=== PATIENT | female | born 1945 | race Caucasian/White ===

== ENCOUNTER 2016-08-11 05:49 | Outpatient (CLI) | payer MEDICARE ==
[~2016-08-11] VITALS: Ht 162.6 cm; Wt 63.5 kg
[~2016-08-11 05:49] MED LIST: AC325T PO; ALBU8.5H4 IH; ALBUTEROL INH; AMLO10TA4 PO; AMLO10TA82 PO; ASP325T PO; ASP325TEC; ASP81TEC PO; ASPI325T4 PO; ATR20T PO; BISO1TAB6; BPR75T PO; BUPR-168 PO; BUPR450T PO; CALC0.253 PO; CARB1TAB40; CARV12.53 PO; CARV6.25 PO; CHOL200035 PO; CHOL500019 PO; CHOL50003 PO; CLON-378 PO; CLOP75TA PO; CLPD75T PO; D50KC PO; DCS100C PO; DIPY75TA PO; DOXY100C2; ENDUR-ACIN PO; ERGO500028 PO; ESOM20SU; ESZO3TAB30 PO; FLC1T PO; FLT05NA16 NSEACH; FLUO40CA; FLUO40CA PO; FLUT16SP22 NSEACH; FOLATE PO; FURO20TA4 PO; HYDR-3583 PO; HYOS0.1217 PO; KCL20TCR; LRT10T PO; MIRT45TA5 PO; MNTL10T PO; MONT10TA21 PO; MRTZ30T1 PO; NEBI5TAB8; NF-ESOM40C PO; NFCHLORT25 PO; NIAC1CAP PO; NISO17TA; OMG1KC; PANT40TA PO; PNT400TCR PO; PNT40TEC PO; POLY17PO23 PO; PRAV10TA23; PRAV10TA23 PO; PRAV80TA2 PO; PROP1TAB2 PO; PROP1TAB77 PO; QUET150T PO; SERT50TA2 PO; SUCR1TAB; SULF1TAB7; SYMBICORT INH; TELM1TAB; TRAM-21 PO; TRAZ150T42; TRENTAL; VENL150C; VNL75T PO; ZLP10T PO; [UNRECOGNIZED DRUG - OTHER]; enduracin
[2016-08-11] MEDS ORDERED: AMLO5TAB2 PO (14:40)
[2016-08-11] MEDS ORDERED: CALC0.253 PO (14:40)
[2016-08-11] MEDS ORDERED: FLUO40CA PO (14:40)
[2016-08-11] MEDS ORDERED: NIAC500T24 PO (14:40)
[2016-08-11] MEDS ORDERED: LATA2.5D5 OU (14:40)
[2016-08-11] MEDS ORDERED: CLOP75TA28 PO (14:40)
[2016-08-11] MEDS ORDERED: PENT400T2 PO (14:40)
[2016-08-11] MEDS ORDERED: CARV25TA PO (14:40)
[2016-08-13] MEDS ORDERED: DEXL60CA PO (12:31)
[2016-08-13] MEDS ORDERED: SUCR1TAB36 PO (12:31)
== END 2016-08-11 14:46 ==
LOC: PREOP 05:49
PROVIDERS: ATTEND Surgery Pediatric Surgery
DX: Z01.818 Encounter for other preprocedural examination (principal); R63.4 Abnormal weight loss; Z86.010 Personal history of colon polyps; Z87.11 Personal history of peptic ulcer disease

== ENCOUNTER 2016-08-13 10:34 | Day surgery (SDC) | payer MEDICARE ==
[~2016-08-13] VITALS: Ht 162.6 cm; Wt 63.5 kg
[~2016-08-13 10:34] MED LIST changes: +AMLO5TAB2 PO; +CARV25TA PO; +CLOP75TA28 PO; +LATA2.5D5 OU; +NIAC500T24 PO; +PENT400T2 PO
[2016-08-13] MEDS ORDERED: HURRICAINE EXT TUBE (BENZOCAINE) XX PRN (10:45)
[2016-08-13] MEDS ORDERED: FLUMAZENIL (ROMAZICON) 0.1 MG/ML 5 ML VIAL INJ PRN (10:45)
[2016-08-13] MEDS ORDERED: LIDOCAINE JELLY 2% (XYLOCAINE) 5 ML TUBE MM PRN (10:45)
[2016-08-13] MEDS ORDERED: NALOXONE 0.4 MG/ML 1 ML (NARCAN) VIAL IVP PRN (10:45)
[2016-08-13] MEDS: NS IV 500 ML 500 ML IV PRN ×2 (10:57→11:30)
[2016-08-13 11:05] VITALS: BP 133/84
--- NOTE | 2016-08-13 11:17 | Conscious Sedation/ASA ---
Conscious Sedation Pre-Proced Time Reviewed: 11:00 ASA Class: 2 Airway Mallampati Classification: ([place] appropriate class) I. II. III, IV Lungs Heart ASA score ASA 1: a normal healthy patient ASA 2: a patient with a mild systemic disease (mid diabetes, controlled hypertension, obesity ASA 3: a patient with a severe systemic disease that limits activity (angina , COPD, prior Myocardial infarction) ASA 4: a patient with an incapacitating disease that is a constant threat to life (CHF, renal failure) ASA 5: a moribund patient not expected to survive 24 hrs. (ruptured aneurysm) ASA 6: a declared brain patient whose organs are being harvested. For emergent operations, add the letter E after the classification Grade 2 Sedation Plan: Analgesia, Amnesia, Plan communicated to team members, Discussed options with patient/fam, Discussed risks with patient/fam Note The patient is an appropriate candidate to undergo the planned procedure, sedation, and anesthesia. The patient immediately re-assessed prior to indication. NADIA BARTHOLOMEW MD August 13, 2016 11:17 am
--- NOTE | 2016-08-13 11:18 | Progress Note-Pre Operative ---
Pre-Operative Progress Note H&P Reviewed The H&P was reviewed, patient examined and no changes noted. Date H&P Reviewed: August 13, 2016 Time H&P Reviewed: 11:00 Pre-Operative Diagnosis: PUD, weight loss NADIA BARTHOLOMEW MD August 13, 2016 11:18 am
[2016-08-13] MEDS ORDERED: fentaNYL INJECTION 100 MCG/2 ML AMP ONE ×2 (11:21)
[2016-08-13] MEDS ORDERED: MIDAZOLAM 2 MG/2 ML (VERSED) VIAL ONE ×4 (11:21→12:00)
[2016-08-13] MEDS ORDERED: LIDOCAINE JELLY 2% (XYLOCAINE) 5 ML TUBE ONE (11:21)
[2016-08-13] MEDS ORDERED: HURRICAINE EXT TUBE (BENZOCAINE) ONE (11:22)
[2016-08-13] MEDS ORDERED: NS IV 500 ML 500 ML ONE (11:22)
[2016-08-13] MEDS: fentaNYL INJECTION 100 MCG/2 ML AMP IVP PRN ×4 (11:25→11:55)
[2016-08-13] MEDS ORDERED: ONDANSETRON 4 MG/2 ML (SDV) Z0FRAN IV PRN (11:30)
[2016-08-13] MEDS ORDERED: HYDROcodone/APAP 5 MG/325 MG (LORTAB) TAB PO PRN (11:30)
[2016-08-13] MEDS ORDERED: ACETAMINOPHEN 325 MG TABLET/CAPLET (TYLENOL) PO PRN (11:30)
[2016-08-13] MEDS ORDERED: morphine INJ 10 MG/ML 1ML (SYR OR VIAL) IV PRN (11:30)
[2016-08-13] MEDS: MIDAZOLAM 2 MG/2 ML (VERSED) VIAL IVP PRN ×4 (11:32→11:57)
--- NOTE | 2016-08-13 12:29 | Progress Note-Post Operative ---
Post-Operative Progess Note Surgeon (s)/Unit Manager (s) Surgeon NADIA BARTHOLOMEW MD Unit Manager: none Pre-Operative Diagnosis PUD, weight loss Post-Operative Diagnosis reflux esophagitis(class B), fundal wrap edema/mass, severe gastritis. chronic stage 2 ext and int hemorrhoids, mild-moderate sigmoid diverticulosis. Procedure & Operative Findings Date of Procedure 08/13/16 Procedure Performed/Findings EGD with bx. Colonoscopy Anesthesia Type GET Estimated Blood Loss Estimated blood loss (mL): minimal Specimens/Packing Specimens Removed GE jxn, fundal wrap mass, antrum NADIA BARTHOLOMEW MD August 13, 2016 12:29 pm
[2016-08-13] MEDS ORDERED: SUCR1TAB36 PO (12:31)
[2016-08-13] MEDS ORDERED: DEXL60CA PO (12:31)
--- NOTE | 2016-08-13 12:31 | Discharge Inst-Surgical ---
D/C Lap Instructions-KIDO New, Converted, or Re-Newed RX: RX on Chart Follow Up Appt in 4 weeks Activity as tolerated High Fiber Diet 25g or more per day Avoid Alcohol, Caffeine, Spicy [place] and Acid foods. Drink 64 fluid oz or more of fluids per day. Symptoms to Report: Fever over 101 degree F, Nausea/Vomiting If any problems/questions: Contact your physician or go to Emergency Room NADIA BARTHOLOMEW MD August 13, 2016 12:31 pm
[2016-08-13 12:40] VITALS: BP 125/73
[2016-08-13 13:10] VITALS: BP 127/73
[2016-08-13 13:19] VITALS: BP 133/84
--- NOTE | 2016-08-14 01:36 | OPERATIVE REPORT ---
DATE OF SERVICE: 08/13/2016 ATTENDING PRIMARY CARE PHYSICIAN: Dr. Oriana Watts PREOPERATIVE DIAGNOSES: Peptic ulcer disease, weight loss. POSTOPERATIVE DIAGNOSES: Reflux esophagitis class B, intact wrap, however, there was edema versus a mass identified at the fundal wrap location. Severe diffuse gastritis. Chronic stage II external and internal hemorrhoids, mild to moderate sigmoid diverticulosis. PROCEDURE: EGD with biopsy, colonoscopy. SURGEON: Dr. Nadia Bartholomew ANESTHESIA: Conscious sedation. ESTIMATED BLOOD LOSS: Minimal. FINDINGS EGD: Reflux esophagitis class B. Intact wrap; however, along the fundal wrap portion there appeared to be edema of the mucosa versus a mass, which was biopsied. There was also a severe diffuse gastritis; however, no formal ulcers. Pylorus and duodenum appeared normal. Colonoscopy: Chronic stage II external internal hemorrhoids. No actively edematous, not inflamed, and no bleeding. Mild to moderate sigmoid diverticulosis with no inflammatory changes. No polyps identified. DISPOSITION: The patient tolerated the procedure well. INDICATIONS: The patient is a 71-year-old female with fatigue and a 40-pound weight loss in the past 6 months. She had lab work done, which was normal. She reports that she did have a colonoscopy approximately 5 years ago and this was normal; however, previous colonoscopies did show a benign polyp in the past. She reports that she has had multiple issues with reflux as well as peptic ulcer disease. She also reports a history of duodenal ulcers. She did undergo a hiatal hernia repair with revision as well. The patient was brought to the endoscopy suite, laid in the left lateral decubitus position. After adequate IV pain and sedating medications and conscious sedation, anesthesia, the mouthpiece was applied. The endoscope was then placed in the mouth visualizing the pharynx and hypopharyngeal region. Vocal cords, epiglottis, and vallecula identified and appeared to be normal. The endoscope was then gently intubated in the esophageal opening, and the esophagus was insufflated. The endoscope was then advanced to the first, second, and third portions of the esophagus. At the level of the GE junction, reflux esophagitis class B identified. There were no strictures identified in this region. A biopsy was taken with forceps with visualization of good hemostasis. The endoscope was then advanced into the stomach and the endoscope retroflexed. There were anatomical changes consistent with a previous antireflux procedure. Of the fundal wrap portion, the mucosa appeared to be edematous or a mass was identified. This was biopsied using forceps with visualization of good hemostasis. A severe diffuse gastritis was also noted. There were no formal ulcers, polyps, or any neoplasms were identified. A biopsy was taken of the stomach, antrum with forceps with visualization of good hemostasis. The endoscope was then advanced to the pylorus and the first and second portions of the duodenum, which appeared normal with no distal obstructions. The endoscope was then slowly withdrawn taking a second look and suctioning of residual air with no additional findings. The patient tolerated this portion of the procedure well. We will recommend the necessary lifestyle and diet accommodation including small and more frequent meals, avoidance of eating at night as well as head elevation while lying supine. She also needs to avoid caffeinated beverages, spicy, greasy, and acidic foods. We will also start her on Dexilant 60 mg daily as well as Carafate 1 g q.i.d. for the next 2 weeks then on a p.r.n. basis. We will also await the biopsy results. Under the same conscious sedation anesthesia, we then proceeded with a colonoscopy portion of the procedure. Chronic stage II external and internal hemorrhoids were identified, which were not actively edematous, nor inflamed, and no bleeding. Normal sphincter tone was felt and there were no palpable masses. Then endoscope was then intubated into the anus and rectum, gently insufflated. The endoscope was then advanced to the valves of [place] of the rectum with no polyps or any neoplasms identified. Through the sigmoid colon, a mild to moderate sigmoid diverticulosis identified. There were no mucosal inflammatory changes to indicate any active diverticulitis. The endoscope was then advanced through the descending, transverse, and ascending colon to the cecum. These segments were normal. There were no polyps or any neoplasms identified throughout the colon or rectum. The endoscope was then slowly withdrawn while taking a second look and suctioning of residual air with no additional findings. The patient tolerated the procedure well. We will have her continue with medical management with a high fiber diet with at least 25 grams of fiber per day, as well as at least 64 fluid ounces of water daily to promote soft stools on a daily basis. No polyps were identified and she does not report any family history of colon cancer. She may wait for another 7 to 10 years for next colonoscopy unless she becomes symptomatic. Job ID: [id number] DocumentID: [id number] Dictated Date: 08/13/2016 12:22:32 Publications Production Supervisor Date: 08/14/2016 01:08:32 Dictated By: NADIA BARTHOLOMEW MD
== END 2016-08-13 13:18 | disposition home or self-care (01) ==
LOC: ENDO 10:34
PROVIDERS: ATTEND Surgery Pediatric Surgery
DX: K21.0 Gastro-esophageal reflux disease with esophagitis (principal); K29.70 Gastritis, unspecified, without bleeding; K57.30 Diverticulosis of large intestine without perforation or abscess without bleeding; K64.1 Second degree hemorrhoids; R63.4 Abnormal weight loss; Z86.010 Personal history of colon polyps; Z87.11 Personal history of peptic ulcer disease; E78.5 Hyperlipidemia, unspecified; I10 Essential (primary) hypertension

== ENCOUNTER 2016-09-05 19:57 | Observation (INO) | payer MEDICARE ==
[~2016-09-05] VITALS: Ht 162.6 cm; Wt 69.9 kg
[~2016-09-05 19:57] MED LIST changes: +DEXL60CA PO; +SUCR1TAB36 PO
--- NOTE | 2016-09-05 20:26 | ED General ---
General Stated Complaint: DISORIENTED,LATHARGIC Source of Information: Family (DAUGHTER GIVES ALL INFORMATION) Exam Limitations: Other (PT UNABLE TO GIVE ANY RELEVANT INFORMATION AT THIS TIME) History of Present Illness Time Seen by Provider: 20:25 Initial Comments PT ARRIVES VIA POV FROM HOME PT IS UNABLE TO GIVE ANY RELEVANT INFORMATION AT THIS TIME DAUGHTER STATES THAT SHE TALKED WITH PT ON PHONE LASE EVENING AND PATIENT APPEARED NORMAL THIS EVENING SHE WENT TO SEE HER, AND FOUND HER SITTING IN A CHAIR, PROFUSELY DIAPHORETIC, VERY CONFUSED/DISORIENTED AND VERY LETHARGIC PT HAS NO RECOLLECTION OF ANY OF TODAY'S EVENTS PT DID VOID JUST PRIOR TO ARRIVAL, PER DAUGHTER PT DENIES PAIN ANYWHERE DENIES SHORTNESS OF BREATH DENIES NAUSEA/VOMITING/DIARRHEA DENIES HEADACHE DENIES ABDOMINAL PAIN DENIES VISION CHANGES DENIES DIZZINESS DENIES PARESTHESIAS OR MOTOR DEFICITS. DAUGHTER STATES THAT PT HAS HAD 4 STROKES AND MULTIPLE TIA'S BUT THIS IS NOT SAME SYMPTOMS LAST CVA, PT HAD RESOLUTION OF RIGHT ARM WEAKNESS AFTER BEING GIVEN TPA PCP: DR. WILKINSON PHYSICAL MEDICINE SPECIALIST: DR. MARTINEZ Allergies and Home Medications Allergies Coded Allergies: No Known Drug Allergies (Verified , 09/08/12) Home Medications Amlodipine Besylate 5 Mg Tablet, 5 MG PO HS, (Reported) Aspirin 81 Mg Tabec, 81 MG PO HS, (Reported) Atorvastatin 20 Mg Tablet, 20 MG PO HS, (Reported) Calcitriol 0.25 Mcg Capsule, 0.25 MCG PO MO,WE,FR @ HS, (Reported) Carvedilol 25 Mg Tablet, 25 MG PO BID, (Reported) Clopidogrel Bisulfate 75 Mg Tablet, 75 MG PO DAILY, (Reported) Dexlansoprazole 60 Mg Cap.bp, 60 MG PO DAILY, #30 Prescribed by: NADIA BARTHOLOMEW on 08/13/16 1231 Fluoxetine HCl 40 Mg Capsule, 40 MG PO BID, (Reported) Latanoprost 2.5 Ml Drops, 1 DROP OU HS, (Reported) Montelukast Sodium 10 Mg Tablet, 10 MG PO HS, (Reported) Niacinamide 500 Mg Tablet, 500 MG PO BID, (Reported) Pantoprazole Sodium 40 Mg Tablet.dr, 40 MG PO HS, (Reported) Pentoxifylline 400 Mg Tablet.er, 400 MG PO DAILY, (Reported) Sucralfate 1 Gm Tablet, 1 GM PO QID, #120 Prescribed by: NADIA BARTHOLOMEW on 08/13/16 1231 Constitutional: see HPI, diaphoresis, malaise, weakness EENTM: no symptoms reported Respiratory: no symptoms reported, No cough, No short of breath Cardiovascular: no symptoms reported Gastrointestinal: no symptoms reported, No abdominal pain, No diarrhea, No nausea, No vomiting Genitourinary: no symptoms reported Musculoskeletal: no symptoms reported, No back pain, No joint pain, No muscle pain, No neck pain Skin: no symptoms reported Psychiatric/Neurological: See HPI, Denies Headache, Denies Numbness, Denies Paresthesia, Denies Seizure, Denies Tingling, Denies Tremors, Denies Weakness, Other (CONFUSION/DISORIENTED) Hematologic/Lymphatic: No Symptoms Reported Immunological/Allergic: no symptoms reported Past Tgmjuzp-Ntjbim-Mefxde Hx Patient Social History Alcohol Use: Denies Use Recreational Drug Use: No Smoking Status: Former Smoker (QUIT 10 YEARS AGO) Type Used: Cigarettes Recent Foreign Travel: No Contact w/Someone Who Travel: No Recent Hopitalizations: No Immunizations Up To Date Tetanus Booster (TDap): More than 5yrs PED Vaccines UTD: Yes Date of Pneumonia Vaccine: Nov 19, 2013 Date of Influenza Vaccine: Nov 19, 2013 Seasonal Allergies Seasonal Allergies: Yes Surgeries HX Surgeries: Yes (APPENDECTOMY, HIATAL HERNIA, GI bleed cauterized; COLONOSCOPY/EGD) Surgeries: Abdominal, Appendectomy, Tonsillectomy Respiratory Hx Respiratory Disorders: No Cardiovascular Hx Cardiac Disorders: Yes Cardiac Disorders: Heart Murmur, Hypertension Neurological Hx Neurological Disorders: Yes (CVA X 4, 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) Neurological Disorders: Stroke, TIA 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 System Hx 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 Disorders: No Sexually Transmitted Disease: No HIV/AIDS: No Female 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 Disorders: Denies [employer] History: Menopausal Genitourinary Hx Genitourinary Disorders: Yes (one "small kidney") Genitourinary Disorders: Renal Failure Gastrointestinal Hx Gastrointestinal Disorders: Yes Gastrointestinal Disorders: Gastroesophageal Reflux, Polyps, Hiatal Hernia, Ulcer Musculoskeletal Hx Musculoskeletal Disorders: Yes Musculoskeletal Disorders: Arthritis Endocrine Hx Endocrine Disorders: No HEENT HX ENT Disorders: Yes HEENT Disorders: Cataract, Glaucoma Hearing Impairment: Denies Cancer Hx Cancer: No Psychosocial Hx Psychiatric Problems: Yes Behavioral Health Disorders: Anxiety Integumentary HX Skin/Integumentary Disorder: No Blood Transfusions Hx Blood Disorders: Yes (Anemia) Adverse Reaction to a Blood Tr: No Family Medical History Family Medial History: FH: CVA (cerebrovascular accident) G8 BROTHER G8 SISTER FH: breast cancer 19 MOTHER FH: cancer 19 FATHER Hypertension 19 MOTHER Physical Exam Vital Signs Vital Sign - Last 12Hours 09/05/16 20:16 Temp 95.2 Pulse 61 Resp 18 B/P (MAP) 127/73 Pulse Ox 94 O2 Delivery Nasal Cannula O2 Flow Rate 2.00 Capillary Refill : General Appearance: No Apparent Distress, WD/WN, Other (PT SLEEPING SOUNDLY, SNORING AT TIMES. PT IS EASILY AWAKENED WITH VERBAL STIMULI, BUT IS VERY DROWSY/ LETHARGIC, GENERALIZED WEAKNESS--EVEN VOICE IS WEAK. ) HEENT: PERRL/EOMI Neck: Full Range of Motion, Normal Inspection, Non Tender, Supple, No JVD Respiratory: Normal Breath Sounds, No Accessory Muscle Use, No Respiratory Distress Cardiovascular: Regular Rate, Rhythm, No Edema, No JVD, No Murmur, Normal Peripheral Pulses Gastrointestinal: Normal Bowel Sounds, No Organomegaly, No Pulsatile Mass, Non Tender, Soft Back: No CVA Tenderness Extremity: Normal Capillary Refill, Normal Inspection, Normal Range of Motion, Non Tender, No Calf Tenderness, No Pedal Edema Neurologic/Psychiatric: No Motor/Sensory Deficits, pathology teacher II-XII Norm as Tested, Other ( ABOVE. PT ORIENTED TO PERSON, KNOWS SHE IS IN HOSPITAL, BUT CONFUSED TO DATE/TIME/EVENTS OF TODAY. ) Skin: Normal Color, Warm/Dry Focused Exam Lactic Acid Level Progress/Results/Core Measures Results/Orders Lab Results Laboratory Tests Test 09/05/16 20:54 09/05/16 20:58 09/05/16 21:34 09/05/16 22:40 Range/Units White Blood Count 10.7 4.3-11.0 10^3/uL Red Blood Count 4.27 L 4.35-5.85 10^6/uL Hemoglobin 13.6 11.5-16.0 G/DL Hematocrit 42 35-52 % Mean Corpuscular Volume 99 80-99 FL Mean Corpuscular Hemoglobin 32 25-34 PG Mean Corpuscular Hemoglobin Concent 32 32-36 G/DL Red Cell Distribution Width 12.4 10.0-14.5 % Platelet Count 149 130-400 10^3/uL Mean Platelet Volume 9.8 7.4-10.4 FL Neutrophils (%) (Auto) 76 H 42-75 % Lymphocytes (%) (Auto) 13 12-44 % Monocytes (%) (Auto) 9 0-12 % Eosinophils (%) (Auto) 1 0-10 % Basophils (%) (Auto) 0 0-10 % Neutrophils # (Auto) 8.2 H 1.8-7.8 X 10^3 Lymphocytes # (Auto) 1.4 1.0-4.0 X 10^3 Monocytes # (Auto) 1.0 0.0-1.0 X 10^3 Eosinophils # (Auto) 0.1 0.0-0.3 10^3/uL Basophils # (Auto) 0.0 0.0-0.1 10^3/uL Prothrombin Time 11.7 L 12.2-14.7 SEC INR Comment 0.9 0.8-1.4 Activated Partial Thromboplast Time 23 L 24-35 SEC Sodium Level 144 135-145 MMOL/L Potassium Level 3.5 L 3.6-5.0 MMOL/L Chloride Level 113 H 98-107 MMOL/L Carbon Dioxide Level 19 L 21-32 MMOL/L Anion Gap 12 5-14 MMOL/L Blood Urea Nitrogen 13 7-18 MG/DL Creatinine 1.33 H 0.60-1.30 MG/DL Estimat Glomerular Filtration Rate 39 BUN/Creatinine Ratio 10 0-20 Glucose Level 84 70-105 MG/DL Calcium Level 9.8 8.5-10.1 MG/DL Magnesium Level 2.1 1.8-2.4 MG/DL Total Bilirubin 0.7 0.1-1.0 MG/DL Aspartate Amino Transf (AST/SGOT) 25 5-34 U/L Alanine Aminotransferase (ALT/SGPT) 20 0-55 U/L Alkaline Phosphatase 110 40-136 U/L Total Creatine Kinase 103 29-168 U/L Creatine Kinase MB 2.4 <6.6 NG/ML Troponin I < 0.30 <0.30 NG/ML Total Protein 6.7 6.4-8.2 GM/DL Albumin 4.1 3.2-4.5 GM/DL TSH [place] Testing 0.59 0.35-4.94 UIU/ML Glucometer 99 70-110 MG/DL Lactic Acid Level 1.13 0.50-2.00 MMOL/L Urine Color YELLOW Urine Clarity CLEAR Urine pH 5 5-9 Urine Specific Gill 1.020 1.016-1.022 Urine Protein 3+ H NEGATIVE Urine Glucose (UA) NEGATIVE NEGATIVE Urine Ketones 1+ H NEGATIVE Urine Nitrite NEGATIVE NEGATIVE Urine Bilirubin 1+ H NEGATIVE Urine Urobilinogen 1 NORMAL MG/DL Urine Leukocyte Esterase 1+ H NEGATIVE Urine RBC (Auto) NEGATIVE NEGATIVE Urine RBC NONE /HPF Urine WBC NONE /HPF Urine Squamous Epithelial Cells 0-2 /HPF Urine Crystals NONE /LPF Urine Bacteria NEGATIVE /HPF Urine Casts NONE /LPF Urine Mucus NEGATIVE /LPF Urine Culture Indicated NO My Orders Orders - BOBO LINN DO Saline Lock/Iv-Start (09/05/16 20:25) Ekg Tracing (09/05/16 20:25) Monitor-Rhythm Ecg Trace Only (09/05/16 20:25) Cbc With Automated Diff (09/05/16 20:25) Comprehensive Metabolic Panel (09/05/16 20:25) Creatine Kinase (09/05/16 20:25) Creatine Kinase Mb (09/05/16 20:25) Lactic Acid Analyzer (09/05/16 20:25) Magnesium (09/05/16 20:25) Protime With Inr (09/05/16 20:25) Partial Thromboplastin Time (09/05/16 20:25) Thyroid Analyzer (09/05/16 20:25) Troponin I (09/05/16 20:25) Ua Culture If Indicated (09/05/16 20:25) Blood Culture (09/05/16 20:25) Chest 1 View, Ap/Pa Only (09/05/16 20:25) Accucheck Stat ONCE (09/05/16 20:40) O2 (09/05/16 20:40) Ct Head Wo (09/05/16 21:13) Saline Lock/Iv-Start (09/05/16 22:03) Ns Iv 1000 Ml (Sodium Chloride 0.9%) (09/05/16 22:03) Ceftriaxone Injection (Rocephin Injectio (09/05/16 23:30) Medications Given in ED Current Medications Medications Dose Ordered Sig/[place]nd[place] Route Start Time Stop Time Status Last Admin Dose Admin Sodium Chloride 1,000 ml @ 0 mls/hr Q0M ONCE IV 09/05/16 22:03 09/05/16 22:04 DC 09/05/16 22:12 0 MLS/HR Vital Signs/I&O Vital Sign - Last 12Hours 09/05/16 09/05/16 09/06/16 09/06/16 20:16 20:16 00:05 00:25 Temp 95.2 95.2 Pulse 61 61 Resp 18 18 B/P (MAP) 127/73 Pulse Ox 94 94 O2 Delivery Nasal Cannula Nasal Cannula Room Air O2 Flow Rate 2.00 2.00 09/06/16 09/06/16 09/06/16 09/06/16 00:47 01:00 02:00 03:53 Temp 96.8 97.3 Pulse 65 51 60 91 Resp 18 18 B/P (MAP) 137/66 109/58 Pulse Ox 96 98 O2 Delivery Room Air Room Air Progress Note : Progress Note PT DOES APPEAR MORE ALERT AFTER IV FLUIDS WERE GIVEN NO DETERIORATION IN PT'S CONDITION DURING ER STAY ECG Initial ECG Impression Time: 20:12 Initial ECG Rate: 56 Initial ECG Rhythm: Normal Sinus Initial ECG Comparisson: No Previous ECG Available Diagnostic Imaging Comments CT HEAD--NO ACUTE PROCESS, CHRONIC CHANGES, OLD INFARCTS CXR--POSSIBLE ATELECTASIS VS INFILTRATE LEFT BASE, CARDIOMEGALY WITH MILD VASCULAR CONGESTION PER RADIOLOGIST REPORTS Reviewed: Reviewed by Me Departure Communication Progress Notes [id number]--SPOKE WITH DR. WILLIS, ACCEPTS PT FOR ADMIT. Impression Impression: Primary Impression: Urinary tract infection Additional Impressions: Sepsis Altered mental status POSSIBLE PNEUMONIA Dehydration Generalized weakness Disposition: 09 ADMITTED INPATIENT Condition: Improved Decision to Admit Reason: Admit from ER (General) Decision to Admit/Date: Sep 05, 2016 Time/Decision to Admit Time: 23:25 Departure-Patient Inst. Referrals: TELLO WILKINSON MD (PCP) Primary Care Physician BOBO LINN DO Sep 05, 2016 20:26
[2016-09-05 20:59] LABS: BASOPHILS % (AUTO) 0 % (0-10); EOSINOPHILS # (AUTO) 0.1 10^3/uL (0.0-0.3); EOSINOPHILS % (AUTO) 1 % (0-10); LYMPHOCYTES # (AUTO) 1.4 X 10^3 (1.0-4.0); LYMPHOCYTES % (AUTO) 13 % (12-44); MEAN CORPUSCULAR HEMOGLOBIN 32 PG (25-34); MEAN CORPUSCULAR HGB CONC 32 G/DL (32-36); MEAN CORPUSCULAR VOLUME 99 FL (80-99); MEAN PLATELET VOLUME 9.8 FL (7.4-10.4); MONOCYTES % (AUTO) 9 % (0-12); NEUTROPHILS # (AUTO) 8.2 X 10^3 (1.8-7.8); NEUTROPHILS % (AUTO) 76 % (42-75); PLATELET COUNT 149 10^3/uL (130-400); RED BLOOD COUNT 4.27 10^6/uL (4.35-5.85); RED CELL DISTRIBUTION WIDTH 12.4 % (10.0-14.5); WHITE BLOOD COUNT 10.7 10^3/uL (4.3-11.0)
[2016-09-05 21:09] LABS: INR 0.9 (0.8-1.4); PROTHROMBIN TIME PATIENT 11.7 SEC (12.2-14.7)
[2016-09-05 21:20] LABS: ALANINE AMINOTRANSFERASE 20 U/L (0-55); ALBUMIN 4.1 GM/DL (3.2-4.5); ANION GAP 12 MMOL/L (5-14); ASPARTATE AMINO TRANSFERASE 25 U/L (5-34); BILIRUBIN,TOTAL 0.7 MG/DL (0.1-1.0); BLOOD UREA NITROGEN 13 MG/DL (7-18); BUN/CREATININE RATIO 10 (0-20); CALCIUM 9.8 MG/DL (8.5-10.1); CARBON DIOXIDE 19 MMOL/L (21-32); CHLORIDE 113 MMOL/L (98-107); CREATINE KINASE 103 U/L (29-168); CREATININE SERUM 1.33 MG/DL (0.60-1.30); GFR ESTIMATED 39; GLUCOSE 84 MG/DL (70-105); HEMOLYSIS 14 (-100-29); ICTERUS 0.6 (-100-1.9); LIPEMIA 11 (-100-49); MAGNESIUM 2.1 MG/DL (1.8-2.4); POTASSIUM 3.5 MMOL/L (3.6-5.0); SODIUM 144 MMOL/L (135-145); TOTAL PROTEIN 6.7 GM/DL (6.4-8.2)
[2016-09-05 21:40] LABS: TROPONIN I < 0.30 NG/ML (<0.30)
--- NOTE | 2016-09-05 21:52 | Diagnostic Imaging Report ---
INDICATION: Lethargy and disorientation. EXAMINATION: Chest, 09/05/2016. COMPARISON: 03/20/2014. FINDINGS: Heart is enlarged. Pulmonary vasculature is mildly prominent. There is bibasilar atelectasis versus mild infiltrate, especially at the left lung base. Small left effusion suspected. The remaining lungs appear to be clear. There is no pneumothorax. IMPRESSION: Likely infiltrate or atelectasis at the left lung base with small adjacent effusion. Cardiomegaly and pulmonary vascular congestion are also noted. Dictated by: Dictated on workstation # [id number]
[2016-09-05] MEDS ORDERED: NS IV 1000 ML 1,000 ML IV ONE (22:03)
--- NOTE | 2016-09-05 22:31 | Diagnostic Imaging Report ---
INDICATION: Lethargy, disoriented. EXAMINATION: CT brain without contrast, 09/05/2016. COMPARISON: CT brain dated 03/20/2014. FINDINGS: Diffuse encephalomalacia in the posterior aspect of the left parietal lobe is seen, consistent with previous infarct, stable from previous. Other changes of chronic ischemic disease are scattered throughout the periventricular distribution. Focal encephalomalacia within the posterior right parietal occipital lobe is stable as well. Mild hyperdensity is noted within the right caudate head which is vaguely present on previous imaging as well. No definite superimposed acute abnormalities are seen with no mass, mass effect or midline shift. No acute hemorrhage is noted. The sinuses appear clear. IMPRESSION: Diffuse chronic ischemic changes with no definite superimposed acute abnormality. If there is continued clinical question, followup imaging recommended. Dictated by: Dictated on workstation # [id number]
[2016-09-05 22:50] LABS: KETONES,URINE 1+ (NEGATIVE); LEUKOCYTE ESTERASE ,URINE 1+ (NEGATIVE); NITRITE,URINE NEGATIVE (NEGATIVE); PH,URINE 5 (5-9); PROTEIN,URINE 3+ (NEGATIVE); UROBILINOGEN,URINE 1 MG/DL (NORMAL)
[2016-09-05 23:04] LABS: BILIRUBIN,URINE 1+ (NEGATIVE)
[2016-09-05 23:05] LABS: SQUAMOUS EPITHELIAL CELL,UR 0-2 /HPF
[2016-09-05] MEDS ORDERED: cefTRIAXone INJECTION 1,000 MG in NS (IVPB) 50 ML IV ONE (23:30)
[2016-09-06] VITALS (7 sets, daily range): BP systolic 109–141; BP diastolic 58–66
[2016-09-06] MEDS ORDERED: cefTRIAXone 1 GM (ROCEPHIN) VIAL ONE
[2016-09-06] MEDS ORDERED: NS (IVPB) 50 ML ONE
[2016-09-06] MEDS ORDERED: ACETAMINOPHEN 500 MG TAB (TYLENOL) PO PRN (00:30)
[2016-09-06] MEDS: D5 1/2 NS W/KCL 10 MEQ/L 1,000 ML IV SCH ×3 (01:02→17:28)
[2016-09-06 05:40] LABS: BASOPHILS % (AUTO) 0 % (0-10); EOSINOPHILS # (AUTO) 0.1 10^3/uL (0.0-0.3); EOSINOPHILS % (AUTO) 1 % (0-10); LYMPHOCYTES # (AUTO) 1.3 X 10^3 (1.0-4.0); LYMPHOCYTES % (AUTO) 18 % (12-44); MEAN CORPUSCULAR HEMOGLOBIN 32 PG (25-34); MEAN CORPUSCULAR HGB CONC 33 G/DL (32-36); MEAN CORPUSCULAR VOLUME 99 FL (80-99); MEAN PLATELET VOLUME 9.9 FL (7.4-10.4); MONOCYTES # (AUTO) 0.7 X 10^3 (0.0-1.0); MONOCYTES % (AUTO) 10 % (0-12); NEUTROPHILS # (AUTO) 5.3 X 10^3 (1.8-7.8); NEUTROPHILS % (AUTO) 71 % (42-75); PLATELET COUNT 132 10^3/uL (130-400); RED BLOOD COUNT 3.95 10^6/uL (4.35-5.85); RED CELL DISTRIBUTION WIDTH 12.1 % (10.0-14.5); WHITE BLOOD COUNT 7.4 10^3/uL (4.3-11.0)
[2016-09-06 06:00] LABS: ALBUMIN 3.5 GM/DL (3.2-4.5); BILIRUBIN,TOTAL 0.4 MG/DL (0.1-1.0); CREATININE SERUM 1.18 MG/DL (0.60-1.30); ICTERUS 0.4 (-100-1.9); POTASSIUM 3.2 MMOL/L (3.6-5.0); TOTAL PROTEIN 5.5 GM/DL (6.4-8.2)
[2016-09-06] MEDS ORDERED: SUCR1TAB PO (08:37)
--- NOTE | 2016-09-06 08:46 | History & Physical-Hospitalist ---
HPI History of Present Illness: HPI/Chief Complaint Mrs. Welsh presented to the emergency room last night having been transported by her daughter with little recollection of the events of last evening. Her daughter apparently found her in her chair very diaphoretic and disoriented. She was slightly pale. She was still confused upon presentation to the emergency room where she reported an apparent negative review of systems. For me this morning she states that she occasionally has night sweats several times per week but can be drenching and has had a 40 pound weight loss over the past year without trying. She been happy about this knowing that she needed to lose the weight. She denied any associated fatigue chills or fever. Because of weight loss should undergone panendoscopy per Dr. BARTHOLOMEW on 18 August of this year. No cigarette pathology was noted on biopsy. There was a question for an extrinsic mass in the cardia of the stomach versus edema. The patient did have an intact fundoplication wrap without evidence for erosive esophagitis at that time. She denies heartburn or dysphasia. She also has had no abdominal pain or change in bowel habit. As she had moderate sigmoid diverticulosis with no evidence for significant neoplasia on colonoscopy. Daughter reports there was no loss of bowel or bladder control and the patient denies any oral pain or sores Date Seen 09/06/16 Time Seen by Provider: 07:30 Attending Physician Bright Parham M.D. PCP Oriana Watts MD Referring Physician Date of Admission Sep 05, 2016 at 23:25 Home Medications & Allergies Home Medications Reviewed patient Home Medication Reconciliation Form Allergies Allergies Coded Allergies No Known Drug Allergies (Verified09/08/12) Past Zaecufr-Dmndys-Wwsljc Hx Patient Social History Alcohol Use: Denies Use Recreational Drug Use: No Smoking Status: Former Smoker (QUIT 10 YEARS AGO) Type Used: Cigarettes Physical Abuse Screen: No Sexual Abuse: No Recent Foreign Travel: No Contact w/other who traveled: No Recent Hopitalizations: No Recent Infectious Disease Expo: No Immunizations Up To Date Tetanus Booster (TDap): More than 5yrs Date of Pneumonia Vaccine: Nov 19, 2013 Date of Influenza Vaccine: Nov 19, 2013 Seasonal Allergies Seasonal Allergies: Yes Surgeries HX Surgeries: Yes (APPENDECTOMY, HIATAL HERNIA, GI bleed cauterized; COLONOSCOPY/EGD) Surgeries: Abdominal, Appendectomy, Tonsillectomy Respiratory Hx Respiratory Disorders: No Cardiovascular Hx Cardiovascular Disorders: Yes Cardiac Disorders: Heart Murmur, Hypertension Neurological Hx Neurological Disorders: Yes (CVA X 4, 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) Neurological Disorders: Stroke, TIA 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 System Hx 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 Disorders: No Sexually Transmitted Disease: No HIV/AIDS: No Female 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 Disorders: Denies Genitourinary Hx Genitourinary Disorders: Yes (one "small kidney") Genitourinary Disorders: Renal Failure Gastrointestinal Hx Gastrointestinal Disorders: Yes Gastrointestinal Disorders: Gastroesophageal Reflux, Polyps, Hiatal Hernia, Ulcer Musculoskeletal Hx Musculoskeletal Disorders: Yes Musculoskeletal Disorders: Arthritis Endocrine Hx Endocrine Disorders: No HEENT HX ENT Disorders: Yes HEENT Disorders: Cataract, Glaucoma Hearing Impairment: Denies Cancer Hx Cancer: No Psychosocial Hx Psychiatric Problems: Yes Behavioral Health Disorders: Anxiety Integumentary HX Skin/Integumentary Disorder: No Blood Transfusions Hx Blood Disorders: Yes (Anemia) Adverse Reaction to a Blood Tr: No Family Medical History Family Hx: FH: CVA (cerebrovascular accident) G8 BROTHER G8 SISTER FH: breast cancer 19 MOTHER FH: cancer 19 FATHER Hypertension 19 MOTHER Review of Systems Date Seen by Provider: Sep 06, 2016 Time Seen by Provider: 07:30 Constitutional: weight loss, other (Sharon night sweats.) Physical Exam Physical Exam Vital Signs Vital Sign - Last 12Hours 09/05/16 20:16 Temp 95.2 Pulse 61 Resp 18 B/P (MAP) 127/73 Pulse Ox 94 O2 Delivery Nasal Cannula O2 Flow Rate 2.00 Capillary Refill : Less Than 3 Seconds General Appearance: No Apparent Distress, WD/WN Neck: Full Range of Motion, Normal Inspection, Non Tender, Supple, Carotid Bruit Respiratory: Chest Non Tender, Normal Breath Sounds, No Accessory Muscle Use, No Respiratory Distress, Other (rales clear with deep inspiration the left base. ) Cardiovascular: Regular Rate, Rhythm, No Edema, No Gallop, No JVD, No Murmur, Normal Peripheral Pulses Gastrointestinal: Normal Bowel Sounds, No Organomegaly, No Pulsatile Mass, Non Tender, Soft Extremity: Normal Capillary Refill, Normal Inspection, Normal Range of Motion, Non Tender, No Calf Tenderness, No Pedal Edema Neurologic/Psychiatric: Alert, Oriented x3 Results Results/Procedures Lab Laboratory Tests 09/05/16 20:54 09/06/16 05:25 Assessment/Plan Admission Diagnosis 1. Questionable pneumonia with secondary disorientation. Considering previous history of CVA cannot rule out the possibility of a postictal state although there is no evidence for oral trauma or reported incontinence. 2. Considering weight loss intermittent night sweats and the possibility of an extrinsic cardiac mass noted by Dr. BARTHOLOMEW we'll set the patient up for CT of the abdomen with and without contrast. 3. History of hypertension 4. History of hyperlipidemia. Clinical Quality Measures DVT/VTE Risk/Contraindication: Risk Factor Score Per Nursin RFS Level Per Nursing on Admit: 4+=Very High BRIGHT PARHAM MD Sep 06, 2016 08:45
[2016-09-06] MEDS ORDERED: PANTOPRAZOLE 40 MG (PROTONIX) TAB PO NR (08:47)
[2016-09-06] MEDS ORDERED: CLOPIDOGREL 75 MG (PLAVIX) TABLET PO SCH (09:00)
[2016-09-06] MEDS ORDERED: amLODIPine 5 MG (NORVASC) TAB PO SCH (09:00)
[2016-09-06] MEDS: ENOXAPARIN 40 MG/0.4 ML (LOVENOX) SYR SC SCH (10:04)
[2016-09-06] MEDS ORDERED: PATIENT MAY USE OWN MEDS, ALL MC SCH (13:15)
[2016-09-06] MEDS ORDERED: ATORVASTATIN 20 MG (LIPITOR) TABLET PO SCH ×2 (21:00)
[2016-09-06] MEDS ORDERED: cefTRIAXone INJECTION 1,000 MG in NS (IVPB) 50 ML IV SCH (23:00)
[2016-09-07] VITALS: BP 164/78
[2016-09-07] MEDS: D5 1/2 NS W/KCL 10 MEQ/L 1,000 ML IV SCH ×3 (03:24→12:29)
[2016-09-07 04:00] VITALS: BP 136/64
[2016-09-07] MEDS ORDERED: PANTOPRAZOLE 40 MG (PROTONIX) TAB PO SCH ×2 (07:00)
[2016-09-07 08:00] VITALS: BP 141/84
[2016-09-07] MEDS: ENOXAPARIN 40 MG/0.4 ML (LOVENOX) SYR SC SCH (08:35)
[2016-09-07] MEDS ORDERED: amLODIPine 5 MG (NORVASC) TAB PO SCH (09:00)
[2016-09-07] MEDS ORDERED: CLOPIDOGREL 75 MG (PLAVIX) TABLET PO SCH (09:00)
[2016-09-07] MEDS ORDERED: CATHETER FLUSH 10 ML SYR IV PRN (10:30)
[2016-09-07] MEDS ORDERED: IOHEXOL 350 MG/ML 100 ML (OMNIPAQUE 350) VIAL IV ONE (10:30)
[2016-09-07] MEDS ORDERED: NS 100 ML (IVPB) BAG IV ONE (10:30)
[2016-09-07] MEDS ORDERED: CEFD300C3 PO (11:46)
[2016-09-07 12:00] VITALS: BP 155/72
--- NOTE | 2016-09-07 14:20 | Diagnostic Imaging Report ---
PROCEDURE: CT abdomen with and without contrast. TECHNIQUE: Multiple contiguous axial CT images of the abdomen were obtained prior to and after intravenous administration of iodinated contrast. INDICATION: Weight loss. Extrinsic impression on the stomach seen on endoscopy. 75 mL of Omnipaque 350 is administered intravenously. FINDINGS: The lung bases demonstrate mild scarring. There is fullness near the gastroesophageal junction region with sutures seen perhaps related to prior fundoplication or other gastroesophageal junction surgery. Correlate with surgical history. There is a small to moderate hiatal hernia. There is thickening with soft tissue fullness around the gastroesophageal junction, presumably related to the surgery performed with no definitive discrete mass identified. The liver, the gallbladder, the spleen, the pancreas appear unremarkable. The adrenal glands demonstrate mild thickening bilaterally. No discrete nodule. This is probably related to adrenal hyperplasia. The kidneys have symmetric enhancement and excretion. The unenhanced phase demonstrates no stones. No hydronephrosis. A 1 cm nonenhancing lesion in the lower pole of the right kidney is compatible with a cyst. Other hypodensities in the kidneys too small to characterize seen. There is right convexity scoliosis with prominent degenerative changes seen. IMPRESSION: There is evidence of previous surgery at the gastroesophageal junction. A small to moderate hiatal hernia is also present. There is soft tissue fullness in this region without a discrete mass identified by CT. This is presumably related to postsurgical change. Correlate for possible history of fundoplication or other surgery. Dictated by: Dictated on workstation # [id number]
--- NOTE | 2016-09-08 13:54 | Discharge Summary-Hospitalist ---
Diagnosis/Chief Complaint Date of Admission Sep 05, 2016 at 23:25 Date of Discharge Sep 07, 2016 at 15:45 Discharge Date: Sep 07, 2016 Admission Diagnosis 1. Left lower lobe pneumonia with secondary disorientation. 2. History of hypertension 3. History of hyperlipidemia. Discharge Diagnosis As per above Reason Hospital Visit/Course Mrs. Welsh presented to the emergency room last night having been transported by her daughter with little recollection of the events of last evening. Her daughter apparently found her in her chair very diaphoretic and disoriented. She was slightly pale. She was still confused upon presentation to the emergency room where she reported an apparent negative review of systems. For me this morning she states that she occasionally has night sweats several times per week but can be drenching and has had a 40 pound weight loss over the past year without trying. She been happy about this knowing that she needed to lose the weight. She denied any associated fatigue chills or fever. Because of weight loss should undergone panendoscopy per Dr. BARTHOLOMEW on 18 August of this year. No cigarette pathology was noted on biopsy. There was a question for an extrinsic mass in the cardia of the stomach versus edema. The patient did have an intact fundoplication wrap without evidence for erosive esophagitis at that time. She denies heartburn or dysphasia. She also has had no abdominal pain or change in bowel habit. As she had moderate sigmoid diverticulosis with no evidence for significant neoplasia on colonoscopy. Daughter reports there was no loss of bowel or bladder control and the patient denies any oral pain or sores Hospital course patient was admitted started on IV fluids and Rocephin. By the following morning she was awake alert and back to baseline. She denied cough or chest congestion initially had a few rales in the left base with questionable infiltrate versus atelectasis. As her white count was the upper limits of normal with a mild left shift and she did have some low-grade Pitcher elevation 99.8 pneumonia was felt to be a likely cause. She had not taken any sedating medication and there have been no new medications or her report other than Carafate which she was having a great deal of difficulty swallowing. Panendoscopy records from Dr. BARTHOLOMEW were reviewed from 18 August of this year. Her biopsy with normal visual findings suggested erosive esophagitis. She did have findings of gastritis suggestive of chemical injury possibly nonsteroidal. No ulcerations were noted. She is to continue her proton pump inhibitor therapy and Carafate was discontinued. There was a question about an extrinsic mass affecting the cardia of the stomach. Considering this and the fact the patient had a 40 pound weight loss and intermittent night sweats a CT of the abdomen was obtained. Postsurgical changes of her fundoplication were noted but no evidence for adenopathy or other significant abnormalities were noted. She was discharged on home medications minus Carafate with the addition of Omnicef 300 mg twice a day for another 5 days. She was advised to follow-up with her primary care provider Dr. Tello Watts in the next 1-2 weeks. Considering the patient has a past history of several CVAs cannot rule out the possibility of a generalized seizure with postictal state. If the patient were to have another episode of altered mental status may need to look into workup for generalized seizure disorder. Patient did undergo CT head evaluation in the emergency room which revealed no acute changes but old findings palpable with several small lacunar infarcts. Discharge Summary Discharge Physical Examination Allergies: Coded Allergies: No Known Drug Allergies (Verified , 09/08/12) Vitals & I&Os Vital Signs Date Time Temp Pulse Resp B/P (MAP) Pulse Ox O2 Delivery O2 Flow Rate FiO2 09/07/16 15:33 09/07/16 13:00 60 09/07/16 12:00 99.0 20 99 Room Air 09/06/16 00:05 2.00 Hospital Course Labs (last 24 hrs) Microbiology 09/05/16 Blood Culture - Preliminary, Resulted No growth 09/05/16 Urine Culture - Final, Complete NO GROWTH Discharge Home Medications: Active Scripts Active Cefdinir 300 Mg Capsule 300 Mg PO BID 5 Days Reported Latanoprost 2.5 Ml Drops 1 Drop OU HS Fluoxetine HCl 40 Mg Capsule 40 Mg PO BID Clopidogrel (Clopidogrel Bisulfate) 75 Mg Tablet 75 Mg PO DAILY Pentoxifylline 400 Mg Tablet.er 400 Mg PO DAILY Carvedilol 25 Mg Tablet 25 Mg PO BID Amlodipine Besylate 5 Mg Tablet 5 Mg PO HS Calcitriol 0.25 Mcg Capsule 0.25 Mcg PO MOWEFR Singulair (Montelukast Sodium) 10 Mg Tablet 10 Mg PO HS Pantoprazole Sodium 40 Mg Tablet.dr 40 Mg PO HS Lipitor 20MG (Atorvastatin Calcium) 20 Mg Tablet 20 Mg PO HS Instructions to patient/family Please see electonic discharge instructions given to patient. Clinical Quality Measures DVT/VTE Risk/Contraindication: Risk Factor Score Per Nursin RFS Level Per Nursing on Admit: 4+=Very High Copy Copies To 1: TELLO WATTS MD, MARK D MD Sep 08, 2016 13:54
--- OUTSIDE RECORDS SUMMARY | 2016-09-08 17:41 | XMS REPORT | Continuity of Care Document ---
Author Author [facility] Organization [facility] Address Unknown Phone Unavailable Care Team Providers Care Strike Warfare/Missile Systems Officer Name Role Phone Watts, Oriana PCP [phone] Source Comments Some departments are not documenting in the electronic medical record. If you do not see the information that you expected, contact Release of Information in the Health Information Management department at [phone] for further assistance in locating additional records.[facility] Active Allergies and Adverse Reactions Not on File Current Medications Not on file Active Problems Not on file Social History Tobacco Use Types Packs/Day Years Used Date Never Assessed Last Filed Vital Signs Vital Sign Reading Time Taken Blood Pressure 156/74 10/13/2010 3:22 PM CDT Pulse 56 10/13/2010 3:22 PM CDT Temperature 36.4 C (97.5 F) 10/13/2010 11:14 AM CDT Respiratory Rate - - Height - - Weight 179.171 kg (395 lb) 10/13/2010 2:00 PM CDT Body Mass Index - - Oxygen Saturation 98% 10/13/2010 3:22 PM CDT Plan of Care Health Maintenance Due Date Last Done Comments Hepatitis C Screening 1945 Physical (Comprehensive) 01/31/1952 Exam Pertussis Vaccine 01/31/1956 Tetanus Vaccine 1962 Breast Cancer Screening 1985 Colorectal Cancer 1995 Screening Shingles Vaccine 2005 Osteoporosis Screening 2010 Prevnar/Pneumovax (#1) 2010 Influenza Vaccine 11/19/2016 Results from Last 3 Months Not on file
--- OUTSIDE RECORDS SUMMARY | 2016-09-08 17:45 | XMS REPORT | Continuity of Care Document ---
Author Author [facility] Organization [facility] Address Unknown Phone Unavailable Allergies Active Description Code Type Severity Reaction Onset Reported/Identified Relationship to Patient Clinical Status Yes NKDA NKDA Mild N/A 09/01/2008 Yes No Known Drug Allergies [id number] Drug Allergy Unknown N/ A 08/13/2016 Medications Problems Date Dx Coded Attending Type Code Diagnosis Diagnosed By 12/18/2009 Ot 272.4 12/18/2009 Ot 310.8 12/18/2009 Ot 311 12/18/2009 Ot 369.9 12/18/2009 Ot 434.91 12/18/2009 Ot 714.0 12/18/2009 Ot 729.1 12/18/2009 Ot 781.2 12/18/2009 Ot V12.54 12/18/2009 Ot V12.71 12/25/2009 Ot 272.0 12/25/2009 Ot 272.4 12/25/2009 Ot 311 12/25/2009 Ot 369.9 12/25/2009 Ot 401.9 12/25/2009 Ot 438.0 12/25/2009 Ot 438.89 12/25/2009 Ot 716.90 12/25/2009 Ot 729.1 12/25/2009 Ot 781.2 12/25/2009 Ot 781.8 12/25/2009 Ot V12.71 12/25/2009 Ot V57.1 12/25/2009 Ot V57.21 01/14/2010 Ot 401.9 01/14/2010 Ot 438.10 01/14/2010 Ot 438.7 01/14/2010 Ot V58.69 03/18/2010 Ot 272.4 03/18/2010 Ot 311 03/18/2010 Ot 401.9 03/18/2010 Ot 437.0 03/18/2010 Ot 714.0 03/18/2010 Ot 729.1 03/18/2010 Ot 780.79 03/18/2010 Ot V12.54 03/18/2010 Ot V58.63 03/18/2010 Ot V58.69 04/01/2010 Ot 438.0 04/01/2010 Ot 780.93 04/01/2010 Ot 780.97 04/01/2010 Ot 908.9 04/01/2010 Ot E929.0 04/01/2010 Ot V12.59 04/01/2010 Ot V57.3 04/20/2010 Ot 368.9 04/20/2010 Ot 438.89 04/20/2010 Ot V57.21 07/01/2010 Ot 438.0 07/01/2010 Ot 780.93 07/01/2010 Ot 780.97 07/01/2010 Ot 908.9 07/01/2010 Ot E929.0 07/01/2010 Ot V12.59 07/01/2010 Ot V57.3 10/05/2010 Ot 438.0 10/05/2010 Ot 780.93 10/05/2010 Ot 780.97 10/05/2010 Ot 908.9 10/05/2010 Ot E929.0 10/05/2010 Ot V12.59 10/05/2010 Ot V57.3 10/21/2010 Ot 438.0 10/21/2010 Ot 780.93 10/21/2010 Ot 780.97 10/21/2010 Ot 908.9 10/21/2010 Ot E929.0 10/21/2010 Ot V12.59 10/21/2010 Ot V57.3 06/22/2012 Ot 530.11 REFLUX ESOPHAGITIS 06/22/2012 Ot 553.3 DIAPHRAGMATIC HERNIA 06/22/2012 Ot 562.10 DIVERTICULOSIS COLON (W/O MENT OF HEMORR 06/22/2012 Ot V12.72 PERSONAL HISTORY OF COLONIC POLYPS 09/15/2012 CATRINA WOODS, ERNESTO Hernandez Ot 300.00 ANXIETY STATE NOS 09/15/2012 CATRINA WOODS, ERNESTO Hernandez Ot 530.11 REFLUX ESOPHAGITIS 10/26/2012 ERNESTO FRITZ MD Ot 530.11 REFLUX ESOPHAGITIS 10/26/2012 CATRINA WOODS, ERNESTO Hernandez Ot V45.89 POSTSURGICAL STATES NEC 03/22/2014 IWONA SINGH MD Ot 272.4 HYPERLIPIDEMIA NEC/NOS 03/22/2014 IWONA SINGH MD Ot 342.90 UNSPEC HEMIPLEGIA HEMIPARESIS UNSPEC S 03/22/2014 IWONA SINGH MD Ot 401.9 HYPERTENSION NOS 03/22/2014 FRANCISCO WOODS, IWONA Mckinney Ot 434.91 CEREBRAL ART OCCLUSION NOS W CEREBRAL IN 03/22/2014 FRANCISCO WOODS, IWONA Mckinney Ot 438.7 DISTURBANCES OF VISION 03/22/2014 FRANCISCO WOODS, IWONA Mckinney Ot 530.81 ESOPHAGEAL REFLUX 03/22/2014 FRANCISCO WOODS, IWONA Mckinney Ot V15.82 HISTORY OF TOBACCO USE 03/22/2014 FRANCISCO WOODS, IWONA Mckinney Ot V17.1 FAMILY HX-STROKE 03/22/2014 Ot 272.4 03/22/2014 Ot 401.9 03/22/2014 Ot 780.79 03/22/2014 Ot 285.9 03/22/2014 Ot 532.90 03/22/2014 Ot 285.9 03/22/2014 Ot 532.90 03/22/2014 Ot 401.9 03/22/2014 Ot 780.2 03/22/2014 Ot V12.54 03/22/2014 Ot 787.3 03/22/2014 Ot 789.00 03/22/2014 Ot 714.0 03/22/2014 Ot 786.05 03/22/2014 Ot V58.65 03/22/2014 Ot 276.50 03/22/2014 Ot 584.9 03/22/2014 Ot 443.9 03/22/2014 Ot 368.9 03/22/2014 Ot 438.89 03/22/2014 Ot V57.21 03/22/2014 Ot 397.0 03/22/2014 Ot 424.0 03/22/2014 Ot 782.3 03/22/2014 Ot V12.54 03/22/2014 Ot 397.0 03/22/2014 Ot 401.9 03/22/2014 Ot 424.0 03/22/2014 Ot 429.3 03/22/2014 Ot 782.3 03/22/2014 Ot 715.34 03/22/2014 Ot 272.4 03/22/2014 Ot 401.9 03/22/2014 Ot 429.2 03/22/2014 Ot 786.2 03/22/2014 Ot V15.82 03/22/2014 Ot V72.84 03/22/2014 CATRINA WOODS, ERNESTO Hernandez Ot V72.84 03/22/2014 CATRINA WOODS, ERNESTO Hernandez Ot 530.11 03/22/2014 CATRINA WOODS, ERNESTO S Ot 553.3 03/22/2014 CATRINA WOODS, ERNESTO S Ot 429.3 03/22/2014 CATRINA WOODS, ERNESTO S Ot 530.81 03/22/2014 CATRINA OWODS, ERNESTO S Ot V72.63 03/22/2014 CATRINA WOODS, ERNESTO S Ot V72.81 03/22/2014 CATRINA WOODS, ERNESTO S Ot V72.83 03/22/2014 CATRINA WOODS, ERNESTO S Ot V74.8 03/22/2014 CATRINA WOODS, ERNESTO S Ot V72.84 03/22/2014 CATRINA WOODS, ERNESTO S Ot 530.81 03/22/2014 CATRINA WOODS, ERNESTO S Ot V45.89 03/22/2014 CATRINA WOODS, ERNESTO S Ot V72.84 03/22/2014 CATRINA WOODS, ERNESTO S Ot 530.11 03/22/2014 CATRINA WOODS, ERNESTO S Ot V45.89 03/22/2014 CATRINA WOODS, ERNESTO S Ot V72.84 03/22/2014 LON PA, DAPHNIE Barnett Ot 272.4 03/22/2014 LON PA, DAPHNIE K Ot 397.0 03/22/2014 LON PA, DAPHNIE K Ot 401.9 03/22/2014 LON PA, DAPHNIE K Ot 424.0 03/22/2014 LON PA, DAPHNEI K Ot 786.09 03/22/2014 MINH WOODS, TELLO Razo Ot 585.3 03/26/2014 TAWANA WOODS, JERICA Vogel Ot 272.4 HYPERLIPIDEMIA NEC/NOS 03/26/2014 TAWANA WOODS, JERICA Vogel Ot 401.9 HYPERTENSION NOS 03/26/2014 TAWANA WOODS, JERICA Vogel Ot 438.20 LATE EFF-CEREBR DIS,HEMIPLEGIA AFFECTING 03/26/2014 TAWANA WOODS, JERICA Vogel Ot 438.83 FACIAL WEAKNESS 03/26/2014 TAWANA WOODS, JERICA Vogel Ot V15.82 HISTORY OF TOBACCO USE 03/26/2014 JERICA GILLIAM MD Ot V17.1 FAMILY HX-STROKE 03/26/2014 JERICA GILLIAM MD Ot V57.89 REHABILITATION PROC NEC 04/10/2014 MICHELLE WOODS, DOMI Munoz Ot 272.4 HYPERLIPIDEMIA NEC/NOS 04/10/2014 DOMI MARTINEZ MD Ot 403.90 HYPTNSV CHR KID DIS, UNSPEC, W CHR KD ST 04/10/2014 DOMI MARTINEZ MD Ot 424.0 MITRAL VALVE DISORDER 04/10/2014 DOMI MARTINEZ MD Ot 434.91 CEREBRAL ART OCCLUSION NOS W CEREBRAL IN 04/10/2014 DOMI MARTINEZ MD Ot 585.9 CHRONIC KIDNEY DISEASE, UNSPECIFIED 04/10/2014 DOMI MARTINEZ MD Ot 714.0 RHEUMATOID ARTHRITIS 04/10/2014 DOMI MARTINEZ MD Ot 729.1 MYALGIA AND MYOSITIS NOS 04/10/2014 DOMI MARTINEZ MD Ot 745.5 SECUNDUM ATRIAL SEPT DEF 04/10/2014 DOMI MARTINEZ MD Ot V15.82 HISTORY OF TOBACCO USE 04/10/2014 DOMI MARTINEZ MD Ot V58.69 OTH MED,LT,CURRENT USE 04/16/2014 TELLO WILKINSON MD Ot V12.54 PERSONAL HX OF TIA, CEREBRAL INFARCTION 04/16/2014 MINH WOODS, TELLO Razo Ot V57.1 PHYSICAL THERAPY NEC 04/23/2014 TELLO WILKINSON MD Ot 438.89 04/23/2014 TELLO WILKINSON MD Ot V57.21 04/25/2014 TELLO WILKINSON MD Ot 438.89 OTH LATE EFFECT-CEREBROVASCULAR DISEASE 04/25/2014 TELLO WILKINSON MD Ot V57.21 ENCOUNTER FOR OCCUPATIONAL THERAPY 06/25/2015 Ot 443.9 06/25/2015 Ot 368.9 06/25/2015 Ot 438.89 06/25/2015 Ot V57.21 06/25/2015 Ot 397.0 06/25/2015 Ot 424.0 06/25/2015 Ot 782.3 06/25/2015 Ot V12.54 06/25/2015 Ot 397.0 06/25/2015 Ot 401.9 06/25/2015 Ot 424.0 06/25/2015 Ot 429.3 06/25/2015 Ot 782.3 06/25/2015 Ot 715.34 06/25/2015 Ot 272.4 06/25/2015 Ot 401.9 06/25/2015 Ot 429.2 06/25/2015 Ot 786.2 06/25/2015 Ot V15.82 06/25/2015 Ot V72.84 06/25/2015 CATRINA WOODS, ERNESTO S Ot V72.84 06/25/2015 CATRINA WOODS, ERNESTO S Ot 530.11 06/25/2015 CATRINA WOODS, ERNESTO S Ot 553.3 06/25/2015 CATRINA WOODS, ERNESTO S Ot 429.3 06/25/2015 CATRINA WOODS, ERNESTO S Ot 530.81 06/25/2015 CATRINA WOODS, ERNESTO S Ot V72.63 06/25/2015 CATRINA WOODS, ERNESTO S Ot V72.81 06/25/2015 CATRINA WOODS, ERNESTO S Ot V72.83 06/25/2015 CATRINA WOODS, ERNESTO S Ot V74.8 06/25/2015 CATRINA WOODS, ERNESTO S Ot V72.84 06/25/2015 CATRINA WOODS, ERNESTO S Ot 530.81 06/25/2015 CATRINA WOODS, ERNESTO S Ot V45.89 06/25/2015 CATRINA WOODS, ERNESTO S Ot V72.84 06/25/2015 CATRINA WOODS, ERNESTO S Ot 530.11 06/25/2015 CATRINA WOODS, ERNESTO S Ot V45.89 06/25/2015 CATRINA WOODS, ERNESTO S Ot V72.84 06/25/2015 LON PA, DAPHNIE Barnett Ot 272.4 06/25/2015 LON PA, DAPHNIE Barnett Ot 397.0 06/25/2015 LON PADAPHNIE Ot 401.9 06/25/2015 LON PA, DAPHNIE Barnett Ot 424.0 06/25/2015 LON PA, DAPHNIE Barnett Ot 786.09 06/25/2015 MINH WOODS, TELLO Razo Ot 585.3 06/26/2015 MICHELLE WOODS, DOMI Munoz Ot E78.5 06/26/2015 MICHELLE WOODS, DOMI Munoz Ot I10 06/26/2015 MICHELLE WOODS, DOMI Munoz Ot I63.9 06/26/2015 MICHELLE WOODS, DOMI Munoz Ot I73.9 07/08/2015 MICHELLE WOODS, DOMI Munoz Ot E78.5 HYPERLIPIDEMIA, UNSPECIFIED 07/08/2015 MICHELLE WOODS, DOMI Munoz Ot I10 ESSENTIAL (PRIMARY) HYPERTENSION 07/08/2015 MICHELLE WOODS, DOMI Munoz Ot I63.9 CEREBRAL INFARCTION, UNSPECIFIED 07/08/2015 DOMI MARTINEZ MD Ot I73.9 PERIPHERAL VASCULAR DISEASE, UNSPECIFIED 08/11/2016 NADIA BARTHOLOMEW MD, Ot R63.4 ABNORMAL WEIGHT LOSS 08/11/2016 NADIA BARTHOLOMEW MD, Ot Z01.818 ENCOUNTER FOR OTHER PREPROCEDURAL EXAMIN 08/11/2016 NADIA BARTHOLOMEW MD, Ot Z86.010 PERSONAL HISTORY OF COLONIC POLYPS 08/11/2016 NADIA BARTHOLOMEW MD, Ot Z87.11 PERSONAL HISTORY OF PEPTIC ULCER DISEASE 08/13/2016 NADIA BARTHOLOMEW MD Ot E78.5 HYPERLIPIDEMIA, UNSPECIFIED 08/13/2016 NADIA BARTHOLOMEW MD Ot I10 ESSENTIAL (PRIMARY) HYPERTENSION 08/13/2016 NADIA BARTHOLOMEW MD Ot K21.0 GASTRO-ESOPHAGEAL REFLUX DISEASE WITH ES 08/13/2016 NADIA BARTHOLOMEW MD Ot K29.70 GASTRITIS, UNSPECIFIED, WITHOUT BLEEDING 08/13/2016 NADIA BARTHOLOMEW MD Ot 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 LG INT W/O PERFORATION OR AB 08/13/2016 NADIA BARTHOLOMEW MD Ot K64.1 SECOND DEGREE HEMORRHOIDS 08/13/2016 NADIA BARTHOLOMEW MD Ot R63.4 ABNORMAL WEIGHT LOSS 08/13/2016 NADIA BARTHOLOMEW MD Ot Z86.010 PERSONAL HISTORY OF COLONIC POLYPS 08/13/2016 NADIA BARTHOLOMEW MD, Ot Z87.11 PERSONAL HISTORY OF PEPTIC ULCER DISEASE 08/18/2016 NADIA BARTHOLOMEW MD Ot E78.5 HYPERLIPIDEMIA, UNSPECIFIED 08/18/2016 NADIA BARTHOLOMEW MD Ot I10 ESSENTIAL (PRIMARY) HYPERTENSION 08/18/2016 NADIA BARTHOLOMEW MD Ot K21.0 GASTRO-ESOPHAGEAL REFLUX DISEASE WITH ES 08/18/2016 NADIA BARTHOLOMEW MD Ot K29.70 GASTRITIS, UNSPECIFIED, WITHOUT BLEEDING 08/18/2016 NADIA BARTHOLOMEW MD Ot 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 LG INT W/O PERFORATION OR AB 08/18/2016 NADIA BARTHOLOMEW MD Ot K64.1 SECOND DEGREE HEMORRHOIDS 08/18/2016 NADIA BARTHOLOMEW MD Ot R63.4 ABNORMAL WEIGHT LOSS 08/18/2016 NADIA BARTHOLOMEW MD Ot Z86.010 PERSONAL HISTORY OF COLONIC POLYPS 08/18/2016 NADIA BARTHOLOMEW MD, Ot Z87.11 PERSONAL HISTORY OF PEPTIC ULCER DISEASE 09/05/2016 NADIA BARTHOLOMEW MD Ot E78.5 HYPERLIPIDEMIA, UNSPECIFIED 09/05/2016 NADIA BARTHOLOMEW MD Ot I10 ESSENTIAL (PRIMARY) HYPERTENSION 09/05/2016 NADIA BARTHOLOMEW MD, Ot K21.0 GASTRO-ESOPHAGEAL REFLUX DISEASE WITH ES 09/05/2016 NADIA BARTHOLOMEW MD, Ot K29.70 GASTRITIS, UNSPECIFIED, WITHOUT BLEEDING 09/05/2016 NADIA BARTHOLOMEW MD, Ot 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 LG INT W/O PERFORATION OR AB 09/05/2016 NADIA BARTHOLOMEW MD, Ot K64.1 SECOND DEGREE HEMORRHOIDS 09/05/2016 NADIA BARTHOLOMEW MD Ot R63.4 ABNORMAL WEIGHT LOSS 09/05/2016 NADIA BARTHOLOMEW MD, Ot Z86.010 PERSONAL HISTORY OF COLONIC POLYPS 09/05/2016 NADIA BARTHOLOMEW MD, Ot Z87.11 PERSONAL HISTORY OF PEPTIC ULCER DISEASE 09/06/2016 Ot 715.34 LOC OSTEOARTH NOS-HAND 09/06/2016 Ot 272.4 HYPERLIPIDEMIA NEC/NOS 09/06/2016 Ot 401.9 HYPERTENSION NOS 09/06/2016 Ot 429.2 ASCVD 09/06/2016 Ot 786.2 COUGH 09/06/2016 Ot V15.82 HISTORY OF TOBACCO USE 09/06/2016 Ot V72.84 EXAM PRE-OPERATIVE NOS 09/06/2016 ERNESTO FRITZ MD Ot V72.84 EXAM PRE-OPERATIVE NOS 09/06/2016 ERNESTO FRITZ MD Ot 530.11 REFLUX ESOPHAGITIS 09/06/2016 ERNESTO FRITZ MD Ot 553.3 DIAPHRAGMATIC HERNIA 09/06/2016 ERNESTO FRITZ MD Ot 429.3 CARDIOMEGALY 09/06/2016 ERNESTO FRITZ MD Ot 530.81 ESOPHAGEAL REFLUX 09/06/2016 ERNESTO FRITZ MD Ot V72.63 PRE-PROCEDURAL LABORATORY EXAMINATION 09/06/2016 ERNESTO FRITZ MD Ot V72.81 WNEA-NYI-SDNJJFLXA CARDIOVASCULAR 09/06/2016 ERNESTO FRITZ MD Ot V72.83 EXAM PRE-OPERATIVE NEC 09/06/2016 CATRINA WOODS, ERNESTO S Ot V74.8 SCREEN-BACTERIAL DIS NEC 09/06/2016 CATRINA WOODS, ERNESTO S Ot V72.84 EXAM PRE-OPERATIVE NOS 09/06/2016 CATRINA WOODS, ERNESTO S Ot 530.81 ESOPHAGEAL REFLUX 09/06/2016 CATRINA WOODS, ERNESTO S Ot V45.89 POSTSURGICAL STATES NEC 09/06/2016 ERNESTO FRITZ MD Ot V72.84 EXAM PRE-OPERATIVE NOS 09/06/2016 CATRINA WOODS, ERNESTO S Ot 530.11 REFLUX ESOPHAGITIS 09/06/2016 CATRINA WOODS, ERNESTO Hernandez Ot V45.89 POSTSURGICAL STATES NEC 09/06/2016 CATRINA WOODS, ERNESTO Hernandez Ot V72.84 EXAM PRE-OPERATIVE NOS 09/06/2016 DAPHNIE ODELL Ot 272.4 HYPERLIPIDEMIA NEC/NOS 09/06/2016 DAPHNIE ODELL Ot 397.0 TRICUSPID VALVE DISEASE 09/06/2016 DAPHNIE ODELL Ot 401.9 HYPERTENSION NOS 09/06/2016 DAPHNIE ODELL Ot 424.0 MITRAL VALVE DISORDER 09/06/2016 DAPHNIE ODELL Ot 786.09 RESPIRATORY ABNORM NEC 09/06/2016 MINH WOODS, TELLO Razo Ot 585.3 CHRONIC KIDNEY DISEASE, STAGE III (MODER 09/06/2016 DOMI MARTINEZ MD Ot E78.5 HYPERLIPIDEMIA, UNSPECIFIED 09/06/2016 DOMI MARTINEZ MD Ot I10 ESSENTIAL (PRIMARY) HYPERTENSION 09/06/2016 DOMI MARTINEZ MD Ot I63.9 CEREBRAL INFARCTION, UNSPECIFIED 09/06/2016 DOMI MARTINEZ MD Ot I73.9 PERIPHERAL VASCULAR DISEASE, UNSPECIFIED Procedures Code Description Performed By Performed On 45.13 OTHER ENDOSCOPY OF SM INTEST 01/15/2009 99.10 INJECT/INFUSE THROMBOLYTIC AGENT 03/20/2014 Results Test Result Range Complete blood count (CBC) with automated white blood cell (WBC) differential - 09/05/16 20:54 Blood leukocytes automated count (number/volume) 10.7 10*3/ uL 4.3-11.0 Blood erythrocytes automated count (number/volume) 4.27 10*6 /uL 4.35-5.85 Venous blood hemoglobin measurement (mass/volume) 13.6 g/dL 11.5-16.0 Blood hematocrit (volume fraction) 42 % 35-52 Automated erythrocyte mean corpuscular volume 99 [foz_us] 80-99 Automated erythrocyte mean corpuscular hemoglobin (mass per erythrocyte) 32 pg 25-34 Automated erythrocyte mean corpuscular hemoglobin concentration measurement ( mass/volume) 32 g/dL 32-36 Automated erythrocyte distribution width ratio 12.4 % 10.0-14.5 Automated blood platelet count (count/volume) 149 10*3/uL 130-400 Automated blood platelet mean volume measurement 9.8 [foz_us ] 7.4-10.4 Automated blood neutrophils/100 leukocytes 76 % 42-75 Automated blood lymphocytes/100 leukocytes 13 % 12-44 Blood monocytes/100 leukocytes 9 % 0-12 Automated blood eosinophils/100 leukocytes 1 % 0-10 Automated blood basophils/100 leukocytes 0 % 0-10 Blood neutrophils automated count (number/volume) 8.2 10*3 1.8-7.8 Blood lymphocytes automated count (number/volume) 1.4 10*3 1.0-4.0 Blood monocytes automated count (number/volume) 1.0 10*3 0.0-1.0 Automated eosinophil count 0.1 10*3/uL 0.0-0.3 Automated blood basophil count (count/volume) 0.0 10*3/uL 0.0-0.1 PT panel in platelet poor plasma by coagulation assay - 09/05/16 20:54 Prothrombin time (PT) in platelet poor plasma by coagulation assay 11.7 s 12.2-14.7 INR in platelet poor plasma or blood by coagulation assay 0.9 0.8-1.4 Activated partial thromboplastin time (aPTT) in platelet poor plasma bycoagulation assay - 09/05/16 20:54 Activated partial thromboplastin time (aPTT) in platelet poor plasma bycoagulation assay 23 s 24-35 Comprehensive metabolic panel - 09/05/16 20:54 Serum or plasma sodium measurement (moles/volume) 144 mmol/ L 135-145 Serum or plasma potassium measurement (moles/volume) 3.5 mmol/L 3.6-5.0 Serum or plasma chloride measurement (moles/volume) 113 mmol /L 98-107 Carbon dioxide 19 mmol/L 21-32 Serum or plasma anion gap determination (moles/volume) 12 mmol/L 5-14 Serum or plasma urea nitrogen measurement (mass/volume) 13 mg/dL 7-18 Serum or plasma creatinine measurement (mass/volume) 1.33 mg /dL 0.60-1.30 Serum or plasma urea nitrogen/creatinine mass ratio 10 0-20 Serum or plasma creatinine measurement with calculation of estimated glomerular filtration rate 39 NRG Serum or plasma glucose measurement (mass/volume) 84 mg/dL 70-105 Serum or plasma calcium measurement (mass/volume) 9.8 mg/dL 8.5-10.1 Serum or plasma total bilirubin measurement (mass/volume) 0.7 mg/dL 0.1-1.0 Serum or plasma alkaline phosphatase measurement (enzymatic activity/volume) 110 U/L 40-136 Serum or plasma aspartate aminotransferase measurement (enzymatic activity/ volume) 25 U/L 5-34 Serum or plasma alanine aminotransferase measurement (enzymatic activity/volume ) 20 U/L 0-55 Serum or plasma protein measurement (mass/volume) 6.7 g/dL 6.4-8.2 Serum or plasma albumin measurement (mass/volume) 4.1 g/dL 3.2-4.5 Magnesium - 09/05/16 20:54 Magnesium 2.1 mg/dL 1.8-2.4 Serum or plasma creatine kinase measurement (enzymatic activity/volume) - 09/05 20:54 Serum or plasma creatine kinase measurement (enzymatic activity/volume) 103 U/L 29-168 Serum or plasma creatine kinase MB measurement (enzymatic activity/volume) - 20:54 Serum or plasma creatine kinase MB measurement (enzymatic activity/volume) 2.4 ng/mL <6.6 Serum or plasma troponin i.cardiac measurement (mass/volume) - 09/05/16 20:54 Serum or plasma troponin i.cardiac measurement (mass/volume) < ng/mL <0.30 Serum or plasma thyrotropin measurement by detection limit <=0.05 miu/l (units/ volume) - 09/05/16 20:54 Serum or plasma thyrotropin measurement by detection limit <=0.05 miu/l (units/ volume) 0.59 u[iU]/mL 0.35-4.94 Capillary blood glucose measurement by glucometer (mass/volume) - 09/05/16 20: 58 Capillary blood glucose measurement by glucometer (mass/volume) 99 mg/dL 70-110 Blood lactic acid measurement (moles/volume) - 09/05/16 21:34 Blood lactic acid measurement (moles/volume) 1.13 mmol/L 0.50-2.00 Bacterial blood culture - 09/05/16 21:34 Bacterial blood culture NG NRG Bacterial blood culture - 09/05/16 21:35 Bacterial blood culture NG NRG Complete urinalysis with reflex to culture - 09/05/16 22:40 Urine color determination YELLOW NRG Urine clarity determination CLEAR NRG Urine pH measurement by test strip 5 5- 9 Specific gravity of urine by test strip 1.020 1.016-1.022 Urine protein assay by test strip, semi-quantitative 3+ NEGATIVE Urine glucose detection by automated test strip NEGATIVE NEGATIVE Erythrocytes detection in urine sediment by light microscopy NEGATIVE NEGATIVE Urine ketones detection by automated test strip 1+ NEGATIVE Urine nitrite detection by test strip NEGATIVE NEGATIVE Urine total bilirubin detection by test strip 1+ NEGATIVE Urine urobilinogen measurement by automated test strip (mass/volume) 1 mg/dL NORMAL Urine leukocyte esterase detection by dipstick 1+ NEGATIVE Automated urine sediment erythrocyte count by microscopy (number/high power field) NONE NRG Automated urine sediment leukocyte count by microscopy (number/high power field ) NONE NRG Bacteria detection in urine sediment by light microscopy NEGATIVE NRG Squamous epithelial cells detection in urine sediment by light microscopy 0-2 NRG Crystals detection in urine sediment by light microscopy NONE NRG Casts detection in urine sediment by light microscopy NONE NRG Mucus detection in urine sediment by light microscopy NEGATIVE NRG Complete urinalysis with reflex to culture NO NRG Bacterial urine culture - 09/05/16 22:40 Bacterial urine culture NG NRG Complete blood count (CBC) with automated white blood cell (WBC) differential - 09/06/16 05:25 Blood leukocytes automated count (number/volume) 7.4 10*3/ uL 4.3-11.0 Blood erythrocytes automated count (number/volume) 3.95 10*6 /uL 4.35-5.85 Venous blood hemoglobin measurement (mass/volume) 12.8 g/dL 11.5-16.0 Blood hematocrit (volume fraction) 39 % 35-52 Automated erythrocyte mean corpuscular volume 99 [foz_us] 80-99 Automated erythrocyte mean corpuscular hemoglobin (mass per erythrocyte) 32 pg 25-34 Automated erythrocyte mean corpuscular hemoglobin concentration measurement ( mass/volume) 33 g/dL 32-36 Automated erythrocyte distribution width ratio 12.1 % 10.0-14.5 Automated blood platelet count (count/volume) 132 10*3/uL 130-400 Automated blood platelet mean volume measurement 9.9 [foz_us ] 7.4-10.4 Automated blood neutrophils/100 leukocytes 71 % 42-75 Automated blood lymphocytes/100 leukocytes 18 % 12-44 Blood monocytes/100 leukocytes 10 % 0-12 Automated blood eosinophils/100 leukocytes 1 % 0-10 Automated blood basophils/100 leukocytes 0 % 0-10 Blood neutrophils automated count (number/volume) 5.3 10*3 1.8-7.8 Blood lymphocytes automated count (number/volume) 1.3 10*3 1.0-4.0 Blood monocytes automated count (number/volume) 0.7 10*3 0.0-1.0 Automated eosinophil count 0.1 10*3/uL 0.0-0.3 Automated blood basophil count (count/volume) 0.0 10*3/uL 0.0-0.1 Comprehensive metabolic panel - 09/06/16 05:25 Serum or plasma sodium measurement (moles/volume) 143 mmol/ L 135-145 Serum or plasma potassium measurement (moles/volume) 3.2 mmol/L 3.6-5.0 Serum or plasma chloride measurement (moles/volume) 114 mmol /L 98-107 Carbon dioxide 20 mmol/L 21-32 Serum or plasma anion gap determination (moles/volume) 9 mmol/L 5-14 Serum or plasma urea nitrogen measurement (mass/volume) 13 mg/dL 7-18 Serum or plasma creatinine measurement (mass/volume) 1.18 mg /dL 0.60-1.30 Serum or plasma urea nitrogen/creatinine mass ratio 11 0-20 Serum or plasma creatinine measurement with calculation of estimated glomerular filtration rate 45 NRG Serum or plasma glucose measurement (mass/volume) 168 mg/dL 70-105 Serum or plasma calcium measurement (mass/volume) 9.0 mg/dL 8.5-10.1 Serum or plasma total bilirubin measurement (mass/volume) 0.4 mg/dL 0.1-1.0 Serum or plasma alkaline phosphatase measurement (enzymatic activity/volume) 91 U/L 40-136 Serum or plasma aspartate aminotransferase measurement (enzymatic activity/ volume) 20 U/L 5-34 Serum or plasma alanine aminotransferase measurement (enzymatic activity/volume ) 16 U/L 0-55 Serum or plasma protein measurement (mass/volume) 5.5 g/dL 6.4-8.2 Serum or plasma albumin measurement (mass/volume) 3.5 g/dL 3.2-4.5 Encounters ACCT No. Visit Date/Time Discharge Status Pt. Type Provider Facility Loc./Unit Complaint [id number] 08/13/2016 10:34:00 2016 13:18:00 DIS Outpatient NADIA BARTHOLOMEW MD [facility] ENDO WEIGHT LOSS/HX POLYPS [id number] 08/11/2016 05:49:00 2016 14:46:00 DIS Outpatient NADIA BARTHOLOMEW MD [facility] PREOP WEIGHT LOSS/HX POLYPS [id number] 04/11/2014 14:55:00 2014 10:55:00 DIS Outpatient TELLO WILKINSON MD [facility] REHAB CVA [id number] 04/16/2014 14:19:00 2014 15:13:00 DIS Outpatient TELLO WILKINSON MD [facility] REHAB CVA [id number] 04/10/2014 07:45:00 2014 12:42:00 DIS Outpatient DOMI MARTINEZ MD [facility] CATH CVA,CAROTID STENOSIS,HTN,HLP [id number] 03/22/2014 11:32:00 2014 11:45:00 DIS Inpatient JERICA GILLIAM MD [facility] IRF IRF-CVA [id number] 03/20/2014 14:40:00 2014 11:00:00 DIS Inpatient IWONA SINGH MD [facility] ICU CVA RIGHT SIDED WEAKNESS [id number] 12/12/2013 08:09:00 2013 23:59:59 CLS Outpatient TELLO WILKINSON MD [facility] RAD CKD 3 [id number] 11/07/2013 10:45:00 2013 23:59:59 CLS Outpatient DAPHNIE ODELL Ericka [facility] CARD CAROTID ARTERY STENOSIS,HTN ,HLP,DYSPNEA [id number] 07/19/2013 07:02:00 2013 23:59:59 CLS Outpatient ERNESTO FRITZ MD [facility] GERD [id number] 07/11/2013 07:29:00 2013 23:59:59 CLS Outpatient ERNESTO FRITZ MD [facility] PREOP GERD [id number] 12/28/2012 08:03:00 2012 23:59:59 CLS Outpatient ERNESTO FRITZ MD [facility] REFLUX [id number] 12/27/2012 07:12:00 2012 23:59:59 CLS Outpatient ERNESTO FRITZ MD [facility] PREOP REFLUX [id number] 10/26/2012 07:07:00 2012 11:35:00 DIS Outpatient ERNESTO FRITZ MD [facility] GERD [id number] 10/25/2012 07:22:00 2012 23:59:59 CLS Outpatient ERNESTO FRITZ MD [facility] PREOP GERD [id number] 09/13/2012 07:30:00 2012 17:27:00 DIS Outpatient ERNESTO FRITZ MD [facility] GASTROESOPHAGEAL REFLUX DISEASE [id number] 09/08/2012 12:15:00 2012 23:59:59 CLS Outpatient ERNESTO FRITZ MD [facility] PREOP GERD [id number] 08/31/2012 07:17:00 2012 23:59:59 CLS Outpatient ERNESTO FRITZ MD [facility] GERD [id number] 08/30/2012 07:17:00 2012 23:59:59 CLS Outpatient ERNESTO FRITZ MD [facility] PREOP GERD [id number] 09/05/2016 23:25:00 ACT Inpatient SANDY WILLIS DO [facility] 4TH GENERALIZED WEAKNESS; ALTERED MENTAL STATUS; UTI [id number] 06/25/2015 09:00:00 ACT Outpatient DOMI MARTINEZ MD [facility] CARD CAD,CLAUDICATIONS, HTN HLP CVA [id number] 03/22/2014 15:43:00 Document Registration [id number] 03/22/2014 15:43:00 Document Registration [id number] 03/22/2014 15:43:00 Document Registration [id number] 03/22/2014 15:43:00 Document Registration [id number] 06/22/2012 08:16:00 Document Registration [id number] 06/21/2012 08:10:00 Document Registration [id number] 02/16/2012 13:08:00 Document Registration [id number] 12/29/2011 10:50:00 Document Registration [id number] 11/25/2011 11:45:00 Document Registration [id number] 12/18/2010 10:24:00 Document Registration [id number] 10/20/2010 13:35:00 Document Registration [id number] 09/28/2010 10:33:00 Document Registration [id number] 09/24/2010 13:48:00 Document Registration [id number] 06/18/2010 12:28:00 Document Registration [id number] 04/21/2010 00:00:00 Document Registration [id number] 04/14/2010 13:40:00 Document Registration [id number] 03/30/2010 13:42:00 Document Registration [id number] 03/27/2010 10:20:00 Document Registration [id number] 03/17/2010 19:50:00 Document Registration [id number] 01/14/2010 19:10:00 Document Registration [id number] 12/18/2009 10:20:00 Document Registration [id number] 12/16/2009 09:23:00 Document Registration [id number] 09/22/2009 10:14:00 Document Registration [id number] 09/11/2009 09:36:00 Document Registration [id number] 08/25/2009 09:20:00 Document Registration [id number] 07/30/2009 11:44:00 Document Registration [id number] 02/26/2009 11:04:00 Document Registration [id number] 01/22/2009 16:12:00 Document Registration [id number] 12/28/2008 16:48:00 Document Registration [id number] 10/16/2008 09:11:00 Document Registration
--- OUTSIDE RECORDS SUMMARY | 2016-09-09 09:05 | XMS REPORT | Continuity of Care Document ---
Author Author [facility] Organization [facility] Address Unknown Phone Unavailable Care Team Providers Care Arabic Professor Name Role Phone Watts, Oriana PCP [phone] Source Comments Some departments are not documenting in the electronic medical record. If you do not see the information that you expected, contact Release of Information in the Health Information Management department at [phone] for further assistance in locating additional records.[facility] Active Allergies and Adverse Reactions Not on [...]
--- OUTSIDE RECORDS SUMMARY | 2016-09-09 09:09 | XMS REPORT | Continuity of Care Document ---
Author Author [facility] Organization [facility] Address Unknown Phone Unavailable Allergies Active Description Code Type Severity Reaction Onset Reported/Identified Relationship to Patient Clinical Status Yes NKDA NKDA Mild N/A 09/01/2008 Yes No Known Drug Allergies [id number] Drug Allergy Unknown N/ A 08/13/2016 Medications [...] 530.81 03/22/2014 CATRINA WOODS, ERNESTO S Ot V72.63 03/22/2014 CATRINA WOODS, [...] DAPHNIE K Ot 424.0 03/22/2014 LON PA, DAPHNIE K Ot 786.09 03/22/2014 MINH WOODS, TELLO [...] EXAMINATION 09/06/2016 ERNESTO FRITZ MD Ot V72.81 [id number] CARDIOVASCULAR 09/06/2016 ERNESTO FRITZ MD Ot V72.83 [...] Status Pt. Type Provider Facility Loc./Unit Complaint [id number] 09/05/2016 23:25:00 2016 15:45:00 DIS Inpatient LAZARO ALEXANDER SANDY [facility] 4TH GENERALIZED WEAKNESS; ALTERED MENTAL STATUS; UTI [id number] 08/13/2016 10:34:00 2016 13:18:00 DIS Outpatient NADIA BARTHOLOMEW MD [facility] ENDO WEIGHT LOSS/HX POLYPS [id number] 08/11/2016 05:49:00 2016 14:46:00 DIS Outpatient NADIA BARTHOLOMEW MD [facility] PREOP WEIGHT LOSS/HX POLYPS [id number] 04/11/2014 14:55:00 2014 10:55:00 DIS Outpatient TELLO WILKINSON MD [facility] REHAB CVA [id number] 04/16/2014 14:19:00 2014 15:13:00 DIS Outpatient TELLO WILKINSON MD [facility] REHAB CVA [id number] 04/10/2014 07:45:00 2014 12:42:00 DIS Outpatient DOMI MARTINEZ MD [facility] CATH CVA,CAROTID STENOSIS,HTN,HLP [id number] 03/22/2014 11:32:00 2014 11:45:00 DIS Inpatient JERICA GILLIAM MD [facility] IRF IRF-CVA [id number] 03/20/2014 14:40:00 2014 11:00:00 DIS Inpatient IWONA SINGH MD [facility] ICU CVA RIGHT SIDED WEAKNESS [id number] 12/12/2013 08:09:00 2013 23:59:59 CLS Outpatient MINH WOODS, TELLO Razo [facility] RAD CKD 3 [id number] 11/07/2013 10:45:00 2013 23:59:59 CLS Outpatient DAPHNIE ODELL [facility] CARD CAROTID ARTERY STENOSIS,HTN ,HLP,DYSPNEA [id number] 07/19/2013 07:02:00 2013 23:59:59 CLS Outpatient ERNESTO FRITZ MD [facility] GERD [id number] 07/11/2013 07:29:00 2013 23:59:59 CLS Outpatient ERNESTO FRITZ MD [facility] PREOP GERD [id number] 12/28/2012 08:03:00 2012 23:59:59 [facility] [id number] 12/27/2012 07:12:00 2012 23:59:59 CLS Outpatient ERNESTO FRITZ MD [facility] PREOP REFLUX [id number] 10/26/2012 07:07:00 2012 11:35:00 DIS Outpatient ERNESTO FRITZ MD [facility] GERD [id number] 10/25/2012 07:22:00 2012 23:59:59 CLS Outpatient ERNSETO FRITZ MD [facility] PREOP GERD [id number] 09/13/2012 07:30:00 2012 17:27:00 DIS Outpatient ERNESTO FRITZ MD [facility] GASTROESOPHAGEAL REFLUX DISEASE [id number] 09/08/2012 12:15:00 2012 23:59:59 CLS Outpatient ERNESTO FRITZ MD [facility] PREOP GERD [id number] 08/31/2012 07:17:00 2012 23:59:59 CLS Outpatient ERNESTO FRITZ MD [facility] GERD [id number] 08/30/2012 07:17:00 2012 23:59:59 CLS Outpatient CATRINA WOODS, ERNESTO Hernandez [facility] PREOP GERD [id number] 06/25/2015 09:00:00 ACT Outpatient MICHELLE WOODS, DOMI Munoz [facility] CARD CAD,CLAUDICATIONS, HTN HLP CVA [id number] 03/22/2014 15:43:00 Document Registration [id number] 03/22/2014 15:43:00 Document Registration [id number] 03/22/2014 15:43:00 Document Registration [id number] 03/22/2014 15:43:00 Document Registration [id number] 06/22/2012 08:16:00 Document Registration [id number] 06/21/2012 08:10:00 Document Registration [id number] 02/16/2012 13:08:00 Document Registration [id number] 12/29/2011 10:50:00 Document Registration [id number] 11/25/2011 11:45:00 Document Registration [id number] 12/18/2010 10:24:00 Document Registration [id number] 10/20/2010 13:35:00 Document Registration [id number] 09/28/2010 10:33:00 Document Registration [id number] 09/24/2010 13:48:00 Document Registration [id number] 06/18/2010 12:28:00 Document Registration [id number] 04/21/2010 00:00:00 Document Registration [id number] 04/14/2010 13:40:00 Document Registration [id number] 03/30/2010 13:42:00 Document Registration [id number] 03/27/2010 10:20:00 Document Registration [id number] 03/17/2010 19:50:00 Document Registration [id number] 01/14/2010 19:10:00 Document Registration [id number] 12/18/2009 10:20:00 Document Registration [id number] 12/16/2009 09:23:00 Document Registration [id number] 09/22/2009 10:14:00 Document Registration [id number] 09/11/2009 09:36:00 Document Registration [id number] 08/25/2009 09:20:00 Document Registration [id number] 07/30/2009 11:44:00 Document Registration [id number] 02/26/2009 11:04:00 Document Registration [id number] 01/22/2009 16:12:00 Document Registration [id number] 12/28/2008 16:48:00 Document Registration [id number] 10/16/2008 09:11:00 Document Registration
== END 2016-09-07 15:45 | disposition home or self-care (01) ==
LOC: ER 19:57 → 4TH 23:25
PROVIDERS: ADMIT Internal Medicine; ATTEND Internal Medicine
DX: J18.9 Pneumonia, unspecified organism (principal); E86.0 Dehydration; R41.0 Disorientation, unspecified; I10 Essential (primary) hypertension; E78.5 Hyperlipidemia, unspecified; R63.4 Abnormal weight loss; K21.9 Gastro-esophageal reflux disease without esophagitis; N19 Unspecified kidney failure; F41.9 Anxiety disorder, unspecified; D64.9 Anemia, unspecified; R61 Generalized hyperhidrosis; Z86.73 Personal history of transient ischemic attack (TIA), and cerebral infarction without residual deficits; Z79.82 Long term (current) use of aspirin; Z79.899 Other long term (current) drug therapy; Z87.891 Personal history of nicotine dependence
CPT/HCPCS: 36415; 51701; 70450; 71010; 74170; 80053; 81000; 82550; 82553; 82962; 83605; 83735; 84443; 84484; 85025; 85610; 85730; 87040; 87088; 93041; G0378

== ENCOUNTER 2017-01-02 14:31 | Inpatient (IN) | payer MEDICARE ==
[2017-01-02] VITALS (7 sets, daily range): BP systolic 113–155; BP diastolic 55–103
[~2017-01-02] VITALS: Ht 162.6 cm; Wt 67.4 kg
[~2017-01-02 14:31] MED LIST changes: +CEFD300C3 PO; +SUCR1TAB PO
--- OUTSIDE RECORDS SUMMARY | 2017-01-02 14:35 | XMS REPORT | Clinical Summary ---
Author Author [facility] Organization [facility] Address Unknown Phone Unavailable Care Team Providers Care Mri Technologist Name Role Phone PCP Unavailable Source Comments Some departments are not documenting in the electronic medical record. If you do not see the information that you expected, contact Release of Information in the Health Information Management department at [phone] for further assistance in locating additional records.[facility] Allergies Not on File Current Medications Not on file Active Problems Not on file Social History Tobacco Use Types Packs/Day Years Used Date Never Assessed Sex Assigned at Date Recorded Not on file Last Filed Vital Signs Vital Sign Reading Time Taken Blood Pressure 156/74 10/13/2010 3:22 PM CDT Pulse 56 10/13/2010 3:22 PM CDT Temperature 36.4 C (97.5 F) 10/13/2010 11:14 AM CDT Respiratory Rate - - Oxygen Saturation 98% 10/13/2010 3:22 PM CDT Inhaled Oxygen - - Concentration Weight 179.2 kg (395 lb) 10/13/2010 2:00 PM CDT Height - - Body Mass Index - - Plan of Treatment Health Maintenance Due Date Last Done Comments HEPATITIS C SCREENING 1945 PHYSICAL (COMPREHENSIVE) 01/31/1952 EXAM PERTUSSIS VACCINE 01/31/1956 TETANUS VACCINE 1962 BREAST CANCER SCREENING 1985 COLORECTAL CANCER 1995 SCREENING SHINGLES VACCINE 2005 OSTEOPOROSIS SCREENING 2010 PREVNAR/PNEUMOVAX (#1) 2010 INFLUENZA VACCINE 10/19/2016 Results Not on filefrom Last 3 Months
[2017-01-02 14:56] LABS: BASOPHILS % (AUTO) 1 % (0-10); EOSINOPHILS # (AUTO) 0.2 10^3/uL (0.0-0.3); EOSINOPHILS % (AUTO) 3 % (0-10); LYMPHOCYTES # (AUTO) 1.2 X 10^3 (1.0-4.0); LYMPHOCYTES % (AUTO) 21 % (12-44); MEAN CORPUSCULAR HEMOGLOBIN 32 PG (25-34); MEAN CORPUSCULAR HGB CONC 33 G/DL (32-36); MEAN CORPUSCULAR VOLUME 98 FL (80-99); MEAN PLATELET VOLUME 10.4 FL (7.4-10.4); MONOCYTES # (AUTO) 0.5 X 10^3 (0.0-1.0); MONOCYTES % (AUTO) 9 % (0-12); NEUTROPHILS % (AUTO) 67 % (42-75); PLATELET COUNT 142 10^3/uL (130-400); RED BLOOD COUNT 3.98 10^6/uL (4.35-5.85); RED CELL DISTRIBUTION WIDTH 13.2 % (10.0-14.5); WHITE BLOOD COUNT 5.9 10^3/uL (4.3-11.0)
[2017-01-02 15:04] LABS: INR 0.9 (0.8-1.4); PROTHROMBIN TIME PATIENT 12.2 SEC (12.2-14.7)
[2017-01-02 15:14] LABS: POTASSIUM 3.4 MMOL/L (3.6-5.0); SODIUM 143 MMOL/L (135-145)
[2017-01-02 15:15] LABS: ALANINE AMINOTRANSFERASE 20 U/L (0-55); ALBUMIN 3.8 GM/DL (3.2-4.5); ANION GAP 10 MMOL/L (5-14); ASPARTATE AMINO TRANSFERASE 23 U/L (5-34); BILIRUBIN,TOTAL 0.7 MG/DL (0.1-1.0); BLOOD UREA NITROGEN 15 MG/DL (7-18); BUN/CREATININE RATIO 11; CALCIUM 9.3 MG/DL (8.5-10.1); CARBON DIOXIDE 22 MMOL/L (21-32); CHLORIDE 111 MMOL/L (98-107); CREATININE SERUM 1.33 MG/DL (0.60-1.30); GFR ESTIMATED 39; GLUCOSE 121 MG/DL (70-105); TOTAL PROTEIN 6.4 GM/DL (6.4-8.2)
--- NOTE | 2017-01-02 15:16 | Diagnostic Imaging Report ---
Procedure: CT head without contrast, r/o stroke. Technique: Unenhanced CT imaging of the head was performed. Indication: Headache, blurred vision. Comparison: 09/05/16. Findings: No hyperdense hemorrhage. Large region of encephalomalacia in the right parietal lobe is unchanged, compatible with infarct. No evidence of acute territorial infarct. Periventricular and subcortical white matter hypoattenuation is unchanged and compatible with chronic microvascular ischemic disease. No hydrocephalus or midline shift. No acute calvarial abnormality. Paranasal sinuses and mastoid air cells are clear. Impression: 1. No acute intracranial hemorrhage or evidence of acute territorial infarct. 2. 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 Dictated by: Dictated on workstation # [id number]
[2017-01-02] MEDS ORDERED: ALTEPLASE 100 MG/VIAL (ACTIVASE) IV ONE (15:18)
--- NOTE | 2017-01-02 15:18 | Diagnostic Imaging Report ---
INDICATION: Headache with vision problems. COMPARISON: 09/05/16. TECHNIQUE: Single view of the chest was obtained. FINDINGS: Stable cardiomegaly. Visible lungs are clear. Normal pulmonary vasculature. No pleural effusion or pneumothorax. IMPRESSION: Stable cardiomegaly without acute cardiopulmonary process by portable radiography. Dictated by: Dictated on workstation # [id number]
[2017-01-02 15:20] LABS: TROPONIN I < 0.30 NG/ML (<0.30)
[2017-01-02 15:46] LABS: BILIRUBIN,URINE NEGATIVE (NEGATIVE); KETONES,URINE NEGATIVE (NEGATIVE); LEUKOCYTE ESTERASE ,URINE 1+ (NEGATIVE); NITRITE,URINE NEGATIVE (NEGATIVE); PH,URINE 6 (5-9); PROTEIN,URINE 2+ (NEGATIVE); UROBILINOGEN,URINE 1 MG/DL (NORMAL)
[2017-01-02 15:58] LABS: WBC,URINE 0-2 /HPF
--- NOTE | 2017-01-02 16:06 | ED Neurological Problem ---
General Chief Complaint: Neuro-Stroke Like Symptoms Stated Complaint: HEADACHE/VISION ISSUES Nursing Triage Note: ARRIVED VIA AMB TO ROOM 08 WITH COMPLAINTS OF HEADACHE AND BLURRED VISION STARTING AT APPX 1345 Nursing Sepsis Screen: No Definite Risk Source: patient, old records Exam Limitations: no limitations History of Present Illness Time seen by provider: 14:35 Initial Comments This 71-year-old woman presents to the emergency room with complaints of sudden onset of vision changes that started at approximately 13:45. She has difficulty characterizing these vision changes but states that portions of her vision same absent but the remaining portions appear fairly clear. She is having difficulty focusing. Both eyes seem to be affected. Stroke activation was paged during initial assessment. She does have a history of multiple CVAs including a CVA affecting her right side for which she received TPA with good results. She denies any other acute neurologic deficits at this time. Allergies and Home Medications Allergies Coded Allergies: No Known Drug Allergies (Verified , 09/08/12) Home Medications Amlodipine Besylate 5 Mg Tablet, 5 MG PO HS, (Reported) Atorvastatin 20 Mg Tablet, 20 MG PO HS, (Reported) Calcitriol 0.25 Mcg Capsule, 0.25 MCG PO MoWeFr, (Reported) Carvedilol 25 Mg Tablet, 25 MG PO BID, (Reported) Cefdinir 300 Mg Capsule, 300 MG PO BID for 5 Days, #10 Prescribed by: ROBERT FAIRBANKS on 09/07/16 1146 Clopidogrel Bisulfate 75 Mg Tablet, 75 MG PO DAILY, (Reported) Fluoxetine HCl 40 Mg Capsule, 40 MG PO BID, (Reported) Latanoprost 2.5 Ml Drops, 1 DROP OU HS, (Reported) Montelukast Sodium 10 Mg Tablet, 10 MG PO HS, (Reported) Pantoprazole Sodium 40 Mg Tablet.dr, 40 MG PO HS, (Reported) Pentoxifylline 400 Mg Tablet.er, 400 MG PO DAILY, (Reported) Constitutional: no symptoms reported Eyes: See HPI Ears, Nose, Mouth, Throat: no symptoms reported Respiratory: no symptoms reported Cardiovascular: no symptoms reported Gastrointestinal: no symptoms reported Genitourinary: no symptoms reported : No Musculoskeletal: no symptoms reported Skin: no symptoms reported Psychiatric/Neurological: See HPI Endocrine: No Symptoms Reported Hematologic/Lymphatic: No Symptoms Reported Past Ytakwcc-Ohbhjl-[facility] Hx Patient Social History Alcohol Use: Occasionally Uses Recreational Drug Use: No Smoking Status: Former Smoker Type Used: Cigarettes Former Smoker, Quit: August 12, 1999 Recent Foreign Travel: No Contact w/Someone Who Travel: No Recent Infectious Disease Expo: No Recent Hopitalizations: No Immunizations Up To Date Tetanus Booster (TDap): More than 5yrs PED Vaccines UTD: Yes Date of Pneumonia Vaccine: Nov 19, 2013 Date of Influenza Vaccine: Nov 19, 2013 Seasonal Allergies Seasonal Allergies: Yes Surgeries History of Surgeries: Yes (APPENDECTOMY, HIATAL HERNIA, GI bleed cauterized) Surgeries: Abdominal, Appendectomy, Eye Surgery (cataracts), Tonsillectomy Respiratory History of Respiratory Disorde: No Currently Using CPAP: No Currently Using BIPAP: No Cardiovascular History of Cardiac Disorders: Yes (small PFO) Cardiac Disorders: Heart Murmur, Hypertension, Valvular Heart Disease (aortic sclerosis) Neurological History of Neurological Disord: Yes Neurological Disorders: Stroke, TIA 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 System : No Hx 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 Disorders: No Sexually Transmitted Disease: No HIV/AIDS: No Female 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 Disorders: Denies 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: 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 Genitourinary History of Genitourinary Disor: Yes Genitourinary Disorders: Renal Failure Gastrointestinal History of Gastrointestinal Di: Yes Gastrointestinal Disorders: Gastroesophageal Reflux, Polyps, Hiatal Hernia, Ulcer Musculoskeletal History of Musculoskeletal Dis: Yes Musculoskeletal Disorders: Arthritis Endocrine History of Endocrine Disorders: No HEENT History of HEENT Disorders: Yes HEENT Disorders: Cataract, Glaucoma Hearing Impairment: Denies Cancer History of Cancer: No Psychosocial History of Psychiatric Problem: Yes Behavioral Health Disorders: Anxiety Integumentary History of Skin or Integumenta: No Blood Transfusions History of Blood Disorders: Yes (Anemia) Adverse Reaction to a Blood Tr: No Family Medical History Family Medial History: FH: CVA (cerebrovascular accident) G8 BROTHER G8 SISTER FH: breast cancer 19 MOTHER FH: cancer 19 FATHER Hypertension 19 MOTHER Physical Exam Vital Signs Vital Sign - Last 12Hours 01/02/17 14:35 Temp 96.8 Pulse 74 Resp 18 B/P (MAP) 136/81 Pulse Ox 98 Capillary Refill : Less Than 3 Seconds General Appearance: WD/WN, mild distress HEENT: PERRL/EOMI, normal ENT inspection, pharynx normal, other Neck: normal inspection Respiratory: lungs clear, normal breath sounds, no respiratory distress, no accessory muscle use Cardiovascular: regular rate, rhythm, no edema, no murmur Gastrointestinal: non tender, soft Extremities: normal inspection, no pedal edema 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, no motor/sensory deficits, alert, normal mood/affect, oriented x 3 Crainal Nerves: normal hearing, normal speech, PERRL, other (left-sided visual field deficit in both eyes) Coordination/Gait: normal finger to nose, normal gait Motor/Sensory: no motor deficit, no sensory deficit, no pronator drift Skin: normal color, warm/dry Stroke NIH Stroke Scale Assessment Level of Consciousness: 0=Alert (0), Level of Consciousness-Questions: 0= Answers both month/age (0), LOC Commands: 0=Performs both tasks (0), Visual Wright: 2=Complete hemianopia (2), Facial Movement (Facial Paresis): 0=Normal symmetrical mnt (0), Motor Function-Arms Right: 0=No drift (0), Motor Function- Arms Left: 0=No drift (0), Motor Function-Legs Right: 0=No drift (0), Motor Function-Legs Left: 0=No drift (0), Limb Ataxia: 0=Absent (0), Best Language: 0= No aphasia (0), Dysarthria: 0=Normal (0), Extinction & Inattention: 0=No abnormality (0), Total: 2 Progress/Results/Core Measures Results/Orders Lab Results Laboratory Tests Test 01/02/17 14:46 01/02/17 14:47 01/02/17 15:38 Range/Units White Blood Count 5.9 4.3-11.0 10^3/uL Red Blood Count 3.98 L 4.35-5.85 10^6/uL Hemoglobin 12.6 11.5-16.0 G/DL Hematocrit 39 35-52 % Mean Corpuscular Volume 98 80-99 FL Mean Corpuscular Hemoglobin 32 25-34 PG Mean Corpuscular Hemoglobin Concent 33 32-36 G/DL Red Cell Distribution Width 13.2 10.0-14.5 % Platelet Count 142 130-400 10^3/uL Mean Platelet Volume 10.4 7.4-10.4 FL Neutrophils (%) (Auto) 67 42-75 % Lymphocytes (%) (Auto) 21 12-44 % Monocytes (%) (Auto) 9 0-12 % Eosinophils (%) (Auto) 3 0-10 % Basophils (%) (Auto) 1 0-10 % Neutrophils # (Auto) 4.0 1.8-7.8 X 10^3 Lymphocytes # (Auto) 1.2 1.0-4.0 X 10^3 Monocytes # (Auto) 0.5 0.0-1.0 X 10^3 Eosinophils # (Auto) 0.2 0.0-0.3 10^3/uL Basophils # (Auto) 0.0 0.0-0.1 10^3/uL Prothrombin Time 12.2 12.2-14.7 SEC INR Comment 0.9 0.8-1.4 Activated Partial Thromboplast Time 25 24-35 SEC D-Dimer 0.40 0.00-0.49 UG/ML Sodium Level 143 135-145 MMOL/L Potassium Level 3.4 L 3.6-5.0 MMOL/L Chloride Level 111 H 98-107 MMOL/L Carbon Dioxide Level 22 21-32 MMOL/L Anion Gap 10 5-14 MMOL/L Blood Urea Nitrogen 15 7-18 MG/DL Creatinine 1.33 H 0.60-1.30 MG/DL Estimat Glomerular Filtration Rate 39 BUN/Creatinine Ratio 11 Glucose Level 121 H 70-105 MG/DL Calcium Level 9.3 8.5-10.1 MG/DL Total Bilirubin 0.7 0.1-1.0 MG/DL Aspartate Amino Transf (AST/SGOT) 23 5-34 U/L Alanine Aminotransferase (ALT/SGPT) 20 0-55 U/L Alkaline Phosphatase 106 40-136 U/L Troponin I < 0.30 <0.30 NG/ML Total Protein 6.4 6.4-8.2 GM/DL Albumin 3.8 3.2-4.5 GM/DL Glucometer 107 70-110 MG/DL Urine Color YELLOW Urine Clarity CLEAR Urine pH 6 5-9 Urine Specific [place] 1.020 1.016-1.022 Urine Protein 2+ H NEGATIVE Urine Glucose (UA) NEGATIVE NEGATIVE Urine Ketones NEGATIVE NEGATIVE Urine Nitrite NEGATIVE NEGATIVE Urine Bilirubin NEGATIVE NEGATIVE Urine Urobilinogen 1 NORMAL MG/DL Urine Leukocyte Esterase 1+ H NEGATIVE Urine RBC (Auto) NEGATIVE NEGATIVE Urine RBC NONE /HPF Urine WBC 0-2 /HPF Urine Crystals NONE /LPF Urine Bacteria TRACE /HPF Urine Casts NONE /LPF Urine Mucus NONE /LPF Urine Culture Indicated NO My Orders Orders - ROZ AZAR MD Cbc With Automated Diff (01/02/17 14:42) Protime With Inr (01/02/17 14:42) Partial Thromboplastin Time (01/02/17 14:42) Comprehensive Metabolic Panel (01/02/17 14:42) Fibrin Degradation Products (01/02/17 14:42) Troponin I (01/02/17 14:42) Ua Culture If Indicated (01/02/17 14:42) Chest 1 View, Ap/Pa Only (01/02/17 14:42) Ekg Tracing (01/02/17 14:42) Nothing By Mouth (01/02/17 Dinner) Accucheck Stat ONCE (01/02/17 14:42) Saline Lock/Iv-Start (01/02/17 14:42) Saline Lock/Iv-Start (01/02/17 14:42) Vital Signs - Stroke Q15M (01/02/17 14:42) Ct Head Wo-R/O Stroke (01/02/17 14:42) O2 (01/02/17 14:42) Intake & Output 06,14,22 (01/02/17 14:42) Monitor-Rhythm Ecg Trace Only (01/02/17 14:42) Dysphagia Screening Tool (01/02/17 14:42) Post Thrombolytic Adminstratio (01/02/17 14:42) Vital Signs - Stroke Q15M (01/02/17 15:18) Dysphagia Screening Tool (01/02/17 15:18) Alteplase (Activase) (Activase Injection (01/02/17 15:18) Post Thrombolytic Adminstratio (01/02/17 15:18) Ct Angio Head/Neck (01/02/17 16:06) Iohexol Injection (Omnipaque 350 Mg/Ml 1 (01/02/17 16:15) Ns (Ivpb) (Sodium Chloride 0.9% Ivpb Bag (01/02/17 16:15) Medications Given in ED Current Medications Medications Dose Ordered Sig/Ondina Route Start Time Stop Time Status Last Admin Dose Admin Alteplase, Recombinant (0.9mg/ kg-max 90mg) with ... 1518 ONCE IV 01/02/17 15:18 01/02/17 15:20 DC 01/02/17 15:39 100 MG Iohexol 100 ml ONCE ONCE IV 01/02/17 16:15 01/02/17 16:16 DC 01/02/17 16:22 85 ML Sodium Chloride 100 ml ONCE ONCE IV 01/02/17 16:15 01/02/17 16:16 DC 01/02/17 16:22 100 ML Vital Signs/I&O Vital Sign - Last 12Hours 01/02/17 14:35 Temp 96.8 Pulse 74 Resp 18 B/P (MAP) 136/81 Pulse Ox 98 Blood Pressure Mean: 99 Point of Care Testing Finger Stick Blood Glucose: 109 Blood Glucose Action Taken: RN AND DR NOTIFIED Progress Note #1: Time: 15:11 Progress Note Case was reviewed with Dr. Hager states indication for TPA is acceptable given patient's extent of visual field involvement. Patient states that her current level of deficit is unacceptable and she is willing to accept the risk of TPA. Patient has satisfied the exclusion requirement screening. TPA will be ordered. Progress Note #2: Time: 15:55 Progress Note Case was reviewed with Dr. Hager again to inquire about CT angiogram of the head and neck. Because patient has had numerous strokes, she feels CT angiogram is appropriate in this case. If patient has significant cerebrovascular disease, then more aggressive antiplatelet or anticoagulant therapy may be indicated. CT angiogram has been ordered. Progress Note #3: Time: 16:05 Progress Note TPA bolus was infused and drip is presently running. CODE STATUS reviewed with patient. She elects to be full code at this time. Patient also reports her vision is improving. Daughter also comments that her visual focus seems to be improving. Headache is also improving and she declines treatment for the pain. Progress Note #4: Time: 17:[address] angiogram report reviewed. No additional findings were reported to warrant transfer for intravascular interventions. Patient's vision is improved from prior that she still has some left-sided deficit. ECG Initial ECG Impression Date: Jan 02, 2017 Initial ECG Impression Time: 14:59 Initial ECG Rate: 89 Initial ECG Rhythm: Normal Sinus Comment Normal sinus rhythm with no ST elevation or depression. Left axis deviation. No abnormal intervals. No acute changes from prior. Diagnostic Imaging Diagonstic Imaging: Xray Plain Films/CT/US/NM/MRI: chest Comments NAME: DANIELA WORLEY [facility] REC#: [id number] PT STATUS: REG ER : 1945 PHYSICIAN: ROZ AZAR MD ADMIT DATE: 01/02/17/ER Signed Date of Exam: 01/02/17 CHEST 1 VIEW, AP/PA ONLY INDICATION: Headache with vision problems. COMPARISON: 09/05/16. TECHNIQUE: Single view of the chest was obtained. FINDINGS: Stable cardiomegaly. Visible lungs are clear. Normal pulmonary vasculature. No pleural effusion or pneumothorax. IMPRESSION: Stable cardiomegaly without acute cardiopulmonary process by portable radiography. Dictated by: Dictated on workstation # [id number] Dict: 01/02/17 1504 Trans: 01/02/17 1620 Interpreted by: ALVIN MARTINEZ MD Electronically signed by: ALVIN MARTINEZ MD 01/02/17 1620 Diagonstic Imaging: CT Plain Films/CT/US/NM/MRI: head Comments CT head viewed by me and report reviewed. See report below: NAME: DANIELA WORLEY [facility] REC#: [id number] PT STATUS: REG ER : 1945 PHYSICIAN: ROZ AZAR MD ADMIT DATE: 01/02/17/ER Signed Date of Exam: 01/02/17 CT HEAD WO-R/O STROKE Procedure: CT head without contrast, r/o stroke. Technique: Unenhanced CT imaging of the head was performed. Indication: Headache, blurred vision. Comparison: 09/05/16. Findings: No hyperdense hemorrhage. Large region of encephalomalacia in the right parietal lobe is unchanged, compatible with infarct. No evidence of acute territorial infarct. Periventricular and subcortical white matter hypoattenuation is unchanged and compatible with chronic microvascular ischemic disease. No hydrocephalus or midline shift. No acute calvarial abnormality. Paranasal sinuses and mastoid air cells are clear. Impression: 1. No acute intracranial hemorrhage or evidence of acute territorial infarct. 2. 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 Dictated by: Dictated on workstation # [id number] Dict: 01/02/17 1456 Trans: 01/02/17 1620 Interpreted by: ALVIN MARTINEZ MD Electronically signed by: ALVIN MARTINEZ MD 01/02/17 1620 Diagonstic Imaging: CT Plain Films/CT/US/NM/MRI: other (CT angiogram head and neck) Comments CT angiogram head and neck viewed by me and report reviewed. See report below: NAME: DANIELA WORLEY [facility] REC#: [id number] PT STATUS: REG ER : 1945 PHYSICIAN: ROZ AZAR MD ADMIT DATE: 01/02/17/ER Draft Date of Exam:01/02/17 CT ANGIO HEAD/NECK PROCEDURE: CT angiography of the head and CT angiography of the neck with and without contrast. TECHNIQUE: Contiguous noncontrast images were obtained from the skull base through the vertex. After intravenous contrast administration, helical CT angiography of the neck was performed. Source data was reformatted into multiple MIP projections. Delayed post contrast acquisition was also obtained. INDICATION: Headache and visual abnormality. History of stroke. COMPARISON: CT from earlier the same day. FINDINGS: Patient's large remote left parietal infarct is again noted as well as background chronic microvascular changes in the white matter. CT angiogram demonstrates atherosclerotic calcifications within the aortic arch with no significant stenosis at the origins of the great vessels. There is also no significant stenosis at the origins of the vertebral arteries. The common carotid arteries demonstrate no significant atherosclerotic plaquing. There does not appear to be significant stenosis at the carotid bifurcations. There is suboptimal contrast opacification demonstrated of the cervical segments of the internal carotid arteries due to timing of the examination as there is more contrast demonstrated within the venous system than arterial. There is no gross evidence of significant cervical ICA stenosis or dissection. Intracranially, the carotid terminus appears unremarkable. There is flow within both of the M1 segments of the middle cerebral arteries with no occluded proximal M2 branch evident. The anterior cerebral arteries also appear patent. Within the posterior circulation, there is no evidence of high-grade stenosis or dissection within the vertebral arteries within the neck. There is again suboptimal opacification of the intracranial vessels. There is no evidence of significant stenosis within the vertebral arteries or within the basilar. There is no evidence that would suggest thrombus of the basilar tip. The right P1 segment of the posterior cerebral artery is unremarkable. There is a moderate right-sided posterior communicating artery. The proximal P2 segments of the right INTERNAL AUDIT CONSULTANT are unremarkable. On the left, the dominant supply to the posterior cerebral artery appears to be via a origin posterior communicating artery. There is no stenosis or thrombus within the proximal P2 segments. The distal P3 branches are limited in assessment due to suboptimal contrast opacification There is no evidence of aneurysm formation. The dural venous sinuses appear patent. Postcontrast imaging demonstrates no evidence of pathologic enhancement. The soft tissues of the neck demonstrate no acute process. The lung apices appear clear. Multilevel cervical degenerative disc disease is demonstrated within the cervical spine without evidence of an acute or suspicious osseous abnormality. IMPRESSION: 1. Prior left parietal infarct and background chronic microvascular changes within the white matter. 2. The CT angiogram of the head and neck is suboptimal and limited secondary to contrast timing. Allowing for these limitations, there is no evidence that would suggest high-grade stenosis or dissection within the neck and there is no evidence to suggest high-grade stenosis or large vessel occlusion within the intracranial circulation. 3. No aneurysm is evident. 4. The dural venous sinuses appear patent. Dictated on workstation # [id number] Dict: 01/02/17 1645 Trans: 01/02/17 1700 [facility] [id number] Interpreted by: SEAN DEL VALLE MD Departure Communication (Admissions) Time/Spoke to Admitting Phy: 15:46 Communication Case reviewed with Dr. You who agrees with admission to the ICU for post thrombolytic care. Impression Impression: Primary Impression: Complete hemianopia Additional Impression: Acute headache Qualified Codes: R51 - Headache Disposition: 01 HOME, SELF-CARE Condition: Improved Admissions Decision to Admit Reason: Admit from ER (General) Decision to Admit/Date: Jan 02, 2017 Time/Decision to Admit Time: 14:15 Departure-Patient Inst. Referrals: TELLO WILKINSON MD (PCP) Primary Care Physician Copy Copies To 1: TELLO WILKINSON MD, JOSHUA T MD Jan 02, 2017 16:06
[2017-01-02] MEDS ORDERED: IOHEXOL 350 MG/ML 100 ML (OMNIPAQUE 350) VIAL IV ONE (16:15)
[2017-01-02] MEDS ORDERED: NS 100 ML (IVPB) BAG IV ONE (16:15)
--- NOTE | 2017-01-02 17:00 | Diagnostic Imaging Report ---
PROCEDURE: CT angiography of the head and CT angiography of the neck with and without contrast. TECHNIQUE: Contiguous noncontrast images were obtained from the skull base through the vertex. After intravenous contrast administration, helical CT angiography of the neck was performed. Source data was reformatted into multiple MIP projections. Delayed post contrast acquisition was also obtained. INDICATION: Headache and visual abnormality. History of stroke. COMPARISON: CT from earlier the same day. FINDINGS: Patient's large remote left parietal infarct is again noted as well as background chronic microvascular changes in the white matter. CT angiogram demonstrates atherosclerotic calcifications within the aortic arch with no significant stenosis at the origins of the great vessels. There is also no significant stenosis at the origins of the vertebral arteries. The common carotid arteries demonstrate no significant atherosclerotic plaquing. There does not appear to be significant stenosis at the carotid bifurcations. There is suboptimal contrast opacification demonstrated of the cervical segments of the internal carotid arteries due to timing of the examination as there is more contrast demonstrated within the venous system than arterial. There is no gross evidence of significant cervical ICA stenosis or dissection. Intracranially, the carotid terminus appears unremarkable. There is flow within both of the M1 segments of the middle cerebral arteries with no occluded proximal M2 branch evident. The anterior cerebral arteries also appear patent. Within the posterior circulation, there is no evidence of high-grade stenosis or dissection within the vertebral arteries within the neck. There is again suboptimal opacification of the intracranial vessels. There is no evidence of significant stenosis within the vertebral arteries or within the basilar. There is no evidence that would suggest thrombus of the basilar tip. The right P1 segment of the posterior cerebral artery is unremarkable. There is a moderate right-sided posterior communicating artery. The proximal P2 segments of the right MOTOR AND CONTROLS TESTER are unremarkable. On the left, the dominant supply to the posterior cerebral artery appears to be via a origin posterior communicating artery. There is no stenosis or thrombus within the proximal P2 segments. The distal P3 branches are limited in assessment due to suboptimal contrast opacification There is no evidence of aneurysm formation. The dural venous sinuses appear patent. Postcontrast imaging demonstrates no evidence of pathologic enhancement. The soft tissues of the neck demonstrate no acute process. The lung apices appear clear. Multilevel cervical degenerative disc disease is demonstrated within the cervical spine without evidence of an acute or suspicious osseous abnormality. IMPRESSION: 1. Prior left parietal infarct and background chronic microvascular changes within the white matter. 2. The CT angiogram of the head and neck is suboptimal and limited secondary to contrast timing. Allowing for these limitations, there is no evidence that would suggest high-grade stenosis or dissection within the neck and there is no evidence to suggest high-grade stenosis or large vessel occlusion within the intracranial circulation. 3. No aneurysm is evident. 4. The dural venous sinuses appear patent. Dictated by: Dictated on workstation # [id number]
--- OUTSIDE RECORDS SUMMARY | 2017-01-02 17:28 | XMS REPORT | Clinical Summary ---
Author Author [facility] Organization [facility] Address Unknown Phone Unavailable Care Team Providers Care Acoustics Teacher Name Role Phone PCP Unavailable Source Comments Some departments are not documenting in the electronic medical record. If you do not see the information that you expected, contact Release of Information in the Health Information Management department at [phone] for further assistance in locating additional records.[facility] Allergies Not on File Current Medications Not [...]
[2017-01-02] MEDS ORDERED: ONDANSETRON 4 MG/2 ML (SDV) Z0FRAN IVP PRN (18:00)
[2017-01-02] MEDS ORDERED: fentaNYL INJECTION 100 MCG/2 ML AMP IVP PRN (18:00)
[2017-01-02] MEDS ORDERED: MILK OF MAGNESIA 400 MG/5 ML 30 ML UDC PO PRN (18:30)
[2017-01-02] MEDS: NS IV 1000 ML 1,000 ML IV SCH (19:21)
[2017-01-02] MEDS: FAMOTIDINE 20MG/2ML IV (PEPCID) IVP SCH (20:26)
[2017-01-02] MEDS: DOCUSATE SODIUM 100 MG (COLACE) CAP PO SCH (20:26)
[2017-01-03] VITALS (17 sets, daily range): BP systolic 13–145; BP diastolic 65–99
[2017-01-03 04:54] LABS: BASOPHILS % (AUTO) 1 % (0-10); EOSINOPHILS # (AUTO) 0.2 10^3/uL (0.0-0.3); EOSINOPHILS % (AUTO) 3 % (0-10); LYMPHOCYTES # (AUTO) 1.3 X 10^3 (1.0-4.0); LYMPHOCYTES % (AUTO) 22 % (12-44); MEAN CORPUSCULAR HEMOGLOBIN 31 PG (25-34); MEAN CORPUSCULAR HGB CONC 32 G/DL (32-36); MEAN CORPUSCULAR VOLUME 98 FL (80-99); MEAN PLATELET VOLUME 10.2 FL (7.4-10.4); MONOCYTES # (AUTO) 0.5 X 10^3 (0.0-1.0); MONOCYTES % (AUTO) 8 % (0-12); NEUTROPHILS # (AUTO) 4.1 X 10^3 (1.8-7.8); NEUTROPHILS % (AUTO) 68 % (42-75); PLATELET COUNT 137 10^3/uL (130-400); RED BLOOD COUNT 3.82 10^6/uL (4.35-5.85); RED CELL DISTRIBUTION WIDTH 13.1 % (10.0-14.5); WHITE BLOOD COUNT 6.1 10^3/uL (4.3-11.0)
[2017-01-03 05:28] LABS: ALBUMIN 3.2 GM/DL (3.2-4.5); BILIRUBIN,TOTAL 0.6 MG/DL (0.1-1.0); CALCIUM 8.7 MG/DL (8.5-10.1); CREATININE SERUM 1.15 MG/DL (0.60-1.30); MAGNESIUM 1.6 MG/DL (1.8-2.4); PHOSPHORUS 3.5 MG/DL (2.3-4.7); POTASSIUM 3.4 MMOL/L (3.6-5.0); TOTAL PROTEIN 5.4 GM/DL (6.4-8.2)
[2017-01-03] MEDS: POTASSIUM CL 10MEQ/50ML IVPB 50 ML IV SCH (05:31)
[2017-01-03] MEDS: MAGNESIUM 1 GM/100 ML IVPB 100 ML IV SCH ×3 (05:32→06:54)
[2017-01-03] MEDS: KCL 20 MEQ TAB (K-DUR) PO SCH (05:33)
[2017-01-03] MEDS ORDERED: KCL 20 MEQ TAB (K-DUR) PO ONE (05:45)
[2017-01-03] MEDS: NS IV 1000 ML 1,000 ML IV SCH (07:09)
[2017-01-03] MEDS ORDERED: INFLUENZA TRIvalent 2017-2018 0.5 ML/45 MCG SYR IM ONE (07:15)
--- NOTE | 2017-01-03 08:01 | Pulmonary Consultation ---
History of Present Illness History of Present Illness Date of Consultation 01/03/17 07:54 Time Seen by Provider: 07:54 Date of Admission History of Present Illness 71yo with hx of multiple CVAs presented to ED secondary to sudden vision loss and difficulty focusing affecting both eyes. No other deficit noted. TPA was given in ED and vision has improved. Pt states she can focus better however its not back to her normal yet. I am consulted for ICU management. Allergies and Home Medications Allergies Coded Allergies: No Known Drug Allergies (Verified , 09/08/12) Home Medications Amlodipine Besylate 5 Mg Tablet, 5 MG PO HS, (Reported) Atorvastatin 20 Mg Tablet, 20 MG PO HS, (Reported) Calcitriol 0.25 Mcg Capsule, 0.25 MCG PO MoWeFr, (Reported) Carvedilol 25 Mg Tablet, 25 MG PO BID, (Reported) Cefdinir 300 Mg Capsule, 300 MG PO BID for 5 Days, #10 Prescribed by: ROBERT FAIRBANKS on 09/07/16 1146 Clopidogrel Bisulfate 75 Mg Tablet, 75 MG PO DAILY, (Reported) Fluoxetine HCl 40 Mg Capsule, 40 MG PO BID, (Reported) Latanoprost 2.5 Ml Drops, 1 DROP OU HS, (Reported) Montelukast Sodium 10 Mg Tablet, 10 MG PO HS, (Reported) Pantoprazole Sodium 40 Mg Tablet.dr, 40 MG PO HS, (Reported) Pentoxifylline 400 Mg Tablet.er, 400 MG PO DAILY, (Reported) Past Quqkyaw-Sxttmr-Rltyaf Hx Patient Social History Alcohol Use: Occasionally Uses Recreational Drug Use: No Smoking Status: Former Smoker Type Used: Cigarettes Former Smoker, Quit: Dec 19, 1986 Recent Foreign Travel: No Contact w/Someone Who Travel: No Recent Infectious Disease Expo: No Recent Hopitalizations: No Immunizations Up To Date Tetanus Booster (TDap): More than 5yrs PED Vaccines UTD: Yes Date of Pneumonia Vaccine: Nov 19, 2013 Date of Influenza Vaccine: Nov 19, 2013 Seasonal Allergies Seasonal Allergies: Yes Surgeries History of Surgeries: Yes (APPENDECTOMY, HIATAL HERNIA, GI bleed cauterized) Surgeries: Abdominal, Appendectomy, Eye Surgery (cataracts), Tonsillectomy Respiratory History of Respiratory Disorde: No Currently Using CPAP: No Currently Using BIPAP: No Cardiovascular History of Cardiac Disorders: Yes (small PFO) Cardiac Disorders: Heart Murmur, Hypertension, Valvular Heart Disease (aortic sclerosis) Neurological History of Neurological Disord: Yes Neurological Disorders: Stroke, TIA 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 System : No Hx 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 Disorders: No Sexually Transmitted Disease: No HIV/AIDS: No Female 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 Disorders: Denies 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 Genitourinary History of Genitourinary Disor: Yes Gastrointestinal History of Gastrointestinal Di: Yes Gastrointestinal Disorders: Gastroesophageal Reflux, Polyps, Hiatal Hernia, Ulcer Musculoskeletal History of Musculoskeletal Dis: Yes Musculoskeletal Disorders: Arthritis Endocrine History of Endocrine Disorders: No HEENT History of HEENT Disorders: Yes HEENT Disorders: Cataract, Glaucoma Hearing Impairment: Denies Cancer History of Cancer: No Did You Recieve Any Treatments: No Psychosocial History of Psychiatric Problem: Yes Behavioral Health Disorders: Anxiety Integumentary History of Skin or Integumenta: No Blood Transfusions History of Blood Disorders: Yes (Anemia) Adverse Reaction to a Blood Tr: No Family Medical History Family Medial History: FH: CVA (cerebrovascular accident) G8 BROTHER G8 SISTER FH: breast cancer 19 MOTHER FH: cancer 19 FATHER Hypertension 19 MOTHER Exam Exam Vital Signs Date Time Temp Pulse Resp B/P (MAP) Pulse Ox O2 Delivery O2 Flow Rate FiO2 01/03/17 06:00 58 24 99 Room Air 01/03/17 05:00 68 13 134/65 97 Room Air 01/03/17 04:00 99 Room Air 01/03/17 04:00 71 17 105/76 96 Room Air 01/03/17 03:00 56 17 134/73 97 Room Air 01/03/17 02:00 67 17 132/72 98 Room Air 01/03/17 01:00 63 01/03/17 01:00 63 20 143/70 97 Room Air 01/03/17 00:00 97 Room Air 01/03/17 00:00 62 21 128/75 98 Room Air 01/02/17 23:00 61 14 116/58 98 Room Air 01/02/17 22:00 73 19 113/55 98 Room Air 01/02/17 21:00 65 18 113/57 95 Room Air 01/02/17 20:10 98 Room Air 01/02/17 20:00 85 33 125/83 100 Room Air 01/02/17 19:00 74 01/02/17 19:00 74 10 145/87 99 Room Air 01/02/17 18:54 Room Air 01/02/17 18:00 78 30 138/83 100 Room Air 01/02/17 17:52 71 01/02/17 17:45 96.6 78 18 155/103 97 Room Air 01/02/17 17:40 62 18 98 01/02/17 14:35 96.8 74 18 136/81 98 General Appearance: No Apparent Distress, WD/WN, Anxious HEENT: Normal ENT Inspection, Pharynx Normal Neck: Normal Inspection, Non Tender, Supple Respiratory: Chest Non Tender, No Accessory Muscle Use, No Respiratory Distress , Decreased Breath Sounds Cardiovascular: No Edema, No JVD, No Murmur, Normal Peripheral Pulses Capillary Refill: Less Than 3 Seconds Gastrointestinal: non tender, soft Extremity: Normal Capillary Refill, Normal Inspection, Normal Range of Motion Neurologic/Psychiatric: Alert, Oriented x3, No Motor/Sensory Deficits, Normal Mood/Affect Skin: Normal Color, Warm/Dry Lymphatic: No Adenopathy Results Lab Laboratory Tests 01/02/17 14:46 01/03/17 04:30 Assessment/Plan Assessment/Plan Acute CVA s/p TPA -Check echo and bilateral carotid dopplers -start Plavix 24hrs after TPA was given -bedside swallow eval 254 Clinical Quality Measures DVT/VTE Risk/Contraindication: Risk Factor Score Per Nursin RFS Level Per Nursing on Admit: 4+=Very High AMELIA YI DO Jan 03, 2017 08:01
--- NOTE | 2017-01-03 08:16 | Diagnostic Imaging Report ---
INDICATION: Complete left hemianopsia and headache. Comparison made to prior examination 01/02/2017. FINDINGS: There is cardiomegaly. The lungs are clear. There is no pleural effusion or pneumothorax. Mediastinum is unremarkable. IMPRESSION: No acute cardiopulmonary abnormality. Cardiomegaly. Dictated by: Dictated on workstation # [id number]
[2017-01-03] MEDS: DOCUSATE SODIUM 100 MG (COLACE) CAP PO SCH ×2 (08:36→21:36)
[2017-01-03] MEDS: FAMOTIDINE 20MG/2ML IV (PEPCID) IVP SCH (08:41)
--- NOTE | 2017-01-03 09:59 | Speech Therapy Progress Note ---
Therapy Progress Note Speech pathology dysphagia evaluation received and chart reviewed. The dysphagia evaluation was attempted, however, the patient is currently receiving an ultrasound. Speech pathology will reattempt evaluation, as able. Thank you! DESHAUN UGALDE Jan 03, 2017 09:59
--- NOTE | 2017-01-03 10:26 | Diagnostic Imaging Report ---
PROCEDURE: US Carotid Duplex Bilateral. TECHNIQUE: Multiple real-time grayscale images were obtained over the carotid arteries in various projections bilaterally. Additional duplex Doppler and color Doppler images were also obtained. INDICATION: Headache. FINDINGS: There are minimal atherosclerotic changes seen in the carotid arteries on grayscale images. Color Doppler demonstrates patency of the common, internal and external carotid arteries on both sides. There is antegrade flow seen in the vertebral artery on both sides. Peak systolic velocities in the ICA from proximal/ distal are 51, 48, and 77 cm/s from proximal/ distal and on the left side 61, 50, and 61 cm/s. ICA:CCA ratios are up to 1.1 on the right and 0.7 on the left. IMPRESSION: Minimal atherosclerotic plaque with estimated underlying stenosis in the range of 0 to 25% bilaterally. Dictated by: Dictated on workstation # [id number]
[2017-01-03] MEDS ORDERED: CALC0.253 PO (10:48)
[2017-01-03] MEDS ORDERED: PANT40TA3 PO (10:48)
[2017-01-03] MEDS ORDERED: MONT10TA24 PO (10:52)
[2017-01-03] MEDS ORDERED: ATOR20TA66 PO (10:52)
--- NOTE | 2017-01-03 12:50 | ST Dysphagia Evaluation ---
Speech Evaluation-General Medical Diagnosis CVA Onset Date: Jan 02, 2017 Therapy Diagnosis Therapy Diagnosis: Oropharyngeal Swallow WNL Precautions Precautions/Isolations: Standard Precautions Referral Referring Physician: Dr. Tj Rasmussen Reason for Referral: Evaluation/Treatment Clinical Bedside Swallowing Evaluation Medical History Pertinent Medical History: CVA, GERD, HTN Reviewed History: Yes Speech PLF/Current-Dysphagia Prior Level of Function The patient denied prior challenges with swallowing, including signs/symptoms of aspiration with PO intake. Subjective The patient was recently admitted to [facility] with a diagnosis of CVA. The patient was laying in bed, asleep upon entrance. The patient was easily roused with gentle verbal prompts. The patient greeted the clinician appropriately and was agreeable to participation in the dysphagia assessment. CXR: 01/03/17: No acute cardiopulmonary abnormality. Cognitive Status Patient Orientation: Person, Place, Time, Situation Oral Motor Skills Dentition: Natural Current Food Consistancy: Regular, Thin Liquids Ability to Follow Directions: Excellent Oral Expression Ability: No Impairment Voice Voice Phonatory-Based Quality: Normal Voice Pitch: Normal Voice Loudness: Normal Face Facial Symmetry: Symmetrical Oral-Facial Assessment Oral-Facial Dentition: Normal Labial Seal Description: Normal Smile: Normal Puff Cheeks: Normal Lingual Protrusion: Normal Lingual ROM: Normal Lingual Strength: Normal Pharynx Velopharyngeal Move.: Normal Volitional Dry Swallow: Yes Dysphagia Evaluation Consistencies Presented: Regular, Thin Liquid, Pureed Oral Phase: Right Pocketing The patient reported minimal right pocketing of solid consistency (cracker) following the initial swallow. The patient cleared the pocketed spontaneously ( independently) with a drink of water. - No pharyngeal impairments were noted throughout the evaluation. - No signs/symptoms of aspiration were displayed with multiple boluses of thin liquid (via straw), puree, or solid consistencies. The patient's vocal quality remained clear throughout the session. Dietary Recommendations: Regular Liquid Recommendations: Thin Swallowing Precautions: Alternate Liquids/Solids, Pocketing (Right), Small Bites and Sips, Sitting Upright 90 Degrees Dysphagia Evaluation Summary The patient displayed an oropharyngeal swallow function grossly within normal limits. Speech-Plan Treatment Plan Speech Therapy Treatment Plan: Discontinue ST Evaluation, only. Frequency: 1 time per week (Evaluation, only.) Estimated Hrs Per Day: Other (Evaluation, only.) Rehab Potential: Good Safety Risks/Education Teaching Recipient: Patient Teaching Methods: Discussion Response to Teaching: Verbalize Understanding Education Topics Provided: Results, Recommendations, Plan of Care Time Speech Therapy Time In: 10:30 Speech Therapy Time Out: 10:45 Total Billed Time: 15 Billed Treatment Time 1, DESHAUN BORDEN Jan 03, 2017 12:50
--- NOTE | 2017-01-03 14:36 | History & Physical-Hospitalist ---
HPI History of Present Illness: HPI/Chief Complaint The patient is a 71-year-old white female admitted yesterday when she presented to the emergency room with a complaint of visual aberration. She had a stroke which affected her left side and vision 3-4 years ago. She has been on Plavix since that time. She stated that the vision problem caused her to do to the left and sometimes hallway carolina when ambulating. She found the problems difficult to describe as to how the complaint which brought her to the emergency room was different or increased. She stated she had the sense that both eyes were involved and there was blurring and also loss of leftward vision. Her NIH score from the emergency room was rated as 2 and all based on the visual findings. The findings were discussed with the neurology department by Dr. Fernandez. It was elected given her previous good recovery from the previous stroke, albeit with considerable CT evidence of encephalomalacia, to offer her from the lysis in hopes of improving her visual status. She accepted this recognize the potential risk for bleeding and decline in symptoms. Today she states that her vision is not as good as prior to Tuesday but is much better than on presentation. She has seen Dr. Singh a local client project coordinator for visual services and measurement of field defects. She is pending a repeat study this time with an MRI to evaluate whether any new abnormality can be determined. Source: patient Exam Limitations: no limitations Date Seen 01/03/17 Time Seen by Provider: 14:35 Attending Physician Lindsay You Rachel L MD Referring Physician Date of Admission Jan 02, 2017 at 16:08 Home Medications & Allergies Home Medications Reviewed patient Home Medication Reconciliation Form Allergies Allergies Coded Allergies No Known Drug Allergies (Verified09/08/12) Past Eyfdhop-Ykezfm-Unktru Hx Patient Social History Alcohol Use: Occasionally Uses Recreational Drug Use: No Smoking Status: Former Smoker Former Smoker, Quit: Dec 19, 1986 Type Used: Cigarettes Recent Foreign Travel: No Contact w/other who traveled: No Recent Hopitalizations: No Recent Infectious Disease Expo: No Immunizations Up To Date Tetanus Booster (TDap): More than 5yrs Pediatric: Yes Date of Pneumonia Vaccine: Nov 19, 2013 Date of Influenza Vaccine: Nov 19, 2013 Seasonal Allergies Seasonal Allergies: Yes Surgeries Yes (APPENDECTOMY, HIATAL HERNIA, GI bleed cauterized) Abdominal, Appendectomy, Eye Surgery (cataracts), Tonsillectomy Respiratory No Currently Using CPAP: No Currently Using BIPAP: No Cardiovascular Yes (small PFO) Heart Murmur, Hypertension, Valvular Heart Disease (aortic sclerosis) Neurological Yes Stroke, TIA 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 System : No Hx 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 Disorders: No Sexually Transmitted Disease: No HIV/AIDS: No Female 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 Disorders: 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 Genitourinary Yes Gastrointestinal Yes Gastroesophageal Reflux, Polyps, Hiatal Hernia, Ulcer Musculoskeletal Yes Arthritis Endocrine History of Endocrine Disorders: No HEENT History of HEENT Disorders: Yes HEENT Disorders: Cataract, Glaucoma Hearing Impairment: Denies Cancer No Did You Recieve Any Treatments: No Psychosocial History of Psychiatric Problem: Yes Behavioral Health Disorders: Anxiety Integumentary History of Skin or Integumenta: No Blood Transfusions History of Blood Disorders: Yes (Anemia) Adverse Reaction to a Blood Tr: No Family Medical History Family Hx: FH: CVA (cerebrovascular accident) G8 BROTHER G8 SISTER FH: breast cancer 19 MOTHER FH: cancer 19 FATHER Hypertension 19 MOTHER Review of Systems Constitutional: see HPI EENTM: blurred vision, double vision (plus new or increased left hemianopsia.) Respiratory: no symptoms reported Cardiovascular: no symptoms reported Gastrointestinal: no symptoms reported Genitourinary: no symptoms reported Musculoskeletal: no symptoms reported Skin: no symptoms reported Psychiatric/Neurological: No Symptoms Reported Physical Exam Physical Exam Vital Signs Vital Sign - Last 12Hours 01/02/17 01/02/17 14:35 17:45 Temp 96.8 Pulse 74 Resp 18 B/P (MAP) 136/81 Pulse Ox 98 O2 Delivery Room Air Capillary Refill : Less Than 3 Seconds General Appearance: No Apparent Distress, WD/WN, Other (alert and vivacious) Eyes: Bilateral Eye Normal Inspection HEENT: Normal ENT Inspection Neck: Full Range of Motion, Normal Inspection, Non Tender, Supple, Carotid Bruit Respiratory: Chest Non Tender, Lungs Clear, Normal Breath Sounds, No Accessory Muscle Use, No Respiratory Distress Cardiovascular: Regular Rate, Rhythm, No Edema, No Gallop, No JVD, No Murmur, Normal Peripheral Pulses Gastrointestinal: Normal Bowel Sounds, No Organomegaly, No Pulsatile Mass, Non Tender, Soft Back: Normal Inspection Extremity: Normal Capillary Refill, Normal Inspection, Normal Range of Motion, Non Tender, No Calf Tenderness, No Pedal Edema Neurologic/Psychiatric: Alert, Oriented x3, No Motor/Sensory Deficits, Normal Mood/Affect Skin: Normal Color, Warm/Dry Lymphatic: No Adenopathy Results Results/Procedures Lab Laboratory Tests 01/02/17 14:46 01/03/17 04:30 01/04/17 05:20 Assessment/Plan Admission Diagnosis 1.previous right parietal lobe infarct with a large region of encephalomalacia unchanged from previous study. 2.headache and left hemianopia as symptoms of new disability. 3.hypertension Assessment and Plan Repeat study with MRI at 24 hours post TPA. Adjust treatment plan if necessary post findings. Clinical Quality Measures DVT/VTE Risk/Contraindication: Risk Factor Score Per Nursin RFS Level Per Nursing on Admit: 4+=Very High ERIK MENDEZ MD Jan 03, 2017 14:36
--- NOTE | 2017-01-03 16:39 | Diagnostic Imaging Report ---
PROCEDURE: MR imaging of the brain without contrast. TECHNIQUE: Multiplanar, multisequence MR imaging of the brain was performed without contrast. INDICATION: Left complete hemianopsia. The patient was given TPA. FINDINGS: There is diffusion restriction seen along the lateral aspect of the right occipital lobe in the occipitotemporal and occipital parietal junction region involving an area measuring around 2 cm. This is associated with T2 hyperintense signal and surrounding mild edema. There is evidence of T2 signal abnormality in the occipital lobe on the right side more medially associated with encephalomalacia compatible with an old infarct. There is also an old infarct in the occipitotemporal and occipitoparietal junction on the left side. These are watershed areas between the posterior and middle cerebral artery vascular distributions. There is no other acute infarct identified. There is extensive periventricular and deep white matter T2 hyperintense signal abnormalities suggestive of chronic microvascular ischemic changes. Similarly, chronic white matter changes are also seen in zulema. There is preserved central vascular flow-voids. The pituitary gland is normal in size. No hypothalamic or pineal region mass. No hydrocephalus. No extra-axial fluid collection is seen. The paranasal sinuses and orbits appear grossly unremarkable. IMPRESSION: There is an area of acute infarct seen along the lateral aspect of the right occipital lobe along the occipitoparietal and occipitotemporal junction region. The findings were called to Dr. You and a message about the findings were left with her public health training assistant, Ms. Grewal. Dictated by: Dictated on workstation # [id number]
[2017-01-03] MEDS ORDERED: CLOPIDOGREL 75 MG (PLAVIX) TABLET PO SCH (18:00)
[2017-01-03] MEDS ORDERED: ACETAMINOPHEN 325 MG TABLET/CAPLET (TYLENOL) PO PRN (18:15)
[2017-01-04] VITALS: BP 149/88
[2017-01-04 04:15] VITALS: BP 170/88
[2017-01-04] MEDS ORDERED: amLODIPine 5 MG (NORVASC) TAB PO ONE (04:30)
[2017-01-04 05:56] LABS: BASOPHILS % (AUTO) 1 % (0-10); EOSINOPHILS # (AUTO) 0.2 10^3/uL (0.0-0.3); EOSINOPHILS % (AUTO) 3 % (0-10); LYMPHOCYTES # (AUTO) 1.5 X 10^3 (1.0-4.0); LYMPHOCYTES % (AUTO) 26 % (12-44); MEAN CORPUSCULAR HEMOGLOBIN 32 PG (25-34); MEAN CORPUSCULAR HGB CONC 32 G/DL (32-36); MEAN CORPUSCULAR VOLUME 97 FL (80-99); MEAN PLATELET VOLUME 10.4 FL (7.4-10.4); MONOCYTES # (AUTO) 0.7 X 10^3 (0.0-1.0); MONOCYTES % (AUTO) 12 % (0-12); NEUTROPHILS # (AUTO) 3.4 X 10^3 (1.8-7.8); NEUTROPHILS % (AUTO) 59 % (42-75); PLATELET COUNT 139 10^3/uL (130-400); RED BLOOD COUNT 3.94 10^6/uL (4.35-5.85); RED CELL DISTRIBUTION WIDTH 13.1 % (10.0-14.5); WHITE BLOOD COUNT 5.7 10^3/uL (4.3-11.0)
[2017-01-04] MEDS: MAGNESIUM 1 GM/100 ML IVPB 100 ML IV SCH (06:00)
[2017-01-04] MEDS: POTASSIUM CL 10MEQ/50ML IVPB 50 ML IV SCH (06:00)
[2017-01-04 06:17] LABS: CREATININE SERUM 0.94 MG/DL (0.60-1.30); MAGNESIUM 1.8 MG/DL (1.8-2.4); POTASSIUM 3.6 MMOL/L (3.6-5.0)
[2017-01-04 06:21] VITALS: BP 159/79
[2017-01-04] MEDS: KCL 20 MEQ TAB (K-DUR) PO SCH (07:01)
--- NOTE | 2017-01-04 08:21 | Diagnostic Imaging Report ---
INDICATION: Left-sided hemianopsia. Headache. COMPARISON: 01/03/2017 FINDINGS: Single frontal view of the chest demonstrates normal heart size and pulmonary vascularity. The lungs are well aerated and clear. No large pleural effusion or pneumothorax is seen. The visualized osseous structures show no acute abnormalities. There is calcified aortic atherosclerosis. IMPRESSION: 1. No acute cardiopulmonary process. Dictated by: Dictated on workstation # [id number]
[2017-01-04] MEDS ORDERED: FAMOTIDINE 20MG/2ML IV (PEPCID) IVP SCH (09:00)
[2017-01-04] MEDS: DOCUSATE SODIUM 100 MG (COLACE) CAP PO SCH (09:20)
[2017-01-04 09:25] VITALS: BP 144/85
[2017-01-04] MEDS ORDERED: ASPI-824 PO (11:25)
--- NOTE | 2017-01-04 11:28 | Discharge Inst-Stroke w/wo TPA ---
Discharge Inst-Stroke w/wo TPA Patient Instructions Medications as on the discharge list Add [address] Singh soon to evaluate visual moreno. You are not to drive until he has cleared YOU Report any unusual bruising or bleeding to your provider. Additional Follow Up: Yes Return to The Hospital For: Decline in condition Activity & Diet Discharge Diet: Low Fat/Low Cholesterol Activity as Tolerated: Yes ERIK MENDEZ MD Jan 04, 2017 11:28
[2017-01-04 12:21] VITALS: BP 167/87
--- NOTE | 2017-01-04 12:49 | Progress Note-Hospitalist ---
Standard Progress Note Progress Notes/Assess & Plan Date Seen 01/04/17 Time Seen by Provider: 11:30 Diagnosis 1.previous right parietal lobe infarct with a large region of encephalomalacia unchanged from previous study. 2.headache and left hemianopia as symptoms of new disability. 3.hypertension Assess & Plan/Chief Complaint 1.previous right parietal lobe infarct with a large region of encephalomalacia unchanged from previous study. 2.headache and left hemianopia new and increased over previous disability. 3.hypertension. 4.new area of infarct as described by repeat study/MRI and anatomically related to visual aberration. 5.improvement of visual complaints post TPA The patient reports that her vision is improved but not back to the level of she reports prior to presentation on Tuesday. The findings of her MRI were discussed. She was informed that we would be adding aspirin back to her previous Plavix. She was advised that she should not drive until she has had a post event exam by Dr. Singh who has been her recycling technician. She is otherwise set for discharge. Physical exam: Lungs are clear to auscultation. CV is regular without murmur. No loss of function is noted relative to extremities. Plan: Discharge today. See discharge sequence for medications and instructions for follow-up. Again she was instructed she should not drive until she has had an exam by Dr. Singh. Note her exit NIH score was 1. Labs Laboratory Tests 01/02/17 14:46 01/03/17 04:30 01/04/17 05:20 Final Diagnosis See diagnoses in assessment and plan from today Copy Copies To 1: TELLO WILKINSON MD, RODNEY K MD Jan 04, 2017 12:49
[2017-01-04 14:15] VITALS: BP 167/87
== END 2017-01-04 14:15 | disposition home or self-care (01) | DRG 63 ==
LOC: EDUNIT# 14:31 → ER 14:32 → ICU 16:08
PROVIDERS: ADMIT Internal Medicine; ATTEND Internal Medicine
DX: I63.9 Cerebral infarction, unspecified (principal); H53.47 Heteronymous bilateral field defects; H53.2 Diplopia; I69.398 Other sequelae of cerebral infarction; H53.8 Other visual disturbances; I69.898 Other sequelae of other cerebrovascular disease; G93.89 Other specified disorders of brain; R29.702 NIHSS score 2; I10 Essential (primary) hypertension; F41.9 Anxiety disorder, unspecified; F17.210 Nicotine dependence, cigarettes, uncomplicated; R01.1 Cardiac murmur, unspecified; J30.2 Other seasonal allergic rhinitis; I35.8 Other nonrheumatic aortic valve disorders; H40.9 Unspecified glaucoma; M19.91 Primary osteoarthritis, unspecified site; K21.9 Gastro-esophageal reflux disease without esophagitis; Z79.02 Long term (current) use of antithrombotics/antiplatelets; Z87.11 Personal history of peptic ulcer disease
CPT/HCPCS: 36415; 51702; 70450; 70496; 70498; 70551; 71010; 80048; 80053; 80061; 81000; 82962; 83735; 84100; 84484; 85025; 85379; 85610; 85730; 93005; 93041; 93306; 93880; 94664; 96365

== ENCOUNTER → 2017-03-16 | Outpatient (CLI) | payer MEDICARE ==
[~2017-03-16] MED LIST changes: +ASPI-824 PO; +ATOR20TA66 PO; +MONT10TA24 PO; +PANT40TA3 PO
--- NOTE | 2017-03-16 09:41 | Diagnostic Imaging Report ---
Renal Doppler vascular ultrasound. INDICATION: Hypertension and chronic kidney disease. FINDINGS: The right kidney is 7.6 cm, and the left kidney is 8.2 cm in length. There is no hydronephrosis or focal lesion in either kidney. The renal artery velocity on the right side proximally is 42 cm/s and on the left is 53 cm/s. The mid and distal segments of the renal arteries are obscured on both sides. The resistive index over the right kidney is 0.67 to 0.69 and on the left is 0.6 to 0.69. IMPRESSION: The mid and distal segments of the renal arteries are obscured. Normal velocities are seen in the proximal segments, however, with no definite evidence of renal artery stenosis. Dictated by: Dictated on workstation # [id number]
== END ==
LOC: RAD 08:00
PROVIDERS: ATTEND Family Medicine
DX: I12.9 Hypertensive chronic kidney disease with stage 1 through stage 4 chronic kidney disease, or unspecified chronic kidney disease (principal); N18.9 Chronic kidney disease, unspecified
CPT/HCPCS: 93975

== ENCOUNTER → 2017-05-18 | Day surgery (SDC) | payer MEDICARE ==
[~2017-05-18] VITALS: Ht 162.6 cm; Wt 63.5 kg
[~2017-05-18] MED LIST changes: +LIDOCAINE 1% INJ 50 ML (XYLOCAINE) VIAL ONE
--- OUTSIDE RECORDS SUMMARY | 2017-05-18 10:13 | XMS REPORT | Clinical Summary ---
Author Author [facility] Organization [facility] Address Unknown Phone Unavailable Care Team Providers Care Adviser Sales Name Role Phone Hellen Tomas RN Unavailable Unavailable Oriana Watts MD PCP Source Comments Some departments are not documenting in the electronic medical record. If you do not see the information that you expected, contact Release of Information in the Health Information Management department at [phone] for further assistance in locating additional records.[facility] Allergies Not on File Current Medications Not [...]
--- OUTSIDE RECORDS SUMMARY | 2017-05-18 10:15 | XMS REPORT | Continuity of Care Document ---
Author Author [facility] Organization [facility] Address Unknown Phone Unavailable Allergies Active Description Code Type Severity Reaction Onset Reported/Identified Relationship to Patient Clinical Status Yes NKDA NKDA Mild N/ A 09/01/2008 Yes No Known Drug Allergies [id number] Drug Allergy Unknown N/A 08/13/2016 Medications There is no data. Problems Date Dx Coded Attending Type Code [...] SINGH MD Ot 401.9 HYPERTENSION NOS 03/22/2014 IWONA SINGH MD Ot 434.91 CEREBRAL ART OCCLUSION NOS W CEREBRAL IN 03/22/2014 IWONA SINGH MD Ot 438.7 DISTURBANCES OF VISION 03/22/2014 IWONA SINGH MD Ot 530.81 ESOPHAGEAL REFLUX 03/22/2014 IWONA SINGH MD Ot V15.82 HISTORY OF TOBACCO USE 03/22/2014 IWONA SINGH MD Ot V17.1 FAMILY HX-STROKE 03/22/2014 Ot 272.4 [...] WOODS, ERNESTO S Ot V72.84 03/22/2014 LON CULVER, DAPHNIE Barnett Ot 272.4 03/22/2014 LON PA, DAPHNIE K Ot 397.0 03/22/2014 LON CULVER, DAPHNIE K Ot 401.9 03/22/2014 LON PA, [...] MD Ot V58.69 OTH MED,LT,CURRENT USE 04/16/2014 MINH WOODS, TELLO Razo Ot V12.54 PERSONAL HX OF TIA, CEREBRAL [...] PA, DAPHNIE Barnett Ot 397.0 06/25/2015 LON PA, DAPHNIE Barnett Ot 401.9 06/25/2015 LON PA, DAPHNIE Barnett [...] Munoz Ot I63.9 CEREBRAL INFARCTION, UNSPECIFIED 07/08/2015 MICHELLE WOODS, DOMI Munoz Ot I73.9 PERIPHERAL VASCULAR DISEASE, UNSPECIFIED 08/11/2016 NADIA BARTHOLOMEW MD Ot R63.4 ABNORMAL WEIGHT LOSS 08/11/2016 NADIA BARTHOLOMEW MD Ot Z01.818 ENCOUNTER FOR OTHER PREPROCEDURAL EXAMIN [...] HISTORY OF COLONIC POLYPS 08/13/2016 NADIA BARTHOLOMEW MD Ot Z87.11 PERSONAL HISTORY OF PEPTIC ULCER [...] HISTORY OF COLONIC POLYPS 08/18/2016 NADIA BARTHOLOMEW MD Ot Z87.11 PERSONAL HISTORY OF PEPTIC ULCER DISEASE 09/05/2016 NADIA BARTHOLOMEW MD Ot E78.5 HYPERLIPIDEMIA, UNSPECIFIED 09/05/2016 NADIA BARTHOLOMEW MD Ot I10 ESSENTIAL (PRIMARY) HYPERTENSION 09/05/2016 NADIA BARTHOLOMEW MD Ot K21.0 GASTRO-ESOPHAGEAL REFLUX DISEASE WITH ES 09/05/2016 NADIA BARTHOLOMEW MD Ot K29.70 GASTRITIS, UNSPECIFIED, WITHOUT BLEEDING 09/05/2016 NADIA BARTHOLOMEW MD Ot 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 [...] OF TOBACCO USE 09/06/2016 Ot V72.84 EXAM PRE- OPERATIVE NOS 09/06/2016 ERNESTO FRITZ MD Ot V72.84 EXAM PRE-OPERATIVE NOS 09/06/2016 ERNESTO FRITZ MD Ot 530.11 REFLUX ESOPHAGITIS 09/06/2016 ERNESTO FRITZ MD Ot 553.3 DIAPHRAGMATIC HERNIA 09/06/2016 ERNESTO FRITZ MD Ot 429.3 CARDIOMEGALY 09/06/2016 ERNESTO FRITZ MD Ot 530.81 ESOPHAGEAL REFLUX 09/06/2016 ERNESTO FRITZ MD Ot V72.63 PRE-PROCEDURAL LABORATORY EXAMINATION 09/06/2016 ERNESTO FRITZ MD Ot V72.81 EOYC-AKJ-CUDGIEXII CARDIOVASCULAR 09/06/2016 ERNESTO FRITZ MD Ot V72.83 EXAM PRE-OPERATIVE NEC 09/06/2016 CATRINA WOODS, ERNESTO S Ot V74.8 SCREEN-BACTERIAL DIS NEC 09/06/2016 CATRINA WOODS, ERNESTO S Ot V72.84 EXAM PRE-OPERATIVE NOS 09/06/2016 CATRINA WOODS, ERNESTO S Ot 530.81 ESOPHAGEAL REFLUX 09/06/2016 CATRINA WOODS, ERNESTO S Ot V45.89 POSTSURGICAL STATES NEC 09/06/2016 ERNESTO FRITZ MD S Ot V72.84 EXAM PRE-OPERATIVE NOS 09/06/2016 CATRINA WOODS, ERNSETO S Ot 530.11 REFLUX ESOPHAGITIS 09/06/2016 CATRINA WOODS, ERNESTO S Ot V45.89 POSTSURGICAL STATES NEC 09/06/2016 CATRINA WOODS, ERNESTO S Ot V72.84 EXAM PRE-OPERATIVE NOS 09/06/2016 DAPHNIE ODELL Ot 272.4 HYPERLIPIDEMIA NEC/NOS 09/06/2016 DAPHNIE ODELL Ot 397.0 TRICUSPID VALVE DISEASE 09/06/2016 DAPHNIE ODELL Ot 401.9 HYPERTENSION NOS 09/06/2016 DAPHNIE ODELL Ot 424.0 MITRAL VALVE DISORDER 09/06/2016 DAPHNIE ODELL Ot 786.09 RESPIRATORY ABNORM NEC 09/06/2016 MINH WOODS, TELLO Razo Ot 585.3 CHRONIC KIDNEY DISEASE, STAGE III (MODER 09/06/2016 MICHELLE WOODS, DOMI Munoz Ot E78.5 HYPERLIPIDEMIA, UNSPECIFIED 09/06/2016 MICHELLE WOODS, DOMI Munoz Ot I10 ESSENTIAL (PRIMARY) HYPERTENSION 09/06/2016 MICHELLE WOODS, DOMI Munoz Ot I63.9 CEREBRAL INFARCTION, UNSPECIFIED 09/06/2016 DOMI MARTINEZ MD Ot I73.9 PERIPHERAL VASCULAR DISEASE, UNSPECIFIED 09/07/2016 WILLIS DO SANDY Ot D64.9 ANEMIA, UNSPECIFIED 09/07/2016 WILLIS DO SANDY Ot E78.5 HYPERLIPIDEMIA, UNSPECIFIED 09/07/2016 WILLIS DO, SANDY Ot E86.0 DEHYDRATION 09/07/2016 LAZARO DO SANDY Ot F41.9 ANXIETY DISORDER, UNSPECIFIED 09/07/2016 WILLIS DO SANDY Ot I10 ESSENTIAL (PRIMARY) HYPERTENSION 09/07/2016 SANDY WILLIS DO Ot J18.9 PNEUMONIA, UNSPECIFIED ORGANISM 09/07/2016 SANDY WILLIS DO Ot K21.9 GASTRO-ESOPHAGEAL REFLUX DISEASE WITHOUT 09/07/2016 SANDY WILLIS DO Ot N19 UNSPECIFIED KIDNEY FAILURE 09/07/2016 SANDY WILLIS DO Ot R41.0 DISORIENTATION, UNSPECIFIED 09/07/2016 EDWIN WILLIS DOI Ot R61 GENERALIZED HYPERHIDROSIS 09/07/2016 SANDY WILLIS DO Ot R63.4 ABNORMAL WEIGHT LOSS 09/07/2016 SANDY WILLIS DO Ot Z79.82 RETIREMENT (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 OF ASPIRIN 09/07/2016 SANDY WILLIS DO Ot Z79.899 OTHER RETIREMENT (CURRENT) DRUG THERAPY 09/07/2016 SANDY WILLIS DO Ot Z86.73 PRSNL HX OF TIA (TIA), AND CEREB INFRC W 09/07/2016 EDWIN WILLIS DOI Ot Z87.891 PERSONAL HISTORY OF NICOTINE DEPENDENCE 01/04/2017 SANDY WILLIS DO Ot F17.210 NICOTINE DEPENDENCE, CIGARETTES, UNCOMPL 01/04/2017 SANDY WILLIS DO Ot F41.9 ANXIETY DISORDER, UNSPECIFIED 01/04/2017 EDWIN WILLIS DOI Ot G93.89 OTHER SPECIFIED DISORDERS OF BRAIN 01/04/2017 EDWIN WILLIS DOI Ot H40.9 UNSPECIFIED GLAUCOMA 01/04/2017 EDWIN WILLIS DOI Ot H53.2 DIPLOPIA 01/04/2017 EDWIN WILLIS DOI Ot H53.47 HETERONYMOUS BILATERAL FIELD DEFECTS 01/04/2017 EDWIN WILLIS DOI Ot H53.8 OTHER VISUAL DISTURBANCES 01/04/2017 EDWIN WILLIS DOI Ot I10 ESSENTIAL (PRIMARY) HYPERTENSION 01/04/2017 EDWIN WILLIS DOI Ot I35.8 OTHER NONRHEUMATIC AORTIC VALVE DISORDER 01/04/2017 SANDY WILLIS DO Ot I63.9 CEREBRAL INFARCTION, UNSPECIFIED 01/04/2017 EDWIN WILLSI DOI Ot I69.398 OTHER SEQUELAE OF CEREBRAL INFARCTION 01/04/2017 EDWIN WILILS DOI Ot 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 01/04/2017 SANDY WILLIS DO Ot J30.2 OTHER SEASONAL ALLERGIC RHINITIS 01/04/2017 SANDY WILLIS DO Ot K21.9 GASTRO-ESOPHAGEAL REFLUX DISEASE WITHOUT 01/04/2017 SANDY WILLIS DO Ot M19.91 PRIMARY OSTEOARTHRITIS, UNSPECIFIED SITE 01/04/2017 SANDY WILLIS DO, Ot R01.1 CARDIAC MURMUR, UNSPECIFIED 01/04/2017 SANDY WILLIS DO, Ot R29.702 NIHSS SCORE 2 01/04/2017 SANDY WILLIS DO Ot Z79.02 RETIREMENT (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 OF ANTITHROMBOTI 01/04/2017 SANDY WILLIS DO Ot Z86.73 PRSNL HX OF TIA (TIA), AND CEREB INFRC W 01/04/2017 SANDY WILLIS DO Ot Z87.11 PERSONAL HISTORY OF PEPTIC ULCER DISEASE 03/09/2017 TELLO WILKINSON MD, Ot I10 ESSENTIAL (PRIMARY) HYPERTENSION 03/09/2017 TELLO WILKINSON MD, Ot I10 ESSENTIAL (PRIMARY) HYPERTENSION 03/16/2017 TELLO WILKINSON MD, Ot I10 ESSENTIAL (PRIMARY) HYPERTENSION 03/29/2017 TELLO WILKINSON MD, Ot I12.9 HYPERTENSIVE CHRONIC KIDNEY DISEASE W ST 03/29/2017 TELLO WILKINSON MD, Ot N18.9 CHRONIC KIDNEY DISEASE, UNSPECIFIED Procedures Code Description Performed By Performed On 45.13 OTHER ENDOSCOPY OF INTEST 01/15/2009 99.10 INJECT/INFUSE THROMBOLYTIC AGENT 03/20/2014 [id number] INTRODUCE OTH THROMBOLYTIC IN PERIPH VEI 01/02/2017 Results Test Result Range Complete blood count (CBC) with automated white blood cell (WBC) differential - 09/05/16 20:54 Blood leukocytes automated count (number/volume) 10.7 10*3/uL 4.3-11.0 Blood erythrocytes automated count (number/volume) 4.27 10*6/uL 4.35-5.85 Venous blood hemoglobin measurement (mass/volume) 13.6 [...] Automated blood platelet mean volume measurement 9.8 [foz_us] 7.4-10.4 Automated blood neutrophils/100 leukocytes 76 % [...] Serum or plasma sodium measurement (moles/volume) 144 mmol/L 135-145 Serum or plasma potassium measurement (moles/volume) 3.5 mmol/L 3.6-5.0 Serum or plasma chloride measurement (moles/volume) 113 mmol/L 98-107 Carbon dioxide 19 mmol/L 21-32 Serum or plasma anion gap determination (moles/volume) 12 mmol/L 5-14 Serum or plasma urea nitrogen measurement (mass/volume) 13 mg/dL 7-18 Serum or plasma creatinine measurement (mass/volume) 1.33 mg/dL 0.60-1.30 Serum or plasma urea nitrogen/creatinine mass ratio 10 0 -20 Serum or plasma creatinine measurement with calculation [...] or plasma troponin i.cardiac measurement (mass/volume) < ng/ mL <0.30 Serum or plasma thyrotropin measurement by [...] Urine pH measurement by test strip 5 5-9 Specific gravity of urine by test strip 1.020 1.016- 1.022 Urine protein assay by test strip, semi-quantitative [...] 05:25 Blood leukocytes automated count (number/volume) 7.4 10*3/uL 4.3-11.0 Blood erythrocytes automated count (number/volume) 3.95 10*6/uL 4.35-5.85 Venous blood hemoglobin measurement (mass/volume) 12.8 [...] Automated blood platelet mean volume measurement 9.9 [foz_us] 7.4-10.4 Automated blood neutrophils/100 leukocytes 71 % [...] Serum or plasma sodium measurement (moles/volume) 143 mmol/L 135-145 Serum or plasma potassium measurement (moles/volume) 3.2 mmol/L 3.6-5.0 Serum or plasma chloride measurement (moles/volume) 114 mmol/L 98-107 Carbon dioxide 20 mmol/L 21-32 Serum or plasma anion gap determination (moles/volume) 9 mmol/L 5-14 Serum or plasma urea nitrogen measurement (mass/volume) 13 mg/dL 7-18 Serum or plasma creatinine measurement (mass/volume) 1.18 mg/dL 0.60-1.30 Serum or plasma urea nitrogen/creatinine mass ratio 11 0 -20 Serum or plasma creatinine measurement with calculation [...] plasma albumin measurement (mass/volume) 3.5 g/dL 3.2-4.5 Complete blood count (CBC) with automated white blood cell (WBC) differential - 01/02/17 14:46 Blood leukocytes automated count (number/volume) 5.9 10*3/uL 4.3-11.0 Blood erythrocytes automated count (number/volume) 3.98 10*6/uL 4.35-5.85 Venous blood hemoglobin measurement (mass/volume) 12.6 g/dL 11.5-16.0 Blood hematocrit (volume fraction) 39 % 35-52 Automated erythrocyte mean corpuscular volume 98 [foz_us] 80-99 Automated erythrocyte mean corpuscular hemoglobin (mass per erythrocyte) 32 pg 25-34 Automated erythrocyte mean corpuscular hemoglobin concentration measurement ( mass/volume) 33 g/dL 32-36 Automated erythrocyte distribution width ratio 13.2 % 10.0-14.5 Automated blood platelet count (count/volume) 142 10*3/uL 130-400 Automated blood platelet mean volume measurement 10.4 [foz_us] 7.4-10.4 Automated blood neutrophils/100 leukocytes 67 % 42-75 Automated blood lymphocytes/100 leukocytes 21 % 12-44 Blood monocytes/100 leukocytes 9 % 0-12 Automated blood eosinophils/100 leukocytes 3 % 0-10 Automated blood basophils/100 leukocytes 1 % 0-10 Blood neutrophils automated count (number/volume) 4.0 10*3 1.8-7.8 Blood lymphocytes automated count (number/volume) 1.2 10*3 1.0-4.0 Blood monocytes automated count (number/volume) 0.5 10*3 0.0-1.0 Automated eosinophil count 0.2 10*3/uL 0.0-0.3 Automated blood basophil count (count/volume) 0.0 10*3/uL 0.0-0.1 PT panel in platelet poor plasma by coagulation assay - 01/02/17 14:46 Prothrombin time (PT) in platelet poor plasma by coagulation assay 12.2 s 12.2-14.7 INR in platelet poor plasma or blood by coagulation assay 0.9 0.8-1.4 Activated partial thromboplastin time (aPTT) in platelet poor plasma bycoagulation assay - 01/02/17 14:46 Activated partial thromboplastin time (aPTT) in platelet poor plasma bycoagulation assay 25 s 24-35 Comprehensive metabolic panel - 01/02/17 14:46 Serum or plasma sodium measurement (moles/volume) 143 mmol/L 135-145 Serum or plasma potassium measurement (moles/volume) 3.4 mmol/L 3.6-5.0 Serum or plasma chloride measurement (moles/volume) 111 mmol/L 98-107 Carbon dioxide 22 mmol/L 21-32 Serum or plasma anion gap determination (moles/volume) 10 mmol/L 5-14 Serum or plasma urea nitrogen measurement (mass/volume) 15 mg/dL 7-18 Serum or plasma creatinine measurement (mass/volume) 1.33 mg/dL 0.60-1.30 Serum or plasma urea nitrogen/creatinine mass ratio 11 NRG Serum or plasma creatinine measurement with calculation of estimated glomerular filtration rate 39 NRG Serum or plasma glucose measurement (mass/volume) 121 mg/dL 70-105 Serum or plasma calcium measurement (mass/volume) 9.3 mg/dL 8.5-10.1 Serum or plasma total bilirubin measurement (mass/volume) 0.7 mg/dL 0.1-1.0 Serum or plasma alkaline phosphatase measurement (enzymatic activity/volume) 106 U/L 40-136 Serum or plasma aspartate aminotransferase measurement (enzymatic activity/ volume) 23 U/L 5-34 Serum or plasma alanine aminotransferase measurement (enzymatic activity/volume ) 20 U/L 0-55 Serum or plasma protein measurement (mass/volume) 6.4 g/dL 6.4-8.2 Serum or plasma albumin measurement (mass/volume) 3.8 g/dL 3.2-4.5 Serum or plasma troponin i.cardiac measurement (mass/volume) - 01/02/17 14:46 Serum or plasma troponin i.cardiac measurement (mass/volume) < ng/ mL <0.30 Fibrin D-dimer FEU measurement in platelet poor plasma (mass/volume) - 14:46 Fibrin D-dimer FEU measurement in platelet poor plasma (mass/volume) 0.40 ug/mL 0.00-0.49 Capillary blood glucose measurement by glucometer (mass/volume) - 01/02/17 14: 47 Capillary blood glucose measurement by glucometer (mass/volume) 107 mg/dL 70-110 Complete urinalysis with reflex to culture - 01/02/17 15:38 Urine color determination YELLOW NRG Urine clarity determination CLEAR NRG Urine pH measurement by test strip 6 5-9 Specific gravity of urine by test strip 1.020 1.016- 1.022 Urine protein assay by test strip, semi-quantitative 2+ NEGATIVE Urine glucose detection by automated test strip NEGATIVE NEGATIVE Erythrocytes detection in urine sediment by light microscopy NEGATIVE NEGATIVE Urine ketones detection by automated test strip NEGATIVE NEGATIVE Urine nitrite detection by test strip NEGATIVE NEGATIVE Urine total bilirubin detection by test strip NEGATIVE NEGATIVE Urine urobilinogen measurement by automated test strip (mass/volume) 1 mg/dL NORMAL Urine leukocyte esterase detection by dipstick 1+ NEGATIVE Automated urine sediment erythrocyte count by microscopy (number/high power field) NONE NRG Automated urine sediment leukocyte count by microscopy (number/high power field ) [HPF] NRG Bacteria detection in urine sediment by light microscopy TRACE NRG Crystals detection in urine sediment by light microscopy NONE NRG Casts detection in urine sediment by light microscopy NONE NRG Mucus detection in urine sediment by light microscopy NONE NRG Complete urinalysis with reflex to culture NO NRG Complete blood count (CBC) with automated white blood cell (WBC) differential - 01/03/17 04:30 Blood leukocytes automated count (number/volume) 6.1 10*3/uL 4.3-11.0 Blood erythrocytes automated count (number/volume) 3.82 10*6/uL 4.35-5.85 Venous blood hemoglobin measurement (mass/volume) 11.9 g/dL 11.5-16.0 Blood hematocrit (volume fraction) 37 % 35-52 Automated erythrocyte mean corpuscular volume 98 [foz_us] 80-99 Automated erythrocyte mean corpuscular hemoglobin (mass per erythrocyte) 31 pg 25-34 Automated erythrocyte mean corpuscular hemoglobin concentration measurement ( mass/volume) 32 g/dL 32-36 Automated erythrocyte distribution width ratio 13.1 % 10.0-14.5 Automated blood platelet count (count/volume) 137 10*3/uL 130-400 Automated blood platelet mean volume measurement 10.2 [foz_us] 7.4-10.4 Automated blood neutrophils/100 leukocytes 68 % 42-75 Automated blood lymphocytes/100 leukocytes 22 % 12-44 Blood monocytes/100 leukocytes 8 % 0-12 Automated blood eosinophils/100 leukocytes 3 % 0-10 Automated blood basophils/100 leukocytes 1 % 0-10 Blood neutrophils automated count (number/volume) 4.1 10*3 1.8-7.8 Blood lymphocytes automated count (number/volume) 1.3 10*3 1.0-4.0 Blood monocytes automated count (number/volume) 0.5 10*3 0.0-1.0 Automated eosinophil count 0.2 10*3/uL 0.0-0.3 Automated blood basophil count (count/volume) 0.0 10*3/uL 0.0-0.1 Comprehensive metabolic panel - 01/03/17 04:30 Serum or plasma sodium measurement (moles/volume) 142 mmol/L 135-145 Serum or plasma potassium measurement (moles/volume) 3.4 mmol/L 3.6-5.0 Serum or plasma chloride measurement (moles/volume) 111 mmol/L 98-107 Carbon dioxide 21 mmol/L 21-32 Serum or plasma anion gap determination (moles/volume) 10 mmol/L 5-14 Serum or plasma urea nitrogen measurement (mass/volume) 12 mg/dL 7-18 Serum or plasma creatinine measurement (mass/volume) 1.15 mg/dL 0.60-1.30 Serum or plasma urea nitrogen/creatinine mass ratio 10 NRG Serum or plasma creatinine measurement with calculation of estimated glomerular filtration rate 47 NRG Serum or plasma glucose measurement (mass/volume) 91 mg/dL 70-105 Serum or plasma calcium measurement (mass/volume) 8.7 mg/dL 8.5-10.1 Serum or plasma total bilirubin measurement (mass/volume) 0.6 mg/dL 0.1-1.0 Serum or plasma alkaline phosphatase measurement (enzymatic activity/volume) 98 U/L 40-136 Serum or plasma aspartate aminotransferase measurement (enzymatic activity/ volume) 19 U/L 5-34 Serum or plasma alanine aminotransferase measurement (enzymatic activity/volume ) 17 U/L 0-55 Serum or plasma protein measurement (mass/volume) 5.4 g/dL 6.4-8.2 Serum or plasma albumin measurement (mass/volume) 3.2 g/dL 3.2-4.5 Serum or plasma phosphate measurement (mass/volume) - 01/03/17 04:30 Serum or plasma phosphate measurement (mass/volume) 3.5 mg/dL 2.3-4.7 Magnesium - 01/03/17 04:30 Magnesium 1.6 mg/dL 1.8-2.4 Lipid 1996 panel - 01/03/17 04:30 Serum or plasma triglyceride measurement (mass/volume) 79 mg/dL <150 Serum or plasma cholesterol measurement (mass/volume) 134 mg/dL < 200 Serum or plasma cholesterol in HDL measurement (mass/volume) 57 mg/ dL 40-60 Cholesterol in LDL [mass/volume] in serum or plasma by direct assay 59 mg/dL 1-129 Serum or plasma cholesterol in VLDL measurement (mass/volume) 16 mg/ dL 5-40 Complete blood count (CBC) with automated white blood cell (WBC) differential - 01/04/17 05:20 Blood leukocytes automated count (number/volume) 5.7 10*3/uL 4.3-11.0 Blood erythrocytes automated count (number/volume) 3.94 10*6/uL 4.35-5.85 Venous blood hemoglobin measurement (mass/volume) 12.4 g/dL 11.5-16.0 Blood hematocrit (volume fraction) 38 % 35-52 Automated erythrocyte mean corpuscular volume 97 [foz_us] 80-99 Automated erythrocyte mean corpuscular hemoglobin (mass per erythrocyte) 32 pg 25-34 Automated erythrocyte mean corpuscular hemoglobin concentration measurement ( mass/volume) 32 g/dL 32-36 Automated erythrocyte distribution width ratio 13.1 % 10.0-14.5 Automated blood platelet count (count/volume) 139 10*3/uL 130-400 Automated blood platelet mean volume measurement 10.4 [foz_us] 7.4-10.4 Automated blood neutrophils/100 leukocytes 59 % 42-75 Automated blood lymphocytes/100 leukocytes 26 % 12-44 Blood monocytes/100 leukocytes 12 % 0-12 Automated blood eosinophils/100 leukocytes 3 % 0-10 Automated blood basophils/100 leukocytes 1 % 0-10 Blood neutrophils automated count (number/volume) 3.4 10*3 1.8-7.8 Blood lymphocytes automated count (number/volume) 1.5 10*3 1.0-4.0 Blood monocytes automated count (number/volume) 0.7 10*3 0.0-1.0 Automated eosinophil count 0.2 10*3/uL 0.0-0.3 Automated blood basophil count (count/volume) 0.0 10*3/uL 0.0-0.1 Whole blood basic metabolic panel - 01/04/17 05:20 Serum or plasma sodium measurement (moles/volume) 141 mmol/L 135-145 Serum or plasma potassium measurement (moles/volume) 3.6 mmol/L 3.6-5.0 Serum or plasma chloride measurement (moles/volume) 110 mmol/L 98-107 Carbon dioxide 22 mmol/L 21-32 Serum or plasma anion gap determination (moles/volume) 9 mmol/L 5-14 Serum or plasma urea nitrogen measurement (mass/volume) 10 mg/dL 7-18 Serum or plasma creatinine measurement (mass/volume) 0.94 mg/dL 0.60-1.30 Serum or plasma urea nitrogen/creatinine mass ratio 11 NRG Serum or plasma creatinine measurement with calculation of estimated glomerular filtration rate 59 NRG Serum or plasma glucose measurement (mass/volume) 91 mg/dL 70-105 Serum or plasma calcium measurement (mass/volume) 9.0 mg/dL 8.5-10.1 Serum or plasma phosphate measurement (mass/volume) - 01/04/17 05:20 Serum or plasma phosphate measurement (mass/volume) 3.0 mg/dL 2.3-4.7 Magnesium - 01/04/17 05:20 Magnesium 1.8 mg/dL 1.8-2.4 Capillary blood glucose measurement by glucometer (mass/volume) - 01/04/17 12: 32 Capillary blood glucose measurement by glucometer (mass/volume) 106 mg/dL 70-110 Encounters ACCT No. Visit Date/Time Discharge Status Pt. Type Provider Facility Loc./Unit Complaint [id number] 03/16/2017 08:00:00 03/16/2017 23:59:59 CLS Outpatient TELLO WILKINSON MD [facility] RAD HTN [id number] 01/02/2017 16:08:00 01/04/2017 14:15:00 DIS Inpatient SANDY WILLIS DO [facility] ICU COMPLETE LEFT HEMIANOPSIA ,HEADACHE [id number] 09/05/2016 23:25:00 09/07/2016 15:45:00 DIS Outpatient SANDY WILLIS DO [facility] 4TH GENERALIZED WEAKNESS; ALTERED MENTAL STATUS; UTI [id number] 08/13/2016 10:34:00 08/13/2016 13:18:00 DIS Outpatient NADIA BARTHOLOMEW MD [facility] ENDO WEIGHT LOSS/HX POLYPS [id number] 08/11/2016 05:49:00 08/11/2016 14:46:00 DIS Outpatient NADIA BARTHOLOMEW MD [facility] PREOP WEIGHT LOSS/HX POLYPS [id number] 06/25/2015 09:00:00 06/25/2015 23:59:59 CLS Outpatient DOMI MARTINEZ MD [facility] CARD CAD,CLAUDICATIONS, HTN HLP CVA [id number] 04/11/2014 14:55:00 04/25/2014 10:55:00 DIS Outpatient TELLO WILKINSON MD [facility] REHAB CVA [id number] 04/16/2014 14:19:00 04/16/2014 15:13:00 DIS Outpatient TELLO WILKINSON MD [facility] REHAB CVA [id number] 04/10/2014 07:45:00 04/10/2014 12:42:00 DIS Outpatient DOMI MARTINEZ MD [facility] CATH CVA,CAROTID STENOSIS,HTN ,HLP [id number] 03/22/2014 11:32:00 03/26/2014 11:45:00 DIS Inpatient JERICA GILLIAM MD [facility] IRF IRF-CVA [id number] 03/20/2014 14:40:00 03/22/2014 11:00:00 DIS Inpatient IWONA SINGH MD [facility] ICU CVA RIGHT SIDED WEAKNESS [id number] 12/12/2013 08:09:00 12/12/2013 23:59:59 CLS Outpatient TELLO WILKINSON MD [facility] RAD CKD 3 [id number] 11/07/2013 10:45:00 11/07/2013 23:59:59 CLS Outpatient DAPHNIE ODELL [facility] CARD CAROTID ARTERY STENOSIS,HTN,HLP,DYSPNEA [id number] 07/19/2013 07:02:00 07/19/2013 23:59:59 CLS Outpatient ERNESTO FRITZ MD [facility] SDC GERD [id number] 07/11/2013 07:29:00 07/11/2013 23:59:59 CLS Outpatient ERNESTO FRITZ MD [facility] PREOP GERD [id number] 12/28/2012 08:03:00 12/28/2012 23:59:59 CLS Outpatient ERNESTO FRITZ MD [facility] REFLUX [id number] 12/27/2012 07:12:00 12/27/2012 23:59:59 CLS Outpatient ERNESTO FRITZ MD [facility] PREOP REFLUX [id number] 10/26/2012 07:07:00 10/26/2012 11:35:00 DIS Outpatient ERNESTO FRITZ MD [facility] GERD [id number] 10/25/2012 07:22:00 10/25/2012 23:59:59 CLS Outpatient ERNESTO FRITZ MD [facility] PREOP GERD [id number] 09/13/2012 07:30:00 09/15/2012 17:27:00 DIS Outpatient ERNESTO FRIZT MD [facility] GASTROESOPHAGEAL REFLUX DISEASE [id number] 09/08/2012 12:15:00 09/08/2012 23:59:59 CLS Outpatient ERNESTO FRITZ MD [facility] PREOP GERD [id number] 08/31/2012 07:17:00 08/31/2012 23:59:59 CLS Outpatient ERNESTO FRITZ MD [facility] GERD [id number] 08/30/2012 07:17:00 08/30/2012 23:59:59 CLS Outpatient ERNESTO FIRTZ MD [facility] PREOP GERD [id number] 03/22/2014 15:43:00 Document Registration [id number] 03/22/2014 15:43:00 Document Registration [id number] 03/22/2014 15:43:00 Document Registration [id number] 03/22/2014 15:43:00 Document Registration [id number] 06/22/2012 08:16:00 Document Registration [id number] 06/21/2012 08:10:00 Document Registration [id number] 02/16/2012 13:08:00 Document Registration [id number] 12/29/2011 10:50:00 Document Registration [id number] 11/25/2011 11:45:00 Document Registration [id number] 12/18/2010 10:24:00 Document Registration [id number] 10/20/2010 13:35:00 Document Registration [id number] 09/28/2010 10:33:00 Document Registration [id number] 09/24/2010 13:48:00 Document Registration [id number] 06/18/2010 12:28:00 Document Registration [id number] 04/21/2010 00:00:00 Document Registration [id number] 04/14/2010 13:40:00 Document Registration [id number] 03/30/2010 13:42:00 Document Registration [id number] 03/27/2010 10:20:00 Document Registration [id number] 03/17/2010 19:50:00 Document Registration [id number] 01/14/2010 19:10:00 Document Registration [id number] 12/18/2009 10:20:00 Document Registration [id number] 12/16/2009 09:23:00 Document Registration [id number] 09/22/2009 10:14:00 Document Registration [id number] 09/11/2009 09:36:00 Document Registration [id number] 08/25/2009 09:20:00 Document Registration [id number] 07/30/2009 11:44:00 Document Registration [id number] 02/26/2009 11:04:00 Document Registration [id number] 01/22/2009 16:12:00 Document Registration [id number] 12/28/2008 16:48:00 Document Registration [id number] 10/16/2008 09:11:00 Document Registration
[2017-05-18 11:23] VITALS: BP 146/77
--- NOTE | 2017-05-18 11:57 | Implantation of Loop Monitor ---
Implant of Loop Monitior IMPLANTATION OF LOOP MONITOR REPORT DATE OF PROCEDURE: 05/18/17 PREOP DIAGNOSIS: cryptogenic stroke POSTOP DIAGNOSIS: cryptogenic stroke PROCEDURE DETAILS: The patient is a 72 female with history of paroxysmal atrial fibrillation requiring long-term surveillance. Therefore implantable loop recorder was discussed and agreed with the patient. Informed consent was taken. All risks and complications were discussed at length. The patient was draped and prepped in the usual sterile fashion. Local anesthesia was lidocaine, which was given in the substernal area close to the 4th intercostal space. Loop monitor Retina Implant with serial number [id number] was implanted according to the protocol. Steri-Strips were placed at the end of the procedure. There were no complications and the patient tolerated the procedure well. The device was interrogated with a voltage of. ANESTHESIA: Local anesthesia with lidocaine. COMPLICATIONS: None CONTRAST/FLUOROSCOPY: None CONCLUSION: 1. Successful implantation of loop monitor for recurrent syncope. 2. No complication and the patient tolerated the procedure well. DOMI MARTINEZ MD May 18, 2017 11:57
== END | disposition home or self-care (01) ==
LOC: CATH 10:03
PROVIDERS: ATTEND Internal Medicine Cardiovascular Disease
DX: I63.9 Cerebral infarction, unspecified (principal); I65.23 Occlusion and stenosis of bilateral carotid arteries; E78.5 Hyperlipidemia, unspecified; I10 Essential (primary) hypertension; F32.9 Major depressive disorder, single episode, unspecified; Z87.891 Personal history of nicotine dependence; Z79.899 Other long term (current) drug therapy
CPT/HCPCS: 33282

== ENCOUNTER 2017-11-26 08:38 | Emergency (ER) | payer MEDICARE ==
[~2017-11-26] VITALS: Ht 162.6 cm; Wt 72.6 kg
[~2017-11-26 08:38] MED LIST changes: -AMLO5TAB2 PO; +AMLO5TAB7 PO; -LIDOCAINE 1% INJ 50 ML (XYLOCAINE) VIAL ONE; -PENT400T2 PO; +PENT400T9 PO
--- OUTSIDE RECORDS SUMMARY | 2017-11-26 08:42 | XMS REPORT | Clinical Summary ---
Author Author [facility] Organization [facility] Address Unknown Phone Unavailable Care Team Providers Care Yarn Hauler Name Role Phone Hellen Tomas RN Unavailable Unavailable Oriana Watts MD PCP Source Comments Some departments are not documenting in the electronic medical record. If you do not see the information that you expected, contact Release of Information in the Health Information Management department at [phone] for further assistance in locating additional records.[facility] Allergies Not on File Current Medications [...] SCREENING 1985 COLORECTAL CANCER 1995 SCREENING SHINGLES RECOMBINANT 1995 VACCINE (1 of 2) OSTEOPOROSIS SCREENING 2010 PNEUMONIA (PCV13/PPSV23) 2010 VACCINES (1 of 2 - PCV13) INFLUENZA VACCINE 12/19/2017 Results Not on filefrom Last 3 Months
--- OUTSIDE RECORDS SUMMARY | 2017-11-26 08:47 | XMS REPORT | Continuity of Care Document ---
Author Author [facility] Organization [facility] Address Unknown Phone Unavailable Allergies Active Description Code Type Severity Reaction Onset Reported/Identified Relationship to Patient Clinical Status Yes NO KNOWN DRUG ALLERGIES UNKNOWN NO KNOWN DRUG ALLERG Yes NKDA NKDA Mild N/ A 09/01/2008 Yes No Known Drug Allergies [id number] Drug Allergy Unknown N/A 08/13/2016 Medications There [...] FRITZ MD Ot 530.11 REFLUX ESOPHAGITIS 10/26/2012 ERNESTO FRITZ MD Ot V45.89 POSTSURGICAL STATES NEC 03/22/2014 IWONA SINGH MD Ot 272.4 HYPERLIPIDEMIA NEC/NOS 03/22/2014 SANDNESS MD, IWONA M Ot 342.90 UNSPEC HEMIPLEGIA HEMIPARESIS UNSPEC S [...] Hernandez Ot V72.84 03/22/2014 CATRINA WOODS, ERNESTO S [...] S Ot V72.84 03/22/2014 LON PA, DAPHNIE K Ot 272.4 03/22/2014 LON PA, DAPHNIE K [...] Ot V15.82 HISTORY OF TOBACCO USE 03/26/2014 TAWANA WOODS, JERICA Vogel Ot V17.1 FAMILY HX-STROKE 03/26/2014 TAWANA WOODS, JERICA Vogel Ot V57.89 REHABILITATION PROC NEC 04/10/2014 DOMI MARTINEZ MD Ot 272.4 HYPERLIPIDEMIA NEC/NOS 04/10/2014 DOIM MARTINEZ MD Ot 403.90 HYPTNSV CHR KID [...] PERSONAL HX OF TIA, CEREBRAL INFARCTION 04/16/2014 TELLO WILKINSON MD Ot V57.1 PHYSICAL THERAPY NEC 04/23/2014 TELLO [...] Barnett Ot 397.0 06/25/2015 LON PA, DAPHNIE K Ot 401.9 06/25/2015 LON PA, DAPHNIE K Ot 424.0 06/25/2015 LON PA, DAPHNIE K Ot 786.09 06/25/2015 MINH WOODS, TELLO Razo Ot 585.3 06/26/2015 MICHELLE WOODS, DOMI Munoz Ot E78.5 06/26/2015 MICHELLE WOODS, DOMI Munoz Ot I10 06/26/2015 MICHELLE WOODS, DOMI Munoz Ot I63.9 06/26/2015 MICHELLE WOODS, DOMI Munoz Ot I73.9 07/08/2015 MICHELLE WOODS, DOMI Munoz Ot E78.5 HYPERLIPIDEMIA, UNSPECIFIED 07/08/2015 DOMI MARTINEZ MD Ot I10 ESSENTIAL (PRIMARY) HYPERTENSION 07/08/2015 MICHELLE WOODS, DOMI Munoz Ot I63.9 CEREBRAL INFARCTION, UNSPECIFIED 07/08/2015 DOMI MARTINEZ MD Ot I73.9 PERIPHERAL VASCULAR DISEASE, UNSPECIFIED 08/11/2016 NADIA BARTHOLOMEW MD Ot R63.4 ABNORMAL WEIGHT LOSS 08/11/2016 NADIA BARTHOLOMEW MD Ot Z01.818 ENCOUNTER FOR OTHER PREPROCEDURAL EXAMIN 08/11/2016 NADIA BARTHOLOMEW MD Ot Z86.010 PERSONAL HISTORY OF COLONIC POLYPS 08/11/2016 NADIA BARTHOLOMEW MD, Ot Z87.11 PERSONAL HISTORY OF PEPTIC ULCER DISEASE 08/13/2016 NADIA BARTHOLOMEW MD, Ot E78.5 HYPERLIPIDEMIA, UNSPECIFIED 08/13/2016 NADIA BARTHOLOMEW [...] MD Ot I10 ESSENTIAL (PRIMARY) HYPERTENSION 08/18/2016 NDAIA BARTHOLOMEW MD Ot K21.0 GASTRO-ESOPHAGEAL REFLUX DISEASE [...] W/O PERFORATION OR AB 09/05/2016 NADIA BARTHOLOMEW MD Ot K64.1 SECOND DEGREE HEMORRHOIDS 09/05/2016 NADIA [...] EXAMINATION 09/06/2016 ERNESTO FRITZ MD Ot V72.81 QZMG-MKH-SAXPIRIUK CARDIOVASCULAR 09/06/2016 CATRINA WOODS, ERNESTO S Ot V72.83 EXAM PRE-OPERATIVE NEC 09/06/2016 CATRINA [...] MD Ot E78.5 HYPERLIPIDEMIA, UNSPECIFIED 09/06/2016 DOMI MARTINZE MD Ot I10 ESSENTIAL (PRIMARY) HYPERTENSION 09/06/2016 DOMI MARTINEZ MD Ot I63.9 CEREBRAL INFARCTION, UNSPECIFIED 09/06/2016 DOMI MARTINEZ MD Ot I73.9 PERIPHERAL VASCULAR DISEASE, UNSPECIFIED 09/07/2016 LAZARO DO SANDY Ot D64.9 ANEMIA, UNSPECIFIED 09/07/2016 LAZARO DO SANDY Ot E78.5 HYPERLIPIDEMIA, UNSPECIFIED 09/07/2016 WILLIS DO SANDY Ot E86.0 DEHYDRATION 09/07/2016 LAZARO DO SANDY Ot F41.9 ANXIETY DISORDER, UNSPECIFIED 09/07/2016 SANDY WILLIS DO Ot I10 ESSENTIAL (PRIMARY) HYPERTENSION 09/07/2016 SANDY WILLIS DO Ot J18.9 PNEUMONIA, UNSPECIFIED ORGANISM 09/07/2016 SANDY WILLIS DO Ot K21.9 GASTRO-ESOPHAGEAL REFLUX DISEASE WITHOUT 09/07/2016 SANDY WILLIS DO Ot N19 UNSPECIFIED KIDNEY FAILURE 09/07/2016 SANDY WILLIS DO Ot R41.0 DISORIENTATION, UNSPECIFIED 09/07/2016 SANDY WILLIS DO Ot R61 GENERALIZED HYPERHIDROSIS 09/07/2016 SANDY WILLIS DO Ot R63.4 ABNORMAL WEIGHT LOSS 09/07/2016 SANDY WILLIS DO Ot Z79.82 MCC (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 OF ASPIRIN 09/07/2016 SANDY WILLIS DO Ot Z79.899 OTHER PEDIATRIC AUDIOLOGIST (CURRENT) DRUG THERAPY 09/07/2016 SANDY WILLIS DO Ot Z86.73 PRSNL HX OF TIA (TIA), AND CEREB INFRC W 09/07/2016 SANDY WILLIS DO Ot Z87.891 PERSONAL HISTORY OF NICOTINE DEPENDENCE 11/30/2016 TELLO WILKINSON 252.01 PRIMARY HYPERPARATHYROIDISM 11/30/2016 TELLO WILKINSON E21.0 PRIMARY HYPERPARATHYROIDISM 11/30/2016 TELLO WILKINSON 252.01 PRIMARY HYPERPARATHYROIDISM 11/30/2016 TELLO WILKINSON 729.1 MYALGIA AND MYOSITIS, UNSPECIFIED 11/30/2016 TELLO WILKINSON 780.79 OTHER MALAISE AND FATIGUE 11/30/2016 TELLO WILKINSON 780.8 GENERALIZED HYPERHIDROSIS 11/30/2016 TELLO WILKINSON E21.0 PRIMARY HYPERPARATHYROIDISM 11/30/2016 TELLO WILKINSON M79.7 FIBROMYALGIA 11/30/2016 TELLO WILKINSON R54 AGE-RELATED PHYSICAL DEBILITY 11/30/2016 TELLO WILKINSON R61 GENERALIZED HYPERHIDROSIS 11/30/2016 TELLO WILKINSON 252.01 PRIMARY HYPERPARATHYROIDISM 11/30/2016 TELLO WILKINSON 729.1 MYALGIA AND MYOSITIS, UNSPECIFIED 11/30/2016 TELLO WILKINSON 780.79 OTHER MALAISE AND FATIGUE 11/30/2016 TELLO WILKINSON 780.8 GENERALIZED HYPERHIDROSIS 11/30/2016 TELLO WILKINSON W E21.0 PRIMARY HYPERPARATHYROIDISM 11/30/2016 TELLO WILKINSON W M79.7 FIBROMYALGIA 11/30/2016 TELLO WILKINSON W R54 AGE-RELATED PHYSICAL DEBILITY 11/30/2016 TELLO WILKINSON W R61 GENERALIZED HYPERHIDROSIS 11/30/2016 TELLO WILKINSON W 252.01 PRIMARY HYPERPARATHYROIDISM 11/30/2016 TELLO WILKINSON W 729.1 MYALGIA AND MYOSITIS, UNSPECIFIED 11/30/2016 TELLO WILKINSON W 780.79 OTHER MALAISE AND FATIGUE 11/30/2016 TELLO WILKINSON W 780.8 GENERALIZED HYPERHIDROSIS 11/30/2016 TELLO WILKINSON W E21.0 PRIMARY HYPERPARATHYROIDISM 11/30/2016 TELLO WILKINSON Theodora M79.7 FIBROMYALGIA 11/30/2016 TELLO WILKINSON Theodora R54 AGE-RELATED PHYSICAL DEBILITY 11/30/2016 TELLO WILKINSON Theodora R61 GENERALIZED HYPERHIDROSIS 01/04/2017 EDWIN WILLIS DOI Ot F17.210 NICOTINE DEPENDENCE, CIGARETTES, UNCOMPL 01/04/2017 LAZARO ALEXANDER SANDY Ot F41.9 ANXIETY DISORDER, UNSPECIFIED 01/04/2017 LAZARO ALEXANDER SANDY Ot G93.89 OTHER SPECIFIED DISORDERS OF BRAIN 01/04/2017 LAZARO ALEXANDER SANDY Ot H40.9 UNSPECIFIED GLAUCOMA 01/04/2017 LAZARO ALEXANDER SANDY Ot H53.2 DIPLOPIA 01/04/2017 LAZARO ALEXANDER SANDY Ot H53.47 HETERONYMOUS BILATERAL FIELD DEFECTS 01/04/2017 LAZARO ALEXANDER SANDY Ot H53.8 OTHER VISUAL DISTURBANCES 01/04/2017 LAZARO ALEXANDER SANDY Ot I10 ESSENTIAL (PRIMARY) HYPERTENSION 01/04/2017 LAZARO ALEXANDER SANDY Ot I35.8 OTHER NONRHEUMATIC AORTIC VALVE DISORDER 01/04/2017 EDWIN WILLIS DOI Ot I63.9 CEREBRAL INFARCTION, UNSPECIFIED 01/04/2017 EDWIN WILLIS DOI Ot I69.398 OTHER SEQUELAE OF CEREBRAL INFARCTION 01/04/2017 LAZARO ALEXANDER SANDY Ot 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 01/04/2017 EDWIN WILLIS DOI Ot J30.2 OTHER SEASONAL ALLERGIC RHINITIS 01/04/2017 LAZARO ALEXANDER SANDY Ot K21.9 GASTRO-ESOPHAGEAL REFLUX DISEASE WITHOUT 01/04/2017 SANDY WILLIS DO Ot M19.91 PRIMARY OSTEOARTHRITIS, UNSPECIFIED SITE 01/04/2017 SANDY WILLIS DO Ot R01.1 CARDIAC MURMUR, UNSPECIFIED 01/04/2017 SANDY WILLIS DO Ot R29.702 NIHSS SCORE 2 01/04/2017 SANDY WILLIS DO Ot Z79.02 MCC (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 OF ANTITHROMBOTI 01/04/2017 SANDY WILLIS DO Ot Z86.73 PRSNL HX OF TIA (TIA), AND CEREB INFRC W 01/04/2017 EDWIN WILLIS DOI Ot Z87.11 PERSONAL HISTORY OF PEPTIC ULCER DISEASE 03/07/2017 TELLO WILKINSON W 272.4 OTHER AND UNSPECIFIED HYPERLIPIDEMIA 03/07/2017 TELLO WILKINSON W 401.0 MALIGNANT ESSENTIAL HYPERTENSION 03/07/2017 TELLO WILKINSON E78.5 HYPERLIPIDEMIA, UNSPECIFIED 03/07/2017 TELLO WILKINSON I10 ESSENTIAL (PRIMARY) HYPERTENSION 03/07/2017 TELLO WILKINSON W 272.4 OTHER AND UNSPECIFIED HYPERLIPIDEMIA 03/07/2017 TELLO WILKINSON W 401.0 MALIGNANT ESSENTIAL HYPERTENSION 03/07/2017 TELLO WILKINSON E78.5 HYPERLIPIDEMIA, UNSPECIFIED 03/07/2017 TELLO WILKINSON W I10 ESSENTIAL (PRIMARY) HYPERTENSION 03/09/2017 TELLO WILKINSON MD Ot I10 ESSENTIAL (PRIMARY) HYPERTENSION 03/09/2017 TELLO WILKINSON MD Ot I10 ESSENTIAL (PRIMARY) HYPERTENSION 03/16/2017 TELLO WILKINSON MD Ot I10 ESSENTIAL (PRIMARY) HYPERTENSION 03/29/2017 TELLO WILKINSON MD Ot I12.9 HYPERTENSIVE CHRONIC KIDNEY DISEASE W ST 03/29/2017 TELLO WILKINSON MD Ot N18.9 CHRONIC KIDNEY DISEASE, UNSPECIFIED 05/17/2017 Ot 272.4 HYPERLIPIDEMIA NEC/NOS 05/17/2017 Ot 401.9 HYPERTENSION NOS 05/17/2017 Ot 429.2 ASCVD 05/17/2017 Ot 786.2 COUGH 05/17/2017 Ot V15.82 HISTORY OF TOBACCO USE 05/17/2017 Ot V72.84 EXAM PRE- OPERATIVE NOS 05/17/2017 CATRINA WOODS, ERNESTO Hernandez Ot V72.84 EXAM PRE-OPERATIVE NOS 05/17/2017 CATRINA WOODS, ERNESTO S Ot 530.11 REFLUX ESOPHAGITIS 05/17/2017 CATRINA WOODS, ERNESTO Hernandez Ot 553.3 DIAPHRAGMATIC HERNIA 05/17/2017 CATRINA WOODS, ERNESTO Hernandez Ot 429.3 CARDIOMEGALY 05/17/2017 CATRINA WOODS, ERNESTO S Ot 530.81 ESOPHAGEAL REFLUX 05/17/2017 CATRINA WOODS, ERNESTO Hernandez Ot V72.63 PRE-PROCEDURAL LABORATORY EXAMINATION 05/17/2017 ERNESTO FRITZ MD Ot V72.81 RAKZ-HPI-AMNITHBEP CARDIOVASCULAR 05/17/2017 ERNESTO FRITZ MD Ot V72.83 EXAM PRE-OPERATIVE NEC 05/17/2017 ERNESTO FRITZ MD Ot V74.8 SCREEN-BACTERIAL DIS NEC 05/17/2017 ERNESTO FRITZ MD Ot V72.84 EXAM PRE-OPERATIVE NOS 05/17/2017 CATRINA WOODS, ERNESTO S Ot 530.81 ESOPHAGEAL REFLUX 05/17/2017 ERNESTO FRITZ MD Ot V45.89 POSTSURGICAL STATES NEC 05/17/2017 ERNESTO FRITZ MD S Ot V72.84 EXAM PRE-OPERATIVE NOS 05/17/2017 CATRINA WOODS, ERNESTO S Ot 530.11 REFLUX ESOPHAGITIS 05/17/2017 ERNESTO FRITZ MD Ot V45.89 POSTSURGICAL STATES NEC 05/17/2017 ERNESTO FRITZ MD S Ot V72.84 EXAM PRE-OPERATIVE NOS 05/17/2017 DAPHNIE ODELL Ot 272.4 HYPERLIPIDEMIA NEC/NOS 05/17/2017 DAPHNIE ODELL Ot 397.0 TRICUSPID VALVE DISEASE 05/17/2017 DAPHNIE ODELL Ot 401.9 HYPERTENSION NOS 05/17/2017 DAPHNIE ODELL Ot 424.0 MITRAL VALVE DISORDER 05/17/2017 DAPHNIE ODELL Ot 786.09 RESPIRATORY ABNORM NEC 05/17/2017 MINH WOODS, TELLO Razo Ot 585.3 CHRONIC KIDNEY DISEASE, STAGE III (MODER 05/17/2017 MICHELLE WOODS, DOMI Munoz Ot E78.5 HYPERLIPIDEMIA, UNSPECIFIED 05/17/2017 DOMI MARTINEZ MD Ot I10 ESSENTIAL (PRIMARY) HYPERTENSION 05/17/2017 DOMI MARTINEZ MD Ot I63.9 CEREBRAL INFARCTION, UNSPECIFIED 05/17/2017 MICHELLE WOODS, DOMI Munoz Ot I73.9 PERIPHERAL VASCULAR DISEASE, UNSPECIFIED 05/17/2017 MINH WOODS, TELLO Razo Ot I12.9 HYPERTENSIVE CHRONIC KIDNEY DISEASE W ST 05/17/2017 MINH WOODS, TELLO Razo Ot N18.9 CHRONIC KIDNEY DISEASE, UNSPECIFIED 05/19/2017 DOMI MARTINEZ MD Ot E78.5 HYPERLIPIDEMIA, UNSPECIFIED 05/19/2017 DOMI MARTINEZ MD Ot F32.9 MAJOR DEPRESSIVE DISORDER, SINGLE EPISOD 05/19/2017 DOMI MARTINEZ MD Ot I10 ESSENTIAL (PRIMARY) HYPERTENSION 05/19/2017 DOMI MARTINEZ MD Ot I63.9 CEREBRAL INFARCTION, UNSPECIFIED 05/19/2017 DOMI MARTINEZ MD Ot I65.23 OCCLUSION AND STENOSIS OF BILATERAL SENA 05/19/2017 DOMI MARTINEZ MD Ot Z79.899 OTHER PEDIATRIC AUDIOLOGIST (CURRENT) DRUG THERAPY 05/19/2017 DOMI MARTINEZ MD Ot Z87.891 PERSONAL HISTORY OF NICOTINE DEPENDENCE 05/24/2017 DOMI MARTINEZ MD Ot E78.5 HYPERLIPIDEMIA, UNSPECIFIED 05/24/2017 DOMI MARTINEZ MD Ot F32.9 MAJOR DEPRESSIVE DISORDER, SINGLE EPISOD 05/24/2017 DOMI MARTINEZ MD Ot I10 ESSENTIAL (PRIMARY) HYPERTENSION 05/24/2017 DOMI MARTINEZ MD Ot I63.9 CEREBRAL INFARCTION, UNSPECIFIED 05/24/2017 DOMI MARTINEZ MD Ot I65.23 OCCLUSION AND STENOSIS OF BILATERAL SENA 05/24/2017 ODMI MARTINEZ MD Ot Z79.899 OTHER PEDIATRIC AUDIOLOGIST (CURRENT) DRUG THERAPY 05/24/2017 DOMI MARTINEZ MD Ot Z87.891 PERSONAL HISTORY OF NICOTINE DEPENDENCE 06/08/2017 DOMI MARTINEZ MD Ot E78.5 HYPERLIPIDEMIA, UNSPECIFIED 06/08/2017 DOMI MARTINEZ MD Ot F32.9 MAJOR DEPRESSIVE DISORDER, SINGLE EPISOD 06/08/2017 DOMI MARTINEZ MD Ot I10 ESSENTIAL (PRIMARY) HYPERTENSION 06/08/2017 DOMI MARTINEZ MD Ot I63.9 CEREBRAL INFARCTION, UNSPECIFIED 06/08/2017 DOMI MARTINEZ MD Ot I65.23 OCCLUSION AND STENOSIS OF BILATERAL SENA 06/08/2017 MICHELLE WOODS, DOMI Munoz Ot Z79.899 OTHER MCC (CURRENT) DRUG THERAPY 06/08/2017 MICHELLE WOODS, DOMI Munoz Ot Z87.891 PERSONAL HISTORY OF NICOTINE DEPENDENCE Procedures Code Description Performed By Performed On 45.13 OTHER ENDOSCOPY OF SM INTEST 01/15/2009 99.10 INJECT/INFUSE THROMBOLYTIC AGENT 03/20/2014 [id number] INTRODUCE OTH THROMBOLYTIC IN PERIPH VEI 01/02/2017 Results Test Result Range Comprehensive Metabolic Panel - 02/05/16 15:30 Albumin 4.2 g/dL 3.6-5.1 ALP 102 U/L 35-130 ALT 26 U/L 6-45 Anion Gap 11 6-14 AST 32 U/L 2-40 BUN 16 mg/dL 5-25 Calcium 9.6 mg/dL 8.3-10.4 Chloride 112 mmol/L 95-114 CO2 24 mEq/L 22-33 Creat 1.37 mg/dL 0.50-1.50 eGFR 38 mL/min/1.73m2 >59 Globulin 1.9 g/dL 2.3-3.5 Glucose 106 mg/dL 70-110 Osmo 299 280-295 Potassium 3.4 mmol/L 3.5-5.3 Sodium 144 mmol/L 134-148 TBil 1.3 mg/dL 0.2-1.2 TP 6.1 g/dL 6.0-8.3 Thyroid Stimulating Hormone - 07/01/16 16:30 TSH 1.37 mIU/mL 0.32-5.00 Complete blood count (CBC) with automated white [...] plasma albumin measurement (mass/volume) 3.5 g/dL 3.2-4.5 Sed Rate - 11/30/16 17:50 Sed Rate 2 mm/hr 9-15 NAYE w/Reflex - 11/30/16 17:50 NAYE DIRECT NEGATIVE NEGATIVE NAYE w/Reflex - 11/30/16 17:50 NAYE Direct Negative Negative Ca+PTH Intact - 11/30/16 17:50 Calcium, Serum 9.1 mg/dL 8.7-10.3 PTH, Intact TNP Intact PTH Comment Request Problem - 11/30/16 17:50 Request Problem TNP Calcium - 12/01/16 09:50 Calcium 9.5 mg/dL 8.3-10.4 PTH, Intact - 12/01/16 09:50 PTH, INTACT 109 PG/ML PTH, Intact - 12/01/16 09:50 PTH, Intact 109 pg/mL 1565 Complete blood count (CBC) with automated white [...] measurement by glucometer (mass/volume) 106 mg/dL 70-110 Lipid Panel - 03/07/17 14:12 C/HDL 2.6 3.7-6.7 Cholesterol 172 mg/dL 100-240 HDL 65 mg/dL 30-85 LDL-Calculated 89 mg/dL 0-100 Trig 89 mg/dL 35-160 VLDL 18 mg/dL 0-42 Encounters ACCT No. Visit Date/Time Discharge Status Pt. Type Provider Facility Loc./Unit Complaint [id number] 05/18/2017 10:03:00 05/18/2017 23:59:59 CLS Outpatient DOMI MARTINEZ MD [facility] CATH CRYPTOGENIC STROBE [id number] 03/16/2017 08:00:00 03/16/2017 23:59:59 CLS Outpatient TELLO WILKINSON MD [facility] RAD HTN [id number] 01/02/2017 16:08:00 01/04/2017 14:15:00 DIS Inpatient SANDY WILLIS DO [facility] ICU COMPLETE LEFT HEMIANOPSIA ,HEADACHE [id number] 09/05/2016 23:25:00 09/07/2016 15:45:00 DIS Inpatient SANDY WILLIS DO [facility] 4TH GENERALIZED WEAKNESS; ALTERED MENTAL STATUS; UTI [id number] 08/13/2016 10:34:00 08/13/2016 13:18:00 DIS Outpatient NADIA BARTHOLOMEW MD [facility] ENDO WEIGHT LOSS/HX POLYPS [id number] 08/11/2016 05:49:00 08/11/2016 14:46:00 DIS Outpatient NADIA BARTHOLOMEW MD [facility] PREOP WEIGHT LOSS/HX POLYPS [id number] 06/25/2015 09:00:00 06/25/2015 23:59:59 CLS Outpatient DOMI MARTINEZ MD [facility] CARD CAD,CLAUDICATIONS, HTN HLP CVA [id number] 04/11/2014 14:55:00 04/25/2014 10:55:00 DIS Outpatient TELLO WILKINSON MD [facility] REHAB CVA [id number] 04/16/2014 14:19:00 04/16/2014 15:13:00 DIS Outpatient TELLO WILKINSON MD [facility] REHAB CVA [id number] 04/10/2014 07:45:00 04/10/2014 12:42:00 DIS Outpatient RAO MARTINEZ MDHAR J [facility] CATH CVA,CAROTID STENOSIS,HTN ,HLP [id number] 03/22/2014 11:32:00 03/26/2014 11:45:00 DIS Inpatient JERICA GILLIAM MD [facility] IRF IRF-CVA [id number] 03/20/2014 14:40:00 03/22/2014 11:00:00 DIS Inpatient FRANCISCO WOODS, IWONA Mckinney [facility] ICU CVA RIGHT SIDED WEAKNESS [id number] 12/12/2013 08:09:00 12/12/2013 23:59:59 CLS Outpatient TELLO WILKINSON MD [facility] RAD CKD 3 [id number] 11/07/2013 10:45:00 11/07/2013 23:59:59 CLS Outpatient DAPHNIE ODELL [facility] CARD CAROTID ARTERY STENOSIS,HTN,HLP,DYSPNEA [id number] 07/19/2013 07:02:00 07/19/2013 23:59:59 CLS Outpatient ERNESTO FRITZ MD [facility] GERD [id number] 07/11/2013 07:29:00 07/11/2013 23:59:59 CLS Outpatient ERNESTO FRITZ MD [facility] PREOP GERD [id number] 12/28/2012 08:03:00 12/28/2012 23:59:59 [facility] [id number] 12/27/2012 07:12:00 12/27/2012 23:59:59 CLS Outpatient ERNESTO FRITZ MD [facility] PREOP REFLUX [id number] 10/26/2012 07:07:00 10/26/2012 11:35:00 DIS Outpatient ERNESTO FRITZ MD [facility] GERD [id number] 10/25/2012 07:22:00 10/25/2012 23:59:59 CLS Outpatient ERNESTO FRITZ MD [facility] PREOP GERD [id number] 09/13/2012 07:30:00 09/15/2012 17:27:00 DIS Outpatient ERNESTO FRITZ MD [facility] GASTROESOPHAGEAL REFLUX DISEASE [id number] 09/08/2012 12:15:00 09/08/2012 23:59:59 CLS Outpatient ERNESTO FRITZ MD [facility] PREOP GERD [id number] 08/31/2012 07:17:00 08/31/2012 23:59:59 CLS Outpatient ERNESTO FRITZ MD [facility] GERD [id number] 08/30/2012 07:17:00 08/30/2012 23:59:59 CLS Outpatient ERNESTO FRITZ MD [facility] PREOP GERD [id number] 03/22/2014 15:43:00 Document Registration [id number] 03/22/2014 15:43:00 Document Registration [id number] 03/22/2014 15:43:00 Document Registration [id number] 03/22/2014 15:43:00 Document Registration [id number] 06/22/2012 08:16:00 Document Registration [id number] 06/21/2012 08:10:00 Document Registration [id number] 02/16/2012 13:08:00 Document Registration [id number] 12/29/2011 10:50:00 Document Registration [id number] 11/25/2011 11:45:00 Document Registration [id number] 12/18/2010 10:24:00 Document Registration [id number] 10/20/2010 13:35:00 Document Registration [id number] 09/28/2010 10:33:00 Document Registration [id number] 09/24/2010 13:48:00 Document Registration [id number] 06/18/2010 12:28:00 Document Registration [id number] 04/21/2010 00:00:00 Document Registration [id number] 04/14/2010 13:40:00 Document Registration [id number] 03/30/2010 13:42:00 Document Registration [id number] 03/27/2010 10:20:00 Document Registration [id number] 03/17/2010 19:50:00 Document Registration [id number] 01/14/2010 19:10:00 Document Registration [id number] 12/18/2009 10:20:00 Document Registration [id number] 12/16/2009 09:23:00 Document Registration [id number] 09/22/2009 10:14:00 Document Registration [id number] 09/11/2009 09:36:00 Document Registration [id number] 08/25/2009 09:20:00 Document Registration [id number] 07/30/2009 11:44:00 Document Registration [id number] 02/26/2009 11:04:00 Document Registration [id number] 01/22/2009 16:12:00 Document Registration [id number] 12/28/2008 16:48:00 Document Registration [id number] 10/16/2008 09:11:00 Document Registration [id number] 11/09/2017 14:35:31 11/09/2017 23:59:59 CLS Outpatient [id number] 12/02/2016 09:50:00 Document Registration [id number] 03/07/2017 14:11:00 03/07/2017 23:59:00 DIS Outpatient TELLO WILKINSON [id number] 12/02/2016 09:50:00 12/02/2016 23:59:00 DIS Outpatient TELLO WILKINSON [id number] 11/30/2016 17:50:00 11/30/2016 23:59:00 DIS Outpatient TELLO WILKINSON [id number] 07/21/2016 13:51:00 07/21/2016 23:59:00 DIS Outpatient TELLO WILKINSON [id number] 07/01/2016 16:30:00 07/01/2016 23:59:00 DIS Outpatient TELLO WILKINSON [id number] 02/05/2016 16:48:00 02/05/2016 23:59:00 DIS Outpatient TELLO WILKINSON [id number] 12/03/2016 10:16:00 Document Registration [id number] 04/27/2014 04:34:10 ACT Document Registration [id number] 12/02/2016 12:18:00 Document Registration [id number] 12/02/2016 11:16:00 Document Registration
--- NOTE | 2017-11-26 09:25 | ED Back Pain ---
General Chief Complaint: Back Problems Stated Complaint: SEVERE BACK PAIN X1 WEEK Nursing Triage Note: PT AMBULATED TO ROOM 6, PT CO OF MIDDLE AND UPPER BACK PAIN, PT IS SL KYPHOTIC. PT STATES HAS BEEN HURTING FOR A WEEK. PT WAS SEEN AT [facility] LAST WEEK AND HAS FINISHED PREDNISONE. Nursing Sepsis Screen: No Definite Risk Source of Information: Patient Exam Limitations: No Limitations History of Present Illness Date Seen by Provider: Nov 26, 2017 Time Seen by Provider: 09:23 Initial Comments The patient is a 72-year-old white male female who reports that she has had back pain for about one week. She was seen in a walk-in clinic and given prednisone which she is completed she does not feel appreciably better. There was no apparent injury. She reports that she has had a recent bone density study but has not had the office visit for report. There is no radiation of pain down the legs. She describes spasm and pain from the thoracic to the lumbar spine. Timing/Duration: 1 Week Pain/Injury Location: None Allergies and Home Medications Allergies Coded Allergies: No Known Drug Allergies (Verified , 09/08/12) Home Medications Amlodipine Besylate 5 Mg Tablet, 5 MG PO HS, (Reported) Aspirin 81 Mg Tablet.dr, 81 MG PO DAILY Prescribed by: ERIK MENDEZ on 01/04/17 1125 Atorvastatin Calcium 20 Mg Tablet, 20 MG PO HS, (Reported) Carvedilol 25 Mg Tablet, 25 MG PO BID, (Reported) Clopidogrel Bisulfate 75 Mg Tablet, 75 MG PO DAILY, (Reported) Montelukast Sodium 10 Mg Tablet, 10 MG PO HS, (Reported) Pantoprazole Sodium 40 Mg Tablet.dr, 40 MG PO DAILY, (Reported) Pentoxifylline 400 Mg Tablet.er, 400 MG PO DAILY, (Reported) Patient Home Medication List Home Medication List Reviewed: Yes Review of Systems Constitutional: see HPI EENTM: no symptoms reported Respiratory: no symptoms reported Cardiovascular: no symptoms reported Gastrointestinal: no symptoms reported Genitourinary: no symptoms reported Musculoskeletal: see HPI, back pain Skin: no symptoms reported Psychiatric/Neurological: No Symptoms Reported Past Bymmzlq-Leyooq-Pffams Hx Patient Social History Alcohol Use: Denies Use Recreational Drug Use: No Smoking Status: Former Smoker Type Used: Cigarettes Former Smoker, Quit: Dec 19, 1986 Recent Foreign Travel: No Contact w/Someone Who Travel: No Recent Infectious Disease Expo: No Recent Hopitalizations: No Immunizations Up To Date Tetanus Booster (TDap): Unknown PED Vaccines UTD: Yes Date of Pneumonia Vaccine: Nov 19, 2013 Date of Influenza Vaccine: Nov 19, 2013 Seasonal Allergies Seasonal Allergies: Yes Past Medical History Surgeries: Yes (jaw bone) Abdominal, Appendectomy, Eye Surgery, Tonsillectomy Respiratory: No Currently Using CPAP: No Currently Using BIPAP: No Cardiac: Yes (small PFO) Heart Murmur, Hypertension, Valvular Heart Disease Neurological: Yes Stroke, TIA 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 Disorders: No Female 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 Disorders: 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 Sexually Transmitted Disease: No HIV/AIDS: No Genitourinary: Yes Gastrointestinal: Yes Hiatal Hernia Musculoskeletal: Yes Arthritis Endocrine: No HEENT: Yes Cataract, Glaucoma Hearing Impairment: Denies Cancer: No Did You Recieve Any Treatments: No Psychosocial: Yes Anxiety Integumentary: No Blood Disorders: Yes (Anemia) Adverse Reaction/Blood Tranf: No Family Medical History FH: CVA (cerebrovascular accident) G8 BROTHER G8 SISTER FH: breast cancer 19 MOTHER FH: cancer 19 FATHER Hypertension 19 MOTHER Physical Exam Vital Signs Vital Signs - First Documented 11/26/17 08:55 Temp 97.6 Pulse 105 Resp 18 B/P (MAP) 146/105 (119) Pulse Ox 94 Capillary Refill : Less Than 3 Seconds Height, Weight, BMI Height: 5'4.00" Weight: 160lbs. 0.0oz. [id number]; 24.0 BMI Method:Stated General Appearance: Mild Distress, Moderate Distress HEENT: Normal ENT Inspection Neck: Normal Inspection Cardiovascular: Regular Rate, Rhythm, No Edema, No Gallop, No JVD, No Murmur, Normal Peripheral Pulses Respiratory: Chest Non Tender, Lungs Clear, Normal Breath Sounds, No Accessory Muscle Use, No Respiratory Distress, Accessory Muscle Use Gastrointestinal: Normal Bowel Sounds, No Organomegaly, No Pulsatile Mass, Non Tender, Soft Back: Other (dorsal kyphosis) Extremity: Normal Capillary Refill, Normal Inspection, Normal Range of Motion, Non Tender, No Calf Tenderness, No Pedal Edema, Calf Tenderness Neurologic/Psychiatric: Alert, Oriented x3, No Motor/Sensory Deficits, Normal Mood/Affect, drapery examiner II-XII Norm as Tested Skin: Normal Color, Warm/Dry Lymphatic: No Adenopathy Progress/Results/Core Measures Results/Orders My Orders Orders - ERIK MENDEZ MD Thoracic Spine, 2 Views Only (11/26/17 09:25) Lumbar Spine - 2-3 Views (11/26/17 09:25) Vital Signs/I&O 11/26/17 08:55 Temp 97.6 Pulse 105 Resp 18 B/P (MAP) 146/105 (119) Pulse Ox 94 Blood Pressure Mean: 119 Departure Communication (Admissions) X-rays show evidence of osteoporosis. No definitive compression fractures are noted. I reviewed the films with the patient and her daughter. There are 6 lumbar vertebrae. There is a considerable rightward lumbar scoliosis. In addition there is increase in the usual lumbar lordosis. Finally there is anterolateral listhesis of L5 on L6. These deformities were pointed out to the patient and her daughter. Impression Primary Impression: low back pain Additional Impression: lumbar scoliosis Disposition: 01 HOME, SELF-CARE Condition: Stable/Unchanged Departure-Patient Inst. Decision time for Depature: 10:25 Referrals: TELLO WILKINSON MD (PCP/Family) Primary Care Physician Patient Instructions: Low Back Pain (DC) Add. Discharge Instructions: All discharge instructions reviewed with patient and/or family. Voiced understanding. Try heat to the affected area. You have been given tramadol for pain Make arrangements with your provider to see her soon to arrange for suitable pain relief. Scripts Tramadol HCl (Tramadol HCl) 50 Mg Tablet 50 MG PO 4 times a day, #20 TAB Prov: ERIK MENDEZ MD 11/26/17 ERIK MENDEZ MD Nov 26, 2017 09:25
--- NOTE | 2017-11-26 09:56 | Diagnostic Imaging Report ---
EXAM: LUMBAR SPINE - 2-3 VIEWS INDICATION: Back pain. COMPARISON: CT abdomen without and with IV contrast 09/07/2016. FINDINGS: 6 lumbar type vertebral bodies for the purposes of this report. Moderate right apex thoracolumbar curvature centered at L1-L2. Grade 1 anterolisthesis of L4 on L5. Moderate to advanced degenerative endplate changes. Advanced facet arthropathy at L2 through S1. Vertebral body heights are preserved. No acute fractures. Advanced atherosclerotic calcifications. IMPRESSION: Moderate to advanced spondylotic and scoliotic changes in the lumbar spine. No acute osseous findings. Dictated by: Dictated on workstation # [id number]
--- NOTE | 2017-11-26 09:56 | Diagnostic Imaging Report ---
Indication: Severe back pain AP and lateral views of the thoracic spine are obtained. There is mild left convexity curvature of the lower thoracic spine. Vertebral body heights are maintained. There is mild disc space narrowing and end plate spurring in the lower thoracic region. No paraspinous abnormalities identified. Impression: Left convexity lower thoracic curvature and associated spondylosis without acute thoracic spinal abnormality identified. Dictated by: Dictated on workstation # [id number]
[2017-11-26] MEDS ORDERED: TRAM50TA2 PO (10:27)
[2017-11-26 10:43] VITALS: BP 109/99
== END 2017-11-26 10:48 | disposition home or self-care (01) ==
LOC: EDUNIT# 08:38 → ER 08:39
DX: M41.86 Other forms of scoliosis, lumbar region (principal); M54.6 Pain in thoracic spine; I10 Essential (primary) hypertension; F41.9 Anxiety disorder, unspecified; D64.9 Anemia, unspecified; Z80.3 Family history of malignant neoplasm of breast; Z87.19 Personal history of other diseases of the digestive system; Z86.73 Personal history of transient ischemic attack (TIA), and cerebral infarction without residual deficits; Z79.82 Long term (current) use of aspirin; Z79.02 Long term (current) use of antithrombotics/antiplatelets; Z87.891 Personal history of nicotine dependence; Z90.89 Acquired absence of other organs
CPT/HCPCS: 72070; 72100

== ENCOUNTER 2017-12-14 09:32 | Outpatient (RCR) | payer MEDICARE ==
[~2017-12-14 09:32] MED LIST changes: +TRAM50TA2 PO
== END 2017-12-18 | disposition home or self-care (01) ==
PROVIDERS: ATTEND Nurse Practitioner Family
DX: M54.5 Low back pain (principal); R26.89 Other abnormalities of gait and mobility

== ENCOUNTER 2017-12-19 14:14 | Outpatient (RCR) | payer MEDICARE | END 2018-01-19 15:56 | disposition home or self-care (01) | PROVIDERS: ATTEND Nurse Practitioner Family | DX: M54.5 Low back pain (principal); R26.89 Other abnormalities of gait and mobility ==

== ENCOUNTER 2018-01-24 06:05 | Emergency (ER) | payer MEDICARE ==
[~2018-01-24] VITALS: Ht 162.6 cm; Wt 72.6 kg
[2018-01-24] MEDS ORDERED: LACTATED RINGERS 1,000 ML IV ONE (06:41)
[2018-01-24 06:47] LABS: BASOPHILS % (AUTO) 0 % (0-10); EOSINOPHILS # (AUTO) 0.1 10^3/uL (0.0-0.3); EOSINOPHILS % (AUTO) 1 % (0-10); HEMATOCRIT 39 % (35-52); HEMOGLOBIN 11.7 G/DL (11.5-16.0); LYMPHOCYTES # (AUTO) 0.6 X 10^3 (1.0-4.0); LYMPHOCYTES % (AUTO) 8 % (12-44); MEAN CORPUSCULAR HEMOGLOBIN 27 PG (25-34); MEAN CORPUSCULAR HGB CONC 30 G/DL (32-36); MEAN CORPUSCULAR VOLUME 90 FL (80-99); MEAN PLATELET VOLUME 10.5 FL (7.4-10.4); MONOCYTES # (AUTO) 0.8 X 10^3 (0.0-1.0); MONOCYTES % (AUTO) 10 % (0-12); NEUTROPHILS # (AUTO) 6.9 X 10^3 (1.8-7.8); NEUTROPHILS % (AUTO) 81 % (42-75); PLATELET COUNT 150 10^3/uL (130-400); RED BLOOD COUNT 4.36 10^6/uL (4.35-5.85); RED CELL DISTRIBUTION WIDTH 14.4 % (10.0-14.5); WHITE BLOOD COUNT 8.4 10^3/uL (4.3-11.0)
--- NOTE | 2018-01-24 06:50 | ED GI ---
General Chief Complaint: Abdominal/GI Problems Stated Complaint: DIARRHEA Nursing Triage Note: PT AB TO ROOM #7 W/O DIFFICULTY. A&OX4. C/O ABD CRAMPING, DIARRHEA, N/V FOR X2 DAYS. PT REPORTS SHE STARTED TAKING ELIQUIS TWO WKS AGO AND STOPPED YESTERDAY DT POSSIBLE SIDE EFFECT OF DIARRHEA. INITIAL TYPMAIC TEMP 99.0. REPORTS X1 EPISODE OF EMESIS AND X4 EPISODES OF DIARRHEA. Sepsis Screen: No Definite Risk Source of Information: Patient, Family (daughter) Exam Limitations: No Limitations History of Present Illness Date Seen by Provider: Jan 24, 2018 Time Seen by Provider: 06:36 Initial Comments The patient presents to ER by private conveyance with her daughter and chief complaint for the past 2 weeks since starting Eliquis she has had loose dark stools. She's not having any fevers chills but she did have some nausea earlier today with retching. She says she has no nausea now. She was convinced that the Eliquis because of the timing was the cause of her diarrhea so she called Dr. Aponte who started her on it yesterday and his nurse advised that she stop taking the Eliquis. She was on Plavix because of a history of strokes and continued to have strokes so they tried the Eliquis instead. She does not have a known history of atrial fibrillation but she does have an implanted heart monitor. She's not having any chest pain shortness of breath or abdominal pain. She continued to have a couple loose stools today. Her last dose of Eliquis was yesterday morning, 24 hours ago. She has had colonoscopies by Dr. Coe in the past several years ago and noted to have polyps as well as diverticulosis. Allergies and Home Medications Allergies Coded Allergies: No Known Drug Allergies (Verified , 09/08/12) Home Medications Amlodipine Besylate 5 Mg Tablet, 5 MG PO HS, (Reported) Aspirin 81 Mg Tablet., 81 MG PO DAILY Prescribed by: ERIK MENDEZ on 01/04/17 1125 Atorvastatin Calcium 20 Mg Tablet, 20 MG PO HS, (Reported) Carvedilol 25 Mg Tablet, 25 MG PO BID, (Reported) Clopidogrel Bisulfate 75 Mg Tablet, 75 MG PO DAILY, (Reported) Montelukast Sodium 10 Mg Tablet, 10 MG PO HS, (Reported) Pantoprazole Sodium 40 Mg Tablet., 40 MG PO DAILY, (Reported) Pentoxifylline 400 Mg Tablet.er, 400 MG PO DAILY, (Reported) Tramadol HCl 50 Mg Tablet, 50 MG PO 4 times a day Prescribed by: ERIK MENDEZ on 11/26/17 1027 Patient Home Medication List Home Medication List Reviewed: Yes Review of Systems Review of Systems Constitutional: No chills, No diaphoresis, No fever, No malaise, No weakness EENTM: No Blurred Vision, No Double Vision Respiratory: Denies Cough, Denies Shortness of Air Cardiovascular: Denies Chest Pain, Denies Lightheadedness Gastrointestinal: Denies Abdomen Distended, Denies Abdominal Pain, Denies Blood Streaked Stools, Denies Constipated; Diarrhea, Nausea, Poor Fluid Intake; Denies Vomiting Genitourinary: Denies Burning, Denies Discharge Musculoskeletal: No back pain, No joint pain Skin: No pruritus, No rash Past Ukyzlqq-Qacubv-Omqaas Hx Patient Social History Alcohol Use: Rarely Uses Recreational Drug Use: No Smoking Status: Former Smoker Type Used: Cigarettes Former Smoker, Quit: Dec 19, 1986 2nd Hand Smoke Exposure: No Recent Foreign Travel: No Contact w/Someone Who Travel: No Recent Infectious Disease Expo: No Recent Hopitalizations: No Physical Abuse: No Sexual Abuse: No Immunizations Up To Date Tetanus Booster (TDap): Unknown PED Vaccines UTD: Yes Date of Pneumonia Vaccine: Nov 19, 2013 Date of Influenza Vaccine: Nov 19, 2013 Seasonal Allergies Seasonal Allergies: Yes Past Medical History Surgeries: Yes (jaw bone) Abdominal, Appendectomy, Eye Surgery, Tonsillectomy Respiratory: No Currently Using CPAP: No Currently Using BIPAP: No Cardiac: Yes (small PFO) Heart Murmur, Hypertension, Valvular Heart Disease Neurological: Yes Stroke, TIA 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 Disorders: No Female 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 Disorders: 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 Sexually Transmitted Disease: No HIV/AIDS: No Genitourinary: Yes Gastrointestinal: Yes Hiatal Hernia Musculoskeletal: Yes Arthritis Endocrine: No HEENT: Yes Cataract, Glaucoma Hearing Impairment: Denies Cancer: No Did You Recieve Any Treatments: No Psychosocial: Yes Anxiety Integumentary: No Blood Disorders: Yes (Anemia) Adverse Reaction/Blood Tranf: No Family Medical History FH: CVA (cerebrovascular accident) G8 BROTHER G8 SISTER FH: breast cancer 19 MOTHER FH: cancer 19 FATHER Hypertension 19 MOTHER Physical Exam Vital Signs Vital Signs - First Documented 01/24/18 06:20 Temp 99.0 Pulse 74 Resp 16 B/P (MAP) 133/67 (89) Pulse Ox 100 O2 Delivery Room Air Capillary Refill : Less Than 3 Seconds Height/Weight/BMI Height: 5'4.00" Weight: 160lbs. 0.0oz. 72.760438ic; 24.0 BMI Method:Stated General Appearance: WD/WN, no apparent distress HEENT: PERRL/EOMI, normal ENT inspection, TMs normal, pharynx normal Neck: non-tender, full range of motion Respiratory: chest non-tender, lungs clear, no respiratory distress, no accessory muscle use Cardiovascular: normal peripheral pulses, regular rate, rhythm Gastrointestinal: normal bowel sounds, soft, tenderness (mild diffuse) Rectal: No black stool, No blood streaked stool; hemorrhoids (noninflamed); No tenderness; other (no masses/stool in the rectal vault) Progress/Results/Core Measures Results/Orders Lab Results Laboratory Tests Test 01/24/18 06:30 01/24/18 07:13 Range/Units White Blood Count 8.4 4.3-11.0 10^3/uL Red Blood Count 4.36 4.35-5.85 10^6/uL Hemoglobin 11.7 11.5-16.0 G/DL Hematocrit 39 35-52 % Mean Corpuscular Volume 90 80-99 FL Mean Corpuscular Hemoglobin 27 25-34 PG Mean Corpuscular Hemoglobin Concent 30 L 32-36 G/DL Red Cell Distribution Width 14.4 10.0-14.5 % Platelet Count 150 130-400 10^3/uL Mean Platelet Volume 10.5 H 7.4-10.4 FL Neutrophils (%) (Auto) 81 H 42-75 % Lymphocytes (%) (Auto) 8 L 12-44 % Monocytes (%) (Auto) 10 0-12 % Eosinophils (%) (Auto) 1 0-10 % Basophils (%) (Auto) 0 0-10 % Neutrophils # (Auto) 6.9 1.8-7.8 X 10^3 Lymphocytes # (Auto) 0.6 L 1.0-4.0 X 10^3 Monocytes # (Auto) 0.8 0.0-1.0 X 10^3 Eosinophils # (Auto) 0.1 0.0-0.3 10^3/uL Basophils # (Auto) 0.0 0.0-0.1 10^3/uL Prothrombin Time 13.0 12.2-14.7 SEC INR Comment 1.0 0.8-1.4 Activated Partial Thromboplast Time 25 24-35 SEC Sodium Level 141 135-145 MMOL/L Potassium Level 5.3 H 3.6-5.0 MMOL/L Chloride Level 110 H 98-107 MMOL/L Carbon Dioxide Level 19 L 21-32 MMOL/L Anion Gap 12 5-14 MMOL/L Blood Urea Nitrogen 26 H 7-18 MG/DL Creatinine 1.60 H 0.60-1.30 MG/DL Estimat Glomerular Filtration Rate 32 BUN/Creatinine Ratio 16 Glucose Level 130 H 70-105 MG/DL Calcium Level 10.0 8.5-10.1 MG/DL Corrected Calcium 9.8 8.5-10.1 MG/DL Magnesium Level 2.1 1.8-2.4 MG/DL Total Bilirubin 0.6 0.1-1.0 MG/DL Aspartate Amino Transf (AST/SGOT) 20 5-34 U/L Alanine Aminotransferase (ALT/SGPT) 14 0-55 U/L Alkaline Phosphatase 140 H 40-136 U/L C-Reactive Protein High Sensitivity 0.08 0.00-0.50 MG/DL Total Protein 6.8 6.4-8.2 GM/DL Albumin 4.2 3.2-4.5 GM/DL Urine Color YELLOW Urine Clarity CLEAR Urine pH 6 5-9 Urine Specific [place] 1.010 L 1.016-1.022 Urine Protein 2+ H NEGATIVE Urine Glucose (UA) NEGATIVE NEGATIVE Urine Ketones NEGATIVE NEGATIVE Urine Nitrite NEGATIVE NEGATIVE Urine Bilirubin NEGATIVE NEGATIVE Urine Urobilinogen NORMAL NORMAL MG/DL Urine Leukocyte Esterase 1+ H NEGATIVE Urine RBC (Auto) NEGATIVE NEGATIVE Urine RBC NONE /HPF Urine WBC 0-2 /HPF Urine Squamous Epithelial Cells NONE /HPF Urine Crystals NONE /LPF Urine Bacteria NEGATIVE /HPF Urine Casts NONE /LPF Urine Mucus NEGATIVE /LPF Urine Culture Indicated NO My Orders Orders - KANDY OLIVEIRA Cbc With Automated Diff (01/24/18 06:41) Comprehensive Metabolic Panel (01/24/18 06:41) Hs C Reactive Protein (01/24/18 06:41) Magnesium (01/24/18 06:41) Protime With Inr (01/24/18 06:41) Partial Thromboplastin Time (01/24/18 06:41) Ua Culture If Indicated (01/24/18 06:41) Saline Lock/Iv-Start (01/24/18 06:41) Lactated Ringers (Lr 1000 Ml Iv Solution (01/24/18 06:41) Occult Blood Stool (01/24/18 06:41) Saline Lock/Iv-Start (01/24/18 07:03) Ns Iv 1000 Ml (Sodium Chloride 0.9%) (01/24/18 07:03) Medications Given in ED Current Medications Medications Dose Ordered Sig/Ondina Route Start Time Stop Time Status Last Admin Dose Admin Lactated Ringer's 1,000 ml @ 0 mls/hr Q0M ONCE IV 01/24/18 06:41 01/24/18 07:04 DC 01/24/18 06:48 0 MLS/HR Vital Signs/I&O 01/24/18 06:20 Temp 99.0 Pulse 74 Resp 16 B/P (MAP) 133/67 (89) Pulse Ox 100 O2 Delivery Room Air Blood Pressure Mean: 89 Progress Progress Note #1: Time: 06:51 Progress Note Fecal occult blood test, blood and urine to include magnesium looking for electrolyte disturbances. We'll give her a liter of lactated Ringer's as she does appear clinically to be mildly dry. We will look for an elevated white count or other markers of inflammation that might indicate she's having a diverticulitis attack however she is very nontender does not have grossly bloody stools so this is less likely. More likely she has uncovered a slow bleed from a polyp or diverticulosis by initiating Eliquis. Other possibilities include a general viral colitis etc. Progress Note #2: Time: 08:22 Progress Note Nominal to provide a stool sample since she's been here because his been going on for more than 2 weeks and would recommend getting some stool studies done. We 'll also have her follow-up with Dr. Coe, general surgery. 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 Fecal occult blood test was negative. Departure Impression Primary Impression: Diarrhea Qualified Codes: R19.7 - Diarrhea, unspecified Disposition: 01 HOME, SELF-CARE Condition: Stable Departure-Patient Inst. Decision time for Depature: 08:23 Referrals: SALAS KAPLAN MD (PCP/Family) Primary Care Physician Patient Instructions: Diarrhea in Adolescents and Adults Add. 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 Today call Dr. Coe and request follow-up appointment for reexamination and consideration whether he should have another colonoscopy done. Follow-up with Dr. Aponte and see if he has recommendations for an alternative to Eliquis. Collect a stool sample and bring it back up to the lab for testing and results will be sent to your primary care doctor.follow-up with Dr. Kaplan. All discharge instructions reviewed with patient and/or family. Voiced understanding. Copy Copies To 1: SALAS KAPLAN MD; NADIA COE MD; DOMI APONTE MD, TITUS J Jan 24, 2018 06:50
[2018-01-24 06:59] LABS: ALBUMIN 4.2 GM/DL (3.2-4.5); BILIRUBIN,TOTAL 0.6 MG/DL (0.1-1.0); CREATININE SERUM 1.6 MG/DL (0.60-1.30); MAGNESIUM 2.1 MG/DL (1.8-2.4); POTASSIUM 5.3 MMOL/L (3.6-5.0); TOTAL PROTEIN 6.8 GM/DL (6.4-8.2)
[2018-01-24] MEDS ORDERED: NS IV 1000 ML 1,000 ML IV SCH (07:03)
[2018-01-24 07:22] LABS: BILIRUBIN,URINE NEGATIVE (NEGATIVE); CLARITY,URINE CLEAR; COLOR,URINE YELLOW; GLUCOSE, URINE (UA) NEGATIVE (NEGATIVE); KETONES,URINE NEGATIVE (NEGATIVE); LEUKOCYTE ESTERASE ,URINE 1+ (NEGATIVE); NITRITE,URINE NEGATIVE (NEGATIVE); PH,URINE 6 (5-9); PROTEIN,URINE 2+ (NEGATIVE); UROBILINOGEN,URINE NORMAL (NORMAL)
[2018-01-24 07:37] LABS: BACTERIA,URINE NEGATIVE /HPF; WBC,URINE 0-2 /HPF
[2018-01-24 08:37] VITALS: BP 134/70
== END 2018-01-24 08:37 | disposition home or self-care (01) ==
LOC: EDUNIT# 06:05 → ER 06:05
DX: R19.7 Diarrhea, unspecified (principal); I10 Essential (primary) hypertension; F41.9 Anxiety disorder, unspecified; Z80.3 Family history of malignant neoplasm of breast; Z87.19 Personal history of other diseases of the digestive system; Z87.891 Personal history of nicotine dependence; Z86.73 Personal history of transient ischemic attack (TIA), and cerebral infarction without residual deficits; Z79.01 Long term (current) use of anticoagulants; Z79.02 Long term (current) use of antithrombotics/antiplatelets; Z79.82 Long term (current) use of aspirin; Z90.49 Acquired absence of other specified parts of digestive tract; Z90.89 Acquired absence of other organs
CPT/HCPCS: 36415; 80053; 81000; 83735; 85025; 85610; 85730; 86141; 96360

== ENCOUNTER → 2018-01-27 | Outpatient (CLI) | payer MEDICARE | LOC: LAB 16:58 | PROVIDERS: ATTEND Family Medicine | DX: R19.7 Diarrhea, unspecified (principal) | CPT/HCPCS: 82274; 87015; 87045; 87046; 87177; 87324; 87449; 87899 ==

== ENCOUNTER → 2018-02-27 | Outpatient (CLI) | payer MEDICARE ==
--- NOTE | 2018-02-27 10:52 | Diagnostic Imaging Report ---
INDICATION: Diarrhea and weight gain. KUB 10:42 AM FINDINGS: There is scoliosis of the lumbar spine convex to the right. Bowel gas pattern is normal. There are no pathologic masses or calcifications. There is fecal retention in ascending colon. IMPRESSION: No acute abnormalities in the abdomen. Dictated by: Dictated on workstation # [id number]
== END ==
LOC: RAD 10:00
PROVIDERS: ATTEND Nurse Practitioner Family
DX: R19.7 Diarrhea, unspecified (principal); R63.5 Abnormal weight gain
CPT/HCPCS: 74019

== ENCOUNTER → 2018-03-01 | Outpatient (CLI) | payer MEDICARE ==
--- NOTE | 2018-03-01 11:30 | Diagnostic Imaging Report ---
CLINICAL INDICATION: Patient with restless leg syndrome. Patient has bowel incontinence x1 month. EXAM: MRI of the lumbar spine performed without IV contrast. Sequences include sagittal T2, sagittal T1, sagittal T2 fat-sat, coronal T2, and axial T2. COMPARISON: X-ray of the lumbar spine dated 11/26/2017. FINDINGS: Motion artifact limits evaluation of anatomical detail on this exam. There is dextroscoliosis of the lumbar spine with apex at the L2-L3 intervertebral level. There is multilevel lumbar spine degenerative disease with hypertrophic vertebral body spurs and facet arthropathy. Limited visualization of distal thoracic spinal cord, conus medullaris, cauda equina nerve roots are unremarkable. Conus medullaris tip is seen at the T12-L1 intervertebral level. There is no significant paraspinal soft tissue abnormality. T12-L1: There is a diffuse disc bulge with disc spurs extending into the foraminal regions bilaterally. There is moderate bilateral facet arthropathy. There is moderate central canal narrowing, msgy-ll-skdsuupl left neural foramen narrowing and no significant right neural foramen narrowing. L1-L2: There is grade 1 retrolisthesis of L1 on L2. There is a diffuse disc bulge with flsuckmd-zp-nfuhjh loss of intervertebral disc height with endplate irregularity predominantly involving the left side. There is disc spurs extending posteriorly and into the left foraminal region. There is tvkdhoon-lm-xpvope bilateral facet arthropathy and ligament flavum buckling. There is mild central canal narrowing, moderate right neural foramen narrowing and severe left neural foramen narrowing. L2-L3: There is mild diffuse disc bulge with moderate bilateral facet arthropathy. There is mild ligament flavum buckling and moderate central canal narrowing. There is moderate bilateral neural foramen narrowing. L3-L4: There is a diffuse disc bulge with annular tear involving the extraforaminal aspect of the left side of the disc posteriorly. There is moderate bilateral facet arthropathy and ligament flavum buckling. There is moderate central canal narrowing and moderate bilateral neural foramen narrowing. L4-L5: There is grade 2 anterolisthesis of L4 on L5 of roughly 9 mm. There is a diffuse disc bulge with uymdxnko-er-pcbhqa loss of intervertebral disc height, endplate irregularity, and uncovering of the posterior aspect of disc. There appears to be a chronic right L4 pars defect. The left L4 pars interarticularis region appears intact. There is severe bilateral facet arthropathy/hypertrophy and ligament flavum buckling. There is severe central canal narrowing and severe bilateral neural foramen narrowing. L5-S1: There is mild diffuse disc bulge with severe bilateral facet arthropathy. There is severe central canal narrowing and moderate bilateral neural foramen narrowing. There is chronic bilateral L5 spondylolysis with no significant listhesis seen. IMPRESSION: 1: There is severe multilevel lumbar spine degenerative disc disease with dextroscoliosis of the lumbar spine. This is described in detail above. 2: There is grade 2 anterolisthesis of L4 and L5 with possible chronic right L4 spondylolysis, as described above. There is associated diffuse disc bulge, severe loss of intervertebral disc height, severe bilateral facet arthropathy/hypertrophy. There is severe central canal narrowing and severe bilateral neural foramen narrowing. 3: There is chronic bilateral L5 spondylolysis with no significant listhesis. 4: There is grade 1 retrolisthesis of L1 on L2. Dictated by: Dictated on workstation # [id number]
== END ==
LOC: RAD 09:37
PROVIDERS: ATTEND Nurse Practitioner Family
DX: M51.27 Other intervertebral disc displacement, lumbosacral region (principal); M46.87 Other specified inflammatory spondylopathies, lumbosacral region; M48.07 Spinal stenosis, lumbosacral region; M43.16 Spondylolisthesis, lumbar region; M51.36 Other intervertebral disc degeneration, lumbar region; M41.86 Other forms of scoliosis, lumbar region; R15.9 Full incontinence of feces
CPT/HCPCS: 72148

== ENCOUNTER 2018-04-29 10:27 | Inpatient (IN) | payer MEDICARE ==
[~2018-04-29] VITALS: Ht 162.6 cm; Wt 77.1 kg
[~2018-04-29 10:27] MED LIST changes: -AMLO5TAB7 PO; +AMLO5TAB9 PO
--- OUTSIDE RECORDS SUMMARY | 2018-04-29 10:32 | XMS REPORT | Clinical Summary ---
Author Author [facility] Organization [facility] Address Unknown Phone Unavailable Care Team Providers Care Redeye Gunner Name Role Phone Hellen Tomas RN Unavailable Unavailable Oriana Watts MD PCP Source Comments Some departments are not documenting in the electronic medical record. If you do not see the information that you expected, contact Release of Information in the Health Information Management department at [phone] for further assistance in locating additional records.[facility] Allergies Not on File Medications Not on file Active Problems Not on file Social History Date Tobacco Use Types Packs/Day Years Used Never Assessed Sex Assigned at Date Recorded Not on file Industry Job Start Date Occupation Not on file Not on file Not on file Travel End Travel History Travel Start No recent travel history available. Last Filed Vital Signs Time Taken Vital Sign Reading 10/13/2010 3:22 PM CDT Blood Pressure 156/74 10/13/2010 3:22 PM CDT Pulse 56 10/13/2010 11:14 AM CDT Temperature 36.4 C (97.5 F) - Respiratory Rate - 10/13/2010 3:22 PM CDT Oxygen Saturation 98% - Inhaled Oxygen - Concentration 10/13/2010 2:00 PM CDT Weight 179.2 kg (395 lb) - Height - - Body Mass Index - Plan of Treatment Health Maintenance Due Date Last Done Comments HEPATITIS C SCREENING 1945 PHYSICAL (COMPREHENSIVE) 01/31/1952 EXAM DTAP/TDAP VACCINES (1 - 1963 Tdap) BREAST CANCER SCREENING 1985 COLORECTAL CANCER 1995 SCREENING SHINGLES RECOMBINANT 1995 VACCINE (1 of 2) OSTEOPOROSIS 2010 SCREENING/MONITORING PNEUMONIA (PCV13/PPSV23) 2010 VACCINES (1 of 2 - PCV13) INFLUENZA VACCINE 10/19/2017 Results Not on filefrom Last 3 Months
--- OUTSIDE RECORDS SUMMARY | 2018-04-29 10:33 | XMS REPORT | CCD ---
Author Author [facility] Organization [facility] Address [address] [place] [address] Phone Care Team Providers Care Engagement Executive Name Role Phone PP Unavailable CCM Unavailable Summary Purpose Interface Exchange Insurance Providers Payer name Policy type / Coverage type Covered libertarian ID Effective Begin Date Effective End Date [employer] Commercial Insurance [id number] Unknown Family history Daughter Diagnosis Age At Onset Depression Unknown Mother Diagnosis Age At Onset Arthritis Unknown Breast cancer Unknown Osteoporosis Unknown Brother Diagnosis Age At Onset Stroke Unknown Myocardial infarction Unknown Hypertension Unknown Arthritis Unknown Sister Diagnosis Age At Onset Hypercholesterolemia Unknown Hypertension Unknown Diabetes mellitus Type 2 Unknown Stroke Unknown Arthritis Unknown Father Diagnosis Age At Onset Cancer Unknown Social History Social History Element Codes Description Effective Dates Marital status Unknown 11/28/2017 Number of children Unknown 2 11/28/2017 Employment Unknown Retired 11/28/[address]: 640255436 Unknown if ever smoked 11/28/2017 Alcohol history Unknown occasionally drinks alcohol 11/28/2017 Frequency of drinks SNOMED CT: 313293794 Drinks rarely 1 or 2 per year 11/28/2017 Allergies, Adverse Reactions, Alerts Substance Reaction Codes Entered Date Inactivated Date Status MORPHINE SULFATE pruritis RxNorm: 7052 11/28/2017 No Inactive Date Active Past Medical History Illness Codes Condition Status Onset Date Resolved Date Depression Unknown Active 03/06/2018 Unknown Cough ICD-9: 786.2 ICD-10: R05 Active 02/24/2018 Unknown Low back pain ICD-9: 724.2 ICD-10: M54.5 Active 11/28/2017 Unknown Major depressive disorder, single episode, unspecified ICD-9: 311 ICD-10: F32.9 Active 03/06/2018 Unknown Spinal stenosis, lumbar region without neurogenic claudication ICD-9: 724.02 ICD-10: M48.061 Active 03/06/2018 Unknown Essential (primary) hypertension ICD-9: 401.1 ICD-10: I10 Active 11/28/2017 Unknown Other skin changes ICD -9: 782.9 ICD-10: R23.8 Active 2018 Unknown Dizziness and giddiness ICD-9: 780.4 ICD-10: R42 Active 11/28/2017 Unknown Other hypoglycemia ICD -9: 251.1 ICD-10: E16.1 Active 11/28/2017 Unknown Unsteadiness on feet ICD-9: 781.2 ICD-10: R26.81 Active 11/28/2017 Unknown Problems Condition Codes Effective Dates Condition Status Depression Unknown 03/06/2018 Active Cough ICD-9: 786.2 ICD-10: R05 02/24/2018 Active Low back pain ICD-9: 724.2 ICD-10: M54.5 11/28/2017 Active Major depressive disorder, single episode, unspecified ICD-9: 311 ICD-10: F32.9 03/06/2018 Active Spinal stenosis, lumbar region without neurogenic claudication ICD-9: 724.02 ICD-10: M48.061 03/06/2018 Active Essential (primary) hypertension ICD-9: 401.1 ICD-10: I10 11/28/2017 Active Other skin changes ICD -9: 782.9 ICD-10: R23.8 2018 Active Dizziness and giddiness ICD-9: 780.4 ICD-10: R42 11/28/2017 Active Other hypoglycemia ICD -9: 251.1 ICD-10: E16.1 11/28/2017 Active Unsteadiness on feet ICD-9: 781.2 ICD-10: R26.81 11/28/2017 Active Medications Medication Codes Instructions Start Date Stop Date Status Fill Instructions bupropion HCl 75 mg tablet RxNorm: 711933 1 Tablet(s) PO BID 09/01/2018 Active carvedilol 25 mg tablet RxNorm: 807799 1 Tablet(s) PO BID 02/2411/20/2018 Active citalopram 10 mg tablet RxNorm: 652036 1 Tablet(s) PO QPM 12/1601/19/2018 Inactive pentoxifylline ER 400 mg tablet,extended release RxNorm: 436551 1 Tablet(s) PO daily 11/30/2017 02/22/2019 Active montelukast 10 mg tablet RxNorm: 306647 1 Tablet(s) PO daily 02/22/2019 Active diclofenac 1 % topical gel RxNorm: 968094 4 Gram(s) TOP QID to back 11/30/2017 11/24/2018 Active citalopram 10 mg tablet RxNorm: 044445 1 Tablet(s) PO QPM 11/2812/15/2017 Inactive diclofenac 1 % topical gel RxNorm: 176499 4 Gram(s) TOP QID toback 11/28/2017 11/29/2017 Inactive atorvastatin 20 mg tablet RxNorm: 859368 1 Tablet(s) PO daily No Start Date Active pantoprazole 40 mg tablet,delayed release RxNorm: 768485 1 Tablet(s) PO daily No Start Date Active amlodipine 5 mg tablet RxNorm: 688682 1 Tablet(s) PO daily No Start Date Active Eliquis 5 mg tablet RxNorm: 5128107 1 Tablet(s) PO BID No Start Date Active magnesium oxide 400 mg tablet RxNorm: 456942 1 Tablet(s) PO daily No Start Date Active calcitriol 0.25 mcg capsule RxNorm: 206023 1 Capsule(s) PO daily No Start Date Active Aspirin Low Dose 81 mg tablet,delayed release RxNorm: 767289 1 Tablet(s) PO daily No Start Date 01/29/2018 Inactive carvedilol 25 mg tablet RxNorm: 250895 1 Tablet(s) PO BID No Start Date 02/23/2018 Inactive duloxetine 30 mg capsule,delayed release RxNorm: 907057 1 Capsule(s) PO daily No Start Date 01/23/2018 Inactive montelukast 10 mg tablet RxNorm: 984031 1 Tablet(s) PO daily No Start Date 11/29/2017 Inactive pentoxifylline ER 400 mg tablet,extended release RxNorm: 407579 1 Tablet(s) PO daily No Start Date 11/29/2017 Inactive clopidogrel 75 mg tablet RxNorm: 474148 1 Tablet(s) PO daily No Start Date 01/29/2018 Inactive Medication Administered No Medication Administered data Immunizations Vaccine Codes Date Status Pneumococcal (Adult) CVX: 33 09/18/2013 completed Assessments Condition Codes Effective Dates Major depressive disorder, single episode, unspecified ICD- 10: F32.9 ICD-9: 311 03/06/2018 Low back pain ICD-10: M54.5 ICD-9: 724.2 03/06/2018 Spinal stenosis, lumbar region without neurogenic claudication ICD-10: M48.061 ICD-9: 724.02 03/06/2018 Cough ICD-10: R05 ICD-9: 786.2 02/24/2018 Essential (primary) hypertension ICD-10: I10 ICD-9: 401.1 2018 Other skin changes ICD-10: R23.8 ICD-9: 782.9 2018 Unsteadiness on feet ICD-10: R26.81 ICD-9: 781.2 11/28/2017 Dizziness and giddiness ICD-10: R42 ICD-9: 780.4 11/28/2017 Other hypoglycemia ICD-10: E16.1 ICD-9: 251.1 11/28/2017 Reason For Visit Reason For Visit Effective Dates Notes back pain 03/06/2018 cough 02/24/2018 hypertension 2018 hypertension 11/28/2017 Results No Results data Review of Systems System Result Effective Dates Constitutional No recent illness 2017 Constitutional No anorexia 03/06/2018 Constitutional No night sweats 2017 Constitutional No chills 03/06/2018 Constitutional No diaphoresis 03/06/2018 Constitutional fatigue 03/06/2018 Constitutional No fever 03/06/2018 Constitutional No insomnia 03/06/2018 Constitutional No malaise 03/06/2018 Constitutional No weight loss 03/06/2018 Constitutional weight gain 03/06/2018 Musculoskeletal back pain 03/06/2018 Genitourinary/Nephrology No dysuria 03/06 Gastrointestinal No abdominal pain 2017 Gastrointestinal No constipation 2017 Gastrointestinal No diarrhea 03/06/2018 Respiratory No cough 03/06/2018 Cardiovascular No chest pain/pressure Ears/Nose/Throat/Neck No dizziness 2017 Dermatologic No rash 03/06/2018 Dermatologic No sores 03/06/2018 Neurologic No alteration of consciousness 03/06/2018 Eyes No vision change 03/06/2018 Ears/Nose/Throat/Neck No dysphagia 2017 Ears/Nose/Throat/Neck No headache 2017 Ears/Nose/Throat/Neck No hearing loss Ears/Nose/Throat/Neck nasal allergies Ears/Nose/Throat/Neck nasal discharge Ears/Nose/Throat/Neck No sinus congestion 03/06/2018 Ears/Nose/Throat/Neck No sore throat Cardiovascular No dyspnea 03/06/2018 Cardiovascular No edema 03/06/2018 Cardiovascular No exercise intolerance Respiratory No chest tightness 2017 Respiratory No dyspnea 03/06/2018 Respiratory No pedal edema 03/06/2018 Gastrointestinal No gastroesophageal reflux 03/06/2018 Gastrointestinal No nausea 03/06/2018 Gastrointestinal No vomiting 03/06/2018 Genitourinary/Nephrology No nocturia Genitourinary/Nephrology No urinary incontinence 03/06/2018 Musculoskeletal stiffness 03/06/2018 Musculoskeletal No swelling 03/06/2018 Musculoskeletal muscle weakness 2017 Musculoskeletal No myalgias 03/06/2018 Neurologic No headache 03/06/2018 Neurologic No neck pain 03/06/2018 Neurologic No syncope 03/06/2018 Psychiatric No anxiety 03/06/2018 Psychiatric No depression 03/06/2018 Constitutional recent illness 02/24/2018 Constitutional No chills 02/24/2018 Constitutional No fatigue 02/24/2018 Constitutional No fever 02/24/2018 Constitutional No insomnia 02/24/2018 Constitutional No malaise 02/24/2018 Eyes No vision change 02/24/2018 Ears/Nose/Throat/Neck No dizziness 2017 Ears/Nose/Throat/Neck No dysphagia 2017 Ears/Nose/Throat/Neck No headache 2017 Ears/Nose/Throat/Neck No hearing loss 09/2017 Ears/Nose/Throat/Neck nasal allergies 09/2017 Ears/Nose/Throat/Neck No sore throat 09/2017 Ears/Nose/Throat/Neck No sinus congestion 02/24/2018 Cardiovascular No chest pain/pressure 09/2017 Cardiovascular No dyspnea 02/24/2018 Cardiovascular No edema 02/24/2018 Cardiovascular No exercise intolerance Cardiovascular No fatigue 02/24/2018 Cardiovascular near-syncope/dizziness 09/2017 Respiratory No chest tightness 2017 Respiratory cough 02/24/2018 Respiratory No dyspnea 02/24/2018 Respiratory No pedal edema 02/24/2018 Gastrointestinal No abdominal pain 2017 Gastrointestinal No constipation 2017 Gastrointestinal No diarrhea 02/24/2018 Gastrointestinal No gastroesophageal reflux 02/24/2018 Gastrointestinal No nausea 02/24/2018 Gastrointestinal No vomiting 02/24/2018 Genitourinary/Nephrology No dysuria 02/24 Genitourinary/Nephrology No nocturia 09/2017 Genitourinary/Nephrology No urinary incontinence 02/24/2018 Musculoskeletal stiffness 02/24/2018 Musculoskeletal No swelling 02/24/2018 Musculoskeletal back pain 02/24/2018 Musculoskeletal muscle weakness 2017 Musculoskeletal No myalgias 02/24/2018 Neurologic No dizziness 02/24/2018 Neurologic No headache 02/24/2018 Neurologic No neck pain 02/24/2018 Neurologic No syncope 02/24/2018 Psychiatric No anxiety 02/24/2018 Psychiatric No depression 02/24/2018 Constitutional No anorexia 02/24/2018 Constitutional No night sweats 2017 Constitutional No diaphoresis 02/24/2018 Ears/Nose/Throat/Neck nasal discharge 09/2017 Dermatologic No rash 02/24/2018 Constitutional No recent illness 2017 Constitutional No chills 2018 Constitutional No fatigue 2018 Constitutional No fever 2018 Constitutional No insomnia 2018 Constitutional No malaise 2018 Eyes No vision change 2018 Ears/Nose/Throat/Neck dizziness 2017 Ears/Nose/Throat/Neck No dysphagia 2017 Ears/Nose/Throat/Neck No headache 2017 Ears/Nose/Throat/Neck No hearing loss 02/2018 Ears/Nose/Throat/Neck No nasal allergies 2018 Ears/Nose/Throat/Neck No sore throat 02/2018 Ears/Nose/Throat/Neck No sinus congestion 2018 Cardiovascular No chest pain/pressure 02/2018 Cardiovascular No dyspnea 2018 Cardiovascular No edema 2018 Cardiovascular No exercise intolerance Cardiovascular No fatigue 2018 Cardiovascular near-syncope/dizziness 02/2018 Respiratory No chest tightness 2017 Respiratory No cough 2018 Respiratory No dyspnea 2018 Respiratory No pedal edema 2018 Gastrointestinal No abdominal pain 2017 Gastrointestinal No constipation 2017 Gastrointestinal No diarrhea 2018 Gastrointestinal No gastroesophageal reflux 2018 Gastrointestinal No nausea 2018 Gastrointestinal No vomiting 2018 Genitourinary/Nephrology No dysuria 01/30 Genitourinary/Nephrology No nocturia 02/2018 Genitourinary/Nephrology No urinary incontinence 2018 Musculoskeletal stiffness 2018 Musculoskeletal No swelling 2018 Musculoskeletal back pain 2018 Musculoskeletal muscle weakness 2017 Musculoskeletal No myalgias 2018 Neurologic No dizziness 2018 Neurologic No headache 2018 Neurologic No neck pain 2018 Neurologic No syncope 2018 Psychiatric No anxiety 2018 Psychiatric No depression 2018 Dermatologic mole change 2018 Constitutional No recent illness 2017 Constitutional No chills 11/28/2017 Constitutional No fatigue 11/28/2017 Constitutional No fever 11/28/2017 Constitutional No insomnia 11/28/2017 Constitutional No malaise 11/28/2017 Eyes No vision change 11/28/2017 Ears/Nose/Throat/Neck dizziness 2017 Ears/Nose/Throat/Neck No dysphagia 2017 Ears/Nose/Throat/Neck No headache 2017 Ears/Nose/Throat/Neck No hearing loss 12/2017 Ears/Nose/Throat/Neck No nasal allergies 11/28/2017 Ears/Nose/Throat/Neck No sore throat 12/2017 Ears/Nose/Throat/Neck No sinus congestion 11/28/2017 Cardiovascular No chest pain/pressure 12/2017 Cardiovascular No dyspnea 11/28/2017 Cardiovascular No edema 11/28/2017 Cardiovascular No exercise intolerance Cardiovascular No fatigue 11/28/2017 Cardiovascular near-syncope/dizziness 12/2017 Respiratory No chest tightness 2017 Respiratory No cough 11/28/2017 Respiratory No dyspnea 11/28/2017 Respiratory No pedal edema 11/28/2017 Gastrointestinal No abdominal pain 2017 Gastrointestinal No constipation 2017 Gastrointestinal No diarrhea 11/28/2017 Gastrointestinal No gastroesophageal reflux 11/28/2017 Gastrointestinal No nausea 11/28/2017 Gastrointestinal No vomiting 11/28/2017 Genitourinary/Nephrology No dysuria 11/28 Genitourinary/Nephrology No nocturia 12/2017 Genitourinary/Nephrology No urinary incontinence 11/28/2017 Musculoskeletal stiffness 11/28/2017 Musculoskeletal No swelling 11/28/2017 Musculoskeletal muscle weakness 2017 Musculoskeletal No myalgias 11/28/2017 Dermatologic No rash 11/28/2017 Dermatologic No sores 11/28/2017 Neurologic No dizziness 11/28/2017 Neurologic No headache 11/28/2017 Neurologic No neck pain 11/28/2017 Neurologic No syncope 11/28/2017 Psychiatric No anxiety 11/28/2017 Psychiatric No depression 11/28/2017 Musculoskeletal back pain 11/28/2017 Physical Exam Exam Name System Name Item Name Status Result Effective Dates Notes Full Exam - General 1994 Constitutional general appearance Development: well developed 03/06/2018 None Full Exam - General 1994 Constitutional general appearance Development: appears stated age 1203/06/2018 None Full Exam - General 1994 Constitutional general appearance Hygiene/Attention to Grooming: good hygiene 03/06/2018 None Full Exam - General 1994 Eyes conjunctiva /eyelids Overall: conjunctiva clear 03/06/2018 None Full Exam - General 1994 Eyes conjunctiva /eyelids Overall: cornea clear 03/06/2018 None Full Exam - General 1994 Eyes conjunctiva /eyelids Overall: eyelids normal 03/06/2018 None Full Exam - General 1994 Eyes pupils and irises Overall: pupils equal, round, reactive to light and accomodation 03/06/2018 None Full Exam - General 1994 Ears/Nose/Throat otoscopic exam Overall: external auditory canals clear 03/06/2018 None Full Exam - General 1994 Ears/Nose/Throat otoscopic exam Overall: tympanic membranes clear 03/06/2018 None Full Exam - General 1994 Ears/Nose/Throat lips/teeth/gingiva Overall: benign lips 03/06/2018 None Full Exam - General 1994 Ears/Nose/Throat lips/teeth/gingiva Overall: normal dentition 03/06/2018 None Full Exam - General 1994 Ears/Nose/Throat oral cavity/pharynx/larynx Overall: oral mucosa clear 03/06/2018 None Full Exam - General 1994 Ears/Nose/Throat oral cavity/pharynx/larynx Overall: oropharyngeal mucosa clear 03/06/2018 None Full Exam - General 1994 Ears/Nose/Throat oral cavity/pharynx/larynx Overall: hypopharynx benign 03/06/2018 None Full Exam - General 1994 Ears/Nose/Throat oral cavity/pharynx/larynx Overall: no masses 03/06/2018 None Full Exam - General 1994 Respiratory auscultation Overall: breath sounds clear bilaterally 03/06/2018 None Full Exam - General 1994 Respiratory respiratory effort/rhythm Overall: no retractions 03/06/2018 None Full Exam - General 1994 Respiratory respiratory effort/rhythm Overall: normal rate 03/06/2018 None Full Exam - General 1994 Cardiovascular extremities Overall: no clubbing 03/06/2018 None Full Exam - General 1994 Cardiovascular auscultation of heart Overall: regular rate 03/06/2018 None Full Exam - General 1994 Cardiovascular auscultation of heart Overall: normal heart sounds 03/06/2018 None Full Exam - General 1994 Abdomen abdominal exam Overall: no tenderness 03/06/2018 None Full Exam - General 1994 Abdomen abdominal exam Overall: normal bowel sounds 03/06/2018 None Full Exam - General 1994 Lymphatic neck nodes Overall: anterior cervical chain benign 03/06/2018 None Full Exam - General 1994 Lymphatic neck nodes Overall: posterior cervical chain benign 03/06/2018 None Full Exam - General 1994 Musculoskeletal spine, ribs and pelvis Overall: spine benign 03/06/2018 None Full Exam - General 1994 Musculoskeletal spine, ribs and pelvis Overall: sacroiliac joint benign 03/06/2018 None Full Exam - General 1994 Musculoskeletal spine, ribs and pelvis Overall: good posture 03/06/2018 None Full Exam - General 1994 Musculoskeletal head and neck Overall: head atraumatic 03/06/2018 None Full Exam - General 1994 Musculoskeletal head and neck Overall: cervical spine benign 03/06/2018 None Full Exam - General 1994 Neurologic deep tendon reflexes Overall: deep tendon reflexes intact 03/06/2018 None Full Exam - General 1994 Neurologic cranial nerves Overall: crainial nerves 2 - 12 grossly intact 03/06/2018 None Full Exam - General 1994 Psychiatric orientation/consciousness Overall: oriented to person, place and time 03/06/2018 None Full Exam - General 1994 Psychiatric mood and affect Overall: normal mood and affect 03/06/2018 None Full Exam - General 1994 Constitutional general appearance Development: well developed 02/24/2018 None Full Exam - General 1994 Constitutional general appearance Development: appears stated age 1202/24/2018 None Full Exam - General 1994 Constitutional general appearance Hygiene/Attention to Grooming: good hygiene 02/24/2018 None Full Exam - General 1994 Eyes conjunctiva /eyelids Overall: conjunctiva clear 02/24/2018 None Full Exam - General 1994 Eyes conjunctiva /eyelids Overall: cornea clear 02/24/2018 None Full Exam - General 1994 Eyes conjunctiva /eyelids Overall: eyelids normal 02/24/2018 None Full Exam - General 1994 Eyes pupils and irises Overall: pupils equal, round, reactive to light and accomodation 02/24/2018 None Full Exam - General 1994 Ears/Nose/Throat otoscopic exam Overall: external auditory canals clear 02/24/2018 None Full Exam - General 1994 Ears/Nose/Throat otoscopic exam Overall: tympanic membranes clear 02/24/2018 None Full Exam - General 1994 Ears/Nose/Throat lips/teeth/gingiva Overall: benign lips 02/24/2018 None Full Exam - General 1994 Ears/Nose/Throat lips/teeth/gingiva Overall: normal dentition 02/24/2018 None Full Exam - General 1994 Ears/Nose/Throat oral cavity/pharynx/larynx Overall: oral mucosa clear 02/24/2018 None Full Exam - General 1994 Ears/Nose/Throat oral cavity/pharynx/larynx Overall: oropharyngeal mucosa clear 02/24/2018 None Full Exam - General 1994 Ears/Nose/Throat oral cavity/pharynx/larynx Overall: hypopharynx benign 02/24/2018 None Full Exam - General 1994 Ears/Nose/Throat oral cavity/pharynx/larynx Overall: no masses 02/24/2018 None Full Exam - General 1994 Respiratory auscultation Overall: breath sounds clear bilaterally 02/24/2018 None Full Exam - General 1994 Respiratory respiratory effort/rhythm Overall: no retractions 02/24/2018 None Full Exam - General 1994 Respiratory respiratory effort/rhythm Overall: normal rate 02/24/2018 None Full Exam - General 1994 Cardiovascular extremities Overall: no clubbing 02/24/2018 None Full Exam - General 1994 Cardiovascular auscultation of heart Overall: regular rate 02/24/2018 None Full Exam - General 1994 Cardiovascular auscultation of heart Overall: normal heart sounds 02/24/2018 None Full Exam - General 1994 Abdomen abdominal exam Overall: no tenderness 02/24/2018 None Full Exam - General 1994 Abdomen abdominal exam Overall: normal bowel sounds 02/24/2018 None Full Exam - General 1994 Lymphatic neck nodes Overall: anterior cervical chain benign 02/24/2018 None Full Exam - General 1994 Lymphatic neck nodes Overall: posterior cervical chain benign 02/24/2018 None Full Exam - General 1994 Musculoskeletal spine, ribs and pelvis Overall: spine benign 02/24/2018 None Full Exam - General 1994 Musculoskeletal spine, ribs and pelvis Overall: sacroiliac joint benign 02/24/2018 None Full Exam - General 1994 Musculoskeletal spine, ribs and pelvis Overall: good posture 02/24/2018 None Full Exam - General 1994 Musculoskeletal head and neck Overall: head atraumatic 02/24/2018 None Full Exam - General 1994 Musculoskeletal head and neck Overall: cervical spine benign 02/24/2018 None Full Exam - General 1994 Neurologic deep tendon reflexes Overall: deep tendon reflexes intact 02/24/2018 None Full Exam - General 1994 Neurologic cranial nerves Overall: crainial nerves 2 - 12 grossly intact 02/24/2018 None Full Exam - General 1994 Psychiatric orientation/consciousness Overall: oriented to person, place and time 02/24/2018 None Full Exam - General 1994 Psychiatric mood and affect Overall: normal mood and affect 02/24/2018 None Full Exam - General 1994 Constitutional general appearance Development: well developed 2018 None Full Exam - General 1994 Constitutional general appearance Development: appears stated age 1101/30/2018 None Full Exam - General 1994 Constitutional general appearance Hygiene/Attention to Grooming: good hygiene 2018 None Full Exam - General 1994 Eyes conjunctiva /eyelids Overall: conjunctiva clear 2018 None Full Exam - General 1994 Eyes conjunctiva /eyelids Overall: cornea clear 2018 None Full Exam - General 1994 Eyes conjunctiva /eyelids Overall: eyelids normal 2018 None Full Exam - General 1994 Eyes pupils and irises Overall: pupils equal, round, reactive to light and accomodation 2018 None Full Exam - General 1994 Ears/Nose/Throat otoscopic exam Overall: external auditory canals clear 2018 None Full Exam - General 1994 Ears/Nose/Throat otoscopic exam Overall: tympanic membranes clear 2018 None Full Exam - General 1994 Ears/Nose/Throat lips/teeth/gingiva Overall: benign lips 2018 None Full Exam - General 1994 Ears/Nose/Throat lips/teeth/gingiva Overall: normal dentition 2018 None Full Exam - General 1994 Ears/Nose/Throat oral cavity/pharynx/larynx Overall: oral mucosa clear 2018 None Full Exam - General 1994 Ears/Nose/Throat oral cavity/pharynx/larynx Overall: oropharyngeal mucosa clear 2018 None Full Exam - General 1994 Ears/Nose/Throat oral cavity/pharynx/larynx Overall: hypopharynx benign 2018 None Full Exam - General 1994 Ears/Nose/Throat oral cavity/pharynx/larynx Overall: no masses 2018 None Full Exam - General 1994 Respiratory auscultation Overall: breath sounds clear bilaterally 2018 None Full Exam - General 1994 Respiratory respiratory effort/rhythm Overall: no retractions 2018 None Full Exam - General 1994 Respiratory respiratory effort/rhythm Overall: normal rate 2018 None Full Exam - General 1994 Cardiovascular extremities Overall: no clubbing 2018 None Full Exam - General 1994 Cardiovascular auscultation of heart Overall: regular rate 2018 None Full Exam - General 1994 Cardiovascular auscultation of heart Overall: normal heart sounds 2018 None Full Exam - General 1994 Abdomen abdominal exam Overall: no tenderness 2018 None Full Exam - General 1994 Abdomen abdominal exam Overall: normal bowel sounds 2018 None Full Exam - General 1994 Lymphatic neck nodes Overall: anterior cervical chain benign 2018 None Full Exam - General 1994 Lymphatic neck nodes Overall: posterior cervical chain benign 2018 None Full Exam - General 1994 Musculoskeletal spine, ribs and pelvis Overall: spine benign 2018 None Full Exam - General 1994 Musculoskeletal spine, ribs and pelvis Overall: sacroiliac joint benign 2018 None Full Exam - General 1994 Musculoskeletal spine, ribs and pelvis Overall: good posture 2018 None Full Exam - General 1994 Musculoskeletal head and neck Overall: head atraumatic 2018 None Full Exam - General 1994 Musculoskeletal head and neck Overall: cervical spine benign 2018 None Full Exam - General 1994 Neurologic deep tendon reflexes Overall: deep tendon reflexes intact 2018 None Full Exam - General 1994 Neurologic cranial nerves Overall: crainial nerves 2 - 12 grossly intact 2018 None Full Exam - General 1994 Psychiatric orientation/consciousness Overall: oriented to person, place and time 2018 None Full Exam - General 1994 Psychiatric mood and affect Overall: normal mood and affect 2018 None Full Exam - General 1994 Integument inspection of skin Pigmentation: hyperpigmentation 2018 right cheek 1 x 0.5cm melanotic nevi Full Exam - General 1994 Constitutional general appearance Development: well developed 11/28/2017 None Full Exam - General 1994 Constitutional general appearance Development: appears stated age 0911/28/2017 None Full Exam - General 1994 Constitutional general appearance Hygiene/Attention to Grooming: good hygiene 11/28/2017 None Full Exam - General 1994 Eyes conjunctiva /eyelids Overall: conjunctiva clear 11/28/2017 None Full Exam - General 1994 Eyes conjunctiva /eyelids Overall: cornea clear 11/28/2017 None Full Exam - General 1994 Eyes conjunctiva /eyelids Overall: eyelids normal 11/28/2017 None Full Exam - General 1994 Eyes pupils and irises Overall: pupils equal, round, reactive to light and accomodation 11/28/2017 None Full Exam - General 1994 Ears/Nose/Throat otoscopic exam Overall: external auditory canals clear 11/28/2017 None Full Exam - General 1994 Ears/Nose/Throat otoscopic exam Overall: tympanic membranes clear 11/28/2017 None Full Exam - General 1994 Ears/Nose/Throat lips/teeth/gingiva Overall: benign lips 11/28/2017 None Full Exam - General 1994 Ears/Nose/Throat lips/teeth/gingiva Overall: normal dentition 11/28/2017 None Full Exam - General 1994 Ears/Nose/Throat oral cavity/pharynx/larynx Overall: oral mucosa clear 11/28/2017 None Full Exam - General 1994 Ears/Nose/Throat oral cavity/pharynx/larynx Overall: oropharyngeal mucosa clear 11/28/2017 None Full Exam - General 1994 Ears/Nose/Throat oral cavity/pharynx/larynx Overall: hypopharynx benign 11/28/2017 None Full Exam - General 1994 Ears/Nose/Throat oral cavity/pharynx/larynx Overall: no masses 11/28/2017 None Full Exam - General 1994 Respiratory auscultation Overall: breath sounds clear bilaterally 11/28/2017 None Full Exam - General 1994 Respiratory respiratory effort/rhythm Overall: no retractions 11/28/2017 None Full Exam - General 1994 Respiratory respiratory effort/rhythm Overall: normal rate 11/28/2017 None Full Exam - General 1994 Cardiovascular extremities Overall: no clubbing 11/28/2017 None Full Exam - General 1994 Cardiovascular auscultation of heart Overall: regular rate 11/28/2017 None Full Exam - General 1994 Cardiovascular auscultation of heart Overall: normal heart sounds 11/28/2017 None Full Exam - General 1994 Abdomen abdominal exam Overall: no tenderness 11/28/2017 None Full Exam - General 1994 Abdomen abdominal exam Overall: normal bowel sounds 11/28/2017 None Full Exam - General 1994 Lymphatic neck nodes Overall: anterior cervical chain benign 11/28/2017 None Full Exam - General 1994 Lymphatic neck nodes Overall: posterior cervical chain benign 11/28/2017 None Full Exam - General 1994 Musculoskeletal spine, ribs and pelvis Overall: spine benign 11/28/2017 None Full Exam - General 1994 Musculoskeletal spine, ribs and pelvis Overall: good posture 11/28/2017 None Full Exam - General 1994 Musculoskeletal head and neck Overall: head atraumatic 11/28/2017 None Full Exam - General 1994 Musculoskeletal head and neck Overall: cervical spine benign 11/28/2017 None Full Exam - General 1994 Integument inspection of skin Overall: few scattered moles, no gross abnormalities 11/28/2017 None Full Exam - General 1994 Neurologic deep tendon reflexes Overall: deep tendon reflexes intact 11/28/2017 None Full Exam - General 1994 Neurologic cranial nerves Overall: crainial nerves 2 - 12 grossly intact 11/28/2017 None Full Exam - General 1994 Psychiatric orientation/consciousness Overall: oriented to person, place and time 11/28/2017 None Full Exam - General 1994 Psychiatric mood and affect Overall: normal mood and affect 11/28/2017 None Full Exam - General 1994 Musculoskeletal spine, ribs and pelvis Overall: sacroiliac joint benign 11/28/2017 None Procedures No Procedures data Vital Signs Date Vital 03/06/2018 Blood Pressure 1: 140/80 Code : 8480-6 BMI: 28.5 Code : 14722-4 Heart Rate 1 : 86 bpm Height: 5'4" SpO2: 96% Weight: 166 lbs 02/24/2018 Blood Pressure 1: 120/74 Code : 8480-6 BMI: 28.5 Code : 42547-0 Heart Rate 1 : 92 bpm Height: 5'4" SpO2: 97% Weight: 166 lbs 2018 Blood Pressure 1: 136/78 Code : 8480-6 BMI: 28.5 Code : 98314-7 Heart Rate 1 : 106 bpm Height: 5'4" SpO2: 99% Weight: 166 lbs 11/28/2017 Blood Pressure 1: 140/84 Code : 8480-6 BMI: 27.3 Code : 25306-8 Heart Rate 1 : 81 bpm Height: 5'4" SpO2: 98% Weight: 159 lbs Functional Status No Functional Status data History of Present Illness Symptom Name Status Result Effective Date Notes Location diffusely None Quality acute 2017 None Onset and Resolution sudden in onset 03/06/2018 None Onset of Symptom 9 days ago 03/06/2018 None Alleviating Factors medication 03/06/2018 None Pertinent Findings weakness 03/06/2018 None Triggers no known associated factors 03/06/2018 None Limitation on Activities does not limit activities 03/06/2018 None Frequency of Episodes on and off 03/06/2018 None Severity mild 2017 None Sports Participation not significant 03/06/2018 None Location in the throat 02/24/2018 None Quality dry 2017 None Onset and Resolution ongoing 02/24/2018 None Onset of Symptom during adulthood 02/24/2018 None Limitation on Activities does not limit activities 02/24/2018 None Frequency of Episodes unchanged 02/24/2018 None Triggers known allergens 02/24/2018 None hypertension Onset and Resolution ongoing 2018 None hypertension Onset of Symptom during adulthood 2018 None hypertension Alleviating Factors medication 2018 None hypertension Pertinent Findings decreased energy 2018 None hypertension Pertinent Findings Denies dizziness 2018 None hypertension Pertinent Findings Denies dyspnea 2018 None hypertension Pertinent Findings edema 2018 None hypertension Quality primary hypertension 2018 None hypertension Blood Pressure Values pt checking blood pressure - see scanned document 2018 None weight gain/obesity Quality acute 2018 None weight gain/obesity Quality worsening 2018 None weight gain/obesity Onset and Resolution ongoing 2018 None weight gain/obesity Onset of Symptom a few months ago 2018 None weight gain/obesity Triggers unintentional weight gain 2018 None back pain Quality acute 11/28/2017 None back pain Onset and Resolution sudden in onset 11/28/2017 None back pain Onset of Symptom 9 days ago 11/28/2017 None back pain Frequency of Episodes daily 11/28/2017 None back pain Alleviating Factors medication 11/28/2017 None back pain Location diffusely 11/28/2017 None back pain Mechanism of injury unknown 11/28/2017 None hypertension Onset and Resolution ongoing 11/28/2017 None hypertension Onset of Symptom during adulthood 11/28/2017 None hypertension Blood Pressure Values patient checking blood pressure at home - did not bring in readings 11/28/2017 None hypertension Alleviating Factors medication 11/28/2017 None hypertension Pertinent Findings dizziness 11/28/2017 None hypertension Pertinent Findings decreased energy 11/28/2017 None hypertension Pertinent Findings Denies dyspnea 11/28/2017 None hypertension Pertinent Findings Denies edema 11/28/2017 None Advance Directives No Advance Directive data Encounters Encounter Performer Location Codes Date ([id number]) 55873 EST. PATIENT, LEVEL III Diagnosis: Spinal stenosis, lumbar region without neurogenic claudication[ICD10 : M48.061] Diagnosis: Low back pain[ICD10: M54.5] Diagnosis: Major depressive disorder, single episode, unspecified[ICD10: F32.9] Giana Kaplan MD, [facility] CPT-4: 71674 03/06/2018 ([id number]) 50710 EST. PATIENT, LEVEL III Diagnosis: Cough[ICD10: R05] Diagnosis: Low back pain[ICD10: M54.5] [facility] CPT-4: 12762 02/24/2018 ([id number]) 93179 EST. PATIENT, LEVEL III Diagnosis: Essential (primary) hypertension[ICD10: I10] Diagnosis: Other skin changes[ICD10: R23.8] Nallely Kaplan MD, [facility] CPT-4: 90510 2018 ([id number]) Miscellaneous no charge Diagnosis: Essential (primary) hypertension[ICD10: I10] [facility] CPT-4: 35230 11/30/2017 ([id number]) OFFICE VISIT, NEW - LEVEL 4 Diagnosis: Essential (primary) hypertension[ICD10: I10] Diagnosis: Other hypoglycemia[ICD10: E16.1] Diagnosis: Dizziness and giddiness[ICD10: R42] Diagnosis: Unsteadiness on feet[ICD10: R26.81] Diagnosis: Low back pain[ICD10: M54.5] [facility] CPT- 4: 23457 11/28/2017 Plan of Care Planned Activity Notes Codes Status Date Visit Plan: Spinal stenosis- refer to Dr Geiger/Arias at [address] for evaluation Depression-stopped celexa due to weight gain -rx for wellbutrin provided and instructed on use-follow up in 1 month, sooner if needed. Patient verbalized understanding of plan. 03/06/2018 Patient Education: Patient Medication Summary Completed 03/06/2018 Patient Education: Back Pain Completed 03/06/2018 Care Plan: Referral Order SNOMED-CT : 052050929 Pending 03/06/2018 Visit Plan: Low back pain --schedule MRI lumbar spine for further evaluation Cough-chronic -recommend daily anti histamine -follow up in 10 days for re-eval 02/24/2018 Appointment: Giana Nuñez WPtel: [address] [phone] (15 min) Moderate 02/24/2018 Patient Education: Patient Medication Summary Completed 02/24/2018 Patient Education: Back Pain Completed 02/24/2018 Visit Plan: Hypertension - well controlled - continue with current medications, continue with no added salt diet. Pt has been encouraged to exercise daily. The pt has been advised to call the office if there are any acute concerns about change in blood pressure readings at home. dark mole right cheek 1 x 0.5cm - referral to Dr. Ibarra in [place] 2018 Appointment: [phone] [facility] (15 min) Moderate 2018 Patient Education: Patient Medication Summary Completed 2018 Appointment: Nurse Visit 11/30/2017 Patient Education: Patient Medication Summary Completed 11/30/2017 Visit Plan: Hypertension - well controlled - continue with current medications, continue with no added salt diet. Pt has been encouraged to exercise daily. The pt has been advised to call the office if there are any acute concerns about change in blood pressure readings at home. Low back pain - Balance abnormalities - I have recommended a referral to [facility] for therapy on lower back, balance. Hyperlipidemia - pt has been counseled about appropriate diet, exercise, and need for low fat food choices. I have discussed the need for the patient to take medications as prescribed. If the patient has negative side effects from the medication, they are to CALL the office and not abruptly discontinue the medication without discussion with a practitioner in the office. We will check labs in 3-6 months for follow up on the patient's chronic medical problem and to assure normal liver response to medications. Hypoglycemic episodes - increase protein in diet - monitor symptoms. 11/28/2017 Appointment: [facility] [phone] [facility] New Patient 11/28/2017 Patient Education: Patient Medication Summary Completed 11/28/2017 Referral: Agustín Geiger Referral Appointment Requested Instructions Comment . Hypertension - well controlled - continue with current medications, continue with no added salt diet. Pt has been encouraged to exercise daily. The pt has been advised to call the office if there are any acute concerns about change in blood pressure readings at home. Low back pain - Balance abnormalities - I have recommended a referral to [facility] for therapy on lower back, balance. Hyperlipidemia - pt has been counseled about appropriate diet, exercise, and need for low fat food choices. I have discussed the need for the patient to take medications as prescribed. If the patient has negative side effects from the medication, they are to CALL the office and not abruptly discontinue the medication without discussion with a practitioner in the office. We will check labs in 3-6 months for follow up on the patient's chronic medical problem and to assure normal liver response to medications. Hypoglycemic episodes - increase protein in diet - monitor symptoms. wellbutrin 75mg twice daily refer to [facility] . Spinal stenosis- refer to Dr Geiger/Arias at [facility] for evaluation Depression-stopped celexa due to weight gain -rx for wellbutrin provided and instructed on use-follow up in 1 month, sooner if needed. Patient verbalized understanding of plan. PROBIOTIC TWICE DAILY -IT IS OVER THE COUNTER KUB MRI LUMBAR SPINE . Low back pain --schedule MRI lumbar spine for further evaluation Cough-chronic -recommend daily anti histamine -follow up in 10 days for re-eval . Hypertension - well controlled - continue with current medications, continue with no added salt diet. Pt has been encouraged to exercise daily. The pt has been advised to call the office if there are any acute concerns about change in blood pressure readings at home. dark mole right cheek 1 x 0.5cm - referral to Dr. Ibarra in [place]
--- OUTSIDE RECORDS SUMMARY | 2018-04-29 10:33 | XMS REPORT | CCD ---
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 Name Role Phone PP Unavailable CCM Unavailable Summary Purpose Interface Exchange Insurance Providers Payer name Policy type / Coverage type Covered libertarian ID Effective Begin Date Effective End Date [employer] Commercial Insurance [id number] Unknown Family history Daughter Diagnosis Age At [...] Unknown Retired 11/28/[address]: 252623723 Unknown if ever smoked 11/28/2017 Alcohol history Unknown occasionally drinks alcohol 11/28/2017 Frequency of drinks SNOMED CT: 457949766 Drinks rarely 1 or 2 per year [...] Start Date Stop Date Status Fill Instructions pantoprazole 40 mg tablet,delayed release RxNorm: 007418 1 Tablet(s) PO daily 04/24/2018 07/17/2019 Active pentoxifylline ER 400 mg tablet,extended release RxNorm: 565147 1 Tablet(s) PO daily 04/24/2018 07/17/2019 Active bupropion HCl 75 mg tablet RxNorm: 421250 1 Tablet(s) PO BID 09/01/2018 Active carvedilol 25 mg tablet RxNorm: 991402 1 Tablet(s) PO BID 02/2411/20/2018 Active citalopram 10 mg tablet RxNorm: 400196 1 Tablet(s) PO QPM 12/1601/19/2018 Inactive montelukast 10 mg tablet RxNorm: 400583 1 Tablet(s) PO daily 02/22/2019 Active diclofenac 1 % topical gel RxNorm: 542639 4 Gram(s) TOP QID to back 11/30/2017 11/24/2018 Active pentoxifylline ER 400 mg tablet,extended release RxNorm: 280161 1 Tablet(s) PO daily 11/30/2017 04/23/2018 Inactive citalopram 10 mg tablet RxNorm: 697656 1 Tablet(s) PO QPM 11/2812/15/2017 Inactive diclofenac 1 % topical gel RxNorm: 786300 4 Gram(s) TOP QID toback 11/28/2017 11/29/2017 Inactive atorvastatin 20 mg tablet RxNorm: 138567 1 Tablet(s) PO daily No Start Date Active amlodipine 5 mg tablet RxNorm: 227592 1 Tablet(s) PO daily No Start Date Active Eliquis 5 mg tablet RxNorm: 9306055 1 Tablet(s) PO BID No Start Date Active magnesium oxide 400 mg tablet RxNorm: 389819 1 Tablet(s) PO daily No Start Date Active calcitriol 0.25 mcg capsule RxNorm: 921322 1 Capsule(s) PO daily No Start Date Active Aspirin Low Dose 81 mg tablet,delayed release RxNorm: 992649 1 Tablet(s) PO daily No Start Date 01/29/2018 Inactive carvedilol 25 mg tablet RxNorm: 051209 1 Tablet(s) PO BID No Start Date 02/23/2018 Inactive pantoprazole 40 mg tablet,delayed release RxNorm: 390927 1 Tablet(s) PO daily No Start Date 04/23/2018 Inactive duloxetine 30 mg capsule,delayed release RxNorm: 979762 1 Capsule(s) PO daily No Start Date 01/23/2018 Inactive montelukast 10 mg tablet RxNorm: 515638 1 Tablet(s) PO daily No Start Date 11/29/2017 Inactive pentoxifylline ER 400 mg tablet,extended release RxNorm: 654900 1 Tablet(s) PO daily No Start Date 11/29/2017 Inactive clopidogrel 75 mg tablet RxNorm: 022583 1 Tablet(s) PO daily No Start Date 01/29/2018 Inactive Medication Administered No Medication Administered data Immunizations Vaccine Codes Date Status Influenza CVX: 141 03/27/2018 completed Pneumococcal (Adult) CVX: 33 09/18/2013 completed Assessments [...] clear 11/28/2017 None Full Exam - General 1995 Ears/Nose/Throat oral cavity/pharynx/larynx Overall: oropharyngeal mucosa clear [...] Code : 8480-6 BMI: 28.5 Code : 08752-9 Heart Rate 1 : 86 bpm Height: 5'4" SpO2: 96% Weight: 166 lbs 02/24/2018 Blood Pressure 1: 120/74 Code : 8480-6 BMI: 28.5 Code : 52175-3 Heart Rate 1 : 92 bpm Height: 5'4" SpO2: 97% Weight: 166 lbs 2018 Blood Pressure 1: 136/78 Code : 8480-6 BMI: 28.5 Code : 49442-1 Heart Rate 1 : 106 bpm Height: 5'4" SpO2: 99% Weight: 166 lbs 11/28/2017 Blood Pressure 1: 140/84 Code : 8480-6 BMI: 27.3 Code : 69580-9 Heart Rate 1 : 81 bpm Height: [...] data Encounters Encounter Performer Location Codes Date ([id number]) 74211 EST. PATIENT, LEVEL III Diagnosis: Spinal stenosis, lumbar region without neurogenic claudication[ICD10 : M48.061] Diagnosis: Low back pain[ICD10: M54.5] Diagnosis: Major depressive disorder, single episode, unspecified[ICD10: F32.9] Giana Kaplan MD, [facility] CPT-4: 11884 03/06/2018 ([id number]) 28213 EST. PATIENT, LEVEL III Diagnosis: Cough[ICD10: R05] Diagnosis: Low back pain[ICD10: M54.5] [facility] CPT-4: 85953 02/24/2018 ([id number]) 14117 EST. PATIENT, LEVEL III Diagnosis: Essential (primary) hypertension[ICD10: I10] Diagnosis: Other skin changes[ICD10: R23.8] [facility] CPT-4: 88813 2018 ([id number]) Miscellaneous no charge Diagnosis: Essential (primary) hypertension[ICD10: I10] [facility] CPT-4: 44728 11/30/2017 ([id number]) OFFICE VISIT, NEW - LEVEL 4 Diagnosis: Essential (primary) hypertension[ICD10: I10] Diagnosis: Other hypoglycemia[ICD10: E16.1] Diagnosis: Dizziness and giddiness[ICD10: R42] Diagnosis: Unsteadiness on feet[ICD10: R26.81] Diagnosis: Low back pain[ICD10: M54.5] Nallely Kaplan MD, [facility] CPT- 4: 30586 11/28/2017 Plan of Care Planned Activity Notes Codes Status Date Appointment: Giana Nuñez WPtel: [phone] (15 min) Moderate 04/11/2018 Referral: Agustín Geiger Referral Completed 04/03/2018 Visit Plan: Spinal stenosis- refer to Dr Geiger/Arias at [address] for evaluation Depression-stopped celexa due to weight gain -rx for wellbutrin provided and instructed on use-follow up in 1 month, sooner if needed. Patient verbalized understanding of plan. 03/06/2018 Appointment: Giana Nuñez WPtel: [address] [place], [place] [phone] (15 min) Moderate 03/06/2018 Patient Education: Patient Medication Summary Completed 03/06/2018 Patient Education: Back Pain Completed 03/06/2018 Care Plan: Referral Order SNOMED-CT : [id number] Pending 03/06/2018 Visit Plan: Low back pain --schedule MRI lumbar spine for further evaluation Cough-chronic -recommend daily anti histamine -follow up in 10 days for re-eval 02/24/2018 Appointment: Giana Nuñez WPtel: [phone] (15 min) Moderate 02/24/2018 Patient Education: Patient [...] 0.5cm - referral to Dr. Ibarra in [place] 2018 Appointment: Nallely Kaplan WPtel: [facility] (15 min) Moderate 2018 Patient Education: Patient [...] monitor symptoms. 11/28/2017 Appointment: Nallely Kaplan WPtel: [facility] New Patient 11/28/2017 Patient Education: Patient Medication [...] 0.5cm - referral to Dr. Ibarra in [place]
--- OUTSIDE RECORDS SUMMARY | 2018-04-29 10:34 | XMS REPORT | CCD ---
Author Author Nallely Kaplan Organization [facility] Address [address] [place] [address] Phone Care Team Providers [employer] Name Role Phone PP Unavailable CCM Unavailable Summary Purpose Interface Exchange Insurance Providers Payer name Policy type / Coverage type Covered green party ID Effective Begin Date Effective End Date [employer] Commercial Insurance [id number] Unknown Family history Daughter Diagnosis Age At [...] Unknown Retired 11/28/[address]: 937315560 Unknown if ever smoked 11/28/2017 Alcohol history Unknown occasionally drinks alcohol 11/28/2017 Frequency of drinks SNOMED CT: 484357453 Drinks rarely 1 or 2 per year [...] Instructions bupropion HCl 75 mg tablet RxNorm: 029900 1 Tablet(s) PO BID 09/01/2018 Active carvedilol 25 mg tablet RxNorm: 784534 1 Tablet(s) PO BID 02/2411/20/2018 Active citalopram 10 mg tablet RxNorm: 638070 1 Tablet(s) PO QPM 12/1601/19/2018 Inactive pentoxifylline ER 400 mg tablet,extended release RxNorm: 563162 1 Tablet(s) PO daily 11/30/2017 02/22/2019 Active montelukast 10 mg tablet RxNorm: 623653 1 Tablet(s) PO daily 02/22/2019 Active diclofenac 1 % topical gel RxNorm: 516961 4 Gram(s) TOP QID to back 11/30/2017 11/24/2018 Active citalopram 10 mg tablet RxNorm: 738295 1 Tablet(s) PO QPM 11/2812/15/2017 Inactive diclofenac 1 % topical gel RxNorm: 670934 4 Gram(s) TOP QID toback 11/28/2017 11/29/2017 Inactive atorvastatin 20 mg tablet RxNorm: 542093 1 Tablet(s) PO daily No Start Date Active pantoprazole 40 mg tablet,delayed release RxNorm: 219125 1 Tablet(s) PO daily No Start Date Active amlodipine 5 mg tablet RxNorm: 768394 1 Tablet(s) PO daily No Start Date Active Eliquis 5 mg tablet RxNorm: 0483274 1 Tablet(s) PO BID No Start Date Active magnesium oxide 400 mg tablet RxNorm: 107031 1 Tablet(s) PO daily No Start Date Active calcitriol 0.25 mcg capsule RxNorm: 606133 1 Capsule(s) PO daily No Start Date Active Aspirin Low Dose 81 mg tablet,delayed release RxNorm: 291777 1 Tablet(s) PO daily No Start Date 01/29/2018 Inactive carvedilol 25 mg tablet RxNorm: 422128 1 Tablet(s) PO BID No Start Date 02/23/2018 Inactive duloxetine 30 mg capsule,delayed release RxNorm: 661432 1 Capsule(s) PO daily No Start Date 01/23/2018 Inactive montelukast 10 mg tablet RxNorm: 223589 1 Tablet(s) PO daily No Start Date 11/29/2017 Inactive pentoxifylline ER 400 mg tablet,extended release RxNorm: 829223 1 Tablet(s) PO daily No Start Date 11/29/2017 Inactive clopidogrel 75 mg tablet RxNorm: 673706 1 Tablet(s) PO daily No Start Date [...] Code : 8480-6 BMI: 28.5 Code : 48200-0 Heart Rate 1 : 86 bpm Height: 5'4" SpO2: 96% Weight: 166 lbs 02/24/2018 Blood Pressure 1: 120/74 Code : 8480-6 BMI: 28.5 Code : 25853-8 Heart Rate 1 : 92 bpm Height: 5'4" SpO2: 97% Weight: 166 lbs 2018 Blood Pressure 1: 136/78 Code : 8480-6 BMI: 28.5 Code : 87142-1 Heart Rate 1 : 106 bpm Height: 5'4" SpO2: 99% Weight: 166 lbs 11/28/2017 Blood Pressure 1: 140/84 Code : 8480-6 BMI: 27.3 Code : 01310-3 Heart Rate 1 : 81 bpm Height: [...] data Encounters Encounter Performer Location Codes Date ([id number]) 27701 EST. PATIENT, LEVEL III Diagnosis: Spinal stenosis, lumbar region without neurogenic claudication[ICD10 : M48.061] Diagnosis: Low back pain[ICD10: M54.5] Diagnosis: Major depressive disorder, single episode, unspecified[ICD10: F32.9] Giana Kaplan MD, [facility] CPT-4: 66912 03/06/2018 ([id number]) 34175 EST. PATIENT, LEVEL III Diagnosis: Cough[ICD10: R05] Diagnosis: Low back pain[ICD10: M54.5] [facility] CPT-4: 03412 02/24/2018 ([id number]) 27805 EST. PATIENT, LEVEL III Diagnosis: Essential (primary) hypertension[ICD10: I10] Diagnosis: Other skin changes[ICD10: R23.8] Nallely Kaplan MD, [facility] CPT-4: 21601 2018 ([id number]) Miscellaneous no charge Diagnosis: Essential (primary) hypertension[ICD10: I10] [facility] CPT-4: 98888 11/30/2017 ([id number]) OFFICE VISIT, NEW - LEVEL 4 Diagnosis: Essential (primary) hypertension[ICD10: I10] Diagnosis: Other hypoglycemia[ICD10: E16.1] Diagnosis: Dizziness and giddiness[ICD10: R42] Diagnosis: Unsteadiness on feet[ICD10: R26.81] Diagnosis: Low back pain[ICD10: M54.5] [facility] CPT- 4: 67805 11/28/2017 Plan of Care Planned Activity Notes Codes Status Date Visit Plan: Spinal stenosis- refer to Dr Geiger/Arias at [address] for evaluation Depression-stopped celexa due to weight gain -rx for wellbutrin provided and instructed on use-follow up in 1 month, sooner if needed. Patient verbalized understanding of plan. 03/06/2018 Patient Education: Patient Medication Summary Completed 03/06/2018 Patient Education: Back Pain Completed 03/06/2018 Care Plan: Referral Order SNOMED-CT : [id number] Pending 03/06/2018 Visit Plan: Low back pain --schedule MRI lumbar spine for further evaluation Cough-chronic -recommend daily anti histamine -follow up in 10 days for re-eval 02/24/2018 Appointment: Giana Nuñez WPtel: [phone] [phone] (15 min) Moderate 02/24/2018 Patient Education: Patient [...] 0.5cm - referral to Dr. Ibarra in [place] 2018 Appointment: [facility] [phone] [facility] (15 min) Moderate 2018 Patient Education: Patient [...] monitor symptoms. 11/28/2017 [facility]ment[phone] [facility] New Patient 11/28/2017 Patient Education: Patient Medication [...] 0.5cm - referral to Dr. Ibarra in [place]
--- OUTSIDE RECORDS SUMMARY | 2018-04-29 10:34 | XMS REPORT | CCD ---
Author Author Nallely Kaplan Organization [facility] Address [address] [place] [address] Phone Care Team Providers Care [employer] Name Role Phone PP Unavailable CCM Unavailable Summary Purpose Interface Exchange Insurance Providers Payer name Policy type / Coverage type Covered constitution party ID Effective Begin Date Effective End Date [employer] Commercial Insurance [id number] Unknown Family history Daughter Diagnosis Age At [...] Unknown Retired 11/28/[address]: 459062878 Unknown if ever smoked 11/28/2017 Alcohol history Unknown occasionally drinks alcohol 11/28/2017 Frequency of drinks SNOMED CT: 808432792 Drinks rarely 1 or 2 per year 11/28/2017 Allergies, Adverse Reactions, Alerts Substance Reaction Codes Entered Date Inactivated Date Status MORPHINE SULFATE pruritis RxNorm: 7052 11/28/2017 No Inactive Date Active Past Medical History Illness Codes Condition Status Onset Date Resolved Date Cough ICD-9: 786.2 ICD-10: R05 Active 02/24/2018 Unknown Low back pain ICD-9: 724.2 ICD-10: M54.5 Active 11/28/2017 Unknown Essential (primary) hypertension ICD-9: 401.1 ICD-10: I10 Active 11/28/2017 Unknown Other skin changes ICD -9: 782.9 ICD-10: R23.8 Active 2018 Unknown Dizziness and giddiness ICD-9: 780.4 ICD-10: R42 Active 11/28/2017 Unknown Other hypoglycemia ICD -9: 251.1 ICD-10: E16.1 Active 11/28/2017 Unknown Unsteadiness on feet ICD-9: 781.2 ICD-10: R26.81 Active 11/28/2017 Unknown Problems Condition Codes Effective Dates Condition Status Cough ICD-9: 786.2 ICD-10: R05 02/24/2018 Active Low back pain ICD-9: 724.2 ICD-10: M54.5 11/28/2017 Active Essential (primary) hypertension ICD-9: 401.1 ICD-10: I10 11/28/2017 Active Other skin changes ICD -9: 782.9 ICD-10: R23.8 2018 Active Dizziness and giddiness ICD-9: 780.4 ICD-10: R42 11/28/2017 Active Other hypoglycemia ICD -9: 251.1 ICD-10: E16.1 11/28/2017 Active Unsteadiness on feet ICD-9: 781.2 ICD-10: R26.81 11/28/2017 Active Medications Medication Codes Instructions Start Date Stop Date Status Fill Instructions carvedilol 25 mg tablet RxNorm: 276198 1 Tablet(s) PO BID 02/2411/20/2018 Active citalopram 10 mg tablet RxNorm: 171913 1 Tablet(s) PO QPM 12/1601/19/2018 Inactive pentoxifylline ER 400 mg tablet,extended release RxNorm: 168156 1 Tablet(s) PO daily 11/30/2017 02/22/2019 Active montelukast 10 mg tablet RxNorm: 942850 1 Tablet(s) PO daily 02/22/2019 Active diclofenac 1 % topical gel RxNorm: 544823 4 Gram(s) TOP QID to back 11/30/2017 11/24/2018 Active citalopram 10 mg tablet RxNorm: 276296 1 Tablet(s) PO QPM 11/2812/15/2017 Inactive diclofenac 1 % topical gel RxNorm: 192594 4 Gram(s) TOP QID toback 11/28/2017 11/29/2017 Inactive atorvastatin 20 mg tablet RxNorm: 381366 1 Tablet(s) PO daily No Start Date Active pantoprazole 40 mg tablet,delayed release RxNorm: 325123 1 Tablet(s) PO daily No Start Date Active amlodipine 5 mg tablet RxNorm: 067729 1 Tablet(s) PO daily No Start Date Active Eliquis 5 mg tablet RxNorm: 5402349 1 Tablet(s) PO BID No Start Date Active magnesium oxide 400 mg tablet RxNorm: 848683 1 Tablet(s) PO daily No Start Date Active calcitriol 0.25 mcg capsule RxNorm: 109914 1 Capsule(s) PO daily No Start Date Active Aspirin Low Dose 81 mg tablet,delayed release RxNorm: 853637 1 Tablet(s) PO daily No Start Date 01/29/2018 Inactive carvedilol 25 mg tablet RxNorm: 925992 1 Tablet(s) PO BID No Start Date 02/23/2018 Inactive duloxetine 30 mg capsule,delayed release RxNorm: 368181 1 Capsule(s) PO daily No Start Date 01/23/2018 Inactive montelukast 10 mg tablet RxNorm: 075133 1 Tablet(s) PO daily No Start Date 11/29/2017 Inactive pentoxifylline ER 400 mg tablet,extended release RxNorm: 968879 1 Tablet(s) PO daily No Start Date 11/29/2017 Inactive clopidogrel 75 mg tablet RxNorm: 383611 1 Tablet(s) PO daily No Start Date 01/29/2018 Inactive Medication Administered No Medication Administered data Immunizations Vaccine Codes Date Status Pneumococcal (Adult) CVX: 33 09/18/2013 completed Assessments Condition Codes Effective Dates Low back pain ICD-10: M54.5 ICD-9: 724.2 02/24/2018 Cough ICD-10: R05 ICD-9: 786.2 02/24/2018 Essential (primary) hypertension ICD-10: I10 ICD-9: 401.1 2018 Other skin changes ICD-10: R23.8 ICD-9: 782.9 2018 Unsteadiness on feet ICD-10: R26.81 ICD-9: 781.2 11/28/2017 Dizziness and giddiness ICD-10: R42 ICD-9: 780.4 11/28/2017 Other hypoglycemia ICD-10: E16.1 ICD-9: 251.1 11/28/2017 Reason For Visit Reason For Visit Effective Dates Notes cough 02/24/2018 hypertension 2018 hypertension 11/28/2017 Results No Results data Review of Systems System Result Effective Dates Constitutional recent illness 02/24/2018 Constitutional No chills [...] No Procedures data Vital Signs Date Vital 02/24/2018 Blood Pressure 1: 120/74 Code : 8480-6 BMI: 28.5 Code : 12218-4 Heart Rate 1 : 92 bpm Height: 5'4" SpO2: 97% Weight: 166 lbs 2018 Blood Pressure 1: 136/78 Code : 8480-6 BMI: 28.5 Code : 90734-8 Heart Rate 1 : 106 bpm Height: 5'4" SpO2: 99% Weight: 166 lbs 11/28/2017 Blood Pressure 1: 140/84 Code : 8480-6 BMI: 27.3 Code : 42966-1 Heart Rate 1 : 81 bpm Height: 5'4" SpO2: 98% Weight: 159 lbs Functional Status No Functional Status data History of Present Illness Symptom Name Status Result Effective Date Notes Location in the throat 02/24/2018 None Quality [...] data Encounters Encounter Performer Location Codes Date ([id number]) 76084 EST. PATIENT, LEVEL III Diagnosis: Cough[ICD10: R05] Diagnosis: Low back pain[ICD10: M54.5] [facility] CPT-4: 00886 02/24/2018 ([id number] 79129 EST. PATIENT, LEVEL III Diagnosis: Essential (primary) hypertension[ICD10: I10] Diagnosis: Other skin changes[ICD10: R23.8] [facility] CPT-4: 41031 2018 ([id number]) Miscellaneous no charge Diagnosis: Essential (primary) hypertension[ICD10: I10] [facility] CPT-4: 38916 11/30/2017 ([id number]) OFFICE VISIT, NEW - LEVEL 4 Diagnosis: Essential (primary) hypertension[ICD10: I10] Diagnosis: Other hypoglycemia[ICD10: E16.1] Diagnosis: Dizziness and giddiness[ICD10: R42] Diagnosis: Unsteadiness on feet[ICD10: R26.81] Diagnosis: Low back pain[ICD10: M54.5] Nallely Kaplan MD, [facility] CPT- 4: 97569 11/28/2017 Plan of Care Planned Activity Notes Codes Status Date Visit Plan: Low back pain --schedule MRI lumbar spine for further evaluation Cough-chronic -recommend daily anti histamine -follow up in 10 days for re-eval 02/24/2018 Appointment: Giana Nuñez WPtel: [phone] [place] (15 min) Moderate 02/24/2018 Patient Education: Patient [...] 0.5cm - referral to Dr. Ibarra in [place] 2018 Appointment: [facility]alle[facility] Kaplan [facility]el[facility] [phone] [facility] [place] (15 min) Moderate 2018 Patient Education: Patient [...] monitor symptoms. 11/28/2017 Appointment: Nallely Kaplan WPtel: [address] [place], [place] [address] New Patient 11/28/2017 Patient Education: Patient Medication Summary Completed 11/28/2017 Instructions Comment . Hypertension - well controlled [...] increase protein in diet - monitor symptoms. PROBIOTIC TWICE DAILY -IT IS OVER THE [...] 0.5cm - referral to Dr. Ibarra in [place]
--- OUTSIDE RECORDS SUMMARY | 2018-04-29 10:34 | XMS REPORT | CCD ---
Author Author Nallely Kaplan Organization [facility] Address [address] [place] [address] Phone Care Team Providers Care [employer] Trimmer Name Role Phone PP Unavailable CCM Unavailable Summary Purpose Interface Exchange Insurance Providers Payer name Policy type / Coverage type Covered democrat ID Effective Begin Date Effective End Date [employer] Commercial Insurance [id number] Unknown Family history Daughter Diagnosis Age At [...] Unknown Retired 11/28/[address]: 282723774 Unknown if ever smoked 11/28/2017 Alcohol history Unknown occasionally drinks alcohol 11/28/2017 Frequency of drinks SNOMED CT: 355720960 Drinks rarely 1 or 2 per year [...] Fill Instructions carvedilol 25 mg tablet RxNorm: 449317 1 Tablet(s) PO BID 02/2411/20/2018 Active citalopram 10 mg tablet RxNorm: 835587 1 Tablet(s) PO QPM 12/1601/19/2018 Inactive pentoxifylline ER 400 mg tablet,extended release RxNorm: 138856 1 Tablet(s) PO daily 11/30/2017 02/22/2019 Active montelukast 10 mg tablet RxNorm: 352594 1 Tablet(s) PO daily 02/22/2019 Active diclofenac 1 % topical gel RxNorm: 062694 4 Gram(s) TOP QID to back 11/30/2017 11/24/2018 Active citalopram 10 mg tablet RxNorm: 559302 1 Tablet(s) PO QPM 11/2812/15/2017 Inactive diclofenac 1 % topical gel RxNorm: 065647 4 Gram(s) TOP QID toback 11/28/2017 11/29/2017 Inactive atorvastatin 20 mg tablet RxNorm: 304339 1 Tablet(s) PO daily No Start Date Active pantoprazole 40 mg tablet,delayed release RxNorm: 653181 1 Tablet(s) PO daily No Start Date Active amlodipine 5 mg tablet RxNorm: 202882 1 Tablet(s) PO daily No Start Date Active Eliquis 5 mg tablet RxNorm: 4951224 1 Tablet(s) PO BID No Start Date Active magnesium oxide 400 mg tablet RxNorm: 454872 1 Tablet(s) PO daily No Start Date Active calcitriol 0.25 mcg capsule RxNorm: 479268 1 Capsule(s) PO daily No Start Date Active Aspirin Low Dose 81 mg tablet,delayed release RxNorm: 914660 1 Tablet(s) PO daily No Start Date 01/29/2018 Inactive carvedilol 25 mg tablet RxNorm: 193456 1 Tablet(s) PO BID No Start Date 02/23/2018 Inactive duloxetine 30 mg capsule,delayed release RxNorm: 773544 1 Capsule(s) PO daily No Start Date 01/23/2018 Inactive montelukast 10 mg tablet RxNorm: 147974 1 Tablet(s) PO daily No Start Date 11/29/2017 Inactive pentoxifylline ER 400 mg tablet,extended release RxNorm: 820227 1 Tablet(s) PO daily No Start Date 11/29/2017 Inactive clopidogrel 75 mg tablet RxNorm: 717032 1 Tablet(s) PO daily No Start Date [...] Code : 8480-6 BMI: 28.5 Code : 59817-5 Heart Rate 1 : 92 bpm Height: 5'4" SpO2: 97% Weight: 166 lbs 2018 Blood Pressure 1: 136/78 Code : 8480-6 BMI: 28.5 Code : 15267-9 Heart Rate 1 : 106 bpm Height: 5'4" SpO2: 99% Weight: 166 lbs 11/28/2017 Blood Pressure 1: 140/84 Code : 8480-6 BMI: 27.3 Code : 43209-9 Heart Rate 1 : 81 bpm Height: [...] data Encounters Encounter Performer Location Codes Date ([id number]) 88432 EST. PATIENT, LEVEL III Diagnosis: Cough[ICD10: R05] Diagnosis: Low back pain[ICD10: M54.5] [facility] CPT-4: 14441 02/24/2018 ([id number]) 41753 EST. PATIENT, LEVEL III Diagnosis: Essential (primary) hypertension[ICD10: I10] Diagnosis: Other skin changes[ICD10: R23.8] [facility] CPT-4: 53671 2018 ([id number]) Miscellaneous no charge Diagnosis: Essential (primary) hypertension[ICD10: I10] Nallely Kaplan MD, [facility] CPT-4: 64741 11/30/2017 ([id number]) OFFICE VISIT, NEW - LEVEL 4 Diagnosis: Essential (primary) hypertension[ICD10: I10] Diagnosis: Other hypoglycemia[ICD10: E16.1] Diagnosis: Dizziness and giddiness[ICD10: R42] Diagnosis: Unsteadiness on feet[ICD10: R26.81] Diagnosis: Low back pain[ICD10: M54.5] Nallely Kaplan MD, [facility] CPT- 4: 50260 11/28/2017 Plan of Care Planned Activity Notes Codes Status Date Visit Plan: Low back pain --schedule MRI lumbar spine for further evaluation Cough-chronic -recommend daily anti histamine -follow up in 10 days for re-eval 02/24/2018 Patient Education: Patient Medication Summary Completed [...] 0.5cm - referral to Dr. Ibarra in [place] 2018 Appointment: Nallely Kaplan WPtel: [address] [place], [place] [address] (15 min) Moderate 2018 Patient Education: Patient [...] monitor symptoms. 11/28/2017 App[facility]ment: [facility] [phone] [facility] [facility] 11/28/2017 Patient Education: Patient [...] - I have recommended a referral to via [facility] for therapy on lower back, balance. Hyperlipidemia [...] 0.5cm - referral to Dr. Ibarra in [place]
--- OUTSIDE RECORDS SUMMARY | 2018-04-29 10:35 | XMS REPORT | CCD ---
Author Author Nallely Kaplan Organization [facility] Address [address] [place] [address] Phone Care Team Providers Care [employer] Name Role Phone PP Unavailable CCM Unavailable Summary Purpose Interface Exchange Insurance Providers Payer name Policy type / Coverage type Covered democrat ID Effective Begin Date Effective End Date [employer] Commercial Insurance [id number] Unknown Family history Daughter Diagnosis Age At [...] Unknown Retired 11/28/[address]: 200177484 Unknown if ever smoked 11/28/2017 Alcohol history Unknown occasionally drinks alcohol 11/28/2017 Frequency of drinks SNOMED CT: 382885121 Drinks rarely 1 or 2 per year 11/28/2017 Allergies, Adverse Reactions, Alerts Substance Reaction Codes Entered Date Inactivated Date Status MORPHINE SULFATE pruritis RxNorm: 7052 11/28/2017 No Inactive Date Active Past Medical History Illness Codes Condition Status Onset Date Resolved Date Essential (primary) hypertension ICD-9: 401.1 ICD-10: I10 Active 11/28/2017 Unknown Other skin changes ICD -9: 782.9 ICD-10: R23.8 Active 2018 Unknown Dizziness and giddiness ICD-9: 780.4 ICD-10: R42 Active 11/28/2017 Unknown Low back pain ICD-9: 724.2 ICD-10: M54.5 Active 11/28/2017 Unknown Other hypoglycemia ICD -9: 251.1 ICD-10: E16.1 Active 11/28/2017 Unknown Unsteadiness on feet ICD-9: 781.2 ICD-10: R26.81 Active 11/28/2017 Unknown Problems Condition Codes Effective Dates Condition Status Essential (primary) hypertension ICD-9: 401.1 ICD-10: I10 11/28/2017 Active Other skin changes ICD -9: 782.9 ICD-10: R23.8 2018 Active Dizziness and giddiness ICD-9: 780.4 ICD-10: R42 11/28/2017 Active Low back pain ICD-9: 724.2 ICD-10: M54.5 11/28/2017 Active Other hypoglycemia ICD -9: 251.1 ICD-10: E16.1 11/28/2017 Active Unsteadiness on feet ICD-9: 781.2 ICD-10: R26.81 11/28/2017 Active Medications Medication Codes Instructions Start Date Stop Date Status Fill Instructions citalopram 10 mg tablet RxNorm: 912436 1 Tablet(s) PO QPM 12/1601/19/2018 Inactive pentoxifylline ER 400 mg tablet,extended release RxNorm: 629770 1 Tablet(s) PO daily 11/30/2017 02/22/2019 Active montelukast 10 mg tablet RxNorm: 656119 1 Tablet(s) PO daily 02/22/2019 Active diclofenac 1 % topical gel RxNorm: 807198 4 Gram(s) TOP QID to back 11/30/2017 11/24/2018 Active citalopram 10 mg tablet RxNorm: 526817 1 Tablet(s) PO QPM 11/2812/15/2017 Inactive diclofenac 1 % topical gel RxNorm: 465574 4 Gram(s) TOP QID toback 11/28/2017 11/29/2017 Inactive carvedilol 25 mg tablet RxNorm: 178260 1 Tablet(s) PO BID No Start Date Active atorvastatin 20 mg tablet RxNorm: 764125 1 Tablet(s) PO daily No Start Date Active pantoprazole 40 mg tablet,delayed release RxNorm: 463443 1 Tablet(s) PO daily No Start Date Active amlodipine 5 mg tablet RxNorm: 456978 1 Tablet(s) PO daily No Start Date Active Eliquis 5 mg tablet RxNorm: 1248606 1 Tablet(s) PO BID No Start Date Active magnesium oxide 400 mg tablet RxNorm: 848331 1 Tablet(s) PO daily No Start Date Active calcitriol 0.25 mcg capsule RxNorm: 274947 1 Capsule(s) PO daily No Start Date Active Aspirin Low Dose 81 mg tablet,delayed release RxNorm: 129666 1 Tablet(s) PO daily No Start Date 01/29/2018 Inactive duloxetine 30 mg capsule,delayed release RxNorm: 430370 1 Capsule(s) PO daily No Start Date 01/23/2018 Inactive montelukast 10 mg tablet RxNorm: 833469 1 Tablet(s) PO daily No Start Date 11/29/2017 Inactive pentoxifylline ER 400 mg tablet,extended release RxNorm: 845787 1 Tablet(s) PO daily No Start Date 11/29/2017 Inactive clopidogrel 75 mg tablet RxNorm: 499130 1 Tablet(s) PO daily No Start Date 01/29/2018 Inactive Medication Administered No Medication Administered data Immunizations Vaccine Codes Date Status Pneumococcal (Adult) CVX: 33 09/18/2013 completed Assessments Condition Codes Effective Dates Essential (primary) hypertension ICD-10: I10 ICD-9: 401.1 2018 Other skin changes ICD-10: R23.8 ICD-9: 782.9 2018 Unsteadiness on feet ICD-10: R26.81 ICD-9: 781.2 11/28/2017 Dizziness and giddiness ICD-10: R42 ICD-9: 780.4 11/28/2017 Low back pain ICD-10: M54.5 ICD-9: 724.2 11/28/2017 Other hypoglycemia ICD-10: E16.1 ICD-9: 251.1 11/28/2017 Reason For Visit Reason For Visit Effective Dates Notes hypertension 2018 hypertension 11/28/2017 Results No Results [...] No Procedures data Vital Signs Date Vital 2018 Blood Pressure 1: 136/78 Code : 8480-6 BMI: 28.5 Code : 93003-5 Heart Rate 1 : 106 bpm Height: 5'4" SpO2: 99% Weight: 166 lbs 11/28/2017 Blood Pressure 1: 140/84 Code : 8480-6 BMI: 27.3 Code : 91523-5 Heart Rate 1 : 81 bpm Height: 5'4" SpO2: 98% Weight: 159 lbs Functional Status No Functional Status data History of Present Illness Symptom Name Status Result Effective Date Notes hypertension Onset and Resolution ongoing 2018 None [...] data Encounters Encounter Performer Location Codes Date ([id number]) 40136 EST. PATIENT, LEVEL III Diagnosis: Essential (primary) hypertension[ICD10: I10] Diagnosis: Other skin changes[ICD10: R23.8] [facility] CPT-4: 54561 2018 ([id number]) Miscellaneous no charge Diagnosis: Essential (primary) hypertension[ICD10: I10] [facility] CPT-4: 15583 11/30/2017 ([id number]) OFFICE VISIT, NEW - LEVEL 4 Diagnosis: Essential (primary) hypertension[ICD10: I10] Diagnosis: Other hypoglycemia[ICD10: E16.1] Diagnosis: Dizziness and giddiness[ICD10: R42] Diagnosis: Unsteadiness on feet[ICD10: R26.81] Diagnosis: Low back pain[ICD10: M54.5] [facility] CPT- 4: 65279 11/28/2017 Plan of Care Planned Activity Notes Codes Status Date Visit Plan: Hypertension - well controlled - continue with current medications, continue with no added salt diet. Pt has been encouraged to exercise daily. The pt has been advised to call the office if there are any acute concerns about change in blood pressure readings at home. dark mole right cheek 1 x 0.5cm - referral to Dr. Ibarra in [place] 2018 Patient Education: Patient Medication Summary Completed [...] symptoms. 11/28/2017 Appointment: Nalle[facility] Kaplan [facility]el[phone] [facility] [place] New Patient 11/28/2017 Patient Education: Patient Medication [...] increase protein in diet - monitor symptoms. . Hypertension - well controlled - continue with current medications, continue with no added salt diet. Pt has been encouraged to exercise daily. The pt has been advised to call the office if there are any acute concerns about change in blood pressure readings at home. dark mole right cheek 1 x 0.5cm - referral to Dr. Ibarra in [place]
--- OUTSIDE RECORDS SUMMARY | 2018-04-29 10:40 | XMS REPORT | Continuity of Care Document ---
Author Author [facility] Organization [facility] Address Unknown Phone Unavailable Allergies Active Description Code Type Severity Reaction Onset Reported/Identified Relationship to Patient Clinical Status Yes NO KNOWN DRUG ALLERGIES UNKNOWN NO KNOWN DRUG ALLERG Yes NKDA NKDA Mild N/ A 09/01/2008 Yes No Known Drug Allergies [id number] Drug Allergy Unknown N/A 08/13/2016 Medications There is no data. Problems Date Dx Coded Attending Type Code Diagnosis Diagnosed By 02/17/1555 EDILMA BROWNING APRN Ot M54.5 LOW BACK PAIN 02/17/1555 EDILMA BROWNING APRN Ot R26.89 OTHER ABNORMALITIES OF GAIT AND MOBILITY 12/18/2009 Ot 272.4 12/18/2009 Ot 310.8 12/18/2009 [...] Hernandez Ot 300.00 ANXIETY STATE NOS 09/15/2012 ERNESTO FRITZ MD Ot 530.11 REFLUX ESOPHAGITIS 10/26/2012 ERNESTO FRITZ MD Ot 530.11 REFLUX ESOPHAGITIS 10/26/2012 CATRINA WOODS, ERNESTO S Ot V45.89 POSTSURGICAL STATES NEC 03/22/2014 IWONA [...] 03/22/2014 Ot V72.84 03/22/2014 CATRINA WOODS, ERNESTO S Ot V72.84 [...] CATRINA WOODS, ERNESTO S Ot V72.84 03/22/2014 DAPHNIE ODELL Ot 272.4 03/22/2014 DAPHNIE ODELL Ot 397.0 03/22/2014 DAPHNIE ODELL Ot 401.9 03/22/2014 DAPHNIE ODELL Ot 424.0 03/22/2014 DAPHNIE ODELL K Ot 786.09 03/22/2014 MINH WOODS, TELLO [...] JERICA Vogel Ot V17.1 FAMILY HX-STROKE 03/26/2014 JERICA GILLIAM MD Ot V57.89 REHABILITATION PROC NEC 04/10/2014 DOMI MARTINEZ MD Ot 272.4 HYPERLIPIDEMIA NEC/NOS 04/10/2014 DOMI MARTINEZ [...] MICHELLE WOODS, DOMI Munoz Ot I10 06/26/2015 DOMI MARTINEZ MD Ot I63.9 06/26/2015 DOMI MARTINEZ MD Ot I73.9 07/08/2015 DOMI MARTINEZ MD Ot E78.5 HYPERLIPIDEMIA, UNSPECIFIED 07/08/2015 DOMI MARTINEZ MD Ot I10 ESSENTIAL (PRIMARY) HYPERTENSION 07/08/2015 DOMI MARTINEZ MD Ot I63.9 CEREBRAL INFARCTION, UNSPECIFIED 07/08/2015 DOMI [...] OF PEPTIC ULCER DISEASE 08/18/2016 NADIA BARTHOLOMEW MD, Ot E78.5 HYPERLIPIDEMIA, UNSPECIFIED 08/18/2016 NADIA BARTHOLOMEW MD Ot I10 ESSENTIAL (PRIMARY) HYPERTENSION 08/18/2016 NADIA BARTHOLOMEW MD Ot K21.0 GASTRO-ESOPHAGEAL REFLUX DISEASE WITH ES 08/18/2016 NADIA BARTHOLOMEW MD Ot K29.70 GASTRITIS, UNSPECIFIED, WITHOUT BLEEDING 08/18/2016 NADIA BARTHOLOMEW MD, Ot 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 [...] INT W/O PERFORATION OR AB 09/05/2016 NADIA BARTHOLOEMW MD Ot K64.1 SECOND DEGREE HEMORRHOIDS 09/05/2016 [...] FRITZ MD Ot 530.81 ESOPHAGEAL REFLUX 09/06/2016 CATRINA WOODS, ERNESTO S Ot V72.63 PRE-PROCEDURAL LABORATORY EXAMINATION 09/06/2016 CATRINA WOODS, ERNESTO S Ot V72.81 [id number] CARDIOVASCULAR 09/06/2016 CATRINA WOODS, ERNESTO S Ot V72.83 EXAM PRE-OPERATIVE NEC 09/06/2016 ERNESTO FRITZ MD S Ot V74.8 SCREEN-BACTERIAL DIS NEC 09/06/2016 ERNESTO FRITZ MD S Ot V72.84 EXAM PRE-OPERATIVE NOS 09/06/2016 CATRINA WOODS, ERNESTO S Ot 530.81 ESOPHAGEAL REFLUX 09/06/2016 CATRINA WOODS, ERNESTO S Ot V45.89 POSTSURGICAL STATES NEC 09/06/2016 ERNESTO FRITZ MD S Ot V72.84 EXAM PRE-OPERATIVE NOS 09/06/2016 CATRINA WOODS, ERNESTO S Ot 530.11 REFLUX ESOPHAGITIS 09/06/2016 ERNESTO FRITZ MD S Ot V45.89 POSTSURGICAL STATES NEC 09/06/2016 [...] Ot I10 ESSENTIAL (PRIMARY) HYPERTENSION 09/06/2016 DOMI MRATINEZ MD Ot I63.9 CEREBRAL INFARCTION, UNSPECIFIED 09/06/2016 DOMI MARTINEZ MD Ot I73.9 PERIPHERAL VASCULAR DISEASE, UNSPECIFIED 09/07/2016 SANDY WILLIS DO Ot D64.9 ANEMIA, UNSPECIFIED 09/07/2016 SANDY WILLIS DO Ot E78.5 HYPERLIPIDEMIA, UNSPECIFIED 09/07/2016 WILLISEDWIN CULP DOI Ot E86.0 DEHYDRATION 09/07/2016 EDWIN WILLIS DOI Ot F41.9 ANXIETY DISORDER, UNSPECIFIED 09/07/2016 LAZARO ALEXANDER SANDY Ot I10 ESSENTIAL (PRIMARY) HYPERTENSION 09/07/2016 EDWIN WILLIS DOI Ot J18.9 PNEUMONIA, UNSPECIFIED ORGANISM 09/07/2016 WILLISSUNI ALEXANDER SANDY Ot K21.9 GASTRO-ESOPHAGEAL REFLUX DISEASE WITHOUT 09/07/2016 EDWIN WILLIS DOI Ot N19 UNSPECIFIED KIDNEY FAILURE 09/07/2016 LAZARO ALEXANDER SANDY Ot R41.0 DISORIENTATION, UNSPECIFIED 09/07/2016 LAZARO ALEXANDER SANDY Ot R61 GENERALIZED HYPERHIDROSIS 09/07/2016 EDWIN WILLIS DOI Ot R63.4 ABNORMAL WEIGHT LOSS 09/07/2016 EDWIN WILLIS DOI Ot Z79.82 BRUSH WORKER (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 OF ASPIRIN 09/07/2016 EDWIN WILLIS DOI Ot Z79.899 OTHER ALF (CURRENT) DRUG THERAPY 09/07/2016 EDWIN WILLIS DOI Ot Z86.73 PRSNL HX OF TIA (TIA), [...] OTHER MALAISE AND FATIGUE 11/30/2016 TELLO WILKINSON Theodora 780.8 GENERALIZED HYPERHIDROSIS 11/30/2016 TELLO WILKINSON Theodora E21.0 PRIMARY HYPERPARATHYROIDISM 11/30/2016 TELLO WILKINSON Theodora M79.7 FIBROMYALGIA 11/30/2016 TELLO WILKINSON W R54 AGE-RELATED PHYSICAL DEBILITY 11/30/2016 TELLO WILKINSON W R61 GENERALIZED HYPERHIDROSIS 11/30/2016 TELLO WILKINSON W 252.01 PRIMARY HYPERPARATHYROIDISM 11/30/2016 TELLO WILKINSON W 729.1 MYALGIA AND MYOSITIS, UNSPECIFIED 11/30/2016 TELLO WILKINSON Theodora 780.79 OTHER MALAISE AND FATIGUE 11/30/2016 TELLO WILKINSON W 780.8 GENERALIZED HYPERHIDROSIS 11/30/2016 TELLO WILKINSON Theodora E21.0 PRIMARY HYPERPARATHYROIDISM 11/30/2016 GEORGETTE WILKINSONJACK Yip M79.7 FIBROMYALGIA 11/30/2016 GEORGETTE WILKINSONJACK Yip R54 AGE-RELATED PHYSICAL DEBILITY 11/30/2016 TELLO WILKINSON R61 GENERALIZED HYPERHIDROSIS 01/04/2017 EDWIN WILLIS DOI Ot F17.210 NICOTINE DEPENDENCE, CIGARETTES, UNCOMPL 01/04/2017 EDWIN WILLIS DOI Ot F41.9 ANXIETY DISORDER, UNSPECIFIED 01/04/2017 EDWIN WILLIS DOI Ot G93.89 OTHER SPECIFIED DISORDERS OF BRAIN 01/04/2017 LAZARO ALEXANDER SANDY Ot H40.9 UNSPECIFIED GLAUCOMA 01/04/2017 EDWIN WILLIS DOI Ot H53.2 DIPLOPIA 01/04/2017 LAZARO ALEXANDER SANDY Ot H53.47 HETERONYMOUS BILATERAL FIELD DEFECTS 01/04/2017 LAZARO ALEXANDER SANDY Ot H53.8 OTHER VISUAL DISTURBANCES 01/04/2017 LAZARO ALEXANDER SANDY Ot I10 ESSENTIAL (PRIMARY) HYPERTENSION 01/04/2017 EDWIN WILLIS DOI Ot I35.8 OTHER NONRHEUMATIC AORTIC VALVE DISORDER 01/04/2017 EDWIN WILLIS DOI Ot I63.9 CEREBRAL INFARCTION, UNSPECIFIED 01/04/2017 EDWIN WILLIS DOI Ot I69.398 OTHER SEQUELAE OF CEREBRAL INFARCTION 01/04/2017 SANDY WILLIS DO Ot 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 01/04/2017 EDWIN WILLIS DOI Ot J30.2 OTHER SEASONAL ALLERGIC RHINITIS 01/04/2017 EDWIN WILLIS DOI Ot K21.9 GASTRO-ESOPHAGEAL REFLUX DISEASE WITHOUT 01/04/2017 EDWIN WILLIS DOI Ot M19.91 PRIMARY OSTEOARTHRITIS, UNSPECIFIED SITE 01/04/2017 EDWIN WILLIS DOI Ot R01.1 CARDIAC MURMUR, UNSPECIFIED 01/04/2017 EDWIN WILLIS DOI Ot R29.702 NIHSS SCORE 2 01/04/2017 EDWIN WILLIS DOI Ot Z79.02 ALF (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 OF ANTITHROMBOTI 01/04/2017 EDWIN WILLIS DOI Ot Z86.73 PRSNL HX OF TIA (TIA), AND CEREB INFRC W 01/04/2017 EDWIN WILLIS DOI Ot Z87.11 PERSONAL HISTORY OF PEPTIC ULCER DISEASE 03/07/2017 TELLO WILKINSON W 272.4 OTHER AND UNSPECIFIED HYPERLIPIDEMIA 03/07/2017 TELLO WILKINSON 401.0 MALIGNANT ESSENTIAL HYPERTENSION 03/07/2017 TELLO WILKINSON E78.5 HYPERLIPIDEMIA, UNSPECIFIED 03/07/2017 TELLO WILKINSON I10 ESSENTIAL (PRIMARY) HYPERTENSION 03/07/2017 TELLO WILKINSON 272.4 OTHER AND UNSPECIFIED HYPERLIPIDEMIA 03/07/2017 TELLO WILKINSON 401.0 MALIGNANT ESSENTIAL HYPERTENSION 03/07/2017 TELLO WILKINSON E78.5 HYPERLIPIDEMIA, UNSPECIFIED 03/07/2017 TELLO WILKINSON I10 ESSENTIAL (PRIMARY) HYPERTENSION 03/09/2017 TELLO WILKINSON [...] PRE- OPERATIVE NOS 05/17/2017 CATRINA WOODS, ERNESTO S Ot V72.84 EXAM PRE-OPERATIVE NOS 05/17/2017 CATRINA WOODS, ERNESTO S Ot 530.11 REFLUX ESOPHAGITIS 05/17/2017 CATRINA WOODS, ERNESTO Hernandez Ot 553.3 DIAPHRAGMATIC HERNIA 05/17/2017 CATRINA WOODS, ERNESTO Hernandez Ot 429.3 CARDIOMEGALY 05/17/2017 CATRINA WOODS, ERNESTO S Ot 530.81 ESOPHAGEAL REFLUX 05/17/2017 CATRINA WOODS, ERNESTO S Ot V72.63 PRE-PROCEDURAL LABORATORY EXAMINATION 05/17/2017 ERNESTO FRITZ MD S Ot V72.81 [id number] CARDIOVASCULAR 05/17/2017 ERNESTO FRITZ MD S Ot V72.83 EXAM PRE-OPERATIVE NEC 05/17/2017 ERNESTO FRITZ MD S Ot V74.8 SCREEN-BACTERIAL DIS NEC 05/17/2017 ERNESTO FRITZ MD S Ot V72.84 EXAM PRE-OPERATIVE NOS 05/17/2017 CATRINA WOODS, ERNESTO S Ot 530.81 ESOPHAGEAL REFLUX 05/17/2017 CATRINA WOODS, ERNESTO S Ot V45.89 POSTSURGICAL STATES NEC 05/17/2017 CATRINA WOODS, ERNESTO S Ot V72.84 EXAM PRE-OPERATIVE NOS 05/17/2017 CATRINA WOODS, ERNESTO S Ot 530.11 REFLUX ESOPHAGITIS 05/17/2017 ERNESTO FRITZ MD S Ot V45.89 POSTSURGICAL STATES NEC 05/17/2017 CATRINA WOODS, ERNESTO S Ot V72.84 EXAM PRE-OPERATIVE NOS 05/17/2017 DAPHNIE ODELL Ot 272.4 HYPERLIPIDEMIA NEC/NOS 05/17/2017 DAPHNIE ODELL Ot 397.0 TRICUSPID VALVE DISEASE 05/17/2017 DAPHNIE ODELL Ot 401.9 HYPERTENSION NOS 05/17/2017 DAPHNIE ODELL Ot 424.0 MITRAL VALVE DISORDER 05/17/2017 DAPHNIE ODELL Ot 786.09 RESPIRATORY ABNORM NEC 05/17/2017 MINH WOODS, TELLO Razo Ot 585.3 CHRONIC KIDNEY DISEASE, STAGE III (MODER 05/17/2017 DOMI MARTINEZ MD Ot E78.5 HYPERLIPIDEMIA, UNSPECIFIED 05/17/2017 DOMI MARTINEZ MD Ot I10 ESSENTIAL (PRIMARY) HYPERTENSION 05/17/2017 DOMI MARTINEZ MD Ot I63.9 CEREBRAL INFARCTION, UNSPECIFIED 05/17/2017 DOMI MARTINEZ MD Ot I73.9 PERIPHERAL VASCULAR DISEASE, UNSPECIFIED 05/17/2017 MINH WOODS, TELLO Razo Ot I12.9 HYPERTENSIVE CHRONIC KIDNEY DISEASE W ST 05/17/2017 MINH WOODS, TELLO L Ot N18.9 CHRONIC KIDNEY DISEASE, UNSPECIFIED 05/19/2017 DOMI MARTINEZ MD Ot E78.5 HYPERLIPIDEMIA, UNSPECIFIED 05/19/2017 DOMI MARTINEZ MD Ot F32.9 MAJOR DEPRESSIVE DISORDER, SINGLE EPISOD 05/19/2017 DOMI MARTINEZ MD Ot I10 ESSENTIAL (PRIMARY) HYPERTENSION 05/19/2017 DOMI MARTINEZ MD Ot I63.9 CEREBRAL INFARCTION, UNSPECIFIED 05/19/2017 DOMI MARTINEZ MD Ot I65.23 OCCLUSION AND STENOSIS OF BILATERAL SENA 05/19/2017 DOMI MARTINEZ MD Ot Z79.899 OTHER BRUSH WORKER (CURRENT) DRUG THERAPY 05/19/2017 DOMI MARTINEZ MD [...] OCCLUSION AND STENOSIS OF BILATERAL SENA 05/24/2017 DOMI MARTINEZ MD Ot Z79.899 OTHER BRUSH WORKER (CURRENT) DRUG THERAPY 05/24/2017 DOMI MARTINEZ MD [...] OCCLUSION AND STENOSIS OF BILATERAL SENA 06/08/2017 DOMI MARTINEZ MD Ot Z79.899 OTHER ALF (CURRENT) DRUG THERAPY 06/08/2017 DOMI MARTINEZ MD Ot Z87.891 PERSONAL HISTORY OF NICOTINE DEPENDENCE 11/26/2017 ERIK MENDEZ MD, Ot D64.9 ANEMIA, UNSPECIFIED 11/26/2017 ERIK MENDEZ MD Ot F41.9 ANXIETY DISORDER, UNSPECIFIED 11/26/2017 ERIK MENDEZ MD, Ot I10 ESSENTIAL (PRIMARY) HYPERTENSION 11/26/2017 ERIK MENDEZ MD Ot M41.86 OTHER FORMS OF SCOLIOSIS, LUMBAR REGION 11/26/2017 ERIK MENDEZ MD Ot M54.5 LOW BACK PAIN 11/26/2017 ERIK MENDEZ MD Ot M54.6 PAIN IN THORACIC SPINE 11/26/2017 ERIK MENDEZ MD Ot Z79.02 BRUSH WORKER (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 OF ANTITHROMBOTI 11/26/2017 ERIK MENDEZ MD Ot Z79.82 ALF (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 OF ASPIRIN 11/26/2017 ERIK MENDEZ MD Ot Z80.3 FAMILY HISTORY OF MALIGNANT NEOPLASM OF 11/26/2017 ERIK MENDEZ MD Ot Z86.73 PRSNL HX OF TIA (TIA), AND CEREB INFRC W 11/26/2017 ERIK MENDEZ MD Ot Z87.19 PERSONAL HISTORY OF OTHER DISEASES OF TH 11/26/2017 ERIK MENDEZ MD, Ot Z87.891 PERSONAL HISTORY OF NICOTINE DEPENDENCE 11/26/2017 ERIK MENDEZ MD Ot Z90.89 ACQUIRED ABSENCE OF OTHER ORGANS 11/29/2017 ERIK MENDEZ MD, Ot D64.9 ANEMIA, UNSPECIFIED 11/29/2017 ERIK MENDEZ MD Ot F41.9 ANXIETY DISORDER, UNSPECIFIED 11/29/2017 ERIK MENDEZ MD Ot I10 ESSENTIAL (PRIMARY) HYPERTENSION 11/29/2017 ERIK MENDEZ MD Ot M41.86 OTHER FORMS OF SCOLIOSIS, LUMBAR REGION 11/29/2017 ERIK MENDEZ MD Ot M54.5 LOW BACK PAIN 11/29/2017 ERIK MENDEZ MD Ot M54.6 PAIN IN THORACIC SPINE 11/29/2017 ERIK MENDEZ MD Ot Z79.02 BRUSH WORKER (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 OF ANTITHROMBOTI 11/29/2017 ERIK MENDEZ MD Ot Z79.82 BRUSH WORKER (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 OF ASPIRIN 11/29/2017 ERIK MENDEZ MD Ot Z80.3 FAMILY HISTORY OF MALIGNANT NEOPLASM OF 11/29/2017 ERIK MENDEZ MD Ot Z86.73 PRSNL HX OF TIA (TIA), AND CEREB INFRC W 11/29/2017 ERIK MENDEZ MD Ot Z87.19 PERSONAL HISTORY OF OTHER DISEASES OF TH 11/29/2017 ERIK MENDEZ MD Ot Z87.891 PERSONAL HISTORY OF NICOTINE DEPENDENCE 11/29/2017 ERIK MENDEZ MD Ot Z90.89 ACQUIRED ABSENCE OF OTHER ORGANS 12/02/2017 ERIK MENDEZ MD Ot D64.9 ANEMIA, UNSPECIFIED 12/02/2017 ERIK MENDEZ MD Ot F41.9 ANXIETY DISORDER, UNSPECIFIED 12/02/2017 ERIK MENDEZ MD Ot I10 ESSENTIAL (PRIMARY) HYPERTENSION 12/02/2017 ERIK MENDEZ MD Ot M41.86 OTHER FORMS OF SCOLIOSIS, LUMBAR REGION 12/02/2017 ERIK MENDEZ MD Ot M54.5 LOW BACK PAIN 12/02/2017 ERIK MENDEZ MD Ot M54.6 PAIN IN THORACIC SPINE 12/02/2017 ERIK MENDEZ MD Ot Z79.02 BRUSH WORKER (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 OF ANTITHROMBOTI 12/02/2017 ERIK MENDEZ MD Ot Z79.82 ALF (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 OF ASPIRIN 12/02/2017 ERIK MENDEZ MD Ot Z80.3 FAMILY HISTORY OF MALIGNANT NEOPLASM OF 12/02/2017 ERIK MENDEZ MD Ot Z86.73 PRSNL HX OF TIA (TIA), AND CEREB INFRC W 12/02/2017 ERIK MENDEZ MD Ot Z87.19 PERSONAL HISTORY OF OTHER DISEASES OF TH 12/02/2017 ERIK MENDEZ MD Ot Z87.891 PERSONAL HISTORY OF NICOTINE DEPENDENCE 12/02/2017 ERIK MENDEZ MD Ot Z90.89 ACQUIRED ABSENCE OF OTHER ORGANS 12/16/2017 EDILMA BROWNING TOMATO PASTE MAKER Ot M54.5 LOW BACK PAIN 12/16/2017 EDILMA BROWNING TOMATO PASTE MAKER Ot R26.89 OTHER ABNORMALITIES OF GAIT AND MOBILITY 12/18/2017 EDILMA BROWNING TOMATO PASTE MAKER Ot M54.5 LOW BACK PAIN 12/18/2017 EDILMA BROWNING TOMATO PASTE MAKER Ot R26.89 OTHER ABNORMALITIES OF GAIT AND MOBILITY 12/19/2017 EDILMA BROWNING TOMATO PASTE MAKER Ot M54.5 LOW BACK PAIN 12/19/2017 EDILMA BROWNING TOMATO PASTE MAKER Ot R26.89 OTHER ABNORMALITIES OF GAIT AND MOBILITY 12/21/2017 EDILMA BROWNING TOMATO PASTE MAKER Ot M54.5 LOW BACK PAIN 12/21/2017 EDILMA BROWNING TOMATO PASTE MAKER Ot R26.89 OTHER ABNORMALITIES OF GAIT AND MOBILITY 12/23/2017 EDILMA BROWNING TOMATO PASTE MAKER Ot M54.5 LOW BACK PAIN 12/23/2017 EDILMA BROWNING TOMATO PASTE MAKER Ot R26.89 OTHER ABNORMALITIES OF GAIT AND MOBILITY 01/19/2018 EDILMA BROWNING TOMATO PASTE MAKER Ot M54.5 LOW BACK PAIN 01/19/2018 EDILMA BROWNING TOMATO PASTE MAKER Ot R26.89 OTHER ABNORMALITIES OF GAIT AND MOBILITY 01/24/2018 KANDY OLIVEIRA MD Ot F41.9 ANXIETY DISORDER, UNSPECIFIED 01/24/2018 KANDY OLIVEIRA MD Ot I10 ESSENTIAL (PRIMARY) HYPERTENSION 01/24/2018 KANDY OLIVEIRA MD Ot R19.7 DIARRHEA, UNSPECIFIED 01/24/2018 KANDY OLIVEIRA MD Ot Z79.01 ALF (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 OF ANTICOAGULANT 01/24/2018 KANDY OLIVEIRA MD Ot Z79.02 ALF (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 OF ANTITHROMBOTI 01/24/2018 KANDY OLIVEIRA MD Ot Z79.82 ALF (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 OF ASPIRIN 01/24/2018 KANDY OLIVEIRA MD Ot Z80.3 FAMILY HISTORY OF MALIGNANT NEOPLASM OF 01/24/2018 KANDY OLIVEIRA MD Ot Z86.73 PRSNL HX OF TIA (TIA), AND CEREB INFRC W 01/24/2018 KANDY OLIVEIRA MD Ot Z87.19 PERSONAL HISTORY OF OTHER DISEASES OF TH 01/24/2018 KANDY OLIVEIRA MD, Ot Z87.891 PERSONAL HISTORY OF NICOTINE DEPENDENCE 01/24/2018 KANDY OLIVEIRA MD Ot Z90.49 ACQUIRED ABSENCE OF OTHER SPECIFIED PART 01/24/2018 KANDY OLIVEIRA MD Ot Z90.89 ACQUIRED ABSENCE OF OTHER ORGANS 01/27/2018 KANDY OLIVEIRA MD Ot F41.9 ANXIETY DISORDER, UNSPECIFIED 01/27/2018 KANDY OLIVEIRA MD Ot I10 ESSENTIAL (PRIMARY) HYPERTENSION 01/27/2018 KANDY OLIVEIRA MD Ot R19.7 DIARRHEA, UNSPECIFIED 01/27/2018 KANDY OLIVEIRA MD Ot Z79.01 BRUSH WORKER (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 OF ANTICOAGULANT 01/27/2018 KANDY OLIVEIRA MD Ot Z79.02 ALF (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 OF ANTITHROMBOTI 01/27/2018 KANDY OLIVEIRA MD Ot Z79.82 ALF (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 OF ASPIRIN 01/27/2018 KANDY OLIVEIRA MD Ot Z80.3 FAMILY HISTORY OF MALIGNANT NEOPLASM OF 01/27/2018 KANDY OLIVEIRA MD, Ot Z86.73 PRSNL HX OF TIA (TIA), AND CEREB INFRC W 01/27/2018 KANDY OLIVEIRA MD Ot Z87.19 PERSONAL HISTORY OF OTHER DISEASES OF TH 01/27/2018 KANDY OLIVEIRA MD, Ot Z87.891 PERSONAL HISTORY OF NICOTINE DEPENDENCE 01/27/2018 KANDY OLIVEIRA MD Ot Z90.49 ACQUIRED ABSENCE OF OTHER SPECIFIED PART 01/27/2018 KADNY OLIVEIRA MD Ot Z90.89 ACQUIRED ABSENCE OF OTHER ORGANS 02/08/2018 REJI WOODS, SALAS Katz Ot R19.7 DIARRHEA, UNSPECIFIED 02/28/2018 ERNESTO FIRTZ MD Ot 429.3 CARDIOMEGALY 02/28/2018 ERNESTO FRITZ MD Ot 530.81 ESOPHAGEAL REFLUX 02/28/2018 ERNESTO FRITZ MD Ot V72.63 PRE-PROCEDURAL LABORATORY EXAMINATION 02/28/2018 ERNESTO FRITZ MD Ot V72.81 [id number] CARDIOVASCULAR 02/28/2018 ERNSETO FRITZ MD Ot V72.83 EXAM PRE-OPERATIVE NEC 02/28/2018 ERNESTO FRITZ MD Ot V74.8 SCREEN-BACTERIAL DIS NEC 02/28/2018 ERNESTO FRITZ MD, Ot V72.84 EXAM PRE-OPERATIVE NOS 02/28/2018 CATRINA WOODS, ERNESTO S Ot 530.81 ESOPHAGEAL REFLUX 02/28/2018 ERNESTO FRITZ MD S Ot V45.89 POSTSURGICAL STATES NEC 02/28/2018 ERNESTO FRITZ MD S Ot V72.84 EXAM PRE-OPERATIVE NOS 02/28/2018 CATRINA WOODS, ERNESTO S Ot 530.11 REFLUX ESOPHAGITIS 02/28/2018 ERNESTO FRITZ MD S Ot V45.89 POSTSURGICAL STATES NEC 02/28/2018 CATRINA WOODS, ERNESTO S Ot V72.84 EXAM PRE-OPERATIVE NOS 02/28/2018 LON CULVER, DAPHNIE K Ot 272.4 HYPERLIPIDEMIA NEC/NOS 02/28/2018 LON CULVER DAPHNIE K Ot 397.0 TRICUSPID VALVE DISEASE 02/28/2018 DAPHNIE ODELL K Ot 401.9 HYPERTENSION NOS 02/28/2018 DAPHNIE ODELL K Ot 424.0 MITRAL VALVE DISORDER 02/28/2018 LON CULVER DAPHNIE K Ot 786.09 RESPIRATORY ABNORM NEC 02/28/2018 MINH WOODS, TELLO Razo Ot 585.3 CHRONIC KIDNEY DISEASE, STAGE III (MODER 02/28/2018 DOMI MARTINEZ MD Ot E78.5 HYPERLIPIDEMIA, UNSPECIFIED 02/28/2018 DOMI MARTINEZ MD Ot I10 ESSENTIAL (PRIMARY) HYPERTENSION 02/28/2018 DOMI MARTINEZ MD Ot I63.9 CEREBRAL INFARCTION, UNSPECIFIED 02/28/2018 DOMI MARTINEZ MD Ot I73.9 PERIPHERAL VASCULAR DISEASE, UNSPECIFIED 02/28/2018 MINH WOODS, TELLO Razo Ot I12.9 HYPERTENSIVE CHRONIC KIDNEY DISEASE W ST 02/28/2018 MINH WOODS, TELLO Razo Ot N18.9 CHRONIC KIDNEY DISEASE, UNSPECIFIED 02/28/2018 DOMI MARTINEZ MD Ot E78.5 HYPERLIPIDEMIA, UNSPECIFIED 02/28/2018 DOMI MARTINEZ MD Ot F32.9 MAJOR DEPRESSIVE DISORDER, SINGLE EPISOD 02/28/2018 DOMI MARTINEZ MD Ot I10 ESSENTIAL (PRIMARY) HYPERTENSION 02/28/2018 DOMI MARTINEZ MD Ot I63.9 CEREBRAL INFARCTION, UNSPECIFIED 02/28/2018 DOMI MARTINEZ MD Ot I65.23 OCCLUSION AND STENOSIS OF BILATERAL SENA 02/28/2018 MICHELLE WOODS, DOMI Munoz Ot Z79.899 OTHER ALF (CURRENT) DRUG THERAPY 02/28/2018 DOMI MARTINEZ MD Ot Z87.891 PERSONAL HISTORY OF NICOTINE DEPENDENCE 02/28/2018 REJI WOODS, SALAS Katz Ot R19.7 DIARRHEA, UNSPECIFIED 03/01/2018 NIKOS MAZARIEGOS HARVEST MANAGER Ot R19.7 DIARRHEA, UNSPECIFIED 03/01/2018 NIKOS MAZARIEGOS HARVEST MANAGER Ot R63.5 ABNORMAL WEIGHT GAIN 03/02/2018 NIKOS MAZARIEGOS HARVEST MANAGER Ot M41.86 OTHER FORMS OF SCOLIOSIS, LUMBAR REGION 03/02/2018 NIKOS MAZARIEGOS HARVEST MANAGER Ot M43.16 SPONDYLOLISTHESIS, LUMBAR REGION 03/02/2018 NIKOS MAZARIEGOS HARVEST MANAGER Ot M46.87 OTH INFLAMMATORY SPONDYLOPATHIES, LUMBOS 03/02/2018 NIKOS MAZARIEGOS HARVEST MANAGER Ot M48.07 SPINAL STENOSIS, LUMBOSACRAL REGION 03/02/2018 NIKOS MAZARIEGOS HARVEST MANAGER Ot M51.27 OTHER INTERVERTEBRAL DISC DISPLACEMENT, 03/02/2018 NIKOS MAZARIEGOS HARVEST MANAGER Ot M51.36 OTHER INTERVERTEBRAL DISC DEGENERATION, 03/02/2018 NIKOS MAZARIEGOS HARVEST MANAGER Ot R15.9 FULL INCONTINENCE OF FECES 03/10/2018 NIKOS MAZARIEGOS HARVEST MANAGER Ot M41.86 OTHER FORMS OF SCOLIOSIS, LUMBAR REGION 03/10/2018 NIKOS MAZARIEGOS HARVEST MANAGER Ot M43.16 SPONDYLOLISTHESIS, LUMBAR REGION 03/10/2018 NIKOS MAZARIEGOS HARVEST MANAGER Ot M46.87 OTH INFLAMMATORY SPONDYLOPATHIES, LUMBOS 03/10/2018 NIKOS MAZARIEGOS HARVEST MANAGER Ot M48.07 SPINAL STENOSIS, LUMBOSACRAL REGION 03/10/2018 NIKOS MAZARIEGOS HARVEST MANAGER Ot M51.27 OTHER INTERVERTEBRAL DISC DISPLACEMENT, 03/10/2018 NIKOS MAZARIEGOS HARVEST MANAGER Ot M51.36 OTHER INTERVERTEBRAL DISC DEGENERATION, 03/10/2018 NIKOS MAZARIEGOS HARVEST MANAGER Ot R15.9 FULL INCONTINENCE OF FECES 03/10/2018 NIKOS MAZARIEGOS HARVEST MANAGER Ot R19.7 DIARRHEA, UNSPECIFIED 03/10/2018 NIKOS MAZARIEGOS HARVEST MANAGER Ot R63.5 ABNORMAL WEIGHT GAIN Procedures Code Description Performed By Performed On 45.13 OTHER ENDOSCOPY OF SM INTEST 01/15/2009 99.10 INJECT/INFUSE THROMBOLYTIC AGENT 03/20/2014 [id number] INTRODUCE OTH THROMBOLYTIC IN PERIPH VEI 01/02/2017 [...] 89 mg/dL 35-160 VLDL 18 mg/dL 0-42 Complete blood count (CBC) with automated white blood cell (WBC) differential - 01/24/18 06:30 Blood leukocytes automated count (number/volume) 8.4 10*3/uL 4.3-11.0 Blood erythrocytes automated count (number/volume) 4.36 10*6/uL 4.35-5.85 Venous blood hemoglobin measurement (mass/volume) 11.7 g/dL 11.5-16.0 Blood hematocrit (volume fraction) 39 % 35-52 Automated erythrocyte mean corpuscular volume 90 [foz_us] 80-99 Automated erythrocyte mean corpuscular hemoglobin (mass per erythrocyte) 27 pg 25-34 Automated erythrocyte mean corpuscular hemoglobin concentration measurement ( mass/volume) 30 g/dL 32-36 Automated erythrocyte distribution width ratio 14.4 % 10.0-14.5 Automated blood platelet count (count/volume) 150 10*3/uL 130-400 Automated blood platelet mean volume measurement 10.5 [foz_us] 7.4-10.4 Automated blood neutrophils/100 leukocytes 81 % 42-75 Automated blood lymphocytes/100 leukocytes 8 % 12-44 Blood monocytes/100 leukocytes 10 % 0-12 Automated blood eosinophils/100 leukocytes 1 % 0-10 Automated blood basophils/100 leukocytes 0 % 0-10 Blood neutrophils automated count (number/volume) 6.9 10*3 1.8-7.8 Blood lymphocytes automated count (number/volume) 0.6 10*3 1.0-4.0 Blood monocytes automated count (number/volume) 0.8 10*3 0.0-1.0 Automated eosinophil count 0.1 10*3/uL 0.0-0.3 Automated blood basophil count (count/volume) 0.0 10*3/uL 0.0-0.1 PT panel in platelet poor plasma by coagulation assay - 01/24/18 06:30 Prothrombin time (PT) in platelet poor plasma by coagulation assay 13.0 s 12.2-14.7 INR in platelet poor plasma or blood by coagulation assay 1.0 0.8-1.4 Activated partial thromboplastin time (aPTT) in platelet poor plasma bycoagulation assay - 01/24/18 06:30 Activated partial thromboplastin time (aPTT) in platelet poor plasma bycoagulation assay 25 s 24-35 Comprehensive metabolic panel - 01/24/18 06:30 Serum or plasma sodium measurement (moles/volume) 141 mmol/L 135-145 Serum or plasma potassium measurement (moles/volume) 5.3 mmol/L 3.6-5.0 Serum or plasma chloride measurement (moles/volume) 110 mmol/L 98-107 Carbon dioxide 19 mmol/L 21-32 Serum or plasma anion gap determination (moles/volume) 12 mmol/L 5-14 Serum or plasma urea nitrogen measurement (mass/volume) 26 mg/dL 7-18 Serum or plasma creatinine measurement (mass/volume) 1.60 mg/dL 0.60-1.30 Serum or plasma urea nitrogen/creatinine mass ratio 16 NRG Serum or plasma creatinine measurement with calculation of estimated glomerular filtration rate 32 NRG Serum or plasma glucose measurement (mass/volume) 130 mg/dL 70-105 Serum or plasma calcium measurement (mass/volume) 10.0 mg/dL 8.5-10.1 Serum or plasma total bilirubin measurement (mass/volume) 0.6 mg/dL 0.1-1.0 Serum or plasma alkaline phosphatase measurement (enzymatic activity/volume) 140 U/L 40-136 Serum or plasma aspartate aminotransferase measurement (enzymatic activity/ volume) 20 U/L 5-34 Serum or plasma alanine aminotransferase measurement (enzymatic activity/volume ) 14 U/L 0-55 Serum or plasma protein measurement (mass/volume) 6.8 g/dL 6.4-8.2 Serum or plasma albumin measurement (mass/volume) 4.2 g/dL 3.2-4.5 CALCIUM CORRECTED 9.8 mg/dL 8.5-10.1 Magnesium - 01/24/18 06:30 Magnesium 2.1 mg/dL 1.8-2.4 Serum or plasma C reactive protein measurement (mass/volume) - 01/24/18 06:30 Serum or plasma C reactive protein measurement (mass/volume) 0.08 mg /dL 0.00-0.50 Complete urinalysis with reflex to culture - 01/24/18 07:13 Urine color determination YELLOW NRG Urine clarity determination CLEAR NRG Urine pH measurement by test strip 6 5-9 Specific gravity of urine by test strip 1.010 1.016- 1.022 Urine protein assay by test [...] urobilinogen measurement by automated test strip (mass/volume) NORMAL NORMAL Urine leukocyte esterase detection by dipstick 1+ NEGATIVE Automated urine sediment erythrocyte count by microscopy (number/high power field) NONE NRG Automated urine sediment leukocyte count by microscopy (number/high power field ) [HPF] NRG Bacteria detection in urine sediment by light microscopy NEGATIVE NRG Squamous epithelial cells detection in urine sediment by light microscopy NONE NRG Crystals detection in urine sediment by light microscopy NONE NRG Casts detection in urine sediment by light microscopy NONE NRG Mucus detection in urine sediment by light microscopy NEGATIVE NRG Complete urinalysis with reflex to culture NO NRG C DIFFICILE AG + TOXIN A/B. - 01/27/18 16:00 C DIFFICILE AG + TOXIN A/B. TNP NRG Stool occult blood screen - 01/27/18 16:00 Stool gastrointestinal hemoglobin detection POSITIVE NEGATIVE Stool bacteria identification by culture - 01/27/18 16:00 Stool bacteria identification by culture N2 NRG PARASITE COMPLETE EXAM STOOL - 01/27/18 16:00 OTP NEGATIVE RESULT PARASITES NOT FOUND NRG Encounters ACCT No. Visit Date/Time Discharge Status Pt. Type Provider Facility Loc./Unit Complaint [id number] 04/05/2018 08:26:00 04/05/2018 23:59:59 CLS Preadmit LON CULVER, DAPHNIE Barnett [facility] CARD CVA,CAROTID ARTERY STENOSIS [id number] 03/01/2018 09:37:00 03/01/2018 23:59:59 CLS Outpatient NIKOS MAZARIEGOS [facility] RAD LOW BACK PAIN, BOWEL INCONT [id number] 02/27/2018 10:00:00 02/27/2018 23:59:59 CLS Outpatient NIKOS MAZARIEGOS [facility] RAD DIARRHEA [id number] 01/27/2018 16:58:00 01/27/2018 23:59:59 CLS Outpatient SALAS MENDOZA MD [facility] LAB DIARRHEA [id number] 01/24/2018 06:05:00 01/24/2018 08:37:00 DIS Emergency ROXANNE WOODS, KANDY Munoz [facility] ER DIARRHEA [id number] 12/19/2017 14:14:00 01/19/2018 15:56:00 DIS Outpatient EDILMA BROWNING APRN [facility] REHAB LBP;BALANCE/GAIT ABNORMALITIES [id number] 12/14/2017 09:32:00 12/18/2017 00:01:00 DIS Outpatient EDILMA BROWNING APRN [facility] REHAB LBP;BALANCE/GAIT ABNORMALITIES [id number] 11/26/2017 08:39:00 11/26/2017 10:48:00 DIS Emergency VANESSA WOODS, ERIK Barnett [facility] ER SEVERE BACK PAIN X1 WEEK [id number] 05/18/2017 10:03:00 05/18/2017 23:59:59 CLS Outpatient DOMI MARTINEZ MD [facility] CATH CRYPTOGENIC STROBE [id number] 03/16/2017 08:00:00 03/16/2017 23:59:59 CLS Outpatient TELLO WILKINSON MD [facility] RAD HTN [id number] 01/02/2017 16:08:00 01/04/2017 14:15:00 DIS Inpatient WILLIS DO, SANDY [facility] ICU COMPLETE LEFT HEMIANOPSIA ,HEADACHE [id number] 09/05/2016 23:25:00 09/07/2016 15:45:00 DIS Inpatient WILLIS DO SANDY [facility] 4TH GENERALIZED WEAKNESS; ALTERED MENTAL STATUS; UTI [id number] 08/13/2016 10:34:00 08/13/2016 13:18:00 DIS Outpatient ANDIA BARTHOLOMEW MD [facility] ENDO WEIGHT LOSS/HX POLYPS [id number] 08/11/2016 05:49:00 08/11/2016 14:46:00 DIS Outpatient NADIA BARTHOLOMEW MD [facility] PREOP WEIGHT LOSS/HX POLYPS [id number] 06/25/2015 09:00:00 06/25/2015 23:59:59 CLS Outpatient DOMI MARTINEZ MD [facility] CARD CAD,CLAUDICATIONS, HTN HLP CVA [id number] 04/11/2014 14:55:00 04/25/2014 10:55:00 DIS Outpatient TELLO WILKINSON MD [facility] REHAB CVA [id number] 04/16/2014 14:19:00 04/16/2014 15:13:00 DIS Outpatient TELLO WILKINSON MD [facility] REHAB CVA [id number] 04/10/2014 07:45:00 04/10/2014 12:42:00 DIS Outpatient MICHELLE WOODS, DOMI Munoz [facility] CATH CVA,CAROTID STENOSIS,HTN ,HLP [id number] 03/22/2014 11:32:00 03/26/2014 11:45:00 DIS Inpatient TAWANA WOODS, JERICA Vogel [facility] IRF IRF-CVA [id number] 03/20/2014 14:40:00 03/22/2014 11:00:00 DIS Inpatient FRANCISCO WOODS, IWONA Mckinney [facility] ICU CVA RIGHT SIDED WEAKNESS [id number] 12/12/2013 08:09:00 12/12/2013 23:59:59 CLS Outpatient TELLO WILKINSON MD [facility] RAD CKD 3 [id number] 11/07/2013 10:45:00 11/07/2013 23:59:59 CLS Outpatient DAPHNIE ODELL [facility] CARD CAROTID ARTERY STENOSIS,HTN,HLP,DYSPNEA [id number] 07/19/2013 07:02:00 07/19/2013 23:59:59 CLS Outpatient ERNESTO FRITZ MD [facility] SDC GERD [id number] 07/11/2013 07:29:00 07/11/2013 23:59:59 CLS Outpatient ERNESTO FRITZ MD [facility] PREOP GERD [id number] 12/28/2012 08:03:00 12/28/2012 23:59:59 CLS Outpatient ERNESTO FRITZ MD [facility] SDC REFLUX [id number] 12/27/2012 07:12:00 12/27/2012 23:59:59 CLS Outpatient ERNESTO FRITZ MD [facility] PREOP REFLUX [id number] 10/26/2012 07:07:00 10/26/2012 11:35:00 DIS Outpatient ERNESTO FRITZ MD [facility] GERD [id number] 10/25/2012 07:22:00 10/25/2012 23:59:59 CLS Outpatient ERNESTO FRITZ MD [facility] PREOP GERD [id number] 09/13/2012 07:30:00 09/15/2012 17:27:00 DIS Outpatient ERNESTO FRITZ MD [facility] GASTROESOPHAGEAL REFLUX DISEASE [id number] 09/08/2012 12:15:00 09/08/2012 23:59:59 CLS Outpatient ERNESTO FRITZ MD [facility] PREOP GERD [id number] 08/31/2012 07:17:00 08/31/2012 23:59:59 CLS Outpatient ERNESTO FRITZ MD [facility] GERD [id number] 08/30/2012 07:17:00 08/30/2012 23:59:59 CLS Outpatient ERNESTO FRITZ MD [facility] PREOP GERD [id number] 04/29/2018 10:28:00 ACT Emergency ROBERT CHAVEZ MD [facility] ER STROKE LIKE SYMPTOMS [id number] 03/22/2014 15:43:00 Document Registration [id number] 03/22/2014 15:43:00 Document Registration [id number] 03/22/2014 15:43:00 Document Registration [id number] 03/22/2014 15:43:00 Document Registration [id number] 06/22/2012 08:16:00 Document Registration [id number] 06/21/2012 08:10:00 Document Registration [id number] 02/16/2012 13:08:00 Document Registration [id number] 12/29/2011 10:50:00 Document Registration [id number] 11/25/2011 11:45:00 Document Registration [id number] 12/18/2010 10:24:00 Document Registration [id number] 10/20/2010 13:35:00 Document Registration [id number] 09/28/2010 10:33:00 Document Registration [id number] 09/24/2010 13:48:00 Document Registration [id number] 06/18/2010 12:28:00 Document Registration [id number] 04/21/2010 00:00:00 Document Registration [id number] 04/14/2010 13:40:00 Document Registration [id number] 03/30/2010 13:42:00 Document Registration [id number] 03/27/2010 10:20:00 Document Registration [id number] 03/17/2010 19:50:00 Document Registration [id number] 01/14/2010 19:10:00 Document Registration [id number] 12/18/2009 10:20:00 Document Registration [id number] 12/16/2009 09:23:00 Document Registration [id number] 09/22/2009 10:14:00 Document Registration [id number] 09/11/2009 09:36:00 Document Registration [id number] 08/25/2009 09:20:00 Document Registration [id number] 07/30/2009 11:44:00 Document Registration [id number] 02/26/2009 11:04:00 Document Registration [id number] 01/22/2009 16:12:00 Document Registration [id number] 12/28/2008 16:48:00 Document Registration [id number] 10/16/2008 09:11:00 Document Registration [id number] 11/09/2017 14:35:31 11/09/2017 23:59:59 CLS Outpatient [id number] 12/02/2016 09:50:00 Document Registration [id number] 03/07/2017 14:11:00 03/07/2017 23:59:00 DIS Outpatient TELLO WILKINSON [id number] 12/02/2016 09:50:00 12/02/2016 23:59:00 DIS Outpatient TELLO WILKINSON [id number] 11/30/2016 17:50:00 11/30/2016 23:59:00 DIS Outpatient TELLO WILKINSON [id number] 07/21/2016 13:51:00 07/21/2016 23:59:00 DIS Outpatient TELLO WILKINSON [id number] 07/01/2016 16:30:00 07/01/2016 23:59:00 DIS Outpatient GEORGETTE WILKINSONHEL [id number] 02/05/2016 16:48:00 02/05/2016 23:59:00 DIS Outpatient TELLO WILKINSON [id number] 04/27/2014 04:34:10 ACT Document Registration [id number] 12/03/2016 10:16:00 Document Registration [id number] 12/02/2016 12:18:00 Document Registration [id number] 04/14/2018 16:00:00 04/14/2018 23:59:59 [facility] Outpatient [facility] [id number] 12/02/2016 11:16:00 Document Registration
[2018-04-29 10:58] LABS: BASOPHILS % (AUTO) 0 % (0-10); EOSINOPHILS % (AUTO) 0 % (0-10); HEMATOCRIT 41 % (35-52); HEMOGLOBIN 12.4 G/DL (11.5-16.0); LYMPHOCYTES # (AUTO) 1.7 X 10^3 (1.0-4.0); LYMPHOCYTES % (AUTO) 19 % (12-44); MEAN CORPUSCULAR HEMOGLOBIN 26 PG (25-34); MEAN CORPUSCULAR HGB CONC 30 G/DL (32-36); MEAN CORPUSCULAR VOLUME 85 FL (80-99); MEAN PLATELET VOLUME 10.6 FL (7.4-10.4); MONOCYTES # (AUTO) 0.5 X 10^3 (0.0-1.0); MONOCYTES % (AUTO) 6 % (0-12); NEUTROPHILS # (AUTO) 6.6 X 10^3 (1.8-7.8); NEUTROPHILS % (AUTO) 75 % (42-75); PLATELET COUNT 198 10^3/uL (130-400); RED CELL DISTRIBUTION WIDTH 15.2 % (10.0-14.5); WHITE BLOOD COUNT 8.9 10^3/uL (4.3-11.0)
--- NOTE | 2018-04-29 10:59 | ED Neurological Problem ---
General Stated Complaint: STROKE LIKE SYMPTOMS Source: patient Exam Limitations: no limitations History of Present Illness Date Seen by Provider: Apr 29, 2018 Time Seen by Provider: 10:54 Initial Comments This 73-year-old white female presents with stroke. Patient's symptoms began at 4 o'clock yesterday afternoon (greater than 24 hours ago). Patient has had at least 6 previous strokes which have until now left her only with a residual right-sided facial weakness. Patient has been unable to move her left arm and leg following her stroke yesterday. She was found by her daughter this morning and brought to the emergency department. The patient is taking Eliquis. She is under the care of Dr. Aponte. Allergies and Home Medications Allergies Coded Allergies: No Known Drug Allergies (Verified , 09/08/12) Home Medications Amlodipine Besylate 5 Mg Tablet, 5 MG PO HS, (Reported) Aspirin 81 Mg Tablet.dr, 81 MG PO DAILY Prescribed by: ERIK MENDEZ on 01/04/17 1125 Atorvastatin Calcium 20 Mg Tablet, 20 MG PO HS, (Reported) Carvedilol 25 Mg Tablet, 25 MG PO BID, (Reported) Clopidogrel Bisulfate 75 Mg Tablet, 75 MG PO DAILY, (Reported) Montelukast Sodium 10 Mg Tablet, 10 MG PO HS, (Reported) Pantoprazole Sodium 40 Mg Tablet.dr, 40 MG PO DAILY, (Reported) Pentoxifylline 400 Mg Tablet.er, 400 MG PO DAILY, (Reported) Tramadol HCl 50 Mg Tablet, 50 MG PO 4 times a day Prescribed by: ERIK MENDEZ on 11/26/17 1027 Patient Home Medication List Home Medication List Reviewed: Yes Review of Systems Review of Systems Constitutional: No malaise, No weakness Eyes: Denies Blindness, Denies Blurred Vision Ears, Nose, Mouth, Throat: denies ear pain Respiratory: No cough Cardiovascular: No chest pain Gastrointestinal: No abdominal pain, No diarrhea, No nausea, No vomiting Genitourinary: no symptoms reported : No Musculoskeletal: No back pain Skin: No change in color, No rash Psychiatric/Neurological: Headache, Unable to Move Lower Ext (left.), Unable to Move Upper Ext (left ) Endocrine: No Symptoms Reported Hematologic/Lymphatic: No Symptoms Reported Past Zfjqpkj-Jxsyvp-Dpuawn Hx Past Med/Social Hx: Reviewed Nursing Past Med/Soc Hx Patient Social History Type Used: Cigarettes Former Smoker, Quit: Dec 19, 1986 2nd Hand Smoke Exposure: No Recent Hopitalizations: No Immunizations Up To Date Tetanus Booster (TDap): Unknown PED Vaccines UTD: Yes Date of Pneumonia Vaccine: Nov 19, 2013 Date of Influenza Vaccine: Nov 19, 2013 Seasonal Allergies Seasonal Allergies: Yes Past Medical History Surgeries: Yes (jaw bone) Abdominal, Appendectomy, Eye Surgery, Tonsillectomy Respiratory: No Currently Using CPAP: No Currently Using BIPAP: No Cardiac: Yes (small PFO) Heart Murmur, Hypertension, Valvular Heart Disease Neurological: Yes Stroke, TIA 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 Disorders: No Female 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 Disorders: Denies FORESTRY PATROLMAN History: Menopausal Sexually Transmitted Disease: No HIV/AIDS: No Genitourinary: Yes Gastrointestinal: Yes Hiatal Hernia Musculoskeletal: Yes Arthritis Endocrine: No HEENT: Yes Cataract, Glaucoma Hearing Impairment: Denies Cancer: No Did You Recieve Any Treatments: No Psychosocial: Yes Anxiety Integumentary: No Blood Disorders: Yes (Anemia) Adverse Reaction/Blood Tranf: No Family Medical History FH: CVA (cerebrovascular accident) G8 BROTHER G8 SISTER FH: breast cancer 19 MOTHER FH: cancer 19 FATHER Hypertension 19 MOTHER Physical Exam Vital Signs Vital Signs - First Documented 04/29/18 10:27 Temp 97.9 Pulse 82 Resp 19 B/P (MAP) 143/84 (103) Pulse Ox 98 O2 Delivery Room Air Capillary Refill : Height, Weight, BMI Height: 5'4.00" Weight: 160lbs. 0.0oz. 72.138294qg; 24.0 BMI Method:Stated General Appearance: WD/WN, mild distress HEENT: normal ENT inspection Neck: non-tender, supple Respiratory: lungs clear Cardiovascular: regular rate, rhythm Gastrointestinal: normal bowel sounds, non tender, soft Crainal Nerves: normal hearing, normal speech, PERRL Motor/Sensory: weak motor strength LUE, weak motor strength LLE Skin: normal color, warm/dry Stroke Onset of Symptoms Date of Onset of Symptoms: Apr 28, 2018 Time of Symptom Onset: 16:00 Onset of Symptoms: Yes NIH Stroke Scale Assessment Select: Initial Level of Consciousness: 0=Alert (0), Level of Consciousness- Questions: 0=Answers both month/age (0), LOC Commands: 0=Performs both tasks (0) , Gaze: Normal (0), Visual Wright: 0=No visual loss (0), Facial Movement ( Facial Paresis): 0=Normal symmetrical mnt (0), Motor Function-Arms Right: 0=No drift (0), Motor Function-Arms Left: 2=Some effort/gravity (2), Motor Function- Legs Right: 0=No drift (0), Motor Function-Legs Left: 2=Some effort/gravity (2) , Limb Ataxia: 0=Absent (0), Sensory: 1=Mild to Moderate loss (1), Best Language : 0=No aphasia (0), Dysarthria: 0=Normal (0), Extinction & Inattention: 0=No abnormality (0), Total: 5 Progress/Results/Core Measures Results/Orders Lab Results Laboratory Tests Test 04/29/18 10:40 Range/Units White Blood Count 8.9 4.3-11.0 10^3/uL Red Blood Count 4.80 4.35-5.85 10^6/uL Hemoglobin 12.4 11.5-16.0 G/DL Hematocrit 41 35-52 % Mean Corpuscular Volume 85 80-99 FL Mean Corpuscular Hemoglobin 26 25-34 PG Mean Corpuscular Hemoglobin Concent 30 L 32-36 G/DL Red Cell Distribution Width 15.2 H 10.0-14.5 % Platelet Count 198 130-400 10^3/uL Mean Platelet Volume 10.6 H 7.4-10.4 FL Neutrophils (%) (Auto) 75 42-75 % Lymphocytes (%) (Auto) 19 12-44 % Monocytes (%) (Auto) 6 0-12 % Eosinophils (%) (Auto) 0 0-10 % Basophils (%) (Auto) 0 0-10 % Neutrophils # (Auto) 6.6 1.8-7.8 X 10^3 Lymphocytes # (Auto) 1.7 1.0-4.0 X 10^3 Monocytes # (Auto) 0.5 0.0-1.0 X 10^3 Eosinophils # (Auto) 0.0 0.0-0.3 10^3/uL Basophils # (Auto) 0.0 0.0-0.1 10^3/uL Sodium Level 141 135-145 MMOL/L Potassium Level 5.1 H 3.6-5.0 MMOL/L Chloride Level 109 H 98-107 MMOL/L Carbon Dioxide Level 19 L 21-32 MMOL/L Anion Gap 13 5-14 MMOL/L Blood Urea Nitrogen 18 7-18 MG/DL Creatinine 1.62 H 0.60-1.30 MG/DL Estimat Glomerular Filtration Rate 31 BUN/Creatinine Ratio 11 Glucose Level 140 H 70-105 MG/DL Calcium Level 10.3 H 8.5-10.1 MG/DL Corrected Calcium 10.0 8.5-10.1 MG/DL Total Bilirubin 0.8 0.1-1.0 MG/DL Aspartate Amino Transf (AST/SGOT) 29 5-34 U/L Alanine Aminotransferase (ALT/SGPT) 18 0-55 U/L Alkaline Phosphatase 172 H 40-136 U/L Troponin I 0.031 <0.028 NG/ML Total Protein 7.4 6.4-8.2 GM/DL Albumin 4.4 3.2-4.5 GM/DL My Orders Orders - SCOTT, ROBERT Hernandez MD Cbc With Automated Diff (04/29/18 10:52) Protime With Inr (04/29/18 10:52) Partial Thromboplastin Time (04/29/18 10:52) Comprehensive Metabolic Panel (04/29/18 10:52) Fibrin Degradation Products (04/29/18 10:52) Troponin I (04/29/18 10:52) Ua Culture If Indicated (04/29/18 10:52) Chest 1 View, Ap/Pa Only (04/29/18 10:52) Ekg Tracing (04/29/18 10:52) Nothing By Mouth (04/29/18 Dinner) Accucheck Stat ONCE (04/29/18 10:52) Saline Lock/Iv-Start (04/29/18 10:52) Saline Lock/Iv-Start (04/29/18 10:52) Vital Signs Stroke Patient Q15M (04/29/18 10:52) Ct Head Wo-R/O Stroke (04/29/18 10:52) O2 (04/29/18 10:52) Intake & Output 06,14,22 (04/29/18 10:52) Monitor-Rhythm Ecg Trace Only (04/29/18 10:52) Dysphagia Screening Tool (04/29/18 10:52) Post Thrombolytic Adminstratio (04/29/18 10:52) Lipid Panel (04/30/18 06:00) Vital Signs/I&O 04/29/18 10:27 Temp 97.9 Pulse 82 Resp 19 B/P (MAP) 143/84 (103) Pulse Ox 98 O2 Delivery Room Air Progress Progress Note : Time: 11:[address] of the brain demonstrated evidence of an old left sided stroke and a new right sided cerebral stroke. Chest x-ray demonstrated cardiomegaly. Patient was able to swallow without difficulty. Don't consultation was undertaken with Drs. You and Fay. Patient was admitted to a telemetry bed. Orders were written and patient was transferred to the floor. Departure Communication (Admissions) Time/Spoke to Admitting Phy: 11:50 Dr. You Time/Spoke to Consulting Phy: 11:50 Dr. Aponte Impression Primary Impression: Cerebrovascular accident due to cerebral artery occlusion Disposition: ADMITTED INPATIENT Condition: Unchanged Admissions Decision to Admit Reason: Admit from ER (General) Decision to Admit/Date: Apr 29, 2018 Time/Decision to Admit Time: 12:01 Departure-Patient Inst. Referrals: SALAS MENDOZA MD (PCP/Family) Primary Care Physician ROBERT CHAVEZ MD Apr 29, 2018 10:59
[2018-04-29 11:10] LABS: ALBUMIN 4.4 GM/DL (3.2-4.5); BILIRUBIN,TOTAL 0.8 MG/DL (0.1-1.0); CALCIUM 10.3 MG/DL (8.5-10.1); CREATININE SERUM 1.62 MG/DL (0.60-1.30); POTASSIUM 5.1 MMOL/L (3.6-5.0); TOTAL PROTEIN 7.4 GM/DL (6.4-8.2)
--- NOTE | 2018-04-29 11:30 | Diagnostic Imaging Report ---
INDICATION: Left-sided weakness. TIME OF EXAM: 11:15 a.m. Comparison is made with prior study from 01/04/2017. The heart is enlarged but stable. Lungs are clear. Right hemidiaphragm is mildly elevated. No infiltrate or failure is seen. No effusion or pneumothorax is identified. IMPRESSION: Cardiomegaly. No acute cardiopulmonary process is detected. Dictated by: Dictated on workstation # [id number]
--- NOTE | 2018-04-29 11:46 | NUR ---
Per Dr. Carmona, pt was given the following home meds at this time: Gabapentin Pantoprazole Carvedilol Pentoxifylli Bupropion Amlodipine Mag Oxide
--- NOTE | 2018-04-29 11:49 | Diagnostic Imaging Report ---
PROCEDURE: CT head wo r/o stroke. TECHNIQUE: Multiple contiguous axial images were obtained through the brain without the use of intravenous contrast. INDICATION: Left-sided weakness. Study correlated with head CT 01/02/2017 as well as compared with MRI brain 01/03/2017. FINDINGS: Old left posterior parietal infarct is chronic. There have been expected interval evolutionary changes of previous posterior parieto-occipital infarct. There is some abnormal hypodensity on a post ischemic basis in the right basal ganglia anteriorly and in the right frontal lobe above that level parasagittal. This is presumed on an ischemic basis; however, its acuity is unclear. It is new from the prior but could be nonacute. Findings described are best seen on axial images 20 through 26. Consider MRI as further evaluation. No other potential recent ischemic insult or other changes are found. There is no hemorrhage, shift, or herniation. IMPRESSION: 1. Chronic old cortical infarct on the left, expected interval evolutionary changes of a right posterior cortical infarct noted. 2. New regional areas of hypodensity of uncertain acuity anteromedial upper right frontal lobe and anterosuperior right basal ganglia. This is more acuity-indeterminate and may be a recent ischemic insult. Short-term follow-up versus correlative MRI may provide additional utility. 3. No hemorrhage, shift, or herniation. [facility]47 a.m[facility] by [email or web address] Dictated by: Dictated on workstation # [id number]
[2018-04-29 12:20] LABS: BILIRUBIN,URINE NEGATIVE (NEGATIVE); CLARITY,URINE CLEAR; COLOR,URINE YELLOW; GLUCOSE, URINE (UA) NEGATIVE (NEGATIVE); KETONES,URINE NEGATIVE (NEGATIVE); LEUKOCYTE ESTERASE ,URINE NEGATIVE (NEGATIVE); NITRITE,URINE NEGATIVE (NEGATIVE); PH,URINE 8 (5-9); PROTEIN,URINE 2+ (NEGATIVE); UROBILINOGEN,URINE NORMAL (NORMAL)
[2018-04-29 12:22] LABS: FIBRIN DEGRADATION PRODUCTS 0.78 UG/ML (0.00-0.49); INR 1.2 (0.8-1.4); PROTHROMBIN TIME PATIENT 15.4 SEC (12.2-14.7)
[2018-04-29 12:28] LABS: BACTERIA,URINE NEGATIVE /HPF; RBC,URINE RARE /HPF; SQUAMOUS EPITHELIAL CELL,UR RARE /HPF
[2018-04-29] MEDS ORDERED: LATA2.5D5 OU (12:50)
[2018-04-29] MEDS ORDERED: GABA-488 PO (12:50)
[2018-04-29 13:15] VITALS: BP 147/79
--- NOTE | 2018-04-29 13:30 | NUR ---
DANIELA WORLEY admitted to room 413-1, with an admitting diagnosis of CVA, on 04/29/18 from ED via BED/CART, accompanied by FAMILY AND STAFF. DANIELA WORLEY introduced to surroundings, call light, bed controls, phone, TV, temperature control, lights, meal times, smoking policy, visitor policy, side rail policy, bathrooms and showers. Patient Rights given to patient in the handbook. DANIELA WORLEY verbalizes understanding that [facility] is not responsible for the loss or damage to any personal effects or valuables that are kept in the patients possession during their hospitalization.
[2018-04-29] MEDS ORDERED: CALCIUM CARBONATE 500 MG (TUMS) TAB.CHEW PO PRN (14:15)
[2018-04-29] MEDS ORDERED: DOCUSATE SODIUM 100 MG (COLACE) CAP PO PRN (14:15)
[2018-04-29] MEDS ORDERED: MELATONIN 3 MG TABLET PO PRN (14:15)
[2018-04-29] MEDS ORDERED: ALPRAZolam 0.25 MG (XANAX) TAB PO PRN (14:15)
[2018-04-29] MEDS ORDERED: LOPERAMIDE 2 MG (IMODIUM) CAP PO PRN (14:15)
[2018-04-29] MEDS ORDERED: BACLOFEN 10 MG (LIORESAL) TAB PO PRN (14:15)
[2018-04-29] MEDS ORDERED: POLYETHYLENE GLYCOL 17 GM (MIRALAX) PACK PO PRN (14:15)
[2018-04-29] MEDS ORDERED: diphenhydrAMINE 25 MG TAB (BENADRYL) PO PRN (14:15)
[2018-04-29] MEDS ORDERED: ONDANSETRON 4 MG/2 ML (SDV) Z0FRAN IVP PRN (14:15)
[2018-04-29] MEDS ORDERED: ONDANSETRON 4 MG (ZOFRAN) ORAL DISSOLVE TAB PO PRN (14:15)
[2018-04-29] MEDS: ACETAMINOPHEN 500 MG TAB (TYLENOL) PO PRN (14:31)
--- NOTE | 2018-04-29 15:34 | History & Physical-Hospitalist ---
History of Present Illness HPI/Chief Complaint CC: Stroke with left sided weakness HPI: This is a 73yoWF former clinic patient of Dr Kaplan and just recently changed to Dr Weaver at [facility] (but since she was admitted to my service and already saw that patient she will remain on my service instead of moving to [facility] ) who presented to the ER nearly 20 hours after sustaining a significant CVA w/ left sided weakness. She was found by her family in her bed and was brought to the ER via EMS. She has had multiple strokes in the past and REVEAL device placed by Dr Aponte had revealed a rare occurrence of AF so she was placed on Eliquis but when she presented to the ER she was too far out to receive tPA and has sustained a life changing residual deficit on her left side. She previously had right side facial weakness from her prior CVA's. Patient has had multiple tests to evaluate for CVA source in the past and now will be admitted and maintained on anticoagulation and add ASA to prevent further strokes. Pt having muscle spasms and pain so pain meds and Zanaflex and Baclofen have all been added to her MAR to use prn. Pt has had IRF stay before so we will put consult in for IRF to move on Tuesday. Source: patient, family Exam Limitations: no limitations Date Seen 04/29/18 Time Seen by a Provider: 15:30 Attending Physician Lindsay Willis DO PCP [facility] Referring Physician Date of Admission Apr 29, 2018 at 11:55 Home Medications & Allergies Home Medications Reviewed patient Home Medication Reconciliation performed by pharmacy medication reconciliations laboratory mechanical technician and/or nursing. Patients Allergies have been reviewed. Allergies Allergies Coded Allergies No Known Drug Allergies (Verified09/08/12) Past Jtnnixp-Ssrzkv-Ruakff Hx Past Med/Social Hx: Reviewed Nursing Past Med/Soc Hx, Reviewed and Corrections made Patient Social History Marrital Status: single Employed/Student: retired Smoking Status: Former Smoker Former Smoker, Quit: Dec 19, 1986 Type Used: Cigarettes 2nd Hand Smoke Exposure: No Recent Foreign Travel: No Contact w/other who traveled: No Recent Hopitalizations: No Recent Infectious Disease Expo: No Immunizations Up To Date Tetanus Booster (TDap): Unknown Pediatric: Yes Date of Pneumonia Vaccine: Nov 19, 2013 Date of Influenza Vaccine: Nov 19, 2013 Seasonal Allergies Seasonal Allergies: Yes Past Medical History Surgeries: Abdominal, Appendectomy, Eye Surgery, Tonsillectomy Currently Using CPAP: No Currently Using BIPAP: No Cardiac: Heart Murmur, Hypertension, Valvular Heart Disease Neurological: Stroke, TIA 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: No Sexually Transmitted Disease: No HIV/AIDS: No Female 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 Disorders: Denies Menopausal Gastrointestinal: Hiatal Hernia Musculoskeletal: Arthritis HEENT: Cataract, Glaucoma Hearing Impairment: Denies Did You Recieve Any Treatments: No Psychosocial: Anxiety History of Blood Disorders: Yes (Anemia) Adverse Reaction to Blood Quevedo: No Family History FH: CVA (cerebrovascular accident) G8 BROTHER G8 SISTER FH: breast cancer 19 MOTHER FH: cancer 19 FATHER Hypertension 19 MOTHER Review of Systems Constitutional: see HPI, weakness EENTM: no symptoms reported Respiratory: no symptoms reported Cardiovascular: no symptoms reported Gastrointestinal: no symptoms reported Genitourinary: no symptoms reported Musculoskeletal: muscle cramps Skin: no symptoms reported Psychiatric/Neurological: Numbness, Pre-Existing Deficit, Weakness (left side) Physical Exam Physical Exam Vital Signs Vital Signs - First Documented 04/29/18 10:27 Temp 97.9 Pulse 82 Resp 19 B/P (MAP) 143/84 (103) Pulse Ox 98 O2 Delivery Room Air Capillary Refill : Less Than 3 Seconds Height, Weight, BMI Height: 5'4.00" Weight: 170lbs. 0.0oz. [id number]; 24.0 BMI Method:Stated General Appearance: No Apparent Distress, WD/WN, Chronically ill Eyes: Bilateral Eye Normal Inspection, Bilateral Eye PERRL HEENT: PERRL/EOMI, Normal ENT Inspection, Pharynx Normal Neck: Full Range of Motion, Normal Inspection, Non Tender, Supple, Carotid Bruit Respiratory: Chest Non Tender, Lungs Clear, Normal Breath Sounds, No Accessory Muscle Use, No Respiratory Distress Cardiovascular: Regular Rate, Rhythm, No Edema, No Gallop, No JVD, No Murmur, Normal Peripheral Pulses Gastrointestinal: Normal Bowel Sounds, No Organomegaly, No Pulsatile Mass, Non Tender, Soft Back: Normal Inspection, No CVA Tenderness, No Vertebral Tenderness Extremity: Normal Capillary Refill, Normal Inspection, Normal Range of Motion, Non Tender, No Calf Tenderness, No Pedal Edema Neurologic/Psychiatric: Alert, Oriented x3, Normal Mood/Affect, Motor Weakness (left side weakness 0/5 upper and lower extremities) Skin: Normal Color, Warm/Dry Lymphatic: No Adenopathy Results Results/Procedures Labs Laboratory Tests 2/9/19 10:40 Patient resulted labs reviewed. Assessment/Plan Admission Diagnosis Assessment: CVA presenting too late for tPA w/h/o multiple CVA's in past s/p REVEAL device by Dr Aponte and placed on Eliquis along with ASA and Plavix for rare occurrence of AF now w/severe residual of left sided flaccidity Acute muscle spasms due to CVA PAF on Eliquis HTN HLP Plan: ASA Plavix Eliquis PT/OT Dr Aponte consultation IRF Home meds Muscle spasm management Admission Status: Inpatient Order (span 2 midnights) Reason for Inpatient Admission: CVA w/left sided flaccidity Diagnosis/Problems Diagnosis/Problems (1) Cerebrovascular accident (CVA) with left hemiparesis Status: Acute (2) Anticoagulant long-term use Status: Chronic (3) Paroxysmal atrial fibrillation Status: Chronic (4) Hypertension Status: Chronic Qualifiers: Hypertension type: essential hypertension Qualified Codes: I10 - Essential (primary) hypertension (5) Hyperlipidemia Status: Chronic Qualifiers: Hyperlipidemia type: mixed hyperlipidemia Qualified Codes: E78.2 - Mixed hyperlipidemia (6) Back pain Status: Chronic Qualifiers: Back pain location: back pain in unspecified location Chronicity: unspecified Back pain laterality: unspecified Qualified Codes: M54.9 - Dorsalgia, unspecified (7) CVA, old, facial weakness Status: Chronic Clinical Quality Measures Stroke: Date of last known well: Apr 28, 2018 Time of last known well: 16:00 LINDSAY WILLIS DO Apr 29, 2018 15:34
[2018-04-29 16:00] VITALS: BP 122/69
[2018-04-29] MEDS: HYDROcodone/APAP 5 MG/325 MG (LORTAB) TAB PO PRN (16:01)
--- NOTE | 2018-04-29 16:13 | Consultation-Cardiology ---
HPI-Cardiology Cardiology Consultation Date of Consultation 04/29/18 Date of Admission Time Seen by Provider: 11:45 Indication: acute CVA HPI 73 years old lady with history of multiple CVA, had a loop recorder and maintained on Xarelto, took a nap yesterday and woke up with weakness of the left side, she was unable to move or get out of bed, this afternoon her daughter found her in bed and called EMS. She still having weakness. She denied any chest pain or palpitation. Denied any syncope or near syncopal episodes. CT showed a CVA Home Medications & Allergies Allergies: Coded Allergies: No Known Drug Allergies (Verified , 09/08/12) Home Medication List Reviewed: Yes [id number]-[id number]-Pkjtym Hx Patient Social History Marital Status: Employed/Student: retired Type Used: Cigarettes 2nd Hand Smoke Exposure: No Recent Foreign Travel: No Recent Infectious Disease Expo: No Recent Hopitalizations: No Immunizations Up To Date Tetanus Booster (TDap): Unknown Date of Pneumonia Vaccine: Nov 19, 2013 Date of Influenza Vaccine: Nov 19, 2013 Past Medical History Past medical history described below Family Medical History Family History: FH: CVA (cerebrovascular accident) G8 BROTHER G8 SISTER FH: breast cancer 19 MOTHER FH: cancer 19 FATHER Hypertension 19 MOTHER Review of Systems Constitutional: see HPI, malaise EENTM: see HPI Respiratory: see HPI; No cough, No dyspnea on exertion, No hemoptysis, No orthopnea, No phlegm, No short of breath, No stridor, No wheezing, No other Cardiovascular: see HPI; No chest pain, No edema, No Hx of Intervention, No palpitations, No syncope, No vascular heart diseas, No other Gastrointestinal: no symptoms reported, see HPI Genitourinary: see HPI Musculoskeletal: no symptoms reported, see HPI Skin: no symptoms reported, see HPI Psychiatric/Neurological: No Symptoms Reported, See HPI, Numbness, Weakness Reviewed Test Results Reviewed Test Results Lab Laboratory Tests Test 04/29/18 10:40 04/29/18 11:53 04/29/18 12:13 Range/Units White Blood Count 8.9 4.3-11.0 10^3/uL Red Blood Count 4.80 4.35-5.85 10^6/uL Hemoglobin 12.4 11.5-16.0 G/DL Hematocrit 41 35-52 % Mean Corpuscular Volume 85 80-99 FL Mean Corpuscular Hemoglobin 26 25-34 PG Mean Corpuscular Hemoglobin Concent 30 L 32-36 G/DL Red Cell Distribution Width 15.2 H 10.0-14.5 % Platelet Count 198 130-400 10^3/uL Mean Platelet Volume 10.6 H 7.4-10.4 FL Neutrophils (%) (Auto) 75 42-75 % Lymphocytes (%) (Auto) 19 12-44 % Monocytes (%) (Auto) 6 0-12 % Eosinophils (%) (Auto) 0 0-10 % Basophils (%) (Auto) 0 0-10 % Neutrophils # (Auto) 6.6 1.8-7.8 X 10^3 Lymphocytes # (Auto) 1.7 1.0-4.0 X 10^3 Monocytes # (Auto) 0.5 0.0-1.0 X 10^3 Eosinophils # (Auto) 0.0 0.0-0.3 10^3/uL Basophils # (Auto) 0.0 0.0-0.1 10^3/uL Prothrombin Time 15.4 H 12.2-14.7 SEC INR Comment 1.2 0.8-1.4 Activated Partial Thromboplast Time 26 24-35 SEC D-Dimer 0.78 H 0.00-0.49 UG/ML Sodium Level 141 135-145 MMOL/L Potassium Level 5.1 H 3.6-5.0 MMOL/L Chloride Level 109 H 98-107 MMOL/L Carbon Dioxide Level 19 L 21-32 MMOL/L Anion Gap 13 5-14 MMOL/L Blood Urea Nitrogen 18 7-18 MG/DL Creatinine 1.62 H 0.60-1.30 MG/DL Estimat Glomerular Filtration Rate 31 BUN/Creatinine Ratio 11 Glucose Level 140 H 70-105 MG/DL Calcium Level 10.3 H 8.5-10.1 MG/DL Corrected Calcium 10.0 8.5-10.1 MG/DL Total Bilirubin 0.8 0.1-1.0 MG/DL Aspartate Amino Transf (AST/SGOT) 29 5-34 U/L Alanine Aminotransferase (ALT/SGPT) 18 0-55 U/L Alkaline Phosphatase 172 H 40-136 U/L Troponin I 0.031 <0.028 NG/ML Total Protein 7.4 6.4-8.2 GM/DL Albumin 4.4 3.2-4.5 GM/DL Glucometer 111 H 70-110 MG/DL Urine Color YELLOW Urine Clarity CLEAR Urine pH 8 5-9 Urine Specific [place] 1.010 L 1.016-1.022 Urine Protein 2+ H NEGATIVE Urine Glucose (UA) NEGATIVE NEGATIVE Urine Ketones NEGATIVE NEGATIVE Urine Nitrite NEGATIVE NEGATIVE Urine Bilirubin NEGATIVE NEGATIVE Urine Urobilinogen NORMAL NORMAL MG/DL Urine Leukocyte Esterase NEGATIVE NEGATIVE Urine RBC (Auto) NEGATIVE NEGATIVE Urine RBC RARE /HPF Urine WBC NONE /HPF Urine Squamous Epithelial Cells RARE /HPF Urine Crystals NONE /LPF Urine Bacteria NEGATIVE /HPF Urine Casts NONE /LPF Urine Mucus NEGATIVE /LPF Urine Culture Indicated NO Physical Exam Vital Signs Vital Signs - First Documented 04/29/18 10:27 Temp 97.9 Pulse 82 Resp 19 B/P (MAP) 143/84 (103) Pulse Ox 98 O2 Delivery Room Air Capillary Refill : Less Than 3 Seconds Height, Weight, BMI Height: 5'4.00" Weight: 170lbs. 0.0oz. [id number]; 24.0 BMI Method:Stated General Appearance: WD/WN, Moderate Distress Eyes: Bilateral Eye Normal Inspection, Bilateral Eye PERRL, Bilateral Eye EOMI HEENT: PERRL/EOMI, TMs Normal, Normal ENT Inspection, Pharynx Normal Neck: Full Range of Motion, Normal Inspection, Non Tender, Supple, Carotid Bruit Respiratory: Chest Non Tender, Lungs Clear, Normal Breath Sounds, No Accessory Muscle Use, No Respiratory Distress Cardiovascular: Regular Rate, Rhythm, No Edema, No Gallop, No JVD, No Murmur, Normal Peripheral Pulses Gastrointestinal: Normal Bowel Sounds, No Organomegaly, No Pulsatile Mass, Non Tender, Soft Back: Normal Inspection, No CVA Tenderness, No Vertebral Tenderness Extremity: Normal Capillary Refill, Normal Inspection, Normal Range of Motion, Non Tender, No Calf Tenderness, No Pedal Edema Neurologic/Psychiatric: Alert, Oriented x3, Other (left hemiplegia) Skin: Normal Color, Warm/Dry Lymphatic: No Adenopathy A/P-Cardiology Admission Diagnosis Acute CVA Paroxysmal atrial fibrillation Hypertension Hyperlipidemia Assessment/Plan 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, has been on Xarelto , adding aspirin and monitor, initiate physical therapy History of multiple CVA in the past, last episode occurred in December 2016, hypercoagulable state workup was negative, 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 Jaime Osteoarthritis, rheumatoid arthritis, history of fibromyalgia, history of depression and elevated LPa Clinical Quality Measures Stroke: Date of last known well: Apr 28, 2018 Time of last known well: 16:00 DOMI MARTINEZ MD Apr 29, 2018 16:13
[2018-04-29 16:25] VITALS: BP 122/69
[2018-04-29] MEDS ORDERED: RIVAROXABAN 20 MG TABLET (XARELTO) PO SCH (17:00)
[2018-04-29] MEDS ORDERED: PATIENT MAY USE OWN MEDS, ALL MC SCH (18:15)
[2018-04-29] MEDS ORDERED: CARVEDILOL 12.5 MG (COREG) TABLET PO SCH (19:15)
[2018-04-29 19:38] VITALS: BP 103/51
--- NOTE | 2018-04-29 19:51 | NUR ---
CONTACTED DR WILLIS FOR ORDER CLARIFICATION. DR WILLIS ORDERED COREG 25MG. DR MARTINEZ ORDERED COREG 12.5MG. DR WILLIS WANTS TO DC HER ORDER FOR COREG 25MG AND CONTINUE DR MARTINEZ'S ORDER FOR 12.5MG. TORBV
[2018-04-29] MEDS: GABAPENTIN 300 MG (NEURONTIN) CAP PO SCH (20:58)
[2018-04-29] MEDS: MONTELUKAST 10 MG (SINGULAIR) TAB PO SCH (20:58)
[2018-04-29] MEDS: CARVEDILOL 12.5 MG (COREG) TABLET PO SCH (20:58)
[2018-04-29] MEDS ORDERED: amLODIPine 5 MG (NORVASC) TAB PO SCH (21:00)
[2018-04-29] MEDS ORDERED: ATORVASTATIN 20 MG (LIPITOR) TABLET PO SCH ×2 (21:00)
--- OUTSIDE RECORDS SUMMARY | 2018-04-29 21:18 | XMS REPORT | Clinical Summary ---
Author Author [facility] Organization [facility] Address Unknown Phone Unavailable Care Team Providers Care Polisher Eyeglass Frames Name Role Phone Hellen Tomas RN Unavailable Unavailable Oriana Watts MD PCP Source Comments Some departments are not documenting in the electronic medical record. If you do not see the information that you expected, contact Release of Information in the Health Information Management department at [phone] for further assistance in locating additional records.[facility] Allergies Not on File Medications Not on [...]
--- OUTSIDE RECORDS SUMMARY | 2018-04-29 21:24 | XMS REPORT | Continuity of Care Document ---
Author Author [facility] Organization [facility] Address Unknown Phone Unavailable Allergies Active Description Code Type Severity Reaction Onset Reported/Identified Relationship to Patient Clinical Status Yes NO KNOWN DRUG ALLERGIES UNKNOWN NO KNOWN DRUG ALLERG Yes NKDA NKDA Mild N/ A 09/01/2008 Yes No Known Drug Allergies [id number] Drug Allergy Unknown N/A 08/13/2016 Medications There [...] ERNESTO S Ot 553.3 06/25/2015 CATRINA WOODS, ENRESTO S Ot 429.3 06/25/2015 CATRINA WOODS, ERNESTO [...] 09/06/2016 CATRINA WOODS, ERNESTO S Ot V72.81 [id number] CARDIOVASCULAR 09/06/2016 CATRINA WOODS, ERNESTO S Ot [...] LOSS 09/07/2016 EDWIN WILLIS DOI Ot Z79.82 SCOUT EXECUTIVE (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 OF ASPIRIN 09/07/2016 EDWIN WILLIS DOI Ot Z79.899 OTHER FDC (CURRENT) DRUG THERAPY 09/07/2016 EDWIN WILLIS DOI [...] W 729.1 MYALGIA AND MYOSITIS, UNSPECIFIED 11/30/2016 TLELO WILKINSON Theodora 780.79 OTHER MALAISE AND FATIGUE [...] 2 01/04/2017 EDWIN WILLIS DOI Ot Z79.02 FDC (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 OF ANTITHROMBOTI 01/04/2017 EDWIN WILLIS [...] 05/17/2017 ERNESTO FRITZ MD S Ot V72.81 [id number] CARDIOVASCULAR 05/17/2017 ERNESTO FRITZ MD S Ot [...] 05/19/2017 DOMI MARTINEZ MD Ot Z79.899 OTHER SCOUT EXECUTIVE (CURRENT) DRUG THERAPY 05/19/2017 DOMI MARTINEZ MD [...] 05/24/2017 DOMI MARTINEZ MD Ot Z79.899 OTHER SCOUT EXECUTIVE (CURRENT) DRUG THERAPY 05/24/2017 DOMI MARTINEZ MD [...] 06/08/2017 DOMI MARTINEZ MD Ot Z79.899 OTHER FDC (CURRENT) DRUG THERAPY 06/08/2017 DOMI MARTINEZ MD [...] SPINE 11/26/2017 ERIK MENDEZ MD Ot Z79.02 SCOUT EXECUTIVE (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 OF ANTITHROMBOTI 11/26/2017 ERIK MENDEZ MD Ot Z79.82 FDC (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 OF ASPIRIN 11/26/2017 ERIK MENDEZ [...] SPINE 11/29/2017 ERIK MENDEZ MD Ot Z79.02 SCOUT EXECUTIVE (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 OF ANTITHROMBOTI 11/29/2017 ERIK MENDEZ MD Ot Z79.82 SCOUT EXECUTIVE (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 OF ASPIRIN 11/29/2017 ERIK MENDEZ [...] SPINE 12/02/2017 ERIK MENDEZ MD Ot Z79.02 SCOUT EXECUTIVE (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 OF ANTITHROMBOTI 12/02/2017 ERIK MENDEZ MD Ot Z79.82 FDC (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 OF ASPIRIN 12/02/2017 ERIK MENDEZ [...] ABSENCE OF OTHER ORGANS 12/16/2017 EDILMA BROWNING LABORATORY MANAGER Ot M54.5 LOW BACK PAIN 12/16/2017 EDILMA BROWNING LABORATORY MANAGER Ot R26.89 OTHER ABNORMALITIES OF GAIT AND MOBILITY 12/18/2017 EDILMA BROWNING LABORATORY MANAGER Ot M54.5 LOW BACK PAIN 12/18/2017 EDILMA BROWNING LABORATORY MANAGER Ot R26.89 OTHER ABNORMALITIES OF GAIT AND MOBILITY 12/19/2017 EDILMA BROWNING LABORATORY MANAGER Ot M54.5 LOW BACK PAIN 12/19/2017 EDILMA BROWNING LABORATORY MANAGER Ot R26.89 OTHER ABNORMALITIES OF GAIT AND MOBILITY 12/21/2017 EDILMA BROWNING LABORATORY MANAGER Ot M54.5 LOW BACK PAIN 12/21/2017 EDILMA BROWNING LABORATORY MANAGER Ot R26.89 OTHER ABNORMALITIES OF GAIT AND MOBILITY 12/23/2017 EDILMA BROWNING LABORATORY MANAGER Ot M54.5 LOW BACK PAIN 12/23/2017 EDILMA BROWNING LABORATORY MANAGER Ot R26.89 OTHER ABNORMALITIES OF GAIT AND MOBILITY 01/19/2018 EDILMA BROWNING LABORATORY MANAGER Ot M54.5 LOW BACK PAIN 01/19/2018 EDILMA BROWNING LABORATORY MANAGER Ot R26.89 OTHER ABNORMALITIES OF GAIT AND MOBILITY 01/24/2018 KANDY OLIVEIRA MD Ot F41.9 ANXIETY DISORDER, UNSPECIFIED 01/24/2018 KANDY OLIVEIRA MD Ot I10 ESSENTIAL (PRIMARY) HYPERTENSION 01/24/2018 KANDY OLIVEIRA MD Ot R19.7 DIARRHEA, UNSPECIFIED 01/24/2018 KANDY OLIVEIRA MD Ot Z79.01 FDC (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 OF ANTICOAGULANT 01/24/2018 KANDY OLIVEIRA MD Ot Z79.02 FDC (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 OF ANTITHROMBOTI 01/24/2018 KANDY OLIVEIRA MD Ot Z79.82 FDC (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 OF ASPIRIN 01/24/2018 KANDY OLIVEIRA [...] UNSPECIFIED 01/27/2018 KANDY OLIVEIRA MD Ot Z79.01 SCOUT EXECUTIVE (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 OF ANTICOAGULANT 01/27/2018 KANDY OLIVEIRA MD Ot Z79.02 FDC (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 OF ANTITHROMBOTI 01/27/2018 KANDY OLIVEIRA MD Ot Z79.82 FDC (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 OF ASPIRIN 01/27/2018 KANDY OLIVEIRA [...] ACQUIRED ABSENCE OF OTHER SPECIFIED PART 01/27/2018 KANDY OLIVEIRA MD Ot Z90.89 ACQUIRED ABSENCE OF OTHER ORGANS 02/08/2018 REJI WOODS, SALAS Katz Ot R19.7 DIARRHEA, UNSPECIFIED 02/28/2018 ERNESTO FRITZ MD Ot 429.3 CARDIOMEGALY 02/28/2018 ERNESTO FRITZ MD Ot 530.81 ESOPHAGEAL REFLUX 02/28/2018 ERNESTO FRITZ MD Ot V72.63 PRE-PROCEDURAL LABORATORY EXAMINATION 02/28/2018 ERNESTO FRITZ MD Ot V72.81 [id number] CARDIOVASCULAR 02/28/2018 ERNESTO FRITZ MD Ot V72.83 EXAM PRE-OPERATIVE NEC 02/28/2018 ERNESTO FRITZ MD Ot V74.8 SCREEN-BACTERIAL DIS NEC 02/28/2018 ERNESTO FRITZ MD, Ot V72.84 EXAM PRE-OPERATIVE NOS 02/28/2018 CATRINA WOODS, ERNESTO S Ot 530.81 ESOPHAGEAL REFLUX 02/28/2018 ERNESTO FRITZ MD S Ot V45.89 POSTSURGICAL STATES NEC 02/28/2018 ERNESTO FRITZ MD S Ot V72.84 EXAM PRE-OPERATIVE NOS 02/28/2018 CARTINA WOODS, ERNESTO S Ot 530.11 REFLUX ESOPHAGITIS 02/28/2018 ERNESTO FRITZ MD S Ot V45.89 POSTSURGICAL STATES NEC 02/28/2018 CATRINA WOODS, ERNESTO S Ot V72.84 EXAM PRE-OPERATIVE NOS 02/28/2018 OLN CULVER, DAPHNIE K Ot 272.4 HYPERLIPIDEMIA NEC/NOS [...] MICHELLE WOODS, DOMI Munoz Ot Z79.899 OTHER FDC (CURRENT) DRUG THERAPY 02/28/2018 DOMI MARTINEZ MD Ot Z87.891 PERSONAL HISTORY OF NICOTINE DEPENDENCE 02/28/2018 REJI WOODS, SALAS Katz Ot R19.7 DIARRHEA, UNSPECIFIED 03/01/2018 NIKOS MAZARIEGOS RV PARTS AND SERVICE DIRECTOR Ot R19.7 DIARRHEA, UNSPECIFIED 03/01/2018 NIKOS MAZARIEGOS RV PARTS AND SERVICE DIRECTOR Ot R63.5 ABNORMAL WEIGHT GAIN 03/02/2018 NIKOS MAZARIEGOS RV PARTS AND SERVICE DIRECTOR Ot M41.86 OTHER FORMS OF SCOLIOSIS, LUMBAR REGION 03/02/2018 NIKOS MAZARIEGOS RV PARTS AND SERVICE DIRECTOR Ot M43.16 SPONDYLOLISTHESIS, LUMBAR REGION 03/02/2018 NIKOS MAZARIEGOS RV PARTS AND SERVICE DIRECTOR Ot M46.87 OTH INFLAMMATORY SPONDYLOPATHIES, LUMBOS 03/02/2018 NIKOS MAZARIEGOS RV PARTS AND SERVICE DIRECTOR Ot M48.07 SPINAL STENOSIS, LUMBOSACRAL REGION 03/02/2018 NIKOS MAZARIEGOS RV PARTS AND SERVICE DIRECTOR Ot M51.27 OTHER INTERVERTEBRAL DISC DISPLACEMENT, 03/02/2018 NIKOS MAZARIEGOS RV PARTS AND SERVICE DIRECTOR Ot M51.36 OTHER INTERVERTEBRAL DISC DEGENERATION, 03/02/2018 NIKOS MAZARIEGOS RV PARTS AND SERVICE DIRECTOR Ot R15.9 FULL INCONTINENCE OF FECES 03/10/2018 NIKOS MAZARIEGOS RV PARTS AND SERVICE DIRECTOR Ot M41.86 OTHER FORMS OF SCOLIOSIS, LUMBAR REGION 03/10/2018 NIKOS MAZARIEGOS RV PARTS AND SERVICE DIRECTOR Ot M43.16 SPONDYLOLISTHESIS, LUMBAR REGION 03/10/2018 NIKOS MAZARIEGOS RV PARTS AND SERVICE DIRECTOR Ot M46.87 OTH INFLAMMATORY SPONDYLOPATHIES, LUMBOS 03/10/2018 NIKOS MAZARIEGOS RV PARTS AND SERVICE DIRECTOR Ot M48.07 SPINAL STENOSIS, LUMBOSACRAL REGION 03/10/2018 NIKOS MAZARIEGOS RV PARTS AND SERVICE DIRECTOR Ot M51.27 OTHER INTERVERTEBRAL DISC DISPLACEMENT, 03/10/2018 NIKOS MAZARIEGOS RV PARTS AND SERVICE DIRECTOR Ot M51.36 OTHER INTERVERTEBRAL DISC DEGENERATION, 03/10/2018 NIKOS MAZARIEGOS RV PARTS AND SERVICE DIRECTOR Ot R15.9 FULL INCONTINENCE OF FECES 03/10/2018 NIKOS MAZARIEGOS RV PARTS AND SERVICE DIRECTOR Ot R19.7 DIARRHEA, UNSPECIFIED 03/10/2018 NIKOS MAZARIEGOS RV PARTS AND SERVICE DIRECTOR Ot R63.5 ABNORMAL WEIGHT GAIN Procedures Code Description Performed By Performed On 45.13 OTHER ENDOSCOPY OF SM INTEST 01/15/2009 99.10 INJECT/INFUSE THROMBOLYTIC AGENT 03/20/2014 [id number] INTRODUCE OTH THROMBOLYTIC IN PERIPH VEI 01/02/2017 [...] Status Pt. Type Provider Facility Loc./Unit Complaint [id number] 04/05/2018 08:26:00 04/05/2018 23:59:59 CLS Preadmit LON CULVER, DAPHNIE Barnett [facility] CARD CVA,CAROTID ARTERY STENOSIS [id number] 03/01/2018 09:37:00 03/01/2018 23:59:59 CLS Outpatient NIKOS MAZARIEGOS [facility] RAD LOW BACK PAIN, BOWEL INCONT [id number] 02/27/2018 10:00:00 02/27/2018 23:59:59 CLS Outpatient NIKOS MAZARIEGOS [facility] RAD DIARRHEA [id number] 01/27/2018 16:58:00 01/27/2018 23:59:59 CLS Outpatient SALAS MENDOZA MD [facility] LAB DIARRHEA H0OWZDN [id number] 01/24/2018 06:05:00 01/24/2018 08:37:00 DIS Emergency ROXANNE WOODS, KANDY Munoz [facility] ER DIARRHEA [id number] 12/19/2017 14:14:00 01/19/2018 15:56:00 DIS Outpatient EDILMA BROWNING APRN [facility] REHAB LBP;BALANCE/GAIT ABNORMALITIES [id number] 12/14/2017 09:32:00 12/18/2017 00:01:00 DIS Outpatient EDILMA BROWNING APRN [facility] REHAB LBP;BALANCE/GAIT ABNORMALITIES [id number] 11/26/2017 08:39:00 11/26/2017 10:48:00 DIS Emergency VANESSA WOODS, ERIK Barnett [facility] ER SEVERE BACK PAIN X1 WEEK [id number] 05/18/2017 10:03:00 05/18/2017 23:59:59 CLS Outpatient DOMI MARTINEZ MD [facility] CATH CRYPTOGENIC STROBE [id number] 03/16/2017 08:00:00 03/16/2017 23:59:59 CLS Outpatient TELLO WILKINSON MD [facility] RAD HTN [id number] 01/02/2017 16:08:00 01/04/2017 14:15:00 DIS Inpatient WILLIS DO, SANDY [facility] ICU COMPLETE LEFT HEMIANOPSIA ,HEADACHE [id number] 09/05/2016 23:25:00 09/07/2016 15:45:00 DIS Inpatient WILLIS DO SANDY [facility] 4TH GENERALIZED WEAKNESS; ALTERED MENTAL STATUS; UTI [id number] 08/13/2016 10:34:00 08/13/2016 13:18:00 DIS Outpatient NADIA BARTHOLOMEW MD [facility] ENDO WEIGHT LOSS/HX POLYPS [id number] 08/11/2016 05:49:00 08/11/2016 14:46:00 DIS Outpatient NADIA BARTHOLOMEW MD [facility] PREOP WEIGHT LOSS/HX POLYPS [id number] 06/25/2015 09:00:00 06/25/2015 23:59:59 CLS Outpatient DOMI MARTINEZ MD [facility] CARD CAD,CLAUDICATIONS, HTN HLP CVA [id number] 04/11/2014 14:55:00 04/25/2014 10:55:00 DIS Outpatient TELLO WILKINSON MD [facility] REHAB CVA [id number] 04/16/2014 14:19:00 04/16/2014 15:13:00 DIS Outpatient TELLO WILKINSON MD [facility] REHAB CVA [id number] 04/10/2014 07:45:00 04/10/2014 12:42:00 DIS Outpatient MICHELLE WOODS, DOMI Munoz [facility] CATH CVA,CAROTID STENOSIS,HTN ,HLP [id number] 03/22/2014 11:32:00 03/26/2014 11:45:00 DIS Inpatient TAWANA WOODS, JERICA Vogel [facility] IRF IRF-CVA [id number] 03/20/2014 14:40:00 03/22/2014 11:00:00 DIS Inpatient FRANCISCO WODOS, IWONA Mckinney [facility] ICU CVA RIGHT SIDED WEAKNESS [id number] 12/12/2013 08:09:00 12/12/2013 23:59:59 CLS Outpatient TELLO WILKINSON MD [facility] RAD CKD 3 [id number] 11/07/2013 10:45:00 11/07/2013 23:59:59 CLS Outpatient DAPHNIE ODELL [facility] CARD CAROTID ARTERY STENOSIS,HTN,HLP,DYSPNEA [id number] 07/19/2013 07:02:00 07/19/2013 23:59:59 CLS Outpatient ERNESTO FRITZ MD [facility] SDC GERD [id number] 07/11/2013 07:29:00 07/11/2013 23:59:59 CLS Outpatient ERNESTO FRITZ MD [facility] PREOP GERD [id number] 12/28/2012 08:03:00 12/28/2012 23:59:59 CLS Outpatient ERNESTO FRITZ MD [facility] SDC REFLUX [id number] 12/27/2012 07:12:00 12/27/2012 23:59:59 CLS Outpatient ERNESTO FRITZ MD [facility] PREOP REFLUX [id number] 10/26/2012 07:07:00 10/26/2012 11:35:00 DIS Outpatient ERNESTO FRITZ MD [facility] GERD [id number] 10/25/2012 07:22:00 10/25/2012 23:59:59 CLS Outpatient ERNESTO FRITZ MD [facility] PREOP GERD [id number] 09/13/2012 07:30:00 09/15/2012 17:27:00 DIS Outpatient ERNESTO FRITZ MD [facility] GASTROESOPHAGEAL REFLUX DISEASE [id number] 09/08/2012 12:15:00 09/08/2012 23:59:59 CLS Outpatient ERNESTO FRITZ MD [facility] PREOP GERD [id number] 08/31/2012 07:17:00 08/31/2012 23:59:59 CLS Outpatient ERNESTO FRITZ MD [facility] GERD [id number] 08/30/2012 07:17:00 08/30/2012 23:59:59 CLS Outpatient ERNESTO FRITZ MD [facility] PREOP GERD [id number] 04/29/2018 11:55:00 ACT Inpatient SANDY WILLIS DO [facility] 4TH STROKE [id number] 03/22/2014 15:43:00 Document Registration [id number] 03/22/2014 15:43:00 Document Registration [id number] 03/22/2014 15:43:00 Document Registration [id number] 03/22/2014 15:43:00 Document Registration [id number] 06/22/2012 08:16:00 Document Registration [id number] 06/21/2012 08:10:00 Document Registration [id number] 02/16/2012 13:08:00 Document Registration [id number] 12/29/2011 10:50:00 Document Registration [id number] 11/25/2011 11:45:00 Document Registration [id number] 12/18/2010 10:24:00 Document Registration [id number] 10/20/2010 13:35:00 Document Registration [id number] 09/28/2010 10:33:00 Document Registration [id number] 09/24/2010 13:48:00 Document Registration [id number] 06/18/2010 12:28:00 Document Registration [id number] 04/21/2010 00:00:00 Document Registration [id number] 04/14/2010 13:40:00 Document Registration [id number] 03/30/2010 13:42:00 Document Registration [id number] 03/27/2010 10:20:00 Document Registration [id number] 03/17/2010 19:50:00 Document Registration [id number] 01/14/2010 19:10:00 Document Registration [id number] 12/18/2009 10:20:00 Document Registration [id number] 12/16/2009 09:23:00 Document Registration [id number] 09/22/2009 10:14:00 Document Registration [id number] 09/11/2009 09:36:00 Document Registration [id number] 08/25/2009 09:20:00 Document Registration [id number] 07/30/2009 11:44:00 Document Registration [id number] 02/26/2009 11:04:00 Document Registration [id number] 01/22/2009 16:12:00 Document Registration [id number] 12/28/2008 16:48:00 Document Registration [id number] 10/16/2008 09:11:00 Document Registration [id number] 11/09/2017 14:35:31 11/09/2017 23:59:59 CLS Outpatient [id number] 12/02/2016 09:50:00 Document Registration [id number] 03/07/2017 14:11:00 03/07/2017 23:59:00 DIS Outpatient TELLO WILKINSON [id number] 12/02/2016 09:50:00 12/02/2016 23:59:00 DIS Outpatient TELLO WILKINSON [id number] 11/30/2016 17:50:00 11/30/2016 23:59:00 DIS Outpatient TELLO WILKINSON [id number] 07/21/2016 13:51:00 07/21/2016 23:59:00 DIS Outpatient TELLO WILKINSON [id number] 07/01/2016 16:30:00 07/01/2016 23:59:00 DIS Outpatient TELLO WILKINSON [id number] 02/05/2016 16:48:00 02/05/2016 23:59:00 DIS Outpatient WILKINSON, TELLO [id number] 04/27/2014 04:34:10 ACT Document Registration [id number] 12/03/2016 10:16:00 Document Registration [id number] 12/02/2016 12:18:00 Document Registration [id number] 04/14/2018 16:00:00 04/14/2018 23:59:59 [facility] Outpatient [facility] [id number] 12/02/2016 11:16:00 Document Registration
[2018-04-29 23:00] VITALS: BP 131/61
[2018-04-30 04:00] VITALS: BP 119/71
[2018-04-30 06:04] LABS: MEAN PLATELET VOLUME 10.8 FL (7.4-10.4); WHITE BLOOD COUNT 6.2 10^3/uL (4.3-11.0)
[2018-04-30 06:22] LABS: ALBUMIN 3.8 GM/DL (3.2-4.5); BILIRUBIN,TOTAL 0.7 MG/DL (0.1-1.0); CALCIUM 9.8 MG/DL (8.5-10.1); CREATININE SERUM 1.77 MG/DL (0.60-1.30); POTASSIUM 4.3 MMOL/L (3.6-5.0); TOTAL PROTEIN 6.4 GM/DL (6.4-8.2)
[2018-04-30] MEDS ORDERED: PANTOPRAZOLE 40 MG (PROTONIX) TAB PO SCH (07:00)
[2018-04-30] MEDS ORDERED: FLU QUADRIvalent (5+ YOA) 2018-2019 (AFLURIA) 0.5 ML IM ONE (07:30)
[2018-04-30 08:00] VITALS: BP 133/60
[2018-04-30] MEDS ORDERED: PENTOXIFYLLINE ER 400 MG (TRENtal) TAB PO SCH (09:00)
[2018-04-30] MEDS ORDERED: ASPIRIN E.C. 81 MG (ECOTRIN) TAB PO SCH (09:00)
[2018-04-30] MEDS ORDERED: amLODIPine 10 MG (NORVASC) TAB PO SCH (09:00)
[2018-04-30] MEDS: LATANOPROST 0.005% (XALATAN) OPHTH SOLN 2.5 ML OU SCH (09:08)
[2018-04-30] MEDS: ASPIRIN E.C. 81 MG (ECOTRIN) TAB PO SCH (09:09)
[2018-04-30] MEDS: CLOPIDOGREL 75 MG (PLAVIX) TABLET PO SCH (09:09)
[2018-04-30] MEDS: GABAPENTIN 300 MG (NEURONTIN) CAP PO SCH ×2 (09:09→20:31)
[2018-04-30] MEDS: CARVEDILOL 12.5 MG (COREG) TABLET PO SCH (09:10)
[2018-04-30] MEDS: HYDROcodone/APAP 5 MG/325 MG (LORTAB) TAB PO PRN (09:10)
[2018-04-30] MEDS ORDERED: BRIMON0.2 OU (09:20)
[2018-04-30] MEDS ORDERED: BRIMONIDINE 0.2% (ALPHAGAN) OPHTH SOLN 5 ML BTL OU SCH (09:25)
[2018-04-30] MEDS ORDERED: MAGNESIUM OXIDE (MAG-OX)400 MG TAB PO SCH (09:46)
[2018-04-30] MEDS ORDERED: buPROPion 75 MG (WELLBUTRIN) TAB PO SCH (09:46)
[2018-04-30] MEDS: MAGNESIUM OXIDE (MAG-OX)400 MG TAB PO SCH ×2 (11:40→17:21)
[2018-04-30] MEDS: BRIMONIDINE 0.2% (ALPHAGAN) OPHTH SOLN 5 ML BTL OU SCH ×2 (11:41→20:33)
[2018-04-30 12:00] VITALS: BP_SYST 100; BP_SYST 126; BP_DIAS 68; BP_DIAS 79
--- NOTE | 2018-04-30 12:09 | Cardiology Progress Note ---
Subjective Date Seen by Provider: Apr 30, 2018 Time Seen by Provider: 12:07 Subjective/Events-last exam patient is laying down in bed. Sleeping, received pain medication due to vesiculation and pain in her leg Review of Systems General: No Chills, No Night Sweats, No Fatigue, No Malaise, No Appetite, No Other HEENT: No Head Aches, No Visual Changes, No Eye Pain, No Ear Pain, No Dysphasia , No Sinus Congestion, No Post Nasal Drip, No Sore Throat, No Other Pulmonary: No Dyspnea, No Cough, No Pleuritic Chest Pain, No Other Cardiovascular: No: Chest Pain, Palpitations, Orthopnea, Paroxysmal Noc. Dyspnea, Edema, Lt Headedness, Other Objective-Cardiology Exam Last Set of Vital Signs Vital Signs 04/30/18 08:00 Temp 98.5 Pulse 90 Resp 18 B/P (MAP) 133/60 (84) Pulse Ox 92 O2 Delivery Room Air Capillary Refill : Less Than 3 Seconds I&O Intake and Output 04/29/18 23:59 Intake Total 670 ml Output Total 400 ml Balance 270 ml Intake Oral 670 ml Output Urine Total 400 ml Daily Weight Change No No General: Other (sleeping) HEENT: Atraumatic, PERRLA Neck: Supple, No JVD, No Thyromegaly Lungs: Clear to Auscultation, Normal Air Movement Heart: Regular Rate, Normal S1, Normal S2, No Murmurs Abdomen: Normal Bowel Sounds, Soft, No Tenderness, No Hepatosplenomegaly, No Masses Extremities: No Clubbing, No Cyanosis, No Edema, Normal Pulses, No Tenderness/ Swelling Skin: No Rashes, No Breakdown, No Significant Lesion Neuro: Other (left hemiplegia) Results Lab Laboratory Tests 04/30/18 05:21 A/P-Cardiology Admission Diagnosis Acute CVA Paroxysmal atrial fibrillation Hypertension Hyperlipidemia Assessment/Plan 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 Jaime. Continue to monitor renal function Hypertension, restart home medication monitor blood pressure Hyperlipidemia, monitor lipids Intermediate metabolizer for Plavix History of syncope, no further syncopal episodes were reported Osteoarthritis, rheumatoid arthritis, history of fibromyalgia, history of depression and elevated LPa Clinical Quality Measures DVT/VTE Risk/Contraindication: Risk Factor Score Per Nursin RFS Level Per Nursing on Admit: 4+=Very High Stroke: Date of last known well: Apr 28, 2018 Time of last known well: 16:00 DOMI MARTINEZ MD Apr 30, 2018 12:08
--- NOTE | 2018-04-30 12:52 | Progress Note-Hospitalist ---
Progress Note Progress Notes/Assess & Plan Date Seen 04/30/18 Time Seen by Provider: 12:48 Assessment & Plan The patient is a 73-year-old white female who was admitted after she presented to the emergency room with a chief complaint of left-sided weakness. Her daughter states that the she found her in bed call the ambulance which brought her to the emergency room. She was at least 20 hours post last known well time. She was therefore not a candidate for TPA. She apparently had been taking Eliquis for paroxysmal atrial fibrillation. She had had several previous episodes which resolved completely. On this occasion her difficulties are left sided. Speech and swallowing are normal. She is drowsy this morning after having taken a muscle relaxant Physical exam: She is drowsy but arouses to voice and stimulus. Her speech is clear. Lungs are clear to auscultation. CV is regular. There is no front end software engineer noted on the left. She is unable to elevate her left foot off the bed. Impression: Completed CVA with left-sided weakness. Plan: Rehabilitation consultation tomorrow. ERIK MENDEZ MD Apr 30, 2018 12:52
[2018-04-30] MEDS: buPROPion 75 MG (WELLBUTRIN) TAB PO SCH (13:52)
[2018-04-30] MEDS: ACETAMINOPHEN 500 MG TAB (TYLENOL) PO PRN (15:48)
[2018-04-30 16:00] VITALS: BP 126/63
[2018-04-30] MEDS: RIVAROXABAN 20 MG TABLET (XARELTO) PO SCH (17:18)
[2018-04-30 20:00] VITALS: BP 110/55
[2018-04-30] MEDS: MONTELUKAST 10 MG (SINGULAIR) TAB PO SCH (20:29)
[2018-04-30] MEDS: ATORVASTATIN 20 MG (LIPITOR) TABLET PO SCH (20:32)
[2018-04-30] MEDS ORDERED: CARVEDILOL 12.5 MG (COREG) TABLET PO SCH (21:00)
[2018-05-01] VITALS (7 sets, daily range): BP systolic 95–135; BP diastolic 51–71
[2018-05-01] MEDS: PANTOPRAZOLE 40 MG (PROTONIX) TAB PO SCH (06:22)
--- NOTE | 2018-05-01 08:38 | Cardiology Progress Note ---
Subjective Date Seen by Provider: May 01, 2018 Time Seen by Provider: 08:37 Subjective/Events-last exam patient is laying down in bed, no new complaint, no improvement Review of Systems General: No Chills, No Night Sweats, No Fatigue, No Malaise, No Appetite, No Other HEENT: No Head Aches, No Visual Changes, No Eye Pain, No Ear Pain, No Dysphasia , No Sinus Congestion, No Post Nasal Drip, No Sore Throat, No Other Pulmonary: No Dyspnea, No Cough, No Pleuritic Chest Pain, No Other Cardiovascular: No: Chest Pain, Palpitations, Orthopnea, Paroxysmal Noc. Dyspnea, Edema, Lt Headedness, Other Objective-Cardiology Exam Last Set of Vital Signs Vital Signs 05/01/18 07:58 Temp 98.3 Pulse 74 Resp 18 B/P (MAP) 108/55 (72) Pulse Ox 94 O2 Delivery Room Air Capillary Refill : Less Than 3 Seconds I&O Intake and Output 05/01/18 00:00 Intake Total 1860 ml Output Total 850 ml Balance 1010 ml Intake Oral 1860 ml Output Urine Total 850 ml General: Alert, Oriented X3, Cooperative, Other HEENT: Atraumatic, PERRLA Neck: Supple, No JVD, No Thyromegaly Lungs: Clear to Auscultation, Normal Air Movement Heart: Regular Rate, Normal S1, Normal S2, No Murmurs Abdomen: Normal Bowel Sounds, Soft, No Tenderness, No Hepatosplenomegaly, No Masses Extremities: No Clubbing, No Cyanosis, No Edema, Normal Pulses, No Tenderness/ Swelling Skin: No Rashes, No Breakdown, No Significant Lesion Neuro: Other (left hemiplegia) A/P-Cardiology Admission Diagnosis Acute CVA Paroxysmal atrial fibrillation Hypertension Hyperlipidemia Assessment/Plan 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, has been on Xarelto , I added aspirin, continue with physical therapy History of multiple CVA in the past, last episode occurred in December 2016, hypercoagulable state workup was negative, STAR in March 2014 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 Jaime. Continue to monitor renal function Hypertension, restart home medication monitor blood pressure Hyperlipidemia, monitor lipids Intermediate metabolizer for Plavix History of syncope, no further syncopal episodes were reported Osteoarthritis, rheumatoid arthritis, history of fibromyalgia, history of depression and elevated LPa Clinical Quality Measures DVT/VTE Risk/Contraindication: Risk Factor Score Per Nursin RFS Level Per Nursing on Admit: 4+=Very High Stroke: Date of last known well: Apr 28, 2018 Time of last known well: 16:00 DOMI MARTINEZ MD May 01, 2018 08:38
[2018-05-01] MEDS ORDERED: amLODIPine 5 MG (NORVASC) TAB PO SCH (09:00)
[2018-05-01] MEDS ORDERED: BUPR-168 PO (09:21)
[2018-05-01] MEDS ORDERED: RIVA20TA PO (09:21)
[2018-05-01] MEDS ORDERED: TRAM50TA2 PO (09:21)
[2018-05-01] MEDS ORDERED: MAGN400T39 PO (09:21)
--- NOTE | 2018-05-01 09:25 | NUR ---
WENT OVER THE EXT MED HX WELL THE MEDICATION BOTTLES THE PATIENT BROUGHT IN WITH HER. THEY VERIFIED HOW SHE TAKES HER MEDICATIONS. THEY REPORT THE PLAVIX AND SINGULAIR HAVE BEEN DISCONTINUED. IN ADDITION TO WHAT IS SHOWN ON THE EXT MED HX SHE HAS BOTTLES FILLED FOLLOWS: 04-04-18 XARELTO 20MG DAILY #30 ([facility]) 03-08-18 BUPROPION 75MG BID #180 (ONLY TAKES ONCE DAILY AM NOW, FILLED [employer] MAIL ORDER) 03-06-18 AMLODIPINE 5MG DAILY #90 SHE ALSO TAKES MAG BID OTC
--- NOTE | 2018-05-01 09:31 | NUR ---
Inpatient rehab evaluation Received order to evaluate patient for admission to acute inpatient rehab. PT and OT have been ordered, evaluations are pending. Will continue to follow. Thank you for this referral.
[2018-05-01] MEDS: LATANOPROST 0.005% (XALATAN) OPHTH SOLN 2.5 ML OU SCH (09:34)
[2018-05-01] MEDS: MAGNESIUM OXIDE (MAG-OX)400 MG TAB PO SCH ×2 (09:34→16:07)
[2018-05-01] MEDS: BRIMONIDINE 0.2% (ALPHAGAN) OPHTH SOLN 5 ML BTL OU SCH ×2 (09:34→20:06)
[2018-05-01] MEDS: buPROPion 75 MG (WELLBUTRIN) TAB PO SCH (09:36)
[2018-05-01] MEDS: GABAPENTIN 300 MG (NEURONTIN) CAP PO SCH ×2 (09:36→20:06)
[2018-05-01] MEDS: PENTOXIFYLLINE ER 400 MG (TRENtal) TAB PO SCH (09:37)
[2018-05-01] MEDS: amLODIPine 5 MG (NORVASC) TAB PO SCH (09:38)
--- NOTE | 2018-05-01 09:41 | Physical Therapy Evaluation ---
PT Evaluation-General Medical Diagnosis Admission Date Apr 29, 2018 at 11:55 Medical Diagnosis: CVA Onset Date: Apr 29, 2018 Therapy Diagnosis Therapy Diagnosis: L sided weakness, decreased mobility, gait deviation Height/Weight Height (Feet): 5 Height (Inches): 4.00 Weight (Pounds): 170 Weight (Ounces): 0.0 Precautions Precautions/Isolations: Fall Prevention, Standard Precautions Weight Bear Status Right Lower Extremity: Right Full Weight Bearing Left Lower Extremity: Left Full Weight Bearing Referral Physician: Dr. You Reason for Referral: Evaluation/Treatment Medical History Pertinent Medical History: Arthritis, CVA (6 previous strokes), GERD, HTN Additional Medical History Valvular Heart Disease, Heart Murmur, Hiatal hernia, Anemic Reviewed History: Yes Social History Home: Single Level Current Living Status: Alone Prior/[facility] FIM Prior Level of Function Therapy Code Descriptions/Definitions Functional [place] Measure: 0=Not Assessed/NA 4=Minimal Assistance 1=Total Assistance 5=Supervision or Setup 2=Maximal Assistance 6=Modified [place] 3=Moderate Assistance 7=Complete [place] Therapy Quality Codes: 6 Independent with activity with or without an assistive device 5 Patient requires set up or clean up by helper. Patient completes activity by themselves 4 Supervision or touching assist (CGA). [place] provide cues , steadying assist 3 The helper provides less than half the effort to complete the activity 2 The helper provides more than half the effort to complete the activity 1 Dependent. The helper does all the effort to complete an activity 7 Patient refused to complete or attempt activity 9 The patient did not perform the activity before the current illness or injury 88 Not attempted due to Medical conditions or safety concerns Functional Abilities and Goals: Independent: Patient completed the activities by him/herself, with or without an assistive device, with no assistance from a helper. Needed Some Help: Patient needed partial assistance from another person to complete activities. Dependent: A helper completed the activities for the patient. Unknown: Not Applicable: Bed Mobility: 7 Transfers (B,C,W/C) (FIM): 7 Gait: 7 Indoor Mobility (Ambulation): Independent Prior Devices Use: None PT Evaluation-Current Subjective Pt is in bed leaning to R side with daughter in room and agrees to PT. Pain Numeric Pain Scale: 0-No Pain Location: No Pain Reported Objective Patient Orientation: Person, Place, Situation, Normal For Age Attachments: SCD's, Roland Catheter ROM/Strength ROM Lower Extremities RLE WNL; LLE PROM WNL Strength Lower Extremities RLE WNL; LLE 1/5 Integumentary/Posture Bowel Incontinence: No Bladder Incontinence: Roland Cath Neuromuscular (Tone, Coordination, Reflexes) L Flaccid, hyperreflexive with babinski Sensory Vision: Functional Hearing: Functional Sensation Right Lower Extremit: Intact Sensation Left Lower Extremity: Impaired Transfers Therapy Code Descriptions/Definitions Functional [place] Measure: 0=Not Assessed/NA 4=Minimal Assistance 1=Total Assistance 5=Supervision or Setup 2=Maximal Assistance 6=Modified [place] 3=Moderate Assistance 7=Complete [place] Transfers (B, C, W/C) (FIM): 1 Scootin Supine to/from Sit: 1 Sit to/from Stand: 2 Gait Mode of Locomotion: Walk Anticipated Mode of Locomotion: Both Balance Sitting Static: Poor Sitting Dynamic: Poor Standing Static: Poor Standing Dynamic: Poor Special Test Comments Pt required max A with sitting balance Assessment/Needs Pt presents with L neglect. Pt has L flaccidity. Pt required dependent A x2 with bed mobility. Pt also required dependent A x1 for sitting balance. PT performed standing pivot transfer from EOB to recliner using max A x1. Pt was able to perform R LAQ x10 hoping to get some reciprocal effect to L side. PT instructed pt to work on moving LLE and pts family as well to work with pt. Pt is in recliner with family in room and all needs met. Rehab Potential: Poor Post Rehab Potential-Barriers: Previous stroke hx PT Short Term Goals Short Term Goals Time Frame: May 08, 2018 Transfers (B,C,W/C) (FIM): 2 Gait (FIM): 1 Distance (FIM): 1=up to 49 ft Gait Distance Comment: 20' Gait Level of Assist: 3 Gait Assistive Device: FWW, Walker Jose Luis PT Plan Problem List Problem List: Activity Tolerance, Functional Strength, Safety, Balance, Gait, Transfer, Bed Mobility, ROM Treatment/Plan Treatment Plan: Continue Plan of Care Treatment Plan: Bed Mobility, Education, Functional Activity Sarah, Functional Strength, Gait, Safety, Therapeutic Exercise, Transfers Treatment Duration: May 08, 2018 Frequency: 11 times per week Estimated Hrs Per Day: .25 hour per day Patient and/or Family Agrees t: Yes Safety Risks/Education Patient Education: Transfer Techniques, Correct Positioning, Safety Issues Teaching Recipient: Patient, Family Teaching Methods: Demonstration, Discussion Discharge Recommendations Therapy D/C Recommendations: Acute Rehab, Prison Placement, Penitentiary (TCU/NH) Equpiment Recommendations-D/C: Front Wheeled Walker Time/GCodes Time In: 847 Time Out: 903 Total Billed Treatment Time: 16 Total Billed Treatment 1 visit EVmodC 16 min FELICITA SINGH PT May 01, 2018 09:41
[2018-05-01] MEDS: ASPIRIN E.C. 81 MG (ECOTRIN) TAB PO SCH (09:43)
--- NOTE | 2018-05-01 09:47 | Progress Note-Hospitalist ---
Subjective HPI/CC On Admission Date Seen by Provider: May 01, 2018 Time Seen by Provider: 09:30 CC: Stroke with left sided weakness HPI: This is a 73yoWF former clinic patient of Dr Kaplan and just recently changed to Dr Weaver at [facility] (but since she was admitted to my service and already saw that patient she will remain on my service instead of moving to [facility] ) who presented to the ER nearly 20 hours after sustaining a significant CVA w/ left sided weakness. She was found by her family in her bed and was brought to the ER via EMS. She has had multiple strokes in the past and REVEAL device placed by Dr Aponte had revealed a rare occurrence of AF so she was placed on Eliquis but when she presented to the ER she was too far out to receive tPA and has sustained a life changing residual deficit on her left side. She previously had right side facial weakness from her prior CVA's. Patient has had multiple tests to evaluate for CVA source in the past and now will be admitted and maintained on anticoagulation and add ASA to prevent further strokes. Pt having muscle spasms and pain so pain meds and Zanaflex and Baclofen have all been added to her MAR to use prn. Pt has had IRF stay before so we will put consult in for IRF to move on Tuesday. Subjective/Events-last exam Pt is doing well. Will discontinue catheter and work on constipation today. In patient rehab transmission will be tomorrow. Overall feels very depressed. Catastrophic stroke with left sided weakness will be a challenge to recover from. Checked labs and meds. Will discontinue Telemetry due to her having the reveal device. Review of Systems Gastrointestinal: Constipation Neurological: Weakness Objective Exam Vital Signs Vital Signs Date Time Temp Pulse Resp B/P (MAP) Pulse Ox O2 Delivery O2 Flow Rate FiO2 05/01/18 19:26 60 20 117/71 (86) 97 Room Air 05/01/18 15:40 95.7 Capillary Refill : Less Than 3 Seconds General Appearance: No Apparent Distress, WD/WN, Chronically ill HEENT: PERRL/EOMI, Normal ENT Inspection, Pharynx Normal Neck: Full Range of Motion, Normal Inspection, Non Tender, Supple, Carotid Bruit Respiratory: Chest Non Tender, Lungs Clear, Normal Breath Sounds, No Accessory Muscle Use, No Respiratory Distress Cardiovascular: Regular Rate, Rhythm, No Edema, No Gallop, No JVD, No Murmur, Normal Peripheral Pulses Gastrointestinal: Normal Bowel Sounds, No Organomegaly, No Pulsatile Mass, Non Tender, Soft Back: Normal Inspection, No CVA Tenderness, No Vertebral Tenderness Extremity: Normal Capillary Refill, Normal Inspection, Normal Range of Motion, Non Tender, No Calf Tenderness, No Pedal Edema Neurologic/Psychiatric: Alert, Oriented x3, Depressed Affect, Motor Weakness ( left side weakness 0/5 upper and lower extremities) Skin: Normal Color, Warm/Dry Lymphatic: No Adenopathy Results/Procedures Lab Patient resulted labs reviewed. Assessment/Plan Assessment and Plan Assess & Plan/Chief Complaint Assessment: Devastating CVA with left sided weakness PAF HTN Chronic pain Plan: IRF Home meds BM tx DC cath Diagnosis/Problems Diagnosis/Problems (1) Cerebrovascular accident (CVA) with left hemiparesis Status: Acute (2) Anticoagulant long-term use Status: Chronic (3) Paroxysmal atrial fibrillation Status: Chronic (4) Hypertension Status: Chronic Qualifiers: Hypertension type: essential hypertension Qualified Codes: I10 - Essential (primary) hypertension (5) Hyperlipidemia Status: Chronic Qualifiers: Hyperlipidemia type: mixed hyperlipidemia Qualified Codes: E78.2 - Mixed hyperlipidemia (6) Back pain Status: Chronic Qualifiers: Back pain location: back pain in unspecified location Chronicity: unspecified Back pain laterality: unspecified Qualified Codes: M54.9 - Dorsalgia, unspecified (7) CVA, old, facial weakness Status: Chronic Clinical Quality Measures DVT/VTE Risk/Contraindication: Risk Factor Score Per Nursin RFS Level Per Nursing on Admit: 4+=Very High Stroke: Date of last known well: Apr 28, 2018 Time of last known well: 16:00 SANDY WILLIS DO May 01, 2018 09:47
[2018-05-01] MEDS: CLOPIDOGREL 75 MG (PLAVIX) TABLET PO SCH (09:49)
[2018-05-01] MEDS: ACETAMINOPHEN 500 MG TAB (TYLENOL) PO PRN ×2 (09:51→16:51)
[2018-05-01] MEDS: POLYETHYLENE GLYCOL 17 GM (MIRALAX) PACK PO SCH ×2 (10:10→20:04)
[2018-05-01] MEDS: LACTULOSE SYRUP 10GM/15ML (ENULOSE) 30ML UDC PO SCH ×2 (10:10→20:04)
[2018-05-01] MEDS: SENNA W/DOCUSATE (SENOKOT S) TABLET PO SCH ×2 (10:10→20:05)
--- NOTE | 2018-05-01 13:28 | Occupational Therapy Eval ---
OT Evaluation-General/PLF Medical Diagnosis Admission Date Apr 29, 2018 at 11:55 Medical Diagnosis: CVA Onset Date: Apr 29, 2018 Therapy Diagnosis Therapy Diagnosis: Left sided weakness Height/Weight Height (Feet): 5 Height (Inches): 4.00 Weight (Pounds): 170 Weight (Ounces): 0.0 Precautions Precautions/Isolations: Fall Prevention, Standard Precautions Safety Interventions: Bed Exit Alarm Weight Bear Status Weight Bearing Restriction: Weight Bearing/Tolerated Referral Physician: Dr. You Referral Reason: Activity Tolerance, Self Care, Evaluation/Treatment, Strengthening/ROM Medical History Pertinent Medical History: Arthritis, CVA (6 previous strokes), GERD, HTN Additional Medical History Valvular heart disease, hiatal hernia Current History Pt. had CVA with left sided weakness. Reviewed History: Yes Social History Home: Single Level Current Living Status: Alone Entry Into Home: Level Entry ADL-Prior Level of Function Therapy Code Descriptions/Definitions Functional [place] Measure: 0=Not Assessed/NA 4=Minimal Assistance 1=Total Assistance 5=Supervision or Setup 2=Maximal Assistance 6=Modified [place] 3=Moderate Assistance 7=Complete [place] Therapy Quality Codes: 6 Independent with activity with or without an assistive device 5 Patient requires set up or clean up by helper. Patient completes activity by themselves 4 Supervision or touching assist (CGA). [place] provide cues , steadying assist 3 The helper provides less than half the effort to complete the activity 2 The helper provides more than half the effort to complete the activity 1 Dependent. The helper does all the effort to complete an activity 7 Patient refused to complete or attempt activity 9 The patient did not perform the activity before the current illness or injury 88 Not attempted due to Medical conditions or safety concerns Functional Abilities and Goals: Independent: Patient completed the activities by him/herself, with or without an assistive device, with no assistance from a helper. Needed Some Help: Patient needed partial assistance from another person to complete activities. Dependent: A helper completed the activities for the patient. Unknown: Not Applicable: ADL PLOF Comments Pt. states that she was independent with daily tasks prior to this CVA. Self Care: Independent Functional Cognition: Independent DME/Equipment: Shower DME/Equipment Comments Pt. has a walker but does not use it. Drive Self: Yes OT Current Status Subjective Pt. states that she is "not very good." Does not report pain level. Appearance Pt. is up in chair. Is encouraged to keep eyes open during treatment. Noted that pt. is groggy. States, "I am so tired." Mental Status/Objective Patient Orientation: Unable to Assess Current Hand Dominance: Right Upper Extremity ROM Right- WFL Left- Flaccid. No active movement. Upper Extremity Sensation Pt. reports that she feels light touch sensation on left UE. However, more in depth testing to be completed. ADL-Treatment Therapy Code Descriptions/Definitions Functional [place] Measure: 0=Not Assessed/NA 4=Minimal Assistance 1=Total Assistance 5=Supervision or Setup 2=Maximal Assistance 6=Modified [place] 3=Moderate Assistance 7=Complete [place] Therapy Quality Codes: 6 Independent with activity with or without an assistive device 5 Patient requires set up or clean up by helper. Patient completes activity by themselves 4 Supervision or touching assist (CGA). [place] provide cues , steadying assist 3 The helper provides less than half the effort to complete the activity 2 The helper provides more than half the effort to complete the activity 1 Dependent. The helper does all the effort to complete an activity 7 Patient refused to complete or attempt activity 9 The patient did not perform the activity before the current illness or injury 88 Not attempted due to Medical conditions or safety concerns Eating (FIM): 5 (Pt. and family reports that pt. was able to eat her lunch on her own using right hand.) Grooming (FIM): 2 (OT brushed pt's hair for her.) Toileting (FIM): 1 Transfers (B, C, W/C) (FIM): 1 Toilet/Commode Transfer (FIM): 1 Pt. up in chair. Noted that pt. does not attend to left side. Does not turn head to left side unless prompted. Does not see OT in peripheral vision on left side. Pt. agrees to attempt to toilet. Stood with max/dependent assistance and pivoted to right side with OT in front of pt. Sat on BSC and nursing present to remove catheter. Gown changed and pt. lightly washed with wipes. Pt. does not initiate assisting. Unable to lift left UE. Nursing donned clean brief and after sitting for some time, OT stood with pt. while nursing cleansed bottom and pulled up pants. Stood one more time to position self well in chair. Pillows added to prop pt. up and assist her. Spoke with daughter and son in law about left sided neglect, and to attend to her on left side to encourage her to turn head that way/left sided awareness. All needs are met in room. Education OT Patient Education: Correct positioning, Disease process, Instructions to caregiver, Modified ADL techniques, Progress toward Goal/Update tx plan, Purpose of tx/functional activities, Reviewed precautions, Rehab process, Safety issues, Transfer techniques Teaching Recipient: Patient, Family Teaching Methods: Demonstration, Discussion Response to Teaching: Verbalize Understanding, Return Demonstration OT Short Term Goals Short Term Goals Time Frame: May 15, 2018 Eating(FIM): 5 Grooming(FIM): 5 Bathing(FIM): 3 Upper Body Dressing(FIM): 3 Lower Body Dressing(FIM): 3 Toileting(FIM): 3 Transfers (B,C,W/C) (FIM): 3 Toilet/Commode Transfer(FIM): 3 Shower Transfer(FIM): 3 Additional Short Term Goals: 1-Demonstrate ADL Tasks, 2-Verbalize Understanding , 3-ImproveStrength/Sarah 1=Demonstrate adherence to instructed precautions during ADL tasks. 2=Patient will verbalize/demonstrate understanding of assistive devices/ modifications for ADL. 3=Patient will improve strength/tolerance for activity to enable patient to perform ADL's. OT Detention Goals [employer] Goals Time Frame: May 29, 2018 Eating (FIM): 6 Grooming(FIM): 6 Bathing(FIM): 5 Upper Body Dressing(FIM): 5 Lower Body Dressing(FIM): 5 Toileting(FIM): 6 Transfers (B,C,W/C) (FIM): 5 Toilet/Commode Transfer(FIM): 5 Shower Transfer(FIM): 5 Additional Goals: 1-Demonstrate ADL Tasks, 2-Verbalize Understanding, 3- ImproveStrength/Sarah 1=Demonstrate adherence to instructed precautions during ADL tasks. 2=Patient will verbalize/demonstrate understanding of assistive devices/ modifications for ADL. 3=Patient will improve strength/tolerance for activity to enable patient to perform ADL's. OT Education/Plan Problem List/Assessment Assessment: Decreased Activ Tolerance, Decreased Safety Aware, Decreased UE Strength, Dependent Transfers, Impaired Bed Mobility, Impaired Cognition, Impaired Coordination, Impaired Funct Balance, Impaired I ADL's, Impaired Self- Care Skills, Restricted Funct UE ROM, Visual-Perceptual Deficit Discharge Recommendations Plan/Recommendations: Continue POC Therapy D/C Recommendations: Acute Rehab Treatment Plan/Plan of Care Treatment,Training & Education: Yes Patient would benefit from OT for education, treatment and training to promote independence in ADL's, mobility, safety and/or upper extremity function for ADL' s. Plan of Care: ADL Retraining, Caregiver Training, Cognitive Retraining, Functional Mobility, UE Funct Exercise/Act, UE Neuromus Re-Ed/Coord, Visual/ Perceptual Retrain Treatment Duration: May 29, 2018 Frequency: 5 times per week Estimated Hrs Per Day: .5 hour per day Agreement: Yes Rehab Potential: Fair Time/GCodes Start Time: 11:35 Stop Time: 12:15 Total Time Billed (hr/min): 40 Billed Treatment Time 1, EVH x 15minutes, ADL x 25minutes SON ALLAN OT May 01, 2018 13:28
--- NOTE | 2018-05-01 14:17 | Physical Therapy Daily Note ---
PT Daily Note-Current Subjective Pt in recliner with daughter in room and agreed to PT. Mental Status Patient Orientation: Person, Place, Situation, Normal For Age Transfers Therapy Code Descriptions/Definitions Functional [place] Measure: 0=Not Assessed/NA 4=Minimal Assistance 1=Total Assistance 5=Supervision or Setup 2=Maximal Assistance 6=Modified [place] 3=Moderate Assistance 7=Complete [place] Therapy Quality Codes: 6 Independent with activity with or without an assistive device 5 Patient requires set up or clean up by helper. Patient completes activity by themselves 4 Supervision or touching assist (CGA). [place] provide cues , steadying assist 3 The helper provides less than half the effort to complete the activity 2 The helper provides more than half the effort to complete the activity 1 Dependent. The helper does all the effort to complete an activity 7 Patient refused to complete or attempt activity 9 The patient did not perform the activity before the current illness or injury 88 Not attempted due to Medical conditions or safety concerns Transfers (B, C, W/C) (FIM): 1 Supine to/from Sit: 1 Sit to/from Stand: 1 Weight Bearing Right Lower Extremity: Right Full Weight Bearing Left Lower Extremity: Left Full Weight Bearing Exercises Supine Ex: Ankle pumps, Heel Slides Supine Reps: 10 Assessment Current Status: Poor Progress Pt still presents with L neglect. Pt has hard time looking to the left. Pt agreed to getting back in bed and resting. Pt was dependent A x2 from recliner to EOB. Pt requires max A to maintain sitting balance. Pt dependent A x2 from EOB to supine. Pt able to AROM for ankle pumps and heel slides. Pt PROM for ankle pumps and heels slides. Pt is in bed with all needs met and daughter in room. PT Short Term Goals Short Term Goals Time Frame: May 08, 2018 Transfers (B,C,W/C) (FIM): 3 Gait (FIM): 1 Distance (FIM): 1=up to 49 ft Gait Distance Comment: 20' Gait Level of Assist: 3 Gait Assistive Device: FWW, Walker Jose Luis PT Plan Problem List Problem List: Activity Tolerance, Functional Strength, Safety, Balance, Gait, Transfer, Bed Mobility, ROM Treatment/Plan Treatment Plan: Continue Plan of Care Treatment Plan: Bed Mobility, Education, Functional Activity Sarah, Functional Strength, Gait, Safety, Therapeutic Exercise, Transfers Treatment Duration: May 08, 2018 Frequency: 11 times per week Estimated Hrs Per Day: .25 hour per day Patient and/or Family Agrees t: Yes Time/GCodes Time In: 1335 Time Out: 1350 Total Billed Treatment Time: 15 Total Billed Treatment 1 visit FA 15 min FELICITA SINGH PT May 01, 2018 14:17
--- NOTE | 2018-05-01 15:40 | NUR ---
Pastoral care visit, offered prayer and support.
[2018-05-01] MEDS: RIVAROXABAN 20 MG TABLET (XARELTO) PO SCH (16:07)
--- NOTE | 2018-05-01 16:20 | NUR ---
Inpatient rehab evaluation Patient appears appropriate for admission to the ARU. She does have a managed care insurance and will require prior authorization. Prior authorization has been started.
[2018-05-01] MEDS: ATORVASTATIN 20 MG (LIPITOR) TABLET PO SCH (20:07)
[2018-05-02 00:45] VITALS: BP 134/62
[2018-05-02 04:00] VITALS: BP 124/62
[2018-05-02] MEDS: PANTOPRAZOLE 40 MG (PROTONIX) TAB PO SCH (05:57)
[2018-05-02 06:38] LABS: BASOPHILS % (AUTO) 1 % (0-10); EOSINOPHILS # (AUTO) 0.2 10^3/uL (0.0-0.3); EOSINOPHILS % (AUTO) 3 % (0-10); HEMATOCRIT 37 % (35-52); HEMOGLOBIN 10.9 G/DL (11.5-16.0); LYMPHOCYTES # (AUTO) 1.9 X 10^3 (1.0-4.0); LYMPHOCYTES % (AUTO) 30 % (12-44); MEAN CORPUSCULAR HEMOGLOBIN 25 PG (25-34); MEAN CORPUSCULAR HGB CONC 29 G/DL (32-36); MEAN CORPUSCULAR VOLUME 86 FL (80-99); MEAN PLATELET VOLUME 10.8 FL (7.4-10.4); MONOCYTES # (AUTO) 0.7 X 10^3 (0.0-1.0); MONOCYTES % (AUTO) 11 % (0-12); NEUTROPHILS # (AUTO) 3.5 X 10^3 (1.8-7.8); NEUTROPHILS % (AUTO) 56 % (42-75); PLATELET COUNT 154 10^3/uL (130-400); RED CELL DISTRIBUTION WIDTH 14.9 % (10.0-14.5); WHITE BLOOD COUNT 6.3 10^3/uL (4.3-11.0)
[2018-05-02 07:08] LABS: ALBUMIN 3.7 GM/DL (3.2-4.5); BILIRUBIN,TOTAL 0.4 MG/DL (0.1-1.0); CALCIUM 9.8 MG/DL (8.5-10.1); CREATININE SERUM 1.88 MG/DL (0.60-1.30); POTASSIUM 4.9 MMOL/L (3.6-5.0); TOTAL PROTEIN 6.2 GM/DL (6.4-8.2)
[2018-05-02 08:00] VITALS: BP 123/58
[2018-05-02] MEDS: MAGNESIUM OXIDE (MAG-OX)400 MG TAB PO SCH ×2 (08:08→17:12)
[2018-05-02] MEDS: BRIMONIDINE 0.2% (ALPHAGAN) OPHTH SOLN 5 ML BTL OU SCH ×2 (08:08→21:08)
[2018-05-02] MEDS: LATANOPROST 0.005% (XALATAN) OPHTH SOLN 2.5 ML OU SCH (08:09)
[2018-05-02] MEDS: ASPIRIN E.C. 81 MG (ECOTRIN) TAB PO SCH (08:10)
[2018-05-02] MEDS: SENNA W/DOCUSATE (SENOKOT S) TABLET PO SCH ×2 (08:10→21:09)
[2018-05-02] MEDS: POLYETHYLENE GLYCOL 17 GM (MIRALAX) PACK PO SCH ×2 (08:10→21:09)
[2018-05-02] MEDS: LACTULOSE SYRUP 10GM/15ML (ENULOSE) 30ML UDC PO SCH ×2 (08:10→21:09)
[2018-05-02] MEDS: amLODIPine 5 MG (NORVASC) TAB PO SCH (08:10)
[2018-05-02] MEDS: buPROPion 75 MG (WELLBUTRIN) TAB PO SCH (08:11)
[2018-05-02] MEDS: PENTOXIFYLLINE ER 400 MG (TRENtal) TAB PO SCH (08:11)
[2018-05-02] MEDS: GABAPENTIN 300 MG (NEURONTIN) CAP PO SCH ×2 (08:13→21:07)
--- NOTE | 2018-05-02 09:47 | Progress Note-Hospitalist ---
SANDY WILLIS DO 05/02/18 0946: Subjective HPI/CC On Admission Date Seen by Provider: May 02, 2018 Time Seen by Provider: 09:00 CC: Stroke with left sided weakness HPI: This is a 73yoWF former clinic patient of Dr Kaplan and just recently changed to Dr Weaver at [facility] (but since she was admitted to my service and already saw that patient she will remain on my service instead of moving to [facility] ) who presented to the ER nearly 20 hours after sustaining a significant CVA w/ left sided weakness. She was found by her family in her bed and was brought to the ER via EMS. She has had multiple strokes in the past and REVEAL device placed by Dr Aponte had revealed a rare occurrence of AF so she was placed on Eliquis but when she presented to the ER she was too far out to receive tPA and has sustained a life changing residual deficit on her left side. She previously had right side facial weakness from her prior CVA's. Patient has had multiple tests to evaluate for CVA source in the past and now will be admitted and maintained on anticoagulation and add ASA to prevent further strokes. Pt having muscle spasms and pain so pain meds and Zanaflex and Baclofen have all been added to her MAR to use prn. Pt has had IRF stay before so we will put consult in for IRF to move on Tuesday. Subjective/Events-last exam Patient is in need of intensive rehab Depression setting in Incontinence will be addressed in IRF and bladder training will ensue Denies pain Review of Systems Genitourinary: Incontinence Neurological: Weakness, Incoordination Objective Exam Vital Signs Vital Signs Date Time Temp Pulse Resp B/P (MAP) Pulse Ox O2 Delivery O2 Flow Rate FiO2 05/02/18 16:51 98.1 78 18 109/55 (73) 95 Room Air Capillary Refill : Less Than 3 Seconds General Appearance: No Apparent Distress, WD/WN, Chronically ill HEENT: PERRL/EOMI, Normal ENT Inspection, Pharynx Normal Neck: Full Range of Motion, Normal Inspection, Non Tender, Supple, Carotid Bruit Respiratory: Chest Non Tender, Lungs Clear, Normal Breath Sounds, No Accessory Muscle Use, No Respiratory Distress Cardiovascular: Regular Rate, Rhythm, No Edema, No Gallop, No JVD, No Murmur, Normal Peripheral Pulses Gastrointestinal: Normal Bowel Sounds, No Organomegaly, No Pulsatile Mass, Non Tender, Soft Back: Normal Inspection, No CVA Tenderness, No Vertebral Tenderness Extremity: Normal Capillary Refill, Normal Inspection, Normal Range of Motion, Non Tender, No Calf Tenderness, No Pedal Edema Neurologic/Psychiatric: Alert, Oriented x3, Depressed Affect, Motor Weakness ( left side weakness 0/5 upper and lower extremities) Skin: Normal Color, Warm/Dry Lymphatic: No Adenopathy Results/Procedures Lab Laboratory Tests 05/02/18 05:32 Patient resulted labs reviewed. Assessment/Plan Assessment and Plan Assess & Plan/Chief Complaint Assessment: Devastating CVA with left sided weakness PAF HTN Chronic pain New incontinence Plan: IRF tomorrow once approved by insurance Home meds Diagnosis/Problems Diagnosis/Problems (1) Cerebrovascular accident (CVA) with left hemiparesis Status: Acute (2) Anticoagulant long-term use Status: Chronic (3) Paroxysmal atrial fibrillation Status: Chronic (4) Hypertension Status: Chronic Qualifiers: Hypertension type: essential hypertension Qualified Codes: I10 - Essential (primary) hypertension (5) Hyperlipidemia Status: Chronic Qualifiers: Hyperlipidemia type: mixed hyperlipidemia Qualified Codes: E78.2 - Mixed hyperlipidemia (6) Back pain Status: Chronic Qualifiers: Back pain location: back pain in unspecified location Chronicity: unspecified Back pain laterality: unspecified Qualified Codes: M54.9 - Dorsalgia, unspecified (7) CVA, old, facial weakness Status: Chronic (8) Incontinence of urine Status: Acute Qualifiers: Urinary Incontinence type: unspecified incontinence Qualified Codes: R32 - Unspecified urinary incontinence (9) Depression Status: Acute Qualifiers: Depression Type: unspecified Qualified Codes: F32.9 - Major depressive disorder, single episode, unspecified Clinical Quality Measures DVT/VTE Risk/Contraindication: Risk Factor Score Per Nursin RFS Level Per Nursing on Admit: 4+=Very High Stroke: Date of last known well: Apr 28, 2018 Time of last known well: 16:00 KRYSTYNA MAE MEDICAL STUDENT 05/02/18 1331: Subjective HPI/CC On Admission CC: CVA w/ L sided weakness HPI: This is a 73 yo white female who was brought to the ER approximately 20 hours after experiencing severe L sided weakness consistent with stroke. She has had previous CVAs and was placed on Eliquis for suspected Afib, managed by Dr. Aponte. tPA was held as pt was outside the 3 hour treatment window. She is being maintained on ASA, Eliquis. She is experiencing painful spasms in her legs. These are being treated with Zanaflex and Baclofen. Plan is for inpatient rehab and further workup for source of emboli. Dr. Aponte performed Carotid Doppler US but no clinically significant stenosis was identified. Dr. Aponte would like to perform CTA of neck to r/o thrombus more proximal to the aorta below the clavicle, but w/ patient's chronic kidney disease this is not currently being pursued. Subjective/Events-last exam Pt states she feels worse than yesterday, more cramping in legs and L hip is contracted She does think she has regained any strength She expressed disappointment in the length of time it took for nursing staff to change her Depends. I passed this along to Dr. Willis. Review of Systems General: No Chills HEENT: No Head Aches Pulmonary: No Dyspnea Cardiovascular: No: Chest Pain Gastrointestinal: No: Nausea, Vomiting, Constipation Genitourinary: No Dysuria Musculoskeletal: leg pain Neurological: Weakness; No: Change in speech, Confusion Objective Exam General Appearance: No Apparent Distress, WD/WN HEENT: PERRL/EOMI, Normal ENT Inspection Neck: Full Range of Motion, Normal Inspection, Non Tender Respiratory: Chest Non Tender, Lungs Clear, Normal Breath Sounds, No Respiratory Distress Cardiovascular: Regular Rate, Rhythm, No Edema, No Murmur, Normal Peripheral Pulses Gastrointestinal: Normal Bowel Sounds, Non Tender, Soft Extremity: Normal Capillary Refill, Non Tender, No Calf Tenderness, No Pedal Edema Neurologic/Psychiatric: Alert, Oriented x3, Depressed Affect, Motor Weakness (0 /5 LUE and LLE) Skin: Normal Color, Warm/Dry Lymphatic: No Adenopathy Results/Procedures Imaging: Reviewed Imaging Films, Reviewed Imaging Report Assessment/Plan Assessment and Plan Assess & Plan/Chief Complaint Assessment: CVA w/ L sided deficit Paroxysmal atrial fibrillation Neurogenic pain HTN Debility Plan: Inpatient rehab to work on transfers, bladder retraining, etc Resume home meds Diagnosis/Problems Diagnosis/Problems (1) CVA (cerebral infarction) Status: Acute (2) Right sided weakness Status: Acute (3) Paroxysmal atrial fibrillation Status: Chronic (4) Hyperlipidemia Status: Chronic Qualifiers: Hyperlipidemia type: mixed hyperlipidemia Qualified Codes: E78.2 - Mixed hyperlipidemia (5) Hypertension Status: Chronic Qualifiers: Hypertension type: essential hypertension Qualified Codes: I10 - Essential (primary) hypertension (6) Anticoagulant long-term use Status: Chronic (7) CVA, old, facial weakness Status: Chronic SANDY WILLIS DO May 02, 2018 09:46 KRYSTYNA MAE MEDICAL STUDENT May 02, 2018 13:31
--- NOTE | 2018-05-02 11:05 | Physical Therapy Daily Note ---
PT Daily Note-Current Subjective Patient in recliner pre tx, agrees to PT, has no complaints of pain. Appearance Patient in recliner post tx with nurse call, phone, tray, all needs met. Family member in room. Mental Status Patient Orientation: Person, Place, Situation Transfers Therapy Code Descriptions/Definitions Functional [place] Measure: 0=Not Assessed/NA 4=Minimal Assistance 1=Total Assistance 5=Supervision or Setup 2=Maximal Assistance 6=Modified [place] 3=Moderate Assistance 7=Complete [place] Therapy Quality Codes: 6 Independent with activity with or without an assistive device 5 Patient requires set up or clean up by helper. Patient completes activity by themselves 4 Supervision or touching assist (CGA). [place] provide cues , steadying assist 3 The helper provides less than half the effort to complete the activity 2 The helper provides more than half the effort to complete the activity 1 Dependent. The helper does all the effort to complete an activity 7 Patient refused to complete or attempt activity 9 The patient did not perform the activity before the current illness or injury 88 Not attempted due to Medical conditions or safety concerns Transfers (B, C, W/C) (FIM): 1 Sit to/from Stand: 1 Patient stood twice with max assist of 1, stood for about 30 seconds each time, right side flaccid, unable to determine if she was bearing any weight at all on the left side and she says she is having trouble bearing any weight on the right side, which is the stronger side. Weight Bearing Right Lower Extremity: Right Full Weight Bearing Left Lower Extremity: Left Full Weight Bearing Exercises calf stretching left side, left knee extension PROM with encouragement to help participate but she seemed unable to. Neuromuscular Constant cues to lean to the right side when sitting and standing. Treatments standing, stretching/ROM Assessment Current Status: Poor Progress Patient needs max to dependent assist to stand and remain standing. PT Short Term Goals Short Term Goals Time Frame: May 08, 2018 Transfers (B,C,W/C) (FIM): 3 Gait (FIM): 1 Distance (FIM): 1=up to 49 ft Gait Distance Comment: 20' Gait Level of Assist: 3 Gait Assistive Device: FWW, Walker Jose Luis PT Plan Problem List Problem List: Activity Tolerance, Functional Strength, Safety, Balance, Gait, Transfer, Bed Mobility, ROM Treatment/Plan Treatment Plan: Continue Plan of Care Treatment Plan: Bed Mobility, Education, Functional Activity Sarah, Functional Strength, Gait, Safety, Therapeutic Exercise, Transfers Treatment Duration: May 08, 2018 Frequency: 11 times per week Estimated Hrs Per Day: .25 hour per day Patient and/or Family Agrees t: Yes Safety Risks/Education Patient Education: Correct Positioning, Safety Issues Teaching Recipient: Patient Teaching Methods: Demonstration, Discussion Response to Teaching: Reinforcement Needed Time/GCodes Time In: 1040 Time Out: 1155 Total Billed Treatment Time: 15 Total Billed Treatment 1 visit FA KATHRINE MAYFIELD PT May 02, 2018 11:05
--- NOTE | 2018-05-02 11:31 | Cardiology Progress Note ---
Subjective Date Seen by Provider: May 02, 2018 Time Seen by Provider: 11:29 Subjective/Events-last exam Patient is laying down in bed, no new complaint. No chest pain. Review of Systems General: No Chills, No Night Sweats, No Fatigue, No Malaise, No Appetite, No Other HEENT: No Head Aches, No Visual Changes, No Eye Pain, No Ear Pain, No Dysphasia , No Sinus Congestion, No Post Nasal Drip, No Sore Throat, No Other Pulmonary: No Dyspnea, No Cough, No Pleuritic Chest Pain, No Other Cardiovascular: No: Chest Pain, Palpitations, Orthopnea, Paroxysmal Noc. Dyspnea, Edema, Lt Headedness, Other Objective-Cardiology Exam Last Set of Vital Signs Vital Signs Capillary Refill : Less Than 3 Seconds I&O Intake and Output 05/02/18 00:00 Intake Total 2500 ml Output Total 650 ml Balance 1850 ml Intake Oral 2500 ml Output Urine Total 650 ml # Voids 5 General: Alert, Oriented X3, Cooperative, Other HEENT: Atraumatic, PERRLA Neck: Supple, No JVD, No Thyromegaly Lungs: Clear to Auscultation, Normal Air Movement Heart: Regular Rate, Normal S1, Normal S2, No Murmurs Abdomen: Normal Bowel Sounds, Soft, No Tenderness, No Hepatosplenomegaly, No Masses Extremities: No Clubbing, No Cyanosis, No Edema, Normal Pulses, No Tenderness/ Swelling Skin: No Rashes, No Breakdown, No Significant Lesion Neuro: Other (left hemiplegia) Results Lab Laboratory Tests 05/02/18 05:32 A/P-Cardiology Admission Diagnosis Acute CVA Paroxysmal atrial fibrillation Hypertension Hyperlipidemia Assessment/Plan 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 Jaime. Continue to monitor renal function Hypertension, restart home medication monitor blood pressure Hyperlipidemia, monitor lipids Intermediate metabolizer for Plavix History of syncope, no further syncopal episodes were reported Osteoarthritis, rheumatoid arthritis, history of fibromyalgia, history of depression and elevated LPa Clinical Quality Measures DVT/VTE Risk/Contraindication: Risk Factor Score Per Nursin RFS Level Per Nursing on Admit: 4+=Very High Stroke: Date of last known well: Apr 28, 2018 Time of last known well: 16:00 DOMI MARTINEZ MD May 02, 2018 11:31
--- NOTE | 2018-05-02 14:35 | Physical Therapy Daily Note ---
PT Daily Note-Current Subjective Pt in bed with daughter in room and agrees to PT. Reports that she is very tired. Pain Numeric Pain Scale: 0-No Pain Location: No Pain Reported Mental Status Patient Orientation: Person, Place, Situation, Normal For Age Attachments: SCD's Transfers Therapy Code Descriptions/Definitions Functional [place] Measure: 0=Not Assessed/NA 4=Minimal Assistance 1=Total Assistance 5=Supervision or Setup 2=Maximal Assistance 6=Modified [place] 3=Moderate Assistance 7=Complete [place] Therapy Quality Codes: 6 Independent with activity with or without an assistive device 5 Patient requires set up or clean up by helper. Patient completes activity by themselves 4 Supervision or touching assist (CGA). [place] provide cues , steadying assist 3 The helper provides less than half the effort to complete the activity 2 The helper provides more than half the effort to complete the activity 1 Dependent. The helper does all the effort to complete an activity 7 Patient refused to complete or attempt activity 9 The patient did not perform the activity before the current illness or injury 88 Not attempted due to Medical conditions or safety concerns Transfers (B, C, W/C) (FIM): 1 Scootin Rollin Supine to/from Sit: 1 Sit to/from Stand: 1 Weight Bearing Right Lower Extremity: Right Full Weight Bearing Left Lower Extremity: Left Full Weight Bearing Exercises Supine Ex: Ankle pumps, Heel Slides, Hip abd/add Supine Reps: 10 Seated Therapy Exercises: Long arc quads Seated Reps: 10 Assessment Current Status: Poor Progress Pt did become emotional at beginning of tx. Pt was able to perform supine LE ex AROM on RLE and was PROM on LLE. Pt required dependent A x2 to get from supine to EOB. Pt required max A to maintain sitting balance. Pt was dependent A x2 to stand with FWW and maintain standing for 1 min each time x3. Pt was dependent A x2 to return to supine from EOB. Pt seemed to be in better spirits by end of tx session. Pt is now R side-lying with pillow behind back, blanket under LUE and pillow between legs. Pt has all needs met with daughter in room. PT Short Term Goals Short Term Goals Time Frame: May 08, 2018 Transfers (B,C,W/C) (FIM): 3 Gait (FIM): 1 Distance (FIM): 1=up to 49 ft Gait Distance Comment: 20' Gait Level of Assist: 3 Gait Assistive Device: FWW, Walker Jose Luis PT Plan Problem List Problem List: Activity Tolerance, Functional Strength, Safety, Balance, Gait, Transfer, Bed Mobility, ROM Treatment/Plan Treatment Plan: Continue Plan of Care Treatment Plan: Bed Mobility, Education, Functional Activity Sarah, Functional Strength, Gait, Safety, Therapeutic Exercise, Transfers Treatment Duration: May 08, 2018 Frequency: 11 times per week Estimated Hrs Per Day: .25 hour per day Patient and/or Family Agrees t: Yes Time/GCodes Time In: 1355 Time Out: 1420 Total Billed Treatment Time: 25 Total Billed Treatment 1 visit FA 15 min EX 10 min FELICITA SINHG PT May 02, 2018 14:35
--- NOTE | 2018-05-02 14:36 | Occupational Ther Daily Note ---
OT Current Status-Daily Note Subjective Pt resting in bed, states she is tired, but agrees to treatment. Mental Status/Objective Therapy Code Descriptions/Definitions Functional [place] Measure: 0=Not Assessed/NA 4=Minimal Assistance 1=Total Assistance 5=Supervision or Setup 2=Maximal Assistance 6=Modified [place] 3=Moderate Assistance 7=Complete [place] Other Treatment Pt supine to sit. Pt able to assist minimally with bringing right side to EOB, but requires total assist with left UE/LE. Pt sat EOB for ~10minutes to work on balance, trunk control, and posture. Pt requires max assist to maintain balance. Multiple cues for posture. Pt has left side neglect and keeps head turned to right. Able to turn head to left with cues. Dependent for sit to supine and for repositioning in bed. PROM completed left UE. Pt unable to assist , no active movement noted. Pt resting in bed with needs met after session, daughter present. OT Short Term Goals Short Term Goals Time Frame: May 15, 2018 Eating(FIM): 5 Grooming(FIM): 5 Bathing(FIM): 3 Upper Body Dressing(FIM): 3 Lower Body Dressing(FIM): 3 Toileting(FIM): 3 Transfers (B,C,W/C) (FIM): 3 Toilet/Commode Transfer(FIM): 3 Shower Transfer(FIM): 3 Additional Short Term Goals: 1-Demonstrate ADL Tasks, 2-Verbalize Understanding , 3-ImproveStrength/Sarah 1=Demonstrate adherence to instructed precautions during ADL tasks. 2=Patient will verbalize/demonstrate understanding of assistive devices/ modifications for ADL. 3=Patient will improve strength/tolerance for activity to enable patient to perform ADL's. OT Senior Living Goals Senior Living Goals Time Frame: May 29, 2018 Eating (FIM): 6 Grooming(FIM): 6 Bathing(FIM): 5 Upper Body Dressing(FIM): 5 Lower Body Dressing(FIM): 5 Toileting(FIM): 6 Transfers (B,C,W/C) (FIM): 5 Toilet/Commode Transfer(FIM): 5 Shower Transfer(FIM): 5 Additional Goals: 1-Demonstrate ADL Tasks, 2-Verbalize Understanding, 3- ImproveStrength/Sarah 1=Demonstrate adherence to instructed precautions during ADL tasks. 2=Patient will verbalize/demonstrate understanding of assistive devices/ modifications for ADL. 3=Patient will improve strength/tolerance for activity to enable patient to perform ADL's. OT Education/Plan Discharge Recommendations Plan/Recommendations: Continue POC Treatment Plan/Plan of Care Patient would benefit from OT for education, treatment and training to promote independence in ADL's, mobility, safety and/or upper extremity function for ADL' s. Plan of Care: ADL Retraining, Caregiver Training, Cognitive Retraining, Functional Mobility, UE Funct Exercise/Act, UE Neuromus Re-Ed/Coord, Visual/ Perceptual Retrain Treatment Duration: May 29, 2018 Frequency: 5 times per week Estimated Hrs Per Day: .5 hour per day Agreement: Yes Rehab Potential: Fair Time/GCodes Start Time: 13:30 Stop Time: 13:53 Total Time Billed (hr/min): 23 Billed Treatment Time 1 visit, FA(13minutes), EX(10minutes) TELLO CHAIREZ OT May 02, 2018 14:36
[2018-05-02 16:51] VITALS: BP 109/55
[2018-05-02] MEDS ORDERED: RIVAROXABAN 15 MG TABLET (XARELTO) PO SCH (17:00)
[2018-05-02 19:32] VITALS: BP 123/60
[2018-05-02] MEDS: ACETAMINOPHEN 500 MG TAB (TYLENOL) PO PRN (21:06)
[2018-05-02] MEDS: ATORVASTATIN 20 MG (LIPITOR) TABLET PO SCH (21:08)
[2018-05-02 23:29] VITALS: BP 119/56
[2018-05-03 04:00] VITALS: BP 132/60
[2018-05-03] MEDS: PANTOPRAZOLE 40 MG (PROTONIX) TAB PO SCH (05:37)
[2018-05-03 08:00] VITALS: BP 137/65
[2018-05-03] MEDS ORDERED: ASPI-983 PO (08:42)
[2018-05-03] MEDS ORDERED: TIZA4TAB3 PO (08:42)
[2018-05-03] MEDS ORDERED: BACL10TA PO (08:42)
--- NOTE | 2018-05-03 08:43 | Discharge Summary-Hospitalist ---
Diagnosis/Chief Complaint Date of Admission Apr 29, 2018 at 11:55 Date of Discharge Discharge Date: May 03, 2018 Admission Diagnosis Assessment: CVA presenting too late for tPA w/h/o multiple CVA's in past s/p REVEAL device by Dr Aponte and placed on Eliquis along with ASA and Plavix for rare occurrence of AF now w/severe residual of left sided flaccidity Acute muscle spasms due to CVA PAF on Eliquis HTN HLP Plan: ASA Plavix Eliquis PT/OT Dr Aponte consultation IRF Home meds Muscle spasm management Discharge Diagnosis (1) Cerebrovascular accident (CVA) with left hemiparesis Status: Acute (2) Anticoagulant long-term use Status: Chronic (3) Paroxysmal atrial fibrillation Status: Chronic (4) Hypertension Status: Chronic (5) Hyperlipidemia Status: Chronic (6) Back pain Status: Chronic (7) CVA, old, facial weakness Status: Chronic (8) Incontinence of urine Status: Acute (9) Depression Status: Acute Discharge Summary Discharge Physical Exam Allergies: Coded Allergies: No Known Drug Allergies (Verified , 09/08/12) Vitals & I&Os Vital Signs Date Time Temp Pulse Resp B/P (MAP) Pulse Ox O2 Delivery O2 Flow Rate FiO2 05/03/18 10:16 76 18 137/65 98 Room Air 05/03/18 08:00 97.9 General Appearance: No Apparent Distress, WD/WN, Chronically ill HEENT: PERRL/EOMI, Normal ENT Inspection, Pharynx Normal Respiratory: Chest Non Tender, Lungs Clear, Normal Breath Sounds, No Accessory Muscle Use, No Respiratory Distress Cardiovascular: Regular Rate, Rhythm, No Edema, No Gallop, No JVD, No Murmur, Normal Peripheral Pulses Gastrointestinal: Normal Bowel Sounds, No Organomegaly, No Pulsatile Mass, Non Tender, Soft Extremity: Normal Capillary Refill, Normal Inspection, Normal Range of Motion, Non Tender, No Calf Tenderness, No Pedal Edema Skin: Normal Color, Warm/Dry Neurologic/Psychiatric: Alert, Oriented x3, Depressed Affect, Motor Weakness ( left side weakness 0/5 upper and lower extremities) Hospital Course Was the Problem List Reviewed?: Yes Hospital course: This is a Pt that was admitted after suffering a devastating stroke with left sided hemiparesis. Pt was maintained on her home medication of anticoagulation and Dr. Aponte was consulted. Pt was placed on antiplatelet therapy. Pt met criteria for inpatient rehab for intensive monitoring and therapies and will be monitored closely for acute renal insufficiency and hypertension. Pt's catheter was discontinued and bowels were moving at time of transfer. Labs (last 24 hrs) Patient resulted labs reviewed. Imaging: Reviewed Imaging Films, Reviewed Imaging Report Discussion & Recommendations Discharge Planning: <30 minutes discharge planning Discharge Home Medications: Active Scripts Active Aspirin EC (Aspirin) 81 Mg Tablet.dr 81 Mg PO DAILY 30 Days Baclofen 10 Mg Tablet 10 Mg PO TID PRN 30 Days Tizanidine HCl 4 Mg Tablet 4 Mg PO QID PRN 30 Days Reported Magnesium (Magnesium Oxide) 400 Mg Tablet 400 Mg PO BID Bupropion HCl 75 Mg Tablet 75 Mg PO DAILY Xarelto (Rivaroxaban) 20 Mg Tablet 20 Mg PO 1800 Tramadol HCl 50 Mg Tablet 50 Mg PO QID PRN Brimonidine Tartrate 5 Ml Btl 1 Drop OU BID Latanoprost 2.5 Ml Drops 1 Drop OU HS Gabapentin 300 Mg Capsule 300 Mg PO BID Atorvastatin Calcium 20 Mg Tablet 20 Mg PO HS Pantoprazole Sodium 40 Mg Tablet.dr 40 Mg PO DAILY Pentoxifylline 400 Mg Tablet.er 400 Mg PO DAILY Carvedilol 25 Mg Tablet 25 Mg PO BID Amlodipine Besylate 5 Mg Tablet 5 Mg PO HS Instructions to patient/family Please see electronic discharge instructions given to patient. Clinical Quality Measures DVT/VTE Risk/Contraindication: Risk Factor Score Per Nursin RFS Level Per Nursing on Admit: 4+=Very High Stroke: Date of last known well: Apr 28, 2018 Time of last known well: 16:00 Problem Qualifiers (1) Hypertension: Hypertension type: essential hypertension Qualified Codes: I10 - Essential ( primary) hypertension (2) Hyperlipidemia: Hyperlipidemia type: mixed hyperlipidemia Qualified Codes: E78.2 - Mixed hyperlipidemia (3) Back pain: Back pain location: back pain in unspecified location Chronicity: unspecified Back pain laterality: unspecified Qualified Codes: M54.9 - Dorsalgia, unspecified (4) Incontinence of urine: Urinary Incontinence type: unspecified incontinence Qualified Codes: R32 - Unspecified urinary incontinence (5) Depression: Depression Type: unspecified Qualified Codes: F32.9 - Major depressive disorder, single episode, unspecified SANDY WILLIS DO May 03, 2018 08:43
[2018-05-03] MEDS: BRIMONIDINE 0.2% (ALPHAGAN) OPHTH SOLN 5 ML BTL OU SCH (08:53)
[2018-05-03] MEDS: MAGNESIUM OXIDE (MAG-OX)400 MG TAB PO SCH (08:53)
[2018-05-03] MEDS: LATANOPROST 0.005% (XALATAN) OPHTH SOLN 2.5 ML OU SCH (08:56)
[2018-05-03] MEDS: amLODIPine 5 MG (NORVASC) TAB PO SCH (08:57)
[2018-05-03] MEDS: buPROPion 75 MG (WELLBUTRIN) TAB PO SCH (08:57)
[2018-05-03] MEDS: PENTOXIFYLLINE ER 400 MG (TRENtal) TAB PO SCH (08:58)
[2018-05-03] MEDS: GABAPENTIN 300 MG (NEURONTIN) CAP PO SCH (09:02)
[2018-05-03] MEDS: SENNA W/DOCUSATE (SENOKOT S) TABLET PO SCH (09:02)
[2018-05-03] MEDS: ASPIRIN E.C. 81 MG (ECOTRIN) TAB PO SCH (09:02)
[2018-05-03] MEDS: POLYETHYLENE GLYCOL 17 GM (MIRALAX) PACK PO SCH (09:03)
[2018-05-03] MEDS: LACTULOSE SYRUP 10GM/15ML (ENULOSE) 30ML UDC PO SCH (09:03)
--- NOTE | 2018-05-03 09:55 | Cardiology Progress Note ---
Subjective Date Seen by Provider: May 03, 2018 Time Seen by Provider: 09:53 Subjective/Events-last exam Patient sitting on commode at bedside, no new complaints. Being discharged to ARU today. Review of Systems General: No Night Sweats, No Fatigue, No Malaise HEENT: No Visual Changes, No Dysphasia Pulmonary: No Dyspnea, No Cough Cardiovascular: No: Chest Pain, Palpitations, Paroxysmal Noc. Dyspnea, Edema Gastrointestinal: No: Nausea, Vomiting, Abdominal Pain Genitourinary: No Dysuria, No Frequency Musculoskeletal: No: neck pain, back pain Neurological: Weakness; No: Numbness, Change in speech, Confusion Objective-Cardiology Exam Last Set of Vital Signs Vital Signs 05/03/18 05/03/18 08:00 10:16 Temp 97.9 Pulse 76 Resp 18 B/P (MAP) 137/65 Pulse Ox 98 O2 Delivery Room Air Capillary Refill : Less Than 3 Seconds I&O Intake and Output 05/03/18 00:00 Intake Total 1030 ml Output Total 200 ml Balance 830 ml Intake Oral 1030 ml Output Urine Total 200 ml # Voids 4 # Bowel Movements 1 General: Alert, Oriented X3, Cooperative, Other HEENT: Atraumatic, PERRLA Neck: Supple, No JVD, No Thyromegaly Lungs: Clear to Auscultation, Normal Air Movement Heart: Regular Rate, Normal S1, Normal S2, No Murmurs Abdomen: Normal Bowel Sounds, Soft, No Tenderness, No Hepatosplenomegaly, No Masses Extremities: No Clubbing, No Cyanosis, No Edema, Normal Pulses, No Tenderness/ Swelling Skin: No Rashes, No Breakdown, No Significant Lesion Neuro: Other (left hemiplegia) A/P-Cardiology Admission Diagnosis Acute CVA Paroxysmal atrial fibrillation Hypertension Hyperlipidemia Assessment/Plan 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 Jaime. Continue to monitor renal function Hypertension, controlled, continue to monitor blood pressure. Hyperlipidemia, monitor lipids Intermediate metabolizer for Plavix History of syncope, no further syncopal episodes were reported Osteoarthritis, rheumatoid arthritis, history of fibromyalgia, history of depression and elevated LPa Clinical Quality Measures DVT/VTE Risk/Contraindication: Risk Factor Score Per Nursin RFS Level Per Nursing on Admit: 4+=Very High Stroke: Date of last known well: Apr 28, 2018 Time of last known well: 16:00 Supervisory-Addendum Brief Supervisory Addendum Participated in pt care: history, MDM, physical Personally performed: exam, history, MDM Care discussed with: PALOMO Results interpretation: agree with documentation Notes: patient was seen and evaluated, still having weakness on the left side, transferred to IRU, continue on current medication monitor DAPHNIE FORREST May 03, 2018 09:55 DOMI MARTINEZ MD May 03, 2018 14:32
[2018-05-03 10:16] VITALS: BP 137/65
== END 2018-05-03 10:19 | DRG 65 ==
LOC: EDUNIT# 10:27 → ER 10:28 → 4TH 11:55
PROVIDERS: ADMIT Internal Medicine; ATTEND Internal Medicine
DX: I63.531 Cerebral infarction due to unspecified occlusion or stenosis of right posterior cerebral artery (principal); G81.94 Hemiplegia, unspecified affecting left nondominant side; Q21.1 Atrial septal defect; M62.838 Other muscle spasm; I69.392 Facial weakness following cerebral infarction; R29.705 NIHSS score 5; I48.0 Paroxysmal atrial fibrillation; I10 Essential (primary) hypertension; N18.9 Chronic kidney disease, unspecified; E78.2 Mixed hyperlipidemia; R32 Unspecified urinary incontinence; F32.9 Major depressive disorder, single episode, unspecified; M54.9 Dorsalgia, unspecified; I65.23 Occlusion and stenosis of bilateral carotid arteries; K44.9 Diaphragmatic hernia without obstruction or gangrene; M19.91 Primary osteoarthritis, unspecified site; H40.9 Unspecified glaucoma; F41.9 Anxiety disorder, unspecified; D64.9 Anemia, unspecified; M06.9 Rheumatoid arthritis, unspecified; M79.7 Fibromyalgia; M79.2 Neuralgia and neuritis, unspecified; Z79.01 Long term (current) use of anticoagulants; Z87.891 Personal history of nicotine dependence
CPT/HCPCS: 36415; 51702; 70450; 71045; 80053; 80061; 81000; 82962; 83880; 84484; 85025; 85027; 85379; 85610; 85730; 93005; 93041; 93306

== ENCOUNTER 2018-05-02 16:03 | Inpatient (IN) | payer MEDICARE ==
[~2018-05-02] VITALS: Ht 165.1 cm; Wt 74.2 kg
[~2018-05-02 16:03] MED LIST changes: +BRIMON0.2 OU; +GABA-488 PO; +MAGN400T39 PO; +RIVA20TA PO
[2018-05-03] MEDS ORDERED: TIZA4TAB3 PO (08:42)
[2018-05-03] MEDS ORDERED: ASPI-983 PO (08:42)
[2018-05-03] MEDS ORDERED: BACL10TA PO (08:42)
--- NOTE | 2018-05-03 10:11 | NUR ---
Admitted to room , with an admitting diagnosis of CVA , on 05-03-18 from 4th floor via , accompanied by .DANIELA WORLEY introduced to surroundings, call light, bed controls, phone, TV, temperature control, lights, meal times, smoking policy, visitor policy, side rail policy, bathrooms and showers. Patient Rights given to patient in the handbook.DANIELA WORLEY verbalizes understanding that [facility] is not responsible for the loss or damage to any personal effects or valuables that are kept in the patients posession during their hospitalization. The following Patient Care Plans were discussed with the : Discharge Planning, ,, and . DANIELA WORLEY verbalizes understanding of Interdisciplinary Patient Education. Patient and/or family were informed about the Rapid Response Team and its purpose. Patient received Patient Rights Booklet, which includes Privacy Act Statement and Data Collection Information Summary.
--- NOTE | 2018-05-03 11:57 | Physical Therapy Evaluation ---
PT Evaluation-General Medical Diagnosis Admission Date May 03, 2018 at 11:30 Medical Diagnosis: CVA, L hemiparesis Onset Date: Apr 29, 2018 Therapy Diagnosis Therapy Diagnosis: weakness, gait deviation, decreased mobility Height/Weight Height (Feet): 5 Height (Inches): 4.00 Weight (Pounds): 170 Weight (Ounces): 0.0 Precautions Precautions/Isolations: Fall Prevention, Standard Precautions Weight Bear Status Right Lower Extremity: Right Full Weight Bearing Left Lower Extremity: Left Full Weight Bearing Referral Physician: Dr. You Reason for Referral: Evaluation/Treatment Medical History Pertinent Medical History: Arthritis, CVA, GERD, HTN Additional Medical History Valvular Heart Disease, Heart Murmur, Hiatal hernia, Anemic Reviewed History: Yes Social History Home: Single Level Current Living Status: Alone Prior/[facility] Prior Level of Function Therapy Code Descriptions/Definitions Functional [place] Measure: 0=Not Assessed/NA 4=Minimal Assistance 1=Total Assistance 5=Supervision or Setup 2=Maximal Assistance 6=Modified [place] 3=Moderate Assistance 7=Complete [place] Therapy Quality Codes: 6 Independent with activity with or without an assistive device 5 Patient requires set up or clean up by helper. Patient completes activity by themselves 4 Supervision or touching assist (CGA). [place] provide cues , steadying assist 3 The helper provides less than half the effort to complete the activity 2 The helper provides more than half the effort to complete the activity 1 Dependent. The helper does all the effort to complete an activity 7 Patient refused to complete or attempt activity 9 The patient did not perform the activity before the current illness or injury 88 Not attempted due to Medical conditions or safety concerns Functional Abilities and Goals: Independent: Patient completed the activities by him/herself, with or without an assistive device, with no assistance from a helper. Needed Some Help: Patient needed partial assistance from another person to complete activities. Dependent: A helper completed the activities for the patient. Unknown: Not Applicable: Bed Mobility: 7 Transfers (B,C,W/C) (FIM): 7 Gait: 7 Indoor Mobility (Ambulation): Independent PT Evaluation-Current Subjective Pt in w/c in room and agrees to PT taking her to ARU. Pain Numeric Pain Scale: 3 Location: Left Location Body Site: Shoulder Objective Patient Orientation: Person, Place, Situation ROM/Strength ROM Lower Extremities WNL Strenght Lower Extremities Patient is not able to move left leg and right leg is 1-2/5 gross Integumentary/Posture Posture Leans to R, L neglect Neuromuscular (Tone, Coordination, Reflexes) LLE flaccid Sensory Hearing: Functional Sensation Right Lower Extremit: Intact Sensation Left Lower Extremity: Impaired Transfers Therapy Code Descriptions/Definitions Functional [place] Measure: 0=Not Assessed/NA 4=Minimal Assistance 1=Total Assistance 5=Supervision or Setup 2=Maximal Assistance 6=Modified [place] 3=Moderate Assistance 7=Complete [place] Therapy Quality Codes: 6 Independent with activity with or without an assistive device 5 Patient requires set up or clean up by helper. Patient completes activity by themselves 4 Supervision or touching assist (CGA). [place] provide cues , steadying assist 3 The helper provides less than half the effort to complete the activity 2 The helper provides more than half the effort to complete the activity 1 Dependent. The helper does all the effort to complete an activity 7 Patient refused to complete or attempt activity 9 The patient did not perform the activity before the current illness or injury 88 Not attempted due to Medical conditions or safety concerns Transfers (B, C, W/C) (FIM): 1 Scootin Supine to/from Sit: 1 Sit to/from Stand: 1 Sit to Lying (QC): 1 Lying to Sitting/Side of Bed(Q: 1 Sit to Stand (QC): 1 Gait Does the Patient Walk?: No and Walking Goal IS indicated (Any functional ambulation is not likely but a goal will be set.) Mode of Locomotion: Wheelchair Anticipated Mode of Locomotion: Wheelchair Gait (FIM): 0 Wheelchair Training Does the Pt Use a Wheelchair?: Yes Wheelchair (FIM): 0 Wheelchair Distance (FIM): 0=does not occure Distance: 150' Wheelchair Level of Assist: 1 Type of Wheelchair: Manual Stairs If not tested on admit;explain Patient is not ambulatory at this time. Balance Sitting Static: Poor Sitting Dynamic: Poor Standing Static: Poor Standing Dynamic: Poor Treatment Co-treated with OT from 10:20- 11:10 due to patient complexity, PT eval was from [id number]. PT focused on transfer techniques, LE ROM and strength, standing balance, and sitting balance. OT focused on dressing, grooming, UE ROM and strength, and UE WB. Assessment/Needs Pt requires dependent A x2 for all transfers and bed mobility. Pt requires dependent A for sitting balance. Pt is able to perform supine LE ex with RLE ( heel slides, hip abduction) x10 indep. Pt requires PROM for LLE during supine ex. Pt required dependent A x2 for sit<>stand from w/c to parallel bars x4. Pt continues to neglect L side. Pt is only able to correct posture minimally and cannot hold corrected posture for more than a few seconds. Pt had a hard time staying awake during tx when sitting or supine. Pt is very exhausted and fatigued by end of tx. Pt is now in bed with all needs met. Patient was also dressed with dependence Rehab Potential: Poor Post Rehab Potential-Barriers: L neglect, co-morbidities PT Short Term Goals Short Term Goals Time Frame: May 10, 2018 Transfers (B,C,W/C) (FIM): 2 Gait (FIM): 0 Distance (FIM): 0=does not occure Wheelchair (FIM): 1 Wheelchair distance (FIM): 1=up to 49 ft Wheelchair Distance: 25' Wheelchair Level of Assist: 3 PT Medicare Insurance Specialist Goals Snf Goals PT Medicare Insurance Specialist Goals Time Frame: May 27, 2018 Transfers (B,C,W/C) (FIM): 3 Sit to Lying (QC): 2 Lying-Sitting on Side/Bed(QC): 2 Sit to Stand (QC): 2 Rollin Roll Left to Right (QC): 2 Chair/[place] Xfer(QC): 2 Car Transfer (QC): 2 Does the Patient Walk: No and Walking Goal IS indicated Gait (FIM): 1 Gait distance (FIM): 1=up to 49 ft Distance: 10' Walk 10 feet (QC): 3 Gait Level of Assist: 3 Gait Assistive Device: Walker Jose Luis Wheelchair (FIM): 2 Wheelchair distance (FIM): 0=469-53 ft Distance: 50' Wheelchair Level of Assist: 4 Wheel 50 feet with 2 turns (QC: 3 PT Plan Problem List Problem List: Activity Tolerance, Functional Strength, Safety, Balance, Gait, Transfer, Bed Mobility, ROM Treatment/Plan Treatment Plan: Continue Plan of Care Treatment Plan: Bed Mobility, Concurrent Therapy, Education, Functional Activity Sarah, Functional Strength, Group Therapy, Gait, Safety, Therapeutic Exercise, Transfers Treatment Duration: May 27, 2018 Frequency: At least 5 of 7 days/Wk (IRF) Estimated Hrs Per Day: 1.5 hours per day Patient and/or Family Agrees t: Yes Safety Risks/Education Patient Education: Transfer Techniques, Correct Positioning, W/C Management, Safety Issues Teaching Recipient: Patient, Family Teaching Methods: Demonstration, Discussion Response to Teaching: Reinforcement Needed Discharge Recommendations Plan Patient will perform bed mobility and transfer training, balance and endurance training, functional strengthening, stair training, gait training, and education to improve functional mobility and independence at home. Therapy D/C Recommendations: Home w/ Family Support, Fpc Placement, Senior Care (TCU/NH) Time/GCodes Time In: 1000 Time Out: 1110 Total Billed Treatment Time: 60 Total Billed Treatment 1 visit EVM 10' FA 50' KATHRINE ODONNELL PT May 03, 2018 11:57
[2018-05-03] MEDS ORDERED: LOPERAMIDE 2 MG (IMODIUM) CAP PO PRN (12:15)
[2018-05-03] MEDS ORDERED: ONDANSETRON 4 MG (ZOFRAN) ORAL DISSOLVE TAB PO PRN (12:15)
[2018-05-03] MEDS ORDERED: BACLOFEN 10 MG (LIORESAL) TAB PO PRN (12:15)
[2018-05-03] MEDS ORDERED: diphenhydrAMINE 25 MG TAB (BENADRYL) PO PRN (12:15)
[2018-05-03] MEDS ORDERED: ALPRAZolam 0.25 MG (XANAX) TAB PO PRN (12:15)
[2018-05-03] MEDS ORDERED: ONDANSETRON 4 MG/2 ML (SDV) Z0FRAN IVP PRN (12:15)
[2018-05-03] MEDS ORDERED: PATIENT MAY USE OWN MEDS, ALL MC SCH (12:15)
[2018-05-03] MEDS ORDERED: MELATONIN 3 MG TABLET PO PRN (12:15)
[2018-05-03] MEDS ORDERED: DOCUSATE SODIUM 100 MG (COLACE) CAP PO PRN (12:15)
[2018-05-03] MEDS ORDERED: CALCIUM CARBONATE 500 MG (TUMS) TAB.CHEW PO PRN (12:15)
--- NOTE | 2018-05-03 13:14 | Occupational Therapy Eval ---
OT Evaluation-General/PLF Medical Diagnosis Admission Date May 03, 2018 at 11:30 Medical Diagnosis: CVA, L hemiparesis Onset Date: Apr 29, 2018 Therapy Diagnosis Therapy Diagnosis: weakness, impaired self care skills Height/Weight Height (Feet): 5 Height (Inches): 4.00 Weight (Pounds): 170 Weight (Ounces): 0.0 Precautions Precautions/Isolations: Fall Prevention, Standard Precautions Referral Physician: Dr. You Medical History Pertinent Medical History: Arthritis, CVA, GERD, HTN Additional Medical History valvular heart disease, hiatal hernia Social History Home: Single Level Current Living Status: Alone ADL-Prior Level of Function Therapy Code Descriptions/Definitions Functional [place] Measure: 0=Not Assessed/NA 4=Minimal Assistance 1=Total Assistance 5=Supervision or Setup 2=Maximal Assistance 6=Modified [place] 3=Moderate Assistance 7=Complete [place] Therapy Quality Codes: 6 Independent with activity with or without an assistive device 5 Patient requires set up or clean up by helper. Patient completes activity by themselves 4 Supervision or touching assist (CGA). [place] provide cues , steadying assist 3 The helper provides less than half the effort to complete the activity 2 The helper provides more than half the effort to complete the activity 1 Dependent. The helper does all the effort to complete an activity 7 Patient refused to complete or attempt activity 9 The patient did not perform the activity before the current illness or injury 88 Not attempted due to Medical conditions or safety concerns Functional Abilities and Goals: Independent: Patient completed the activities by him/herself, with or without an assistive device, with no assistance from a helper. Needed Some Help: Patient needed partial assistance from another person to complete activities. Dependent: A helper completed the activities for the patient. Unknown: Not Applicable: ADL PLOF Comments Independent prior to admission Self Care: Independent DME/Equipment: Shower OT Current Status Subjective Pt agreeable to therapy this morning. Reports being tired. Mental Status/Objective Patient Orientation: Person Current Hand Dominance: Right Upper Extremity ROM Right UE WFL Left UE- no active movement noted. PROM is grossly functional Upper Extremity Coordination Impaired left UE Upper Extremity Strength Right UE-4/5 Left UE 0/5 ADL-Treatment ADL-Current Pt participated in dressing tasks while seated in w/c. Pt has poor sitting balance and leans to left. Total assist required to thread bilateral UE into sleeves and pull shirt over head. Dependent to thread bilateral LE into shorts. Stood with assist x2 for pant hike. Pt has poor balance and is dependent to maintain standing balance during pant hike. Total assist for socks. Pt combed hair with mod assist. Washed face with SBA. To therapy gym via w/c. Transfer w/c <-> edge of mat with assist x2. Pt dependent for supine <-> sit. Pt sat EOB to promote increased core strength and trunk control. Pt has poor sitting balance and posture. Multiple cues for posture and safety. Pt sit to stand x4 trials in parallel bars. Pt requires assist x2 for sit to stand and for standing balance. Pt has poor standing posture. Pt fatigues with activity and requires rest breaks. Pt demonstrates left neglect. Pt keeps head turned to right, but is able to scan to left with multiple cues. Pt returned to room, transferred to EOB with assist x2. Dependent for sit to supine. Pt resting in bed with needs met after session. Co-treat with PT secondary to level of skilled assist required and decreased activity tolerance. OT focusing on ADL completion, UE management, and safety. PT focusing on transfers, balance, LE management and safety. Grooming (FIM): 3 Upper Body Dressing (FIM): 1 Upper Body Dressing (QC): 1 Lower Body Dressing (FIM): 1 Lower Body Dressing (QC): 1 On/Off Footwear (QC): 1 Toilet/Commode Transfer (FIM): 1 Education OT Patient Education: Rehab process Teaching Recipient: Patient Teaching Methods: Discussion Response to Teaching: Reinforcement Needed OT Short Term Goals Short Term Goals Time Frame: May 10, 2018 Grooming(FIM): 4 Bathing(FIM): 2 Upper Body Dressing(FIM): 2 Lower Body Dressing(FIM): 2 Toileting(FIM): 2 Toilet/Commode Transfer(FIM): 2 Additional Short Term Goals: 1-Demonstrate ADL Tasks, 2-Verbalize Understanding , 3-ImproveStrength/Sarah 1=Demonstrate adherence to instructed precautions during ADL tasks. 2=Patient will verbalize/demonstrate understanding of assistive devices/ modifications for ADL. 3=Patient will improve strength/tolerance for activity to enable patient to perform ADL's. OT Jail Goals Travel Accommodations Rater Goals Time Frame: May 31, 2018 Eating (FIM): 5 Eating (QC): 5 Groomin Oral Hygiene (QC): 5 Bathing(FIM): 3 Shower/Bathe Self (QC): 3 Upper Body Dressing(FIM): 4 Upper Body Dressing (QC): 4 Lower Body Dressing(FIM): 3 Lower Body Dressing (QC): 3 On/Off Footwear (QC): 3 Toileting(FIM): 3 Toileting Hygiene (QC): 3 Toilet/Commode Transfer(FIM): 4 Shower Transfer(FIM): 3 Additional Goals: 1-Demonstrate ADL Tasks, 2-Verbalize Understanding, 3- ImproveStrength/Sarah 1=Demonstrate adherence to instructed precautions during ADL tasks. 2=Patient will verbalize/demonstrate understanding of assistive devices/ modifications for ADL. 3=Patient will improve strength/tolerance for activity to enable patient to perform ADL's. OT Education/Plan Problem List/Assessment Assessment: Decreased Activ Tolerance, Decreased Safety Aware, Decreased UE Strength, Dependent Transfers, Impaired Bed Mobility, Impaired Coordination, Impaired Funct Balance, Impaired I ADL's, Impaired Self-Care Skills, Visual- Perceptual Deficit Pt admitted to ARU following CVA with left side deficits. Pt currently dependent for transfers and dressing. Pt demonstrates left neglect. Pt to benefit from skilled OT intervention for ADL training, transfers, strengthening , adaptive equipment training as needed, and safety education to increase level of function and allow safe discharge plan. Discharge Recommendations Plan/Recommendations: Continue POC Treatment Plan/Plan of Care Treatment,Training & Education: Yes Patient would benefit from OT for education, treatment and training to promote independence in ADL's, mobility, safety and/or upper extremity function for ADL' s. Plan of Care: ADL Retraining, Functional Mobility, Group Exercise/Act as Ind, UE Funct Exercise/Act, UE Neuromus Re-Ed/Coord, Visual/Perceptual Retrain Treatment Duration: May 31, 2018 Frequency: At least 5 of 7 days/Wk (IRF) Estimated Hrs Per Day: 1.5 hours per day Agreement: Yes Rehab Potential: Poor Time/GCodes Start Time: 10:10 Stop Time: 11:10 Total Time Billed (hr/min): 60 Billed Treatment Time 1 visit, EVH(10minutes), ADL(20minutes), FAx2(30minutes), Co-treat with PT 50minutes TELLO CHAIREZ OT May 03, 2018 13:14
--- NOTE | 2018-05-03 15:14 | Therapy Group Daily Note ---
Therapy Daily Group Note Patient Education Topic Other List Below (Handwashing ) Exercises Fine Motor, UE Exercise Other/Notes Pt participated in group therapy with 4 to 1 ratio. Goals of Session: Acknowledge understanding of ARU expectations,ongoing. Acknowledge and demonstrate knowledge of benefits of handwashing, ongoing. Complete multi-step fine motor exercise using dynamic sitting to increase conveyor maintenance mechanic/ pinch and core strength, refused. OT/PT group consisted of introductions (name, place living, Stallings's memory) , handwashing benefits/education, fine motor/UE exercises and benefits of handwashing. Pt refused to introduce self and sat quietly during Group. Pt will benefit from group by using handwashing techniques daily to prevent illness and increase UE strength for daily functional tasks. After group, pt ambulated back to room and sat in recliner. Call light/phone in reach. All needs met in room. Start Time: 13:00 Stop Time: 14:15 Total Billed Treatment 1, GRP FLORJAYDEN CASTANEDA PIPE COVERER AND INSULATOR May 03, 2018 15:14
[2018-05-03 16:00] VITALS: BP 119/74
--- NOTE | 2018-05-03 16:14 | ST Cognitive Linguistic Eval ---
Speech Evaluation-General Medical Diagnosis CVA, L hemiparesis Onset Date: Apr 29, 2018 Therapy Diagnosis Therapy Diagnosis: Aphasia Precautions Precautions/Isolations: Fall Prevention, Standard Precautions, Pressure Ulcer Medical History Pertinent Medical History: Arthritis, CVA, GERD, HTN Reviewed History: Yes Social History Current Living Status: Alone Speech PLF-Current Status Prior Level of Function Prior to admission to the hospital, patient lived alone and was independent for all of her daily needs. Patient does have family near by for support. Subjective Patient presents with a flat affect and appeared hesitant to participate with therapy. Language Eval: Auditory Comprehends Simple Yes/No Ques: Functional Indent/Objects [place]: Functional Ident/Pics in Multiple [place]: Functional Follows 1-Step Commands: Functional Follows Complex Directions: Mild Follows General Conversations: Mild Language Eval: Verbal Language Completes Spontaneous Greeting: Functional Produces Auto, Serial Info: Functional Imitates Simple Words/Phrases: Functional Word Finding: Mild Requests Basic Needs: Mild States Basic Personal Info: Mild Expresses Complex Ideas: Moderate Objective Cognitive Domain Attention: Mild Memory: Mild Problem Solving: Mild Objective Formal/Standardized Tests [facility] Cognitive/Communication Results Memory: Immediate 3/3, Delayed with cues: /3, Orientation: 3/5, Problem Solving : Simple 3/5, Complex 1/5, Auditory Processin/5 Oral Motor/Speech Production Within functional limits for intelligibility, however her rate of speech is decreased. Impression Patient is a 73 year old female who was evaluated this afternoon for skilled ST related to cognitive-communication. Areas of the test are considered to be decreased from the patient's actual ability. The patient is resistant to receiving therapy from any of the disciplines. Communication/Social Cognition Comprehension: 4 Expression: 3 Social Interaction: 3 Problem Solvin Memory: 3 Speech Patient Assess Expression of Ideas/Wants: Frequently (2) Understanding Verbal Content: Sometimes Understands(2) Brief Interview-Mental Status: Yes Repetition of Three Words: Three (3) Temporal Orientation: Year: Correct (3) Temporal Orientation: Month: Accurate within 5 days(2) Temporal Orientation: Day: Incorrect or No Answer(0) Recall : Wear to say "Sock": No, could not recall (0) Recall : Color: Yes, no cue required (2) Recall : Bed: No, could not recall (0) Memory/Recall Ability: That he or she is in a hsp/hsp unit Speech Short Term Goals Short Term Goals Short Term Goals 1) Patient will complete memory tasks for improving safety and independence with 90% or greater. 2) Patient will complete problem solving tasks for improving safety and independence with 90% or greater. Speech Men'S Custom Hair Piece Consultant Goals Men'S Custom Hair Piece Consultant Goals Patient will improve safety and independence for achieving highest potential level of function. Speech-Plan Patient/Family Goals Patient/Family Goals: Patient plans to return home with family support post rehab. Treatment Plan Speech Therapy Treatment Plan: Continue Plan of Care Patient presents with a flat affect. Treatment Duration: May 12, 2018 Frequency: 5 times per week Estimated Hrs Per Day: .5 hour per day Rehab Potential: Poor Barriers to Learning: Patient is resistant to participation with skilled therapies. Pt/Family Agrees to Plan: Yes Safety Risks/Education Teaching Recipient: Patient Teaching Methods: Discussion Response to Teaching: Verbalize Understanding Education Topics Provided: Safety within her room. Time Speech Therapy Time In: 15:45 Speech Therapy Time Out: 16:00 Total Billed Time: 15 Billed Treatment Time 1, JAYCEE Wilkerson May 03, 2018 16:14
[2018-05-03] MEDS: RIVAROXABAN 15 MG TABLET (XARELTO) PO SCH (16:21)
[2018-05-03] MEDS: ACETAMINOPHEN 500 MG TAB (TYLENOL) PO PRN ×2 (16:22→21:25)
[2018-05-03] MEDS: BRIMONIDINE 0.2% (ALPHAGAN) OPHTH SOLN 5 ML BTL OU SCH (21:00)
[2018-05-03] MEDS: SENNA W/DOCUSATE (SENOKOT S) TABLET PO SCH (21:25)
[2018-05-03] MEDS: LACTULOSE SYRUP 10GM/15ML (ENULOSE) 30ML UDC PO SCH (21:26)
[2018-05-03] MEDS: POLYETHYLENE GLYCOL 17 GM (MIRALAX) PACK PO SCH (21:26)
[2018-05-04 06:00] VITALS: BP 115/67
[2018-05-04 07:50] VITALS: BP 148/86
--- NOTE | 2018-05-04 08:18 | Cardiology Progress Note ---
Subjective Date Seen by Provider: May 04, 2018 Time Seen by Provider: 08:17 Subjective/Events-last exam Patient is tearful this morning. States she wants to go home. Ross any chest pain, or dyspnea. Continues to have left sided weakness. Objective-Cardiology Exam Last Set of Vital Signs Vital Signs 05/03/18 05/03/18 16:00 21:00 Temp 97.6 Pulse 73 Resp 18 B/P (MAP) 119/74 (89) Pulse Ox 96 O2 Delivery Room Air Capillary Refill : I&O Intake and Output 05/04/18 00:00 Intake Total 500 ml Output Total 350 ml Balance 150 ml Intake Oral 500 ml Output Urine Total 350 ml Daily Weight Change No General: Alert, Oriented X3, Cooperative HEENT: Atraumatic, PERRLA Neck: Supple, No JVD, No Thyromegaly Lungs: Clear to Auscultation, Normal Air Movement Heart: Regular Rate, Normal S1, Normal S2, No Murmurs Abdomen: Normal Bowel Sounds, Soft, No Tenderness, No Hepatosplenomegaly, No Masses Extremities: No Clubbing, No Cyanosis, No Edema, Normal Pulses, No Tenderness/ Swelling Skin: No Rashes, No Breakdown, No Significant Lesion Neuro: Cranial Nerves 3-12 NL, Other (left sided weakness) Psych/Mental Status: Other (flat affect) A/P-Cardiology Admission Diagnosis CVA HTN HLP CRI Assessment/Plan 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 Jaime. Continue to monitor renal function Hypertension, controlled, continue to monitor blood pressure. Hyperlipidemia, monitor lipids Intermediate metabolizer for Plavix History of syncope, no further syncopal episodes were reported Osteoarthritis, rheumatoid arthritis, history of fibromyalgia, history of depression and elevated LPa Depression- on Wellbutrin, management per primary services. Clinical Quality Measures DVT/VTE Risk/Contraindication: Risk Factor Score Per Nursin RFS Level Per Nursing on Admit: 4+=Very High DAPHNIE FORREST May 04, 2018 08:18
--- NOTE | 2018-05-04 08:44 | PM&R H&P / Post Admit Assess ---
History of Present Illness HPI/Chief Complaint CC: Devastating CVA with left sided weakness HPI: This is a 73yoWF clinic patient of [facility] who was transferred from 4th floor after sustaining a devastating CVA w/left sided flaccidity. Patient had a h/o CVA with subtle right sided facial numbness in the past and placed on anticoagulation for PAF noted on REVEAL device placed by Dr Aponte but presented past the tPA window with left sided weakness after found in bed by family. She was seen by Dr Aponte and risk stratification was initiated. Carotid CTA was recommended but due to renal insufficiency that test could not be done. Currently patient is very depressed and will increase Wellbutrin dose and consult Behavioral Health to facilitate management of this new disability. Bowels are moving and catheter was DC and incontinence was noted on 4th floor. Source: patient, old records Exam Limitations: other (depression) Date Seen 05/04/18 Time Seen by a Provider: 09:00 Attending Physician Lindsay You DO [facility] [place] Referring Physician Date of Admission May 03, 2018 at 11:30 Home Medications & Allergies Home Medications Reviewed patient Home Medication Reconciliation performed by pharmacy medication reconciliations community planning technician and/or nursing. Patients Allergies have been reviewed. Allergies Allergies Coded Allergies No Known Drug Allergies (Verified09/08/12) Past Trbousa-Fnvpyk-Tgnysl Hx Past Med/Social Hx: Reviewed Nursing Past Med/Soc Hx, Reviewed and Corrections made Patient Social History Marrital Status: single Employed/Student: retired Alcohol Use: Denies Use Recreational Drug Use: No Smoking Status: Former Smoker Former Smoker, Quit: Dec 19, 1986 Type Used: Cigarettes 2nd Hand Smoke Exposure: No Physical Abuse Screen: No Sexual Abuse: No Recent Foreign Travel: No Contact w/other who traveled: No Recent Hopitalizations: No Recent Infectious Disease Expo: No Immunizations Up To Date Tetanus Booster (TDap): Unknown Pediatric: Yes Date of Pneumonia Vaccine: Nov 19, 2013 Date of Influenza Vaccine: Nov 19, 2017 Seasonal Allergies Seasonal Allergies: Yes Past Medical History Surgeries: Abdominal, Appendectomy, Eye Surgery, Tonsillectomy Currently Using CPAP: No Currently Using BIPAP: No Cardiac: Heart Murmur, Hypertension, Valvular Heart Disease Neurological: Stroke, TIA : No 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: No Sexually Transmitted Disease: No HIV/AIDS: No Female 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 Disorders: Denies Menopausal Gastrointestinal: Hiatal Hernia Musculoskeletal: Arthritis HEENT: Cataract, Glaucoma Hearing Impairment: Denies Did You Recieve Any Treatments: No Psychosocial: Anxiety, Depression History of Blood Disorders: Yes (Anemia) Adverse Reaction to Blood Quevedo: No Family History FH: CVA (cerebrovascular accident) G8 BROTHER G8 SISTER FH: breast cancer 19 MOTHER FH: cancer 19 FATHER Hypertension 19 MOTHER Review of Systems Constitutional: see HPI, malaise, weakness EENTM: no symptoms reported Respiratory: no symptoms reported Cardiovascular: no symptoms reported Genitourinary: no symptoms reported Musculoskeletal: back pain Skin: no symptoms reported Psychiatric/Neurological: Anxiety, Depressed, Weakness All Other Systems Reviewed Negative Unless Noted: Yes Physical Exam Exam Vital Signs Vital Signs Date Time Temp Pulse Resp B/P (MAP) Pulse Ox O2 Delivery O2 Flow Rate FiO2 05/03/18 21:00 96 Room Air 05/03/18 16:00 97.6 73 18 119/74 (89) Capillary Refill : General Appearance: No Apparent Distress, WD/WN, Chronically ill, Obese HEENT: PERRL/EOMI, Normal ENT Inspection, Pharynx Normal, Moist Mucous Membranes, Other (left sided facial weakness) Neck: Full Range of Motion, Normal Inspection, Non Tender, Supple Respiratory: Chest Non Tender, Lungs Clear, Normal Breath Sounds, No Accessory Muscle Use, No Respiratory Distress, Decreased Breath Sounds Cardiovascular: Regular Rate, Rhythm, No Edema, No Gallop, No JVD, No Murmur Gastrointestinal: Normal Bowel Sounds, No Organomegaly, No Pulsatile Mass, Non Tender, Soft Back: Normal Inspection, No CVA Tenderness, No Vertebral Tenderness, Decreased Range of Motion Extremity: Normal Capillary Refill, Normal Inspection, Non Tender, No Calf Tenderness, No Pedal Edema, Other (weakness left side) Neurologic/Psychiatric: Alert, Oriented x3, Depressed Affect, Motor Weakness ( left sided weakness 0/5 upper and lower) Skin: Normal Color, Warm/Dry Lymphatic: No Adenopathy Results Results/Procedures Labs Laboratory Tests 05/04/18 08:55 Patient resulted labs reviewed. Assessment/Plan Assessment and Plan Assess & Plan/Chief Complaint Assessment: Devastating CVA w/left sided flaccidity PAF Anticoagulation chronic use Severe depression Anxiety hx Former smoker HTN New bladder incontinence CRI creat 1.8 last check Plan: Intensive therapies Increase Wellbutrin Psych consultation for severe depression Check labs adrian creatinine Appreciate Dr Aponte following the patient (1) Cerebrovascular accident (CVA) with left hemiparesis (2) Incontinence of urine (3) Depression (4) CVA, old, facial weakness (5) Anticoagulant long-term use (6) Hypertension (7) Paroxysmal atrial fibrillation (8) Hyperlipidemia (9) Back pain Post Admission Physician Asses Date seen by provider: May 04, 2018 Time seen by provider: 09:00 Admisison Dx: (1) Cerebrovascular accident (CVA) with left hemiparesis Status: Acute The preadmission screen agrees with the post admission assessment that the patient is a good candidate for inpatient rehabilitation. The patient will have a comprehensive program of inpatient rehabilitation with a goal of maximizing level of functional independence prior to discharge home with family. The patient will have PT/OT ninety minutes per day, each discipline, five days a week for gait, strengthening, conditioning, balance, ADLs, any patient/family/caregiver training as necessary. Speech therapy to do cognitive assessment and treat as indicated. Rehabilitation nursing to assist with bowel, bladder, skin, wound care, medication administration, pain management. Industrial Boilermaker to assist with discharge planning, community reentry. SCD's for DVT prophylaxis. She appears to be well motivated to participate in three hours of therapy a day. She should be able to tolerate three hours of therapy a day from a medical standpoint. She should benefit from the three hours of therapy a day. She has a reasonable discharge plan, reasonable discharge rehabilitation goals and a supportive family. She has various comorbidities that need to be closely monitored with medications and treatments adjusted on a daily basis as needed. These include: Barriers to discharge for this patient who had been independent prior to this are for her to be modified independent to supervision for ADLs and mobility skills prior to discharge home with [family], so as to lessen the burden of the caregivers. Risks for this patient include: 1. Fall 2. Fracture 3. DVT 4. Pulmonary embolism 5. Wound infection 6. Skin breakdown 7. Contractures 8. Poorly controlled pain 9. Urinary retention 10. UTI 11. Respiratory infection 12. Aspiration Estimated Length of Stay: 14 days Prognosis: Rehab prognosis appears good for goal of discharge home with [family ] modified independent to supervision for ADLs and mobility skills. General: Alert, Oriented X3, Cooperative HEENT: Atraumatic, PERRLA Neck: Supple, No JVD, No Thyromegaly Lungs: Clear to Auscultation, Normal Air Movement Heart: Regular Rate, Normal S1, Normal S2, No Murmurs Abdomen: Normal Bowel Sounds, Soft, No Tenderness, No Hepatosplenomegaly, No Masses Extremities: No Clubbing, No Cyanosis, No Edema, Normal Pulses, No Tenderness/ Swelling Skin: No Rashes, No Breakdown, No Significant Lesion Neuro: Normal Speech, Sensation Intact, Cranial Nerves 3-12 NL, Other (left sided weakness) Psych/Mental Status: Mental Status NL, Other (flat affect) LINDSAY YOU DO May 04, 2018 08:44
[2018-05-04] MEDS: ASPIRIN E.C. 81 MG (ECOTRIN) TAB PO SCH (08:49)
[2018-05-04] MEDS: MAGNESIUM OXIDE (MAG-OX)400 MG TAB PO SCH ×2 (08:49→18:02)
[2018-05-04] MEDS: PANTOPRAZOLE 40 MG (PROTONIX) TAB PO SCH (08:49)
[2018-05-04] MEDS: amLODIPine 5 MG (NORVASC) TAB PO SCH (08:52)
[2018-05-04] MEDS: CARVEDILOL 12.5 MG (COREG) TABLET PO SCH ×2 (08:52→21:36)
[2018-05-04] MEDS: GABAPENTIN 300 MG (NEURONTIN) CAP PO SCH ×2 (08:52→21:36)
[2018-05-04] MEDS: PENTOXIFYLLINE ER 400 MG (TRENtal) TAB PO SCH (08:52)
[2018-05-04] MEDS ORDERED: buPROPion 75 MG (WELLBUTRIN) TAB PO SCH (09:00)
--- NOTE | 2018-05-04 09:00 | Cardiology Progress Note ---
Subjective Date Seen by Provider: May 04, 2018 Time Seen by Provider: 08:59 Subjective/Events-last exam Patient is a depressed, crying in her room. Complaining of fatigue and loss of energy Review of Systems General: No Chills, No Night Sweats, No Fatigue, No Malaise, No Appetite, No Other HEENT: No Head Aches, No Visual Changes, No Eye Pain, No Ear Pain, No Dysphasia , No Sinus Congestion, No Post Nasal Drip, No Sore Throat, No Other Pulmonary: No Dyspnea, No Cough, No Pleuritic Chest Pain, No Other Cardiovascular: No: Chest Pain, Palpitations, Orthopnea, Paroxysmal Noc. Dyspnea, Edema, Lt Headedness, Other Objective-Cardiology Exam Last Set of Vital Signs Vital Signs 05/03/18 05/03/18 16:00 21:00 Temp 97.6 Pulse 73 Resp 18 B/P (MAP) 119/74 (89) Pulse Ox 96 O2 Delivery Room Air Capillary Refill : I&O Intake and Output 05/03/18 23:59 Intake Total 500 ml Output Total 350 ml Balance 150 ml Intake Oral 500 ml Output Urine Total 350 ml Daily Weight Change No General: Alert, Oriented X3, Cooperative HEENT: Atraumatic, PERRLA Neck: Supple, No JVD, No Thyromegaly Lungs: Clear to Auscultation, Normal Air Movement Heart: Regular Rate, Normal S1, Normal S2, No Murmurs Abdomen: Normal Bowel Sounds, Soft, No Tenderness, No Hepatosplenomegaly, No Masses Extremities: No Clubbing, No Cyanosis, No Edema, Normal Pulses, No Tenderness/ Swelling Skin: No Rashes, No Breakdown, No Significant Lesion Neuro: Cranial Nerves 3-12 NL, Other (left sided weakness) Psych/Mental Status: Other (flat affect) A/P-Cardiology Admission Diagnosis CVA HTN HLP CRI Assessment/Plan 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 Jaime. Continue to monitor renal function Hypertension, controlled, continue to monitor blood pressure. Hyperlipidemia, monitor lipids Intermediate metabolizer for Plavix History of syncope, no further syncopal episodes were reported Osteoarthritis, rheumatoid arthritis, history of fibromyalgia, history of depression and elevated LPa Depression- on Wellbutrin, management per primary services. Clinical Quality Measures DVT/VTE Risk/Contraindication: Risk Factor Score Per Nursin RFS Level Per Nursing on Admit: 4+=Very High DOMI MARTINEZ MD May 04, 2018 09:00
--- NOTE | 2018-05-04 09:00 | NUR ---
CRYING AND DEPRESSED. FEELS SHE WAS "BEING LAUGHED AT YESTERDAY". DR. WILLIS HERE TO SEE PATIENT. WELLBUTRIN DOSE INCREASED AND WILL CONSULT BEHAVIORAL HEALTH.
[2018-05-04] MEDS: SENNA W/DOCUSATE (SENOKOT S) TABLET PO SCH ×2 (09:01→21:37)
[2018-05-04] MEDS: ACETAMINOPHEN 500 MG TAB (TYLENOL) PO PRN (09:01)
[2018-05-04] MEDS: POLYETHYLENE GLYCOL 17 GM (MIRALAX) PACK PO SCH ×2 (09:02→21:37)
[2018-05-04] MEDS: LACTULOSE SYRUP 10GM/15ML (ENULOSE) 30ML UDC PO SCH ×2 (09:02→21:37)
[2018-05-04 09:06] LABS: BASOPHILS % (AUTO) 0 % (0-10); EOSINOPHILS # (AUTO) 0.2 10^3/uL (0.0-0.3); EOSINOPHILS % (AUTO) 1 % (0-10); HEMATOCRIT 36 % (35-52); HEMOGLOBIN 10.9 G/DL (11.5-16.0); LYMPHOCYTES # (AUTO) 1.2 X 10^3 (1.0-4.0); LYMPHOCYTES % (AUTO) 11 % (12-44); MEAN CORPUSCULAR HEMOGLOBIN 26 PG (25-34); MEAN CORPUSCULAR HGB CONC 30 G/DL (32-36); MEAN CORPUSCULAR VOLUME 86 FL (80-99); MEAN PLATELET VOLUME 10.6 FL (7.4-10.4); MONOCYTES # (AUTO) 0.9 X 10^3 (0.0-1.0); MONOCYTES % (AUTO) 8 % (0-12); NEUTROPHILS # (AUTO) 9.2 X 10^3 (1.8-7.8); NEUTROPHILS % (AUTO) 80 % (42-75); PLATELET COUNT 168 10^3/uL (130-400); RED CELL DISTRIBUTION WIDTH 14.8 % (10.0-14.5); WHITE BLOOD COUNT 11.6 10^3/uL (4.3-11.0)
[2018-05-04] MEDS: BRIMONIDINE 0.2% (ALPHAGAN) OPHTH SOLN 5 ML BTL OU SCH ×2 (09:07→21:37)
[2018-05-04 09:30] LABS: ALBUMIN 3.9 GM/DL (3.2-4.5); BILIRUBIN,TOTAL 0.4 MG/DL (0.1-1.0); CALCIUM 10.3 MG/DL (8.5-10.1); CREATININE SERUM 1.44 MG/DL (0.60-1.30); POTASSIUM 4.5 MMOL/L (3.6-5.0); TOTAL PROTEIN 6.7 GM/DL (6.4-8.2)
--- NOTE | 2018-05-04 09:30 | NUR ---
BEHAVIORAL HEALTH NOTIFIED OF CONSULT. NATALYA ROSE WILL BE HERE BETWEEN [phone] TOMORROW.
[2018-05-04] MEDS: buPROPion SR 150 MG (WELLBUTRIN SR) TAB PO SCH (11:01)
--- NOTE | 2018-05-04 11:01 | Physical Therapy Daily Note ---
PT Daily Note-Current Subjective Patient in bed pre tx, agrees to PT, has no complaints of pain at rest. Will be co-treating with OT due poor patient strength and mobility, sitting balance, endurance. Appearance Patient in wheelchair at bedside post tx with nurse call, phone, tray, all needs met. Mental Status Patient Orientation: Person, Place, Situation Transfers Therapy Code Descriptions/Definitions Functional [place] Measure: 0=Not Assessed/NA 4=Minimal Assistance 1=Total Assistance 5=Supervision or Setup 2=Maximal Assistance 6=Modified [place] 3=Moderate Assistance 7=Complete [place] Therapy Quality Codes: 6 Independent with activity with or without an assistive device 5 Patient requires set up or clean up by helper. Patient completes activity by themselves 4 Supervision or touching assist (CGA). Linden provide cues , steadying assist 3 The helper provides less than half the effort to complete the activity 2 The helper provides more than half the effort to complete the activity 1 Dependent. The helper does all the effort to complete an activity 7 Patient refused to complete or attempt activity 9 The patient did not perform the activity before the current illness or injury 88 Not attempted due to Medical conditions or safety concerns Transfers (B, C, W/C) (FIM): 1 Scootin Rollin Supine to/from Sit: 1 Sit to/from Stand: 1 Bed to/from Chair: 1 Patient makes little attempt to assist with her right arm or leg even with cues and encouragement. Weight Bearing Right Lower Extremity: Right Full Weight Bearing Left Lower Extremity: Left Full Weight Bearing Wheelchair Training Wheelchair (FIM): 1 Treatments Patient is transferred to the side of the bed undressed (practiced sit to stand) , and transferred to bedside commode to try to have BM. Patient cannot have one and is transferred to shower chair and taken into shower and bathed. Patient has a BM in the shower. Patient is dried off and transferred to wheelchair and dressed (practiced standing again). Brief put on patient for future accidents. Assessment Current Status: Poor Progress Patient has poor motivation, she has little to no participation. PT Short Term Goals Short Term Goals Time Frame: May 10, 2018 Gait (FIM): 0 Distance (FIM): 0=does not occure Wheelchair (FIM): 1 Wheelchair distance (FIM): 1=up to 49 ft Wheelchair Distance: 150' Wheelchair Level of Assist: 3 PT Peanut Blancher Goals Long-Term Goals PT Long-Term Goals Time Frame: May 27, 2018 Transfers (B,C,W/C) (FIM): 3 Sit to Lying (QC): 2 Lying-Sitting on Side/Bed(QC): 2 Sit to Stand (QC): 2 Rollin Roll Left to Right (QC): 2 Chair/Puu-hd-Alebg Xfer(QC): 2 Car Transfer (QC): 2 Does the Patient Walk: No and Walking Goal IS indicated Gait (FIM): 1 Gait distance (FIM): 1=up to 49 ft Distance: 10' Walk 10 feet (QC): 3 Gait Level of Assist: 3 Gait Assistive Device: Walker Jose Luis Wheelchair (FIM): 2 Wheelchair distance (FIM): 0=725-80 ft Distance: 50' Wheelchair Level of Assist: 4 Wheel 50 feet with 2 turns (QC: 3 PT Plan Problem List Problem List: Activity Tolerance, Functional Strength, Safety, Balance, Gait, Transfer, Bed Mobility, ROM Treatment/Plan Treatment Plan: Continue Plan of Care Treatment Plan: Bed Mobility, Concurrent Therapy, Education, Functional Activity Sarah, Functional Strength, Group Therapy, Gait, Safety, Therapeutic Exercise, Transfers Treatment Duration: May 27, 2018 Frequency: At least 5 of 7 days/Wk (IRF) Estimated Hrs Per Day: 1.5 hours per day Patient and/or Family Agrees t: Yes Safety Risks/Education Patient Education: Transfer Techniques, Correct Positioning, Safety Issues Teaching Recipient: Patient Teaching Methods: Demonstration, Discussion Response to Teaching: Reinforcement Needed Time/GCodes Time In: 1000 Time Out: 1100 Total Billed Treatment Time: 60 Total Billed Treatment 1 visit FA 60' PT worked on bed mobility and transfers, standing, balance. OT worked on toileting, bathing, transfers. Co-treated for the whole 60 min. KATHRINE ODONNELL PT May 04, 2018 11:01
--- NOTE | 2018-05-04 11:02 | Occupational Ther Daily Note ---
OT Current Status-Daily Note Subjective Pt sleeping in bed, woke easily to name. Pt agrees to therapy. No c/o pain. Mental Status/Objective Patient Orientation: Person, Place Therapy Code Descriptions/Definitions Functional [place] Measure: 0=Not Assessed/NA 4=Minimal Assistance 1=Total Assistance 5=Supervision or Setup 2=Maximal Assistance 6=Modified [place] 3=Moderate Assistance 7=Complete [place] ADL-Treatment Co-treat with PT for skilled services due poor patient strength and mobility, sitting balance, endurance. PT worked on transfers, standing and LE strengthening. OT worked on ADLs and functional transfers. Pt required max A for supine to sitting and assist to sit EOB. Pt was transferred to [facility] with assist x2, PT transferring and OT manipulating clothing. Assist x2 to cleanse and manipulate after toilet. Pt then transferred x2 to transport shower chair. Pt then completed shower after setup 40% then assist for rest using shower chair with cutout to complete jj care/buttocks. Pt able brush hair after set up. Max A to don/doff shirt. Max A x2 for lower body dressing. Pt has poor sitting balance and significant L neglect. After therapy, pt sitting in w/c with call light/phone in reach. All needs met in room. Therapy Code Descriptions/Definitions Functional [place] Measure: 0=Not Assessed/NA 4=Minimal Assistance 1=Total Assistance 5=Supervision or Setup 2=Maximal Assistance 6=Modified [place] 3=Moderate Assistance 7=Complete [place] Therapy Quality Codes: 6 Independent with activity with or without an assistive device 5 Patient requires set up or clean up by helper. Patient completes activity by themselves 4 Supervision or touching assist (CGA). Kamuela provide cues , steadying assist 3 The helper provides less than half the effort to complete the activity 2 The helper provides more than half the effort to complete the activity 1 Dependent. The helper does all the effort to complete an activity 7 Patient refused to complete or attempt activity 9 The patient did not perform the activity before the current illness or injury 88 Not attempted due to Medical conditions or safety concerns Grooming (FIM): 5 Bathing (FIM): 2 Bathing Location: L Arm (assist to lift then cleansed arm), L Upper Leg, R Upper Leg, Chest, Abdomen Shower/Bathe Self (QC): 2 Upper Body (FIM): 2 Upper Body Dressing (QC): 2 Lower Body Dressing (FIM): 1 Lower Body Dressing (QC): 1 On/Off Footwear (QC): 2 Toileting (FIM): 1 Toileting Hygiene (QC): 1 Transfers (B, C, W/C) (FIM): 1 Toilet/Commode Transfer (FIM): 1 Toilet Transfer (QC): 1 Shower Transfer(FIM): 1 OT Short Term Goals Short Term Goals Time Frame: May 10, 2018 Grooming(FIM): 4 Bathing(FIM): 2 Upper Body Dressing(FIM): 2 Lower Body Dressing(FIM): 2 Toileting(FIM): 2 Toilet/Commode Transfer(FIM): 2 Additional Short Term Goals: 1-Demonstrate ADL Tasks, 2-Verbalize Understanding , 3-ImproveStrength/Sarah 1=Demonstrate adherence to instructed precautions during ADL tasks. 2=Patient will verbalize/demonstrate understanding of assistive devices/ modifications for ADL. 3=Patient will improve strength/tolerance for activity to enable patient to perform ADL's. OT Respiratory Therapy Technician Goals Respiratory Therapy Technician Goals Time Frame: May 31, 2018 Eating (FIM): 5 Eating (QC): 5 Groomin Oral Hygiene (QC): 5 Bathing(FIM): 3 Shower/Bathe Self (QC): 3 Upper Body Dressing(FIM): 4 Upper Body Dressing (QC): 4 Lower Body Dressing(FIM): 3 Lower Body Dressing (QC): 3 On/Off Footwear (QC): 3 Toileting(FIM): 3 Toileting Hygiene (QC): 3 Toilet/Commode Transfer(FIM): 4 Shower Transfer(FIM): 3 Additional Goals: 1-Demonstrate ADL Tasks, 2-Verbalize Understanding, 3- ImproveStrength/Sarah 1=Demonstrate adherence to instructed precautions during ADL tasks. 2=Patient will verbalize/demonstrate understanding of assistive devices/ modifications for ADL. 3=Patient will improve strength/tolerance for activity to enable patient to perform ADL's. OT Education/Plan Problem List/Assessment Pt admitted to ARU following CVA with left side deficits. Pt currently dependent for transfers and dressing. Pt demonstrates left neglect. Pt to benefit from skilled OT intervention for ADL training, transfers, strengthening , adaptive equipment training as needed, and safety education to increase level of function and allow safe discharge plan. Discharge Recommendations Plan/Recommendations: Continue POC Treatment Plan/Plan of Care Patient would benefit from OT for education, treatment and training to promote independence in ADL's, mobility, safety and/or upper extremity function for ADL' s. Plan of Care: ADL Retraining, Functional Mobility, Group Exercise/Act as Ind, UE Funct Exercise/Act, UE Neuromus Re-Ed/Coord, Visual/Perceptual Retrain Treatment Duration: May 31, 2018 Frequency: At least 5 of 7 days/Wk (IRF) Estimated Hrs Per Day: 1.5 hours per day Agreement: Yes Rehab Potential: Poor Time/GCodes Start Time: 09:45 Stop Time: 11:00 Total Time Billed (hr/min): 75 Billed Treatment Time 1 visit- ADL 5 (75 min) Individual treatment 945-1000, Co-treat with PT 1000- 1100 SAMMI BELL May 04, 2018 11:02
[2018-05-04] MEDS: LATANOPROST 0.005% (XALATAN) OPHTH SOLN 2.5 ML OU SCH (12:00)
--- NOTE | 2018-05-04 14:32 | NUR ---
Extended visit with pt 1:1. At first she was tearful and said she did not want to talk, however proceeded to share she stroked and was alone in her bed four days, unable to get up. She wept while sharing that she had to urinate in bed and stay there until help arrived. Evidence Technician facilitated free expression of thoughts and feelings, engaged in empathic listening and provided safe place. States her daughter found her, and she is thankful for this. Pt expressed appreciation for erp pm 'listening' to her.
--- NOTE | 2018-05-04 15:18 | Physical Therapy Daily Note ---
PT Daily Note-Current Subjective Denies pain. States she is able to feel L extremities but has poor awareness of L side. Mental Status Patient Orientation: Person Transfers Therapy Code Descriptions/Definitions Functional [place] Measure: 0=Not Assessed/NA 4=Minimal Assistance 1=Total Assistance 5=Supervision or Setup 2=Maximal Assistance 6=Modified [place] 3=Moderate Assistance 7=Complete [place] Therapy Quality Codes: 6 Independent with activity with or without an assistive device 5 Patient requires set up or clean up by helper. Patient completes activity by themselves 4 Supervision or touching assist (CGA). [place] provide cues , steadying assist 3 The helper provides less than half the effort to complete the activity 2 The helper provides more than half the effort to complete the activity 1 Dependent. The helper does all the effort to complete an activity 7 Patient refused to complete or attempt activity 9 The patient did not perform the activity before the current illness or injury 88 Not attempted due to Medical conditions or safety concerns Bed to/from Chair: 2 Max assist stand pivot transfers with 1-2. Pt not assisting with L side. Weight Bearing Right Lower Extremity: Right Full Weight Bearing Left Lower Extremity: Left Full Weight Bearing Neuromuscular Practiced sitting in midline in wheelchair, added shifting left and right, forwards-backwards with mod assist from therapist. Poor midline awareness. Able to visually track in all directions. Assessment Current Status: Fair Progress PT Short Term Goals Short Term Goals Time Frame: May 10, 2018 Gait (FIM): 0 Distance (FIM): 0=does not occure Wheelchair (FIM): 1 Wheelchair distance (FIM): 1=up to 49 ft Wheelchair Distance: 150' Wheelchair Level of Assist: 3 PT Care Home Goals Imaging Manager Goals PT Imaging Manager Goals Time Frame: May 27, 2018 Transfers (B,C,W/C) (FIM): 3 Sit to Lying (QC): 2 Lying-Sitting on Side/Bed(QC): 2 Sit to Stand (QC): 2 Rollin Roll Left to Right (QC): 2 Chair/Stx-tc-Vhmax Xfer(QC): 2 Car Transfer (QC): 2 Does the Patient Walk: No and Walking Goal IS indicated Gait (FIM): 1 Gait distance (FIM): 1=up to 49 ft Distance: 10' Walk 10 feet (QC): 3 Gait Level of Assist: 3 Gait Assistive Device: Walker Jose Luis Wheelchair (FIM): 2 Wheelchair distance (FIM): 1=627-36 ft Distance: 50' Wheelchair Level of Assist: 4 Wheel 50 feet with 2 turns (QC: 3 PT Plan Problem List Problem List: Activity Tolerance, Functional Strength, Safety, Balance, Gait, Transfer, Bed Mobility Treatment/Plan Treatment Plan: Continue Plan of Care Treatment Plan: Bed Mobility, Concurrent Therapy, Education, Functional Activity Sarah, Functional Strength, Group Therapy, Gait, Safety, Therapeutic Exercise, Transfers Treatment Duration: May 27, 2018 Frequency: At least 5 of 7 days/Wk (IRF) Estimated Hrs Per Day: 1.5 hours per day Patient and/or Family Agrees t: Yes Time/GCodes Time In: 100 Time Out: 120 Total Billed Treatment Time: 20 Total Billed Treatment 1, NM ex x 20 min G Codes Necessary: YRIS Bonilla PT May 04, 2018 15:18
--- NOTE | 2018-05-04 16:00 | NUR ---
SALINE LOCK SITE RED AND TENDER AND DC'D.
--- NOTE | 2018-05-04 16:00 | Speech Therapy Daily Note ---
Speech Daily Progress Note Subjective Date Seen by Provider: May 04, 2018 Time Seen by Provider: 00:30 Patient had been napping when I entered her room. Objective Patient completed word finding tasks with 60% accuracy with moderate verbal cues and/or repetitions. Assessment Assessment Current Status: Fair Progress Treatment Plan Continue Plan of Care Communication Comprehension: 4 Expression: 3 Social Cognition Social Interaction: 3 Problem Solvin Memory: 3 Speech Short Term Goals Short Term Goals Short Term Goals 1) Patient will complete memory tasks for improving safety and independence with 90% or greater. 2) Patient will complete problem solving tasks for improving safety and independence with 90% or greater. Speech Woodworking Shop Laborer Goals Woodworking Shop Laborer Goals Patient will improve safety and independence for achieving highest potential level of function. Speech-Plan Patient/Family Goals Patient/Family Goals: Patient plans to return home with family support post rehab. Treatment Plan Speech Therapy Treatment Plan: Continue Plan of Care Patient requires frequent encouragement to participate in therapy. Treatment Duration: May 12, 2018 Frequency: 5 times per week Estimated Hrs Per Day: .5 hour per day Rehab Potential: Poor Barriers to Learning: Patient is resistant to therapy. Pt/Family Agrees to Plan: Yes Safety Risks/Education Teaching Recipient: Patient Teaching Methods: Discussion Response to Teaching: Verbalize Understanding Education Topics Provided: Patient's safety within her room. Time Speech Therapy Time In: 14:00 Speech Therapy Time Out: 14:30 Total Billed Time: 30 Billed Treatment Time [address] May 04, 2018 16:00
[2018-05-04] MEDS: RIVAROXABAN 15 MG TABLET (XARELTO) PO SCH (16:19)
[2018-05-04 18:00] VITALS: BP 116/73
[2018-05-04 21:34] VITALS: BP 149/85
[2018-05-04] MEDS: ATORVASTATIN 20 MG (LIPITOR) TABLET PO SCH (21:36)
--- NOTE | 2018-05-04 21:52 | NUR ---
MONOTYPIST met with patient to complete initial assessment. Patient was alert and oriented and agreeable to assessment. Team reports patient struggling with anxiety and depression. MONOTYPIST discussed the struggles and came to agreement for behavioral health to provide consult. Patient reports history of anxiety and depression, but has not attempted medication management. Patient is resistant to this option; however, she is concerned regarding the new administration medications. per information provided by patient, patient resides alone in a one level home in [place], [place]. The home has one step at the entrance with no handrail. Patient admitted to a RU from internally following a CVA. Patient presents with severe left-sided neglect. Prior to CVA patient was independent, required no DME, and continued to drop. Patient identifies daughterDaniella and son-in-law, Claudy Brooks as primary contacts. Both work daytime hours, but available to assist in the evening. PCP identified as [facility]. Insurance verified as [employer] Medicare replacement plan. Patient utilizes mail order services for prescriptions.MONOTYPIST reviewed typical rehabilitation length of stay and weekly team conferences with patient. Patient expresses no concerns at this time. MONOTYPIST will continue to follow for appropriate discharge planning needs.
[2018-05-05 05:13] VITALS: BP 118/62
[2018-05-05] MEDS ORDERED: buPROPion SR 150 MG (WELLBUTRIN SR) TAB PO SCH (09:00)
--- NOTE | 2018-05-05 09:32 | Physical Therapy Daily Note ---
PT Daily Note-Current Subjective Agreeable to PT. Reports, "I just want to walk again." Conversational during treatment session. Transfers Therapy Code Descriptions/Definitions Functional [place] Measure: 0=Not Assessed/NA 4=Minimal Assistance 1=Total Assistance 5=Supervision or Setup 2=Maximal Assistance 6=Modified [place] 3=Moderate Assistance 7=Complete [place] Therapy Quality Codes: 6 Independent with activity with or without an assistive device 5 Patient requires set up or clean up by helper. Patient completes activity by themselves 4 Supervision or touching assist (CGA). [place] provide cues , steadying assist 3 The helper provides less than half the effort to complete the activity 2 The helper provides more than half the effort to complete the activity 1 Dependent. The helper does all the effort to complete an activity 7 Patient refused to complete or attempt activity 9 The patient did not perform the activity before the current illness or injury 88 Not attempted due to Medical conditions or safety concerns Transfers (B, C, W/C) (FIM): 1 (dep assist for all transfers. Pt does attempt to help but still requires full assist. ) Sit to/from Stand: 1 Chair/Epn-wd-Zwwxa Xfer(QC): 1 Sit to stand x multiple attempts throughout treatment with dependent assist; assist to block right foot intermittently and assist to block left foot and knee ; requires assist to lean forward in the chair and then in standing extrenal assist provided for pt to attain hip extension. Dependent for SPT as well with pt unable to pharmacy picking tech or turn feet; assist to guide her buttock to the chair. Weight Bearing Right Lower Extremity: Right Full Weight Bearing Left Lower Extremity: Left Full Weight Bearing Treatments Co treat with OT due to the complexity of this patient and need for the skill of 2 separate clinicians. PT addressed the gross functional transfer with management of LE's as OT addressed left UE hand placment and WB as well as shoulder and head positioning. PT focused on trunk control and position/ posture as OT focused on shoulders and head. Each discipline provided skilled cues throughout the treatment to facilitate optimal upright posture and standing with WB through multiple joints. OT also worked on self care tasks as PT addressed standing for pericare and clothing management. Pt stood x 4 reps in // bars with dep assist and at times 4 separate people assisting with her posture and limb managment as the 2 treating clinicians had skilled placement on theleft to activate the left LE and left UE. Overall, treatment addressed toileting with pericare and transfers, clothing managment and then standing with WB through left side and postural awareness in the // bars. Assessment Current Status: Good Progress Heavy skilled cues required fo rthe completion of all tasks. Pt able to follow cues with verbal and tactile reinforcement but does have some difficulty initiating or maintaining postures/positions. She does still required dep assist for all transfer and attempt to help. PT Short Term Goals Short Term Goals Time Frame: May 10, 2018 Gait (FIM): 0 Distance (FIM): 0=does not occure Wheelchair (FIM): 1 Wheelchair distance (FIM): 1=up to 49 ft Wheelchair Distance: 150' Wheelchair Level of Assist: 3 PT Fittings Tightener Goals Fittings Tightener Goals PT Half-Way Goals Time Frame: May 27, 2018 Transfers (B,C,W/C) (FIM): 3 Sit to Lying (QC): 2 Lying-Sitting on Side/Bed(QC): 2 Sit to Stand (QC): 2 Rollin Roll Left to Right (QC): 2 Chair/Maz-cb-Nuali Xfer(QC): 2 Car Transfer (QC): 2 Does the Patient Walk: No and Walking Goal IS indicated Gait (FIM): 1 Gait distance (FIM): 1=up to 49 ft Distance: 10' Walk 10 feet (QC): 3 Gait Level of Assist: 3 Gait Assistive Device: Walker Jose Luis Wheelchair (FIM): 2 Wheelchair distance (FIM): 2=409-07 ft Distance: 50' Wheelchair Level of Assist: 4 Wheel 50 feet with 2 turns (QC: 3 PT Plan Problem List Problem List: Activity Tolerance, Functional Strength, Safety, Balance, Gait, Transfer, Bed Mobility Treatment/Plan Treatment Plan: Continue Plan of Care Treatment Plan: Bed Mobility, Concurrent Therapy, Education, Functional Activity Sarah, Functional Strength, Group Therapy, Gait, Safety, Therapeutic Exercise, Transfers Treatment Duration: May 27, 2018 Frequency: At least 5 of 7 days/Wk (IRF) Estimated Hrs Per Day: 1.5 hours per day Patient and/or Family Agrees t: Yes Safety Risks/Education Patient Education: Transfer Techniques, Safety Issues Teaching Recipient: Patient Teaching Methods: Discussion Response to Teaching: Reinforcement Needed Time/GCodes Time In: 800 Time Out: 900 Total Billed Treatment Time: 60 Total Billed Treatment visit FA 60 (co treat with OT) SAMMI SUAERZ PT May 05, 2018 09:32
[2018-05-05] MEDS: GABAPENTIN 300 MG (NEURONTIN) CAP PO SCH ×2 (09:43→20:56)
[2018-05-05] MEDS: MAGNESIUM OXIDE (MAG-OX)400 MG TAB PO SCH ×2 (09:43→16:58)
[2018-05-05] MEDS: amLODIPine 5 MG (NORVASC) TAB PO SCH (09:43)
[2018-05-05] MEDS: buPROPion SR 150 MG (WELLBUTRIN SR) TAB PO SCH (09:43)
[2018-05-05] MEDS: SENNA W/DOCUSATE (SENOKOT S) TABLET PO SCH ×2 (09:43→20:56)
[2018-05-05] MEDS: ASPIRIN E.C. 81 MG (ECOTRIN) TAB PO SCH (09:44)
[2018-05-05] MEDS: CARVEDILOL 12.5 MG (COREG) TABLET PO SCH ×2 (09:44→20:56)
[2018-05-05] MEDS: PENTOXIFYLLINE ER 400 MG (TRENtal) TAB PO SCH (09:44)
[2018-05-05] MEDS: ACETAMINOPHEN 500 MG TAB (TYLENOL) PO PRN ×2 (09:44→21:00)
[2018-05-05] MEDS: PANTOPRAZOLE 40 MG (PROTONIX) TAB PO SCH (09:44)
[2018-05-05] MEDS: BRIMONIDINE 0.2% (ALPHAGAN) OPHTH SOLN 5 ML BTL OU SCH ×2 (09:51→21:05)
[2018-05-05] MEDS: POLYETHYLENE GLYCOL 17 GM (MIRALAX) PACK PO SCH ×2 (09:52→21:06)
[2018-05-05] MEDS: LATANOPROST 0.005% (XALATAN) OPHTH SOLN 2.5 ML OU SCH (09:52)
[2018-05-05] MEDS: LACTULOSE SYRUP 10GM/15ML (ENULOSE) 30ML UDC PO SCH ×2 (09:52→21:06)
--- NOTE | 2018-05-05 09:55 | Individualized Plan of Care ---
Individualized Plan of Care Rehab Nursing IPOC Order Admission Date May 03, 2018 at 11:30 Current Orders Orders Admission Order(Inpt,Obs,Sdc) (05/03/18 09:09) Vital Signs: Routine (Order) 08,16,00 (05/03/18 09:09) Elias Hose 09,21 (05/03/18 09:09) Sequential Compression Device 08,20 (05/03/18 09:09) Television Production Clerk-Inpt Rehab Con (05/03/18 09:09) Rehab Nursing Orders-Ipoc (05/03/18 09:09) Physical Therapy Rehab Orders (05/03/18 09:09) Occupational Therapy Rehab Ord (05/03/18 09:09) Speech Therapy Rehab Orders (05/03/18 09:09) General/Regular (05/03/18 Lunch) Intake & Output 06,14,22 (05/03/18 09:09) Precautions (Aru) (05/03/18 09:09) Weekly Weight (Lbs) WEEK (05/03/18 09:09) Rehab-Intensity Of Therapy (05/03/18 09:09) Code/Resuscitation (05/03/18 09:09) Initiate Admission Nursing Pro .admission (05/03/18 09:09) Code/Resuscitation (05/03/18 12:01) Ambulate 08,12,20 (05/03/18 12:01) Nursing Communication (Order) (05/03/18 12:01) Sequential Compression Device 08,20 (05/03/18 12:01) General/Regular (05/03/18 Dinner) Alprazolam Tablet (Xanax Tablet) (05/03/18 12:15) Acetaminophen Tablet (Tylenol Tablet) (05/03/18 12:15) Aspirin Enteric Coated Tablet (Ecotrin T (05/04/18 09:00) Baclofen Tablet (Lioresal Tablet) (05/03/18 12:15) Brimonidine 0.2% Ophth Soln (Alphagan (05/03/18 21:00) Calcium Carbonate Chew Tablet (Antacid C (05/03/18 12:15) Docusate Sodium Capsule (Colace Capsule) (05/03/18 12:15) Hydrocodone/Apap 5/325 Tablet (Lortab 5 (05/03/18 12:15) Lactulose Oral Solution (Enulose Oral So (05/03/18 21:00) Latanoprost 0.005% Ophth Soln (Xalatan 0 (05/04/18 09:00) Loperamide Capsule (Imodium Capsule) (05/03/18 12:15) Melatonin Tablet (Melatonin Tablet) (05/03/18 12:15) Ondansetron Injection (Zofran Injectio (05/03/18 12:15) Ondansetron Oral Dissolve Tab (Zofran (05/03/18 12:15) Pentoxifylline Tablet (Trental Tablet) (05/04/18 09:00) Pantoprazole Tablet (Protonix Tablet) (05/04/18 09:00) Patient May Use Own Meds, All (Patient M (05/03/18 12:15) Polyethylene Glycol Powder Pkt (Miralax (05/03/18 21:00) Rivaroxaban Tablet (Xarelto Tablet) (05/03/18 17:00) Senna S Tablet (Senokot S Tablet) (05/03/18 21:00) Amlodipine Tablet (Norvasc Tablet) (05/04/18 09:00) Bupropion Tablet (Wellbutrin Tablet) (05/04/18 09:00) Diphenhydramine Tablet (Benadryl Tablet) (05/03/18 12:15) Tizanidine Tablet (Zanaflex Tablet) (05/03/18 12:15) Tramadol Tablet (Ultram Tablet) (05/03/18 12:15) Consult Physician (05/03/18 12:01) Patient Visit (05/03/18 ) Pt Eval Moderate Complexity (05/03/18 ) Functional Activities, Ea 15 (05/03/18 ) Patient Visit (05/03/18 ) Therapeutic, Group (05/03/18 ) Patient Visit (05/03/18 ) Speech Sound Lang Comp (05/03/18 ) Atorvastatin Tablet (Lipitor Tablet) (05/04/18 21:00) Gabapentin Capsule/Tablet (Neurontin Cap (05/04/18 09:00) Magnesium Oxide Tablet (Mag Ox Tablet) (05/04/18 08:00) Carvedilol Tablet (Coreg Tablet) (05/04/18 09:00) Cbc With Automated Diff (05/04/18 08:42) Comprehensive Metabolic Panel (05/04/18 08:42) Behavorial Health Consult (05/04/18 08:44) Bupropion Sr 12 Hr Tablet (Wellbutrin Sr (05/05/18 09:00) Bupropion Sr 12 Hr Tablet (Wellbutrin Sr (05/04/18 09:45) Brimonidine 0.2% Ophth Soln (Alphagan (05/04/18 21:00) Patient Visit (05/04/18 ) Functional Activities, Ea 15 (05/04/18 ) Patient Visit (05/04/18 ) Gait Training, Ea 15 Min (05/04/18 ) Patient Visit (05/04/18 ) Treat. Speech/Lang/Voice (05/04/18 ) Ex Neuromuscular, Ea 15 Min (05/04/18 ) Patient Visit (05/05/18 ) Functional Activities, Ea 15 (05/05/18 ) Patient Visit (05/05/18 ) Therapeutic, Group (05/05/18 ) Rehab Nursing Orders: Ongoing Assess. of Function Status, Bladder Management, Bladder Scan, Bladder Training, Bowel Management, Disease Management & Educaiton , DVT Prophylaxis, Fall Prevention, Fluid/Electrolyte/Nutrition Mgmt, Infection Prevention, Management of Risks & Complications, Management of Skin Intergrity, Nutrition Management, Pain Management, Patient/Family Support Intensity of Therapy to be met Patient to be seen: Min.3h per day/5 of 7d PT IPOC Problem List: Activity Tolerance, Functional Strength, Safety, Balance, Gait, Transfer, Bed Mobility Treatment Plan: Continue Plan of Care Bed Mobility, Concurrent Therapy, Education, Functional Activity Sarah, Functional Strength, Group Therapy, Gait, Safety, Therapeutic Exercise, Transfers Treatment Duration: May 27, 2018 Frequency: At least 5 of 7 days/Wk (IRF) Estimated Hrs Per Day: 1.5 hours per day OT IPOC Problems: Decreased Activ Tolerance, Decreased Safety Aware, Decreased UE Strength, Dependent Transfers, Impaired Bed Mobility, Impaired Coordination, Impaired Funct Balance, Impaired I ADL's, Impaired Self-Care Skills, Visual- Perceptual Deficit OT Treatment, Training and Edu: Yes OT Problems Pt admitted to ARU following CVA with left side deficits. Pt currently dependent for transfers and dressing. Pt demonstrates left neglect. Pt to benefit from skilled OT intervention for ADL training, transfers, strengthening , adaptive equipment training as needed, and safety education to increase level of function and allow safe discharge plan. Plan of Care: ADL Retraining, Functional Mobility, Group Exercise/Act as Ind, UE Funct Exercise/Act, UE Neuromus Re-Ed/Coord, Visual/Perceptual Retrain Treatment Duration: May 31, 2018 Frequency: At least 5 of 7 days/Wk (IRF) Estimated Hrs Per Day: 1.5 hours per day [facility] Speech Therapy Treatment Plan: Continue Plan of Care Treatment Duration: May 12, 2018 Frequency: 5 times per week Estimated Hrs Per Day: .5 hour per day Television Production Clerk/Case Mgmt Television Production Clerk/Case Managemen: Discharge Planning Dietitian/Career And Guidance Counselor Dietitian/Career And Guidance Counselor to monitor nutritional status and make changes and/or recommendations as needed and work with speech pathology on dietary upgrades as the occur. Neuropsychology/Psychology depression Physician [facility] Medical Issues being managed closely and that require the 24 hour availability of a physician: Bowel function Pain control Fall risk Bladder continence Depression management Medical Issues: Bowel/Bladder Function, DVT Prophylaxis, Falls Precautions, Fluid/Electrolyte/Nutrition Balance, Pain Management Brief Synthesis of Preadmission Screen, Post-Admission Evaluation, and Therapy Evaluations: PT and OT will both provide intensive therapies to regain some function of the left sided extremities Speech will work on cognition and swallowing processes Counseling for traumatic event of stroke and found down after extended period of time by family Medical Prognosis: Fair Anticipated Length of Stay: 21 days SANDY WILLIS DO May 05, 2018 09:55
--- NOTE | 2018-05-05 09:55 | PM&R Progress Note ---
Subjective HPI/CC On Admission Date Seen by Provider: May 05, 2018 Time Seen by Provider: 10:00 CC: Devastating CVA with left sided weakness HPI: This is a 73yoWF clinic patient of [facility] who was transferred from 4th floor after sustaining a devastating CVA w/left sided flaccidity. Patient had a h/o CVA with subtle right sided facial numbness in the past and placed on anticoagulation for PAF noted on REVEAL device placed by Dr Aponte but presented past the tPA window with left sided weakness after found in bed by family. She was seen by Dr Aponte and risk stratification was initiated. Carotid CTA was recommended but due to renal insufficiency that test could not be done. Currently patient is very depressed and will increase Wellbutrin dose and consult Behavioral Health to facilitate management of this new disability. Bowels are moving and catheter was DC and incontinence was noted on 4th floor. Subjective/Events-last exam Patient doing well overall Trauma from found down unable to move after stroke has left her with PTSD symptoms per Alecia Fitzgerald after she saw her today and I conferred with her Patient seems to feel better since talked about the traumatic event with Alecia this morning Bladder continence is improved Will monitor lung function CRI Review of Systems General: Fatigue Neurological: Weakness Objective Exam Vital Signs Vital Signs Date Time Temp Pulse Resp B/P (MAP) Pulse Ox O2 Delivery O2 Flow Rate FiO2 05/05/18 09:00 Room Air 05/05/18 05:13 99.6 82 16 118/62 (80) 96 Capillary Refill : General Appearance: No Apparent Distress, WD/WN, Chronically ill, Obese HEENT: PERRL/EOMI, Normal ENT Inspection, Pharynx Normal, Moist Mucous Membranes, Other (left sided facial weakness) Neck: Full Range of Motion, Normal Inspection, Non Tender, Supple Respiratory: Chest Non Tender, Lungs Clear, Normal Breath Sounds, No Accessory Muscle Use, No Respiratory Distress, Decreased Breath Sounds Cardiovascular: Regular Rate, Rhythm, No Edema, No Gallop, No JVD, No Murmur Gastrointestinal: Normal Bowel Sounds, No Organomegaly, No Pulsatile Mass, Non Tender, Soft Back: Normal Inspection, No CVA Tenderness, No Vertebral Tenderness, Decreased Range of Motion Extremity: Normal Capillary Refill, Normal Inspection, Non Tender, No Calf Tenderness, No Pedal Edema, Other (weakness left side) Neurologic/Psychiatric: Alert, Oriented x3, Depressed Affect, Motor Weakness ( left sided weakness 0/5 upper and lower) Skin: Normal Color, Warm/Dry Lymphatic: No Adenopathy Results/Procedures Lab Patient resulted labs reviewed. Assessment/Plan Assessment and Plan Assess & Plan/Chief Complaint Assessment: Devastating CVA w/left sided flaccidity PAF Anticoagulation chronic use even before CVA Severe depression receiving treatment with counselor Anxiety hx Former smoker HTN New bladder incontinence CRI creat 1.8 last check now baseline 1.4 Plan: Intensive therapies Increase Wellbutrin Psych consultation for severe depression is appreciated Check labs adrian creatinine periodically Appreciate Dr Aponte following the patient (1) Cerebrovascular accident (CVA) with left hemiparesis (2) CVA, old, facial weakness (3) Anticoagulant long-term use (4) Hypertension (5) Paroxysmal atrial fibrillation (6) Incontinence of urine (7) Hyperlipidemia (8) Depression (9) Back pain Clinical Quality Measures DVT/VTE Risk/Contraindication: Risk Factor Score Per Nursin RFS Level Per Nursing on Admit: 4+=Very High SANDY WILLIS DO May 05, 2018 09:55
--- NOTE | 2018-05-05 10:13 | Occupational Ther Daily Note ---
OT Current Status-Daily Note Subjective Pt alert, sitting on BSC. Nrsg had gotten pt [place] with caren [place] [facility] [place] Pt agrees to therapy. No c/o pain. Mental Status/Objective Patient Orientation: Person, Place, Time, Situation Therapy Code Descriptions/Definitions Functional [place] Measure: 0=Not Assessed/NA 4=Minimal Assistance 1=Total Assistance 5=Supervision or Setup 2=Maximal Assistance 6=Modified Leroy 3=Moderate Assistance 7=Complete Leroy ADL-Treatment PT/OT co-treat for skilled care due to pt's decrease in activity tolerance and mobility. PT worked on transfers, standing and LE strengthening. OT worked on dressing, toileting, grooming and UE wt bearing. Pt required max A and cues to complete dressing and toileting. Assist to set up for grooming. Pt required physical/verbal cues with transfers and standing. Pt has demonstrated spontaneous movement with L hand. Standing at parallel bars with max A pt was able to grasp with L hand at time. Assist with UE wt bearing for proper position of UE to decrease stress on joints. After therapy, pt sitting in recliner with call light/phone in reach. All needs met in room. Therapy Code Descriptions/Definitions Functional [place] Measure: 0=Not Assessed/NA 4=Minimal Assistance 1=Total Assistance 5=Supervision or Setup 2=Maximal Assistance 6=Modified [place] 3=Moderate Assistance 7=Complete [place] Therapy Quality Codes: 6 Independent with activity with or without an assistive device 5 Patient requires set up or clean up by helper. Patient completes activity by themselves 4 Supervision or touching assist (CGA). [place] provide cues , steadying assist 3 The helper provides less than half the effort to complete the activity 2 The helper provides more than half the effort to complete the activity 1 Dependent. The helper does all the effort to complete an activity 7 Patient refused to complete or attempt activity 9 The patient did not perform the activity before the current illness or injury 88 Not attempted due to Medical conditions or safety concerns Grooming (FIM): 5 Upper Body (FIM): 2 Upper Body Dressing (QC): 2 Lower Body Dressing (FIM): 1 Lower Body Dressing (QC): 1 On/Off Footwear (QC): 2 Toileting (FIM): 1 (Pt dependent with toileting. Requires multiple attempt to stand to cleanse and manipulate clothing.) Toileting Hygiene (QC): 1 Toilet/Commode Transfer (FIM): 1 Toilet Transfer (QC): 1 OT Short Term Goals Short Term Goals Time Frame: May 10, 2018 Grooming(FIM): 4 Bathing(FIM): 2 Upper Body Dressing(FIM): 2 Lower Body Dressing(FIM): 2 Toileting(FIM): 2 Toilet/Commode Transfer(FIM): 2 Additional Short Term Goals: 1-Demonstrate ADL Tasks, 2-Verbalize Understanding , 3-ImproveStrength/Sarah 1=Demonstrate adherence to instructed precautions during ADL tasks. 2=Patient will verbalize/demonstrate understanding of assistive devices/ modifications for ADL. 3=Patient will improve strength/tolerance for activity to enable patient to perform ADL's. OT Half-Way Goals [employer] Goals Time Frame: May 31, 2018 Eating (FIM): 5 Eating (QC): 5 Groomin Oral Hygiene (QC): 5 Bathing(FIM): 3 Shower/Bathe Self (QC): 3 Upper Body Dressing(FIM): 4 Upper Body Dressing (QC): 4 Lower Body Dressing(FIM): 3 Lower Body Dressing (QC): 3 On/Off Footwear (QC): 3 Toileting(FIM): 3 Toileting Hygiene (QC): 3 Toilet/Commode Transfer(FIM): 4 Shower Transfer(FIM): 3 Additional Goals: 1-Demonstrate ADL Tasks, 2-Verbalize Understanding, 3- ImproveStrength/Sarah 1=Demonstrate adherence to instructed precautions during ADL tasks. 2=Patient will verbalize/demonstrate understanding of assistive devices/ modifications for ADL. 3=Patient will improve strength/tolerance for activity to enable patient to perform ADL's. OT Education/Plan Problem List/Assessment Pt admitted to ARU following CVA with left side deficits. Pt currently dependent for transfers and dressing. Pt demonstrates left neglect. Pt to benefit from skilled OT intervention for ADL training, transfers, strengthening , adaptive equipment training as needed, and safety education to increase level of function and allow safe discharge plan. Discharge Recommendations Plan/Recommendations: Continue POC Treatment Plan/Plan of Care Patient would benefit from OT for education, treatment and training to promote independence in ADL's, mobility, safety and/or upper extremity function for ADL' s. Plan of Care: ADL Retraining, Functional Mobility, Group Exercise/Act as Ind, UE Funct Exercise/Act, UE Neuromus Re-Ed/Coord, Visual/Perceptual Retrain Treatment Duration: May 31, 2018 Frequency: At least 5 of 7 days/Wk (IRF) Estimated Hrs Per Day: 1.5 hours per day Agreement: Yes Rehab Potential: Poor Time/GCodes Start Time: 08:00 Stop Time: 09:00 Total Time Billed (hr/min): 60 Billed Treatment Time 1 visit-ADL 1 (15 min) FA 3 (45 min) co-treat for 60 min SAMMI BELL May 05, 2018 10:12
--- NOTE | 2018-05-05 12:51 | Behavioral Health Consult ---
Consult- Consult Date Seen by Provider: May 05, 2018 Time Seen by Provider: 09:00 CPT Code: 15504 Psychodiagnostic Examination, 1 unit(s) Start Time: 899 Stop Time: 949 Chief Complaint: Depression Referral: Cheryl Welsh is a 73 year old female referred by Dr. You for a clinical diagnostic assessment. Information sources for this evaluation include self-report/observation and medical records. Presenting Problem: The presenting clinical problem is Depression. Duration of the current problem was indeterminate given the available information. The primary clinical theme and problem discussed during the appointment was that Cheryl was admitted in the inpatient rehab unit following a stroke. She has shown more depression and episodes of tearfulness since her admission. Cheryl shared the details of her stroke and was very upset recalling these events. She recalled that she was not feeling well and decided to lay down. She woke up and was unable to move. She believes that she laid there for four days before her daughter found her. She is ashamed that she had to urinate on herself during that time. Cheryl has had strokes in the past, but was able to catch them early and had good results. She feels this one went too long and is going to take much longer to heal. Cheryl does show good cognitive functioning and was given a great deal of positive reassurance regarding this. Cheryl shared that she does still have some issues related to her marriage and divorce. She was for 35 years and for the past 15 years. Her ex- in December of last year. She was encouraged to follow- up with outpatient counseling once she completes her hospital stay and returns home. Symptoms observed or reported requiring current level of care include depressed mood, frequent tearfulness, medical problems, and worry. Observations/Mental Status: Cheryl was assessed in her hospital room. Cheryl s general approach to the evaluation indicated interest. Orientation was intact for person, place, time, and situation. Cheryl evidenced good understanding of the reason for the appointment. Cheryls approach to the session was depressed and tearful. The predominant mood was that of depressed with affect appropriate to expressed concerns and presenting problem. Immediate attention and concentration was unremarkable clinically during the interview. Level of intellectual functioning compared to same age peers was average range. Thought processes were found to be generally logical, coherent and goal directed. Thought content appeared normal. Psychomotor functioning was within normal limits. Tone of voice was normal and controlled and manner of speech was normal. Expressive speech was marked by fluent speech and language. Current destructive behavior patterns: none reported or indicated. Disturbance in sleep patterns: none reported or indicated. Eye contact was good. Insight was average. Christa style of interacting during the appointment was appropriate and motivated. Medication History: Cheryl is currently on Wellbutrin and this was increased. Family and Social Histories: Cheryl currently lives alone Cheryl has been living alone in [place]. Her daughter lives in [place]. She would like to return to her home following discharge. Summary of Assessment Information/Prognosis: Christa presenting problem and symptoms appear consistent with a preliminary diagnosis of F33.2 Major Depressive Disorder, Recurrent, Severe without Psychotic Features at this point. Current emotional symptoms are of moderate intensity. Strengths/Weaknesses: Strengths/Resources: articulate and supportive family Liabilities/Barriers: health problems Diagnostic Impressions: ICD-10: F33.2 Major Depressive Disorder, Recurrent, Severe without Psychotic Features Initial Treatment Plan/Recommendations: The recommendations at this time include the following: Continue with supportive reassurance and encouragement. Continue medication management with Wellbutrin. Cheryl is recommended to follow-up with outpatient counseling from discharge from the hospital. Further disposition will be made at that time. Cheryl verbalized understanding of these recommendations and an intention to comply. NATALYA ROSE May 05, 2018 12:51
--- NOTE | 2018-05-05 13:51 | Therapy Group Daily Note ---
Therapy Daily Group Note Patient Education Topic Fall Prevention, Home Safety, Energy Cons Other/Notes Pt participated in group therapy with 4 to 1 ratio. Goals of Session: Demonstrates ability to use fine motor skills to open packages/containers, ongoing. Acknowledge or verbalize understanding of winter safety, met. OT/PT group consisted of introductions (name and place), socialization, educational topics (winter safety) and UE gross/fine motor functional tasks. Pt introduced self appropriately and actively listened to peers. Pt contributed to discussions and contributed to conversations with peers. Pt was able to demonstrate good R UE gross/fine motor skills during functional tasks while eating lunch, due to L UE being flaccid from CVA, pt required assist to open packages/containers.. Pt giving own strategies and experiences during educational topics. Pt will benefit from group by using resources and topics discussed to improve awareness and safety. Pt benefits by being independent and increasing strength in B UE's. After therapy, pt transported via w/c back to room. toileted and laid in bed. Call light/phone in reach. All needs met in room. Start Time: 12:00 Stop Time: 13:10 Total Billed Treatment Time: 70 Total Billed Treatment 1 visit GRP 70 min FELICITA SINGH PT May 05, 2018 13:51
[2018-05-05] MEDS: RIVAROXABAN 15 MG TABLET (XARELTO) PO SCH (16:58)
[2018-05-05 18:00] VITALS: BP 137/71
[2018-05-05] MEDS: ATORVASTATIN 20 MG (LIPITOR) TABLET PO SCH (20:56)
[2018-05-06 06:03] VITALS: BP 114/72
[2018-05-06] MEDS: MAGNESIUM OXIDE (MAG-OX)400 MG TAB PO SCH ×2 (08:31→17:20)
[2018-05-06] MEDS: PENTOXIFYLLINE ER 400 MG (TRENtal) TAB PO SCH (08:31)
[2018-05-06] MEDS: PANTOPRAZOLE 40 MG (PROTONIX) TAB PO SCH (08:31)
[2018-05-06] MEDS: buPROPion SR 150 MG (WELLBUTRIN SR) TAB PO SCH (08:31)
[2018-05-06] MEDS: GABAPENTIN 300 MG (NEURONTIN) CAP PO SCH ×2 (08:33→20:39)
[2018-05-06] MEDS: ASPIRIN E.C. 81 MG (ECOTRIN) TAB PO SCH (08:33)
[2018-05-06] MEDS: CARVEDILOL 12.5 MG (COREG) TABLET PO SCH ×2 (08:33→20:39)
[2018-05-06] MEDS: LATANOPROST 0.005% (XALATAN) OPHTH SOLN 2.5 ML OU SCH (08:34)
[2018-05-06] MEDS: amLODIPine 5 MG (NORVASC) TAB PO SCH (08:34)
[2018-05-06] MEDS: BRIMONIDINE 0.2% (ALPHAGAN) OPHTH SOLN 5 ML BTL OU SCH ×2 (08:35→21:09)
[2018-05-06] MEDS: SENNA W/DOCUSATE (SENOKOT S) TABLET PO SCH ×2 (08:41→20:38)
[2018-05-06] MEDS: HYDROcodone/APAP 5 MG/325 MG (LORTAB) TAB PO PRN (08:42)
[2018-05-06] MEDS: LACTULOSE SYRUP 10GM/15ML (ENULOSE) 30ML UDC PO SCH ×2 (08:43→20:40)
[2018-05-06] MEDS: POLYETHYLENE GLYCOL 17 GM (MIRALAX) PACK PO SCH ×2 (08:43→20:40)
--- NOTE | 2018-05-06 10:49 | Physical Therapy Daily Note ---
PT Daily Note-Current Subjective Agrees to PT. Reports she is tired today. Mental Status Patient Orientation: Person, Place, Time, Situation Transfers Therapy Code Descriptions/Definitions Functional [place] Measure: 0=Not Assessed/NA 4=Minimal Assistance 1=Total Assistance 5=Supervision or Setup 2=Maximal Assistance 6=Modified [place] 3=Moderate Assistance 7=Complete [place] Therapy Quality Codes: 6 Independent with activity with or without an assistive device 5 Patient requires set up or clean up by helper. Patient completes activity by themselves 4 Supervision or touching assist (CGA). [place] provide cues , steadying assist 3 The helper provides less than half the effort to complete the activity 2 The helper provides more than half the effort to complete the activity 1 Dependent. The helper does all the effort to complete an activity 7 Patient refused to complete or attempt activity 9 The patient did not perform the activity before the current illness or injury 88 Not attempted due to Medical conditions or safety concerns Weight Bearing Right Lower Extremity: Right Full Weight Bearing Left Lower Extremity: Left Full Weight Bearing Treatments SPT x 2 with dep assist to the right. Pt able to bear weight through the right LE but full assist to turn and transfer. Worked on postural alignment in the wc using the mirror; also provided tactile cues for shoulder/upper back upright and anterior pelvic tilt with pt working to activiate her core to hold this position. Sit to stand x 2 in // bars with dep assist to stand, blocked her left knee and assist to keep left hand on the // bars. Pt stood approx 30 sec each time. Pt back to room post treatment, dep to transfer sit to supine and for bed mobility. Pt in bed post treatment with needs me.t Assessment Current Status: Fair Progress pt seems tired today and needed heavy cues to stay on task. leans heavily left and has much difficulty correcting even with verbal and tactile cues. PT Short Term Goals Short Term Goals Time Frame: May 10, 2018 Gait (FIM): 0 Distance (FIM): 0=does not occure Wheelchair (FIM): 1 Wheelchair distance (FIM): 1=up to 49 ft Wheelchair Distance: 150' Wheelchair Level of Assist: 3 PT Fci Goals Fci Goals PT Fci Goals Time Frame: May 27, 2018 Transfers (B,C,W/C) (FIM): 3 Sit to Lying (QC): 2 Lying-Sitting on Side/Bed(QC): 2 Sit to Stand (QC): 2 Rollin Roll Left to Right (QC): 2 Chair/[id number]-[id number] Xfer(QC): 2 Car Transfer (QC): 2 Does the Patient Walk: No and Walking Goal IS indicated Gait (FIM): 1 Gait distance (FIM): 1=up to 49 ft Distance: 10' Walk 10 feet (QC): 3 Gait Level of Assist: 3 Gait Assistive Device: Walker Jose Luis Wheelchair (FIM): 2 Wheelchair distance (FIM): 0=045-14 ft Distance: 50' Wheelchair Level of Assist: 4 Wheel 50 feet with 2 turns (QC: 3 PT Plan Problem List Problem List: Activity Tolerance, Functional Strength, Safety, Balance, Gait, Transfer, Bed Mobility Treatment/Plan Treatment Plan: Continue Plan of Care Treatment Plan: Bed Mobility, Concurrent Therapy, Education, Functional Activity Sarah, Functional Strength, Group Therapy, Gait, Safety, Therapeutic Exercise, Transfers Treatment Duration: May 27, 2018 Frequency: At least 5 of 7 days/Wk (IRF) Estimated Hrs Per Day: 1.5 hours per day Patient and/or Family Agrees t: Yes Safety Risks/Education Patient Education: Safety Issues Teaching Methods: Demonstration, Discussion Response to Teaching: Reinforcement Needed Time/GCodes Time In: 1000 Time Out: 1028 Total Billed Treatment Time: 28 Total Billed Treatment visit FA 28 SAMMI SUAREZ PT May 06, 2018 10:49
--- NOTE | 2018-05-06 11:13 | PM&R Progress Note ---
Subjective HPI/CC On Admission Date Seen by Provider: May 06, 2018 Time Seen by Provider: 11:30 CC: Devastating CVA with left sided weakness HPI: This is a 73yoWF clinic patient of [facility] who was transferred from 4th floor after sustaining a devastating CVA w/left sided flaccidity. Patient had a h/o CVA with subtle right sided facial numbness in the past and placed on anticoagulation for PAF noted on REVEAL device placed by Dr Aponte but presented past the tPA window with left sided weakness after found in bed by family. She was seen by Dr Aponte and risk stratification was initiated. Carotid CTA was recommended but due to renal insufficiency that test could not be done. Currently patient is very depressed and will increase Wellbutrin dose and consult Behavioral Health to facilitate management of this new disability. Bowels are moving and catheter was DC and incontinence was noted on 4th floor. Subjective/Events-last exam Patient doing well overall but about the same and appears to still be withdrawn which could very well lead to decline in overall prognosis On commode right now requiring 2 nurses to get her back in [place] Bladder continence is improved Will monitor lung function on Nicotine patch CRI is monitored and will check labs in am Review of Systems General: Fatigue Neurological: Weakness, Incoordination Objective Exam Vital Signs Vital Signs Date Time Temp Pulse Resp B/P (MAP) Pulse Ox O2 Delivery O2 Flow Rate FiO2 05/06/18 09:00 Room Air 05/06/18 06:03 97.0 65 18 114/72 (86) 97 Capillary Refill : General Appearance: No Apparent Distress, WD/WN, Chronically ill, Obese HEENT: PERRL/EOMI, Normal ENT Inspection, Pharynx Normal, Moist Mucous Membranes, Other (left sided facial weakness) Neck: Full Range of Motion, Normal Inspection, Non Tender, Supple Respiratory: Chest Non Tender, Lungs Clear, Normal Breath Sounds, No Accessory Muscle Use, No Respiratory Distress, Decreased Breath Sounds Cardiovascular: Regular Rate, Rhythm, No Edema, No Gallop, No JVD, No Murmur Gastrointestinal: Normal Bowel Sounds, No Organomegaly, No Pulsatile Mass, Non Tender, Soft Back: Normal Inspection, No CVA Tenderness, No Vertebral Tenderness, Decreased Range of Motion Extremity: Normal Capillary Refill, Normal Inspection, Non Tender, No Calf Tenderness, No Pedal Edema, Other (weakness left side) Neurologic/Psychiatric: Alert, Oriented x3, Depressed Affect, Motor Weakness ( left sided weakness 0/5 upper and lower) Skin: Normal Color, Warm/Dry Lymphatic: No Adenopathy Results/Procedures Lab Patient resulted labs reviewed. Assessment/Plan Assessment and Plan Assess & Plan/Chief Complaint Assessment: Devastating CVA w/left sided flaccidity PAF Anticoagulation chronic use even before CVA Severe depression receiving treatment with counselor Anxiety hx Former smoker HTN New bladder incontinence CRI creat 1.8 last check now baseline 1.4 Plan: Intensive therapies Increase Wellbutrin Psych consultation for severe depression is appreciated Check labs adrian creatinine periodically Appreciate Dr Aponte following the patient Overall prognosis dependent on her ability to maintain motivation (1) Cerebrovascular accident (CVA) with left hemiparesis (2) CVA, old, facial weakness (3) Anticoagulant long-term use (4) Hypertension (5) Paroxysmal atrial fibrillation (6) Incontinence of urine (7) Hyperlipidemia (8) Depression (9) Back pain Clinical Quality Measures DVT/VTE Risk/Contraindication: Risk Factor Score Per Nursin RFS Level Per Nursing on Admit: 4+=Very High SANDY WILLIS DO May 06, 2018 11:13
[2018-05-06 15:19] VITALS: BP 108/70
--- NOTE | 2018-05-06 16:00 | NUR ---
HAS BEEN UP TO COMMODE X 4 SO FAR AND ONLY VOIDED 50 CC TODAY. BLADDER SCAN SHOWS [address] WILLIS NOTIFIED AND ORDERS NOTED.
[2018-05-06] MEDS: RIVAROXABAN 15 MG TABLET (XARELTO) PO SCH (16:48)
--- NOTE | 2018-05-06 18:00 | NUR ---
HAD BEEN UP IN CHAIR FOR DINNER, THEN UP TO COMMODE AGAIN TO TRY TO VOID. NO SUCCESS. STRAIGHT CATH'D WITH 375 CC URINE RETURN.
[2018-05-06] MEDS: ACETAMINOPHEN 500 MG TAB (TYLENOL) PO PRN (20:38)
[2018-05-06] MEDS: ATORVASTATIN 20 MG (LIPITOR) TABLET PO SCH (20:39)
--- NOTE | 2018-05-06 21:15 | NUR ---
Pt assisted to sit on side of bed with max assist x1 staff. Pt's sitting balance improved from yesterday as she is able to sit on side of bed with SBA. Assisted to bsc with max assist x2 staff. Pt voided mod amt light chidi urine and had small bm. Pt dependent for all jj-care and clothing adjustment. Pt back to bed with max assist x2 staff for transfers and bed mobility. Pt michael well. Cont to monitor.
[2018-05-07 05:05] VITALS: BP 105/66
[2018-05-07 06:30] LABS: BASOPHILS % (AUTO) 0 % (0-10); EOSINOPHILS # (AUTO) 0.2 10^3/uL (0.0-0.3); EOSINOPHILS % (AUTO) 2 % (0-10); HEMATOCRIT 34 % (35-52); HEMOGLOBIN 10.2 G/DL (11.5-16.0); LYMPHOCYTES # (AUTO) 1.6 X 10^3 (1.0-4.0); LYMPHOCYTES % (AUTO) 18 % (12-44); MEAN CORPUSCULAR HEMOGLOBIN 26 PG (25-34); MEAN CORPUSCULAR HGB CONC 30 G/DL (32-36); MEAN CORPUSCULAR VOLUME 87 FL (80-99); MEAN PLATELET VOLUME 10.7 FL (7.4-10.4); MONOCYTES % (AUTO) 11 % (0-12); NEUTROPHILS # (AUTO) 6.3 X 10^3 (1.8-7.8); NEUTROPHILS % (AUTO) 69 % (42-75); PLATELET COUNT 158 10^3/uL (130-400); RED CELL DISTRIBUTION WIDTH 15.1 % (10.0-14.5); WHITE BLOOD COUNT 9.1 10^3/uL (4.3-11.0)
[2018-05-07 07:17] LABS: ALBUMIN 3.5 GM/DL (3.2-4.5); BILIRUBIN,TOTAL 0.3 MG/DL (0.1-1.0); CREATININE SERUM 1.47 MG/DL (0.60-1.30); POTASSIUM 4.9 MMOL/L (3.6-5.0); TOTAL PROTEIN 6.1 GM/DL (6.4-8.2)
[2018-05-07 08:00] VITALS: BP 121/78
[2018-05-07] MEDS: POLYETHYLENE GLYCOL 17 GM (MIRALAX) PACK PO SCH ×2 (08:48→20:01)
[2018-05-07] MEDS: LACTULOSE SYRUP 10GM/15ML (ENULOSE) 30ML UDC PO SCH ×2 (08:48→20:01)
[2018-05-07] MEDS: CARVEDILOL 12.5 MG (COREG) TABLET PO SCH ×2 (09:02→20:18)
[2018-05-07] MEDS: SENNA W/DOCUSATE (SENOKOT S) TABLET PO SCH ×2 (09:03→20:18)
[2018-05-07] MEDS: amLODIPine 5 MG (NORVASC) TAB PO SCH (09:03)
[2018-05-07] MEDS: GABAPENTIN 300 MG (NEURONTIN) CAP PO SCH ×2 (09:03→20:18)
[2018-05-07] MEDS: PANTOPRAZOLE 40 MG (PROTONIX) TAB PO SCH (09:04)
[2018-05-07] MEDS: ASPIRIN E.C. 81 MG (ECOTRIN) TAB PO SCH (09:04)
[2018-05-07] MEDS: MAGNESIUM OXIDE (MAG-OX)400 MG TAB PO SCH ×2 (09:04→17:46)
[2018-05-07] MEDS: buPROPion SR 150 MG (WELLBUTRIN SR) TAB PO SCH (09:04)
[2018-05-07] MEDS: HYDROcodone/APAP 5 MG/325 MG (LORTAB) TAB PO PRN ×2 (09:05→16:08)
[2018-05-07] MEDS: PENTOXIFYLLINE ER 400 MG (TRENtal) TAB PO SCH (09:05)
[2018-05-07] MEDS: BRIMONIDINE 0.2% (ALPHAGAN) OPHTH SOLN 5 ML BTL OU SCH ×2 (09:06→20:20)
[2018-05-07] MEDS: LATANOPROST 0.005% (XALATAN) OPHTH SOLN 2.5 ML OU SCH (09:06)
--- NOTE | 2018-05-07 10:26 | PM&R Progress Note ---
Subjective HPI/CC On Admission Date Seen by Provider: May 07, 2018 Time Seen by Provider: 10:30 CC: Devastating CVA with left sided weakness HPI: This is a 73yoWF clinic patient of [facility] who was transferred from 4th floor after sustaining a devastating CVA w/left sided flaccidity. Patient had a h/o CVA with subtle right sided facial numbness in the past and placed on anticoagulation for PAF noted on REVEAL device placed by Dr Aponte but presented past the tPA window with left sided weakness after found in bed by family. She was seen by Dr Aponte and risk stratification was initiated. Carotid CTA was recommended but due to renal insufficiency that test could not be done. Currently patient is very depressed and will increase Wellbutrin dose and consult Behavioral Health to facilitate management of this new disability. Bowels are moving and catheter was DC and incontinence was noted on 4th floor. Subjective/Events-last exam Patient doing well overall but about the same and appears to still be withdrawn which could very well lead to decline in overall prognosis Having urinary retention issues mostly during the day and not at night which is unusual and if continues will place pena and consult Urology tomorrow Pain is not reported CRI is monitored Reviewed labs Review of Systems General: Fatigue Neurological: Weakness, Incoordination Objective Exam Vital Signs Vital Signs Date Time Temp Pulse Resp B/P (MAP) Pulse Ox O2 Delivery O2 Flow Rate FiO2 05/07/18 09:00 Room Air 05/07/18 05:05 98.4 79 18 105/66 (79) 95 Capillary Refill : General Appearance: No Apparent Distress, WD/WN, Chronically ill, Obese HEENT: PERRL/EOMI, Normal ENT Inspection, Pharynx Normal, Moist Mucous Membranes, Other (left sided facial weakness) Neck: Full Range of Motion, Normal Inspection, Non Tender, Supple Respiratory: Chest Non Tender, Lungs Clear, Normal Breath Sounds, No Accessory Muscle Use, No Respiratory Distress, Decreased Breath Sounds Cardiovascular: Regular Rate, Rhythm, No Edema, No Gallop, No JVD, No Murmur Gastrointestinal: Normal Bowel Sounds, No Organomegaly, No Pulsatile Mass, Non Tender, Soft Back: Normal Inspection, No CVA Tenderness, No Vertebral Tenderness, Decreased Range of Motion Extremity: Normal Capillary Refill, Normal Inspection, Non Tender, No Calf Tenderness, No Pedal Edema, Other (weakness left side) Neurologic/Psychiatric: Alert, Oriented x3, Depressed Affect, Motor Weakness ( left sided weakness 0/5 upper and lower), Other (withdrawn) Skin: Normal Color, Warm/Dry Lymphatic: No Adenopathy Results/Procedures Lab Laboratory Tests 05/07/18 06:00 Patient resulted labs reviewed. Assessment/Plan Assessment and Plan Assess & Plan/Chief Complaint Assessment: Devastating CVA w/left sided flaccidity PAF Anticoagulation chronic use even before CVA Severe depression receiving treatment with counselor Anxiety hx Former smoker HTN New bladder incontinence CRI creat 1.8 last check now baseline 1.4 Urinary retention Plan: Intensive therapies Increase Wellbutrin Psych consultation for severe depression is appreciated Check labs adrian creatinine periodically Appreciate Dr Aponte following the patient Overall prognosis dependent on her ability to maintain motivation Urinary retention will be monitored and if continues will place pena and consult Urology in am (1) Cerebrovascular accident (CVA) with left hemiparesis (2) CVA, old, facial weakness (3) Anticoagulant long-term use (4) Hypertension (5) Paroxysmal atrial fibrillation (6) Incontinence of urine (7) Hyperlipidemia (8) Depression (9) Back pain (10) Urinary retention Clinical Quality Measures DVT/VTE Risk/Contraindication: Risk Factor Score Per Nursin RFS Level Per Nursing on Admit: 4+=Very High SANDY WILLIS DO May 07, 2018 10:26
--- NOTE | 2018-05-07 15:30 | NUR ---
HAD BEEN NAPPING. DENIES NEED TO VOID. BLADDER SCAN SHOWS 427 CC. ASSISTED UP BY 2 NURSES TO COMMODE AND SAT FOR 10 MINUTES. UNABLE TO VOID. #16 FR. RHODES CATHETER INSERTED WITHOUT DIFFICULTY TO DEPENDENT DRAINAGE.
--- NOTE | 2018-05-07 16:00 | NUR ---
COMPLAINING OF RIGHT-SIDED NECK PAIN AND MEDIATED WITH LORTAB.
[2018-05-07] MEDS: RIVAROXABAN 15 MG TABLET (XARELTO) PO SCH (16:09)
--- NOTE | 2018-05-07 16:30 | NUR ---
CRYING. UPSET ABOUT CONDITION AND NEED FOR RHODES CATHETER. ENCOURAGEMENT GIVEN THAT IT IS FOR SHORT TERM USE.
[2018-05-07 17:34] VITALS: BP 127/71
--- NOTE | 2018-05-07 19:00 | NUR ---
URINE CLOUDY AND MILKY. DR. WILLIS NOTIFIED AND WILL OBTAIN URINE CULTURE.
[2018-05-07] MEDS: ATORVASTATIN 20 MG (LIPITOR) TABLET PO SCH (20:18)
[2018-05-08 05:25] VITALS: BP 127/77
--- NOTE | 2018-05-08 08:06 | Speech Therapy Progress Note ---
Therapy Progress Note Speech Therapy unavailable on 05/05/18 due to inclement weather. JAYCEE KING May 08, 2018 08:06
--- NOTE | 2018-05-08 08:21 | Cardiology Progress Note ---
Subjective Date Seen by Provider: May 08, 2018 Time Seen by Provider: 08:20 Subjective/Events-last exam Patient is with physical therapy. Denies any chest pain or dyspnea. Continues to have left sided weakness. Objective-Cardiology Exam Last Set of Vital Signs Vital Signs 05/08/18 05/08/18 05:25 07:58 Temp 98.2 Pulse 80 Resp 18 B/P (MAP) 127/77 (94) Pulse Ox 95 O2 Delivery Room Air Capillary Refill : I&O Intake and Output 05/08/18 00:00 Intake Total 1340 ml Output Total 500 ml Balance 840 ml Intake Oral 1340 ml Output Urine Total 500 ml # Voids 3 # Bowel Movements 2 General: Alert, Oriented X3, Cooperative HEENT: Atraumatic, PERRLA Neck: Supple, No JVD, No Thyromegaly Lungs: Clear to Auscultation, Normal Air Movement Heart: Regular Rate, Normal S1, Normal S2, No Murmurs Abdomen: Normal Bowel Sounds, Soft, No Tenderness, No Hepatosplenomegaly, No Masses Extremities: No Clubbing, No Cyanosis, No Edema, Normal Pulses, No Tenderness/ Swelling Skin: No Rashes, No Breakdown, No Significant Lesion Neuro: Normal Speech, Sensation Intact, Cranial Nerves 3-12 NL, Other (left sided weakness) Psych/Mental Status: Mental Status NL, Other (flat affect) A/P-Cardiology Admission Diagnosis CVA HTN HLP CRI Assessment/Plan 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 Jaime. Continue to monitor renal function Hypertension, controlled, continue to monitor blood pressure. Hyperlipidemia, monitor lipids Intermediate metabolizer for Plavix History of syncope, no further syncopal episodes were reported Osteoarthritis, rheumatoid arthritis, history of fibromyalgia, history of depression and elevated LPa Depression- on Wellbutrin Clinical Quality Measures DVT/VTE Risk/Contraindication: Risk Factor Score Per Nursin RFS Level Per Nursing on Admit: 4+=Very High Supervisory-Addendum Brief Supervisory Addendum Participated in pt care: history, MDM, physical Personally performed: exam, history, MDM Care discussed with: PALOMO Results interpretation: agree with documentation Notes: patient was seen and evaluated, reporting improvement, still having weakness and hemiplegia. More cheerful today. On examination lungs were clear to auscultation bilaterally, heart is regular rate and rhythm. Continue on current medication monitor DAPHNIE FORREST May 08, 2018 08:21 DOMI MARTINEZ MD May 08, 2018 10:01
--- NOTE | 2018-05-08 09:02 | Physical Therapy Daily Note ---
PT Daily Note-Current Subjective Patient on bedside commode pre tx, nursing in room, states patient is done. Patient agrees to PT, no complaints of pain. Will be co-treating with OT due to poor endurance, sitting balance, strength. Appearance Patient in recliner post tx with nurse call, phone, tray, all needs met. Mental Status Patient Orientation: Person, Place, Situation Transfers Therapy Code Descriptions/Definitions Functional [place] Measure: 0=Not Assessed/NA 4=Minimal Assistance 1=Total Assistance 5=Supervision or Setup 2=Maximal Assistance 6=Modified [place] 3=Moderate Assistance 7=Complete [place] Therapy Quality Codes: 6 Independent with activity with or without an assistive device 5 Patient requires set up or clean up by helper. Patient completes activity by themselves 4 Supervision or touching assist (CGA). [place] provide cues , steadying assist 3 The helper provides less than half the effort to complete the activity 2 The helper provides more than half the effort to complete the activity 1 Dependent. The helper does all the effort to complete an activity 7 Patient refused to complete or attempt activity 9 The patient did not perform the activity before the current illness or injury 88 Not attempted due to Medical conditions or safety concerns Transfers (B, C, W/C) (FIM): 2 Sit to/from Stand: 2 Bed to/from Chair: 2 Patient assists some with transfer to the left side but resists during transfers to the right side. Patient can sit with min assist, needs cues for positioning and balance. Weight Bearing Right Lower Extremity: Right Full Weight Bearing Left Lower Extremity: Left Full Weight Bearing Treatments Patient was dressed with max assist upper and lower. Patient then transferred to wheelchair and taken to the therapy gym and transferred to table to work on sitting balance, practice with limits of stability, reaching for cones. Patient needs constant cues for positioning and balance. Patient also stood in the parallel bars x2 for about 2-3 min each time with max assist. Assessment Current Status: Poor Progress Patient has poor motivation that is going to make her recovery difficult. PT Short Term Goals Short Term Goals Time Frame: May 10, 2018 Gait (FIM): 0 Distance (FIM): 0=does not occure Wheelchair (FIM): 1 Wheelchair distance (FIM): 1=up to 49 ft Wheelchair Distance: 150' Wheelchair Level of Assist: 3 PT Care Home Goals Care Home Goals PT Care Home Goals Time Frame: May 27, 2018 Transfers (B,C,W/C) (FIM): 3 Sit to Lying (QC): 2 Lying-Sitting on Side/Bed(QC): 2 Sit to Stand (QC): 2 Rollin Roll Left to Right (QC): 2 Chair/Oar-th-Qxufb Xfer(QC): 2 Car Transfer (QC): 2 Does the Patient Walk: No and Walking Goal IS indicated Gait (FIM): 1 Gait distance (FIM): 1=up to 49 ft Distance: 10' Walk 10 feet (QC): 3 Gait Level of Assist: 3 Gait Assistive Device: Walker Jose Luis Wheelchair (FIM): 2 Wheelchair distance (FIM): 1=550-97 ft Distance: 50' Wheelchair Level of Assist: 4 Wheel 50 feet with 2 turns (QC: 3 PT Plan Problem List Problem List: Activity Tolerance, Functional Strength, Safety, Balance, Gait, Transfer, Bed Mobility, ROM Treatment/Plan Treatment Plan: Continue Plan of Care Treatment Plan: Bed Mobility, Concurrent Therapy, Education, Functional Activity Sarah, Functional Strength, Group Therapy, Gait, Safety, Therapeutic Exercise, Transfers Treatment Duration: May 27, 2018 Frequency: At least 5 of 7 days/Wk (IRF) Estimated Hrs Per Day: 1.5 hours per day Patient and/or Family Agrees t: Yes Safety Risks/Education Patient Education: Transfer Techniques, Correct Positioning, Safety Issues Teaching Recipient: Patient Teaching Methods: Demonstration, Discussion Response to Teaching: Reinforcement Needed Time/GCodes Time In: 0800 Time Out: 0900 Total Billed Treatment Time: 60 Total Billed Treatment 1 visit FA 60' Co-treated with OT for the whole 60 min. OT worked on UE positioning, assist with sitting balance and performed dressing. PT worked on transfers, standing, assist with dressing, worked on sitting balance. KATHRINE ODONNELL PT May 08, 2018 09:02
[2018-05-08] MEDS: ASPIRIN E.C. 81 MG (ECOTRIN) TAB PO SCH (09:13)
[2018-05-08] MEDS: MAGNESIUM OXIDE (MAG-OX)400 MG TAB PO SCH ×2 (09:13→17:53)
[2018-05-08] MEDS: PENTOXIFYLLINE ER 400 MG (TRENtal) TAB PO SCH (09:14)
[2018-05-08] MEDS: CARVEDILOL 12.5 MG (COREG) TABLET PO SCH ×2 (09:14→19:44)
[2018-05-08] MEDS: amLODIPine 5 MG (NORVASC) TAB PO SCH (09:14)
[2018-05-08] MEDS: GABAPENTIN 300 MG (NEURONTIN) CAP PO SCH ×2 (09:14→19:44)
[2018-05-08] MEDS: PANTOPRAZOLE 40 MG (PROTONIX) TAB PO SCH (09:14)
[2018-05-08] MEDS: SENNA W/DOCUSATE (SENOKOT S) TABLET PO SCH ×2 (09:14→19:44)
[2018-05-08] MEDS: buPROPion SR 150 MG (WELLBUTRIN SR) TAB PO SCH (09:14)
--- NOTE | 2018-05-08 09:16 | Occupational Ther Daily Note ---
OT Current Status-Daily Note Subjective Pt alert, sitting on BSC. Nrsg present in room. Pt agrees to therapy. Mental Status/Objective Patient Orientation: Person, Place, Time, Situation Therapy Code Descriptions/Definitions Functional [place] Measure: 0=Not Assessed/NA 4=Minimal Assistance 1=Total Assistance 5=Supervision or Setup 2=Maximal Assistance 6=Modified [place] 3=Moderate Assistance 7=Complete [place] ADL-Treatment PT/OT co-treat for skilled care due to pt's decrease in activity tolerance and mobility. PT worked on transfers, dynamic sitting, standing and LE strengthening. OT worked on dressing, toileting, grooming and UE wt bearing. Pt required max A and cues to complete dressing and toileting. Assist to set up for grooming. Pt required physical/verbal cues with transfers and standing. Pt has demonstrated spontaneous movement with L hand. Pt required verbal/ physical/visual cues when sitting on edge of mat table. Standing at parallel bars with max A pt was able to grasp with L hand at time. Assist with UE wt bearing for proper position of UE to decrease stress on joints. Pt stated that her L elbow felt like it was out of place and that her chiropractor was treating her for tennis elbow. Pt does not attempt to position self or stop self from falling toward R side, but will stated that she is falling. Pt will place R hand on surface and push self toward L side. After therapy, pt sitting in recliner with call light/phone in reach. All needs met in room. Therapy Code Descriptions/Definitions Functional [place] Measure: 0=Not Assessed/NA 4=Minimal Assistance 1=Total Assistance 5=Supervision or Setup 2=Maximal Assistance 6=Modified [place] 3=Moderate Assistance 7=Complete [place] Therapy Quality Codes: 6 Independent with activity with or without an assistive device 5 Patient requires set up or clean up by helper. Patient completes activity by themselves 4 Supervision or touching assist (CGA). [place] provide cues , steadying assist 3 The helper provides less than half the effort to complete the activity 2 The helper provides more than half the effort to complete the activity 1 Dependent. The helper does all the effort to complete an activity 7 Patient refused to complete or attempt activity 9 The patient did not perform the activity before the current illness or injury 88 Not attempted due to Medical conditions or safety concerns Upper Body (FIM): 2 Upper Body Dressing (QC): 2 Lower Body Dressing (FIM): 1 Lower Body Dressing (QC): 1 Toileting (FIM): 1 Toileting Hygiene (QC): 1 Transfers (B, C, W/C) (FIM): 1 Toilet/Commode Transfer (FIM): 1 Toilet Transfer (QC): 1 OT Short Term Goals Short Term Goals Time Frame: May 10, 2018 Grooming(FIM): 4 Bathing(FIM): 2 Upper Body Dressing(FIM): 2 Lower Body Dressing(FIM): 2 Toileting(FIM): 2 Toilet/Commode Transfer(FIM): 2 Additional Short Term Goals: 1-Demonstrate ADL Tasks, 2-Verbalize Understanding , 3-ImproveStrength/Sarah 1=Demonstrate adherence to instructed precautions during ADL tasks. 2=Patient will verbalize/demonstrate understanding of assistive devices/ modifications for ADL. 3=Patient will improve strength/tolerance for activity to enable patient to perform ADL's. OT Department Assistant Goals [facility] Goals Time Frame: May 31, 2018 Eating (FIM): 5 Eating (QC): 5 Groomin Oral Hygiene (QC): 5 Bathing(FIM): 3 Shower/Bathe Self (QC): 3 Upper Body Dressing(FIM): 4 Upper Body Dressing (QC): 4 Lower Body Dressing(FIM): 3 Lower Body Dressing (QC): 3 On/Off Footwear (QC): 3 Toileting(FIM): 3 Toileting Hygiene (QC): 3 Toilet/Commode Transfer(FIM): 4 Shower Transfer(FIM): 3 Additional Goals: 1-Demonstrate ADL Tasks, 2-Verbalize Understanding, 3- ImproveStrength/Sarah 1=Demonstrate adherence to instructed precautions during ADL tasks. 2=Patient will verbalize/demonstrate understanding of assistive devices/ modifications for ADL. 3=Patient will improve strength/tolerance for activity to enable patient to perform ADL's. OT Education/Plan Problem List/Assessment Pt admitted to ARU following CVA with left side deficits. Pt currently dependent for transfers and dressing. Pt demonstrates left neglect. Pt to benefit from skilled OT intervention for ADL training, transfers, strengthening , adaptive equipment training as needed, and safety education to increase level of function and allow safe discharge plan. Discharge Recommendations Plan/Recommendations: Continue POC Treatment Plan/Plan of Care Patient would benefit from OT for education, treatment and training to promote independence in ADL's, mobility, safety and/or upper extremity function for ADL' s. Plan of Care: ADL Retraining, Functional Mobility, Group Exercise/Act as Ind, UE Funct Exercise/Act, UE Neuromus Re-Ed/Coord, Visual/Perceptual Retrain Treatment Duration: May 31, 2018 Frequency: At least 5 of 7 days/Wk (IRF) Estimated Hrs Per Day: 1.5 hours per day Agreement: Yes Rehab Potential: Poor Time/GCodes Start Time: 08:00 Stop Time: 09:00 Total Time Billed (hr/min): 60 Billed Treatment Time 1 visit-ADL 1 (15 min) NM 3 (45 min) Co-treat 60 min SAMMI EBLL May 08, 2018 09:16
--- NOTE | 2018-05-08 09:18 | PM&R Progress Note ---
Subjective HPI/CC On Admission Date Seen by Provider: May 08, 2018 Time Seen by Provider: 08:45 CC: Devastating CVA with left sided weakness HPI: This is a 73yoWF clinic patient of [facility] who was transferred from 4th floor after sustaining a devastating CVA w/left sided flaccidity. Patient had a h/o CVA with subtle right sided facial numbness in the past and placed on anticoagulation for PAF noted on REVEAL device placed by Dr Aponte but presented past the tPA window with left sided weakness after found in bed by family. She was seen by Dr Aponte and risk stratification was initiated. Carotid CTA was recommended but due to renal insufficiency that test could not be done. Currently patient is very depressed and will increase Wellbutrin dose and consult Behavioral Health to facilitate management of this new disability. Bowels are moving and catheter was DC and incontinence was noted on 4th floor. Subjective/Events-last exam Pt doing well except for pena catheter is maintained Dr. Mendoza was consulted and started her on Urecholine and Flomax Will discontinue pena catheter in three days Urine culture pending Bowels are not moving as much as she would like and she is on Miralax and Syn as scheduled Overall flat affect continues but it appears it may be personality baseline Review of Systems General: Fatigue Genitourinary: Retention Neurological: Weakness, Incoordination Objective Exam Vital Signs Vital Signs Date Time Temp Pulse Resp B/P (MAP) Pulse Ox O2 Delivery O2 Flow Rate FiO2 05/09/18 09:30 78 18 122/79 (93) 99 Room Air 05/09/18 05:00 97.2 Capillary Refill : General Appearance: No Apparent Distress, WD/WN, Chronically ill, Obese HEENT: PERRL/EOMI, Normal ENT Inspection, Pharynx Normal, Moist Mucous Membranes, Other (left sided facial weakness) Neck: Full Range of Motion, Normal Inspection, Non Tender, Supple Respiratory: Chest Non Tender, Lungs Clear, Normal Breath Sounds, No Accessory Muscle Use, No Respiratory Distress, Decreased Breath Sounds Cardiovascular: Regular Rate, Rhythm, No Edema, No Gallop, No JVD, No Murmur Gastrointestinal: Normal Bowel Sounds, No Organomegaly, No Pulsatile Mass, Non Tender, Soft Back: Normal Inspection, No CVA Tenderness, No Vertebral Tenderness, Decreased Range of Motion Extremity: Normal Capillary Refill, Normal Inspection, Non Tender, No Calf Tenderness, No Pedal Edema, Other (weakness left side) Neurologic/Psychiatric: Alert, Oriented x3, Depressed Affect, Motor Weakness ( left sided weakness 0/5 upper and lower), Other (withdrawn) Skin: Normal Color, Warm/Dry Lymphatic: No Adenopathy Results/Procedures Lab Patient resulted labs reviewed. Assessment/Plan Assessment and Plan Assess & Plan/Chief Complaint Assessment: Devastating CVA w/left sided flaccidity PAF Anticoagulation chronic use even before CVA Severe depression receiving treatment with counselor Anxiety hx Former smoker HTN New bladder incontinence CRI creat 1.8 last check now baseline 1.4 Urinary retention Plan: Intensive therapies Increased Wellbutrin Psych consultation for severe depression is appreciated Check labs adrian creatinine periodically Appreciate Dr Aponte following the patient Overall prognosis dependent on her ability to maintain motivation Pena cath maintained for a few days per Urology and maintain bladder meds (1) Cerebrovascular accident (CVA) with left hemiparesis (2) CVA, old, facial weakness (3) Anticoagulant long-term use (4) Hypertension (5) Paroxysmal atrial fibrillation (6) Incontinence of urine (7) Hyperlipidemia (8) Depression (9) Back pain (10) Urinary retention Clinical Quality Measures DVT/VTE Risk/Contraindication: Risk Factor Score Per Nursin RFS Level Per Nursing on Admit: 4+=Very High SANDY WILLIS DO May 08, 2018 09:18
[2018-05-08] MEDS: LATANOPROST 0.005% (XALATAN) OPHTH SOLN 2.5 ML OU SCH (09:21)
[2018-05-08] MEDS: POLYETHYLENE GLYCOL 17 GM (MIRALAX) PACK PO SCH ×2 (09:21→19:45)
[2018-05-08] MEDS: BRIMONIDINE 0.2% (ALPHAGAN) OPHTH SOLN 5 ML BTL OU SCH ×2 (09:21→19:45)
[2018-05-08] MEDS: LACTULOSE SYRUP 10GM/15ML (ENULOSE) 30ML UDC PO SCH ×2 (09:21→19:45)
--- NOTE | 2018-05-08 10:20 | CONSULTATION REPORT ---
DATE OF SERVICE: 05/08/2018 ATTENDING PHYSICIAN: Dr. You. SUMMARY: After reviewing the patient's records, interviewing her, this is a 73-year-old white lady, who had a CVA that caused the left side paralysis and urinary retention. She denied any previous problems with urinary retention at home. The catheter was inserted. ASSESSMENT: Urinary retention, neurogenic in nature. PLAN: Started on Flomax and Urecholine if okay with Dr. You. We will follow with you. 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
[2018-05-08] MEDS: BETHANECHOL 10 MG (URECHOLINE) TAB PO SCH ×3 (11:48→19:44)
--- NOTE | 2018-05-08 13:49 | Speech Therapy Daily Note ---
Speech Daily Progress Note Subjective Date Seen by Provider: May 08, 2018 Time Seen by Provider: 00:30 Patient was sitting up in her recliner resting after physical therapy when I arrived. Patient appears to be in better spirits. Objective Patient completed memory tasks with 80% accuracy given minimal cues. Assessment Assessment Current Status: Good Progress Treatment Plan Continue Plan of Care Communication Comprehension: 4 Expression: 3 Social Cognition Social Interaction: 3 Problem Solvin Memory: 3 Speech Short Term Goals Short Term Goals Short Term Goals 1) Patient will complete memory tasks for improving safety and independence with 90% or greater. 2) Patient will complete problem solving tasks for improving safety and independence with 90% or greater. Speech Sales Data Analyst Goals Sales Data Analyst Goals Patient will improve safety and independence for achieving highest potential level of function. Speech-Plan Patient/Family Goals Patient/Family Goals: Patient plans to return home with family support post rehab. Treatment Plan Speech Therapy Treatment Plan: Continue Plan of Care Patient is progressing as a result of skilled ST services. Treatment Duration: May 12, 2018 Frequency: 5 times per week Estimated Hrs Per Day: .5 hour per day Rehab Potential: Poor Barriers to Learning: Patient has left side weakness. Pt/Family Agrees to Plan: Yes Safety Risks/Education Teaching Recipient: Patient Teaching Methods: Discussion Response to Teaching: Verbalize Understanding Education Topics Provided: Safety within her room. Time Speech Therapy Time In: 09:30 Speech Therapy Time Out: 10:00 Total Billed Time: 30 Billed Treatment Time [address] May 08, 2018 13:49
--- NOTE | 2018-05-08 14:40 | Therapy Group Daily Note ---
Therapy Daily Group Note Patient Education Topic Other List Below (memory) Exercises LE Seated Exercise, UE Exercise Other/Notes Pt participated in group therapy with 2 to 1 ratio. Goals of Session: Acknowledges understanding of memory strategies for daily use , met. Participated in UE/LE seated exercises to increase strength for functional tasks, met. OT/PT group consisted of introductions (name, place, UE strengthening to choose question), socialization, educational topics (memory strategies) and seated UE/ LE exercises. Pt introduced self appropriately and actively listened to peers. Pt contributed to discussions and contributed to conversations with peers after encouragement. Pt was able to demonstrate good RUE and RLE movement during exercises with AAROM for LUE. Pt able to demonstrate good memory skills with memory activity. Pt will benefit from group by using resources and topics discussed to improve awareness and memory. Pt benefits by being independent and increasing strength in B UE's and B LE. After therapy, pt transported via w /c back to room and laid in bed. Call light/phone in reach. All needs met in room. Start Time: 13:00 Stop Time: 14:05 Total Billed Treatment Time: 65 Total Billed Treatment 1 visit GRP 65 min FELICITA SINGH PT May 08, 2018 14:40
--- NOTE | 2018-05-08 15:43 | NUR ---
results of UA sent to Dr Mendoza via ipsy
[2018-05-08] MEDS: HYDROcodone/APAP 5 MG/325 MG (LORTAB) TAB PO PRN ×2 (16:08→22:06)
[2018-05-08] MEDS: TAMSULOSIN 0.4 MG (FLOMAX) CAP PO SCH (17:53)
[2018-05-08] MEDS: RIVAROXABAN 15 MG TABLET (XARELTO) PO SCH (17:53)
[2018-05-08 18:46] VITALS: BP 113/74
[2018-05-08] MEDS: ATORVASTATIN 20 MG (LIPITOR) TABLET PO SCH (19:44)
[2018-05-09 05:00] VITALS: BP 108/68
[2018-05-09] MEDS: BETHANECHOL 10 MG (URECHOLINE) TAB PO SCH ×4 (05:11→21:15)
[2018-05-09] MEDS: PANTOPRAZOLE 40 MG (PROTONIX) TAB PO SCH (08:04)
[2018-05-09] MEDS: PENTOXIFYLLINE ER 400 MG (TRENtal) TAB PO SCH (08:04)
[2018-05-09] MEDS: ASPIRIN E.C. 81 MG (ECOTRIN) TAB PO SCH (08:04)
[2018-05-09] MEDS: GABAPENTIN 300 MG (NEURONTIN) CAP PO SCH ×2 (08:04→21:15)
[2018-05-09] MEDS: MAGNESIUM OXIDE (MAG-OX)400 MG TAB PO SCH ×2 (08:04→17:17)
[2018-05-09] MEDS: buPROPion SR 150 MG (WELLBUTRIN SR) TAB PO SCH (08:04)
[2018-05-09] MEDS: LACTULOSE SYRUP 10GM/15ML (ENULOSE) 30ML UDC PO SCH ×2 (08:05→19:57)
[2018-05-09] MEDS: POLYETHYLENE GLYCOL 17 GM (MIRALAX) PACK PO SCH ×2 (08:05→19:57)
[2018-05-09] MEDS: CARVEDILOL 12.5 MG (COREG) TABLET PO SCH ×2 (08:05→21:15)
[2018-05-09] MEDS: SENNA W/DOCUSATE (SENOKOT S) TABLET PO SCH ×2 (08:06→19:58)
--- NOTE | 2018-05-09 08:12 | Cardiology Progress Note ---
Subjective Date Seen by Provider: May 09, 2018 Time Seen by Provider: 08:10 Subjective/Events-last exam Patient sitting up in wheelchair, continues to have left sided paralysis. Denies any chest pain or dyspnea. Objective-Cardiology Exam Last Set of Vital Signs Vital Signs 05/09/18 05:00 Temp 97.2 Pulse 75 Resp 18 B/P (MAP) 108/68 (81) Pulse Ox 94 O2 Delivery Room Air Capillary Refill : I&O Intake and Output 05/09/18 00:00 Intake Total 880 ml Output Total 2400 ml Balance -1520 ml Intake Oral 880 ml Output Urine Total 2400 ml # Voids 1 # Bowel Movements 3 General: Alert, Oriented X3, Cooperative HEENT: Atraumatic, PERRLA Neck: Supple, No JVD, No Thyromegaly Lungs: Clear to Auscultation, Normal Air Movement Heart: Regular Rate, Normal S1, Normal S2, No Murmurs Abdomen: Normal Bowel Sounds, Soft, No Tenderness, No Hepatosplenomegaly, No Masses Extremities: No Clubbing, No Cyanosis, No Edema, Normal Pulses, No Tenderness/ Swelling Skin: No Rashes, No Breakdown, No Significant Lesion Neuro: Normal Speech, Sensation Intact, Cranial Nerves 3-12 NL, Other (left sided weakness) Psych/Mental Status: Mental Status NL, Other (flat affect) A/P-Cardiology Admission Diagnosis CVA HTN HLP CRI Assessment/Plan 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 Jaime. Continue to monitor renal function Hypertension, controlled, continue to monitor blood pressure. Hyperlipidemia, monitor lipids Intermediate metabolizer for Plavix History of syncope, no further syncopal episodes were reported Osteoarthritis, rheumatoid arthritis, history of fibromyalgia, history of depression and elevated LPa Depression- on Wellbutrin Clinical Quality Measures DVT/VTE Risk/Contraindication: Risk Factor Score Per Nursin RFS Level Per Nursing on Admit: 4+=Very High DAPHNIE FORREST May 09, 2018 08:12
--- NOTE | 2018-05-09 08:47 | Progress Note-Urology ---
Progress Note-Urology Progress Notes/Assess & Plan Progress/Assessment & Plan TOLERATES FLOMAX AND URECHOLINE WELL. TOV IN 2 DAYS Final Diagnosis URINE RETENTION DANIELE NAIK MD May 09, 2018 08:47
--- NOTE | 2018-05-09 08:56 | PM&R Progress Note ---
Subjective HPI/CC On Admission Date Seen by Provider: May 09, 2018 Time Seen by Provider: 09:00 CC: Devastating CVA with left sided weakness HPI: This is a 73yoWF clinic patient of [facility] who was transferred from 4th floor after sustaining a devastating CVA w/left sided flaccidity. Patient had a h/o CVA with subtle right sided facial numbness in the past and placed on anticoagulation for PAF noted on REVEAL device placed by Dr Aponte but presented past the tPA window with left sided weakness after found in bed by family. She was seen by Dr Aponte and risk stratification was initiated. Carotid CTA was recommended but due to renal insufficiency that test could not be done. Currently patient is very depressed and will increase Wellbutrin dose and consult Behavioral Health to facilitate management of this new disability. Bowels are moving and catheter was DC and incontinence was noted on 4th floor. Subjective/Events-last exam Pt had nausea in the shower and a small amount of emesis. Pt had a lot of loose stools after multiple laxatives given the last several days. Pena catheter still in, urology consulted and will remain in until probably after Urecholine has been started and has been able to work. She called in her own breakfast and ordered her own breakfast today which is the first time she has ever done that. Appears to be slightly more motivated today. Review of Systems General: Fatigue Gastrointestinal: Diarrhea Genitourinary: Retention Neurological: Weakness Objective Exam Vital Signs Vital Signs Date Time Temp Pulse Resp B/P (MAP) Pulse Ox O2 Delivery O2 Flow Rate FiO2 05/09/18 17:12 97.5 76 20 118/80 (93) 98 Room Air Capillary Refill : General Appearance: No Apparent Distress, WD/WN, Chronically ill, Obese HEENT: PERRL/EOMI, Normal ENT Inspection, Pharynx Normal, Moist Mucous Membranes, Other (left sided facial weakness) Neck: Full Range of Motion, Normal Inspection, Non Tender, Supple Respiratory: Chest Non Tender, Lungs Clear, Normal Breath Sounds, No Accessory Muscle Use, No Respiratory Distress, Decreased Breath Sounds Cardiovascular: Regular Rate, Rhythm, No Edema, No Gallop, No JVD, No Murmur Gastrointestinal: Normal Bowel Sounds, No Organomegaly, No Pulsatile Mass, Non Tender, Soft Back: Normal Inspection, No CVA Tenderness, No Vertebral Tenderness, Decreased Range of Motion Extremity: Normal Capillary Refill, Normal Inspection, Non Tender, No Calf Tenderness, No Pedal Edema, Other (weakness left side) Neurologic/Psychiatric: Alert, Oriented x3, Depressed Affect, Motor Weakness ( left sided weakness 0/5 upper and lower), Other (withdrawn) Skin: Normal Color, Warm/Dry Lymphatic: No Adenopathy Results/Procedures Lab Patient resulted labs reviewed. Assessment/Plan Assessment and Plan Assess & Plan/Chief Complaint Assessment: Devastating CVA w/left sided flaccidity PAF Anticoagulation chronic use even before CVA Severe depression receiving treatment with counselor Anxiety hx Former smoker HTN New bladder incontinence CRI creat 1.8 last check now baseline 1.4 Urinary retention Plan: Intensive therapies Increase Wellbutrin Psych consultation for severe depression is appreciated Check labs adrian creatinine periodically Appreciate Dr Aponte following the patient Overall prognosis dependent on her ability to maintain motivation Urinary retention is mangaed by pena catheter and Urecholine and Urology will DC catheter likely in 2 more days (1) Cerebrovascular accident (CVA) with left hemiparesis (2) CVA, old, facial weakness (3) Anticoagulant long-term use (4) Hypertension (5) Paroxysmal atrial fibrillation (6) Incontinence of urine (7) Hyperlipidemia (8) Depression (9) Back pain (10) Urinary retention (11) Pena catheter in place Clinical Quality Measures DVT/VTE Risk/Contraindication: Risk Factor Score Per Nursin RFS Level Per Nursing on Admit: 4+=Very High SANDY WILLIS DO May 09, 2018 08:56
--- NOTE | 2018-05-09 08:57 | Physical Therapy Daily Note ---
PT Daily Note-Current Subjective Patient in wheelchair pre tx, agrees to PT, has no complaints of pain at rest. Will be co-treating with OT due to poor patient sitting and standing balance, poor activity tolerance and endurance, poor strength. Appearance Patient BTB post tx with nurse call, phone, tray, all needs met. OT finishing up with patient. Mental Status Patient Orientation: Person, Place, Situation Transfers Therapy Code Descriptions/Definitions Functional [place] Measure: 0=Not Assessed/NA 4=Minimal Assistance 1=Total Assistance 5=Supervision or Setup 2=Maximal Assistance 6=Modified [place] 3=Moderate Assistance 7=Complete [place] Therapy Quality Codes: 6 Independent with activity with or without an assistive device 5 Patient requires set up or clean up by helper. Patient completes activity by themselves 4 Supervision or touching assist (CGA). [place] provide cues , steadying assist 3 The helper provides less than half the effort to complete the activity 2 The helper provides more than half the effort to complete the activity 1 Dependent. The helper does all the effort to complete an activity 7 Patient refused to complete or attempt activity 9 The patient did not perform the activity before the current illness or injury 88 Not attempted due to Medical conditions or safety concerns Transfers (B, C, W/C) (FIM): 1 Scootin Rollin Supine to/from Sit: 1 Sit to/from Stand: 2 Bed to/from Chair: 2 Weight Bearing Right Lower Extremity: Right Full Weight Bearing Left Lower Extremity: Left Full Weight Bearing Treatments Patient was transferred from wheelchair to shower chair for bathing. She was undressed and taken into shower and bathed. Patient had a dribbling BM during virtually the whole shower. After shower patient became nauseated and dry heaved into an emesis basin. Nursing notified of nausea and BM. Patient continued to have BM almost constantly after shower and drying off and getting a new gown on was difficult. Patient transferred back to bed. PT worked on bed mobility and transfers, sitting balance during bathing and positioning and cleaning. OT worked on dressing, bathing, cleaning and assisted with transfers. Assessment Current Status: Poor Progress Patient nauseated and had a constant dripping BM. Nurse notified. PT Short Term Goals Short Term Goals Time Frame: May 10, 2018 Gait (FIM): 0 Distance (FIM): 0=does not occure Wheelchair (FIM): 1 Wheelchair distance (FIM): 1=up to 49 ft Wheelchair Distance: 150' Wheelchair Level of Assist: 3 PT Shelter Goals Shelter Goals PT General Utility Worker Goals Time Frame: May 27, 2018 Transfers (B,C,W/C) (FIM): 3 Sit to Lying (QC): 2 Lying-Sitting on Side/Bed(QC): 2 Sit to Stand (QC): 2 Rollin Roll Left to Right (QC): 2 Chair/Tfj-do-Hmkej Xfer(QC): 2 Car Transfer (QC): 2 Does the Patient Walk: No and Walking Goal IS indicated Gait (FIM): 1 Gait distance (FIM): 1=up to 49 ft Distance: 10' Walk 10 feet (QC): 3 Gait Level of Assist: 3 Gait Assistive Device: Walker Jose Luis Wheelchair (FIM): 2 Wheelchair distance (FIM): 7=149-84 ft Distance: 50' Wheelchair Level of Assist: 4 Wheel 50 feet with 2 turns (QC: 3 PT Plan Problem List Problem List: Activity Tolerance, Functional Strength, Safety, Balance, Gait, Transfer, Bed Mobility, ROM Treatment/Plan Treatment Plan: Continue Plan of Care Treatment Plan: Bed Mobility, Concurrent Therapy, Education, Functional Activity Sarah, Functional Strength, Group Therapy, Gait, Safety, Therapeutic Exercise, Transfers Treatment Duration: May 27, 2018 Frequency: At least 5 of 7 days/Wk (IRF) Estimated Hrs Per Day: 1.5 hours per day Patient and/or Family Agrees t: Yes Safety Risks/Education Patient Education: Transfer Techniques, Correct Positioning, Safety Issues Teaching Recipient: Patient Teaching Methods: Demonstration, Discussion Response to Teaching: Reinforcement Needed Time/GCodes Time In: 0800 Time Out: 0900 Total Billed Treatment Time: 60 Total Billed Treatment 1 visit FA 60' KATHRINE ODONNELL PT May 09, 2018 08:57
--- NOTE | 2018-05-09 09:12 | Occupational Ther Daily Note ---
OT Current Status-Daily Note Subjective Pt alert, lying in bed. Pt had loose bowels this morning. Pt agrees to therapy. Decreased motivation and awareness with position in space. No intentional movement noted in L UE. Mental Status/Objective Patient Orientation: Person, Place, Time, Situation Therapy Code Descriptions/Definitions Functional [place] Measure: 0=Not Assessed/NA 4=Minimal Assistance 1=Total Assistance 5=Supervision or Setup 2=Maximal Assistance 6=Modified [place] 3=Moderate Assistance 7=Complete [place] ADL-Treatment Co-treat with PT for skilled services due poor patient strength and mobility, sitting balance, endurance. PT worked on transfers, standing and LE strengthening. OT worked on ADLs and functional transfers. Pt required max A for supine to sitting and assist to sit EOB. Pt was transferred to rolling shower chair with max assist, PT transferring and OT manipulating clothing. Assist x2 to cleanse and manipulate after toilet. Pt had loose BM throughout treatment and nausea. Pt completed shower after setup 50% then assist for rest using shower chair with cutout to complete jj care/buttocks. Pt able brush hair after set up. Due to continuous loose bowels, pt donned hospital gown back on for ease during toileting and cleanup. Pt has poor sitting balance and significant L neglect. Pt does attend to L hand and has demonstrated spontaneous movement in flexion. After therapy, pt lying with call light/phone in reach. All needs met in room. Therapy Code Descriptions/Definitions Functional [place] Measure: 0=Not Assessed/NA 4=Minimal Assistance 1=Total Assistance 5=Supervision or Setup 2=Maximal Assistance 6=Modified [place] 3=Moderate Assistance 7=Complete [place] Therapy Quality Codes: 6 Independent with activity with or without an assistive device 5 Patient requires set up or clean up by helper. Patient completes activity by themselves 4 Supervision or touching assist (CGA). [place] provide cues , steadying assist 3 The helper provides less than half the effort to complete the activity 2 The helper provides more than half the effort to complete the activity 1 Dependent. The helper does all the effort to complete an activity 7 Patient refused to complete or attempt activity 9 The patient did not perform the activity before the current illness or injury 88 Not attempted due to Medical conditions or safety concerns Grooming (FIM): 5 Bathing (FIM): 3 Bathing Location: L Upper Leg, R Upper Leg, Chest, Abdomen, Buttocks, Perineal Area Shower/Bathe Self (QC): 3 Toileting (FIM): 1 Toileting Hygiene (QC): 1 Shower Transfer(FIM): 1 OT Short Term Goals Short Term Goals Time Frame: May 10, 2018 Grooming(FIM): 4 Bathing(FIM): 2 Upper Body Dressing(FIM): 2 Lower Body Dressing(FIM): 2 Toileting(FIM): 2 Toilet/Commode Transfer(FIM): 2 Additional Short Term Goals: 1-Demonstrate ADL Tasks, 2-Verbalize Understanding , 3-ImproveStrength/Sarah 1=Demonstrate adherence to instructed precautions during ADL tasks. 2=Patient will verbalize/demonstrate understanding of assistive devices/ modifications for ADL. 3=Patient will improve strength/tolerance for activity to enable patient to perform ADL's. OT Manager Compliance Goals Manager Compliance Goals Time Frame: May 31, 2018 Eating (FIM): 5 Eating (QC): 5 Groomin Oral Hygiene (QC): 5 Bathing(FIM): 3 Shower/Bathe Self (QC): 3 Upper Body Dressing(FIM): 4 Upper Body Dressing (QC): 4 Lower Body Dressing(FIM): 3 Lower Body Dressing (QC): 3 On/Off Footwear (QC): 3 Toileting(FIM): 3 Toileting Hygiene (QC): 3 Toilet/Commode Transfer(FIM): 4 Shower Transfer(FIM): 3 Additional Goals: 1-Demonstrate ADL Tasks, 2-Verbalize Understanding, 3- ImproveStrength/Sarah 1=Demonstrate adherence to instructed precautions during ADL tasks. 2=Patient will verbalize/demonstrate understanding of assistive devices/ modifications for ADL. 3=Patient will improve strength/tolerance for activity to enable patient to perform ADL's. OT Education/Plan Problem List/Assessment Pt admitted to ARU following CVA with left side deficits. Pt currently dependent for transfers and dressing. Pt demonstrates left neglect. Pt to benefit from skilled OT intervention for ADL training, transfers, strengthening , adaptive equipment training as needed, and safety education to increase level of function and allow safe discharge plan. Discharge Recommendations Plan/Recommendations: Continue POC Treatment Plan/Plan of Care Patient would benefit from OT for education, treatment and training to promote independence in ADL's, mobility, safety and/or upper extremity function for ADL' s. Plan of Care: ADL Retraining, Functional Mobility, Group Exercise/Act as Ind, UE Funct Exercise/Act, UE Neuromus Re-Ed/Coord, Visual/Perceptual Retrain Treatment Duration: May 31, 2018 Frequency: At least 5 of 7 days/Wk (IRF) Estimated Hrs Per Day: 1.5 hours per day Agreement: Yes Rehab Potential: Poor Time/GCodes Start Time: 08:00 Stop Time: 09:15 Total Time Billed (hr/min): 75 Billed Treatment Time 1 visit-ADL 5 (75 min) Co-treat with PT [id number] (60 min) Individual 00- 0915 (15 min) SAMMI BELL May 09, 2018 09:12
[2018-05-09 09:30] VITALS: BP 122/79
[2018-05-09] MEDS: amLODIPine 5 MG (NORVASC) TAB PO SCH (09:35)
[2018-05-09] MEDS: LATANOPROST 0.005% (XALATAN) OPHTH SOLN 2.5 ML OU SCH (09:35)
[2018-05-09] MEDS: BRIMONIDINE 0.2% (ALPHAGAN) OPHTH SOLN 5 ML BTL OU SCH ×2 (09:38→21:18)
--- NOTE | 2018-05-09 09:41 | Physical Therapy Daily Note ---
PT Daily Note-Current Subjective Pt on commode with nurse in room and agrees to PT. Mental Status Patient Orientation: Person, Place, Situation, Normal For Age Attachments: Roland Catheter Transfers Therapy Code Descriptions/Definitions Functional [place] Measure: 0=Not Assessed/NA 4=Minimal Assistance 1=Total Assistance 5=Supervision or Setup 2=Maximal Assistance 6=Modified [place] 3=Moderate Assistance 7=Complete [place] Therapy Quality Codes: 6 Independent with activity with or without an assistive device 5 Patient requires set up or clean up by helper. Patient completes activity by themselves 4 Supervision or touching assist (CGA). [place] provide cues , steadying assist 3 The helper provides less than half the effort to complete the activity 2 The helper provides more than half the effort to complete the activity 1 Dependent. The helper does all the effort to complete an activity 7 Patient refused to complete or attempt activity 9 The patient did not perform the activity before the current illness or injury 88 Not attempted due to Medical conditions or safety concerns Transfers (B, C, W/C) (FIM): 2 Sit to/from Stand: 2 Sit to Stand (QC): 2 Weight Bearing Right Lower Extremity: Right Full Weight Bearing Left Lower Extremity: Left Full Weight Bearing Assessment Current Status: Fair Progress Pt was max A x1 with sit<>stand transfer from commode to w/c. Pt able to use RLE to assist with transfer. Nurse performed bathroom skills while PT transferred pt. Pt is now in w/c with pillow for positioning L UE. Pt has call light in R UE. PT Short Term Goals Short Term Goals Time Frame: May 10, 2018 Gait (FIM): 0 Distance (FIM): 0=does not occure Wheelchair (FIM): 1 Wheelchair distance (FIM): 1=up to 49 ft Wheelchair Distance: 150' Wheelchair Level of Assist: 3 PT Prison Goals Prison Goals PT Pad Machine Offbearer Goals Time Frame: May 27, 2018 Transfers (B,C,W/C) (FIM): 3 Sit to Lying (QC): 2 Lying-Sitting on Side/Bed(QC): 2 Sit to Stand (QC): 2 Rollin Roll Left to Right (QC): 2 Chair/Gih-qu-Ojkbt Xfer(QC): 2 Car Transfer (QC): 2 Does the Patient Walk: No and Walking Goal IS indicated Gait (FIM): 1 Gait distance (FIM): 1=up to 49 ft Distance: 10' Walk 10 feet (QC): 3 Gait Level of Assist: 3 Gait Assistive Device: Walker Jose Luis Wheelchair (FIM): 2 Wheelchair distance (FIM): 4=193-49 ft Distance: 50' Wheelchair Level of Assist: 4 Wheel 50 feet with 2 turns (QC: 3 PT Plan Problem List Problem List: Activity Tolerance, Functional Strength, Safety, Balance, Gait, Transfer, Bed Mobility, ROM Treatment/Plan Treatment Plan: Continue Plan of Care Treatment Plan: Bed Mobility, Concurrent Therapy, Education, Functional Activity Sarah, Functional Strength, Group Therapy, Gait, Safety, Therapeutic Exercise, Transfers Treatment Duration: May 27, 2018 Frequency: At least 5 of 7 days/Wk (IRF) Estimated Hrs Per Day: 1.5 hours per day Patient and/or Family Agrees t: Yes Time/GCodes Time In: 740 Time Out: 755 Total Billed Treatment Time: 15 Total Billed Treatment 1 visit FA 15 min FELICITA SINGH PT May 09, 2018 09:41
--- NOTE | 2018-05-09 13:58 | Speech Therapy Daily Note ---
Speech Daily Progress Note Subjective Date Seen by Provider: May 09, 2018 Time Seen by Provider: 00:30 Patient was in a pleasant mood today and participated well with skilled therapy. Objective Patient completed memory tasks related to general information with m80% accuracy given minimal verbal cues and/or repetitions. Assessment Assessment Current Status: Good Progress Treatment Plan Continue Plan of Care Communication Comprehension: 4 Expression: 3 Social Cognition Social Interaction: 3 Problem Solvin Memory: 3 Speech Short Term Goals Short Term Goals Short Term Goals 1) Patient will complete memory tasks for improving safety and independence with 90% or greater. 2) Patient will complete problem solving tasks for improving safety and independence with 90% or greater. Speech Penitentiary Goals Data Warehousing Manager Goals Patient will improve safety and independence for achieving highest potential level of function. Speech-Plan Patient/Family Goals Patient/Family Goals: Patient plans to return home with family support post rehab. Treatment Plan Speech Therapy Treatment Plan: Continue Plan of Care Patient is making good progress as a result of skilled ST services. Treatment Duration: May 12, 2018 Frequency: 5 times per week Estimated Hrs Per Day: .5 hour per day Rehab Potential: Poor Barriers to Learning: Patient has aphasia due to CVA. Safety Risks/Education Teaching Recipient: Patient Teaching Methods: Discussion Response to Teaching: Verbalize Understanding Education Topics Provided: Safety and procedures within her room. Time Speech Therapy Time In: 10:30 Speech Therapy Time Out: 11:00 Total Billed Time: 30 Billed Treatment Time [address] May 09, 2018 13:58
--- NOTE | 2018-05-09 15:38 | NUR ---
Rec'd new orders for Macrobid 100 mg po BID x [address] Mendoza.
--- NOTE | 2018-05-09 16:18 | NUR ---
HAND LASTER faxed clinical updates to [facility] for continued stay review. Due to current functionality and recent admission, HAND LASTER requested an additional 7 days. HAND LASTER will also send TCS following meeting tomorrow.
[2018-05-09] MEDS: RIVAROXABAN 15 MG TABLET (XARELTO) PO SCH (16:43)
[2018-05-09 17:12] VITALS: BP 118/80
[2018-05-09] MEDS: TAMSULOSIN 0.4 MG (FLOMAX) CAP PO SCH (17:17)
[2018-05-09] MEDS: NITROFURANTOIN 100 MG (MACROBID) CAPSULE PO SCH (21:15)
[2018-05-09] MEDS: ATORVASTATIN 20 MG (LIPITOR) TABLET PO SCH (21:15)
[2018-05-10 05:29] VITALS: BP 110/62
[2018-05-10] MEDS: BETHANECHOL 10 MG (URECHOLINE) TAB PO SCH ×4 (06:31→21:10)
[2018-05-10 08:00] VITALS: BP 114/63
--- NOTE | 2018-05-10 08:18 | Cardiology Progress Note ---
Subjective Date Seen by Provider: May 10, 2018 Time Seen by Provider: 08:15 Subjective/Events-last exam Patient is sitting up in chair. No new complaint. Denies any chest pain or dizziness. Objective-Cardiology Exam Last Set of Vital Signs Vital Signs 05/10/18 05:29 Temp 97.3 Pulse 84 Resp 18 B/P (MAP) 110/62 (78) Pulse Ox 93 O2 Delivery Room Air Capillary Refill : I&O Intake and Output 05/10/18 00:00 Intake Total 1460 ml Output Total 2000 ml Balance -540 ml Intake Oral 1460 ml Output Urine Total 2000 ml # Bowel Movements 2 General: Alert, Oriented X3, Cooperative HEENT: Atraumatic, PERRLA Neck: Supple, No JVD, No Thyromegaly Lungs: Clear to Auscultation, Normal Air Movement Heart: Regular Rate, Normal S1, Normal S2, No Murmurs Abdomen: Normal Bowel Sounds, Soft, No Tenderness, No Hepatosplenomegaly, No Masses Extremities: No Clubbing, No Cyanosis, No Edema, Normal Pulses, No Tenderness/ Swelling Skin: No Rashes, No Breakdown, No Significant Lesion Neuro: Normal Speech, Sensation Intact, Cranial Nerves 3-12 NL, Other (left sided weakness) Psych/Mental Status: Mental Status NL, Other (flat affect) A/P-Cardiology Admission Diagnosis CVA HTN HLP CRI Assessment/Plan 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 Jaime. Continue to monitor renal function Hypertension, controlled, continue to monitor blood pressure. Hyperlipidemia, monitor lipids Intermediate metabolizer for Plavix History of syncope, no further syncopal episodes were reported Osteoarthritis, rheumatoid arthritis, history of fibromyalgia, history of depression and elevated LPa Depression- on Wellbutrin Clinical Quality Measures DVT/VTE Risk/Contraindication: Risk Factor Score Per Nursin RFS Level Per Nursing on Admit: 4+=Very High DAPHNIE FORREST May 10, 2018 08:17
[2018-05-10] MEDS: NITROFURANTOIN 100 MG (MACROBID) CAPSULE PO SCH ×2 (08:27→21:10)
[2018-05-10] MEDS: GABAPENTIN 300 MG (NEURONTIN) CAP PO SCH ×2 (08:27→21:10)
[2018-05-10] MEDS: PENTOXIFYLLINE ER 400 MG (TRENtal) TAB PO SCH (08:27)
[2018-05-10] MEDS: MAGNESIUM OXIDE (MAG-OX)400 MG TAB PO SCH ×2 (08:29→17:59)
[2018-05-10] MEDS: amLODIPine 5 MG (NORVASC) TAB PO SCH (08:29)
[2018-05-10] MEDS: PANTOPRAZOLE 40 MG (PROTONIX) TAB PO SCH (08:29)
[2018-05-10] MEDS: buPROPion SR 150 MG (WELLBUTRIN SR) TAB PO SCH (08:29)
[2018-05-10] MEDS: CARVEDILOL 12.5 MG (COREG) TABLET PO SCH ×2 (08:29→21:11)
[2018-05-10] MEDS: ASPIRIN E.C. 81 MG (ECOTRIN) TAB PO SCH (08:30)
[2018-05-10] MEDS: POLYETHYLENE GLYCOL 17 GM (MIRALAX) PACK PO SCH ×2 (08:31→21:11)
--- NOTE | 2018-05-10 08:31 | PM&R Progress Note ---
Subjective HPI/CC On Admission Date Seen by Provider: May 10, 2018 Time Seen by Provider: 08:30 CC: Devastating CVA with left sided weakness HPI: This is a 73yoWF clinic patient of [facility] who was transferred from 4th floor after sustaining a devastating CVA w/left sided flaccidity. Patient had a h/o CVA with subtle right sided facial numbness in the past and placed on anticoagulation for PAF noted on REVEAL device placed by Dr Aponte but presented past the tPA window with left sided weakness after found in bed by family. She was seen by Dr Aponte and risk stratification was initiated. Carotid CTA was recommended but due to renal insufficiency that test could not be done. Currently patient is very depressed and will increase Wellbutrin dose and consult Behavioral Health to facilitate management of this new disability. Bowels are moving and catheter was DC and incontinence was noted on 4th floor. Subjective/Events-last exam Urine culture showed E.coli, Macrobid placed by Dr. Mendoza. Pena still in, likely discontinued tomorrow Maintain on Urecholine Crying episodes are much improved but does have a long standing history of depression PT reports dependent on transfers and moderate assist., occupational therapy and bathing. Speech reports mood is improved Review of Systems General: Fatigue Genitourinary: Retention Neurological: Weakness, Numbness, Incoordination Objective Exam Vital Signs Vital Signs Date Time Temp Pulse Resp B/P (MAP) Pulse Ox O2 Delivery O2 Flow Rate FiO2 05/10/18 20:09 Room Air 05/10/18 18:00 96.8 84 18 127/73 (91) 95 Capillary Refill : General Appearance: No Apparent Distress, WD/WN, Chronically ill, Obese HEENT: PERRL/EOMI, Normal ENT Inspection, Pharynx Normal, Moist Mucous Membranes, Other (left sided facial weakness) Neck: Full Range of Motion, Normal Inspection, Non Tender, Supple Respiratory: Chest Non Tender, Lungs Clear, Normal Breath Sounds, No Accessory Muscle Use, No Respiratory Distress, Decreased Breath Sounds Cardiovascular: Regular Rate, Rhythm, No Edema, No Gallop, No JVD, No Murmur Gastrointestinal: Normal Bowel Sounds, No Organomegaly, No Pulsatile Mass, Non Tender, Soft Back: Normal Inspection, No CVA Tenderness, No Vertebral Tenderness, Decreased Range of Motion Extremity: Normal Capillary Refill, Normal Inspection, Non Tender, No Calf Tenderness, No Pedal Edema, Other (weakness left side) Neurologic/Psychiatric: Alert, Oriented x3, Depressed Affect, Motor Weakness ( left sided weakness 0/5 upper and lower), Other (withdrawn) Skin: Normal Color, Warm/Dry Lymphatic: No Adenopathy Results/Procedures Lab Patient resulted labs reviewed. Assessment/Plan Assessment and Plan Assess & Plan/Chief Complaint Assessment: Devastating CVA w/left sided flaccidity PAF Anticoagulation chronic use even before CVA Severe depression receiving treatment with counselor Anxiety hx Former smoker HTN New bladder incontinence CRI creat 1.8 last check now baseline 1.4 Urinary retention Plan: Intensive therapies Increase Wellbutrin Psych consultation for severe depression is appreciated Check labs adrian creatinine periodically Appreciate Dr Aponte following the patient Overall prognosis dependent on her ability to maintain motivation Urinary retention is mangaed by pena catheter and Urecholine and Urology will DC catheter likely in 1 more day (1) Cerebrovascular accident (CVA) with left hemiparesis (2) CVA, old, facial weakness (3) Anticoagulant long-term use (4) Hypertension (5) Paroxysmal atrial fibrillation (6) Incontinence of urine (7) Hyperlipidemia (8) Depression (9) Back pain (10) Urinary retention (11) Pena catheter in place Clinical Quality Measures DVT/VTE Risk/Contraindication: Risk Factor Score Per Nursin RFS Level Per Nursing on Admit: 4+=Very High SANDY WILLIS DO May 10, 2018 08:31
[2018-05-10] MEDS: BRIMONIDINE 0.2% (ALPHAGAN) OPHTH SOLN 5 ML BTL OU SCH ×2 (08:40→21:11)
[2018-05-10] MEDS: LACTULOSE SYRUP 10GM/15ML (ENULOSE) 30ML UDC PO SCH ×2 (08:44→21:11)
[2018-05-10] MEDS: SENNA W/DOCUSATE (SENOKOT S) TABLET PO SCH ×2 (08:44→21:11)
--- NOTE | 2018-05-10 09:00 | NUR ---
DENIES FURTHER NAUSEA OR PAIN. URINE MUCH CLEARER COMPARED TO TUESDAY. ON .
[2018-05-10] MEDS: LATANOPROST 0.005% (XALATAN) OPHTH SOLN 2.5 ML OU SCH (09:34)
--- NOTE | 2018-05-10 09:42 | Speech Therapy Daily Note ---
Speech Daily Progress Note Subjective Date Seen by Provider: May 10, 2018 Time Seen by Provider: 00:30 Patient was sitting in her recliner when I entered the room for therapy. Patient was cooperative and participated well with therapy. Objective Patient completed memory tasks related to her daily needs with 80% accuracy given minimal cuing. Assessment Assessment Current Status: Good Progress Treatment Plan Continue Plan of Care Communication Comprehension: 4 Expression: 3 Social Cognition Social Interaction: 3 Problem Solvin Memory: 3 Speech Short Term Goals Short Term Goals Short Term Goals 1) Patient will complete memory tasks for improving safety and independence with 90% or greater. 2) Patient will complete problem solving tasks for improving safety and independence with 90% or greater. Speech Mcc Goals Mcc Goals Patient will improve safety and independence for achieving highest potential level of function. Speech-Plan Patient/Family Goals Patient/Family Goals: Patient plans to return home with family support post rehab. Treatment Plan Speech Therapy Treatment Plan: Continue Plan of Care Patient is making good progress as a result of skilled ST services. Treatment Duration: May 18, 2018 Frequency: 5 times per week Estimated Hrs Per Day: .5 hour per day Rehab Potential: Fair Barriers to Learning: Patient has left sided weakness. Pt/Family Agrees to Plan: Yes Safety Risks/Education Teaching Recipient: Patient Teaching Methods: Discussion Response to Teaching: Verbalize Understanding Education Topics Provided: Patient reviewed in personal safety within her room. Time Speech Therapy Time In: 08:30 Speech Therapy Time Out: 09:00 Total Billed Time: 30 Billed Treatment Time 1[address] May 10, 2018 09:42
--- NOTE | 2018-05-10 10:25 | Occupational Ther Daily Note ---
OT Current Status-Daily Note Subjective Pt alert, sitting in recliner. Pt agrees to therapy. No c/o pain at this time. Mental Status/Objective Patient Orientation: Person, Place, Time, Situation Therapy Code Descriptions/Definitions Functional [place] Measure: 0=Not Assessed/NA 4=Minimal Assistance 1=Total Assistance 5=Supervision or Setup 2=Maximal Assistance 6=Modified [place] 3=Moderate Assistance 7=Complete [place] Attachments: Roland Catheter ADL-Treatment Therapy Code Descriptions/Definitions Functional [place] Measure: 0=Not Assessed/NA 4=Minimal Assistance 1=Total Assistance 5=Supervision or Setup 2=Maximal Assistance 6=Modified [place] 3=Moderate Assistance 7=Complete [place] Therapy Quality Codes: 6 Independent with activity with or without an assistive device 5 Patient requires set up or clean up by helper. Patient completes activity by themselves 4 Supervision or touching assist (CGA). [place] provide cues , steadying assist 3 The helper provides less than half the effort to complete the activity 2 The helper provides more than half the effort to complete the activity 1 Dependent. The helper does all the effort to complete an activity 7 Patient refused to complete or attempt activity 9 The patient did not perform the activity before the current illness or injury 88 Not attempted due to Medical conditions or safety concerns Other Treatment PT/OT co-treat for skilled care due to pt's decrease in activity tolerance and mobility. PT worked on transfers, dynamic sitting, standing and LE strengthening. OT worked on dressing, dynamic sitting and UE wt bearing. Pt required max A and cues to complete upper body dressing and dependent for lower body dressing. Pt required physical/verbal cues with transfers and standing. Pt has demonstrated spontaneous movement with L hand. Pt required verbal/ physical/visual cues when sitting on edge of mat table. Standing at parallel bars with max A x2 pt was able to grasp with L hand at time. Assist with L UE wt bearing for proper position to decrease stress on joints. Pt able to hold onto bar with light grasp. Pt does not attempt to position self or stop self from falling toward R side, but will stated that she is falling. Pt will place R hand on surface and push self toward L side. R UE PROM completed. Pt c/o pain at end ranges. After therapy, pt lying in bed with call light/phone in reach. All needs met in room. OT Short Term Goals Short Term Goals Time Frame: May 10, 2018 Grooming(FIM): 4 Bathing(FIM): 2 Upper Body Dressing(FIM): 2 Lower Body Dressing(FIM): 2 Toileting(FIM): 2 Toilet/Commode Transfer(FIM): 2 Additional Short Term Goals: 1-Demonstrate ADL Tasks, 2-Verbalize Understanding , 3-ImproveStrength/Sarah 1=Demonstrate adherence to instructed precautions during ADL tasks. 2=Patient will verbalize/demonstrate understanding of assistive devices/ modifications for ADL. 3=Patient will improve strength/tolerance for activity to enable patient to perform ADL's. OT Publication Distributor Goals Skilled Nursing Goals Time Frame: May 31, 2018 Eating (FIM): 5 Eating (QC): 5 Groomin Oral Hygiene (QC): 5 Bathing(FIM): 3 Shower/Bathe Self (QC): 3 Upper Body Dressing(FIM): 4 Upper Body Dressing (QC): 4 Lower Body Dressing(FIM): 3 Lower Body Dressing (QC): 3 On/Off Footwear (QC): 3 Toileting(FIM): 3 Toileting Hygiene (QC): 3 Toilet/Commode Transfer(FIM): 4 Shower Transfer(FIM): 3 Additional Goals: 1-Demonstrate ADL Tasks, 2-Verbalize Understanding, 3- ImproveStrength/Sarah 1=Demonstrate adherence to instructed precautions during ADL tasks. 2=Patient will verbalize/demonstrate understanding of assistive devices/ modifications for ADL. 3=Patient will improve strength/tolerance for activity to enable patient to perform ADL's. OT Education/Plan Problem List/Assessment Pt admitted to ARU following CVA with left side deficits. Pt currently dependent for transfers and dressing. Pt demonstrates left neglect. Pt to benefit from skilled OT intervention for ADL training, transfers, strengthening , adaptive equipment training as needed, and safety education to increase level of function and allow safe discharge plan. Discharge Recommendations Plan/Recommendations: Continue POC Treatment Plan/Plan of Care Patient would benefit from OT for education, treatment and training to promote independence in ADL's, mobility, safety and/or upper extremity function for ADL' s. Plan of Care: ADL Retraining, Functional Mobility, Group Exercise/Act as Ind, UE Funct Exercise/Act, UE Neuromus Re-Ed/Coord, Visual/Perceptual Retrain Treatment Duration: May 31, 2018 Frequency: At least 5 of 7 days/Wk (IRF) Estimated Hrs Per Day: 1.5 hours per day Agreement: Yes Rehab Potential: Fair Time/GCodes Start Time: 09:00 Stop Time: 10:15 Total Time Billed (hr/min): 75 Billed Treatment Time 1 visit-ADL 1 (15 min) NM 4 (60 min) co-treat for 75 min SAMMI BELL May 10, 2018 10:25
[2018-05-10] MEDS: HYDROcodone/APAP 5 MG/325 MG (LORTAB) TAB PO PRN ×2 (10:37→16:07)
--- NOTE | 2018-05-10 10:40 | NUR ---
MEDICATED WITH LORTAB FOR LEFT ARM PAIN. "THERAPY WORKED IT REAL GOOD".
--- NOTE | 2018-05-10 11:21 | Physical Therapy Daily Note ---
PT Daily Note-Current Subjective Pt sitting in bed upon arrival. Pt agrees to PT/OT co-treat for skilled care due to pt's decrease in activity tolerance and mobility. Pain Location: No Pain Reported Mental Status Patient Orientation: Person, Place, Situation Transfers Therapy Code Descriptions/Definitions Functional [place] Measure: 0=Not Assessed/NA 4=Minimal Assistance 1=Total Assistance 5=Supervision or Setup 2=Maximal Assistance 6=Modified [place] 3=Moderate Assistance 7=Complete [place] Therapy Quality Codes: 6 Independent with activity with or without an assistive device 5 Patient requires set up or clean up by helper. Patient completes activity by themselves 4 Supervision or touching assist (CGA). [place] provide cues , steadying assist 3 The helper provides less than half the effort to complete the activity 2 The helper provides more than half the effort to complete the activity 1 Dependent. The helper does all the effort to complete an activity 7 Patient refused to complete or attempt activity 9 The patient did not perform the activity before the current illness or injury 88 Not attempted due to Medical conditions or safety concerns Scootin Supine to/from Sit: 1 Sit to/from Stand: 1 Sit to Lying (QC): 1 Sit to Stand (QC): 1 Chair/[id number]-Gvwdi Xfer(QC): 1 Bed to/from Chair: 1 Weight Bearing Right Lower Extremity: Right Full Weight Bearing Left Lower Extremity: Left Full Weight Bearing Wheelchair Training Does the Pt Use a Wheelchair?: Yes Wheelchair Distance: 0=227-89 ft Distance: 100' Wheelchair Level of Assist: 1 Wheel 50 ft with 2 turns (QC): 1 Type of Wheelchair: Manual Exercises Seated Therapy Exercises: Sit to stand Seated Reps: 5 Treatments PT worked on transfers, dynamic sitting, standing and LE strengthening. OT worked on dressing, dynamic sitting and UE wt bearing. Pt required max A and cues to complete upper body dressing and dependent for lower body dressing. Pt required physical/verbal cues with transfers and standing. Pt has demonstrated spontaneous movement with L hand. Pt required verbal/physical/visual cues when sitting on edge of mat table. Standing at parallel bars with max A x2 pt was able to grasp with L hand at time. Assist with L UE wt bearing for proper position to decrease stress on joints. Pt able to hold onto bar with light grasp. Pt does not attempt to position self or stop self from falling toward R side, but will stated that she is falling. Pt will place R hand on surface and push self toward L side. R UE PROM completed. Pt c/o pain at end ranges. Pt returns to Supine in bed and completes LE & UE Ex. After therapy, pt lying in bed with call light/phone in reach. All needs met in room. Assessment Current Status: Good Progress Pt is gaining better strength and posture control but still needs VC & Phy. Cues for righting self during sitting and standing. PT Short Term Goals Short Term Goals Time Frame: May 10, 2018 Gait (FIM): 0 Distance (FIM): 0=does not occure Wheelchair (FIM): 1 Wheelchair distance (FIM): 1=up to 49 ft Wheelchair Distance: 150' Wheelchair Level of Assist: 3 PT Skilled Nursing Goals Skilled Nursing Goals PT Skilled Nursing Goals Time Frame: May 27, 2018 Transfers (B,C,W/C) (FIM): 3 Sit to Lying (QC): 2 Lying-Sitting on Side/Bed(QC): 2 Sit to Stand (QC): 2 Rollin Roll Left to Right (QC): 2 Chair/Ljl-zz-Rwrns Xfer(QC): 2 Car Transfer (QC): 2 Does the Patient Walk: No and Walking Goal IS indicated Gait (FIM): 1 Gait distance (FIM): 1=up to 49 ft Distance: 10' Walk 10 feet (QC): 3 Gait Level of Assist: 3 Gait Assistive Device: Walker Jose Luis Wheelchair (FIM): 2 Wheelchair distance (FIM): 2=781-87 ft Distance: 50' Wheelchair Level of Assist: 4 Wheel 50 feet with 2 turns (QC: 3 PT Plan Problem List Problem List: Activity Tolerance, Functional Strength, Safety, Balance, Gait, Transfer, Bed Mobility, ROM Treatment/Plan Treatment Plan: Continue Plan of Care Treatment Plan: Bed Mobility, Concurrent Therapy, Education, Functional Activity Sarah, Functional Strength, Group Therapy, Gait, Safety, Therapeutic Exercise, Transfers Treatment Duration: May 27, 2018 Frequency: At least 5 of 7 days/Wk (IRF) Estimated Hrs Per Day: 1.5 hours per day Patient and/or Family Agrees t: Yes Safety Risks/Education Patient Education: Transfer Techniques, Correct Positioning, Safety Issues Teaching Recipient: Patient Teaching Methods: Discussion Response to Teaching: Reinforcement Needed Time/GCodes Time In: 900 Time Out: 1015 Total Billed Treatment Time: 75 Total Billed Treatment 1, EX x2 (30m) & FA x3 (45m) Co-treat for 75m G Codes Necessary: JAYDEN Monsivais PTA May 10, 2018 11:21
--- NOTE | 2018-05-10 15:44 | NUR ---
BOARD DESIGN ENGINEER attempted to review TCS with patient; however, due to fatigue from therapy, patient was asleep. BOARD DESIGN ENGINEER will visit patient tomorrow to review.
--- NOTE | 2018-05-10 15:46 | Cardiology Progress Note ---
Subjective Date Seen by Provider: May 10, 2018 Time Seen by Provider: 15:00 Subjective/Events-last exam Patient is laying down in bed, feeling better, having some numbness on her left side Review of Systems General: No Chills, No Night Sweats, No Fatigue, No Malaise, No Appetite, No Other HEENT: No Head Aches, No Visual Changes, No Eye Pain, No Ear Pain, No Dysphasia , No Sinus Congestion, No Post Nasal Drip, No Sore Throat, No Other Pulmonary: No Dyspnea, No Cough, No Pleuritic Chest Pain, No Other Cardiovascular: No: Chest Pain, Palpitations, Orthopnea, Paroxysmal Noc. Dyspnea, Edema, Lt Headedness, Other Objective-Cardiology Exam Last Set of Vital Signs Vital Signs 05/10/18 05/10/18 05/10/18 05:29 08:00 09:00 Temp 97.3 Pulse 81 Resp 18 B/P (MAP) 114/63 (80) Pulse Ox 93 O2 Delivery Room Air Capillary Refill : I&O Intake and Output 05/10/18 00:00 Intake Total 1460 ml Output Total 2000 ml Balance -540 ml Intake Oral 1460 ml Output Urine Total 2000 ml # Bowel Movements 2 General: Alert, Oriented X3, Cooperative HEENT: Atraumatic, PERRLA Neck: Supple, No JVD, No Thyromegaly Lungs: Clear to Auscultation, Normal Air Movement Heart: Regular Rate, Normal S1, Normal S2, No Murmurs Abdomen: Normal Bowel Sounds, Soft, No Tenderness, No Hepatosplenomegaly, No Masses Extremities: No Clubbing, No Cyanosis, No Edema, Normal Pulses, No Tenderness/ Swelling Skin: No Rashes, No Breakdown, No Significant Lesion Neuro: Normal Speech, Sensation Intact, Cranial Nerves 3-12 NL, Other (left sided weakness) Psych/Mental Status: Mental Status NL, Other (flat affect) A/P-Cardiology Admission Diagnosis CVA HTN HLP CRI Assessment/Plan 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 Jaime. Continue to monitor renal function Hypertension, controlled, continue to monitor blood pressure. Hyperlipidemia, monitor lipids Intermediate metabolizer for Plavix History of syncope, no further syncopal episodes were reported Osteoarthritis, rheumatoid arthritis, history of fibromyalgia, history of depression and elevated LPa Depression- on Wellbutrin Clinical Quality Measures DVT/VTE Risk/Contraindication: Risk Factor Score Per Nursin RFS Level Per Nursing on Admit: 4+=Very High DOMI MARTINEZ MD May 10, 2018 3:46 pm
[2018-05-10] MEDS: RIVAROXABAN 15 MG TABLET (XARELTO) PO SCH (16:07)
[2018-05-10] MEDS: TAMSULOSIN 0.4 MG (FLOMAX) CAP PO SCH (17:59)
[2018-05-10 18:00] VITALS: BP 127/73
[2018-05-10] MEDS: ATORVASTATIN 20 MG (LIPITOR) TABLET PO SCH (21:10)
[2018-05-11 05:22] VITALS: BP 120/78
--- NOTE | 2018-05-11 05:24 | PM&R Progress Note ---
Subjective HPI/CC On Admission Date Seen by Provider: May 11, 2018 Time Seen by Provider: 08:30 CC: Devastating CVA with left sided weakness HPI: This is a 73yoWF clinic patient of [facility] who was transferred from 4th floor after sustaining a devastating CVA w/left sided flaccidity. Patient had a h/o CVA with subtle right sided facial numbness in the past and placed on anticoagulation for PAF noted on REVEAL device placed by Dr Aponte but presented past the tPA window with left sided weakness after found in bed by family. She was seen by Dr Aponte and risk stratification was initiated. Carotid CTA was recommended but due to renal insufficiency that test could not be done. Currently patient is very depressed and will increase Wellbutrin dose and consult Behavioral Health to facilitate management of this new disability. Bowels are moving and catheter was DC and incontinence was noted on 4th floor. Subjective/Events-last exam Pt had a better day Pt had better eye contact today. Less depression and hopelessness noted. Will discontinue catheter after approved by Dr. Mendoza. Maintain on Urecholine. Maintain on Macrobid for UTI E. Coli. Bowels are moving. Participating in therapies. Will likely need to go to a care home and Dr. Aponte and I did confer. Review of Systems General: Fatigue Neurological: Weakness Objective Exam Vital Signs Vital Signs Date Time Temp Pulse Resp B/P (MAP) Pulse Ox O2 Delivery O2 Flow Rate FiO2 05/12/18 09:14 Room Air 05/12/18 08:00 89 117/88 (98) 05/12/18 05:22 96.9 20 95 Capillary Refill : General Appearance: No Apparent Distress, WD/WN, Chronically ill, Obese HEENT: PERRL/EOMI, Normal ENT Inspection, Pharynx Normal, Moist Mucous Membranes, Other (left sided facial weakness) Neck: Full Range of Motion, Normal Inspection, Non Tender, Supple Respiratory: Chest Non Tender, Lungs Clear, Normal Breath Sounds, No Accessory Muscle Use, No Respiratory Distress, Decreased Breath Sounds Cardiovascular: Regular Rate, Rhythm, No Edema, No Gallop, No JVD, No Murmur Gastrointestinal: Normal Bowel Sounds, No Organomegaly, No Pulsatile Mass, Non Tender, Soft Back: Normal Inspection, No CVA Tenderness, No Vertebral Tenderness, Decreased Range of Motion Extremity: Normal Capillary Refill, Normal Inspection, Non Tender, No Calf Tenderness, No Pedal Edema, Other (weakness left side) Neurologic/Psychiatric: Alert, Oriented x3, Depressed Affect, Motor Weakness ( left sided weakness 0/5 upper and lower), Other (withdrawn) Skin: Normal Color, Warm/Dry Lymphatic: No Adenopathy Results/Procedures Lab Patient resulted labs reviewed. Assessment/Plan Assessment and Plan Assess & Plan/Chief Complaint Assessment: Devastating CVA w/left sided flaccidity PAF Anticoagulation chronic use even before CVA Severe depression receiving treatment with counselor Anxiety hx Former smoker HTN New bladder incontinence CRI creat 1.8 last check now baseline 1.4 Urinary retention Plan: Intensive therapies Increased Wellbutrin Psych consultation for severe depression soon after admit was appreciated Check labs adrian creatinine periodically Appreciate Dr Aponte following the patient Overall prognosis dependent on her ability to maintain motivation Urinary retention is managed with Urecholine and Urology (1) Cerebrovascular accident (CVA) with left hemiparesis (2) CVA, old, facial weakness (3) Anticoagulant long-term use (4) Hypertension (5) Paroxysmal atrial fibrillation (6) Incontinence of urine (7) Hyperlipidemia (8) Depression (9) Back pain (10) Urinary retention Clinical Quality Measures DVT/VTE Risk/Contraindication: Risk Factor Score Per Nursin RFS Level Per Nursing on Admit: 4+=Very High SANDY WILLIS DO May 11, 2018 05:23
[2018-05-11] MEDS: BETHANECHOL 10 MG (URECHOLINE) TAB PO SCH ×4 (06:05→19:53)
[2018-05-11 08:00] VITALS: BP 119/78
--- NOTE | 2018-05-11 08:29 | Cardiology Progress Note ---
Subjective Date Seen by Provider: May 11, 2018 Time Seen by Provider: 08:28 Subjective/Events-last exam Patient is in a chair, no new complaint Review of Systems General: No Chills, No Night Sweats, No Fatigue, No Malaise, No Appetite, No Other HEENT: No Head Aches, No Visual Changes, No Eye Pain, No Ear Pain, No Dysphasia , No Sinus Congestion, No Post Nasal Drip, No Sore Throat, No Other Pulmonary: No Dyspnea, No Cough, No Pleuritic Chest Pain, No Other Cardiovascular: No: Chest Pain, Palpitations, Orthopnea, Paroxysmal Noc. Dyspnea, Edema, Lt Headedness, Other Objective-Cardiology Exam Last Set of Vital Signs Vital Signs 05/11/18 05:22 Temp 98.2 Pulse 100 Resp 18 B/P (MAP) 120/78 (92) Pulse Ox 95 O2 Delivery Room Air Capillary Refill : I&O Intake and Output 05/10/18 23:59 Intake Total 1480 ml Output Total 2075 ml Balance -595 ml Intake Oral 1480 ml Output Urine Total 2075 ml # Bowel Movements 3 General: Alert, Oriented X3, Cooperative HEENT: Atraumatic, PERRLA Neck: Supple, No JVD, No Thyromegaly Lungs: Clear to Auscultation, Normal Air Movement Heart: Regular Rate, Normal S1, Normal S2, No Murmurs Abdomen: Normal Bowel Sounds, Soft, No Tenderness, No Hepatosplenomegaly, No Masses Extremities: No Clubbing, No Cyanosis, No Edema, Normal Pulses, No Tenderness/ Swelling Skin: No Rashes, No Breakdown, No Significant Lesion Neuro: Normal Speech, Sensation Intact, Cranial Nerves 3-12 NL, Other (left sided weakness) Psych/Mental Status: Mental Status NL, Other (flat affect) A/P-Cardiology Admission Diagnosis CVA HTN HLP CRI Assessment/Plan 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 Jaime. Continue to monitor renal function Hypertension, controlled, continue to monitor blood pressure. Hyperlipidemia, monitor lipids Intermediate metabolizer for Plavix History of syncope, no further syncopal episodes were reported Osteoarthritis, rheumatoid arthritis, history of fibromyalgia, history of depression and elevated LPa Depression- on Wellbutrin Clinical Quality Measures DVT/VTE Risk/Contraindication: Risk Factor Score Per Nursin RFS Level Per Nursing on Admit: 4+=Very High DOMI MARTINEZ MD May 11, 2018 08:29
[2018-05-11] MEDS: HYDROcodone/APAP 5 MG/325 MG (LORTAB) TAB PO PRN ×2 (08:54→15:25)
[2018-05-11] MEDS: ASPIRIN E.C. 81 MG (ECOTRIN) TAB PO SCH (08:54)
[2018-05-11] MEDS: NITROFURANTOIN 100 MG (MACROBID) CAPSULE PO SCH ×2 (08:55→19:53)
[2018-05-11] MEDS: PENTOXIFYLLINE ER 400 MG (TRENtal) TAB PO SCH (08:55)
[2018-05-11] MEDS: amLODIPine 5 MG (NORVASC) TAB PO SCH (08:55)
[2018-05-11] MEDS: buPROPion SR 150 MG (WELLBUTRIN SR) TAB PO SCH (08:55)
[2018-05-11] MEDS: CARVEDILOL 12.5 MG (COREG) TABLET PO SCH ×2 (08:55→19:53)
[2018-05-11] MEDS: BRIMONIDINE 0.2% (ALPHAGAN) OPHTH SOLN 5 ML BTL OU SCH ×2 (08:56→19:53)
[2018-05-11] MEDS: MAGNESIUM OXIDE (MAG-OX)400 MG TAB PO SCH ×2 (08:56→18:32)
[2018-05-11] MEDS: GABAPENTIN 300 MG (NEURONTIN) CAP PO SCH ×2 (08:56→19:53)
[2018-05-11] MEDS: PANTOPRAZOLE 40 MG (PROTONIX) TAB PO SCH (08:56)
[2018-05-11] MEDS: LACTULOSE SYRUP 10GM/15ML (ENULOSE) 30ML UDC PO SCH ×2 (08:57→19:38)
[2018-05-11] MEDS: LATANOPROST 0.005% (XALATAN) OPHTH SOLN 2.5 ML OU SCH (08:57)
[2018-05-11] MEDS: POLYETHYLENE GLYCOL 17 GM (MIRALAX) PACK PO SCH ×2 (08:57→19:38)
[2018-05-11] MEDS: SENNA W/DOCUSATE (SENOKOT S) TABLET PO SCH ×2 (08:58→19:53)
--- NOTE | 2018-05-11 10:09 | NUR ---
PT EATING FAIRLY WELL, 73% MEALS. FAMILY BRINGING IN FOOD. INTAKE CLOSE TO MEETING NEEDS. CONT TO FOLLOW.
--- NOTE | 2018-05-11 11:05 | Progress Note-Urology ---
Progress Note-Urology Progress Notes/Assess & Plan Progress/Assessment & Plan TOV TODAY Final Diagnosis URINE RETENTION DANIELE NAIK MD May 11, 2018 11:05
--- NOTE | 2018-05-11 11:45 | Physical Therapy Daily Note ---
PT Daily Note-Current Subjective Patient in recliner pre tx, agrees to PT, has no complaints of pain at rest. Will be co-treating with OT for treatment this morning due to poor patient strength, endurance, standing and sitting balance and showering. Appearance Patient in wheelchair post tx finishing up with OT for some dressing and grooming. Mental Status Patient Orientation: Person, Place, Situation Transfers Therapy Code Descriptions/Definitions Functional [place] Measure: 0=Not Assessed/NA 4=Minimal Assistance 1=Total Assistance 5=Supervision or Setup 2=Maximal Assistance 6=Modified [place] 3=Moderate Assistance 7=Complete [place] Therapy Quality Codes: 6 Independent with activity with or without an assistive device 5 Patient requires set up or clean up by helper. Patient completes activity by themselves 4 Supervision or touching assist (CGA). [place] provide cues , steadying assist 3 The helper provides less than half the effort to complete the activity 2 The helper provides more than half the effort to complete the activity 1 Dependent. The helper does all the effort to complete an activity 7 Patient refused to complete or attempt activity 9 The patient did not perform the activity before the current illness or injury 88 Not attempted due to Medical conditions or safety concerns Transfers (B, C, W/C) (FIM): 2 Sit to/from Stand: 3 Bed to/from Chair: 2 Patient resists transfers to the right side more today, very difficult transfer due to this. Patient needs cues for positioning and safety. Weight Bearing Right Lower Extremity: Right Full Weight Bearing Left Lower Extremity: Left Full Weight Bearing Gait Training Gait (FIM): 1 Distance: 8'x3 Gait Level of Assist: 2 Gait Persons Needed: 1 Gait Assistive Device: Parallel Bars Patient is able to step through with right leg but needs assist to advance her left, leans heavily to the left side, OT helped with ambulation and positioning of left arm. Wheelchair Training Does the Pt Use a Wheelchair?: Yes Wheelchair (FIM): 2 Distance: 100' Wheelchair Level of Assist: 3 Type of Wheelchair: Manual Patient needs assist with pushing and turning wheelchair, uses her right arm and leg. Neuromuscular sitting balance activities with cones, reaching, limits of stability training Treatments transfers, ambulation, balance training, wheelchair mobility, training, showering, dressing Assessment Current Status: Poor Progress patient did start to ambulate today but will probably not be doing any functional gait in the future PT Short Term Goals Short Term Goals Time Frame: May 10, 2018 Gait (FIM): 0 Distance (FIM): 0=does not occure Wheelchair (FIM): 1 Wheelchair distance (FIM): 1=up to 49 ft Wheelchair Distance: 100' Wheelchair Level of Assist: 3 PT Field Crop Farming Supervisor Goals Field Crop Farming Supervisor Goals PT Field Crop Farming Supervisor Goals Time Frame: May 27, 2018 Transfers (B,C,W/C) (FIM): 3 Sit to Lying (QC): 2 Lying-Sitting on Side/Bed(QC): 2 Sit to Stand (QC): 2 Rollin Roll Left to Right (QC): 2 Chair/Otf-we-Ktpbg Xfer(QC): 2 Car Transfer (QC): 2 Does the Patient Walk: No and Walking Goal IS indicated Gait (FIM): 1 Gait distance (FIM): 1=up to 49 ft Distance: 10' Walk 10 feet (QC): 3 Gait Level of Assist: 3 Gait Assistive Device: Walker Jose Luis Wheelchair (FIM): 2 Wheelchair distance (FIM): 8=016-79 ft Distance: 50' Wheelchair Level of Assist: 4 Wheel 50 feet with 2 turns (QC: 3 PT Plan Problem List Problem List: Activity Tolerance, Functional Strength, Safety, Balance, Gait, Transfer, Bed Mobility, ROM Treatment/Plan Treatment Plan: Continue Plan of Care Treatment Plan: Bed Mobility, Concurrent Therapy, Education, Functional Activity Sarah, Functional Strength, Group Therapy, Gait, Safety, Therapeutic Exercise, Transfers Treatment Duration: May 27, 2018 Frequency: At least 5 of 7 days/Wk (IRF) Estimated Hrs Per Day: 1.5 hours per day Patient and/or Family Agrees t: Yes Safety Risks/Education Patient Education: Gait Training, Transfer Techniques, Correct Positioning, W/ C Management, Safety Issues Teaching Recipient: Patient Teaching Methods: Demonstration, Discussion Response to Teaching: Reinforcement Needed Time/GCodes Time In: 1015 Time Out: 1130 Total Billed Treatment Time: 75 Total Billed Treatment 1 visit GT 15' WCH 15' NM 30' FA 15' PT and OT co-treated for the whole 75'. PT worked on transfers, ambulation, wheelchair mobility, dressing, bathing (positioning), sitting balance. OT worked on balance, dressing, bathing, UE positioning during ambulation, transfers. KATHRINE ODONNELL PT May 11, 2018 11:45
--- NOTE | 2018-05-11 12:39 | Occupational Ther Daily Note ---
OT Current Status-Daily Note Mental Status/Objective Therapy Code Descriptions/Definitions Functional [place] Measure: 0=Not Assessed/NA 4=Minimal Assistance 1=Total Assistance 5=Supervision or Setup 2=Maximal Assistance 6=Modified [place] 3=Moderate Assistance 7=Complete [place] ADL-Treatment Co-treat with PT for skilled services due poor patient strength and mobility, sitting balance, endurance. PT worked on transfers, standing and LE strengthening. OT worked on ADLs and functional transfers. Pt required max A for supine to sitting and assist to sit EOB. Pt was transferred to rolling shower chair with max assist, PT transferring and OT manipulating clothing. Pt completed shower after setup 50% then assist for rest using shower chair with cutout to complete jj care/buttocks. Poor sitting balance throughout ADLs. Pt able brush hair after set up. After set up pt able to brush mouth, assist to cleanse dentures, pt applied dentures. Assist to thread L UE into sleeve, pt threaded R UE and head, assist to pull down back. Max A x2 to hike pants over hips. Max A to don/doff lower body clothing over LE's. Pt has poor sitting balance and significant L neglect. Pt does attend to L hand and has demonstrated spontaneous movement in flexion. After therapy, pt sitting in recliner with call light/phone in reach. All needs met in room. Therapy Code Descriptions/Definitions Functional [place] Measure: 0=Not Assessed/NA 4=Minimal Assistance 1=Total Assistance 5=Supervision or Setup 2=Maximal Assistance 6=Modified [place] 3=Moderate Assistance 7=Complete [place] Therapy Quality Codes: 6 Independent with activity with or without an assistive device 5 Patient requires set up or clean up by helper. Patient completes activity by themselves 4 Supervision or touching assist (CGA). [place] provide cues , steadying assist 3 The helper provides less than half the effort to complete the activity 2 The helper provides more than half the effort to complete the activity 1 Dependent. The helper does all the effort to complete an activity 7 Patient refused to complete or attempt activity 9 The patient did not perform the activity before the current illness or injury 88 Not attempted due to Medical conditions or safety concerns Grooming (FIM): 3 Oral Hygiene (QC): 2 Bathing (FIM): 3 Bathing Location: R Arm, L Upper Leg, R Upper Leg, Chest, Abdomen, Perineal Area Shower/Bathe Self (QC): 3 Upper Body (FIM): 3 Upper Body Dressing (QC): 3 Lower Body Dressing (FIM): 1 Lower Body Dressing (QC): 1 On/Off Footwear (QC): 2 Shower Transfer(FIM): 1 Other Treatment Pt required verbal/physical/visual cues when sitting on edge of mat table. Standing at parallel bars with max A x2 pt was able to grasp with L hand at times. Assist with L UE wt bearing for proper position to decrease stress on joints. Pt able to hold onto bar with light grasp. Pt does not attempt to position self or stop self from falling toward R side, but will stated that she is falling. Pt will place R hand on surface and push self toward L side. R UE PROM completed. OT Short Term Goals Short Term Goals Time Frame: May 10, 2018 Grooming(FIM): 4 Bathing(FIM): 2 Upper Body Dressing(FIM): 2 Lower Body Dressing(FIM): 2 Toileting(FIM): 2 Toilet/Commode Transfer(FIM): 2 Additional Short Term Goals: 1-Demonstrate ADL Tasks, 2-Verbalize Understanding , 3-ImproveStrength/Sarah 1=Demonstrate adherence to instructed precautions during ADL tasks. 2=Patient will verbalize/demonstrate understanding of assistive devices/ modifications for ADL. 3=Patient will improve strength/tolerance for activity to enable patient to perform ADL's. OT Senior Living Goals Quarter Backer Goals Time Frame: May 31, 2018 Eating (FIM): 5 Eating (QC): 5 Groomin Oral Hygiene (QC): 5 Bathing(FIM): 3 Shower/Bathe Self (QC): 3 Upper Body Dressing(FIM): 4 Upper Body Dressing (QC): 4 Lower Body Dressing(FIM): 3 Lower Body Dressing (QC): 3 On/Off Footwear (QC): 3 Toileting(FIM): 3 Toileting Hygiene (QC): 3 Toilet/Commode Transfer(FIM): 4 Shower Transfer(FIM): 3 Additional Goals: 1-Demonstrate ADL Tasks, 2-Verbalize Understanding, 3- ImproveStrength/Sarah 1=Demonstrate adherence to instructed precautions during ADL tasks. 2=Patient will verbalize/demonstrate understanding of assistive devices/ modifications for ADL. 3=Patient will improve strength/tolerance for activity to enable patient to perform ADL's. OT Education/Plan Problem List/Assessment Pt admitted to ARU following CVA with left side deficits. Pt currently dependent for transfers and dressing. Pt demonstrates left neglect. Pt to benefit from skilled OT intervention for ADL training, transfers, strengthening , adaptive equipment training as needed, and safety education to increase level of function and allow safe discharge plan. Discharge Recommendations Plan/Recommendations: Continue POC Treatment Plan/Plan of Care Patient would benefit from OT for education, treatment and training to promote independence in ADL's, mobility, safety and/or upper extremity function for ADL' s. Plan of Care: ADL Retraining, Functional Mobility, Group Exercise/Act as Ind, UE Funct Exercise/Act, UE Neuromus Re-Ed/Coord, Visual/Perceptual Retrain Treatment Duration: May 31, 2018 Frequency: At least 5 of 7 days/Wk (IRF) Estimated Hrs Per Day: 1.5 hours per day Agreement: Yes Rehab Potential: Fair Time/GCodes Start Time: 10:15 Stop Time: 11:55 Total Time Billed (hr/min): 100 Billed Treatment Time 1 visit-NM 3 (45 min) ADL 4 (60 min) Co-treat with PT 75 min ([id number]), individual 25 min ([id number]) SAMMI BELL May 11, 2018 12:39
--- NOTE | 2018-05-11 13:33 | Speech Therapy Daily Note ---
Speech Daily Progress Note Subjective Date Seen by Provider: May 11, 2018 Time Seen by Provider: 00:30 Patient c/o a headache which she thought she had gotten from lack of neck control secondary the CVA. Objective Patient completed memory tasks related to her daily needs with 80% accuracy given a few repetitions. Assessment Assessment Current Status: Good Progress Treatment Plan Continue Plan of Care Communication Comprehension: 4 Expression: 3 Social Cognition Social Interaction: 3 Problem Solvin Memory: 3 Speech Short Term Goals Short Term Goals Short Term Goals 1) Patient will complete memory tasks for improving safety and independence with 90% or greater. 2) Patient will complete problem solving tasks for improving safety and independence with 90% or greater. Speech Mcfp Goals Keyboard Action Assembler Goals Patient will improve safety and independence for achieving highest potential level of function. Speech-Plan Patient/Family Goals Patient/Family Goals: Patient plans to return home post rehab. Treatment Plan Speech Therapy Treatment Plan: Continue Plan of Care Patient is making good progress as a result of skilled ST services. Treatment Duration: May 18, 2018 Frequency: 5 times per week Estimated Hrs Per Day: .5 hour per day Rehab Potential: Fair Barriers to Learning: Patient has left sided weakness. Pt/Family Agrees to Plan: Yes Safety Risks/Education Teaching Recipient: Patient Teaching Methods: Discussion Response to Teaching: Verbalize Understanding Education Topics Provided: Patient's safety within her room and when she returns home. Time Speech Therapy Time In: 08:30 Speech Therapy Time Out: 09:00 Total Billed Time: 30 Billed Treatment Time [address] May 11, 2018 13:33
--- NOTE | 2018-05-11 15:21 | NUR ---
INSURANCE AUDITOR met with patient and daughter to review Team Conference Summary. As patient continues to require dependent assistance with transfers, wheelchair mobility, bed mobility and mod assistance with bathing. Patient has not regained functional or intention movement in LUE and continues to exhibit L sided neglect. With currently functionality, team has recommended progress re-evaluation at next team conference on 05/17. Team also expresses concern with patients motivation and participation. INSURANCE AUDITOR discussed these concerns with patient; she acknowledges this, but becomes tearful. Therapy, RN and patient report enhanced mood with antidepressants with hopefulness of enhanced motivation. Patient is agreeable for re-evaluation. INSURANCE AUDITOR contacted patients insurance provider to verify SNF benefits. Due to lack of secondary insurance, patient has only 20 full covered SNF days, following 80 days will require $170/day copay. Patients daughter reports patient is financially capable of paying privately for SNF, if needed. INSURANCE AUDITOR also presented option of 24hour care in the home. INSURANCE AUDITOR sent updated clinical information to insurance provider for continued stay review, an additional 7 days were granted. INSURANCE AUDITOR will continue to follow for discharge planning needs.
--- NOTE | 2018-05-11 16:00 | NUR ---
Double End Chucking Machine Operator follow up with pt, her daughter, and family friend whom pt has known since she was 18. Pt and her visitors welcomed me to join them. Daughter demonstrated attentiveness to pt: pt said she was cold and that her neck was hurting. Daughter covered her with an additional blanket and adjusted pt's pillow until she said she was comfortable. Pt said she appreciated our past visit and requested follow up as able. Double End Chucking Machine Operator welcomed pt to let staff know to call if immediate or time-sensitive support was desired.
[2018-05-11 17:22] VITALS: BP 97/63
[2018-05-11] MEDS: RIVAROXABAN 15 MG TABLET (XARELTO) PO SCH (18:32)
[2018-05-11] MEDS: TAMSULOSIN 0.4 MG (FLOMAX) CAP PO SCH (18:32)
--- NOTE | 2018-05-11 19:34 | NUR ---
Bladder scan 231cc. Prior to this patient was unable to void. server will continue to monitor.
[2018-05-11] MEDS: ATORVASTATIN 20 MG (LIPITOR) TABLET PO SCH (19:52)
--- NOTE | 2018-05-11 20:15 | NUR ---
Up to bsc with mod-max assist x2. Pt voided 350cc light chidi urine in bsc. Pt requires total assist for jj-care and to pull up brief. Back to bed with mod-max assist x2 and positioned on left side. Pt michael well.
[2018-05-12 05:22] VITALS: BP 104/72
[2018-05-12] MEDS: BETHANECHOL 10 MG (URECHOLINE) TAB PO SCH ×4 (05:44→20:37)
[2018-05-12 08:00] VITALS: BP 117/88
[2018-05-12] MEDS: POLYETHYLENE GLYCOL 17 GM (MIRALAX) PACK PO SCH ×2 (08:20→20:43)
[2018-05-12] MEDS: NITROFURANTOIN 100 MG (MACROBID) CAPSULE PO SCH ×2 (08:23→20:37)
[2018-05-12] MEDS: LACTULOSE SYRUP 10GM/15ML (ENULOSE) 30ML UDC PO SCH ×2 (08:23→20:44)
[2018-05-12] MEDS: PENTOXIFYLLINE ER 400 MG (TRENtal) TAB PO SCH (08:23)
[2018-05-12] MEDS: ASPIRIN E.C. 81 MG (ECOTRIN) TAB PO SCH (08:23)
[2018-05-12] MEDS: PANTOPRAZOLE 40 MG (PROTONIX) TAB PO SCH (08:23)
[2018-05-12] MEDS: buPROPion SR 150 MG (WELLBUTRIN SR) TAB PO SCH (08:23)
[2018-05-12] MEDS: SENNA W/DOCUSATE (SENOKOT S) TABLET PO SCH ×2 (08:24→20:44)
[2018-05-12] MEDS: amLODIPine 5 MG (NORVASC) TAB PO SCH (08:24)
[2018-05-12] MEDS: GABAPENTIN 300 MG (NEURONTIN) CAP PO SCH ×2 (08:24→20:37)
[2018-05-12] MEDS: MAGNESIUM OXIDE (MAG-OX)400 MG TAB PO SCH ×2 (08:24→16:37)
[2018-05-12] MEDS: CARVEDILOL 12.5 MG (COREG) TABLET PO SCH ×2 (08:24→20:37)
[2018-05-12] MEDS: BRIMONIDINE 0.2% (ALPHAGAN) OPHTH SOLN 5 ML BTL OU SCH ×2 (08:25→20:38)
[2018-05-12] MEDS: LATANOPROST 0.005% (XALATAN) OPHTH SOLN 2.5 ML OU SCH (08:26)
--- NOTE | 2018-05-12 08:40 | PM&R Progress Note ---
Subjective HPI/CC On Admission Date Seen by Provider: May 12, 2018 Time Seen by Provider: 08:40 CC: Devastating CVA with left sided weakness HPI: This is a 73yoWF clinic patient of [facility] who was transferred from 4th floor after sustaining a devastating CVA w/left sided flaccidity. Patient had a h/o CVA with subtle right sided facial numbness in the past and placed on anticoagulation for PAF noted on REVEAL device placed by Dr Aponte but presented past the tPA window with left sided weakness after found in bed by family. She was seen by Dr Aponte and risk stratification was initiated. Carotid CTA was recommended but due to renal insufficiency that test could not be done. Currently patient is very depressed and will increase Wellbutrin dose and consult Behavioral Health to facilitate management of this new disability. Bowels are moving and catheter was DC and incontinence was noted on 4th floor. Subjective/Events-last exam Urinating well without catheter Conferred with Dr Mendoza during his rounds Bowels as varied so we talked about taking meds periodically and maintain regularity Denies pain Appears improved overall Review of Systems General: Fatigue Neurological: Weakness Objective Exam Vital Signs Vital Signs Date Time Temp Pulse Resp B/P (MAP) Pulse Ox O2 Delivery O2 Flow Rate FiO2 05/12/18 09:14 Room Air 05/12/18 08:00 89 117/88 (98) 05/12/18 05:22 96.9 20 95 Capillary Refill : General Appearance: No Apparent Distress, WD/WN, Chronically ill, Obese HEENT: PERRL/EOMI, Normal ENT Inspection, Pharynx Normal, Moist Mucous Membranes, Other Neck: Full Range of Motion, Normal Inspection, Non Tender, Supple Respiratory: Chest Non Tender, Lungs Clear, Normal Breath Sounds, No Accessory Muscle Use, No Respiratory Distress, Decreased Breath Sounds Cardiovascular: Regular Rate, Rhythm, No Edema, No Gallop, No JVD, No Murmur Gastrointestinal: Normal Bowel Sounds, No Organomegaly, No Pulsatile Mass, Non Tender, Soft Back: Normal Inspection, No CVA Tenderness, No Vertebral Tenderness, Decreased Range of Motion Extremity: Normal Capillary Refill, Normal Inspection, Non Tender, No Calf Tenderness, No Pedal Edema, Other Neurologic/Psychiatric: Alert, Oriented x3, Depressed Affect, Motor Weakness, Other Skin: Normal Color, Warm/Dry Lymphatic: No Adenopathy Results/Procedures Lab Patient resulted labs reviewed. Assessment/Plan Assessment and Plan Assess & Plan/Chief Complaint Assessment: Devastating CVA w/left sided flaccidity PAF Anticoagulation chronic use even before CVA Severe depression receiving treatment with counselor Anxiety hx Former smoker HTN New bladder incontinence since CVA CRI creat 1.8 last check now baseline 1.4 Urinary retention now resolved and catheter DC maintained on Urecholine Plan: Intensive therapies Increase Wellbutrin Psych consultation for severe depression is appreciated Check labs adrian creatinine periodically Appreciate Dr Aponte following the patient Overall prognosis dependent on her ability to maintain motivation Urinary retention is managed by Dr Mendoza (1) Cerebrovascular accident (CVA) with left hemiparesis (2) CVA, old, facial weakness (3) Anticoagulant long-term use (4) Hypertension (5) Paroxysmal atrial fibrillation (6) Incontinence of urine (7) Hyperlipidemia (8) Depression (9) Back pain (10) Urinary retention (11) Roland catheter in place Clinical Quality Measures DVT/VTE Risk/Contraindication: Risk Factor Score Per Nursin RFS Level Per Nursing on Admit: 4+=Very High SANDY WILLIS DO May 12, 2018 08:39
--- NOTE | 2018-05-12 09:00 | Progress Note-Urology ---
Progress Note-Urology Progress Notes/Assess & Plan Progress/Assessment & Plan VOIDING ON OWN. NO PVR DONE YESTERDAY. DO ONE TODAY Final Diagnosis URINE RETENTION DANIELE NAIK MD May 12, 2018 09:00
[2018-05-12] MEDS: HYDROcodone/APAP 5 MG/325 MG (LORTAB) TAB PO PRN ×2 (09:05→16:36)
--- NOTE | 2018-05-12 10:53 | Cardiology Progress Note ---
Subjective Date Seen by Provider: May 12, 2018 Time Seen by Provider: 10:52 Subjective/Events-last exam Patient is receiving therapy, no new complaint, no chest pain or palpitations Review of Systems General: No Chills, No Night Sweats, No Fatigue, No Malaise, No Appetite, No Other HEENT: No Head Aches, No Visual Changes, No Eye Pain, No Ear Pain, No Dysphasia , No Sinus Congestion, No Post Nasal Drip, No Sore Throat, No Other Pulmonary: No Dyspnea, No Cough, No Pleuritic Chest Pain, No Other Cardiovascular: No: Chest Pain, Palpitations, Orthopnea, Paroxysmal Noc. Dyspnea, Edema, Lt Headedness, Other Objective-Cardiology Exam Last Set of Vital Signs Vital Signs 05/12/18 05/12/18 05/12/18 05:22 08:00 09:14 Temp 96.9 Pulse 89 Resp 20 B/P (MAP) 117/88 (98) Pulse Ox 95 O2 Delivery Room Air Capillary Refill : I&O Intake and Output 05/12/18 00:00 Intake Total 1530 ml Output Total 1975 ml Balance -445 ml Intake Oral 1530 ml Output Urine Total 1975 ml Bladder Scan Volume Amount 231 ml General: Alert, Oriented X3, Cooperative HEENT: Atraumatic, PERRLA Neck: Supple, No JVD, No Thyromegaly Lungs: Clear to Auscultation, Normal Air Movement Heart: Regular Rate, Normal S1, Normal S2, No Murmurs Abdomen: Normal Bowel Sounds, Soft, No Tenderness, No Hepatosplenomegaly, No Masses Extremities: No Clubbing, No Cyanosis, No Edema, Normal Pulses, No Tenderness/ Swelling Skin: No Rashes, No Breakdown, No Significant Lesion Neuro: Normal Speech, Sensation Intact, Cranial Nerves 3-12 NL, Other (left sided weakness) Psych/Mental Status: Mental Status NL, Other (flat affect) A/P-Cardiology Admission Diagnosis CVA HTN HLP CRI Assessment/Plan 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 Jaime. Continue to monitor renal function Hypertension, controlled, continue to monitor blood pressure. Hyperlipidemia, monitor lipids Intermediate metabolizer for Plavix History of syncope, no further syncopal episodes were reported Osteoarthritis, rheumatoid arthritis, history of fibromyalgia, history of depression and elevated LPa Depression- on Wellbutrin Clinical Quality Measures DVT/VTE Risk/Contraindication: Risk Factor Score Per Nursin RFS Level Per Nursing on Admit: 4+=Very High DMOI MARTINEZ MD May 12, 2018 10:53
--- NOTE | 2018-05-12 11:07 | Physical Therapy Daily Note ---
PT Daily Note-Current Subjective Patient on commode pre tx, agrees to PT, has no complaints of pain at rest. Will be co-treating with OT due to poor patient balance, transfers, weakness, endurance. Appearance Patient on commode post tx with nurse in the room. Mental Status Patient Orientation: Person, Place, Situation Transfers Therapy Code Descriptions/Definitions Functional [place] Measure: 0=Not Assessed/NA 4=Minimal Assistance 1=Total Assistance 5=Supervision or Setup 2=Maximal Assistance 6=Modified [place] 3=Moderate Assistance 7=Complete [place] Therapy Quality Codes: 6 Independent with activity with or without an assistive device 5 Patient requires set up or clean up by helper. Patient completes activity by themselves 4 Supervision or touching assist (CGA). [place] provide cues , steadying assist 3 The helper provides less than half the effort to complete the activity 2 The helper provides more than half the effort to complete the activity 1 Dependent. The helper does all the effort to complete an activity 7 Patient refused to complete or attempt activity 9 The patient did not perform the activity before the current illness or injury 88 Not attempted due to Medical conditions or safety concerns Transfers (B, C, W/C) (FIM): 2 Scootin Rollin Supine to/from Sit: 2 Sit to/from Stand: 2 Bed to/from Chair: 2 Patient resists transfers to the right side, leans heavily to the left side, cues for hand placement with every transfer. Patient practiced rolling x5 to the right side and a couple of time to the left. Patient needs a lot of extra time and cues and assist to roll to the right side. Attempted transfer training with SPT to the right side but patient just could not turn to sit even with cues and proper positioning. Weight Bearing Right Lower Extremity: Right Full Weight Bearing Left Lower Extremity: Left Full Weight Bearing Gait Training Gait (FIM): 1 Distance: 8'x3 Gait Level of Assist: 2 Gait Persons Needed: 1 Gait Assistive Device: Parallel Bars Wheelchair follow, patient can advance her right leg but needs assist to advance her left, needs assist with balance, leans heavily to the left side. Wheelchair Training Does the Pt Use a Wheelchair?: Yes Wheelchair (FIM): 2 Distance: 100'x2 Wheelchair Level of Assist: 4 Type of Wheelchair: Manual Min assist to help patient around obstacles and through doorways. Exercises Supine Ex: Bridging, Quad Set, Glut sets, Heel Slides, Short Arc Quads, Straight leg raise, Hip abd/add Supine Reps: 20 Patient attempted AAROM on the left side with SLR, hip abd, heel slides, and SAQ but she could not and it was just PROM. PT also performed left ankle stretching. Treatments PT performed bed mobility and transfer training, ambulation, LE strengthening and ROM, wheelchair mobility training, OT performed UE ROM and positioning during all mobility and assist with transfers and wheelchair mobility. Assessment Current Status: Poor Progress Patient has trouble with motivation and will often just stop and stare into space and not participate. Even when she does participate she performs a minimal amount. PT Short Term Goals Short Term Goals Time Frame: May 10, 2018 Gait (FIM): 0 Distance (FIM): 0=does not occure Wheelchair (FIM): 1 Wheelchair distance (FIM): 1=up to 49 ft Wheelchair Distance: 100' Wheelchair Level of Assist: 3 PT Global Compensation Manager Goals M[facility] Goals PT Global Compensation Manager Goals Time Frame: May 27, 2018 Transfers (B,C,W/C) (FIM): 3 Sit to Lying (QC): 2 Lying-Sitting on Side/Bed(QC): 2 Sit to Stand (QC): 2 Rollin Roll Left to Right (QC): 2 Chair/[id number] Xfer(QC): 2 Car Transfer (QC): 2 Does the Patient Walk: No and Walking Goal IS indicated Gait (FIM): 1 Gait distance (FIM): 1=up to 49 ft Distance: 10' Walk 10 feet (QC): 3 Gait Level of Assist: 3 Gait Assistive Device: Walker Jose Luis Wheelchair (FIM): 2 Wheelchair distance (FIM): 0=813-66 ft Distance: 50' Wheelchair Level of Assist: 4 Wheel 50 feet with 2 turns (QC: 3 PT Plan Problem List Problem List: Activity Tolerance, Functional Strength, Safety, Balance, Gait, Transfer, Bed Mobility, ROM Treatment/Plan Treatment Plan: Continue Plan of Care Treatment Plan: Bed Mobility, Concurrent Therapy, Education, Functional Activity Sarah, Functional Strength, Group Therapy, Gait, Safety, Therapeutic Exercise, Transfers Treatment Duration: May 27, 2018 Frequency: At least 5 of 7 days/Wk (IRF) Estimated Hrs Per Day: 1.5 hours per day Patient and/or Family Agrees t: Yes Safety Risks/Education Patient Education: Gait Training, Transfer Techniques, Correct Positioning, W/ C Management, Safety Issues Teaching Recipient: Patient Teaching Methods: Demonstration, Discussion Response to Teaching: Reinforcement Needed Time/GCodes Time In: 0950 Time Out: 1105 Total Billed Treatment Time: 75 Total Billed Treatment 1 visit GT 15' WCH 15' EX 15' FA 30' PT and OT co-treated for the whole 75 min. KATHRINE ODONNELL PT May 12, 2018 11:07
--- NOTE | 2018-05-12 11:15 | Occupational Ther Daily Note ---
OT Current Status-Daily Note Subjective Pt alert, sitting on toilet with nrsg. Pt agrees to therapy. No c/o pain at this time. Mental Status/Objective Patient Orientation: Person, Place, Time, Situation Therapy Code Descriptions/Definitions Functional [place] Measure: 0=Not Assessed/NA 4=Minimal Assistance 1=Total Assistance 5=Supervision or Setup 2=Maximal Assistance 6=Modified [place] 3=Moderate Assistance 7=Complete [place] ADL-Treatment PT/OT co-treat for skilled care due to pt's decrease in activity tolerance and mobility. PT worked on transfers, dynamic sitting, standing and LE strengthening. OT worked on toileting, dynamic sitting and UE wt bearing. Pt required max A and cues to complete upper body dressing and dependent for lower body dressing. Pt required physical/verbal cues with transfers and standing. Pt has demonstrated spontaneous movement with L hand. Pt required verbal/ physical/visual cues when sitting on edge of mat table. Standing at parallel bars with max A x2 pt was able to grasp with L hand at time. Assist with L UE wt bearing for proper position to decrease stress on joints. Pt able to hold onto bar with light grasp. Pt does not attempt to position self or stop self from falling toward R side, but will stated that she is falling. Pt will place R hand on surface and push self toward L side. R UE PROM completed. Increased tone L LE. Pt dependent with toileting. After therapy, pt lying in bed with call light/phone in reach. All needs met in room. Therapy Code Descriptions/Definitions Functional [place] Measure: 0=Not Assessed/NA 4=Minimal Assistance 1=Total Assistance 5=Supervision or Setup 2=Maximal Assistance 6=Modified [place] 3=Moderate Assistance 7=Complete [place] Therapy Quality Codes: 6 Independent with activity with or without an assistive device 5 Patient requires set up or clean up by helper. Patient completes activity by themselves 4 Supervision or touching assist (CGA). [place] provide cues , steadying assist 3 The helper provides less than half the effort to complete the activity 2 The helper provides more than half the effort to complete the activity 1 Dependent. The helper does all the effort to complete an activity 7 Patient refused to complete or attempt activity 9 The patient did not perform the activity before the current illness or injury 88 Not attempted due to Medical conditions or safety concerns Toileting (FIM): 1 Toileting Hygiene (QC): 1 Toilet/Commode Transfer (FIM): 2 Toilet Transfer (QC): 2 OT Short Term Goals Short Term Goals Time Frame: May 10, 2018 Grooming(FIM): 4 Bathing(FIM): 2 Upper Body Dressing(FIM): 2 Lower Body Dressing(FIM): 2 Toileting(FIM): 2 Toilet/Commode Transfer(FIM): 2 Additional Short Term Goals: 1-Demonstrate ADL Tasks, 2-Verbalize Understanding , 3-ImproveStrength/Sarah 1=Demonstrate adherence to instructed precautions during ADL tasks. 2=Patient will verbalize/demonstrate understanding of assistive devices/ modifications for ADL. 3=Patient will improve strength/tolerance for activity to enable patient to perform ADL's. OT Snf Goals Greenhouse Instructor Goals Time Frame: May 31, 2018 Eating (FIM): 5 Eating (QC): 5 Groomin Oral Hygiene (QC): 5 Bathing(FIM): 3 Shower/Bathe Self (QC): 3 Upper Body Dressing(FIM): 4 Upper Body Dressing (QC): 4 Lower Body Dressing(FIM): 3 Lower Body Dressing (QC): 3 On/Off Footwear (QC): 3 Toileting(FIM): 3 Toileting Hygiene (QC): 3 Toilet/Commode Transfer(FIM): 4 Shower Transfer(FIM): 3 Additional Goals: 1-Demonstrate ADL Tasks, 2-Verbalize Understanding, 3- ImproveStrength/Sarah 1=Demonstrate adherence to instructed precautions during ADL tasks. 2=Patient will verbalize/demonstrate understanding of assistive devices/ modifications for ADL. 3=Patient will improve strength/tolerance for activity to enable patient to perform ADL's. OT Education/Plan Problem List/Assessment Assessment: Impaired Self-Care Skills, Restricted Funct UE ROM, Visual- Perceptual Deficit Pt admitted to ARU following CVA with left side deficits. Pt currently dependent for transfers and dressing. Pt demonstrates left neglect. Pt to benefit from skilled OT intervention for ADL training, transfers, strengthening , adaptive equipment training as needed, and safety education to increase level of function and allow safe discharge plan. Discharge Recommendations Plan/Recommendations: Continue POC Treatment Plan/Plan of Care Patient would benefit from OT for education, treatment and training to promote independence in ADL's, mobility, safety and/or upper extremity function for ADL' s. Plan of Care: ADL Retraining, Functional Mobility, Group Exercise/Act as Ind, UE Funct Exercise/Act, UE Neuromus Re-Ed/Coord, Visual/Perceptual Retrain Treatment Duration: May 31, 2018 Frequency: At least 5 of 7 days/Wk (IRF) Estimated Hrs Per Day: 1.5 hours per day Agreement: Yes Rehab Potential: Fair Time/GCodes Start Time: 09:50 Stop Time: 11:05 Total Time Billed (hr/min): 75 Billed Treatment Time 1 visit-ADL 1 (10 min) NM 4 (65 min) co-treat 75 min SAMMI BELL May 12, 2018 11:14
--- NOTE | 2018-05-12 11:27 | Speech Therapy Daily Note ---
Speech Daily Progress Note Subjective Date Seen by Provider: May 12, 2018 Time Seen by Provider: 00:30 Patient was sitting up in her recliner resting when I arrived in the patient's room. Objective Patient completed problem solving tasks with 90% accuracy given minimal cues. Patient was provided word search activities to complete over the weekend. Assessment Assessment Current Status: Good Progress Treatment Plan Continue Plan of Care Communication Comprehension: 4 Expression: 3 Social Cognition Social Interaction: 3 Problem Solvin Memory: 3 Speech Short Term Goals Short Term Goals Short Term Goals 1) Patient will complete memory tasks for improving safety and independence with 90% or greater. 2) Patient will complete problem solving tasks for improving safety and independence with 90% or greater. Speech [facility] Nurse Goals [facility] Goals Patient will improve safety and independence for achieving highest potential level of function. Speech-Plan Patient/Family Goals Patient/Family Goals: Patient plans to return home with family support post rehab. Treatment Plan Speech Therapy Treatment Plan: Continue Plan of Care Patient is making progress with cognitive function as a result of skilled ST. Treatment Duration: May 18, 2018 Frequency: 5 times per week Estimated Hrs Per Day: .5 hour per day Rehab Potential: Fair Barriers to Learning: Patient has total left sided weakness. Pt/Family Agrees to Plan: Yes Safety Risks/Education Teaching Recipient: Patient Teaching Methods: Discussion Response to Teaching: Verbalize Understanding Education Topics Provided: Patient's safety within her room. Time Speech Therapy Time In: 08:30 Speech Therapy Time Out: 09:00 Total Billed Time: 30 Billed Treatment Time [address] May 12, 2018 11:27
--- NOTE | 2018-05-12 14:23 | NUR ---
Cheryl is a 73 yo female admitted to ARU d/t a CVA. Patient is A&O X4 and has reported slight lower back pain this morning. Pain has been controlled with PRN medication and repositioning. Cheryl recently had her pena cath removed yesterday and has experienced some issues voiding today, Dr. Mendoza is aware and wants to give Cheryl time to void. Random bladder scan at 1115 revealed 168cc present. No other issues noted at this time. Patient is resting comfortable in bed. This nurse will continue to monitor patient.
[2018-05-12] MEDS: TAMSULOSIN 0.4 MG (FLOMAX) CAP PO SCH (16:37)
[2018-05-12] MEDS: RIVAROXABAN 15 MG TABLET (XARELTO) PO SCH (16:37)
[2018-05-12 17:10] VITALS: BP 117/66
--- NOTE | 2018-05-12 19:10 | NUR ---
bedside report received from TOSHA PATEL, assume care of pt
--- NOTE | 2018-05-12 19:40 | NUR ---
up to commode with 2 people assist & gait belt
--- NOTE | 2018-05-12 20:00 | NUR ---
back to bed had small soft brown BM, repositioned on side with hob elevated
[2018-05-12 20:25] VITALS: BP 109/72
[2018-05-12] MEDS: ATORVASTATIN 20 MG (LIPITOR) TABLET PO SCH (20:37)
--- NOTE | 2018-05-12 20:37 | NUR ---
refused Enulose, MiraLAX & [place] HAD BIG BLOW OUT TODAY, TOOK MEDS WITHOUT CHOKING
--- NOTE | 2018-05-12 20:55 | NUR ---
ASSESSMENTS & INTERVENTIONS COMPLETED, SEE ASSESSMENTS & INTERVENTIONS, SCORED 10 ON NIH STROKE SCALE
--- NOTE | 2018-05-12 22:30 | NUR ---
UP TO COMMODE VOIDED 250ML CLEAR LIGHT AMARJIT COLORED URINE
--- NOTE | 2018-05-12 22:40 | NUR ---
POST VOID BLADDER SCAN SHOWED 15ML
[2018-05-13 05:52] VITALS: BP 111/82
[2018-05-13] MEDS: BETHANECHOL 10 MG (URECHOLINE) TAB PO SCH ×4 (06:09→20:15)
--- NOTE | 2018-05-13 06:30 | NUR ---
to commode with 2 person assist the to chair
--- NOTE | 2018-05-13 07:06 | NUR ---
bedside report given to TOSHA PATEL
[2018-05-13 09:00] VITALS: BP 120/84
[2018-05-13] MEDS: amLODIPine 5 MG (NORVASC) TAB PO SCH (09:03)
[2018-05-13] MEDS: ASPIRIN E.C. 81 MG (ECOTRIN) TAB PO SCH (09:03)
[2018-05-13] MEDS: CARVEDILOL 12.5 MG (COREG) TABLET PO SCH ×2 (09:03→20:15)
[2018-05-13] MEDS: GABAPENTIN 300 MG (NEURONTIN) CAP PO SCH ×2 (09:03→20:15)
[2018-05-13] MEDS: PENTOXIFYLLINE ER 400 MG (TRENtal) TAB PO SCH (09:03)
[2018-05-13] MEDS: PANTOPRAZOLE 40 MG (PROTONIX) TAB PO SCH (09:03)
[2018-05-13] MEDS: NITROFURANTOIN 100 MG (MACROBID) CAPSULE PO SCH ×2 (09:03→20:15)
[2018-05-13] MEDS: buPROPion SR 150 MG (WELLBUTRIN SR) TAB PO SCH (09:03)
[2018-05-13] MEDS: MAGNESIUM OXIDE (MAG-OX)400 MG TAB PO SCH ×2 (09:04→18:42)
[2018-05-13] MEDS: HYDROcodone/APAP 5 MG/325 MG (LORTAB) TAB PO PRN ×2 (09:14→20:15)
[2018-05-13] MEDS: BRIMONIDINE 0.2% (ALPHAGAN) OPHTH SOLN 5 ML BTL OU SCH ×2 (09:17→20:24)
[2018-05-13] MEDS: LATANOPROST 0.005% (XALATAN) OPHTH SOLN 2.5 ML OU SCH (09:17)
[2018-05-13] MEDS: LACTULOSE SYRUP 10GM/15ML (ENULOSE) 30ML UDC PO SCH ×2 (09:21→20:18)
[2018-05-13] MEDS: SENNA W/DOCUSATE (SENOKOT S) TABLET PO SCH ×2 (09:21→20:27)
[2018-05-13] MEDS: POLYETHYLENE GLYCOL 17 GM (MIRALAX) PACK PO SCH ×2 (09:21→20:26)
--- NOTE | 2018-05-13 10:12 | Progress Note-Urology ---
Progress Note-Urology Progress Notes/Assess & Plan Progress/Assessment & Plan VOIDING WELL. PVR 63 Final Diagnosis URINE RETENTION DANIELE NAIK MD May 13, 2018 10:12
--- NOTE | 2018-05-13 11:02 | PM&R Progress Note ---
Subjective HPI/CC On Admission Date Seen by Provider: May 13, 2018 Time Seen by Provider: 10:45 CC: Devastating CVA with left sided weakness HPI: This is a 73yoWF clinic patient of [facility] who was transferred from 4th floor after sustaining a devastating CVA w/left sided flaccidity. Patient had a h/o CVA with subtle right sided facial numbness in the past and placed on anticoagulation for PAF noted on REVEAL device placed by Dr Aponte but presented past the tPA window with left sided weakness after found in bed by family. She was seen by Dr Aponte and risk stratification was initiated. Carotid CTA was recommended but due to renal insufficiency that test could not be done. Currently patient is very depressed and will increase Wellbutrin dose and consult Behavioral Health to facilitate management of this new disability. Bowels are moving and catheter was DC and incontinence was noted on 4th floor. Subjective/Events-last exam Urinating better without catheter and increased Urecholine to 25mg AC/HS Dr Mendoza managing bladder dysfunction and his expertise is appreciated Bowels as varied and still working on regularity Denies pain at this time except left neck Appears improved overall Review of Systems General: Fatigue Genitourinary: Retention Musculoskeletal: neck pain Neurological: Weakness Objective Exam Vital Signs Vital Signs Date Time Temp Pulse Resp B/P (MAP) Pulse Ox O2 Delivery O2 Flow Rate FiO2 05/14/18 09:45 97.5 82 20 102/61 (75) 98 Room Air Capillary Refill : General Appearance: No Apparent Distress, WD/WN, Chronically ill, Obese HEENT: PERRL/EOMI, Normal ENT Inspection, Pharynx Normal, Moist Mucous Membranes, Other Neck: Full Range of Motion, Normal Inspection, Non Tender, Supple Respiratory: Chest Non Tender, Lungs Clear, Normal Breath Sounds, No Accessory Muscle Use, No Respiratory Distress, Decreased Breath Sounds Cardiovascular: Regular Rate, Rhythm, No Edema, No Gallop, No JVD, No Murmur Gastrointestinal: Normal Bowel Sounds, No Organomegaly, No Pulsatile Mass, Non Tender, Soft Back: Normal Inspection, No CVA Tenderness, No Vertebral Tenderness, Decreased Range of Motion Extremity: Normal Capillary Refill, Normal Inspection, Non Tender, No Calf Tenderness, No Pedal Edema, Other Neurologic/Psychiatric: Alert, Oriented x3, Depressed Affect, Motor Weakness, Other Skin: Normal Color, Warm/Dry Lymphatic: No Adenopathy Results/Procedures Lab Patient resulted labs reviewed. Assessment/Plan Assessment and Plan Assess & Plan/Chief Complaint Assessment: Devastating CVA w/left sided flaccidity PAF Anticoagulation chronic use even before CVA Severe depression receiving treatment with counselor Anxiety hx Former smoker HTN New bladder incontinence since CVA CRI creat 1.8 last check now baseline 1.4 Urinary retention now resolved and catheter DC maintained on Urecholine Plan: Intensive therapies Increase Wellbutrin Psych consultation for severe depression is appreciated Check labs adrian creatinine periodically Appreciate Dr Aponte following the patient Overall prognosis dependent on her ability to maintain motivation Urinary retention is managed by Dr Mendoza (1) Cerebrovascular accident (CVA) with left hemiparesis (2) CVA, old, facial weakness (3) Anticoagulant long-term use (4) Hypertension (5) Paroxysmal atrial fibrillation (6) Incontinence of urine (7) Hyperlipidemia (8) Depression (9) Back pain (10) Urinary retention Clinical Quality Measures DVT/VTE Risk/Contraindication: Risk Factor Score Per Nursin RFS Level Per Nursing on Admit: 4+=Very High SANDY WILLIS DO May 13, 2018 11:02
--- NOTE | 2018-05-13 12:06 | Physical Therapy Daily Note ---
PT Daily Note-Current Subjective Pt agreeable to PT session this morning, denies pain Appearance at beginning of session, pt sitting up in w/c in commons area awaiting PT treatment. at end of session, per pt request, supine in bed with HOB elevated, call light, phone and bedside table within reach Transfers Therapy Code Descriptions/Definitions Functional [place] Measure: 0=Not Assessed/NA 4=Minimal Assistance 1=Total Assistance 5=Supervision or Setup 2=Maximal Assistance 6=Modified [place] 3=Moderate Assistance 7=Complete [place] Therapy Quality Codes: 6 Independent with activity with or without an assistive device 5 Patient requires set up or clean up by helper. Patient completes activity by themselves 4 Supervision or touching assist (CGA). Holden provide cues , steadying assist 3 The helper provides less than half the effort to complete the activity 2 The helper provides more than half the effort to complete the activity 1 Dependent. The helper does all the effort to complete an activity 7 Patient refused to complete or attempt activity 9 The patient did not perform the activity before the current illness or injury 88 Not attempted due to Medical conditions or safety concerns Transfers (B, C, W/C) (FIM): 2 Scootin Rollin Supine to/from Sit: 3 Sit to/from Stand: 2 Bed to/from Chair: 2 Weight Bearing Right Lower Extremity: Right Full Weight Bearing Left Lower Extremity: Left Full Weight Bearing Gait Training Does the Patient Walk?: Yes Gait (FIM): 1 Distance: 8' Gait Level of Assist: 1 Gait Persons Needed: 2 Gait Assistive Device: Parallel Bars Wheelchair Training Does the Pt Use a Wheelchair?: Yes Wheelchair (FIM): 1 Wheelchair Distance: 1=up to 49 ft Distance: 25' Wheelchair Level of Assist: 1 Type of Wheelchair: Manual very slow pace, uses RUE and RLE to maneuver w/c, requires min to mod assist to guide w/c Treatments transfer and safety training, Gait training in // bars, w/c mobility training, bed mobility Assessment Current Status: Fair Progress PT Short Term Goals Short Term Goals Time Frame: May 10, 2018 Gait (FIM): 0 Distance (FIM): 0=does not occure Wheelchair (FIM): 1 Wheelchair distance (FIM): 1=up to 49 ft Wheelchair Distance: 100'x2 Wheelchair Level of Assist: 3 PT Skilled Nursing Goals Skilled Nursing Goals PT Twisting Frame Operator Goals Time Frame: May 27, 2018 Transfers (B,C,W/C) (FIM): 3 Sit to Lying (QC): 2 Lying-Sitting on Side/Bed(QC): 2 Sit to Stand (QC): 2 Rollin Roll Left to Right (QC): 2 Chair/[id number] Xfer(QC): 2 Car Transfer (QC): 2 Does the Patient Walk: No and Walking Goal IS indicated Gait (FIM): 1 Gait distance (FIM): 1=up to 49 ft Distance: 10' Walk 10 feet (QC): 3 Gait Level of Assist: 3 Gait Assistive Device: Walker Jose Luis Wheelchair (FIM): 2 Wheelchair distance (FIM): 4=913-97 ft Distance: 50' Wheelchair Level of Assist: 4 Wheel 50 feet with 2 turns (QC: 3 PT Plan Treatment/Plan Treatment Plan: Continue Plan of Care Treatment Plan: Bed Mobility, Concurrent Therapy, Education, Functional Activity Sarah, Functional Strength, Group Therapy, Gait, Safety, Therapeutic Exercise, Transfers Treatment Duration: May 27, 2018 Frequency: At least 5 of 7 days/Wk (IRF) Estimated Hrs Per Day: 1.5 hours per day Patient and/or Family Agrees t: Yes Safety Risks/Education Patient Education: Gait Training, Transfer Techniques, W/C Management, Safety Issues Teaching Recipient: Patient Teaching Methods: Discussion Response to Teaching: Verbalize Understanding, Return Demonstration, Reinforcement Needed Time/GCodes Time In: 930 Time Out: 954 Total Billed Treatment Time: 24 Total Billed Treatment 1 visit, FA x24' JENNIFER SUTHERLAND RESIDENTIAL WORKER May 13, 2018 12:06
[2018-05-13] MEDS: RIVAROXABAN 15 MG TABLET (XARELTO) PO SCH (16:58)
[2018-05-13 18:10] VITALS: BP 119/77
[2018-05-13] MEDS: TAMSULOSIN 0.4 MG (FLOMAX) CAP PO SCH (18:42)
--- NOTE | 2018-05-13 19:05 | NUR ---
bedside report received from TOSHA PATEL, assume care of pt
[2018-05-13 20:10] VITALS: BP 112/78
[2018-05-13] MEDS: ATORVASTATIN 20 MG (LIPITOR) TABLET PO SCH (20:15)
--- NOTE | 2018-05-13 20:15 | NUR ---
refused Senokot 2 tabs & miralax but took Enulose
--- NOTE | 2018-05-13 20:15 | NUR ---
c/o headache pain level 3/10 on numeric scale, v/s 113-18-99%-112/78, Lortab 5 1 tab po given, visiting with family at bedside, no change in neuro level
--- NOTE | 2018-05-13 20:58 | NUR ---
rates pain level 1/10 on numeric scale
--- NOTE | 2018-05-13 21:00 | NUR ---
assessments & interventions completed, see assessments & interventions, scored 10 on NIH STROKE SCALE
--- NOTE | 2018-05-13 21:23 | Cardiology Progress Note ---
Cardiology SOAP Progress Note Subjective: No cardiac complaints. Objective: I&O/Vital Signs 05/13/18 18:10 Temp 97.8 Pulse 69 Resp 20 B/P (MAP) 119/77 (91) Pulse Ox 99 O2 Delivery Room Air 05/13/18 00:00 Intake Total 960 ml Output Total 700 ml Balance 260 ml Weight (Pounds): 165 Weight (Ounces): 3.2 Weight (Calculated Kilograms): 74.351506 Constitutional: No appears stated age; AAO x 3; No apparent distress, No PERRL , No well-developed, No well-nourished, No other Respiratory: No accessory muscle use, No respiratory distress, No chest tender , No chest expansion is symmetric; chest is bilaterally symmetric; No lungs clear to percussion; lungs clear to auscultation; No crackles, No rhonchi, No rales, No stridor, No wheezing, No pleural rub, No other Cardiovascular: regular rate-rhythm; No irregularly irregular, No extra beats, No parasternal heave is noted, No JVD, No edema, No bradycardia, No tachycardia , No point of maximal impulse, No cardiac thrills are palpable; S1 and S2; No gallop/S3, No gallop/S4, No diastolic murmur, No systolic murmur, No friction rub, No click, No other Gastrointestional: No tender, No soft, No round, No distended, No pulsatile mass, No organomegaly, No guarding, No rebound, No tenderness, No hernia, No mass, No audible bowel sounds, No abnormal bowel sounds, No abdominal bruits, No spleenomegaly, No other Extremities: No normal range of motion, No non-tender, No normal inspection, No pedal edema, No calf tenderness, No normal capillary refill, No pelvis stable , No calf tenderness, No inflammation, No pedal edema, No slow capillary refill , No swelling, No other, No abrasion, No clubbing, No cyanosis, No ecchymosis, No laceration, No no lower extremity edema bilateral, No significant edema, No tenderness, No wound Neurologic/Psychiatric: no motor/sensory deficits, alert, normal mood/affect, oriented x 3 Skin: No normal color, No warm/dry, No cyanosis, No cool, No diaphoresis, No damp, No ecchymosis, No jaundice, No mottled, No pallor, No rash, No tattoos/ piercings, No ulcerations, No rash on exposed areas, No ulcerations on exposed areas, No other Results/Procedures: Labs Microbiology 05/07/18 Urine Culture - Final, Complete Escherichia coli A/P: Assessment/Dx: CVA HTN HLP CRI Plan: 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 Jaime. Continue to monitor renal function Hypertension, controlled, continue to monitor blood pressure. Hyperlipidemia, monitor lipids Intermediate metabolizer for Plavix History of syncope, no further syncopal episodes were reported Osteoarthritis, rheumatoid arthritis, history of fibromyalgia, history of depression and elevated LPa Depression- on Wellbutrin Thank you for your consultation. Please call me if you have any questions. Arthur Fields MD, FACP, FACC, FSCAI, FHRS, CCDS Interventional Cardiology Cardiac Electrophysiology Vascular Medicine and Endovascular Interventions Faye FIELDS MD May 13, 2018 21:23
--- NOTE | 2018-05-13 21:25 | NUR ---
back to bed after sitting on commode had 150ml clear straw colored urine
--- NOTE | 2018-05-13 21:38 | NUR ---
bladder scan showed 110ml
[2018-05-14] MEDS: HYDROcodone/APAP 5 MG/325 MG (LORTAB) TAB PO PRN ×3 (03:41→21:22)
--- NOTE | 2018-05-14 03:41 | NUR ---
c/o headache level 3/10 on numeric scale, lortab 5 1 tab po given, bladder scan post void 325 bladder scan showed 37ml
--- NOTE | 2018-05-14 04:20 | NUR ---
resting quietly in bed, pain level 0/10 on flacc scale
--- NOTE | 2018-05-14 05:50 | NUR ---
to commode then up in the chair
[2018-05-14 06:01] VITALS: BP 118/70
[2018-05-14] MEDS: BETHANECHOL 10 MG (URECHOLINE) TAB PO SCH ×2 (06:33→10:13)
--- NOTE | 2018-05-14 07:05 | NUR ---
bedside report given to TOSHA PATEL
[2018-05-14 09:45] VITALS: BP 102/61
[2018-05-14] MEDS: CARVEDILOL 12.5 MG (COREG) TABLET PO SCH ×2 (09:54→20:17)
[2018-05-14] MEDS: buPROPion SR 150 MG (WELLBUTRIN SR) TAB PO SCH (09:55)
[2018-05-14] MEDS: NITROFURANTOIN 100 MG (MACROBID) CAPSULE PO SCH ×2 (09:55→20:17)
[2018-05-14] MEDS: amLODIPine 5 MG (NORVASC) TAB PO SCH (09:55)
[2018-05-14] MEDS: ASPIRIN E.C. 81 MG (ECOTRIN) TAB PO SCH (09:55)
[2018-05-14] MEDS: MAGNESIUM OXIDE (MAG-OX)400 MG TAB PO SCH ×2 (09:55→17:22)
[2018-05-14] MEDS: PENTOXIFYLLINE ER 400 MG (TRENtal) TAB PO SCH (09:56)
[2018-05-14] MEDS: GABAPENTIN 300 MG (NEURONTIN) CAP PO SCH ×2 (09:56→20:17)
[2018-05-14] MEDS: PANTOPRAZOLE 40 MG (PROTONIX) TAB PO SCH (09:56)
[2018-05-14] MEDS: BRIMONIDINE 0.2% (ALPHAGAN) OPHTH SOLN 5 ML BTL OU SCH ×2 (10:03→20:18)
[2018-05-14] MEDS: LATANOPROST 0.005% (XALATAN) OPHTH SOLN 2.5 ML OU SCH (10:04)
[2018-05-14] MEDS: SENNA W/DOCUSATE (SENOKOT S) TABLET PO SCH ×2 (10:08→20:09)
[2018-05-14] MEDS: LACTULOSE SYRUP 10GM/15ML (ENULOSE) 30ML UDC PO SCH ×2 (10:14→19:27)
[2018-05-14] MEDS: POLYETHYLENE GLYCOL 17 GM (MIRALAX) PACK PO SCH ×2 (10:15→19:27)
--- NOTE | 2018-05-14 11:41 | NUR ---
Dr. Mendoza in to see pt. Notified of bladder scanner results. States he will increase the Urecholine, & if PVR per bladder scan is >250cc, straight cath.
--- NOTE | 2018-05-14 11:44 | Progress Note-Urology ---
Progress Note-Urology Progress Notes/Assess & Plan Progress/Assessment & Plan PVR 173. PLAN INCREASE URECHOLINE TO 25 Final Diagnosis RETENTION DANIELE NAIK MD May 14, 2018 11:43
--- NOTE | 2018-05-14 12:04 | Cardiology Progress Note ---
Cardiology SOAP Progress Note Subjective: No cardiac complaints. Objective: I&O/Vital Signs 05/14/18 05/14/18 06:01 09:45 Temp 97.0 97.5 Pulse 62 82 Resp 20 20 B/P (MAP) 118/70 (86) 102/61 (75) Pulse Ox 96 98 O2 Delivery Room Air Room Air 05/14/18 00:00 Intake Total 1100 ml Output Total 1600 ml Balance -500 ml Weight (Pounds): 165 Weight (Ounces): 3.2 Weight (Calculated Kilograms): 74.740098 Constitutional: No appears stated age; AAO x 3; No apparent distress, No PERRL , No well-developed, No well-nourished, No other Respiratory: No accessory muscle use, No respiratory distress, No chest tender , No chest expansion is symmetric; chest is bilaterally symmetric; No lungs clear to percussion; lungs clear to auscultation; No crackles, No rhonchi, No rales, No stridor, No wheezing, No pleural rub, No other Cardiovascular: regular rate-rhythm; No irregularly irregular, No extra beats, No parasternal heave is noted, No JVD, No edema, No bradycardia, No tachycardia , No point of maximal impulse, No cardiac thrills are palpable; S1 and S2; No gallop/S3, No gallop/S4, No diastolic murmur, No systolic murmur, No friction rub, No click, No other Gastrointestional: No tender, No soft, No round, No distended, No pulsatile mass, No organomegaly, No guarding, No rebound, No tenderness, No hernia, No mass, No audible bowel sounds, No abnormal bowel sounds, No abdominal bruits, No spleenomegaly, No other Extremities: No normal range of motion, No non-tender, No normal inspection, No pedal edema, No calf tenderness, No normal capillary refill, No pelvis stable , No calf tenderness, No inflammation, No pedal edema, No slow capillary refill , No swelling, No other, No abrasion, No clubbing, No cyanosis, No ecchymosis, No laceration, No no lower extremity edema bilateral, No significant edema, No tenderness, No wound Neurologic/Psychiatric: no motor/sensory deficits, alert, normal mood/affect, oriented x 3 Skin: No normal color, No warm/dry, No cyanosis, No cool, No diaphoresis, No damp, No ecchymosis, No jaundice, No mottled, No pallor, No rash, No tattoos/ piercings, No ulcerations, No rash on exposed areas, No ulcerations on exposed areas, No other Results/Procedures: Labs Microbiology 05/07/18 Urine Culture - Final, Complete Escherichia coli A/P: Assessment/Dx: CVA, HTN, HLP, CRI, Plan: 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 Jaime. Continue to monitor renal function Hypertension, controlled, continue to monitor blood pressure. Hyperlipidemia, monitor lipids Intermediate metabolizer for Plavix History of syncope, no further syncopal episodes were reported Osteoarthritis, rheumatoid arthritis, history of fibromyalgia, history of depression and elevated LPa Depression- on Wellbutrin Thank you for your consultation. Please call me if you have any questions. Arthur Fields MD, FACP, FACC, FSCAI, FHRS, CCDS Interventional Cardiology Cardiac Electrophysiology Vascular Medicine and Endovascular Interventions Faye FIELDS MD May 14, 2018 12:04 pm
--- NOTE | 2018-05-14 14:05 | PM&R Progress Note ---
Subjective HPI/CC On Admission Date Seen by Provider: May 14, 2018 Time Seen by Provider: 14:15 CC: Devastating CVA with left sided weakness HPI: This is a 73yoWF clinic patient of [facility] who was transferred from 4th floor after sustaining a devastating CVA w/left sided flaccidity. Patient had a h/o CVA with subtle right sided facial numbness in the past and placed on anticoagulation for PAF noted on REVEAL device placed by Dr Aponte but presented past the tPA window with left sided weakness after found in bed by family. She was seen by Dr Aponte and risk stratification was initiated. Carotid CTA was recommended but due to renal insufficiency that test could not be done. Currently patient is very depressed and will increase Wellbutrin dose and consult Behavioral Health to facilitate management of this new disability. Bowels are moving and catheter was DC and incontinence was noted on 4th floor. Subjective/Events-last exam Urinating better without catheter and increased Urecholine to 25mg AC/HS and tolerating well Dr Mendoza managing bladder dysfunction and his expertise is appreciated and will manage until DC and have f/u as outpt Bowels as varied and still working on regularity and taking meds Denies pain at this time except left neck Appears improved overall Review of Systems General: Fatigue Musculoskeletal: neck pain Objective Exam Vital Signs Vital Signs Date Time Temp Pulse Resp B/P (MAP) Pulse Ox O2 Delivery O2 Flow Rate FiO2 05/14/18 09:45 97.5 82 20 102/61 (75) 98 Room Air Capillary Refill : General Appearance: No Apparent Distress, WD/WN, Chronically ill, Obese HEENT: PERRL/EOMI, Normal ENT Inspection, Pharynx Normal, Moist Mucous Membranes, Other Neck: Full Range of Motion, Normal Inspection, Non Tender, Supple Respiratory: Chest Non Tender, Lungs Clear, Normal Breath Sounds, No Accessory Muscle Use, No Respiratory Distress, Decreased Breath Sounds Cardiovascular: Regular Rate, Rhythm, No Edema, No Gallop, No JVD, No Murmur Gastrointestinal: Normal Bowel Sounds, No Organomegaly, No Pulsatile Mass, Non Tender, Soft Back: Normal Inspection, No CVA Tenderness, No Vertebral Tenderness, Decreased Range of Motion Extremity: Normal Capillary Refill, Normal Inspection, Non Tender, No Calf Tenderness, No Pedal Edema, Other Neurologic/Psychiatric: Alert, Oriented x3, Depressed Affect, Motor Weakness, Other Skin: Normal Color, Warm/Dry Lymphatic: No Adenopathy Results/Procedures Lab Patient resulted labs reviewed. Assessment/Plan Assessment and Plan Assess & Plan/Chief Complaint Assessment: Devastating CVA w/left sided flaccidity PAF Anticoagulation chronic use even before CVA Severe depression receiving treatment with counselor Anxiety hx Former smoker HTN New bladder incontinence since CVA CRI creat 1.8 last check now baseline 1.4 Urinary retention now resolved and catheter DC maintained on Urecholine Plan: Intensive therapies Increase Wellbutrin Psych consultation for severe depression is appreciated Check labs adrian creatinine periodically Appreciate Dr Aponte following the patient Overall prognosis dependent on her ability to maintain motivation Urinary retention is managed by Dr Mendoza (1) Cerebrovascular accident (CVA) with left hemiparesis (2) CVA, old, facial weakness (3) Anticoagulant long-term use (4) Hypertension (5) Paroxysmal atrial fibrillation (6) Incontinence of urine (7) Hyperlipidemia (8) Depression (9) Back pain (10) Urinary retention Clinical Quality Measures DVT/VTE Risk/Contraindication: Risk Factor Score Per Nursin RFS Level Per Nursing on Admit: 4+=Very High SANDY WILLIS DO May 14, 2018 14:05
[2018-05-14] MEDS: RIVAROXABAN 15 MG TABLET (XARELTO) PO SCH (16:54)
[2018-05-14] MEDS: BETHANECHOL 25 MG (URECHOLINE) TAB PO SCH ×2 (16:54→20:17)
[2018-05-14 17:17] VITALS: BP 112/78
[2018-05-14] MEDS: TAMSULOSIN 0.4 MG (FLOMAX) CAP PO SCH (17:21)
[2018-05-14] MEDS: DICLOFENAC 1% GEL 100 GM (VOLTAREN) TUBE TOP PRN ×2 (17:21→20:18)
[2018-05-14] MEDS: ATORVASTATIN 20 MG (LIPITOR) TABLET PO SCH (20:17)
[2018-05-15] MEDS: ACETAMINOPHEN 500 MG TAB (TYLENOL) PO PRN (02:01)
[2018-05-15 05:00] LABS: BASOPHILS % (AUTO) 0 % (0-10); EOSINOPHILS # (AUTO) 0.1 10^3/uL (0.0-0.3); EOSINOPHILS % (AUTO) 2 % (0-10); HEMATOCRIT 36 % (35-52); HEMOGLOBIN 10.6 G/DL (11.5-16.0); LYMPHOCYTES # (AUTO) 1.5 X 10^3 (1.0-4.0); LYMPHOCYTES % (AUTO) 25 % (12-44); MEAN CORPUSCULAR HEMOGLOBIN 26 PG (25-34); MEAN CORPUSCULAR HGB CONC 30 G/DL (32-36); MEAN CORPUSCULAR VOLUME 86 FL (80-99); MONOCYTES # (AUTO) 0.5 X 10^3 (0.0-1.0); MONOCYTES % (AUTO) 8 % (0-12); NEUTROPHILS # (AUTO) 3.8 X 10^3 (1.8-7.8); NEUTROPHILS % (AUTO) 64 % (42-75); PLATELET COUNT 183 10^3/uL (130-400); RED CELL DISTRIBUTION WIDTH 15.1 % (10.0-14.5)
[2018-05-15 05:09] VITALS: BP 106/70
[2018-05-15 05:16] LABS: ALBUMIN 3.5 GM/DL (3.2-4.5); BILIRUBIN,TOTAL 0.4 MG/DL (0.1-1.0); CALCIUM 10.1 MG/DL (8.5-10.1); CREATININE SERUM 1.61 MG/DL (0.60-1.30); POTASSIUM 4.6 MMOL/L (3.6-5.0); TOTAL PROTEIN 6.1 GM/DL (6.4-8.2)
[2018-05-15] MEDS: BETHANECHOL 25 MG (URECHOLINE) TAB PO SCH ×4 (06:01→19:23)
[2018-05-15 07:59] VITALS: BP 120/78
[2018-05-15] MEDS: GABAPENTIN 300 MG (NEURONTIN) CAP PO SCH ×2 (08:05→19:24)
[2018-05-15] MEDS: PANTOPRAZOLE 40 MG (PROTONIX) TAB PO SCH (08:06)
[2018-05-15] MEDS: NITROFURANTOIN 100 MG (MACROBID) CAPSULE PO SCH ×2 (08:06→19:24)
[2018-05-15] MEDS: buPROPion SR 150 MG (WELLBUTRIN SR) TAB PO SCH (08:06)
[2018-05-15] MEDS: PENTOXIFYLLINE ER 400 MG (TRENtal) TAB PO SCH (08:06)
[2018-05-15] MEDS: CARVEDILOL 12.5 MG (COREG) TABLET PO SCH ×2 (08:06→19:23)
[2018-05-15] MEDS: amLODIPine 5 MG (NORVASC) TAB PO SCH (08:06)
[2018-05-15] MEDS: ASPIRIN E.C. 81 MG (ECOTRIN) TAB PO SCH (08:06)
[2018-05-15] MEDS: MAGNESIUM OXIDE (MAG-OX)400 MG TAB PO SCH ×2 (08:06→17:44)
[2018-05-15] MEDS: LACTULOSE SYRUP 10GM/15ML (ENULOSE) 30ML UDC PO SCH ×2 (08:07→19:26)
[2018-05-15] MEDS: SENNA W/DOCUSATE (SENOKOT S) TABLET PO SCH ×2 (08:07→19:24)
[2018-05-15] MEDS: POLYETHYLENE GLYCOL 17 GM (MIRALAX) PACK PO SCH ×2 (08:07→19:26)
[2018-05-15] MEDS: LATANOPROST 0.005% (XALATAN) OPHTH SOLN 2.5 ML OU SCH (08:14)
[2018-05-15] MEDS: BRIMONIDINE 0.2% (ALPHAGAN) OPHTH SOLN 5 ML BTL OU SCH ×2 (08:15→19:26)
--- NOTE | 2018-05-15 08:17 | Cardiology Progress Note ---
Subjective Date Seen by Provider: May 15, 2018 Time Seen by Provider: 08:16 Subjective/Events-last exam Patient is sitting up in chair, no new complaints. Denies any chest pain or dyspnea. Review of Systems General: No Chills, No Night Sweats, No Fatigue, No Malaise, No Appetite, No Other HEENT: No Head Aches, No Visual Changes, No Eye Pain, No Ear Pain, No Dysphasia , No Sinus Congestion, No Post Nasal Drip, No Sore Throat, No Other Pulmonary: No Dyspnea, No Cough, No Pleuritic Chest Pain, No Other Cardiovascular: No: Chest Pain, Palpitations, Orthopnea, Paroxysmal Noc. Dyspnea, Edema, Lt Headedness, Other Gastrointestinal: No: Nausea, Vomiting, Abdominal Pain, Diarrhea, Constipation , Melena, Hematochezia, Other Genitourinary: No Frequency, No Incontinence Musculoskeletal: No: neck pain, back pain Neurological: Weakness (left sided paralysis) Objective-Cardiology Exam Last Set of Vital Signs Vital Signs 05/15/18 05/15/18 05:09 07:59 Temp 97.0 Pulse 86 Resp 18 B/P (MAP) 120/78 (92) Pulse Ox 100 O2 Delivery Room Air Capillary Refill : I&O Intake and Output 05/15/18 00:00 Intake Total 1550 ml Output Total 2025 ml Balance -475 ml Intake Oral 1550 ml Output Urine Total 2025 ml Bladder Scan Volume Amount 37 ml 174 ml # Bowel Movements 1 General: Alert, Oriented X3, Cooperative HEENT: Atraumatic, PERRLA Neck: Supple, No JVD, No Thyromegaly Lungs: Clear to Auscultation, Normal Air Movement Heart: Regular Rate, Normal S1, Normal S2, No Murmurs Abdomen: Normal Bowel Sounds, Soft, No Tenderness, No Hepatosplenomegaly, No Masses Extremities: No Clubbing, No Cyanosis, No Edema, Normal Pulses, No Tenderness/ Swelling Skin: No Rashes, No Breakdown, No Significant Lesion Neuro: Normal Speech, Sensation Intact, Cranial Nerves 3-12 NL, Other (left sided weakness) Psych/Mental Status: Mental Status NL, Other (flat affect) Results Lab Laboratory Tests 05/15/18 04:20 A/P-Cardiology Admission Diagnosis CVA HTN HLP CRI Assessment/Plan 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 Jaime. Continue to monitor renal function Hypertension, controlled, continue to monitor blood pressure. Hyperlipidemia, monitor lipids Intermediate metabolizer for Plavix History of syncope, no further syncopal episodes were reported Osteoarthritis, rheumatoid arthritis, history of fibromyalgia, history of depression and elevated LPa Depression- on Wellbutrin Clinical Quality Measures DVT/VTE Risk/Contraindication: Risk Factor Score Per Nursin RFS Level Per Nursing on Admit: 4+=Very High DAPHNIE FORREST May 15, 2018 08:17
--- NOTE | 2018-05-15 08:29 | PM&R Progress Note ---
Subjective HPI/CC On Admission Date Seen by Provider: May 15, 2018 Time Seen by Provider: 08:30 CC: Devastating CVA with left sided weakness HPI: This is a 73yoWF clinic patient of [facility] who was transferred from 4th floor after sustaining a devastating CVA w/left sided flaccidity. Patient had a h/o CVA with subtle right sided facial numbness in the past and placed on anticoagulation for PAF noted on REVEAL device placed by Dr Aponte but presented past the tPA window with left sided weakness after found in bed by family. She was seen by Dr Aponte and risk stratification was initiated. Carotid CTA was recommended but due to renal insufficiency that test could not be done. Currently patient is very depressed and will increase Wellbutrin dose and consult Behavioral Health to facilitate management of this new disability. Bowels are moving and catheter was DC and incontinence was noted on 4th floor. Subjective/Events-last exam Diclofenac gel helping left neck pain Had a sweating episode last night that required change of bed clothes but no fever Labs are okay Creatnine 1.6 Fibromyalgia precludes a fast recovery Weakness on the left side and left sided neglect still an issue Bowels are functioning normally Urination is good Denies any pain otherwise Review of Systems General: Fatigue Gastrointestinal: Constipation Genitourinary: Retention Musculoskeletal: neck pain Neurological: Weakness, Incoordination Objective Exam Vital Signs Vital Signs Date Time Temp Pulse Resp B/P (MAP) Pulse Ox O2 Delivery O2 Flow Rate FiO2 05/15/18 19:46 Room Air 05/15/18 16:35 116/73 (87) 05/15/18 16:13 97.1 80 18 99 Capillary Refill : General Appearance: No Apparent Distress, WD/WN, Chronically ill, Obese HEENT: PERRL/EOMI, Normal ENT Inspection, Pharynx Normal, Moist Mucous Membranes, Other Neck: Full Range of Motion, Normal Inspection, Non Tender, Supple Respiratory: Chest Non Tender, Lungs Clear, Normal Breath Sounds, No Accessory Muscle Use, No Respiratory Distress Cardiovascular: Regular Rate, Rhythm, No Edema, No Gallop, No JVD, No Murmur Gastrointestinal: Normal Bowel Sounds, No Organomegaly, No Pulsatile Mass, Non Tender, Soft Back: Normal Inspection, No CVA Tenderness, No Vertebral Tenderness Extremity: Normal Capillary Refill, Normal Inspection, Non Tender, No Calf Tenderness, No Pedal Edema, Other Neurologic/Psychiatric: Alert, Oriented x3, Depressed Affect, Motor Weakness ( left side), Other Skin: Normal Color, Warm/Dry Lymphatic: No Adenopathy Results/Procedures Lab Laboratory Tests 05/15/18 04:20 Patient resulted labs reviewed. Assessment/Plan Assessment and Plan Assess & Plan/Chief Complaint Assessment: Devastating CVA w/left sided flaccidity PAF Anticoagulation chronic use even before CVA Severe depression receiving treatment with counselor Anxiety hx Former smoker HTN New bladder incontinence since CVA CRI creat 1.8 last check now baseline 1.6 Urinary retention now resolved and catheter DC maintained on Urecholine Neck pain Plan: Intensive therapies Increase Wellbutrin Psych consultation for severe depression is appreciated Check labs adrian creatinine periodically Appreciate Dr Aponte following the patient Overall prognosis dependent on her ability to maintain motivation Urinary retention is managed by Dr Mendoza Diclofenac gel (1) Cerebrovascular accident (CVA) with left hemiparesis (2) CVA, old, facial weakness (3) Anticoagulant long-term use (4) Hypertension (5) Paroxysmal atrial fibrillation (6) Incontinence of urine (7) Hyperlipidemia (8) Depression (9) Back pain (10) Urinary retention Clinical Quality Measures DVT/VTE Risk/Contraindication: Risk Factor Score Per Nursin RFS Level Per Nursing on Admit: 4+=Very High SANDY WILLIS DO May 15, 2018 08:29
--- NOTE | 2018-05-15 08:30 | Cardiology Progress Note ---
Subjective Date Seen by Provider: May 15, 2018 Time Seen by Provider: 08:26 Subjective/Events-last exam Patient is in a chair, feeling better, no new complaint Review of Systems General: No Chills, No Night Sweats, No Fatigue, No Malaise, No Appetite, No Other HEENT: No Head Aches, No Visual Changes, No Eye Pain, No Ear Pain, No Dysphasia , No Sinus Congestion, No Post Nasal Drip, No Sore Throat, No Other Pulmonary: No Dyspnea, No Cough, No Pleuritic Chest Pain, No Other Cardiovascular: No: Chest Pain, Palpitations, Orthopnea, Paroxysmal Noc. Dyspnea, Edema, Lt Headedness, Other Objective-Cardiology Exam Last Set of Vital Signs Vital Signs 05/15/18 05/15/18 05:09 07:59 Temp 97.0 Pulse 86 Resp 18 B/P (MAP) 120/78 (92) Pulse Ox 100 O2 Delivery Room Air Capillary Refill : I&O Intake and Output 05/15/18 00:00 Intake Total 1550 ml Output Total 2025 ml Balance -475 ml Intake Oral 1550 ml Output Urine Total 2025 ml Bladder Scan Volume Amount 37 ml 174 ml # Bowel Movements 1 General: Alert, Oriented X3, Cooperative HEENT: Atraumatic, PERRLA Neck: Supple, No JVD, No Thyromegaly Lungs: Clear to Auscultation, Normal Air Movement Heart: Regular Rate, Normal S1, Normal S2, No Murmurs Abdomen: Normal Bowel Sounds, Soft, No Tenderness, No Hepatosplenomegaly, No Masses Extremities: No Clubbing, No Cyanosis, No Edema, Normal Pulses, No Tenderness/ Swelling Skin: No Rashes, No Breakdown, No Significant Lesion Neuro: Normal Speech, Sensation Intact, Cranial Nerves 3-12 NL, Other (left sided weakness) Psych/Mental Status: Mental Status NL, Other (flat affect) Results Lab Laboratory Tests 05/15/18 04:20 A/P-Cardiology Admission Diagnosis CVA HTN HLP CRI Assessment/Plan 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 Jaime. Continue to monitor renal function Hypertension, controlled, continue to monitor blood pressure. Hyperlipidemia, monitor lipids Intermediate metabolizer for Plavix History of syncope, no further syncopal episodes were reported Osteoarthritis, rheumatoid arthritis, history of fibromyalgia, history of depression and elevated LPa Depression- on Wellbutrin Clinical Quality Measures DVT/VTE Risk/Contraindication: Risk Factor Score Per Nursin RFS Level Per Nursing on Admit: 4+=Very High DOMI MARTINEZ MD May 15, 2018 08:30
--- NOTE | 2018-05-15 08:58 | Progress Note-Urology ---
Progress Note-Urology Progress Notes/Assess & Plan Progress/Assessment & Plan PVR UNDER 100 Final Diagnosis RETENTION DANIELE NAIK MD May 15, 2018 08:58
--- NOTE | 2018-05-15 09:15 | Speech Therapy Daily Note ---
Speech Daily Progress Note Subjective Date Seen by Provider: May 15, 2018 Time Seen by Provider: 00:30 Patient was resting in her recliner waiting to get dressed when I arrived. Objective Patient completed problem solving tasks with 80% given min to mod verbal cues. Assessment Assessment Current Status: Good Progress Treatment Plan Continue Plan of Care Communication Comprehension: 4 Expression: 3 Social Cognition Social Interaction: 3 Problem Solvin Memory: 3 Speech Short Term Goals Short Term Goals Short Term Goals 1) Patient will complete memory tasks for improving safety and independence with 90% or greater. 2) Patient will complete problem solving tasks for improving safety and independence with 90% or greater. Speech Acid Mixer Goals Acid Mixer Goals Patient will improve safety and independence for achieving highest potential level of function. Speech-Plan Patient/Family Goals Patient/Family Goals: Patient plans to return home with family assistance post rehab. Treatment Plan Speech Therapy Treatment Plan: Continue Plan of Care Patient states she is worried she hasn't had any movement in her arm or leg over the weekend. Treatment Duration: May 18, 2018 Frequency: 5 times per week Estimated Hrs Per Day: .5 hour per day Rehab Potential: Fair Barriers to Learning: Patient has total left side neglect. Pt/Family Agrees to Plan: Yes Safety Risks/Education Teaching Recipient: Patient Teaching Methods: Discussion Response to Teaching: Verbalize Understanding Education Topics Provided: Safety within her room. Time Speech Therapy Time In: 08:30 Speech Therapy Time Out: 09:00 Total Billed Time: 30 Billed Treatment Time [address] May 15, 2018 09:15
--- NOTE | 2018-05-15 10:27 | Physical Therapy Daily Note ---
PT Daily Note-Current Subjective Pt. agrees to Rx. Pt. states several times that she feels like she is being pulled over and will fall over. This HAND BRUSH FILLER and HOBSON assure her adrian through use of mirror that she is leaning heavily to left and pushing with RUE. pt. states that stretching and alignment correction feels good Pain Comment: pt. does not rate pain but states she has a head ache and RLBP. Mental Status Patient Orientation: Normal For Age Transfers Therapy Code Descriptions/Definitions Functional [place] Measure: 0=Not Assessed/NA 4=Minimal Assistance 1=Total Assistance 5=Supervision or Setup 2=Maximal Assistance 6=Modified [place] 3=Moderate Assistance 7=Complete [place] Therapy Quality Codes: 6 Independent with activity with or without an assistive device 5 Patient requires set up or clean up by helper. Patient completes activity by themselves 4 Supervision or touching assist (CGA). [place] provide cues , steadying assist 3 The helper provides less than half the effort to complete the activity 2 The helper provides more than half the effort to complete the activity 1 Dependent. The helper does all the effort to complete an activity 7 Patient refused to complete or attempt activity 9 The patient did not perform the activity before the current illness or injury 88 Not attempted due to Medical conditions or safety concerns Transfers (B, C, W/C) (FIM): 2 Scootin Rollin Supine to/from Sit: 3 Sit to/from Stand: 2 Bed to/from Chair: 2 Weight Bearing Right Lower Extremity: Right Full Weight Bearing Left Lower Extremity: Left Full Weight Bearing Gait Training Does the Patient Walk?: No and Walking Goal IS indicated Wheelchair Training Does the Pt Use a Wheelchair?: Yes Wheelchair (FIM): 2 Wheelchair Distance: 6=557-33 ft (40-50ft x 3) Wheelchair Level of Assist: 2 Type of Wheelchair: Manual needs assist to brake, needs assist and instruction for steering wc/ most success using UE and LE to steer and propel Exercises Supine Ex: Bridging, Ankle pumps (HC sretches left 3 x 30s), Quad Set, Rolling , Glut sets, Heel Slides, Scooting, D1 F/E UE (LLE), Straight leg raise ( passisve on left) Supine Reps: 12 NuStep Minutes: 10 NuStep Workload: 1 Neuromuscular sitting balance coordinated with OT for alignment, pec stretching as well, weight shift left and right as well as for and back with emphasis on mirror image for alignment. MHP to neck and mid upper back for 10-15m followed by stretching and alignment. perching from sitting on high low table to attempt to initiate weight bearing on LLE. Pt. still needs max assist for stance, flexes hard at trunk and pushes with RUE away from targeted destination Assessment Current Status: Fair Progress no LLE active movement ellicited this date, no mass extension, no adduction in hooklying etc PT Short Term Goals Short Term Goals Time Frame: May 10, 2018 Gait (FIM): 0 Distance (FIM): 0=does not occure Wheelchair (FIM): 1 Wheelchair distance (FIM): 1=up to 49 ft Wheelchair Distance: 25' Wheelchair Level of Assist: 3 PT [place] Miner Goals Care Home Goals PT Care Home Goals Time Frame: May 27, 2018 Transfers (B,C,W/C) (FIM): 3 Sit to Lying (QC): 2 Lying-Sitting on Side/Bed(QC): 2 Sit to Stand (QC): 2 Rollin Roll Left to Right (QC): 2 Chair/Qwy-fu-Hronq Xfer(QC): 2 Car Transfer (QC): 2 Does the Patient Walk: No and Walking Goal IS indicated Gait (FIM): 1 Gait distance (FIM): 1=up to 49 ft Distance: 10' Walk 10 feet (QC): 3 Gait Level of Assist: 3 Gait Assistive Device: Walker Jose Luis Wheelchair (FIM): 2 Wheelchair distance (FIM): 8=903-81 ft Distance: 50' Wheelchair Level of Assist: 4 Wheel 50 feet with 2 turns (QC: 3 PT Plan Treatment/Plan Treatment Plan: Continue Plan of Care Treatment Plan: Bed Mobility, Concurrent Therapy, Education, Functional Activity Sarah, Functional Strength, Group Therapy, Gait, Safety, Therapeutic Exercise, Transfers Treatment Duration: May 27, 2018 Frequency: At least 5 of 7 days/Wk (IRF) Estimated Hrs Per Day: 1.5 hours per day Patient and/or Family Agrees t: Yes Safety Risks/Education Patient Education: Transfer Techniques, Correct Positioning, Disease Process, Safety Issues Teaching Recipient: Patient Teaching Methods: Demonstration, Discussion Response to Teaching: Unable to Return Demonstration, Reinforcement Needed Time/GCodes Time In: 900 Time Out: 1015 Total Billed Treatment Time: 75 Total Billed Treatment 1,w/c10m,EX30m,FA35m, G Codes Necessary: JALEN Argueta HAND BRUSH FILLER May 15, 2018 10:27
--- NOTE | 2018-05-15 10:51 | Occupational Ther Daily Note ---
OT Current Status-Daily Note Subjective Pt alert, sitting in recliner. Pt agrees to therapy. C/o pain on R lower back area and headache, reported to nrsg and placed MHP to decrease pain. Mental Status/Objective Patient Orientation: Person, Place, Time, Situation Therapy Code Descriptions/Definitions Functional [place] Measure: 0=Not Assessed/NA 4=Minimal Assistance 1=Total Assistance 5=Supervision or Setup 2=Maximal Assistance 6=Modified [place] 3=Moderate Assistance 7=Complete [place] ADL-Treatment PT/OT co-treat for skilled care due to pt's decrease in activity tolerance and mobility. PT worked on transfers, dynamic sitting, standing and LE strengthening. OT worked on toileting, dynamic sitting, UE and shldr girdle PROM and UE wt bearing. Pt required max A and cues to complete upper body dressing and dependent for lower body dressing. Pt required physical/verbal cues with transfers and standing. Pt pushes with R UE with transfers and sitting. Pt required verbal/physical/visual cues when sitting on edge of mat table to maintain midline. Pt worked on therapy bike to for AAROM of L UE. Assist with L UE wt bearing for proper position to decrease stress on joints. Pt able to hold onto handle with light grasp, assist with bracing. Pt is able to lean forward and is beginning pull self back to sitting after placing R elbow on mat. Pt will place R hand on surface and push self toward L side. R UE PROM completed. Increased tone L LE. Pt dependent with toileting. After therapy, pt lying in bed with call light/phone in reach. All needs met in room. Therapy Code Descriptions/Definitions Functional [place] Measure: 0=Not Assessed/NA 4=Minimal Assistance 1=Total Assistance 5=Supervision or Setup 2=Maximal Assistance 6=Modified [place] 3=Moderate Assistance 7=Complete [place] Therapy Quality Codes: 6 Independent with activity with or without an assistive device 5 Patient requires set up or clean up by helper. Patient completes activity by themselves 4 Supervision or touching assist (CGA). [place] provide cues , steadying assist 3 The helper provides less than half the effort to complete the activity 2 The helper provides more than half the effort to complete the activity 1 Dependent. The helper does all the effort to complete an activity 7 Patient refused to complete or attempt activity 9 The patient did not perform the activity before the current illness or injury 88 Not attempted due to Medical conditions or safety concerns Upper Body (FIM): 2 Upper Body Dressing (QC): 2 Lower Body Dressing (FIM): 1 Lower Body Dressing (QC): 1 On/Off Footwear (QC): 2 Toileting (FIM): 1 Toileting Hygiene (QC): 1 Toilet/Commode Transfer (FIM): 2 Toilet Transfer (QC): 2 OT Short Term Goals Short Term Goals Time Frame: May 10, 2018 Grooming(FIM): 4 Bathing(FIM): 2 Upper Body Dressing(FIM): 2 Lower Body Dressing(FIM): 2 Toileting(FIM): 2 Toilet/Commode Transfer(FIM): 2 Additional Short Term Goals: 1-Demonstrate ADL Tasks, 2-Verbalize Understanding , 3-ImproveStrength/Sarah 1=Demonstrate adherence to instructed precautions during ADL tasks. 2=Patient will verbalize/demonstrate understanding of assistive devices/ modifications for ADL. 3=Patient will improve strength/tolerance for activity to enable patient to perform ADL's. OT Half-Way Goals Golf Course Assistant Goals Time Frame: May 31, 2018 Eating (FIM): 5 Eating (QC): 5 Groomin Oral Hygiene (QC): 5 Bathing(FIM): 3 Shower/Bathe Self (QC): 3 Upper Body Dressing(FIM): 4 Upper Body Dressing (QC): 4 Lower Body Dressing(FIM): 3 Lower Body Dressing (QC): 3 On/Off Footwear (QC): 3 Toileting(FIM): 3 Toileting Hygiene (QC): 3 Toilet/Commode Transfer(FIM): 4 Shower Transfer(FIM): 3 Additional Goals: 1-Demonstrate ADL Tasks, 2-Verbalize Understanding, 3- ImproveStrength/Sarah 1=Demonstrate adherence to instructed precautions during ADL tasks. 2=Patient will verbalize/demonstrate understanding of assistive devices/ modifications for ADL. 3=Patient will improve strength/tolerance for activity to enable patient to perform ADL's. OT Education/Plan Problem List/Assessment Assessment: Decreased Activ Tolerance, Decreased Safety Aware, Decreased UE Strength, Dependent Transfers, Edema, Impaired Bed Mobility, Impaired Coordination, Impaired Funct Balance, Impaired I ADL's, Impaired Self-Care Skills, Restricted Funct UE ROM, Visual-Perceptual Deficit Pt admitted to ARU following CVA with left side deficits. Pt currently dependent for transfers and dressing. Pt demonstrates left neglect. Pt to benefit from skilled OT intervention for ADL training, transfers, strengthening , adaptive equipment training as needed, and safety education to increase level of function and allow safe discharge plan. Discharge Recommendations Plan/Recommendations: Continue POC Treatment Plan/Plan of Care Patient would benefit from OT for education, treatment and training to promote independence in ADL's, mobility, safety and/or upper extremity function for ADL' s. Plan of Care: ADL Retraining, Functional Mobility, Group Exercise/Act as Ind, UE Funct Exercise/Act, UE Neuromus Re-Ed/Coord, Visual/Perceptual Retrain Treatment Duration: May 31, 2018 Frequency: At least 5 of 7 days/Wk (IRF) Estimated Hrs Per Day: 1.5 hours per day Agreement: Yes Rehab Potential: Fair Time/GCodes Start Time: 09:00 Stop Time: 10:15 Total Time Billed (hr/min): 75 Billed Treatment Time 1 visit-ADL 5 (75 min) Co-treat with PT for 75 min SAMMI BELL May 15, 2018 10:51
--- NOTE | 2018-05-15 11:44 | NUR ---
Per conversation from last week with patient and daughter, FIELD CHECKER sent initial referral information to [facility] for review for SNF placement. Due to lack as improvement, FIELD CHECKER anticipates insurance will deny continued stay following review date of .
--- NOTE | 2018-05-15 14:34 | NUR ---
Post void bladder scan- 139mls.
[2018-05-15 16:35] VITALS: BP 116/73
[2018-05-15] MEDS: RIVAROXABAN 15 MG TABLET (XARELTO) PO SCH (17:44)
[2018-05-15] MEDS: TAMSULOSIN 0.4 MG (FLOMAX) CAP PO SCH (17:44)
[2018-05-15] MEDS: ATORVASTATIN 20 MG (LIPITOR) TABLET PO SCH (19:24)
[2018-05-15] MEDS: DICLOFENAC 1% GEL 100 GM (VOLTAREN) TUBE TOP PRN (19:24)
[2018-05-15] MEDS: HYDROcodone/APAP 5 MG/325 MG (LORTAB) TAB PO PRN (19:24)
[2018-05-16 05:03] VITALS: BP 115/68
[2018-05-16] MEDS: BETHANECHOL 25 MG (URECHOLINE) TAB PO SCH ×4 (05:19→20:08)
--- NOTE | 2018-05-16 07:29 | Progress Note-Urology ---
Progress Note-Urology Progress Notes/Assess & Plan Progress/Assessment & Plan VOIDING WELL WITH PVR UNDER 100CC Final Diagnosis RETENTION DANIELE NAIK MD May 16, 2018 07:29
--- NOTE | 2018-05-16 08:00 | Cardiology Progress Note ---
Subjective Date Seen by Provider: May 16, 2018 Time Seen by Provider: 07:58 Subjective/Events-last exam Patient was seen this morning, no new complaint, no chest pain Review of Systems General: No Chills, No Night Sweats, No Fatigue, No Malaise, No Appetite, No Other HEENT: No Head Aches, No Visual Changes, No Eye Pain, No Ear Pain, No Dysphasia , No Sinus Congestion, No Post Nasal Drip, No Sore Throat, No Other Pulmonary: No Dyspnea, No Cough, No Pleuritic Chest Pain, No Other Cardiovascular: No: Chest Pain, Palpitations, Orthopnea, Paroxysmal Noc. Dyspnea, Edema, Lt Headedness, Other Objective-Cardiology Exam Last Set of Vital Signs Vital Signs 05/16/18 05:03 Temp 98.0 Pulse 60 Resp 18 B/P (MAP) 115/68 (84) Pulse Ox 99 O2 Delivery Room Air Capillary Refill : I&O Intake and Output 05/16/18 00:00 Intake Total 1134 ml Output Total 1700 ml Balance -566 ml Intake Oral 1134 ml Output Urine Total 1700 ml Bladder Scan Volume Amount 139 ml 28 ml # Voids 2 # Bowel Movements 2 General: Alert, Oriented X3, Cooperative HEENT: Atraumatic, PERRLA Neck: Supple, No JVD, No Thyromegaly Lungs: Clear to Auscultation, Normal Air Movement Heart: Regular Rate, Normal S1, Normal S2, No Murmurs Abdomen: Normal Bowel Sounds, Soft, No Tenderness, No Hepatosplenomegaly, No Masses Extremities: No Clubbing, No Cyanosis, No Edema, Normal Pulses, No Tenderness/ Swelling Skin: No Rashes, No Breakdown, No Significant Lesion Neuro: Normal Speech, Sensation Intact, Cranial Nerves 3-12 NL, Other (left sided weakness) Psych/Mental Status: Mental Status NL, Other (flat affect) A/P-Cardiology Admission Diagnosis CVA HTN HLP CRI Assessment/Plan 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 Jaime. Continue to monitor renal function Hypertension, controlled, continue to monitor blood pressure. Hyperlipidemia, monitor lipids Intermediate metabolizer for Plavix History of syncope, no further syncopal episodes were reported Osteoarthritis, rheumatoid arthritis, history of fibromyalgia, history of depression and elevated LPa Depression- on Wellbutrin Clinical Quality Measures DVT/VTE Risk/Contraindication: Risk Factor Score Per Nursin RFS Level Per Nursing on Admit: 4+=Very High DOMI MARTINEZ MD May 16, 2018 08:00
--- NOTE | 2018-05-16 08:23 | PM&R Progress Note ---
Subjective HPI/CC On Admission Date Seen by Provider: May 16, 2018 Time Seen by Provider: 08:30 CC: Devastating CVA with left sided weakness HPI: This is a 73yoWF clinic patient of [facility] who was transferred from 4th floor after sustaining a devastating CVA w/left sided flaccidity. Patient had a h/o CVA with subtle right sided facial numbness in the past and placed on anticoagulation for PAF noted on REVEAL device placed by Dr Aponte but presented past the tPA window with left sided weakness after found in bed by family. She was seen by Dr Aponte and risk stratification was initiated. Carotid CTA was recommended but due to renal insufficiency that test could not be done. Currently patient is very depressed and will increase Wellbutrin dose and consult Behavioral Health to facilitate management of this new disability. Bowels are moving and catheter was DC and incontinence was noted on 4th floor. Subjective/Events-last exam Dr. Mendoza saw her. Post-void residual is minimal. Bowel movements are varied either extreme one way or another. Affect is much better and she is interacting much more. Left neck is helped by Diclofenac gel and PT stretching. NHP discussed Review of Systems General: Fatigue Gastrointestinal: Constipation Musculoskeletal: neck pain Neurological: Weakness, Incoordination Objective Exam Vital Signs Vital Signs Date Time Temp Pulse Resp B/P (MAP) Pulse Ox O2 Delivery O2 Flow Rate FiO2 05/16/18 20:06 100 105/78 (87) 05/16/18 17:13 Room Air 05/16/18 15:57 97.5 16 99 Capillary Refill : General Appearance: No Apparent Distress, WD/WN, Chronically ill, Obese HEENT: PERRL/EOMI, Normal ENT Inspection, Pharynx Normal, Moist Mucous Membranes, Other Neck: Full Range of Motion, Normal Inspection, Non Tender, Supple Respiratory: Chest Non Tender, Lungs Clear, Normal Breath Sounds, No Accessory Muscle Use, No Respiratory Distress Cardiovascular: Regular Rate, Rhythm, No Edema, No Gallop, No JVD, No Murmur Gastrointestinal: Normal Bowel Sounds, No Organomegaly, No Pulsatile Mass, Non Tender, Soft Back: Normal Inspection, No CVA Tenderness, No Vertebral Tenderness Extremity: Normal Capillary Refill, Normal Inspection, Non Tender, No Calf Tenderness, No Pedal Edema, Other Neurologic/Psychiatric: Alert, Oriented x3, Depressed Affect (improved although still flat), Motor Weakness (left side), Other Skin: Normal Color, Warm/Dry Lymphatic: No Adenopathy Results/Procedures Lab Patient resulted labs reviewed. Assessment/Plan Assessment and Plan Assess & Plan/Chief Complaint Assessment: Devastating CVA w/left sided flaccidity PAF Anticoagulation chronic use even before CVA Severe depression receiving treatment with counselor Anxiety hx Former smoker HTN New bladder incontinence since CVA CRI creat 1.8 last check now baseline 1.6 Urinary retention now resolved and catheter DC maintained on Urecholine Neck pain Plan: Intensive therapies Increase Wellbutrin Psych consultation for severe depression was appreciated Check labs adrian creatinine periodically Appreciate Dr Aponte following the patient Overall prognosis dependent on her ability to maintain motivation Urinary retention is managed by Dr Mendoza Diclofenac gel (1) Cerebrovascular accident (CVA) with left hemiparesis (2) CVA, old, facial weakness (3) Anticoagulant long-term use (4) Hypertension (5) Paroxysmal atrial fibrillation (6) Incontinence of urine (7) Hyperlipidemia (8) Depression (9) Back pain (10) Urinary retention Clinical Quality Measures DVT/VTE Risk/Contraindication: Risk Factor Score Per Nursin RFS Level Per Nursing on Admit: 4+=Very High SANDY WILLIS DO May 16, 2018 08:23
[2018-05-16 09:15] VITALS: BP 107/74
--- NOTE | 2018-05-16 09:16 | Physical Therapy Daily Note ---
PT Daily Note-Current Subjective Patient agrees to PT, no complaints of pain, will be co-treating with OT due to poor patient endurance and activity tolerance, poor sitting and standing balance , poor strength and mobility. Appearance Patient in recliner post tx with OT to finish up grooming. Mental Status Patient Orientation: Person, Place, Situation Transfers Therapy Code Descriptions/Definitions Functional [place] Measure: 0=Not Assessed/NA 4=Minimal Assistance 1=Total Assistance 5=Supervision or Setup 2=Maximal Assistance 6=Modified [place] 3=Moderate Assistance 7=Complete [place] Therapy Quality Codes: 6 Independent with activity with or without an assistive device 5 Patient requires set up or clean up by helper. Patient completes activity by themselves 4 Supervision or touching assist (CGA). [place] provide cues , steadying assist 3 The helper provides less than half the effort to complete the activity 2 The helper provides more than half the effort to complete the activity 1 Dependent. The helper does all the effort to complete an activity 7 Patient refused to complete or attempt activity 9 The patient did not perform the activity before the current illness or injury 88 Not attempted due to Medical conditions or safety concerns Transfers (B, C, W/C) (FIM): 2 Sit to/from Stand: 2 Bed to/from Chair: 2 Patient needs cues for safety and positioning with every transfer. Weight Bearing Right Lower Extremity: Right Full Weight Bearing Left Lower Extremity: Left Full Weight Bearing Treatments Patient transferred to shower chair for shower with max assist, patient showered , started having a BM during shower, when done transferred to a beside commode. When done patient attempted to transfer to the wheelchair but she started going again mid-transfer, tranferred back to the commode. When patient done she was dressed and transferred to recliner to finish up grooming with OT. PT worked on transfers, balance on commode and shower chair. OT worked on dressing , bathing, cleaning. Assessment Current Status: Poor Progress Patient spent the majority of the time being transferred back and forth to the commode. PT Short Term Goals Short Term Goals Time Frame: May 10, 2018 Gait (FIM): 0 Distance (FIM): 0=does not occure Wheelchair (FIM): 1 Wheelchair distance (FIM): 1=up to 49 ft Wheelchair Distance: 25' Wheelchair Level of Assist: 3 PT Manager Management Goals Alf Goals PT Alf Goals Time Frame: May 27, 2018 Transfers (B,C,W/C) (FIM): 3 Sit to Lying (QC): 2 Lying-Sitting on Side/Bed(QC): 2 Sit to Stand (QC): 2 Rollin Roll Left to Right (QC): 2 Chair/Yjm-op-Wtuct Xfer(QC): 2 Car Transfer (QC): 2 Does the Patient Walk: No and Walking Goal IS indicated Gait (FIM): 1 Gait distance (FIM): 1=up to 49 ft Distance: 10' Walk 10 feet (QC): 3 Gait Level of Assist: 3 Gait Assistive Device: Walker Jose Luis Wheelchair (FIM): 2 Wheelchair distance (FIM): 0=663-87 ft Distance: 50' Wheelchair Level of Assist: 4 Wheel 50 feet with 2 turns (QC: 3 PT Plan Problem List Problem List: Activity Tolerance, Functional Strength, Safety, Balance, Gait, Transfer, Bed Mobility, ROM Treatment/Plan Treatment Plan: Continue Plan of Care Treatment Plan: Bed Mobility, Concurrent Therapy, Education, Functional Activity Sarah, Functional Strength, Group Therapy, Gait, Safety, Therapeutic Exercise, Transfers Treatment Duration: May 27, 2018 Frequency: At least 5 of 7 days/Wk (IRF) Estimated Hrs Per Day: 1.5 hours per day Patient and/or Family Agrees t: Yes Safety Risks/Education Patient Education: Transfer Techniques, Correct Positioning, Safety Issues Teaching Recipient: Patient Teaching Methods: Demonstration, Discussion Response to Teaching: Reinforcement Needed Time/GCodes Time In: 0800 Time Out: 09 Total Billed Treatment Time: 65 Total Billed Treatment 1 visit FA 65' KATHRINE ODONNELL PT May 16, 2018 09:16
[2018-05-16] MEDS: buPROPion SR 150 MG (WELLBUTRIN SR) TAB PO SCH (09:20)
[2018-05-16] MEDS: GABAPENTIN 300 MG (NEURONTIN) CAP PO SCH ×2 (09:20→20:08)
[2018-05-16] MEDS: NITROFURANTOIN 100 MG (MACROBID) CAPSULE PO SCH ×2 (09:20→20:08)
[2018-05-16] MEDS: ASPIRIN E.C. 81 MG (ECOTRIN) TAB PO SCH (09:20)
[2018-05-16] MEDS: PENTOXIFYLLINE ER 400 MG (TRENtal) TAB PO SCH (09:20)
[2018-05-16] MEDS: CARVEDILOL 12.5 MG (COREG) TABLET PO SCH ×2 (09:21→20:08)
[2018-05-16] MEDS: MAGNESIUM OXIDE (MAG-OX)400 MG TAB PO SCH ×2 (09:21→17:33)
[2018-05-16] MEDS: PANTOPRAZOLE 40 MG (PROTONIX) TAB PO SCH (09:21)
[2018-05-16] MEDS: amLODIPine 5 MG (NORVASC) TAB PO SCH (09:21)
[2018-05-16] MEDS: LACTULOSE SYRUP 10GM/15ML (ENULOSE) 30ML UDC PO SCH ×2 (09:24→20:09)
[2018-05-16] MEDS: POLYETHYLENE GLYCOL 17 GM (MIRALAX) PACK PO SCH ×2 (09:24→20:08)
[2018-05-16] MEDS: LATANOPROST 0.005% (XALATAN) OPHTH SOLN 2.5 ML OU SCH (09:26)
[2018-05-16] MEDS: BRIMONIDINE 0.2% (ALPHAGAN) OPHTH SOLN 5 ML BTL OU SCH ×2 (09:26→20:10)
[2018-05-16] MEDS: SENNA W/DOCUSATE (SENOKOT S) TABLET PO SCH ×2 (09:30→20:09)
--- NOTE | 2018-05-16 09:32 | Occupational Ther Daily Note ---
OT Current Status-Daily Note Subjective Pt alert, sitting in recliner. Pt agrees to therapy. No c/o pain. Mental Status/Objective Patient Orientation: Person, Place, Time, Situation Therapy Code Descriptions/Definitions Functional [place] Measure: 0=Not Assessed/NA 4=Minimal Assistance 1=Total Assistance 5=Supervision or Setup 2=Maximal Assistance 6=Modified [place] 3=Moderate Assistance 7=Complete [place] ADL-Treatment Co-treating with PT for skilled instruction and care due to poor patient endurance and activity tolerance, poor sitting and standing balance, poor strength and mobility. PT worked on transfers, balance on commode and shower chair. OT worked on dressing, bathing and toileting. Patient transferred to shower chair for shower with max assist, patient showered, started having a BM during shower, when done transferred to a beside commode. When done patient attempted to transfer to the wheelchair but she started going again mid-transfer , transferred back to the commode. Pt's transfers tends to get progressively hard throughout treatment. Initially pt had mod A for transfer then by the end of treatment max A transfer. Pt is not demonstrating any active movement in L UE. Increased tone is noted on L UE. Edema glove in place. After therapy, pt sitting in recliner with call light/phone in reach. Placed mirror in front of pt to work on keeping head in midline. All needs met in room. Therapy Code Descriptions/Definitions Functional [place] Measure: 0=Not Assessed/NA 4=Minimal Assistance 1=Total Assistance 5=Supervision or Setup 2=Maximal Assistance 6=Modified [place] 3=Moderate Assistance 7=Complete [place] Therapy Quality Codes: 6 Independent with activity with or without an assistive device 5 Patient requires set up or clean up by helper. Patient completes activity by themselves 4 Supervision or touching assist (CGA). [place] provide cues , steadying assist 3 The helper provides less than half the effort to complete the activity 2 The helper provides more than half the effort to complete the activity 1 Dependent. The helper does all the effort to complete an activity 7 Patient refused to complete or attempt activity 9 The patient did not perform the activity before the current illness or injury 88 Not attempted due to Medical conditions or safety concerns Eating (FIM): 5 (After set up, pt able to complete. Pt does attempt to open items.) Eating (QC): 5 Grooming (FIM): 5 (Set up required. Pt completes in sitting.) Bathing (FIM): 3 (Using rolling shower chair with cutout pt able to complete all areas except lower leg and buttocks. Assist to dry those areas also.) Bathing Location: L Arm, L Upper Leg, R Upper Leg, Chest, Abdomen, Perineal Area Shower/Bathe Self (QC): 3 Upper Body (FIM): 3 (After set up, pt is able to complete threading R UE, head and pulling down back.) Upper Body Dressing (QC): 3 Lower Body Dressing (FIM): 1 (Assist x2 to hike pants over hips and max A for donning/doffing over legs.) Lower Body Dressing (QC): 1 Toileting (FIM): 1 (Assist to cleanse sitting on toilet and assist x2 for manipulating clothing.) Toileting Hygiene (QC): 1 Transfers (B, C, W/C) (FIM): 2 Toilet/Commode Transfer (FIM): 2 (Max A for transfer.) Toilet Transfer (QC): 2 Shower Transfer(FIM): 1 (Using rolling shower chair.) OT Short Term Goals Short Term Goals Time Frame: May 10, 2018 Grooming(FIM): 4 Bathing(FIM): 2 Upper Body Dressing(FIM): 2 Lower Body Dressing(FIM): 2 Toileting(FIM): 2 Toilet/Commode Transfer(FIM): 2 Additional Short Term Goals: 1-Demonstrate ADL Tasks, 2-Verbalize Understanding , 3-ImproveStrength/Sarah 1=Demonstrate adherence to instructed precautions during ADL tasks. 2=Patient will verbalize/demonstrate understanding of assistive devices/ modifications for ADL. 3=Patient will improve strength/tolerance for activity to enable patient to perform ADL's. OT Osteologist Goals Shelter Goals Time Frame: May 31, 2018 Eating (FIM): 5 Eating (QC): 5 Groomin Oral Hygiene (QC): 5 Bathing(FIM): 3 Shower/Bathe Self (QC): 3 Upper Body Dressing(FIM): 4 Upper Body Dressing (QC): 4 Lower Body Dressing(FIM): 3 Lower Body Dressing (QC): 3 On/Off Footwear (QC): 3 Toileting(FIM): 3 Toileting Hygiene (QC): 3 Toilet/Commode Transfer(FIM): 4 Shower Transfer(FIM): 3 Additional Goals: 1-Demonstrate ADL Tasks, 2-Verbalize Understanding, 3- ImproveStrength/Sarah 1=Demonstrate adherence to instructed precautions during ADL tasks. 2=Patient will verbalize/demonstrate understanding of assistive devices/ modifications for ADL. 3=Patient will improve strength/tolerance for activity to enable patient to perform ADL's. OT Education/Plan Problem List/Assessment Assessment: Decreased Activ Tolerance, Decreased Safety Aware, Decreased UE Strength, Impaired Bed Mobility, Impaired Cognition, Impaired Funct Balance, Impaired I ADL's, Impaired Self-Care Skills, Restricted Funct UE ROM, Visual- Perceptual Deficit Pt admitted to ARU following CVA with left side deficits. Pt currently dependent for transfers and dressing. Pt demonstrates left neglect. Pt to benefit from skilled OT intervention for ADL training, transfers, strengthening , adaptive equipment training as needed, and safety education to increase level of function and allow safe discharge plan. Discharge Recommendations Plan/Recommendations: Continue POC Treatment Plan/Plan of Care Patient would benefit from OT for education, treatment and training to promote independence in ADL's, mobility, safety and/or upper extremity function for ADL' s. Plan of Care: ADL Retraining, Functional Mobility, Group Exercise/Act as Ind, UE Funct Exercise/Act, UE Neuromus Re-Ed/Coord, Visual/Perceptual Retrain Treatment Duration: May 31, 2018 Frequency: At least 5 of 7 days/Wk (IRF) Estimated Hrs Per Day: 1.5 hours per day Agreement: Yes Rehab Potential: Fair Time/GCodes Start Time: 07:15 Stop Time: 09:15 Total Time Billed (hr/min): 120 Billed Treatment Time 1 visit-ADL 8 (120 min) co-treat from [id number] (65 min) individual: 0715- 0800 (45min),[id number] (10 min) SAMMI BELL May 16, 2018 09:32
--- NOTE | 2018-05-16 15:32 | Speech Therapy Daily Note ---
Speech Daily Progress Note Subjective Date Seen by Provider: May 16, 2018 Time Seen by Provider: 00:30 Patient was pleasant and talkative this afternoon. Objective Patient completed safety scenarios with 90% accuracy with minimal cues. Assessment Assessment Current Status: Good Progress Treatment Plan Continue Plan of Care Communication Comprehension: 4 Expression: 3 Social Cognition Social Interaction: 3 Problem Solvin Memory: 3 Speech Short Term Goals Short Term Goals Short Term Goals 1) Patient will complete memory tasks for improving safety and independence with 90% or greater. 2) Patient will complete problem solving tasks for improving safety and independence with 90% or greater. Speech Half-Way Goals Service Observer Goals Patient will improve safety and independence for achieving highest potential level of function. Speech-Plan Patient/Family Goals Patient/Family Goals: Patient plans to go to a local SNF due to inability to care for herself. Treatment Plan Speech Therapy Treatment Plan: Continue Plan of Care Patient is progressing on ST goals as a result of skilled services. Treatment Duration: May 18, 2018 Frequency: 5 times per week Estimated Hrs Per Day: .5 hour per day Rehab Potential: Fair Barriers to Learning: Patient has difficulty with recall of new information. Pt/Family Agrees to Plan: Yes Safety Risks/Education Teaching Recipient: Patient Teaching Methods: Discussion Response to Teaching: Verbalize Understanding Time Speech Therapy Time In: 15:00 Speech Therapy Time Out: 15:30 Total Billed Time: 30 Billed Treatment Time 1D[address] May 16, 2018 15:32
--- NOTE | 2018-05-16 15:40 | NUR ---
VOIDED 100 CC THEN BLADDER SCANNED AND SHOWED 75 CC.
[2018-05-16 15:57] VITALS: BP 105/68
[2018-05-16] MEDS: DICLOFENAC 1% GEL 100 GM (VOLTAREN) TUBE TOP PRN (16:05)
[2018-05-16] MEDS: RIVAROXABAN 15 MG TABLET (XARELTO) PO SCH (16:08)
[2018-05-16] MEDS: TAMSULOSIN 0.4 MG (FLOMAX) CAP PO SCH (17:33)
[2018-05-16] MEDS: HYDROcodone/APAP 5 MG/325 MG (LORTAB) TAB PO PRN ×2 (17:34→22:08)
--- NOTE | 2018-05-16 19:00 | NUR ---
KPAD TO NECK AND VOLTAREN CREAM. USING LORTAB FOR NECK PAIN ALSO.
[2018-05-16 20:06] VITALS: BP 105/78
[2018-05-16] MEDS: ATORVASTATIN 20 MG (LIPITOR) TABLET PO SCH (20:08)
[2018-05-17 05:16] VITALS: BP 98/72
[2018-05-17] MEDS: BETHANECHOL 25 MG (URECHOLINE) TAB PO SCH ×4 (06:24→20:22)
--- NOTE | 2018-05-17 08:00 | Occupational Ther Daily Note ---
OT Current Status-Daily Note Subjective Pt alert, sitting up in recliner. Pt agrees to therapy. No c/o pain. Mental Status/Objective Patient Orientation: Person, Place, Time, Situation Therapy Code Descriptions/Definitions Functional [place] Measure: 0=Not Assessed/NA 4=Minimal Assistance 1=Total Assistance 5=Supervision or Setup 2=Maximal Assistance 6=Modified [place] 3=Moderate Assistance 7=Complete [place] ADL-Treatment Pt agrees to don clothing. Verbal cues to use modified dressing techniques. Pt transferred from recliner to toilet with mod A, reached to [facility] with R UE when grasped armrest would push away from instead of pull towards. Pt dressed on BSC after voiding. Assist to hook bra, rotate around body, placed R UE into strap, assist with L UE. Assist to thread L UE into sleeve then pt able to thread R UE into sleeve, place over head and pull down back. Dependent with donning lower body clothing and toileting. After therapy, pt sitting recliner with call light/phone in reach. Therapy Code Descriptions/Definitions Functional [place] Measure: 0=Not Assessed/NA 4=Minimal Assistance 1=Total Assistance 5=Supervision or Setup 2=Maximal Assistance 6=Modified Ch[place] 3=Moderate Assistance 7=Complete Ch[place] Therapy Quality Codes: 6 Independent with activity with or without an assistive device 5 Patient requires set up or clean up by helper. Patient completes activity by themselves 4 Supervision or touching assist (CGA). [place] provide cues , steadying assist 3 The helper provides less than half the effort to complete the activity 2 The helper provides more than half the effort to complete the activity 1 Dependent. The helper does all the effort to complete an activity 7 Patient refused to complete or attempt activity 9 The patient did not perform the activity before the current illness or injury 88 Not attempted due to Medical conditions or safety concerns Upper Body (FIM): 4 Upper Body Dressing (QC): 3 Lower Body Dressing (FIM): 1 Lower Body Dressing (QC): 1 On/Off Footwear (QC): 2 Toileting (FIM): 1 Toileting Hygiene (QC): 1 Transfers (B, C, W/C) (FIM): 3 Toilet/Commode Transfer (FIM): 3 Toilet Transfer (QC): 3 OT Short Term Goals Short Term Goals Time Frame: May 10, 2018 Grooming(FIM): 4 Bathing(FIM): 2 Upper Body Dressing(FIM): 2 Lower Body Dressing(FIM): 2 Toileting(FIM): 2 Toilet/Commode Transfer(FIM): 2 Additional Short Term Goals: 1-Demonstrate ADL Tasks, 2-Verbalize Understanding , 3-ImproveStrength/Sarah 1=Demonstrate adherence to instructed precautions during ADL tasks. 2=Patient will verbalize/demonstrate understanding of assistive devices/ modifications for ADL. 3=Patient will improve strength/tolerance for activity to enable patient to perform ADL's. OT Fdc Goals Automatic Coil Machine Operator Goals Time Frame: May 31, 2018 Eating (FIM): 5 Eating (QC): 5 Groomin Oral Hygiene (QC): 5 Bathing(FIM): 3 Shower/Bathe Self (QC): 3 Upper Body Dressing(FIM): 4 Upper Body Dressing (QC): 4 Lower Body Dressing(FIM): 3 Lower Body Dressing (QC): 3 On/Off Footwear (QC): 3 Toileting(FIM): 3 Toileting Hygiene (QC): 3 Toilet/Commode Transfer(FIM): 4 Shower Transfer(FIM): 3 Additional Goals: 1-Demonstrate ADL Tasks, 2-Verbalize Understanding, 3- ImproveStrength/Sarah 1=Demonstrate adherence to instructed precautions during ADL tasks. 2=Patient will verbalize/demonstrate understanding of assistive devices/ modifications for ADL. 3=Patient will improve strength/tolerance for activity to enable patient to perform ADL's. OT Education/Plan Problem List/Assessment Assessment: Decreased Safety Aware, Decreased UE Strength, Impaired Coordination, Impaired Funct Balance, Impaired Self-Care Skills, Restricted Funct UE ROM, Visual-Perceptual Deficit Pt admitted to ARU following CVA with left side deficits. Pt currently dependent for transfers and dressing. Pt demonstrates left neglect. Pt to benefit from skilled OT intervention for ADL training, transfers, strengthening , adaptive equipment training as needed, and safety education to increase level of function and allow safe discharge plan. Discharge Recommendations Plan/Recommendations: Continue POC Treatment Plan/Plan of Care Patient would benefit from OT for education, treatment and training to promote independence in ADL's, mobility, safety and/or upper extremity function for ADL' s. Plan of Care: ADL Retraining, Functional Mobility, Group Exercise/Act as Ind, UE Funct Exercise/Act, UE Neuromus Re-Ed/Coord, Visual/Perceptual Retrain Treatment Duration: May 31, 2018 Frequency: At least 5 of 7 days/Wk (IRF) Estimated Hrs Per Day: 1.5 hours per day Agreement: Yes Rehab Potential: Fair Time/GCodes Start Time: 07:15 Stop Time: 08:00 Total Time Billed (hr/min): 45 Billed Treatment Time 1 visit-ADL 3 (45 min) SAMMI BELL May 17, 2018 08:00
--- NOTE | 2018-05-17 08:15 | Cardiology Progress Note ---
Subjective Date Seen by Provider: May 17, 2018 Time Seen by Provider: 08:14 Subjective/Events-last exam Patient is sitting up in bed, no new complaints. Continues to have left sided weakness. Objective-Cardiology Exam Last Set of Vital Signs Vital Signs 05/17/18 05:16 Temp 97.5 Pulse 58 Resp 16 B/P (MAP) 98/72 (81) Pulse Ox 96 O2 Delivery Room Air Capillary Refill : I&O Intake and Output 05/17/18 00:00 Intake Total 1170 ml Output Total 1600 ml Balance -430 ml Intake Oral 1170 ml Output Urine Total 1600 ml Bladder Scan Volume Amount 75 ml # Voids 1 # Bowel Movements 2 General: Alert, Oriented X3, Cooperative HEENT: Atraumatic, PERRLA Neck: Supple, No JVD, No Thyromegaly Lungs: Clear to Auscultation, Normal Air Movement Heart: Regular Rate, Normal S1, Normal S2, No Murmurs Abdomen: Normal Bowel Sounds, Soft, No Tenderness, No Hepatosplenomegaly, No Masses Extremities: No Clubbing, No Cyanosis, No Edema, Normal Pulses, No Tenderness/ Swelling Skin: No Rashes, No Breakdown, No Significant Lesion Neuro: Normal Speech, Sensation Intact, Cranial Nerves 3-12 NL, Other (left sided weakness) Psych/Mental Status: Mental Status NL, Other (flat affect) A/P-Cardiology Admission Diagnosis CVA HTN HLP CRI Assessment/Plan 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 Jaime. Continue to monitor renal function Hypertension, controlled, continue to monitor blood pressure. Hyperlipidemia, monitor lipids Intermediate metabolizer for Plavix History of syncope, no further syncopal episodes were reported Osteoarthritis, rheumatoid arthritis, history of fibromyalgia, history of depression and elevated LPa Depression- on Wellbutrin Clinical Quality Measures DVT/VTE Risk/Contraindication: Risk Factor Score Per Nursin RFS Level Per Nursing on Admit: 4+=Very High DAPHNIE FORREST May 17, 2018 08:15
--- NOTE | 2018-05-17 08:29 | PM&R Progress Note ---
Subjective HPI/CC On Admission Date Seen by Provider: May 17, 2018 Time Seen by Provider: 08:30 CC: Devastating CVA with left sided weakness HPI: This is a 73yoWF clinic patient of [facility] who was transferred from 4th floor after sustaining a devastating CVA w/left sided flaccidity. Patient had a h/o CVA with subtle right sided facial numbness in the past and placed on anticoagulation for PAF noted on REVEAL device placed by Dr Aponte but presented past the tPA window with left sided weakness after found in bed by family. She was seen by Dr Aponte and risk stratification was initiated. Carotid CTA was recommended but due to renal insufficiency that test could not be done. Currently patient is very depressed and will increase Wellbutrin dose and consult Behavioral Health to facilitate management of this new disability. Bowels are moving and catheter was DC and incontinence was noted on 4th floor. Subjective/Events-last exam Patient doing well today, visiting with ST Post-void residual is minimal so doing really well with that Bowel movement last night. Affect is much better and she is interacting much more and that has encouraged Cardiology service too Left neck is helped by Diclofenac gel and PT stretching and heating K-pad. NHP at [facility] at DC is planned. Heart rate a bit elevated this morning before Coreg and I notified Dr Aponte service and they will download the loop recorder in case we can capture PAF as the likely cause of the CVA but was on anticoagulation before CVA Review of Systems General: Fatigue Musculoskeletal: neck pain Neurological: Weakness, Numbness, Incoordination Objective Exam Vital Signs Vital Signs Date Time Temp Pulse Resp B/P (MAP) Pulse Ox O2 Delivery O2 Flow Rate FiO2 05/17/18 08:53 114 108/74 (85) 05/17/18 05:16 97.5 16 96 Room Air Capillary Refill : General Appearance: No Apparent Distress, WD/WN, Chronically ill, Obese HEENT: PERRL/EOMI, Normal ENT Inspection, Pharynx Normal, Moist Mucous Membranes, Other Neck: Full Range of Motion, Normal Inspection, Non Tender, Supple Respiratory: Chest Non Tender, Lungs Clear, Normal Breath Sounds, No Accessory Muscle Use, No Respiratory Distress Cardiovascular: Regular Rate, Rhythm, No Edema, No Gallop, No JVD, No Murmur, Tachycardia Gastrointestinal: Normal Bowel Sounds, No Organomegaly, No Pulsatile Mass, Non Tender, Soft Back: Normal Inspection, No CVA Tenderness, No Vertebral Tenderness Extremity: Normal Capillary Refill, Normal Inspection, Non Tender, No Calf Tenderness, No Pedal Edema, Other Neurologic/Psychiatric: Alert, Oriented x3, Depressed Affect (improved), Motor Weakness, Other Skin: Normal Color, Warm/Dry Lymphatic: No Adenopathy Results/Procedures Lab Patient resulted labs reviewed. Assessment/Plan Assessment and Plan Assess & Plan/Chief Complaint Assessment: Devastating CVA w/left sided flaccidity PAF Anticoagulation chronic use even before CVA Severe depression received treatment with counselor and increased meds and now doing relatively well Anxiety hx Former smoker HTN New bladder incontinence since CVA but now improved with Urology management CRI creat 1.8 last check now baseline 1.6 Urinary retention now resolved and catheter DC maintained on Urecholine Neck pain Tachycardia today Cardiology notified and will download the loop recorder Plan: Intensive therapies to continue Maintain the increase of Wellbutrin Psych consultation for severe depression was appreciated Check labs adrian creatinine periodically Appreciate Dr Aponte following the patient Overall prognosis dependent on her ability to maintain motivation Urinary retention is managed by Dr Mendoza and doing well on Urecholine Diclofenac gel prn along with K-pad (1) Cerebrovascular accident (CVA) with left hemiparesis (2) CVA, old, facial weakness (3) Anticoagulant long-term use (4) Hypertension (5) Paroxysmal atrial fibrillation (6) Incontinence of urine (7) Hyperlipidemia (8) Depression (9) Back pain (10) Urinary retention Clinical Quality Measures DVT/VTE Risk/Contraindication: Risk Factor Score Per Nursin RFS Level Per Nursing on Admit: 4+=Very High SANDY WILLIS DO May 17, 2018 08:29
[2018-05-17 08:53] VITALS: BP 108/74
[2018-05-17] MEDS: GABAPENTIN 300 MG (NEURONTIN) CAP PO SCH ×2 (08:54→20:22)
[2018-05-17] MEDS: NITROFURANTOIN 100 MG (MACROBID) CAPSULE PO SCH (08:54)
[2018-05-17] MEDS: CARVEDILOL 12.5 MG (COREG) TABLET PO SCH (08:55)
[2018-05-17] MEDS: ASPIRIN E.C. 81 MG (ECOTRIN) TAB PO SCH (08:55)
[2018-05-17] MEDS: PANTOPRAZOLE 40 MG (PROTONIX) TAB PO SCH (08:55)
[2018-05-17] MEDS: buPROPion SR 150 MG (WELLBUTRIN SR) TAB PO SCH (08:55)
[2018-05-17] MEDS: PENTOXIFYLLINE ER 400 MG (TRENtal) TAB PO SCH (08:55)
[2018-05-17] MEDS: MAGNESIUM OXIDE (MAG-OX)400 MG TAB PO SCH ×2 (08:55→18:24)
[2018-05-17] MEDS: amLODIPine 5 MG (NORVASC) TAB PO SCH (08:55)
[2018-05-17] MEDS: LATANOPROST 0.005% (XALATAN) OPHTH SOLN 2.5 ML OU SCH (08:59)
[2018-05-17] MEDS: LACTULOSE SYRUP 10GM/15ML (ENULOSE) 30ML UDC PO SCH ×2 (08:59→20:23)
[2018-05-17] MEDS: BRIMONIDINE 0.2% (ALPHAGAN) OPHTH SOLN 5 ML BTL OU SCH ×2 (08:59→20:23)
[2018-05-17] MEDS: POLYETHYLENE GLYCOL 17 GM (MIRALAX) PACK PO SCH ×2 (09:00→20:23)
[2018-05-17] MEDS: SENNA W/DOCUSATE (SENOKOT S) TABLET PO SCH ×2 (09:00→20:23)
--- NOTE | 2018-05-17 09:05 | Speech Therapy Daily Note ---
Speech Daily Progress Note Subjective Date Seen by Provider: May 17, 2018 Time Seen by Provider: 00:30 Patient was sitting up in her recliner with her noticeably sitting more upright. Objective Patient completed conversational tasks related to the patient's daily needs at 90% with minimal verbal cues needed. Assessment Assessment Current Status: Good Progress Treatment Plan Continue Plan of Care Communication Comprehension: 4 Expression: 3 Social Cognition Social Interaction: 3 Problem Solvin Memory: 3 Speech Short Term Goals Short Term Goals Short Term Goals 1) Patient will complete memory tasks for improving safety and independence with 90% or greater. 2) Patient will complete problem solving tasks for improving safety and independence with 90% or greater. Speech Socket Welder Helper Goals Socket Welder Helper Goals Patient will improve safety and independence for achieving highest potential level of function. Speech-Plan Patient/Family Goals Patient/Family Goals: Patient plans to go to a SNF following discharge from rehab. Treatment Plan Speech Therapy Treatment Plan: Continue Plan of Care Patient has made good progress with cognitive deficits as a result of skilled ST services. Treatment Duration: May 18, 2018 Frequency: 5 times per week Estimated Hrs Per Day: .5 hour per day Rehab Potential: Fair Barriers to Learning: Left sided neglect. Pt/Family Agrees to Plan: Yes Safety Risks/Education Teaching Recipient: Patient Teaching Methods: Discussion Response to Teaching: Verbalize Understanding Education Topics Provided: Patient's safety during her daily tasks. Time Speech Therapy Time In: 08:30 Speech Therapy Time Out: 09:00 Total Billed Time: 30 Billed Treatment Time [address] May 17, 2018 09:05
--- NOTE | 2018-05-17 09:33 | Progress Note-Urology ---
Progress Note-Urology Progress Notes/Assess & Plan Progress/Assessment & Plan CONTINUES VOIDING WELL. TOLERATES FLOMAX AND URECHOLINE WELL. PVR UNDER 100 Final Diagnosis URINE RETENTION (RESOLVING) DANIELE NAIK MD May 17, 2018 09:33
--- NOTE | 2018-05-17 09:34 | Progress Note-Urology ---
Progress Note-Urology Progress Notes/Assess & Plan Progress/Assessment & Plan VOIDING AND EMPTYING BETTER ON URECHOLINE. PVR UNDER 200. TOLERATES IT WELL Final Diagnosis URINE RETENTION (IMPROVING) DANIELE NAIK MD May 17, 2018 09:34
--- NOTE | 2018-05-17 10:19 | Physical Therapy Daily Note ---
PT Daily Note-Current Subjective Pt. agrees to Rx. Pt states she feels she understands what happened with her stroke a little bit more. Pt. c/o some dizziness with position change. Pt. states she had suffered some unsteadiness after the stroke she had before Pain Location: No Pain Reported Mental Status Patient Orientation: Person, Place, Time, Situation Transfers Therapy Code Descriptions/Definitions Functional [place] Measure: 0=Not Assessed/NA 4=Minimal Assistance 1=Total Assistance 5=Supervision or Setup 2=Maximal Assistance 6=Modified [place] 3=Moderate Assistance 7=Complete [place] Therapy Quality Codes: 6 Independent with activity with or without an assistive device 5 Patient requires set up or clean up by helper. Patient completes activity by themselves 4 Supervision or touching assist (CGA). [place] provide cues , steadying assist 3 The helper provides less than half the effort to complete the activity 2 The helper provides more than half the effort to complete the activity 1 Dependent. The helper does all the effort to complete an activity 7 Patient refused to complete or attempt activity 9 The patient did not perform the activity before the current illness or injury 88 Not attempted due to Medical conditions or safety concerns Transfers (B, C, W/C) (FIM): 2 Scootin Rollin Roll Left to Right (QC): 2 Supine to/from Sit: 3 Sit to/from Stand: 2 Sit to Lying (QC): 2 Sit to Stand (QC): 2 Chair/Rvi-gm-Dmnkg Xfer(QC): 2 Bed to/from Chair: 2 Car Transfer (QC): 2 Weight Bearing Right Lower Extremity: Right Full Weight Bearing Left Lower Extremity: Left Full Weight Bearing Gait Training Does the Patient Walk?: No and Walking Goal NOT indicated Wheelchair Training Does the Pt Use a Wheelchair?: Yes Wheelchair (FIM): 1 Wheelchair Distance: 1=up to 49 ft (30ft , 15ft) Wheelchair Level of Assist: 3 Wheel 50 ft with 2 turns (QC): 2 Type of Wheelchair: Manual needs assist for all braking, needs instruction and assist for turning w/c, propelling w/c is not functional mode of mobility for pt. Stair Training Stairs (FIM): 88 Exercises Supine Ex: Bridging, Ankle pumps (HC stretch on left), Quad Set, Rolling ( assisted), Glut sets, Lower trunk rotation (assisted), Heel Slides (ssisted left ), Short Arc Quads (right only), Scooting (assisted), D1 F/E UE, D2 F/E UE, Hip abd/add (asisted left) Supine Reps: 15 Seated Therapy Exercises: Sit to stand (assisted x 12) Neuromuscular supine LLE ther ex for tone reduction , no noted active movement, several attempts to elicit movement with quick stretch , tapping etc. Treatments sitting balance and seated alignment was focused on this date with small roll under left buttock for short time to right position. mirror image utilized, assist for head and neck righting and symmetryCo-treating with PT for skilled instruction and care due to poor patient endurance and activity tolerance, poor sitting and standing balance, poor strength and mobility Assessment Current Status: Fair Progress dependent for all mobility PT Short Term Goals Short Term Goals Time Frame: May 10, 2018 Gait (FIM): 0 Distance (FIM): 0=does not occure Wheelchair (FIM): 1 Wheelchair distance (FIM): 1=up to 49 ft Wheelchair Distance: 25' Wheelchair Level of Assist: 3 PT Information Security Systems Instructor Goals Assisted Goals PT Assisted Goals Time Frame: May 27, 2018 Transfers (B,C,W/C) (FIM): 3 Sit to Lying (QC): 2 Lying-Sitting on Side/Bed(QC): 2 Sit to Stand (QC): 2 Rollin Roll Left to Right (QC): 2 Chair/Rlg-jb-Fnwkz Xfer(QC): 2 Car Transfer (QC): 2 Does the Patient Walk: No and Walking Goal IS indicated Gait (FIM): 1 Gait distance (FIM): 1=up to 49 ft Distance: 10' Walk 10 feet (QC): 3 Gait Level of Assist: 3 Gait Assistive Device: Walker Jose Luis Wheelchair (FIM): 2 Wheelchair distance (FIM): 1=117-83 ft Distance: 50' Wheelchair Level of Assist: 4 Wheel 50 feet with 2 turns (QC: 3 PT Plan Treatment/Plan Treatment Plan: Continue Plan of Care Treatment Plan: Bed Mobility, Concurrent Therapy, Education, Functional Activity Sarah, Functional Strength, Group Therapy, Gait, Safety, Therapeutic Exercise, Transfers Treatment Duration: May 27, 2018 Frequency: At least 5 of 7 days/Wk (IRF) Estimated Hrs Per Day: 1.5 hours per day Patient and/or Family Agrees t: Yes Safety Risks/Education Patient Education: Transfer Techniques, Correct Positioning, W/C Management, Disease Process, Safety Issues Teaching Recipient: Patient Teaching Methods: Demonstration, Discussion Response to Teaching: Verbalize Understanding, Return Demonstration, Reinforcement Needed much discussion and education this date regarding CVA and physiology etc Time/GCodes Time In: 910 Time Out: 1010 Total Billed Treatment Time: 60 Total Billed Treatment 1,w/c 10m,EX20m,FA30m G Codes Necessary: JALEN Argueta BRAID PATTERN SETTER May 17, 2018 10:19
--- NOTE | 2018-05-17 10:30 | NUR ---
DR. MARTINEZ HERE. EKG DONE DUE TO TACHYCARDIA. EKG SHOWS SR WITH PAC'S. PLACED ON CHART. COREG DC'D AND CHANGED TO TOPROL.
--- NOTE | 2018-05-17 11:18 | Cardiology Progress Note ---
Subjective Date Seen by Provider: May 17, 2018 Time Seen by Provider: 11:17 Subjective/Events-last exam patient is laying down in bed, no new complaint Review of Systems General: No Chills, No Night Sweats, No Fatigue, No Malaise, No Appetite, No Other HEENT: No Head Aches, No Visual Changes, No Eye Pain, No Ear Pain, No Dysphasia , No Sinus Congestion, No Post Nasal Drip, No Sore Throat, No Other Pulmonary: No Dyspnea, No Cough, No Pleuritic Chest Pain, No Other Cardiovascular: No: Chest Pain, Palpitations, Orthopnea, Paroxysmal Noc. Dyspnea, Edema, Lt Headedness, Other Objective-Cardiology Exam Last Set of Vital Signs Vital Signs 05/17/18 05/17/18 05:16 08:53 Temp 97.5 Pulse 114 Resp 16 B/P (MAP) 108/74 (85) Pulse Ox 96 O2 Delivery Room Air Capillary Refill : I&O Intake and Output 05/17/18 00:00 Intake Total 1170 ml Output Total 1600 ml Balance -430 ml Intake Oral 1170 ml Output Urine Total 1600 ml Bladder Scan Volume Amount 75 ml # Voids 1 # Bowel Movements 2 General: Alert, Oriented X3, Cooperative HEENT: Atraumatic, PERRLA Neck: Supple, No JVD, No Thyromegaly Lungs: Clear to Auscultation, Normal Air Movement Heart: Regular Rate, Normal S1, Normal S2, No Murmurs Abdomen: Normal Bowel Sounds, Soft, No Tenderness, No Hepatosplenomegaly, No Masses Extremities: No Clubbing, No Cyanosis, No Edema, Normal Pulses, No Tenderness/ Swelling Skin: No Rashes, No Breakdown, No Significant Lesion Neuro: Normal Speech, Sensation Intact, Cranial Nerves 3-12 NL, Other (left sided weakness) Psych/Mental Status: Mental Status NL, Other (flat affect) A/P-Cardiology Admission Diagnosis CVA HTN HLP CRI Assessment/Plan 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 History of one episode of short atrial fibrillation on her loop recorder,no recent episode, maintained on Xarelto Chronic renal insufficiency, chronic kidney disease with history of single kidney, has been followed by Dr. Jaime. Continue to monitor renal function Hypertension, controlled, continue to monitor blood pressure. Hyperlipidemia, monitor lipids Intermediate metabolizer for Plavix History of syncope, no further syncopal episodes were reported Osteoarthritis, rheumatoid arthritis, history of fibromyalgia, history of depression and elevated LPa Depression- on Wellbutrin Clinical Quality Measures DVT/VTE Risk/Contraindication: Risk Factor Score Per Nursin RFS Level Per Nursing on Admit: 4+=Very High DOMI MARTINEZ MD May 17, 2018 11:18
--- NOTE | 2018-05-17 12:22 | Occupational Ther Daily Note ---
OT Current Status-Daily Note Subjective Pt alert, sitting in recliner. Pt agrees to therapy. No c/o pain at this time. Pt did c/o of dizziness with quick position changes. Mental Status/Objective Patient Orientation: Person, Place, Time, Situation Therapy Code Descriptions/Definitions Functional [place] Measure: 0=Not Assessed/NA 4=Minimal Assistance 1=Total Assistance 5=Supervision or Setup 2=Maximal Assistance 6=Modified [place] 3=Moderate Assistance 7=Complete [place] ADL-Treatment Therapy Code Descriptions/Definitions Functional [place] Measure: 0=Not Assessed/NA 4=Minimal Assistance 1=Total Assistance 5=Supervision or Setup 2=Maximal Assistance 6=Modified [place] 3=Moderate Assistance 7=Complete [place] Therapy Quality Codes: 6 Independent with activity with or without an assistive device 5 Patient requires set up or clean up by helper. Patient completes activity by themselves 4 Supervision or touching assist (CGA). [place] provide cues , steadying assist 3 The helper provides less than half the effort to complete the activity 2 The helper provides more than half the effort to complete the activity 1 Dependent. The helper does all the effort to complete an activity 7 Patient refused to complete or attempt activity 9 The patient did not perform the activity before the current illness or injury 88 Not attempted due to Medical conditions or safety concerns Other Treatment Co-treat with PT for skilled instructions and care due to decreased mobility, activity tolerance and functional instruction. PT worked on transfers, dynamic sitting balance and LE PROM/stretching. OT worked on functional transfers, L UE wt bearing, dynamic sitting and L UE PROM/stretching. Pt demonstrated mod A for transfers with physical and verbal cues. Pt tends to push away with R UE when transferring to R side. No active movement noted in L UE, increased tone noted. No pain with stretch or PROM to L UE. Good static sitting balance, fair dynamic sitting balance. After therapy, pt lying in bed with call light/ phone in reach. All needs met in room. OT Short Term Goals Short Term Goals Time Frame: May 10, 2018 Grooming(FIM): 4 Bathing(FIM): 2 Upper Body Dressing(FIM): 2 Lower Body Dressing(FIM): 2 Toileting(FIM): 2 Toilet/Commode Transfer(FIM): 2 Additional Short Term Goals: 1-Demonstrate ADL Tasks, 2-Verbalize Understanding , 3-ImproveStrength/Sarah 1=Demonstrate adherence to instructed precautions during ADL tasks. 2=Patient will verbalize/demonstrate understanding of assistive devices/ modifications for ADL. 3=Patient will improve strength/tolerance for activity to enable patient to perform ADL's. OT Clerical Adviser Goals Usp Goals Time Frame: May 31, 2018 Eating (FIM): 5 Eating (QC): 5 Groomin Oral Hygiene (QC): 5 Bathing(FIM): 3 Shower/Bathe Self (QC): 3 Upper Body Dressing(FIM): 4 Upper Body Dressing (QC): 4 Lower Body Dressing(FIM): 3 Lower Body Dressing (QC): 3 On/Off Footwear (QC): 3 Toileting(FIM): 3 Toileting Hygiene (QC): 3 Toilet/Commode Transfer(FIM): 4 Shower Transfer(FIM): 3 Additional Goals: 1-Demonstrate ADL Tasks, 2-Verbalize Understanding, 3- ImproveStrength/Sarah 1=Demonstrate adherence to instructed precautions during ADL tasks. 2=Patient will verbalize/demonstrate understanding of assistive devices/ modifications for ADL. 3=Patient will improve strength/tolerance for activity to enable patient to perform ADL's. OT Education/Plan Problem List/Assessment Assessment: Decreased Activ Tolerance, Decreased Safety Aware, Decreased UE Strength, Impaired Coordination, Impaired Funct Balance, Impaired I ADL's, Impaired Self-Care Skills, Restricted Funct UE ROM, Visual-Perceptual Deficit Pt admitted to ARU following CVA with left side deficits. Pt currently dependent for transfers and dressing. Pt demonstrates left neglect. Pt to benefit from skilled OT intervention for ADL training, transfers, strengthening , adaptive equipment training as needed, and safety education to increase level of function and allow safe discharge plan. Discharge Recommendations Plan/Recommendations: Continue POC Treatment Plan/Plan of Care Patient would benefit from OT for education, treatment and training to promote independence in ADL's, mobility, safety and/or upper extremity function for ADL' s. Plan of Care: ADL Retraining, Functional Mobility, Group Exercise/Act as Ind, UE Funct Exercise/Act, UE Neuromus Re-Ed/Coord, Visual/Perceptual Retrain Treatment Duration: May 31, 2018 Frequency: At least 5 of 7 days/Wk (IRF) Estimated Hrs Per Day: 1.5 hours per day Agreement: Yes Rehab Potential: Fair Time/GCodes Start Time: 09:00 Stop Time: 10:10 Total Time Billed (hr/min): 70 Billed Treatment Time 1 visit-FA 1 (10 min) NM 4 (60 min) Co-treat with PT for 60 min [id number], Individual 10 min [id number] SAMMI BELL May 17, 2018 12:21
--- NOTE | 2018-05-17 12:34 | Occupational Ther Daily Note ---
OT Current Status-Daily Note Subjective Pt alert, lying in bed. Pt agrees to therapy. Pt stated that she had just an EKG and went to the bathroom. Mental Status/Objective Patient Orientation: Person, Place, Time, Situation Therapy Code Descriptions/Definitions Functional [place] Measure: 0=Not Assessed/NA 4=Minimal Assistance 1=Total Assistance 5=Supervision or Setup 2=Maximal Assistance 6=Modified [place] 3=Moderate Assistance 7=Complete [place] ADL-Treatment Therapy Code Descriptions/Definitions Functional [place] Measure: 0=Not Assessed/NA 4=Minimal Assistance 1=Total Assistance 5=Supervision or Setup 2=Maximal Assistance 6=Modified [place] 3=Moderate Assistance 7=Complete [place] Therapy Quality Codes: 6 Independent with activity with or without an assistive device 5 Patient requires set up or clean up by helper. Patient completes activity by themselves 4 Supervision or touching assist (CGA). [place] provide cues , steadying assist 3 The helper provides less than half the effort to complete the activity 2 The helper provides more than half the effort to complete the activity 1 Dependent. The helper does all the effort to complete an activity 7 Patient refused to complete or attempt activity 9 The patient did not perform the activity before the current illness or injury 88 Not attempted due to Medical conditions or safety concerns Eating (FIM): 5 (Per previous treatment session. Pt completes after set up. Will attempt to open packages.) Eating (QC): 5 Grooming (FIM): 4 (Assist to brush dentures. After set up, pt able to complete rest of grooming sitting at sink.) Oral Hygiene (QC): 3 Bathing (FIM): 4 (Using rolling shower chair with cutout and hand held shower pt able to reach all areas except R arm. Close SBA for safety.) Bathing Location: L Arm, L Upper Leg, R Upper Leg, L Lower Leg (including foot) , R Lower Leg (including foot), Chest, Abdomen, Buttocks, Perineal Area Shower/Bathe Self (QC): 3 Upper Body (FIM): 4 (Assist to thread L UE into sleeve, pt able to complete rest.) Upper Body Dressing (QC): 3 Lower Body Dressing (FIM): 1 (Assist to thread B LE's into pant leg and pull up legs. Assist x2 to hike pants over hips.) Lower Body Dressing (QC): 1 On/Off Footwear (QC): 2 Toileting (FIM): 1 (Assist to cleanse self after BM. Assist x2 to manipulate clothing.) Toileting Hygiene (QC): 1 Transfers (B, C, W/C) (FIM): 3 Toilet/Commode Transfer (FIM): 3 (Mod A for transfer. Verbal cues for hand placement and assist to shuffle L foot and stabilize L knee.) Toilet Transfer (QC): 3 Shower Transfer(FIM): 1 (Using rolling shower chair with cutout) Pt fatigues quickly with shower. After therapy, pt lying in bed with call light /phone in reach. All needs met in room. OT Short Term Goals Short Term Goals Time Frame: May 10, 2018 Grooming(FIM): 4 Bathing(FIM): 2 Upper Body Dressing(FIM): 2 Lower Body Dressing(FIM): 2 Toileting(FIM): 2 Toilet/Commode Transfer(FIM): 2 Additional Short Term Goals: 1-Demonstrate ADL Tasks, 2-Verbalize Understanding , 3-ImproveStrength/Sarah 1=Demonstrate adherence to instructed precautions during ADL tasks. 2=Patient will verbalize/demonstrate understanding of assistive devices/ modifications for ADL. 3=Patient will improve strength/tolerance for activity to enable patient to perform ADL's. OT Senior Living Goals Nurse Anesthetist Goals Time Frame: May 31, 2018 Eating (FIM): 5 (met) Eating (QC): 5 (met) Groomin (not met) Oral Hygiene (QC): 5 (not met) Bathing(FIM): 3 (met) Shower/Bathe Self (QC): 3 (met) Upper Body Dressing(FIM): 4 (me) Upper Body Dressing (QC): 4 (met) Lower Body Dressing(FIM): 3 (not met) Lower Body Dressing (QC): 3 (not met) On/Off Footwear (QC): 3 (not met) Toileting(FIM): 3 (not met) Toileting Hygiene (QC): 3 (not met) Toilet/Commode Transfer(FIM): 4 (not met) Shower Transfer(FIM): 3 Additional Goals: 1-Demonstrate ADL Tasks, 2-Verbalize Understanding, 3- ImproveStrength/Sarah 1=Demonstrate adherence to instructed precautions during ADL tasks. 2=Patient will verbalize/demonstrate understanding of assistive devices/ modifications for ADL. 3=Patient will improve strength/tolerance for activity to enable patient to perform ADL's. OT Education/Plan Problem List/Assessment Assessment: Decreased Activ Tolerance, Decreased Safety Aware, Decreased UE Strength, Impaired Coordination, Impaired Funct Balance, Impaired I ADL's, Impaired Self-Care Skills, Restricted Funct UE ROM, Visual-Perceptual Deficit Pt admitted to ARU following CVA with left side deficits. Pt currently dependent for transfers and dressing. Pt demonstrates left neglect. Pt to benefit from skilled OT intervention for ADL training, transfers, strengthening , adaptive equipment training as needed, and safety education to increase level of function and allow safe discharge plan. Discharge Recommendations Plan/Recommendations: Continue POC Treatment Plan/Plan of Care Patient would benefit from OT for education, treatment and training to promote independence in ADL's, mobility, safety and/or upper extremity function for ADL' s. Plan of Care: ADL Retraining, Functional Mobility, Group Exercise/Act as Ind, UE Funct Exercise/Act, UE Neuromus Re-Ed/Coord, Visual/Perceptual Retrain Treatment Duration: May 31, 2018 Frequency: At least 5 of 7 days/Wk (IRF) Estimated Hrs Per Day: 1.5 hours per day Agreement: Yes Rehab Potential: Fair Time/GCodes Start Time: 11:10 Stop Time: 12:00 Total Time Billed (hr/min): 50 Billed Treatment Time 1 visit-ADL 3 (50 min) SAMMI BELL May 17, 2018 12:34
--- NOTE | 2018-05-17 12:40 | NUR ---
VOIDED 125 CC, THEN PVR BLADDER SCAN SHOWED 9 CC.
--- NOTE | 2018-05-17 16:07 | NUR ---
CUPROUS CHLORIDE HELPER faxed updated clinical information and team conference summary reviewed to home insurance agent, Jessica. Per therapy report and documentation, patient has made very little progress within the last week. management manager to evaluate for continued stay; however, CUPROUS CHLORIDE HELPER has anticipated denial for further days. CUPROUS CHLORIDE HELPER has reached out to [facility] to inquire about determination for placement. CUPROUS CHLORIDE HELPER unable to reach marketing outreach coordinator; however, will reach out again tomorrow following insurance determination. CUPROUS CHLORIDE HELPER provided update to patient's daughter regarding insurance status.
[2018-05-17] MEDS: RIVAROXABAN 15 MG TABLET (XARELTO) PO SCH (16:33)
[2018-05-17 17:35] VITALS: BP 102/67
[2018-05-17 18:01] LABS: MEAN PLATELET VOLUME 10.5 FL (7.4-10.4); RED CELL DISTRIBUTION WIDTH 15.5 % (10.0-14.5)
[2018-05-17 18:15] VITALS: BP 105/58
--- NOTE | 2018-05-17 18:15 | NUR ---
DR. MARTINEZ WAS INFORMED OF BP 102/67 AND HR 116. CBC ORDERED. CBC RESULTS CALLED TO HIM AND INFORMED BP NOW 105/58 AND HR 65. HEART RATE AUSCULTATED BOTH TIMES AND IRREGULAR. APPEARS TO BE HAVING TACHY EPISODES AT TIMES. NO NEW ORDERS.
[2018-05-17] MEDS: TAMSULOSIN 0.4 MG (FLOMAX) CAP PO SCH (18:24)
[2018-05-17] MEDS: DICLOFENAC 1% GEL 100 GM (VOLTAREN) TUBE TOP PRN (18:24)
[2018-05-17] MEDS: HYDROcodone/APAP 5 MG/325 MG (LORTAB) TAB PO PRN (19:51)
[2018-05-17] MEDS: ATORVASTATIN 20 MG (LIPITOR) TABLET PO SCH (20:22)
[2018-05-18] MEDS: HYDROcodone/APAP 5 MG/325 MG (LORTAB) TAB PO PRN ×3 (00:12→13:22)
[2018-05-18] MEDS: BETHANECHOL 25 MG (URECHOLINE) TAB PO SCH ×2 (05:56→11:42)
[2018-05-18 06:00] VITALS: BP 130/73
--- NOTE | 2018-05-18 06:00 | NUR ---
Call light on, upon arrival, pt is teary and states "why can I move my leg, why can I get off the bed". Attempt to reorient. Neuro check at this time reveals: Pt unable to recall name, date of , situation, or place. She responds questions with "I don't know". However, the pt is able to recall how to use the BSC and how to use the call light. No changes on previous CVA deficits, PERRL, denies any pain. Vitals: BP 130/73, HR 78, O2sat 94% ra, 18 rpm, temp 97.2. Dr. You notified, new order to obtain in/out straight cath UA.
[2018-05-18 07:13] LABS: BILIRUBIN,URINE NEGATIVE (NEGATIVE); CLARITY,URINE CLEAR; COLOR,URINE YELLOW; GLUCOSE, URINE (UA) NEGATIVE (NEGATIVE); KETONES,URINE NEGATIVE (NEGATIVE); LEUKOCYTE ESTERASE ,URINE NEGATIVE (NEGATIVE); NITRITE,URINE NEGATIVE (NEGATIVE); PH,URINE 6.5 (5-9); PROTEIN,URINE NEGATIVE (NEGATIVE); UROBILINOGEN,URINE NORMAL (NORMAL)
[2018-05-18 07:21] LABS: BACTERIA,URINE NEGATIVE /HPF; WBC,URINE RARE /HPF
--- NOTE | 2018-05-18 07:45 | NUR ---
Upon visiting w pt, pt voices that she remembers this RN from taking care of her previously. States name, & birthday correctly. Pt declines offer to assist w ordering breakfast, states she's not hungry.
--- NOTE | 2018-05-18 08:11 | Cardiology Progress Note ---
Subjective Date Seen by Provider: May 18, 2018 Time Seen by Provider: 08:11 Subjective/Events-last exam Patient is sitting up in bed, no new complaints. Objective-Cardiology Exam Last Set of Vital Signs Vital Signs 05/18/18 06:00 Temp 97.2 Pulse 78 Resp 18 B/P (MAP) 130/73 (92) Pulse Ox 94 O2 Delivery Room Air Capillary Refill : I&O Intake and Output 05/18/18 00:00 Intake Total 1440 ml Output Total 1550 ml Balance -110 ml Intake Oral 1440 ml Output Urine Total 1550 ml Bladder Scan Volume Amount 244 ml 9 ml # Voids 1 # Bowel Movements 1 General: Alert, Oriented X3, Cooperative HEENT: Atraumatic, PERRLA Neck: Supple, No JVD, No Thyromegaly Lungs: Clear to Auscultation, Normal Air Movement Heart: Regular Rate, Normal S1, Normal S2, No Murmurs Abdomen: Normal Bowel Sounds, Soft, No Tenderness, No Hepatosplenomegaly, No Masses Extremities: No Clubbing, No Cyanosis, No Edema, Normal Pulses, No Tenderness/ Swelling Skin: No Rashes, No Breakdown, No Significant Lesion Neuro: Normal Speech, Sensation Intact, Cranial Nerves 3-12 NL, Other (left sided weakness) Psych/Mental Status: Mental Status NL, Other (flat affect) Results Lab Laboratory Tests 05/17/18 17:46 A/P-Cardiology Admission Diagnosis CVA HTN HLP CRI Assessment/Plan 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 History of one episode of short atrial fibrillation on her loop recorder,no recent episode, maintained on Xarelto Chronic renal insufficiency, chronic kidney disease with history of single kidney, has been followed by Dr. Jaime. Continue to monitor renal function Hypertension, controlled, continue to monitor blood pressure. Hyperlipidemia, monitor lipids Intermediate metabolizer for Plavix History of syncope, no further syncopal episodes were reported Osteoarthritis, rheumatoid arthritis, history of fibromyalgia, history of depression and elevated LPa Depression- on Wellbutrin Clinical Quality Measures DVT/VTE Risk/Contraindication: Risk Factor Score Per Nursin RFS Level Per Nursing on Admit: 4+=Very High DAPHNIE FORREST May 18, 2018 08:11
[2018-05-18] MEDS ORDERED: ALPR0.254 PO (08:27)
[2018-05-18] MEDS ORDERED: TRAM50TA2 PO (08:27)
[2018-05-18] MEDS ORDERED: ACHD5005 PO (08:27)
[2018-05-18] MEDS ORDERED: LACT20SO2 PO (08:27)
[2018-05-18] MEDS ORDERED: METO-395 PO (08:27)
[2018-05-18] MEDS ORDERED: BETH25TA PO (08:27)
[2018-05-18] MEDS ORDERED: BUPR150T14 PO (08:27)
[2018-05-18] MEDS ORDERED: TAMS0.4C98 PO (08:27)
[2018-05-18] MEDS ORDERED: DICL100G18 TOP (08:27)
--- NOTE | 2018-05-18 08:29 | Discharge Inst-Skilled Nursing ---
Discharge Inst-Skilled NF Patient Instructions Patient Problems: CVA w/left sided weakness and neglect PAF HTN Urinary retention Goal: Regain independent living skills Consult/Follow Up/Orders Follow Up Appt.: [facility] for NH rounds Skilled NF Admit to: [facility] Certification ([facility]) I certify that SNF services are required to be given on an inpatient basis because of the above named patient's need for group home care on a continuing basis for the conditions(s) for which he/she was receiving inpatient hospital services prior to his/her transfer to the SNF. Snf Facility Order: Nursing Services, Devops Engineer-Evaluate & Treat, Physical Therapy-Evaluate & Treat, Speech Language-Evaluate & Treat Oxygen Delivery Method: Room Air Discharge Diet: No Restrictions Daily Activity as Tolerated: Yes New & Resume Previous Orders Lindsay You May 18, 2018 08:28 LINDSAY YOU DO May 18, 2018 08:29
--- NOTE | 2018-05-18 08:30 | Discharge Summary ---
Diagnosis/Chief Complaint Date of Admission May 03, 2018 at 11:30 Date of Discharge Discharge Date: May 18, 2018 Discharge Diagnosis Assessment: Devastating CVA w/left sided flaccidity PAF Anticoagulation chronic use even before CVA Severe depression received treatment with counselor and increased meds and now doing relatively well Anxiety hx Former smoker HTN New bladder incontinence since CVA but now improved with Urology management CRI creat 1.8 last check now baseline 1.6 Urinary retention now resolved and catheter DC maintained on Urecholine Neck pain Tachycardia yesterday Cardiology notified and will download the loop recorder Plan: Intensive therapies to continue at [facility] Maintain the increase of Wellbutrin Psych consultation for severe depression was appreciated Check labs adrian creatinine periodically Appreciate Dr Aponte following the patient Overall prognosis dependent on her ability to maintain motivation Urinary retention is managed by Dr Mendoza and doing well on Urecholine Diclofenac gel prn along with K-pad Discharge Summary Discharge Physical Examination Allergies: Coded Allergies: No Known Drug Allergies (Verified , 09/08/12) Vitals & I&Os Vital Signs Date Time Temp Pulse Resp B/P (MAP) Pulse Ox O2 Delivery O2 Flow Rate FiO2 05/18/18 08:55 97.6 95 20 116/81 (93) 100 Room Air Hospital Course Labs (last 24 hrs) Laboratory Tests 05/03/18 11:30: Lab Scanned Report Referred Lab Report 05/04/18 08:55: White Blood Count 11.6H, Red Blood Count 4.22L, Hemoglobin 10.9L, Hematocrit 36 , Mean Corpuscular Volume 86, Mean Corpuscular Hemoglobin 26, Mean Corpuscular Hemoglobin Concent 30L, Red Cell Distribution Width 14.8H, Platelet Count 168, Mean Platelet Volume 10.6H, Neutrophils (%) (Auto) 80H, Lymphocytes (%) (Auto) 11L, Monocytes (%) (Auto) 8, Eosinophils (%) (Auto) 1, Basophils (%) (Auto) 0, Neutrophils # (Auto) 9.2H, Lymphocytes # (Auto) 1.2, Monocytes # (Auto) 0.9, Eosinophils # (Auto) 0.2, Basophils # (Auto) 0.0, Sodium Level 138, Potassium Level 4.5, Chloride Level 108H, Carbon Dioxide Level 23, Anion Gap 7, Blood Urea Nitrogen 29H, Creatinine 1.44H, Estimat Glomerular Filtration Rate 36, BUN/ Creatinine Ratio 20, Glucose Level 152H, Calcium Level 10.3H, Corrected Calcium 10.4H, Total Bilirubin 0.4, Aspartate Amino Transf (AST/SGOT) 23, Alanine Aminotransferase (ALT/SGPT) 16, Alkaline Phosphatase 141H, Total Protein 6.7, Albumin 3.9 05/07/18 06:00: White Blood Count 9.1, Red Blood Count 3.93L, Hemoglobin 10.2L, Hematocrit 34L, Mean Corpuscular Volume 87, Mean Corpuscular Hemoglobin 26, Mean Corpuscular Hemoglobin Concent 30L, Red Cell Distribution Width 15.1H, Platelet Count 158, Mean Platelet Volume 10.7H, Neutrophils (%) (Auto) 69, Lymphocytes (%) (Auto) 18 , Monocytes (%) (Auto) 11, Eosinophils (%) (Auto) 2, Basophils (%) (Auto) 0, Neutrophils # (Auto) 6.3, Lymphocytes # (Auto) 1.6, Monocytes # (Auto) 1.0, Eosinophils # (Auto) 0.2, Basophils # (Auto) 0.0, Sodium Level 139, Potassium Level 4.9, Chloride Level 108H, Carbon Dioxide Level 22, Anion Gap 9, Blood Urea Nitrogen 32H, Creatinine 1.47H, Estimat Glomerular Filtration Rate 35, BUN/ Creatinine Ratio 22, Glucose Level 93, Calcium Level 10.0, Corrected Calcium 10.4H, Total Bilirubin 0.3, Aspartate Amino Transf (AST/SGOT) 27, Alanine Aminotransferase (ALT/SGPT) 16, Alkaline Phosphatase 126, Total Protein 6.1L, Albumin 3.5 05/07/18 20:56: Glucometer 108 05/09/18 11:40: Glucometer 126H 05/15/18 04:20: White Blood Count 6.0, Red Blood Count 4.14L, Hemoglobin 10.6L, Hematocrit 36, Mean Corpuscular Volume 86, Mean Corpuscular Hemoglobin 26, Mean Corpuscular Hemoglobin Concent 30L, Red Cell Distribution Width 15.1H, Platelet Count 183, Mean Platelet Volume 10.0, Neutrophils (%) (Auto) 64, Lymphocytes (%) (Auto) 25 , Monocytes (%) (Auto) 8, Eosinophils (%) (Auto) 2, Basophils (%) (Auto) 0, Neutrophils # (Auto) 3.8, Lymphocytes # (Auto) 1.5, Monocytes # (Auto) 0.5, Eosinophils # (Auto) 0.1, Basophils # (Auto) 0.0, Sodium Level 142, Potassium Level 4.6, Chloride Level 110H, Carbon Dioxide Level 23, Anion Gap 9, Blood Urea Nitrogen 32H, Creatinine 1.61H, Estimat Glomerular Filtration Rate 31, BUN/ Creatinine Ratio 20, Glucose Level 97, Calcium Level 10.1, Corrected Calcium 10.5H, Total Bilirubin 0.4, Aspartate Amino Transf (AST/SGOT) 19, Alanine Aminotransferase (ALT/SGPT) 15, Alkaline Phosphatase 127, Total Protein 6.1L, Albumin 3.5 05/17/18 17:46: White Blood Count 7.0, Red Blood Count 3.88L, Hemoglobin 10.0L, Hematocrit 34L, Mean Corpuscular Volume 87, Mean Corpuscular Hemoglobin 26, Mean Corpuscular Hemoglobin Concent 30L, Red Cell Distribution Width 15.5H, Platelet Count 173, Mean Platelet Volume 10.5H 05/18/18 07:05: Urine Color YELLOW, Urine Clarity CLEAR, Urine pH 6.5, Urine Specific [place] 1.010L, Urine Protein NEGATIVE, Urine Glucose (UA) NEGATIVE, Urine Ketones NEGATIVE, Urine Nitrite NEGATIVE, Urine Bilirubin NEGATIVE, Urine Urobilinogen NORMAL, Urine Leukocyte Esterase NEGATIVE, Urine RBC (Auto) NEGATIVE, Urine RBC NONE, Urine WBC RARE, Urine Crystals NONE, Urine Bacteria NEGATIVE, Urine Casts NONE, Urine Mucus NEGATIVE, Urine Culture Indicated NO 05/18/18 08:30: White Blood Count 6.6, Red Blood Count 4.21L, Hemoglobin 10.7L, Hematocrit 36, Mean Corpuscular Volume 85, Mean Corpuscular Hemoglobin 25, Mean Corpuscular Hemoglobin Concent 30L, Red Cell Distribution Width 15.4H, Platelet Count 176, Mean Platelet Volume 10.4, Neutrophils (%) (Auto) 73, Lymphocytes (%) (Auto) 17 , Monocytes (%) (Auto) 8, Eosinophils (%) (Auto) 2, Basophils (%) (Auto) 1, Neutrophils # (Auto) 4.8, Lymphocytes # (Auto) 1.1, Monocytes # (Auto) 0.6, Eosinophils # (Auto) 0.1, Basophils # (Auto) 0.0, Sodium Level 141, Potassium Level 4.5, Chloride Level 109H, Carbon Dioxide Level 22, Anion Gap 10, Blood Urea Nitrogen 22H, Creatinine 1.31H, Estimat Glomerular Filtration Rate 40, BUN/ Creatinine Ratio 17, Glucose Level 115H, Calcium Level 10.4H, Corrected Calcium 10.5H, Total Bilirubin 0.5, Aspartate Amino Transf (AST/SGOT) 24, Alanine Aminotransferase (ALT/SGPT) 15, Alkaline Phosphatase 135, Total Protein 6.6, Albumin 3.9 Microbiology 05/07/18 Urine Culture - Final, Complete Escherichia coli Pending Labs Microbiology Date/Time Source Procedure Growth Status 05/07/18 20:15 Urine Indwelling Cath ([facility]) Urine Culture - Final Escherichia coli Complete Laboratory Tests 05/03/18 11:30: Lab Scanned Report Referred Lab Report 05/04/18 08:55: White Blood Count 11.6, Red Blood Count 4.22, Hemoglobin 10.9, Hematocrit 36, Mean Corpuscular Volume 86, Mean Corpuscular Hemoglobin 26, Mean Corpuscular Hemoglobin Concent 30, Red Cell Distribution Width 14.8, Platelet Count 168, Mean Platelet Volume 10.6, Neutrophils (%) (Auto) 80, Lymphocytes (%) (Auto) 11 , Monocytes (%) (Auto) 8, Eosinophils (%) (Auto) 1, Basophils (%) (Auto) 0, Neutrophils # (Auto) 9.2, Lymphocytes # (Auto) 1.2, Monocytes # (Auto) 0.9, Eosinophils # (Auto) 0.2, Basophils # (Auto) 0.0, Sodium Level 138, Potassium Level 4.5, Chloride Level 108, Carbon Dioxide Level 23, Anion Gap 7, Blood Urea Nitrogen 29, Creatinine 1.44, Estimat Glomerular Filtration Rate 36, BUN/ Creatinine Ratio 20, Glucose Level 152, Calcium Level 10.3, Corrected Calcium 10.4, Total Bilirubin 0.4, Aspartate Amino Transf (AST/SGOT) 23, Alanine Aminotransferase (ALT/SGPT) 16, Alkaline Phosphatase 141, Total Protein 6.7, Albumin 3.9 05/07/18 06:00: White Blood Count 9.1, Red Blood Count 3.93, Hemoglobin 10.2, Hematocrit 34, Mean Corpuscular Volume 87, Mean Corpuscular Hemoglobin 26, Mean Corpuscular Hemoglobin Concent 30, Red Cell Distribution Width 15.1, Platelet Count 158, Mean Platelet Volume 10.7, Neutrophils (%) (Auto) 69, Lymphocytes (%) (Auto) 18 , Monocytes (%) (Auto) 11, Eosinophils (%) (Auto) 2, Basophils (%) (Auto) 0, Neutrophils # (Auto) 6.3, Lymphocytes # (Auto) 1.6, Monocytes # (Auto) 1.0, Eosinophils # (Auto) 0.2, Basophils # (Auto) 0.0, Sodium Level 139, Potassium Level 4.9, Chloride Level 108, Carbon Dioxide Level 22, Anion Gap 9, Blood Urea Nitrogen 32, Creatinine 1.47, Estimat Glomerular Filtration Rate 35, BUN/ Creatinine Ratio 22, Glucose Level 93, Calcium Level 10.0, Corrected Calcium 10.4, Total Bilirubin 0.3, Aspartate Amino Transf (AST/SGOT) 27, Alanine Aminotransferase (ALT/SGPT) 16, Alkaline Phosphatase 126, Total Protein 6.1, Albumin 3.5 05/07/18 20:56: Glucometer 108 05/09/18 11:40: Glucometer 126 05/15/18 04:20: White Blood Count 6.0, Red Blood Count 4.14, Hemoglobin 10.6, Hematocrit 36, Mean Corpuscular Volume 86, Mean Corpuscular Hemoglobin 26, Mean Corpuscular Hemoglobin Concent 30, Red Cell Distribution Width 15.1, Platelet Count 183, Mean Platelet Volume 10.0, Neutrophils (%) (Auto) 64, Lymphocytes (%) (Auto) 25 , Monocytes (%) (Auto) 8, Eosinophils (%) (Auto) 2, Basophils (%) (Auto) 0, Neutrophils # (Auto) 3.8, Lymphocytes # (Auto) 1.5, Monocytes # (Auto) 0.5, Eosinophils # (Auto) 0.1, Basophils # (Auto) 0.0, Sodium Level 142, Potassium Level 4.6, Chloride Level 110, Carbon Dioxide Level 23, Anion Gap 9, Blood Urea Nitrogen 32, Creatinine 1.61, Estimat Glomerular Filtration Rate 31, BUN/ Creatinine Ratio 20, Glucose Level 97, Calcium Level 10.1, Corrected Calcium 10.5, Total Bilirubin 0.4, Aspartate Amino Transf (AST/SGOT) 19, Alanine Aminotransferase (ALT/SGPT) 15, Alkaline Phosphatase 127, Total Protein 6.1, Albumin 3.5 05/17/18 17:46: White Blood Count 7.0, Red Blood Count 3.88, Hemoglobin 10.0, Hematocrit 34, Mean Corpuscular Volume 87, Mean Corpuscular Hemoglobin 26, Mean Corpuscular Hemoglobin Concent 30, Red Cell Distribution Width 15.5, Platelet Count 173, Mean Platelet Volume 10.5 05/18/18 07:05: Urine Color YELLOW, Urine Clarity CLEAR, Urine pH 6.5, Urine Specific [place] 1.010, Urine Protein NEGATIVE, Urine Glucose (UA) NEGATIVE, Urine Ketones NEGATIVE, Urine Nitrite NEGATIVE, Urine Bilirubin NEGATIVE, Urine Urobilinogen NORMAL, Urine Leukocyte Esterase NEGATIVE, Urine RBC (Auto) NEGATIVE, Urine RBC NONE, Urine WBC RARE, Urine Crystals NONE, Urine Bacteria NEGATIVE, Urine Casts NONE, Urine Mucus NEGATIVE, Urine Culture Indicated NO 05/18/18 08:30: White Blood Count 6.6, Red Blood Count 4.21, Hemoglobin 10.7, Hematocrit 36, Mean Corpuscular Volume 85, Mean Corpuscular Hemoglobin 25, Mean Corpuscular Hemoglobin Concent 30, Red Cell Distribution Width 15.4, Platelet Count 176, Mean Platelet Volume 10.4, Neutrophils (%) (Auto) 73, Lymphocytes (%) (Auto) 17 , Monocytes (%) (Auto) 8, Eosinophils (%) (Auto) 2, Basophils (%) (Auto) 1, Neutrophils # (Auto) 4.8, Lymphocytes # (Auto) 1.1, Monocytes # (Auto) 0.6, Eosinophils # (Auto) 0.1, Basophils # (Auto) 0.0, Sodium Level 141, Potassium Level 4.5, Chloride Level 109, Carbon Dioxide Level 22, Anion Gap 10, Blood Urea Nitrogen 22, Creatinine 1.31, Estimat Glomerular Filtration Rate 40, BUN/ Creatinine Ratio 17, Glucose Level 115, Calcium Level 10.4, Corrected Calcium 10.5, Total Bilirubin 0.5, Aspartate Amino Transf (AST/SGOT) 24, Alanine Aminotransferase (ALT/SGPT) 15, Alkaline Phosphatase 135, Total Protein 6.6, Albumin 3.9 Discharge Home Medications: Active Scripts Active Lactulose 20 Gm/30 Ml Solution 10 Gm PO BID 60 Days Alprazolam 0.25 Mg Tablet 0.25 Mg PO Q8H PRN Bupropion HCl Sr (Bupropion HCl) 150 Mg Tablet.er 150 Mg PO DAILY 60 Days Hydrocodone/Acetaminophen 5/325mg Tablet (Acetaminophen/Hydrocodone Bitart) 1 Tab Tab 1 Tab PO Q4H PRN Voltaren (Diclofenac Sodium) 100 Gm Gel..gram. 0 Gm TOP QID PRN Metoprolol Succinate 100 Mg Tab.er.24h 100 Mg PO DAILY 60 Days Flomax (Tamsulosin HCl) 0.4 Mg Cap 0.4 Mg PO DAILY@1800 60 Days Bethanechol Chloride 25 Mg Tablet 25 Mg PO ACHS 60 Days Tramadol HCl 50 Mg Tablet 50 Mg PO QID PRN Aspirin EC (Aspirin) 81 Mg Tablet.dr 81 Mg PO DAILY 30 Days Baclofen 10 Mg Tablet 10 Mg PO TID PRN 30 Days Tizanidine HCl 4 Mg Tablet 4 Mg PO QID PRN 30 Days Reported Magnesium (Magnesium Oxide) 400 Mg Tablet 400 Mg PO BID Xarelto (Rivaroxaban) 20 Mg Tablet 20 Mg PO 1800 Brimonidine Tartrate 5 Ml Btl 1 Drop OU BID Latanoprost 2.5 Ml Drops 1 Drop OU HS Gabapentin 300 Mg Capsule 300 Mg PO BID Atorvastatin Calcium 20 Mg Tablet 20 Mg PO HS Pantoprazole Sodium 40 Mg Tablet.dr 40 Mg PO DAILY Pentoxifylline 400 Mg Tablet.er 400 Mg PO DAILY Amlodipine Besylate 5 Mg Tablet 5 Mg PO HS Instructions to patient/family Please see electronic discharge instructions given to patient. Diagnosis/Problems Diagnosis/Problems (1) Cerebrovascular accident (CVA) with left hemiparesis Status: Acute (2) CVA, old, facial weakness Status: Chronic (3) Anticoagulant long-term use Status: Chronic (4) Hypertension Status: Chronic (5) Paroxysmal atrial fibrillation Status: Chronic (6) Incontinence of urine Status: Acute (7) Hyperlipidemia Status: Chronic (8) Depression Status: Acute (9) Back pain Status: Chronic (10) Urinary retention Clinical Quality Measures DVT/VTE Risk/Contraindication: Risk Factor Score Per Nursin RFS Level Per Nursing on Admit: 4+=Very High SANDY WILLIS DO May 18, 2018 08:30
--- NOTE | 2018-05-18 08:39 | Cardiology Progress Note ---
Subjective Date Seen by Provider: May 18, 2018 Time Seen by Provider: 08:38 Subjective/Events-last exam Patient is in bed, heart rate is better, no new complaint Review of Systems General: No Chills, No Night Sweats, No Fatigue, No Malaise, No Appetite, No Other HEENT: No Head Aches, No Visual Changes, No Eye Pain, No Ear Pain, No Dysphasia , No Sinus Congestion, No Post Nasal Drip, No Sore Throat, No Other Pulmonary: No Dyspnea, No Cough, No Pleuritic Chest Pain, No Other Cardiovascular: No: Chest Pain, Palpitations, Orthopnea, Paroxysmal Noc. Dyspnea, Edema, Lt Headedness, Other Objective-Cardiology Exam Last Set of Vital Signs Vital Signs 05/18/18 06:00 Temp 97.2 Pulse 78 Resp 18 B/P (MAP) 130/73 (92) Pulse Ox 94 O2 Delivery Room Air Capillary Refill : I&O Intake and Output 05/18/18 00:00 Intake Total 1440 ml Output Total 1550 ml Balance -110 ml Intake Oral 1440 ml Output Urine Total 1550 ml Bladder Scan Volume Amount 244 ml 9 ml # Voids 1 # Bowel Movements 1 General: Alert, Oriented X3, Cooperative HEENT: Atraumatic, PERRLA Neck: Supple, No JVD, No Thyromegaly Lungs: Clear to Auscultation, Normal Air Movement Heart: Regular Rate, Normal S1, Normal S2, No Murmurs Abdomen: Normal Bowel Sounds, Soft, No Tenderness, No Hepatosplenomegaly, No Masses Extremities: No Clubbing, No Cyanosis, No Edema, Normal Pulses, No Tenderness/ Swelling Skin: No Rashes, No Breakdown, No Significant Lesion Neuro: Normal Speech, Sensation Intact, Cranial Nerves 3-12 NL, Other (left sided weakness) Psych/Mental Status: Mental Status NL, Other (flat affect) Results Lab Laboratory Tests 05/17/18 17:46 A/P-Cardiology Admission Diagnosis CVA HTN HLP CRI Assessment/Plan 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 Continue to monitor History of one episode of short atrial fibrillation on her loop recorder,no recent episode, maintained on Xarelto Chronic renal insufficiency, chronic kidney disease with history of single kidney, has been followed by Dr. Jaime. Continue to monitor renal function Hypertension, controlled, continue to monitor blood pressure. Hyperlipidemia, monitor lipids Intermediate metabolizer for Plavix History of syncope, no further syncopal episodes were reported Osteoarthritis, rheumatoid arthritis, history of fibromyalgia, history of depression and elevated LPa Depression- on Wellbutrin Clinical Quality Measures DVT/VTE Risk/Contraindication: Risk Factor Score Per Nursin RFS Level Per Nursing on Admit: 4+=Very High DOMI MARTINEZ MD May 18, 2018 08:39
[2018-05-18 08:47] LABS: BASOPHILS % (AUTO) 1 % (0-10); EOSINOPHILS # (AUTO) 0.1 10^3/uL (0.0-0.3); EOSINOPHILS % (AUTO) 2 % (0-10); HEMATOCRIT 36 % (35-52); HEMOGLOBIN 10.7 G/DL (11.5-16.0); LYMPHOCYTES # (AUTO) 1.1 X 10^3 (1.0-4.0); LYMPHOCYTES % (AUTO) 17 % (12-44); MEAN CORPUSCULAR HEMOGLOBIN 25 PG (25-34); MEAN CORPUSCULAR HGB CONC 30 G/DL (32-36); MEAN CORPUSCULAR VOLUME 85 FL (80-99); MEAN PLATELET VOLUME 10.4 FL (7.4-10.4); MONOCYTES # (AUTO) 0.6 X 10^3 (0.0-1.0); MONOCYTES % (AUTO) 8 % (0-12); NEUTROPHILS # (AUTO) 4.8 X 10^3 (1.8-7.8); NEUTROPHILS % (AUTO) 73 % (42-75); PLATELET COUNT 176 10^3/uL (130-400); RED CELL DISTRIBUTION WIDTH 15.4 % (10.0-14.5); WHITE BLOOD COUNT 6.6 10^3/uL (4.3-11.0)
[2018-05-18 08:55] VITALS: BP 116/81
[2018-05-18] MEDS: GABAPENTIN 300 MG (NEURONTIN) CAP PO SCH (08:57)
[2018-05-18] MEDS: PANTOPRAZOLE 40 MG (PROTONIX) TAB PO SCH (08:57)
[2018-05-18] MEDS: amLODIPine 5 MG (NORVASC) TAB PO SCH (08:57)
[2018-05-18] MEDS: LACTULOSE SYRUP 10GM/15ML (ENULOSE) 30ML UDC PO SCH (08:58)
[2018-05-18] MEDS: MAGNESIUM OXIDE (MAG-OX)400 MG TAB PO SCH (08:58)
[2018-05-18] MEDS: PENTOXIFYLLINE ER 400 MG (TRENtal) TAB PO SCH (08:58)
[2018-05-18] MEDS: buPROPion SR 150 MG (WELLBUTRIN SR) TAB PO SCH (08:58)
[2018-05-18] MEDS: ASPIRIN E.C. 81 MG (ECOTRIN) TAB PO SCH (08:58)
[2018-05-18 08:59] LABS: ALBUMIN 3.9 GM/DL (3.2-4.5); BILIRUBIN,TOTAL 0.5 MG/DL (0.1-1.0); CALCIUM 10.4 MG/DL (8.5-10.1); CREATININE SERUM 1.31 MG/DL (0.60-1.30); POTASSIUM 4.5 MMOL/L (3.6-5.0); TOTAL PROTEIN 6.6 GM/DL (6.4-8.2)
[2018-05-18] MEDS: POLYETHYLENE GLYCOL 17 GM (MIRALAX) PACK PO SCH (08:59)
[2018-05-18] MEDS: DICLOFENAC 1% GEL 100 GM (VOLTAREN) TUBE TOP PRN (08:59)
[2018-05-18] MEDS: SENNA W/DOCUSATE (SENOKOT S) TABLET PO SCH (08:59)
[2018-05-18] MEDS: LATANOPROST 0.005% (XALATAN) OPHTH SOLN 2.5 ML OU SCH (09:00)
[2018-05-18] MEDS: BRIMONIDINE 0.2% (ALPHAGAN) OPHTH SOLN 5 ML BTL OU SCH (09:00)
--- NOTE | 2018-05-18 09:22 | Speech Therapy Daily Note ---
Speech Daily Progress Note Subjective Date Seen by Provider: May 18, 2018 Time Seen by Provider: 00:15 Patient was laying in her bed resting when I arrived. She appeared with a flat affect and stated her doctor said she would be going to [facility] today. Objective Patient completed a few simple conversational tasks related to her discharge with minimal verbal cues. Assessment Assessment Current Status: Good Progress Treatment Plan Discontinue ST Communication Comprehension: 4 Expression: 3 Social Cognition Social Interaction: 3 Problem Solvin Memory: 3 Speech Short Term Goals Short Term Goals Short Term Goals 1) Patient will complete memory tasks for improving safety and independence with 90% or greater. 2) Patient will complete problem solving tasks for improving safety and independence with 90% or greater. Speech Spinning Machine Tender Goals Care Home Goals Patient will improve safety and independence for achieving highest potential level of function. Speech-Plan Patient/Family Goals Patient/Family Goals: Patient is planned for discharge this date to [facility]. Treatment Plan Speech Therapy Treatment Plan: Discontinue ST, Goals Met Patient appeared to be upset at going to a SNF for further rehab. Treatment Duration: May 18, 2018 Frequency: 5 times per week Estimated Hrs Per Day: .5 hour per day Rehab Potential: Fair Barriers to Learning: Patient has total left side neglect. Pt/Family Agrees to Plan: Yes Safety Risks/Education Teaching Recipient: Patient Teaching Methods: Discussion Response to Teaching: Verbalize Understanding Education Topics Provided: Safety when she arrives at the SNF. Time Speech Therapy Time In: 08:35 Speech Therapy Time Out: 08:50 Total Billed Time: 15 Billed Treatment Time 1, JAYCEE Gillespie May 18, 2018 09:22
--- NOTE | 2018-05-18 09:51 | PM&R Progress Note ---
Subjective HPI/CC On Admission Date Seen by Provider: May 18, 2018 Time Seen by Provider: 08:30 CC: Devastating CVA with left sided weakness HPI: This is a 73yoWF clinic patient of [facility] who was transferred from 4th floor after sustaining a devastating CVA w/left sided flaccidity. Patient had a h/o CVA with subtle right sided facial numbness in the past and placed on anticoagulation for PAF noted on REVEAL device placed by Dr Aponte but presented past the tPA window with left sided weakness after found in bed by family. She was seen by Dr Aponte and risk stratification was initiated. Carotid CTA was recommended but due to renal insufficiency that test could not be done. Currently patient is very depressed and will increase Wellbutrin dose and consult Behavioral Health to facilitate management of this new disability. Bowels are moving and catheter was DC and incontinence was noted on 4th floor. Subjective/Events-last exam Patient doing well today, visiting with ST Post-void residual is minimal so doing really well with that Bowel movement last night. Affect is much better and she is interacting much more and that has encouraged Cardiology service too Left neck is helped by Diclofenac gel and PT stretching and heating K-pad. NHP at [facility] at DC is planned. Heart rate a bit elevated this morning before Coreg and I notified Dr Aponte service and they will download the loop recorder in case we can capture PAF as the likely cause of the CVA but was on anticoagulation before CVA Objective Exam Vital Signs Vital Signs Date Time Temp Pulse Resp B/P (MAP) Pulse Ox O2 Delivery O2 Flow Rate FiO2 05/18/18 08:55 97.6 95 20 116/81 (93) 100 Room Air Capillary Refill : General Appearance: No Apparent Distress, WD/WN, Chronically ill, Obese HEENT: PERRL/EOMI, Normal ENT Inspection, Pharynx Normal, Moist Mucous Membranes, Other Neck: Full Range of Motion, Normal Inspection, Non Tender, Supple Respiratory: Chest Non Tender, Lungs Clear, Normal Breath Sounds, No Accessory Muscle Use, No Respiratory Distress Cardiovascular: Regular Rate, Rhythm, No Edema, No Gallop, No JVD, No Murmur, Tachycardia Gastrointestinal: Normal Bowel Sounds, No Organomegaly, No Pulsatile Mass, Non Tender, Soft Back: Normal Inspection, No CVA Tenderness, No Vertebral Tenderness Extremity: Normal Capillary Refill, Normal Inspection, Non Tender, No Calf Tenderness, No Pedal Edema, Other Neurologic/Psychiatric: Alert, Oriented x3, Depressed Affect (improved), Motor Weakness, Other Skin: Normal Color, Warm/Dry Lymphatic: No Adenopathy Results/Procedures Lab Laboratory Tests 05/17/18 17:46 05/18/18 08:30 Patient resulted labs reviewed. Assessment/Plan Assessment and Plan Assess & Plan/Chief Complaint Assessment: Devastating CVA w/left sided flaccidity PAF Anticoagulation chronic use even before CVA Severe depression received treatment with counselor and increased meds and now doing relatively well Anxiety hx Former smoker HTN New bladder incontinence since CVA but now improved with Urology management CRI creat 1.8 last check now baseline 1.6 Urinary retention now resolved and catheter DC maintained on Urecholine Neck pain Tachycardia today Cardiology notified and will download the loop recorder Plan: Intensive therapies to continue Maintain the increase of Wellbutrin Psych consultation for severe depression was appreciated Check labs adrian creatinine periodically Appreciate Dr Aponte following the patient Overall prognosis dependent on her ability to maintain motivation Urinary retention is managed by Dr Mendoza and doing well on Urecholine Diclofenac gel prn along with K-pad (1) Cerebrovascular accident (CVA) with left hemiparesis (2) CVA, old, facial weakness (3) Anticoagulant long-term use (4) Hypertension (5) Paroxysmal atrial fibrillation (6) Incontinence of urine (7) Hyperlipidemia (8) Depression (9) Back pain (10) Urinary retention Clinical Quality Measures DVT/VTE Risk/Contraindication: Risk Factor Score Per Nursin RFS Level Per Nursing on Admit: 4+=Very High SANDY WILLIS DO May 18, 2018 09:51
--- NOTE | 2018-05-18 10:16 | Physical Therapy Daily Note ---
PT Daily Note-Current Subjective Patient on commode pre tx, agrees to PT, has 8/10 pain in low back, nurse aware of pain. Will be co-treating with OT due to poor patient endurance and activity tolerance, poor strength and sitting and standing balance. Patient needs dressed upper and lower. Appearance Patient in bed post tx with nurse call, phone, tray, all needs met. Mental Status Patient Orientation: Person, Place, Situation Transfers Therapy Code Descriptions/Definitions Functional [place] Measure: 0=Not Assessed/NA 4=Minimal Assistance 1=Total Assistance 5=Supervision or Setup 2=Maximal Assistance 6=Modified [place] 3=Moderate Assistance 7=Complete [place] Therapy Quality Codes: 6 Independent with activity with or without an assistive device 5 Patient requires set up or clean up by helper. Patient completes activity by themselves 4 Supervision or touching assist (CGA). [place] provide cues , steadying assist 3 The helper provides less than half the effort to complete the activity 2 The helper provides more than half the effort to complete the activity 1 Dependent. The helper does all the effort to complete an activity 7 Patient refused to complete or attempt activity 9 The patient did not perform the activity before the current illness or injury 88 Not attempted due to Medical conditions or safety concerns Transfers (B, C, W/C) (FIM): 3 Scootin Rollin Supine to/from Sit: 3 Sit to/from Stand: 3 Bed to/from Chair: 3 Patient practiced stand pivot transfers to each side x3, less resistance when transferring to the right side, needs cues for positioning, hand placement and safety. Weight Bearing Right Lower Extremity: Right Full Weight Bearing Left Lower Extremity: Left Full Weight Bearing Gait Training Gait (FIM): 1 Distance: 8'x3 Gait Level of Assist: 3 Gait Persons Needed: 1 Gait Assistive Device: Parallel Bars Needs assist with advancement of left foot and weight shifting, cues to stand strait. Wheelchair Training Does the Pt Use a Wheelchair?: Yes Wheelchair (FIM): 2 Distance: 100'x2 Wheelchair Level of Assist: 4 Type of Wheelchair: Manual Exercises Supine Ex: Bridging Supine Reps: 20 LLE stretching in all planes, AAROM supine hip flexion and extension (patient could assist very little) Treatments bed mobility and transfers, ambulation, wheelchair mobility, functional strengthening, dressing, stretching. PT worked on transfers, LLE strengthening and stretching, wheelchair mobility, and ambulation, OT worked on dressing, UE positioning during transfers and ambulation. Assessment Current Status: Fair Progress improved transfers to the right side PT Short Term Goals Short Term Goals Time Frame: May 10, 2018 Gait (FIM): 0 Distance (FIM): 0=does not occure Wheelchair (FIM): 1 Wheelchair distance (FIM): 1=up to 49 ft Wheelchair Distance: 25' Wheelchair Level of Assist: 3 PT Fdc Goals Metaphysicist Goals PT Fdc Goals Time Frame: May 27, 2018 Transfers (B,C,W/C) (FIM): 3 Sit to Lying (QC): 2 Lying-Sitting on Side/Bed(QC): 2 Sit to Stand (QC): 2 Rollin Roll Left to Right (QC): 2 Chair/Qwn-my-Lhrqb Xfer(QC): 2 Car Transfer (QC): 2 Does the Patient Walk: No and Walking Goal IS indicated Gait (FIM): 1 Gait distance (FIM): 1=up to 49 ft Distance: 10' Walk 10 feet (QC): 3 Gait Level of Assist: 3 Gait Assistive Device: Walker Jose Luis Wheelchair (FIM): 2 Wheelchair distance (FIM): 6=713-10 ft Distance: 50' Wheelchair Level of Assist: 4 Wheel 50 feet with 2 turns (QC: 3 PT Plan Problem List Problem List: Activity Tolerance, Functional Strength, Safety, Balance, Gait, Transfer, Bed Mobility, ROM Treatment/Plan Treatment Plan: Continue Plan of Care Treatment Plan: Bed Mobility, Concurrent Therapy, Education, Functional Activity Sarah, Functional Strength, Group Therapy, Gait, Safety, Therapeutic Exercise, Transfers Treatment Duration: May 27, 2018 Frequency: At least 5 of 7 days/Wk (IRF) Estimated Hrs Per Day: 1.5 hours per day Patient and/or Family Agrees t: Yes Safety Risks/Education Patient Education: Gait Training, Transfer Techniques, Correct Positioning, W/ C Management, Safety Issues Teaching Recipient: Patient Teaching Methods: Demonstration, Discussion Response to Teaching: Reinforcement Needed Time/GCodes Time In: 0900 Time Out: 1015 Total Billed Treatment Time: 75 Total Billed Treatment 1 visit GT 20' EX 15' WCH 15' FA 25' KATHRINE ODONNELL PT May 18, 2018 10:16
--- NOTE | 2018-05-18 10:30 | Occupational Ther Daily Note ---
OT Current Status-Daily Note Subjective Pt alert, sitting in w/c. Pt agrees to therapy. C/o back pain, did not rate, reported to nrsg. Mental Status/Objective Patient Orientation: Person, Place, Time, Situation Therapy Code Descriptions/Definitions Functional [place] Measure: 0=Not Assessed/NA 4=Minimal Assistance 1=Total Assistance 5=Supervision or Setup 2=Maximal Assistance 6=Modified [place] 3=Moderate Assistance 7=Complete [place] ADL-Treatment Co-treat with PT for skilled instructions and care due to decreased mobility, activity tolerance and functional instruction. PT worked on ambulation, transfers, dynamic sitting balance and LE PROM/stretching. OT worked on functional transfers, L UE wt bearing, dynamic sitting, dressing and L UE PROM/ stretching. Pt demonstrated min A-mod A for transfers with physical and verbal cues. Pt demonstrated progression with transfers today. Increased tone in L UE noted. Fingers fluttered one time during treatment with shldr flexion stretch. Pt continues to be min A with upper body dressing and dependent for lower body dressing. After therapy, pt lying in bed with call light/phone in reach. All needs met in room. Therapy Code Descriptions/Definitions Functional [place] Measure: 0=Not Assessed/NA 4=Minimal Assistance 1=Total Assistance 5=Supervision or Setup 2=Maximal Assistance 6=Modified [place] 3=Moderate Assistance 7=Complete [place] Therapy Quality Codes: 6 Independent with activity with or without an assistive device 5 Patient requires set up or clean up by helper. Patient completes activity by themselves 4 Supervision or touching assist (CGA). [place] provide cues , steadying assist 3 The helper provides less than half the effort to complete the activity 2 The helper provides more than half the effort to complete the activity 1 Dependent. The helper does all the effort to complete an activity 7 Patient refused to complete or attempt activity 9 The patient did not perform the activity before the current illness or injury 88 Not attempted due to Medical conditions or safety concerns OT Short Term Goals Short Term Goals Time Frame: May 10, 2018 Grooming(FIM): 4 Bathing(FIM): 2 Upper Body Dressing(FIM): 2 Lower Body Dressing(FIM): 2 Toileting(FIM): 2 Toilet/Commode Transfer(FIM): 2 Additional Short Term Goals: 1-Demonstrate ADL Tasks, 2-Verbalize Understanding , 3-ImproveStrength/Sarah 1=Demonstrate adherence to instructed precautions during ADL tasks. 2=Patient will verbalize/demonstrate understanding of assistive devices/ modifications for ADL. 3=Patient will improve strength/tolerance for activity to enable patient to perform ADL's. OT Retirement Goals Splicing Machine Operator Goals Time Frame: May 31, 2018 Eating (FIM): 5 (met) Eating (QC): 5 (met) Groomin (not met) Oral Hygiene (QC): 5 (not met) Bathing(FIM): 3 (met) Shower/Bathe Self (QC): 3 (met) Upper Body Dressing(FIM): 4 (me) Upper Body Dressing (QC): 4 (met) Lower Body Dressing(FIM): 3 (not met) Lower Body Dressing (QC): 3 (not met) On/Off Footwear (QC): 3 (not met) Toileting(FIM): 3 (not met) Toileting Hygiene (QC): 3 (not met) Toilet/Commode Transfer(FIM): 4 (not met) Shower Transfer(FIM): 3 Additional Goals: 1-Demonstrate ADL Tasks, 2-Verbalize Understanding, 3- ImproveStrength/Sarah 1=Demonstrate adherence to instructed precautions during ADL tasks. 2=Patient will verbalize/demonstrate understanding of assistive devices/ modifications for ADL. 3=Patient will improve strength/tolerance for activity to enable patient to perform ADL's. OT Education/Plan Problem List/Assessment Assessment: Decreased Activ Tolerance, Decreased Safety Aware, Decreased UE Strength, Impaired Cognition, Impaired Coordination, Impaired Funct Balance, Impaired Self-Care Skills, Restricted Funct UE ROM, Visual-Perceptual Deficit Pt admitted to ARU following CVA with left side deficits. Pt currently dependent for transfers and dressing. Pt demonstrates left neglect. Pt to benefit from skilled OT intervention for ADL training, transfers, strengthening , adaptive equipment training as needed, and safety education to increase level of function and allow safe discharge plan. Discharge Recommendations Plan/Recommendations: Continue POC Treatment Plan/Plan of Care Patient would benefit from OT for education, treatment and training to promote independence in ADL's, mobility, safety and/or upper extremity function for ADL' s. Plan of Care: ADL Retraining, Functional Mobility, Group Exercise/Act as Ind, UE Funct Exercise/Act, UE Neuromus Re-Ed/Coord, Visual/Perceptual Retrain Treatment Duration: May 31, 2018 Frequency: At least 5 of 7 days/Wk (IRF) Estimated Hrs Per Day: 1.5 hours per day Agreement: Yes Rehab Potential: Fair Time/GCodes Start Time: 09:00 Stop Time: 10:15 Total Time Billed (hr/min): 75 Billed Treatment Time 1 visit-ADL 1 (10 min) NM 4 (65 min) SAMMI BELL May 18, 2018 10:30
--- NOTE | 2018-05-18 11:51 | NUR ---
Dr. Mendoza in to see pt, states for pt to have a 4 week f/u appt w him. Cont. Urecholine & Flomax.
--- NOTE | 2018-05-18 12:43 | Discharge Summary ---
Diagnosis/Chief Complaint Date of Admission May 03, 2018 at 11:30 Date of Discharge Discharge Date: May 18, 2018 Discharge Diagnosis Assessment: Devastating CVA w/left sided flaccidity PAF Anticoagulation chronic use even before CVA Severe depression received treatment with counselor and increased meds and now doing relatively well Anxiety hx Former smoker HTN New bladder incontinence since CVA but now improved with Urology management CRI creat 1.8 last check now baseline 1.6 Urinary retention now resolved and catheter DC maintained on Urecholine Neck pain Tachycardia today Cardiology notified and will download the loop recorder Discharge Summary Discharge Physical Examination Allergies: Coded Allergies: No Known Drug Allergies (Verified , 09/08/12) Vitals & I&Os Vital Signs Date Time Temp Pulse Resp B/P (MAP) Pulse Ox O2 Delivery O2 Flow Rate FiO2 05/18/18 13:40 95 20 116/81 100 Room Air 05/18/18 08:55 97.6 Hospital Course Was the Problem List Reviewed?: Yes Hospital course: patient was admitted to IRF following a devastating stroke with left side weakness and left sided neglect. Patient had been followed by Dr Aponte for REVEAL device prior to stroke because she has had several strokes in the past resulting in only right sided facial weakness and had been maintained on anticoagulation but he added antiplatelet agent for additional protection from a recurrent stroke. Patient had difficulty with severe depression and PTSD following the fall after the stroke and remaining in her house without family noticing for a period of time. Psych consult was performed with optimistic prediction and Wellbutrin was increased. Patient participated in all therapies but had no return of function of the stroke deficit and was completely dependent on nursing staff for all ADL's. Urology was consulted and urinary retention resolved after pena cath and Urecholine initiation. Overall she has minimal improvement during IRF stay and was deemed stable for DC to [place] where she will remain permanently. Labs (last 24 hrs) Laboratory Tests 05/03/18 11:30: Lab Scanned Report Referred Lab Report 05/04/18 08:55: White Blood Count 11.6H, Red Blood Count 4.22L, Hemoglobin 10.9L, Hematocrit 36 , Mean Corpuscular Volume 86, Mean Corpuscular Hemoglobin 26, Mean Corpuscular Hemoglobin Concent 30L, Red Cell Distribution Width 14.8H, Platelet Count 168, Mean Platelet Volume 10.6H, Neutrophils (%) (Auto) 80H, Lymphocytes (%) (Auto) 11L, Monocytes (%) (Auto) 8, Eosinophils (%) (Auto) 1, Basophils (%) (Auto) 0, Neutrophils # (Auto) 9.2H, Lymphocytes # (Auto) 1.2, Monocytes # (Auto) 0.9, Eosinophils # (Auto) 0.2, Basophils # (Auto) 0.0, Sodium Level 138, Potassium Level 4.5, Chloride Level 108H, Carbon Dioxide Level 23, Anion Gap 7, Blood Urea Nitrogen 29H, Creatinine 1.44H, Estimat Glomerular Filtration Rate 36, BUN/ Creatinine Ratio 20, Glucose Level 152H, Calcium Level 10.3H, Corrected Calcium 10.4H, Total Bilirubin 0.4, Aspartate Amino Transf (AST/SGOT) 23, Alanine Aminotransferase (ALT/SGPT) 16, Alkaline Phosphatase 141H, Total Protein 6.7, Albumin 3.9 05/07/18 06:00: White Blood Count 9.1, Red Blood Count 3.93L, Hemoglobin 10.2L, Hematocrit 34L, Mean Corpuscular Volume 87, Mean Corpuscular Hemoglobin 26, Mean Corpuscular Hemoglobin Concent 30L, Red Cell Distribution Width 15.1H, Platelet Count 158, Mean Platelet Volume 10.7H, Neutrophils (%) (Auto) 69, Lymphocytes (%) (Auto) 18 , Monocytes (%) (Auto) 11, Eosinophils (%) (Auto) 2, Basophils (%) (Auto) 0, Neutrophils # (Auto) 6.3, Lymphocytes # (Auto) 1.6, Monocytes # (Auto) 1.0, Eosinophils # (Auto) 0.2, Basophils # (Auto) 0.0, Sodium Level 139, Potassium Level 4.9, Chloride Level 108H, Carbon Dioxide Level 22, Anion Gap 9, Blood Urea Nitrogen 32H, Creatinine 1.47H, Estimat Glomerular Filtration Rate 35, BUN/ Creatinine Ratio 22, Glucose Level 93, Calcium Level 10.0, Corrected Calcium 10.4H, Total Bilirubin 0.3, Aspartate Amino Transf (AST/SGOT) 27, Alanine Aminotransferase (ALT/SGPT) 16, Alkaline Phosphatase 126, Total Protein 6.1L, Albumin 3.5 05/07/18 20:56: Glucometer 108 05/09/18 11:40: Glucometer 126H 05/15/18 04:20: White Blood Count 6.0, Red Blood Count 4.14L, Hemoglobin 10.6L, Hematocrit 36, Mean Corpuscular Volume 86, Mean Corpuscular Hemoglobin 26, Mean Corpuscular Hemoglobin Concent 30L, Red Cell Distribution Width 15.1H, Platelet Count 183, Mean Platelet Volume 10.0, Neutrophils (%) (Auto) 64, Lymphocytes (%) (Auto) 25 , Monocytes (%) (Auto) 8, Eosinophils (%) (Auto) 2, Basophils (%) (Auto) 0, Neutrophils # (Auto) 3.8, Lymphocytes # (Auto) 1.5, Monocytes # (Auto) 0.5, Eosinophils # (Auto) 0.1, Basophils # (Auto) 0.0, Sodium Level 142, Potassium Level 4.6, Chloride Level 110H, Carbon Dioxide Level 23, Anion Gap 9, Blood Urea Nitrogen 32H, Creatinine 1.61H, Estimat Glomerular Filtration Rate 31, BUN/ Creatinine Ratio 20, Glucose Level 97, Calcium Level 10.1, Corrected Calcium 10.5H, Total Bilirubin 0.4, Aspartate Amino Transf (AST/SGOT) 19, Alanine Aminotransferase (ALT/SGPT) 15, Alkaline Phosphatase 127, Total Protein 6.1L, Albumin 3.5 05/17/18 17:46: White Blood Count 7.0, Red Blood Count 3.88L, Hemoglobin 10.0L, Hematocrit 34L, Mean Corpuscular Volume 87, Mean Corpuscular Hemoglobin 26, Mean Corpuscular Hemoglobin Concent 30L, Red Cell Distribution Width 15.5H, Platelet Count 173, Mean Platelet Volume 10.5H 05/18/18 07:05: Urine Color YELLOW, Urine Clarity CLEAR, Urine pH 6.5, Urine Specific [place] 1.010L, Urine Protein NEGATIVE, Urine Glucose (UA) NEGATIVE, Urine Ketones NEGATIVE, Urine Nitrite NEGATIVE, Urine Bilirubin NEGATIVE, Urine Urobilinogen NORMAL, Urine Leukocyte Esterase NEGATIVE, Urine RBC (Auto) NEGATIVE, Urine RBC NONE, Urine WBC RARE, Urine Crystals NONE, Urine Bacteria NEGATIVE, Urine Casts NONE, Urine Mucus NEGATIVE, Urine Culture Indicated NO 05/18/18 08:30: White Blood Count 6.6, Red Blood Count 4.21L, Hemoglobin 10.7L, Hematocrit 36, Mean Corpuscular Volume 85, Mean Corpuscular Hemoglobin 25, Mean Corpuscular Hemoglobin Concent 30L, Red Cell Distribution Width 15.4H, Platelet Count 176, Mean Platelet Volume 10.4, Neutrophils (%) (Auto) 73, Lymphocytes (%) (Auto) 17 , Monocytes (%) (Auto) 8, Eosinophils (%) (Auto) 2, Basophils (%) (Auto) 1, Neutrophils # (Auto) 4.8, Lymphocytes # (Auto) 1.1, Monocytes # (Auto) 0.6, Eosinophils # (Auto) 0.1, Basophils # (Auto) 0.0, Sodium Level 141, Potassium Level 4.5, Chloride Level 109H, Carbon Dioxide Level 22, Anion Gap 10, Blood Urea Nitrogen 22H, Creatinine 1.31H, Estimat Glomerular Filtration Rate 40, BUN/ Creatinine Ratio 17, Glucose Level 115H, Calcium Level 10.4H, Corrected Calcium 10.5H, Total Bilirubin 0.5, Aspartate Amino Transf (AST/SGOT) 24, Alanine Aminotransferase (ALT/SGPT) 15, Alkaline Phosphatase 135, Total Protein 6.6, Albumin 3.9 Microbiology 05/07/18 Urine Culture - Final, Complete Escherichia coli Pending Labs Microbiology Date/Time Source Procedure Growth Status 05/07/18 20:15 Urine Indwelling Cath (Mulcher Operator) Urine Culture - Final Escherichia coli Complete Laboratory Tests 05/03/18 11:30: Lab Scanned Report Referred Lab Report 05/04/18 08:55: White Blood Count 11.6, Red Blood Count 4.22, Hemoglobin 10.9, Hematocrit 36, Mean Corpuscular Volume 86, Mean Corpuscular Hemoglobin 26, Mean Corpuscular Hemoglobin Concent 30, Red Cell Distribution Width 14.8, Platelet Count 168, Mean Platelet Volume 10.6, Neutrophils (%) (Auto) 80, Lymphocytes (%) (Auto) 11 , Monocytes (%) (Auto) 8, Eosinophils (%) (Auto) 1, Basophils (%) (Auto) 0, Neutrophils # (Auto) 9.2, Lymphocytes # (Auto) 1.2, Monocytes # (Auto) 0.9, Eosinophils # (Auto) 0.2, Basophils # (Auto) 0.0, Sodium Level 138, Potassium Level 4.5, Chloride Level 108, Carbon Dioxide Level 23, Anion Gap 7, Blood Urea Nitrogen 29, Creatinine 1.44, Estimat Glomerular Filtration Rate 36, BUN/ Creatinine Ratio 20, Glucose Level 152, Calcium Level 10.3, Corrected Calcium 10.4, Total Bilirubin 0.4, Aspartate Amino Transf (AST/SGOT) 23, Alanine Aminotransferase (ALT/SGPT) 16, Alkaline Phosphatase 141, Total Protein 6.7, Albumin 3.9 05/07/18 06:00: White Blood Count 9.1, Red Blood Count 3.93, Hemoglobin 10.2, Hematocrit 34, Mean Corpuscular Volume 87, Mean Corpuscular Hemoglobin 26, Mean Corpuscular Hemoglobin Concent 30, Red Cell Distribution Width 15.1, Platelet Count 158, Mean Platelet Volume 10.7, Neutrophils (%) (Auto) 69, Lymphocytes (%) (Auto) 18 , Monocytes (%) (Auto) 11, Eosinophils (%) (Auto) 2, Basophils (%) (Auto) 0, Neutrophils # (Auto) 6.3, Lymphocytes # (Auto) 1.6, Monocytes # (Auto) 1.0, Eosinophils # (Auto) 0.2, Basophils # (Auto) 0.0, Sodium Level 139, Potassium Level 4.9, Chloride Level 108, Carbon Dioxide Level 22, Anion Gap 9, Blood Urea Nitrogen 32, Creatinine 1.47, Estimat Glomerular Filtration Rate 35, BUN/ Creatinine Ratio 22, Glucose Level 93, Calcium Level 10.0, Corrected Calcium 10.4, Total Bilirubin 0.3, Aspartate Amino Transf (AST/SGOT) 27, Alanine Aminotransferase (ALT/SGPT) 16, Alkaline Phosphatase 126, Total Protein 6.1, Albumin 3.5 05/07/18 20:56: Glucometer 108 05/09/18 11:40: Glucometer 126 05/15/18 04:20: White Blood Count 6.0, Red Blood Count 4.14, Hemoglobin 10.6, Hematocrit 36, Mean Corpuscular Volume 86, Mean Corpuscular Hemoglobin 26, Mean Corpuscular Hemoglobin Concent 30, Red Cell Distribution Width 15.1, Platelet Count 183, Mean Platelet Volume 10.0, Neutrophils (%) (Auto) 64, Lymphocytes (%) (Auto) 25 , Monocytes (%) (Auto) 8, Eosinophils (%) (Auto) 2, Basophils (%) (Auto) 0, Neutrophils # (Auto) 3.8, Lymphocytes # (Auto) 1.5, Monocytes # (Auto) 0.5, Eosinophils # (Auto) 0.1, Basophils # (Auto) 0.0, Sodium Level 142, Potassium Level 4.6, Chloride Level 110, Carbon Dioxide Level 23, Anion Gap 9, Blood Urea Nitrogen 32, Creatinine 1.61, Estimat Glomerular Filtration Rate 31, BUN/ Creatinine Ratio 20, Glucose Level 97, Calcium Level 10.1, Corrected Calcium 10.5, Total Bilirubin 0.4, Aspartate Amino Transf (AST/SGOT) 19, Alanine Aminotransferase (ALT/SGPT) 15, Alkaline Phosphatase 127, Total Protein 6.1, Albumin 3.5 05/17/18 17:46: White Blood Count 7.0, Red Blood Count 3.88, Hemoglobin 10.0, Hematocrit 34, Mean Corpuscular Volume 87, Mean Corpuscular Hemoglobin 26, Mean Corpuscular Hemoglobin Concent 30, Red Cell Distribution Width 15.5, Platelet Count 173, Mean Platelet Volume 10.5 05/18/18 07:05: Urine Color YELLOW, Urine Clarity CLEAR, Urine pH 6.5, Urine Specific [place] 1.010, Urine Protein NEGATIVE, Urine Glucose (UA) NEGATIVE, Urine Ketones NEGATIVE, Urine Nitrite NEGATIVE, Urine Bilirubin NEGATIVE, Urine Urobilinogen NORMAL, Urine Leukocyte Esterase NEGATIVE, Urine RBC (Auto) NEGATIVE, Urine RBC NONE, Urine WBC RARE, Urine Crystals NONE, Urine Bacteria NEGATIVE, Urine Casts NONE, Urine Mucus NEGATIVE, Urine Culture Indicated NO 05/18/18 08:30: White Blood Count 6.6, Red Blood Count 4.21, Hemoglobin 10.7, Hematocrit 36, Mean Corpuscular Volume 85, Mean Corpuscular Hemoglobin 25, Mean Corpuscular Hemoglobin Concent 30, Red Cell Distribution Width 15.4, Platelet Count 176, Mean Platelet Volume 10.4, Neutrophils (%) (Auto) 73, Lymphocytes (%) (Auto) 17 , Monocytes (%) (Auto) 8, Eosinophils (%) (Auto) 2, Basophils (%) (Auto) 1, Neutrophils # (Auto) 4.8, Lymphocytes # (Auto) 1.1, Monocytes # (Auto) 0.6, Eosinophils # (Auto) 0.1, Basophils # (Auto) 0.0, Sodium Level 141, Potassium Level 4.5, Chloride Level 109, Carbon Dioxide Level 22, Anion Gap 10, Blood Urea Nitrogen 22, Creatinine 1.31, Estimat Glomerular Filtration Rate 40, BUN/ Creatinine Ratio 17, Glucose Level 115, Calcium Level 10.4, Corrected Calcium 10.5, Total Bilirubin 0.5, Aspartate Amino Transf (AST/SGOT) 24, Alanine Aminotransferase (ALT/SGPT) 15, Alkaline Phosphatase 135, Total Protein 6.6, Albumin 3.9 Discussion & Recommendations Day of DC: Pt having odd symptoms with confusion but no change in her stroke residual Vitals remain stable Pt appears to have some sort of somatic issue currently Labs checked stat everything was normal except for creatinine was 1.3 UA checked an that was normal Overall feels like she can't eat or participate in therapy Doesn't wish to go to [facility] because her friends say that they don't give good service Will place preparation for approval for [facility] since that is the only retirement in [facility] and in my experience it is a very fine facility Discharge Home Medications: Active Scripts Active Lactulose 20 Gm/30 Ml Solution 10 Gm PO BID 60 Days Alprazolam 0.25 Mg Tablet 0.25 Mg PO Q8H PRN Bupropion HCl Sr (Bupropion HCl) 150 Mg Tablet.er 150 Mg PO DAILY 60 Days Hydrocodone/Acetaminophen 5/325mg Tablet (Acetaminophen/Hydrocodone Bitart) 1 Tab Tab 1 Tab PO Q4H PRN Voltaren (Diclofenac Sodium) 100 Gm Gel..gram. 0 Gm TOP QID PRN Metoprolol Succinate 100 Mg Tab.er.24h 100 Mg PO DAILY 60 Days Flomax (Tamsulosin HCl) 0.4 Mg Cap 0.4 Mg PO DAILY@1800 60 Days Bethanechol Chloride 25 Mg Tablet 25 Mg PO ACHS 60 Days Tramadol HCl 50 Mg Tablet 50 Mg PO QID PRN Aspirin EC (Aspirin) 81 Mg Tablet.dr 81 Mg PO DAILY 30 Days Baclofen 10 Mg Tablet 10 Mg PO TID PRN 30 Days Tizanidine HCl 4 Mg Tablet 4 Mg PO QID PRN 30 Days Reported Magnesium (Magnesium Oxide) 400 Mg Tablet 400 Mg PO BID Xarelto (Rivaroxaban) 20 Mg Tablet 20 Mg PO 1800 Brimonidine Tartrate 5 Ml Btl 1 Drop OU BID Latanoprost 2.5 Ml Drops 1 Drop OU HS Gabapentin 300 Mg Capsule 300 Mg PO BID Atorvastatin Calcium 20 Mg Tablet 20 Mg PO HS Pantoprazole Sodium 40 Mg Tablet.dr 40 Mg PO DAILY Pentoxifylline 400 Mg Tablet.er 400 Mg PO DAILY Amlodipine Besylate 5 Mg Tablet 5 Mg PO HS Instructions to patient/family Please see electronic discharge instructions given to patient. Diagnosis/Problems Diagnosis/Problems (1) Cerebrovascular accident (CVA) with left hemiparesis Status: Acute (2) CVA, old, facial weakness Status: Chronic (3) Anticoagulant long-term use Status: Chronic (4) Hypertension Status: Chronic (5) Paroxysmal atrial fibrillation Status: Chronic (6) Incontinence of urine Status: Acute (7) Hyperlipidemia Status: Chronic (8) Depression Status: Acute (9) Back pain Status: Chronic (10) Urinary retention Clinical Quality Measures DVT/VTE Risk/Contraindication: Risk Factor Score Per Nursin RFS Level Per Nursing on Admit: 4+=Very High SANDY WILLIS DO May 18, 2018 12:42
--- NOTE | 2018-05-18 13:00 | NUR ---
Pt worked w therapies this morning, & ate lunch.
[2018-05-18 13:40] VITALS: BP 116/81
--- NOTE | 2018-05-18 13:57 | Therapy Team Discharge Summary ---
Therapy Discharge Summary Discharge Recommendations Date of Discharge Therapy D/C Recommendations: Home w/ Family Support, Longterm Placement, Residential (TCU/NH) Occupational Therapy Decreased Activ Tolerance, Decreased Safety Aware, Decreased UE Strength, Impaired Cognition, Impaired Coordination, Impaired Funct Balance, Impaired Self -Care Skills, Restricted Funct UE ROM, Visual-Perceptual Deficit Speech-Language Pathology Patient was admitted to the ARU for her needs following a new CVA. The patient was evaluated with deficits noted initially with memory, problem solving and safety. The patient made good progress in these areas as a result of skilled ST services. She continued to have some difficulty with retention of directions needed for OT and PT. The patient is being discharged this date from skilled therapy due to transfer to a local SNF. PT Penitentiary Goals Penitentiary Goals PT Room Service Attendant Goals Time Frame: May 27, 2018 Transfers (B,C,W/C) (FIM): 3 Roll Left to Right (QC): 2 Sit to Lying (QC): 2 Lying-Sitting on Side/Bed(QC): 2 Sit to Stand (QC): 2 Chair/Inu-eu-Lpjem Xfer(QC): 2 Car Transfer (QC): 2 Does the Patient Walk: No and Walking Goal IS indicated Gait (FIM): 1 Gait distance (FIM): 1=up to 49 ft Distance: 10' Walk 10 feet (QC): 3 Gait Level of Assist: 3 Gait Assistive Device: Walker Jose Luis Wheelchair (FIM): 2 Wheelchair distance (FIM): 4=975-11 ft Distance: 50' Wheelchair Level of Assist: 4 Wheel 50 feet with 2 turns (QC: 3 OT Penitentiary Goals Penitentiary Goals Time Frame: May 31, 2018 Eating (FIM): 5 (met) Eating (QC): 5 (met) Oral Hygiene (QC): 5 (not met) Grooming(FIM): 5 (not met) Bathing(FIM): 3 (met) Shower/Bathe Self (QC): 3 (met) Upper Body Dressing(FIM): 4 (me) Upper Body Dressing (QC): 4 (met) Lower Body Dressing(FIM): 3 (not met) Lower Body Dressing (QC): 3 (not met) On/Off Footwear (QC): 3 (not met) Toileting(FIM): 3 (not met) Toileting Hygiene (QC): 3 (not met) Toilet/Commode Transfer(FIM): 4 (not met) Shower Transfer(FIM): 3 Additional Goals: 1-Demonstrate ADL Tasks, 2-Verbalize Understanding, 3- ImproveStrength/Sarah 1=Demonstrate adherence to instructed precautions during ADL tasks. 2=Patient will verbalize/demonstrate understanding of assistive devices/ modifications for ADL. 3=Patient will improve strength/tolerance for activity to enable patient to perform ADL's. Speech Penitentiary Goals Penitentiary Goals Patient will improve safety and independence for achieving highest potential level of function. Met at 80% JAYCEE KING May 18, 2018 13:57
--- NOTE | 2018-05-18 14:11 | NUR ---
Report called to [facility] Charo Liu RN, Elizabeth Hopper RN
--- NOTE | 2018-05-18 15:17 | NUR ---
DATA CONTROL ASSISTANT received contact from insurance CM regarding approval for an additional week; however, Dr. You does not believe patient is appropriate for lengthened stay due to lack of progression and patient's inability to tolerate 3hours of therapy. Following discussion with patient and insurance CM, discharge plans will proceed with [facility] for therapy continuation. DATA CONTROL ASSISTANT updated patient's daughter on discharge plans and transportation at 1p. DATA CONTROL ASSISTANT reviewed IMM and Patient Choice Letter with patient, patient expresses no concerns. DATA CONTROL ASSISTANT completed [place] Care Assessment with patient, information sent KDADS. Please see discharge orders for further information.
[2018-05-18] MEDS ORDERED: meTOprolol SUCCINATE 100 MG (TOPROL XL) TAB PO SCH (20:00)
--- NOTE | 2018-05-19 11:18 | Therapy Team Discharge Summary ---
Therapy Discharge Summary Discharge Recommendations Date of Discharge May 18, 2018 at 13:40 Therapy D/C Recommendations: Home w/ Family Support, Longterm Placement, Group Home (TCU/NH) Physical Therapy Patient came to rehab following a CVA. Upon evaluation patient was dependent for all mobility and wheelchair. Patient has been performing bed mobility and transfer training, balance and endurance training, functional strengthening, gait training, and education. Patient has made poor progress and has not met any of her terminal supervisor goals. Now, patient performs bed mobility with mod assist , supine <-> sit with mod assist, sit <-> stand with max assist, transfers with max assist, car transfer max assist, ambulates 8' in the parallel bars with max assist, and can propel a manual wheelchair 50-100' with min to mod assist. Patient was discharged from this facility yesterday and will be discharged from PT at this time. Occupational Therapy Decreased Activ Tolerance, Decreased Safety Aware, Decreased UE Strength, Impaired Cognition, Impaired Coordination, Impaired Funct Balance, Impaired Self -Care Skills, Restricted Funct UE ROM, Visual-Perceptual Deficit PT Auditor In Charge Goals Fpc Goals PT Auditor In Charge Goals Time Frame: May 27, 2018 Transfers (B,C,W/C) (FIM): 3 Roll Left to Right (QC): 2 Sit to Lying (QC): 2 Lying-Sitting on Side/Bed(QC): 2 Sit to Stand (QC): 2 Chair/Vkq-qq-Hopff Xfer(QC): 2 Car Transfer (QC): 2 Does the Patient Walk: No and Walking Goal IS indicated Gait (FIM): 1 Gait distance (FIM): 1=up to 49 ft Distance: 10' Walk 10 feet (QC): 3 Gait Level of Assist: 3 Gait Assistive Device: Walker Jose Luis Wheelchair (FIM): 2 Wheelchair distance (FIM): 8=718-96 ft Distance: 50' Wheelchair Level of Assist: 4 Wheel 50 feet with 2 turns (QC: 3 OT Auditor In Charge Goals Fpc Goals Time Frame: May 31, 2018 Eating (FIM): 5 (met) Eating (QC): 5 (met) Oral Hygiene (QC): 5 (not met) Grooming(FIM): 5 (not met) Bathing(FIM): 3 (met) Shower/Bathe Self (QC): 3 (met) Upper Body Dressing(FIM): 4 (me) Upper Body Dressing (QC): 4 (met) Lower Body Dressing(FIM): 3 (not met) Lower Body Dressing (QC): 3 (not met) On/Off Footwear (QC): 3 (not met) Toileting(FIM): 3 (not met) Toileting Hygiene (QC): 3 (not met) Toilet/Commode Transfer(FIM): 4 (not met) Shower Transfer(FIM): 3 Additional Goals: 1-Demonstrate ADL Tasks, 2-Verbalize Understanding, 3- ImproveStrength/Sarah 1=Demonstrate adherence to instructed precautions during ADL tasks. 2=Patient will verbalize/demonstrate understanding of assistive devices/ modifications for ADL. 3=Patient will improve strength/tolerance for activity to enable patient to perform ADL's. Speech Auditor In Charge Goals Auditor In Charge Goals Patient will improve safety and independence for achieving highest potential level of function. Met at 80% KATHRINE ODONNELL PT May 19, 2018 11:17
--- NOTE | 2018-05-19 12:54 | Therapy Team Discharge Summary ---
Therapy Discharge Summary Discharge Recommendations Date of Discharge May 18, 2018 at 13:40 Therapy D/C Recommendations: Home w/ Family Support, Intermediate Placement, Snf (TCU/NH) Occupational Therapy Pt admitted to ARU following CVA. On admission pt required mod assist with grooming, max assist with bathing, and dependent for dressing and transfers. Skilled OT intervention focused on ADL training, transfers, and strengthening. Pt made some progress with therapy. By discharge pt was eating with SBA; grooming, bathing, and UE dressing with min assist; mod assist with toilet transfer; and dependent for LE dressing and toileting. Pt met goals for eating, UE dressing,and bathing, but did not meet other goals. Pt discharged to SNF for continued care. D/c ARU OT at this time. Decreased Activ Tolerance, Decreased Safety Aware, Decreased UE Strength, Impaired Cognition, Impaired Coordination, Impaired Funct Balance, Impaired Self -Care Skills, Restricted Funct UE ROM, Visual-Perceptual Deficit PT Baseball Inspector Goals Baseball Inspector Goals PT Baseball Inspector Goals Time Frame: May 27, 2018 Transfers (B,C,W/C) (FIM): 3 Roll Left to Right (QC): 2 Sit to Lying (QC): 2 Lying-Sitting on Side/Bed(QC): 2 Sit to Stand (QC): 2 Chair/Scu-hg-Bjpiz Xfer(QC): 2 Car Transfer (QC): 2 Does the Patient Walk: No and Walking Goal IS indicated Gait (FIM): 1 Gait distance (FIM): 1=up to 49 ft Distance: 10' Walk 10 feet (QC): 3 Gait Level of Assist: 3 Gait Assistive Device: Walker Jose Luis Wheelchair (FIM): 2 Wheelchair distance (FIM): 6=756-88 ft Distance: 50' Wheelchair Level of Assist: 4 Wheel 50 feet with 2 turns (QC: 3 OT Baseball Inspector Goals Baseball Inspector Goals Time Frame: May 31, 2018 Eating (FIM): 5 (met) Eating (QC): 5 (met) Oral Hygiene (QC): 5 (not met) Grooming(FIM): 5 (not met) Bathing(FIM): 3 (met) Shower/Bathe Self (QC): 3 (met) Upper Body Dressing(FIM): 4 (me) Upper Body Dressing (QC): 4 (met) Lower Body Dressing(FIM): 3 (not met) Lower Body Dressing (QC): 3 (not met) On/Off Footwear (QC): 3 (not met) Toileting(FIM): 3 (not met) Toileting Hygiene (QC): 3 (not met) Toilet/Commode Transfer(FIM): 4 (not met) Shower Transfer(FIM): 3 Additional Goals: 1-Demonstrate ADL Tasks, 2-Verbalize Understanding, 3- ImproveStrength/Sarah 1=Demonstrate adherence to instructed precautions during ADL tasks. 2=Patient will verbalize/demonstrate understanding of assistive devices/ modifications for ADL. 3=Patient will improve strength/tolerance for activity to enable patient to perform ADL's. Speech Baseball Inspector Goals Baseball Inspector Goals Patient will improve safety and independence for achieving highest potential level of function. Met at 80% TELLO CHAIREZ OT May 19, 2018 12:54
== END 2018-05-18 13:40 | DRG 57 ==
PROVIDERS: ADMIT Internal Medicine; ATTEND Internal Medicine
DX: I69.354 Hemiplegia and hemiparesis following cerebral infarction affecting left non-dominant side (principal); I69.398 Other sequelae of cerebral infarction; R41.4 Neurologic neglect syndrome; N39.0 Urinary tract infection, site not specified; I12.9 Hypertensive chronic kidney disease with stage 1 through stage 4 chronic kidney disease, or unspecified chronic kidney disease; N18.9 Chronic kidney disease, unspecified; I69.392 Facial weakness following cerebral infarction; F32.9 Major depressive disorder, single episode, unspecified; I48.0 Paroxysmal atrial fibrillation; R32 Unspecified urinary incontinence; R33.9 Retention of urine, unspecified; E78.5 Hyperlipidemia, unspecified; M19.90 Unspecified osteoarthritis, unspecified site; M06.9 Rheumatoid arthritis, unspecified; K44.9 Diaphragmatic hernia without obstruction or gangrene; Z87.891 Personal history of nicotine dependence; B96.20 Unspecified Escherichia coli [E. coli] as the cause of diseases classified elsewhere; Z79.01 Long term (current) use of anticoagulants; F41.9 Anxiety disorder, unspecified
CPT/HCPCS: 36415; 80053; 81000; 82962; 85025; 85027; 87077; 87088; 87186

== ENCOUNTER → 2018-06-14 | Outpatient (CLI) | payer MEDICARE ==
[~2018-06-14] MED LIST changes: +ACHD5005 PO; +ALPR0.254 PO; +ASPI-983 PO; +BACL10TA PO; +BETH25TA PO; +BUPR150T14 PO; +DICL100G18 TOP; +LACT20SO2 PO; +METO-395 PO; +TAMS0.4C98 PO; +TIZA4TAB3 PO
[2018-06-14 10:13] LABS: ALBUMIN 4.1 GM/DL (3.2-4.5); BILIRUBIN,TOTAL 0.5 MG/DL (0.1-1.0); CALCIUM 10.5 MG/DL (8.5-10.1); CREATININE SERUM 1.49 MG/DL (0.60-1.30); TOTAL PROTEIN 6.6 GM/DL (6.4-8.2)
== END ==
LOC: LAB 08:59
PROVIDERS: ATTEND Nurse Practitioner Community Health
DX: E16.2 Hypoglycemia, unspecified (principal)
CPT/HCPCS: 36415; 80053; 82951; 82952; 82962; 83036

== ENCOUNTER 2018-07-17 11:08 | Inpatient (IN) | payer MEDICARE ==
[~2018-07-17] VITALS: Ht 165.1 cm; Wt 82.1 kg
[2018-07-17] VITALS (9 sets, daily range): BP systolic 133–167; BP diastolic 67–90
[~2018-07-17 11:08] MED LIST changes: -RIVA20TA PO; +RIVA20TA2 PO
[2018-07-17 11:49] LABS: BASOPHILS % (AUTO) 1 % (0-10); EOSINOPHILS # (AUTO) 0.1 10^3/uL (0.0-0.3); EOSINOPHILS % (AUTO) 2 % (0-10); HEMATOCRIT 39 % (35-52); HEMOGLOBIN 11.3 G/DL (11.5-16.0); LYMPHOCYTES # (AUTO) 1.7 X 10^3 (1.0-4.0); LYMPHOCYTES % (AUTO) 27 % (12-44); MEAN CORPUSCULAR HEMOGLOBIN 25 PG (25-34); MEAN CORPUSCULAR HGB CONC 29 G/DL (32-36); MEAN CORPUSCULAR VOLUME 84 FL (80-99); MEAN PLATELET VOLUME 10.8 FL (7.4-10.4); MONOCYTES # (AUTO) 0.5 X 10^3 (0.0-1.0); MONOCYTES % (AUTO) 9 % (0-12); NEUTROPHILS # (AUTO) 3.9 X 10^3 (1.8-7.8); NEUTROPHILS % (AUTO) 62 % (42-75); PLATELET COUNT 185 10^3/uL (130-400); RED CELL DISTRIBUTION WIDTH 15.6 % (10.0-14.5); WHITE BLOOD COUNT 6.3 10^3/uL (4.3-11.0)
--- NOTE | 2018-07-17 11:49 | ED Neurological Problem ---
General Chief Complaint: Neurological Problems Stated Complaint: STROKE SYMPTOMS Nursing Triage Note: [place] staff states that pt had a stroke in Apr, pt had some confusion this AM and had taken her clothes off and was not sure why she had done so, pt also had what staff called and episode of "depth perception" being off, pt is tearful, pt is able to perform all stroke assessment testing Nursing Sepsis Screen: No Definite Risk Source: patient, family, [place] [facility] records, old records, caregiver ([place] [facility] provider) Exam Limitations: no limitations History of Present Illness Date Seen by Provider: Jul 17, 2018 Time Seen by Provider: 11:13 Initial Comments Patient comes to the ER by private conveyance from the [place] [facility] with chief complaint is morning she was doing some bizarre behavior pouring her milk on to her bread and toast. She was acting confused last night, taking her clothes off and walking around. She has a history of stroke in April with left side symptoms. She had some residual deficit was able stand and take a few steps with a walker. Today however her family notes that her left facial droop is more pronounced and her left arm is having inability to do meaningful tasks and she cannot stand or move her left leg. They received a text from the physical therapist 3 days ago last Tuesday that the patient was having some left-sided neglect and weakness recurring worse. When the patient had her stroke in April she was having left side symptoms left facial droop. Patient does not remember much of what happened this morning. She is tearful and states that she thinks she had another stroke. She has a history of chronic kidney disease stage III, atrial fibrillation paroxysmal with Xarelto. Family denies that she has diabetes. Staff noticed he has not got her morning medicines yet. Patient was having some increased back pain lately and usually uses tramadol for her pain once maybe twice a day. She is on aspirin. Allergies and Home Medications Allergies Coded Allergies: No Known Drug Allergies (Verified , 09/08/12) Home Medications Alprazolam 0.25 Mg Tablet, 0.25 MG PO Q8H PRN for ANXIETY Prescribed by: SANDY WILLIS on 05/18/18 0827 Amlodipine Besylate 5 Mg Tablet, 5 MG PO HS, (Reported) Aspirin 81 Mg Tablet.dr 81 MG PO DAILY Prescribed by: SANDY WILLIS on 05/03/18 0842 Atorvastatin Calcium 20 Mg Tablet, 20 MG PO HS, (Reported) Baclofen 10 Mg Tablet, 10 MG PO TID PRN for SPASMS Prescribed by: SANDY WILLIS on 05/03/18841 Bethanechol Chloride 25 Mg Tablet, 25 MG PO ACHS Prescribed by: SANDY WILLIS on 05/18/18826 Brimonidine Tartrate 5 Ml Btl, 1 DROP OU BID, (Reported) Bupropion HCl 150 Mg Tablet.er, 150 MG PO DAILY Prescribed by: SANDY WILLIS on 05/18/18826 Diclofenac Sodium 100 Gm Gel..gram., 0 GM TOP QID PRN for PAIN Prescribed by: SANDY WILLIS on 05/18/18826 Gabapentin 300 Mg Capsule, 300 MG PO BID, (Reported) Hydrocodone Bit/Acetaminophen 1 Tab Tab, 1 TAB PO Q4H PRN for PAIN-SEVERE Prescribed by: SANDY WILLIS on 05/18/18826 Lactulose 20 Gm/30 Ml Solution, 10 GM PO BID Prescribed by: SANDY WILLIS on 05/18/18826 Latanoprost 2.5 Ml Drops, 1 DROP OU HS, (Reported) Magnesium Oxide 400 Mg Tablet, 400 MG PO BID, (Reported) Metoprolol Succinate 100 Mg Tab.er.24h, 100 MG PO DAILY Prescribed by: SANDY WILLIS on 05/18/18826 Pantoprazole Sodium 40 Mg Tablet.dr, 40 MG PO DAILY, (Reported) Pentoxifylline 400 Mg Tablet.er, 400 MG PO DAILY, (Reported) Rivaroxaban 20 Mg Tablet, 20 MG PO 1800, (Reported) Tamsulosin HCl 0.4 Mg Cap, 0.4 MG PO DAILY@1800 Prescribed by: SANDY WILLIS on 05/18/18826 Tizanidine HCl 4 Mg Tablet, 4 MG PO QID PRN for SPASMS Prescribed by: SANDY WILLIS on 05/03/18841 Tramadol HCl 50 Mg Tablet, 50 MG PO QID PRN for PAIN-MODERATE Prescribed by: SANDY WILLIS on 05/18/18826 Patient Home Medication List Home Medication List Reviewed: Yes Review of Systems Review of Systems Constitutional: No chills, No fever, No malaise; weakness Eyes: Denies Blindness, Denies Blurred Vision, Denies Drainage Ears, Nose, Mouth, Throat: denies ear pain, denies ear discharge Respiratory: No cough, No short of breath Cardiovascular: No chest pain, No edema, No Hx of Intervention, No palpitations Gastrointestinal: No abdominal pain, No constipation, No diarrhea, No nausea Genitourinary: No discharge, No dysuria Musculoskeletal: No back pain, No joint pain Skin: No pruritus, No rash Psychiatric/Neurological: See HPI; Denies Headache; Numbness Past Rpvhajz-Rqickn-Ecfesy Hx Patient Social History Alcohol Use: Denies Use Recreational Drug Use: No Smoking Status: Former Smoker Type Used: Cigarettes Former Smoker, Quit: Dec 19, 1986 2nd Hand Smoke Exposure: No Recent Foreign Travel: No Contact w/Someone Who Travel: No Recent Infectious Disease Expo: No Recent Hopitalizations: No Immunizations Up To Date Tetanus Booster (TDap): Unknown PED Vaccines UTD: Yes Date of Pneumonia Vaccine: Nov 19, 2013 Date of Influenza Vaccine: Nov 19, 2017 Seasonal Allergies Seasonal Allergies: Yes Past Medical History Surgeries: Yes (jaw bone) Abdominal, Appendectomy, Eye Surgery, Tonsillectomy Respiratory: No Currently Using CPAP: No Currently Using BIPAP: No Cardiac: Yes (small PFO) Heart Murmur, Hypertension, Valvular Heart Disease Neurological: Yes Stroke, TIA 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 Disorders: No Female 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 Disorders: Denies RELIGIOUS ASSISTANT History: Menopausal Sexually Transmitted Disease: No HIV/AIDS: No Genitourinary: Yes Gastrointestinal: Yes Hiatal Hernia Musculoskeletal: Yes Arthritis Endocrine: No HEENT: Yes Cataract, Glaucoma Hearing Impairment: Denies Cancer: No Did You Recieve Any Treatments: No Psychosocial: Yes Anxiety, Depression Integumentary: No Blood Disorders: Yes (Anemia) Adverse Reaction/Blood Tranf: No Family Medical History FH: CVA (cerebrovascular accident) G8 BROTHER G8 SISTER FH: breast cancer 19 MOTHER FH: cancer 19 FATHER Hypertension 19 MOTHER Physical Exam Vital Signs Vital Signs - First Documented 07/17/18 11:32 Temp 98.4 Pulse 78 Resp 18 B/P (MAP) 178/90 (119) Capillary Refill : Less Than 3 Seconds Height, Weight, BMI Height: 5'5.00" Weight: 163lbs. 11.0oz. 74.483842eo; 28.3 BMI Method:Stated General Appearance: WD/WN, mild distress HEENT: PERRL/EOMI, normal ENT inspection, TMs normal, pharynx normal Neck: non-tender, full range of motion, supple, normal inspection Respiratory: chest non-tender, lungs clear, normal breath sounds, no respiratory distress, no accessory muscle use Cardiovascular: normal peripheral pulses, regular rate, rhythm, no edema, no gallop Peripheral Pulses: 2+ Radial Pulses (R), 2+ Radial Pulses (L) Gastrointestinal: normal bowel sounds, non tender, soft Neurologic/Psychiatric: alert, normal mood/affect, oriented x 3 Crainal Nerves: normal hearing, PERRL, abnormal speech (slightly slurred), facial asymmetry (left), facial droop (left); No facial paresthesias Coordination/Gait: abnormal gait (unable to stand independently), ABN nose to finger (L) Motor/Sensory: pronator drift (L) (upper and lower), sensory deficit (left side upper and lower extremity), weak motor strength LUE, weak motor strength LLE Skin: normal color, warm/dry Stroke Onset of Symptoms Date of Onset of Symptoms: Jul 14, 2018 Symptoms onset unknown: Yes NIH Stroke Scale Assessment Select: Initial Level of Consciousness: 0=Alert (0), Level of Consciousness- Questions: 0=Answers both month/age (0), LOC Commands: 0=Performs both tasks (0) , Gaze: Normal (0), Visual Wright: 0=No visual loss (0), Facial Movement ( Facial Paresis): 2=Partial paralysis (2), Motor Function-Arms Right: 0=No drift (0), Motor Function-Arms Left: 1=Drift (1), Motor Function-Legs Right: 0=No drift (0), Motor Function-Legs Left: 2=Some effort/gravity (2), Limb Ataxia: 1= Present in one limb (1), Sensory: 2=Severe to total loss (2), Best Language: 0= No aphasia (0), Dysarthria: 1=Mild to moderate loss (1), Extinction & Inattention: 0=No abnormality (0), Total: 9 Stroke Thrombolytic Exclusion Age 18 or Over: Yes Acute intenal hemorrhage: No History of CVA: Yes Uncontrolled Coagulation Defec: No Intracranial Hemorrhage: No Severe Hypertension: No GI or Bleed: No Subarachnoid Hemorrhage: No Intracranial Neoplasm/Aneurysm: No Oral Anticoagulants: Yes Surgery or Trauma: No Puncture of Non-Compressible V: No Recent CPR: No Diabetic Hemorrhagic Retinopat: No Organ Biopsy: No Recent Obstetric Delivery: No Glucose: No (107) Significant Hepatic Dysfunctio: No NIH Stoke Scale >22: No Bacterial Endocarditis: No Pericarditis: No Improving Symptoms: No Platelets: No (185K) TPA Contraindication: Yes (oral anticoagulants) IV - TPa Received IV - TPa Procedure Performed?: No Progress/Results/Core Measures Results/Orders Lab Results Laboratory Tests Test 07/17/18 11:30 07/17/18 12:00 07/17/18 12:04 Range/Units White Blood Count 6.3 4.3-11.0 10^3/uL Red Blood Count 4.57 4.35-5.85 10^6/uL Hemoglobin 11.3 L 11.5-16.0 G/DL Hematocrit 39 35-52 % Mean Corpuscular Volume 84 80-99 FL Mean Corpuscular Hemoglobin 25 25-34 PG Mean Corpuscular Hemoglobin Concent 29 L 32-36 G/DL Red Cell Distribution Width 15.6 H 10.0-14.5 % Platelet Count 185 130-400 10^3/uL Mean Platelet Volume 10.8 H 7.4-10.4 FL Neutrophils (%) (Auto) 62 42-75 % Lymphocytes (%) (Auto) 27 12-44 % Monocytes (%) (Auto) 9 0-12 % Eosinophils (%) (Auto) 2 0-10 % Basophils (%) (Auto) 1 0-10 % Neutrophils # (Auto) 3.9 1.8-7.8 X 10^3 Lymphocytes # (Auto) 1.7 1.0-4.0 X 10^3 Monocytes # (Auto) 0.5 0.0-1.0 X 10^3 Eosinophils # (Auto) 0.1 0.0-0.3 10^3/uL Basophils # (Auto) 0.0 0.0-0.1 10^3/uL Sodium Level 142 135-145 MMOL/L Potassium Level 4.7 3.6-5.0 MMOL/L Chloride Level 109 H 98-107 MMOL/L Carbon Dioxide Level 23 21-32 MMOL/L Anion Gap 10 5-14 MMOL/L Blood Urea Nitrogen 17 7-18 MG/DL Creatinine 1.47 H 0.60-1.30 MG/DL Estimat Glomerular Filtration Rate 35 BUN/Creatinine Ratio 12 Glucose Level 114 H 70-105 MG/DL Calcium Level 10.8 H 8.5-10.1 MG/DL Corrected Calcium 8.5-10.1 MG/DL Total Bilirubin 0.6 0.1-1.0 MG/DL Aspartate Amino Transf (AST/SGOT) 21 5-34 U/L Alanine Aminotransferase (ALT/SGPT) 16 0-55 U/L Alkaline Phosphatase 130 40-136 U/L Troponin I < 0.028 <0.028 NG/ML C-Reactive Protein High Sensitivity 0.07 0.00-0.50 MG/DL Total Protein 7.5 6.4-8.2 GM/DL Albumin 4.7 H 3.2-4.5 GM/DL Urine Color YELLOW Urine Clarity CLEAR Urine pH 7 5-9 Urine Specific [place] 1.005 L 1.016-1.022 Urine Protein 3+ H NEGATIVE Urine Glucose (UA) NEGATIVE NEGATIVE Urine Ketones NEGATIVE NEGATIVE Urine Nitrite NEGATIVE NEGATIVE Urine Bilirubin NEGATIVE NEGATIVE Urine Urobilinogen NORMAL NORMAL MG/DL Urine Leukocyte Esterase 1+ H NEGATIVE Urine RBC (Auto) 5+ H NEGATIVE Urine RBC 10-25 H /HPF Urine WBC RARE /HPF Urine Squamous Epithelial Cells 2-5 /HPF Urine Crystals NONE /LPF Urine Bacteria TRACE /HPF Urine Casts NONE /LPF Urine Mucus SMALL H /LPF Urine Culture Indicated YES Glucometer 107 70-110 MG/DL My Orders Orders - ROXANNE,KANDY J Chest 1 View, Ap/Pa Only (07/17/18 11:39) Cbc With Automated Diff (07/17/18 11:39) Comprehensive Metabolic Panel (07/17/18 11:39) Hs C Reactive Protein (07/17/18 11:39) Troponin I (07/17/18 11:39) Ua Culture If Indicated (07/17/18 11:39) Catheter(Urinary) Insert & Ass 03,15 (07/17/18 11:39) Ekg Tracing (07/17/18 11:39) Continuous Ekg Monitoring (07/17/18 11:39) Fentanyl Injection (Sublimaze Injection (07/17/18 12:00) Accucheck Stat ONCE (07/17/18 11:49) Iohexol Injection (Omnipaque 350 Mg/Ml 1 (07/17/18 12:15) Received Contrast (Hold Metformin- Contr (07/17/18 12:15) Ct Head Wo (07/17/18 12:19) Urine Culture (07/17/18 12:00) Fentanyl Injection (Sublimaze Injection (07/17/18 13:00) Fentanyl Injection (Sublimaze Injection (07/17/18 12:45) Lorazepam Injection (Ativan Injection) (07/17/18 13:00) Lorazepam Injection (Ativan Injection) (07/17/18 12:51) Labetalol Injection (Normodyne Injection (07/17/18 14:15) Medications Given in ED Current Medications Medications Dose Ordered Sig/Ondina Route Start Time Stop Time Status Last Admin Dose Admin Fentanyl Citrate 100 mcg STK-MED ONCE .ROUTE 07/17/18 12:45 07/17/18 12:48 DC 07/17/18 12:55 50 MCG Vital Signs/I&O 07/17/18 11:32 Temp 98.4 Pulse 78 Resp 18 B/P (MAP) 178/90 (119) Blood Pressure Mean: 119 Progress Progress Note #1: Time: 12:03 Progress Note Delirium versus reactivation stroke symptoms? Patient's on oral anticoagulants Xarelto. Seems like maybe her symptoms started as early as Tuesday but her last known well time is not definite and she is not a candidate for tPA. Would like to get a CT angiogram of her head and neck. Her any function may make that difficult so we'll get a CT noncontrast if her creatinine is not good. She's not had her morning blood pressure medicines but at rest her blood pressures are down to 155/93. Blood glucose is 107. Family says that they did a two-hour glucose challenge and she passed it in the clinic month ago. History of left-sided CVA discharged to rehabilitation on May 18, 2018. Paroxysmal atrial fibrillation on Xarelto. Severe depression and anxiety. Creatinine baseline 1.6. History of urinary retention resolved on Urecholine. Patient's having some muscle spasms pain in her left upper and lower extremity; 50 g of fentanyl. We will also give her half milligram Ativan to help with her muscle spasms and anxiety. Progress Note #2: Time: 14:02 Progress Note Discussed the case with neurologist Dr. Fisher at [facility]. She agrees that TPA is out of the question because of unknown last well-known time and use of Xarelto. She says if we suspect that there is a large vessel occlusion we should do a CTA despite the kidney function. However she would cast some doubt based on the symptoms and how they present that this may just be worsening of previous stroke symptoms and she thinks the more appropriate approach would be to get an MRI/MRA especially if it could be done in a relatively quick fashion. She does not think a large vessel occlusion is as likely at this time. Discussed the case with patient and the family. We talked about the risks, benefits and alternatives to doing CT angiogram now versus MRI/MRA over the next several hours. They would prefer patient to protect her kidneys are not risk going on to dialysis. The patient has been more confused since we gave her the fentanyl as well as her blood pressure has come back So were going to going give her 10 mg of labetalol and set her up to do the MRI. Initial ECG Impression Date: Jul 17, 2018 Initial ECG Impression Time: 12:01 Initial ECG Rate: 69 Initial ECG Rhythm: Normal Sinus Initial ECG Intervals: Normal Initial ECG Impression: Nonspecific Changes Comment Sinus rhythm without ST elevation or depression. Diagnostic Imaging Diagonstic Imaging: Xray Plain Films/CT/US/NM/MRI: chest Comments [facility], [place] NAME: DANIELA WORLEY [facility] REC#: [id number] PT STATUS: REG ER : 1945 PHYSICIAN: KANDY OLIVEIRA MD ADMIT DATE: 07/17/18/ER Draft Date of Exam:07/17/18 CHEST 1 VIEW, AP/PA ONLY INDICATION: Stroke, confusion, altered mental status. TECHNIQUE: Frontal view of the chest. COMPARISON: 04/29/2018. FINDINGS: Lung volumes are low. No focal consolidation is seen. The cardiac silhouette is stable in size. The potline monitor device is noted. There is aortic atherosclerosis. No pleural effusion or pneumothorax is seen. IMPRESSION: Low lung volumes with no acute pulmonary abnormality seen. Dictated on workstation # [id number] Dict: 07/17/18 1242 Trans: 07/17/18 1248 [id number] Interpreted by: RUBENS TEJADA MD Electronically signed by: Reviewed: Reviewed by Me Diagonstic Imaging: CT Plain Films/CT/US/NM/MRI: head (neck) Comments NAME: DANIELA WORLEY MED REC#: [id number] PHYSICIAN: KANDY OLIVEIRA MD CC: CAN CRAWFORD MD; KANDY OLIVEIRA Page 2 of 2 RADIOLOGY REPORT [facility], [place] CC: CAN CRAWFORD MD; KANDY OLIVEIRA Page 1 of 2 RADIOLOGY REPORT NAME: DANIELA WORLEY MED REC#: [id number] PT STATUS: REG ER : 1945 PHYSICIAN: KANDY OLIVEIRA MD ADMIT DATE: 07/17/18/ER Signed Date of Exam: 07/17/18 CT HEAD WO PROCEDURE: CT head without contrast. TECHNIQUE: Multiple contiguous axial images were obtained through the brain without the use of intravenous contrast. Auto Exposure Controls were utilized during the CT exam to meet ALARA standards for radiation dose reduction. INDICATION: History of recent stroke, now with confusion. COMPARISON: Comparison made with prior examination from 04/29/2018. FINDINGS: There is prominence of the ventricles and sulci. There is chronic microvascular ischemic disease. There is unchanged encephalomalacia involving the posterior left temporal lobe, left occipital lobe, and parietal lobe. There has been progressive encephalomalacia in the posteromedial aspect of the right frontal lobe. There is no hydrocephalus. There is no midline shift. There is no intracranial mass, hemorrhage, or extra-axial fluid collection. There is mild encephalomalacia in the right occipital lobe. The calvarium is intact. The sinuses and mastoid air cells are clear. IMPRESSION: Atrophy and chronic microvascular ischemic disease with several areas of encephalomalacia compatible with prior CVAs. While there has been no acute interval change in light of the degree of white matter disease and prior CVAs, it is difficult to exclude an acute CVA. If high clinical concern persists, further evaluation with MRI should be considered. No other acute intracranial abnormality. Dictated by: Dictated on workstation # [id number] Dict: 07/17/18 1305 Trans: 07/17/18 1316 Interpreted by: CAN CRAWFORD MD Electronically signed by: CAN CRAWFORD MD 07/17/18 1316 Reviewed: Reviewed by Me Departure Communication (Admissions) Time/Spoke to Admitting Phy: 14:00 Discussed the case with Dr. Livingston she agrees to the patient in ICU get the MRI/ MRA of the brain and neck and will see the patient herself. Impression Primary Impression: Acute left-sided weakness Additional Impression: Delirium Disposition: ADMITTED INPATIENT Condition: Stable Admissions Decision to Admit Reason: Admit from ER (General) Decision to Admit/Date: Jul 17, 2018 Time/Decision to Admit Time: 14:09 Departure-Patient Inst. Referrals: [facility] (PCP/Family) Primary Care Physician KANDY OLIVEIRA Jul 17, 2018 11:49
[2018-07-17] MEDS ORDERED: fentaNYL INJECTION 100 MCG/2 ML AMP IVP ONE ×2 (12:00→13:00)
[2018-07-17 12:01] LABS: ALANINE AMINOTRANSFERASE 16 U/L (0-55); ALBUMIN 4.7 GM/DL (3.2-4.5); ALKALINE PHOSPHATASE 130 U/L (40-136); BILIRUBIN,TOTAL 0.6 MG/DL (0.1-1.0); BUN/CREATININE RATIO 12; CALCIUM 10.8 MG/DL (8.5-10.1); CARBON DIOXIDE 23 MMOL/L (21-32); CHLORIDE 109 MMOL/L (98-107); CREATININE SERUM 1.47 MG/DL (0.60-1.30); GFR ESTIMATED 35; GLUCOSE 114 MG/DL (70-105); POTASSIUM 4.7 MMOL/L (3.6-5.0); SODIUM 142 MMOL/L (135-145); TOTAL PROTEIN 7.5 GM/DL (6.4-8.2)
[2018-07-17 12:09] LABS: BILIRUBIN,URINE NEGATIVE (NEGATIVE); CLARITY,URINE CLEAR; COLOR,URINE YELLOW; GLUCOSE, URINE (UA) NEGATIVE (NEGATIVE); KETONES,URINE NEGATIVE (NEGATIVE); LEUKOCYTE ESTERASE ,URINE 1+ (NEGATIVE); NITRITE,URINE NEGATIVE (NEGATIVE); PH,URINE 7 (5-9); PROTEIN,URINE 3+ (NEGATIVE); UROBILINOGEN,URINE NORMAL (NORMAL)
[2018-07-17] MEDS ORDERED: HOLD METFORMIN - RECEIVED CONTRAST 20 ML VIAL IV SCH (12:15)
[2018-07-17] MEDS ORDERED: IOHEXOL 350 MG/ML 100 ML (OMNIPAQUE 350) VIAL IV ONE (12:15)
[2018-07-17 12:21] LABS: BACTERIA,URINE TRACE /HPF; WBC,URINE RARE /HPF
[2018-07-17] MEDS ORDERED: fentaNYL INJECTION 100 MCG/2 ML AMP ONE (12:45)
--- NOTE | 2018-07-17 12:49 | Diagnostic Imaging Report ---
INDICATION: Stroke, confusion, altered mental status. TECHNIQUE: Frontal view of the chest. COMPARISON: 04/29/2018. FINDINGS: Lung volumes are low. No focal consolidation is seen. The cardiac silhouette is stable in size. The athletic monitor device is noted. There is aortic atherosclerosis. No pleural effusion or pneumothorax is seen. IMPRESSION: Low lung volumes with no acute pulmonary abnormality seen. Dictated by: Dictated on workstation # [id number]
[2018-07-17] MEDS ORDERED: LORazepam INJ 2 MG/ML (ATIVAN) VIAL ONE (12:51)
[2018-07-17] MEDS ORDERED: LORazepam INJ 2 MG/ML (ATIVAN) VIAL IVP ONE (13:00)
--- NOTE | 2018-07-17 13:15 | Diagnostic Imaging Report ---
PROCEDURE: CT head without contrast. TECHNIQUE: Multiple contiguous axial images were obtained through the brain without the use of intravenous contrast. Auto Exposure Controls were utilized during the CT exam to meet ALARA standards for radiation dose reduction. INDICATION: History of recent stroke, now with confusion. COMPARISON: Comparison made with prior examination from 04/29/2018. FINDINGS: There is prominence of the ventricles and sulci. There is chronic microvascular ischemic disease. There is unchanged encephalomalacia involving the posterior left temporal lobe, left occipital lobe, and parietal lobe. There has been progressive encephalomalacia in the posteromedial aspect of the right frontal lobe. There is no hydrocephalus. There is no midline shift. There is no intracranial mass, hemorrhage, or extra-axial fluid collection. There is mild encephalomalacia in the right occipital lobe. The calvarium is intact. The sinuses and mastoid air cells are clear. IMPRESSION: Atrophy and chronic microvascular ischemic disease with several areas of encephalomalacia compatible with prior CVAs. While there has been no acute interval change in light of the degree of white matter disease and prior CVAs, it is difficult to exclude an acute CVA. If high clinical concern persists, further evaluation with MRI should be considered. No other acute intracranial abnormality. Dictated by: Dictated on workstation # [id number]
--- NOTE | 2018-07-17 13:19 | NUR ---
in room to administer anxiety medication, pt resting quietly with eyes closed, pt shows no s/s of distress, pt deneis any needs or c/o at this time, vs assessed and stable, anxiety medication held at this time
[2018-07-17] MEDS ORDERED: LABETALOL HCL 20 MG/4 ML VIAL IV ONE (14:15)
--- NOTE | 2018-07-17 14:27 | NUR ---
attempt to give inpatient report, was asked to call back in five minutes
--- OUTSIDE RECORDS SUMMARY | 2018-07-17 14:42 | XMS REPORT | Clinical Summary ---
Author Author [facility] Organization [facility] Address Unknown Phone Unavailable Care Team Providers Care Tube Bender Hand Name Role Phone Hellen Tomas RN Unavailable Unavailable Oriana Watts MD PCP Source Comments Some departments are not documenting in the electronic medical record. If you do not see the information that you expected, contact Release of Information in the Health Information Management department at [phone] for further assistance in locating additional records.[facility] Allergies Not on File Medications Not on [...] (1 of 2 - PCV13) INFLUENZA VACCINE 10/19/2018 Results Not on filefrom Last 3 Months
--- OUTSIDE RECORDS SUMMARY | 2018-07-17 14:43 | XMS REPORT ---
Author Author Migration, Doctor Organization [facility] Address Unknown Phone Unavailable Care Team Providers Care Physics Teacher Name Role Phone Migration, Doctor Unavailable Unavailable PROBLEMS Type Condition ICD9-CM Code BUU40-YC Code Onset Dates Condition Status SNOMED Code Problem Coronary artery disease involving [place] heart with angina pectoris, unspecified vessel or lesion type I25.119 Active 74793959 Problem Mild major depression F32.0 Active 09666953 Problem Left hemiplegia G81.94 Active 288741558 Problem Hypoglycemia E16.2 Active 834203117 Problem GERD (gastroesophageal reflux disease) K21.9 Active 473735548 Problem Cerebrovascular disease I67.9 Active 87954723 Problem Atrial fibrillation I48.91 Active 08662345 Problem CVA (cerebral vascular accident) I63.9 Active 184812180 ALLERGIES No Information ENCOUNTERS Encounter Location Date Diagnosis [facility] [id number] [place] [address] May, Via [facility] [address] [place] [id number] May, Hypoglycemia E16.2 ; Left hemiplegia G81.94 and Dysuria R30.0 [facility] [id number] [place] [address] May, [facility] [address] [place] [id number] May, CVA (cerebral vascular accident) I63.9 ; Atrial fibrillation I48.91 and Headache R51 [facility] [id number] [place] [address]- [address] Apr, [facility] [id number] [place] [address]3978- 56[address] Mar, Coronary artery disease involving [place] heart with angina pectoris, unspecified vessel or lesion type I25.119 [facility] [id number] [place] [address] 58606- [address] Mar, Mild major depression F32.0 ; Cerebrovascular disease I67.9 and GERD (gastroesophageal reflux disease) K21.9 [facility] [id number] [place] [address] 67683- [address] Mar, Coronary artery disease involving [place] heart with angina pectoris, unspecified vessel or lesion type I25.119 [facility] [id number] [place] [address] 27273- 479[address] Jun, [facility] [id number] [place] [address] 61132- 23[address] Jun, [facility] [id number] [place] [address] 32371- 5278 May, [facility] [id number] [place] [address] 41211- 1616 Apr, [facility] [id number] [place] [address] 71878- 15[address] Apr, [facility] [id number] [place] [address] 91634- 0051 Mar, [facility] [id number] [place] [address] 66485- 7596 Feb, [facility] [id number] [place] [address] 27914- 2262 Feb, [facility] [id number] [place] [address] 11466- 0716 Jan, [facility] [id number] [place] [address] 38810- 6041 Jan, [facility] [id number] [place] [address] 95104- 7812 Jan, [facility] [address] [address] Dec, [facility] [id number] [place] [address] 96596- 6726 Dec, [facility] [address] [facility] [place] [id number] [place] [address] Dec, IMMUNIZATIONS No Known Immunizations SOCIAL HISTORY Never Assessed REASON FOR VISIT [facility] PLAN OF CARE VITAL SIGNS MEDICATIONS Medication Instructions Dosage Frequency Start Date End Date Duration Status Ambien 10 mg 1 Tablet by Oral route 1 time per dayAs needed for sleep.. Apr, Active RESULTS No Results PROCEDURES No Known procedures INSTRUCTIONS MEDICATIONS ADMINISTERED No Known Medications MEDICAL (GENERAL) HISTORY Type Description Date 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 Medical History glaucoma Medical History pt has had 4 strokes Medical History pt only has one kidney Surgical History appendectomy 18years old Surgical History tonsillectomy 19 years old Surgical History hernia surgery x3 times Hospitalization History surgeries only
--- NOTE | 2018-07-17 14:45 | NUR ---
second attempt to give inpatient report, nurse unable to take report at this time, states will call back
--- OUTSIDE RECORDS SUMMARY | 2018-07-17 14:50 | XMS REPORT | Continuity of Care Document ---
Author Organization Unknown Address Unknown Allergies Active Description Code Type Severity Reaction Onset Reported/Identified Relationship to Patient Clinical Status Yes NO KNOWN DRUG ALLERGIES UNKNOWN NO KNOWN DRUG ALLERG Yes NKDA NKDA Mild N/ A 09/01/2008 Yes No Known Drug Allergies [id number] Drug Allergy Unknown N/A 08/13/2016 Medications There [...] MD Ot V17.1 FAMILY HX-STROKE 03/26/2014 JERICA GILILAM MD Ot V57.89 REHABILITATION PROC NEC 04/10/2014 DOMI MARTINEZ MD Ot 272.4 HYPERLIPIDEMIA NEC/NOS 04/10/2014 DOMI MARTINEZ MD Ot 403.90 HYPTNSV CHR KID DIS, UNSPEC, W CHR KD ST 04/10/2014 DOMI MARTINEZ MD Ot 424.0 MITRAL VALVE DISORDER 04/10/2014 DOMI MARTINEZ MD Ot 434.91 CEREBRAL ART OCCLUSION NOS W CEREBRAL IN 04/10/2014 DOMI MARTINEZ MD Ot 585.9 CHRONIC KIDNEY DISEASE, UNSPECIFIED 04/10/2014 DOMI MARITNEZ MD Ot 714.0 RHEUMATOID ARTHRITIS 04/10/2014 DOMI [...] MICHELLE WOODS, DOMI Munoz Ot I63.9 06/26/2015 DOMI MARTINEZ MD Ot [...] R63.4 ABNORMAL WEIGHT LOSS 09/05/2016 NADIA BARTHOLOMEW MD Ot Z86.010 PERSONAL HISTORY [...] FRITZ MD Ot 553.3 DIAPHRAGMATIC HERNIA 09/06/2016 ERNSETO FRITZ MD Ot 429.3 CARDIOMEGALY 09/06/2016 ERNESTO FRITZ MD Ot 530.81 ESOPHAGEAL REFLUX 09/06/2016 ERNESTO FRITZ MD Ot V72.63 PRE-PROCEDURAL LABORATORY EXAMINATION 09/06/2016 ERNESTO FRITZ MD Ot V72.81 [id number] CARDIOVASCULAR 09/06/2016 ERNESTO FRITZ MD Ot V72.83 EXAM PRE-OPERATIVE NEC 09/06/2016 ERNESTO FRITZ MD Ot V74.8 SCREEN-BACTERIAL DIS NEC 09/06/2016 ERNESTO FRITZ MD Ot V72.84 EXAM PRE-OPERATIVE NOS 09/06/2016 CATRINA WOODS, ERNESTO S Ot 530.81 ESOPHAGEAL REFLUX 09/06/2016 ERNESTO FRITZ MD Ot V45.89 POSTSURGICAL STATES NEC 09/06/2016 ERNESTO FRITZ MD Ot V72.84 EXAM PRE-OPERATIVE NOS 09/06/2016 ERNESTO FRITZ MD Ot 530.11 REFLUX ESOPHAGITIS 09/06/2016 ERNESTO FRITZ MD Ot V45.89 POSTSURGICAL STATES NEC 09/06/2016 ERNESTO FRITZ MD Ot V72.84 EXAM PRE-OPERATIVE NOS 09/06/2016 DAPHNIE [...] Munoz Ot I63.9 CEREBRAL INFARCTION, UNSPECIFIED 09/06/2016 MICHELLE WOODS, DOMI Munoz Ot I73.9 PERIPHERAL VASCULAR DISEASE, UNSPECIFIED 09/07/2016 LAZARO DO SANDY Ot D64.9 ANEMIA, UNSPECIFIED 09/07/2016 LAZARO DO SANDY Ot E78.5 HYPERLIPIDEMIA, UNSPECIFIED 09/07/2016 SANDY WILLIS DO Ot E86.0 DEHYDRATION 09/07/2016 SANDY WILLIS DO Ot F41.9 ANXIETY DISORDER, UNSPECIFIED 09/07/2016 SANDY [...] LOSS 09/07/2016 SANDY WILLIS DO Ot Z79.82 SHELTER (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 OF ASPIRIN 09/07/2016 SANDY WILLIS DO Ot Z79.899 OTHER PROFESSOR COMPUTER SCIENCE (CURRENT) DRUG THERAPY 09/07/2016 SANDY WILLIS DO [...] W 780.8 GENERALIZED HYPERHIDROSIS 11/30/2016 TELLO WILKINSON E21.0 PRIMARY HYPERPARATHYROIDISM 11/30/2016 TELLO WILKINSON W M79.7 FIBROMYALGIA 11/30/2016 TELLO WILKINSON W R54 AGE-RELATED PHYSICAL DEBILITY 11/30/2016 TELLO WILKINSON W R61 GENERALIZED HYPERHIDROSIS 11/30/2016 TELLO WILKINSON W 252.01 PRIMARY HYPERPARATHYROIDISM 11/30/2016 TELLO WILKINSON W 729.1 MYALGIA AND MYOSITIS, UNSPECIFIED 11/30/2016 TELLO WILKINSON W 780.79 OTHER MALAISE AND FATIGUE 11/30/2016 TELLO WILKINSON W 780.8 GENERALIZED HYPERHIDROSIS 11/30/2016 TELLO WILKINSON E21.0 PRIMARY HYPERPARATHYROIDISM 11/30/2016 TELLO WILKINSON M79.7 FIBROMYALGIA 11/30/2016 TELLO WILKINSON Theodora R54 [...] OTHER SEQUELAE OF CEREBRAL INFARCTION 01/04/2017 EDWIN WILLIS DOI Ot 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 01/04/2017 WILLISSANDY CULP DO Ot J30.2 OTHER SEASONAL ALLERGIC RHINITIS 01/04/2017 SANDY WILLIS DO Ot K21.9 GASTRO-ESOPHAGEAL REFLUX DISEASE WITHOUT 01/04/2017 WILLISSANDY CULP DO Ot M19.91 PRIMARY OSTEOARTHRITIS, UNSPECIFIED SITE 01/04/2017 WILLISSANDY CULP DO Ot R01.1 CARDIAC MURMUR, UNSPECIFIED 01/04/2017 WILLISSANDY CULP DO Ot R29.702 NIHSS SCORE 2 01/04/2017 WILLISSANDY CULP DO Ot Z79.02 PROFESSOR COMPUTER SCIENCE (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 OF ANTITHROMBOTI 01/04/2017 WILLISSANDY CULP DO Ot Z86.73 PRSNL HX OF TIA (TIA), AND CEREB INFRC W 01/04/2017 WILLISSANDY CULP DO Ot Z87.11 PERSONAL HISTORY OF PEPTIC ULCER DISEASE 03/07/2017 TELLO WILKINSON 272.4 OTHER AND UNSPECIFIED [...] EXAMINATION 05/17/2017 ERNESTO FRITZ MD Ot V72.81 [id number] CARDIOVASCULAR 05/17/2017 ERNESTO FRITZ MD Ot V72.83 EXAM PRE-OPERATIVE NEC 05/17/2017 ERNESTO FRITZ MD Ot V74.8 SCREEN-BACTERIAL DIS NEC 05/17/2017 ERNESTO FRITZ MD Ot V72.84 EXAM PRE-OPERATIVE NOS 05/17/2017 CATRINA WOODS, ERNESTO S Ot 530.81 ESOPHAGEAL REFLUX 05/17/2017 ERNESTO FRITZ MD S Ot V45.89 POSTSURGICAL STATES NEC 05/17/2017 ERNESTO FRITZ MD S Ot V72.84 EXAM PRE-OPERATIVE NOS 05/17/2017 CATRINA WOODS, ERNESTO S Ot 530.11 REFLUX ESOPHAGITIS 05/17/2017 ERNESTO FRITZ MD S Ot V45.89 POSTSURGICAL STATES NEC 05/17/2017 ERNESTO [...] 05/19/2017 DOMI MARTINEZ MD Ot Z79.899 OTHER SHELTER (CURRENT) DRUG THERAPY 05/19/2017 DOMI MARTINEZ MD [...] 05/24/2017 DOMI MARTINEZ MD Ot Z79.899 OTHER SHELTER (CURRENT) DRUG THERAPY 05/24/2017 DOMI MARTINEZ MD [...] 06/08/2017 DOMI MARTINEZ MD Ot Z79.899 OTHER SHELTER (CURRENT) DRUG THERAPY 06/08/2017 DOMI MARTINEZ MD Ot Z87.891 PERSONAL HISTORY OF NICOTINE DEPENDENCE 11/26/2017 ERIK MENDEZ MD, Ot D64.9 ANEMIA, UNSPECIFIED 11/26/2017 ERIK MENDEZ MD Ot F41.9 ANXIETY DISORDER, UNSPECIFIED 11/26/2017 ERIK MENDEZ MD Ot I10 ESSENTIAL (PRIMARY) HYPERTENSION 11/26/2017 ERIK MENDEZ MD Ot M41.86 OTHER FORMS OF SCOLIOSIS, LUMBAR REGION 11/26/2017 ERIK MENDEZ MD Ot M54.5 LOW BACK PAIN 11/26/2017 ERIK MENDEZ MD Ot M54.6 PAIN IN THORACIC SPINE 11/26/2017 ERIK MENDEZ MD Ot Z79.02 SHELTER (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 OF ANTITHROMBOTI 11/26/2017 ERIK MENDEZ MD Ot Z79.82 PROFESSOR COMPUTER SCIENCE (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 OF ASPIRIN 11/26/2017 ERIK MENDEZ MD Ot Z80.3 FAMILY HISTORY OF MALIGNANT NEOPLASM OF 11/26/2017 ERIK MENDEZ MD Ot Z86.73 PRSNL HX OF TIA (TIA), AND CEREB INFRC W 11/26/2017 ERIK MENDEZ MD Ot Z87.19 PERSONAL HISTORY OF OTHER DISEASES OF TH 11/26/2017 ERIK MENDEZ MD Ot Z87.891 PERSONAL HISTORY [...] SPINE 11/29/2017 ERIK MENDEZ MD Ot Z79.02 PROFESSOR COMPUTER SCIENCE (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 OF ANTITHROMBOTI 11/29/2017 ERIK MENDEZ MD Ot Z79.82 SHELTER (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 OF ASPIRIN 11/29/2017 ERIK MENDEZ [...] SPINE 12/02/2017 ERIK MENDEZ MD Ot Z79.02 SHELTER (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 OF ANTITHROMBOTI 12/02/2017 ERIK MENDEZ MD Ot Z79.82 SHELTER (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 OF ASPIRIN 12/02/2017 ERIK MENDEZ [...] ABSENCE OF OTHER ORGANS 12/16/2017 EDILMA BROWNING FLORICULTURE TEACHER Ot M54.5 LOW BACK PAIN 12/16/2017 EDILMA BROWNING FLORICULTURE TEACHER Ot R26.89 OTHER ABNORMALITIES OF GAIT AND MOBILITY 12/18/2017 EDILMA BROWNING FLORICULTURE TEACHER Ot M54.5 LOW BACK PAIN 12/18/2017 EDILMA BROWNING FLORICULTURE TEACHER Ot R26.89 OTHER ABNORMALITIES OF GAIT AND MOBILITY 12/19/2017 EDILMA BROWNING FLORICULTURE TEACHER Ot M54.5 LOW BACK PAIN 12/19/2017 EDILMA BROWNING FLORICULTURE TEACHER Ot R26.89 OTHER ABNORMALITIES OF GAIT AND MOBILITY 12/21/2017 EDILMA BROWNING FLORICULTURE TEACHER Ot M54.5 LOW BACK PAIN 12/21/2017 EDILMA BROWNING FLORICULTURE TEACHER Ot R26.89 OTHER ABNORMALITIES OF GAIT AND MOBILITY 12/23/2017 EDILMA BROWNING FLORICULTURE TEACHER Ot M54.5 LOW BACK PAIN 12/23/2017 EDILMA BROWNING FLORICULTURE TEACHER Ot R26.89 OTHER ABNORMALITIES OF GAIT AND MOBILITY 01/19/2018 EDILMA BROWNING FLORICULTURE TEACHER Ot M54.5 LOW BACK PAIN 01/19/2018 EDILMA BROWNING FLORICULTURE TEACHER Ot R26.89 OTHER ABNORMALITIES OF GAIT AND MOBILITY 01/24/2018 KANDY OLIVEIRA MD Ot F41.9 ANXIETY DISORDER, UNSPECIFIED 01/24/2018 KANDY OLIVEIRA MD Ot I10 ESSENTIAL (PRIMARY) HYPERTENSION 01/24/2018 KANDY OLIVEIRA MD Ot R19.7 DIARRHEA, UNSPECIFIED 01/24/2018 KANDY OLIVEIRA MD Ot 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 01/24/2018 KANDY OLIVEIRA MD Ot Z79.02 PROFESSOR COMPUTER SCIENCE (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 OF ANTITHROMBOTI 01/24/2018 KANDY OLIVEIRA MD Ot Z79.82 SHELTER (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 OF ASPIRIN 01/24/2018 KANDY OLIVEIRA MD Ot Z80.3 FAMILY HISTORY OF MALIGNANT NEOPLASM OF 01/24/2018 KANDY OLIVEIRA MD Ot Z86.73 PRSNL HX OF TIA (TIA), AND CEREB INFRC W 01/24/2018 KANDY OLIVEIRA MD Ot Z87.19 PERSONAL HISTORY OF OTHER DISEASES OF TH 01/24/2018 KANDY OLIVEIRA MD Ot Z87.891 PERSONAL HISTORY OF NICOTINE DEPENDENCE 01/24/2018 KANDY OLIVEIRA MD Ot Z90.49 ACQUIRED ABSENCE OF OTHER SPECIFIED PART 01/24/2018 KANDY OLIVEIRA MD Ot Z90.89 ACQUIRED ABSENCE OF OTHER ORGANS 01/27/2018 KANDY OLIVEIRA MD Ot F41.9 ANXIETY DISORDER, UNSPECIFIED 01/27/2018 KANDY OLIVEIRA MD Ot I10 ESSENTIAL (PRIMARY) HYPERTENSION 01/27/2018 KANDY OLIVEIRA MD Ot R19.7 DIARRHEA, UNSPECIFIED 01/27/2018 KANDY OLIVEIRA MD Ot 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 01/27/2018 KANDY OLIVEIRA MD Ot Z79.02 SHELTER (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 OF ANTITHROMBOTI 01/27/2018 KANDY OLIVEIRA MD Ot Z79.82 SHELTER (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 OF ASPIRIN 01/27/2018 KANDY OLIVEIRA MD Ot Z80.3 FAMILY HISTORY OF MALIGNANT NEOPLASM OF 01/27/2018 KANDY OLIVEIRA MD, Ot Z86.73 PRSNL HX OF TIA (TIA), AND CEREB INFRC W 01/27/2018 KANDY OLIVEIRA MD, Ot Z87.19 PERSONAL HISTORY OF OTHER DISEASES OF TH 01/27/2018 KANDY OLIVEIRA MD, Ot Z87.891 PERSONAL HISTORY OF NICOTINE DEPENDENCE 01/27/2018 KANDY OLIVEIRA MD, Ot Z90.49 ACQUIRED ABSENCE OF OTHER SPECIFIED PART 01/27/2018 KANDY OLIVEIRA MD Ot Z90.89 ACQUIRED ABSENCE OF OTHER ORGANS 02/08/2018 REJI WOODS, SALAS Katz Ot R19.7 DIARRHEA, UNSPECIFIED 02/28/2018 ERNESTO FRITZ MD Ot 429.3 CARDIOMEGALY 02/28/2018 ERNESTO FRITZ MD Ot 530.81 ESOPHAGEAL REFLUX 02/28/2018 ERNESTO FRITZ MD Ot V72.63 PRE-PROCEDURAL LABORATORY EXAMINATION 02/28/2018 ERNESTO FRITZ MD Ot V72.81 [id number] CARDIOVASCULAR 02/28/2018 ERNESTO FRITZ MD Ot V72.83 EXAM PRE-OPERATIVE NEC 02/28/2018 ERNESTO FRITZ MD Ot V74.8 SCREEN-BACTERIAL DIS NEC 02/28/2018 ERNESTO FRITZ MD Ot V72.84 EXAM PRE-OPERATIVE NOS 02/28/2018 CATRINA WOODS, ERNESTO S Ot 530.81 ESOPHAGEAL REFLUX 02/28/2018 CATRINA WOODS, ERNESTO Hernandez Ot V45.89 POSTSURGICAL STATES NEC 02/28/2018 CATRINA WOODS, ERNESTO S Ot V72.84 EXAM PRE-OPERATIVE NOS 02/28/2018 CATRINA WOODS, ERNESTO S Ot 530.11 REFLUX ESOPHAGITIS 02/28/2018 ERNESTO FRITZ MD Ot V45.89 POSTSURGICAL STATES NEC 02/28/2018 CATRINA WOODS, ERNESTO Hernandez Ot V72.84 EXAM PRE-OPERATIVE NOS 02/28/2018 DAPHNIE ODELL Ot 272.4 HYPERLIPIDEMIA NEC/NOS 02/28/2018 DAPHNIE ODELL Ot 397.0 TRICUSPID VALVE DISEASE 02/28/2018 DAPHNIE ODELL Ot 401.9 HYPERTENSION NOS 02/28/2018 DAPHNIE ODELL K Ot 424.0 MITRAL VALVE DISORDER 02/28/2018 DAPHNIE ODELL Ot 786.09 RESPIRATORY ABNORM NEC 02/28/2018 MINH WOODS, TELLO Razo Ot 585.3 CHRONIC KIDNEY DISEASE, STAGE III (MODER 02/28/2018 DOMI MARTINEZ MD Ot E78.5 HYPERLIPIDEMIA, UNSPECIFIED 02/28/2018 DOMI MARTINEZ MD Ot I10 ESSENTIAL (PRIMARY) HYPERTENSION 02/28/2018 DOMI MARTINEZ MD Ot I63.9 CEREBRAL INFARCTION, UNSPECIFIED 02/28/2018 DOMI MARTINEZ MD Ot I73.9 PERIPHERAL VASCULAR DISEASE, UNSPECIFIED 02/28/2018 TELLO WILKINSON MD Ot I12.9 HYPERTENSIVE CHRONIC KIDNEY DISEASE W ST 02/28/2018 TELLO WILKINSON MD Ot N18.9 CHRONIC KIDNEY DISEASE, UNSPECIFIED 02/28/2018 DOMI MARTINEZ MD Ot E78.5 HYPERLIPIDEMIA, UNSPECIFIED 02/28/2018 DOMI MARTINEZ MD Ot F32.9 MAJOR DEPRESSIVE DISORDER, SINGLE EPISOD 02/28/2018 DOMI MARTINEZ MD Ot I10 ESSENTIAL (PRIMARY) HYPERTENSION 02/28/2018 DOMI MARTINEZ MD Ot I63.9 CEREBRAL INFARCTION, UNSPECIFIED 02/28/2018 DOMI MARTINEZ MD Ot I65.23 OCCLUSION AND STENOSIS OF BILATERAL SENA 02/28/2018 MICHELLE WOODS, DOMI Munoz Ot Z79.899 OTHER PROFESSOR COMPUTER SCIENCE (CURRENT) DRUG THERAPY 02/28/2018 MICHELLE WOODS, DOMI Munoz Ot Z87.891 PERSONAL HISTORY OF NICOTINE DEPENDENCE 02/28/2018 REJI WOODS, SALAS Katz Ot R19.7 DIARRHEA, UNSPECIFIED 03/01/2018 NIKOS MAZARIEGOS INSTRUCTOR PROGRAMMABLE CONTROLLERS Ot R19.7 DIARRHEA, UNSPECIFIED 03/01/2018 NIKOS MAZARIEGOS INSTRUCTOR PROGRAMMABLE CONTROLLERS Ot R63.5 ABNORMAL WEIGHT GAIN 03/02/2018 NIKOS MAZARIEGOS INSTRUCTOR PROGRAMMABLE CONTROLLERS Ot M41.86 OTHER FORMS OF SCOLIOSIS, LUMBAR REGION 03/02/2018 NIKOS MAZARIEGOS INSTRUCTOR PROGRAMMABLE CONTROLLERS Ot M43.16 SPONDYLOLISTHESIS, LUMBAR REGION 03/02/2018 NIKOS MAZARIEGOS INSTRUCTOR PROGRAMMABLE CONTROLLERS Ot M46.87 OTH INFLAMMATORY SPONDYLOPATHIES, LUMBOS 03/02/2018 NIKOS MAZARIEGOS INSTRUCTOR PROGRAMMABLE CONTROLLERS Ot M48.07 SPINAL STENOSIS, LUMBOSACRAL REGION 03/02/2018 NIKOS MAZARIEGOS INSTRUCTOR PROGRAMMABLE CONTROLLERS Ot M51.27 OTHER INTERVERTEBRAL DISC DISPLACEMENT, 03/02/2018 NIKOS MAZARIEGOS INSTRUCTOR PROGRAMMABLE CONTROLLERS Ot M51.36 OTHER INTERVERTEBRAL DISC DEGENERATION, 03/02/2018 NIKOS MAZARIEGOS INSTRUCTOR PROGRAMMABLE CONTROLLERS Ot R15.9 FULL INCONTINENCE OF FECES 03/10/2018 NIKOS MAZARIEGOS INSTRUCTOR PROGRAMMABLE CONTROLLERS Ot M41.86 OTHER FORMS OF SCOLIOSIS, LUMBAR REGION 03/10/2018 NIKOS MAZARIEGOS INSTRUCTOR PROGRAMMABLE CONTROLLERS Ot M43.16 SPONDYLOLISTHESIS, LUMBAR REGION 03/10/2018 NIKOS MAZARIEGOS INSTRUCTOR PROGRAMMABLE CONTROLLERS Ot M46.87 OTH INFLAMMATORY SPONDYLOPATHIES, LUMBOS 03/10/2018 NIKOS MAZARIEGOS INSTRUCTOR PROGRAMMABLE CONTROLLERS Ot M48.07 SPINAL STENOSIS, LUMBOSACRAL REGION 03/10/2018 NIKOS MAZARIEGOS INSTRUCTOR PROGRAMMABLE CONTROLLERS Ot M51.27 OTHER INTERVERTEBRAL DISC DISPLACEMENT, 03/10/2018 NIKOS MAZARIEGOS INSTRUCTOR PROGRAMMABLE CONTROLLERS Ot M51.36 OTHER INTERVERTEBRAL DISC DEGENERATION, 03/10/2018 NIKOS MAZARIEGOS INSTRUCTOR PROGRAMMABLE CONTROLLERS Ot R15.9 FULL INCONTINENCE OF FECES 03/10/2018 NIKOS MAZARIEGOS INSTRUCTOR PROGRAMMABLE CONTROLLERS Ot R19.7 DIARRHEA, UNSPECIFIED 03/10/2018 NIKOS MAZARIEGOS INSTRUCTOR PROGRAMMABLE CONTROLLERS Ot R63.5 ABNORMAL WEIGHT GAIN 05/01/2018 CATRINA WOODS, ERNESTO S Ot 530.81 ESOPHAGEAL REFLUX 05/01/2018 CATRINA WOODS, ERNESTO Hernandez Ot V45.89 POSTSURGICAL STATES NEC 05/01/2018 ERNESTO FRITZ MD Ot V72.84 EXAM PRE-OPERATIVE NOS 05/01/2018 CATRINA WOODS, ERNESTO Hernandez Ot 530.11 REFLUX ESOPHAGITIS 05/01/2018 ERNESTO FRITZ MD Ot V45.89 POSTSURGICAL STATES NEC 05/01/2018 ERNESTO FRITZ MD Ot V72.84 EXAM PRE-OPERATIVE NOS 05/01/2018 LON CULVER, DAPHNIE K Ot 272.4 HYPERLIPIDEMIA NEC/NOS 05/01/2018 DAPHNIE ODELL K Ot 397.0 TRICUSPID VALVE DISEASE 05/01/2018 DAPHNIE ODELL K Ot 401.9 HYPERTENSION NOS 05/01/2018 DAPHNIE ODELL K Ot 424.0 MITRAL VALVE DISORDER 05/01/2018 DAPHNIE ODELL K Ot 786.09 RESPIRATORY ABNORM NEC 05/01/2018 MINH WOODS, TELLO Razo Ot 585.3 CHRONIC KIDNEY DISEASE, STAGE III (MODER 05/01/2018 DOMI MARTINEZ MD Ot E78.5 HYPERLIPIDEMIA, UNSPECIFIED 05/01/2018 DOMI MARTINEZ MD Ot I10 ESSENTIAL (PRIMARY) HYPERTENSION 05/01/2018 DOMI MARTINEZ MD Ot I63.9 CEREBRAL INFARCTION, UNSPECIFIED 05/01/2018 DOMI MARTINEZ MD Ot I73.9 PERIPHERAL VASCULAR DISEASE, UNSPECIFIED 05/01/2018 MINH WOODS, TELLO Razo Ot I12.9 HYPERTENSIVE CHRONIC KIDNEY DISEASE W ST 05/01/2018 TELLO WILKINSON MD Ot N18.9 CHRONIC KIDNEY DISEASE, UNSPECIFIED 05/01/2018 DOMI MARTINEZ MD Ot E78.5 HYPERLIPIDEMIA, UNSPECIFIED 05/01/2018 DOMI MARTINEZ MD Ot F32.9 MAJOR DEPRESSIVE DISORDER, SINGLE EPISOD 05/01/2018 DOMI MARTINEZ MD Ot I10 ESSENTIAL (PRIMARY) HYPERTENSION 05/01/2018 DOMI MARTINEZ MD Ot I63.9 CEREBRAL INFARCTION, UNSPECIFIED 05/01/2018 DOMI MARTINEZ MD Ot I65.23 OCCLUSION AND STENOSIS OF BILATERAL SENA 05/01/2018 MICHELLE WOODS, DOMI Munoz Ot Z79.899 OTHER PROFESSOR COMPUTER SCIENCE (CURRENT) DRUG THERAPY 05/01/2018 MICHELLE WOODS, DOMI Munoz Ot Z87.891 PERSONAL HISTORY OF NICOTINE DEPENDENCE 05/01/2018 REJI WOODS, SALAS Gianna Ot R19.7 DIARRHEA, UNSPECIFIED 05/01/2018 NIKOS MAZARIEGOS INSTRUCTOR PROGRAMMABLE CONTROLLERS Ot M41.86 OTHER FORMS OF SCOLIOSIS, LUMBAR REGION 05/01/2018 NIKOS MAZARIEGOS INSTRUCTOR PROGRAMMABLE CONTROLLERS Ot M43.16 SPONDYLOLISTHESIS, LUMBAR REGION 05/01/2018 NIKOS MAZARIEGOS INSTRUCTOR PROGRAMMABLE CONTROLLERS Ot M46.87 OTH INFLAMMATORY SPONDYLOPATHIES, LUMBOS 05/01/2018 NIKOS MAZARIEGOS INSTRUCTOR PROGRAMMABLE CONTROLLERS Ot M48.07 SPINAL STENOSIS, LUMBOSACRAL REGION 05/01/2018 NIKOS MAZARIEGOS INSTRUCTOR PROGRAMMABLE CONTROLLERS Ot M51.27 OTHER INTERVERTEBRAL DISC DISPLACEMENT, 05/01/2018 NIKOS MAZARIEGOS INSTRUCTOR PROGRAMMABLE CONTROLLERS Ot M51.36 OTHER INTERVERTEBRAL DISC DEGENERATION, 05/01/2018 NIKOS MAZARIEGOS INSTRUCTOR PROGRAMMABLE CONTROLLERS Ot R15.9 FULL INCONTINENCE OF FECES 05/01/2018 NIKOS MAZARIEGOS INSTRUCTOR PROGRAMMABLE CONTROLLERS Ot R19.7 DIARRHEA, UNSPECIFIED 05/01/2018 NIKOS MAZARIEGOS INSTRUCTOR PROGRAMMABLE CONTROLLERS Ot R63.5 ABNORMAL WEIGHT GAIN 05/01/2018 LAZARO ALEXANDER SANDY Ot D64.9 ANEMIA, UNSPECIFIED 05/01/2018 LAZARO ALEXANDER SANDY Ot E78.2 MIXED HYPERLIPIDEMIA 05/01/2018 LAZARO ALEXANDER SANDY Ot F32.9 MAJOR DEPRESSIVE DISORDER, SINGLE EPISOD 05/01/2018 LAZARO ALEXANDER SANDY Ot F41.9 ANXIETY DISORDER, UNSPECIFIED 05/01/2018 LAZARO ALEXANDER SANDY Ot G81.94 HEMIPLEGIA, UNSPECIFIED AFFECTING LEFT N 05/01/2018 LAZARO ALEXANDER SANDY Ot H40.9 UNSPECIFIED GLAUCOMA 05/01/2018 LAZARO ALEXANDER SANDY Ot I10 ESSENTIAL (PRIMARY) HYPERTENSION 05/01/2018 LAZARO ALEXANDER SANDY Ot I48.0 PAROXYSMAL ATRIAL FIBRILLATION 05/01/2018 EDWIN WILLIS DOI Ot 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 05/01/2018 LAZARO ALEXANDER SANDY Ot I65.23 OCCLUSION AND STENOSIS OF BILATERAL SENA 05/01/2018 EDWIN WILLIS DOI Ot 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 05/01/2018 SANDY WILLIS DO Ot K44.9 DIAPHRAGMATIC HERNIA WITHOUT OBSTRUCTION 05/01/2018 SANDY WILLIS DO Ot M06.9 RHEUMATOID ARTHRITIS, UNSPECIFIED 05/01/2018 LAZARO ALEXANDER SANDY Ot M19.91 PRIMARY OSTEOARTHRITIS, UNSPECIFIED SITE 05/01/2018 SANDY WILLIS DO Ot M54.9 DORSALGIA, UNSPECIFIED 05/01/2018 EDWIN WILLIS DOI Ot M62.838 OTHER MUSCLE SPASM 05/01/2018 EDWIN WILLIS DOI Ot M79.7 FIBROMYALGIA 05/01/2018 EDWIN WILLIS DOI Ot N18.9 CHRONIC KIDNEY DISEASE, UNSPECIFIED 05/01/2018 SANDY WILLIS DO Ot Q21.1 ATRIAL SEPTAL DEFECT 05/01/2018 EDWIN WILLIS DOI Ot R29.705 NIHSS SCORE 5 05/01/2018 SANDY WILLIS DO Ot 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 05/01/2018 EDWIN WILLIS DOI Ot Z87.891 PERSONAL HISTORY OF NICOTINE DEPENDENCE 05/01/2018 EDWIN WILLIS DOI Ot D64.9 ANEMIA, UNSPECIFIED 05/01/2018 EDWIN WILLIS DOI Ot E78.2 MIXED HYPERLIPIDEMIA 05/01/2018 EDWIN WILLIS DOI Ot F32.9 MAJOR DEPRESSIVE DISORDER, SINGLE EPISOD 05/01/2018 LAZARO ALEXANDER SANDY Ot F41.9 ANXIETY DISORDER, UNSPECIFIED 05/01/2018 EDWIN WILLIS DOI Ot G81.94 HEMIPLEGIA, UNSPECIFIED AFFECTING LEFT N 05/01/2018 EDWIN WILLIS DOI Ot H40.9 UNSPECIFIED GLAUCOMA 05/01/2018 LAZARO ALEXANDER SANDY Ot I10 ESSENTIAL (PRIMARY) HYPERTENSION 05/01/2018 EDWIN WILLIS DOI Ot I48.0 PAROXYSMAL ATRIAL FIBRILLATION 05/01/2018 EDWIN WILLIS DOI Ot 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 05/01/2018 LAZARO ALEXANDER SANDY Ot I65.23 OCCLUSION AND STENOSIS OF BILATERAL SENA 05/01/2018 EDWIN WILLIS DOI Ot 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 05/01/2018 SANDY WILLIS DO Ot K44.9 DIAPHRAGMATIC HERNIA WITHOUT OBSTRUCTION 05/01/2018 SANDY WILLIS DO Ot M06.9 RHEUMATOID ARTHRITIS, UNSPECIFIED 05/01/2018 SANDY WILLIS DO Ot M19.91 PRIMARY OSTEOARTHRITIS, UNSPECIFIED SITE 05/01/2018 SANDY WILLIS DO Ot M54.9 DORSALGIA, UNSPECIFIED 05/01/2018 EDWIN WILLIS DOI Ot M62.838 OTHER MUSCLE SPASM 05/01/2018 SANDY WILLIS DO Ot M79.7 FIBROMYALGIA 05/01/2018 SANDY WILLIS DO Ot N18.9 CHRONIC KIDNEY DISEASE, UNSPECIFIED 05/01/2018 SANDY WILLIS DO Ot Q21.1 ATRIAL SEPTAL DEFECT 05/01/2018 SANDY WILLIS DO Ot R29.705 NIHSS SCORE 5 05/01/2018 SANDY WILLIS DO Ot 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 05/01/2018 SANDY WILLIS DO Ot Z87.891 PERSONAL HISTORY OF NICOTINE DEPENDENCE 05/01/2018 SANDY WILLIS DO Ot D64.9 ANEMIA, UNSPECIFIED 05/01/2018 EDWIN WILLIS DOI Ot E78.2 MIXED HYPERLIPIDEMIA 05/01/2018 SANDY WILLIS DO Ot F32.9 MAJOR DEPRESSIVE DISORDER, SINGLE EPISOD 05/01/2018 SANDY WILLIS DO Ot F41.9 ANXIETY DISORDER, UNSPECIFIED 05/01/2018 EDWIN WILLIS DOI Ot G81.94 HEMIPLEGIA, UNSPECIFIED AFFECTING LEFT N 05/01/2018 EDWIN WILLIS DOI Ot H40.9 UNSPECIFIED GLAUCOMA 05/01/2018 EDWIN WILLIS DOI Ot I10 ESSENTIAL (PRIMARY) HYPERTENSION 05/01/2018 EDWIN WILLIS DOI Ot I48.0 PAROXYSMAL ATRIAL FIBRILLATION 05/01/2018 EDWIN WILLIS DOI Ot 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 05/01/2018 SANDY WILLIS DO Ot I65.23 OCCLUSION AND STENOSIS OF BILATERAL SENA 05/01/2018 EDWIN WILLIS DOI Ot 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 05/01/2018 SANDY WILLIS DO Ot K44.9 DIAPHRAGMATIC HERNIA WITHOUT OBSTRUCTION 05/01/2018 SANDY WILLIS DO Ot M06.9 RHEUMATOID ARTHRITIS, UNSPECIFIED 05/01/2018 EDWIN WILLIS DOI Ot M19.91 PRIMARY OSTEOARTHRITIS, UNSPECIFIED SITE 05/01/2018 SANDY WILLIS DO Ot M54.9 DORSALGIA, UNSPECIFIED 05/01/2018 EDWIN WILLIS DOI Ot M62.838 OTHER MUSCLE SPASM 05/01/2018 EDWIN WILLIS DOI Ot M79.7 FIBROMYALGIA 05/01/2018 LAZARO ALEXANDER SANDY Ot N18.9 CHRONIC KIDNEY DISEASE, UNSPECIFIED 05/01/2018 EDWIN WILLIS DOI Ot Q21.1 ATRIAL SEPTAL DEFECT 05/01/2018 EDWIN WILLIS DOI Ot R29.705 NIHSS SCORE 5 05/01/2018 SANDY WILLIS DO Ot 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 05/01/2018 SANDY WILLIS DO Ot Z87.891 PERSONAL HISTORY OF NICOTINE DEPENDENCE 05/02/2018 EDWIN WILLIS DOI Ot D64.9 ANEMIA, UNSPECIFIED 05/02/2018 EDWIN WILLIS DOI Ot E78.2 MIXED HYPERLIPIDEMIA 05/02/2018 EDWIN WILLIS DOI Ot F32.9 MAJOR DEPRESSIVE DISORDER, SINGLE EPISOD 05/02/2018 EDWIN WILLIS DOI Ot F41.9 ANXIETY DISORDER, UNSPECIFIED 05/02/2018 EDWIN WILLIS DOI Ot G81.94 HEMIPLEGIA, UNSPECIFIED AFFECTING LEFT N 05/02/2018 EDWIN WILLIS DOI Ot H40.9 UNSPECIFIED GLAUCOMA 05/02/2018 LAZARO ALEXANDER SANDY Ot I10 ESSENTIAL (PRIMARY) HYPERTENSION 05/02/2018 LAZARO ALEXANDER SANDY Ot I48.0 PAROXYSMAL ATRIAL FIBRILLATION 05/02/2018 EDWIN WILLIS DOI Ot 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 05/02/2018 LAZARO ALEXANDER SANDY Ot I65.23 OCCLUSION AND STENOSIS OF BILATERAL SENA 05/02/2018 EDWIN WILLIS DOI Ot 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 05/02/2018 EDWIN WILLIS DOI Ot K44.9 DIAPHRAGMATIC HERNIA WITHOUT OBSTRUCTION 05/02/2018 LAZARO ALEXANDER SANDY Ot M06.9 RHEUMATOID ARTHRITIS, UNSPECIFIED 05/02/2018 LAZARO ALEXANDER SANDY Ot M19.91 PRIMARY OSTEOARTHRITIS, UNSPECIFIED SITE 05/02/2018 EDWIN WILLIS DOI Ot M54.9 DORSALGIA, UNSPECIFIED 05/02/2018 EDWIN WILLIS DOI Ot M62.838 OTHER MUSCLE SPASM 05/02/2018 SANDY WILLIS DO Ot M79.7 FIBROMYALGIA 05/02/2018 SANDY WILLIS DO Ot N18.9 CHRONIC KIDNEY DISEASE, UNSPECIFIED 05/02/2018 EDWIN WILLIS DOI Ot Q21.1 ATRIAL SEPTAL DEFECT 05/02/2018 SANDY WILLIS DO Ot R29.705 NIHSS SCORE 5 05/02/2018 SANDY WILLIS DO Ot 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 05/02/2018 EDWIN WILLIS DOI Ot Z87.891 PERSONAL HISTORY OF NICOTINE DEPENDENCE 05/03/2018 SANDY WILLIS DO Ot D64.9 ANEMIA, UNSPECIFIED 05/03/2018 EDWIN WILLIS DOI Ot E78.2 MIXED HYPERLIPIDEMIA 05/03/2018 EDWIN WILLIS DOI Ot F32.9 MAJOR DEPRESSIVE DISORDER, SINGLE EPISOD 05/03/2018 SANDY WILLIS DO Ot F41.9 ANXIETY DISORDER, UNSPECIFIED 05/03/2018 EDWIN WILLIS DOI Ot G81.94 HEMIPLEGIA, UNSPECIFIED AFFECTING LEFT N 05/03/2018 EDWIN WILLIS DOI Ot H40.9 UNSPECIFIED GLAUCOMA 05/03/2018 EDWIN WILLIS DOI Ot I10 ESSENTIAL (PRIMARY) HYPERTENSION 05/03/2018 EDWIN WILLIS DOI Ot I48.0 PAROXYSMAL ATRIAL FIBRILLATION 05/03/2018 EDWIN WILLIS DOI Ot 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 05/03/2018 EDWIN WILLIS DOI Ot I65.23 OCCLUSION AND STENOSIS OF BILATERAL SENA 05/03/2018 EDWIN WILLIS DOI Ot 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 05/03/2018 EDWIN WILLIS DOI Ot K44.9 DIAPHRAGMATIC HERNIA WITHOUT OBSTRUCTION 05/03/2018 EDWIN WILLIS DOI Ot M06.9 RHEUMATOID ARTHRITIS, UNSPECIFIED 05/03/2018 EDWIN WILLIS DOI Ot M19.91 PRIMARY OSTEOARTHRITIS, UNSPECIFIED SITE 05/03/2018 EDWIN WILLIS DOI Ot M54.9 DORSALGIA, UNSPECIFIED 05/03/2018 EDWIN WILLIS DOI Ot M62.838 OTHER MUSCLE SPASM 05/03/2018 WILLIS DO, SANDY Ot M79.2 NEURALGIA AND NEURITIS, UNSPECIFIED 05/03/2018 EDWIN WILLIS DOI Ot M79.7 FIBROMYALGIA 05/03/2018 EDWIN WILLIS DOI Ot N18.9 CHRONIC KIDNEY DISEASE, UNSPECIFIED 05/03/2018 EDWIN WILLIS DOI Ot Q21.1 ATRIAL SEPTAL DEFECT 05/03/2018 EDWIN WILLIS DOI Ot R29.705 NIHSS SCORE 5 05/03/2018 EDWIN WILLIS DOI Ot R32 UNSPECIFIED URINARY INCONTINENCE 05/03/2018 SANDY WILLIS DO Ot 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 05/03/2018 LAZARO ALEXANDER SANDY Ot Z87.891 PERSONAL HISTORY OF NICOTINE DEPENDENCE 05/05/2018 EDWIN WILLIS DOI Ot E78.5 HYPERLIPIDEMIA, UNSPECIFIED 05/05/2018 LAZARO ALEXANDER SANDY Ot F32.9 MAJOR DEPRESSIVE DISORDER, SINGLE EPISOD 05/05/2018 LAZARO ALEXANDER SANDY Ot I12.9 HYPERTENSIVE CHRONIC KIDNEY DISEASE W ST 05/05/2018 EDWIN WILLIS DOI Ot I48.0 PAROXYSMAL ATRIAL FIBRILLATION 05/05/2018 EDWIN WILLIS DOI Ot I69.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 05/05/2018 EDWIN WILLIS DOI Ot 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 05/05/2018 EDWIN WILLIS DOI Ot K44.9 DIAPHRAGMATIC HERNIA WITHOUT OBSTRUCTION 05/05/2018 EDWIN WILLIS DOI Ot M06.9 RHEUMATOID ARTHRITIS, UNSPECIFIED 05/05/2018 EDWIN WILLIS DOI Ot M19.90 UNSPECIFIED OSTEOARTHRITIS, UNSPECIFIED 05/05/2018 EDWIN WILLIS DOI Ot N18.9 CHRONIC KIDNEY DISEASE, UNSPECIFIED 05/05/2018 EDWIN WILLIS DOI Ot R32 UNSPECIFIED URINARY INCONTINENCE 05/05/2018 EDWIN WILLIS DOI Ot 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 05/05/2018 EDWIN WILLIS DOI Ot Z87.891 PERSONAL HISTORY OF NICOTINE DEPENDENCE 05/08/2018 EDWIN WILLIS DOI Ot E78.5 HYPERLIPIDEMIA, UNSPECIFIED 05/08/2018 LAZARO ALEXANDER SANDY Ot F32.9 MAJOR DEPRESSIVE DISORDER, SINGLE EPISOD 05/08/2018 LAZARO ALEXANDER SANDY Ot I12.9 HYPERTENSIVE CHRONIC KIDNEY DISEASE W ST 05/08/2018 WILLIS DO, SANDY Ot I48.0 PAROXYSMAL ATRIAL FIBRILLATION 05/08/2018 WILLIS DO SANDY Ot I69.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 05/08/2018 WILLIS DO SANDY Ot 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 05/08/2018 WILLIS DO SANDY Ot K44.9 DIAPHRAGMATIC HERNIA WITHOUT OBSTRUCTION 05/08/2018 LAZARO DO SANDY Ot M06.9 RHEUMATOID ARTHRITIS, UNSPECIFIED 05/08/2018 WILLIS DO SANDY Ot M19.90 UNSPECIFIED OSTEOARTHRITIS, UNSPECIFIED 05/08/2018 WILLIS DO SANDY Ot N18.9 CHRONIC KIDNEY DISEASE, UNSPECIFIED 05/08/2018 LAZARO DO SANDY Ot R32 UNSPECIFIED URINARY INCONTINENCE 05/08/2018 LAZARO ALEXANDER SANDY Ot 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 05/08/2018 LAZARO ALEXANDER SANDY Ot Z87.891 PERSONAL HISTORY OF NICOTINE DEPENDENCE 05/08/2018 LAZARO ALEXANDER SANDY Ot E78.5 HYPERLIPIDEMIA, UNSPECIFIED 05/08/2018 LAZARO DO SANDY Ot F32.9 MAJOR DEPRESSIVE DISORDER, SINGLE EPISOD 05/08/2018 LAZARO DO SANDY Ot I12.9 HYPERTENSIVE CHRONIC KIDNEY DISEASE W ST 05/08/2018 LAZARO DO SANDY Ot I48.0 PAROXYSMAL ATRIAL FIBRILLATION 05/08/2018 LAZARO DO SANDY Ot I69.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 05/08/2018 LAZARO DO SANDY Ot 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 05/08/2018 LAZARO DO SANDY Ot K44.9 DIAPHRAGMATIC HERNIA WITHOUT OBSTRUCTION 05/08/2018 LAZARO DO SANDY Ot M06.9 RHEUMATOID ARTHRITIS, UNSPECIFIED 05/08/2018 LAZARO DO SANDY Ot M19.90 UNSPECIFIED OSTEOARTHRITIS, UNSPECIFIED 05/08/2018 LAZARO DO SANDY Ot N18.9 CHRONIC KIDNEY DISEASE, UNSPECIFIED 05/08/2018 LAZARO DO SANDY Ot R32 UNSPECIFIED URINARY INCONTINENCE 05/08/2018 LAZARO ALEXANDER SANDY Ot 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 05/08/2018 LAZARO ALEXANDER SANDY Ot Z87.891 PERSONAL HISTORY OF NICOTINE DEPENDENCE 05/09/2018 WILLIS DO, SANDY Ot E78.5 HYPERLIPIDEMIA, UNSPECIFIED 05/09/2018 WILLIS DO, SANDY Ot F32.9 MAJOR DEPRESSIVE DISORDER, SINGLE EPISOD 05/09/2018 WILLIS DO, SANDY Ot I12.9 HYPERTENSIVE CHRONIC KIDNEY DISEASE W ST 05/09/2018 WILLIS DO, SANDY Ot I48.0 PAROXYSMAL ATRIAL FIBRILLATION 05/09/2018 WILLIS DO, SANDY Ot I69.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 05/09/2018 WILLIS DO, SANDY Ot 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 05/09/2018 WILLIS DO SANDY Ot K44.9 DIAPHRAGMATIC HERNIA WITHOUT OBSTRUCTION 05/09/2018 WILLIS DO SANDY Ot M06.9 RHEUMATOID ARTHRITIS, UNSPECIFIED 05/09/2018 WILLIS DO SANDY Ot M19.90 UNSPECIFIED OSTEOARTHRITIS, UNSPECIFIED 05/09/2018 WILLIS DO SANDY Ot N18.9 CHRONIC KIDNEY DISEASE, UNSPECIFIED 05/09/2018 WILLIS DO SANDY Ot R32 UNSPECIFIED URINARY INCONTINENCE 05/09/2018 LAZARO ALEXANDER SANDY Ot 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 05/09/2018 LAZARO ALEXANDER SANDY Ot Z87.891 PERSONAL HISTORY OF NICOTINE DEPENDENCE 05/15/2018 LAZARO DO SANDY Ot E78.5 HYPERLIPIDEMIA, UNSPECIFIED 05/15/2018 LAZARO DO SANDY Ot F32.9 MAJOR DEPRESSIVE DISORDER, SINGLE EPISOD 05/15/2018 LAZARO DO SANDY Ot I12.9 HYPERTENSIVE CHRONIC KIDNEY DISEASE W ST 05/15/2018 LAZARO DO SANDY Ot I48.0 PAROXYSMAL ATRIAL FIBRILLATION 05/15/2018 LAZARO DO SANDY Ot I69.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 05/15/2018 WILLIS DO, SANDY Ot 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 05/15/2018 WILLIS DO, SANDY Ot K44.9 DIAPHRAGMATIC HERNIA WITHOUT OBSTRUCTION 05/15/2018 WILLIS DO SANDY Ot M06.9 RHEUMATOID ARTHRITIS, UNSPECIFIED 05/15/2018 WILLIS DO SANDY Ot M19.90 UNSPECIFIED OSTEOARTHRITIS, UNSPECIFIED 05/15/2018 WILLIS DO SANDY Ot N18.9 CHRONIC KIDNEY DISEASE, UNSPECIFIED 05/15/2018 WILLIS DO SANDY Ot R32 UNSPECIFIED URINARY INCONTINENCE 05/15/2018 SANDY WILLIS DO Ot 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 05/15/2018 SANDY WILLIS DO Ot Z87.891 PERSONAL HISTORY OF NICOTINE DEPENDENCE 05/18/2018 SANDY WILLIS DO Ot B96.20 UNSP ESCHERICHIA COLI THE CAUSE OF DI 05/18/2018 EDWIN WILLIS DOI Ot E78.5 HYPERLIPIDEMIA, UNSPECIFIED 05/18/2018 EDWIN WILLIS DOI Ot F32.9 MAJOR DEPRESSIVE DISORDER, SINGLE EPISOD 05/18/2018 EDWIN WILLIS DOI Ot F41.9 ANXIETY DISORDER, UNSPECIFIED 05/18/2018 EDWIN WILLIS DOI Ot I12.9 HYPERTENSIVE CHRONIC KIDNEY DISEASE W ST 05/18/2018 EDWIN WILLIS DOI Ot I48.0 PAROXYSMAL ATRIAL FIBRILLATION 05/18/2018 EDWIN WILLIS DOI Ot I69.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 05/18/2018 EDWIN WILLIS DOI Ot 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 05/18/2018 EDWIN WILLIS DOI Ot I69.398 OTHER SEQUELAE OF CEREBRAL INFARCTION 05/18/2018 EDWIN WILLIS DOI Ot K44.9 DIAPHRAGMATIC HERNIA WITHOUT OBSTRUCTION 05/18/2018 EDWIN WILLIS DOI Ot M06.9 RHEUMATOID ARTHRITIS, UNSPECIFIED 05/18/2018 LAZARO ALEXANDER SANDY Ot M19.90 UNSPECIFIED OSTEOARTHRITIS, UNSPECIFIED 05/18/2018 LAZARO ALEXANDER SANDY Ot N18.9 CHRONIC KIDNEY DISEASE, UNSPECIFIED 05/18/2018 EDWIN WILLIS DOI Ot N39.0 URINARY TRACT INFECTION, SITE NOT SPECIF 05/18/2018 EDWIN WILLIS DOI Ot R32 UNSPECIFIED URINARY INCONTINENCE 05/18/2018 LAZARO ALEXANDER SANDY Ot R33.9 RETENTION OF URINE, UNSPECIFIED 05/18/2018 LAZARO ALEXANDER SANDY Ot R41.4 NEUROLOGIC NEGLECT SYNDROME 05/18/2018 SANDY WILLIS DO Ot 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 05/18/2018 SANDY WILLIS DO Ot Z87.891 PERSONAL HISTORY OF NICOTINE DEPENDENCE 06/14/2018 CATRINA WOODS, ERNESTO Hernandez Ot 530.81 ESOPHAGEAL REFLUX 06/14/2018 CATRINA WOODS, ERNESTO Hernandez Ot V45.89 POSTSURGICAL STATES NEC 06/14/2018 ERNESTO FRITZ MD Ot V72.84 EXAM PRE-OPERATIVE NOS 06/14/2018 ERNESTO FRITZ MD Ot 530.11 REFLUX ESOPHAGITIS 06/14/2018 ERNESTO FRITZ MD Ot V45.89 POSTSURGICAL STATES NEC 06/14/2018 ERNESTO FRITZ MD Ot V72.84 EXAM PRE-OPERATIVE NOS 06/14/2018 LON CULVER, DAPHNIE K Ot 272.4 HYPERLIPIDEMIA NEC/NOS 06/14/2018 DAPHNIE ODELL Ot 397.0 TRICUSPID VALVE DISEASE 06/14/2018 DAPHNIE ODELL K Ot 401.9 HYPERTENSION NOS 06/14/2018 DAPHNIE ODELL K Ot 424.0 MITRAL VALVE DISORDER 06/14/2018 DAPHNIE ODELL K Ot 786.09 RESPIRATORY ABNORM NEC 06/14/2018 MINH WOODS, TELLO Razo Ot 585.3 CHRONIC KIDNEY DISEASE, STAGE III (MODER 06/14/2018 DOMI MARTINEZ MD Ot E78.5 HYPERLIPIDEMIA, UNSPECIFIED 06/14/2018 DOMI MARTINEZ MD Ot I10 ESSENTIAL (PRIMARY) HYPERTENSION 06/14/2018 DOMI MARTINEZ MD Ot I63.9 CEREBRAL INFARCTION, UNSPECIFIED 06/14/2018 DOMI MARTINEZ MD Ot I73.9 PERIPHERAL VASCULAR DISEASE, UNSPECIFIED 06/14/2018 MINH WOODS, TELLO Razo Ot I12.9 HYPERTENSIVE CHRONIC KIDNEY DISEASE W ST 06/14/2018 MINH WOODS, TELLO L Ot N18.9 CHRONIC KIDNEY DISEASE, UNSPECIFIED 06/14/2018 DOMI MARTINEZ MD Ot E78.5 HYPERLIPIDEMIA, UNSPECIFIED 06/14/2018 DOMI MARTINEZ MD Ot F32.9 MAJOR DEPRESSIVE DISORDER, SINGLE EPISOD 06/14/2018 DOMI MARTINEZ MD Ot I10 ESSENTIAL (PRIMARY) HYPERTENSION 06/14/2018 DOMI MARTINEZ MD Ot I63.9 CEREBRAL INFARCTION, UNSPECIFIED 06/14/2018 DOMI MARTINEZ MD Ot I65.23 OCCLUSION AND STENOSIS OF BILATERAL SENA 06/14/2018 DOMI MARTINEZ MD Ot 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27 OTHER INTERVERTEBRAL DISC DISPLACEMENT, 06/14/2018 NIKOS MAZARIEGOSP Ot M51.36 OTHER INTERVERTEBRAL DISC DEGENERATION, 06/14/2018 NIKOS MAZARIEGOS [employer] Ot R15.9 FULL INCONTINENCE OF FECES 06/14/2018 NIKOS MAZARIEGOSP Ot R19.7 DIARRHEA, UNSPECIFIED 06/14/2018 NIKOS MAZARIEGOS [employer] Ot R63.5 ABNORMAL WEIGHT GAIN 06/15/2018 MAYURI GARAY [employer] Ot E16.2 HYPOGLYCEMIA, UNSPECIFIED 06/20/2018 MAYURI GARAY [employer] Ot E16.2 HYPOGLYCEMIA, UNSPECIFIED Procedures Code Description Performed By Performed On 45.13 OTHER ENDOSCOPY OF SM INTEST 01/15/2009 99.10 INJECT/INFUSE THROMBOLYTIC AGENT 03/20/2014 [id number] INTRODUCE OTH THROMBOLYTIC IN PERIPH VEI 01/02/2017 [...] - 09/05/16 22:40 Bacterial urine culture NG [facility] Complete blood count (CBC) with automated white [...] - 11/30/16 17:50 Sed Rate 2 mm/hr 12-03 NAYE w/Reflex - 11/30/16 17:50 NAYE DIRECT [...] - 12/01/16 09:50 PTH, Intact 109 pg/mL 65 Complete blood count (CBC) with automated white [...] OTP NEGATIVE RESULT PARASITES NOT FOUND NRG Complete blood count (CBC) with automated white blood cell (WBC) differential - 04/29/18 10:40 Blood leukocytes automated count (number/volume) 8.9 10*3/uL 4.3-11.0 Blood erythrocytes automated count (number/volume) 4.80 10*6/uL 4.35-5.85 Venous blood hemoglobin measurement (mass/volume) 12.4 g/dL 11.5-16.0 Blood hematocrit (volume fraction) 41 % 35-52 Automated erythrocyte mean corpuscular volume 85 [foz_us] 80-99 Automated erythrocyte mean corpuscular hemoglobin (mass per erythrocyte) 26 pg 25-34 Automated erythrocyte mean corpuscular hemoglobin concentration measurement ( mass/volume) 30 g/dL 32-36 Automated erythrocyte distribution width ratio 15.2 % 10.0-14.5 Automated blood platelet count (count/volume) 198 10*3/uL 130-400 Automated blood platelet mean volume measurement 10.6 [foz_us] 7.4-10.4 Automated blood neutrophils/100 leukocytes 75 % 42-75 Automated blood lymphocytes/100 leukocytes 19 % 12-44 Blood monocytes/100 leukocytes 6 % 0-12 Automated blood eosinophils/100 leukocytes 0 % 0-10 Automated blood basophils/100 leukocytes 0 % 0-10 Blood neutrophils automated count (number/volume) 6.6 10*3 1.8-7.8 Blood lymphocytes automated count (number/volume) 1.7 10*3 1.0-4.0 Blood monocytes automated count (number/volume) 0.5 10*3 0.0-1.0 Automated eosinophil count 0.0 10*3/uL 0.0-0.3 Automated blood basophil count (count/volume) 0.0 10*3/uL 0.0-0.1 Comprehensive metabolic panel - 04/29/18 10:40 Serum or plasma sodium measurement (moles/volume) 141 mmol/L 135-145 Serum or plasma potassium measurement (moles/volume) 5.1 mmol/L 3.6-5.0 Serum or plasma chloride measurement (moles/volume) 109 mmol/L 98-107 Carbon dioxide 19 mmol/L 21-32 Serum or plasma anion gap determination (moles/volume) 13 mmol/L 5-14 Serum or plasma urea nitrogen measurement (mass/volume) 18 mg/dL 7-18 Serum or plasma creatinine measurement (mass/volume) 1.62 mg/dL 0.60-1.30 Serum or plasma urea nitrogen/creatinine mass ratio 11 NRG Serum or plasma creatinine measurement with calculation of estimated glomerular filtration rate 31 NRG Serum or plasma glucose measurement (mass/volume) 140 mg/dL 70-105 Serum or plasma calcium measurement (mass/volume) 10.3 mg/dL 8.5-10.1 Serum or plasma total bilirubin measurement (mass/volume) 0.8 mg/dL 0.1-1.0 Serum or plasma alkaline phosphatase measurement (enzymatic activity/volume) 172 U/L 40-136 Serum or plasma aspartate aminotransferase measurement (enzymatic activity/ volume) 29 U/L 5-34 Serum or plasma alanine aminotransferase measurement (enzymatic activity/volume ) 18 U/L 0-55 Serum or plasma protein measurement (mass/volume) 7.4 g/dL 6.4-8.2 Serum or plasma albumin measurement (mass/volume) 4.4 g/dL 3.2-4.5 CALCIUM CORRECTED 10.0 mg/dL 8.5-10.1 Serum or plasma troponin i.cardiac measurement (mass/volume) - 04/29/18 10:40 Serum or plasma troponin i.cardiac measurement (mass/volume) 0.031 ng/mL <0.028 PT panel in platelet poor plasma by coagulation assay - 04/29/18 10:40 Prothrombin time (PT) in platelet poor plasma by coagulation assay 15.4 s 12.2-14.7 INR in platelet poor plasma or blood by coagulation assay 1.2 0.8-1.4 Activated partial thromboplastin time (aPTT) in platelet poor plasma bycoagulation assay - 04/29/18 10:40 Activated partial thromboplastin time (aPTT) in platelet poor plasma bycoagulation assay 26 s 24-35 Fibrin D-dimer FEU measurement in platelet poor plasma (mass/volume) - 10:40 Fibrin D-dimer FEU measurement in platelet poor plasma (mass/volume) 0.78 ug/mL 0.00-0.49 Capillary blood glucose measurement by glucometer (mass/volume) - 04/29/18 11: 53 Capillary blood glucose measurement by glucometer (mass/volume) 111 mg/dL 70-110 Complete urinalysis with reflex to culture - 04/29/18 12:13 Urine color determination YELLOW NRG Urine clarity determination CLEAR NRG Urine pH measurement by test strip 8 5-9 Specific gravity of urine by test [...] NORMAL Urine leukocyte esterase detection by dipstick NEGATIVE NEGATIVE Automated urine sediment erythrocyte count by microscopy (number/high power field) RARE NRG Automated urine sediment leukocyte count by microscopy (number/high power field ) NONE NRG Bacteria detection in urine sediment by light microscopy NEGATIVE NRG Squamous epithelial cells detection in urine sediment by light microscopy RARE NRG Crystals detection in urine sediment by light microscopy NONE NRG Casts detection in urine sediment by light microscopy NONE NRG Mucus detection in urine sediment by light microscopy NEGATIVE NRG Complete urinalysis with reflex to culture NO NRG Automated blood complete blood count (hemogram) panel - 04/30/18 05:21 Blood leukocytes automated count (number/volume) 6.2 10*3/uL 4.3-11.0 Blood erythrocytes automated count (number/volume) 4.31 10*6/uL 4.35-5.85 Venous blood hemoglobin measurement (mass/volume) 11.0 g/dL 11.5-16.0 Blood hematocrit (volume fraction) 37 % 35-52 Automated erythrocyte mean corpuscular volume 86 [foz_us] 80-99 Automated erythrocyte mean corpuscular hemoglobin (mass per erythrocyte) 26 pg 25-34 Automated erythrocyte mean corpuscular hemoglobin concentration measurement ( mass/volume) 30 g/dL 32-36 Automated erythrocyte distribution width ratio 15.0 % 10.0-14.5 Automated blood platelet count (count/volume) 157 10*3/uL 130-400 Automated blood platelet mean volume measurement 10.8 [foz_us] 7.4-10.4 Comprehensive metabolic panel - 04/30/18 05:21 Serum or plasma sodium measurement (moles/volume) 139 mmol/L 135-145 Serum or plasma potassium measurement (moles/volume) 4.3 mmol/L 3.6-5.0 Serum or plasma chloride measurement (moles/volume) 109 mmol/L 98-107 Carbon dioxide 20 mmol/L 21-32 Serum or plasma anion gap determination (moles/volume) 10 mmol/L 5-14 Serum or plasma urea nitrogen measurement (mass/volume) 24 mg/dL 7-18 Serum or plasma creatinine measurement (mass/volume) 1.77 mg/dL 0.60-1.30 Serum or plasma urea nitrogen/creatinine mass ratio 14 NRG Serum or plasma creatinine measurement with calculation of estimated glomerular filtration rate 28 NRG Serum or plasma glucose measurement (mass/volume) 98 mg/dL 70-105 Serum or plasma calcium measurement (mass/volume) 9.8 mg/dL 8.5-10.1 Serum or plasma total bilirubin measurement (mass/volume) 0.7 mg/dL 0.1-1.0 Serum or plasma alkaline phosphatase measurement (enzymatic activity/volume) 148 U/L 40-136 Serum or plasma aspartate aminotransferase measurement (enzymatic activity/ volume) 24 U/L 5-34 Serum or plasma alanine aminotransferase measurement (enzymatic activity/volume ) 16 U/L 0-55 Serum or plasma protein measurement (mass/volume) 6.4 g/dL 6.4-8.2 Serum or plasma albumin measurement (mass/volume) 3.8 g/dL 3.2-4.5 CALCIUM CORRECTED 10.0 mg/dL 8.5-10.1 Lipid 1996 panel - 04/30/18 05:21 Serum or plasma triglyceride measurement (mass/volume) 128 mg/dL <150 Serum or plasma cholesterol measurement (mass/volume) 159 mg/dL < 200 Serum or plasma cholesterol in HDL measurement (mass/volume) 49 mg/ dL 40-60 Cholesterol in LDL [mass/volume] in serum or plasma by direct assay 84 mg/dL 1-129 Serum or plasma cholesterol in VLDL measurement (mass/volume) 26 mg/ dL 5-40 Serum or plasma lithium measurement (moles/volume) - 04/30/18 05:21 BNP level 45.8 pg/mL <100.0 Complete blood count (CBC) with automated white blood cell (WBC) differential - 05/02/18 05:32 Blood leukocytes automated count (number/volume) 6.3 10*3/uL 4.3-11.0 Blood erythrocytes automated count (number/volume) 4.32 10*6/uL 4.35-5.85 Venous blood hemoglobin measurement (mass/volume) 10.9 g/dL 11.5-16.0 Blood hematocrit (volume fraction) 37 % 35-52 Automated erythrocyte mean corpuscular volume 86 [foz_us] 80-99 Automated erythrocyte mean corpuscular hemoglobin (mass per erythrocyte) 25 pg 25-34 Automated erythrocyte mean corpuscular hemoglobin concentration measurement ( mass/volume) 29 g/dL 32-36 Automated erythrocyte distribution width ratio 14.9 % 10.0-14.5 Automated blood platelet count (count/volume) 154 10*3/uL 130-400 Automated blood platelet mean volume measurement 10.8 [foz_us] 7.4-10.4 Automated blood neutrophils/100 leukocytes 56 % 42-75 Automated blood lymphocytes/100 leukocytes 30 % 12-44 Blood monocytes/100 leukocytes 11 % 0-12 Automated blood eosinophils/100 leukocytes 3 % 0-10 Automated blood basophils/100 leukocytes 1 % 0-10 Blood neutrophils automated count (number/volume) 3.5 10*3 1.8-7.8 Blood lymphocytes automated count (number/volume) 1.9 10*3 1.0-4.0 Blood monocytes automated count (number/volume) 0.7 10*3 0.0-1.0 Automated eosinophil count 0.2 10*3/uL 0.0-0.3 Automated blood basophil count (count/volume) 0.0 10*3/uL 0.0-0.1 Comprehensive metabolic panel - 05/02/18 05:32 Serum or plasma sodium measurement (moles/volume) 140 mmol/L 135-145 Serum or plasma potassium measurement (moles/volume) 4.9 mmol/L 3.6-5.0 Serum or plasma chloride measurement (moles/volume) 109 mmol/L 98-107 Carbon dioxide 21 mmol/L 21-32 Serum or plasma anion gap determination (moles/volume) 10 mmol/L 5-14 Serum or plasma urea nitrogen measurement (mass/volume) 28 mg/dL 7-18 Serum or plasma creatinine measurement (mass/volume) 1.88 mg/dL 0.60-1.30 Serum or plasma urea nitrogen/creatinine mass ratio 15 NRG Serum or plasma creatinine measurement with calculation of estimated glomerular filtration rate 26 NRG Serum or plasma glucose measurement (mass/volume) 85 mg/dL 70-105 Serum or plasma calcium measurement (mass/volume) 9.8 mg/dL 8.5-10.1 Serum or plasma total bilirubin measurement (mass/volume) 0.4 mg/dL 0.1-1.0 Serum or plasma alkaline phosphatase measurement (enzymatic activity/volume) 133 U/L 40-136 Serum or plasma aspartate aminotransferase measurement (enzymatic activity/ volume) 23 U/L 5-34 Serum or plasma alanine aminotransferase measurement (enzymatic activity/volume ) 14 U/L 0-55 Serum or plasma protein measurement (mass/volume) 6.2 g/dL 6.4-8.2 Serum or plasma albumin measurement (mass/volume) 3.7 g/dL 3.2-4.5 CALCIUM CORRECTED 10.0 mg/dL 8.5-10.1 Complete blood count (CBC) with automated white blood cell (WBC) differential - 05/04/18 08:55 Blood leukocytes automated count (number/volume) 11.6 10*3/uL 4.3-11.0 Blood erythrocytes automated count (number/volume) 4.22 10*6/uL 4.35-5.85 Venous blood hemoglobin measurement (mass/volume) 10.9 g/dL 11.5-16.0 Blood hematocrit (volume fraction) 36 % 35-52 Automated erythrocyte mean corpuscular volume 86 [foz_us] 80-99 Automated erythrocyte mean corpuscular hemoglobin (mass per erythrocyte) 26 pg 25-34 Automated erythrocyte mean corpuscular hemoglobin concentration measurement ( mass/volume) 30 g/dL 32-36 Automated erythrocyte distribution width ratio 14.8 % 10.0-14.5 Automated blood platelet count (count/volume) 168 10*3/uL 130-400 Automated blood platelet mean volume measurement 10.6 [foz_us] 7.4-10.4 Automated blood neutrophils/100 leukocytes 80 % 42-75 Automated blood lymphocytes/100 leukocytes 11 % 12-44 Blood monocytes/100 leukocytes 8 % 0-12 Automated blood eosinophils/100 leukocytes 1 % 0-10 Automated blood basophils/100 leukocytes 0 % 0-10 Blood neutrophils automated count (number/volume) 9.2 10*3 1.8-7.8 Blood lymphocytes automated count (number/volume) 1.2 10*3 1.0-4.0 Blood monocytes automated count (number/volume) 0.9 10*3 0.0-1.0 Automated eosinophil count 0.2 10*3/uL 0.0-0.3 Automated blood basophil count (count/volume) 0.0 10*3/uL 0.0-0.1 Comprehensive metabolic panel - 05/04/18 08:55 Serum or plasma sodium measurement (moles/volume) 138 mmol/L 135-145 Serum or plasma potassium measurement (moles/volume) 4.5 mmol/L 3.6-5.0 Serum or plasma chloride measurement (moles/volume) 108 mmol/L 98-107 Carbon dioxide 23 mmol/L 21-32 Serum or plasma anion gap determination (moles/volume) 7 mmol/L 5-14 Serum or plasma urea nitrogen measurement (mass/volume) 29 mg/dL 7-18 Serum or plasma creatinine measurement (mass/volume) 1.44 mg/dL 0.60-1.30 Serum or plasma urea nitrogen/creatinine mass ratio 20 NRG Serum or plasma creatinine measurement with calculation of estimated glomerular filtration rate 36 NRG Serum or plasma glucose measurement (mass/volume) 152 mg/dL 70-105 Serum or plasma calcium measurement (mass/volume) 10.3 mg/dL 8.5-10.1 Serum or plasma total bilirubin measurement (mass/volume) 0.4 mg/dL 0.1-1.0 Serum or plasma alkaline phosphatase measurement (enzymatic activity/volume) 141 U/L 40-136 Serum or plasma aspartate aminotransferase measurement (enzymatic activity/ volume) 23 U/L 5-34 Serum or plasma alanine aminotransferase measurement (enzymatic activity/volume ) 16 U/L 0-55 Serum or plasma protein measurement (mass/volume) 6.7 g/dL 6.4-8.2 Serum or plasma albumin measurement (mass/volume) 3.9 g/dL 3.2-4.5 CALCIUM CORRECTED 10.4 mg/dL 8.5-10.1 Complete blood count (CBC) with automated white blood cell (WBC) differential - 05/07/18 06:00 Blood leukocytes automated count (number/volume) 9.1 10*3/uL 4.3-11.0 Blood erythrocytes automated count (number/volume) 3.93 10*6/uL 4.35-5.85 Venous blood hemoglobin measurement (mass/volume) 10.2 g/dL 11.5-16.0 Blood hematocrit (volume fraction) 34 % 35-52 Automated erythrocyte mean corpuscular volume 87 [foz_us] 80-99 Automated erythrocyte mean corpuscular hemoglobin (mass per erythrocyte) 26 pg 25-34 Automated erythrocyte mean corpuscular hemoglobin concentration measurement ( mass/volume) 30 g/dL 32-36 Automated erythrocyte distribution width ratio 15.1 % 10.0-14.5 Automated blood platelet count (count/volume) 158 10*3/uL 130-400 Automated blood platelet mean volume measurement 10.7 [foz_us] 7.4-10.4 Automated blood neutrophils/100 leukocytes 69 % 42-75 Automated blood lymphocytes/100 leukocytes 18 % 12-44 Blood monocytes/100 leukocytes 11 % 0-12 Automated blood eosinophils/100 leukocytes 2 % 0-10 Automated blood basophils/100 leukocytes 0 % 0-10 Blood neutrophils automated count (number/volume) 6.3 10*3 1.8-7.8 Blood lymphocytes automated count (number/volume) 1.6 10*3 1.0-4.0 Blood monocytes automated count (number/volume) 1.0 10*3 0.0-1.0 Automated eosinophil count 0.2 10*3/uL 0.0-0.3 Automated blood basophil count (count/volume) 0.0 10*3/uL 0.0-0.1 Comprehensive metabolic panel - 05/07/18 06:00 Serum or plasma sodium measurement (moles/volume) 139 mmol/L 135-145 Serum or plasma potassium measurement (moles/volume) 4.9 mmol/L 3.6-5.0 Serum or plasma chloride measurement (moles/volume) 108 mmol/L 98-107 Carbon dioxide 22 mmol/L 21-32 Serum or plasma anion gap determination (moles/volume) 9 mmol/L 5-14 Serum or plasma urea nitrogen measurement (mass/volume) 32 mg/dL 7-18 Serum or plasma creatinine measurement (mass/volume) 1.47 mg/dL 0.60-1.30 Serum or plasma urea nitrogen/creatinine mass ratio 22 NRG Serum or plasma creatinine measurement with calculation of estimated glomerular filtration rate 35 NRG Serum or plasma glucose measurement (mass/volume) 93 mg/dL 70-105 Serum or plasma calcium measurement (mass/volume) 10.0 mg/dL 8.5-10.1 Serum or plasma total bilirubin measurement (mass/volume) 0.3 mg/dL 0.1-1.0 Serum or plasma alkaline phosphatase measurement (enzymatic activity/volume) 126 U/L 40-136 Serum or plasma aspartate aminotransferase measurement (enzymatic activity/ volume) 27 U/L 5-34 Serum or plasma alanine aminotransferase measurement (enzymatic activity/volume ) 16 U/L 0-55 Serum or plasma protein measurement (mass/volume) 6.1 g/dL 6.4-8.2 Serum or plasma albumin measurement (mass/volume) 3.5 g/dL 3.2-4.5 CALCIUM CORRECTED 10.4 mg/dL 8.5-10.1 Bacterial urine culture - 05/07/18 20:15 Bacterial urine culture [id number] NRG COLONY COUNT >100,000/ML NRG FTX;REPORTABLE SENSITIVITY REPORTED 05/09/18 12:05 NRG FREE TEXT ENTRY 2 ID REPORTED 05/08/18 15:05 NRG L Sensitivity Panel - 05/07/18 20:15 Gentamicin susceptibility test by minimum inhibitory concentration < = NRG Trimethoprim/sulfamethoxazole susceptibility test by minimum inhibitoryconcentration <= NRG Levofloxacin susceptibility test by minimum inhibitory concentration > NRG Ampicillin susceptibility test by minimum inhibitory concentration > NRG Cefazolin susceptibility test by minimum inhibitory concentration 8 NRG Ceftriaxone susceptibility test by minimum inhibitory concentration <= NRG Ciprofloxacin susceptibility test by minimum inhibitory concentration > NRG Meropenem susceptibility test by minimum inhibitory concentration < = NRG Nitrofurantoin susceptibility test by minimum inhibitory concentration <= NRG Amoxicillin and clavulanate potassium susc STEVE = NRG Capillary blood glucose measurement by glucometer (mass/volume) - 05/07/18 20: 56 Capillary blood glucose measurement by glucometer (mass/volume) 108 mg/dL 70-110 Capillary blood glucose measurement by glucometer (mass/volume) - 05/09/18 11: 40 Capillary blood glucose measurement by glucometer (mass/volume) 126 mg/dL 70-110 Complete blood count (CBC) with automated white blood cell (WBC) differential - 05/15/18 04:20 Blood leukocytes automated count (number/volume) 6.0 10*3/uL 4.3-11.0 Blood erythrocytes automated count (number/volume) 4.14 10*6/uL 4.35-5.85 Venous blood hemoglobin measurement (mass/volume) 10.6 g/dL 11.5-16.0 Blood hematocrit (volume fraction) 36 % 35-52 Automated erythrocyte mean corpuscular volume 86 [foz_us] 80-99 Automated erythrocyte mean corpuscular hemoglobin (mass per erythrocyte) 26 pg 25-34 Automated erythrocyte mean corpuscular hemoglobin concentration measurement ( mass/volume) 30 g/dL 32-36 Automated erythrocyte distribution width ratio 15.1 % 10.0-14.5 Automated blood platelet count (count/volume) 183 10*3/uL 130-400 Automated blood platelet mean volume measurement 10.0 [foz_us] 7.4-10.4 Automated blood neutrophils/100 leukocytes 64 % 42-75 Automated blood lymphocytes/100 leukocytes 25 % 12-44 Blood monocytes/100 leukocytes 8 % 0-12 Automated blood eosinophils/100 leukocytes 2 % 0-10 Automated blood basophils/100 leukocytes 0 % 0-10 Blood neutrophils automated count (number/volume) 3.8 10*3 1.8-7.8 Blood lymphocytes automated count (number/volume) 1.5 10*3 1.0-4.0 Blood monocytes automated count (number/volume) 0.5 10*3 0.0-1.0 Automated eosinophil count 0.1 10*3/uL 0.0-0.3 Automated blood basophil count (count/volume) 0.0 10*3/uL 0.0-0.1 Comprehensive metabolic panel - 05/15/18 04:20 Serum or plasma sodium measurement (moles/volume) 142 mmol/L 135-145 Serum or plasma potassium measurement (moles/volume) 4.6 mmol/L 3.6-5.0 Serum or plasma chloride measurement (moles/volume) 110 mmol/L 98-107 Carbon dioxide 23 mmol/L 21-32 Serum or plasma anion gap determination (moles/volume) 9 mmol/L 5-14 Serum or plasma urea nitrogen measurement (mass/volume) 32 mg/dL 7-18 Serum or plasma creatinine measurement (mass/volume) 1.61 mg/dL 0.60-1.30 Serum or plasma urea nitrogen/creatinine mass ratio 20 NRG Serum or plasma creatinine measurement with calculation of estimated glomerular filtration rate 31 NRG Serum or plasma glucose measurement (mass/volume) 97 mg/dL 70-105 Serum or plasma calcium measurement (mass/volume) 10.1 mg/dL 8.5-10.1 Serum or plasma total bilirubin measurement (mass/volume) 0.4 mg/dL 0.1-1.0 Serum or plasma alkaline phosphatase measurement (enzymatic activity/volume) 127 U/L 40-136 Serum or plasma aspartate aminotransferase measurement (enzymatic activity/ volume) 19 U/L 5-34 Serum or plasma alanine aminotransferase measurement (enzymatic activity/volume ) 15 U/L 0-55 Serum or plasma protein measurement (mass/volume) 6.1 g/dL 6.4-8.2 Serum or plasma albumin measurement (mass/volume) 3.5 g/dL 3.2-4.5 CALCIUM CORRECTED 10.5 mg/dL 8.5-10.1 Automated blood complete blood count (hemogram) panel - 05/17/18 17:46 Blood leukocytes automated count (number/volume) 7.0 10*3/uL 4.3-11.0 Blood erythrocytes automated count (number/volume) 3.88 10*6/uL 4.35-5.85 Venous blood hemoglobin measurement (mass/volume) 10.0 g/dL 11.5-16.0 Blood hematocrit (volume fraction) 34 % 35-52 Automated erythrocyte mean corpuscular volume 87 [foz_us] 80-99 Automated erythrocyte mean corpuscular hemoglobin (mass per erythrocyte) 26 pg 25-34 Automated erythrocyte mean corpuscular hemoglobin concentration measurement ( mass/volume) 30 g/dL 32-36 Automated erythrocyte distribution width ratio 15.5 % 10.0-14.5 Automated blood platelet count (count/volume) 173 10*3/uL 130-400 Automated blood platelet mean volume measurement 10.5 [foz_us] 7.4-10.4 Complete urinalysis with reflex to culture - 05/18/18 07:05 Urine color determination YELLOW NRG Urine clarity determination CLEAR NRG Urine pH measurement by test strip 6.5 5-9 Specific gravity of urine by test strip 1.010 1.016- 1.022 Urine protein assay by test strip, semi-quantitative NEGATIVE NEGATIVE Urine glucose detection by automated test strip NEGATIVE NEGATIVE Erythrocytes detection in urine sediment by light microscopy NEGATIVE NEGATIVE Urine ketones detection by automated test strip NEGATIVE NEGATIVE Urine nitrite detection by test strip NEGATIVE NEGATIVE Urine total bilirubin detection by test strip NEGATIVE NEGATIVE Urine urobilinogen measurement by automated test strip (mass/volume) NORMAL NORMAL Urine leukocyte esterase detection by dipstick NEGATIVE NEGATIVE Automated urine sediment erythrocyte count by microscopy (number/high power field) NONE NRG Automated urine sediment leukocyte count by microscopy (number/high power field ) RARE NRG Bacteria detection in urine sediment by light microscopy NEGATIVE NRG Crystals detection in urine sediment by light microscopy NONE NRG Casts detection in urine sediment by light microscopy NONE NRG Mucus detection in urine sediment by light microscopy NEGATIVE NRG Complete urinalysis with reflex to culture NO NRG Complete blood count (CBC) with automated white blood cell (WBC) differential - 05/18/18 08:30 Blood leukocytes automated count (number/volume) 6.6 10*3/uL 4.3-11.0 Blood erythrocytes automated count (number/volume) 4.21 10*6/uL 4.35-5.85 Venous blood hemoglobin measurement (mass/volume) 10.7 g/dL 11.5-16.0 Blood hematocrit (volume fraction) 36 % 35-52 Automated erythrocyte mean corpuscular volume 85 [foz_us] 80-99 Automated erythrocyte mean corpuscular hemoglobin (mass per erythrocyte) 25 pg 25-34 Automated erythrocyte mean corpuscular hemoglobin concentration measurement ( mass/volume) 30 g/dL 32-36 Automated erythrocyte distribution width ratio 15.4 % 10.0-14.5 Automated blood platelet count (count/volume) 176 10*3/uL 130-400 Automated blood platelet mean volume measurement 10.4 [foz_us] 7.4-10.4 Automated blood neutrophils/100 leukocytes 73 % 42-75 Automated blood lymphocytes/100 leukocytes 17 % 12-44 Blood monocytes/100 leukocytes 8 % 0-12 Automated blood eosinophils/100 leukocytes 2 % 0-10 Automated blood basophils/100 leukocytes 1 % 0-10 Blood neutrophils automated count (number/volume) 4.8 10*3 1.8-7.8 Blood lymphocytes automated count (number/volume) 1.1 10*3 1.0-4.0 Blood monocytes automated count (number/volume) 0.6 10*3 0.0-1.0 Automated eosinophil count 0.1 10*3/uL 0.0-0.3 Automated blood basophil count (count/volume) 0.0 10*3/uL 0.0-0.1 Comprehensive metabolic panel - 05/18/18 08:30 Serum or plasma sodium measurement (moles/volume) 141 mmol/L 135-145 Serum or plasma potassium measurement (moles/volume) 4.5 mmol/L 3.6-5.0 Serum or plasma chloride measurement (moles/volume) 109 mmol/L 98-107 Carbon dioxide 22 mmol/L 21-32 Serum or plasma anion gap determination (moles/volume) 10 mmol/L 5-14 Serum or plasma urea nitrogen measurement (mass/volume) 22 mg/dL 7-18 Serum or plasma creatinine measurement (mass/volume) 1.31 mg/dL 0.60-1.30 Serum or plasma urea nitrogen/creatinine mass ratio 17 NRG Serum or plasma creatinine measurement with calculation of estimated glomerular filtration rate 40 NRG Serum or plasma glucose measurement (mass/volume) 115 mg/dL 70-105 Serum or plasma calcium measurement (mass/volume) 10.4 mg/dL 8.5-10.1 Serum or plasma total bilirubin measurement (mass/volume) 0.5 mg/dL 0.1-1.0 Serum or plasma alkaline phosphatase measurement (enzymatic activity/volume) 135 U/L 40-136 Serum or plasma aspartate aminotransferase measurement (enzymatic activity/ volume) 24 U/L 5-34 Serum or plasma alanine aminotransferase measurement (enzymatic activity/volume ) 15 U/L 0-55 Serum or plasma protein measurement (mass/volume) 6.6 g/dL 6.4-8.2 Serum or plasma albumin measurement (mass/volume) 3.9 g/dL 3.2-4.5 CALCIUM CORRECTED 10.5 mg/dL 8.5-10.1 Capillary blood glucose measurement by glucometer (mass/volume) - 06/14/18 09: 23 Capillary blood glucose measurement by glucometer (mass/volume) 83 mg/dL 70-110 Comprehensive metabolic panel - 06/14/18 09:30 Serum or plasma sodium measurement (moles/volume) 143 mmol/L 135-145 Serum or plasma potassium measurement (moles/volume) 5.0 mmol/L 3.6-5.0 Serum or plasma chloride measurement (moles/volume) 109 mmol/L 98-107 Carbon dioxide 23 mmol/L 21-32 Serum or plasma anion gap determination (moles/volume) 11 mmol/L 5-14 Serum or plasma urea nitrogen measurement (mass/volume) 18 mg/dL 7-18 Serum or plasma creatinine measurement (mass/volume) 1.49 mg/dL 0.60-1.30 Serum or plasma urea nitrogen/creatinine mass ratio 12 NRG Serum or plasma creatinine measurement with calculation of estimated glomerular filtration rate 34 NRG Serum or plasma glucose measurement (mass/volume) 94 mg/dL 70-105 Serum or plasma calcium measurement (mass/volume) 10.5 mg/dL 8.5-10.1 Serum or plasma total bilirubin measurement (mass/volume) 0.5 mg/dL 0.1-1.0 Serum or plasma alkaline phosphatase measurement (enzymatic activity/volume) 127 U/L 40-136 Serum or plasma aspartate aminotransferase measurement (enzymatic activity/ volume) 23 U/L 5-34 Serum or plasma alanine aminotransferase measurement (enzymatic activity/volume ) 17 U/L 0-55 Serum or plasma protein measurement (mass/volume) 6.6 g/dL 6.4-8.2 Serum or plasma albumin measurement (mass/volume) 4.1 g/dL 3.2-4.5 CALCIUM CORRECTED 10.4 mg/dL 8.5-10.1 GLUCOSE TOLERANCE TEST 2HR - 06/14/18 09:30 GLUCOSE TOLERANCE TEST 2HR NRG Hemoglobin A1c - 06/14/18 09:30 Blood hemoglobin A1C measurement (mass/volume) 6.1 % 4.0- 5.6 MEAN BLOOD GLUCOSE 128 % <=126 Encounters ACCT No. Visit Date/Time Discharge Status Pt. Type Provider Facility Loc./Unit Complaint [id number] 06/14/2018 08:59:00 06/14/2018 23:59:59 CLS Outpatient MAYURI GARAY [facility] LAB HYPOGLYCEMIA [id number] 05/03/2018 11:30:00 05/18/2018 13:40:00 DIS Inpatient SANDY WILLIS DO [facility] IRF CVA [id number] 04/29/2018 11:55:00 05/03/2018 10:19:00 DIS Inpatient SANDY WILLIS DO [facility] 4TH STROKE [id number] 04/05/2018 08:26:00 04/05/2018 23:59:59 CLS Preadmit DAPHNIE ODELL [facility] CARD CVA,CAROTID ARTERY STENOSIS [id number] 03/01/2018 09:37:00 03/01/2018 23:59:59 CLS Outpatient NIKOS MAZARIEGOS [facility] RAD LOW BACK PAIN, BOWEL INCONT [id number] 02/27/2018 10:00:00 02/27/2018 23:59:59 CLS Outpatient NIKOS MAZARIEGOS [facility] RAD DIARRHEA [id number] 01/27/2018 16:58:00 01/27/2018 23:59:59 CLS Outpatient SALAS MENDOZA MD [facility] LAB DIARRHEA [id number] [id number] 01/24/2018 06:05:00 01/24/2018 08:37:00 DIS Emergency ROXANNE WOODS, KANDY Munoz [facility] ER DIARRHEA [id number] 12/19/2017 14:14:00 01/19/2018 15:56:00 DIS Outpatient EDILMA BROWNING APRN [facility] REHAB LBP;BALANCE/GAIT ABNORMALITIES [id number] 12/14/2017 09:32:00 12/18/2017 00:01:00 DIS Outpatient EDILMA BROWNING APRN [facility] REHAB LBP;BALANCE/GAIT ABNORMALITIES [id number] 11/26/2017 08:39:00 11/26/2017 10:48:00 DIS Emergency VANESSA WOODS, ERIK Barnett [facility] ER SEVERE BACK PAIN X1 WEEK [id number] 05/18/2017 10:03:00 05/18/2017 23:59:59 CLS Outpatient MICHELLE WOODS, DOMI Munoz [facility] CATH CRYPTOGENIC STROBE [id number] 03/16/2017 08:00:00 03/16/2017 23:59:59 CLS Outpatient TELLO WILKINSON MD [facility] RAD HTN [id number] 01/02/2017 16:08:00 01/04/2017 14:15:00 DIS Inpatient WILLIS DO, SANDY [facility] ICU COMPLETE LEFT HEMIANOPSIA ,HEADACHE [id number] 09/05/2016 23:25:00 09/07/2016 15:45:00 DIS Inpatient WILLIS DO, SANDY [facility] 4TH GENERALIZED WEAKNESS; ALTERED MENTAL STATUS; UTI [id number] 08/13/2016 10:34:00 08/13/2016 13:18:00 DIS Outpatient NADIA BARTHOLOMEW MD [facility] ENDO WEIGHT LOSS/HX POLYPS [id number] 08/11/2016 05:49:00 08/11/2016 14:46:00 DIS Outpatient NADIA BARTHOLOMEW MD [facility] PREOP WEIGHT LOSS/HX POLYPS [id number] 06/25/2015 09:00:00 06/25/2015 23:59:59 CLS Outpatient DOMI MARTINEZ MD [facility] CARD CAD,CLAUDICATIONS, HTN HLP CVA [id number] 04/11/2014 14:55:00 04/25/2014 10:55:00 DIS Outpatient TELLO WILKINSON MD [facility] REHAB CVA [id number] 04/16/2014 14:19:00 04/16/2014 15:13:00 DIS Outpatient TELLO WILKINSON MD [facility] REHAB CVA [id number] 04/10/2014 07:45:00 04/10/2014 12:42:00 DIS Outpatient DOMI MARTINEZ MD [facility] CATH CVA,CAROTID STENOSIS,HTN ,HLP [id number] 03/22/2014 11:32:00 03/26/2014 11:45:00 DIS Inpatient JERICA GILLIAM MD [facility] IRF IRF-CVA [id number] 03/20/2014 14:40:00 03/22/2014 11:00:00 DIS Inpatient IWONA SINGH MD [facility] ICU CVA RIGHT SIDED WEAKNESS [id number] 12/12/2013 08:09:00 12/12/2013 23:59:59 CLS Outpatient TELLO WILKINSON MD [facility] RAD CKD 3 [id number] 11/07/2013 10:45:00 11/07/2013 23:59:59 CLS Outpatient DAPHNIE ODELL [facility] CARD CAROTID ARTERY STENOSIS,HTN,HLP,DYSPNEA [id number] 07/19/2013 07:02:00 07/19/2013 23:59:59 CLS Outpatient CATRINA MD, ERNESTO S [facility] GERD [id number] 07/11/2013 07:29:00 07/11/2013 23:59:59 CLS Outpatient ERNESTO FRITZ MD [facility] PREOP GERD [id number] 12/28/2012 08:03:00 12/28/2012 23:59:59 CLS Outpatient ERNESTO FRITZ MD [facility] REFLUX [id number] 12/27/2012 07:12:00 12/27/2012 23:59:59 CLS Outpatient ERNESTO FRITZ MD [facility] PREOP REFLUX [id number] 10/26/2012 07:07:00 10/26/2012 11:35:00 DIS Outpatient ERNESTO FRITZ MD [facility] GERD [id number] 10/25/2012 07:22:00 10/25/2012 23:59:59 CLS Outpatient ERNESTO FRITZ MD [facility] PREOP GERD [id number] 09/13/2012 07:30:00 09/15/2012 17:27:00 DIS Outpatient ERNESTO FRITZ MD [facility] GASTROESOPHAGEAL REFLUX DISEASE [id number] 09/08/2012 12:15:00 09/08/2012 23:59:59 CLS Outpatient ERNESTO FRITZ MD [facility] PREOP GERD [id number] 08/31/2012 07:17:00 08/31/2012 23:59:59 CLS Outpatient ERNESTO FRITZ MD [facility] GERD [id number] 08/30/2012 07:17:00 08/30/2012 23:59:59 CLS Outpatient ERNESTO FRITZ MD [facility] PREOP GERD [id number] 03/22/2014 15:43:00 Document Registration [id number] 03/22/2014 15:43:00 Document Registration [id number] 03/22/2014 15:43:00 Document Registration [id number] 03/22/2014 15:43:00 Document Registration [id number] 06/22/2012 08:16:00 Document Registration [id number] 06/21/2012 08:10:00 Document Registration [id number] 02/16/2012 13:08:00 Document Registration [id number] 12/29/2011 10:50:00 Document Registration [id number] 11/25/2011 11:45:00 Document Registration [id number] 12/18/2010 10:24:00 Document Registration [id number] 10/20/2010 13:35:00 Document Registration [id number] 09/28/2010 10:33:00 Document Registration [id number] 09/24/2010 13:48:00 Document Registration [id number] 06/18/2010 12:28:00 Document Registration [id number] 04/21/2010 00:00:00 Document Registration [id number] 04/14/2010 13:40:00 Document Registration [id number] 03/30/2010 13:42:00 Document Registration [id number] 03/27/2010 10:20:00 Document Registration [id number] 03/17/2010 19:50:00 Document Registration [id number] 01/14/2010 19:10:00 Document Registration [id number] 12/18/2009 10:20:00 Document Registration [id number] 12/16/2009 09:23:00 Document Registration [id number] 09/22/2009 10:14:00 Document Registration [id number] 09/11/2009 09:36:00 Document Registration [id number] 08/25/2009 09:20:00 Document Registration [id number] 07/30/2009 11:44:00 Document Registration [id number] 02/26/2009 11:04:00 Document Registration [id number] 01/22/2009 16:12:00 Document Registration [id number] 12/28/2008 16:48:00 Document Registration [id number] 10/16/2008 09:11:00 Document Registration [id number] 11/09/2017 14:35:31 11/09/2017 23:59:59 [facility] [id number] 12/02/2016 09:50:00 Document Registration [id number] 03/07/2017 14:11:00 03/07/2017 23:59:00 DIS Outpatient TELLO WILKINSON [id number] 12/02/2016 09:50:00 12/02/2016 23:59:00 DIS Outpatient TELLO WILKINSON [id number] 11/30/2016 17:50:00 11/30/2016 23:59:00 DIS Outpatient TELLO WILKINSON [id number] 07/21/2016 13:51:00 07/21/2016 23:59:00 DIS Outpatient TELLO WILKINSON [id number] 07/01/2016 16:30:00 07/01/2016 23:59:00 DIS Outpatient TELLO WILKINSON [id number] 02/05/2016 16:48:00 02/05/2016 23:59:00 DIS Outpatient TELLO WILKINSON [id number] 04/27/2014 04:34:10 ACT Document Registration [id number] 12/03/2016 10:16:00 Document Registration [id number] 12/02/2016 12:18:00 Document Registration [id number] 04/14/2018 16:00:00 04/14/2018 23:59:59 CLS Outpatient [facility] [id number] 12/02/2016 11:16:00 Document Registration
--- NOTE | 2018-07-17 15:50 | Physical Therapy Progress Note ---
Therapy Progress Note Order received for PT eval. Patient just got to ICU, still assessing and testing. Will perform PT eval in the morning. KATHRINE ODONNELL PT Jul 17, 2018 15:50
--- NOTE | 2018-07-17 15:51 | NUR ---
RECEIVED CALL FROM MRI REGARDING PATIENT LOOP RECORDER. MRI UNAWARE IF ABLE TO PROCEED WITH TEST AT THIS TIME RELATED TO NOT KNOWING IF DEVICE WAS COMPATIBLE WITH MRI. THIS NURSE STATED FOR MRI TO CALL [employer] OPERATOR HELPER THEY WOULD HAVE THIS INFORMATION.
--- NOTE | 2018-07-17 15:52 | Occ Therapy Progress Note ---
Therapy Progress Note NSG stated pt just arrived to ICU and is still awaiting testing. OT will evaluate pt next day (07/18/18). RENETTA LIPSCOMB OT Jul 17, 2018 15:52
[2018-07-17 15:55] LABS: CHOLESTEROL 159 MG/DL (< 200); HDL CHOLESTEROL 66 MG/DL (40-60); TRIGLYCERIDES 75 MG/DL (<150); VLDL CHOLESTEROL 15 MG/DL (5-40)
--- NOTE | 2018-07-17 15:55 | NUR ---
RECEIVED CALL BACK FROM ELEVATOR DISPATCHER AT THIS TIME R/T LOOP RECORDER ET MRI. STATED HE WAS UNABLE TO GET A HOLD OF BROTHEL KEEPER ET WOULD BE CANCELING TEST UNTIL HE IS ABLE TO FIND OUT ANSWER TO WHETHER MRI IS COMPATIBLE WITH LOOP RECORDER.
[2018-07-17] MEDS ORDERED: LORazepam 0.5 MG (ATIVAN) TABLET PO PRN (16:00)
[2018-07-17] MEDS ORDERED: ONDANSETRON 4 MG/2 ML (SDV) Z0FRAN IV PRN (16:00)
[2018-07-17] MEDS ORDERED: oxyCODONE/APAP 5/325MG (PERCOCET 5) TABLET PO PRN (16:00)
[2018-07-17] MEDS ORDERED: ACETAMINOPHEN 650 MG SUPP (TYLENOL) PR PRN (16:00)
[2018-07-17] MEDS ORDERED: CATHETER FLUSH 10 ML SYR IV PRN (16:00)
[2018-07-17] MEDS ORDERED: PROM25SU43 RC (16:09)
[2018-07-17] MEDS ORDERED: ESCI10TA PO (16:09)
[2018-07-17] MEDS ORDERED: TAMS0.4C98 PO (16:09)
[2018-07-17] MEDS ORDERED: METO-395 PO (16:09)
[2018-07-17] MEDS ORDERED: BUPR150T14 PO (16:09)
[2018-07-17] MEDS ORDERED: ASPI-983 PO (16:09)
[2018-07-17] MEDS ORDERED: LACT20SO2 PO (16:09)
[2018-07-17] MEDS ORDERED: BETH25TA11 PO (16:09)
[2018-07-17] MEDS ORDERED: BACL10TA PO (16:09)
[2018-07-17] MEDS ORDERED: TRAM50TA2 PO (16:09)
[2018-07-17] MEDS ORDERED: ACET325T38 PO (16:09)
[2018-07-17] MEDS ORDERED: DICL100G18 TP (16:09)
--- NOTE | 2018-07-17 16:11 | NUR ---
UPDATED MED REC WITH PHYSICIAN VISIT FORM FROM [facility]
--- NOTE | 2018-07-17 17:00 | NUR ---
SPOKE WITH DR. COOPER REGARDING PATIENT MRI ISSUE. STATED SHE WOULD BE CONSULTING CARDIOLOGY ET FOR THIS NURSE TO CONTACT TRANSPORTATION AID ONCALL IN REGARDS TO PT LOOP RECORDER ET WHETHER IT IS COMPATIBLE WITH MRI TEST.
--- NOTE | 2018-07-17 17:22 | NUR ---
PAGED DR. BENSON, INDUSTRIAL SERVICE TECHNICIAN MEDICAL FIELD REPRESENTATIVE, QUESTIONED ABOUT PATIENT LOOP RECORDER. DR BENSON STATED THAT [employer] LOOP RECORDER HAS A MAX OF 1.5 ROB, BUT HE IS UNAWARE OF BIOTRONIC DEVICE ET THAT HE IS UNAWARE WHICH DEVICE PATIENT HAS, THAT WOULD NEED TO FIND OUT DEVICE ET BRIM POUNCER.
--- NOTE | 2018-07-17 17:43 | NUR ---
PATIENT HAS INPLANTED DEVICE [employer] with serial number [id number]. DEVICE WAS PLACED IN PATIENT IN 04/2017. THIS NURSE NOTIFIED RADIOLOGY OF DEVICE ET THAT PER DR. BENSON 1.5 ROB MAX. STATED WOULD LEAVE NOTE FOR MRI.
[2018-07-17] MEDS: RIVAROXABAN 20 MG TABLET (XARELTO) PO SCH (18:07)
[2018-07-17] MEDS: NS IV 1000 ML 1,000 ML IV SCH (18:07)
[2018-07-17] MEDS: DOCUSATE SODIUM 100 MG (COLACE) CAP PO SCH (19:49)
[2018-07-17] MEDS: ATORVASTATIN 80 MG (LIPITOR) TABLET PO SCH (19:49)
--- NOTE | 2018-07-17 21:00 | NUR ---
Dr. Livingston notified to restart HS medications (per daughter of patient's request). New orders rec to start Norvasc 5mg at HS, Lexapro 10mg at HS, and Neurontin 300 BID.
[2018-07-17] MEDS ORDERED: GABAPENTIN 300 MG (NEURONTIN) CAP ONE (21:24)
[2018-07-17] MEDS ORDERED: amLODIPine 5 MG (NORVASC) TAB ONE (21:24)
[2018-07-17] MEDS: GABAPENTIN 300 MG (NEURONTIN) CAP PO SCH (21:31)
[2018-07-18] VITALS (14 sets, daily range): BP systolic 131–163; BP diastolic 61–87
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
[2018-07-18] MEDS ORDERED: LORazepam INJ 2 MG/ML (ATIVAN) VIAL IVP PRN (01:00)
[2018-07-18] MEDS ORDERED: LORazepam INJ 2 MG/ML (ATIVAN) VIAL ONE (01:08)
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
[2018-07-18 04:08] LABS: BASOPHILS % (AUTO) 0 % (0-10); EOSINOPHILS # (AUTO) 0.1 10^3/uL (0.0-0.3); EOSINOPHILS % (AUTO) 1 % (0-10); HEMATOCRIT 33 % (35-52); HEMOGLOBIN 9.5 G/DL (11.5-16.0); LYMPHOCYTES # (AUTO) 1.7 X 10^3 (1.0-4.0); LYMPHOCYTES % (AUTO) 27 % (12-44); MEAN CORPUSCULAR HEMOGLOBIN 24 PG (25-34); MEAN CORPUSCULAR HGB CONC 29 G/DL (32-36); MEAN CORPUSCULAR VOLUME 84 FL (80-99); MEAN PLATELET VOLUME 9.8 FL (7.4-10.4); MONOCYTES # (AUTO) 0.6 X 10^3 (0.0-1.0); MONOCYTES % (AUTO) 9 % (0-12); NEUTROPHILS % (AUTO) 62 % (42-75); PLATELET COUNT 183 10^3/uL (130-400); RED CELL DISTRIBUTION WIDTH 15.5 % (10.0-14.5); WHITE BLOOD COUNT 6.3 10^3/uL (4.3-11.0)
[2018-07-18 04:23] LABS: CALCIUM 9.7 MG/DL (8.5-10.1); CREATININE SERUM 1.4 MG/DL (0.60-1.30); MAGNESIUM 1.8 MG/DL (1.8-2.4); PHOSPHORUS 3.9 MG/DL (2.3-4.7); POTASSIUM 4.4 MMOL/L (3.6-5.0)
[2018-07-18] MEDS: NS IV 1000 ML 1,000 ML IV SCH ×3 (04:27→22:00)
[2018-07-18] MEDS: GABAPENTIN 300 MG (NEURONTIN) CAP PO SCH ×2 (08:19→21:44)
[2018-07-18] MEDS: DOCUSATE SODIUM 100 MG (COLACE) CAP PO SCH ×2 (08:19→23:22)
--- NOTE | 2018-07-18 08:55 | History & Physicial (CHS) ---
HPI History of Present Illness: 73 yo female sent to ER due to left sided weakness starting several days ago with confusion on Tuesday worsening. She has history of CVA with left sided weakness Apr 29, but they were concerned this may be worsening. CT in ER showed chronic changes, could not rule out acute event. MRA was ordered but could not be obtained due to needing more info on loop recorder. She is on Xarelto for a fib. She is unable to provide much history, but does answer questions. Source: family Date seen by provider: Jul 18, 2018 Time Seen by Provider: 09:25 Attending Physician Kenzie Livingston MD PCP Center/[facility] Consult Date of Admission Jul 17, 2018 at 14:36 Home Medications Home Medications Reviewed patient Home Medication Reconciliation performed by pharmacy medication reconciliations prepress technician and/or nursing. Patients Allergies have been reviewed. Allergies Coded Allergies: No Known Drug Allergies (Verified , 09/08/12) HXW-Wzvlus-Sxdaay Hx Patient Social History Alcohol Use: Rarely Uses Recreational Drug Use: No Smoking Status: Former Smoker Type Used: Cigarettes 2nd Hand Smoke Exposure: No Recent Foreign Travel: No Contact w/other who traveled: No Recent Hopitalizations: No Recent Infectious Disease Expo: No Immunizations Up To Date Tetanus Booster (TDap): Unknown Date of Pneumonia Vaccine: Nov 19, 2013 Date of Influenza Vaccine: Nov 19, 2017 Past Medical History PMHx: CVA TIA HTN Arthritis hyperlipidemia DMII A fib Anxiety SurgHx: Hiatal hernia x 2 Appendectomy Family Medical History Family History: FH: CVA (cerebrovascular accident) G8 BROTHER G8 SISTER FH: breast cancer 19 MOTHER FH: cancer 19 FATHER Hypertension 19 MOTHER Review of Systems (CHC) Constitutional: other (unable to obtain accurate ROS due to patient condition) Reviewed Test Results Reviewed Test Results Lab Laboratory Tests Test 07/17/18 11:30 07/17/18 12:00 07/17/18 12:04 07/18/18 04:00 Range/Units White Blood Count 6.3 6.3 4.3-11.0 10^3/uL Red Blood Count 4.57 3.93 L 4.35-5.85 10^6/uL Hemoglobin 11.3 L 9.5 L 11.5-16.0 G/DL Hematocrit 39 33 L 35-52 % Mean Corpuscular Volume 84 84 80-99 FL Mean Corpuscular Hemoglobin 25 24 L 25-34 PG Mean Corpuscular Hemoglobin Concent 29 L 29 L 32-36 G/DL Red Cell Distribution Width 15.6 H 15.5 H 10.0-14.5 % Platelet Count 185 183 130-400 10^3/uL Mean Platelet Volume 10.8 H 9.8 7.4-10.4 FL Neutrophils (%) (Auto) 62 62 42-75 % Lymphocytes (%) (Auto) 27 27 12-44 % Monocytes (%) (Auto) 9 9 0-12 % Eosinophils (%) (Auto) 2 1 0-10 % Basophils (%) (Auto) 1 0 0-10 % Neutrophils # (Auto) 3.9 4.0 1.8-7.8 X 10^3 Lymphocytes # (Auto) 1.7 1.7 1.0-4.0 X 10^3 Monocytes # (Auto) 0.5 0.6 0.0-1.0 X 10^3 Eosinophils # (Auto) 0.1 0.1 0.0-0.3 10^3/uL Basophils # (Auto) 0.0 0.0 0.0-0.1 10^3/uL Sodium Level 142 141 135-145 MMOL/L Potassium Level 4.7 4.4 3.6-5.0 MMOL/L Chloride Level 109 H 111 H 98-107 MMOL/L Carbon Dioxide Level 23 20 L 21-32 MMOL/L Anion Gap 10 10 5-14 MMOL/L Blood Urea Nitrogen 17 17 7-18 MG/DL Creatinine 1.47 H 1.40 H 0.60-1.30 MG/DL Estimat Glomerular Filtration Rate 35 37 BUN/Creatinine Ratio 12 12 Glucose Level 114 H 100 70-105 MG/DL Calcium Level 10.8 H 9.7 8.5-10.1 MG/DL Corrected Calcium 8.5-10.1 MG/DL Total Bilirubin 0.6 0.1-1.0 MG/DL Aspartate Amino Transf (AST/SGOT) 21 5-34 U/L Alanine Aminotransferase (ALT/SGPT) 16 0-55 U/L Alkaline Phosphatase 130 40-136 U/L Troponin I < 0.028 <0.028 NG/ML C-Reactive Protein High Sensitivity 0.07 0.00-0.50 MG/DL Total Protein 7.5 6.4-8.2 GM/DL Albumin 4.7 H 3.2-4.5 GM/DL Triglycerides Level 75 <150 MG/DL Cholesterol Level 159 < 200 MG/DL LDL Cholesterol Direct 73 1-129 MG/DL VLDL Cholesterol 15 5-40 MG/DL HDL Cholesterol 66 H 40-60 MG/DL Urine Color YELLOW Urine Clarity CLEAR Urine pH 7 5-9 Urine Specific [place] 1.005 L 1.016-1.022 Urine Protein 3+ H NEGATIVE Urine Glucose (UA) NEGATIVE NEGATIVE Urine Ketones NEGATIVE NEGATIVE Urine Nitrite NEGATIVE NEGATIVE Urine Bilirubin NEGATIVE NEGATIVE Urine Urobilinogen NORMAL NORMAL MG/DL Urine Leukocyte Esterase 1+ H NEGATIVE Urine RBC (Auto) 5+ H NEGATIVE Urine RBC 10-25 H /HPF Urine WBC RARE /HPF Urine Squamous Epithelial Cells 2-5 /HPF Urine Crystals NONE /LPF Urine Bacteria TRACE /HPF Urine Casts NONE /LPF Urine Mucus SMALL H /LPF Urine Culture Indicated YES Glucometer 107 70-110 MG/DL Phosphorus Level 3.9 2.3-4.7 MG/DL Magnesium Level 1.8 1.8-2.4 MG/DL Radiology CT head 07/17: IMPRESSION: Atrophy and chronic microvascular ischemic disease with several areas of encephalomalacia compatible with prior CVAs. While there has been no acute interval change in light of the degree of white matter disease and prior CVAs, it is difficult to exclude an acute CVA. If high clinical concern persists , further evaluation with MRI should be considered. No other acute intracranial abnormality. CXR 07/17: No acute changes Physical Exam-(CHC) Physical Exam Vital Signs VS - Last 72 Hours, by Label 07/17/18 07/17/18 07/17/18 07/17/18 11:32 14:54 15:15 16:00 Temp 98.4 Pulse 78 65 62 69 Resp 18 24 8 12 B/P (MAP) 178/90 (119) 177/76 (109) 160/79 (106) 147/79 (101) Pulse Ox 97 100 O2 Delivery Room Air Room Air 07/17/18 07/17/18 07/17/18 07/17/18 16:00 16:25 17:00 18:00 Pulse 68 71 78 Resp 19 15 B/P (MAP) 134/72 (92) 137/67 (90) Pulse Ox 98 98 91 O2 Delivery Nasal Cannula Room Air Room Air 07/17/18 07/17/18 07/17/18 07/17/18 19:00 19:00 19:50 20:00 Temp 99.2 Pulse 68 68 67 Resp 20 12 B/P (MAP) 133/80 (97) 161/75 (103) Pulse Ox 93 100 O2 Delivery Room Air Room Air Room Air 07/17/18 07/17/18 07/17/18 07/18/18 21:00 22:00 23:00 00:00 Temp 98.4 Pulse 66 80 87 72 Resp 15 16 17 15 B/P (MAP) 145/69 (94) 165/90 (115) 167/87 (113) 136/68 (90) Pulse Ox 91 97 93 91 O2 Delivery Room Air Room Air Room Air Room Air 07/18/18 07/18/18 07/18/18 07/18/18 00:00 01:00 01:00 02:00 Pulse 65 65 85 Resp 25 13 B/P (MAP) 138/61 (86) 146/78 (100) Pulse Ox 92 97 O2 Delivery Room Air Room Air Nasal Cannula O2 Flow Rate 2.00 07/18/18 07/18/18 07/18/18 07/18/18 03:00 04:00 04:32 04:34 Temp 97.8 Pulse 70 68 71 Resp 15 19 17 B/P (MAP) 150/75 (100) 148/76 (100) Pulse Ox 97 95 96 O2 Delivery Nasal Cannula Nasal Cannula Room Air Nasal Cannula O2 Flow Rate 2.00 2.00 1.00 07/18/18 07/18/18 07/18/18 07/18/18 05:00 06:00 07:00 07:00 Pulse 68 76 71 68 Resp 15 11 26 B/P (MAP) 158/79 (105) 137/74 (95) 132/66 (88) Pulse Ox 96 93 92 O2 Delivery Nasal Cannula Nasal Cannula Nasal Cannula O2 Flow Rate 1.00 1.00 1.00 07/18/18 07/18/18 07/18/18 07/18/18 08:00 08:00 08:00 09:00 Temp 97.6 Pulse 70 82 Resp 19 14 B/P (MAP) 135/87 (103) 134/79 (97) Pulse Ox 99 100 99 O2 Delivery Nasal Cannula Nasal Cannula Nasal Cannula O2 Flow Rate 1.00 1.00 1.00 07/18/18 07/18/18 10:00 11:00 Pulse 81 75 Resp 13 18 B/P (MAP) 131/83 (99) Pulse Ox 99 98 O2 Delivery Nasal Cannula Nasal Cannula O2 Flow Rate 1.00 1.00 Capillary Refill : Less Than 3 Seconds General Appearance: no apparent distress HEENT: PERRL/EOMI Respiratory: lungs clear, normal breath sounds Cardiovascular: regular rate, rhythm, no murmur Gastrointestinal: normal bowel sounds, non tender, soft Extremities: no pedal edema Neurologic/Psychiatric: alert, normal mood/affect, oriented x 3; No abnormal cerebellar tests; other (slight left facial droop- greatest at mouth, able to raise left arm only to shoulder level, left hand contracted, able to lift left leg off bed a few cm, speech clear) Skin: normal color, warm/dry Assessment/Plan Assessment/Plan Admission Status: Inpatient Order (span 2 midnights) Reason for Inpatient Admission: Acute CVA vs TIA at high risk for complications. (1) Paroxysmal atrial fibrillation Status: Chronic Assessment & Plan: On rivaroxaban for anti-coagulation, heart rate controlled. Cardiology consulted. (2) Hypertension Status: Chronic Assessment & Plan: Resume home meds. Qualifiers: Qualified Codes: I10 - Essential (primary) hypertension (3) Cerebrovascular accident (CVA) with left hemiparesis Status: Chronic Assessment & Plan: Acute occurrence in Apr 2018, echo done at that time with normal EF, last carotid US 2016. Had acute worsening of symptoms last several days. Not a candidate for TPA due to unknown last well time and rivaroxaban use. CTA not done due to renal function and low suspicion for need for acute intervention. MRA pending, had to clear with her child monitor. Clinically improved already this am, suspect TIA. PT/OT ordered. Continue aspirin. (4) Delirium Status: Resolved Assessment & Plan: Suspect secondary to TIA and pain medication, resolved this am. (5) Hyperlipidemia Status: Chronic Assessment & Plan: Resume statin. (6) Depression Status: Chronic Assessment & Plan: Resume home meds. (7) DVT prophylaxis Status: Acute Assessment & Plan: On rivaroxaban. Clinical Quality Measures DVT/VTE Risk/Contraindication: Risk Factor Score Per Nursin RFS Level Per Nursing on Admit: 4+=Very High Stroke: Date of last known well: Jul 14, 2018 Symptoms onset unknown: Yes KENZIE LIVINGSTON MD Jul 18, 2018 08:55
[2018-07-18] MEDS ORDERED: ASPIRIN E.C. 325 MG (ECOTRIN) TABLET PO SCH (09:00)
--- NOTE | 2018-07-18 10:21 | Physical Therapy Evaluation ---
PT Evaluation-General Medical Diagnosis Admission Date Jul 17, 2018 at 14:36 Medical Diagnosis: stroke Onset Date: Jul 17, 2018 Therapy Diagnosis Therapy Diagnosis: impaired mobility, strength, endurance, balance Height/Weight Height (Feet): 5 Height (Inches): 5.00 Weight (Pounds): 176 Weight (Ounces): 6.4 Precautions Precautions/Isolations: Fall Prevention, Standard Precautions, Pressure Ulcer Referral Physician: Susanne Livingston MD Reason for Referral: Evaluation/Treatment Medical History Pertinent Medical History: Arthritis, CVA, GERD, HTN Reviewed History: Yes Social History Home: Skilled Nursing Prior/Core FIM Prior Level of Function Therapy Code Descriptions/Definitions Functional [place] Measure: 0=Not Assessed/NA 4=Minimal Assistance 1=Total Assistance 5=Supervision or Setup 2=Maximal Assistance 6=Modified [place] 3=Moderate Assistance 7=Complete [place] Therapy Quality Codes: 6 Independent with activity with or without an assistive device 5 Patient requires set up or clean up by helper. Patient completes activity by themselves 4 Supervision or touching assist (CGA). [place] provide cues , steadying assist 3 The helper provides less than half the effort to complete the activity 2 The helper provides more than half the effort to complete the activity 1 Dependent. The helper does all the effort to complete an activity 7 Patient refused to complete or attempt activity 9 The patient did not perform the activity before the current illness or injury 88 Not attempted due to Medical conditions or safety concerns Functional Abilities and Goals: Independent: Patient completed the activities by him/herself, with or without an assistive device, with no assistance from a helper. Needed Some Help: Patient needed partial assistance from another person to complete activities. Dependent: A helper completed the activities for the patient. Unknown: Not Applicable: Bed Mobility: 6 Transfers (B,C,W/C) (FIM): 6 Gait: 5 Daughter states she was ambulating [place] walker [place] with SBA from another healthcare worker. PT Evaluation-Current Subjective Patient in bed pre tx, agrees to PT, has no complaints of pain. Pt/Family Goals "to get around better" Objective Patient Orientation: Person, Confused Attachments: Oxygen, Roland Catheter, IV ROM/Strength ROM Lower Extremities WNL Strength Lower Extremities RLE 4/5 gross, LLE 2/5 gross except for dorsiflexion 1/5 Neuromuscular (Tone, Coordination, Reflexes) Patient seems to have increased tone in left leg, positive babinski Sensory Hearing: Functional Sensation Right Lower Extremit: Intact Sensation Left Lower Extremity: Intact Transfers Therapy Code Descriptions/Definitions Functional [place] Measure: 0=Not Assessed/NA 4=Minimal Assistance 1=Total Assistance 5=Supervision or Setup 2=Maximal Assistance 6=Modified [place] 3=Moderate Assistance 7=Complete [place] Transfers (B, C, W/C) (FIM): 3 Scootin Rollin Supine to/from Sit: 3 Sit to/from Stand: 4 bed t/f WC(FIM only if WC use): 4 Patient performs bed mobility and supine to sit with mod assist, sit to stand and transfers with min assist. Cues for hand placement and safety. Gait Mode of Locomotion: Walk Anticipated Mode of Locomotion: Walk Gait (FIM): 1 Distance: 3' Gait Level of Assist: 4 Gait Persons Needed: 1 Gait Assistive Device: Handheld Assist Comments/Gait Description min assist, patient has difficulty stepping with left leg Treatment LE exercises x15 (AP, LAQ), mostly AAROM on the LLE Assessment/Needs Patient has impaired mobility, strength, endurance, balance post CVA. She can bear weight on her left leg but leans on it and has trouble stepping. Rehab Potential: Fair PT Short Term Goals Short Term Goals Time Frame: July 25, 2018 Transfers (B,C,W/C) (FIM): 4 (CGA) Gait (FIM): 1 Gait Distance Comment: 20' Gait Level of Assist: 4 Gait Assistive Device: FWW PT Plan Problem List Problem List: Activity Tolerance, Functional Strength, Safety, Balance, Gait, Transfer, Bed Mobility, ROM Treatment/Plan Treatment Plan: Continue Plan of Care Treatment Plan: Bed Mobility, Education, Functional Activity Sarah, Functional Strength, Gait, Safety, Therapeutic Exercise, Transfers Treatment Duration: July 25, 2018 Frequency: 6 times per week Estimated Hrs Per Day: .25 hour per day (15-30') Patient and/or Family Agrees t: Yes Safety Risks/Education Patient Education: Gait Training, Transfer Techniques, Correct Positioning, Safety Issues Teaching Recipient: Patient Teaching Methods: Demonstration, Discussion Response to Teaching: Reinforcement Needed Discharge Recommendations Plan Patient will perform bed mobility and transfer training, balance and endurance training, functional strengthening, gait training, and education, to improve functional mobility and independence at home. Therapy D/C Recommendations: Home w/ Family Support, Snf (TCU/NH) Time/GCodes Time In: 0950 Time Out: 1010 Total Billed Treatment Time: 20 Total Billed Treatment 1 visit MODESTO Holden' KATHRINE ODONNELL PT Jul 18, 2018 10:21
--- NOTE | 2018-07-18 11:19 | NUR ---
PT TO MRI VIA W/C AND THEN TO BE TRANSFERRED TO ROOM 422 VERBAL ORDER RECEIVED TO TRANSFER FROM DR COOPER EARLIER THIS AM, REPORT GIVEN TO Renuka ULLOA RN. PT'S PERSONAL BELONGINGS TO ROOM 422.
--- NOTE | 2018-07-18 12:32 | Diagnostic Imaging Report ---
PROCEDURE: MR imaging of the brain without contrast. TECHNIQUE: Multiplanar, multisequence MR imaging of the brain was performed without contrast. INDICATION: Left weakness FINDINGS: Examination is markedly limited due to motion on several of the acquisitions. There is prominence of the ventricles and sulci. There is moderate chronic microvascular ischemic disease. There is a subtle area of mild diffusion restriction in the posterior right frontal lobe likely reflecting subacute CVA. There is no mass. There is no hemorrhage. There is no extra-axial fluid collection. Sinuses and mastoid air cells are clear. IMPRESSION: Technically limited exam due to motion. There is some subtle diffusion restriction in the posterior right frontal lobe likely reflecting subacute hemorrhage. There is however no evidence of hemorrhagic conversion. Atrophy and some chronic microvascular ischemic disease. Dictated by: Dictated on workstation # [id number]
--- NOTE | 2018-07-18 12:42 | Diagnostic Imaging Report ---
PROCEDURE: MR angiography of the brain without the use of contrast. TECHNIQUE: 3D [id number] non contrast enhanced MR angiography of the head was performed. A source data was reformatted into rotating MIP projections. INDICATION: Left weakness. FINDINGS: The examination is markedly limited due to motion. There is a dominant left vertebral artery. The basilar artery and distal internal carotid arteries appear to be patent. Only the very proximal portion of the middle cerebral artery and anterior cerebral arteries are appreciated. There is no visualized large vessel occlusion. There is no obvious aneurysm or vascular malformation. IMPRESSION: Markedly limited exam due to motion with no obvious central large vessel occlusion. If high clinical concern persists further evaluation with CTA should be considered. Dictated by: Dictated on workstation # [id number]
--- NOTE | 2018-07-18 12:45 | Diagnostic Imaging Report ---
PROCEDURE: MR angiography neck without contrast. TECHNIQUE: Non contrast enhanced MR angiography of the neck was performed. Source data was reformatted into rotating MIP projections. INDICATION: CVA. FINDINGS: The examination is limited due to motion. Common carotid artery is widely patent. There appears to be some plaque about the carotid bifurcations bilaterally. There appears to be a greater than 50% stenosis of the proximal left internal carotid artery. There is also an approximately 50% stenosis at the origin of the right internal carotid artery. The dominant left vertebral artery. There is no obvious dissection or occlusion in the cervical carotid arteries or vertebral arteries. IMPRESSION: Technically limited exam due to motion. There does appear to be significant stenosis at the origin of both internal carotid arteries at least greater than 50%. Recommend clinical correlation and if warranted followup with carotid duplex. Dictated by: Dictated on workstation # [id number]
--- NOTE | 2018-07-18 13:00 | NUR ---
TRANSFERRED FROM ICU AND MRI PER BED. ALERT AND COOPERATIVE. FAMILY AT BEDSIDE. LEFT SIDED WEAKNESS CONTINUES. GOOD VERBAL RESPONSE. DENIES HEADACHE.
--- NOTE | 2018-07-18 13:46 | NUR ---
LOBITO/CRISTINA. Patient has established placement with [facility]. She is insured under a Medicare replacement, [employer], and while she was skilled status prior to hospitalization, facility will need to get a new pre-authorization before she can return. This should be initiated within a 2-3 day window before patient is set to discharge to avoid continued hospital stay past her medical stability. Continue intermittent review for discharge planning. Addendum: 07/18/18 at 1524 by AMADOU EVANS Faxed clinical information to [facility] who will begin resume authorization with patient's insurance.
--- NOTE | 2018-07-18 13:47 | ST Cognitive Linguistic Eval ---
Speech Evaluation-General Medical Diagnosis stroke Onset Date: Jul 17, 2018 Therapy Diagnosis Therapy Diagnosis: Cognitive-communication Precautions Precautions/Isolations: Fall Prevention, Standard Precautions, Pressure Ulcer Medical History Pertinent Medical History: Arthritis, CVA, GERD, HTN Reviewed History: Yes Social History Home: Longterm Speech PLF-Current Status Prior Level of Function The patient lives in [facility] where she has been receiving skilled therapy. The patient receives assistance with all of her daily needs. Subjective The patient was pleasant and recognized me when I entered her room. Language Eval: Auditory Comprehends Simple Yes/No Ques: Functional Follows 1-Step Commands: Functional Follows Complex Directions: Mild Follows General Conversations: Functional Language Eval: Verbal Language Completes Spontaneous Greeting: Functional Produces Auto, Serial Info: Functional Imitates Simple Words/Phrases: Functional Word Finding: Functional Requests Basic Needs: Functional States Basic Personal Info: Functional Expresses Complex Ideas: Mild Objective Cognitive Domain Attention: WNL Memory: WNL Problem Solving: Mild Executive Functions: Mild Objective Formal/Standardized Tests Hemal Cognitive Assessment Results Visuospatial/Executive: 4/5, Namin/3, Memory: Immediate 4/5, Delayed with cues 3/5, Attention: 6/6, Language: 3/3, Orientation: 6/6 Oral Motor/Speech Production Within Functional Limits Impression The patient is a pleasant 73 year old female who was admitted to the hospital from the SNF due to CVA. She completed the MOCA with minimal difficulty with occasional redirections. The patient scored with slight deficits in memory and executive function. She was noted to depend on her daughter for assistance in answering questions throughout the session. Speech-Plan Patient/Family Goals Patient/Family Goals: The patient will be returning back to the SNF with continued therapy as needed. Treatment Plan Speech Therapy Treatment Plan: Discontinue ST The patient does not warrant skilled St services at this time. Treatment Duration: Jul 18, 2018 Frequency: 1 time per week Estimated Hrs Per Day: .25 hour per day Rehab Potential: Fair Barriers to Learning: PMH of multiple strokes Pt/Family Agrees to Plan: Yes Safety Risks/Education Teaching Recipient: Patient, Family Teaching Methods: Discussion Response to Teaching: Verbalize Understanding Education Topics Provided: Safety within her room and upon return to the SNF Time Speech Therapy Time In: 10:10 Speech Therapy Time Out: 10:25 Total Billed Time: 15 Billed Treatment Time 1, LIANDCOMP JAYCEE Urias Jul 18, 2018 13:47
--- NOTE | 2018-07-18 14:20 | Occupational Therapy Eval ---
OT Evaluation-General/PLF Medical Diagnosis Admission Date Jul 17, 2018 at 14:36 Medical Diagnosis: stroke Onset Date: Jul 17, 2018 Therapy Diagnosis Therapy Diagnosis: decreased self care skills Height/Weight Height (Feet): 5 Height (Inches): 5.00 Weight (Pounds): 176 Weight (Ounces): 6.4 Precautions Precautions/Isolations: Fall Prevention, Standard Precautions, Pressure Ulcer Safety Interventions: Bed Exit Alarm Referral Physician: Susanne Livingston MD Medical History Pertinent Medical History: Arthritis, CVA, GERD, HTN Additional Medical History Chronic kidney disease, valvular heart disease, cataract, glaucoma Reviewed History: Yes Social History Home: Long-Term ADL-Prior Level of Function Therapy Code Descriptions/Definitions Functional [place] Measure: 0=Not Assessed/NA 4=Minimal Assistance 1=Total Assistance 5=Supervision or Setup 2=Maximal Assistance 6=Modified [place] 3=Moderate Assistance 7=Complete [place] Therapy Quality Codes: 6 Independent with activity with or without an assistive device 5 Patient requires set up or clean up by helper. Patient completes activity by themselves 4 Supervision or touching assist (CGA). Odd provide cues , steadying assist 3 The helper provides less than half the effort to complete the activity 2 The helper provides more than half the effort to complete the activity 1 Dependent. The helper does all the effort to complete an activity 7 Patient refused to complete or attempt activity 9 The patient did not perform the activity before the current illness or injury 88 Not attempted due to Medical conditions or safety concerns Functional Abilities and Goals: Independent: Patient completed the activities by him/herself, with or without an assistive device, with no assistance from a helper. Needed Some Help: Patient needed partial assistance from another person to complete activities. Dependent: A helper completed the activities for the patient. Unknown: Not Applicable: ADL PLOF Comments Pt states she was walking with a walker, but someone was with her at all times. States she can feed herself and complete grooming, but has some assist with dressing and bathing. Self Care: Needed Some Help OT Current Status Subjective Pt in bed, agrees to therapy. Pt states she is having some back pain after having MRI. Mental Status/Objective Patient Orientation: Person, Place Current Glasses/Contacts: Yes Dentures/Partials: Yes Hand Dominance: Right Upper Extremity ROM Right UE grossly WFL Left UE decreased secondary to prior CVA. Pt has some increased tone. Upper Extremity Coordination Impaired left UE ADL-Treatment ADL-Current Pt supine to sit with moderate assistance. Pt transferred to chair with minimal assistance. Pt's meal tray arrived. Assist required to open containers. Pt then able to feed herself using right UE. Pt sitting in chair eating lunch with chair alarm in place after session. RN aware. Therapy Code Descriptions/Definitions Functional [place] Measure: 0=Not Assessed/NA 4=Minimal Assistance 1=Total Assistance 5=Supervision or Setup 2=Maximal Assistance 6=Modified [place] 3=Moderate Assistance 7=Complete [place] Therapy Quality Codes: 6 Independent with activity with or without an assistive device 5 Patient requires set up or clean up by helper. Patient completes activity by themselves 4 Supervision or touching assist (CGA). Odd provide cues , steadying assist 3 The helper provides less than half the effort to complete the activity 2 The helper provides more than half the effort to complete the activity 1 Dependent. The helper does all the effort to complete an activity 7 Patient refused to complete or attempt activity 9 The patient did not perform the activity before the current illness or injury 88 Not attempted due to Medical conditions or safety concerns Eating (FIM): 5 Education OT Patient Education: Rehab process Teaching Recipient: Patient Teaching Methods: Discussion Response to Teaching: Reinforcement Needed OT Short Term Goals Short Term Goals Transfers (B,C,W/C) (FIM): 4 (CGA) 1=Demonstrate adherence to instructed precautions during ADL tasks. 2=Patient will verbalize/demonstrate understanding of assistive devices/ modifications for ADL. 3=Patient will improve strength/tolerance for activity to enable patient to perform ADL's. OT Machinist Class B Goals Half-Way Goals Time Frame: July 25, 2018 Grooming(FIM): 5 Upper Body Dressing(FIM): 4 Lower Body Dressing(FIM): 3 Toileting(FIM): 3 Toilet/Commode Transfer(FIM): 4 Additional Goals: 2-Verbalize Understanding, 3-ImproveStrength/Sarah 1=Demonstrate adherence to instructed precautions during ADL tasks. 2=Patient will verbalize/demonstrate understanding of assistive devices/ modifications for ADL. 3=Patient will improve strength/tolerance for activity to enable patient to perform ADL's. OT Education/Plan Problem List/Assessment Assessment: Decreased Activ Tolerance, Decreased UE Strength, Dependent Transfers, Impaired Coordination, Impaired Funct Balance, Impaired I ADL's, Impaired Self-Care Skills, Restricted Funct UE ROM Pt to benefit from skilled OT intervention for ADL training, transfers, strengthening, and safety education to increase independence and allow safe discharge. Discharge Recommendations Plan/Recommendations: Continue POC Treatment Plan/Plan of Care Treatment,Training & Education: Yes Patient would benefit from OT for education, treatment and training to promote independence in ADL's, mobility, safety and/or upper extremity function for ADL' s. Plan of Care: ADL Retraining, Functional Mobility, UE Funct Exercise/Act Treatment Duration: July 25, 2018 Frequency: 5 times per week Estimated Hrs Per Day: .25 hour per day Rehab Potential: Fair Time/GCodes Start Time: 13:48 Stop Time: 14:05 Total Time Billed (hr/min): 17 Billed Treatment Time 1 visit, [place](17minutes) TELLO CHAIREZ OT Jul 18, 2018 14:20
--- NOTE | 2018-07-18 15:48 | Consultation-Cardiology ---
HPI-Cardiology Cardiology Consultation Date of Consultation 07/18/18 Date of Admission Time Seen by Provider: 15:51 Indication: change in mental status HPI 73-year-old lady with history of CVA with residual left-sided weakness, admitted through the emergency room for change in mental status with confusion, feeling foggy and disoriented, have worsening facial droop and weakness on the left side. Overnight has improved. She is reporting improvement, still having weakness on the left side back to her baseline, oriented at this time. Not confused. Denied any chest pain. No palpitation. Does not recall the event well. Home Medications & Allergies Allergies: Coded Allergies: No Known Drug Allergies (Verified , 09/08/12) Home Medication List Reviewed: Yes TYF-Svjivk-Erdfnj Hx Patient Social History Alcohol Use: Rarely Uses Recreational Drug Use: No Smoking Status: Former Smoker Type Used: Cigarettes 2nd Hand Smoke Exposure: No Recent Foreign Travel: No Recent Infectious Disease Expo: No Recent Hopitalizations: No Immunizations Up To Date Tetanus Booster (TDap): Unknown Date of Pneumonia Vaccine: Nov 19, 2013 Date of Influenza Vaccine: Nov 19, 2017 Past Medical History discussed below Family Medical History Family History: FH: CVA (cerebrovascular accident) G8 BROTHER G8 SISTER FH: breast cancer 19 MOTHER FH: cancer 19 FATHER Hypertension 19 MOTHER Review of Systems Constitutional: see HPI, malaise, weakness EENTM: see HPI, no symptoms reported Respiratory: see HPI, dyspnea on exertion Cardiovascular: see HPI; No chest pain, No edema, No Hx of Intervention, No palpitations, No syncope, No vascular heart diseas, No other Gastrointestinal: no symptoms reported, see HPI Genitourinary: no symptoms reported, see HPI Musculoskeletal: no symptoms reported, see HPI Skin: no symptoms reported, see HPI Psychiatric/Neurological: No Symptoms Reported, See HPI Reviewed Test Results Reviewed Test Results Lab Laboratory Tests Test 07/18/18 04:00 Range/Units White Blood Count 6.3 4.3-11.0 10^3/uL Red Blood Count 3.93 L 4.35-5.85 10^6/uL Hemoglobin 9.5 L 11.5-16.0 G/DL Hematocrit 33 L 35-52 % Mean Corpuscular Volume 84 80-99 FL Mean Corpuscular Hemoglobin 24 L 25-34 PG Mean Corpuscular Hemoglobin Concent 29 L 32-36 G/DL Red Cell Distribution Width 15.5 H 10.0-14.5 % Platelet Count 183 130-400 10^3/uL Mean Platelet Volume 9.8 7.4-10.4 FL Neutrophils (%) (Auto) 62 42-75 % Lymphocytes (%) (Auto) 27 12-44 % Monocytes (%) (Auto) 9 0-12 % Eosinophils (%) (Auto) 1 0-10 % Basophils (%) (Auto) 0 0-10 % Neutrophils # (Auto) 4.0 1.8-7.8 X 10^3 Lymphocytes # (Auto) 1.7 1.0-4.0 X 10^3 Monocytes # (Auto) 0.6 0.0-1.0 X 10^3 Eosinophils # (Auto) 0.1 0.0-0.3 10^3/uL Basophils # (Auto) 0.0 0.0-0.1 10^3/uL Sodium Level 141 135-145 MMOL/L Potassium Level 4.4 3.6-5.0 MMOL/L Chloride Level 111 H 98-107 MMOL/L Carbon Dioxide Level 20 L 21-32 MMOL/L Anion Gap 10 5-14 MMOL/L Blood Urea Nitrogen 17 7-18 MG/DL Creatinine 1.40 H 0.60-1.30 MG/DL Estimat Glomerular Filtration Rate 37 BUN/Creatinine Ratio 12 Glucose Level 100 70-105 MG/DL Calcium Level 9.7 8.5-10.1 MG/DL Phosphorus Level 3.9 2.3-4.7 MG/DL Magnesium Level 1.8 1.8-2.4 MG/DL Radiology CT head 07/17: IMPRESSION: Atrophy and chronic microvascular ischemic disease with several areas of encephalomalacia compatible with prior CVAs. While there has been no acute interval change in light of the degree of white matter disease and prior CVAs, it is difficult to exclude an acute CVA. If high clinical concern persists , further evaluation with MRI should be considered. No other acute intracranial abnormality. CXR 07/17: No acute changes Physical Exam Vital Signs Vital Signs - First Documented 07/17/18 07/17/18 07/17/18 07/18/18 11:32 14:54 15:15 02:00 Temp 98.4 Pulse 78 Resp 18 B/P (MAP) 178/90 (119) Pulse Ox 97 O2 Delivery Room Air O2 Flow Rate 2.00 Capillary Refill : Less Than 3 Seconds Height, Weight, BMI Height: 5'5.00" Weight: 176lbs. 6.4oz. [id number]; 28.3 BMI Method:Stated General Appearance: WD/WN, Mild Distress Eyes: Bilateral Eye Normal Inspection, Bilateral Eye PERRL, Bilateral Eye EOMI HEENT: PERRL/EOMI, TMs Normal, Normal ENT Inspection, Pharynx Normal Neck: Full Range of Motion, Normal Inspection, Non Tender, Supple, Carotid Bruit Respiratory: Chest Non Tender, Lungs Clear, Normal Breath Sounds, No Accessory Muscle Use, No Respiratory Distress Cardiovascular: Regular Rate, Rhythm, No Edema, No Gallop, No JVD, Normal Peripheral Pulses, Systolic Murmur Gastrointestinal: Normal Bowel Sounds, No Organomegaly, No Pulsatile Mass, Non Tender, Soft Back: Normal Inspection, No CVA Tenderness, No Vertebral Tenderness Extremity: Normal Capillary Refill, Normal Inspection, Normal Range of Motion, Non Tender, No Calf Tenderness, No Pedal Edema Neurologic/Psychiatric: Alert, Oriented x3, Normal Mood/Affect, Other (left- sided weakness) Skin: Normal Color, Warm/Dry Lymphatic: No Adenopathy A/P-Cardiology Admission Diagnosis Acute change in mental status Subacute CVA Hypertension Paroxysmal atrial fibrillation Assessment/Plan Acute change in mental status, resolved, back to her baseline. MRI of the head showed questionable new infarct. Will discuss with radiologist prior to adjusting her medication. I discussed the management with Dr. Livingston. History of multiple CVA, last episode occurred on December 2016. Was on aspirin and Plavix. Hypercoagulable state workup has been negative, patient had normal protein C, protein S and, antithrombin III. Her factor V Leiden was normal, in a was less than 1-80, anticardiolipin antibody were negative, factor II mutant was also negative. 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 Most recent 2-D echocardiogram revealed normal EF with dilated left atrium. Atrial fibrillation detected on loop recorder. Maintained on Xarelto. Plavix and aspirin were discontinued, I will restart aspirin at 81 mg daily and continue on Xarelto and monitor Peripheral arterial disease, history of claudication, reporting improvement at this time. Continue to monitor, last ALYSA was done in 2015 was normal. Paroxysmal atrial fibrillation- mainly short episodes of atrial fibrillation per Linq interrogation. Currently on Xarelto, continue to monitor. Hypertension, well controlled on the current medications no changes are recommended. continue to monitor blood pressure Hyperlipidemia, continue to monitor lipids CYP 2C19 showed intermediate metabolizer. Mild bilateral carotid stenosis, last ultrasound was done in December 2017 History of syncope, reporting improvement. No further syncopal episodes were reported History of single kidney with chronic renal insufficiency, followed and monitored by Dr. Travis. History of osteoarthritis, rheumatoid arthritis. History of fibromyalgia. History of depression. History of elevated LPa Multiple risk factors for underlying coronary artery disease. No recent workup done. I will evaluate Lexiscan stress test. Clinical Quality Measures DVT/VTE Risk/Contraindication: Risk Factor Score Per Nursin RFS Level Per Nursing on Admit: 4+=Very High Stroke: Date of last known well: Jul 14, 2018 Symptoms onset unknown: Yes DOMI MARTINEZ MD Jul 18, 2018 15:48
--- NOTE | 2018-07-18 16:20 | Diagnostic Imaging Report ---
PROCEDURE: US carotid duplex, bilateral. TECHNIQUE: Multiple Real-time grayscale images were obtained over the carotid arteries in various projections bilaterally. Additional spectral analysis and color Doppler duplex images were also obtained. INDICATION: Hypertension and syncope. FINDINGS: There are no focally elevated velocities in either internal carotid artery. The ICA/CCA ratios are within normal limits bilaterally. There is antegrade flow in the vertebral arteries bilaterally. Grayscale images demonstrate minimal carotid plaque bilaterally. IMPRESSION: Minimal bilateral carotid plaque; however, spectral analysis shows no evidence of a hemodynamically significant stenosis in either internal carotid artery. MEASUREMENTS: Parameters based on the consensus panel Paz-Scale and Doppler ultrasound criteria published January 2003, Radiology, Volume 229. DOPPLER (peak systolic velocity M/S Right Left CCA 46.7 69 ICA Proximal 41.1 34.5 ICA Mid 45.2 95.1 ICA Distal 59.5 71.4 RATIO 1.27 1.38 ECA 54.5 48.5 VERT 26.7 55.3 Dictated by: Dictated on workstation # [id number]
[2018-07-18] MEDS: ACETAMINOPHEN 325 MG TABLET PO PRN (17:35)
[2018-07-18] MEDS: RIVAROXABAN 20 MG TABLET (XARELTO) PO SCH (17:37)
[2018-07-18] MEDS ORDERED: NON-FORMULARY MEDICATION 1 EA EA (Amlodipine Besylate 5 MG) PO SCH (21:00)
[2018-07-18] MEDS ORDERED: NON-FORMULARY MEDICATION 1 EA EA (Escitalopram Oxalate (Lexapro) 10 MG) PO SCH (21:00)
[2018-07-18] MEDS ORDERED: amLODIPine 5 MG (NORVASC) TAB PO SCH (21:00)
[2018-07-18] MEDS: ATORVASTATIN 80 MG (LIPITOR) TABLET PO SCH (21:44)
[2018-07-19] VITALS: BP 173/75
[2018-07-19 04:00] VITALS: BP 172/74
[2018-07-19 04:38] LABS: BASOPHILS % (AUTO) 1 % (0-10); EOSINOPHILS # (AUTO) 0.2 10^3/uL (0.0-0.3); EOSINOPHILS % (AUTO) 4 % (0-10); HEMATOCRIT 34 % (35-52); HEMOGLOBIN 9.9 G/DL (11.5-16.0); LYMPHOCYTES # (AUTO) 1.8 X 10^3 (1.0-4.0); LYMPHOCYTES % (AUTO) 36 % (12-44); MEAN CORPUSCULAR HEMOGLOBIN 25 PG (25-34); MEAN CORPUSCULAR HGB CONC 29 G/DL (32-36); MEAN CORPUSCULAR VOLUME 85 FL (80-99); MEAN PLATELET VOLUME 10.7 FL (7.4-10.4); MONOCYTES # (AUTO) 0.5 X 10^3 (0.0-1.0); MONOCYTES % (AUTO) 10 % (0-12); NEUTROPHILS # (AUTO) 2.5 X 10^3 (1.8-7.8); NEUTROPHILS % (AUTO) 49 % (42-75); PLATELET COUNT 166 10^3/uL (130-400); RED CELL DISTRIBUTION WIDTH 15.4 % (10.0-14.5); WHITE BLOOD COUNT 5.1 10^3/uL (4.3-11.0)
[2018-07-19 04:52] LABS: CALCIUM 9.8 MG/DL (8.5-10.1); CREATININE SERUM 1.27 MG/DL (0.60-1.30); MAGNESIUM 1.7 MG/DL (1.8-2.4); PHOSPHORUS 3.8 MG/DL (2.3-4.7); POTASSIUM 3.9 MMOL/L (3.6-5.0)
[2018-07-19 08:00] VITALS: BP 162/82
[2018-07-19] MEDS ORDERED: ASPIRIN E.C. 81 MG (ECOTRIN) TAB PO SCH (09:00)
[2018-07-19] MEDS: DOCUSATE SODIUM 100 MG (COLACE) CAP PO SCH (09:50)
[2018-07-19] MEDS: GABAPENTIN 300 MG (NEURONTIN) CAP PO SCH (09:51)
--- NOTE | 2018-07-19 10:11 | Cardiology Progress Note ---
Subjective Date Seen by Provider: July 19, 2018 Time Seen by Provider: 10:09 Subjective/Events-last exam patient is laying down in bed, feeling better. No new complaint. No chest pain Review of Systems General: No Chills, No Night Sweats, No Fatigue, No Malaise, No Appetite, No Other HEENT: No Head Aches, No Visual Changes, No Eye Pain, No Ear Pain, No Dysphasia , No Sinus Congestion, No Post Nasal Drip, No Sore Throat, No Other Pulmonary: No Dyspnea, No Cough, No Pleuritic Chest Pain, No Other Cardiovascular: No: Chest Pain, Palpitations, Orthopnea, Paroxysmal Noc. Dyspnea, Edema, Lt Headedness, Other Objective-Cardiology Exam Last Set of Vital Signs Vital Signs 07/18/18 07/19/18 12:00 08:00 Temp 97.7 Pulse 73 Resp 16 B/P (MAP) 162/82 (108) Pulse Ox 97 O2 Delivery Room Air O2 Flow Rate 1.00 Capillary Refill : Less Than 3 Seconds I&O Intake and Output 07/19/18 00:00 Intake Total 2760 ml Output Total 1975 ml Balance 785 ml Intake Oral 1760 ml IV Total 1000 ml Output Urine Total 1975 ml General: Alert, Oriented X3, Cooperative HEENT: Atraumatic, PERRLA Neck: Supple, No JVD, No Thyromegaly Lungs: Clear to Auscultation, Normal Air Movement Heart: Regular Rate, Normal S1, Normal S2, No Murmurs Abdomen: Normal Bowel Sounds, Soft, No Tenderness, No Hepatosplenomegaly, No Masses Extremities: No Clubbing, No Cyanosis, No Edema, Normal Pulses, No Tenderness/ Swelling Skin: No Rashes, No Breakdown, No Significant Lesion Neuro: Other (left-sided weakness) Psych/Mental Status: Mental Status NL, Mood NL Results Lab Laboratory Tests 07/19/18 04:15 A/P-Cardiology Admission Diagnosis Acute change in mental status Subacute CVA Hypertension Paroxysmal atrial fibrillation Assessment/Plan Acute change in mental status, resolved, back to her baseline. MRI of the head showed questionable new infarct, discrepancy between the typed report and the verbal report, Dr. Livingston has visited with the radiologist and reported that there is no active bleed or recent bleed on the MRI. There is questionable severe ostial carotid stenosis, the quality of the MRA was suboptimal, recommended CT scan. The carotid ultrasound did not show significant disease. I will decrease aspirin to 81 mg daily in addition to continuing on Xarelto History of multiple CVA, last episode occurred on December 2016. Was on aspirin and Plavix. Hypercoagulable state workup has been negative, patient had normal protein C, protein S and, antithrombin III. Her factor V Leiden was normal, in a was less than 1-80, anticardiolipin antibody were negative, factor II mutant was also negative. 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 Most recent 2-D echocardiogram revealed normal EF with dilated left atrium. Atrial fibrillation detected on loop recorder. Maintained on Xarelto. Plavix was discontinued, I will restart aspirin at 81 mg daily and continue on Xarelto and monitor Peripheral arterial disease, history of claudication, reporting improvement at this time. Continue to monitor, last ALYSA was done in 2015 was normal. Paroxysmal atrial fibrillation- mainly short episodes of atrial fibrillation per Linq interrogation. Currently on Xarelto, continue to monitor. Hypertension, well controlled on the current medications no changes are recommended. continue to monitor blood pressure Hyperlipidemia, continue to monitor lipids CYP 2C19 showed intermediate metabolizer. Mild bilateral carotid stenosis, last ultrasound was done in December 2017 History of syncope, reporting improvement. No further syncopal episodes were reported History of single kidney with chronic renal insufficiency, followed and monitored by Dr. Travis. History of osteoarthritis, rheumatoid arthritis. History of fibromyalgia. History of depression. History of elevated LPa Multiple risk factors for underlying coronary artery disease. No recent workup done. I will evaluate Lexiscan stress test. Clinical Quality Measures DVT/VTE Risk/Contraindication: Risk Factor Score Per Nursin RFS Level Per Nursing on Admit: 4+=Very High Stroke: Date of last known well: Jul 14, 2018 Symptoms onset unknown: Yes DOMI MARTINEZ MD July 19, 2018 10:11
--- NOTE | 2018-07-19 11:09 | Occupational Ther Daily Note ---
OT Current Status-Daily Note Subjective pt laying in bed upon OT Arrival. pt agreed to OT TX session with focus on increasing coordination in LUE and functional transfers. pt perseverated throughout TX session on IV site stating "this is ugly" Mental Status/Objective Therapy Code Descriptions/Definitions Functional [place] Measure: 0=Not Assessed/NA 4=Minimal Assistance 1=Total Assistance 5=Supervision or Setup 2=Maximal Assistance 6=Modified [place] 3=Moderate Assistance 7=Complete [place] Other Treatment pt education on supine to sit/ proper hand placements. pt required MOD A to perform supine to sit. pt maintained static sitting balance with supervision for safety/ balance. while sitting EOB pt education on using VC to increase grasp and release with L hand. pt demo ability to gasp 10 items and VC "open"to open hand and release item. pt then perform ability to perform stand pivot transfer using no AE from bed to chair with CGA for safety/ balance in prep for completing toilet transfers. . Education OT Patient Education: Energy conservation, Progress toward Goal/Update tx plan , Purpose of tx/functional activities, Transfer techniques Teaching Recipient: Patient Teaching Methods: Demonstration, Discussion Response to Teaching: Verbalize Understanding, Return Demonstration OT Short Term Goals Short Term Goals Transfers (B,C,W/C) (FIM): 4 (CGA) 1=Demonstrate adherence to instructed precautions during ADL tasks. 2=Patient will verbalize/demonstrate understanding of assistive devices/ modifications for ADL. 3=Patient will improve strength/tolerance for activity to enable patient to perform ADL's. OT Long-Term Goals Control Officer Goals Time Frame: July 25, 2018 Grooming(FIM): 5 Upper Body Dressing(FIM): 4 Lower Body Dressing(FIM): 3 Toileting(FIM): 3 Toilet/Commode Transfer(FIM): 4 Additional Goals: 2-Verbalize Understanding, 3-ImproveStrength/Sarah 1=Demonstrate adherence to instructed precautions during ADL tasks. 2=Patient will verbalize/demonstrate understanding of assistive devices/ modifications for ADL. 3=Patient will improve strength/tolerance for activity to enable patient to perform ADL's. OT Education/Plan Problem List/Assessment Assessment: Decreased Activ Tolerance, Decreased Safety Aware, Decreased UE Strength, Impaired Coordination, Impaired Funct Balance, Impaired I ADL's, Impaired Self-Care Skills, Restricted Funct UE ROM Pt to benefit from skilled OT intervention for ADL training, transfers, strengthening, and safety education to increase independence and allow safe discharge. Discharge Recommendations Plan/Recommendations: Continue POC Treatment Plan/Plan of Care Patient would benefit from OT for education, treatment and training to promote independence in ADL's, mobility, safety and/or upper extremity function for ADL' s. Plan of Care: ADL Retraining, Functional Mobility, UE Funct Exercise/Act Treatment Duration: July 25, 2018 Frequency: 5 times per week Estimated Hrs Per Day: .25 hour per day Rehab Potential: Fair Time/GCodes Start Time: 10:35 Stop Time: 11:00 Billed Treatment Time FA 25 minutes, 2 units RENETTA LIPSCOMB OT July 19, 2018 11:09
[2018-07-19 12:00] VITALS: BP 165/96
[2018-07-19] MEDS: ACETAMINOPHEN 325 MG TABLET PO PRN (12:31)
--- NOTE | 2018-07-19 13:49 | Discharge Inst-Skilled Nursing ---
Discharge Inst-Skilled NF Patient Instructions Patient Problems: CVA with left sided weakness Goal: Improved ambulation and self-care Consult/Follow Up/Orders Skilled NF Admit to: [facility] [place] Certifications SNF I certify that SNF services are required to be given on an inpatient basis because of the above named patient's need for nursing home care on a continuing basis for the conditions(s) for which he/she was receiving inpatient hospital services prior to his/her transfer to the SNF. [facility] Facility Order: Nursing Services, Wrapping Machine Helper-Evaluate & Treat, Physical Therapy-Evaluate & Treat, Speech Language-Evaluate & Treat Oxygen Delivery Method: Room Air Discharge Diet: Cardiac Diet Daily Activity as Tolerated: Yes Discharge Medications Continued Medications: Acetaminophen (Tylenol) 325 Mg Tablet 650 MG PO Q4H PRN for PAIN-MILD, TAB (This prescription has been renewed) Amlodipine Besylate (Amlodipine Besylate) 5 Mg Tablet 5 MG PO HS, TAB Aspirin (Aspirin EC) 81 Mg Tablet.dr 81 MG PO DAILY, TAB (This prescription has been renewed) Atorvastatin Calcium (Atorvastatin Calcium) 20 Mg Tablet 20 MG PO HS, TAB (This prescription has been renewed) Baclofen (Baclofen) 10 Mg Tablet 10 MG PO TID PRN for MUSCLE SPASMS, TAB (This prescription has been renewed) Bethanechol Chloride (Urecholine) 25 Mg Tablet 25 MG PO TID, TAB (This prescription has been renewed) Brimonidine Tartrate (Brimonidine Tartrate) 5 Ml Btl 1 DROP OU BID, EA Bupropion HCl (Bupropion HCl Sr) 150 Mg Tablet.er 150 MG PO DAILY, TAB Diclofenac Sodium (Voltaren) 100 Gm Gel..gram. 2 GM TP QID PRN for JOINT PAIN, TUBE (This prescription has been renewed) Escitalopram Oxalate (Lexapro) 10 Mg Tablet 10 MG PO HS, TAB (This prescription has been renewed) Gabapentin (Gabapentin) 300 Mg Capsule 300 MG PO BID, CAP Lactulose (Lactulose) 20 Gm/30 Ml Solution 15 ML PO BID, EA (This prescription has been renewed) Latanoprost (Latanoprost) 2.5 Ml Drops 1 DROP OU HS, EA Magnesium Oxide (Magnesium) 400 Mg Tablet 400 MG PO BID, TAB (This prescription has been renewed) Metoprolol Succinate (Metoprolol Succinate) 100 Mg Tab.er.24h 100 MG PO DAILY, TAB (This prescription has been renewed) HOLD AND NOTIFY DR. IF SBP<100 AND/OR DBP<60 AND/OR PULSE </= 60 Pantoprazole Sodium (Pantoprazole Sodium) 40 Mg Tablet.dr 40 MG PO DAILY, TAB (This prescription has been renewed) Pentoxifylline (Pentoxifylline) 400 Mg Tablet.er 400 MG PO DAILY, TAB Promethazine HCl (Phenergan) 25 Mg Supp.rect 25 MG RC Q4H PRN for NAUSEA/VOMITING-2ND LINE, SUPP.RECT (This prescription has been renewed) Rivaroxaban (Xarelto Tablet) 20 Mg Tablet 20 MG PO 1800, TAB (This prescription has been renewed) Tamsulosin HCl (Flomax) 0.4 Mg Cap 0.4 MG PO 1800, CAP (This prescription has been renewed) Tramadol HCl (Tramadol HCl) 50 Mg Tablet 50 MG PO QID PRN for PAIN-MODERATE, TAB (This prescription has been renewed) Kenzie Livingston July 19, 2018 13:48 KENZIE LIVINGSTON MD July 19, 2018 13:49
--- NOTE | 2018-07-19 14:08 | Physical Therapy Daily Note ---
PT Daily Note-Current Subjective Patient in recliner pre tx, agrees to PT, has no complaints of pain. Appearance Patient in recliner post tx with nurse call, phone, tray, all needs met, legs elevated. Mental Status Patient Orientation: Person, Place, Situation Transfers Therapy Code Descriptions/Definitions Functional [place] Measure: 0=Not Assessed/NA 4=Minimal Assistance 1=Total Assistance 5=Supervision or Setup 2=Maximal Assistance 6=Modified [place] 3=Moderate Assistance 7=Complete [place] Therapy Quality Codes: 6 Independent with activity with or without an assistive device 5 Patient requires set up or clean up by helper. Patient completes activity by themselves 4 Supervision or touching assist (CGA). [place] provide cues , steadying assist 3 The helper provides less than half the effort to complete the activity 2 The helper provides more than half the effort to complete the activity 1 Dependent. The helper does all the effort to complete an activity 7 Patient refused to complete or attempt activity 9 The patient did not perform the activity before the current illness or injury 88 Not attempted due to Medical conditions or safety concerns Transfers (B, C, W/C) (FIM): 4 Sit to/from Stand: 4 CGA for sit to stand, leans slightly to left side, needs assist placing her left hand on the walker Gait Training Gait (FIM): 1 Distance: 15' Gait Level of Assist: 4 Gait Persons Needed: 1 Gait Assistive Device: FWW Min assist to help guide walker, poor foot clearance, step-to gait pattern Exercises Seated Therapy Exercises: Ankle pumps, Long arc quads, Hip flexion Seated Reps: 15 (Mostly AAROM on the left side with LAQ and ankle pumps) Treatments transfers, ambulation, LE exercises Assessment Current Status: Fair Progress improved ambulation PT Short Term Goals Short Term Goals Time Frame: July 25, 2018 Transfers (B,C,W/C) (FIM): 4 (CGA) Gait (FIM): 1 Gait Distance Comment: 20' Gait Level of Assist: 4 Gait Assistive Device: FWW PT Plan Problem List Problem List: Activity Tolerance, Functional Strength, Safety, Balance, Gait, Transfer, Bed Mobility, ROM Treatment/Plan Treatment Plan: Continue Plan of Care Treatment Plan: Bed Mobility, Education, Functional Activity Sarah, Functional Strength, Gait, Safety, Therapeutic Exercise, Transfers Treatment Duration: July 25, 2018 Frequency: 6 times per week Estimated Hrs Per Day: .25 hour per day (15-30') Patient and/or Family Agrees t: Yes Safety Risks/Education Patient Education: Gait Training, Transfer Techniques, Correct Positioning, Safety Issues Teaching Recipient: Patient Teaching Methods: Demonstration, Discussion Response to Teaching: Reinforcement Needed Time/GCodes Time In: 1348 Time Out: 1400 Total Billed Treatment Time: 12 Total Billed Treatment 1 visit FA 13' KATHRINE ODONNELL PT July 19, 2018 14:08
--- NOTE | 2018-07-19 14:34 | NUR ---
CM/SS. [facility] skilled placement with [facility] via their transport at 1445. Faxed orders, prepared packet. Updated daughter Daniella Manuel and Unit RN.
--- NOTE | 2018-07-19 17:57 | Discharge Summary ---
Diagnosis/Chief Complaint Date of Admission Jul 17, 2018 at 14:36 Date of Discharge July 19, 2018 Admission Diagnosis Admission Diagnosis Suspected CVA with left sided weakness Discharge Diagnosis See problem list Problems/Diagnosis: (1) Cerebrovascular accident (CVA) with left hemiparesis Assessment & Plan: Acute occurrence in Apr 2018, echo done at that time with normal EF, last carotid US 2016. Had acute worsening of symptoms last several days. Not a candidate for TPA due to unknown last well time and rivaroxaban use. CTA not done due to renal function and low suspicion for need for acute intervention. MRA pending, had to clear with her site monitor. Clinically improved already this am, suspect TIA. PT/OT ordered. Continue aspirin. 07/19- MRA showed some subacute stroke, symptoms improved throughout stay. Discharged on 81 mg aspirin. Status: Chronic (2) Paroxysmal atrial fibrillation Assessment & Plan: On rivaroxaban for anti-coagulation, heart rate controlled. Cardiology consulted. Status: Chronic (3) Hypertension Assessment & Plan: Resume home meds. Qualifiers: Qualified Codes: I10 - Essential (primary) hypertension Status: Chronic (4) Delirium Assessment & Plan: Suspect secondary to TIA and pain medication, resolved this am. Status: Resolved Resolution Date/Time: 07/18/18 @ 12:19 (5) Hyperlipidemia Assessment & Plan: Resume statin. Status: Chronic (6) Depression Assessment & Plan: Resume home meds. Status: Chronic Chief Complaint/HPI Chief Complaint/HPI 73 yo female sent to ER due to left sided weakness starting several days ago with confusion on Tuesday worsening. She has history of CVA with left sided weakness Apr 29, but they were concerned this may be worsening. CT in ER showed chronic changes, could not rule out acute event. MRA was ordered but could not be obtained due to needing more info on loop recorder. She is on Xarelto for a fib. She is unable to provide much history, but does answer questions. Discharge Summary-Simple/Stand Consultations Discharge Physical Examination Allergies: Coded Allergies: No Known Drug Allergies (Verified , 09/08/12) Vitals & I&Os Vital Sign - Last 12Hours Date Time Temp Pulse Resp B/P (MAP) Pulse Ox O2 Delivery O2 Flow Rate FiO2 07/19/18 12:00 98.2 72 18 165/96 (119) 100 Room Air 07/18/18 12:00 1.00 Intake and Output 07/19/18 00:00 Intake Total 660 ml Output Total 950 ml Balance -290 ml General Appearance: Alert, No Acute Distress Respiratory: Clear to Auscultation, Normal Air Movement Cardiovascular: Regular Rate, No Murmurs Neuro: Normal Speech, Other (mild left facial droop, left hand with fingers mildly contracted) Hospital Course See final discharge diagnosis. Radiology Reviewed CT head 07/17: IMPRESSION: Atrophy and chronic microvascular ischemic disease with several areas of encephalomalacia compatible with prior CVAs. While there has been no acute interval change in light of the degree of white matter disease and prior CVAs, it is difficult to exclude an acute CVA. If high clinical concern persists , further evaluation with MRI should be considered. No other acute intracranial abnormality. CXR 07/17: No acute changes Discharge Instructions to patient/family Please see electronic discharge instructions given to patient. Discharge Medications Reviewed and agree with Discharge Medication list on patient's Discharge Instruction sheet Clinical Quality Measures DVT/VTE Risk/Contraindication: Risk Factor Score Per Nursin RFS Level Per Nursing on Admit: 4+=Very High Stroke: Date of last known well: Jul 14, 2018 Symptoms onset unknown: Yes Copy Copies To 1: DANNY Bacon BETHANY N MD July 19, 2018 17:57
--- NOTE | 2018-07-21 17:17 | Physician Query Clarification ---
PQ-Conflicting Diagnosis Admission/Discharge Admission Date: Jul 17, 2018 at 14:36 Discharge Date: July 19, 2018 at 15:00 The medical record reflects the following clinical scenario: History/Risk Factors: left sided weakness, Clinical Findings: MRA showed subacute stroke Treatment: Aspirin, Xarelto, PT/OT Question: Conflicting information in chart, please clarify principal diagnosis below: 1. Acute CVA 2. TIA 3. Other, please specify PHYSICIAN RESPONSE Do you agree w/Consulting Dx?: Yes (TIA) In responding to this query, please exercise your independent professional judgment. The purpose of this communication is to more accurately reflect the complexity of your patients condition. The fact that a question is asked does not imply that any particular answer is desired or expected. Thank you for your timely response to this clarification. Requestors name: [ ] Phone # [ ] THIS PHYSICIAN QUERY FORM IS A PERMANENT PART OF THE MEDICAL RECORD SARAI NOBLES July 21, 2018 17:17 KENZIE COOPER MD July 24, 2018 10:22
== END 2018-07-19 15:00 | DRG 69 ==
LOC: EDUNIT# 11:08 → ER 11:09 → ICU 14:36 → 4TH 07-18 11:17
PROVIDERS: ADMIT Family Medicine; ATTEND Family Medicine
DX: G45.9 Transient cerebral ischemic attack, unspecified (principal); G81.94 Hemiplegia, unspecified affecting left nondominant side; I69.354 Hemiplegia and hemiparesis following cerebral infarction affecting left non-dominant side; Q21.1 Atrial septal defect; F05 Delirium due to known physiological condition; I48.0 Paroxysmal atrial fibrillation; T40.4X5A Adverse effect of other synthetic narcotics, initial encounter; I69.392 Facial weakness following cerebral infarction; I12.9 Hypertensive chronic kidney disease with stage 1 through stage 4 chronic kidney disease, or unspecified chronic kidney disease; N18.3 Chronic kidney disease, stage 3 (moderate); M19.91 Primary osteoarthritis, unspecified site; H40.9 Unspecified glaucoma; F41.9 Anxiety disorder, unspecified; F32.9 Major depressive disorder, single episode, unspecified; E78.5 Hyperlipidemia, unspecified; E11.51 Type 2 diabetes mellitus with diabetic peripheral angiopathy without gangrene; I65.23 Occlusion and stenosis of bilateral carotid arteries; M06.9 Rheumatoid arthritis, unspecified; M79.7 Fibromyalgia; Z87.891 Personal history of nicotine dependence; Z79.01 Long term (current) use of anticoagulants; Z79.82 Long term (current) use of aspirin
CPT/HCPCS: 36415; 70450; 70544; 70547; 70551; 71045; 80048; 80053; 80061; 81000; 82962; 83735; 84100; 84484; 85025; 86141; 87088; 93005; 93880; 96374

== ENCOUNTER 2018-09-21 06:48 | Emergency (ER) | payer MEDICARE ==
[~2018-09-21] VITALS: Ht 160 cm; Wt 72.6 kg
[~2018-09-21 06:48] MED LIST changes: +ACET325T38 PO; +BETH25TA11 PO; +DICL100G18 TP; +ESCI10TA PO; +PROM25SU43 RC
[2018-09-21] MEDS ORDERED: NS IV 1000 ML 1,000 ML IV ONE (07:59)
[2018-09-21 08:07] LABS: BASOPHILS % (AUTO) 1 % (0-10); EOSINOPHILS # (AUTO) 0.1 10^3/uL (0.0-0.3); EOSINOPHILS % (AUTO) 2 % (0-10); HEMATOCRIT 38 % (35-52); HEMOGLOBIN 10.8 G/DL (11.5-16.0); LYMPHOCYTES # (AUTO) 1.2 X 10^3 (1.0-4.0); LYMPHOCYTES % (AUTO) 19 % (12-44); MEAN CORPUSCULAR HEMOGLOBIN 23 PG (25-34); MEAN CORPUSCULAR HGB CONC 29 G/DL (32-36); MEAN CORPUSCULAR VOLUME 79 FL (80-99); MEAN PLATELET VOLUME 10.3 FL (7.4-10.4); MONOCYTES # (AUTO) 0.4 X 10^3 (0.0-1.0); MONOCYTES % (AUTO) 7 % (0-12); NEUTROPHILS # (AUTO) 4.6 X 10^3 (1.8-7.8); NEUTROPHILS % (AUTO) 72 % (42-75); PLATELET COUNT 188 10^3/uL (130-400); RED CELL DISTRIBUTION WIDTH 16.5 % (10.0-14.5); WHITE BLOOD COUNT 6.3 10^3/uL (4.3-11.0)
[2018-09-21 08:14] LABS: BILIRUBIN,URINE NEGATIVE (NEGATIVE); CLARITY,URINE CLEAR; COLOR,URINE YELLOW; GLUCOSE, URINE (UA) NEGATIVE (NEGATIVE); KETONES,URINE NEGATIVE (NEGATIVE); LEUKOCYTE ESTERASE ,URINE NEGATIVE (NEGATIVE); NITRITE,URINE NEGATIVE (NEGATIVE); PH,URINE 7 (5-9); PROTEIN,URINE 2+ (NEGATIVE); UROBILINOGEN,URINE NORMAL (NORMAL)
[2018-09-21 08:26] LABS: ALBUMIN 4.4 GM/DL (3.2-4.5); BILIRUBIN,TOTAL 0.5 MG/DL (0.1-1.0); CALCIUM 10.6 MG/DL (8.5-10.1); CREATININE SERUM 1.58 MG/DL (0.60-1.30); MAGNESIUM 2.1 MG/DL (1.8-2.4); POTASSIUM 4.6 MMOL/L (3.6-5.0); TOTAL PROTEIN 7.1 GM/DL (6.4-8.2)
[2018-09-21 08:34] LABS: BACTERIA,URINE NEGATIVE /HPF; SQUAMOUS EPITHELIAL CELL,UR RARE /HPF
--- NOTE | 2018-09-21 09:03 | ED General ---
General Chief Complaint: General Problems/Pain Stated Complaint: PAIN BACK OF RT LEG, INCONTINENCE Nursing Triage Note: Pt to rm 7 in wheelchair. Pt has multiple complaints. Pt reports feeling disoriented this morning. Pt reports wetting bed and then stripping clothes off. Pt c/o R calf and behind the knee pain that has worsened over the last four days. Pt c/o incontinence however reports this is an ongoing problem. Nursing Sepsis Screen: No Definite Risk Source of Information: Patient, Family, [facility] Records, Old Records Exam Limitations: No Limitations History of Present Illness Date Seen by Provider: Sep 21, 2018 Time Seen by Provider: 07:01 Initial Comments This 73-year-old woman presents to the emergency room with complaints of feeling disoriented this morning. She was incontinent of urine in her bed. She also has been complaining of pain and cramping in the right leg in recent days. She is a resident at [facility]. She had a stroke in April. She has a history of multiple prior strokes. Her pains have made it hard to walk. She has been doing physical therapy. She is anticoagulated on Xarelto. She has paroxysmal atrial fibrillation Allergies and Home Medications Allergies Coded Allergies: No Known Drug Allergies (Verified , 09/08/12) Home Medications Acetaminophen 325 Mg Tablet, 650 MG PO Q4H PRN for PAIN-MILD, (Reported) Amlodipine Besylate 5 Mg Tablet, 5 MG PO HS, (Reported) Aspirin 81 Mg Tablet.dr, 81 MG PO DAILY, (Reported) Atorvastatin Calcium 20 Mg Tablet, 20 MG PO HS, (Reported) Baclofen 10 Mg Tablet, 10 MG PO TID PRN for MUSCLE SPASMS, (Reported) Bethanechol Chloride 25 Mg Tablet, 25 MG PO TID, (Reported) Brimonidine Tartrate 5 Ml Btl, 1 DROP OU BID, (Reported) Bupropion HCl 150 Mg Tablet.er, 150 MG PO DAILY, (Reported) Diclofenac Sodium 100 Gm Gel..gram., 2 GM TP QID PRN for JOINT PAIN, (Reported) Escitalopram Oxalate 10 Mg Tablet, 10 MG PO HS, (Reported) Gabapentin 300 Mg Capsule, 300 MG PO BID, (Reported) Lactulose 20 Gm/30 Ml Solution, 15 ML PO BID, (Reported) Latanoprost 2.5 Ml Drops, 1 DROP OU HS, (Reported) Magnesium Oxide 400 Mg Tablet, 400 MG PO BID, (Reported) Metoprolol Succinate 100 Mg Tab.er.24h, 100 MG PO DAILY, (Reported) HOLD AND NOTIFY DRLizbeth IF SBP<100 AND/OR DBP<60 AND/OR PULSE </= 60 Pantoprazole Sodium 40 Mg Tablet.dr, 40 MG PO DAILY, (Reported) Pentoxifylline 400 Mg Tablet.er, 400 MG PO DAILY, (Reported) Promethazine HCl 25 Mg Supp.rect, 25 MG RC Q4H PRN for NAUSEA/VOMITING-2ND LINE, (Reported) Rivaroxaban 20 Mg Tablet, 20 MG PO 1800, (Reported) Tamsulosin HCl 0.4 Mg Cap, 0.4 MG PO 1800, (Reported) Tramadol HCl 50 Mg Tablet, 50 MG PO QID PRN for PAIN-MODERATE, (Reported) Patient Home Medication List Home Medication List Reviewed: Yes Review of Systems Review of Systems Constitutional: no symptoms reported EENTM: no symptoms reported Respiratory: no symptoms reported Cardiovascular: no symptoms reported Gastrointestinal: no symptoms reported Genitourinary: no symptoms reported : No Musculoskeletal: see HPI Skin: no symptoms reported Psychiatric/Neurological: See HPI Hematologic/Lymphatic: No Symptoms Reported Immunological/Allergic: no symptoms reported Past [id number]-Peaxar-Bnjxhf Hx Past Med/Social Hx: Reviewed and Corrections made Patient Social History Alcohol Use: Rarely Uses Recreational Drug Use: No Smoking Status: Former Smoker Type Used: Cigarettes Former Smoker, Quit: Dec 19, 1986 2nd Hand Smoke Exposure: No Recent Foreign Travel: No Contact w/Someone Who Travel: No Recent Infectious Disease Expo: No Recent Hopitalizations: No Immunizations Up To Date Tetanus Booster (TDap): Unknown PED Vaccines UTD: Yes Date of Pneumonia Vaccine: Nov 19, 2013 Date of Influenza Vaccine: Nov 19, 2017 Seasonal Allergies Seasonal Allergies: Yes Past Medical History Surgeries: Yes (jaw bone) Abdominal, Appendectomy, Eye Surgery, Tonsillectomy Respiratory: No Currently Using CPAP: No Currently Using BIPAP: No Cardiac: Yes (small PFO) Atrial Fibrillation (paroxysmal), Heart Murmur, Hypertension, Valvular Heart Disease Neurological: Yes Stroke, TIA 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 Disorders: No Female 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 Disorders: Denies 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3 Pulse 90 Resp 22 B/P (MAP) 164/93 (116) Pulse Ox 98 O2 Delivery Room Air Capillary Refill : Less Than 3 Seconds Height, Weight, BMI Height: 5'3.00" Weight: 160lbs. 1.6oz. [id number]; 28.3 BMI Method:Stated General Appearance: No Apparent Distress, WD/WN HEENT: PERRL/EOMI, Normal ENT Inspection, Pharynx Normal Neck: Normal Inspection Respiratory: Lungs Clear, Normal Breath Sounds, No Accessory Muscle Use, No Respiratory Distress Cardiovascular: Regular Rate, Rhythm, No Edema, No Murmur Gastrointestinal: Normal Bowel Sounds, Soft Extremity: Normal Capillary Refill, Normal Inspection, No Pedal Edema, Other (very slight tenderness on the lateral lower leg and lateral thigh without inflammation, edema, or erythema. No pain with flexion and extension of the knee. No pain with rotation of the hip.) Neurologic/Psychiatric: Alert, Oriented x3, No Motor/Sensory Deficits, Normal Mood/Affect, gore seamer II-XII Norm as Tested Skin: Normal Color, Warm/Dry Progress/Results/Core Measures Suspected Sepsis Recent Fever Within 48 Hours: No Infection Criteria Present: None New/Unexplained Altered Menta: Yes Sepsis Screen: No Definite Risk SIRS Temperature:97.3 Pulse: 90 Respiratory Rate: 22 Laboratory Tests 09/21/18 07:50: White Blood Count 6.3 Blood Pressure 164 /93 Mean: 116 Laboratory Tests 09/21/18 07:50: Creatinine 1.58H, Platelet Count 188, Total Bilirubin 0.5 Results/Orders Lab Results My Orders Medications Given in ED Vital Signs/I&O Capillary Refill : Less Than 3 Seconds Blood Pressure Mean: 116 Progress Note : Progress Note Lab results suggested patient may be a little dry. 1 L of IV normal saline was administered. She was found to be mildly anemic. Perhaps iron deficiency is contributing to her cramping and discomfort. I suggested we check iron studies and have her follow-up with her primary care provider. I also advised that she discuss her cramping and leg pain with her physical therapy team. He did note on her MAR that she received baclofen last night. Perhaps this has contributed to her feelings of disorientation this morning. She was neurologically intact on my exam. Departure Impression Primary Impression: Muscle cramping Additional Impressions: Confusion Chronic kidney disease Qualified Codes: N18.9 - Chronic kidney disease, unspecified Anemia Qualified Codes: D64.9 - Anemia, unspecified Right leg pain Disposition: HOME, SELF-CARE Condition: Improved Departure-Patient Inst. Decision time for Depature: 09:06 Referrals: KENZIE COOPER MD (PCP) Primary Care Physician [facility] (Family) Primary Care Physician Patient Instructions: Nocturnal (Nighttime) Leg Cramps Add. Discharge Instructions: Drink plenty of clear liquids. Follow-up with your primary care provider within the next week. Review medications as some of the medication such as gabapentin and baclofen may cause confusion and sedation. The doses of these medications may need to be adjusted to reduce risk of confusion or sedation. Iron studies were added to the emergency room lab work. Please review these with your primary care provider as iron deficiency may cause cramping. Work with physical therapy and staff at [facility] to help with stretching and massage to reduce cramping. Return to care if you have worsening symptoms. All discharge instructions reviewed with patient and/or family. Voiced understanding. Copy Copies To 1: KENZIE COOPER MD, JOSHUA T MD Sep 21, 2018 09:03
[2018-09-21 09:32] VITALS: BP 166/96
== END 2018-09-21 09:30 | disposition home or self-care (01) ==
LOC: EDUNIT# 06:48 → ER 06:50
DX: R25.2 Cramp and spasm (principal); R41.0 Disorientation, unspecified; I12.9 Hypertensive chronic kidney disease with stage 1 through stage 4 chronic kidney disease, or unspecified chronic kidney disease; N18.9 Chronic kidney disease, unspecified; D64.9 Anemia, unspecified; M79.604 Pain in right leg; I48.0 Paroxysmal atrial fibrillation; F41.9 Anxiety disorder, unspecified; F32.9 Major depressive disorder, single episode, unspecified; Z80.3 Family history of malignant neoplasm of breast; Z87.19 Personal history of other diseases of the digestive system; Z86.73 Personal history of transient ischemic attack (TIA), and cerebral infarction without residual deficits; Z79.01 Long term (current) use of anticoagulants; Z79.82 Long term (current) use of aspirin; Z87.891 Personal history of nicotine dependence; Z90.49 Acquired absence of other specified parts of digestive tract; Z90.89 Acquired absence of other organs; Z82.49 Family history of ischemic heart disease and other diseases of the circulatory system
CPT/HCPCS: 36415; 80053; 81000; 82728; 83540; 83735; 85025; 96360

== ENCOUNTER 2018-10-20 06:46 | Emergency (ER) | payer MEDICAID, MEDICARE ==
[~2018-10-20] VITALS: Ht 162.6 cm; Wt 77.1 kg
[~2018-10-20 06:46] MED LIST changes: -PENT400T9 PO; -TIZA4TAB3 PO; +TIZA4TAB4 PO
--- OUTSIDE RECORDS SUMMARY | 2018-10-20 06:53 | XMS REPORT ---
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, unspecified vessel or lesion type I25.119 Active 11055798 Problem Mild major depression F32.0 Active 78326132 Problem GERD (gastroesophageal reflux disease) K21.9 Active 215892074 Problem Left hemiplegia G81.94 Active 846585062 Problem Current moderate episode of major depressive disorder without prior episode F32.1 Active 57153826 Problem Cerebrovascular disease I67.9 Active 79983097 Problem Atrial fibrillation I48.91 Active 60113103 Problem CVA (cerebral vascular accident) I63.9 Active 787692343 Problem Hypoglycemia E16.2 Active [id number] ALLERGIES No Information ENCOUNTERS Encounter Location Date Diagnosis [facility] [address] [place] [address] July, [facility] [address] [place] [address] July, [facility] [address] [place] [address] Jun, [facility] [address] [place] [address] Jun, Current moderate episode of major depressive disorder without prior episode F32.1 [facility] [address] [place] [address] Jun, Via [facility] [address] [place] [id number] Jun, [facility] [id number] [place] [address] May, Via [facility] [address] [place] [id number] May, Hypoglycemia E16.2 ; Left hemiplegia G81.94 and Dysuria R30.0 [place] [id number] [place] [address] May, Via [facility] [address] [place] [id number] May, CVA (cerebral vascular accident) I63.9 ; Atrial fibrillation I48.91 and Headache R51 [place] [address] [address] Apr, [place] [id number] [place] [address] Mar, 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, unspecified vessel or lesion type I25.119 [place] [id number] [place] [address] Mar, Mild major depression F32.0 ; Cerebrovascular disease I67.9 and GERD (gastroesophageal reflux disease) K21.9 [place] [id number] [place] [address] Mar, 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, unspecified vessel or lesion type I25.119 [place] [id number] [place] [address] Jun, [place] [id number] [place] [address] Jun, [place] [address] [address] May, [place] [id number] [place] [address] Apr, [place] [id number] [place] [address] Apr, [facility] [id number] [address] Mar, [facility] [address] [address] Feb, [facility] [address] [address] Feb, [facility] [address] [address] Jan, [facility] [address] [address] Jan, [facility] [address] [address] Jan, [facility] [address] [address] Dec, [facility] [address] [address] Dec, [facility] [id number] [address] Dec, IMMUNIZATIONS No Known Immunizations SOCIAL HISTORY Never Assessed REASON FOR VISIT Detention Admission PLAN OF CARE VITAL SIGNS MEDICATIONS Medication Instructions Dosage Frequency Start Date End Date Duration Status Aspirin 81 MG Orally Once a day 1 tablet 24h 30 day(s) Active Tizanidine HCl 4 MG Orally 4 times a day 1 tablet as needed 6h Active Latanoprost 0.005 % Ophthalmic Once a day 1 drop into affected eye in the evening 24h Active Tramadol HCl 50 MG Orally every 6 hrs 1 tablet as needed 6h Active Metoprolol Succinate 100 MG Orally Once a day 1 capsule 24h 30 day(s) Active Lactulose 20 GM/30ML Orally 2 times a day 15 ml 12h 30 day(s) Active Amlodipine Besylate 5 MG Orally Once a day 1 tablet 24h 30 day(s) Active Alprazolam 0.25 MG Orally every 8 hrs 1 tablet as needed 8h Active Gabapentin 300 MG Orally 2 times a day 1 capsule 12h 30 day(s) Active Flomax 0.4 MG Orally Once a day 1 capsule 24h 30 day(s) Active Pantoprazole Sodium 40 MG Orally Once a day 1 tablet 24h 30 day(s) Active Bethanechol Chloride 25 MG Orally before meals and at bedtime 1 tablet 30 day(s) Active Atorvastatin Calcium 20 MG Orally Once a day 1 tablet 24h 30 day(s) Active Voltaren 1 % as directed Active Pentoxifylline ER 400 mg Orally Once a day 1 tablet with meals 24h 30 day(s) Active BuPROPion HCl 75 MG Orally Twice a day 2 tablets 12h 30 day(s) Active Hydrocodone-Acetaminophen 5-325 MG Orally every 4 hrs 1 tablet as needed 4h Active Brimonidine Tartrate 0.2 % Ophthalmic every 8 hrs 1 drop into affected eye 8h Active Baclofen 10 MG Orally Three times a day 1 tablet with food or milk as needed 8h 30 day(s) Active Xarelto 20 MG Orally Once a day 1 tablet with food 24h 30 day(s) Active Magnesium Oxide -Mg Supplement 400 MG Orally 2 times a day 1 capsule 12h 30 day(s) Active RESULTS No Results PROCEDURES No Known [...]
--- OUTSIDE RECORDS SUMMARY | 2018-10-20 06:53 | XMS REPORT ---
Author Author Migration, Doctor Organization [facility] Address Unknown Phone Unavailable Care Team Providers Care Collateral Specialist Name Role Phone Migration, Doctor Unavailable Unavailable PROBLEMS Type Condition ICD9-CM Code [id number] Code Onset Dates Condition Status SNOMED Code Problem Coronary artery disease involving [place] heart with angina pectoris, unspecified vessel or lesion type I25.119 Active 86550123 Problem Mild major depression F32.0 Active 66200556 Problem GERD (gastroesophageal reflux disease) K21.9 Active 290212772 Problem Left hemiplegia G81.94 Active 771844294 Problem Current moderate episode of major depressive disorder without prior episode F32.1 Active 09427249 Problem Cerebrovascular disease I67.9 Active 66266802 Problem Atrial fibrillation I48.91 Active 31442288 Problem CVA (cerebral vascular accident) I63.9 Active 365801798 Problem Hypoglycemia E16.2 Active 625041947 ALLERGIES No Information ENCOUNTERS Encounter Location Date Diagnosis [facility] [id number] [place] [address] July, [facility] [id number] [place] [address] July, [facility] [address] [place] [address] Jun, [facility] [id number] [place] [address] Jun, Current moderate episode of major depressive disorder without prior episode F32.1 [facility] [id number] [place] [address] Jun, Via [facility] [address] [place] [id number] Jun, [facility] [address] [place] [address] May, Via [facility] [address] [place] [id number] May, Hypoglycemia E16.2 ; Left hemiplegia G81.94 and Dysuria R30.0 [place] [address] [address] May, Via [facility] [address] [place] [id number] May, CVA (cerebral vascular accident) I63.9 ; Atrial fibrillation I48.91 and Headache R51 [place] [address] [address] Apr, [place] [address] [address] Mar, Coronary artery disease involving [place] heart with angina pectoris, unspecified vessel or lesion type I25.119 [place] [address] [address] Mar, Mild major depression F32.0 ; Cerebrovascular disease I67.9 and GERD (gastroesophageal reflux disease) K21.9 [place] [address] [address] Mar, Coronary artery disease involving [place] heart with angina pectoris, unspecified vessel or lesion type I25.119 [place] [id number] [place] [address] Jun, [facility] [id number] [place] [address] Jun, [facility] [id number] [place] [address] May, [facility] [address] [address] Apr, [facility] [id number] [place] [address] Apr, [facility] [address] [address] Mar, [facility] [id number] [address] Feb, [facility] [address] [address] Feb, [facility] [id number] [address] Jan, [facility] [id number] [place] [address] Jan, [facility] [address] [address] Jan, [facility] [address] [address] Dec, [facility] [address] [address] Dec, [facility] [address] [address] Dec, IMMUNIZATIONS No Known Immunizations SOCIAL HISTORY Never Assessed REASON FOR VISIT EMR-[facility] PLAN OF CARE VITAL SIGNS MEDICATIONS Unknown Medications RESULTS No Results PROCEDURES No Known procedures [...]
--- OUTSIDE RECORDS SUMMARY | 2018-10-20 06:53 | XMS REPORT | Clinical Summary ---
Author Author [facility] Organization [facility] Address Unknown Phone Unavailable Care Team Providers Care Doors Prefitter Name Role Phone Hellen Tomas RN Unavailable Unavailable Oriana Watts MD PCP Source Comments Some departments are not documenting in the electronic medical record. If you d o not see the information that you expected, contact Release of Information in [facility] Information Management department at [phone] for further assistan ce in locating additional records.[facility] Allergies Not on File Medications Not on file Active Problems Not on file Social History Date Tobacco Use Types Packs/Day Years Used Never Assessed Sex Assigned at Date Recorded Not on file Industry Job Start Date Occupation Not on file Not on file Not on file Travel End Travel History Travel Start No recent travel history available. Last Filed Vital Signs Reading Time Taken Comments Vital Sign 156/74 10/13/2010 3:22 PM CDT Blood Pressure 56 10/13/2010 3:22 PM CDT Pulse 36.4 C (97.5 F) 10/13/2010 11:14 AM CDT Temperature - - Respiratory Rate 98% 10/13/2010 3:22 PM CDT Oxygen Saturation - - Inhaled Oxygen Concentration 179.2 kg (395 lb) 10/13/2010 2:00 PM CDT Weight - - Height - - Body Mass Index Plan of Treatment Health Maintenance Due Date Last Done Comments HEPATITIS C SCREENING 1945 PHYSICAL (COMPREHENSIVE) 01/31/1952 EXAM DTAP/TDAP VACCINES (1 - 1963 Tdap) BREAST CANCER SCREENING 1985 COLORECTAL CANCER 1995 SCREENING SHINGLES RECOMBINANT 1995 VACCINE (1 of 2) OSTEOPOROSIS 2010 SCREENING/MONITORING PNEUMONIA (PCV13/PPSV23) 2010 VACCINES (1 of 2 - PCV13) INFLUENZA VACCINE 12/19/2018 Results Not on filefrom Last 3 Months
[2018-10-20 06:57] LABS: BASOPHILS % (AUTO) 1 % (0-10); EOSINOPHILS # (AUTO) 0.3 10^3/uL (0.0-0.3); EOSINOPHILS % (AUTO) 5 % (0-10); HEMATOCRIT 36 % (35-52); HEMOGLOBIN 10.2 G/DL (11.5-16.0); LYMPHOCYTES # (AUTO) 1.8 X 10^3 (1.0-4.0); LYMPHOCYTES % (AUTO) 32 % (12-44); MEAN CORPUSCULAR HEMOGLOBIN 23 PG (25-34); MEAN CORPUSCULAR HGB CONC 29 G/DL (32-36); MEAN CORPUSCULAR VOLUME 79 FL (80-99); MEAN PLATELET VOLUME 10.8 FL (7.4-10.4); MONOCYTES # (AUTO) 0.5 X 10^3 (0.0-1.0); MONOCYTES % (AUTO) 9 % (0-12); NEUTROPHILS # (AUTO) 2.9 X 10^3 (1.8-7.8); NEUTROPHILS % (AUTO) 53 % (42-75); PLATELET COUNT 147 10^3/uL (130-400); RED CELL DISTRIBUTION WIDTH 17.2 % (10.0-14.5); WHITE BLOOD COUNT 5.4 10^3/uL (4.3-11.0)
[2018-10-20 07:09] LABS: INR 1.7 (0.8-1.4); PROTHROMBIN TIME PATIENT 20.4 SEC (12.2-14.7)
[2018-10-20 07:13] LABS: ALBUMIN 3.8 GM/DL (3.2-4.5); BILIRUBIN,TOTAL 0.4 MG/DL (0.1-1.0); CALCIUM 9.5 MG/DL (8.5-10.1); CREATININE SERUM 1.55 MG/DL (0.60-1.30); MAGNESIUM 2.2 MG/DL (1.8-2.4); POTASSIUM 4.3 MMOL/L (3.6-5.0)
[2018-10-20 07:14] LABS: BILIRUBIN,URINE NEGATIVE (NEGATIVE); CLARITY,URINE CLEAR; COLOR,URINE YELLOW; GLUCOSE, URINE (UA) NEGATIVE (NEGATIVE); KETONES,URINE NEGATIVE (NEGATIVE); LEUKOCYTE ESTERASE ,URINE NEGATIVE (NEGATIVE); NITRITE,URINE NEGATIVE (NEGATIVE); PH,URINE 8 (5-9); PROTEIN,URINE NEGATIVE (NEGATIVE); UROBILINOGEN,URINE NORMAL (NORMAL)
--- NOTE | 2018-10-20 07:14 | ED General ---
General Chief Complaint: Lower Extremity Stated Complaint: LEG CRAMPS Source of Information: Patient ( LIMITED HISTORIAN--DOES NOT KNOW ANY OF HER MEDICATIONS OR WHAT SHE TAKES THEM FOR, AND CANNOT GIVE MOST OF HER PMH. ), Old Records History of Present Illness Date Seen by Provider: Oct 20, 2018 Time Seen by Provider: 06:45 Initial Comments PT ARRIVES VIA EMS FROM HOME--LIVES BY HERSELF AT [facility] C/O BILATERAL LEG CRAMPS--RIGHT > LEFT--SINCE YESTERDAY STATES CRAMPING IS IN HER ENTIRE LEG. NOTHING WORSENS OR IMPROVES SYMPTOMS THIS IS A RECURRING PROBLEM AND WAS HERE 09/21/18 FOR SAME RATES PAIN 05/28. HAS NOT TAKEN ANYTHING FOR PAIN PT HAS HISTORY OF MULTIPLE CVA'S AND HAS RESIDUAL LEFT SIDE WEAKNESS--NO NEW PARESTHESIAS OR MOTOR DEFICITS PT ALSO HAS HISTORY OF CHRONIC ATRIAL FIBRILLATION AND HAS BEEN PRESCRIBED XARELTO, 81 MG ASPIRIN AND PENTOXIFYLLINE--PT DOES NOT KNOW WHAT SHE TAKES ADDITIONALLY, PT HAS BEEN PRESCRIBED TRAMADOL, VOLTAREN AND BACLOFEN FOR CHRONIC PAIN COMPLAINTS--PT HAS NO IDEA WHAT MEDICATIONS SHE TAKES DENIES ANY MISSED DOSES OF MEDICATIONS, BUT HAS NOT TAKEN ANY MEDICATIONS THIS AM. NO INJURY NO CHEST PAIN NO SHORTNESS OF BREATH NO PALPITATIONS NO DIZZINESS OR SYNCOPE NO SWELLING TO LEGS/FEET. PT HAS PHYSICAL THERAPY AND IS DUE FOR SESSION AT 0900 THIS AM PCP: NANDINI, DR. LACY Allergies and Home Medications Allergies Coded Allergies: fentanyl (Verified Adverse Reaction, Mild, 10/20/18) MAKES HER HALLUCINATE Home Medications Acetaminophen 325 Mg Tablet, 650 MG PO Q4H PRN for PAIN-MILD, (Reported) Amlodipine Besylate 5 Mg Tablet, 5 MG PO HS, (Reported) Aspirin 81 Mg Tablet.dr, 81 MG PO DAILY, (Reported) Atorvastatin Calcium 20 Mg Tablet, 20 MG PO HS, (Reported) Baclofen 10 Mg Tablet, 10 MG PO TID PRN for MUSCLE SPASMS, (Reported) Bethanechol Chloride 25 Mg Tablet, 25 MG PO TID, (Reported) Brimonidine Tartrate 5 Ml Btl, 1 DROP OU BID, (Reported) Bupropion HCl 150 Mg Tablet.er, 150 MG PO DAILY, (Reported) Diclofenac Sodium 100 Gm Gel..gram., 2 GM TP QID PRN for JOINT PAIN, (Reported) Escitalopram Oxalate 10 Mg Tablet, 10 MG PO HS, (Reported) Gabapentin 300 Mg Capsule, 300 MG PO BID, (Reported) Lactulose 20 Gm/30 Ml Solution, 15 ML PO BID, (Reported) Latanoprost 2.5 Ml Drops, 1 DROP OU HS, (Reported) Magnesium Oxide 400 Mg Tablet, 400 MG PO BID, (Reported) Metoprolol Succinate 100 Mg Tab.er.24h, 100 MG PO DAILY, (Reported) HOLD AND NOTIFY DRLizbeth IF SBP<100 AND/OR DBP<60 AND/OR PULSE </= 60 Pantoprazole Sodium 40 Mg Tablet.dr, 40 MG PO DAILY, (Reported) Pentoxifylline 400 Mg Tablet.er, 400 MG PO DAILY, (Reported) Promethazine HCl 25 Mg Supp.rect, 25 MG RC Q4H PRN for NAUSEA/VOMITING-2ND LINE, (Reported) Rivaroxaban 20 Mg Tablet, 20 MG PO 1800, (Reported) Tamsulosin HCl 0.4 Mg Cap, 0.4 MG PO 1800, (Reported) Tramadol HCl 50 Mg Tablet, 50 MG PO QID PRN for PAIN-MODERATE, (Reported) Patient Home Medication List Home Medication List Reviewed: Yes Review of Systems Review of Systems Constitutional: no symptoms reported; No diaphoresis, No dizziness Respiratory: no symptoms reported; No dyspnea on exertion, No orthopnea, No short of breath Cardiovascular: no symptoms reported; No chest pain, No edema, No palpitations, No syncope Gastrointestinal: no symptoms reported Genitourinary: no symptoms reported Musculoskeletal: see HPI, muscle cramps Skin: no symptoms reported Psychiatric/Neurological: See HPI, Pre-Existing Deficit Hematologic/Lymphatic: No Symptoms Reported Immunological/Allergic: no symptoms reported Past Ydffbqp-Rpkjoh-Lihbms Hx Past Med/Social Hx: Reviewed and Corrections made Patient Social History Alcohol Use: Rarely Uses Recreational Drug Use: No Smoking Status: Former Smoker Type Used: Cigarettes Former Smoker, Quit: Dec 19, 1986 2nd Hand Smoke Exposure: No Recent Foreign Travel: No Contact w/Someone Who Travel: No Recent Hopitalizations: No Immunizations Up To Date Tetanus Booster (TDap): Unknown PED Vaccines UTD: Yes Date of Pneumonia Vaccine: Nov 19, 2013 Date of Influenza Vaccine: Nov 19, 2017 Seasonal Allergies Seasonal Allergies: Yes Past Medical History Surgeries: Yes (LOOP RECORDER; JAW SURGERY; HIATAL HERNIA REPAIR X 2) Abdominal, Appendectomy, Eye Surgery, Tonsillectomy Respiratory: No Currently Using CPAP: No Currently Using BIPAP: No Cardiac: Yes (SMALL PFO; MILD CAROTID DISEASE; PERIPHERAL VASCULAR DISEASE-- LAST ALYSA 2015 WAS NORMAL) Atrial Fibrillation, Heart Murmur, High Cholesterol, Hypertension, Peripheral Vascular, Valvular Heart Disease Neurological: Yes (LEFT SIDE WEAKNESS) Stroke, TIA 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 Disorders: No Female 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 Disorders: Denies 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 Sexually Transmitted Disease: No HIV/AIDS: No Genitourinary: Yes (BLADDER CONTROL PROBLEMS) Gastrointestinal: Yes (HIATAL HERNIA SURGERY X 2) Gastroesophageal Reflux, Hiatal Hernia Musculoskeletal: Yes Arthritis Endocrine: No HEENT: Yes Cataract, Glaucoma Hearing Impairment: Denies Cancer: No Did You Recieve Any Treatments: No Psychosocial: Yes Anxiety, Depression Integumentary: No Blood Disorders: Yes (ANEMIA) Adverse Reaction/Blood Tranf: No Family Medical History FH: CVA (cerebrovascular accident) G8 BROTHER G8 SISTER FH: breast cancer 19 MOTHER FH: cancer 19 FATHER Hypertension 19 MOTHER Physical Exam Vital Signs Vital Signs - First Documented 10/20/18 06:46 Temp 98.3 Pulse 118 Resp 18 B/P (MAP) 132/90 (104) Pulse Ox 98 O2 Delivery Room Air Capillary Refill : Height, Weight, BMI Height: 5'3.00" Weight: 160lbs. 1.6oz. 72.662411zn; 28.3 BMI Method:Stated General Appearance: No Apparent Distress, WD/WN, Other (FALT AFFECT, BUT DOES NOT APPEAR TO BE IN ANY DISCOMFORT OR DISTRESS) HEENT: PERRL/EOMI Neck: Full Range of Motion, Normal Inspection, Non Tender, Supple; No Carotid Bruit, No JVD Respiratory: Normal Breath Sounds, No Accessory Muscle Use, No Respiratory Distress Cardiovascular: Regular Rate, Rhythm, No Edema, No JVD, No Murmur, Normal Peripheral Pulses (+2/4 BILATERALLY) Gastrointestinal: Non Tender, Soft Extremity: Normal Capillary Refill, Normal Inspection, Normal Range of Motion, Non Tender, No Calf Tenderness, No Pedal Edema, Other (FEET PINK, WARM, GOOD CAPILLARY REFILL. PEDAL PULSES +2/4 BILATERALLY/EQUAL; VERY SLIGHT DIFFUSE MUSCLE TENDERNESS TO UPPER AND LOWER LEG. 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 II-XII Norm as Tested, Other (M ILD LEFT SIDE WEAKNESS--RESIDUAL FROM PREVIOUS CVA) Skin: Normal Color, Warm/Dry Progress/Results/Core Measures Suspected Sepsis SIRS Temperature: Pulse: Respiratory Rate: Laboratory Tests 10/20/18 06:50: White Blood Count 5.4 Blood Pressure / Mean: Laboratory Tests 10/20/18 06:50: Creatinine 1.55H, INR Comment 1.7H, Platelet Count 147, Total Bilirubin 0.4 Results/Orders Lab Results Laboratory Tests Test 10/20/18 06:50 10/20/18 07:05 Range/Units White Blood Count 5.4 4.3-11.0 10^3/uL Red Blood Count 4.52 4.35-5.85 10^6/uL Hemoglobin 10.2 L 11.5-16.0 G/DL Hematocrit 36 35-52 % Mean Corpuscular Volume 79 L 80-99 FL Mean Corpuscular Hemoglobin 23 L 25-34 PG Mean Corpuscular Hemoglobin Concent 29 L 32-36 G/DL Red Cell Distribution Width 17.2 H 10.0-14.5 % Platelet Count 147 130-400 10^3/uL Mean Platelet Volume 10.8 H 7.4-10.4 FL Neutrophils (%) (Auto) 53 42-75 % Lymphocytes (%) (Auto) 32 12-44 % Monocytes (%) (Auto) 9 0-12 % Eosinophils (%) (Auto) 5 0-10 % Basophils (%) (Auto) 1 0-10 % Neutrophils # (Auto) 2.9 1.8-7.8 X 10^3 Lymphocytes # (Auto) 1.8 1.0-4.0 X 10^3 Monocytes # (Auto) 0.5 0.0-1.0 X 10^3 Eosinophils # (Auto) 0.3 0.0-0.3 10^3/uL Basophils # (Auto) 0.0 0.0-0.1 10^3/uL Prothrombin Time 20.4 H 12.2-14.7 SEC INR Comment 1.7 H 0.8-1.4 Activated Partial Thromboplast Time 33 24-35 SEC Sodium Level 142 135-145 MMOL/L Potassium Level 4.3 3.6-5.0 MMOL/L Chloride Level 113 H 98-107 MMOL/L Carbon Dioxide Level 20 L 21-32 MMOL/L Anion Gap 9 5-14 MMOL/L Blood Urea Nitrogen 18 7-18 MG/DL Creatinine 1.55 H 0.60-1.30 MG/DL Estimat Glomerular Filtration Rate 33 BUN/Creatinine Ratio 12 Glucose Level 98 70-105 MG/DL Calcium Level 9.5 8.5-10.1 MG/DL Corrected Calcium 9.7 8.5-10.1 MG/DL Magnesium Level 2.2 1.8-2.4 MG/DL Total Bilirubin 0.4 0.1-1.0 MG/DL Aspartate Amino Transf (AST/SGOT) 18 5-34 U/L Alanine Aminotransferase (ALT/SGPT) 13 0-55 U/L Alkaline Phosphatase 95 40-136 U/L Total Creatine Kinase 87 29-168 U/L Creatine Kinase MB 1.7 <6.6 NG/ML Myoglobin 61.7 10.0-92.0 NG/ML Total Protein 6.0 L 6.4-8.2 GM/DL Albumin 3.8 3.2-4.5 GM/DL TSH [place] Testing 1.60 0.35-4.94 UIU/ML Urine Color YELLOW Urine Clarity CLEAR Urine pH 8 5-9 Urine Specific Dyke 1.010 L 1.016-1.022 Urine Protein NEGATIVE NEGATIVE Urine Glucose (UA) NEGATIVE NEGATIVE Urine Ketones NEGATIVE NEGATIVE Urine Nitrite NEGATIVE NEGATIVE Urine Bilirubin NEGATIVE NEGATIVE Urine Urobilinogen NORMAL NORMAL MG/DL Urine Leukocyte Esterase NEGATIVE NEGATIVE Urine RBC (Auto) NEGATIVE NEGATIVE Urine RBC NONE /HPF Urine WBC 10-25 H /HPF Urine Squamous Epithelial Cells 2-5 /HPF Urine Crystals NONE /LPF Urine Bacteria NEGATIVE /HPF Urine Casts NONE /LPF Urine Mucus NEGATIVE /LPF Urine Culture Indicated NO My Orders Orders - BOBO LINN DO Ed Iv/Invasive Line Start (10/20/18 06:50) Monitor-Rhythm Ecg Trace Only (10/20/18 06:50) Cbc With Automated Diff (10/20/18 06:50) Comprehensive Metabolic Panel (10/20/18 06:50) Creatine Kinase (10/20/18 06:50) Creatine Kinase Mb (10/20/18 06:50) Magnesium (10/20/18 06:50) Protime With Inr (10/20/18 06:50) Partial Thromboplastin Time (10/20/18 06:50) Thyroid Analyzer (10/20/18 06:50) Ua Culture If Indicated (10/20/18 06:50) Myoglobin Serum (10/20/18 06:50) Ed Iv/Invasive Line Start (10/20/18 07:34) Lactated Ringers (Lr 1000 Ml Iv Solution (10/20/18 07:34) Cyclobenzaprine Tablet (Flexeril Tablet) (10/20/18 07:45) Acetaminophen Tablet (Tylenol Tablet) (10/20/18 07:45) Tramadol Tablet (Ultram Tablet) (10/20/18 07:45) Vital Signs/I&O 10/20/18 06:46 Temp 98.3 Pulse 118 Resp 18 B/P (MAP) 132/90 (104) Pulse Ox 98 O2 Delivery Room Air Capillary Refill : Progress Note : Progress Note UNEVENTFUL ER STAY Departure Impression Primary Impression: Leg cramps Additional Impressions: HX OF CVA WITH LEFT SIDE WEAKNESS Renal insufficiency Mild anemia Disposition: 01 HOME, SELF-CARE Condition: Stable Departure-Patient Inst. Referrals: KENZIE COPOER MD (PCP) Primary Care Physician [facility] (Family) Primary Care Physician Patient Instructions: Anemia Caused by Low Iron, Adult (DC), Anemia of Chronic Disease (DC), Nocturnal (Nighttime) Leg Cramps (DC), Renal Function Panel Add. Discharge Instructions: CONTINUE YOUR CURRENT MEDICATIONS PRESCRIBED CONTINUE PHYSICAL THERAPY USUAL FOLLOW UP WITH YOUR DR IN 2-3 DAYS FOR FURTHER CARE All discharge instructions reviewed with patient and/or family. Voiced understanding. BOBO LINN DO Oct 20, 2018 07:13
--- NOTE | 2018-10-20 07:15 | NUR ---
1 LITER NS STARTED BY EMS INFUSED AT THIS TIME.
[2018-10-20 07:22] LABS: BACTERIA,URINE NEGATIVE /HPF
[2018-10-20 07:33] LABS: CREATINE KINASE MB 1.7 NG/ML (<6.6); TSH (THYROID ANALYZER) 1.6 UIU/ML (0.35-4.94)
[2018-10-20] MEDS ORDERED: LACTATED RINGERS 1,000 ML IV ONE (07:34)
[2018-10-20] MEDS ORDERED: CYCLOBENZAPRINE 10 MG (FLEXERIL) TAB PO SCH (07:45)
[2018-10-20] MEDS ORDERED: ACETAMINOPHEN 500 MG TAB (TYLENOL) PO ONE (07:45)
[2018-10-20 08:40] VITALS: BP 110/77
== END 2018-10-20 08:40 | disposition home or self-care (01) ==
LOC: EDUNIT# 06:46 → ER 06:48
DX: R25.2 Cramp and spasm (principal); N28.9 Disorder of kidney and ureter, unspecified; D64.9 Anemia, unspecified; I69.998 Other sequelae following unspecified cerebrovascular disease; R53.1 Weakness; I10 Essential (primary) hypertension; I48.91 Unspecified atrial fibrillation; E78.00 Pure hypercholesterolemia, unspecified; K21.9 Gastro-esophageal reflux disease without esophagitis; F32.9 Major depressive disorder, single episode, unspecified; F41.9 Anxiety disorder, unspecified; Z88.5 Allergy status to narcotic agent; Z79.82 Long term (current) use of aspirin; Z79.01 Long term (current) use of anticoagulants; Z87.891 Personal history of nicotine dependence; Z90.49 Acquired absence of other specified parts of digestive tract; Z90.89 Acquired absence of other organs; Z86.79 Personal history of other diseases of the circulatory system; Z98.890 Other specified postprocedural states; Z82.49 Family history of ischemic heart disease and other diseases of the circulatory system; Z80.3 Family history of malignant neoplasm of breast
CPT/HCPCS: 36415; 80053; 81000; 82550; 82553; 83735; 83874; 84443; 85025; 85610; 85730; 93041; 96360

== ENCOUNTER 2018-11-24 10:01 | Outpatient (RCR) | payer MEDICAID, MEDICARE | END 2018-11-27 | disposition home or self-care (01) | PROVIDERS: ATTEND Family Medicine | DX: I69.354 Hemiplegia and hemiparesis following cerebral infarction affecting left non-dominant side (principal) ==

== ENCOUNTER 2018-12-31 15:08 | Observation (INO) | payer MEDICARE ==
[~2018-12-31] VITALS: Ht 160 cm; Wt 79.2 kg
[2018-12-31] VITALS (8 sets, daily range): BP systolic 119–162; BP diastolic 51–103
[2018-12-31 15:26] LABS: BASOPHILS % (AUTO) 0 % (0-10); BILIRUBIN,URINE NEGATIVE (NEGATIVE); CLARITY,URINE CLEAR; COLOR,URINE YELLOW; EOSINOPHILS # (AUTO) 0.1 10^3/uL (0.0-0.3); EOSINOPHILS % (AUTO) 2 % (0-10); GLUCOSE, URINE (UA) NEGATIVE (NEGATIVE); HEMATOCRIT 42 % (35-52); HEMOGLOBIN 13.1 G/DL (11.5-16.0); KETONES,URINE NEGATIVE (NEGATIVE); LEUKOCYTE ESTERASE ,URINE NEGATIVE (NEGATIVE); LYMPHOCYTES # (AUTO) 1.4 X 10^3 (1.0-4.0); LYMPHOCYTES % (AUTO) 16 % (12-44); MEAN CORPUSCULAR HEMOGLOBIN 29 PG (25-34); MEAN CORPUSCULAR HGB CONC 31 G/DL (32-36); MEAN CORPUSCULAR VOLUME 92 FL (80-99); MEAN PLATELET VOLUME 10.5 FL (7.4-10.4); MONOCYTES # (AUTO) 0.8 X 10^3 (0.0-1.0); MONOCYTES % (AUTO) 9 % (0-12); NEUTROPHILS # (AUTO) 6.6 X 10^3 (1.8-7.8); NEUTROPHILS % (AUTO) 74 % (42-75); NITRITE,URINE NEGATIVE (NEGATIVE); PH,URINE 7 (5-9); PLATELET COUNT 113 10^3/uL (130-400); PROTEIN,URINE 1+ (NEGATIVE); RED CELL DISTRIBUTION WIDTH 20.5 % (10.0-14.5); UROBILINOGEN,URINE NORMAL (NORMAL); WHITE BLOOD COUNT 8.9 10^3/uL (4.3-11.0)
[2018-12-31 15:33] LABS: BACTERIA,URINE NEGATIVE /HPF
--- NOTE | 2018-12-31 15:33 | ED Neurological Problem ---
General Chief Complaint: Neuro-Stroke Like Symptoms Stated Complaint: WEAKNESS Nursing Triage Note: pt to rm 7 by [facility] with complaint of weakness. family was concerned pt was having another stroke. Nursing Sepsis Screen: No Definite Risk Source: patient, family (granddaughter and daughter), EMS Exam Limitations: clinical condition History of Present Illness Date Seen by Provider: Dec 31, 2018 Time Seen by Provider: 15:16 Initial Comments Patient presents to ER by EMS from home with chief complaint of confusion and weakness and left-sided weakness and facial droop. She has a history of stroke mild residual left-sided deficits but able to ambulate using a walker. Last known well time was 10:30 this morning she was up moving around. When family came to her house to take her out shopping she was unable to get out of her chair and had left-sided droop. EMS reports blood sugar was running around 100. No history of diabetes. She is on Xarelto for evaluation. No history of coronary disease. She's not having any pain shortness of breath nausea fever chills cough dysuria diarrhea or constipation. Allergies and Home Medications Allergies Coded Allergies: fentanyl (Verified Adverse Reaction, Mild, 10/20/18) MAKES HER HALLUCINATE Home Medications Acetaminophen 325 Mg Tablet, 650 MG PO Q4H PRN for PAIN-MILD, (Reported) Amlodipine Besylate 5 Mg Tablet, 5 MG PO HS, (Reported) Aspirin 81 Mg Tablet.dr, 81 MG PO DAILY, (Reported) Atorvastatin Calcium 20 Mg Tablet, 20 MG PO HS, (Reported) Baclofen 10 Mg Tablet, 10 MG PO TID PRN for MUSCLE SPASMS, (Reported) Bethanechol Chloride 25 Mg Tablet, 25 MG PO TID, (Reported) Brimonidine Tartrate 5 Ml Btl, 1 DROP OU BID, (Reported) Bupropion HCl 150 Mg Tablet.er, 150 MG PO DAILY, (Reported) Diclofenac Sodium 100 Gm Gel..gram., 2 GM TP QID PRN for JOINT PAIN, (Reported) Escitalopram Oxalate 10 Mg Tablet, 10 MG PO HS, (Reported) Gabapentin 300 Mg Capsule, 300 MG PO BID, (Reported) Lactulose 20 Gm/30 Ml Solution, 15 ML PO BID, (Reported) Latanoprost 2.5 Ml Drops, 1 DROP OU HS, (Reported) Magnesium Oxide 400 Mg Tablet, 400 MG PO BID, (Reported) Metoprolol Succinate 100 Mg Tab.er.24h, 100 MG PO DAILY, (Reported) HOLD AND NOTIFY DR. IF SBP<100 AND/OR DBP<60 AND/OR PULSE </= 60 Pantoprazole Sodium 40 Mg Tablet.dr, 40 MG PO DAILY, (Reported) Pentoxifylline 400 Mg Tablet.er, 400 MG PO DAILY, (Reported) Promethazine HCl 25 Mg Supp.rect, 25 MG RC Q4H PRN for NAUSEA/VOMITING-2ND LINE, (Reported) Rivaroxaban 20 Mg Tablet, 20 MG PO 1800, (Reported) Tamsulosin HCl 0.4 Mg Cap, 0.4 MG PO 1800, (Reported) Tramadol HCl 50 Mg Tablet, 50 MG PO QID PRN for PAIN-MODERATE, (Reported) Patient Home Medication List Home Medication List Reviewed: Yes Review of Systems Review of Systems Constitutional: No chills, No diaphoresis Eyes: Denies Blindness, Denies Blurred Vision Ears, Nose, Mouth, Throat: denies ear pain, denies ear discharge Respiratory: No cough, No dyspnea on exertion Cardiovascular: No chest pain, No palpitations Gastrointestinal: No abdominal pain, No constipation, No diarrhea Genitourinary: No discharge, No dysuria Past Xwjxqvs-Blssgv-Qpgeah Hx Patient Social History Alcohol Use: Denies Use Recreational Drug Use: No Smoking Status: Former Smoker Type Used: Cigarettes Former Smoker, Quit: Dec 19, 1986 2nd Hand Smoke Exposure: No Recent Foreign Travel: No Contact w/Someone Who Travel: No Recent Infectious Disease Expo: No Recent Hopitalizations: No Physical Abuse: No Sexual Abuse: No Mistreated: No Fear: No Immunizations Up To Date Tetanus Booster (TDap): Unknown PED Vaccines UTD: Yes Date of Pneumonia Vaccine: Nov 19, 2013 Date of Influenza Vaccine: Nov 19, 2017 Seasonal Allergies Seasonal Allergies: Yes Past Medical History Surgeries: Yes (LOOP RECORDER; JAW SURGERY; HIATAL HERNIA REPAIR X 2) Abdominal, Appendectomy, Eye Surgery, Tonsillectomy Respiratory: No Currently Using CPAP: No Currently Using BIPAP: No Cardiac: Yes Atrial Fibrillation, Heart Murmur, High Cholesterol, Hypertension, Peripheral Vascular, Valvular Heart Disease Neurological: Yes (LEFT SIDE WEAKNESS) Stroke, TIA 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 Disorders: No Female 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 Disorders: Denies GM History: Menopausal Sexually Transmitted Disease: No HIV/AIDS: No Genitourinary: Yes (BLADDER CONTROL PROBLEMS) Gastrointestinal: Yes (HIATAL HERNIA SURGERY X 2) Gastroesophageal Reflux, Hiatal Hernia Musculoskeletal: Yes Arthritis Endocrine: No HEENT: Yes Cataract, Glaucoma Hearing Impairment: Denies Cancer: No Did You Recieve Any Treatments: No Psychosocial: Yes Anxiety, Depression Integumentary: No Blood Disorders: Yes (ANEMIA) Adverse Reaction/Blood Tranf: No Family Medical History FH: CVA (cerebrovascular accident) G8 BROTHER G8 SISTER FH: breast cancer 19 MOTHER FH: cancer 19 FATHER Hypertension 19 MOTHER Physical Exam Vital Signs Vital Signs - First Documented 12/31/18 15:09 Temp 35.8 Pulse 57 Resp 16 B/P (MAP) 133/81 (98) Pulse Ox 97 O2 Delivery Room Air Capillary Refill : Less Than 3 Seconds Height, Weight, BMI Height: 5'4.00" Weight: 170lbs. 1.6oz. [id number]; 31.00 BMI Method:Stated General Appearance: WD/WN, mild distress HEENT: PERRL/EOMI, normal ENT inspection, TMs normal, pharynx normal Neck: non-tender, full range of motion, supple, normal inspection Respiratory: lungs clear, normal breath sounds, no respiratory distress, no accessory muscle use Cardiovascular: normal peripheral pulses, regular rate, rhythm Peripheral Pulses: 2+ Radial Pulses (R), 2+ Radial Pulses (L) Gastrointestinal: non tender, soft Extremities: no calf tenderness, normal capillary refill Neurologic/Psychiatric: alert, oriented x 3, other (flat affect; oriented to person place and time but not situation) Crainal Nerves: normal hearing, abnormal speech, facial asymmetry Motor/Sensory: no sensory deficit, pronator drift (L), weak motor strength LUE, weak motor strength LLE (4/5) Skin: normal color, warm/dry Stroke Onset of Symptoms Date of Onset of Symptoms: Dec 31, 2018 Time of Symptom Onset: 10:30 Onset of Symptoms: Yes Symptoms onset unknown: Yes NIH Stroke Scale Assessment Select: Initial Level of Consciousness: 0=Alert (0), LOC Commands: 0=Performs both tasks (0), Gaze: Normal (0), Visual Wright: 0=No visual loss (0), Facial Movement (Facial Paresis): 2=Partial paralysis (2), Motor Function-Arms Right: 0=No drift (0), Motor Function-Arms Left: 1=Drift (1), Motor Function- Legs Right: 0=No drift (0), Motor Function-Legs Left: 1=Drift (1), Limb Ataxia: 0=Absent (0), Sensory: 0=Normal:no loss (0), Best Language: 0=No aphasia (0), Dysarthria: 1=Mild to moderate loss (1), Extinction & Inattention: 0=No abnormality (0), Total: 5 Stroke Thrombolytic Exclusion Age 18 or Over: Yes Acute intenal hemorrhage: No History of CVA: Yes Uncontrolled Coagulation Defec: No Intracranial Hemorrhage: No Severe Hypertension: No GI or Bleed: No Subarachnoid Hemorrhage: No Intracranial Neoplasm/Aneurysm: No Oral Anticoagulants: Yes (Xarelto) Surgery or Trauma: No Puncture of Non-Compressible V: No Recent CPR: No Diabetic Hemorrhagic Retinopat: No Organ Biopsy: No Recent Obstetric Delivery: No Glucose: No Significant Hepatic Dysfunctio: No NIH Stoke Scale >22: No Bacterial Endocarditis: No Pericarditis: No Improving Symptoms: No Platelets: No TPA Contraindication: Yes (outside the window; on Xarelto.) IV - TPa Received IV - TPa Procedure Performed?: No (outside the window) Progress/Results/Core Measures Results/Orders Lab Results Laboratory Tests Test 12/31/18 15:18 Range/Units White Blood Count 8.9 4.3-11.0 10^3/uL Red Blood Count 4.57 4.35-5.85 10^6/uL Hemoglobin 13.1 11.5-16.0 G/DL Hematocrit 42 35-52 % Mean Corpuscular Volume 92 80-99 FL Mean Corpuscular Hemoglobin 29 25-34 PG Mean Corpuscular Hemoglobin Concent 31 L 32-36 G/DL Red Cell Distribution Width 20.5 H 10.0-14.5 % Platelet Count 113 L 130-400 10^3/uL Mean Platelet Volume 10.5 H 7.4-10.4 FL Neutrophils (%) (Auto) 74 42-75 % Lymphocytes (%) (Auto) 16 12-44 % Monocytes (%) (Auto) 9 0-12 % Eosinophils (%) (Auto) 2 0-10 % Basophils (%) (Auto) 0 0-10 % Neutrophils # (Auto) 6.6 1.8-7.8 X 10^3 Lymphocytes # (Auto) 1.4 1.0-4.0 X 10^3 Monocytes # (Auto) 0.8 0.0-1.0 X 10^3 Eosinophils # (Auto) 0.1 0.0-0.3 10^3/uL Basophils # (Auto) 0.0 0.0-0.1 10^3/uL Prothrombin Time 17.6 H 12.2-14.7 SEC INR Comment 1.4 0.8-1.4 Activated Partial Thromboplast Time 31 24-35 SEC D-Dimer 0.27 0.00-0.49 UG/ML Urine Color YELLOW Urine Clarity CLEAR Urine pH 7 5-9 Urine Specific Pinnacle 1.010 L 1.016-1.022 Urine Protein 1+ H NEGATIVE Urine Glucose (UA) NEGATIVE NEGATIVE Urine Ketones NEGATIVE NEGATIVE Urine Nitrite NEGATIVE NEGATIVE Urine Bilirubin NEGATIVE NEGATIVE Urine Urobilinogen NORMAL NORMAL MG/DL Urine Leukocyte Esterase NEGATIVE NEGATIVE Urine RBC (Auto) NEGATIVE NEGATIVE Urine RBC NONE /HPF Urine WBC NONE /HPF Urine Squamous Epithelial Cells NONE /HPF Urine Crystals NONE /LPF Urine Bacteria NEGATIVE /HPF Urine Casts NONE /LPF Urine Mucus NEGATIVE /LPF Urine Culture Indicated NO Sodium Level 140 135-145 MMOL/L Potassium Level 4.2 3.6-5.0 MMOL/L Chloride Level 109 H 98-107 MMOL/L Carbon Dioxide Level 21 21-32 MMOL/L Anion Gap 10 5-14 MMOL/L Blood Urea Nitrogen 17 7-18 MG/DL Creatinine 1.55 H 0.60-1.30 MG/DL Estimat Glomerular Filtration Rate 33 BUN/Creatinine Ratio 11 Glucose Level 112 H 70-105 MG/DL Calcium Level 9.6 8.5-10.1 MG/DL Corrected Calcium 9.7 8.5-10.1 MG/DL Total Bilirubin 0.5 0.1-1.0 MG/DL Aspartate Amino Transf (AST/SGOT) 20 5-34 U/L Alanine Aminotransferase (ALT/SGPT) 21 0-55 U/L Alkaline Phosphatase 114 40-136 U/L Troponin I < 0.028 <0.028 NG/ML Total Protein 6.3 L 6.4-8.2 GM/DL Albumin 3.9 3.2-4.5 GM/DL My Orders Orders - KANDY OLIVEIRA Cbc With Automated Diff (12/31/18 15:19) Protime With Inr (12/31/18:) Partial Thromboplastin Time (12/31/18:) Comprehensive Metabolic Panel (12/31/18:) Fibrin Degradation Products (12/31/18:) Troponin I (12/31/18:) Ua Culture If Indicated (12/31/18 15:) Chest 1 View, Ap/Pa Only (12/31/18:) Ekg Tracing (12/31/18:) Nothing By Mouth (01/01/19 Breakfast) Ed Iv/Invasive Line Start (12/31/18:) Ed Iv/Invasive Line Start (12/31/18:) Vital Signs Stroke Patient Q15M (12/31/18:) Ct Head Wo-R/O Stroke (12/31/18:) O2 (12/31/18:) Intake & Output 06,14,22 (12/31/18:) Monitor-Rhythm Ecg Trace Only (12/31/18:) Dysphagia Screening Tool (12/31/18:) Post Thrombolytic Adminstratio (12/31/18:) Lipid Panel (01/01/19 06:00) Ct Angio Head/Neck (12/31/18:19) Catheter(Urinary) Insert & Ass 03,15 (12/31/18 15:19) Vital Signs/I&O 12/31/18 15:09 Temp 35.8 Pulse 57 Resp 16 B/P (MAP) 133/81 (98) Pulse Ox 97 O2 Delivery Room Air Blood Pressure Mean: 98 Progress Progress Note #1: Time: 15:34 Progress Note Accu-Chek performed by EMS. Outside the window for TPA we've ordered a CT without contrast and a CT angiogram of the head and neck. EKG labs workup for potential stroke. Patient is a loop recorder on chest x-ray. We will try to interrogated. Progress Note #2: Time: 16:33 Progress Note Granddaughter adds to the history by saying that she was visiting her grandmother and went and got her something to eat and was feeding the patient when she noticed that the patient started having sudden facial drooping confusion and increased weakness on the left side at 1430. She said none of these symptoms were occurring when she arrived. When the patient arrived the information was that she did not have a good last well-known time. Granddaughter statement has altered the last known well time to 1430. The patient is still excluded from TPA based on the use of Xarelto. We discussed this with the family as well as at length discussed risks, benefits and alternatives to doing a CT angiogram looking for a actionable clot in the brain is slight bleeding less than 10% chance based on her NIH. The patient says she does not want to get worse and does not want to go on dialysis. We discussed the reasonable risk of worsening kidney failure with contrast CT. In the past she has refused contrast CTs for this reason. After a prolonged discussion of the risks, benefits and alternatives of the procedures and what the patient's goals were the patient has come to the conclusion that she would prefer not to do CT with IV contrast angiogram. She thinks the risks would outweigh the benefits. She does still want to participate in physical therapy and try to get better. Initial ECG Impression Date: Dec 31, 2018 Initial ECG Impression Time: 15:12 Initial ECG Rate: 55 Initial ECG Rhythm: Normal Sinus Initial ECG Intervals: CT (232) Initial ECG Impression: Normal, Nonspecific Changes Comment Sinus rhythm with first-degree AV block. No ST elevation or depression. Diagnostic Imaging Diagonstic Imaging: Xray Plain Films/CT/US/NM/MRI: chest (1v) Comments No acute cardiopulmonary process noted on one view chest x-ray Reviewed: Reviewed by Me Diagonstic Imaging: CT (without IV contrast) Plain Films/CT/US/NM/MRI: head Comments No intracranial hemorrhage, mass effect, tumor, midline shift. No calvarial fracture or soft tissue changes acutely. Reviewed: Reviewed by Me Consults : Consults Notes [facility] stroke neurologist on-call: Dr. Pringle. after discussing the case Dr. Pringle agrees that the patient is outside the window for TPA. She agrees with doing a CT angiogram. She would like us to call her back after we have the results to discuss final disposition. We discussed the patient's GFR being 53 and that she has chronic renal disease. Dr. Pringle wants us to make sure that first of all the patient will be willing to do anything about a large vessel occlusion every found it and then advised the patient that it be about a 10% positive rate for large vessel occlusion given a NIH of 5 points. The risk of causing a contrast-related nephropathy is probably overstated but a real possibility to consider if we are to proceed with contrast angiogram. Departure Communication (Admissions) Time/Spoke to Admitting Phy: 17:30 Dr You: She agrees to observe the patient in the Intensive care stepdown with Dr. Watson consulted in for Dr. Aponte and do a physical therapy occupational therapy acute rehabilitation consult. Time/Spoke to Consulting Phy: 17:[address] Watson and he agrees to consult on the patient. He agrees with continuing Xarelto and aspirin as long as there is no sign of a bleed. Impression Primary Impression: Cerebrovascular accident (CVA) with left hemiparesis Disposition: ADMITTED INPATIENT Condition: Stable Admissions Decision to Admit Reason: Admit from ER (General) Decision to Admit/Date: Dec 31, 2018 Time/Decision to Admit Time: 17:15 Departure-Patient Inst. Referrals: KENZIE COOPER MD (PCP) Primary Care Physician [facility]/ (Family) Primary Care Physician KANDY OLIVEIRA Dec 31, 2018 15:33
[2018-12-31 15:37] LABS: ALANINE AMINOTRANSFERASE 21 U/L (0-55); ALBUMIN 3.9 GM/DL (3.2-4.5); ALKALINE PHOSPHATASE 114 U/L (40-136); BILIRUBIN,TOTAL 0.5 MG/DL (0.1-1.0); BUN/CREATININE RATIO 11; CALCIUM 9.6 MG/DL (8.5-10.1); CARBON DIOXIDE 21 MMOL/L (21-32); CHLORIDE 109 MMOL/L (98-107); CREATININE SERUM 1.55 MG/DL (0.60-1.30); GFR ESTIMATED 33; GLUCOSE 112 MG/DL (70-105); POTASSIUM 4.2 MMOL/L (3.6-5.0); SODIUM 140 MMOL/L (135-145); TOTAL PROTEIN 6.3 GM/DL (6.4-8.2)
[2018-12-31 15:40] LABS: FIBRIN DEGRADATION PRODUCTS 0.27 UG/ML (0.00-0.49)
[2018-12-31 15:41] LABS: INR 1.4 (0.8-1.4); PROTHROMBIN TIME PATIENT 17.6 SEC (12.2-14.7)
--- NOTE | 2018-12-31 15:43 | Diagnostic Imaging Report ---
PROCEDURE: CT head bates r/o stroke. TECHNIQUE: Multiple contiguous axial images were obtained through the brain without the use of intravenous contrast. Auto Exposure Controls were utilized during the CT exam to meet ALARA standards for radiation dose reduction. DATE: December 31, 2018. COMPARISON: MRI brain July 18, 2018. CT head July 08, 2018. INDICATION: 73-year-old female, weakness and left-sided facial droop. FINDINGS: There are changes of encephalomalacia in the high right parietal lobe anteriorly. There are changes of encephalomalacia in the left frontoparietal region and also in the right frontoparietal region. There is proportional prominence of the ventricles and CSF spaces consistent with moderate cerebral volume loss. There is no abnormal extra-axial fluid collection. There is no evidence of acute intracranial hemorrhage. There is no mass effect or midline shift. There are prominent areas of low attenuation in the periventricular and subcortical white matter most likely reflecting advanced changes of chronic small vessel ischemic disease. There are small foci of low-attenuation in the right and left thalamus which may relate to remote prior lacunar infarcts and/or prominent perivascular spaces. The visualized portions of the paranasal sinuses, mastoid air cells, and middle ears are well-aerated bilaterally. IMPRESSION: 1. No identified acute intracranial abnormality. 2. Multifocal areas of encephalomalacia with moderate cerebral volume loss and prominent changes of chronic small vessel ischemic disease. Dictated by: Dictated on workstation # [id number]
--- NOTE | 2018-12-31 15:43 | Diagnostic Imaging Report ---
EXAMINATION: Portable erect AP chest at 03:35 p.m. INDICATION: Weakness. FINDINGS: Mild cardiomegaly noted on the prior exam of 07/17/2018 is again evident and no different. The lungs remain generally clear. There is no sign of failure, pneumonia or pleural effusion. The mediastinum is not widened. The osseous structures are intact. The loop recorder device overlying the left thorax seen previously is again evident. IMPRESSION: Stable chest. There has been no adverse change since the prior exam. Dictated by: Dictated on workstation # [id number]
[2018-12-31] MEDS ORDERED: oxyCODONE/APAP 5/325MG (PERCOCET 5) TABLET PO PRN (20:45)
[2018-12-31] MEDS ORDERED: HYDROmorphone 2 MG/ML VIAL (DILAUDID) IV PRN (20:45)
[2018-12-31] MEDS ORDERED: ONDANSETRON 4 MG/2 ML (SDV) Z0FRAN IV PRN (20:45)
[2018-12-31] MEDS ORDERED: ACETAMINOPHEN 325 MG TABLET PO PRN (20:45)
[2018-12-31] MEDS: GABAPENTIN 300 MG (NEURONTIN) CAP PO SCH (21:23)
[2018-12-31] MEDS: BRIMONIDINE 0.2% (ALPHAGAN) OPHTH SOLN 5 ML BTL OU SCH (21:24)
[2018-12-31] MEDS: buPROPion SR 150 MG (WELLBUTRIN SR) TAB PO SCH (21:24)
[2019-01-01] VITALS (10 sets, daily range): BP systolic 100–160; BP diastolic 41–86
[2019-01-01 04:09] LABS: BASOPHILS % (AUTO) 0 % (0-10); EOSINOPHILS # (AUTO) 0.2 10^3/uL (0.0-0.3); EOSINOPHILS % (AUTO) 3 % (0-10); HEMATOCRIT 42 % (35-52); HEMOGLOBIN 12.6 G/DL (11.5-16.0); LYMPHOCYTES # (AUTO) 2.1 X 10^3 (1.0-4.0); LYMPHOCYTES % (AUTO) 31 % (12-44); MEAN CORPUSCULAR HEMOGLOBIN 28 PG (25-34); MEAN CORPUSCULAR HGB CONC 30 G/DL (32-36); MEAN CORPUSCULAR VOLUME 92 FL (80-99); MEAN PLATELET VOLUME 10.9 FL (7.4-10.4); MONOCYTES # (AUTO) 0.6 X 10^3 (0.0-1.0); MONOCYTES % (AUTO) 9 % (0-12); NEUTROPHILS # (AUTO) 3.9 X 10^3 (1.8-7.8); NEUTROPHILS % (AUTO) 57 % (42-75); PLATELET COUNT 131 10^3/uL (130-400); RED CELL DISTRIBUTION WIDTH 20.8 % (10.0-14.5); WHITE BLOOD COUNT 6.8 10^3/uL (4.3-11.0)
[2019-01-01 04:27] LABS: ALBUMIN 3.4 GM/DL (3.2-4.5); BILIRUBIN,TOTAL 0.3 MG/DL (0.1-1.0); CALCIUM 9.8 MG/DL (8.5-10.1); CREATININE SERUM 1.43 MG/DL (0.60-1.30); POTASSIUM 4.3 MMOL/L (3.6-5.0); TOTAL PROTEIN 5.7 GM/DL (6.4-8.2)
--- NOTE | 2019-01-01 08:57 | Consultation-Cardiology ---
HPI-Cardiology Cardiology Consultation: Date of Consultation 01/01/19 Time Seen by a Provider: 08:40 Date of Admission Attending Physician Lindsay You DO Admitting Physician Susanne Livingston MD Consulting Physician ZACH BENSON MD, MA, FACP, FACC, FSCAI, CCDS Physician requesting consult: Dr You HPI: Chief Complaint: CC: Confusion and L-sided weakness HPI 73 yo woman admitted by Dr You to her service yesterday after the patient had presented with a feeling of confusion and worsening of chronic L-sided weakness. She was diagnosed with TIA/CVA and Dr You is managing that. We have been asked to see in Card consult. She does not report chest pain or shortness of breath or palp or syncope or ankle swelling. She feels her confusion has cleared and L-sided weakness is back to usual baseline Review of Systems-Cardiology Review of Systems Constitutional: malaise, tiredness; No weight loss, No weight gain Eyes: No vision change Ears/Nose/Throat: No ear discharge, No nasal drainage, No recent hearing loss Respiratory: As described under HPI Cardiovascular: As described under HPI Gastrointestinal: No constipation, No diarrhea, No nausea, No vomiting Genitourinary: No dysuria, No hematuria, No urine frequency changes Musculoskeletal: back pain (chronic) Skin: No rash, No ulcerations Psychiatric/Neurological: As described under HPI Hematologic: No bleeding abnormalities FVV-Tvstzv-Wzyrbv Hx Patient Social History Alcohol Use: Denies Use Recreational Drug Use: No Smoking Status: Former Smoker Type Used: Cigarettes 2nd Hand Smoke Exposure: No Recent Foreign Travel: No Recent Infectious Disease Expo: No Hospitalization with Isolation: Denies Immunizations Up To Date Tetanus Booster (TDap): Unknown Date of Pneumonia Vaccine: Nov 19, 2013 Date of Influenza Vaccine: Nov 19, 2017 Past Medical History PMH As described under Assessment. Family Medical History Family History: FH: CVA (cerebrovascular accident) G8 BROTHER G8 SISTER FH: breast cancer 19 MOTHER FH: cancer 19 FATHER Hypertension 19 MOTHER Allergies and Home Medications Allergies Coded Allergies: fentanyl (Verified Adverse Reaction, Mild, 10/20/18) MAKES HER HALLUCINATE Home Medications Acetaminophen 325 Mg Tablet, 650 MG PO Q4H PRN for PAIN-MILD, (Reported) Amlodipine Besylate 5 Mg Tablet, 5 MG PO HS, (Reported) Aspirin 81 Mg Tablet.dr, 81 MG PO DAILY, (Reported) Atorvastatin Calcium 20 Mg Tablet, 20 MG PO HS, (Reported) Baclofen 10 Mg Tablet, 10 MG PO TID PRN for MUSCLE SPASMS, (Reported) Bethanechol Chloride 25 Mg Tablet, 25 MG PO TID, (Reported) Brimonidine Tartrate 5 Ml Btl, 1 DROP OU BID, (Reported) Bupropion HCl 150 Mg Tablet.er, 150 MG PO DAILY, (Reported) Diclofenac Sodium 100 Gm Gel..gram., 2 GM TP QID PRN for JOINT PAIN, (Reported) Escitalopram Oxalate 10 Mg Tablet, 10 MG PO HS, (Reported) Gabapentin 300 Mg Capsule, 300 MG PO BID, (Reported) Lactulose 20 Gm/30 Ml Solution, 15 ML PO BID, (Reported) Latanoprost 2.5 Ml Drops, 1 DROP OU HS, (Reported) Magnesium Oxide 400 Mg Tablet, 400 MG PO BID, (Reported) Metoprolol Succinate 100 Mg Tab.er.24h, 100 MG PO DAILY, (Reported) HOLD AND NOTIFY IF SBP<100 AND/OR DBP<60 AND/OR PULSE </= 60 Pantoprazole Sodium 40 Mg Tablet.dr, 40 MG PO DAILY, (Reported) Pentoxifylline 400 Mg Tablet.er, 400 MG PO DAILY, (Reported) Promethazine HCl 25 Mg Supp.rect, 25 MG RC Q4H PRN for NAUSEA/VOMITING-2ND LINE, (Reported) Rivaroxaban 20 Mg Tablet, 20 MG PO 1800, (Reported) Tamsulosin HCl 0.4 Mg Cap, 0.4 MG PO 1800, (Reported) Tramadol HCl 50 Mg Tablet, 50 MG PO QID PRN for PAIN-MODERATE, (Reported) Patient Home Medication List Home Medication List Reviewed: Yes Physical Exam-Cardiology Physical Exam Vital Signs/I&O 12/31/18 12/31/18 12/31/18 12/31/18 21:00 21:00 21:46 22:00 Pulse 56 57 Resp 15 21 B/P (MAP) 146/103 (117) 119/81 (94) Pulse Ox 93 97 99 95 O2 Delivery Room Air Room Air Room Air Room Air 12/31/18 12/31/18 01/01/19 01/01/19 23:00 23:51 00:00 01:00 Temp 37.0 Pulse 55 48 55 Resp 15 14 B/P (MAP) 141/51 (81) 103/53 (70) Pulse Ox 92 91 O2 Delivery Room Air Room Air 01/01/19 01/01/19 01/01/19 01/01/19 01:00 02:00 03:00 03:30 Temp 36.8 Pulse 55 59 56 Resp 14 14 25 B/P (MAP) 100/51 (67) 101/81 (88) 116/86 (96) Pulse Ox 94 94 97 O2 Delivery Room Air Room Air Room Air Room Air 01/01/19 01/01/19 01/01/19 01/01/19 04:00 05:00 06:00 07:00 Pulse 51 58 54 62 Resp 14 15 27 B/P (MAP) 112/41 (64) 152/62 (92) 160/70 (100) Pulse Ox 92 94 92 O2 Delivery Room Air Room Air Room Air 01/01/19 08:00 Pulse 67 Resp 18 B/P (MAP) 120/59 (79) Pulse Ox 94 O2 Delivery Room Air 01/01/19 00:00 Intake Total 240 ml Output Total 875 ml Balance -635 ml Capillary Refill : Less Than 3 Seconds Constitutional: AAO x 3, well-developed, well-nourished HEENT: EOMI, hearing is well preserved; No xanthelasmas are seen Neck: carotid pulses are 2 + bilaterally, with good upstrokes Respiratory: No accessory muscle use; other (good bilat air entry; a few coarse basal crackles) Cardiovascular: regular rate-rhythm, S1 and S2, systolic murmur (faint ASHOK at card base) Gastrointestinal: No tender; soft; No guarding, No rebound; audible bowel sounds Extremities: No clubbing, No cyanosis Neurologic/Psychiatric: alert, oriented x 3, other (Mild to mod L-sided weakness) Skin: No rash, No ulcerations Data Review Labs Laboratory Tests 12/31/18 15:18: White Blood Count 8.9, Red Blood Count 4.57, Hemoglobin 13.1, Hematocrit 42, Mean Corpuscular Volume 92, Mean Corpuscular Hemoglobin 29, Mean Corpuscular Hemoglobin Concent 31L, Red Cell Distribution Width 20.5H, Platelet Count 113L, Mean Platelet Volume 10.5H, Neutrophils (%) (Auto) 74, Lymphocytes (%) (Auto) 16, Monocytes (%) (Auto) 9, Eosinophils (%) (Auto) 2, Basophils (%) (Auto) 0, Neutrophils # (Auto) 6.6, Lymphocytes # (Auto) 1.4, Monocytes # (Auto) 0.8, Eosinophils # (Auto) 0.1, Basophils # (Auto) 0.0, Prothrombin Time 17.6H, INR Comment 1.4, Activated Partial Thromboplast Time 31, D-Dimer 0.27, Urine Color YELLOW, Urine Clarity CLEAR, Urine pH 7, Urine Specific Royal 1.010L, Urine Protein 1+H, Urine Glucose (UA) NEGATIVE, Urine Ketones NEGATIVE, Urine Nitrite NEGATIVE, Urine Bilirubin NEGATIVE, Urine Urobilinogen NORMAL, Urine Leukocyte Esterase NEGATIVE, Urine RBC (Auto) NEGATIVE, Urine RBC NONE, Urine WBC NONE, Urine Squamous Epithelial Cells NONE, Urine Crystals NONE, Urine Bacteria NEGATIVE, Urine Casts NONE, Urine Mucus NEGATIVE, Urine Culture Indicated NO, Sodium Level 140, Potassium Level 4.2, Chloride Level 109H, Carbon Dioxide Level 21, Anion Gap 10, Blood Urea Nitrogen 17, Creatinine 1.55H, Estimat Glomerular Filtration Rate 33, BUN/Creatinine Ratio 11, Glucose Level 112H, Calcium Level 9.6, Corrected Calcium 9.7, Total Bilirubin 0.5, Aspartate Amino Transf (AST/SGOT) 20, Alanine Aminotransferase (ALT/SGPT) 21, Alkaline Phosphatase 114, Troponin I < 0.028, Total Protein 6.3L, Albumin 3.9 01/01/19 03:00: White Blood Count 6.8, Red Blood Count 4.54, Hemoglobin 12.6, Hematocrit 42, Mean Corpuscular Volume 92, Mean Corpuscular Hemoglobin 28, Mean Corpuscular Hemoglobin Concent 30L, Red Cell Distribution Width 20.8H, Platelet Count 131, M usha Platelet Volume 10.9H, Neutrophils (%) (Auto) 57, Lymphocytes (%) (Auto) 31, Monocytes (%) (Auto) 9, Eosinophils (%) (Auto) 3, Basophils (%) (Auto) 0, Neutrophils # (Auto) 3.9, Lymphocytes # (Auto) 2.1, Monocytes # (Auto) 0.6, Eosinophils # (Auto) 0.2, Basophils # (Auto) 0.0, Sodium Level 142, Potassium Level 4.3, Chloride Level 109H, Carbon Dioxide Level 22, Anion Gap 11, Blood Urea Nitrogen 15, Creatinine 1.43H, Estimat Glomerular Filtration Rate 36, BUN/Creatinine Ratio 10, Glucose Level 113H, Calcium Level 9.8, Corrected Calcium 10.3H, Total Bilirubin 0.3, Aspartate Amino Transf (AST/SGOT) 17, Alanine Aminotransferase (ALT/SGPT) 15, Alkaline Phosphatase 97, Total Protein 5.7L, Albumin 3.4, Triglycerides Level 116, Cholesterol Level 117, LDL Cholesterol Direct 51, VLDL Cholesterol 23, HDL Cholesterol 44 Laboratory Tests 12/31/18 15:18 01/01/19 03:00 A/P-Cardiology Assessment/Admission Diagnosis Ac TIA/CVA, being managed by Dr You. History of multiple CVA in the past. Hypercoagulable state workup has been negative (normal protein C, protein S and, antithrombin III; no factor V Leiden mutation; anticardiolipin antibody negative; factor II mutant was also negative). PAF, document on previousl ILR tranmissions. Pt is since on Xarelto Small PFO seen on [facility] March 2014 H/o leg claudication and peripheral arterial disease, last ALYSA was done in May 2015 and was within normal limits Hypertension, by history Hyperlipidemia, by history CYP 2C19 showed intermediate metabolizer. Mild bilateral carotid stenosis on carotid u/s of December 2017 CKD-3, followed and monitored by Dr. Travis. History of osteoarthritis, rheumatoid arthritis, and fibromyalgia. History of depression. History of elevated LPa Discussion and Recomendations * Continue Xarelto and low-dose ASA, if no evidence of bleed (Dr You to make that determination) * Echo * Monitor labs Clinical Quality Measures DVT/VTE Risk/Contraindication: Risk Factor Score Per Nursin RFS Level Per Nursing on Admit: 3=High Stroke: Date of last known well: Dec 31, 2018 Time of last known well: 10:30 Symptoms onset unknown: Yes ZACH BENSON MD FAC FAC CCDS Jan 01, 2019 08:57
[2019-01-01] MEDS ORDERED: RIVAROXABAN 10 MG TABLET (XARELTO) PO SCH (09:00)
[2019-01-01] MEDS ORDERED: FERR-84 PO (09:40)
[2019-01-01] MEDS ORDERED: DICL100G31 TOP (09:40)
[2019-01-01] MEDS ORDERED: RIVA20TA PO (09:40)
[2019-01-01] MEDS ORDERED: L.AC1CAP6 PO (09:40)
[2019-01-01] MEDS ORDERED: BUPR-168 PO (09:47)
--- NOTE | 2019-01-01 09:48 | NUR ---
SPOKE WITH THE PATIENT ABOUT HER MEDICATIONS. SHE STATES SHE IS NOT SURE WHAT SHE TAKES BECAUSE HER DAUGHTER HAS BEEN HELPING HER SET UP HER PILL BOX. HOWEVER SHE DOES HAVE A BAG OF BOTTLES IN THE ROOM WITH A LIST. WE WENT OVER THAT LIST, THE BOTTLES, AND COMPARED WITH THE EXT MED HX. SHE FILLED DONEPEZIL 5MG 12-19-18 #30 HOWEVER SHE HAS STOPPED TAKING THIS OF 12-30-18. HER BOTTLE IS PAST DUE FOR REFILL ON THE PROTONIX. THE BOTTLE SHE HAS WAS FILLED 02-14-19 #90 BUT I CAN SEE ON THE EXT MED HX IT WAS ALSO FILLED 05-11-18 #90. CALLED AND SPOKE WITH HER DAUGHTER AND SHE STATES THE PATIENT IS TAKING IT EVERYDAY. SHE SPENT A FEW MONTHS OVER THE SUMMER AT [facility] [employer] AND THEY HAD SOME SUPPLY BUILT UP FROM THAT TIME. HER BUPROPION 75MG 2 BID #360 WAS FILLED 09-01-18 -[facility] ALSO FILLED ACCORDING TO THE EXT MED HX XL 300MG DAILY #30 11-23-18. HER DAUGHTER STATES THEY NEVER GOT THE 300MG FROM [facility], THAT WAS CALLED INTO THAT PHARMACY BY MISTAKE FROM WHEN THE PATIENT WAS IN THE HALF-WAY. THEY HAVE BEEN DOING THE OTHER DOSE AND HAVE NOT RAN OUT YET SINCE SHE WAS IN THE HOME FOR SEVERAL MONTHS BUT THEY ARE WORKING WITH TO GET THE REFILL CALLED IN TO THE RIGHT PHARMACY. SHE TAKES THE FOLLOWING OTC: MAG 400 BID IRON 1200 PROBIOTIC 2 1200 TYLENOL PRN
[2019-01-01] MEDS: BRIMONIDINE 0.2% (ALPHAGAN) OPHTH SOLN 5 ML BTL OU SCH ×2 (10:31→20:42)
[2019-01-01] MEDS: RIVAROXABAN 15 MG TABLET (XARELTO) PO SCH (10:32)
[2019-01-01] MEDS: meTOprolol SUCCINATE 100 MG (TOPROL XL) TAB PO SCH (10:32)
[2019-01-01] MEDS: amLODIPine 5 MG (NORVASC) TAB PO SCH (10:32)
[2019-01-01] MEDS: buPROPion SR 150 MG (WELLBUTRIN SR) TAB PO SCH ×2 (10:32→20:42)
[2019-01-01] MEDS: ASPIRIN E.C. 325 MG (ECOTRIN) TABLET PO SCH (10:42)
[2019-01-01] MEDS: GABAPENTIN 300 MG (NEURONTIN) CAP PO SCH ×2 (10:42→20:42)
[2019-01-01] MEDS: PANTOPRAZOLE 40 MG (PROTONIX) TAB PO SCH (10:42)
--- NOTE | 2019-01-01 11:50 | Physical Therapy Evaluation ---
PT Evaluation-General Medical Diagnosis Admission Date Dec 31, 2018 at 17:30 Medical Diagnosis: CVA/TIA Onset Date: Dec 31, 2018 Therapy Diagnosis Therapy Diagnosis: generalized weakness/debility Height/Weight Height (Feet): 5 Height (Inches): 4.00 Weight (Pounds): 170 Weight (Ounces): 1.6 Precautions Precautions/Isolations: Fall Prevention, Standard Precautions Referral Physician: Kenyatta Reason for Referral: Evaluation/Treatment Medical History Pertinent Medical History: Atrial Fib, Arthritis, CVA, GERD, HTN Current History EMS with left sided weakness Reviewed History: Yes Social History Home: Single Level Current Living Status: caregivers Entry Into Home: Stairs With Railing PT Steps Into Home: 2 Prior Prior Level of Function SCALE: Activities may be completed with or without assistive devices. 8-Rtyivozyjz-vjghoau completes the activity by him/herself with no assistance from a helper. 5-Set-up or Clean-up Assistance-helper sets up or cleans up; patient completes activity. [place] assists only prior to or following the activity. 4-Supervision or Touching Assistance-helper provides verbal cues and/or touc gianni/steadying and/or contact guard assistance as patient completes activity. Assistance may be provided throughout the activity or intermittently. 3-Partial/Moderate Assistance-helper does LESS THAN HALF the effort. Denver lifts, holds or supports trunk or limbs, but provides less than half the effort. 2-Substantial/Maximal Assistance-helper does MORE THAN HALF the effort. [place] lifts or holds trunk or limbs and provides more than half the effort. 1-Jlnqffmyw-nanykf does ALL the effort. Patient does none of the effort to complete the activity. Or, the assistance of 2 or more helpers is required for the patient to complete the activity. If activity was not attempted, code reason: 7-Patient Refused. 9-Not Applicable-not attempted and the patient did not perform the activity before the current illness, exacerbation or injury. 10-Not Attempted due to Environmental Limitations-(lack of equipment, weather restraints, etc.). 88-Not Attempted due to Medical Conditions or Safety Concerns. Bed Mobility: 5 Transfers (B,C,W/C): 5 Gait: 5 Stairs: 5 Indoor Mobility (Ambulation): Needed Some Help Stairs: Needed Some Help Prior Devices Use: Walker PT Evaluation-Current Subjective Patient is in bed and agrees to PT. Pain Numeric Pain Scale: 0-No Pain Location: No Pain Reported Objective Patient Orientation: Person, Time, Situation Problem Solving: Fair ROM/Strength ROM Lower Extremities left LE WFL/right LE WFL Strength Lower Extremities left LE 3-/5 knee flexion/3/5 knee extension/ 1/5 DF/PF and hip flexion right LE 3+/5 all planes Integumentary/Posture Integumentary refer to nursing notes Bowel Incontinence: No Bladder Incontinence: No Posture kyphotic and left side cervical lateral flexion Neuromuscular (Tone, Coordination, Reflexes) noted tone left UE and LE Sensory Vision: Functional Hearing: Functional Sensation Right Lower Extremit: Intact Sensation Left Lower Extremity: Intact Transfers Roll Left to Right (QC): 4 Sit to Lying (QC): 4 Lying to Sitting/Side of Bed(Q: 4 Sit to Stand (QC): 4 Chair/Eqf-pz-Jqaex Xfer(QC): 4 Gait Does the Patient Walk?: Yes Mode of Locomotion: Walk Anticipated Mode of Locomotion: Walk Distance (FIM): 1=up to 49 ft Walk 10 feet (QC): 4 Walk 50 ft with 2 Turns(QC): 88 Walk 150 ft (QC): 88 Walking 10ft/uneven surface-QC: 88 Distance: 45' Gait Assistive Device: FWW Comments/Gait Description left LE lag with gait training with VC's for gait sequence Balance Sitting Static: Fair Sitting Dynamic: Fair Standing Static: Fair Standing Dynamic: Fair Assessment/Needs 73 y.o. female, will benefit from skilled PT to address functional strength and mobility to improve current LOF to safely return to home or care facility at maximum LOF. Rehab Potential: Guarded PT Halfway Goals Halfway Goals PT Major Assembly Lineman Goals Time Frame: Jan 18, 2019 Sit to Lying (QC): 5 Lying-Sitting on Side/Bed(QC): 5 Sit to Stand (QC): 5 Roll Left to Right (QC): 5 Chair/Fpy-bz-Yglhs Xfer(QC): 5 Does the Patient Walk: Yes Distance: 100' Walk 10 feet (QC): 5 Walk 10ft-Uneven Surface(QC): 5 Walk 50ft with 2 Turns (QC): 5 Gait Assistive Device: FWW PT Plan Problem List Problem List: Activity Tolerance, Functional Strength, Safety, Balance, Gait, Transfer, Bed Mobility Treatment/Plan Treatment Plan: Continue Plan of Care Treatment Plan: Bed Mobility, Education, Functional Activity Sarah, Functional Strength, Gait, Safety, Therapeutic Exercise, Transfers Treatment Duration: Jan 18, 2019 Frequency: 6 times per week Estimated Hrs Per Day: .25 hour per day Patient and/or Family Agrees t: Yes Time/GCodes Time In: 1050 Time Out: 1110 Total Billed Treatment Time: 20 Total Billed Treatment 1 visit EVModC 20 min FELICITA SINGH PT Jan 01, 2019 11:50
--- NOTE | 2019-01-01 12:36 | Diagnostic Imaging Report ---
PROCEDURE: MR imaging of the brain without contrast. TECHNIQUE: Multiplanar, multisequence MR imaging of the brain was performed without contrast. INDICATION: Left-sided weakness. COMPARISON: Correlation is made with prior MRI of the brain from 07/18/[address] from 12/31/2018. FINDINGS: Areas of encephalomalacia identified in the bilateral cerebral hemispheres are again noted and consistent with prior infarcts. There is extensive periventricular and subcortical white matter signal abnormality noted. There is no midline shift. No acute intra-axial or extra-axial hemorrhage is detected. There is a tiny focus of diffusion restriction in the right posterior temporoparietal lobe. This is suggestive of a microinfarct. No other areas of diffusion restriction are seen. The normal expected flow-voids within the carotid siphons are identified. Corpus callosum and brainstem are unremarkable. Sella and parasellar structures are unremarkable. IMPRESSION: Findings suggestive of a microinfarct in the right posterior temporal parietal lobe. No other acute feature is identified. Significant chronic changes are similar to prior imaging. Dictated by: Dictated on workstation # [id number]
--- NOTE | 2019-01-01 14:17 | Occupational Therapy Eval ---
OT Evaluation-General/PLF Medical Diagnosis Admission Date Dec 31, 2018 at 17:30 Medical Diagnosis: CVA/TIA Onset Date: Dec 31, 2018 Therapy Diagnosis Therapy Diagnosis: decreased functional mobility and ADLs Height/Weight Height (Feet): 5 Height (Inches): 4.00 Weight (Pounds): 170 Weight (Ounces): 1.6 Precautions Precautions/Isolations: Fall Prevention, Standard Precautions Safety Interventions: Bed Exit Alarm Weight Bear Status Weight Bearing Restriction: Weight Bearing/Tolerated Referral Physician: Kenyatta Referral Reason: Activity Tolerance, Self Care, Evaluation/Treatment, Strengthening/ROM Medical History Pertinent Medical History: Atrial Fib, Arthritis, CVA, GERD, HTN Additional Medical History PMHx: TIA/ stroke with L side affected, a fib, high cholesterol, HTN, PVD, valvular heart disease, OA, cataracts, glaucoma, anxiety/ depression, anemia Current History Neuro-Stroke Like Symptoms/ weakness of L side Reviewed History: Yes Social History Home: Single Level Current Living Status: Alone (with caregiver support) Entry Into Home: Stairs With Railing Steps Into Home: 2 Pt receives caregiver assist ~1 hour per morning for bathing and dressing tasks. Pt has manager business development hospice for IADLs including cooking, laundry, and cleaning tasks. Pt receives paratransit services for outpatient PT services 1x per week in the community. ADL-Prior Level of Function SCALE: Activities may be completed with or without assistive devices. 5-Ddqoyfbfem-jcibnmf completes the activity by him/herself with no assistance from a helper. 5-Set-up or Clean-up Assistance-helper sets up or cleans up; patient completes activity. [place] assists only prior to or following the activity. 4-Supervision or Touching Assistance-helper provides verbal cues and/or touching/steadying and/or contact guard assistance as patient completes activ ity. Assistance may be provided throughout the activity or intermittently. 3-Partial/Moderate Assistance-helper does LESS THAN HALF the effort. Sanderson lifts, holds or supports trunk or limbs, but provides less than half the effort. 2-Substantial/Maximal Assistance-helper does MORE THAN HALF the effort. [place]erson lifts or holds trunk or limbs and provides more than half the effort. 2-Qbjsfjtyz-wditsu does ALL the effort. Patient does none of the effort to complete the activity. Or, the assistance of 2 or more helpers is required for the patient to complete the activity. If activity was not attempted, code reason: 7-Patient Refused. 9-Not Applicable-not attempted and the patient did not perform the activity before the current illness, exacerbation or injury. 10-Not Attempted due to Environmental Limitations-(lack of equipment, weather restraints, etc.). 88-Not Attempted due to Medical Conditions or Safety Concerns. Self Care: Needed Some Help Functional Cognition: Unknown DME/Equipment: Bath Bench, Grab Bars (near toilet and in walk-in shower.) DME/Equipment Comments FWW for functional mobility Occupation: retired Drive Self: No Leisure Interests: TV OT Current Status Subjective Pt denies pain, agreeable to OT tx session. Pt in recliner chair eating. Mental Status/Objective Patient Orientation: Person, Place States year is "1998" Current Glasses/Contacts: Yes Hearing Aids: No Dentures/Partials: Yes Hand Dominance: Right Upper Extremity ROM R WFL L impaired, reaches ~80* shoulder flexion Upper Extremity Coordination R WFL L impaired Upper Extremity Sensation R WFL L- does not c/o numbness/ tingling Upper Extremity Strength R WFL L decreased in all planes and ophthalmic tech strength ADL-Treatment Eating (QC): 6 Toilet Transfer (QC): 5 (SBA to bedside commode, use of arm rests/ grab bars to transfer.) Other Treatments Pt agreeable to OT eval/ treat. Pt sits with head to L, posture hunched forward, and slightly slurred and quiet speech. Pt sit to stand with increased time and SBA to FWW, ambulates slowly with FWW to commode across room. Pt requires cues to keep L foot inside walker, pt corrects upon cues; pt moves L foot to L side of walker, steps on L portion of walker leg ~3x. Pt completes eye tracking exercise, able to track in all places slowly. Pt states she thinks she will go home tomorrow; pt educated of role of OT within acute/ ICU unit. Pt denies need to use bathroom or put on clothes. Pt states she has had ~8 TIA's previously, she is unsure if L side is "any worse than before" (this hospitalization). Pt returns to recliner chair, call light in reach, all needs met, food placed in front of pt. Education OT Patient Education: Correct positioning, Modified ADL techniques, Purpose of tx/functional activities, Reviewed precautions Teaching Recipient: Patient Teaching Methods: Demonstration, Discussion Response to Teaching: Verbalize Understanding, Return Demonstration OT Short Term Goals Short Term Goals Eating(FIM): 6 Grooming(FIM): 6 Upper Body Dressing(FIM): 6 Lower Body Dressing(FIM): 3 Toileting(FIM): 4 1=Demonstrate adherence to instructed precautions during ADL tasks. 2=Patient will verbalize/demonstrate understanding of assistive devices/modifications for ADL. 3=Patient will improve strength/tolerance for activity to enable patient to perform ADL's. OT Delinquency Counselor Goals Penitentiary Goals Eating (QC): 6 Oral Hygiene (QC): 6 Shower/Bathe Self (QC): 4 Upper Body Dressing (QC): 6 Lower Body Dressing (QC): 4 On/Off Footwear (QC): 6 Toileting Hygiene (QC): 5 Toilet/Commode Transfer (QC): 5 Additional Goals: 1-Demonstrate ADL Tasks, 2-Verbalize Understanding, 3- ImproveStrength/Sarah 1=Demonstrate adherence to instructed precautions during ADL tasks. 2=Patient will verbalize/demonstrate understanding of assistive devices/modifications for ADL. 3=Patient will improve strength/tolerance for activity to enable patient to perform ADL's. OT Education/Plan Problem List/Assessment Assessment: Decreased Activ Tolerance, Decreased Safety Aware, Decreased UE Strength, Impaired Coordination, Impaired Funct Balance, Impaired I ADL's, Impaired Self-Care Skills Discharge Recommendations Plan/Recommendations: Continue POC Therapy Discharge Recommendati: Scheduled Assistance Patient/Family Goals Pt wishes to return home. Treatment Plan/Plan of Care Treatment,Training & Education: Yes Patient would benefit from OT for education, treatment and training to promote independence in ADL's, mobility, safety and/or upper extremity function for ADL's. Plan of Care: ADL Retraining, Caregiver Training, Functional Mobility, UE Funct Exercise/Act, UE Neuromus Re-Ed/Coord Treatment Duration: Jan 08, 2019 Frequency: 5 times per week Estimated Hrs Per Day: .25 hour per day Agreement: Yes Rehab Potential: Guarded Time/GCodes Start Time: 13:29 Stop Time: 13:55 Total Time Billed (hr/min): 26 Billed Treatment Time 1 EVM (10), ADL (16) Total= 26 HUE EAGLE OTR Jan 01, 2019 14:17
--- NOTE | 2019-01-01 15:21 | History & Physical ---
HPI History of Present Illness: 73 yo F that presented to ER with increasing confusion and L facial droop. Patient was with her grand daughter and they stated that last known well time was yesterday evening. Patient has significant h/o multiple CVAs and has had hypercoagulable workup that has been negative. Patient states that the weakness seems to be improved but she still feels some difference from her baseline. She has previous left sided weakness from a previous stroke in Apr of this year. At baseline she is able to ambulate with walker by self and able to complete most of her ADLs by self. Currently she needs assistance with ambulation. Source: patient Exam Limitations: no limitations Date seen by provider: Jan 01, 2019 Time Seen by Provider: 10:45 Attending Physician Lindsay You Bethany N MD Consult Date of Admission Dec 31, 2018 at 17:30 Home Medications Home Medications Reviewed patient Home Medication Reconciliation performed by pharmacy medication reconciliations plumbing service technician and/or nursing. Patients Allergies have been reviewed. Allergies Coded Allergies: fentanyl (Verified Adverse Reaction, Mild, 10/20/18) MAKES HER HALLUCINATE BEP-Wekdjj-Mwjybp Hx Patient Social History Alcohol Use: Denies Use Recreational Drug Use: No Smoking Status: Former Smoker Type Used: Cigarettes 2nd Hand Smoke Exposure: No Recent Foreign Travel: No Contact w/other who traveled: No Recent Hopitalizations: No Recent Infectious Disease Expo: No Immunizations Up To Date Tetanus Booster (TDap): Unknown Date of Pneumonia Vaccine: Nov 19, 2013 Date of Influenza Vaccine: Nov 19, 2017 Past Medical History PMHx: CVA TIA HTN Arthritis hyperlipidemia DMII A fib Anxiety SurgHx: Hiatal hernia x 2 Appendectomy Family Medical History Family History: FH: CVA (cerebrovascular accident) G8 BROTHER G8 SISTER FH: breast cancer 19 MOTHER FH: cancer 19 FATHER Hypertension 19 MOTHER Review of Systems (CHC) Constitutional: No chills, No fever, No malaise; weakness EENTM: No hoarseness, No mouth pain, No mouth swelling Respiratory: no symptoms reported; No cough, No dyspnea on exertion, No short of breath Cardiovascular: no symptoms reported; No chest pain, No edema, No palpitations Gastrointestinal: no symptoms reported; No abdominal pain, No loss of appetite, No nausea, No vomiting Genitourinary: no symptoms reported; No dysuria, No frequency, No hematuria Musculoskeletal: other (left sided weakness) Skin: no symptoms reported; No rash Psychiatric/Neurological: Pre-Existing Deficit (left), Weakness Reviewed Test Results Reviewed Test Results Lab Laboratory Tests Test 01/01/19 03:00 Range/Units White Blood Count 6.8 4.3-11.0 10^3/uL Red Blood Count 4.54 4.35-5.85 10^6/uL Hemoglobin 12.6 11.5-16.0 G/DL Hematocrit 42 35-52 % Mean Corpuscular Volume 92 80-99 FL Mean Corpuscular Hemoglobin 28 25-34 PG Mean Corpuscular Hemoglobin Concent 30 L 32-36 G/DL Red Cell Distribution Width 20.8 H 10.0-14.5 % Platelet Count 131 130-400 10^3/uL Mean Platelet Volume 10.9 H 7.4-10.4 FL Neutrophils (%) (Auto) 57 42-75 % Lymphocytes (%) (Auto) 31 12-44 % Monocytes (%) (Auto) 9 0-12 % Eosinophils (%) (Auto) 3 0-10 % Basophils (%) (Auto) 0 0-10 % Neutrophils # (Auto) 3.9 1.8-7.8 X 10^3 Lymphocytes # (Auto) 2.1 1.0-4.0 X 10^3 Monocytes # (Auto) 0.6 0.0-1.0 X 10^3 Eosinophils # (Auto) 0.2 0.0-0.3 10^3/uL Basophils # (Auto) 0.0 0.0-0.1 10^3/uL Sodium Level 142 135-145 MMOL/L Potassium Level 4.3 3.6-5.0 MMOL/L Chloride Level 109 H 98-107 MMOL/L Carbon Dioxide Level 22 21-32 MMOL/L Anion Gap 11 5-14 MMOL/L Blood Urea Nitrogen 15 7-18 MG/DL Creatinine 1.43 H 0.60-1.30 MG/DL Estimat Glomerular Filtration Rate 36 BUN/Creatinine Ratio 10 Glucose Level 113 H 70-105 MG/DL Calcium Level 9.8 8.5-10.1 MG/DL Corrected Calcium 10.3 H 8.5-10.1 MG/DL Total Bilirubin 0.3 0.1-1.0 MG/DL Aspartate Amino Transf (AST/SGOT) 17 5-34 U/L Alanine Aminotransferase (ALT/SGPT) 15 0-55 U/L Alkaline Phosphatase 97 40-136 U/L Total Protein 5.7 L 6.4-8.2 GM/DL Albumin 3.4 3.2-4.5 GM/DL Triglycerides Level 116 <150 MG/DL Cholesterol Level 117 < 200 MG/DL LDL Cholesterol Direct 51 1-129 MG/DL VLDL Cholesterol 23 5-40 MG/DL HDL Cholesterol 44 40-60 MG/DL Physical Exam-(CHC) Physical Exam Vital Signs VS - Last 72 Hours, by Label 12/31/18 12/31/18 12/31/18 12/31/18 15:09 18:20 19:00 19:00 Temp 35.8 Pulse 57 51 52 52 Resp 16 16 9 B/P (MAP) 133/81 (98) 131/75 162/81 (108) Pulse Ox 97 97 97 O2 Delivery Room Air Room Air Room Air 12/31/18 12/31/18 12/31/18 12/31/18 19:15 19:20 19:30 19:45 Pulse 52 53 51 Resp 8 15 12 B/P (MAP) 151/77 (101) 151/74 (99) 151/70 (97) Pulse Ox 95 97 96 O2 Delivery Room Air Room Air Room Air Room Air 12/31/18 12/31/18 12/31/18 12/31/18 20:00 20:00 21:00 21:00 Temp 36.4 Pulse 53 56 Resp 14 15 B/P (MAP) 151/70 (97) 146/103 (117) Pulse Ox 93 93 97 O2 Delivery Room Air Room Air Room Air 12/31/18 12/31/18 12/31/18 12/31/18 21:46 22:00 23:00 23:51 Temp 37.0 Pulse 57 55 Resp 21 15 B/P (MAP) 119/81 (94) 141/51 (81) Pulse Ox 99 95 92 O2 Delivery Room Air Room Air Room Air 01/01/19 01/01/19 01/01/19 01/01/19 00:00 01:00 01:00 02:00 Pulse 48 55 55 59 Resp 14 14 14 B/P (MAP) 103/53 (70) 100/51 (67) 101/81 (88) Pulse Ox 91 94 94 O2 Delivery Room Air Room Air Room Air 01/01/19 01/01/19 01/01/19 01/01/19 03:00 03:30 04:00 05:00 Temp 36.8 Pulse 56 51 58 Resp 25 14 15 B/P (MAP) 116/86 (96) 112/41 (64) 152/62 (92) Pulse Ox 97 92 94 O2 Delivery Room Air Room Air Room Air Room Air 01/01/19 01/01/19 01/01/19 01/01/19 06:00 07:00 08:00 08:15 Pulse 54 62 67 Resp 27 18 B/P (MAP) 160/70 (100) 120/59 (79) Pulse Ox 92 94 96 O2 Delivery Room Air Room Air Room Air 01/01/19 13:00 Temp 36.8 Capillary Refill : Less Than 3 Seconds General Appearance: WD/WN, no apparent distress HEENT: PERRL/EOMI Neck: non-tender, full range of motion, other (poor shoulder shrug on left) Respiratory: chest non-tender, lungs clear, normal breath sounds, no respiratory distress Cardiovascular: normal peripheral pulses, regular rate, rhythm, no murmur Gastrointestinal: normal bowel sounds, non tender, soft, no organomegaly Back: no CVA tenderness, no vertebral tenderness Extremities: no pedal edema, no calf tenderness, normal capillary refill Neurologic/Psychiatric: gas brazer II-XII nml as tested, alert, oriented x 3, motor weakness (Left 3/5), sensory deficit (Left LE numbness) Skin: normal color, warm/dry Lymphatic: no adenopathy Assessment/Plan Assessment/Plan Admission Status: Observation (1) Cerebrovascular accident (CVA) with left hemiparesis Status: Chronic Assessment & Plan: - MRI with microinfarct of R posterior Temporal, PT/OT/Speech/IRF, on Xarelto/ASA (2) Acute on chronic renal failure Status: Acute Assessment & Plan: - Improving, will get BMP in AM Qualifiers: Qualified Codes: N17.9 - Acute kidney failure, unspecified; N18.3 - Chronic kidney disease, stage 3 (moderate) (3) Hypertension Status: Chronic Assessment & Plan: - Controlled at this time, continue home meds Qualifiers: Qualified Codes: I10 - Essential (primary) hypertension (4) Paroxysmal atrial fibrillation Status: Chronic Assessment & Plan: - Chayorelmely, Clinical Quality Measures DVT/VTE Risk/Contraindication: Risk Factor Score Per Nursin RFS Level Per Nursing on Admit: 3=High Stroke: Date of last known well: Dec 31, 2018 Time of last known well: 10:30 Symptoms onset unknown: Yes SALAS GALEANO MD Jan 01, 2019 15:21
[2019-01-02] VITALS: BP 126/66
[2019-01-02 03:20] VITALS: BP 141/66
[2019-01-02 03:50] LABS: CALCIUM 9.5 MG/DL (8.5-10.1); CREATININE SERUM 1.59 MG/DL (0.60-1.30); POTASSIUM 4.3 MMOL/L (3.6-5.0)
[2019-01-02] MEDS: GABAPENTIN 300 MG (NEURONTIN) CAP PO SCH (08:41)
[2019-01-02] MEDS: PANTOPRAZOLE 40 MG (PROTONIX) TAB PO SCH (08:41)
[2019-01-02] MEDS: RIVAROXABAN 15 MG TABLET (XARELTO) PO SCH (08:41)
[2019-01-02] MEDS: meTOprolol SUCCINATE 100 MG (TOPROL XL) TAB PO SCH (08:41)
[2019-01-02] MEDS: amLODIPine 5 MG (NORVASC) TAB PO SCH (08:41)
[2019-01-02] MEDS: ASPIRIN E.C. 325 MG (ECOTRIN) TABLET PO SCH (08:42)
[2019-01-02] MEDS: BRIMONIDINE 0.2% (ALPHAGAN) OPHTH SOLN 5 ML BTL OU SCH (08:42)
[2019-01-02] MEDS: buPROPion SR 150 MG (WELLBUTRIN SR) TAB PO SCH (08:42)
--- NOTE | 2019-01-02 08:51 | Progress Note - Cardiology ---
Cardiology SOAP Progress Note Subjective: Sitting up in recliner at the bedside. States she feels better today, but not back to her usual baseline. No c/o CP, palpitations, syncope or near syncope. Objective: I&O/Vital Signs 01/02/19 01/02/19 01/02/19 08:00 09:00 11:26 Temp 36.7 35.7 Pulse Ox 95 O2 Delivery Room Air 01/02/19 00:00 Intake Total 460 ml Output Total 775 ml Balance -315 ml Weight (Pounds): 170 Weight (Ounces): 1.6 Weight (Calculated Kilograms): [phone] Constitutional: AAO x 3, well-developed, well-nourished Respiratory: No accessory muscle use; other (good bilat air entry; a few coarse basal crackles) Cardiovascular: regular rate-rhythm, S1 and S2, systolic murmur (faint ASHOK at card base) Gastrointestional: No tender; soft; No guarding, No rebound; audible bowel sounds Extremities: No clubbing, No cyanosis Neurologic/Psychiatric: alert, oriented x 3, other (Mild to mod L-sided weakness) Skin: No rash, No ulcerations Results/Procedures: Labs Laboratory Tests 01/02/19 03:00: Sodium Level 142, Potassium Level 4.3, Chloride Level 111H, Carbon Dioxide Level 22, Anion Gap 9, Blood Urea Nitrogen 18, Creatinine 1.59H, Estimat Glomerular Filtration Rate 32, BUN/Creatinine Ratio 11, Glucose Level 108H, Calcium Level 9.5 A/P: Assessment: Ac TIA/CVA, being managed by Dr You. History of multiple CVA in the past. Hypercoagulable state workup has been negative (normal protein C, protein S and, antithrombin III; no factor V Leiden mutation; anticardiolipin antibody negative; factor II mutant was also negative). PAF, document on previousl ILR tranmissions. Pt is since on Xarelto Small PFO seen on [facility] March 2014 H/o leg claudication and peripheral arterial disease, last ALYSA was done in May 2015 and was within normal limits Hypertension, by history Hyperlipidemia, by history CYP 2C19 showed intermediate metabolizer. Mild bilateral carotid stenosis on carotid u/s of December 2017 CKD-3, followed and monitored by Dr. Travis. History of osteoarthritis, rheumatoid arthritis, and fibromyalgia. History of depression. History of elevated LPa Plan: * Continue Xarelto and low-dose ASA, if no evidence of bleed (Dr You to make that determination) * Echo pending * Monitor labs Physician Assessment Physician Assessment Dr You d/c'd the patient before I could see her today Clinical Quality Measures Stroke: Date of last known well: Dec 31, 2018 Time of last known well: 10:30 Symptoms onset unknown: Yes [facility] Jan 02, 2019 08:50 ZACH BENSON MD FACP FAC CCDS Jan 02, 2019 19:52
--- NOTE | 2019-01-02 09:19 | Physical Therapy Daily Note ---
PT Daily Note-Current Subjective Patient agrees to PT. She reports she is feeling better on this date. Mental Status Patient Orientation: Normal For Age Transfers SCALE: Activities may be completed with or without assistive devices. 5-Npyubjrkkx-asumaza completes the activity by him/herself with no assistance from a helper. 5-Set-up or Clean-up Assistance-helper sets up or cleans up; patient completes activity. [place] assists only prior to or following the activity. 4-Supervision or Touching Assistance-helper provides verbal cues and/or touching/steadying and/or contact guard assistance as patient completes activity. Assistance may be provided throughout the activity or intermittently. 3-Partial/Moderate Assistance-helper does LESS THAN HALF the effort. [place] lifts, holds or supports trunk or limbs, but provides less than half the effort. 2-Substantial/Maximal Assistance-helper does MORE THAN HALF the effort. [place] lifts or holds trunk or limbs and provides more than half the effort. 2-Mdkghkfvg-pqsink does ALL the effort. Patient does none of the effort to complete the activity. Or, the assistance of 2 or more helpers is required for the patient to complete the activity. If activity was not attempted, code reason: 7-Patient Refused. 9-Not Applicable-not attempted and the patient did not perform the activity before the current illness, exacerbation or injury. 10-Not Attempted due to Environmental Limitations-(lack of equipment, weather restraints, etc.). 88-Not Attempted due to Medical Conditions or Safety Concerns. Roll Left to Right (QC): 5 Sit to Lying (QC): 5 Sit to Stand (QC): 5 Chair/Cjy-sf-Obhid Xfer(QC): 5 Bed to/from Chair: 5 Gait Training Does the Patient Walk?: Yes Distance: 300' Walk 10 feet (QC): 5 Walk 50 ft with 2 Turns(QC): 5 Walk 150 ft (QC): 5 Gait Assistive Device: FWW much improved stance and jh with FWW use Exercises Supine Ex: Ankle pumps, Quad Set, Heel Slides, Straight leg raise Supine Reps: 0 Seated Therapy Exercises: Ankle pumps, Long arc quads, Hip flexion Seated Reps: 15 (2 sets) Assessment Patient much improved on this date and states she is ready to go home per her report. PT to increase activity as tolerated by patient. PT Deicer Finisher Goals Deicer Finisher Goals PT Deicer Finisher Goals Time Frame: Jan 18, 2019 Sit to Lying (QC): 5 Lying-Sitting on Side/Bed(QC): 5 Sit to Stand (QC): 5 Roll Left to Right (QC): 5 Chair/Hei-nm-Wjmob Xfer(QC): 5 Does the Patient Walk: Yes Distance: 100' Walk 10 feet (QC): 5 Walk 10ft-Uneven Surface(QC): 5 Walk 50ft with 2 Turns (QC): 5 Gait Assistive Device: FWW PT Plan Treatment/Plan Treatment Plan: Continue Plan of Care Treatment Plan: Bed Mobility, Education, Functional Activity Sarah, Functional Strength, Gait, Safety, Therapeutic Exercise, Transfers Treatment Duration: Jan 18, 2019 Frequency: 6 times per week Estimated Hrs Per Day: .25 hour per day Patient and/or Family Agrees t: Yes Time/GCodes Time In: 800 Time Out: 823 Total Billed Treatment Time: 23 Total Billed Treatment 1 visit EX 10 min GT 13 min FELICITA SINGH PT Jan 02, 2019 09:19
--- NOTE | 2019-01-02 11:00 | NUR ---
Initial visit: The pt smiled and said she was glad when I told her I remembered her from previous visits. She said it was encouraging to be remembered and thought of. The pt is Advent and demonstrates that her cleve is of importance to her. Physical Therapy present this visit.
--- NOTE | 2019-01-02 11:01 | Discharge Summary ---
Diagnosis/Chief Complaint Date of Admission Dec 31, 2018 at 17:30 Date of Discharge Discharge Diagnosis Problems/Diagnosis: (1) Cerebrovascular accident (CVA) with left hemiparesis Assessment & Plan: - MRI with microinfarct of R posterior Temporal, PT/OT/Speech/IRF, on Xarelto/ASA Status: Chronic (2) Acute on chronic renal failure Assessment & Plan: - Improving, will get BMP in AM Qualifiers: Qualified Codes: N17.9 - Acute kidney failure, unspecified; N18.3 - Chronic kidney disease, stage 3 (moderate) Status: Acute (3) Hypertension Assessment & Plan: - Controlled at this time, continue home meds Qualifiers: Qualified Codes: I10 - Essential (primary) hypertension Status: Chronic (4) Paroxysmal atrial fibrillation Assessment & Plan: - Xarelto, SR Status: Chronic Chief Complaint/HPI Chief Complaint/HPI 73 yo F that presented to ER with increasing confusion and L facial droop. Patient was with her grand daughter and they stated that last known well time was yesterday evening. Patient has significant h/o multiple CVAs and has had hypercoagulable workup that has been negative. Patient states that the weakness seems to be improved but she still feels some difference from her baseline. She has previous left sided weakness from a previous stroke in Apr of this year. At baseline she is able to ambulate with walker by self and able to complete most of her ADLs by self. Currently she needs assistance with ambulation. Discharge Summary-Simple/Stand Consultations Discharge Physical Examination Allergies: Coded Allergies: fentanyl (Verified Adverse Reaction, Mild, 10/20/18) MAKES HER HALLUCINATE Vitals & I&Os Vital Sign - Last 12Hours Date Time Temp Pulse Resp B/P (MAP) Pulse Ox O2 Delivery O2 Flow Rate FiO2 01/02/19 09:00 95 Room Air 01/02/19 08:00 36.7 01/02/19 06:54 56 01/02/19 03:20 14 141/66 (91) Intake and Output 01/02/19 00:00 Intake Total 460 ml Output Total 775 ml Balance -315 ml Hospital Course See final discharge diagnosis. Discharge Instructions to patient/family Please see electronic discharge instructions given to patient. Discharge Medications Reviewed and agree with Discharge Medication list on patient's Discharge Instruction sheet Clinical Quality Measures DVT/VTE Risk/Contraindication: Risk Factor Score Per Nursin RFS Level Per Nursing on Admit: 3=High Stroke: Date of last known well: Dec 31, 2018 Time of last known well: 10:30 Symptoms onset unknown: Yes SALAS GALEANO MD Jan 02, 2019 11:01
[2019-01-02] MEDS ORDERED: RIVA15TA2 PO (11:04)
[2019-01-02] MEDS ORDERED: ATOR80TA76 PO (11:04)
--- NOTE | 2019-01-02 11:08 | Discharge Instructions ---
Discharge [facility] Reconcile Patient Problems Problems Reviewed?: Yes Discharge Medications New, Converted or Re-Newed RX: Other New Medications: Atorvastatin Calcium (Atorvastatin Calcium) 80 Mg Tablet 80 MG PO DAILY for 30 Days, TAB Rivaroxaban (Xarelto Tablet) 15 Mg Tablet 15 MG PO DAILY for 30 Days, TAB Continued Medications: Acetaminophen (Tylenol) 325 Mg Tablet 650 MG PO Q4H PRN for PAIN-MILD, TAB Amlodipine Besylate (Amlodipine Besylate) 5 Mg Tablet 5 MG PO DAILY, TAB Aspirin (Aspirin EC) 81 Mg Tablet.dr 81 MG PO DAILY, TAB Brimonidine Tartrate (Brimonidine Tartrate) 5 Ml Btl 1 DROP OU BID, EA Bupropion HCl (Bupropion HCl) 75 Mg Tablet 150 MG PO BID, TAB TAKES 2 (75MG) TABLETS Diclofenac Sodium (Diclofenac Sodium) 100 Gm Gel..gram. 2 GM TOP QID PRN for JOINT PAIN, EA Gabapentin (Gabapentin) 300 Mg Capsule 300 MG PO BID, CAP L.acidoph & Paracasei,B.lactis (Probiotic) 1 Each Capsule 2 CAP PO 1200, CAP Latanoprost (Latanoprost) 2.5 Ml Drops 1 DROP OU HS, EA Magnesium Oxide (Magnesium) 400 Mg Tablet 400 MG PO BID, TAB Metoprolol Succinate (Metoprolol Succinate) 100 Mg Tab.er.24h 100 MG PO DAILY, TAB Pantoprazole Sodium (Pantoprazole Sodium) 40 Mg Tablet.dr 40 MG PO DAILY, TAB Discontinued Medications: Atorvastatin Calcium (Atorvastatin Calcium) 20 Mg Tablet 20 MG PO HS, TAB Ferrous Sulfate (Iron) 325 Mg Tablet 325 MG PO 1200, TAB Pentoxifylline (Pentoxifylline) 400 Mg Tablet.er 400 MG PO DAILY, TAB Rivaroxaban (Xarelto) 20 Mg Tablet 20 MG PO 1800, TAB Activity & Diet Discharge Diet: Cardiac Diet Activity as Tolerated: Yes Copy Copies To 1: KENZIE COOPER MD, HOLLY R MD Jan 02, 2019 11:08
--- NOTE | 2019-01-02 13:15 | NUR ---
Pt given discharge instructions at this time. [facility] notified of prescribed medications. IV removed from pt at this time. Kaylan DUKE, assisted pt with getting dressed and pt transferred to personal vehicle via wheelchair by staff. Personal belongings with pt at time of dismissal.
--- NOTE | 2019-01-02 13:38 | Occupational Ther Daily Note ---
OT Current Status-Daily Note Subjective Pt seen in recliner chair, agreeable to OT tx session, no pain stated. Mental Status/Objective Patient Orientation: Normal For Age Attachments: Telemetry ADL-Treatment Therapy Code Descriptions/Definitions Functional Spink Measure: 0=Not Assessed/NA 4=Minimal Assistance 1=Total Assistance 5=Supervision or Setup 2=Maximal Assistance 6=Modified Spink 3=Moderate Assistance 7=Complete IndependenceSCALE: Activities may be completed with or without assistive devices. 9-Jmzgjlthpx-ssxqgku completes the activity by him/herself with no assistance from a helper. 5-Set-up or Clean-up Assistance-helper sets up or cleans up; patient completes activity. [place] assists only prior to or following the activity. 4-Supervision or Touching Assistance-helper provides verbal cues and/or touching/steadying and/or contact guard assistance as patient completes activity. Assistance may be provided throughout the activity or intermittently. 3-Partial/Moderate Assistance-helper does LESS THAN HALF the effort. [place] lifts, holds or supports trunk or limbs, but provides less than half the effort. 2-Substantial/Maximal Assistance-helper does MORE THAN HALF the effort. [place] lifts or holds trunk or limbs and provides more than half the effort. 1-Zjggwrlaw-nyults does ALL the effort. Patient does none of the effort to complete the activity. Or, the assistance of 2 or more helpers is required for the patient to complete the activity. If activity was not attempted, code reason: 7-Patient Refused. 9-Not Applicable-not attempted and the patient did not perform the activity before the current illness, exacerbation or injury. 10-Not Attempted due to Environmental Limitations-(lack of equipment, weather restraints, etc.). 88-Not Attempted due to Medical Conditions or Safety Concerns. Eating (QC): 6 Upper Body Dressing (QC): 4 (Pt requires intermittent assist for gown donning due to snaps and tie in back.) Other Treatment Pt seen in recliner chair, pt states she is frustrated with the telemetry placement. Pt doffs gown from LUE with intermittent assist for untying gown. Pt's telemetry repositioned into pocket, pt dons gown with increased time back onto LUE. pt requires assist tying in back. Pt educated on and demonstrates-back UE theraband exercises with yellow modified theraband. Pt completes 1 set of 5 horizontal abductor exercises with BUE with mod cues for placement. Pt states L arm is not strong enough to horizontally abduct at same time as RUE. Pt educated on abilities to keep RUE stationary and complete LUE exercises only, then stabilize with LUE and complete RUE active exercises. Pt demonstrates back. Pt left in recliner chair with call light in reach, all needs met. Education OT Patient Education: Correct positioning, Disease process, Exercise program, Home exercise program, Purpose of tx/functional activities, Safety issues Teaching Recipient: Patient Teaching Methods: Demonstration, Handout, Discussion Response to Teaching: Verbalize Understanding, Return Demonstration, Reinforcement Needed OT Short Term Goals Short Term Goals Eating(FIM): 6 (met) Grooming(FIM): 6 Upper Body Dressing(FIM): 6 Lower Body Dressing(FIM): 3 Toileting(FIM): 4 1=Demonstrate adherence to instructed precautions during ADL tasks. 2=Patient will verbalize/demonstrate understanding of assistive devices/modifications for ADL. 3=Patient will improve strength/tolerance for activity to enable patient to perform ADL's. OT Retirement Goals Tenterer Goals Eating (QC): 6 (met) Oral Hygiene (QC): 6 Shower/Bathe Self (QC): 4 Upper Body Dressing (QC): 6 Lower Body Dressing (QC): 4 On/Off Footwear (QC): 6 Toileting Hygiene (QC): 5 Toilet/Commode Transfer (QC): 5 Additional Goals: 1-Demonstrate ADL Tasks, 2-Verbalize Understanding, 3- ImproveStrength/Sarah 1=Demonstrate adherence to instructed precautions during ADL tasks. 2=Patient will verbalize/demonstrate understanding of assistive devices/modifications for ADL. 3=Patient will improve strength/tolerance for activity to enable patient to perform ADL's. OT Education/Plan Problem List/Assessment Assessment: Decreased Activ Tolerance, Decreased UE Strength, Impaired Coordination, Impaired Funct Balance, Impaired I ADL's, Impaired Self-Care Skills, Restricted Funct UE ROM Discharge Recommendations Plan/Recommendations: Continue POC Treatment Plan/Plan of Care Treatment,Training & Education: Yes Patient would benefit from OT for education, treatment and training to promote independence in ADL's, mobility, safety and/or upper extremity function for ADL's. Plan of Care: ADL Retraining, Caregiver Training, Functional Mobility, UE Funct Exercise/Act, UE Neuromus Re-Ed/Coord Treatment Duration: Jan 08, 2019 Frequency: 5 times per week Estimated Hrs Per Day: .25 hour per day Agreement: Yes Rehab Potential: Guarded Time/GCodes Start Time: 10:05 Stop Time: 10:15 Total Time Billed (hr/min): 10 Billed Treatment Time 1 EX (10) HUE EAGLE OTR Jan 02, 2019 13:38
== END 2019-01-02 13:15 | disposition home or self-care (01) ==
LOC: EDUNIT# 15:08 → ER 15:09 → ICU 17:30
PROVIDERS: ADMIT Internal Medicine; ATTEND Internal Medicine
DX: I69.351 Hemiplegia and hemiparesis following cerebral infarction affecting right dominant side (principal); I48.91 Unspecified atrial fibrillation; I11.9 Hypertensive heart disease without heart failure; I73.9 Peripheral vascular disease, unspecified; E78.00 Pure hypercholesterolemia, unspecified; K21.9 Gastro-esophageal reflux disease without esophagitis; M19.90 Unspecified osteoarthritis, unspecified site; F41.8 Other specified anxiety disorders; Z88.8 Allergy status to other drugs, medicaments and biological substances; Z79.899 Other long term (current) drug therapy; Z87.891 Personal history of nicotine dependence; Z90.89 Acquired absence of other organs; Z82.49 Family history of ischemic heart disease and other diseases of the circulatory system; Z80.3 Family history of malignant neoplasm of breast
CPT/HCPCS: 36415; 51702; 70450; 70551; 71045; 80048; 80053; 80061; 81000; 84484; 85025; 85379; 85610; 85730; 93005; 93041; 93306; 94664

== ENCOUNTER 2019-02-21 13:47 | Outpatient (RCR) | payer MEDICARE, OTHER ==
[~2019-02-21 13:47] MED LIST changes: +ATOR80TA76 PO; +DICL100G31 TOP; +FERR-84 PO; +L.AC1CAP6 PO; +RIVA15TA2 PO; +RIVA20TA PO
== END 2019-02-27 | disposition home or self-care (01) ==
PROVIDERS: ATTEND Internal Medicine
DX: I69.354 Hemiplegia and hemiparesis following cerebral infarction affecting left non-dominant side (principal)

== ENCOUNTER 2019-03-20 13:23 | Outpatient (RCR) | payer MEDICARE ==
[2019-03-23] MEDS ORDERED: BUPR300T51 PO (11:45)
[2019-03-23] MEDS ORDERED: RIVA15TA PO (11:45)
[2019-03-23] MEDS ORDERED: ATOR80TA76 PO (11:45)
== END 2019-03-22 15:02 | disposition home or self-care (01) ==
PROVIDERS: ATTEND Internal Medicine
DX: I63.9 Cerebral infarction, unspecified (principal); G81.90 Hemiplegia, unspecified affecting unspecified side; H26.9 Unspecified cataract; H40.9 Unspecified glaucoma; M81.0 Age-related osteoporosis without current pathological fracture; F32.9 Major depressive disorder, single episode, unspecified; M19.90 Unspecified osteoarthritis, unspecified site

== ENCOUNTER 2019-03-22 21:18 | Observation (INO) | payer MEDICARE ==
[~2019-03-22] VITALS: Ht 162.6 cm; Wt 71.4 kg
[~2019-03-22 21:18] MED LIST changes: -TRAM50TA2 PO; +TRM50T PO
[2019-03-22] MEDS ORDERED: NS IV 500 ML 500 ML IV ONE (21:29)
[2019-03-22] MEDS ORDERED: fentaNYL INJECTION 100 MCG/2 ML AMP IVP ONE (21:30)
--- NOTE | 2019-03-22 21:34 | ED Fall/Injury ---
General Stated Complaint: FALL, POS L CLAVICLE FX Source: patient, EMS Exam Limitations: no limitations History of Present Illness Date Seen by Provider: Mar 22, 2019 Time Seen by Provider: 21:23 Initial Comments Patient presents ER by private conveyance chief complaint of a fall. She says she woke up on the floor and does not know how long she was out. She then called her daughter who called the ambulance. She has a history of left-sided stroke with left-sided residual deficits. She has a large hematoma on the left side of her forehead. She has pain and deformity to her left clavicle. She has normal complement of strength in her bilateral lower extremities. She denies dysuria. She has had some runny nose lately but no fevers or chills nausea vomiting diarrhea or abdominal pain. No chest pain shortness of breath or cough. Allergies and Home Medications Allergies Coded Allergies: donepezil (Verified Allergy, Unknown, disoriented, stroke like symptoms, 03/23/19) fentanyl (Verified Adverse Reaction, Mild, 03/23/19) MAKES HER HALLUCINATE Home Medications Acetaminophen 325 Mg Tablet, 650 MG PO Q4H PRN for PAIN-MILD, (Reported) Amlodipine Besylate 5 Mg Tablet, 5 MG PO DAILY, (Reported) Aspirin 81 Mg Tablet., 81 MG PO DAILY, (Reported) Atorvastatin Calcium 80 Mg Tablet, 80 MG PO DAILY Prescribed by: SALAS GALEANO on 01/02/19 1104 Brimonidine Tartrate 5 Ml Btl, 1 DROP OU BID, (Reported) Bupropion HCl 75 Mg Tablet, 150 MG PO BID, (Reported) TAKES 2 (75MG) TABLETS Diclofenac Sodium 100 Gm Gel..gram., 2 GM TOP QID PRN for JOINT PAIN, (Reported) Gabapentin 300 Mg Capsule, 300 MG PO BID, (Reported) L.acidoph & Paracasei,B.lactis 1 Each Capsule, 2 CAP PO 1200, (Reported) Latanoprost 2.5 Ml Drops, 1 DROP OU HS, (Reported) Magnesium Oxide 400 Mg Tablet, 400 MG PO BID, (Reported) Metoprolol Succinate 100 Mg Tab.er.24h, 100 MG PO DAILY, (Reported) Pantoprazole Sodium 40 Mg Tablet., 40 MG PO DAILY, (Reported) Rivaroxaban 15 Mg Tablet, 15 MG PO DAILY Prescribed by: SALAS GALAENO on 01/02/19 1104 Patient Home Medication List Home Medication List Reviewed: Yes Review of Systems Review of Systems Constitutional: No chills, No diaphoresis Eyes: Denies Blindness, Denies Blurred Vision Ears, Nose, Mouth, Throat: denies ear pain, denies ear discharge Respiratory: No cough, No dyspnea on exertion Cardiovascular: No chest pain, No edema Gastrointestinal: No abdominal pain, No diarrhea All Other Systems Reviewed Negative Unless Noted: Yes Past Wdxotom-Itqzpc-Udkfdi Hx Patient Social History Alcohol Use: Denies Use Recreational Drug Use: No Smoking Status: Former Smoker Type Used: Cigarettes Former Smoker, Quit: Dec 19, 1986 2nd Hand Smoke Exposure: No Recent Foreign Travel: No Contact w/Someone Who Travel: No Recent Hopitalizations: No Immunizations Up To Date Tetanus Booster (TDap): Unknown PED Vaccines UTD: Yes Date of Pneumonia Vaccine: Nov 19, 2013 Date of Influenza Vaccine: Nov 19, 2017 Seasonal Allergies Seasonal Allergies: Yes Past Medical History Surgeries: Yes (LOOP RECORDER; JAW SURGERY; HIATAL HERNIA REPAIR X 2) Abdominal, Appendectomy, Eye Surgery, Tonsillectomy Respiratory: No Currently Using CPAP: No Currently Using BIPAP: No Cardiac: Yes Atrial Fibrillation, Heart Murmur, High Cholesterol, Hypertension, Peripheral Vascular, Valvular Heart Disease Neurological: Yes (LEFT SIDE WEAKNESS) Stroke, TIA 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 Disorders: No Female 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 Disorders: Denies 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 Sexually Transmitted Disease: No HIV/AIDS: No Genitourinary: Yes (BLADDER CONTROL PROBLEMS) Gastrointestinal: Yes (HIATAL HERNIA SURGERY X 2) Gastroesophageal Reflux, Hiatal Hernia Musculoskeletal: Yes Arthritis Endocrine: No HEENT: Yes Cataract, Glaucoma Hearing Impairment: Denies Cancer: No Did You Recieve Any Treatments: No Psychosocial: Yes Anxiety, Depression Integumentary: No Blood Disorders: Yes (ANEMIA) Adverse Reaction/Blood Tranf: No Family Medical History FH: CVA (cerebrovascular accident) G8 BROTHER G8 SISTER FH: breast cancer 19 MOTHER FH: cancer 19 FATHER Hypertension 19 MOTHER Physical Exam Vital Signs Capillary Refill : Height, Weight, BMI Height: 5'4.00" Weight: 170lbs. 1.6oz. [id number]; 31.05 BMI Method:Stated General Appearance: WD/WN, no apparent distress HEENT: PERRL/EOMI, normal ENT inspection, TMs normal, pharynx normal, other (3 cm hematoma on the frontal scalp) Neck: non-tender, full range of motion, supple, normal inspection Cardiovascular: normal peripheral pulses, regular rate, rhythm Respiratory: chest non-tender, lungs clear, normal breath sounds, no respiratory distress, no accessory muscle use Peripheral Pulses: 2+ Dorsalis Pedis (R), 2+ Left Dors-Pedis (L), 2+ Radial Pulses (R), 2+ Radial Pulses (L) Gastrointestinal: normal bowel sounds, non tender, soft Extremities: normal range of motion, normal capillary refill, other (Deformity of the left clavicle with tenderness to palpation and limited range of motion secondary to pain) Neurologic/Psychiatric: alert, normal mood/affect, oriented x 3 Skin: normal color, warm/dry Progress/Results/Core Measures Results/Orders Lab Results Laboratory Tests Test 03/22/19 21:30 Range/Units White Blood Count 8.3 4.3-11.0 10^3/uL Red Blood Count 4.59 4.35-5.85 10^6/uL Hemoglobin 14.0 11.5-16.0 G/DL Hematocrit 45 35-52 % Mean Corpuscular Volume 97 80-99 FL Mean Corpuscular Hemoglobin 31 25-34 PG Mean Corpuscular Hemoglobin Concent 31 L 32-36 G/DL Red Cell Distribution Width 14.4 10.0-14.5 % Platelet Count 129 L 130-400 10^3/uL Mean Platelet Volume 10.5 H 7.4-10.4 FL Neutrophils (%) (Auto) 71 42-75 % Lymphocytes (%) (Auto) 19 12-44 % Monocytes (%) (Auto) 8 0-12 % Eosinophils (%) (Auto) 1 0-10 % Basophils (%) (Auto) 1 0-10 % Neutrophils # (Auto) 5.9 1.8-7.8 X 10^3 Lymphocytes # (Auto) 1.6 1.0-4.0 X 10^3 Monocytes # (Auto) 0.7 0.0-1.0 X 10^3 Eosinophils # (Auto) 0.1 0.0-0.3 10^3/uL Basophils # (Auto) 0.0 0.0-0.1 10^3/uL Sodium Level 143 135-145 MMOL/L Potassium Level 4.4 3.6-5.0 MMOL/L Chloride Level 112 H 98-107 MMOL/L Carbon Dioxide Level 18 L 21-32 MMOL/L Anion Gap 13 5-14 MMOL/L Blood Urea Nitrogen 20 H 7-18 MG/DL Creatinine 1.74 H 0.60-1.30 MG/DL Estimat Glomerular Filtration Rate 29 BUN/Creatinine Ratio 11 Glucose Level 107 H 70-105 MG/DL Calcium Level 10.7 H 8.5-10.1 MG/DL Corrected Calcium 10.3 H 8.5-10.1 MG/DL Total Bilirubin 0.6 0.1-1.0 MG/DL Aspartate Amino Transf (AST/SGOT) 27 5-34 U/L Alanine Aminotransferase (ALT/SGPT) 25 0-55 U/L Alkaline Phosphatase 127 40-136 U/L Total Creatine Kinase 143 29-168 U/L Troponin I 0.036 H <0.028 NG/ML B-Type Natriuretic Peptide 93.2 <100.0 PG/ML Total Protein 7.3 6.4-8.2 GM/DL Albumin 4.5 3.2-4.5 GM/DL My Orders Orders - KANDY OLIVEIRA Fentanyl Injection (Sublimaze Injection (03/22/19 21:30) Ed Iv/Invasive Line Start (03/22/19 21:29) Ns Iv 500 Ml (Sodium Chloride 0.9%) (03/22/19 21:29) Continuous Ekg Monitoring (03/22/19 21:29) Ekg Tracing (03/22/19 21:29) Troponin I (03/22/19 21:29) Shoulder, Left, 3 Views (03/22/19 21:29) Clavicle, Left (03/22/19 21:29) Ct Head/Cervical Spine Wo (03/22/19 21:29) Cbc With Automated Diff (03/22/19 21:29) Comprehensive Metabolic Panel (03/22/19 21:29) Creatine Kinase (03/22/19 21:29) BNP (03/22/19 21:29) Hydrocodone/Apap 5/325 Tablet (Lortab 5 (03/22/19 22:45) Ua Culture If Indicated (03/22/19 22:45) Aspirin Chewable Tablet (Baby Aspirin Ch (03/22/19 23:00) Medications Given in ED Current Medications Medications Dose Ordered Sig/Ondina Route Start Time Stop Time Status Last Admin Dose Admin Acetaminophen/ Hydrocodone Bitart 1 tab ONCE ONCE PO 03/22/19 22:45 03/22/19 22:46 DC 03/22/19 22:46 1 TAB Aspirin 324 mg ONCE ONCE PO 03/22/19 23:00 03/22/19 23:01 DC 03/22/19 23:44 324 MG Fentanyl Citrate 50 mcg ONCE ONCE IVP 03/22/19 21:30 03/22/19 21:33 DC 03/22/19 21:45 50 MCG Sodium Chloride 500 ml @ 0 mls/hr Q0M ONCE IV 03/22/19 21:29 03/22/19 21:33 DC 03/22/19 21:45 999 MLS/HR Vital Signs/I&O 03/23/19 00:00 Intake Total 500 ml Balance 500 ml Diagnostic Imaging Diagonstic Imaging: Xray Plain Films/CT/US/NM/MRI: chest Comments Closed midshaft left clavicle fracture [facility] [place] NAME: MEIRDANIELA MED REC#: [id number] PT STATUS: REG ER : 1945 PHYSICIAN: KANDY OLIVEIRA MD ADMIT DATE: 03/22/19/ER Signed Date of Exam:03/22/19 SHOULDER, LEFT, 3 VIEWS INDICATION: Injury to left shoulder. EXAMINATION: AP, oblique and lateral views of the left shoulder were obtained at 10:10 p.m. FINDINGS: There is a comminuted fracture of the mid to distal shaft of the left clavicle. The humeral head and neck appear intact. There is no dislocation. IMPRESSION: Acute left clavicle fracture, as described above. Dictated by: Dictated on workstation # [id number] Dict: 03/22/19 2325 Trans: 03/23/19 0001 [facility] [id number] Interpreted by: ERNESTO LEDEZMA MD Electronically signed by: ERNESTO LEDEZMA MD 03/23/19 0001 Reviewed: Reviewed by Me Diagonstic Imaging: CT Plain Films/CT/US/NM/MRI: c-spine, head Comments NAME: DANIELA WORLEY MED REC#: [id number] PT STATUS: REG ER : 1945 PHYSICIAN: KANDY OLIVEIRA MD ADMIT DATE: 03/22/19/ER Draft Date of Exam:03/22/19 CT HEAD/CERVICAL SPINE WO PROCEDURE: CT head and CT cervical spine without contrast. TECHNIQUE: Multiple contiguous axial images were obtained through the brain and cervical spine without the use of intravenous contrast. Sagittal and coronal reformations through the cervical spine were then performed. Auto Exposure Controls were utilized during the CT exam to meet ALARA standards for radiation dose reduction. INDICATION: Head and neck injury. COMPARISON: 12/31/2018 .CT head: Stable areas of encephalomalacia are seen in the superior parietal lobe, bilaterally. Age-related cerebral volume loss and microvascular changes are present. There is no focus of acute ischemia or hemorrhage. There is no midline shift or mass effect. No skull fracture is seen. Mastoids and paranasal sinuses are clear. IMPRESSION: No acute intracranial abnormality. CT cervical spine: Alignment is normal. There is no subluxation or fracture. Degenerative changes are present throughout. There is no mass. Central canal is widely patent IMPRESSION: No traumatic malalignment or fracture. Dictated on workstation # [id number] Dict: 03/22/19 2210 Trans: 03/22/19 2224 [facility] [id number] Interpreted by: ARNALDO BELTRAN Electronically signed by: Reviewed: Reviewed by Me Departure Communication (Admissions) Time/Spoke to Admitting Phy: 23:30 Discussed the case with Dr. You and she agrees to observe the patient with plan for echo and stress test in the morning. Time/Spoke to Consulting Phy: 23:15 Discussed case lab imaging findings with Dr. Fields, cardiology and he agrees with holding onto the patient and doing a stress test in the morning. He would like an echocardiogram in the morning as well. Impression Primary Impression: Fall Qualified Codes: W19.XXXA - Unspecified fall, initial encounter Additional Impressions: Closed left clavicular fracture Qualified Codes: S42.022A - Displaced fracture of shaft of left clavicle, initial encounter for closed fracture Elevated troponin Anticoagulation adequate History of atrial fibrillation Disposition: ADMITTED INPATIENT Condition: Stable Admissions Decision to Admit Reason: Admit from ER (General) Decision to Admit/Date: Mar 22, 2019 Time/Decision to Admit Time: 23:15 Departure-Patient Inst. Referrals: JUHI LACY MD (PCP) Primary Care Physician [facility] (Family) Primary Care Physician KANDY OLIVEIRA Mar 22, 2019 21:34
[2019-03-22 21:40] LABS: BASOPHILS % (AUTO) 1 % (0-10); EOSINOPHILS # (AUTO) 0.1 10^3/uL (0.0-0.3); EOSINOPHILS % (AUTO) 1 % (0-10); HEMATOCRIT 45 % (35-52); LYMPHOCYTES # (AUTO) 1.6 X 10^3 (1.0-4.0); LYMPHOCYTES % (AUTO) 19 % (12-44); MEAN CORPUSCULAR HEMOGLOBIN 31 PG (25-34); MEAN CORPUSCULAR HGB CONC 31 G/DL (32-36); MEAN CORPUSCULAR VOLUME 97 FL (80-99); MEAN PLATELET VOLUME 10.5 FL (7.4-10.4); MONOCYTES # (AUTO) 0.7 X 10^3 (0.0-1.0); MONOCYTES % (AUTO) 8 % (0-12); NEUTROPHILS # (AUTO) 5.9 X 10^3 (1.8-7.8); NEUTROPHILS % (AUTO) 71 % (42-75); PLATELET COUNT 129 10^3/uL (130-400); RED CELL DISTRIBUTION WIDTH 14.4 % (10.0-14.5); WHITE BLOOD COUNT 8.3 10^3/uL (4.3-11.0)
[2019-03-22 22:00] LABS: ALBUMIN 4.5 GM/DL (3.2-4.5); BILIRUBIN,TOTAL 0.6 MG/DL (0.1-1.0); CALCIUM 10.7 MG/DL (8.5-10.1); CREATININE SERUM 1.74 MG/DL (0.60-1.30); POTASSIUM 4.4 MMOL/L (3.6-5.0); TOTAL PROTEIN 7.3 GM/DL (6.4-8.2)
--- NOTE | 2019-03-22 22:25 | Diagnostic Imaging Report ---
PROCEDURE: CT head and CT cervical spine without contrast. TECHNIQUE: Multiple contiguous axial images were obtained through the brain and cervical spine without the use of intravenous contrast. Sagittal and coronal reformations through the cervical spine were then performed. Auto Exposure Controls were utilized during the CT exam to meet ALARA standards for radiation dose reduction. INDICATION: Head and neck injury. COMPARISON: 12/31/2018 .CT head: Stable areas of encephalomalacia are seen in the superior parietal lobe, bilaterally. Age-related cerebral volume loss and microvascular changes are present. There is no focus of acute ischemia or hemorrhage. There is no midline shift or mass effect. No skull fracture is seen. Mastoids and paranasal sinuses are clear. IMPRESSION: No acute intracranial abnormality. CT cervical spine: Alignment is normal. There is no subluxation or fracture. Degenerative changes are present throughout. There is no mass. Central canal is widely patent IMPRESSION: No traumatic malalignment or fracture. Dictated by: Dictated on workstation # [id number]
--- NOTE | 2019-03-22 22:28 | NUR ---
C-collar removed by Rivka Cabrera at this time.
[2019-03-22] MEDS ORDERED: HYDROcodone/APAP 5 MG/325 MG (LORTAB) TAB PO ONE (22:45)
[2019-03-22] MEDS ORDERED: ASPIRIN 81 MG CHEW (CHILDREN'S ASA) PO ONE (23:00)
--- NOTE | 2019-03-22 23:41 | Diagnostic Imaging Report ---
INDICATION: Injury to left shoulder. EXAMINATION: AP, oblique and lateral views of the left shoulder were obtained at 10:10 p.m. FINDINGS: There is a comminuted fracture of the mid to distal shaft of the left clavicle. The humeral head and neck appear intact. There is no dislocation. IMPRESSION: Acute left clavicle fracture, as described above. Dictated by: Dictated on workstation # [id number]
--- NOTE | 2019-03-23 01:10 | NUR ---
DANIELA WORLEY admitted to room 409-1, with an admitting diagnosis of elevated troponin, fall, left clavicle fracture, on anticoagulants, on 03/22/19 from ED via stretcher, accompanied by staff and family.DANIELA WORLEY introduced to surroundings, call light, bed controls, phone, TV, temperature control, lights, meal times, smoking policy, visitor policy, side rail policy, bathrooms and showers. Patient Rights given to patient in the handbook. DANIELA WORLEY verbalizes understanding that [facility] is not responsible for the loss or damage to any personal effects or valuables that are kept in the patients posession during their hospitalization.
[2019-03-23 01:27] VITALS: BP 152/87
[2019-03-23] MEDS ORDERED: 1/2 NS IV SOLUTION 1,000 ML IV ONE (02:17)
[2019-03-23] MEDS ORDERED: HYDROcodone/APAP 5 MG/325 MG (LORTAB) TAB ONE (02:41)
[2019-03-23] MEDS: 1/2 NS IV SOLUTION 1,000 ML IV SCH (02:49)
[2019-03-23] MEDS ORDERED: ACETAMINOPHEN 325 MG TABLET PO PRN ×2 (03:00→21:45)
[2019-03-23] MEDS ORDERED: PROMETHAZINE INJ 25 MG/ML (PHENERGAN) AMP IV PRN (03:00)
[2019-03-23] MEDS ORDERED: HYDROmorphone 2 MG/ML VIAL (DILAUDID) IV PRN (03:00)
[2019-03-23 03:09] VITALS: BP 146/82
[2019-03-23 04:27] LABS: BASOPHILS % (AUTO) 0 % (0-10); EOSINOPHILS # (AUTO) 0.1 10^3/uL (0.0-0.3); EOSINOPHILS % (AUTO) 1 % (0-10); HEMATOCRIT 39 % (35-52); HEMOGLOBIN 12.1 G/DL (11.5-16.0); LYMPHOCYTES % (AUTO) 28 % (12-44); MEAN CORPUSCULAR HEMOGLOBIN 31 PG (25-34); MEAN CORPUSCULAR HGB CONC 31 G/DL (32-36); MEAN CORPUSCULAR VOLUME 98 FL (80-99); MEAN PLATELET VOLUME 10.4 FL (7.4-10.4); MONOCYTES # (AUTO) 0.7 X 10^3 (0.0-1.0); MONOCYTES % (AUTO) 9 % (0-12); NEUTROPHILS # (AUTO) 4.3 X 10^3 (1.8-7.8); NEUTROPHILS % (AUTO) 62 % (42-75); PLATELET COUNT 119 10^3/uL (130-400); RED CELL DISTRIBUTION WIDTH 14.3 % (10.0-14.5)
--- NOTE | 2019-03-23 07:06 | Diagnostic Imaging Report ---
INDICATION: Fell, left shoulder pain. FINDINGS: 2 views of the left clavicle demonstrate a comminuted fracture of the mid clavicular shaft. IMPRESSION: There is comminuted fracture of the left mid clavicular shaft. Dictated by: Dictated on workstation # [id number]
[2019-03-23] MEDS ORDERED: meTOprolol SUCCINATE 100 MG (TOPROL XL) TAB PO SCH (09:00)
[2019-03-23] MEDS ORDERED: REGADENOSON 0.4 MG/5 ML SYR (LEXISCAN) IV ONE ×2 (09:04→10:00)
--- NOTE | 2019-03-23 10:32 | NUR ---
2ML OF DEFINITY SOLUTION WERE GIVEN. PT TOLERATED IT WELL.
--- NOTE | 2019-03-23 10:35 | Consultation-Cardiology ---
HPI-Cardiology Cardiology Consultation: Date of Consultation 03/23/19 Date of Admission Attending Physician Lindsay You DO Admitting Physician Augie Weaver MD Consulting Physician Faye FIELDS MD HPI: Time Seen by a Provider: 13:00 Chief Complaint: Positive troponin This is a 74-year-old lady who presented to the ER after she had a fall. She has previous history of left-sided stroke with residual deficits, implantable loop recorder, paroxysmal atrial fibrillation, hypertension, hyperlipidemia. In the ER she was found to have a large hematoma on the left side of forehead. Lef t clavicle fracture. No significant cardiac complaints including chest pain, shortness of breath, syncope, near-syncope or palpitations. She denies active smoking. She does not have any significant pertinent family history. Review of Systems-Cardiology Review of Systems Constitutional: As described under HPI; No As described under HPI, No no symptoms reported, No chills, No fever, No lightheadedness Eyes: No As described under HPI, No no symptoms reported, No blindness, No blurred vision, No contact lenses, No drainage, No decreased acuity, No foreign body sensation, No pain, No vision change Ears/Nose/Throat: No As described under HPI, No no symptoms reported, No ch ronic hearing loss, No ear discharge, No ear pain, No nasal drainage, No ulcerations Respiratory: No no symptoms reported; As described under HPI; No As described under HPI, No cough, No orthopnea, No shortness of breath, No SOB with excertion Cardiovascular: No no symptoms reported; As described under HPI; No As described under HPI, No chest pain, No edema, No irregular heart rate, No lightheadedness, No palpitations Gastrointestinal: No no symptoms reported, No As described under HPI, No abdomen distended, No abdominal pain, No blood streaked bowels, No constipation, No diarrhea, No nausea, No vomiting, No stool coloration changes Genitourinary: No As described under HPI, No burning, No dysuria, No discharge, No frequency, No flank pain, No hematuria, No urgency : Yes : No Skin: No rash, No skin related problems, No ulcerations Psychiatric/Neurological: No anxiety, No depression, No seizure, No focal weakness, No syncope Hematologic: No bleeding abnormalities All Other Systems Reviewed Negative Unless Noted: Yes KSB-Pgqipd-Fxckxi Hx Patient Social History Alcohol Use: Denies Use Recreational Drug Use: No Smoking Status: Former Smoker Type Used: Cigarettes 2nd Hand Smoke Exposure: No Recent Foreign Travel: No Recent Infectious Disease Expo: No Immunizations Up To Date Tetanus Booster (TDap): Unknown Date of Pneumonia Vaccine: Mar 23, 2016 Date of Influenza Vaccine: Dec 21, 2018 Past Medical History PMH As described under Assessment. Family Medical History Family History: FH: CVA (cerebrovascular accident) G8 BROTHER G8 SISTER FH: breast cancer 19 MOTHER FH: cancer 19 FATHER Hypertension 19 MOTHER Allergies and Home Medications Allergies Coded Allergies: donepezil (Verified Allergy, Unknown, disoriented, stroke like symptoms, 03/23/19) fentanyl (Verified Adverse Reaction, Mild, 03/23/19) MAKES HER HALLUCINATE Home Medications Acetaminophen 325 Mg Tablet, 650 MG PO Q4H PRN for PAIN-MILD, (Reported) Amlodipine Besylate 5 Mg Tablet, 5 MG PO DAILY, (Reported) Aspirin 81 Mg Tablet.dr, 81 MG PO DAILY, (Reported) Atorvastatin Calcium 80 Mg Tablet, 80 MG PO DAILY, (Reported) Brimonidine Tartrate 5 Ml Btl, 1 DROP OU BID, (Reported) Bupropion HCl 300 Mg Tab.er.24h, 300 MG PO DAILY, (Reported) Diclofenac Sodium 100 Gm Gel..gram., 2 GM TOP QID PRN for JOINT PAIN, (Reported) Gabapentin 300 Mg Capsule, 300 MG PO BID, (Reported) Latanoprost 2.5 Ml Drops, 1 DROP OU HS, (Reported) Magnesium Oxide 400 Mg Tablet, 400 MG PO BID, (Reported) Metoprolol Succinate 100 Mg Tab.er.24h, 100 MG PO DAILY, (Reported) Rivaroxaban 15 Mg Tablet, 15 MG PO 1700, (Reported) Patient Home Medication List Home Medication List Reviewed: Yes Physical Exam-Cardiology Physical Exam Vital Signs/I&O 03/24/19 03/24/19 03/24/19 03/24/19 07:00 08:00 08:00 12:00 Temp 36.5 36.4 Pulse 50 70 60 Resp 20 20 B/P (MAP) 166/79 (108) 145/83 (103) Pulse Ox 95 94 98 O2 Delivery Room Air Room Air Room Air 03/24/19 03/24/19 13:00 15:39 Temp 37.2 Pulse 71 70 Resp 18 B/P (MAP) 148/86 (106) Pulse Ox 98 O2 Delivery Room Air 03/24/19 00:00 Intake Total 675 ml Output Total 1300 ml Balance -625 ml Capillary Refill : Less Than 3 SecondsLess Than 3 Seconds Constitutional: appears stated age; No apparent distress; well-developed, well- nourished HEENT: PERRL; No discharge; hearing is well preserved, oral hygience is good; No ulceration, No xanthelasmas are seen Neck: No carotid bruit; carotid pulses are 2 + bilaterally Respiratory: chest is bilaterally symmetric, lungs clear to auscultation Cardiovascular: regular rate-rhythm, S1 and S2 Gastrointestinal: soft, audible bowel sounds; No spleenomegaly Rectal: deferred Extremities: other (left clavicle fracture.); No clubbing, No cyanosis, No s ignificant edema Neurologic/Psychiatric: no motor/sensory deficits, alert, normal mood/affect, oriented x 3, power is 5/5 both on sides Skin: No rash, No ulcerations Data Review Labs ECG Impression ECG Initial ECG Rhythm: Normal Sinus Initial ECG Impression: Normal A/P-Cardiology Assessment/Admission Diagnosis History of fall with left clavicular fracture. History of CAD, positive cardiac enzymes, nuclear stress test done on 03/23/2019 did not show any significant ischemia or infarct. Echocardiogram showed normal LV function with no significant valvular heart dis ease. Previous TIA/CVA, being managed by Dr You. History of multiple CVA in the past. Hypercoagulable state workup has been negative (normal protein C, protein S and, antithrombin III; no factor V Leiden mutation; anticardiolipin antibody negative; factor II mutant was also negative). PAF, document on previous ILR tranmissions. Pt is since on Xarelto. We need to consider whether she is the right patient for oral anticoagulation considering the recent fall. I will defer to the outpatient kinesiologist. Small PFO seen on [facility] March 2014 H/o leg claudication and peripheral arterial disease, last ALYSA was done in May 2015 and was within normal limits Hypertension, by history Hyperlipidemia, by history CYP 2C19 showed intermediate metabolizer. Mild bilateral carotid stenosis on carotid u/s of December 2017 CKD-3, followed and monitored by Dr. Travis. History of osteoarthritis, rheumatoid arthritis, and fibromyalgia. History of depression. History of elevated LPa Follow-up with outpatient kinesiologist. If the patient does not have outpatient kinesiologist, she can follow with either myself or Dr. Whitehead. Both of us have seen her during hospitalization in the last 3 months. Plan Nuclear stress test, negative for ischemia or infarct. Echocardiogram done 03/23/2019 showed normal LV function with no wall motion abnormalities. No significant valvular heart disease. PAF with high CHADSVASC score with previous TIA/CVA - therefore high risk patient for stroke with PAF. We need to consider whether she is the right patient for oral anticoagulation considering the recent fall. I will defer to the outpatient kinesiologist. Thank you for your consultation. Please call me if you have any questions. Arthur Fields MD, FACP, FACC, FSCAI, FHRS, CCDS Interventional Cardiology Cardiac Electrophysiology Vascular Medicine and Endovascular Interventions Clinical Quality Measures DVT/VTE Risk/Contraindication: Risk Factor Score Per Nursin RFS Level Per Nursing on Admit: 2=Moderate Faye FIELDS MD Mar 23, 2019 10:35
--- NOTE | 2019-03-23 10:58 | Short Stay Summary-Hospitalist ---
History of Present Illness HPI/Chief Complaint Chief Complaint: Chest pain after fall with left clavicle fracture HPI: This is a 74 yoWF with known heart disease who presents after fall suffering a left clavicle fracture and noted on workup with elevated Troponin. Lexiscan stress test completed results are pending. Will initiate PT and OT. Pt denies any significant other issues. Source: patient Date Seen 03/23/19 Time Seen by a Provider: 11:30 Attending Physician Lindsay You DO PCP Augie Weaver MD Referring Physician Date of Admission Mar 22, 2019 at 23:40 Home Medications & Allergies Home Medications Reviewed patient Home Medication Reconciliation performed by pharmacy medication reconciliations certified technician and/or nursing. Patients Allergies have been reviewed. Allergies Allergies Coded Allergies donepezil (Verified Allergy, Unknown, disoriented, stroke like symptoms, 03/23/19) fentanyl (Verified Adverse Reaction, Mild, 03/23/19) MAKES HER HALLUCINATE Past Farbfwq-Ztysoy-Otbeme Hx Past Med/Social Hx: Reviewed Nursing Past Med/Soc Hx, Reviewed and Corrections made Patient Social History Marrital Status: single Alcohol Use: Denies Use Recreational Drug Use: No Smoking Status: Former Smoker Former Smoker, Quit: Dec 19, 1986 Type Used: Cigarettes 2nd Hand Smoke Exposure: No Recent Foreign Travel: No Contact w/other who traveled: No Recent Hopitalizations: No Recent Infectious Disease Expo: No Immunizations Up To Date Tetanus Booster (TDap): Unknown Pediatric: Yes Date of Pneumonia Vaccine: Mar 23, 2016 Date of Influenza Vaccine: Dec 21, 2018 Seasonal Allergies Seasonal Allergies: Yes Past Medical History Surgeries: Abdominal, Appendectomy, Eye Surgery, Tonsillectomy Currently Using CPAP: No Currently Using BIPAP: No Cardiac: Atrial Fibrillation, Coronary Artery Disease, Heart Murmur, High Cholesterol, Hypertension, Peripheral Vascular, Valvular Heart Disease Hyperlipidemia Neurological: Stroke, TIA 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: No Sexually Transmitted Disease: No HIV/AIDS: No Female 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 Disorders: Denies Menopausal Gastrointestinal: Gastroesophageal Reflux, Hiatal Hernia Musculoskeletal: Arthritis HEENT: Cataract, Glaucoma Hearing Impairment: Denies Did You Recieve Any Treatments: No Psychosocial: Anxiety, Depression History of Blood Disorders: Yes (ANEMIA) Adverse Reaction to Blood Quevedo: No Family History FH: CVA (cerebrovascular accident) G8 BROTHER G8 SISTER FH: breast cancer 19 MOTHER FH: cancer 19 FATHER Hypertension 19 MOTHER Review of Systems Constitutional: see HPI, dizziness Musculoskeletal: muscle pain Physical Exam Physical Exam Vital Signs Vital Signs - First Documented 03/22/19 03/23/19 21:21 01:02 Temp 37.0 Pulse 106 Resp 20 B/P (MAP) 178/86 (116) Pulse Ox 98 O2 Delivery Room Air Capillary Refill : Less Than 3 SecondsLess Than 3 Seconds Height, Weight, BMI Height: 5'4.00" Weight: 170lbs. 1.6oz. 77.828720at; 27.00 BMI Method:Stated General Appearance: No Apparent Distress, WD/WN, Chronically ill Eyes: Bilateral Eye Normal Inspection, Bilateral Eye PERRL HEENT: PERRL/EOMI, TMs Normal, Normal ENT Inspection, Pharynx Normal Neck: Full Range of Motion, Normal Inspection, Non Tender, Supple, Carotid Bruit Respiratory: Chest Non Tender, Lungs Clear, Normal Breath Sounds, No Accessory Muscle Use, No Respiratory Distress Cardiovascular: Regular Rate, Rhythm, No Edema, No Gallop, No JVD, No Murmur, Normal Peripheral Pulses Gastrointestinal: Normal Bowel Sounds, No Organomegaly, No Pulsatile Mass, Non Tender, Soft Back: Normal Inspection, No CVA Tenderness, No Vertebral Tenderness Extremity: Normal Capillary Refill, Normal Inspection, Normal Range of Motion, Non Tender, No Calf Tenderness, No Pedal Edema, Other (Limited ROM left arm clavicle fracture in sling ) Neurologic/Psychiatric: Alert, Oriented x3, No Motor/Sensory Deficits, Normal Mood/Affect Skin: Normal Color, Warm/Dry Lymphatic: No Adenopathy Results Results/Procedures Labs Laboratory Tests 03/22/19 21:30 03/23/19 04:19 Patient resulted labs reviewed. Short Stay Diagnosis Discharge Diagnosis-Short Stay Admission Diagnosis Assessment: Fall Left clavicle fracture closed AF CAD Chest pain Elevated troponin Frail status HTN HLP Plan: Pain control Lexiscan Appreciate Cardiology PT/OT Final Discharge Diagnosis Assessment: Fall Left clavicle fracture closed AF CAD Chest pain Elevated troponin Frail status HTN HLP Conclusion Plan Plan: Stress test results pending Appreciate Cardiology Sling for left arm PT/OT Social work consult Diagnosis/Problems Diagnosis/Problems (1) Fracture of left clavicle (2) Elevated troponin Status: Acute (3) Fall Status: Acute Qualifiers: Qualified Codes: W19.XXXA - Unspecified fall, initial encounter Clinical Quality Measures DVT/VTE Risk/Contraindication: Risk Factor Score Per Nursin RFS Level Per Nursing on Admit: 2=Moderate LINDSAY YOU DO Mar 23, 2019 10:58
--- NOTE | 2019-03-23 11:30 | NUR ---
RECEIVED PATIENT BACK IN ROOM. PATIENT RESTING INBED AFTER RECEIVING MORNING MEDICATIONS AND PAIN MEDICATION.
[2019-03-23] MEDS: PANTOPRAZOLE 40 MG (PROTONIX) TAB PO SCH (11:37)
[2019-03-23] MEDS: HYDROcodone/APAP 5 MG/325 MG (LORTAB) TAB PO PRN ×3 (11:38→21:35)
[2019-03-23] MEDS ORDERED: BUPR300T51 PO (11:45)
[2019-03-23] MEDS ORDERED: ATOR80TA76 PO (11:45)
[2019-03-23] MEDS ORDERED: RIVA15TA PO (11:45)
--- NOTE | 2019-03-23 11:50 | NUR ---
PATIENT STATES SHE IS NOT SURE OF HER MEDICATIONS HER DAUGHTER HANDLES THEM FOR HER. I CALLED AND SPOKE WITH HER DAUGHTER OVER THE PHONE, WE WENT OVER THE EXT MED HX AND SHE VERIFIED HOW SHE TAKES THEM. SHE FILLED PROTONIX 40MG #90 01-26-19 - DAUGHTER STATES THIS HAS BEEN STOPPED FOR NOW DUE TO DIARRHEA, THEY ARE GOING TO SEE HOW SHE DOES WITHOUT IT. DAUGHTER ALSO STATES THEY DISCONTINUED THE PROBIOTIC. SHE TAKES MAG 400MG BID AND TYLENOL PRN OTC. SHE FILLS ASPIRIN 81MG A SCRIPT ON THE EXT MED HX.
[2019-03-23 12:11] VITALS: BP 147/65
--- NOTE | 2019-03-23 12:53 | Cardiology Stress Test Report ---
Stress Test Report Type of NM Stress Test: Test Type: LEXISCAN 0.4MG/5ML Date of Procedure/Referring: Date of Procedure: Mar 23, 2019 PCP Lindsay You DO Admitting Physician Augie Weaver MD Indications: Positive cardiac enzymes. Baseline Heart Rate: 87 Baseline Blood Pressure: Blood Pressure Systolic: 147 Blood Pressure Diastolic: 65 Baseline EKG: Baseline EKG: sinus rhythm Summary & Conclusion: Summary: The patient was brought to the stress lab after informed consent was taken. Stress test was performed according to the Lexiscan protocol. 0.4 mg of IV Lexiscan was given. Low-grade exercise was performed. Baseline EKG showed sinus rhythm at 87 BPM. Blood pressure 186/109 mmHg. Maximum heart rate 103 BPM. That pressure 175/115. Patient did not have any chest pain, arrhythmias or ST segment changes during the stress test. 10.33 mCi of Myoview were given for rest imaging and 32.8 mCi of Myoview given for stress imaging. Transient ischemic dilatation score 0.98, EF 61 percent. Normal wall motion. Normal myocardial perfusion imaging during rest and stress. Conclusion: Pharmacological stress test was negative for ischemia. Normal LV function with no wall motion abnormalities. Normal myocardial perfusion imaging during rest and stress. Faye RANDALL MD Mar 23, 2019 12:53
--- NOTE | 2019-03-23 13:43 | Occupational Therapy Eval ---
OT Evaluation-General/PLF Medical Diagnosis Admission Date Mar 22, 2019 at 23:40 Medical Diagnosis: Fall, L clavicle fracture Onset Date: Mar 22, 2019 Therapy Diagnosis Therapy Diagnosis: Decreased ADL function Height/Weight Height (Feet): 5 Height (Inches): 4.00 Weight (Pounds): 170 Weight (Ounces): 1.6 Precautions Precautions/Isolations: Fall Prevention, Standard Precautions Weight Bear Status Weight Bearing Restriction: Weight Bearing/Tolerated L arm in sling BLE WBAT status Referral Physician: Lindsay You DO Referral Reason: Activity Tolerance, Self Care, Evaluation/Treatment, Strengthening/ROM Medical History Pertinent Medical History: Atrial Fib, Arthritis, CVA, GERD, HTN Additional Medical History L side CVA, a fib, heart murmur, high cholesterol, HTN, peripheral vascular disease, valvular heart disease, hiatal hernia, gastroesophageal reflux, anx/ depression Current History Pt was standing at stove-top, burnt R hand and jumped back, fell on L side. Pt has broken L clavicle, hx of L side affected TIA. Reviewed History: Yes Social History Home: Single Level Current Living Status: Alone Entry Into Home: Stairs With Railing (2 platform stairs) Steps Into Home: 2 ADL-Prior Level of Function SCALE: Activities may be completed with or without assistive devices. 1-Uxltiohbjq-oorsmje completes the activity by him/herself with no assistance from a helper. 5-Set-up or Clean-up Assistance-helper sets up or cleans up; patient completes activity. [place] assists only prior to or following the activity. 4-Supervision or Touching Assistance-helper provides verbal cues and/or touching/steadying and/or contact guard assistance as patient completes activity. Assistance may be provided throughout the activity or intermittently. 3-Partial/Moderate Assistance-helper does LESS THAN HALF the effort. [place] lifts, holds or supports trunk or limbs, but provides less than half the effort. 2-Substantial/Maximal Assistance-helper does MORE THAN HALF the effort. [place] lifts or holds trunk or limbs and provides more than half the effort. 8-Yvbwidljj-xvjdur does ALL the effort. Patient does none of the effort to complete the activity. Or, the assistance of 2 or more helpers is required for the patient to complete the activity. If activity was not attempted, code reason: 7-Patient Refused. 9-Not Applicable-not attempted and the patient did not perform the activity before the current illness, exacerbation or injury. 10-Not Attempted due to Environmental Limitations-(lack of equipment, weather restraints, etc.). 88-Not Attempted due to Medical Conditions or Safety Concerns. ADL PLOF Comments Pt was IND with FWW within the home. Self Care: Independent Functional Cognition: Independent DME/Equipment: Bath Chair, Grab Bars, Shower DME/Equipment Comments FWW, shower chair, grab bars. Occupation: retired Drive Self: No OT Current Status Subjective Pt seen in bed, agreeable to OT eval/ treat. Pt states 8/10 pain in L shoulder. Daughter and granddaughter in room. Mental Status/Objective Patient Orientation: Person, Place, Situation, Normal For Age Attachments: IV Current Glasses/Contacts: Yes Hearing Aids: No Dentures/Partials: No Hand Dominance: Right Upper Extremity ROM WFL RUE L DNT Upper Extremity Coordination WFL BUE Upper Extremity Sensation WFL BUE L hand sensation testing normal Upper Extremity Strength Impaired R UE ADL-Treatment Eating (QC): 6 Oral Hygiene (QC): 7 Shower/Bathe Self (QC): 7 Upper Body Dressing (QC): 2 (DNT. Based on clinical judgement and pain level.) Lower Body Dressing (QC): 7 On/Off Footwear (QC): 4 (SBA for socks EOB) Toileting Hygiene (QC): 7 Other Treatments Pt seen in bed. Pt has L sided bruise on face, L UE in sling, sling adjusted and WB status addressed with pt for clavicle fx. hx provided by pt and daughter. OT addresses role. Daughter states concern over functional mobility, OT addresses PT's role. Pt's UB strength tested in bed, agreeable to OOB activity, though denies further ADLs. Pt moves EOB with min A for LLE. Socks doffed/ donned. PT enters room, pt able to sit to stand and complete steps with diego walker. Pt lowers to chair with good control. Pt given ice pack for LUE clavicle pain. Pt left with PT within room. Education OT Patient Education: Correct positioning, Purpose of tx/functional activities Teaching Recipient: Patient Teaching Methods: Demonstration, Discussion Response to Teaching: Verbalize Understanding, Return Demonstration OT Nursing Home Goals Nursing Home Goals Time Frame: Mar 30, 2019 Eating (QC): 6 Oral Hygiene (QC): 6 Toileting Hygiene (QC): 6 Shower/Bathe Self (QC): 4 Upper Body Dressing (QC): 4 Lower Body Dressing (QC): 4 On/Off Footwear (QC): 6 Additional Goals: 1-Demonstrate ADL Tasks, 2-Verbalize Understanding, 3-ImproveStrength/Sarah 1=Demonstrate adherence to instructed precautions during ADL tasks. 2=Patient will verbalize/demonstrate understanding of assistive devices/modifications for ADL. 3=Patient will improve strength/tolerance for activity to enable patient to per form ADL's. OT Education/Plan Problem List/Assessment Assessment: Decreased Activ Tolerance, Decreased UE Strength, Impaired Bed Mobility, Impaired Funct Balance, Impaired I ADL's, Impaired Self-Care Skills Discharge Recommendations Plan/Recommendations: Continue POC Treatment Plan/Plan of Care Treatment,Training & Education: Yes Patient would benefit from OT for education, treatment and training to promote independence in ADL's, mobility, safety and/or upper extremity function for ADL's. Plan of Care: ADL Retraining, Caregiver Training, Functional Mobility, UE Funct Exercise/Act Treatment Duration: Mar 30, 2019 Frequency: 5 times per week Estimated Hrs Per Day: .25 hour per day Agreement: Yes Rehab Potential: Fair Time/GCodes Start Time: 13:10 Stop Time: 13:25 Total Time Billed (hr/min): 15 Billed Treatment Time 1MODESTO (15) HUE EAGLE OTR Mar 23, 2019 13:42
--- NOTE | 2019-03-23 14:36 | Physical Therapy Evaluation ---
PT Evaluation-General Medical Diagnosis Admission Date Mar 22, 2019 at 23:40 Medical Diagnosis: Fall, L clavicle fracture Onset Date: Mar 22, 2019 Therapy Diagnosis Therapy Diagnosis: generalized weakness/debility Height/Weight Height (Feet): 5 Height (Inches): 4.00 Weight (Pounds): 170 Weight (Ounces): 1.6 Precautions Precautions/Isolations: Fall Prevention, Standard Precautions Referral Physician: Lindsay You DO Reason for Referral: Evaluation/Treatment Medical History Pertinent Medical History: Atrial Fib, Arthritis, CVA, GERD, HTN Current History EMS secondary to fall and LOC Reviewed History: Yes Social History Home: Single Level Current Living Status: Alone Entry Into Home: Stairs With Railing (2 platform stairs) PT Steps Into Home: 2 Prior Prior Level of Function SCALE: Activities may be completed with or without assistive devices. 3-Srjjiyceru-grjtsru completes the activity by him/herself with no assistance from a helper. 5-Set-up or Clean-up Assistance-helper sets up or cleans up; patient completes activity. [place] assists only prior to or following the activity. 4-Supervision or Touching Assistance-helper provides verbal cues and/or touching/steadying and/or contact guard assistance as patient completes activity. Assistance may be provided throughout the activity or intermittently. 3-Partial/Moderate Assistance-helper does LESS THAN HALF the effort. [place] lifts, holds or supports trunk or limbs, but provides less than half the effort. 2-Substantial/Maximal Assistance-helper does MORE THAN HALF the effort. [place] lifts or holds trunk or limbs and provides more than half the effort. 2-Yuvaipwan-senrbc does ALL the effort. Patient does none of the effort to complete the activity. Or, the assistance of 2 or more helpers is required for the patient to complete the activity. If activity was not attempted, code reason: 7-Patient Refused. 9-Not Applicable-not attempted and the patient did not perform the activity before the current illness, exacerbation or injury. 10-Not Attempted due to Environmental Limitations-(lack of equipment, weather restraints, etc.). 88-Not Attempted due to Medical Conditions or Safety Concerns. Bed Mobility: 5 Transfers (B,C,W/C): 5 Gait: 5 Stairs: 5 Indoor Mobility (Ambulation): Independent Stairs: Needed Some Help Prior Devices Use: Walker PT Evaluation-Current Subjective Patient agrees to PT. Family present. Pain Numeric Pain Scale: 5-Moderate Pain Location: Left Location Body Site: Shoulder Pain Description: Acute Objective Patient Orientation: Person, Time, Situation ROM/Strength ROM Lower Extremities bilateral LE WFL Strength Lower Extremities left LE 3-/5 grossly/right LE 3/5 grossly Integumentary/Posture Integumentary refer to nursing notes Bowel Incontinence: No Bladder Incontinence: No Posture slightly kyphotic Neuromuscular (Tone, Coordination, Reflexes) increased tone left LE Sensory Vision: Functional Hearing: Functional Hand Dominance: Right Sensation Right Lower Extremit: Impaired Sensation Left Lower Extremity: Impaired Transfers Roll Left to Right (QC): 3 Sit to Lying (QC): 3 Lying to Sitting/Side of Bed(Q: 3 Sit to Stand (QC): 3 Chair/Csr-kt-Joici Xfer(QC): 3 Gait Does the Patient Walk?: Yes Mode of Locomotion: Walk Anticipated Mode of Locomotion: Walk Walk 10 feet (QC): 3 Walk 50 ft with 2 Turns(QC): 3 Walk 150 ft (QC): 88 Gait Assistive Device: Walker Jose Luis Comments/Gait Description step to/sideways gait sequence with jose luis walker Balance Sitting Static: Normal Sitting Dynamic: Normal Standing Static: Fair Standing Dynamic: Fair Assessment/Needs 74 y.o. female, will benefit from skilled PT to address functional strength and mobility to improve current LOF to safely return to home or care facility at maximum LOF. Rehab Potential: Fair PT Family Program Specialist Goals Family Program Specialist Goals PT Family Program Specialist Goals Time Frame: Apr 07, 2019 Roll Left & Right (QC): 5 Sit to Lying (QC): 5 Lying-Sitting on Side/Bed(QC): 5 Sit to Stand (QC): 5 Chair/Reg-vr-Ixaai Xfer(QC): 5 Toilet Transfer (QC): 5 Car Transfer (QC): 5 Does the Patient Walk: Yes Walk 10 feet (QC): 5 Walk 50ft with 2 Turns (QC): 5 Walk 150 ft (QC): 5 Walking 10ft on Uneven Surface: 5 1 Step (curb) (QC): 5 4 Steps (QC): 5 12 Steps (QC): 9 PT Plan Problem List Problem List: Activity Tolerance, Functional Strength, Safety, Balance, Gait, Transfer, Bed Mobility Treatment/Plan Treatment Plan: Continue Plan of Care Treatment Plan: Bed Mobility, Education, Functional Activity Sarah, Functional Strength, Gait, Safety, Therapeutic Exercise, Transfers Treatment Duration: Apr 07, 2019 Frequency: 6 times per week Estimated Hrs Per Day: .25 hour per day Patient and/or Family Agrees t: Yes Discharge Recommendations Therapy Discharge Recommendati: Other, See Comments (intermediate facility/11/10 care) Time/GCodes Time In: 1325 Time Out: 1343 Total Billed Treatment Time: 18 Total [facility] FELICITA SINGH PT Mar 23, 2019 14:36
--- NOTE | 2019-03-23 15:22 | NUR ---
CM/SS: Visited with pt and daughter as per consult Plan: Undetermined at this time. Possible skilled stay at facility or return home with caregivers Summary: Daughter expressed concern for pt as to her being able to go home after leaving the hospital. Daughter reports that pt has been a [facility] in past after her stroke in April 2018, for 100 days and spent time at [facility]. Pt repots she does not want to return to [facility]. Daughter requesting list of caregivers. They are unsure of what plan they want at this time. Daughter expresses concern as to pt going to bathroom and dressing herself. Pt seems pretty tired and says very little. This worker will follow up. List on caregiver agencies and caregivers given to pt and daughter.
[2019-03-23 15:33] VITALS: BP 160/88
[2019-03-23] MEDS ORDERED: RIVAROXABAN 15 MG TABLET (XARELTO) PO SCH (17:00)
[2019-03-23 19:38] VITALS: BP 185/86
[2019-03-24 00:06] VITALS: BP 174/77
[2019-03-24] MEDS: 1/2 NS IV SOLUTION 1,000 ML IV SCH ×2 (02:16→02:31)
[2019-03-24 03:40] VITALS: BP 184/90
[2019-03-24 08:00] VITALS: BP 166/79
[2019-03-24] MEDS: MAGNESIUM OXIDE (MAG-OX)400 MG TAB PO SCH ×2 (08:28→22:35)
[2019-03-24] MEDS: buPROPion SR 150 MG (WELLBUTRIN SR) TAB PO SCH (08:29)
[2019-03-24] MEDS: ASPIRIN E.C. 81 MG (ECOTRIN) TAB PO SCH (08:29)
[2019-03-24] MEDS: amLODIPine 5 MG (NORVASC) TAB PO SCH (08:29)
[2019-03-24] MEDS: GABAPENTIN 300 MG (NEURONTIN) CAP PO SCH ×2 (08:29→22:35)
[2019-03-24] MEDS: HYDROcodone/APAP 5 MG/325 MG (LORTAB) TAB PO PRN ×2 (08:30→17:17)
[2019-03-24] MEDS: PANTOPRAZOLE 40 MG (PROTONIX) TAB PO SCH (08:34)
[2019-03-24] MEDS: meTOprolol SUCCINATE 100 MG (TOPROL XL) TAB PO SCH (08:45)
[2019-03-24] MEDS ORDERED: NON-FORMULARY MEDICATION 1 EA EA (Magnesium Oxide (Magnesium) 400 MG) PO SCH (09:00)
[2019-03-24] MEDS ORDERED: NON-FORMULARY MEDICATION 1 EA EA (Bupropion HCl (Bupropion Xl) 300 MG) PO SCH (09:00)
[2019-03-24] MEDS: BRIMONIDINE 0.2% (ALPHAGAN) OPHTH SOLN 5 ML BTL OU SCH ×2 (09:47→22:35)
[2019-03-24 12:00] VITALS: BP 145/83
--- NOTE | 2019-03-24 12:17 | Progress Note - Hospitalist ---
Subjective HPI/CC On Admission Date Seen by Provider: Mar 24, 2019 Time Seen by Provider: 11:00 Chief Complaint: Chest pain after fall with left clavicle fracture HPI: This is a 74 yoWF with known heart disease who presents after fall suffering a left clavicle fracture and noted on workup with elevated Troponin. Lexiscan stress test completed results are pending. Will initiate PT and OT. Pt denies any significant other issues. Subjective/Events-last exam Stress test reviewed Appreciate Dr Fields Very debilitated Walked a bit with therapy today but became very fatigued with just a short walk Needs NH placement and patient and family member supportive of that SW consult placed yesterday Needs BM so will order Miralax Restarted all home meds yesterday Review of Systems General: Fatigue Musculoskeletal: arm pain Neurological: Weakness, Numbness, Incoordination Objective Exam Vital Signs Vital Signs Date Time Temp Pulse Resp B/P (MAP) Pulse Ox O2 Delivery O2 Flow Rate FiO2 03/24/19 13:00 71 03/24/19 12:00 36.4 20 145/83 (103) 98 Room Air Capillary Refill : Less Than 3 SecondsLess Than 3 Seconds General Appearance: No Apparent Distress, WD/WN, Chronically ill Respiratory: Chest Non Tender, Lungs Clear, Normal Breath Sounds, No Accessory Muscle Use, No Respiratory Distress Cardiovascular: Regular Rate, Rhythm, No Edema, No Gallop, No JVD, No Murmur, Normal Peripheral Pulses Extremity: Other (left arm in sling limited ROM) Neurologic/Psychiatric: Alert, Oriented x3, No Motor/Sensory Deficits, Normal Mood/Affect, Motor Weakness (left side) Results/Procedures Lab Patient resulted labs reviewed. Assessment/Plan Assessment and Plan Assess & Plan/Chief Complaint Assessment: Fall Left clavicle fracture closed Severe debility will require SNF h/o Left sided flaccidity from CVA 05/09 AF CAD Chest pain Elevated troponin Frail status HTN HLP Constipation Depression CRI Plan: Stress test results reviewed Appreciate Cardiology Sling for left arm PT/OT Social work consult for skilled care Miralax Diagnosis/Problems Diagnosis/Problems (1) Fracture of left clavicle (2) Elevated troponin Status: Acute (3) Fall Status: Acute Qualifiers: Encounter type: initial encounter Qualified Codes: W19.XXXA - Unspecified fall, initial encounter (4) Paroxysmal atrial fibrillation Status: Chronic (5) Hyperlipidemia Status: Chronic (6) Depression Status: Chronic (7) Hypertension Status: Chronic (8) Cerebrovascular accident (CVA) with left hemiparesis Status: Chronic (9) Anticoagulant long-term use Status: Chronic (10) Incontinence of urine Status: Acute Clinical Quality Measures DVT/VTE Risk/Contraindication: Risk Factor Score Per Nursin RFS Level Per Nursing on Admit: 2=Moderate SANDY WILLIS DO Mar 24, 2019 12:17
[2019-03-24] MEDS: DICLOFENAC 1% GEL 100 GM (VOLTAREN) TUBE TOP PRN ×2 (14:05→19:49)
[2019-03-24 15:39] VITALS: BP 148/86
--- NOTE | 2019-03-24 16:18 | Cardiology Progress Note ---
Cardiology SOAP Progress Note Subjective: No cardiac complaints. Objective: I&O/Vital Signs 03/24/19 03/24/19 03/24/19 03/24/19 07:00 08:00 08:00 12:00 Temp 36.5 36.4 Pulse 50 70 60 Resp 20 20 B/P (MAP) 166/79 (108) 145/83 (103) Pulse Ox 95 94 98 O2 Delivery Room Air Room Air Room Air 03/24/19 03/24/19 13:00 15:39 Temp 37.2 Pulse 71 70 Resp 18 B/P (MAP) 148/86 (106) Pulse Ox 98 O2 Delivery Room Air 03/24/19 00:00 Intake Total 675 ml Output Total 1300 ml Balance -625 ml Weight (Pounds): 170 Weight (Ounces): 1.6 Weight (Calculated Kilograms): 77.548835 Constitutional: appears stated age; No apparent distress; well-developed, well- nourished Respiratory: chest is bilaterally symmetric, lungs clear to auscultation Cardiovascular: regular rate-rhythm, S1 and S2 Gastrointestional: soft, audible bowel sounds; No spleenomegaly Extremities: other (left clavicle fracture.); No clubbing, No cyanosis, No significant edema Neurologic/Psychiatric: no motor/sensory deficits, alert, normal mood/affect, oriented x 3, power is 5/5 both on sides Skin: No rash, No ulcerations A/P: Assessment/Dx: History of fall with left clavicular fracture. History of CAD, positive cardiac enzymes, nuclear stress test done on 03/23/2019 did not show any significant ischemia or infarct. Echocardiogram showed normal LV function with no significant valvular heart disease. Previous TIA/CVA, being managed by Dr You. History of multiple CVA in the past. Hypercoagulable state workup has been negative (normal protein C, protein S and, antithrombin III; no factor V Leiden mutation; anticardiolipin antibody negative; factor II mutant was also negative). PAF, document on previous ILR tranmissions. Pt is since on Xarelto. We need to consider whether she is the right patient for oral anticoagulation considering the recent fall. I will defer to the outpatient high school band teacher. Small PFO seen on [facility] March 2014 H/o leg claudication and peripheral arterial disease, last ALYSA was done in May 2015 and was within normal limits Hypertension, by history Hyperlipidemia, by history CYP 2C19 showed intermediate metabolizer. Mild bilateral carotid stenosis on carotid u/s of December 2017 CKD-3, followed and monitored by Dr. Travis. History of osteoarthritis, rheumatoid arthritis, and fibromyalgia. History of depression. History of elevated LPa Follow-up with outpatient high school band teacher. If the patient does not have outpatient high school band teacher, she can follow with either myself or Dr. Whitehead. Both of us have seen her during hospitalization in the last 3 months. Plan: Nuclear stress test, negative for ischemia or infarct. Echocardiogram done 03/23/2019 showed normal LV function with no wall motion abnormalities. No significant valvular heart disease. PAF with high CHADSVASC score with previous TIA/CVA - therefore high risk patient for stroke with PAF. We need to consider whether she is the right patient for oral anticoagulation considering the recent fall. I will defer to the outpatient high school band teacher. Thank you for your consultation. Please call me if you have any questions. Arthur Fields MD, FACP, FACC, FSCAI, FHRS, CCDS Interventional Cardiology Cardiac Electrophysiology Vascular Medicine and Endovascular Interventions Faye FIELDS MD Mar 24, 2019 16:18
[2019-03-24] MEDS: RIVAROXABAN 15 MG TABLET (XARELTO) PO SCH (17:17)
[2019-03-24 19:29] VITALS: BP 159/90
[2019-03-24] MEDS: LATANOPROST 0.005% (XALATAN) OPHTH SOLN 2.5 ML OU SCH (22:35)
[2019-03-24] MEDS: POLYETHYLENE GLYCOL 17 GM (MIRALAX) PACK PO SCH (22:37)
--- NOTE | 2019-03-24 23:00 | NUR ---
Received report from Brooklyn Borja RN. Agreed with previous assessment. Will assume patient care.
[2019-03-25] VITALS (7 sets, daily range): BP systolic 102–150; BP diastolic 60–78
[2019-03-25 05:12] LABS: BASOPHILS % (AUTO) 0 % (0-10); EOSINOPHILS # (AUTO) 0.2 10^3/uL (0.0-0.3); EOSINOPHILS % (AUTO) 3 % (0-10); HEMATOCRIT 41 % (35-52); HEMOGLOBIN 12.6 G/DL (11.5-16.0); LYMPHOCYTES # (AUTO) 2.2 X 10^3 (1.0-4.0); LYMPHOCYTES % (AUTO) 39 % (12-44); MEAN CORPUSCULAR HEMOGLOBIN 30 PG (25-34); MEAN CORPUSCULAR HGB CONC 31 G/DL (32-36); MEAN CORPUSCULAR VOLUME 98 FL (80-99); MEAN PLATELET VOLUME 10.7 FL (7.4-10.4); MONOCYTES # (AUTO) 0.6 X 10^3 (0.0-1.0); MONOCYTES % (AUTO) 10 % (0-12); NEUTROPHILS # (AUTO) 2.8 X 10^3 (1.8-7.8); NEUTROPHILS % (AUTO) 48 % (42-75); PLATELET COUNT 135 10^3/uL (130-400); RED CELL DISTRIBUTION WIDTH 14.1 % (10.0-14.5); WHITE BLOOD COUNT 5.8 10^3/uL (4.3-11.0)
[2019-03-25] MEDS: ASPIRIN E.C. 81 MG (ECOTRIN) TAB PO SCH (08:10)
[2019-03-25] MEDS: MAGNESIUM OXIDE (MAG-OX)400 MG TAB PO SCH ×2 (08:10→21:09)
[2019-03-25] MEDS: amLODIPine 5 MG (NORVASC) TAB PO SCH (08:10)
[2019-03-25] MEDS: PANTOPRAZOLE 40 MG (PROTONIX) TAB PO SCH (08:10)
[2019-03-25] MEDS: meTOprolol SUCCINATE 100 MG (TOPROL XL) TAB PO SCH (08:10)
[2019-03-25] MEDS: HYDROcodone/APAP 5 MG/325 MG (LORTAB) TAB PO PRN ×2 (08:11→22:07)
[2019-03-25] MEDS: BRIMONIDINE 0.2% (ALPHAGAN) OPHTH SOLN 5 ML BTL OU SCH ×2 (08:11→21:10)
[2019-03-25] MEDS: GABAPENTIN 300 MG (NEURONTIN) CAP PO SCH ×2 (08:11→21:09)
[2019-03-25] MEDS: POLYETHYLENE GLYCOL 17 GM (MIRALAX) PACK PO SCH ×2 (08:11→21:11)
[2019-03-25] MEDS: buPROPion SR 150 MG (WELLBUTRIN SR) TAB PO SCH (08:12)
[2019-03-25 11:10] LABS: ALBUMIN 3.7 GM/DL (3.2-4.5); BILIRUBIN,TOTAL 0.5 MG/DL (0.1-1.0); CALCIUM 9.5 MG/DL (8.5-10.1); CREATININE SERUM 1.35 MG/DL (0.60-1.30); POTASSIUM 4.1 MMOL/L (3.6-5.0); TOTAL PROTEIN 6.1 GM/DL (6.4-8.2)
--- NOTE | 2019-03-25 12:53 | Progress Note - Hospitalist ---
Subjective HPI/CC On Admission Date Seen by Provider: Mar 25, 2019 Time Seen by Provider: 11:00 Chief Complaint: Chest pain after fall with left clavicle fracture HPI: This is a 74 yoWF with known heart disease who presents after fall suffering a left clavicle fracture and noted on workup with elevated Troponin. Lexiscan stress test completed results are pending. Will initiate PT and OT. Pt denies any significant other issues. Subjective/Events-last exam Patient asleep when rounding RN has no concerns Needs NH placement, placed SW consult to help Reviewed stress test and Cardiology contemplating safety of Xarelto and recent major fall No pain is reported except left clavicle BM regimen maintained Review of Systems General: Fatigue Musculoskeletal: arm pain Objective Exam Vital Signs Vital Signs Date Time Temp Pulse Resp B/P (MAP) Pulse Ox O2 Delivery O2 Flow Rate FiO2 03/25/19 16:38 36.9 58 18 102/67 (79) 96 Room Air Capillary Refill : Less Than 3 SecondsLess Than 3 Seconds General Appearance: No Apparent Distress, WD/WN, Chronically ill Respiratory: Lungs Clear Cardiovascular: Regular Rate, Rhythm Neurologic/Psychiatric: Motor Weakness (left sided HP) Results/Procedures Lab Laboratory Tests 03/25/19 04:35 Patient resulted labs reviewed. Assessment/Plan Assessment and Plan Assess & Plan/Chief Complaint Assessment: Fall Left clavicle fracture closed Severe debility will require SNF h/o Left sided flaccidity from CVA 05/09 AF CAD Chest pain Elevated troponin Frail status HTN HLP Constipation Depression CRI with improved creatinine 1.3 OAC and questioning the safety of that since the major fall Plan: Stress test results reviewed Appreciate Cardiology Sling for left arm PT/OT Social work consult for skilled care [place] Diagnosis/Problems Diagnosis/Problems (1) Fracture of left clavicle (2) Elevated troponin Status: Acute (3) Fall Status: Acute Qualifiers: Encounter type: initial encounter Qualified Codes: W19.XXXA - Unspecified fall, initial encounter (4) Paroxysmal atrial fibrillation Status: Chronic (5) Hyperlipidemia Status: Chronic (6) Depression Status: Chronic (7) Hypertension Status: Chronic (8) Cerebrovascular accident (CVA) with left hemiparesis Status: Chronic (9) Anticoagulant long-term use Status: Chronic (10) Incontinence of urine Status: Acute Clinical Quality Measures DVT/VTE Risk/Contraindication: Risk Factor Score Per Nursin RFS Level Per Nursing on Admit: 2=Moderate SANDY WILLIS DO Mar 25, 2019 12:53
--- NOTE | 2019-03-25 15:41 | Cardiology Progress Note ---
Cardiology SOAP Progress Note Subjective: No cardiac complaint. Objective: I&O/Vital Signs 03/25/19 03/25/19 03/25/19 03/25/19 03:50 07:00 08:00 08:00 Temp 36.4 36.1 Pulse 54 57 59 Resp 20 20 B/P (MAP) 150/78 (102) 120/60 (80) Pulse Ox 96 98 O2 Delivery Room Air Room Air Room Air 03/25/19 03/25/19 12:00 13:00 Temp 36.0 Pulse 55 66 Resp 20 B/P (MAP) 111/65 (80) Pulse Ox 97 O2 Delivery Room Air 03/25/19 00:00 Intake Total 2320 ml Output Total 200 ml Balance 2120 ml Weight (Pounds): 170 Weight (Ounces): 1.6 Weight (Calculated Kilograms): 77.530030 Constitutional: appears stated age; No apparent distress; well-developed, well- nourished Respiratory: chest is bilaterally symmetric, lungs clear to auscultation Cardiovascular: regular rate-rhythm, S1 and S2 Gastrointestional: soft, audible bowel sounds; No spleenomegaly Extremities: other (left clavicle fracture.); No clubbing, No cyanosis, No significant edema Neurologic/Psychiatric: no motor/sensory deficits, alert, normal mood/affect, oriented x 3, power is 5/5 both on sides Skin: No rash, No ulcerations Results/Procedures: Labs Laboratory Tests 03/25/19 04:35: White Blood Count 5.8, Red Blood Count 4.16L, Hemoglobin 12.6, Hematocrit 41, Mean Corpuscular Volume 98, Mean Corpuscular Hemoglobin 30, Mean Corpuscular Hemoglobin Concent 31L, Red Cell Distribution Width 14.1, Platelet Count 135, Mean Platelet Volume 10.7H, Neutrophils (%) (Auto) 48, Lymphocytes (%) (Auto) 39, Monocytes (%) (Auto) 10, Eosinophils (%) (Auto) 3, Basophils (%) (Auto) 0, Neutrophils # (Auto) 2.8, Lymphocytes # (Auto) 2.2, Monocytes # (Auto) 0.6, Eosi nophils # (Auto) 0.2, Basophils # (Auto) 0.0, Sodium Level 140, Potassium Level 4.1, Chloride Level 112H, Carbon Dioxide Level 18L, Anion Gap 10, Blood Urea Nitrogen 14, Creatinine 1.35H, Estimat Glomerular Filtration Rate 38, BUN/Creatinine Ratio 10, Glucose Level 93, Calcium Level 9.5, Corrected Calcium 9.7, Total Bilirubin 0.5, Aspartate Amino Transf (AST/SGOT) 21, Alanine Aminotransferase (ALT/SGPT) 18, Alkaline Phosphatase 100, Total Protein 6.1L, Albumin 3.7 A/P: Assessment/Dx: History of fall with left clavicular fracture. History of CAD, positive cardiac enzymes, nuclear stress test done on 03/23/2019 did not show any significant ischemia or infarct. Echocardiogram showed normal LV function with no significant valvular heart disease. Previous TIA/CVA, being managed by Dr You. History of multiple CVA in the past. Hypercoagulable state workup has been negative (normal protein C, protein S and, antithrombin III; no factor V Leiden mutation; anticardiolipin antibody negative; factor II mutant was also negative). PAF, document on previous ILR tranmissions. Pt is since on Xarelto. We need to consider whether she is the right patient for oral anticoagulation considering the recent fall. I will defer to the outpatient distillery worker. Small PFO seen on [facility] March 2014 H/o leg claudication and peripheral arterial disease, last ALYSA was done in May 2015 and was within normal limits Hypertension, by history Hyperlipidemia, by history CYP 2C19 showed intermediate metabolizer. Mild bilateral carotid stenosis on carotid u/s of December 2017 CKD-3, followed and monitored by Dr. Travis. History of osteoarthritis, rheumatoid arthritis, and fibromyalgia. History of depression. History of elevated LPa Follow-up with outpatient distillery worker. If the patient does not have outpatient distillery worker, she can follow with either myself or Dr. Whiteehad. Both of us have seen her during hospitalization in the last 3 months. Plan: Nuclear stress test, negative for ischemia or infarct. Echocardiogram done 03/23/2019 showed normal LV function with no wall motion abnormalities. No significant valvular heart disease. PAF with high CHADSVASC score with previous TIA/CVA - therefore high risk patient for stroke with PAF. We need to consider whether she is the right patient for oral anticoagulation considering the recent fall. I will defer to the outpatient distillery worker. Thank you for your consultation. Please call me if you have any questions. Arthur Fields MD, FACP, FACC, FSCAI, FHRS, CCDS Interventional Cardiology Cardiac Electrophysiology Vascular Medicine and Endovascular Interventions Faye FIELDS MD Mar 25, 2019 15:41
[2019-03-25] MEDS: RIVAROXABAN 15 MG TABLET (XARELTO) PO SCH (17:56)
[2019-03-25] MEDS: LATANOPROST 0.005% (XALATAN) OPHTH SOLN 2.5 ML OU SCH (21:10)
[2019-03-25] MEDS: DICLOFENAC 1% GEL 100 GM (VOLTAREN) TUBE TOP PRN (21:10)
[2019-03-26 03:53] VITALS: BP 117/72
[2019-03-26] MEDS: DICLOFENAC 1% GEL 100 GM (VOLTAREN) TUBE TOP PRN ×2 (05:46→20:20)
[2019-03-26] MEDS: HYDROcodone/APAP 5 MG/325 MG (LORTAB) TAB PO PRN ×3 (07:50→20:18)
[2019-03-26 08:57] VITALS: BP 105/66
--- NOTE | 2019-03-26 08:58 | Cardiology Progress Note ---
Subjective Date Seen by Provider: Mar 26, 2019 Time Seen by Provider: 08:52 Subjective/Events-last exam Patient is sitting up in bed, c/o left clavicular pain. Denies any chest pain or dyspnea. Patient is in a chair, denied any chest pain, having mild constipation Review of Systems General: No Chills, No Night Sweats; Fatigue; No Malaise, No Appetite, No Other HEENT: No Head Aches, No Visual Changes, No Eye Pain, No Ear Pain, No Dysphasia, No Sinus Congestion, No Post Nasal Drip, No Sore Throat, No Other Pulmonary: No Dyspnea, No Cough, No Pleuritic Chest Pain, No Other Cardiovascular: No: Chest Pain, Palpitations, Orthopnea, Paroxysmal Noc. Dyspnea, Edema, Lt Headedness, Other Objective-Cardiology Exam Last Set of Vital Signs Vital Signs 03/26/19 08:57 Temp 36.8 Pulse 63 Resp 18 B/P (MAP) 105/66 (79) Pulse Ox 94 O2 Delivery Room Air Capillary Refill : Less Than 3 SecondsLess Than 3 Seconds I&O Intake and Output 03/26/19 00:00 Intake Total 1505 ml Output Total 1300 ml Balance 205 ml Intake Oral 1505 ml Output Urine Total 1300 ml # Voids 1 General: Alert, Oriented X3, Cooperative HEENT: Atraumatic, PERRLA Lungs: Clear to Auscultation, Normal Air Movement Heart: Regular Rate, Normal S1, Normal S2 Abdomen: Normal Bowel Sounds, Soft, No Tenderness Extremities: No Clubbing, No Edema, Normal Pulses Skin: No Rashes, No Significant Lesion Neuro: Cranial Nerves 3-12 NL Psych/Mental Status: Mental Status NL, Mood NL Results Lab Laboratory Tests Test 03/26/19 06:02 Range/Units Glucometer 98 70-110 MG/DL A/P-Cardiology Admission Diagnosis Left clavicular fracture PAF CVA HTN Assessment/Plan History of fall with left clavicular fracture. Left arm in sling. Patient has multiple falls, we had a long discussion about the increased risk of bleeding while on Xarelto. I am planning to stop Xarelto and start aspirin, there is slight increase risk of stroke, having a loop recorder showing very few episodes of atrial fibrillation that is short-lived. We will continue monitoring I'm adding antiarrhythmic medication Mildly elevated troponin on admission, nuclear stress test done on 03/23/2019 did not show any significant ischemia or infarct. Echocardiogram showed normal LV function with no significant valvular heart disease. Previous TIA/CVA. History of multiple CVA in the past. Hypercoagulable state workup has been negative (normal protein C, protein S and, antithrombin III; no factor V Leiden mutation; anticardiolipin antibody negative; factor II mutant was also negative). s/p LINq implantation revealing PAF, was started on Xarelto. PAF, document on previous ILR tranmissions. Starting Multaq and stopping Xarelto, using aspirin, monitoring closely. Patient has high risk of fall and bleeding. Reporting multiple falls, has significant bruising on the face and side. Small PFO seen on [facility] March 2014 H/o leg claudication and peripheral arterial disease, last ALYSA was done in May 2015 and was within normal limits Hypertension, controlled, continue to monitor blood pressure Hyperlipidemia, continue to monitor as outpatient. CYP 2C19 showed intermediate metabolizer. Mild bilateral carotid stenosis on carotid u/s of June 2018 CKD-3, followed and monitored by Dr. Travis. History of osteoarthritis, rheumatoid arthritis, and fibromyalgia. History of depression. History of elevated LPa Patient was seen and evaluated with Liz, examination performed, management plan was discussed, agree with the current scribed note, I made few changes to the note using Italic font Clinical Quality Measures DVT/VTE Risk/Contraindication: Risk Factor Score Per Nursin RFS Level Per Nursing on Admit: 2=Moderate Supervisory-Addendum Brief Supervisory Addendum Participated in pt care: history, MDM, physical Personally performed: exam, history, MDM Care discussed with: LIZ RODRIGUEZ Mar 26, 2019 08:58 DOMI MARTINEZ MD Mar 26, 2019 11:30
[2019-03-26] MEDS: MAGNESIUM OXIDE (MAG-OX)400 MG TAB PO SCH ×2 (10:46→20:19)
[2019-03-26] MEDS: GABAPENTIN 300 MG (NEURONTIN) CAP PO SCH ×2 (10:46→20:18)
[2019-03-26] MEDS: PANTOPRAZOLE 40 MG (PROTONIX) TAB PO SCH (10:46)
[2019-03-26] MEDS: meTOprolol SUCCINATE 100 MG (TOPROL XL) TAB PO SCH (10:46)
[2019-03-26] MEDS: amLODIPine 5 MG (NORVASC) TAB PO SCH (10:46)
[2019-03-26] MEDS: POLYETHYLENE GLYCOL 17 GM (MIRALAX) PACK PO SCH ×2 (10:47→20:20)
[2019-03-26] MEDS: buPROPion SR 150 MG (WELLBUTRIN SR) TAB PO SCH (10:48)
[2019-03-26] MEDS: ASPIRIN E.C. 81 MG (ECOTRIN) TAB PO SCH (10:54)
[2019-03-26] MEDS: BRIMONIDINE 0.2% (ALPHAGAN) OPHTH SOLN 5 ML BTL OU SCH ×2 (10:59→20:18)
[2019-03-26 12:00] VITALS: BP 106/68
--- NOTE | 2019-03-26 12:06 | Physical Therapy Daily Note ---
PT Daily Note-Current Subjective Patient is in bed and agrees to PT. No c/o. Pain Numeric Pain Scale: 0-No Pain Location: No Pain Reported Mental Status Patient Orientation: Normal For Age Transfers SCALE: Activities may be completed with or without assistive devices. 6-Ooeowblauu-rhptebs completes the activity by him/herself with no assistance from a helper. 5-Set-up or Clean-up Assistance-helper sets up or cleans up; patient completes activity. Butler assists only prior to or following the activity. 4-Supervision or Touching Assistance-helper provides verbal cues and/or touching /steadying and/or contact guard assistance as patient completes activity. Assistance may be provided throughout the activity or intermittently. 3-Partial/Moderate Assistance-helper does LESS THAN HALF the effort. Butler lifts, holds or supports trunk or limbs, but provides less than half the effort. 2-Substantial/Maximal Assistance-helper does MORE THAN HALF the effort. Butler lifts or holds trunk or limbs and provides more than half the effort. 6-Sntyvzqcv-rzulmk does ALL the effort. Patient does none of the effort to complete the activity. Or, the assistance of 2 or more helpers is required for the patient to complete the activity. If activity was not attempted, code reason: 7-Patient Refused. 9-Not Applicable-not attempted and the patient did not perform the activity before the current illness, exacerbation or injury. 10-Not Attempted due to Environmental Limitations-(lack of equipment, weather restraints, etc.). 88-Not Attempted due to Medical Conditions or Safety Concerns. Roll Left & Right (QC): 3 Sit to Lying (QC): 3 Lying to Sitting/Side of Bed(Q: 3 Sit to Stand (QC): 3 Chair/Hvn-ly-Tcord Xfer(QC): 3 Gait Training Does the Patient Walk?: Yes Distance: 200' Walk 10 feet (QC): 3 Walk 50 ft with 2 Turns(QC): 3 Walk 150 ft (QC): 3 Gait Assistive Device: Walker Jose Luis slow, steady gait sequence with skilled VC's for jose luis walker placement and forward momentum Assessment Patient up in recliner with needs met. Patient tolerated treatment well. PT Residential Goals Hedge Trimmer Goals PT Residential Goals Time Frame: Apr 07, 2019 Roll Left & Right (QC): 5 Sit to Lying (QC): 5 Lying-Sitting on Side/Bed(QC): 5 Sit to Stand (QC): 5 Chair/Sjb-ld-Tbdyq Xfer(QC): 5 Toilet Transfer (QC): 5 Car Transfer (QC): 5 Does the Patient Walk: Yes Walk 10 feet (QC): 5 Walk 50ft with 2 Turns (QC): 5 Walk 150 ft (QC): 5 Walking 10ft on Uneven Surface: 5 1 Step (curb) (QC): 5 4 Steps (QC): 5 12 Steps (QC): 9 PT Plan Treatment/Plan Treatment Plan: Continue Plan of Care Treatment Plan: Bed Mobility, Education, Functional Activity Sarah, Functional Strength, Gait, Safety, Therapeutic Exercise, Transfers Treatment Duration: Apr 07, 2019 Frequency: 6 times per week Estimated Hrs Per Day: .25 hour per day Patient and/or Family Agrees t: Yes Time/GCodes Time In: 1100 Time Out: 1112 Total Billed Treatment Time: 12 Total Billed Treatment 1 visit GT 12 min FELICITA SINGH PT Mar 26, 2019 12:06
[2019-03-26 12:45] LABS: CALCIUM 9.3 MG/DL (8.5-10.1); CREATININE SERUM 1.69 MG/DL (0.60-1.30); POTASSIUM 4.5 MMOL/L (3.6-5.0)
--- NOTE | 2019-03-26 12:46 | Progress Note ---
Subjective Subjective/Events-last exam Afebrile, states she is feeling okay but still having a fair amount of pain in her shoulder/arm. Objective Exam Last Set of Vital Signs Vital Signs Date Time Temp Pulse Resp B/P (MAP) Pulse Ox O2 Delivery O2 Flow Rate FiO2 03/26/19 08:57 36.8 63 18 105/66 (79) 94 Room Air Capillary Refill : Less Than 3 SecondsLess Than 3 Seconds I&O Intake and Output 03/26/19 00:00 Intake Total 1505 ml Output Total 1300 ml Balance 205 ml Intake Oral 1505 ml Output Urine Total 1300 ml # Voids 1 General: Alert, No Acute Distress Heart: Regular Rate Neuro: Normal Speech Psych/Mental Status: Mood NL Results/Procedures Lab Laboratory Tests 03/26/19 06:02: Glucometer 98 03/26/19 12:01: Assessment/Plan Assessment/Plan (1) Fall Status: Acute Assessment & Plan: PT/OT, placement for d/c. Qualifiers: Qualified Codes: W19.XXXA - Unspecified fall, initial encounter (2) Acute on chronic renal failure Status: Acute Assessment & Plan: Improving, follow. (3) Elevated troponin Status: Acute Assessment & Plan: Appreciate Cardiology recommendations, stress test okay on 03/23. (4) History of atrial fibrillation Status: Acute Assessment & Plan: On Xarelto for clot prophylaxis, appreciate Cardiology recommendations. (5) Closed left clavicular fracture Status: Acute Assessment & Plan: Sling in place. Qualifiers: Qualified Codes: S42.022A - Displaced fracture of shaft of left clavicle, initial encounter for closed fracture (6) DVT prophylaxis Status: Acute Assessment & Plan: On Xarelto. Clinical Quality Measures DVT/VTE Risk/Contraindication: Risk Factor Score Per Nursin RFS Level Per Nursing on Admit: 2=Moderate KENZIE COOPER MD Mar 26, 2019 12:46
--- NOTE | 2019-03-26 13:22 | Occupational Ther Daily Note ---
OT Current Status-Daily Note Subjective Pt alert, sitting in recliner. Pt agrees to therapy. No c/o pain at this time. Mental Status/Objective Patient Orientation: Person, Place, Time, Situation Attachments: IV ADL-Treatment Pt stated that she had already had bath today. Pt required assistance to open packages and containers. Able to use regular utensils to eat. Pt stated that she has difficulties with toileting (clothing manipulation) due to balance and only having use of L UE which she uses to balance self. Pt stated that she does need physical/verbal cues to position hemiwalker and body during functional transfers. After therapy, pt sitting in recliner with call light/phone in reach. All needs met in room. Therapy Code Descriptions/Definitions Functional Harnett Measure: 0=Not Assessed/NA 4=Minimal Assistance 1=Total Assistance 5=Supervision or Setup 2=Maximal Assistance 6=Modified [place]ett 3=Moderate Assistance 7=Complete IndependenceSCALE: Activities may be completed with or without assistive devices. 3-Kkjgywybbb-unzairl completes the activity by him/herself with no assistance from a helper. 5-Set-up or Clean-up Assistance-helper sets up or cleans up; patient completes activity. [place]xton assists only prior to or following the activity. 4-Supervision or Touching Assistance-helper provides verbal cues and/or touching/steadying and/or contact guard assistance as patient completes activity. Assistance may be provided throughout the activity or intermittently. 3-Partial/Moderate Assistance-helper does LESS THAN HALF the effort. Thaxton lifts, holds or supports trunk or limbs, but provides less than half the effort. 2-Substantial/Maximal Assistance-helper does MORE THAN HALF the effort. Thaxton lifts or holds trunk or limbs and provides more than half the effort. 0-Ljsbuqbui-pfatxg does ALL the effort. Patient does none of the effort to complete the activity. Or, the assistance of 2 or more helpers is required for the patient to complete the activity. If activity was not attempted, code reason: 7-Patient Refused. 9-Not Applicable-not attempted and the patient did not perform the activity before the current illness, exacerbation or injury. 10-Not Attempted due to Environmental Limitations-(lack of equipment, weather restraints, etc.). 88-Not Attempted due to Medical Conditions or Safety Concerns. OT Fpc Goals Fpc Goals Time Frame: Mar 30, 2019 Eating (QC): 6 Oral Hygiene (QC): 6 Toileting Hygiene (QC): 6 Shower/Bathe Self (QC): 4 Upper Body Dressing (QC): 4 Lower Body Dressing (QC): 4 On/Off Footwear (QC): 6 Additional Goals: 1-Demonstrate ADL Tasks, 2-Verbalize Understanding, 3- ImproveStrength/Sarah 1=Demonstrate adherence to instructed precautions during ADL tasks. 2=Patient will verbalize/demonstrate understanding of assistive devices/modifications for ADL. 3=Patient will improve strength/tolerance for activity to enable patient to perform ADL's. OT Education/Plan Problem List/Assessment Assessment: Decreased Activ Tolerance, Decreased Safety Aware, Decreased UE Strength, Impaired Coordination, Impaired Funct Balance, Impaired Self-Care Skills, Restricted Funct UE ROM Discharge Recommendations Plan/Recommendations: Continue POC Treatment Plan/Plan of Care Patient would benefit from OT for education, treatment and training to promote independence in ADL's, mobility, safety and/or upper extremity function for ADL's. Plan of Care: ADL Retraining, Caregiver Training, Functional Mobility, UE Funct Exercise/Act Treatment Duration: Mar 30, 2019 Frequency: 5 times per week Estimated Hrs Per Day: .25 hour per day Agreement: Yes Rehab Potential: Fair Time/GCodes Start Time: 12:43 Stop Time: 12:58 Total Time Billed (hr/min): 15 Billed Treatment Time 1 visit-ADL 1 (15 min) SAMMI BELL Mar 26, 2019 13:22
[2019-03-26] MEDS: DRONEDARONE TABLET 400 MG TABLET PO SCH ×2 (13:27→20:19)
--- NOTE | 2019-03-26 14:05 | NUR ---
Pastoral care visit.
[2019-03-26 16:06] VITALS: BP 98/53
--- NOTE | 2019-03-26 17:14 | NUR ---
Pt's Jewelry in room drawer was sent home with the daughter per pt request.
--- NOTE | 2019-03-26 17:23 | NUR ---
CM/SS: Visited with pt as to her plan for discharge Plan: Pt is ok to go a facility to get stronger and return home Summary: Pt given options and has chose [facility] for placement. Referral has been sent to [facility]. They are full and can not take pt till end of week. Todd suggest [facility] as their sister company. [facility] contacted and they can take the pt. on tomorrow until she can go to [facility] at end of week. They have requested admission at 2pm. Daughter notified about the acceptance and is ok to transport pt based on [facility] van is in the shop. Daughter will talk with pt tonight about the transition. Care Assessment to be completed and additional information faxed based on facility request.
[2019-03-26] MEDS: LATANOPROST 0.005% (XALATAN) OPHTH SOLN 2.5 ML OU SCH (20:18)
[2019-03-26 20:21] VITALS: BP 111/56
[2019-03-26 23:51] VITALS: BP 110/56
[2019-03-27 03:48] VITALS: BP 125/68
[2019-03-27 03:50] VITALS: BP 168/67
[2019-03-27] MEDS: HYDROcodone/APAP 5 MG/325 MG (LORTAB) TAB PO PRN (05:11)
--- NOTE | 2019-03-27 07:06 | Cardiology Progress Note ---
[facility] 03/27/19 7:06am: Subjective Date Seen by Provider: Mar 27, 2019 Time Seen by Provider: 07:04 Subjective/Events-last exam Pt was comfortably sleeping at the time of exam. Complains of mild L clavicular pain and chest wall pain which is reproducible upon palpation. Started first dose of Multaq yesterday; denies any side effects or symptoms after starting Multaq. Denies any chest pain or SOB but does report generalized weakness. Has not had a BM in 3 days despite taking Miralax yesterday. Review of Systems General: No Chills, No Appetite; Other (generalized weakness) HEENT: No Head Aches, No Visual Changes Pulmonary: No Dyspnea, No Cough Cardiovascular: No: Chest Pain, Palpitations Gastrointestinal: Constipation; No: Nausea, Vomiting, Diarrhea Genitourinary: No Dysuria, No Frequency Musculoskeletal: shoulder pain, arm pain Neurological: No: Numbness, Confusion Objective-Cardiology Exam Last Set of Vital Signs Vital Signs 03/27/19 03:50 Temp 36.6 Pulse 68 Resp 18 B/P (MAP) 168/67 (100) Pulse Ox 97 O2 Delivery Room Air Capillary Refill : Less Than 3 SecondsLess Than 3 Seconds I&O Intake and Output 03/27/19 00:00 Intake Total 1490 ml Output Total 1000 ml Balance 490 ml Intake Oral 1490 ml Output Urine Total 1000 ml # Voids 5 General: Alert, No Acute Distress HEENT: Atraumatic, PERRLA Lungs: Clear to Auscultation, Normal Air Movement Heart: Regular Rate, Normal S1, Normal S2 Abdomen: Normal Bowel Sounds, Soft, No Tenderness Extremities: No Clubbing, No Edema, Normal Pulses, Other (TTP of L clavicle, echymosis present over left clavicle) Skin: No Rashes, No Significant Lesion Neuro: Normal Speech, Cranial Nerves 3-12 NL Psych/Mental Status: Mood NL Results Lab Laboratory Tests 03/26/19 12:01 A/P-Cardiology Admission Diagnosis Left clavicular fracture PAF CVA HTN Assessment/Plan Mildly elevated troponin on admission, nuclear stress test done on 03/23/2019 did not show any significant ischemia or infarct. Echocardiogram showed normal LV function with no significant valvular heart disease. Previous TIA/CVA. History of multiple CVA in the past. Hypercoagulable state workup has been negative (normal protein C, protein S and, antithrombin III; no factor V Leiden mutation; anticardiolipin antibody negative; factor II mutant was also negative). s/p LINq implantation revealing PAF, was started on Xarelto; Xarelto was stopped on 03/26/2019. PAF, document on previous ILR tranmissions. Starting Multaq and stopping Xarelto, using aspirin, monitoring closely. Patient has high risk of fall and bleeding. Reporting multiple falls, has significant bruising on the face and side. No side effects reported so far since taking first dose of Multaq yesterday 03/26/2019. Small PFO seen on STAR March 2014 H/o leg claudication and peripheral arterial disease, last ALYSA was done in May 2015 and was within normal limits Hypertension, controlled, continue to monitor blood pressure Hyperlipidemia, continue to monitor as outpatient. CYP 2C19 showed intermediate metabolizer. Mild bilateral carotid stenosis on carotid u/s of June 2018 CKD-3, followed and monitored by Dr. Travis. History of osteoarthritis, rheumatoid arthritis, and fibromyalgia. History of depression. History of elevated LPa Clinical Quality Measures DVT/VTE Risk/Contraindication: Risk Factor Score Per Nursin RFS Level Per Nursing on Admit: 2=Moderate EMILIE MARTINEZ MD 03/27/19 1:17pm: Subjective Subjective/Events-last exam Patient is sitting in a chair, comfortable, denied any chest pain, still having constipation. No palpitation. Review of Systems Gastrointestinal: Constipation Objective-Cardiology Exam General: Alert, Oriented X3, Cooperative HEENT: Atraumatic, PERRLA Neck: Supple, No JVD, No Thyromegaly Lungs: Clear to Auscultation, Normal Air Movement Heart: Regular Rate, Normal S1, Normal S2, No Murmurs Abdomen: Normal Bowel Sounds, Soft, No Tenderness, No Hepatosplenomegaly, No Masses Extremities: No Clubbing, No Cyanosis, No Edema, Normal Pulses, No Tenderness/Swelling Skin: No Rashes, No Breakdown, No Significant Lesion Neuro: Normal Gait, Normal Tone, Sensation Intact Psych/Mental Status: Mental Status NL, Mood NL A/P-Cardiology Assessment/Plan Troponin elevation is probably due to small vessel disease, could be secondary to tachycardia. Conservative management is recommended at this time. Continue on current medication continue to monitor Continue to hold oral anticoagulation Supervisory-Addendum Brief Verification & Attestation Participated in pt care: history, MDM, physical Personally performed: exam, history, MDM, supervision of care Care discussed with: Medical Student Procedures: n/a Results interpretation: Verified all documentation Verification and Attestation of Medical Student E/M Service A medical student performed and documented this service in my presence. I reviewed and verified all information documented by the medical student and made modifications to such information, when appropriate. I personally performed the physical exam and medical decision making. Emilie Martinez, Mar 27, 2019,13:16 [facility] Mar 27, 2019 7:06 am EMILIE MARTINEZ MD Mar 27, 2019 1:17 pm
[2019-03-27] MEDS: meTOprolol SUCCINATE 100 MG (TOPROL XL) TAB PO SCH (08:45)
[2019-03-27] MEDS: GABAPENTIN 300 MG (NEURONTIN) CAP PO SCH (08:45)
[2019-03-27] MEDS: PANTOPRAZOLE 40 MG (PROTONIX) TAB PO SCH (08:45)
[2019-03-27] MEDS: amLODIPine 5 MG (NORVASC) TAB PO SCH (08:45)
[2019-03-27] MEDS: DRONEDARONE TABLET 400 MG TABLET PO SCH (08:45)
[2019-03-27] MEDS: MAGNESIUM OXIDE (MAG-OX)400 MG TAB PO SCH (08:45)
[2019-03-27] MEDS: buPROPion SR 150 MG (WELLBUTRIN SR) TAB PO SCH (08:45)
[2019-03-27] MEDS: BRIMONIDINE 0.2% (ALPHAGAN) OPHTH SOLN 5 ML BTL OU SCH (08:45)
[2019-03-27] MEDS: POLYETHYLENE GLYCOL 17 GM (MIRALAX) PACK PO SCH (08:46)
[2019-03-27 09:00] VITALS: BP 122/58
[2019-03-27] MEDS ORDERED: ASPIRIN E.C. 325 MG (ECOTRIN) TABLET PO SCH (09:00)
--- NOTE | 2019-03-27 10:50 | Occ Therapy Progress Note ---
Therapy Progress Note Attempted therapy at 0948. Pt sitting in chair, declined to participate at this time. Pt states she will be discharged today to SNF and declined to complete ADL activities or mobility. Assisted pt to reposition in chair per request. Pt sitting in chair with needs met and executive secretary social welfare present after session. 1, visit TELLO CHAIREZ OT Mar 27, 2019 10:50
--- NOTE | 2019-03-27 13:08 | NUR ---
CM/SS: Visit with pt as to Discharge Plan Plan: Pt will go to [facility] at 2pm today Summary: Facility notified (Justina Singh [phone], [employer]) that pt has not had her three midnights and has been here under observation. Facility is ok to take pt in spite of that. Pt will initially be admitted to [facility] and then when [facility] openings at end of week, she will move there. LEVEL I CARE assessment completed, and faxed to [facility] as well as [facility] per their request, even though pt will not go on a skilled bed. Daughter will transport pt to [facility] today at 2pm due to their van being in the repair shop.
[2019-03-27] MEDS ORDERED: DRON400T2 PO (14:19)
[2019-03-27] MEDS ORDERED: ATOR20TA66 PO (14:19)
[2019-03-27] MEDS ORDERED: POLY17PO31 PO (14:19)
[2019-03-27] MEDS ORDERED: ACHD5005 PO (14:19)
[2019-03-27] MEDS ORDERED: PANT40TA3 PO (14:19)
--- NOTE | 2019-03-27 14:21 | Discharge Instructions ---
Discharge [facility] Reconcile Patient Problems Problems Reviewed?: Yes Discharge Medications New Medications: Atorvastatin Calcium (Atorvastatin Calcium) 20 Mg Tablet 20 MG PO HS, #30 TAB Dronedarone HCl (Multaq) 400 Mg Tablet 400 MG PO BID, #60 TAB Hydrocodone Bit/Acetaminophen (Hydrocodone/Acetaminophen 5/325mg Tablet) 1 Tab Tab 1 TAB PO Q4H PRN for PAIN-MODERATE (5-7) for 30 Days, TAB Pantoprazole Sodium (Pantoprazole Sodium) 40 Mg Tablet.dr 40 MG PO DAILY, #30 TAB Polyethylene Glycol 3350 (Polyethylene Glycol 3350) 17 Gm Powd.pack 17 GM PO BID for 30 Days, EACH Continued Medications: Acetaminophen (Tylenol) 325 Mg Tablet 650 MG PO Q4H PRN for PAIN-MILD, TAB Amlodipine Besylate (Amlodipine Besylate) 5 Mg Tablet 5 MG PO DAILY, TAB Aspirin (Aspirin EC) 81 Mg Tablet.dr 81 MG PO DAILY, TAB Brimonidine Tartrate (Brimonidine Tartrate) 5 Ml Btl 1 DROP OU BID, EA Bupropion HCl (Bupropion Xl) 300 Mg Tab.er.24h 300 MG PO DAILY, TAB Diclofenac Sodium (Diclofenac Sodium) 100 Gm Gel..gram. 2 GM TOP QID PRN for JOINT PAIN, EA Gabapentin (Gabapentin) 300 Mg Capsule 300 MG PO BID, CAP Latanoprost (Latanoprost) 2.5 Ml Drops 1 DROP OU HS, EA Magnesium Oxide (Magnesium) 400 Mg Tablet 400 MG PO BID, TAB Metoprolol Succinate (Metoprolol Succinate) 100 Mg Tab.er.24h 100 MG PO DAILY, TAB Discontinued Medications: Atorvastatin Calcium (Atorvastatin Calcium) 80 Mg Tablet 80 MG PO DAILY, TAB Rivaroxaban (Xarelto) 15 Mg Tablet 15 MG PO 1700, TAB Patient Instructions Goal/Follow Up Appt: Lashaun will see you in the [place] Activity & Diet Discharge Diet: No Restrictions Activity as Tolerated: Yes Copy Copies To 1: Lashaun SPICER HOLLY R MD Mar 27, 2019 14:21
--- NOTE | 2019-03-27 14:22 | Discharge Summary ---
Diagnosis/Chief Complaint Date of Admission Mar 22, 2019 at 23:40 Date of Discharge 03/27/2019 Admission Diagnosis Admission Diagnosis Left Clavicle Fracture Elevated Troponin Fall Discharge Diagnosis See Above Problems/Diagnosis: (1) Fall Assessment & Plan: PT/OT, placement for d/c. 03/27: D/c today to [facility] Qualifiers: Qualified Codes: W19.XXXA - Unspecified fall, initial encounter Status: Acute (2) Acute on chronic renal failure Assessment & Plan: Improving, follow. 03/27: Will need repeat BMP in 1 week Status: Acute (3) Elevated troponin Assessment & Plan: Appreciate Cardiology recommendations, stress test okay on 03/23. Status: Acute (4) History of atrial fibrillation Assessment & Plan: On Xarelto for clot prophylaxis, appreciate Cardiology recommendations. 03/27: Changed Xarelto Status: Acute (5) Closed left clavicular fracture Assessment & Plan: Sling in place. 03/27: PT Qualifiers: Qualified Codes: S42.022A - Displaced fracture of shaft of left clavicle, initial encounter for closed fracture Status: Acute (6) DVT prophylaxis Assessment & Plan: On Xarelto. Status: Acute Discharge Summary-Simple/Stand Consultations Dr Fields: Cardiology Discharge Physical Examination Allergies: Coded Allergies: donepezil (Verified Allergy, Unknown, disoriented, stroke like symptoms, 03/23/19) fentanyl (Verified Adverse Reaction, Mild, 03/23/19) MAKES HER HALLUCINATE Vitals & I&Os Vital Sign - Last 12Hours Date Time Temp Pulse Resp B/P (MAP) Pulse Ox O2 Delivery O2 Flow Rate FiO2 03/27/19 09:00 36.4 62 18 122/58 (79) 98 Room Air Intake and Output 03/27/19 00:00 Intake Total 1140 ml Output Total 1000 ml Balance 140 ml General Appearance: Alert, Oriented X3, Cooperative, No Acute Distress Respiratory: Clear to Auscultation, Normal Air Movement Cardiovascular: Regular Rate, No Murmurs Abdominal: Normal Bowel Sounds, Soft, No Tenderness, No Masses Extremities: Other (ttp left shoulder, brusing present on shoulder and head) Neuro: Sensation Intact, Cranial Nerves 3-12 NL Psych/Mental Status: Mental Status NL, Mood NL Hospital Course Was the Problem List Reviewed?: Yes See final discharge diagnosis. Discussion & Recommendations 74 yo F that presented to hospital after fall found to have left clavicle fracture. Patient was also found to have acute renal failure that improved with IVFs. Patient is taking good PO. Recommendation for patient to go to NH. Discharge Condition at discharge stable Instructions to patient/family Please see electronic discharge instructions given to patient. Discharge Medications Reviewed and agree with Discharge Medication list on patient's Discharge Instruction sheet Clinical Quality Measures DVT/VTE Risk/Contraindication: Risk Factor Score Per Nursin RFS Level Per Nursing on Admit: 2=Moderate Copy Copies To 1: Lashaun WILLOUGHBY HOLLY R MD Mar 27, 2019 14:22
--- NOTE | 2019-03-27 14:49 | NUR ---
"RD ASSESSMENT PMHx: CAD; HTN; HLD; CKD(stage 3); RA; fibromyalgia PT INTERACTION: Pt was awake and pleasant during nutrition assessment. Pt states current appetite is good, and has been for some time. Note avg PO intake of 55% x2d, per chart review. Pt states following a regular diet at home and has no issues with chewing/swallowing food. Pt states no recent issues with n/v at this time. Pt states having some recent issues with constipation and that she believes her last BM was 03/24. Note pt currently on bowel regimen of miralax BID, per chart review. Pt states no recent wt changes. Note unable to determine recent wt hx, per chart review. ABNORMAL NUTRITION-RELATED LAB VALUES LOW: HIGH: Cl 111; cr 1.69; glu 157 Est. kcal needs: 7434-8110 kcal | 25-30 kcal/kg Est. Pro needs: 71-86 g Pro | 1.0-1.2 g Pro/kg PES STATEMENT: Inadequate oral intake (NI-2.1) related to constipation as evidenced by pt interview | avg PO intake of 55% x2d INTERVENTION: Note pt was preparing for discharge during assessment, or RD would recommend adding Ensure Enlive to meals BID for increased kcal intake. Continue with current diet order of Regular diet. MONITOR/EVALUATE: PO Intake; Plan of Care; Hydration Status; Weight Status; Lab Values Abel Gibson, MS, RD, LD"
== END 2019-03-27 14:54 ==
LOC: EDUNIT# 21:18 → ER 21:20 → 4TH 23:40 → UNDOADMOB 23:59 → 4TH 23:59 → UNDOADMOB 03-23 → 4TH 03-23
PROVIDERS: ADMIT Internal Medicine; ATTEND Family Medicine
DX: S42.022A Displaced fracture of shaft of left clavicle, initial encounter for closed fracture (principal); W19.XXXA Unspecified fall, initial encounter; I48.0 Paroxysmal atrial fibrillation; I25.10 Atherosclerotic heart disease of native coronary artery without angina pectoris; I65.23 Occlusion and stenosis of bilateral carotid arteries; M06.9 Rheumatoid arthritis, unspecified; M79.7 Fibromyalgia; F32.9 Major depressive disorder, single episode, unspecified; E78.5 Hyperlipidemia, unspecified; I12.9 Hypertensive chronic kidney disease with stage 1 through stage 4 chronic kidney disease, or unspecified chronic kidney disease; N18.3 Chronic kidney disease, stage 3 (moderate); I07.1 Rheumatic tricuspid insufficiency; Z79.01 Long term (current) use of anticoagulants; Z88.8 Allergy status to other drugs, medicaments and biological substances; Z86.73 Personal history of transient ischemic attack (TIA), and cerebral infarction without residual deficits; Z82.49 Family history of ischemic heart disease and other diseases of the circulatory system; Z83.3 Family history of diabetes mellitus; Z80.3 Family history of malignant neoplasm of breast; Z82.3 Family history of stroke; Z87.891 Personal history of nicotine dependence; Z79.82 Long term (current) use of aspirin; Z79.899 Other long term (current) drug therapy; Z79.891 Long term (current) use of opiate analgesic
CPT/HCPCS: 36415; 70450; 72125; 73000; 73030; 78452; 80048; 80053; 82550; 82962; 83880; 84484; 85025; 93005; 93017; 96361; 96374; G0378

== ENCOUNTER 2019-03-29 09:43 | Emergency (ER) | payer MEDICARE ==
[~2019-03-29] VITALS: Ht 162 cm; Wt 77.0 kg
[~2019-03-29 09:43] MED LIST changes: +BUPR300T51 PO; +DRON400T2 PO; -METO-395 PO; +MTP100TCR PO; +POLY17PO31 PO; +RIVA15TA PO; -TAMS0.4C98 PO; +TMSL.4C PO
--- NOTE | 2019-03-29 09:51 | NUR ---
INFORMED NURSE ELANA AT TIME OF REGISTRATION THAT PT IS HAVING DOUBLE VISION AND HAS HX OF STROKES
--- NOTE | 2019-03-29 10:00 | NUR ---
UNABLE TO INTIAL STROKE SCALE D/T OLD CVA AND FX L CLAVICAL
[2019-03-29 10:29] LABS: BASOPHILS % (AUTO) 1 % (0-10); EOSINOPHILS # (AUTO) 0.2 10^3/uL (0.0-0.3); EOSINOPHILS % (AUTO) 2 % (0-10); HEMATOCRIT 44 % (35-52); HEMOGLOBIN 13.4 G/DL (11.5-16.0); LYMPHOCYTES # (AUTO) 1.8 X 10^3 (1.0-4.0); LYMPHOCYTES % (AUTO) 28 % (12-44); MEAN CORPUSCULAR HEMOGLOBIN 30 PG (25-34); MEAN CORPUSCULAR HGB CONC 31 G/DL (32-36); MEAN CORPUSCULAR VOLUME 99 FL (80-99); MEAN PLATELET VOLUME 10.3 FL (7.4-10.4); MONOCYTES # (AUTO) 0.7 X 10^3 (0.0-1.0); MONOCYTES % (AUTO) 10 % (0-12); NEUTROPHILS # (AUTO) 3.8 X 10^3 (1.8-7.8); NEUTROPHILS % (AUTO) 59 % (42-75); PLATELET COUNT 162 10^3/uL (130-400); RED CELL DISTRIBUTION WIDTH 14.6 % (10.0-14.5); WHITE BLOOD COUNT 6.5 10^3/uL (4.3-11.0)
--- NOTE | 2019-03-29 10:30 | NUR ---
SEE LIST FOR CURRENT MEDS
[2019-03-29 10:55] LABS: BILIRUBIN,TOTAL 0.6 MG/DL (0.1-1.0); CALCIUM 10.1 MG/DL (8.5-10.1); CREATININE SERUM 1.73 MG/DL (0.60-1.30); POTASSIUM 4.4 MMOL/L (3.6-5.0); TOTAL PROTEIN 6.6 GM/DL (6.4-8.2)
[2019-03-29 11:01] LABS: FIBRIN DEGRADATION PRODUCTS 0.84 UG/ML (0.00-0.49); INR 0.9 (0.8-1.4); PROTHROMBIN TIME PATIENT 12.9 SEC (12.2-14.7)
--- NOTE | 2019-03-29 11:07 | Diagnostic Imaging Report ---
PROCEDURE: CT head wo r/o stroke. TECHNIQUE: Multiple contiguous axial images were obtained through the brain without the use of intravenous contrast. Auto Exposure Controls were utilized during the CT exam to meet ALARA standards for radiation dose reduction. INDICATION: Fall and weakness. Comparison is made with recent head CT from 03/22/2019. FINDINGS: Encephalomalacia left posterior parietal and right occipital region is stable. A high right frontal encephalomalacia is unchanged. Ventricular size is stable. There is periventricular hypodensity consistent with chronic microvascular ischemia. A small amount of swelling left frontal scalp is seen. No acute intra-axial or extra-axial hemorrhage is detected. Cisterns are patent. Visualized paranasal sinuses are clear. IMPRESSION: Stable chronic changes intracranially when compared with examination from one week earlier. No acute intracranial hemorrhage is detected. There is a small left frontal scalp hematoma. Dictated by: Dictated on workstation # [id number]
--- NOTE | 2019-03-29 11:18 | Diagnostic Imaging Report ---
INDICATION: Double vision. Stroke like symptoms. COMPARISON: 12/31/2018. FINDINGS: Single frontal view of the chest demonstrates mild cardiomegaly. Pulmonary vasculature is within normal limits. Note is made of calcified aortic atherosclerosis. The lungs are well aerated and clear. No large pleural effusion or pneumothorax is seen. The visualized osseous structures again show left clavicle fracture. IMPRESSION: 1. Mild cardiomegaly, but no evidence of failure or focal infiltrate. Dictated by: Dictated on workstation # [id number]
--- NOTE | 2019-03-29 11:18 | Diagnostic Imaging Report ---
INDICATION: Bilateral hip pain COMPARISON: None. FINDINGS: AP view of the pelvis and 2 dedicated radiographic views of each hip were obtained. There is no fracture, dislocation, bone destruction, or radiopaque foreign body. The visualized pelvic osseous structures and the SI joints demonstrate no acute fracture or dislocation. There is no bone destruction or radiopaque foreign body. The surrounding soft tissue structures are unremarkable. IMPRESSION: 1. No acute fracture or dislocation in the pelvis or either hip. Dictated by: Dictated on workstation # [id number]
--- NOTE | 2019-03-29 11:22 | Diagnostic Imaging Report ---
PROCEDURE: CT maxillofacial without contrast. TECHNIQUE: Multiple contiguous axial images were obtained through the facial bones without the use of intravenous contrast. Auto Exposure Controls were utilized during the CT exam to meet ALARA standards for radiation dose reduction. INDICATION: Fall left facial bruising. COMPARISON: None. FINDINGS: There is chronic deviation nasal septum. No acute fracture deformity is identified. The mandible is intact. Degenerative changes seen involving the temporomandibular joints. The orbits are symmetric. The paranasal sinuses and mastoids are clear. IMPRESSION: No acute fracture identified. Dictated by: Dictated on workstation # [id number]
[2019-03-29] MEDS ORDERED: NS IV 1000 ML 1,000 ML IV ONE (11:24)
[2019-03-29] MEDS ORDERED: HYDROcodone/APAP 5 MG/325 MG (LORTAB) TAB PO ONE (11:30)
[2019-03-29 12:23] LABS: BILIRUBIN,URINE NEGATIVE (NEGATIVE); CLARITY,URINE CLEAR; COLOR,URINE YELLOW; GLUCOSE, URINE (UA) NEGATIVE (NEGATIVE); KETONES,URINE NEGATIVE (NEGATIVE); LEUKOCYTE ESTERASE ,URINE NEGATIVE (NEGATIVE); NITRITE,URINE NEGATIVE (NEGATIVE); PROTEIN,URINE NEGATIVE (NEGATIVE)
[2019-03-29 12:34] LABS: BACTERIA,URINE NEGATIVE /HPF
--- NOTE | 2019-03-29 12:42 | ED General ---
General Chief Complaint: Neuro-Stroke Like Symptoms Stated Complaint: DOUBLE VISION Nursing Triage Note: PT TO ROOM 5 PER W/C PT STATES HAS BLURRED VISION THAT STARTED A COUPLE DAYS AGO. PT RELEASED FROM HOSP ON 03/27/19 POST FALL AND WAS [place]CHAR[place]. PT IS ALERT CO OF DOUBLE VISION THAT STARTED A COUPLE DAYS AGO. PT HAS SLING ON L ARM AND BRUISING NOTED ON L SIDE OF FACE. PT DAUGHTER AT SIDE Nursing Sepsis Screen: No Definite Risk Source of Information: Patient (LIMITED/POOR HISTORIAN), Family (DAUGHTER GIVES ALL INFORMATION ) History of Present Illness Date Seen by Provider: Mar 29, 2019 Time Seen by Provider: 09:57 Initial Comments PT ARRIVES VIA POV, WITH WHEELCHAIR AND ASSIST OUT OF VEHICLE AND WITH TRANSFER ONTO ER CART PT FELL ON TUESDAY AND WAS ADMITTED 03/22-03/27 PT HAS FRACTURE OF LEFT CLAVICLE AND IS WEARING A SLING. ( SLING IS ILL-FITTING AND IS NOT PROVIDING PROPER POSITIONING OF ARM, OR SIGNIFICANT RELIEF OF PAIN ) SINCE BEING DISMISSED FROM THE HOSPITAL, THE PT WAS ADMITTED TO [facility], AND IS PLANNING ON MOVING TO [facility] TODAY OR TOMORROW PT ALSO STRUCK HER LEFT FOREHEAD AND BROW WHEN SHE FELL PT HAD NEGATIVE HEAD CT AT THE TIME OF THE FALL PT HAS HAD 5-6 PRIOR STROKES, WITH LEFT SIDE WEAKNESS, AND PROBLEMS WITH VISION IN LEFT EYE. IS FOLLOWED BY DR. BAHENA, ULTRA SOUND TECHNICIAN FOR THIS PROBLEM PT HAS HISTORY OF FALLS PT STATES THAT SINCE SHE FELL THE LAST TIME, SHE HAS HAS HAD SOME BLURRY AND DOUBLE VISION--FOR A COUPLE OF DAYS, BUT IS NOT PRESENT NOW. PT CANNOT STATE IF THE BLURRY AND DOUBLE VISION IS FROM ONE EYE OR BOTH EYES NO ACTUAL LOSS OF VISION SYMPTOMS NO DIFFERENT TODAY NO HEADACHE NO DIZZINESS NO NECK PAIN NO SYNCOPE NO PARESTHESIAS OR MOTOR DEFICITS PT HAD BEEN ON XARELTO FOR CHRONIC, PAROXYSMAL ATRIAL FIBRILLATION, BUT IT WAS DC'D ON Tuesday03/24/18, AND PROTONIX WAS DC'D 2 DAYS AGO--PER DAUGHTER. PT HAD A NORMAL STRESS TEST ON 03/23/19 DURING RECENT HOSPITALIZATION DAUGHTER STATES THAT SHE HAD BEEN WALKING WITHOUT ANY DIFFICULTY PRIOR TO THIS MOST RECENT FALL, BUT SINCE THEN, SHE HAS BEEN MOSTLY WHEELCHAIR BOUND DUE TO PAIN, AND INABILITY TO USE HER LEFT ARM TO USE A WALKER. PCP: DR. LACY Allergies and Home Medications Allergies Coded Allergies: donepezil (Verified Allergy, Unknown, disoriented, stroke like symptoms, 03/23/19) fentanyl (Verified Adverse Reaction, Mild, 03/23/19) MAKES HER HALLUCINATE Home Medications Acetaminophen 325 Mg Tablet, 650 MG PO Q4H PRN for PAIN-MILD, (Reported) Amlodipine Besylate 5 Mg Tablet, 5 MG PO DAILY, (Reported) Aspirin 81 Mg Tablet.dr, 81 MG PO DAILY, (Reported) Atorvastatin Calcium 20 Mg Tablet, 20 MG PO HS Prescribed by: SALAS GALEANO on 03/27/191418 Brimonidine Tartrate 5 Ml Btl, 1 DROP OU BID, (Reported) Bupropion HCl 300 Mg Tab.er.24h, 300 MG PO DAILY, (Reported) Diclofenac Sodium 100 Gm Gel..gram., 2 GM TOP QID PRN for JOINT PAIN, (Reported) Dronedarone HCl 400 Mg Tablet, 400 MG PO BID Prescribed by: SALAS GALEANO on 03/27/191418 Gabapentin 300 Mg Capsule, 300 MG PO BID, (Reported) Hydrocodone Bit/Acetaminophen 1 Tab Tab, 1 TAB PO Q4H PRN for PAIN-MODERATE (5- 7) Prescribed by: SALAS GALEANO on 03/27/191418 Latanoprost 2.5 Ml Drops, 1 DROP OU HS, (Reported) Magnesium Oxide 400 Mg Tablet, 400 MG PO BID, (Reported) Metoprolol Succinate 100 Mg Tab.er.24h, 100 MG PO DAILY, (Reported) Pantoprazole Sodium 40 Mg Tablet.dr, 40 MG PO DAILY Prescribed by: SALAS GALEANO on 03/27/191418 Polyethylene Glycol 3350 17 Gm Powd.pack, 17 GM PO BID Prescribed by: SALAS GALEANO on 03/27/191418 Patient Home Medication List Home Medication List Reviewed: Yes Review of Systems Review of Systems Constitutional: no symptoms reported; No dizziness EENTM: see HPI, blurred vision, double vision Respiratory: no symptoms reported; No cough, No short of breath, No wheezing Cardiovascular: no symptoms reported; No chest pain Gastrointestinal: no symptoms reported; No nausea, No vomiting Genitourinary: no symptoms reported Musculoskeletal: see HPI Skin: no symptoms reported Psychiatric/Neurological: No Symptoms Reported; Denies Headache, Denies Numbness, Denies Paresthesia, Denies Seizure, Denies Tingling, Denies Weakness Hematologic/Lymphatic: See HPI, Easy Bruising Immunological/Allergic: no symptoms reported Past Zqdtarq-Rjrjtf-Emkupm Hx Patient Social History Alcohol Use: Occasionally Uses Recreational Drug Use: No Smoking Status: Former Smoker (1 PPD, QUIT > 20 YEARS AGO.) Type Used: Cigarettes Former Smoker, Quit: Dec 19, 1986 2nd Hand Smoke Exposure: No Recent Foreign Travel: No Contact w/Someone Who Travel: No Recent Infectious Disease Expo: No Recent Hopitalizations: No Immunizations Up To Date Tetanus Booster (TDap): Unknown PED Vaccines UTD: Yes Date of Pneumonia Vaccine: Mar 23, 2016 Date of Influenza Vaccine: Dec 21, 2018 Seasonal Allergies Seasonal Allergies: Yes Past Medical History Surgeries: Yes (LOOP RECORDER; JAW SURGERY; HIATAL HERNIA REPAIR X 2;BILAT CATARACTS;DENTAL) Abdominal, Appendectomy, Eye Surgery, Tonsillectomy Respiratory: Yes (CHRONIC DYSPNEA ON EXERTION) Currently Using CPAP: No Currently Using BIPAP: No Cardiac: Yes (LOOP RECORDER IN PLACE;PERIPHERAL VASCULAR DZ;CAROTID DZ;CLAUDICATION) Atrial Fibrillation, Coronary Artery Disease, Heart Murmur, High Cholesterol, Hypertension, Peripheral Vascular, Valvular Heart Disease Neurological: Yes (MULTIPLE CVA'S--AT LEAST 5 OR 6 CVA'S WITH LEFT SIDE WEAKNESS) Stroke, TIA 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 Disorders: No Female 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 Disorders: Denies 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 Sexually Transmitted Disease: No HIV/AIDS: No Genitourinary: Yes (BLADDER CONTROL PROBLEMS; CHRONIC RENAL FAILURE/INSUFFICIENCY) Renal Failure Gastrointestinal: Yes (HIATAL HERNIA SURGERY X 2; EGD/COLONOSCOPY) Gastroesophageal Reflux, Polyps, Hiatal Hernia, Ulcer Musculoskeletal: Yes Arthritis, Fibromyalgia, Rheumatoid Arthritis Endocrine: No HEENT: Yes (BILATERAL CATARACT SURGERY) Cataract, Glaucoma Hearing Impairment: Denies Cancer: No Did You Recieve Any Treatments: No Psychosocial: Yes Anxiety, Depression Integumentary: No Blood Disorders: Yes (ANEMIA) Adverse Reaction/Blood Tranf: No Family Medical History FH: CVA (cerebrovascular accident) G8 BROTHER G8 SISTER FH: breast cancer 19 MOTHER FH: cancer 19 FATHER Hypertension 19 MOTHER Physical Exam Vital Signs Vital Signs - First Documented 03/29/19 10:00 Temp 36.9 Pulse 55 Resp 19 B/P (MAP) 155/81 (105) Pulse Ox 95 Capillary Refill : Less Than 3 Seconds Height, Weight, BMI Height: 5'4.00" Weight: 170lbs. 1.6oz. 77.948219ge; 29.00 BMI Method:Stated General Appearance: No Apparent Distress, WD/WN HEENT: PERRL/EOMI, TMs Normal, Normal ENT Inspection, Pharynx Normal, Other (EXTENSIVE OLD / YELLOW BRUISING TO LEFT FOREHEAD AND PERIORBITAL AREA, WITH MO DERATE HEMATOMA TO LEFT FOREHEAD. ) Neck: Full Range of Motion, Normal Inspection, Non Tender, Supple Respiratory: Normal Breath Sounds, No Accessory Muscle Use, No Respiratory Distress, Other (EXTENSIVE OLD/ YELLOW BRUISING TO LEFT SHOULDER, CLAVICLE AND LEFT UPPER CHEST. DEFORMITY TO LEFT CLAVICLE. NO SUB Q AIR) Cardiovascular: No Edema, No JVD, Normal Peripheral Pulses, Systolic Murmur (3/6), Irregularly Irregular Gastrointestinal: Normal Bowel Sounds, No Organomegaly, No Pulsatile Mass, Non Tender, Soft Back: Normal Inspection, No CVA Tenderness, No Vertebral Tenderness Extremity: Normal Capillary Refill, Other (LEFT ARM IN SLING, VERY LIMITED ROM OF LEFT ARM. DISTAL MOTOR/SENSORY/VASCULAR INTACT.) Neurologic/Psychiatric: Alert, Oriented x3, No Motor/Sensory Deficits (EXCEPT FOR CHRONIC MILD LEFT SIDE WEAKNESS. 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 ) Skin: Normal Color, Warm/Dry, Ecchymosis Progress/Results/Core Measures Suspected Sepsis Recent Fever Within 48 Hours: No Infection Criteria Present: None New/Unexplained Altered Menta: No Sepsis Screen: No Definite Risk SIRS Temperature: Pulse: 55 Respiratory Rate: 19 Laboratory Tests 03/29/19 10:17: White Blood Count 6.5 Blood Pressure 155 /81 Mean: 105 Laboratory Tests 03/29/19 10:17: Creatinine 1.73H, INR Comment 0.9, Platelet Count 162, Total Bilirubin 0.6 Results/Orders Lab Results Laboratory Tests Test 03/29/19 10:17 03/29/19 12:15 Range/Units White Blood Count 6.5 4.3-11.0 10^3/uL Red Blood Count 4.41 4.35-5.85 10^6/uL Hemoglobin 13.4 11.5-16.0 G/DL Hematocrit 44 35-52 % Mean Corpuscular Volume 99 80-99 FL Mean Corpuscular Hemoglobin 30 25-34 PG Mean Corpuscular Hemoglobin Concent 31 L 32-36 G/DL Red Cell Distribution Width 14.6 H 10.0-14.5 % Platelet Count 162 130-400 10^3/uL Mean Platelet Volume 10.3 7.4-10.4 FL Neutrophils (%) (Auto) 59 42-75 % Lymphocytes (%) (Auto) 28 12-44 % Monocytes (%) (Auto) 10 0-12 % Eosinophils (%) (Auto) 2 0-10 % Basophils (%) (Auto) 1 0-10 % Neutrophils # (Auto) 3.8 1.8-7.8 X 10^3 Lymphocytes # (Auto) 1.8 1.0-4.0 X 10^3 Monocytes # (Auto) 0.7 0.0-1.0 X 10^3 Eosinophils # (Auto) 0.2 0.0-0.3 10^3/uL Basophils # (Auto) 0.0 0.0-0.1 10^3/uL Prothrombin Time 12.9 12.2-14.7 SEC INR Comment 0.9 0.8-1.4 Activated Partial Thromboplast Time 27 24-35 SEC D-Dimer 0.84 H 0.00-0.49 UG/ML Sodium Level 142 135-145 MMOL/L Potassium Level 4.4 3.6-5.0 MMOL/L Chloride Level 110 H 98-107 MMOL/L Carbon Dioxide Level 23 21-32 MMOL/L Anion Gap 9 5-14 MMOL/L Blood Urea Nitrogen 22 H 7-18 MG/DL Creatinine 1.73 H 0.60-1.30 MG/DL Estimat Glomerular Filtration Rate 29 BUN/Creatinine Ratio 13 Glucose Level 109 H 70-105 MG/DL Calcium Level 10.1 8.5-10.1 MG/DL Corrected Calcium 10.1 8.5-10.1 MG/DL Total Bilirubin 0.6 0.1-1.0 MG/DL Aspartate Amino Transf (AST/SGOT) 19 5-34 U/L Alanine Aminotransferase (ALT/SGPT) 17 0-55 U/L Alkaline Phosphatase 118 40-136 U/L Troponin I 0.062 H <0.028 NG/ML Total Protein 6.6 6.4-8.2 GM/DL Albumin 4.0 3.2-4.5 GM/DL Urine Color YELLOW Urine Clarity CLEAR Urine pH 7.0 5-9 Urine Specific [place] 1.015 L 1.016-1.022 Urine Protein NEGATIVE NEGATIVE Urine Glucose (UA) NEGATIVE NEGATIVE Urine Ketones NEGATIVE NEGATIVE Urine Nitrite NEGATIVE NEGATIVE Urine Bilirubin NEGATIVE NEGATIVE Urine Urobilinogen 0.2 < = 1.0 MG/DL Urine Leukocyte Esterase NEGATIVE NEGATIVE Urine RBC (Auto) NEGATIVE NEGATIVE Urine RBC NONE /HPF Urine WBC NONE /HPF Urine Crystals NONE /LPF Urine Bacteria NEGATIVE /HPF Urine Casts NONE /LPF Urine Mucus NEGATIVE /LPF Urine Culture Indicated NO My Orders Orders - BOBO LINN DO Cbc With Automated Diff (03/29/19 09:58) Protime With Inr (03/29/19 09:58) Partial Thromboplastin Time (03/29/19 09:58) Comprehensive Metabolic Panel (03/29/19 09:58) Fibrin Degradation Products (03/29/19 09:58) Troponin I (03/29/19 09:58) Ua Culture If Indicated (03/29/19 09:58) Chest 1 View, Ap/Pa Only (03/29/19 09:58) Ekg Tracing (03/29/19 09:58) Nothing By Mouth (03/29/19 Lunch) Accucheck Stat ONCE (03/29/19 09:58) Ed Iv/Invasive Line Start (03/29/19 09:58) Ed Iv/Invasive Line Start (03/29/19 09:58) Vital Signs Stroke Patient Q15M (03/29/19 09:58) Ct Head Wo-R/O Stroke (03/29/19 09:58) O2 (03/29/19 09:58) Intake & Output 06,14,22 (03/29/19 09:58) Monitor-Rhythm Ecg Trace Only (03/29/19 09:58) Dysphagia Screening Tool (03/29/19 09:58) Ct Maxillofacial Wo (03/29/19 10:09) Pelvis/[place]ips 5> Views (03/29/19 10:09) Ed Iv/Invasive Line Start (03/29/19 11:24) Ns Iv 1000 Ml (Sodium Chloride 0.9%) (03/29/19 11:24) Hydrocodone/Apap 5/325 Tablet (Lortab 5 (03/29/19 11:30) Straight Cath For Spec.-Adult (03/29/19 12:10) Shoulder Immoblizer (03/29/19 19:24) Medications Given in ED Vital Signs/I&O Capillary Refill : Less Than 3 Seconds Blood Pressure Mean: 105 Progress Note : Progress Note PT HAD NO VISION ABNORMALITIES DURING ENTIRE ER STAY ONLY COMPLAINT WAS PAIN TO LEFT COLLAR BONE--HAS NOT HAD ANY PAIN MEDICATION TODAY. DOSE OF HYDROCODONE GIVEN, WITH IMPROVEMENT IN PAIN NO OTHER COMPLAINTS FOR ENTIRE ER STAY. ECG Initial ECG Impression Date: Mar 29, 2019 Initial ECG Impression Time: 10:05 Initial ECG Rate: 60 Initial ECG Rhythm: Normal Sinus Initial ECG Impression: Nonspecific Changes, 1st Degree AV Block Diagnostic Imaging Comments CXR--NO ACUTE PROCESS, LEFT CLAVICLE FRACTURE IS UNCHANGED--PER RADIOLOGIST REPORT AT 1121 CT HEAD/MAXILLOFACIALS-NO ACUTE PROCESS, STABLE CHRONIC CHANGES, STABLE SMALL L EFT FRONTAL SCALP HEMATOMA--PER RADIOLOGIST REPORT AT 1129 XRAYS OF PELVIS AND HIPS--NO ACUTE PROCESS, PER RADIOLOGIST REPORT AT 1129 Departure Impression Primary Impression: Transient vision disturbance Additional Impressions: S/P RECENT FALL WITH LEFT FOREHEAD/PERIORBITAL CONTUSION S/P RECENT FALL WITH LEFT CLAVICLE FRACTURE HX OF CVA WITH CHRONIC LEFT SIDE WEAKNESS Disposition: 01 HOME, SELF-CARE Condition: Stable Departure-Patient Inst. Referrals: JUHI LACY MD (PCP/Family) Primary Care Physician Patient Instructions: Double Vision (DC) Add. Discharge Instructions: CONTINUE YOUR MEDICATIONS PRESCRIBED FOLLOW UP WITH DR. BAHENA THIS WEEK FOR FURTHER CARE All discharge instructions reviewed with patient and/or family. Voiced understanding. BOBO LINN DO Mar 29, 2019 12:42
[2019-03-29 13:02] VITALS: BP 136/68
== END 2019-03-29 13:02 | disposition home or self-care (01) ==
LOC: EDUNIT# 09:43 → ER 09:44
DX: H53.8 Other visual disturbances (principal); R53.1 Weakness; I48.0 Paroxysmal atrial fibrillation; I10 Essential (primary) hypertension; E78.00 Pure hypercholesterolemia, unspecified; I25.10 Atherosclerotic heart disease of native coronary artery without angina pectoris; I73.9 Peripheral vascular disease, unspecified; K21.9 Gastro-esophageal reflux disease without esophagitis; M79.7 Fibromyalgia; M06.9 Rheumatoid arthritis, unspecified; F41.9 Anxiety disorder, unspecified; F32.9 Major depressive disorder, single episode, unspecified; Z80.3 Family history of malignant neoplasm of breast; Z82.49 Family history of ischemic heart disease and other diseases of the circulatory system; Z86.73 Personal history of transient ischemic attack (TIA), and cerebral infarction without residual deficits; Z79.01 Long term (current) use of anticoagulants; Z88.8 Allergy status to other drugs, medicaments and biological substances; Z88.5 Allergy status to narcotic agent; Z79.82 Long term (current) use of aspirin; Z87.891 Personal history of nicotine dependence; Z90.49 Acquired absence of other specified parts of digestive tract; Z90.89 Acquired absence of other organs
CPT/HCPCS: 36415; 51701; 70450; 70486; 71045; 73523; 80053; 81000; 84484; 85025; 85379; 85610; 85730; 93005; 93041

== ENCOUNTER → 2019-07-31 | Outpatient (CLI) | payer MEDICARE ==
[~2019-07-31] MED LIST changes: -BUPR300T51 PO; +BUPR300T98 PO; -MONT10TA24 PO; +MONT10TA26 PO
--- NOTE | 2019-07-31 16:08 | Diagnostic Imaging Report ---
CLINICAL INDICATION: Patient with chronic kidney disease, stage III. EXAM: Ultrasound of both kidneys. COMPARISON: CT scan of the abdomen with and without contrast dated 09/07/2016. FINDINGS: There is a 1.5 cm x 1.6 cm partially exophytic hypoechoic structure involving the mid lateral aspect of the right kidney which appears to have a septation within it. There is no significant central Doppler flow. The patient was noted to have a partially exophytic lesion on the prior CT scan in this area which measured 11 mm. Slightly echogenic renal cortices are noted bilaterally which may be seen with chronic medical renal disease. There is no hydronephrosis. The right and left kidneys measure 7.8 cm and 9.3 cm respectively. The bladder is partially fluid-filled with no gross abnormality visualized. The bilateral ureteral jets are not seen on this exam. IMPRESSION: 1. There is a 1.6 cm complicated cystic structure involving the midportion of the right kidney which measures slightly larger on this exam than on the prior study. This should be closely followed on subsequent imaging. Followup ultrasound in 1 year is suggested. 2. Atrophic right kidney. There is hyperechogenicity involving both renal cortices which may be related to chronic medical renal disease. There is no hydronephrosis. Dictated by: Dictated on workstation # [id number]
== END ==
LOC: RAD 13:09
PROVIDERS: ATTEND Internal Medicine Nephrology
DX: I12.9 Hypertensive chronic kidney disease with stage 1 through stage 4 chronic kidney disease, or unspecified chronic kidney disease (principal); N18.3 Chronic kidney disease, stage 3 (moderate); N17.8 Other acute kidney failure; E21.1 Secondary hyperparathyroidism, not elsewhere classified; E53.8 Deficiency of other specified B group vitamins; N26.1 Atrophy of kidney (terminal)
CPT/HCPCS: 76770

== ENCOUNTER 2019-08-10 17:28 | Emergency (ER) | payer MEDICARE ==
[~2019-08-10] VITALS: Ht 165 cm; Wt 72.5 kg
[2019-08-10 17:49] LABS: BASOPHILS % (AUTO) 0 % (0-10); EOSINOPHILS # (AUTO) 0.2 10^3/uL (0.0-0.3); EOSINOPHILS % (AUTO) 3 % (0-10); HEMATOCRIT 42 % (35-52); HEMOGLOBIN 13.3 G/DL (11.5-16.0); LYMPHOCYTES % (AUTO) 26 % (12-44); MEAN CORPUSCULAR HEMOGLOBIN 30 PG (25-34); MEAN CORPUSCULAR HGB CONC 32 G/DL (32-36); MEAN CORPUSCULAR VOLUME 94 FL (80-99); MEAN PLATELET VOLUME 10.5 FL (7.4-10.4); MONOCYTES # (AUTO) 0.8 X 10^3 (0.0-1.0); MONOCYTES % (AUTO) 10 % (0-12); NEUTROPHILS # (AUTO) 4.6 X 10^3 (1.8-7.8); NEUTROPHILS % (AUTO) 60 % (42-75); PLATELET COUNT 143 10^3/uL (130-400); RED CELL DISTRIBUTION WIDTH 13.8 % (10.0-14.5); WHITE BLOOD COUNT 7.7 10^3/uL (4.3-11.0)
[2019-08-10 17:52] LABS: POTASSIUM 5.1 MMOL/L (3.6-5.0)
[2019-08-10 17:53] LABS: CALCIUM 9.8 MG/DL (8.5-10.1)
[2019-08-10 17:54] LABS: TOTAL PROTEIN 6.7 GM/DL (6.4-8.2)
[2019-08-10 17:56] LABS: BILIRUBIN,TOTAL 0.4 MG/DL (0.1-1.0)
--- NOTE | 2019-08-10 17:56 | NUR ---
ATTEMPT TO GET PT UP TO COMMODE ET PT DID NOT HAVE TO URINATE.
[2019-08-10 17:57] LABS: CREATININE SERUM 1.75 MG/DL (0.60-1.30)
[2019-08-10 18:00] LABS: MAGNESIUM 2.9 MG/DL (1.6-2.4)
--- NOTE | 2019-08-10 18:09 | ED Neurological Problem ---
General Chief Complaint: Neurological Problems Stated Complaint: SEIZURE Nursing Triage Note: ARRIVED VIA EMS FROM HOME AFTER A SEIZURE LASTING APPX 20 SEC. PT LAST SEIZURE WAS 20 YEARS PRIOR WHICH WAS MEDICATION RELATED. PT HAS NOT TAKEN HER PRISTIQ FOR TWO DAYS. KNOWN FALL ON TUESDAY ET UNKONWN IF SHE HIT HER HEAD. PT ALERT ET ORIENTED AT THIS TIME. PT HAS KNOWN WEAKNESS FROM A PREVIOUS STROKE. Nursing Sepsis Screen: No Definite Risk Source: patient, family, EMS, old records Exam Limitations: no limitations (ROZ AZAR MD) History of Present Illness Date Seen by Provider: August 10, 2019 Time Seen by Provider: 17:30 Initial Comments This 74-year-old woman presents to the emergency room via EMS after having a witnessed seizure like activity at home. She was sitting in her chair when she began to violently convulse in the left upper extremity. Convulsions spread through the rest of the body and lasted about 20-30 seconds. She did have loss of consciousness during the episode. Patient has a history of remote seizure many years ago but does not have seizures frequently. She has had multiple strokes in the past with the last stroke being early in 2018. She has left- sided deficits including weakness of the extremities and facial droop. Patient appeared post ictal to EMS with improving mental status in route. Family reports she does occasionally have some mild confusion and possibly early dem entia. Patient is noted to have had a fall unwitnessed on August 05. She does not know if she injured her head. She did complain of a sharp headache to a home healthcare worker yesterday. There was no injury with the seizure today as it occurred in a recliner. Patient's daughter notes she ran out of Pristiq 2 days ago. Blood sugar was 118 for EMS. Patient's daughter is Daniella Manuel [phone]. Patient is afebrile and denies any recent acute illness. (ROZ AZAR MD) Allergies and Home Medications Allergies Coded Allergies: donepezil (Verified Allergy, Unknown, disoriented, stroke like symptoms, 03/23/19) fentanyl (Verified Adverse Reaction, Mild, 03/23/19) MAKES HER HALLUCINATE Home Medications Acetaminophen 325 Mg Tablet, 650 MG PO Q4H PRN for PAIN-MILD, (Reported) Amlodipine Besylate 5 Mg Tablet, 5 MG PO DAILY, (Reported) Aspirin 81 Mg Tablet.dr, 81 MG PO DAILY, (Reported) Atorvastatin Calcium 20 Mg Tablet, 20 MG PO HS Prescribed by: SALAS GALEANO on 03/27/191418 Brimonidine Tartrate 5 Ml Btl, 1 DROP OU BID, (Reported) Bupropion HCl 300 Mg Tab.er.24h, 300 MG PO DAILY, (Reported) Desvenlafaxine 50 Mg Tab.er.24h, 50 MG PO DAILY Prescribed by: ANNY MERA on 08/10/192027 Diclofenac Sodium 100 Gm Gel..gram., 2 GM TOP QID PRN for JOINT PAIN, (Reported) Dronedarone HCl 400 Mg Tablet, 400 MG PO BID Prescribed by: SALAS GALEANO on 03/27/191418 Gabapentin 300 Mg Capsule, 300 MG PO BID, (Reported) Hydrocodone Bit/Acetaminophen 1 Tab Tab, 1 TAB PO Q4H PRN for PAIN-MODERATE (5- 7) Prescribed by: SALAS GALEANO on 03/27/191418 Latanoprost 2.5 Ml Drops, 1 DROP OU HS, (Reported) Magnesium Oxide 400 Mg Tablet, 400 MG PO BID, (Reported) Metoprolol Succinate 100 Mg Tab.er.24h, 100 MG PO DAILY, (Reported) Pantoprazole Sodium 40 Mg Tablet.dr, 40 MG PO DAILY Prescribed by: SALAS GALEANO on 03/27/191418 Polyethylene Glycol 3350 17 Gm Powd.pack, 17 GM PO BID Prescribed by: SALAS GALEANO on 03/27/191418 Patient Home Medication List Home Medication List Reviewed: Yes (ROZ AZAR MD) Review of Systems Review of Systems Constitutional: no symptoms reported Eyes: No Symptoms Reported Ears, Nose, Mouth, Throat: no symptoms reported Respiratory: no symptoms reported Cardiovascular: no symptoms reported Gastrointestinal: no symptoms reported Genitourinary: no symptoms reported : No Musculoskeletal: no symptoms reported Skin: no symptoms reported Psychiatric/Neurological: See HPI Endocrine: No Symptoms Reported Hematologic/Lymphatic: No Symptoms Reported (ROZ AZAR MD) Past Asysfsy-Nwnrrh-Tpuukf Hx Patient Social History Type Used: Cigarettes Former Smoker, Quit: Dec 19, 1986 2nd Hand Smoke Exposure: No Recent Foreign Travel: No Contact w/Someone Who Travel: No Recent Infectious Disease Expo: No Recent Hopitalizations: Yes (ROZ AZAR MD) Immunizations Up To Date Tetanus Booster (TDap): Unknown PED Vaccines UTD: Yes Date of Pneumonia Vaccine: Mar 23, 2016 Date of Influenza Vaccine: Dec 21, 2018 (ROZ AZAR MD) Seasonal Allergies Seasonal Allergies: Yes (ROZ AZAR MD) Past Medical History Surgeries: Yes (LOOP RECORDER; JAW SURGERY; HIATAL HERNIA REPAIR X 2;BILAT CATARACTS;DENTAL) Abdominal, Appendectomy, Eye Surgery, Tonsillectomy Respiratory: Yes (CHRONIC DYSPNEA ON EXERTION) Currently Using CPAP: No Currently Using BIPAP: No Cardiac: Yes (LOOP RECORDER IN PLACE;PERIPHERAL VASCULAR DZ;CAROTID DZ;CLAUDICATION) Atrial Fibrillation, Coronary Artery Disease, Heart Murmur, High Cholesterol, Hypertension, Peripheral Vascular, Valvular Heart Disease Neurological: Yes (MULTIPLE CVA'S--AT LEAST 5 OR 6 CVA'S WITH LEFT SIDE WEAKNESS) Stroke, TIA 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 Disorders: No Female 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 Disorders: Denies 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 Sexually Transmitted Disease: No HIV/AIDS: No Genitourinary: Yes (BLADDER CONTROL PROBLEMS; CHRONIC RENAL FAILURE/INSUFFICIENCY) Renal Failure (CKD) Gastrointestinal: Yes (HIATAL HERNIA SURGERY X 2; EGD/COLONOSCOPY) Gastroesophageal Reflux, Polyps, Hiatal Hernia, Ulcer Musculoskeletal: Yes Arthritis, Fibromyalgia, Rheumatoid Arthritis Endocrine: No HEENT: Yes (BILATERAL CATARACT SURGERY) Cataract, Glaucoma Hearing Impairment: Denies Cancer: No Did You Recieve Any Treatments: No Psychosocial: Yes Anxiety, Depression Integumentary: No Blood Disorders: Yes (ANEMIA) Adverse Reaction/Blood Tranf: No (ROZ AZAR MD) Family Medical History Reviewed Nursing Family Hx (ROZ AZAR MD) FH: CVA (cerebrovascular accident) G8 BROTHER G8 SISTER FH: breast cancer 19 MOTHER FH: cancer 19 FATHER Hypertension 19 MOTHER Physical Exam Vital Signs Vital Signs - First Documented 08/10/19 17:28 Temp 36.6 Pulse 65 Resp 16 B/P (MAP) 127/75 (92) Pulse Ox 92 O2 Delivery Room Air (ANNY MERA MD) Vital Signs Capillary Refill : Less Than 3 Seconds (ROZ AZAR MD) Height, Weight, BMI Height: 5'4.00" Weight: 170lbs. 1.6oz. 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 (moderate left facial droop), motor weakness (mild weakness of the left upper and lower extremities), other (disoriented to month) Crainal Nerves: normal hearing, normal speech, PERRL Skin: normal color, warm/dry (ROZ AZAR MD) Stroke NIH Stroke Scale Assessment Gaze: Normal (0), Total: Stroke Thrombolytic Exclusion Age 18 or Over: Yes Acute intenal hemorrhage: No History of CVA: Yes Uncontrolled Coagulation Defec: No Intracranial Hemorrhage: No Severe Hypertension: No GI or Bleed: No Subarachnoid Hemorrhage: No Intracranial Neoplasm/Aneurysm: No Oral Anticoagulants: Yes Surgery or Trauma: No Puncture of Non-Compressible V: No Recent CPR: No Diabetic Hemorrhagic Retinopat: No Organ Biopsy: No Recent Obstetric Delivery: No Glucose: No Significant Hepatic Dysfunctio: No NIH Stoke Scale >22: No Bacterial Endocarditis: No Pericarditis: No Improving Symptoms: No Platelets: No (ROZ AZAR MD) Progress/Results/Core Measures Results/Orders Lab Results Laboratory Tests Test 08/10/19 17:30 08/10/19 18:39 Range/Units White Blood Count 7.7 4.3-11.0 10^3/uL Red Blood Count 4.48 4.35-5.85 10^6/uL Hemoglobin 13.3 11.5-16.0 G/DL Hematocrit 42 35-52 % Mean Corpuscular Volume 94 80-99 FL Mean Corpuscular Hemoglobin 30 25-34 PG Mean Corpuscular Hemoglobin Concent 32 32-36 G/DL Red Cell Distribution Width 13.8 10.0-14.5 % Platelet Count 143 130-400 10^3/uL Mean Platelet Volume 10.5 H 7.4-10.4 FL Neutrophils (%) (Auto) 60 42-75 % Lymphocytes (%) (Auto) 26 12-44 % Monocytes (%) (Auto) 10 0-12 % Eosinophils (%) (Auto) 3 0-10 % Basophils (%) (Auto) 0 0-10 % Neutrophils # (Auto) 4.6 1.8-7.8 X 10^3 Lymphocytes # (Auto) 2.0 1.0-4.0 X 10^3 Monocytes # (Auto) 0.8 0.0-1.0 X 10^3 Eosinophils # (Auto) 0.2 0.0-0.3 10^3/uL Basophils # (Auto) 0.0 0.0-0.1 10^3/uL Sodium Level 142 135-145 MMOL/L Potassium Level 5.1 H 3.6-5.0 MMOL/L Chloride Level 110 H 98-107 MMOL/L Carbon Dioxide Level 20 L 21-32 MMOL/L Anion Gap 12 5-14 MMOL/L Blood Urea Nitrogen 30 H 7-18 MG/DL Creatinine 1.75 H 0.60-1.30 MG/DL Estimat Glomerular Filtration Rate 28 BUN/Creatinine Ratio 17 Glucose Level 112 H 70-105 MG/DL Calcium Level 9.8 8.5-10.1 MG/DL Corrected Calcium 9.8 8.5-10.1 MG/DL Magnesium Level 2.9 H 1.6-2.4 MG/DL Total Bilirubin 0.4 0.1-1.0 MG/DL Aspartate Amino Transf (AST/SGOT) 26 5-34 U/L Alanine Aminotransferase (ALT/SGPT) 23 0-55 U/L Alkaline Phosphatase 113 40-136 U/L Total Protein 6.7 6.4-8.2 GM/DL Albumin 4.0 3.2-4.5 GM/DL Urine Color YELLOW Urine Clarity CLEAR Urine pH 7.0 5-9 Urine Specific [place] 1.015 L 1.016-1.022 Urine Protein 1+ H NEGATIVE Urine Glucose (UA) NEGATIVE NEGATIVE Urine Ketones NEGATIVE NEGATIVE Urine Nitrite NEGATIVE NEGATIVE Urine Bilirubin NEGATIVE NEGATIVE Urine Urobilinogen 0.2 < = 1.0 MG/DL Urine Leukocyte Esterase NEGATIVE NEGATIVE Urine RBC (Auto) NEGATIVE NEGATIVE Urine RBC NONE /HPF Urine WBC 0-2 /HPF Urine Crystals NONE /LPF Urine Bacteria TRACE /HPF Urine Casts PRESENT /LPF Urine Hyaline Casts 2-5 H /LPF Urine Mucus SMALL H /LPF Urine Culture Indicated NO (ANNY MERA MD) My Orders Orders - ANNY MERA MD Levetiracetam Tablet (Keppra Tablet) (08/10/19 20:30) Venlafaxine Immediate Release (Effexor T (08/10/19 20:30) (ANNY MERA MD) Vital Signs/I&O 08/10/19 17:28 Temp 36.6 Pulse 65 Resp 16 B/P (MAP) 127/75 (92) Pulse Ox 92 O2 Delivery Room Air (ANNY MERA MD) Blood Pressure Mean: 92 Progress Progress Note : Time: 18:09 Progress Note Labs have been reviewed. There are no major abnormalities. UA and CT of the head are pending. Patient is alert at this time. There've been no further seizure-like episodes. Care of this patient is to be transferred to Dr. Mera. (ROZ AZAR MD) Progress Note : Progress Note 1810: Care assumed from Dr. Fernandez. Bedside report obtained and discussion of the events with the patient occurred. I agree with above. Pending CT and UA. Monitor patient. 1843: Patient back from CT with results pending. We will do a catheter UA to obtain urine. Monitor patient. 2030: Labs and CT are reviewed. No significant acute findings. I do believe this may be withdrawal from Pristiq. I did discuss the case with Dr. Parham. I do believe the patient is safe for discharge home as she has had no repeat seizures and is overall doing well. We will give dose of Keppra 500 mg by mouth as well as dose of venlafaxine 75 mg by mouth now and I will order one week of Pristiq prescription to cover until her mail order prescription gets in. This was discussed with the daughter who was in agreement with the plan. Patient is also in agreement with the plan. Discharged home with return precautions. Patient verbalize understanding instructions and agreement with plan. (ANNY MERA MD) Diagnostic Imaging Diagonstic Imaging: CT Plain Films/CT/US/NM/MRI: head Comments [facility] [place] [place] NAME: DANIELA WORLEY [facility] REC#: [id number] PT STATUS: REG ER : 1945 PHYSICIAN: ROZ AZAR MD ADMIT DATE: 08/10/19/ER Draft Date of Exam:08/10/19 CT HEAD WO PROCEDURE: CT head without contrast. TECHNIQUE: Multiple contiguous axial images were obtained through the brain without the use of intravenous contrast. Auto Exposure Controls were utilized during the CT exam to meet ALARA standards for radiation dose reduction. INDICATION: Seizure. COMPARISON: April 08, 2019. FINDINGS: No intracranial hemorrhage. Prominent regions of encephalomalacia are again noted throughout the brain, including within the high right frontal lobe, left parietotemporal lobe, and right occipital lobe. Ex vacuo dilatation of the left occipital and temporal horn is again noted. No midline shift, herniation, hydrocephalus, or extra-axial fluid collection. Periventricular and subcortical white matter hypodensities are again noted, most consistent with moderate background chronic small vessel white matter ischemic disease. No definite CT evidence of an acute ischemic infarction, though evaluation is limited secondary to advanced background chronic ischemic changes. The bilateral ocular lenses are absent. Otherwise, the orbits are unremarkable. The paranasal sinuses are clear. The calvarium and extracalvarial soft tissues are unremarkable. IMPRESSION: Stable examination demonstrating significant scattered regions of encephalomalacia likely secondary to chronic infarctions or trauma. No acute intracranial abnormality. Dictated on workstation # [id number] Dict: 08/10/19 1833 Trans: 08/10/19 1842 [facility] [id number] Interpreted by: DEEPAK ANDERSON MD Electronically signed by: (ANNY MERA MD) Departure Impression Primary Impression: Seizure Additional Impression: Medication withdrawal Qualified Codes: F19.939 - Other psychoactive substance use, unspecified with withdrawal, unspecified Disposition: 01 HOME, SELF-CARE Condition: Improved Departure-Patient Inst. Decision time for Depature: 20:34 (ANNY MERA MD) Referrals: JUHI LACY MD (PCP/Family) Primary Care Physician Patient Instructions: Seizures, Adult (DC) Add. Discharge Instructions: All discharge instructions reviewed with patient and/or family. Voiced understanding. Continue home medications as previously prescribed. Follow-up with your doctor early next week for recheck and further evaluation. Return for any seizure activity, weakness, breathing problems, numbness, speech problems, fever or other concerns as needed. Continue home medications as previously prescribed. Scripts Desvenlafaxine (Desvenlafaxine ER) 50 Mg Tab.er.24h 50 MG PO DAILY for 7 Days, #7 TAB 0 Refills Prov: ANNY MERA MD 08/10/19 Copy Copies To 1: JUHI LACY MD, JOSHUA T MD August 10, 2019 18:09 ANNY MERA MD August 10, 2019 18:44
--- NOTE | 2019-08-10 18:43 | Diagnostic Imaging Report ---
PROCEDURE: CT head without contrast. TECHNIQUE: Multiple contiguous axial images were obtained through the brain without the use of intravenous contrast. Auto Exposure Controls were utilized during the CT exam to meet ALARA standards for radiation dose reduction. INDICATION: Seizure. COMPARISON: April 08, 2019. FINDINGS: No intracranial hemorrhage. Prominent regions of encephalomalacia are again noted throughout the brain, including within the high right frontal lobe, left parietotemporal lobe, and right occipital lobe. Ex vacuo dilatation of the left occipital and temporal horn is again noted. No midline shift, herniation, hydrocephalus, or extra-axial fluid collection. Periventricular and subcortical white matter hypodensities are again noted, most consistent with moderate background chronic small vessel white matter ischemic disease. No definite CT evidence of an acute ischemic infarction, though evaluation is limited secondary to advanced background chronic ischemic changes. The bilateral ocular lenses are absent. Otherwise, the orbits are unremarkable. The paranasal sinuses are clear. The calvarium and extracalvarial soft tissues are unremarkable. IMPRESSION: Stable examination demonstrating significant scattered regions of encephalomalacia likely secondary to chronic infarctions or trauma. No acute intracranial abnormality. Dictated by: Dictated on workstation # [id number]
[2019-08-10 18:53] LABS: BILIRUBIN,URINE NEGATIVE (NEGATIVE); CLARITY,URINE CLEAR; COLOR,URINE YELLOW; GLUCOSE, URINE (UA) NEGATIVE (NEGATIVE); KETONES,URINE NEGATIVE (NEGATIVE); LEUKOCYTE ESTERASE ,URINE NEGATIVE (NEGATIVE); NITRITE,URINE NEGATIVE (NEGATIVE); PROTEIN,URINE 1+ (NEGATIVE)
[2019-08-10 19:01] LABS: BACTERIA,URINE TRACE /HPF; WBC,URINE 0-2 /HPF
--- OUTSIDE RECORDS SUMMARY | 2019-08-10 19:28 | XMS REPORT | Clinical Summary ---
Author Author [facility] Organization [facility] Address Unknown Phone Unavailable Care Team Providers Care Epic Willow Analyst Name Role Phone Hellen Tomas RN Unavailable Unavailable Oriana Watts MD PCP Source Comments Some departments are not documenting in the electronic medical record. If you d o not see the information that you expected, contact Release of Information in [facility] Information Management department at [phone] for further assistan ce in locating additional records.[facility] Allergies Not on File Medications Not on [...] Health Maintenance Due Date Last Done Comments DTAP/TDAP VACCINES (1 - 1963 Tdap) HEPATITIS C SCREENING 1963 PHYSICAL (COMPREHENSIVE) 1963 EXAM BREAST CANCER SCREENING 1985 COLORECTAL CANCER 1995 SCREENING SHINGLES RECOMBINANT 1995 VACCINE (1 of 2) OSTEOPOROSIS 2010 SCREENING/MONITORING PNEUMONIA (PPSV23) 2010 VACCINE (1 of 1 - PPSV23) INFLUENZA VACCINE 12/20/2019 Results Not on filefrom Last 3 Months
--- OUTSIDE RECORDS SUMMARY | 2019-08-10 19:31 | XMS REPORT ---
Author Author Cheryl GARAY [facility] Address [address] [place] [address] Care Team Providers Care Research Coordinator Name Role Phone MAYURI GARAY Unavailable PROBLEMS Type Condition ICD9-CM Code ITG54-ZM Code Onset Dates Condition S tatus SNOMED Code Problem GERD (gastroesophageal reflux disease) K21.9 Active 009771537 Problem Cerebrovascular disease I67.9 Active 89929273 Problem CVA (cerebral vascular accident) I63.9 Active 133579652 Problem Iron deficiency anemia, unspecified iron deficiency an emia type D50.9 Active 30699018 Problem Mild major depression F32.0 Active 83101541 Problem Hemiplegia, unspecified affecting left nondominant side G81.94 Active 165839990 Problem 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, unspecified vessel or lesion type I25.119 Active 58478484 Problem Atrial fibrillation I48.91 Active 23008214 Problem Hypoglycemia E16.2 Active 4361133 03 Problem Current moderate episode of major depressive disorder without prior episode F32.1 Active 70460864 Problem Essential hypertension I10 Active 32321752 ALLERGIES No Information ENCOUNTERS Encounter Location Date Diagnosis [facility] [address] [address] May, [facility] [address] [place], [place] [id number] May Mild major depression F32.0 and Essential hypertension I10 [facility] [address], [place] [id number] Apr Current moderate episode of major depressive disorder without prior episode F32.1 [facility] [address] [address] 10 Apr, 2019 Postoperative pain G89.18 [facility] [address], [place] [id number] Apr Closed nondisplaced fracture of left clavicle, unspecified part of clavicle, sequela S42.002S and Fall, initial encounter W19.XXXA [facility] [address], [place] [id number] Mar Closed displaced fracture of shaft of left clavicle, initial encounter S42.022A [place] [address] [address] Mar, [place] [address] [address] Mar, [place] [address] [address] Mar, [facility] [address] [place] [id number] Mar Closed nondisplaced fracture of left clavicle with routine healing, unspecified part of clavicle, subsequent encounter S42.002D and Diarrhea, unspecified type R19.7 [place] [address] [address] Mar, [place] [address] [address] Mar, [place] [address] [address] Mar, [place] [address] [address] Mar, Postoperative pain G89.18 [place] [address] [address] Mar, [place] [address] [address] Feb, Essential hypertension I10 ; Cerebrovasc ular disease I67.9 ; Petechiae R23.3 and Atrial fibrillation I48.91 [place] [address] [address] Jan, [place] [address] [address] Jan, [place] [address] [address] Dec, Vascular dementia without behavioral dis turbance F01.50 ; Mild major depression F32.0 and Encounter for immunization Z23 [place] [address] [address] Dec, Essential hypertension I10 [place] [address] [address] Dec, Essential hypertension I10 [place] [address] [address] Dec, Vascular dementia without behavioral dis turbance F01.50 [place] [address] [address] Nov, 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 and Diplopia H53.2 [place] [address] [address] Nov, [place] [address] [address] Nov, Essential hypertension I10 ; Cerebrovasc ular disease I67.9 ; Iron deficiency anemia, unspecified iron deficiency anemia type D50.9 and Mild major depression F32.0 [place] [address] [address] Oct, Right leg pain M79.604 [place] [address] [address] Oct, [place] [address] [address] Sep, [place] [address] [address] Sep, [place] [address] [address] Sep, [place] [address] [address] Sep, [facility] [address] [address] Sep, Muscle spasm M62.838 and Iron deficiency anemia, unspecified iron deficiency anemia type D50.9 [place] [address] [place] [address] Sep, Right leg pain M79.604 and Hemiplegia, u nspecified affecting left nondominant side G81.94 [facility] [address] [address] Sep, [facility] [address] [address] Sep, [facility] [address] [address] Sep, Headache R51 [facility] [address] [address] Sep, [facility] [address] [address] Aug, [facility] [address] [address] Aug, [facility] [address] [address] Aug, [facility] [address] [address] Aug, [facility] [address] [address] Aug, [facility] [address] [address] Aug, [facility] [address] [address] Aug, CVA (cerebral vascular accident) I63.9 ; Atrial fibrillation I48.91 and Essential hypertension I10 [facility] [address] [address] Aug, [facility] [address] [place] [id number] [place] [address] Aug, [facility] [address] [address] Aug, [facility] [address] [place] [id number] [place] [address] July, [facility] [address] [address] July, [facility] [address] [address] Jun, [place] [address] [address] Jun, Current moderate episode of major depres sive disorder without prior episode F32.1 [place] [address] [address] Jun, [facility] [employer] [address] [place] [id number] Jun, [place] [address] [address] May, [facility] [employer] [address] [place] [id number] May, Hypoglycemia E16.2 ; Left hemiplegia G81 .94 and Dysuria R30.0 [place] [address] [address] May, [facility] [employer] [facility] [address] [place] [id number] May, CVA (cerebral vascular accident) I63.9 ; Atrial fibrillation I48.91 and Headache R51 [place] [address] [address] Apr, [place] [address] [address] Mar, Coronary artery disease involving prairie band heart with angina pectoris, unspecified vessel or lesion type I25.119 [place] [address] [place] [address] [place] [address] Mar, Mild major depression F32.0 ; Cerebrovas cular disease I67.9 and GERD (gastroesophageal reflux disease) K21.9 [facility] [address] [place] [address] [id number] [place] [address] Mar, Coronary artery disease involving prairie band heart with angina pectoris, unspecified vessel or lesion type I25.119 [facility] [address] [place] [address] [place] [address] Jun, [facility] [address] [address] Jun, [facility] [address] [address] May, [facility] [address] [address] Apr, [facility] [address] [address] Apr, [facility] [address] [address] Mar, [facility] [address] [address] Feb, [facility] [address] [address] Feb, [facility] [address] [address] Jan, [facility] [address] [address] Jan, [facility] [address] [address] Jan, [facility] [address] [address] Dec, [facility] [address] [address] Dec, [facility] [address] [facility] [place] [address] Dec, IMMUNIZATIONS No Known Immunizations SOCIAL HISTORY Never Assessed REASON FOR VISIT lab orders PLAN OF CARE VITAL SIGNS MEDICATIONS Unknown Medications RESULTS No Results PROCEDURES No Known procedures INSTRUCTIONS MEDICATIONS ADMINISTERED No Known Medications MEDICAL (GENERAL) HISTORY Type Description Date 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 Medical History pt has had 4 strokes Medical History pt only has one kidney Medical History 2-part displaced fracture of surgical neck of left humerus, subsequent encounter for fracture with routine healing Medical History Glaucoma Medical History Chronic GERD Medical History Major depression, recurrent Medical History Hyperlipemia Medical History Benign essential hypertension Medical History AF (paroxysmal atrial fibrillation) Medical History Abnormal CBC Medical History Unspecified fall, subsequent encounter Medical History Peripheral vascular disease Medical History Anemia Medical History Generalized anxiety disorder Medical History Hemiplegia and hemiparesis f ollowing cerebral infarction affecting left dominant side Medical History Hemiplegia and hemiparesis f ollowing unspecified cerebrovascular disease affecting left non-dominant side Surgical History appendectomy 18years old Surgical History tonsillectomy 19 years old Surgical History hernia surgery x3 times Hospitalization History surgeries only Hospitalization History [facility] 12/2018
--- OUTSIDE RECORDS SUMMARY | 2019-08-10 19:34 | XMS REPORT | Continuity of Care Document ---
Demographics Preferred Language Unknown Marital Status Unknown Buddhism Affiliation Unknown Race Unknown Ethnic Group Unknown Author Organization Unknown Address Unknown Phone Unavailable Allergies Active Description Code Type Severity Reaction Onset Reported/Identified Relationship to Patient Clinical Status Yes NO KNOWN DRUG ALLERGIES UNKNOWN NO KNOWN DRUG ALLERG Yes NO KNOWN DRUG ALLERGIES UNKNOWN UNKNOWN Yes NKDA NKDA Mild N/A 09/01/2008 Yes No Known Drug Allergies [id number] Drug Allergy Unknown N/A 08/13/2016 Yes fentanyl [id number] Drug Allergy Mild N/A 03/23/2019 Yes donepezil [id number] Drug Allergy Unknown disoriented, st 03/23/2019 Yes donepezil [id number] Drug Allergy Unknown N/A 03/23/2019 Medications There is no data. Problems Date Dx Coded Attending Type Code Diagnosis Diagnosed By 02/17/1501 BAMBI WOODS, JUHI Ponce Ot F32 .9 MAJOR DEPRESSIVE DISORDER, SINGLE EPISOD 02/17/1501 BAMBI WOODS, JUHI Ponce Ot G81.90 HEMIPLEGIA, UNSPECIFIED AFFECTING UNSPEC 02/17/1501 BAMBI WOODS, JUHI Ponce Ot H26 .9 UNSPECIFIED CATARACT 02/17/1501 BAMBI WOODS, JUHI Ponce Ot H40 .9 UNSPECIFIED GLAUCOMA 02/17/1501 BAMBI WOODS, JUHI Ponce Ot I63 .9 CEREBRAL INFARCTION, UNSPECIFIED 02/17/1501 BAMBI WOODS, JUHI Ponce Ot M19.90 UNSPECIFIED OSTEOARTHRITIS, UNSPECIFIED 02/17/1501 BAMBI WOODS, JUHI Ponce Ot M81 .0 AGE-RELATED OSTEOPOROSIS W/O CURRENT PAT 02/17/1555 EDILMA BROWNING APRN Ot M54.5 LOW [...] V12.59 10/21/2010 Ot V57.3 06/22/2012 Ot 530.11 REF LUX ESOPHAGITIS 06/22/2012 Ot 553.3 DIAP HRAGMATIC HERNIA 06/22/2012 Ot 562.10 DIV ERTICULOSIS COLON (W/O MENT OF HEMORR 06/22/2012 Ot V12.72 PER ELIZABETH HISTORY OF COLONIC POLYPS 09/15/2012 CATRINA WOODS, ERNESTO Hernandez Ot 300.00 ANXIETY STATE NOS 09/15/2012 CATRINA WOODS, ERNESTO Hernandez Ot 530.11 REFLUX ESOPHAGITIS 10/26/2012 ERNESTO FRITZ MD Ot 530.11 REFLUX ESOPHAGITIS 10/26/2012 CATRINA WOODS, ERNESTO Hernandez Ot V45.89 POSTSURGICAL STATES NEC 03/22/2014 IWONA SINGH MD Ot 272.4 HYPERLIPIDEMIA NEC/NOS 03/22/2014 IWONA SIGNH MD Ot 342.90 UNSPEC HEMIPLEGIA HEMIPARESIS UNSPEC [...] S Ot V72.84 03/22/2014 LON CULVER, DAPHNIE K Ot 272.4 03/22/2014 LON CULVER DAPHNIE K Ot 397.0 03/22/2014 LON CULVER, DAPHNIE K Ot 401.9 03/22/2014 LON CULVER DAPHNIE K Ot 424.0 03/22/2014 LON CULVER DAPHNIE K Ot 786.09 03/22/2014 MINH WOODS, TELLO Razo Ot 585.3 03/26/2014 JERICA GILLIAM MD Ot 272.4 HYPERLIPIDEMIA NEC/NOS 03/26/2014 JERICA GILLIAM MD Ot 401.9 HYPERTENSION NOS 03/26/2014 JERICA GILLIAM MD Ot 438.2 0 LATE EFF-CEREBR DIS,HEMIPLEGIA AFFECTING 03/26/2014 JERICA GILLIAM MD Ot 438.8 3 FACIAL WEAKNESS 03/26/2014 JERICA GILLIAM MD Ot V15.8 2 HISTORY OF TOBACCO USE 03/26/2014 JERICA GILLIAM MD Ot V17.1 FAMILY HX-STROKE 03/26/2014 JERICA GILLIAM MD Ot V57.8 9 REHABILITATION PROC NEC 04/10/2014 DOMI MARTINEZ MD Ot 272. 4 HYPERLIPIDEMIA NEC/NOS 04/10/2014 DOMI MARTINEZ MD Ot 403. 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 0 MITRAL VALVE DISORDER 04/10/2014 DOMI MARTINEZ MD Ot 434. 91 CEREBRAL ART OCCLUSION NOS W CEREBRAL IN 04/10/2014 DOMI MARTINEZ MD Ot 585. 9 CHRONIC KIDNEY DISEASE, UNSPECIFIED 04/10/2014 DOMI MARTINEZ MD Ot 714. 0 RHEUMATOID ARTHRITIS 04/10/2014 DOMI MARTINEZ MD Ot 729. 1 MYALGIA AND MYOSITIS NOS 04/10/2014 DOMI MARTINEZ MD Ot 745. 5 SECUNDUM ATRIAL SEPT DEF 04/10/2014 DOMI MARTINEZ MD Ot V15. 82 HISTORY OF TOBACCO USE 04/10/2014 DOMI MARTINEZ MD Ot V58. 69 OT MED,LT,CURRENT USE 04/16/2014 TELLO WILKINSON MD Ot V12.54 PERSONAL HX OF TIA, CEREBRAL INFARCTION 04/16/2014 MINH WOODS, TELLO Dung Ot V57.1 PHYSICAL THERAPY NEC 04/23/2014 MINH WOODS, TELLO Dung Ot 438.89 04/23/2014 MINH WOODS, TELLO Razo Ot V57.21 04/25/2014 MINH WOODS, TELLO Razo Ot 438.89 OTH LATE EFFECT-CEREBROVASCULAR DISEASE 04/25/2014 MINH WOODS, TELLO Razo Ot V57.21 ENCOUNTER FOR OCCUPATIONAL THERAPY 06/25/2015 [...] S Ot V72.84 06/25/2015 LON PA, DAPHNIE K Ot 272.4 06/25/2015 LON PA, DAPHNIE K Ot 397.0 06/25/2015 LON PA, DAPHNIE K Ot 401.9 06/25/2015 LON PA, DAPHNIE K Ot 424.0 06/25/2015 LON PA, DAPHNIE K Ot 786.09 06/25/2015 MINH WOODS, TELLO Razo Ot 585.3 06/26/2015 DOMI MARTINEZ MD Ot E78. 5 06/26/2015 DOMI MARTINEZ MD Ot I10 06/26/2015 DOMI MARTINEZ MD Ot I63. 9 06/26/2015 DOMI MARTINEZ MD Ot I73. 9 07/08/2015 DOMI MARTINEZ MD Ot E78. 5 HYPERLIPIDEMIA, UNSPECIFIED 07/08/2015 DOMI MARTINEZ MD Ot I10 ESSENTIAL (PRIMARY) HYPERTENSION 07/08/2015 DOMI MARTINEZ MD Ot I63. 9 CEREBRAL INFARCTION, UNSPECIFIED 07/08/2015 DOMI MARTINEZ MD Ot I73. 9 PERIPHERAL VASCULAR DISEASE, UNSPECIFIED 08/11/2016 NADIA BRATHOLOMEW MD Ot R63.4 ABNORMAL WEIGHT LOSS 08/11/2016 NADIA BARTHOLOMEW MD Ot Z01.81 8 ENCOUNTER FOR OTHER PREPROCEDURAL EXAMIN 08/11/2016 NADIA BARTHOLOMEW MD, Ot Z86.01 0 PERSONAL HISTORY OF COLONIC POLYPS 08/11/2016 NADIA [...] WEIGHT LOSS 08/13/2016 NADIA BARTHOLOMEW MD Ot Z86.01 0 PERSONAL HISTORY OF COLONIC POLYPS 08/13/2016 NADIA [...] WEIGHT LOSS 08/18/2016 NADIA BARTHOLOMEW MD Ot Z86.01 0 PERSONAL HISTORY OF COLONIC POLYPS 08/18/2016 NADIA [...] WEIGHT LOSS 09/05/2016 NADIA BARTHOLOMEW MD Ot Z86.01 0 PERSONAL HISTORY OF COLONIC POLYPS 09/05/2016 NADIA BARTHOLOMEW MD Ot Z87.11 PERSONAL HISTORY OF PEPTIC ULCER DISEASE 09/06/2016 Ot 715.34 LOC OSTEOARTH NOS-HAND 09/06/2016 Ot 272.4 HYPE RLIPIDEMIA NEC/NOS 09/06/2016 Ot 401.9 HYPE RTENSION NOS 09/06/2016 Ot 429.2 ASCVD 09/06/2016 Ot 786.2 COUGH 09/06/2016 Ot V15.82 HIS TORY OF TOBACCO USE 09/06/2016 Ot V72.84 EXA M PRE- OPERATIVE NOS 09/06/2016 ERNESTO FRITZ MD Ot V72.84 EXAM PRE-OPERATIVE NOS 09/06/2016 CATRINA WOODS, ERNESTO Hernandez Ot 530.11 REFLUX ESOPHAGITIS 09/06/2016 ERNESTO FRITZ MD Ot 553.3 DIAPHRAGMATIC HERNIA 09/06/2016 ERNESTO FRITZ MD Ot 429.3 CARDIOMEGALY 09/06/2016 CATRINA WOODS, ERNESTO Hernandez Ot 530.81 ESOPHAGEAL REFLUX 09/06/2016 ERNESTO FRITZ MD Ot V72.63 PRE-PROCEDURAL LABORATORY EXAMINATION 09/06/2016 ERNESTO FRITZ MD Ot V72.81 YDIN-UVA-KMPRRKCGR CARDIOVASCULAR 09/06/2016 ERNESTO FRITZ MD Ot V72.83 EXAM PRE-OPERATIVE NEC 09/06/2016 ERNESTO FRITZ MD Ot V74.8 SCREEN-BACTERIAL DIS NEC 09/06/2016 ERNESTO FRITZ MD Ot V72.84 EXAM PRE-OPERATIVE NOS 09/06/2016 ERNESTO FRITZ MD Ot 530.81 ESOPHAGEAL [...] (MODER 09/06/2016 MICHELLE WOODS, DOMI Munoz Ot E78. 5 HYPERLIPIDEMIA, UNSPECIFIED 09/06/2016 MICHELLE WOODS, DOMI Munoz Ot I10 ESSENTIAL (PRIMARY) HYPERTENSION 09/06/2016 MICHELLE WOODS, DOMI Munoz Ot I63. 9 CEREBRAL INFARCTION, UNSPECIFIED 09/06/2016 MICHELLE WOODS, DOMI Munoz Ot I73. 9 PERIPHERAL VASCULAR DISEASE, UNSPECIFIED 09/07/2016 SANDY WILLIS DO Ot D64.9 ANEMIA, UNSPECIFIED 09/07/2016 SANDY WILLIS DO Ot E78.5 HYPERLIPIDEMIA, UNSPECIFIED 09/07/2016 SANDY WILLIS DO Ot E86.0 DEHYDRATION 09/07/2016 SANDY WILLIS DO Ot F41.9 ANXIETY DISORDER, UNSPECIFIED 09/07/2016 EDWIN WILLIS DOI Ot I10 ESSENTIAL (PRIMARY) HYPERTENSION 09/07/2016 SANDY [...] LOSS 09/07/2016 SANDY WILLIS DO Ot Z79.82 DETENTION (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 OF ASPIRIN 09/07/2016 SANDY WILLIS DO Ot Z79.89 9 OTHER INVERFORM MACHINE OPERATOR (CURRENT) DRUG THERAPY 09/07/2016 SANDY WILLIS DO Ot Z86.73 PRSNL HX OF TIA (TIA), AND CEREB INFRC W 09/07/2016 SANDY WILLIS DO, Ot Z87.89 1 PERSONAL HISTORY OF NICOTINE DEPENDENCE 11/30/2016 WILKINSON, TELLO W 252.01 PRIMARY HYPERPARATHYROIDISM 11/30/2016 WILKINSON, TELLO W E21.0 PRIMARY HYPERPARATHYROIDISM 11/30/2016 WILKINSON, TELLO W 252.01 PRIMARY HYPERPARATHYROIDISM 11/30/2016 WILKINSONGEORGETTETELLO W 729.1 MYALGIA AND MYOSITIS, UNSPECIFIED 11/30/2016 TELLO WILKINSON 780.79 OTHER MALAISE AND FATIGUE 11/30/2016 TELLO WILKINSON 780.8 GENERALIZED HYPERHIDROSIS 11/30/2016 WILKINSON, TELLO W E21.0 PRIMARY HYPERPARATHYROIDISM 11/30/2016 TELLO WILKINSON M79.7 FIBROMYALGIA 11/30/2016 TELLO WILKINSON R54 AGE- RELATED PHYSICAL DEBILITY 11/30/2016 TELLO WILKINSON R61 GENERALIZED HYPERHIDROSIS 11/30/2016 WILKINSON, TELLO W 252.01 PRIMARY HYPERPARATHYROIDISM 11/30/2016 WILKINSON, TELLO W 729.1 MYALGIA AND MYOSITIS, UNSPECIFIED 11/30/2016 MINH TELLO W 780.79 OTHER MALAISE AND FATIGUE 11/30/2016 WILKINSON, TELLO W 780.8 GENERALIZED HYPERHIDROSIS 11/30/2016 WILKINSON, TELLO W E21.0 PRIMARY HYPERPARATHYROIDISM 11/30/[address]E M79.7 FIBROMYALGIA 11/30/2016 TELLO WILKINSON R54 AGE- RELATED PHYSICAL DEBILITY 11/30/2016 TELLO WILKINSON R61 GENERALIZED HYPERHIDROSIS 11/30/2016 W 252.01 SONY MAKAYLA HYPERPARATHYROIDISM 11/30/2016 W 272.4 OTHE R AND UNSPECIFIED HYPERLIPIDEMIA 11/30/2016 W 429.9 HEAR T DISEASE, UNSPECIFIED 11/30/2016 W 715.90 OST EOARTHROSIS, UNSPECIFIED WHETHER GENERALIZED OR LOCALIZED, INVOLVING UNSPECIFIED SITE 11/30/2016 W 729.1 MYAL VALARIE AND MYOSITIS, UNSPECIFIED 11/30/2016 W 780.79 OTH ER MALAISE AND FATIGUE 11/30/2016 W 780.8 GENE RALIZED HYPERHIDROSIS 11/30/2016 W E21.0 PRIM LINDA HYPERPARATHYROIDISM 11/30/2016 W E78.5 HYPE RLIPIDEMIA, UNSPECIFIED 11/30/2016 W I51.9 HEAR T DISEASE, UNSPECIFIED 11/30/2016 W M19.90 UNS PECIFIED OSTEOARTHRITIS, UNSPECIFIED SITE 11/30/2016 W M79.7 FIBR OMYALGIA 11/30/2016 W R54 AGE-RE LATED PHYSICAL DEBILITY 11/30/2016 W R61 GENERA LIZED HYPERHIDROSIS 11/30/[address] W 252.01 PRIMARY HYPERPARATHYROIDISM 11/30/[address] W 729.1 MYALGIA AND MYOSITIS, UNSPECIFIED 11/30/2016 MINH TELLO W 780.79 OTHER MALAISE AND FATIGUE 11/30/2016 WILKINSON TELLO W 780.8 GENERALIZED HYPERHIDROSIS 11/30/[address] W E21.0 PRIMARY HYPERPARATHYROIDISM 11/30/2016 WILKINSON, TELLO W M79.7 FIBROMYALGIA 11/30/[address] W R54 AGE- RELATED PHYSICAL DEBILITY 11/30/2016 TELLO WILKINSON W R61 GENERALIZED HYPERHIDROSIS 01/03/2017 W 272.4 OTHE R AND UNSPECIFIED HYPERLIPIDEMIA 01/03/2017 W 401.0 STEPHANIE GNANT ESSENTIAL HYPERTENSION 01/03/2017 W 414.01 COR ONARY ATHEROSCLEROSIS OF [place] CORONARY ARTERY 01/03/2017 W E78.5 HYPE RLIPIDEMIA, UNSPECIFIED 01/03/2017 W I10 ESSENT IAL (PRIMARY) HYPERTENSION 01/03/2017 W I25.10 ATH EROSCLEROTIC HEART DISEASE OF [place] CORONARY ARTERY WITHOUT ANGINA PECTORIS 01/03/2017 A V70.0 ROUT INE GENERAL MEDICAL EXAMINATION AT A HEALTH CARE FACILITY 01/03/2017 A Z00.01 ENC [facility] FOR GENERAL ADULT MEDICAL EXAMINATION WITH ABNORMAL FINDINGS 01/04/2017 LAZARO ALEXANDER SANDY Ot 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, CIGARETTES, UNCOMPL 01/04/2017 LAZARO ALEXANDER SANDY Ot F41.9 ANXIETY DISORDER, UNSPECIFIED 01/04/2017 LAZARO ALEXANDER SANDY Ot G93.89 OTHER SPECIFIED DISORDERS OF BRAIN 01/04/2017 LAZARO ALEXANDER SANDY Ot H40.9 UNSPECIFIED GLAUCOMA 01/04/2017 EDWIN WILLIS DOI Ot H53.2 DIPLOPIA 01/04/2017 LAZARO ALEXANDER SANDY Ot H53.47 HETERONYMOUS BILATERAL FIELD DEFECTS 01/04/2017 SANDY WILLIS DO Ot H53.8 OTHER VISUAL DISTURBANCES 01/04/2017 SANDY WILLIS DO Ot I10 ESSENTIAL (PRIMARY) HYPERTENSION 01/04/2017 SANDY WILLIS DO Ot I35.8 OTHER NONRHEUMATIC AORTIC VALVE DISORDER 01/04/2017 SANDY WILLIS DO Ot I63.9 CEREBRAL INFARCTION, UNSPECIFIED 01/04/2017 SANDY WILLIS DO Ot I69.39 8 OTHER SEQUELAE OF CEREBRAL INFARCTION 01/04/2017 SANDY WILLIS DO Ot I69.89 8 OTHER SEQUELAE OF OTHER CEREBROVASCULAR 01/04/2017 SANDY WILLIS DO Ot J30.2 OTHER SEASONAL ALLERGIC RHINITIS 01/04/2017 SANDY WILLIS DO Ot K21.9 GASTRO-ESOPHAGEAL REFLUX DISEASE WITHOUT 01/04/2017 EDWIN WILLIS DOI Ot M19.91 PRIMARY OSTEOARTHRITIS, UNSPECIFIED SITE 01/04/2017 SANDY WILLIS DO Ot R01.1 CARDIAC MURMUR, UNSPECIFIED 01/04/2017 SANDY WILLIS DO Ot R29.70 2 NIHSS SCORE 2 01/04/2017 SANDY WILLIS DO Ot Z79.02 DETENTION (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 OF ANTITHROMBOTI 01/04/2017 SANDY WILLIS DO Ot Z86.73 PRSNL HX OF TIA (TIA), AND CEREB INFRC W 01/04/2017 SANDY WILLIS DO Ot Z87.11 PERSONAL HISTORY OF PEPTIC ULCER DISEASE 03/07/2017 TELLO WILKINSON W 272.4 OTHER AND UNSPECIFIED HYPERLIPIDEMIA 03/07/2017 TELLO WILKINSON W 401.0 MALIGNANT ESSENTIAL HYPERTENSION 03/07/2017 TELLO WILKINSON W E78.5 HYPERLIPIDEMIA, UNSPECIFIED 03/07/2017 TELLO WILKINSON W I10 ESSENTIAL (PRIMARY) HYPERTENSION 03/07/2017 W 252.0 HYPE RPARATHYROIDISM 03/07/2017 W 272.4 OTHE R AND UNSPECIFIED HYPERLIPIDEMIA 03/07/2017 W 401.0 STEPHANIE GNANT ESSENTIAL HYPERTENSION 03/07/2017 W E21.3 HYPERPARATHYROIDISM, UNSPECIFIED 03/07/2017 W E78.5 HYPE RLIPIDEMIA, UNSPECIFIED 03/07/2017 W I10 ESSENT IAL (PRIMARY) HYPERTENSION 03/07/2017 A V70.0 ROUT INE GENERAL MEDICAL EXAMINATION AT A HEALTH CARE FACILITY 03/07/2017 A Z00.01 [facility] WITH ABNORMAL FINDINGS 03/07/2017 TELLO WILKINSON W 272.4 OTHER AND UNSPECIFIED HYPERLIPIDEMIA 03/07/2017 TELLO WILKINSON W 401.0 MALIGNANT ESSENTIAL HYPERTENSION 03/07/2017 TELLO WILKINSON W E78.5 HYPERLIPIDEMIA, UNSPECIFIED 03/07/2017 TELLO WILKINSON W I10 ESSENTIAL (PRIMARY) HYPERTENSION 03/09/2017 TELLO WILKINSON MD L Ot I1 0 ESSENTIAL (PRIMARY) HYPERTENSION 03/09/2017 TELLO WILKINSON MD Ot I1 0 ESSENTIAL (PRIMARY) HYPERTENSION 03/16/2017 TELLO WILKINSON MD L Ot I1 0 ESSENTIAL (PRIMARY) HYPERTENSION 03/29/2017 TELLO WILKINSON MD Ot I12.9 HYPERTENSIVE CHRONIC KIDNEY DISEASE W ST 03/29/2017 TELLO WILKINSON MD Ot N18.9 CHRONIC KIDNEY DISEASE, UNSPECIFIED 05/17/2017 Ot 272.4 HYPE RLIPIDEMIA NEC/NOS 05/17/2017 Ot 401.9 HYPE RTENSION NOS 05/17/2017 Ot 429.2 ASCVD 05/17/2017 Ot 786.2 COUGH 05/17/2017 Ot V15.82 HIS TORY OF TOBACCO USE 05/17/2017 Ot V72.84 EXA M PRE- OPERATIVE NOS 05/17/2017 CATRINA WOODS, ERNESTO Hernandez Ot V72.84 EXAM PRE-OPERATIVE NOS 05/17/2017 CATRINA WOODS, ERNESTO Hernandez Ot 530.11 REFLUX ESOPHAGITIS 05/17/2017 CATRINA WOODS, ERNESTO Hernandez Ot 553.3 DIAPHRAGMATIC HERNIA 05/17/2017 CATRINA WOODS, ERNESTO Hernandez Ot 429.3 CARDIOMEGALY 05/17/2017 ERNESTO FRITZ MD Ot 530.81 ESOPHAGEAL REFLUX 05/17/2017 ERNESTO FRITZ MD Ot V72.63 PRE-PROCEDURAL LABORATORY EXAMINATION 05/17/2017 ERNESTO FRITZ MD Ot V72.81 [id number] CARDIOVASCULAR 05/17/2017 ERNESTO FRITZ MD Ot V72.83 EXAM PRE-OPERATIVE NEC 05/17/2017 ERNESTO FRITZ MD Ot V74.8 SCREEN-BACTERIAL DIS NEC 05/17/2017 ERNESTO FRITZ MD Ot V72.84 EXAM PRE-OPERATIVE NOS 05/17/2017 CATRINA WOODS, ERNESTO S Ot 530.81 ESOPHAGEAL REFLUX 05/17/2017 ERNESTO FRITZ MD S Ot V45.89 POSTSURGICAL STATES NEC 05/17/2017 ERNESTO FRITZ MD Ot V72.84 EXAM PRE-OPERATIVE NOS 05/17/2017 CATRINA WOODS, ERNESTO S Ot 530.11 REFLUX ESOPHAGITIS 05/17/2017 ERNESTO FRITZ MD Ot V45.89 POSTSURGICAL STATES NEC 05/17/2017 ERNESTO FRITZ MD Ot V72.84 EXAM PRE-OPERATIVE NOS 05/17/2017 DAPHNIE ODELL K Ot 272.4 HYPERLIPIDEMIA NEC/NOS 05/17/2017 DAPHNIE ODELL Ot 397.0 TRICUSPID VALVE DISEASE 05/17/2017 DAPHNIE ODELL K Ot 401.9 HYPERTENSION NOS 05/17/2017 DAPHNIE ODELL K Ot 424.0 MITRAL VALVE DISORDER 05/17/2017 DAPHNIE ODELL K Ot 786.09 RESPIRATORY ABNORM NEC 05/17/2017 MINH WOODS, TELLO Razo Ot 585.3 CHRONIC KIDNEY DISEASE, STAGE III (MODER 05/17/2017 DOMI MARTINEZ MD Ot E78. 5 HYPERLIPIDEMIA, UNSPECIFIED 05/17/2017 DOMI MARTINEZ MD Ot I10 ESSENTIAL (PRIMARY) HYPERTENSION 05/17/2017 DOMI MARTINEZ MD Ot I63. 9 CEREBRAL INFARCTION, UNSPECIFIED 05/17/2017 DOMI MARTINEZ MD Ot I73. 9 PERIPHERAL VASCULAR DISEASE, UNSPECIFIED 05/17/2017 MINH WOODS, TELLO Razo Ot I12.9 HYPERTENSIVE CHRONIC KIDNEY DISEASE W ST 05/17/2017 MINH WOODS, TELLO L Ot N18.9 CHRONIC KIDNEY DISEASE, UNSPECIFIED 05/19/2017 DOMI MARTINEZ MD Ot E78. 5 HYPERLIPIDEMIA, UNSPECIFIED 05/19/2017 DOMI MARTINEZ MD Ot F32. 9 MAJOR DEPRESSIVE DISORDER, SINGLE EPISOD 05/19/2017 DOMI MARTINEZ MD Ot I10 ESSENTIAL (PRIMARY) HYPERTENSION 05/19/2017 DOMI MARTINEZ MD Ot I63. 9 CEREBRAL INFARCTION, UNSPECIFIED 05/19/2017 DOMI MARTINEZ MD Ot I65. 23 OCCLUSION AND STENOSIS OF BILATERAL [place] 05/19/2017 DOMI MARTINEZ MD Ot Z79.899 OTHER DETENTION (CURRENT) DRUG THERAPY 05/19/2017 DOMI MARTINEZ MD Ot Z87.891 PERSONAL HISTORY OF NICOTINE DEPENDENCE 05/24/2017 DOMI MARTINEZ MD Ot E78. 5 HYPERLIPIDEMIA, UNSPECIFIED 05/24/2017 DOMI MARTINEZ MD Ot F32. 9 MAJOR DEPRESSIVE DISORDER, SINGLE EPISOD 05/24/2017 DOMI MARTINEZ MD Ot I10 ESSENTIAL (PRIMARY) HYPERTENSION 05/24/2017 DOMI MARTINEZ MD Ot I63. 9 CEREBRAL INFARCTION, UNSPECIFIED 05/24/2017 DOMI MARTINEZ MD Ot I65. 23 OCCLUSION AND STENOSIS OF BILATERAL [place] 05/24/2017 DOMI MARTINEZ MD Ot Z79.899 OTHER DETENTION (CURRENT) DRUG THERAPY 05/24/2017 DOMI MARTINEZ MD Ot Z87.891 PERSONAL HISTORY OF NICOTINE DEPENDENCE 06/08/2017 DOMI MARTINEZ MD Ot E78. 5 HYPERLIPIDEMIA, UNSPECIFIED 06/08/2017 DOMI MARTINEZ MD Ot F32. 9 MAJOR DEPRESSIVE DISORDER, SINGLE EPISOD 06/08/2017 DOMI MARTINEZ MD Ot I10 ESSENTIAL (PRIMARY) HYPERTENSION 06/08/2017 DOMI MARTINEZ MD Ot I63. 9 CEREBRAL INFARCTION, UNSPECIFIED 06/08/2017 DOMI MARTINEZ MD Ot I65. 23 OCCLUSION AND STENOSIS OF BILATERAL [place] 06/08/2017 DOMI MARTINEZ MD Ot Z79.899 OTHER DETENTION (CURRENT) DRUG THERAPY 06/08/2017 DOMI MARTINEZ MD Ot Z87.891 PERSONAL HISTORY OF NICOTINE DEPENDENCE 11/26/2017 ERIK MENDEZ MD Ot D64 .9 ANEMIA, UNSPECIFIED 11/26/2017 ERIK MENDEZ MD Ot F41 .9 ANXIETY DISORDER, UNSPECIFIED 11/26/2017 ERIK MENDEZ MD Ot I10 ESSENTIAL (PRIMARY) HYPERTENSION 11/26/2017 ERIK MENDEZ MD Ot M41.86 OTHER FORMS OF SCOLIOSIS, LUMBAR REGION 11/26/2017 ERIK MENDEZ MD Ot M54 .5 LOW BACK PAIN 11/26/2017 ERIK MENDEZ MD Ot M54 .6 PAIN IN THORACIC SPINE 11/26/2017 ERIK MENDEZ MD Ot Z79.02 DETENTION (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 OF ANTITHROMBOTI 11/26/2017 ERIK MENDEZ MD Ot Z79.82 DETENTION (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 OF ASPIRIN 11/26/2017 ERIK MENDEZ MD Ot Z80 .3 FAMILY HISTORY OF MALIGNANT NEOPLASM OF 11/26/2017 ERIK MENDEZ MD Ot Z86.73 PRSNL HX OF TIA (TIA), AND CEREB INFRC W 11/26/2017 ERIK MENDEZ MD Ot Z87.19 PERSONAL HISTORY OF OTHER DISEASES OF TH 11/26/2017 ERIK MENDEZ MD Ot Z87.891 PERSONAL HISTORY OF NICOTINE DEPENDENCE 11/26/2017 ERIK MENDEZ MD Ot Z90.89 ACQUIRED ABSENCE OF OTHER ORGANS 11/29/2017 ERIK MENDEZ MD, Ot D64 .9 ANEMIA, UNSPECIFIED 11/29/2017 ERIK MENDZE MD Ot F41 .9 ANXIETY DISORDER, UNSPECIFIED 11/29/2017 ERIK MENDEZ MD Ot I10 ESSENTIAL (PRIMARY) HYPERTENSION 11/29/2017 ERIK MENDEZ MD Ot M41.86 OTHER FORMS OF SCOLIOSIS, LUMBAR REGION 11/29/2017 ERIK MENDEZ MD Ot M54 .5 LOW BACK PAIN 11/29/2017 ERIK MENDEZ MD Ot M54 .6 PAIN IN THORACIC SPINE 11/29/2017 ERIK MENDEZ MD Ot Z79.02 DETENTION (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 OF ANTITHROMBOTI 11/29/2017 ERIK MENDEZ MD Ot Z79.82 DETENTION (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 OF ASPIRIN 11/29/2017 ERIK MENDEZ MD Ot Z80 .3 FAMILY HISTORY OF MALIGNANT NEOPLASM OF 11/29/2017 ERIK MENDEZ MD Ot Z86.73 PRSNL HX OF TIA (TIA), AND CEREB INFRC W 11/29/2017 ERIK MENDEZ MD Ot Z87.19 PERSONAL HISTORY OF OTHER DISEASES OF TH 11/29/2017 ERIK MENDEZ MD Ot Z87.891 PERSONAL HISTORY OF NICOTINE DEPENDENCE 11/29/2017 ERIK MENDEZ MD Ot Z90.89 ACQUIRED ABSENCE OF OTHER ORGANS 12/02/2017 ERIK MENDEZ MD Ot D64 .9 ANEMIA, UNSPECIFIED 12/02/2017 ERIK MENDEZ MD Ot F41 .9 ANXIETY DISORDER, UNSPECIFIED 12/02/2017 ERIK MENDEZ MD Ot I10 ESSENTIAL (PRIMARY) HYPERTENSION 12/02/2017 ERIK MENDEZ MD Ot M41.86 OTHER FORMS OF SCOLIOSIS, LUMBAR REGION 12/02/2017 ERIK MENDEZ MD Ot M54 .5 LOW BACK PAIN 12/02/2017 ERIK MENDEZ MD Ot M54 .6 PAIN IN THORACIC SPINE 12/02/2017 ERIK MENDEZ MD Ot Z79.02 DETENTION (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 OF ANTITHROMBOTI 12/02/2017 ERIK MENDEZ MD Ot Z79.82 DETENTION (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 OF ASPIRIN 12/02/2017 ERIK MENDEZ MD Ot Z80 .3 FAMILY HISTORY OF MALIGNANT NEOPLASM OF 12/02/2017 ERIK MENDEZ MD Ot Z86.73 PRSNL HX OF TIA (TIA), AND CEREB INFRC W 12/02/2017 ERIK MENDEZ MD Ot Z87.19 PERSONAL HISTORY OF OTHER DISEASES OF TH 12/02/2017 ERIK MENDEZ MD Ot Z87.891 PERSONAL HISTORY OF NICOTINE DEPENDENCE 12/02/2017 ERIK MENDEZ MD Ot Z90.89 ACQUIRED ABSENCE OF OTHER ORGANS 12/16/2017 EDILMA BROWNING APRN Ot M54.5 LOW BACK PAIN 12/16/2017 EDILMA BROWNING CASH MANAGEMENT SPECIALIST Ot R26.89 OTHER ABNORMALITIES OF GAIT AND MOBILITY 12/18/2017 EDILMA BROWNING CASH MANAGEMENT SPECIALIST Ot M54.5 LOW BACK PAIN 12/18/2017 EDILMA BROWNING CASH MANAGEMENT SPECIALIST Ot R26.89 OTHER ABNORMALITIES OF GAIT AND MOBILITY 12/19/2017 EDILMA BROWNING CASH MANAGEMENT SPECIALIST Ot M54.5 LOW BACK PAIN 12/19/2017 EDILMA BROWNING CASH MANAGEMENT SPECIALIST Ot R26.89 OTHER ABNORMALITIES OF GAIT AND MOBILITY 12/21/2017 EDILMA BROWNING CASH MANAGEMENT SPECIALIST Ot M54.5 LOW BACK PAIN 12/21/2017 EDILMA BROWNING CASH MANAGEMENT SPECIALIST Ot R26.89 OTHER ABNORMALITIES OF GAIT AND MOBILITY 12/23/2017 EDILMA BROWNING APRN Ot M54.5 LOW BACK PAIN 12/23/2017 EDILMA BROWNING CASH MANAGEMENT SPECIALIST Ot R26.89 OTHER ABNORMALITIES OF GAIT AND MOBILITY 01/19/2018 EDILMA BROWNING CASH MANAGEMENT SPECIALIST Ot M54.5 LOW BACK PAIN 01/19/2018 NAM EDILMA Faye CASH MANAGEMENT SPECIALIST Ot R26.89 OTHER ABNORMALITIES OF GAIT AND MOBILITY 01/24/2018 KANDY OLIVEIRA MD Ot F41. 9 ANXIETY DISORDER, UNSPECIFIED 01/24/2018 KANDY OLIVEIRA MD Ot I10 ESSENTIAL (PRIMARY) HYPERTENSION 01/24/2018 KANDY OLIVEIRA MD Ot R19. 7 DIARRHEA, UNSPECIFIED 01/24/2018 KANDY OLIVEIRA MD Ot Z79. 01 INVERFORM MACHINE OPERATOR (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 OF ANTICOAGULANT 01/24/2018 KANDY OLIVEIRA MD Ot Z79. 02 INVERFORM MACHINE OPERATOR (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 OF ANTITHROMBOTI 01/24/2018 KANDY OLIVEIRA MD Ot Z79. 82 DETENTION (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 OF ASPIRIN 01/24/2018 KANDY OLIVEIRA MD Ot Z80. 3 FAMILY HISTORY OF MALIGNANT NEOPLASM OF 01/24/2018 KANDY OLIVEIRA MD Ot Z86. 73 PRSNL HX OF TIA (TIA), AND CEREB INFRC W 01/24/2018 KANDY OLIVEIRA MD Ot Z87. 19 PERSONAL HISTORY OF OTHER DISEASES OF TH 01/24/2018 KANDY OLIVEIRA MD Ot Z87.891 PERSONAL HISTORY OF NICOTINE DEPENDENCE 01/24/2018 KANDY OLIVEIRA MD Ot Z90. 49 ACQUIRED ABSENCE OF OTHER SPECIFIED PART 01/24/2018 KANDY OLVIEIRA MD Ot Z90. 89 ACQUIRED ABSENCE OF OTHER ORGANS 01/27/2018 KANDY OLIVEIRA MD Ot F41. 9 ANXIETY DISORDER, UNSPECIFIED 01/27/2018 KANDY OLIVEIRA MD Ot I10 ESSENTIAL (PRIMARY) HYPERTENSION 01/27/2018 KANDY OLIVEIRA MD Ot R19. 7 DIARRHEA, UNSPECIFIED 01/27/2018 KANDY OLIVEIRA MD Ot Z79. 01 DETENTION (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 OF ANTICOAGULANT 01/27/2018 KANDY OLIVEIRA MD Ot Z79. 02 INVERFORM MACHINE OPERATOR (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 OF ANTITHROMBOTI 01/27/2018 KANDY OLIVEIRA MD Ot Z79. 82 DETENTION (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 OF ASPIRIN 01/27/2018 KANDY OLIVEIRA MD Ot Z80. 3 FAMILY HISTORY OF MALIGNANT NEOPLASM OF 01/27/2018 KANDY OLIVEIRA MD Ot Z86. 73 PRSNL HX OF TIA (TIA), AND CEREB INFRC W 01/27/2018 KANDY OLIVEIRA MD Ot Z87. 19 PERSONAL HISTORY OF OTHER DISEASES OF TH 01/27/2018 KANDY OLIVEIRA MD Ot Z87.891 PERSONAL HISTORY OF NICOTINE DEPENDENCE 01/27/2018 KANDY OLIVEIRA MD Ot Z90. 49 ACQUIRED ABSENCE OF OTHER SPECIFIED PART 01/27/2018 KANDY OLIVEIRA MD Ot Z90. 89 ACQUIRED ABSENCE OF OTHER ORGANS 02/08/2018 REJI WOODS, SALAS Katz Ot R19.7 DIARRHEA, UNSPECIFIED 02/28/2018 ERNESTO FRITZ MD Ot 429.3 CARDIOMEGALY 02/28/2018 ERNESTO FRITZ MD Ot 530.81 ESOPHAGEAL REFLUX 02/28/2018 ERNESTO FRITZ MD Ot V72.63 PRE-PROCEDURAL LABORATORY EXAMINATION 02/28/2018 ERNESTO FRITZ MD Ot V72.81 [id number] CARDIOVASCULAR 02/28/2018 ERNESTO FRITZ MD Ot V72.83 EXAM PRE-OPERATIVE NEC 02/28/2018 ERNESTO FRITZ MD Ot V74.8 SCREEN-BACTERIAL DIS NEC 02/28/2018 ERNESTO FRITZ MD Ot V72.84 EXAM PRE-OPERATIVE NOS 02/28/2018 ERNESTO FRITZ MD Ot 530.81 ESOPHAGEAL REFLUX 02/28/2018 ERNESTO FRITZ MD Ot V45.89 POSTSURGICAL STATES NEC 02/28/2018 ERNESTO FRITZ MD Ot V72.84 EXAM PRE-OPERATIVE NOS 02/28/2018 ERNESTO FRITZ MD Ot 530.11 REFLUX ESOPHAGITIS 02/28/2018 ERNESTO FRITZ MD Ot V45.89 POSTSURGICAL STATES NEC 02/28/2018 ERNESTO FRITZ MD Ot V72.84 EXAM PRE-OPERATIVE NOS 02/28/2018 DAPHNIE ODELL Ot 272.4 HYPERLIPIDEMIA NEC/NOS 02/28/2018 DAPHNIE ODELL Ot 397.0 TRICUSPID VALVE DISEASE 02/28/2018 DAPHNIE ODELL Ot 401.9 HYPERTENSION NOS 02/28/2018 DAPHNIE ODELL Ot 424.0 MITRAL VALVE DISORDER 02/28/2018 DAPHNIE ODELL Ot 786.09 RESPIRATORY ABNORM NEC 02/28/2018 MINH WOODS, TELLO Razo Ot 585.3 CHRONIC KIDNEY DISEASE, STAGE III (MODER 02/28/2018 DOMI MARTINEZ MD Ot E78. 5 HYPERLIPIDEMIA, UNSPECIFIED 02/28/2018 ODMI MARTINEZ MD Ot I10 ESSENTIAL (PRIMARY) HYPERTENSION 02/28/2018 DOMI MARTINEZ MD Ot I63. 9 CEREBRAL INFARCTION, UNSPECIFIED 02/28/2018 DOMI MARTINEZ MD Ot I73. 9 PERIPHERAL VASCULAR DISEASE, UNSPECIFIED 02/28/2018 MINH WOODS, TELLO Razo Ot I12.9 HYPERTENSIVE CHRONIC KIDNEY DISEASE W ST 02/28/2018 MINH WOODS, TELLO Razo Ot N18.9 CHRONIC KIDNEY DISEASE, UNSPECIFIED 02/28/2018 DOMI MARTINEZ MD Ot E78. 5 HYPERLIPIDEMIA, UNSPECIFIED 02/28/2018 DOMI MARTINEZ MD Ot F32. 9 MAJOR DEPRESSIVE DISORDER, SINGLE EPISOD 02/28/2018 DOMI MARTINEZ MD Ot I10 ESSENTIAL (PRIMARY) HYPERTENSION 02/28/2018 DOMI MARTINEZ MD Ot I63. 9 CEREBRAL INFARCTION, UNSPECIFIED 02/28/2018 DOMI MARTINEZ MD Ot I65. 23 OCCLUSION AND STENOSIS OF BILATERAL SENA 02/28/2018 DOMI MARTINEZ MD Ot Z79.899 OTHER INVERFORM MACHINE OPERATOR (CURRENT) DRUG THERAPY 02/28/2018 DOMI MARTINEZ MD Ot Z87.891 PERSONAL HISTORY OF NICOTINE DEPENDENCE 02/28/2018 REJI WOODS, SALAS Katz Ot R19.7 DIARRHEA, UNSPECIFIED 03/01/2018 NIKOS MAZARIEGOSP Ot R19.7 DIARRHEA, UNSPECIFIED 03/01/2018 NIKOS MAZARIEGOSP Ot R63.5 ABNORMAL WEIGHT GAIN 03/02/2018 NIKOS MAZARIEGOS OLIVER FILTER OPERATOR Ot M41.86 OTHER FORMS OF SCOLIOSIS, LUMBAR REGION 03/02/2018 NIKOS MAZARIEGOS OLIVER FILTER OPERATOR Ot M43.16 SPONDYLOLISTHESIS, LUMBAR REGION 03/02/2018 NIKOS MAZARIEGOSP Ot M46.87 OTH INFLAMMATORY SPONDYLOPATHIES, LUMBOS 03/02/2018 NIKOS MAZARIEGOS OLIVER FILTER OPERATOR Ot M48.07 SPINAL STENOSIS, LUMBOSACRAL REGION 03/02/2018 NIKOS MAZARIEGOS OLIVER FILTER OPERATOR Ot M51.27 OTHER INTERVERTEBRAL DISC DISPLACEMENT, 03/02/2018 NIKOS MAZARIEGOS OLIVER FILTER OPERATOR Ot M51.36 OTHER INTERVERTEBRAL DISC DEGENERATION, 03/02/2018 NIKOS MAZARIEGOS OLIVER FILTER OPERATOR Ot R15.9 FULL INCONTINENCE OF FECES 03/10/2018 NIKOS MAZARIEGOS OLIVER FILTER OPERATOR Ot M41.86 OTHER FORMS OF SCOLIOSIS, LUMBAR REGION 03/10/2018 YAIRNIKOS OLIVER FILTER OPERATOR Ot M43.16 SPONDYLOLISTHESIS, LUMBAR REGION 03/10/2018 MAZARIEGOSNIKOS OLIVER FILTER OPERATOR Ot M46.87 OTH INFLAMMATORY SPONDYLOPATHIES, LUMBOS 03/10/2018 MAZARIEGOSNIKOS OLIVER FILTER OPERATOR Ot M48.07 SPINAL STENOSIS, LUMBOSACRAL REGION 03/10/2018 NIKOS MAZARIEGOS OLIVER FILTER OPERATOR Ot M51.27 OTHER INTERVERTEBRAL DISC DISPLACEMENT, 03/10/2018 NIKOS MAZARIEGOS OLIVER FILTER OPERATOR Ot M51.36 OTHER INTERVERTEBRAL DISC DEGENERATION, 03/10/2018 NIKOS MAZARIEGOS OLIVER FILTER OPERATOR Ot R15.9 FULL INCONTINENCE OF FECES 03/10/2018 MAZARIEGOSNIKOS OLIVER FILTER OPERATOR Ot R19.7 DIARRHEA, UNSPECIFIED 03/10/2018 MAZARIEGOSNIKOS OLIVER FILTER OPERATOR Ot R63.5 ABNORMAL WEIGHT GAIN 05/01/2018 CATRINA WOODS, ERNESTO S Ot 530.81 ESOPHAGEAL REFLUX 05/01/2018 CATRINA WOODS, ERNESTO Hernandez Ot V45.89 POSTSURGICAL STATES NEC 05/01/2018 ERNESTO FRITZ MD Ot V72.84 EXAM PRE-OPERATIVE NOS 05/01/2018 CATRINA WOODS, ERNESTO Hernandez Ot 530.11 REFLUX ESOPHAGITIS 05/01/2018 ERNESTO FRITZ MD Ot V45.89 POSTSURGICAL STATES NEC 05/01/2018 ERNESTO FRITZ MD Ot V72.84 EXAM PRE-OPERATIVE NOS 05/01/2018 DAPHNIE ODELL Ot 272.4 HYPERLIPIDEMIA NEC/NOS 05/01/2018 DAPHNIE ODELL Ot 397.0 TRICUSPID VALVE DISEASE 05/01/2018 DAPHNIE ODELL Ot 401.9 HYPERTENSION NOS 05/01/2018 DAPHNIE ODELL Ot 424.0 MITRAL VALVE DISORDER 05/01/2018 DAPHNIE ODELL Ot 786.09 RESPIRATORY ABNORM NEC 05/01/2018 MINH WOODS, TELLO Razo Ot 585.3 CHRONIC KIDNEY DISEASE, STAGE III (MODER 05/01/2018 DOMI MARTINEZ MD Ot E78. 5 HYPERLIPIDEMIA, UNSPECIFIED 05/01/2018 DOMI MARTINEZ MD Ot I10 ESSENTIAL (PRIMARY) HYPERTENSION 05/01/2018 DOMI MARTINEZ MD Ot I63. 9 CEREBRAL INFARCTION, UNSPECIFIED 05/01/2018 DOMI MARTINEZ MD Ot I73. 9 PERIPHERAL VASCULAR DISEASE, UNSPECIFIED 05/01/2018 MINH WOODS, TELLO Razo Ot I12.9 HYPERTENSIVE CHRONIC KIDNEY DISEASE W ST 05/01/2018 TELLO WILKINSON MD Ot N18.9 CHRONIC KIDNEY DISEASE, UNSPECIFIED 05/01/2018 DOMI MARTINEZ MD Ot E78. 5 HYPERLIPIDEMIA, UNSPECIFIED 05/01/2018 DOMI MARTINEZ MD Ot F32. 9 MAJOR DEPRESSIVE DISORDER, SINGLE EPISOD 05/01/2018 DOMI MARTINEZ MD Ot I10 ESSENTIAL (PRIMARY) HYPERTENSION 05/01/2018 DOMI MARTINEZ MD Ot I63. 9 CEREBRAL INFARCTION, UNSPECIFIED 05/01/2018 DOMI MARTINEZ MD Ot I65. 23 OCCLUSION AND STENOSIS OF BILATERAL SENA 05/01/2018 DOMI MARTINEZ MD Ot Z79.899 OTHER INVERFORM MACHINE OPERATOR (CURRENT) DRUG THERAPY 05/01/2018 DOMI MARTINEZ MD Ot Z87.891 PERSONAL HISTORY OF NICOTINE DEPENDENCE 05/01/2018 REJI WOODS, SALAS Katz Ot R19.7 DIARRHEA, UNSPECIFIED 05/01/2018 NIKOS MAZARIEGOS Ot M41.86 OTHER FORMS OF SCOLIOSIS, LUMBAR REGION 05/01/2018 NIKOS MAZARIEGOSP Ot M43.16 SPONDYLOLISTHESIS, LUMBAR REGION 05/01/2018 NIKOS MAZARIEGOSP Ot M46.87 OTH INFLAMMATORY SPONDYLOPATHIES, LUMBOS 05/01/2018 NIKOS MAZARIEGOSP Ot M48.07 SPINAL STENOSIS, LUMBOSACRAL REGION 05/01/2018 NIKOS MAZARIEGOSP Ot M51.27 OTHER INTERVERTEBRAL DISC DISPLACEMENT, 05/01/2018 NIKOS MAZARIEGOSP Ot M51.36 OTHER INTERVERTEBRAL DISC DEGENERATION, 05/01/2018 NIKOS MAZARIEGOS OLIVER FILTER OPERATOR Ot R15.9 FULL INCONTINENCE OF FECES 05/01/2018 NIKOS MAZARIEGOS OLIVER FILTER OPERATOR Ot R19.7 DIARRHEA, UNSPECIFIED 05/01/2018 NIKOS MAZARIEGOS OLIVER FILTER OPERATOR Ot R63.5 ABNORMAL WEIGHT GAIN 05/01/2018 LAZARO [...] SANDY Ot I48.0 PAROXYSMAL ATRIAL FIBRILLATION 05/01/2018 LAZARO ALEXANDER SANDY Ot I63.53 1 CEREB INFRC D/T UNSP OCCLS OR STENOS OF 05/01/2018 LAZARO ALEXANDER SANDY Ot I65.23 OCCLUSION AND STENOSIS OF BILATERAL SENA 05/01/2018 LAZARO ALEXANDER SANDY Ot I69.39 2 FACIAL WEAKNESS FOLLOWING CEREBRAL INFAR 05/01/2018 LAZARO ALEXANDER SANDY Ot K44.9 DIAPHRAGMATIC HERNIA WITHOUT OBSTRUCTION 05/01/2018 LAZARO ALEXANDER SANDY Ot M06.9 RHEUMATOID ARTHRITIS, UNSPECIFIED 05/01/2018 LAZARO ALEXANDER SANDY Ot M19.91 PRIMARY OSTEOARTHRITIS, UNSPECIFIED SITE 05/01/2018 LAZARO ALEXANDER SANDY Ot M54.9 DORSALGIA, UNSPECIFIED 05/01/2018 LAZARO ALEXANDER SANDY Ot M62.83 8 OTHER MUSCLE SPASM 05/01/2018 LAZARO ALEXANDER SANDY Ot M79.7 FIBROMYALGIA 05/01/2018 LAZARO ALEXANDER SANDY Ot N18.9 CHRONIC KIDNEY DISEASE, UNSPECIFIED 05/01/2018 LAZARO ALEXANDER SANDY Ot Q21.1 ATRIAL SEPTAL DEFECT 05/01/2018 LAZARO ALEXANDER SANDY Ot R29.70 5 NIHSS SCORE 5 05/01/2018 LAZARO ALEXANDER SANDY Ot 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 05/01/2018 SANDY WILLIS DO Ot Z87.89 1 PERSONAL HISTORY OF NICOTINE DEPENDENCE 05/01/2018 SANDY [...] ATRIAL FIBRILLATION 05/01/2018 EDWIN WILLIS DOI Ot I63.53 1 CEREB INFRC D/T UNSP OCCLS OR STENOS OF 05/01/2018 EDWIN WILLIS DOI Ot I65.23 OCCLUSION AND STENOSIS OF BILATERAL SENA 05/01/2018 EDWIN WILLIS DOI Ot I69.39 2 FACIAL WEAKNESS FOLLOWING CEREBRAL INFAR 05/01/2018 EDWIN WILLIS DOI Ot K44.9 DIAPHRAGMATIC HERNIA WITHOUT OBSTRUCTION 05/01/2018 SANDY WILLIS DO Ot M06.9 RHEUMATOID ARTHRITIS, UNSPECIFIED 05/01/2018 EDWIN WILLIS DOI Ot M19.91 PRIMARY OSTEOARTHRITIS, UNSPECIFIED SITE 05/01/2018 SANDY WILLIS DO Ot M54.9 DORSALGIA, UNSPECIFIED 05/01/2018 EDWIN WILLIS DOI Ot M62.83 8 OTHER MUSCLE SPASM 05/01/2018 EDWIN WILLIS DOI Ot M79.7 FIBROMYALGIA 05/01/2018 EDWIN WILLIS DOI Ot N18.9 CHRONIC KIDNEY DISEASE, UNSPECIFIED 05/01/2018 SANDY WILLIS DO Ot Q21.1 ATRIAL SEPTAL DEFECT 05/01/2018 SANDY WILLIS DO Ot R29.70 5 NIHSS SCORE 5 05/01/2018 SANDY WILLIS DO Ot Z79.01 DETENTION (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 OF ANTICOAGULANT 05/01/2018 SANDY WILLIS DO Ot Z87.89 1 PERSONAL HISTORY OF NICOTINE DEPENDENCE 05/01/2018 SANDY [...] ATRIAL FIBRILLATION 05/01/2018 EDWIN WILLIS DOI Ot I63.53 1 CEREB INFRC D/T UNSP OCCLS OR STENOS OF 05/01/2018 EDWIN WILLIS DOI Ot I65.23 OCCLUSION AND STENOSIS OF BILATERAL SENA 05/01/2018 EDWIN WILLIS DOI Ot I69.39 2 FACIAL WEAKNESS FOLLOWING CEREBRAL INFAR 05/01/2018 SANDY WILLIS DO Ot K44.9 DIAPHRAGMATIC HERNIA WITHOUT OBSTRUCTION 05/01/2018 EDWIN WILLIS DOI Ot M06.9 RHEUMATOID ARTHRITIS, UNSPECIFIED 05/01/2018 EDWIN WILLIS DOI Ot M19.91 PRIMARY OSTEOARTHRITIS, UNSPECIFIED SITE 05/01/2018 SANDY WILLIS DO Ot M54.9 DORSALGIA, UNSPECIFIED 05/01/2018 EDWIN WILLIS DOI Ot M62.83 8 OTHER MUSCLE SPASM 05/01/2018 SANDY WILLIS DO Ot M79.7 FIBROMYALGIA 05/01/2018 SANDY WILLIS DO Ot N18.9 CHRONIC KIDNEY DISEASE, UNSPECIFIED 05/01/2018 SANDY WILLIS DO Ot Q21.1 ATRIAL SEPTAL DEFECT 05/01/2018 SANDY WILLIS DO Ot R29.70 5 NIHSS SCORE 5 05/01/2018 SANDY WILLIS DO Ot Z79.01 DETENTION (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 OF ANTICOAGULANT 05/01/2018 SANDY WILLIS DO Ot Z87.89 1 PERSONAL HISTORY OF NICOTINE DEPENDENCE 05/02/2018 SANDY WILLIS DO Ot D64.9 ANEMIA, UNSPECIFIED 05/02/2018 SANDY WILLIS DO Ot E78.2 MIXED HYPERLIPIDEMIA 05/02/2018 SANDY WILLIS DO Ot F32.9 MAJOR DEPRESSIVE DISORDER, SINGLE EPISOD 05/02/2018 SANDY WILLIS DO Ot F41.9 ANXIETY DISORDER, UNSPECIFIED 05/02/2018 SANDY WILLIS DO Ot G81.94 HEMIPLEGIA, UNSPECIFIED AFFECTING LEFT N 05/02/2018 EDWIN WILLIS DOI Ot H40.9 UNSPECIFIED GLAUCOMA 05/02/2018 EDWIN WILLIS DOI Ot I10 ESSENTIAL (PRIMARY) HYPERTENSION 05/02/2018 EDWIN WILLIS DOI Ot I48.0 PAROXYSMAL ATRIAL FIBRILLATION 05/02/2018 EDWIN WILLIS DOI Ot I63.53 1 CEREB INFRC D/T UNSP OCCLS OR STENOS OF 05/02/2018 SANDY WILLIS DO Ot I65.23 OCCLUSION AND STENOSIS OF BILATERAL SENA 05/02/2018 EDWIN WILLIS DOI Ot I69.39 2 FACIAL WEAKNESS FOLLOWING CEREBRAL INFAR 05/02/2018 EDWIN WILLIS DOI Ot K44.9 DIAPHRAGMATIC HERNIA WITHOUT OBSTRUCTION 05/02/2018 SANDY WILLIS DO Ot M06.9 RHEUMATOID ARTHRITIS, UNSPECIFIED 05/02/2018 LAZARO ALEXANDER SANDY Ot M19.91 PRIMARY OSTEOARTHRITIS, UNSPECIFIED SITE 05/02/2018 SANDY WILLIS DO Ot M54.9 DORSALGIA, UNSPECIFIED 05/02/2018 EDWIN WILLIS DOI Ot M62.83 8 OTHER MUSCLE SPASM 05/02/2018 EDWIN WILLIS DOI Ot M79.7 FIBROMYALGIA 05/02/2018 LAZARO ALEXANDER SANDY Ot N18.9 CHRONIC KIDNEY DISEASE, UNSPECIFIED 05/02/2018 SANDY WILLIS DO Ot Q21.1 ATRIAL SEPTAL DEFECT 05/02/2018 SANDY WILLIS DO Ot R29.70 5 NIHSS SCORE 5 05/02/2018 SANDY WILLIS DO Ot 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 05/02/2018 SANDY WILLIS DO Ot Z87.89 1 PERSONAL HISTORY OF NICOTINE DEPENDENCE 05/03/2018 SANDY WILLIS DO Ot D64.9 ANEMIA, UNSPECIFIED 05/03/2018 EDWIN WILLIS DOI Ot E78.2 MIXED HYPERLIPIDEMIA 05/03/2018 SANDY WILLIS DO Ot F32.9 MAJOR DEPRESSIVE DISORDER, SINGLE EPISOD 05/03/2018 WILLIS DO, SANDY Ot F41.9 ANXIETY DISORDER, UNSPECIFIED 05/03/2018 LAZARO ALEXANDER SANDY Ot G81.94 HEMIPLEGIA, UNSPECIFIED AFFECTING LEFT N 05/03/2018 LAZARO ALEXANDER SANDY Ot H40.9 UNSPECIFIED GLAUCOMA 05/03/2018 LAZARO ALEXANDER SANDY Ot I10 ESSENTIAL (PRIMARY) HYPERTENSION 05/03/2018 LAZARO ALEXANDER SANDY Ot I48.0 PAROXYSMAL ATRIAL FIBRILLATION 05/03/2018 LAZARO ALEXANDER SANDY Ot I63.53 1 CEREB INFRC D/T UNSP OCCLS OR STENOS OF 05/03/2018 LAZARO ALEXANDER SANDY Ot I65.23 OCCLUSION AND STENOSIS OF BILATERAL SENA 05/03/2018 LAZARO ALEXANDER SANDY Ot I69.39 2 FACIAL WEAKNESS FOLLOWING CEREBRAL INFAR 05/03/2018 EDWIN WILLIS DOI Ot K44.9 DIAPHRAGMATIC HERNIA WITHOUT OBSTRUCTION 05/03/2018 EDWIN WILLIS DOI Ot M06.9 RHEUMATOID ARTHRITIS, UNSPECIFIED 05/03/2018 EDWIN WILLIS DOI Ot M19.91 PRIMARY OSTEOARTHRITIS, UNSPECIFIED SITE 05/03/2018 SANDY WILLIS DO Ot M54.9 DORSALGIA, UNSPECIFIED 05/03/2018 LAZARO ALEXANDER SANDY Ot M62.83 8 OTHER MUSCLE SPASM 05/03/2018 EDWIN WILLIS DOI Ot M79.2 NEURALGIA AND NEURITIS, UNSPECIFIED 05/03/2018 LAZARO ALEXANDER SANDY Ot M79.7 FIBROMYALGIA 05/03/2018 LAZARO ALEXANDER SANDY Ot N18.9 CHRONIC KIDNEY DISEASE, UNSPECIFIED 05/03/2018 EDWIN WILLIS DOI Ot Q21.1 ATRIAL SEPTAL DEFECT 05/03/2018 SANDY WILLIS DO Ot R29.70 5 NIHSS SCORE 5 05/03/2018 EDWIN WILLIS DOI Ot R32 UNSPECIFIED URINARY INCONTINENCE 05/03/2018 EDWIN WILLIS DOI Ot 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 05/03/2018 SANDY WILLIS DO Ot Z87.89 1 PERSONAL HISTORY OF NICOTINE DEPENDENCE 05/05/2018 LAZARO ALEXANDER SANDY Ot E78.5 HYPERLIPIDEMIA, UNSPECIFIED 05/05/2018 LAZARO ALEXANDER SANDY Ot F32.9 MAJOR DEPRESSIVE DISORDER, SINGLE EPISOD 05/05/2018 LAZARO ALEXANDER SANDY Ot I12.9 HYPERTENSIVE CHRONIC KIDNEY DISEASE W ST 05/05/2018 WILLIS DO, SANDY Ot I48.0 PAROXYSMAL ATRIAL FIBRILLATION 05/05/2018 WILLIS DO, SANDY Ot I69.35 4 HEMIPLGA FOLLOWING CEREBRAL INFRC AFFECT 05/05/2018 WILLIS DO, SANDY Ot I69.39 2 FACIAL WEAKNESS FOLLOWING CEREBRAL INFAR 05/05/2018 WILLIS DO SANDY Ot K44.9 DIAPHRAGMATIC HERNIA WITHOUT OBSTRUCTION 05/05/2018 WILLIS DO SANDY Ot M06.9 RHEUMATOID ARTHRITIS, UNSPECIFIED 05/05/2018 WILLIS DO SANDY Ot M19.90 UNSPECIFIED OSTEOARTHRITIS, UNSPECIFIED 05/05/2018 WILLIS DO SANDY Ot N18.9 CHRONIC KIDNEY DISEASE, UNSPECIFIED 05/05/2018 WILLIS DO SANDY Ot R32 UNSPECIFIED URINARY INCONTINENCE 05/05/2018 LAZARO DO SANDY Ot 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 05/05/2018 LAZARO ALEXANDER SANDY Ot Z87.89 1 PERSONAL HISTORY OF NICOTINE DEPENDENCE 05/08/2018 LAZARO DO SANDY Ot E78.5 HYPERLIPIDEMIA, UNSPECIFIED 05/08/2018 LAZARO DO SANDY Ot F32.9 MAJOR DEPRESSIVE DISORDER, SINGLE EPISOD 05/08/2018 LAZARO DO SANDY Ot I12.9 HYPERTENSIVE CHRONIC KIDNEY DISEASE W ST 05/08/2018 LAZARO DO SANDY Ot I48.0 PAROXYSMAL ATRIAL FIBRILLATION 05/08/2018 LAZARO DO SANDY Ot I69.35 4 HEMIPLGA FOLLOWING CEREBRAL INFRC AFFECT 05/08/2018 LAZARO DO SANDY Ot I69.39 2 FACIAL WEAKNESS FOLLOWING CEREBRAL INFAR 05/08/2018 LAZARO DO SANDY Ot K44.9 DIAPHRAGMATIC HERNIA WITHOUT OBSTRUCTION 05/08/2018 LAZARO DO SANDY Ot M06.9 RHEUMATOID ARTHRITIS, UNSPECIFIED 05/08/2018 WILLIS DO SANDY Ot M19.90 UNSPECIFIED OSTEOARTHRITIS, UNSPECIFIED 05/08/2018 LAZARO DO SANDY Ot N18.9 CHRONIC KIDNEY DISEASE, UNSPECIFIED 05/08/2018 WILLIS DO SANDY Ot R32 UNSPECIFIED URINARY INCONTINENCE 05/08/2018 LAZARO AELXANDER SANDY Ot Z79.01 DETENTION (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 OF ANTICOAGULANT 05/08/2018 LAZARO ALEXANDER SANDY Ot Z87.89 1 PERSONAL HISTORY OF NICOTINE DEPENDENCE 05/08/2018 WILLIS DO, SANDY Ot E78.5 HYPERLIPIDEMIA, UNSPECIFIED 05/08/2018 WILLIS DO SANDY Ot F32.9 MAJOR DEPRESSIVE DISORDER, SINGLE EPISOD 05/08/2018 WILLIS DO SANDY Ot I12.9 HYPERTENSIVE CHRONIC KIDNEY DISEASE W ST 05/08/2018 WILLIS DO SANDY Ot I48.0 PAROXYSMAL ATRIAL FIBRILLATION 05/08/2018 WILLIS DO, SANDY Ot I69.35 4 HEMIPLGA FOLLOWING CEREBRAL INFRC AFFECT 05/08/2018 WILLIS DO SANDY Ot I69.39 2 FACIAL WEAKNESS FOLLOWING CEREBRAL INFAR 05/08/2018 WILLIS DO SANDY Ot K44.9 DIAPHRAGMATIC HERNIA WITHOUT OBSTRUCTION 05/08/2018 WILLIS DO SANDY Ot M06.9 RHEUMATOID ARTHRITIS, UNSPECIFIED 05/08/2018 LAZARO DO SANDY Ot M19.90 UNSPECIFIED OSTEOARTHRITIS, UNSPECIFIED 05/08/2018 LAZARO DO SANDY Ot N18.9 CHRONIC KIDNEY DISEASE, UNSPECIFIED 05/08/2018 LAZARO DO SANDY Ot R32 UNSPECIFIED URINARY INCONTINENCE 05/08/2018 LAZARO ALEXANDER SANDY Ot Z79.01 DETENTION (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 OF ANTICOAGULANT 05/08/2018 LAZARO ALEXANDER SANDY Ot Z87.89 1 PERSONAL HISTORY OF NICOTINE DEPENDENCE 05/09/2018 LAZARO DO SANDY Ot E78.5 HYPERLIPIDEMIA, UNSPECIFIED 05/09/2018 LAZARO DO SANDY Ot F32.9 MAJOR DEPRESSIVE DISORDER, SINGLE EPISOD 05/09/2018 LAZARO DO SANDY Ot I12.9 HYPERTENSIVE CHRONIC KIDNEY DISEASE W ST 05/09/2018 LAZARO DO SANDY Ot I48.0 PAROXYSMAL ATRIAL FIBRILLATION 05/09/2018 LAZARO DO SANDY Ot I69.35 4 HEMIPLGA FOLLOWING CEREBRAL INFRC AFFECT 05/09/2018 WILLIS DO, SANDY Ot I69.39 2 FACIAL WEAKNESS FOLLOWING CEREBRAL INFAR 05/09/2018 WILLIS DO SANDY Ot K44.9 DIAPHRAGMATIC HERNIA WITHOUT OBSTRUCTION 05/09/2018 WILLIS DO SANDY Ot M06.9 RHEUMATOID ARTHRITIS, UNSPECIFIED 05/09/2018 WILLIS DO SANDY Ot M19.90 UNSPECIFIED OSTEOARTHRITIS, UNSPECIFIED 05/09/2018 LAZARO DO SANDY Ot N18.9 CHRONIC KIDNEY DISEASE, UNSPECIFIED 05/09/2018 WILLIS DO, SANDY Ot R32 UNSPECIFIED URINARY INCONTINENCE 05/09/2018 WILLIS DO SANDY Ot Z79.01 DETENTION (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 OF ANTICOAGULANT 05/09/2018 LAZARO ALEXANDER SANDY Ot Z87.89 1 PERSONAL HISTORY OF NICOTINE DEPENDENCE 05/15/2018 WILLIS DO SANDY Ot E78.5 HYPERLIPIDEMIA, UNSPECIFIED 05/15/2018 WILLIS DO SANDY Ot F32.9 MAJOR DEPRESSIVE DISORDER, SINGLE EPISOD 05/15/2018 WILLIS DO, SANDY Ot I12.9 HYPERTENSIVE CHRONIC KIDNEY DISEASE W ST 05/15/2018 WILLIS DO, SANDY Ot I48.0 PAROXYSMAL ATRIAL FIBRILLATION 05/15/2018 WILLIS DO, SANDY Ot I69.35 4 HEMIPLGA FOLLOWING CEREBRAL INFRC AFFECT 05/15/2018 WILLIS DO, SANDY Ot I69.39 2 FACIAL WEAKNESS FOLLOWING CEREBRAL INFAR 05/15/2018 WILLIS DO SANDY Ot K44.9 DIAPHRAGMATIC HERNIA WITHOUT OBSTRUCTION 05/15/2018 WILLIS DO SANDY Ot M06.9 RHEUMATOID ARTHRITIS, UNSPECIFIED 05/15/2018 WILLIS DO, SANDY Ot M19.90 UNSPECIFIED OSTEOARTHRITIS, UNSPECIFIED 05/15/2018 WILLIS DO, SANDY Ot N18.9 CHRONIC KIDNEY DISEASE, UNSPECIFIED 05/15/2018 WILLIS DO, SANDY Ot R32 UNSPECIFIED URINARY INCONTINENCE 05/15/2018 LAZARO ALEXANDER SANDY Ot 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 05/15/2018 LAZARO ALEXANDER SANDY Ot Z87.89 1 PERSONAL HISTORY OF NICOTINE DEPENDENCE 05/18/2018 LAZARO DO SANDY Ot B96.20 UNSP ESCHERICHIA COLI THE CAUSE OF DI 05/18/2018 WILLIS DO, SANDY Ot E78.5 HYPERLIPIDEMIA, UNSPECIFIED 05/18/2018 WILLIS DO SANDY Ot F32.9 MAJOR DEPRESSIVE DISORDER, SINGLE EPISOD 05/18/2018 WILLIS DO SANDY Ot F41.9 ANXIETY DISORDER, UNSPECIFIED 05/18/2018 WILLIS DO, SANDY Ot I12.9 HYPERTENSIVE CHRONIC KIDNEY DISEASE W ST 05/18/2018 WILLIS DO, SANDY Ot I48.0 PAROXYSMAL ATRIAL FIBRILLATION 05/18/2018 WILLIS DO, SANDY Ot I69.35 4 HEMIPLGA FOLLOWING CEREBRAL INFRC AFFECT 05/18/2018 WILLIS DO, SANDY Ot I69.39 2 FACIAL WEAKNESS FOLLOWING CEREBRAL INFAR 05/18/2018 WILLIS DO SANDY Ot I69.39 8 OTHER SEQUELAE OF CEREBRAL INFARCTION 05/18/2018 WILLIS DO SANDY Ot K44.9 DIAPHRAGMATIC HERNIA WITHOUT OBSTRUCTION 05/18/2018 WILLIS DO SANDY Ot M06.9 RHEUMATOID ARTHRITIS, UNSPECIFIED 05/18/2018 WILLIS DO SANDY Ot M19.90 UNSPECIFIED OSTEOARTHRITIS, UNSPECIFIED 05/18/2018 WILLIS DO SANDY Ot N18.9 CHRONIC KIDNEY DISEASE, UNSPECIFIED 05/18/2018 WILLIS DO SANDY Ot N39.0 URINARY TRACT INFECTION, SITE NOT SPECIF 05/18/2018 WILLIS DO SANDY Ot R32 UNSPECIFIED URINARY INCONTINENCE 05/18/2018 WILLIS DO SANDY Ot R33.9 RETENTION OF URINE, UNSPECIFIED 05/18/2018 WILLIS DO SANDY Ot R41.4 NEUROLOGIC NEGLECT SYNDROME 05/18/2018 WILLISSUNI ALEXANDER SANDY Ot Z79.01 DETENTION (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 OF ANTICOAGULANT 05/18/2018 WILLISSUNI ALEXANDER SANDY Ot Z87.89 1 PERSONAL HISTORY OF NICOTINE DEPENDENCE 06/14/2018 CATRINA WOODS, ERNESTO Hernandez Ot 530.81 ESOPHAGEAL REFLUX 06/14/2018 ERNESTO FRITZ MD Ot V45.89 POSTSURGICAL STATES NEC 06/14/2018 ERNESTO FRITZ MD Ot V72.84 EXAM PRE-OPERATIVE NOS 06/14/2018 ERNESTO FRITZ MD Ot 530.11 REFLUX ESOPHAGITIS 06/14/2018 ERNESTO FRITZ MD Ot V45.89 POSTSURGICAL STATES NEC 06/14/2018 ERNESTO FRITZ MD Ot V72.84 EXAM PRE-OPERATIVE NOS 06/14/2018 DAPHNIE ODELL Ot 272.4 HYPERLIPIDEMIA NEC/NOS 06/14/2018 DAPHNIE ODELL Ot 397.0 TRICUSPID VALVE DISEASE 06/14/2018 DAPHNIE ODELL Ot 401.9 HYPERTENSION NOS 06/14/2018 DAPHNIE ODELL Ot 424.0 MITRAL VALVE DISORDER 06/14/2018 DAPHNIE ODELL Ot 786.09 RESPIRATORY ABNORM NEC 06/14/2018 MINH WOODS, TELLO Razo Ot 585.3 CHRONIC KIDNEY DISEASE, STAGE III (MODER 06/14/2018 DOMI MARTINEZ MD Ot E78. 5 HYPERLIPIDEMIA, UNSPECIFIED 06/14/2018 DOMI MARTINEZ MD Ot I10 ESSENTIAL (PRIMARY) HYPERTENSION 06/14/2018 DOMI MARTINEZ MD Ot I63. 9 CEREBRAL INFARCTION, UNSPECIFIED 06/14/2018 DOMI MARTINEZ MD Ot I73. 9 PERIPHERAL VASCULAR DISEASE, UNSPECIFIED 06/14/2018 MINH WOODS, TELLO Razo Ot I12.9 HYPERTENSIVE CHRONIC KIDNEY DISEASE W ST 06/14/2018 MINH WOODS, TELLO L Ot N18.9 CHRONIC KIDNEY DISEASE, UNSPECIFIED 06/14/2018 DOMI MARTINEZ MD Ot E78. 5 HYPERLIPIDEMIA, UNSPECIFIED 06/14/2018 DOMI MARTINEZ MD Ot F32. 9 MAJOR DEPRESSIVE DISORDER, SINGLE EPISOD 06/14/2018 DOMI MARTINEZ MD Ot I10 ESSENTIAL (PRIMARY) HYPERTENSION 06/14/2018 DOMI MARTINEZ MD Ot I63. 9 CEREBRAL INFARCTION, UNSPECIFIED 06/14/2018 DOMI MARTINEZ MD Ot I65. 23 OCCLUSION AND STENOSIS OF BILATERAL SENA 06/14/2018 DOMI MARTINEZ MD Ot Z79.899 OTHER DETENTION (CURRENT) DRUG THERAPY 06/14/2018 DOMI MARTINEZ MD Ot Z87.891 PERSONAL HISTORY OF NICOTINE DEPENDENCE 06/14/2018 REJI WOODS, SALAS Katz Ot R19.7 DIARRHEA, UNSPECIFIED 06/14/2018 NIKOS MAZARIEGOSP Ot M41.86 OTHER FORMS OF SCOLIOSIS, LUMBAR REGION 06/14/2018 NIKOS MAZARIEGOSP Ot M43.16 SPONDYLOLISTHESIS, LUMBAR REGION 06/14/2018 NIKOS MAZARIEGOSP Ot M46.87 OTH INFLAMMATORY SPONDYLOPATHIES, LUMBOS 06/14/2018 NIKOS MAZARIEGOSP Ot M48.07 SPINAL STENOSIS, LUMBOSACRAL REGION 06/14/2018 NIKOS MAZARIEGOSP Ot M51.27 OTHER INTERVERTEBRAL DISC DISPLACEMENT, 06/14/2018 NIKOS MAZARIEGOSP Ot M51.36 OTHER INTERVERTEBRAL DISC DEGENERATION, 06/14/2018 NIKOS MAZARIEGOSP Ot R15.9 FULL INCONTINENCE OF FECES 06/14/2018 MAZARIEGOS, NIKOS M OLIVER FILTER OPERATOR Ot R19.7 DIARRHEA, UNSPECIFIED 06/14/2018 NIKOS MAZARIEGOS OLIVER FILTER OPERATOR Ot R63.5 ABNORMAL WEIGHT GAIN 06/15/2018 TANISHA MAYURI OLIVER FILTER OPERATOR Ot E16.2 HYPOGLYCEMIA, UNSPECIFIED 06/20/2018 MAYURI GARAY OLIVER FILTER OPERATOR Ot E16.2 HYPOGLYCEMIA, UNSPECIFIED 07/17/2018 CATRINA WOODS, ERNESTO S Ot 530.11 REFLUX ESOPHAGITIS 07/17/2018 CATRINA WOODS, ERNESTO S Ot V45.89 POSTSURGICAL STATES NEC 07/17/2018 CATRINA WOODS, ERNESTO S Ot V72.84 EXAM PRE-OPERATIVE NOS 07/17/2018 LON CULVER, DAPHNIE K Ot 272.4 HYPERLIPIDEMIA NEC/NOS 07/17/2018 DAPHNIE ODELL K Ot 397.0 TRICUSPID VALVE DISEASE 07/17/2018 DAPHNIE ODELL Ot 401.9 HYPERTENSION NOS 07/17/2018 DAPHNIE ODELL K Ot 424.0 MITRAL VALVE DISORDER 07/17/2018 ROBERT ODELLTH K Ot 786.09 RESPIRATORY ABNORM NEC 07/17/2018 MINH WOODS, TELLO Razo Ot 585.3 CHRONIC KIDNEY DISEASE, STAGE III (MODER 07/17/2018 DOMI MARTINEZ MD Ot E78. 5 HYPERLIPIDEMIA, UNSPECIFIED 07/17/2018 DOMI MARTINEZ MD Ot I10 ESSENTIAL (PRIMARY) HYPERTENSION 07/17/2018 DOMI MARTINEZ MD Ot I63. 9 CEREBRAL INFARCTION, UNSPECIFIED 07/17/2018 DOMI MARTINEZ MD Ot I73. 9 PERIPHERAL VASCULAR DISEASE, UNSPECIFIED 07/17/2018 MINH WOODS, TELLO Razo Ot I12.9 HYPERTENSIVE CHRONIC KIDNEY DISEASE W ST 07/17/2018 MINH WOODS, TELLO Razo Ot N18.9 CHRONIC KIDNEY DISEASE, UNSPECIFIED 07/17/2018 DOMI MARTINEZ MD Ot E78. 5 HYPERLIPIDEMIA, UNSPECIFIED 07/17/2018 DOMI MARTINEZ MD Ot F32. 9 MAJOR DEPRESSIVE DISORDER, SINGLE EPISOD 07/17/2018 DOMI MARTINEZ MD Ot I10 ESSENTIAL (PRIMARY) HYPERTENSION 07/17/2018 DOMI MARTINEZ MD Ot I63. 9 CEREBRAL INFARCTION, UNSPECIFIED 07/17/2018 DOMI MARTINEZ MD Ot I65. 23 OCCLUSION AND STENOSIS OF BILATERAL SENA 07/17/2018 DOMI MARTINEZ MD Ot Z79.899 OTHER INVERFORM MACHINE OPERATOR (CURRENT) DRUG THERAPY 07/17/2018 DOMI MARTINEZ MD Ot Z87.891 PERSONAL HISTORY OF NICOTINE DEPENDENCE 07/17/2018 REJI WOODS, SALAS Katz Ot R19.7 DIARRHEA, UNSPECIFIED 07/17/2018 NIKOS MAZARIEGOS OLIVER FILTER OPERATOR Ot M41.86 OTHER FORMS OF SCOLIOSIS, LUMBAR REGION 07/17/2018 NIKOS MAZARIEGOS OLIVER FILTER OPERATOR Ot M43.16 SPONDYLOLISTHESIS, LUMBAR REGION 07/17/2018 NIKOS MAZARIEGOS OLIVER FILTER OPERATOR Ot M46.87 OTH INFLAMMATORY SPONDYLOPATHIES, LUMBOS 07/17/2018 NIKOS MAZARIEGOS OLIVER FILTER OPERATOR Ot M48.07 SPINAL STENOSIS, LUMBOSACRAL REGION 07/17/2018 NIKOS MAZARIEGOS OLIVER FILTER OPERATOR Ot M51.27 OTHER INTERVERTEBRAL DISC DISPLACEMENT, 07/17/2018 NIKOS MAZARIEGOS OLIVER FILTER OPERATOR Ot M51.36 OTHER INTERVERTEBRAL DISC DEGENERATION, 07/17/2018 NIKOS MAZARIEGOS OLIVER FILTER OPERATOR Ot R15.9 FULL INCONTINENCE OF FECES 07/17/2018 NIKOS MAZARIEGOS OLIVER FILTER OPERATOR Ot R19.7 DIARRHEA, UNSPECIFIED 07/17/2018 NIKOS MAZARIEGOS OLIVER FILTER OPERATOR Ot R63.5 ABNORMAL WEIGHT GAIN 07/17/2018 MAYURI GARAY OLIVER FILTER OPERATOR Ot E16.2 HYPOGLYCEMIA, UNSPECIFIED 07/19/2018 KENZIE COOPER MD Ot E78 .5 HYPERLIPIDEMIA, UNSPECIFIED 07/19/2018 KENZIE COOPER MD Ot F32 .9 MAJOR DEPRESSIVE DISORDER, SINGLE EPISOD 07/19/2018 KENZIE COOPER MD Ot F41 .9 ANXIETY DISORDER, UNSPECIFIED 07/19/2018 KENZIE COOPER MD Ot G45 .9 TRANSIENT CEREBRAL ISCHEMIC ATTACK, UNSP 07/19/2018 KENZIE COOPER MD Ot G81.94 HEMIPLEGIA, UNSPECIFIED AFFECTING LEFT N 07/19/2018 KENZIE COOPER MD Ot H40 .9 UNSPECIFIED GLAUCOMA 07/19/2018 KENZIE COOPER MD Ot I12 .9 HYPERTENSIVE CHRONIC KIDNEY DISEASE W ST 07/19/2018 KENZIE COOPER MD Ot I48 .0 PAROXYSMAL ATRIAL FIBRILLATION 07/19/2018 KENZIE COOPER MD, Ot I69.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 07/19/2018 KENZIE COOPER MD, Ot 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 07/19/2018 KENZIE COOPER MD, Ot M19.91 PRIMARY OSTEOARTHRITIS, UNSPECIFIED SITE 07/19/2018 KENZIE COOPER MD, Ot N18 .3 CHRONIC KIDNEY DISEASE, STAGE 3 (MODERAT 07/19/2018 KENZIE COOPER MD, Ot Q21 .1 ATRIAL SEPTAL DEFECT 07/19/2018 KENZIE COOPER MD, Ot R41 .0 DISORIENTATION, UNSPECIFIED 07/19/2018 KENZIE COOPER MD, Ot T40.4X5A ADVERSE EFFECT OF OTHER SYNTHETIC NARCOT 07/19/2018 KENZIE COOPER MD, Ot 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 07/19/2018 KENZIE COOPER MD, Ot Z79.82 INVERFORM MACHINE OPERATOR (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 OF ASPIRIN 07/19/2018 KENZIE COOPER MD, Ot Z87.891 PERSONAL HISTORY OF NICOTINE DEPENDENCE 07/19/2018 KENZIE COOPER MD, Ot E11.51 TYPE 2 DIABETES W DIABETIC PERIPHERAL AN 07/19/2018 KENZIE COOPER MD, Ot E11 .9 TYPE 2 DIABETES MELLITUS WITHOUT COMPLIC 07/19/2018 KENZIE COOPER MD, Ot E78 .5 HYPERLIPIDEMIA, UNSPECIFIED 07/19/2018 KENZIE COOPER MD, Ot F05 DELIRIUM DUE TO KNOWN PHYSIOLOGICAL COND 07/19/2018 KENZIE COOPER MD, Ot F32 .9 MAJOR DEPRESSIVE DISORDER, SINGLE EPISOD 07/19/2018 KENZIE COOPER MD, Ot F41 .9 ANXIETY DISORDER, UNSPECIFIED 07/19/2018 KENZIE COOPER MD, Ot G45 .9 TRANSIENT CEREBRAL ISCHEMIC ATTACK, UNSP 07/19/2018 KENZIE COOPER MD, Ot G81.94 HEMIPLEGIA, UNSPECIFIED AFFECTING LEFT N 07/19/2018 KENZIE COOPER MD, Ot H40 .9 UNSPECIFIED GLAUCOMA 07/19/2018 KENZIE COOPER MD, Ot I12 .9 HYPERTENSIVE CHRONIC KIDNEY DISEASE W ST 07/19/2018 ALLISON MD, KENZIE N Ot I48 .0 PAROXYSMAL ATRIAL FIBRILLATION 07/19/2018 KENZIE COOPER MD Ot I65.23 OCCLUSION AND STENOSIS OF BILATERAL SENA 07/19/2018 KENZIE COOPER MD Ot I69.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 07/19/2018 KENZIE COOPER MD Ot 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 07/19/2018 KENZIE COOPER MD, Ot M06 .9 RHEUMATOID ARTHRITIS, UNSPECIFIED 07/19/2018 KENZIE COOPER MD Ot M19.91 PRIMARY OSTEOARTHRITIS, UNSPECIFIED SITE 07/19/2018 KENZIE COOPER MD Ot M79 .7 FIBROMYALGIA 07/19/2018 KENZIE COOPER MD Ot N18 .3 CHRONIC KIDNEY DISEASE, STAGE 3 (MODERAT 07/19/2018 KENZIE COOPER MD Ot Q21 .1 ATRIAL SEPTAL DEFECT 07/19/2018 KENZIE COOPER MD Ot R41 .0 DISORIENTATION, UNSPECIFIED 07/19/2018 KENZIE COOPER MD Ot T40.4X5A ADVERSE EFFECT OF OTHER SYNTHETIC NARCOT 07/19/2018 KENZIE COOPER MD Ot Z79.01 DETENTION (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 OF ANTICOAGULANT 07/19/2018 KENZIE COOPER MD Ot Z79.82 DETENTION (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 OF ASPIRIN 07/19/2018 KENZIE COOPER MD Ot Z87.891 PERSONAL HISTORY OF NICOTINE DEPENDENCE 08/02/2018 Ot 706.1 08/02/2018 Ot 786.59 08/02/2018 Ot V54.19 08/02/2018 Ot 784.0 08/02/2018 Ot V12.59 08/02/2018 Ot 272.4 08/02/2018 Ot 401.9 08/02/2018 Ot 780.79 OTH MALAISE FATIGUE 08/02/2018 Ot 285.9 ANEM IA NOS 08/02/2018 Ot 532.90 DUO DENAL ULCER NOS 08/02/2018 Ot 285.9 ANEM IA NOS 08/02/2018 Ot 532.90 DUO DENAL ULCER NOS 08/02/2018 ERNESTO FRITZ MD Ot V72.84 EXAM PRE-OPERATIVE NOS 08/31/2018 ERNESTO FRITZ MD Ot 530.11 REFLUX ESOPHAGITIS 08/31/2018 CATRINA WOODS, ERNESTO Hernandez Ot V45.89 POSTSURGICAL STATES NEC 08/31/2018 CATRINA WOODS, ERNESTO Hernandez Ot V72.84 EXAM PRE-OPERATIVE NOS 08/31/2018 DAPHNIE ODELL Ot 272.4 HYPERLIPIDEMIA NEC/NOS 08/31/2018 LON CULVER DAPHNIE K Ot 397.0 TRICUSPID VALVE DISEASE 08/31/2018 DAPHNIE ODELL Ot 401.9 HYPERTENSION NOS 08/31/2018 LON CULVER DAPHNIE K Ot 424.0 MITRAL VALVE DISORDER 08/31/2018 DAPHNIE ODELL Ot 786.09 RESPIRATORY ABNORM NEC 08/31/2018 MINH WOODS, TELLO Razo Ot 585.3 CHRONIC KIDNEY DISEASE, STAGE III (MODER 08/31/2018 DOMI MARTINEZ MD Ot E78. 5 HYPERLIPIDEMIA, UNSPECIFIED 08/31/2018 DOMI MARTINEZ MD Ot I10 ESSENTIAL (PRIMARY) HYPERTENSION 08/31/2018 DOMI MARTINEZ MD Ot I63. 9 CEREBRAL INFARCTION, UNSPECIFIED 08/31/2018 DOMI MARTINEZ MD Ot I73. 9 PERIPHERAL VASCULAR DISEASE, UNSPECIFIED 08/31/2018 MINH WOODS, TELLO Razo Ot I12.9 HYPERTENSIVE CHRONIC KIDNEY DISEASE W ST 08/31/2018 MINH WOODS, TELLO Razo Ot N18.9 CHRONIC KIDNEY DISEASE, UNSPECIFIED 08/31/2018 DOMI MARTINEZ MD Ot E78. 5 HYPERLIPIDEMIA, UNSPECIFIED 08/31/2018 DOMI MARTINEZ MD Ot F32. 9 MAJOR DEPRESSIVE DISORDER, SINGLE EPISOD 08/31/2018 DOMI MARTINEZ MD Ot I10 ESSENTIAL (PRIMARY) HYPERTENSION 08/31/2018 DOMI MARTINEZ MD Ot I63. 9 CEREBRAL INFARCTION, UNSPECIFIED 08/31/2018 DOMI MARTINEZ MD Ot I65. 23 OCCLUSION AND STENOSIS OF BILATERAL SENA 08/31/2018 DOMI MARTINEZ MD Ot Z79.899 OTHER DETENTION (CURRENT) DRUG THERAPY 08/31/2018 DOMI MARTINEZ MD Ot Z87.891 PERSONAL HISTORY OF NICOTINE DEPENDENCE 08/31/2018 REJI WOODS, SALAS Katz Ot R19.7 DIARRHEA, UNSPECIFIED 08/31/2018 MAZARIEGOS, NIKOS M OLIVER FILTER OPERATOR Ot M41.86 OTHER FORMS OF SCOLIOSIS, LUMBAR REGION 08/31/2018 YAIR NIKOS M OLIVER FILTER OPERATOR Ot M43.16 SPONDYLOLISTHESIS, LUMBAR REGION 08/31/2018 NIKOS MAZARIEGOS OLIVER FILTER OPERATOR Ot M46.87 OTH INFLAMMATORY SPONDYLOPATHIES, LUMBOS 08/31/2018 NIKOS MAZARIEGOS OLIVER FILTER OPERATOR Ot M48.07 SPINAL STENOSIS, LUMBOSACRAL REGION 08/31/2018 NIKOS MAZARIEGOS OLIVER FILTER OPERATOR Ot M51.27 OTHER INTERVERTEBRAL DISC DISPLACEMENT, 08/31/2018 YAIR NIKOS M OLIVER FILTER OPERATOR Ot M51.36 OTHER INTERVERTEBRAL DISC DEGENERATION, 08/31/2018 YAIR NIKOS M OLIVER FILTER OPERATOR Ot R15.9 FULL INCONTINENCE OF FECES 08/31/2018 NIKOS MAZARIEGOS OLIVER FILTER OPERATOR Ot R19.7 DIARRHEA, UNSPECIFIED 08/31/2018 NIKOS MAZARIEGOS OLIVER FILTER OPERATOR Ot R63.5 ABNORMAL WEIGHT GAIN 08/31/2018 MAYURI GARAYP Ot E16.2 HYPOGLYCEMIA, UNSPECIFIED 08/31/2018 BAMBI WOODS, JUHI Ponce Ot I69.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 09/21/2018 DOE WOODS, ROZ Tineo Ot D64.9 ANEMIA, UNSPECIFIED 09/21/2018 DOE WOODS, ROZ Tineo Ot F32.9 MAJOR DEPRESSIVE DISORDER, SINGLE EPISOD 09/21/2018 DOE WOODS, ROZ Tineo Ot F41.9 ANXIETY DISORDER, UNSPECIFIED 09/21/2018 ROZ AZAR MD Ot I12.9 HYPERTENSIVE CHRONIC KIDNEY DISEASE W ST 09/21/2018 DOE WOODS, ROZ Tineo Ot I48.0 PAROXYSMAL ATRIAL FIBRILLATION 09/21/2018 DOE WOODS, ROZ Tineo Ot M79.604 PAIN IN RIGHT LEG 09/21/2018 DOE WOODS, ROZ Tineo Ot N18.9 CHRONIC KIDNEY DISEASE, UNSPECIFIED 09/21/2018 DOE WOODS, ROZ Tineo Ot R25.2 CRAMP AND SPASM 09/21/2018 DOE WOODS, ROZ Tineo Ot R41.0 DISORIENTATION, UNSPECIFIED 09/21/2018 DOE WOODS, ROZ Tineo Ot 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 09/21/2018 ROZ AZAR MD, Ot Z79.82 DETENTION (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 OF ASPIRIN 09/21/2018 ROZ AZAR MD, Ot Z80.3 FAMILY HISTORY OF MALIGNANT NEOPLASM OF 09/21/2018 ROZ AZAR MD, Ot Z82.49 FAMILY HX OF ISCHEM HEART DIS AND OTH DI 09/21/2018 ROZ AZAR MD, Ot Z86.73 PRSNL HX OF TIA (TIA), AND CEREB INFRC W 09/21/2018 ROZ AZAR MD, Ot Z87.19 PERSONAL HISTORY OF OTHER DISEASES OF TH 09/21/2018 ROZ AZAR MD, Ot Z87.891 PERSONAL HISTORY OF NICOTINE DEPENDENCE 09/21/2018 ROZ AZAR MD, Ot Z90.49 ACQUIRED ABSENCE OF OTHER SPECIFIED PART 09/21/2018 ROZ AZAR MD, Ot Z90.89 ACQUIRED ABSENCE OF OTHER ORGANS 09/26/2018 ROZ AZAR MD, Ot D64.9 ANEMIA, UNSPECIFIED 09/26/2018 ROZ AZAR MD, Ot F32.9 MAJOR DEPRESSIVE DISORDER, SINGLE EPISOD 09/26/2018 ROZ AZAR MD, Ot F41.9 ANXIETY DISORDER, UNSPECIFIED 09/26/2018 ROZ AZAR MD, Ot I12.9 HYPERTENSIVE CHRONIC KIDNEY DISEASE W ST 09/26/2018 ROZ AZAR MD, Ot I48.0 PAROXYSMAL ATRIAL FIBRILLATION 09/26/2018 ROZ AZAR MD, Ot M79.604 PAIN IN RIGHT LEG 09/26/2018 ROZ AZAR MD, Ot N18.9 CHRONIC KIDNEY DISEASE, UNSPECIFIED 09/26/2018 ROZ AZAR MD, Ot R25.2 CRAMP AND SPASM 09/26/2018 ROZ AZAR MD, Ot R41.0 DISORIENTATION, UNSPECIFIED 09/26/2018 ROZ AZAR MD, Ot 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 09/26/2018 ROZ AZAR MD, Ot Z79.82 DETENTION (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 OF ASPIRIN 09/26/2018 ROZ AZAR MD, Ot Z80.3 FAMILY HISTORY OF MALIGNANT NEOPLASM OF 09/26/2018 ROZ AZAR MD, Ot Z82.49 FAMILY HX OF ISCHEM HEART DIS AND OTH DI 09/26/2018 ROZ AZAR MD, Ot Z86.73 PRSNL HX OF TIA (TIA), AND CEREB INFRC W 09/26/2018 ROZ AZAR MD, Ot Z87.19 PERSONAL HISTORY OF OTHER DISEASES OF TH 09/26/2018 ROZ AZAR MD, Ot Z87.891 PERSONAL HISTORY OF NICOTINE DEPENDENCE 09/26/2018 ROZ AZAR MD, Ot Z90.49 ACQUIRED ABSENCE OF OTHER SPECIFIED PART 09/26/2018 ROZ AZAR MD, Ot Z90.89 ACQUIRED ABSENCE OF OTHER ORGANS 10/20/2018 ERNESTO FRITZ MD Ot 530.11 REFLUX ESOPHAGITIS 10/20/2018 ERNESTO FRITZ MD Ot V45.89 POSTSURGICAL STATES NEC 10/20/2018 ERNESTO FRITZ MD, Ot V72.84 EXAM PRE-OPERATIVE NOS 10/20/2018 DAPHNIE ODELL Ot 272.4 HYPERLIPIDEMIA NEC/NOS 10/20/2018 DAPHNIE ODELL Ot 397.0 TRICUSPID VALVE DISEASE 10/20/2018 DAPHNIE ODELL Ot 401.9 HYPERTENSION NOS 10/20/2018 DAPHNIE ODELL Ot 424.0 MITRAL VALVE DISORDER 10/20/2018 DAPHNIE ODELL Ot 786.09 RESPIRATORY ABNORM NEC 10/20/2018 TELLO WILKINSON MD Ot 585.3 CHRONIC KIDNEY DISEASE, STAGE III (MODER 10/20/2018 DOMI MARTINEZ MD Ot E78. 5 HYPERLIPIDEMIA, UNSPECIFIED 10/20/2018 DOMI MARTINEZ MD Ot I10 ESSENTIAL (PRIMARY) HYPERTENSION 10/20/2018 DOMI MARTINEZ MD Ot I63. 9 CEREBRAL INFARCTION, UNSPECIFIED 10/20/2018 DOMI MARTINEZ MD Ot I73. 9 PERIPHERAL VASCULAR DISEASE, UNSPECIFIED 10/20/2018 TELLO WILKINSON MD Ot I12.9 HYPERTENSIVE CHRONIC KIDNEY DISEASE W ST 10/20/2018 MINH WOODS, TELLO Razo Ot N18.9 CHRONIC KIDNEY DISEASE, UNSPECIFIED 10/20/2018 DOMI MARTINEZ MD Ot E78. 5 HYPERLIPIDEMIA, UNSPECIFIED 10/20/2018 DOMI MARTINEZ MD Ot F32. 9 MAJOR DEPRESSIVE DISORDER, SINGLE EPISOD 10/20/2018 DOMI MARTINEZ MD Ot I10 ESSENTIAL (PRIMARY) HYPERTENSION 10/20/2018 DOMI MARTINEZ MD Ot I63. 9 CEREBRAL INFARCTION, UNSPECIFIED 10/20/2018 DOMI MARTINEZ MD Ot I65. 23 OCCLUSION AND STENOSIS OF BILATERAL SENA 10/20/2018 DOMI MARTINEZ MD Ot Z79.899 OTHER DETENTION (CURRENT) DRUG THERAPY 10/20/2018 DOMI MARTINEZ MD, Ot Z87.891 PERSONAL HISTORY OF NICOTINE DEPENDENCE 10/20/2018 REJI WOODS, SALAS Katz Ot R19.7 DIARRHEA, UNSPECIFIED 10/20/2018 NIKOS MAZARIEGOSP Ot M41.86 OTHER FORMS OF SCOLIOSIS, LUMBAR REGION 10/20/2018 NIKOS MAZARIEGOS OLIVER FILTER OPERATOR Ot M43.16 SPONDYLOLISTHESIS, LUMBAR REGION 10/20/2018 NIKOS MAZARIEGOSP Ot M46.87 OTH INFLAMMATORY SPONDYLOPATHIES, LUMBOS 10/20/2018 NIKOS MAZARIEGOSP Ot M48.07 SPINAL STENOSIS, LUMBOSACRAL REGION 10/20/2018 NIKOS MAZARIEGOS OLIVER FILTER OPERATOR Ot M51.27 OTHER INTERVERTEBRAL DISC DISPLACEMENT, 10/20/2018 NIKOS MAZARIEGOS OLIVER FILTER OPERATOR Ot M51.36 OTHER INTERVERTEBRAL DISC DEGENERATION, 10/20/2018 NIKOS MAZARIEGOS OLIVER FILTER OPERATOR Ot R15.9 FULL INCONTINENCE OF FECES 10/20/2018 NIKOS MAZARIEGOS OLIVER FILTER OPERATOR Ot R19.7 DIARRHEA, UNSPECIFIED 10/20/2018 NIKOS MAZARIEGOSP Ot R63.5 ABNORMAL WEIGHT GAIN 10/20/2018 MAYURI GARAYP Ot E16.2 HYPOGLYCEMIA, UNSPECIFIED 10/20/2018 BAMBI WOODS, JUHI Ponce Ot I69.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 10/20/2018 CATRINA WOODS, ERNESTO Hernandez Ot 530.11 REFLUX ESOPHAGITIS 10/20/2018 ERNESTO FRITZ MD Ot V45.89 POSTSURGICAL STATES NEC 10/20/2018 ERNESTO FRITZ MD Ot V72.84 EXAM PRE-OPERATIVE NOS 10/20/2018 DAPHNIE ODELL Ot 272.4 HYPERLIPIDEMIA NEC/NOS 10/20/2018 DAPHNIE ODELL Ot 397.0 TRICUSPID VALVE DISEASE 10/20/2018 DAPHNIE ODELL Ot 401.9 HYPERTENSION NOS 10/20/2018 DAPHNIE ODELL Ot 424.0 MITRAL VALVE DISORDER 10/20/2018 DAPHNIE ODELL Ot 786.09 RESPIRATORY ABNORM NEC 10/20/2018 MINH WOODS, TELLO Razo Ot 585.3 CHRONIC KIDNEY DISEASE, STAGE III (MODER 10/20/2018 DOMI MARTINEZ MD Ot E78. 5 HYPERLIPIDEMIA, UNSPECIFIED 10/20/2018 DOMI MARTINEZ MD Ot I10 ESSENTIAL (PRIMARY) HYPERTENSION 10/20/2018 DOMI MARTINEZ MD Ot I63. 9 CEREBRAL INFARCTION, UNSPECIFIED 10/20/2018 DOMI MARTINEZ MD Ot I73. 9 PERIPHERAL VASCULAR DISEASE, UNSPECIFIED 10/20/2018 MINH WOODS, TELLO Razo Ot I12.9 HYPERTENSIVE CHRONIC KIDNEY DISEASE W ST 10/20/2018 MINH WOODS, TELLO Razo Ot N18.9 CHRONIC KIDNEY DISEASE, UNSPECIFIED 10/20/2018 DOMI MARTINEZ MD Ot E78. 5 HYPERLIPIDEMIA, UNSPECIFIED 10/20/2018 DOMI MARTINEZ MD Ot F32. 9 MAJOR DEPRESSIVE DISORDER, SINGLE EPISOD 10/20/2018 DOMI MARTINEZ MD Ot I10 ESSENTIAL (PRIMARY) HYPERTENSION 10/20/2018 DOMI MARTINEZ MD Ot I63. 9 CEREBRAL INFARCTION, UNSPECIFIED 10/20/2018 DOMI MARTINEZ MD Ot I65. 23 OCCLUSION AND STENOSIS OF BILATERAL SENA 10/20/2018 DOMI MARTINEZ MD Ot Z79.899 OTHER INVERFORM MACHINE OPERATOR (CURRENT) DRUG THERAPY 10/20/2018 DOMI MARTINEZ MD Ot Z87.891 PERSONAL HISTORY OF NICOTINE DEPENDENCE 10/20/2018 REJI WOODS, SALAS Katz Ot R19.7 DIARRHEA, UNSPECIFIED 10/20/2018 NIKOS MAZARIEGOS Ot M41.86 OTHER FORMS OF SCOLIOSIS, LUMBAR REGION 10/20/2018 NIKOS MAZARIEGOS OLIVER FILTER OPERATOR Ot M43.16 SPONDYLOLISTHESIS, LUMBAR REGION 10/20/2018 NIKOS MAZARIEGOS OLIVER FILTER OPERATOR Ot M46.87 OTH INFLAMMATORY SPONDYLOPATHIES, LUMBOS 10/20/2018 NIKOS MAZARIEGOS OLIVER FILTER OPERATOR Ot M48.07 SPINAL STENOSIS, LUMBOSACRAL REGION 10/20/2018 MAZARIEGOSNIKOS OLIVER FILTER OPERATOR Ot M51.27 OTHER INTERVERTEBRAL DISC DISPLACEMENT, 10/20/2018 MAZARIEGOSNIKOS OLIVER FILTER OPERATOR Ot M51.36 OTHER INTERVERTEBRAL DISC DEGENERATION, 10/20/2018 MAZARIEGOSNIKOS OLIVER FILTER OPERATOR Ot R15.9 FULL INCONTINENCE OF FECES 10/20/2018 NIKOS MAZARIEGOS OLIVER FILTER OPERATOR Ot R19.7 DIARRHEA, UNSPECIFIED 10/20/2018 NIKOS MAZARIEGOS OLIVER FILTER OPERATOR Ot R63.5 ABNORMAL WEIGHT GAIN 10/20/2018 MAYURI GARAY OLIVER FILTER OPERATOR Ot E16.2 HYPOGLYCEMIA, UNSPECIFIED 10/20/2018 BAMBI WOODS, JUHI Ponce Ot I69.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 10/20/2018 TEMITOPE DO BOBO K Ot D64.9 ANEMIA, UNSPECIFIED 10/20/2018 TEMITOPE DO BOBO K Ot E78.00 PURE HYPERCHOLESTEROLEMIA, UNSPECIFIED 10/20/2018 TEMITOPE DO BOBO K Ot F32.9 MAJOR DEPRESSIVE DISORDER, SINGLE EPISOD 10/20/2018 TEMITOPE DO BOBO K Ot F41.9 ANXIETY DISORDER, UNSPECIFIED 10/20/2018 TEMITOPE DO BOBO K Ot I10 ESSENTIAL (PRIMARY) HYPERTENSION 10/20/2018 TEMITOPE DO BOBO K Ot I48.91 UNSPECIFIED ATRIAL FIBRILLATION 10/20/2018 TEMITOPE DO BOBO K Ot I69.998 OTHER SEQUELAE FOLLOWING UNSPECIFIED CER 10/20/2018 TEMITOPE DO BOBO K Ot K21.9 GASTRO-ESOPHAGEAL REFLUX DISEASE WITHOUT 10/20/2018 TEMITOPE DO BOBO K Ot N28.9 DISORDER OF KIDNEY AND URETER, UNSPECIFI 10/20/2018 TEMITOPE DO BOBO K Ot R25.2 CRAMP AND SPASM 10/20/2018 TEMITOPE PATRICIA ALEXANDERA Ericka Ot R53.1 WEAKNESS 10/20/2018 TEMITOPE PATRICIA ALEXANDERA K Ot 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 10/20/2018 TEMITOPE ALEXANDERBOBO Ot Z79.82 INVERFORM MACHINE OPERATOR (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 OF ASPIRIN 10/20/2018 BOBO LINN DO Ot Z80.3 FAMILY HISTORY OF MALIGNANT NEOPLASM OF 10/20/2018 TEMITOPE BOBO ALEXANDER Ot Z82.49 FAMILY HX OF ISCHEM HEART DIS AND OTH DI 10/20/2018 TEMITOPE BOBO ALEXANDER Ot Z86.79 PERSONAL HISTORY OF OTHER DISEASES OF TH 10/20/2018 TEMITOPE ALEXANDERBOBO Ot Z87.891 PERSONAL HISTORY OF NICOTINE DEPENDENCE 10/20/2018 TEMITOPE ALEXANDERBOBO Ot Z88.5 ALLERGY STATUS TO NARCOTIC AGENT STATUS 10/20/2018 BOBO LINN DO Ot Z90.49 ACQUIRED ABSENCE OF OTHER SPECIFIED PART 10/20/2018 TEMITOPE DOBOBO Ot Z90.89 ACQUIRED ABSENCE OF OTHER ORGANS 10/20/2018 TEMITOPE BOBO Ot Z98.890 OTHER SPECIFIED POSTPROCEDURAL STATES 10/24/2018 BOBO LINN DO Ot D64.9 ANEMIA, UNSPECIFIED 10/24/2018 TEMITOPE BOBO ALEXANDER Ot E78.00 PURE HYPERCHOLESTEROLEMIA, UNSPECIFIED 10/24/2018 BOBO LINN DO Ot F32.9 MAJOR DEPRESSIVE DISORDER, SINGLE EPISOD 10/24/2018 TEMITOPE BOBO ALEXANDER Ot F41.9 ANXIETY DISORDER, UNSPECIFIED 10/24/2018 TEMITOPE PATRICIA ALEXANDERA Ericka Ot I10 ESSENTIAL (PRIMARY) HYPERTENSION 10/24/2018 BOBO LINN DO Ot I48.91 UNSPECIFIED ATRIAL FIBRILLATION 10/24/2018 TEMITOPE BOBO ALEXANDER Ot I69.998 OTHER SEQUELAE FOLLOWING UNSPECIFIED CER 10/24/2018 BOBO LINN DO Ot K21.9 GASTRO-ESOPHAGEAL REFLUX DISEASE WITHOUT 10/24/2018 BOBO LINN DO Ot N28.9 DISORDER OF KIDNEY AND URETER, UNSPECIFI 10/24/2018 BOBO LINN DO Ot R25.2 CRAMP AND SPASM 10/24/2018 BOBO LINN DO Ot R53.1 WEAKNESS 10/24/2018 BOBO LINN DO Ot 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 10/24/2018 BOBO LINN DO Ot Z79.82 INVERFORM MACHINE OPERATOR (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 OF ASPIRIN 10/24/2018 BOBO LINN DO Ot Z80.3 FAMILY HISTORY OF MALIGNANT NEOPLASM OF 10/24/2018 BOBO LINN DO Ot Z82.49 FAMILY HX OF ISCHEM HEART DIS AND OTH DI 10/24/2018 BOBO LINN DO Ot Z86.79 PERSONAL HISTORY OF OTHER DISEASES OF TH 10/24/2018 BOBO LINN DO Ot Z87.891 PERSONAL HISTORY OF NICOTINE DEPENDENCE 10/24/2018 BOBO LINN DO Ot Z88.5 ALLERGY STATUS TO NARCOTIC AGENT STATUS 10/24/2018 BOBO LINN DO Ot Z90.49 ACQUIRED ABSENCE OF OTHER SPECIFIED PART 10/24/2018 BOBO LINN DO Ot Z90.89 ACQUIRED ABSENCE OF OTHER ORGANS 10/24/2018 BOBO LINN DO Ot Z98.890 OTHER SPECIFIED POSTPROCEDURAL STATES 10/25/2018 JUHI LACY MD Ot I69.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 11/13/2018 JUHI LACY MD Ot I69.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 11/27/2018 JUHI LACY MD Ot I69.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 11/28/2018 JUHI LACY MD Ot I69.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 11/28/2018 JUHI LACY MD Ot I69.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 12/01/2018 JUHI LACY MD Ot I69.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 12/28/2018 JUHI LACY MD Ot I63 .9 CEREBRAL INFARCTION, UNSPECIFIED 01/02/2019 SANDY WILLIS DO Ot E78.00 PURE HYPERCHOLESTEROLEMIA, UNSPECIFIED 01/02/2019 SANDY WILLIS DO Ot F41.8 OTHER SPECIFIED ANXIETY DISORDERS 01/02/2019 SANDY WILLIS DO Ot I11.9 HYPERTENSIVE HEART DISEASE WITHOUT HEART 01/02/2019 SANDY WILLIS DO Ot I48.91 UNSPECIFIED ATRIAL FIBRILLATION 01/02/2019 SANDY WILLIS DO Ot I69.35 1 HEMIPLGA FOLLOWING CEREBRAL INFRC AFF RI 01/02/2019 WILLIS DO, SANDY Ot I73.9 PERIPHERAL VASCULAR DISEASE, UNSPECIFIED 01/02/2019 LAZARO ALEXANDER SANDY Ot K21.9 GASTRO-ESOPHAGEAL REFLUX DISEASE WITHOUT 01/02/2019 LAZARO ALEXANDER SANDY Ot M19.90 UNSPECIFIED OSTEOARTHRITIS, UNSPECIFIED 01/02/2019 LAZARO ALEXANDER SANDY Ot Z79.89 9 OTHER DETENTION (CURRENT) DRUG THERAPY 01/02/2019 EDWIN WILLIS DOI Ot Z80.3 FAMILY HISTORY OF MALIGNANT NEOPLASM OF 01/02/2019 LAZARO ALEXANDER SANDY Ot Z82.49 FAMILY HX OF ISCHEM HEART DIS AND OTH DI 01/02/2019 LAZARO ALEXANDER SANDY Ot Z87.89 1 PERSONAL HISTORY OF NICOTINE DEPENDENCE 01/02/2019 EDWIN WILLIS DOI Ot Z88.8 ALLERGY STATUS TO OTH DRUG/MEDS/BIOL SUB 01/02/2019 LAZARO ALEXANDER SANDY Ot Z90.89 ACQUIRED ABSENCE OF OTHER ORGANS 01/02/2019 EDWIN WILLIS DOI Ot E78.00 PURE HYPERCHOLESTEROLEMIA, UNSPECIFIED 01/02/2019 EDWIN WILLIS DOI Ot F41.8 OTHER SPECIFIED ANXIETY DISORDERS 01/02/2019 LAZARO ALEXANDER SANDY Ot I11.9 HYPERTENSIVE HEART DISEASE WITHOUT HEART 01/02/2019 EDWIN WILLIS DOI Ot I48.91 UNSPECIFIED ATRIAL FIBRILLATION 01/02/2019 EDWIN WILLIS DOI Ot I69.35 1 HEMIPLGA FOLLOWING CEREBRAL INFRC AFF RI 01/02/2019 EDWIN WILLIS DOI Ot I73.9 PERIPHERAL VASCULAR DISEASE, UNSPECIFIED 01/02/2019 EDWIN WILLIS DOI Ot K21.9 GASTRO-ESOPHAGEAL REFLUX DISEASE WITHOUT 01/02/2019 EDWIN WILLIS DOI Ot M19.90 UNSPECIFIED OSTEOARTHRITIS, UNSPECIFIED 01/02/2019 LAZARO ALEXANDER SANDY Ot Z79.89 9 OTHER DETENTION (CURRENT) DRUG THERAPY 01/02/2019 EDWIN WILLIS DOI Ot Z80.3 FAMILY HISTORY OF MALIGNANT NEOPLASM OF 01/02/2019 LAZARO ALEXANDER SANDY Ot Z82.49 FAMILY HX OF ISCHEM HEART DIS AND OTH DI 01/02/2019 LAZARO ALEXANDER SANDY Ot Z87.89 1 PERSONAL HISTORY OF NICOTINE DEPENDENCE 01/02/2019 EDWIN WILLIS DOI Ot Z88.8 ALLERGY STATUS TO OTH DRUG/MEDS/BIOL SUB 01/02/2019 LAZARO ALEXANDER SANDY Ot Z90.89 ACQUIRED ABSENCE OF OTHER ORGANS 01/10/2019 EDWIN WILLIS DOI Ot E78.00 PURE HYPERCHOLESTEROLEMIA, UNSPECIFIED 01/10/2019 LAZARO ALEXANDER SANDY Ot F41.8 OTHER SPECIFIED ANXIETY DISORDERS 01/10/2019 LAZARO ALEXANDER SANDY Ot I11.9 HYPERTENSIVE HEART DISEASE WITHOUT HEART 01/10/2019 LAZARO ALEXANDER SANDY Ot I48.91 UNSPECIFIED ATRIAL FIBRILLATION 01/10/2019 LAZARO ALEXANDER SANDY Ot I69.35 1 HEMIPLGA FOLLOWING CEREBRAL INFRC AFF RI 01/10/2019 LAZARO ALEXANDER SANDY Ot I73.9 PERIPHERAL VASCULAR DISEASE, UNSPECIFIED 01/10/2019 LAZARO ALEXANDER SANDY Ot K21.9 GASTRO-ESOPHAGEAL REFLUX DISEASE WITHOUT 01/10/2019 LAZARO ALEXANDER SANDY Ot M19.90 UNSPECIFIED OSTEOARTHRITIS, UNSPECIFIED 01/10/2019 LAZARO ALEXANDER SANDY Ot Z79.89 9 OTHER INVERFORM MACHINE OPERATOR (CURRENT) DRUG THERAPY 01/10/2019 EDWIN WILLIS DOI Ot Z80.3 FAMILY HISTORY OF MALIGNANT NEOPLASM OF 01/10/2019 LAZARO ALEXANDER SANDY Ot Z82.49 FAMILY HX OF ISCHEM HEART DIS AND OTH DI 01/10/2019 EDWIN WILLIS DOI Ot Z87.89 1 PERSONAL HISTORY OF NICOTINE DEPENDENCE 01/10/2019 EDWIN WILLIS DOI Ot Z88.8 ALLERGY STATUS TO OTH DRUG/MEDS/BIOL SUB 01/10/2019 LAZARO ALEXANDER SANDY Ot Z90.89 ACQUIRED ABSENCE OF OTHER ORGANS 01/10/2019 SANDY WILLIS DO Ot E78.00 PURE HYPERCHOLESTEROLEMIA, UNSPECIFIED 01/10/2019 LAZARO ALEXANDER SANDY Ot F41.8 OTHER SPECIFIED ANXIETY DISORDERS 01/10/2019 LAZARO ALEXANDER SANDY Ot I11.9 HYPERTENSIVE HEART DISEASE WITHOUT HEART 01/10/2019 EDWIN WILLIS DOI Ot I48.91 UNSPECIFIED ATRIAL FIBRILLATION 01/10/2019 LAZARO ALEXANDER SANDY Ot I69.35 1 HEMIPLGA FOLLOWING CEREBRAL INFRC AFF RI 01/10/2019 LAZARO ALEXANDER SANDY Ot I73.9 PERIPHERAL VASCULAR DISEASE, UNSPECIFIED 01/10/2019 LAZARO ALEXANDER SANDY Ot K21.9 GASTRO-ESOPHAGEAL REFLUX DISEASE WITHOUT 01/10/2019 LAZARO ALEXANDER SANDY Ot M19.90 UNSPECIFIED OSTEOARTHRITIS, UNSPECIFIED 01/10/2019 LAZARO ALEXANDER SANDY Ot Z79.89 9 OTHER INVERFORM MACHINE OPERATOR (CURRENT) DRUG THERAPY 01/10/2019 WILLIS SANDY ALEXANDER Ot Z80.3 FAMILY HISTORY OF MALIGNANT NEOPLASM OF 01/10/2019 LAZARO ALEXANDERSANDY Ot Z82.49 FAMILY HX OF ISCHEM HEART DIS AND OTH DI 01/10/2019 WILLIS SANDY ALEXANDER Ot Z87.89 1 PERSONAL HISTORY OF NICOTINE DEPENDENCE 01/10/2019 WILLISSANDY CULP DO Ot Z88.8 ALLERGY STATUS TO OTH DRUG/MEDS/BIOL SUB 01/10/2019 WILL[place]ANDY CULP DO Ot Z90.89 ACQUIRED ABSENCE OF OTHER ORGANS 02/07/2019 BAMBI WOODS, JUHI Ponce Ot I69.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 02/22/2019 JUHI LACY MD Ot I69.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 02/27/2019 JUHI LACY MD Ot I69.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 02/28/2019 BAMBI WOODS, JUHI Ponce Ot I69.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 03/05/2019 JUHI LACY MD Ot I69.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 03/06/2019 BAMBI WOODS, JUHI Ponce Ot I69.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 03/22/2019 BAMBI WOODS, JUHI Ponce Ot F32 .9 MAJOR DEPRESSIVE DISORDER, SINGLE EPISOD 03/22/2019 BAMBI WOODS, JUHI Ponce Ot G81.90 HEMIPLEGIA, UNSPECIFIED AFFECTING UNSPEC 03/22/2019 BAMBI WOODS, JUHI Ponce Ot H26 .9 UNSPECIFIED CATARACT 03/22/2019 BAMBI WOODS, JUHI Ponce Ot H40 .9 UNSPECIFIED GLAUCOMA 03/22/2019 JUHI LACY MD Ot I63 .9 CEREBRAL INFARCTION, UNSPECIFIED 03/22/2019 BAMBI WOODS, JUHI Ponce Ot M19.90 UNSPECIFIED OSTEOARTHRITIS, UNSPECIFIED 03/22/2019 BAMBI WOODS, JUHI Ponce Ot M81 .0 AGE-RELATED OSTEOPOROSIS W/O CURRENT PAT 03/27/2019 ALLISON WOODS, KENZIE Ortiz Ot E78 .5 HYPERLIPIDEMIA, UNSPECIFIED 03/27/2019 ALLISONKENZIE BARTLETT MD, Ot F32 .9 MAJOR DEPRESSIVE DISORDER, SINGLE EPISOD 03/27/2019 KENZIE COOPER MD, Ot I07 .1 RHEUMATIC TRICUSPID INSUFFICIENCY 03/27/2019 KENZIE COOPER MD, Ot I12 .9 HYPERTENSIVE CHRONIC KIDNEY DISEASE W ST 03/27/2019 KENZIE COOPER MD, Ot I25.10 ATHSCL HEART DISEASE OF [place] CORONARY 03/27/2019 KENZIE COOPER MD, Ot I48 .0 PAROXYSMAL ATRIAL FIBRILLATION 03/27/2019 KENZIE COOPER MD, Ot I65.23 OCCLUSION AND STENOSIS OF BILATERAL [place] 03/27/2019 KENZIE COOPER MD, Ot M06 .9 RHEUMATOID ARTHRITIS, UNSPECIFIED 03/27/2019 KENZIE COOPER MD, Ot M79 .7 FIBROMYALGIA 03/27/2019 KENZIE COOPER MD, Ot N18 .3 CHRONIC KIDNEY DISEASE, STAGE 3 (MODERAT 03/27/2019 KENZIE COOPER MD, Ot S42.022A DISP FX OF SHAFT OF LEFT CLAVICLE, INIT 03/27/2019 KENZIE COOPER MD, Ot W19.XXXA UNSPECIFIED FALL, INITIAL ENCOUNTER 03/27/2019 KENZIE COOPER MD, Ot Z79.01 DETENTION (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 OF ANTICOAGULANT 03/27/2019 KENZIE COOPER MD, Ot Z79.82 INVERFORM MACHINE OPERATOR (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 OF ASPIRIN 03/27/2019 KENZIE COOPER MD, Ot Z79.891 DETENTION (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 OF OPIATE ANALGE 03/27/2019 KENZIE COOPER MD, Ot Z79.899 OTHER INVERFORM MACHINE OPERATOR (CURRENT) DRUG THERAPY 03/27/2019 KENZIE COOPER MD, Ot Z80 .3 FAMILY HISTORY OF MALIGNANT NEOPLASM OF 03/27/2019 KENZIE COOPER MD, Ot Z82 .3 FAMILY HISTORY OF STROKE 03/27/2019 KENZIE COOPER MD, Ot Z82.49 FAMILY HX OF ISCHEM HEART DIS AND OTH DI 03/27/2019 KENZIE COOPER MD, Ot Z83 .3 FAMILY HISTORY OF DIABETES MELLITUS 03/27/2019 KENZIE COOPER MD, Ot Z86.73 PRSNL HX OF TIA (TIA), AND CEREB INFRC W 03/27/2019 KENZIE COOPER MD, Ot Z87.891 PERSONAL HISTORY OF NICOTINE DEPENDENCE 03/27/2019 KENZIE COOPER MD, Ot Z88 .8 ALLERGY STATUS TO OTH DRUG/MEDS/BIOL SUB 03/27/2019 KENZIE COOPER MD, Ot E78 .5 HYPERLIPIDEMIA, UNSPECIFIED 03/27/2019 KENZIE COOPER MD, Ot F32 .9 MAJOR DEPRESSIVE DISORDER, SINGLE EPISOD 03/27/2019 KENZIE COOPER MD, Ot I07 .1 RHEUMATIC TRICUSPID INSUFFICIENCY 03/27/2019 KENZIE COOPER MD, Ot I12 .9 HYPERTENSIVE CHRONIC KIDNEY DISEASE W ST 03/27/2019 KENZIE COOPER MD, Ot I25.10 ATHSCL HEART DISEASE OF [place] CORONARY 03/27/2019 KENZIE COOPER MD, Ot I48 .0 PAROXYSMAL ATRIAL FIBRILLATION 03/27/2019 KENZIE COOPER MD, Ot I65.23 OCCLUSION AND STENOSIS OF BILATERAL SENA 03/27/2019 KENZIE COOPER MD, Ot M06 .9 RHEUMATOID ARTHRITIS, UNSPECIFIED 03/27/2019 KENZIE COOPER MD, Ot M79 .7 FIBROMYALGIA 03/27/2019 KENZIE COOPER MD, Ot N18 .3 CHRONIC KIDNEY DISEASE, STAGE 3 (MODERAT 03/27/2019 KENZIE COOPER MD, Ot S42.022A DISP FX OF SHAFT OF LEFT CLAVICLE, INIT 03/27/2019 KENZIE COOPER MD, Ot W19.XXXA UNSPECIFIED FALL, INITIAL ENCOUNTER 03/27/2019 KENZIE COOPER MD, Ot 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 03/27/2019 KENZIE COOPER MD, Ot Z79.82 DETENTION (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 OF ASPIRIN 03/27/2019 KENZIE COOPER MD, Ot Z79.891 DETENTION (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 OF OPIATE ANALGE 03/27/2019 KENZIE COOPER MD, Ot Z79.899 OTHER DETENTION (CURRENT) DRUG THERAPY 03/27/2019 KENZIE COOPER MD, Ot Z80 .3 FAMILY HISTORY OF MALIGNANT NEOPLASM OF 03/27/2019 KENZIE COOPER MD, Ot Z82 .3 FAMILY HISTORY OF STROKE 03/27/2019 KENZIE COOPER MD, Ot Z82.49 FAMILY HX OF ISCHEM HEART DIS AND OTH DI 03/27/2019 KENZIE COOPER MD, Ot Z83 .3 FAMILY HISTORY OF DIABETES MELLITUS 03/27/2019 KENZIE COOPER MD, Ot Z86.73 PRSNL HX OF TIA (TIA), AND CEREB INFRC W 03/27/2019 KENZIE COOPER MD, Ot Z87.891 PERSONAL HISTORY OF NICOTINE DEPENDENCE 03/27/2019 KENZIE OCOPER MD, Ot Z88 .8 ALLERGY STATUS TO [facility] DRUG/MEDS/BIOL SUB 03/29/2019 [place] DO, BOBO K Ot E78.00 PURE HYPERCHOLESTEROLEMIA, UNSPECIFIED 03/29/2019 [place] DO, BOBO K Ot F32.9 MAJOR DEPRESSIVE DISORDER, SINGLE EPISOD 03/29/2019 [place] DO, BOBO K Ot F41.9 ANXIETY DISORDER, UNSPECIFIED 03/29/2019 [place] DO, BOBO K Ot H53.8 OTHER VISUAL DISTURBANCES 03/29/2019 [facility] DO BOBO K Ot I10 ESSENTIAL (PRIMARY) HYPERTENSION 03/29/2019 [place] DO, BOBO K Ot I25.10 ATHSCL HEART DISEASE OF [place] CORONARY 03/29/2019 [place] DO, BOBO K Ot I48.0 PAROXYSMAL ATRIAL FIBRILLATION 03/29/2019 [place] DO, BOBO K Ot I73.9 PERIPHERAL VASCULAR DISEASE, UNSPECIFIED 03/29/2019 [place] DO, BOBO K Ot K21.9 GASTRO-ESOPHAGEAL REFLUX DISEASE WITHOUT 03/29/2019 [place] DO, BOBO K Ot M06.9 RHEUMATOID ARTHRITIS, UNSPECIFIED 03/29/2019 [place] DO BOBO K Ot M79.7 FIBROMYALGIA 03/29/2019 [place] DO BOBO K Ot R53.1 WEAKNESS 03/29/2019 [place] DO BOBO K Ot Z79.01 DETENTION (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 OF ANTICOAGULANT 03/29/2019 [place] DO BOBO K Ot Z79.82 DETENTION (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 OF ASPIRIN 03/29/2019 [place] DO BOBO K Ot Z80.3 FAMILY HISTORY OF MALIGNANT NEOPLASM OF 03/29/2019 [place] DOPATRICIAA K Ot Z82.49 FAMILY HX OF ISCHEM HEART DIS AND OTH DI 03/29/2019 [place] DOPATRICIAA K Ot Z86.73 PRSNL HX OF TIA (TIA), AND CEREB INFRC W 03/29/2019 [place] DO, BOBO Ericka Ot Z87.891 PERSONAL HISTORY OF NICOTINE DEPENDENCE [facility] ALLERGY STATUS TO NARCOTIC AGENT STATUS 03/29/2019 [place] DO, BOBO Ericka Ot Z88.8 ALLERGY STATUS TO OTH DRUG/MEDS/BIOL SUB 03/29/2019 [place] DO BOBO Ericka Ot Z90.49 ACQUIRED ABSENCE OF OTHER SPECIFIED PART 03/29/2019 [place] DO, BOBO Ericka Ot Z90.89 ACQUIRED ABSENCE OF OTHER ORGANS 04/03/2019 [place] DO, BOBO Ericka Ot E78.00 PURE HYPERCHOLESTEROLEMIA, UNSPECIFIED 04/03/2019 [place] DO, BOBO K Ot F32.9 MAJOR DEPRESSIVE DISORDER, SINGLE EPISOD 04/03/2019 [place] DO, BOBO K Ot F41.9 ANXIETY DISORDER, UNSPECIFIED 04/03/2019 [place] DO BOBO K Ot H53.8 OTHER VISUAL DISTURBANCES 04/03/2019 [place] DOPATRICIAA K Ot I10 ESSENTIAL (PRIMARY) HYPERTENSION 04/03/2019 [place] DO, BOBO K Ot I25.10 ATHSCL HEART DISEASE OF [place] CORONARY 04/03/2019 [place] DOPATRICIAA K Ot I48.0 PAROXYSMAL ATRIAL FIBRILLATION 04/03/2019 [place] DO, BOBO K Ot I73.9 PERIPHERAL VASCULAR DISEASE, UNSPECIFIED 04/03/2019 [place] DO, BOBO K Ot K21.9 GASTRO-ESOPHAGEAL REFLUX DISEASE WITHOUT 04/03/2019 [place] DO BOBO K Ot M06.9 RHEUMATOID ARTHRITIS, UNSPECIFIED 04/03/2019 [place] DOPATRICIAA K Ot M79.7 FIBROMYALGIA 04/03/2019 [place] DOPATRICIAA K Ot R53.1 WEAKNESS 04/03/2019 [place] DO BOBO K Ot Z79.01 DETENTION (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 OF ANTICOAGULANT 04/03/2019 [place] DOPATRICIAA K Ot Z79.82 DETENTION (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 OF ASPIRIN 04/03/2019 [place] DO BOBO K Ot Z80.3 FAMILY HISTORY OF MALIGNANT NEOPLASM OF 04/03/2019 [place] DOPATRICIAA K Ot Z82.49 FAMILY HX OF ISCHEM HEART DIS AND OTH DI 04/03/2019 [place] DOBOBO Ot Z86.73 PRSNL HX OF TIA (TIA), AND CEREB INFRC W 04/03/2019 [place] DO, BOBO Barnett Ot Z87.891 PERSONAL HISTORY OF NICOTINE DEPENDENCE 04/03/2019 [place] DO, BOBO Barnett Ot Z88.5 ALLERGY STATUS TO NARCOTIC AGENT STATUS 04/03/2019 [place] DO, BOBO Ericka Ot Z88.8 ALLERGY STATUS TO OTH DRUG/MEDS/BIOL SUB 04/03/2019 [place] DOPATRICIAA Ericka Ot Z90.49 ACQUIRED ABSENCE OF OTHER SPECIFIED PART 04/03/2019 [place] DO, BOBO Ericka Ot Z90.89 ACQUIRED ABSENCE OF OTHER ORGANS 04/05/2019 [place] DO, BOBO Barnett Ot E78.00 PURE HYPERCHOLESTEROLEMIA, UNSPECIFIED 04/05/2019 [place] DO, BOBO Ericka Ot F32.9 MAJOR DEPRESSIVE DISORDER, SINGLE EPISOD 04/05/2019 [place] DO, BOBO Ericka Ot F41.9 ANXIETY DISORDER, UNSPECIFIED 04/05/2019 [place] DO, BOBO Ericka Ot H53.8 OTHER VISUAL DISTURBANCES 04/05/2019 [place] DO, BOBO K Ot I10 ESSENTIAL (PRIMARY) HYPERTENSION 04/05/2019 [facility], BOBO K Ot I25.10 ATHSCL HEART DISEASE OF [place] CORONARY 04/05/2019 [facility] Eric[facility] Ot I48.0 PAROXYSMAL ATRIAL FIBRILLATION 04/05/2019 [facility], BOBO K Ot I73.9 PERIPHERAL VASCULAR DISEASE, UNSPECIFIED 04/05/2019 [facility] Ot K21.9 GASTRO-ESOPHAGEAL REFLUX DISEASE WITHOUT 04/05/2019 [place] DOPATRICIAA K Ot M06.9 RHEUMATOID ARTHRITIS, UNSPECIFIED 04/05/2019 [place] DOPATRICIAA K Ot M79.7 FIBROMYALGIA 04/05/2019 [place] DOPATRICIAA K Ot R53.1 WEAKNESS 04/05/2019 [place] DOPATRICIAA K Ot 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 04/05/2019 [place] DOPATRICIAA K Ot Z79.82 DETENTION (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 OF ASPIRIN 04/05/2019 [place] DOPATRICIAA K Ot Z80.3 FAMILY HISTORY OF MALIGNANT NEOPLASM OF 04/05/2019 [facility] Eric[facility] Ot Z82.49 FAMILY HX OF ISCHEM HEART DIS AND OTH DI 04/05/2019 BOBO LINN DO Ot Z86.73 PRSNL HX OF TIA (TIA), AND CEREB INFRC W 04/05/2019 BOBO LINN DO Ot Z87.891 PERSONAL HISTORY OF NICOTINE DEPENDENCE 04/05/2019 BOBO LINN DO Ot Z88.5 ALLERGY STATUS TO NARCOTIC AGENT STATUS 04/05/2019 BOBO LINN DO Ot Z88.8 ALLERGY STATUS TO OTH DRUG/MEDS/BIOL SUB 04/05/2019 BOBO LINN DO Ot Z90.49 ACQUIRED ABSENCE OF OTHER SPECIFIED PART 04/05/2019 BOB[facility] LINN DO Ot Z90.89 ACQUIRED ABSENCE OF OTHER ORGANS 07/18/2019 DOMI MARTINEZ MD Ot E78. 5 HYPERLIPIDEMIA, UNSPECIFIED 07/18/2019 DOMI MARTINEZ MD Ot I10 ESSENTIAL (PRIMARY) HYPERTENSION 07/18/2019 DOMI MARTINEZ MD Ot I63. 9 CEREBRAL INFARCTION, UNSPECIFIED 07/18/2019 DMOI MARTINEZ MD Ot I73. 9 PERIPHERAL VASCULAR DISEASE, UNSPECIFIED 07/18/2019 MINH WOODS, TELLO Razo Ot I12.9 HYPERTENSIVE CHRONIC KIDNEY DISEASE W ST 07/18/2019 TELLO WILKINSON MD Ot N18.9 CHRONIC KIDNEY DISEASE, UNSPECIFIED 07/18/2019 DOMI MARTINEZ MD Ot E78. 5 HYPERLIPIDEMIA, UNSPECIFIED 07/18/2019 DOMI MARTINEZ MD Ot F32. 9 MAJOR DEPRESSIVE DISORDER, SINGLE EPISOD 07/18/2019 DOMI MARTINEZ MD Ot I10 ESSENTIAL (PRIMARY) HYPERTENSION 07/18/2019 DOMI MARTINEZ MD Ot I63. 9 CEREBRAL INFARCTION, UNSPECIFIED 07/18/2019 DOMI MARTINEZ MD Ot I65. 23 OCCLUSION AND STENOSIS OF BILATERAL SENA 07/18/2019 DOMI MARTINEZ MD Ot Z79.899 OTHER DETENTION (CURRENT) DRUG THERAPY 07/18/2019 DOMI MARTINEZ MD Ot Z87.891 PERSONAL HISTORY OF NICOTINE DEPENDENCE 07/18/2019 REJI WOODS, SALAS Katz Ot R19.7 DIARRHEA, UNSPECIFIED 07/18/2019 NIKOS MAZARIEGOS Ot M41.86 OTHER FORMS OF SCOLIOSIS, LUMBAR REGION 07/18/2019 MAZARIEGOS, NIKOS M OLIVER FILTER OPERATOR Ot M43.16 SPONDYLOLISTHESIS, LUMBAR REGION 07/18/2019 YAIR NIKOS Mckinney OLIVER FILTER OPERATOR Ot M46.87 OTH INFLAMMATORY SPONDYLOPATHIES, LUMBOS 07/18/2019 YAIR NIKOS Mckinney OLIVER FILTER OPERATOR Ot M48.07 SPINAL STENOSIS, LUMBOSACRAL REGION 07/18/2019 YAIR NIKOS Mckinney OLIVER FILTER OPERATOR Ot M51.27 OTHER INTERVERTEBRAL DISC DISPLACEMENT, 07/18/2019 YAIR NIKOS Mckinney OLIVER FILTER OPERATOR Ot M51.36 OTHER INTERVERTEBRAL DISC DEGENERATION, 07/18/2019 YAIR NIKOS Mckinney OLIVER FILTER OPERATOR Ot R15.9 FULL INCONTINENCE OF FECES 07/18/2019 YAIR NIKOS Mckinney OLIVER FILTER OPERATOR Ot R19.7 DIARRHEA, UNSPECIFIED 07/18/2019 YAIR NIKOS Mckinney OLIVER FILTER OPERATOR Ot R63.5 ABNORMAL WEIGHT GAIN 07/18/2019 TANISHAMAYURI OLIVER FILTER OPERATOR Ot E16.2 HYPOGLYCEMIA, UNSPECIFIED 08/01/2019 KARAN DARIO ALEXANDER Ot 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, 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 08/01/2019 KARAN DARIO ALEXANDER Ot E53.8 DEFICIENCY OF OTHER SPECIFIED B GROUP 08/01/2019 [facility] DARIO ALEXANDER Ot I12.9 HYPERTENSIVE CHRONIC KIDNEY DISEASE W ST 08/01/2019 DARIO RUSSO DO Ot N17.8 OTHER ACUTE KIDNEY FAILURE 08/01/2019 KARAN DARIO ALEXANDER Ot N18.3 CHRONIC KIDNEY DISEASE, STAGE 3 (MODERAT 08/01/2019 [facility] DARIO ALEXANDER Ot N26.1 ATROPHY OF KIDNEY (TERMINAL) Procedures Code Description Performed By Per formed On 45.16 ESOP HAGOGASTRODUODENOSCOPY [EGD] W/CLOSE 01/03/2009 45.23 COLO NOSCOPY 01/03/2009 45.13 OTHE R ENDOSCOPY OF SM INTEST 01/15/[address]/INFUSE THROMBOLYTIC AGENT 03/20/2014 [id number] IN TRODUCE OTH THROMBOLYTIC IN PERIPH VEI 01/02/2017 Results [...] g/dL 6.0-8.3 Thyroid Stimulating Hormone - 07/01/16 1 6:30 TSH 1.37 mIU/mL 0.32-5.00 Complete blood count (CBC) with automate d white blood cell (WBC) differential - 09/05/16 20:54 Blood leukocytes automated count (number/volume) 10.7 10*3/uL 4.3-11.0 Blood erythrocytes automated count (number/volume) 4.27 10*6/uL 4.35-5.85 Venous blood hemoglobin measurement (mass/volume) 13.6 g/dL 11.5-16.0 Blood hematocrit (volume fraction) 42 % 35-52 Automated erythrocyte mean corpuscular volume 99 [ foz_us] 80-99 Automated erythrocyte mean corpuscular h emoglobin (mass per erythrocyte) 32 pg 25-34 Automated erythrocyte mean corpuscular h emoglobin concentration measurement (mass/volume) 32 g/dL 32-36 Automated erythrocyte distribution width ratio 12. 4 % 10.0- 14.5 Automated blood platelet count (count/volume) 149 10*3/uL [...] 10*3 1.0-4.0 Blood monocytes automated count (number/volume) 1. 0 10*3 0.0-1.0 Automated eosinophil count 0.1 10*3/uL 0 .0-0.3 Automated blood basophil count (count/volume) 0.0 10*3/uL 0.0-0.1 PT panel in platelet poor plasma by coag ulation assay - 09/05/16 20:54 Prothrombin time (PT) in platelet poor plasma by coagu lation assay 11.7 s 12.2-14.7 INR in platelet poor plasma or blood by coagulation as say 0.9 0.8-1.4 Activated partial thromboplastin time (a PTT) in platelet poor plasma bycoagulation assay - 09/05/16 20:54 Activated partial thromboplastin time (a PTT) in platelet poor plasma bycoagulation assay 23 s 24-35 Comprehensive metabolic panel - 09/05/16 20:54 Serum or plasma sodium measurement (moles/volume) 144 mmol/L 135-145 Serum or plasma potassium measurement (moles/volume) 3.5 mmol/L 3.6-5.0 Serum or plasma chloride measurement (moles/volume) 113 mmol/L 98-107 Carbon dioxide 19 mmol/L 21-32 Serum or plasma anion gap determination (moles/volume) 12 mmol/L 5-14 Serum or plasma urea nitrogen measurement (mass/volume ) 13 mg/dL 7-18 Serum or plasma creatinine measurement (mass/volume) 1.33 mg/dL 0.60-1.30 Serum or plasma urea nitrogen/creatinine mass ratio 10 0-20 Serum or plasma creatinine measurement w ith calculation of estimated glomerular filtration rate 39 NRG Serum or plasma glucose measurement (mass/volume) 84 mg/dL 70-105 Serum or plasma calcium measurement (mass/volume) 9.8 mg/dL 8.5-10.1 Serum or plasma total bilirubin measurement (mass/volu me) 0.7 mg/dL 0.1-1.0 Serum or plasma alkaline phosphatase buddy surement (enzymatic activity/volume) 110 U/L 40-136 Serum or plasma aspartate aminotransfera se measurement (enzymatic activity/volume) 25 U/L 5-34 Serum or plasma alanine aminotransferase measurement (enzymatic activity/volume) 20 U/L 0-55 Serum or plasma protein measurement (mass/volume) 6.7 g/dL 6.4-8.2 Serum or plasma albumin measurement (mass/volume) 4.1 g/dL 3.2-4.5 Magnesium - 09/05/16 20:54 Magnesium 2.1 mg/dL 1.8-2.4 Serum or plasma creatine kinase measurem ent (enzymatic activity/volume) - 09/05/16 20:54 Serum or plasma creatine kinase measurem ent (enzymatic activity/volume) 103 U/L 29-168 Serum or plasma creatine kinase MB measu rement (enzymatic activity/volume) - 09/05/16 20:54 Serum or plasma creatine kinase MB measu rement (enzymatic activity/volume) 2.4 ng/mL <6.6 Serum or plasma troponin i.cardiac measu rement (mass/volume) - 09/05/16 20:54 Serum or plasma troponin i.cardiac measurement (mass/v olume) < ng/mL <0.30 Serum or plasma thyrotropin measurement by detection limit <=0.05 miu/l (units/volume) - 09/05/16 20:54 Serum or plasma thyrotropin measurement by detection limit <=0.05 miu/l (units/volume) 0.59 u[iU]/mL 0.35-4.94 Capillary blood glucose measurement by g lucometer (mass/volume) - 09/05/16 20:58 Capillary blood glucose measurement by glucometer (mas s/volume) 99 mg/dL 70-110 Blood lactic acid measurement (moles/vol ume) - 09/05/16 21:34 Blood lactic acid measurement (moles/volume) 1.13 mmol/L 0.50-2.00 Bacterial blood culture - 09/05/16 21:34 Bacterial blood culture NG NRG Bacterial blood culture - 09/05/16 21:35 Bacterial blood culture NG NRG Complete urinalysis with reflex to cultu re - 09/05/16 22:40 Urine color determination YELLOW NRG Urine clarity determination CLEAR NR G Urine pH measurement by test strip 5 5-9 Specific gravity of urine by test strip 1.020 1.016-1.022 Urine protein assay by test strip, semi-quantitative 3+ NEGATIVE Urine glucose detection by automated test strip NE GATIVE NEGATIVE Erythrocytes detection in urine sediment by light micr oscopy NEGATIVE NEGATIVE Urine ketones detection by automated test strip 1+ NEGATIVE Urine nitrite detection by test strip NEGATIVE NEGATIVE Urine total bilirubin detection by test strip 1+ NEGATIVE Urine urobilinogen measurement by automated test strip (mass/volume) 1 mg/dL NORMAL Urine leukocyte esterase detection by dipstick 1+ NEGATIVE Automated urine sediment erythrocyte cou nt by microscopy (number/high power field) NONE NRG Automated urine sediment leukocyte count by microscopy (number/high power field) NONE NRG Bacteria detection in urine sediment by light microsco py NEGATIVE NRG Squamous epithelial cells detection in u rine sediment by light microscopy 0-2 NRG Crystals detection in urine sediment by light microsco py NONE NRG Casts detection in urine sediment by light microscopy NONE NRG Mucus detection in urine sediment by light microscopy NEGATIVE NRG Complete urinalysis with reflex to culture NO NRG Bacterial urine culture - 09/05/16 22:40 Bacterial urine culture NG NRG Complete blood count (CBC) with automate d white blood cell (WBC) differential - 09/06/16 05:25 Blood leukocytes automated count (number/volume) 7.4 10*3/uL 4.3-11.0 Blood erythrocytes automated count (number/volume) 3.95 10*6/uL 4.35-5.85 Venous blood hemoglobin measurement (mass/volume) 12.8 g/dL 11.5-16.0 Blood hematocrit (volume fraction) 39 % 35-52 Automated erythrocyte mean corpuscular volume 99 [ foz_us] 80-99 Automated erythrocyte mean corpuscular h emoglobin (mass per erythrocyte) 32 pg 25-34 Automated erythrocyte mean corpuscular h emoglobin concentration measurement (mass/volume) 33 g/dL 32-36 Automated erythrocyte distribution width ratio 12. 1 % 10.0- 14.5 Automated blood platelet count (count/volume) 132 10*3/uL [...] 10*3 1.0-4.0 Blood monocytes automated count (number/volume) 0. 7 10*3 0.0-1.0 Automated eosinophil count 0.1 10*3/uL 0 .0-0.3 Automated blood basophil count (count/volume) 0.0 10*3/uL 0.0-0.1 Comprehensive metabolic panel - 09/06/16 05:25 Serum or plasma sodium measurement (moles/volume) 143 mmol/L 135-145 Serum or plasma potassium measurement (moles/volume) 3.2 mmol/L 3.6-5.0 Serum or plasma chloride measurement (moles/volume) 114 mmol/L 98-107 Carbon dioxide 20 mmol/L 21-32 Serum or plasma anion gap determination (moles/volume) 9 mmol/L 5-14 Serum or plasma urea nitrogen measurement (mass/volume ) 13 mg/dL 7-18 Serum or plasma creatinine measurement (mass/volume) 1.18 mg/dL 0.60-1.30 Serum or plasma urea nitrogen/creatinine mass ratio 11 0-20 Serum or plasma creatinine measurement w ith calculation of estimated glomerular filtration rate 45 NRG Serum or plasma glucose measurement (mass/volume) 168 mg/dL 70-105 Serum or plasma calcium measurement (mass/volume) 9.0 mg/dL 8.5-10.1 Serum or plasma total bilirubin measurement (mass/volu me) 0.4 mg/dL 0.1-1.0 Serum or plasma alkaline phosphatase buddy surement (enzymatic activity/volume) 91 U/L 40-136 Serum or plasma aspartate aminotransfera se measurement (enzymatic activity/volume) 20 U/L 5-34 Serum or plasma alanine aminotransferase measurement (enzymatic activity/volume) 16 U/L 0-55 Serum or plasma protein [...] - 12/01/16 09:50 PTH, INTACT 109 PG/ML 1565 PTH, Intact - 12/01/16 09:50 PTH, Intact 109 pg/mL 15-65 Complete blood count (CBC) with automate d white blood cell (WBC) differential - 01/02/17 14:46 Blood leukocytes automated count (number/volume) 5.9 10*3/uL 4.3-11.0 Blood erythrocytes automated count (number/volume) 3.98 10*6/uL 4.35-5.85 Venous blood hemoglobin measurement (mass/volume) 12.6 g/dL 11.5-16.0 Blood hematocrit (volume fraction) 39 % 35-52 Automated erythrocyte mean corpuscular volume 98 [ foz_us] 80-99 Automated erythrocyte mean corpuscular h emoglobin (mass per erythrocyte) 32 pg 25-34 Automated erythrocyte mean corpuscular h emoglobin concentration measurement (mass/volume) 33 g/dL 32-36 Automated erythrocyte distribution width ratio 13. 2 % 10.0- 14.5 Automated blood platelet count (count/volume) 142 10*3/uL [...] 10*3 1.0-4.0 Blood monocytes automated count (number/volume) 0. 5 10*3 0.0-1.0 Automated eosinophil count 0.2 10*3/uL 0 .0-0.3 Automated blood basophil count (count/volume) 0.0 10*3/uL 0.0-0.1 PT panel in platelet poor plasma by coag ulation assay - 01/02/17 14:46 Prothrombin time (PT) in platelet poor plasma by coagu lation assay 12.2 s 12.2-14.7 INR in platelet poor plasma or blood by coagulation as say 0.9 0.8-1.4 Activated partial thromboplastin time (a PTT) in platelet poor plasma bycoagulation assay - 01/02/17 14:46 Activated partial thromboplastin time (a PTT) in platelet poor plasma bycoagulation assay 25 s 24-35 Comprehensive metabolic panel - 01/02/17 14:46 Serum or plasma sodium measurement (moles/volume) 143 mmol/L 135-145 Serum or plasma potassium measurement (moles/volume) 3.4 mmol/L 3.6-5.0 Serum or plasma chloride measurement (moles/volume) 111 mmol/L 98-107 Carbon dioxide 22 mmol/L 21-32 Serum or plasma anion gap determination (moles/volume) 10 mmol/L 5-14 Serum or plasma urea nitrogen measurement (mass/volume ) 15 mg/dL 7-18 Serum or plasma creatinine measurement (mass/volume) 1.33 mg/dL 0.60-1.30 Serum or plasma urea nitrogen/creatinine mass ratio 11 NRG Serum or plasma creatinine measurement w ith calculation of estimated glomerular filtration rate 39 NRG Serum or plasma glucose measurement (mass/volume) 121 mg/dL 70-105 Serum or plasma calcium measurement (mass/volume) 9.3 mg/dL 8.5-10.1 Serum or plasma total bilirubin measurement (mass/volu me) 0.7 mg/dL 0.1-1.0 Serum or plasma alkaline phosphatase buddy surement (enzymatic activity/volume) 106 U/L 40-136 Serum or plasma aspartate aminotransfera se measurement (enzymatic activity/volume) 23 U/L 5-34 Serum or plasma alanine aminotransferase measurement (enzymatic activity/volume) 20 U/L 0-55 Serum or plasma protein measurement (mass/volume) 6.4 g/dL 6.4-8.2 Serum or plasma albumin measurement (mass/volume) 3.8 g/dL 3.2-4.5 Serum or plasma troponin i.cardiac measu rement (mass/volume) - 01/02/17 14:46 Serum or plasma troponin i.cardiac measurement (mass/v olume) < ng/mL <0.30 Fibrin D-dimer FEU measurement in platel et poor plasma (mass/volume) - 01/02/17 14:46 Fibrin D-dimer FEU measurement in platelet poor plasma (mass/volume) 0.40 ug/mL 0.00-0.49 Capillary blood glucose measurement by g lucometer (mass/volume) - 01/02/17 14:47 Capillary blood glucose measurement by glucometer (mas s/volume) 107 mg/dL 70-110 Complete urinalysis with reflex to cultu re - 01/02/17 15:38 Urine color determination YELLOW NRG Urine clarity determination CLEAR NR G Urine pH measurement by test strip 6 5-9 Specific gravity of urine by test strip 1.020 1.016-1.022 Urine protein assay by test strip, semi-quantitative 2+ NEGATIVE Urine glucose detection by automated test strip NE GATIVE NEGATIVE Erythrocytes detection in urine sediment by light micr oscopy NEGATIVE NEGATIVE Urine ketones detection by automated test strip NE GATIVE NEGATIVE Urine nitrite detection by test strip NEGATIVE NEGATIVE Urine total bilirubin detection by test strip NEGA TIVE NEGATIVE Urine urobilinogen measurement by automated test strip (mass/volume) 1 mg/dL NORMAL Urine leukocyte esterase detection by dipstick 1+ NEGATIVE Automated urine sediment erythrocyte cou nt by microscopy (number/high power field) NONE NRG Automated urine sediment leukocyte count by microscopy (number/high power field) [HPF] NRG Bacteria detection in urine sediment by light microsco py TRACE NRG Crystals detection in urine sediment by light microsco py NONE NRG Casts detection in urine sediment by light microscopy NONE NRG Mucus detection in urine sediment by light microscopy NONE NRG Complete urinalysis with reflex to culture NO NRG Complete blood count (CBC) with automate d white blood cell (WBC) differential - 01/03/17 04:30 Blood leukocytes automated count (number/volume) 6.1 10*3/uL 4.3-11.0 Blood erythrocytes automated count (number/volume) 3.82 10*6/uL 4.35-5.85 Venous blood hemoglobin measurement (mass/volume) 11.9 g/dL 11.5-16.0 Blood hematocrit (volume fraction) 37 % 35-52 Automated erythrocyte mean corpuscular volume 98 [ foz_us] 80-99 Automated erythrocyte mean corpuscular h emoglobin (mass per erythrocyte) 31 pg 25-34 Automated erythrocyte mean corpuscular h emoglobin concentration measurement (mass/volume) 32 g/dL 32-36 Automated erythrocyte distribution width ratio 13. 1 % 10.0- 14.5 Automated blood platelet count (count/volume) 137 10*3/uL [...] 10*3 1.0-4.0 Blood monocytes automated count (number/volume) 0. 5 10*3 0.0-1.0 Automated eosinophil count 0.2 10*3/uL 0 .0-0.3 Automated blood basophil count (count/volume) 0.0 10*3/uL 0.0-0.1 Comprehensive metabolic panel - 01/03/17 04:30 Serum or plasma sodium measurement (moles/volume) 142 mmol/L 135-145 Serum or plasma potassium measurement (moles/volume) 3.4 mmol/L 3.6-5.0 Serum or plasma chloride measurement (moles/volume) 111 mmol/L 98-107 Carbon dioxide 21 mmol/L 21-32 Serum or plasma anion gap determination (moles/volume) 10 mmol/L 5-14 Serum or plasma urea nitrogen measurement (mass/volume ) 12 mg/dL 7-18 Serum or plasma creatinine measurement (mass/volume) 1.15 mg/dL 0.60-1.30 Serum or plasma urea nitrogen/creatinine mass ratio 10 NRG Serum or plasma creatinine measurement w ith calculation of estimated glomerular filtration rate 47 NRG Serum or plasma glucose measurement (mass/volume) 91 mg/dL 70-105 Serum or plasma calcium measurement (mass/volume) 8.7 mg/dL 8.5-10.1 Serum or plasma total bilirubin measurement (mass/volu me) 0.6 mg/dL 0.1-1.0 Serum or plasma alkaline phosphatase buddy surement (enzymatic activity/volume) 98 U/L 40-136 Serum or plasma aspartate aminotransfera se measurement (enzymatic activity/volume) 19 U/L 5-34 Serum or plasma alanine aminotransferase measurement (enzymatic activity/volume) 17 U/L 0-55 Serum or plasma protein measurement (mass/volume) 5.4 g/dL 6.4-8.2 Serum or plasma albumin measurement (mass/volume) 3.2 g/dL 3.2-4.5 Serum or plasma phosphate measurement (m ass/volume) - 01/03/17 04:30 Serum or plasma phosphate measurement (mass/volume) 3.5 mg/dL 2.3-4.7 Magnesium - 01/03/17 04:30 Magnesium 1.6 mg/dL 1.8-2.4 Lipid 1996 panel - 01/03/17 04:30 Serum or plasma triglyceride measurement (mass/volume) 79 mg/dL <150 Serum or plasma cholesterol measurement (mass/volume) 134 mg/dL < 200 Serum or plasma cholesterol in HDL measurement (mass/v olume) 57 mg/dL 40-60 Cholesterol in LDL [mass/volume] in serum or plasma by direct assay 59 mg/dL 1-129 Serum or plasma cholesterol in VLDL measurement (mass/ volume) 16 mg/dL 5-40 Complete blood count (CBC) with automate d white blood cell (WBC) differential - 01/04/17 05:20 Blood leukocytes automated count (number/volume) 5.7 10*3/uL 4.3-11.0 Blood erythrocytes automated count (number/volume) 3.94 10*6/uL 4.35-5.85 Venous blood hemoglobin measurement (mass/volume) 12.4 g/dL 11.5-16.0 Blood hematocrit (volume fraction) 38 % 35-52 Automated erythrocyte mean corpuscular volume 97 [ foz_us] 80-99 Automated erythrocyte mean corpuscular h emoglobin (mass per erythrocyte) 32 pg 25-34 Automated erythrocyte mean corpuscular h emoglobin concentration measurement (mass/volume) 32 g/dL 32-36 Automated erythrocyte distribution width ratio 13. 1 % 10.0- 14.5 Automated blood platelet count (count/volume) 139 10*3/uL [...] 10*3 1.0-4.0 Blood monocytes automated count (number/volume) 0. 7 10*3 0.0-1.0 Automated eosinophil count 0.2 10*3/uL 0 .0-0.3 Automated blood basophil count (count/volume) 0.0 10*3/uL 0.0-0.1 Whole blood basic metabolic panel - 12/19 10/04 05:20 Serum or plasma sodium measurement (moles/volume) 141 mmol/L 135-145 Serum or plasma potassium measurement (moles/volume) 3.6 mmol/L 3.6-5.0 Serum or plasma chloride measurement (moles/volume) 110 mmol/L 98-107 Carbon dioxide 22 mmol/L 21-32 Serum or plasma anion gap determination (moles/volume) 9 mmol/L 5-14 Serum or plasma urea nitrogen measurement (mass/volume ) 10 mg/dL 7-18 Serum or plasma creatinine measurement (mass/volume) 0.94 mg/dL 0.60-1.30 Serum or plasma urea nitrogen/creatinine mass ratio 11 NRG Serum or plasma creatinine measurement w ith calculation of estimated glomerular filtration rate 59 NRG Serum or plasma glucose measurement (mass/volume) 91 mg/dL 70-105 Serum or plasma calcium measurement (mass/volume) 9.0 mg/dL 8.5-10.1 Serum or plasma phosphate measurement (m ass/volume) - 01/04/17 05:20 Serum or plasma phosphate measurement (mass/volume) 3.0 mg/dL 2.3-4.7 Magnesium - 01/04/17 05:20 Magnesium 1.8 mg/dL 1.8-2.4 Capillary blood glucose measurement by g lucometer (mass/volume) - 01/04/17 12:32 Capillary blood glucose measurement by glucometer (mas s/volume) 106 mg/dL 70-110 Lipid Panel - 03/07/17 14:12 C/HDL 2.6 3.7-6.7 Cholesterol 172 mg/dL 100-240 HDL 65 mg/dL 30-85 LDL-Calculated 89 mg/dL 0-100 Trig 89 mg/dL 35-160 VLDL 18 mg/dL 0-42 Complete blood count (CBC) with automate d white blood cell (WBC) differential - 01/24/18 06:30 Blood leukocytes automated count (number/volume) 8.4 10*3/uL 4.3-11.0 Blood erythrocytes automated count (number/volume) 4.36 10*6/uL 4.35-5.85 Venous blood hemoglobin measurement (mass/volume) 11.7 g/dL 11.5-16.0 Blood hematocrit (volume fraction) 39 % 35-52 Automated erythrocyte mean corpuscular volume 90 [ foz_us] 80-99 Automated erythrocyte mean corpuscular h emoglobin (mass per erythrocyte) 27 pg 25-34 Automated erythrocyte mean corpuscular h emoglobin concentration measurement (mass/volume) 30 g/dL 32-36 Automated erythrocyte distribution width ratio 14. 4 % 10.0- 14.5 Automated blood platelet count (count/volume) 150 10*3/uL [...] 10*3 1.0-4.0 Blood monocytes automated count (number/volume) 0. 8 10*3 0.0-1.0 Automated eosinophil count 0.1 10*3/uL 0 .0-0.3 Automated blood basophil count (count/volume) 0.0 10*3/uL 0.0-0.1 PT panel in platelet poor plasma by coag ulation assay - 01/24/18 06:30 Prothrombin time (PT) in platelet poor plasma by coagu lation assay 13.0 s 12.2-14.7 INR in platelet poor plasma or blood by coagulation as say 1.0 0.8-1.4 Activated partial thromboplastin time (a PTT) in platelet poor plasma bycoagulation assay - 01/24/18 06:30 Activated partial thromboplastin time (a PTT) in platelet poor plasma bycoagulation assay 25 s 24-35 Comprehensive metabolic panel - 01/24/18 06:30 Serum or plasma sodium measurement (moles/volume) 141 mmol/L 135-145 Serum or plasma potassium measurement (moles/volume) 5.3 mmol/L 3.6-5.0 Serum or plasma chloride measurement (moles/volume) 110 mmol/L 98-107 Carbon dioxide 19 mmol/L 21-32 Serum or plasma anion gap determination (moles/volume) 12 mmol/L 5-14 Serum or plasma urea nitrogen measurement (mass/volume ) 26 mg/dL 7-18 Serum or plasma creatinine measurement (mass/volume) 1.60 mg/dL 0.60-1.30 Serum or plasma urea nitrogen/creatinine mass ratio 16 NRG Serum or plasma creatinine measurement w ith calculation of estimated glomerular filtration rate 32 NRG Serum or plasma glucose measurement (mass/volume) 130 mg/dL 70-105 Serum or plasma calcium measurement (mass/volume) 10.0 mg/dL 8.5-10.1 Serum or plasma total bilirubin measurement (mass/volu me) 0.6 mg/dL 0.1-1.0 Serum or plasma alkaline phosphatase buddy surement (enzymatic activity/volume) 140 U/L 40-136 Serum or plasma aspartate aminotransfera se measurement (enzymatic activity/volume) 20 U/L 5-34 Serum or plasma alanine aminotransferase measurement (enzymatic activity/volume) 14 U/L 0-55 Serum or plasma protein measurement (mass/volume) 6.8 g/dL 6.4-8.2 Serum or plasma albumin measurement (mass/volume) 4.2 g/dL 3.2-4.5 CALCIUM CORRECTED 9.8 mg/dL 8.5-10.1 Magnesium - 01/24/18 06:30 Magnesium 2.1 mg/dL 1.8-2.4 Serum or plasma C reactive protein measu rement (mass/volume) - 01/24/18 06:30 Serum or plasma C reactive protein measurement (mass/v olume) 0.08 mg/dL 0.00-0.50 Complete urinalysis with reflex to cultu re - 01/24/18 07:13 Urine color determination YELLOW NRG Urine clarity determination CLEAR NR G Urine pH measurement by test strip 6 5-9 Specific gravity of urine by test strip 1.010 1.016-1.022 Urine protein assay by test strip, semi-quantitative 2+ NEGATIVE Urine glucose detection by automated test strip NE GATIVE NEGATIVE Erythrocytes detection in urine sediment by light micr oscopy NEGATIVE NEGATIVE Urine ketones detection by automated test strip NE GATIVE NEGATIVE Urine nitrite detection by test strip NEGATIVE NEGATIVE Urine total bilirubin detection by test strip NEGA TIVE NEGATIVE Urine urobilinogen measurement by automated test strip (mass/volume) NORMAL NORMAL Urine leukocyte esterase detection by dipstick 1+ NEGATIVE Automated urine sediment erythrocyte cou nt by microscopy (number/high power field) NONE NRG Automated urine sediment leukocyte count by microscopy (number/high power field) [HPF] NRG Bacteria detection in urine sediment by light microsco py NEGATIVE NRG Squamous epithelial cells detection in u rine sediment by light microscopy NONE NRG Crystals detection in urine sediment by light microsco py NONE NRG Casts detection in urine sediment by light microscopy NONE NRG Mucus detection in urine sediment by light microscopy NEGATIVE NRG Complete urinalysis with reflex to culture NO NRG C DIFFICILE AG + TOXIN A/B. - 01/27/18 1 6:00 C DIFFICILE AG + TOXIN A/B. TNP NR G Stool occult blood screen - 01/27/18 16: 00 Stool gastrointestinal hemoglobin detection POSITI VE NEGATIVE Stool bacteria identification by culture - 01/27/18 16:00 Stool bacteria identification by culture N2 NRG PARASITE COMPLETE EXAM STOOL - 01/27/18 16:00 OTP NEGATIVE RESULT PARASITES NOT FOUND NRG Complete blood count (CBC) with automate d white blood cell (WBC) differential - 04/29/18 10:40 Blood leukocytes automated count (number/volume) 8.9 10*3/uL 4.3-11.0 Blood erythrocytes automated count (number/volume) 4.80 10*6/uL 4.35-5.85 Venous blood hemoglobin measurement (mass/volume) 12.4 g/dL 11.5-16.0 Blood hematocrit (volume fraction) 41 % 35-52 Automated erythrocyte mean corpuscular volume 85 [ foz_us] 80-99 Automated erythrocyte mean corpuscular h emoglobin (mass per erythrocyte) 26 pg 25-34 Automated erythrocyte mean corpuscular h emoglobin concentration measurement (mass/volume) 30 g/dL 32-36 Automated erythrocyte distribution width ratio 15. 2 % 10.0- 14.5 Automated blood platelet count (count/volume) 198 10*3/uL [...] 10*3 1.0-4.0 Blood monocytes automated count (number/volume) 0. 5 10*3 0.0-1.0 Automated eosinophil count 0.0 10*3/uL 0 .0-0.3 Automated blood basophil count (count/volume) 0.0 10*3/uL 0.0-0.1 Comprehensive metabolic panel - 04/29/18 10:40 Serum or plasma sodium measurement (moles/volume) 141 mmol/L 135-145 Serum or plasma potassium measurement (moles/volume) 5.1 mmol/L 3.6-5.0 Serum or plasma chloride measurement (moles/volume) 109 mmol/L 98-107 Carbon dioxide 19 mmol/L 21-32 Serum or plasma anion gap determination (moles/volume) 13 mmol/L 5-14 Serum or plasma urea nitrogen measurement (mass/volume ) 18 mg/dL 7-18 Serum or plasma creatinine measurement (mass/volume) 1.62 mg/dL 0.60-1.30 Serum or plasma urea nitrogen/creatinine mass ratio 11 NRG Serum or plasma creatinine measurement w ith calculation of estimated glomerular filtration rate 31 NRG Serum or plasma glucose measurement (mass/volume) 140 mg/dL 70-105 Serum or plasma calcium measurement (mass/volume) 10.3 mg/dL 8.5-10.1 Serum or plasma total bilirubin measurement (mass/volu me) 0.8 mg/dL 0.1-1.0 Serum or plasma alkaline phosphatase buddy surement (enzymatic activity/volume) 172 U/L 40-136 Serum or plasma aspartate aminotransfera se measurement (enzymatic activity/volume) 29 U/L 5-34 Serum or plasma alanine aminotransferase measurement (enzymatic activity/volume) 18 U/L 0-55 Serum or plasma protein measurement (mass/volume) 7.4 g/dL 6.4-8.2 Serum or plasma albumin measurement (mass/volume) 4.4 g/dL 3.2-4.5 CALCIUM CORRECTED 10.0 mg/dL 8.5-10.1 Serum or plasma troponin i.cardiac measu rement (mass/volume) - 04/29/18 10:40 Serum or plasma troponin i.cardiac measurement (mass/v olume) 0.031 ng/mL <0.028 PT panel in platelet poor plasma by coag ulation assay - 04/29/18 10:40 Prothrombin time (PT) in platelet poor plasma by coagu lation assay 15.4 s 12.2-14.7 INR in platelet poor plasma or blood by coagulation as say 1.2 0.8-1.4 Activated partial thromboplastin time (a PTT) in platelet poor plasma bycoagulation assay - 04/29/18 10:40 Activated partial thromboplastin time (a PTT) in platelet poor plasma bycoagulation assay 26 s 24-35 Fibrin D-dimer FEU measurement in platel et poor plasma (mass/volume) - 04/29/18 10:40 Fibrin D-dimer FEU measurement in platelet poor plasma (mass/volume) 0.78 ug/mL 0.00-0.49 Capillary blood glucose measurement by g lucometer (mass/volume) - 04/29/18 11:53 Capillary blood glucose measurement by glucometer (mas s/volume) 111 mg/dL 70-110 Complete urinalysis with reflex to cultu re - 04/29/18 12:13 Urine color determination YELLOW NRG Urine clarity determination CLEAR NR G Urine pH measurement by test strip 8 5-9 Specific gravity of urine by test strip 1.010 1.016-1.022 Urine protein assay by test strip, semi-quantitative 2+ NEGATIVE Urine glucose detection by automated test strip NE GATIVE NEGATIVE Erythrocytes detection in urine sediment by light micr oscopy NEGATIVE NEGATIVE Urine ketones detection by automated test strip NE GATIVE NEGATIVE Urine nitrite detection by test strip NEGATIVE NEGATIVE Urine total bilirubin detection by test strip NEGA TIVE NEGATIVE Urine urobilinogen measurement by automated test strip (mass/volume) NORMAL NORMAL Urine leukocyte esterase detection by dipstick NEG ATIVE NEGATIVE Automated urine sediment erythrocyte cou nt by microscopy (number/high power field) RARE NRG Automated urine sediment leukocyte count by microscopy (number/high power field) NONE NRG Bacteria detection in urine sediment by light microsco py NEGATIVE NRG Squamous epithelial cells detection in u rine sediment by light microscopy RARE NRG Crystals detection in urine sediment by light microsco py NONE NRG Casts detection in urine sediment by light microscopy NONE NRG Mucus detection in urine sediment by light microscopy NEGATIVE NRG Complete urinalysis with reflex to culture NO NRG Automated blood complete blood count (he mogram) panel - 04/30/18 05:21 Blood leukocytes automated count (number/volume) 6.2 10*3/uL 4.3-11.0 Blood erythrocytes automated count (number/volume) 4.31 10*6/uL 4.35-5.85 Venous blood hemoglobin measurement (mass/volume) 11.0 g/dL 11.5-16.0 Blood hematocrit (volume fraction) 37 % 35-52 Automated erythrocyte mean corpuscular volume 86 [ foz_us] 80-99 Automated erythrocyte mean corpuscular h emoglobin (mass per erythrocyte) 26 pg 25-34 Automated erythrocyte mean corpuscular h emoglobin concentration measurement (mass/volume) 30 g/dL 32-36 Automated erythrocyte distribution width ratio 15. 0 % 10.0- 14.5 Automated blood platelet count (count/volume) 157 10*3/uL [...] 5-14 Serum or plasma urea nitrogen measurement (mass/volume ) 24 mg/dL 7-18 Serum or plasma creatinine measurement (mass/volume) 1.77 mg/dL 0.60-1.30 Serum or plasma urea nitrogen/creatinine mass ratio 14 NRG Serum or plasma creatinine measurement w ith calculation of estimated glomerular filtration rate 28 NRG Serum or plasma glucose measurement (mass/volume) 98 mg/dL 70-105 Serum or plasma calcium measurement (mass/volume) 9.8 mg/dL 8.5-10.1 Serum or plasma total bilirubin measurement (mass/volu me) 0.7 mg/dL 0.1-1.0 Serum or plasma alkaline phosphatase buddy surement (enzymatic activity/volume) 148 U/L 40-136 Serum or plasma aspartate aminotransfera se measurement (enzymatic activity/volume) 24 U/L 5-34 Serum or plasma alanine aminotransferase measurement (enzymatic activity/volume) 16 U/L 0-55 Serum or plasma protein measurement (mass/volume) 6.4 g/dL 6.4-8.2 Serum or plasma albumin measurement (mass/volume) 3.8 g/dL 3.2-4.5 CALCIUM CORRECTED 10.0 mg/dL 8.5-10.1 Lipid 1996 panel - 04/30/18 05:21 Serum or plasma triglyceride measurement (mass/volume) 128 mg/dL <150 Serum or plasma cholesterol measurement (mass/volume) 159 mg/dL < 200 Serum or plasma cholesterol in HDL measurement (mass/v olume) 49 mg/dL 40-60 Cholesterol in LDL [mass/volume] in serum or plasma by direct assay 84 mg/dL 1-129 Serum or plasma cholesterol in VLDL measurement (mass/ volume) 26 mg/dL 5-40 Serum or plasma lithium measurement (mol es/volume) - 04/30/18 05:21 BNP level 45.8 pg/mL <100.0 Complete blood count (CBC) with automate d white blood cell (WBC) differential - 05/02/18 05:32 Blood leukocytes automated count (number/volume) 6.3 10*3/uL 4.3-11.0 Blood erythrocytes automated count (number/volume) 4.32 10*6/uL 4.35-5.85 Venous blood hemoglobin measurement (mass/volume) 10.9 g/dL 11.5-16.0 Blood hematocrit (volume fraction) 37 % 35-52 Automated erythrocyte mean corpuscular volume 86 [ foz_us] 80-99 Automated erythrocyte mean corpuscular h emoglobin (mass per erythrocyte) 25 pg 25-34 Automated erythrocyte mean corpuscular h emoglobin concentration measurement (mass/volume) 29 g/dL 32-36 Automated erythrocyte distribution width ratio 14. 9 % 10.0- 14.5 Automated blood platelet count (count/volume) 154 10*3/uL [...] 10*3 1.0-4.0 Blood monocytes automated count (number/volume) 0. 7 10*3 0.0-1.0 Automated eosinophil count 0.2 10*3/uL 0 .0-0.3 Automated blood basophil count (count/volume) 0.0 10*3/uL 0.0-0.1 Comprehensive metabolic panel - 05/02/18 05:32 Serum or plasma sodium measurement (moles/volume) 140 mmol/L 135-145 Serum or plasma potassium measurement (moles/volume) 4.9 mmol/L 3.6-5.0 Serum or plasma chloride measurement (moles/volume) 109 mmol/L 98-107 Carbon dioxide 21 mmol/L 21-32 Serum or plasma anion gap determination (moles/volume) 10 mmol/L 5-14 Serum or plasma urea nitrogen measurement (mass/volume ) 28 mg/dL 7-18 Serum or plasma creatinine measurement (mass/volume) 1.88 mg/dL 0.60-1.30 Serum or plasma urea nitrogen/creatinine mass ratio 15 NRG Serum or plasma creatinine measurement w ith calculation of estimated glomerular filtration rate 26 NRG Serum or plasma glucose measurement (mass/volume) 85 mg/dL 70-105 Serum or plasma calcium measurement (mass/volume) 9.8 mg/dL 8.5-10.1 Serum or plasma total bilirubin measurement (mass/volu me) 0.4 mg/dL 0.1-1.0 Serum or plasma alkaline phosphatase buddy surement (enzymatic activity/volume) 133 U/L 40-136 Serum or plasma aspartate aminotransfera se measurement (enzymatic activity/volume) 23 U/L 5-34 Serum or plasma alanine aminotransferase measurement (enzymatic activity/volume) 14 U/L 0-55 Serum or plasma protein measurement (mass/volume) 6.2 g/dL 6.4-8.2 Serum or plasma albumin measurement (mass/volume) 3.7 g/dL 3.2-4.5 CALCIUM CORRECTED 10.0 mg/dL 8.5-10.1 Complete blood count (CBC) with automate d white blood cell (WBC) differential - 05/04/18 08:55 Blood leukocytes automated count (number/volume) 11.6 10*3/uL 4.3-11.0 Blood erythrocytes automated count (number/volume) 4.22 10*6/uL 4.35-5.85 Venous blood hemoglobin measurement (mass/volume) 10.9 g/dL 11.5-16.0 Blood hematocrit (volume fraction) 36 % 35-52 Automated erythrocyte mean corpuscular volume 86 [ foz_us] 80-99 Automated erythrocyte mean corpuscular h emoglobin (mass per erythrocyte) 26 pg 25-34 Automated erythrocyte mean corpuscular h emoglobin concentration measurement (mass/volume) 30 g/dL 32-36 Automated erythrocyte distribution width ratio 14. 8 % 10.0- 14.5 Automated blood platelet count (count/volume) 168 10*3/uL [...] 10*3 1.0-4.0 Blood monocytes automated count (number/volume) 0. 9 10*3 0.0-1.0 Automated eosinophil count 0.2 10*3/uL 0 .0-0.3 Automated blood basophil count (count/volume) 0.0 10*3/uL 0.0-0.1 Comprehensive metabolic panel - 05/04/18 08:55 Serum or plasma sodium measurement (moles/volume) 138 mmol/L 135-145 Serum or plasma potassium measurement (moles/volume) 4.5 mmol/L 3.6-5.0 Serum or plasma chloride measurement (moles/volume) 108 mmol/L 98-107 Carbon dioxide 23 mmol/L 21-32 Serum or plasma anion gap determination (moles/volume) 7 mmol/L 5-14 Serum or plasma urea nitrogen measurement (mass/volume ) 29 mg/dL 7-18 Serum or plasma creatinine measurement (mass/volume) 1.44 mg/dL 0.60-1.30 Serum or plasma urea nitrogen/creatinine mass ratio 20 NRG Serum or plasma creatinine measurement w ith calculation of estimated glomerular filtration rate 36 NRG Serum or plasma glucose measurement (mass/volume) 152 mg/dL 70-105 Serum or plasma calcium measurement (mass/volume) 10.3 mg/dL 8.5-10.1 Serum or plasma total bilirubin measurement (mass/volu me) 0.4 mg/dL 0.1-1.0 Serum or plasma alkaline phosphatase buddy surement (enzymatic activity/volume) 141 U/L 40-136 Serum or plasma aspartate aminotransfera se measurement (enzymatic activity/volume) 23 U/L 5-34 Serum or plasma alanine aminotransferase measurement (enzymatic activity/volume) 16 U/L 0-55 Serum or plasma protein measurement (mass/volume) 6.7 g/dL 6.4-8.2 Serum or plasma albumin measurement (mass/volume) 3.9 g/dL 3.2-4.5 CALCIUM CORRECTED 10.4 mg/dL 8.5-10.1 Complete blood count (CBC) with automate d white blood cell (WBC) differential - 05/07/18 06:00 Blood leukocytes automated count (number/volume) 9.1 10*3/uL 4.3-11.0 Blood erythrocytes automated count (number/volume) 3.93 10*6/uL 4.35-5.85 Venous blood hemoglobin measurement (mass/volume) 10.2 g/dL 11.5-16.0 Blood hematocrit (volume fraction) 34 % 35-52 Automated erythrocyte mean corpuscular volume 87 [ foz_us] 80-99 Automated erythrocyte mean corpuscular h emoglobin (mass per erythrocyte) 26 pg 25-34 Automated erythrocyte mean corpuscular h emoglobin concentration measurement (mass/volume) 30 g/dL 32-36 Automated erythrocyte distribution width ratio 15. 1 % 10.0- 14.5 Automated blood platelet count (count/volume) 158 10*3/uL [...] 10*3 1.0-4.0 Blood monocytes automated count (number/volume) 1. 0 10*3 0.0-1.0 Automated eosinophil count 0.2 10*3/uL 0 .0-0.3 Automated blood basophil count (count/volume) 0.0 10*3/uL 0.0-0.1 Comprehensive metabolic panel - 05/07/18 06:00 Serum or plasma sodium measurement (moles/volume) 139 mmol/L 135-145 Serum or plasma potassium measurement (moles/volume) 4.9 mmol/L 3.6-5.0 Serum or plasma chloride measurement (moles/volume) 108 mmol/L 98-107 Carbon dioxide 22 mmol/L 21-32 Serum or plasma anion gap determination (moles/volume) 9 mmol/L 5-14 Serum or plasma urea nitrogen measurement (mass/volume ) 32 mg/dL 7-18 Serum or plasma creatinine measurement (mass/volume) 1.47 mg/dL 0.60-1.30 Serum or plasma urea nitrogen/creatinine mass ratio 22 NRG Serum or plasma creatinine measurement w ith calculation of estimated glomerular filtration rate 35 NRG Serum or plasma glucose measurement (mass/volume) 93 mg/dL 70-105 Serum or plasma calcium measurement (mass/volume) 10.0 mg/dL 8.5-10.1 Serum or plasma total bilirubin measurement (mass/volu me) 0.3 mg/dL 0.1-1.0 Serum or plasma alkaline phosphatase buddy surement (enzymatic activity/volume) 126 U/L 40-136 Serum or plasma aspartate aminotransfera se measurement (enzymatic activity/volume) 27 U/L 5-34 Serum or plasma alanine aminotransferase measurement (enzymatic activity/volume) 16 U/L 0-55 Serum or plasma protein measurement (mass/volume) 6.1 g/dL 6.4-8.2 Serum or plasma albumin measurement (mass/volume) 3.5 g/dL 3.2-4.5 CALCIUM CORRECTED 10.4 mg/dL 8.5-10.1 Bacterial urine culture - 05/07/18 20:15 Bacterial urine culture [id number] NRG COLONY COUNT >100,000/ML NRG FTX;REPORTABLE SENSITIVITY REPORTED 05/09/18 12:05 NRG FREE TEXT ENTRY 2 ID REPORTED 05/08/18 15:05 NRG RML Sensitivity Panel - 05/07/18 20:15 Gentamicin susceptibility test by minimum inhibitory c oncentration <= NRG Trimethoprim/sulfamethoxazole susceptibi lity test by minimum inhibitoryconcentration <= NRG Levofloxacin susceptibility test by minimum inhibitory concentration > NRG Ampicillin susceptibility test by minimum inhibitory c oncentration > NRG Cefazolin susceptibility test by minimum inhibitory co ncentration 8 NRG Ceftriaxone susceptibility test by minimum inhibitory concentration <= NRG Ciprofloxacin susceptibility test by minimum inhibitor y concentration > NRG Meropenem susceptibility test by minimum inhibitory co ncentration <= NRG Nitrofurantoin susceptibility test by mi nimum inhibitory concentration <= NRG Amoxicillin and clavulanate potassium susc STEVE = NRG Capillary blood glucose measurement by g lucometer (mass/volume) - 05/07/18 20:56 Capillary blood glucose measurement by glucometer (mas s/volume) 108 mg/dL 70-110 Capillary blood glucose measurement by g lucometer (mass/volume) - 05/09/18 11:40 Capillary blood glucose measurement by glucometer (mas s/volume) 126 mg/dL 70-110 Complete blood count (CBC) with automate d white blood cell (WBC) differential - 05/15/18 04:20 Blood leukocytes automated count (number/volume) 6.0 10*3/uL 4.3-11.0 Blood erythrocytes automated count (number/volume) 4.14 10*6/uL 4.35-5.85 Venous blood hemoglobin measurement (mass/volume) 10.6 g/dL 11.5-16.0 Blood hematocrit (volume fraction) 36 % 35-52 Automated erythrocyte mean corpuscular volume 86 [ foz_us] 80-99 Automated erythrocyte mean corpuscular h emoglobin (mass per erythrocyte) 26 pg 25-34 Automated erythrocyte mean corpuscular h emoglobin concentration measurement (mass/volume) 30 g/dL 32-36 Automated erythrocyte distribution width ratio 15. 1 % 10.0- 14.5 Automated blood platelet count (count/volume) 183 10*3/uL [...] 10*3 1.0-4.0 Blood monocytes automated count (number/volume) 0. 5 10*3 0.0-1.0 Automated eosinophil count 0.1 10*3/uL 0 .0-0.3 Automated blood basophil count (count/volume) 0.0 10*3/uL 0.0-0.1 Comprehensive metabolic panel - 05/15/18 04:20 Serum or plasma sodium measurement (moles/volume) 142 mmol/L 135-145 Serum or plasma potassium measurement (moles/volume) 4.6 mmol/L 3.6-5.0 Serum or plasma chloride measurement (moles/volume) 110 mmol/L 98-107 Carbon dioxide 23 mmol/L 21-32 Serum or plasma anion gap determination (moles/volume) 9 mmol/L 5-14 Serum or plasma urea nitrogen measurement (mass/volume ) 32 mg/dL 7-18 Serum or plasma creatinine measurement (mass/volume) 1.61 mg/dL 0.60-1.30 Serum or plasma urea nitrogen/creatinine mass ratio 20 NRG Serum or plasma creatinine measurement w ith calculation of estimated glomerular filtration rate 31 NRG Serum or plasma glucose measurement (mass/volume) 97 mg/dL 70-105 Serum or plasma calcium measurement (mass/volume) 10.1 mg/dL 8.5-10.1 Serum or plasma total bilirubin measurement (mass/volu me) 0.4 mg/dL 0.1-1.0 Serum or plasma alkaline phosphatase buddy surement (enzymatic activity/volume) 127 U/L 40-136 Serum or plasma aspartate aminotransfera se measurement (enzymatic activity/volume) 19 U/L 5-34 Serum or plasma alanine aminotransferase measurement (enzymatic activity/volume) 15 U/L 0-55 Serum or plasma protein measurement (mass/volume) 6.1 g/dL 6.4-8.2 Serum or plasma albumin measurement (mass/volume) 3.5 g/dL 3.2-4.5 CALCIUM CORRECTED 10.5 mg/dL 8.5-10.1 Automated blood complete blood count ( mogram) panel - 05/17/18 17:46 Blood leukocytes automated count (number/volume) 7.0 10*3/uL 4.3-11.0 Blood erythrocytes automated count (number/volume) 3.88 10*6/uL 4.35-5.85 Venous blood hemoglobin measurement (mass/volume) 10.0 g/dL 11.5-16.0 Blood hematocrit (volume fraction) 34 % 35-52 Automated erythrocyte mean corpuscular volume 87 [ foz_us] 80-99 Automated erythrocyte mean corpuscular h emoglobin (mass per erythrocyte) 26 pg 25-34 Automated erythrocyte mean corpuscular h emoglobin concentration measurement (mass/volume) 30 g/dL 32-36 Automated erythrocyte distribution width ratio 15. 5 % 10.0- 14.5 Automated blood platelet count (count/volume) 173 10*3/uL 130-400 Automated blood platelet mean volume measurement 10.5 [foz_us] 7.4-10.4 Complete urinalysis with reflex to cultu re - 05/18/18 07:05 Urine color determination YELLOW NRG Urine clarity determination CLEAR NR G Urine pH measurement by test strip 6.5 5-9 Specific gravity of urine by test strip 1.010 1.016-1.022 Urine protein assay by test strip, semi-quantitative NEGATIVE NEGATIVE Urine glucose detection by automated test strip NE GATIVE NEGATIVE Erythrocytes detection in urine sediment by light micr oscopy NEGATIVE NEGATIVE Urine ketones detection by automated test strip NE GATIVE NEGATIVE Urine nitrite detection by test strip NEGATIVE NEGATIVE Urine total bilirubin detection by test strip NEGA TIVE NEGATIVE Urine urobilinogen measurement by automated test strip (mass/volume) NORMAL NORMAL Urine leukocyte esterase detection by dipstick NEG ATIVE NEGATIVE Automated urine sediment erythrocyte cou nt by microscopy (number/high power field) NONE NRG Automated urine sediment leukocyte count by microscopy (number/high power field) RARE NRG Bacteria detection in urine sediment by light microsco py NEGATIVE NRG Crystals detection in urine sediment by light microsco py NONE NRG Casts detection in urine sediment by light microscopy NONE NRG Mucus detection in urine sediment by light microscopy NEGATIVE NRG Complete urinalysis with reflex to culture NO NRG Complete blood count (CBC) with automate d white blood cell (WBC) differential - 05/18/18 08:30 Blood leukocytes automated count (number/volume) 6.6 10*3/uL 4.3-11.0 Blood erythrocytes automated count (number/volume) 4.21 10*6/uL 4.35-5.85 Venous blood hemoglobin measurement (mass/volume) 10.7 g/dL 11.5-16.0 Blood hematocrit (volume fraction) 36 % 35-52 Automated erythrocyte mean corpuscular volume 85 [ foz_us] 80-99 Automated erythrocyte mean corpuscular h emoglobin (mass per erythrocyte) 25 pg 25-34 Automated erythrocyte mean corpuscular h emoglobin concentration measurement (mass/volume) 30 g/dL 32-36 Automated erythrocyte distribution width ratio 15. 4 % 10.0- 14.5 Automated blood platelet count (count/volume) 176 10*3/uL [...] 10*3 1.0-4.0 Blood monocytes automated count (number/volume) 0. 6 10*3 0.0-1.0 Automated eosinophil count 0.1 10*3/uL 0 .0-0.3 Automated blood basophil count (count/volume) 0.0 10*3/uL 0.0-0.1 Comprehensive metabolic panel - 05/18/18 08:30 Serum or plasma sodium measurement (moles/volume) 141 mmol/L 135-145 Serum or plasma potassium measurement (moles/volume) 4.5 mmol/L 3.6-5.0 Serum or plasma chloride measurement (moles/volume) 109 mmol/L 98-107 Carbon dioxide 22 mmol/L 21-32 Serum or plasma anion gap determination (moles/volume) 10 mmol/L 5-14 Serum or plasma urea nitrogen measurement (mass/volume ) 22 mg/dL 7-18 Serum or plasma creatinine measurement (mass/volume) 1.31 mg/dL 0.60-1.30 Serum or plasma urea nitrogen/creatinine mass ratio 17 NRG Serum or plasma creatinine measurement w ith calculation of estimated glomerular filtration rate 40 NRG Serum or plasma glucose measurement (mass/volume) 115 mg/dL 70-105 Serum or plasma calcium measurement (mass/volume) 10.4 mg/dL 8.5-10.1 Serum or plasma total bilirubin measurement (mass/volu me) 0.5 mg/dL 0.1-1.0 Serum or plasma alkaline phosphatase buddy surement (enzymatic activity/volume) 135 U/L 40-136 Serum or plasma aspartate aminotransfera se measurement (enzymatic activity/volume) 24 U/L 5-34 Serum or plasma alanine aminotransferase measurement (enzymatic activity/volume) 15 U/L 0-55 Serum or plasma protein measurement (mass/volume) 6.6 g/dL 6.4-8.2 Serum or plasma albumin measurement (mass/volume) 3.9 g/dL 3.2-4.5 CALCIUM CORRECTED 10.5 mg/dL 8.5-10.1 Capillary blood glucose measurement by g lucometer (mass/volume) - 06/14/18 09:23 Capillary blood glucose measurement by glucometer (mas s/volume) 83 mg/dL 70-110 Comprehensive metabolic panel - 06/14/18 09:30 Serum or plasma sodium measurement (moles/volume) 143 mmol/L 135-145 Serum or plasma potassium measurement (moles/volume) 5.0 mmol/L 3.6-5.0 Serum or plasma chloride measurement (moles/volume) 109 mmol/L 98-107 Carbon dioxide 23 mmol/L 21-32 Serum or plasma anion gap determination (moles/volume) 11 mmol/L 5-14 Serum or plasma urea nitrogen measurement (mass/volume ) 18 mg/dL 7-18 Serum or plasma creatinine measurement (mass/volume) 1.49 mg/dL 0.60-1.30 Serum or plasma urea nitrogen/creatinine mass ratio 12 NRG Serum or plasma creatinine measurement w ith calculation of estimated glomerular filtration rate 34 NRG Serum or plasma glucose measurement (mass/volume) 94 mg/dL 70-105 Serum or plasma calcium measurement (mass/volume) 10.5 mg/dL 8.5-10.1 Serum or plasma total bilirubin measurement (mass/volu me) 0.5 mg/dL 0.1-1.0 Serum or plasma alkaline phosphatase buddy surement (enzymatic activity/volume) 127 U/L 40-136 Serum or plasma aspartate aminotransfera se measurement (enzymatic activity/volume) 23 U/L 5-34 Serum or plasma alanine aminotransferase measurement (enzymatic activity/volume) 17 U/L 0-55 Serum or plasma protein measurement (mass/volume) 6.6 g/dL 6.4-8.2 Serum or plasma albumin measurement (mass/volume) 4.1 g/dL 3.2-4.5 CALCIUM CORRECTED 10.4 mg/dL 8.5-10.1 GLUCOSE TOLERANCE TEST 2HR - 06/14/18 09 :30 GLUCOSE TOLERANCE TEST 2HR NRG Hemoglobin A1c - 06/14/18 09:30 Blood hemoglobin A1C measurement (mass/volume) 6.1 % 4.0-5.6 MEAN BLOOD GLUCOSE 128 % <=126 Complete blood count (CBC) with automate d white blood cell (WBC) differential - 07/17/18 11:30 Blood leukocytes automated count (number/volume) 6.3 10*3/uL 4.3-11.0 Blood erythrocytes automated count (number/volume) 4.57 10*6/uL 4.35-5.85 Venous blood hemoglobin measurement (mass/volume) 11.3 g/dL 11.5-16.0 Blood hematocrit (volume fraction) 39 % 35-52 Automated erythrocyte mean corpuscular volume 84 [ foz_us] 80-99 Automated erythrocyte mean corpuscular h emoglobin (mass per erythrocyte) 25 pg 25-34 Automated erythrocyte mean corpuscular h emoglobin concentration measurement (mass/volume) 29 g/dL 32-36 Automated erythrocyte distribution width ratio 15. 6 % 10.0- 14.5 Automated blood platelet count (count/volume) 185 10*3/uL 130-400 Automated blood platelet mean volume measurement 10.8 [foz_us] 7.4-10.4 Automated blood neutrophils/100 leukocytes 62 % 42-75 Automated blood lymphocytes/100 leukocytes 27 % 12-44 Blood monocytes/100 leukocytes 9 % 0-12 Automated blood eosinophils/100 leukocytes 2 % 0-10 Automated blood basophils/100 leukocytes 1 % 0-10 Blood neutrophils automated count (number/volume) 3.9 10*3 1.8-7.8 Blood lymphocytes automated count (number/volume) 1.7 10*3 1.0-4.0 Blood monocytes automated count (number/volume) 0. 5 10*3 0.0-1.0 Automated eosinophil count 0.1 10*3/uL 0 .0-0.3 Automated blood basophil count (count/volume) 0.0 10*3/uL 0.0-0.1 Comprehensive metabolic panel - 07/17/18 11:30 Serum or plasma sodium measurement (moles/volume) 142 mmol/L 135-145 Serum or plasma potassium measurement (moles/volume) 4.7 mmol/L 3.6-5.0 Serum or plasma chloride measurement (moles/volume) 109 mmol/L 98-107 Carbon dioxide 23 mmol/L 21-32 Serum or plasma anion gap determination (moles/volume) 10 mmol/L 5-14 Serum or plasma urea nitrogen measurement (mass/volume ) 17 mg/dL 7-18 Serum or plasma creatinine measurement (mass/volume) 1.47 mg/dL 0.60-1.30 Serum or plasma urea nitrogen/creatinine mass ratio 12 NRG Serum or plasma creatinine measurement w ith calculation of estimated glomerular filtration rate 35 NRG Serum or plasma glucose measurement (mass/volume) 114 mg/dL 70-105 Serum or plasma calcium measurement (mass/volume) 10.8 mg/dL 8.5-10.1 Serum or plasma total bilirubin measurement (mass/volu me) 0.6 mg/dL 0.1-1.0 Serum or plasma alkaline phosphatase buddy surement (enzymatic activity/volume) 130 U/L 40-136 Serum or plasma aspartate aminotransfera se measurement (enzymatic activity/volume) 21 U/L 5-34 Serum or plasma alanine aminotransferase measurement (enzymatic activity/volume) 16 U/L 0-55 Serum or plasma protein measurement (mass/volume) 7.5 g/dL 6.4-8.2 Serum or plasma albumin measurement (mass/volume) 4.7 g/dL 3.2-4.5 Serum or plasma troponin i.cardiac measu rement (mass/volume) - 07/17/18 11:30 Serum or plasma troponin i.cardiac measurement (mass/v olume) < ng/mL <0.028 Serum or plasma C reactive protein measu rement (mass/volume) - 07/17/18 11:30 Serum or plasma C reactive protein measurement (mass/v olume) 0.07 mg/dL 0.00-0.50 Lipid 1996 panel - 07/17/18 11:30 Serum or plasma triglyceride measurement (mass/volume) 75 mg/dL <150 Serum or plasma cholesterol measurement (mass/volume) 159 mg/dL < 200 Serum or plasma cholesterol in HDL measurement (mass/v olume) 66 mg/dL 40-60 Cholesterol in LDL [mass/volume] in serum or plasma by direct assay 73 mg/dL 1-129 Serum or plasma cholesterol in VLDL measurement (mass/ volume) 15 mg/dL 5-40 Complete urinalysis with reflex to cultu re - 07/17/18 12:00 Urine color determination YELLOW NRG Urine clarity determination CLEAR NR G Urine pH measurement by test strip 7 5-9 Specific gravity of urine by test strip 1.005 1.016-1.022 Urine protein assay by test strip, semi-quantitative 3+ NEGATIVE Urine glucose detection by automated test strip NE GATIVE NEGATIVE Erythrocytes detection in urine sediment by light micr oscopy 5+ NEGATIVE Urine ketones detection by automated test strip NE GATIVE NEGATIVE Urine nitrite detection by test strip NEGATIVE NEGATIVE Urine total bilirubin detection by test strip NEGA TIVE NEGATIVE Urine urobilinogen measurement by automated test strip (mass/volume) NORMAL NORMAL Urine leukocyte esterase detection by dipstick 1+ NEGATIVE Automated urine sediment erythrocyte cou nt by microscopy (number/high power field) [HPF] NRG Automated urine sediment leukocyte count by microscopy (number/high power field) RARE NRG Bacteria detection in urine sediment by light microsco py TRACE NRG Squamous epithelial cells detection in u rine sediment by light microscopy 2-5 NRG Crystals detection in urine sediment by light microsco py NONE NRG Casts detection in urine sediment by light microscopy NONE NRG Mucus detection in urine sediment by light microscopy SMALL NRG Complete urinalysis with reflex to culture YES NRG Bacterial urine culture - 07/17/18 12:00 Bacterial urine culture NG NRG Capillary blood glucose measurement by g lucometer (mass/volume) - 07/17/18 12:04 Capillary blood glucose measurement by glucometer (mas s/volume) 107 mg/dL 70-110 Complete blood count (CBC) with automate d white blood cell (WBC) differential - 07/18/18 04:00 Blood leukocytes automated count (number/volume) 6.3 10*3/uL 4.3-11.0 Blood erythrocytes automated count (number/volume) 3.93 10*6/uL 4.35-5.85 Venous blood hemoglobin measurement (mass/volume) 9.5 g/dL 11.5-16.0 Blood hematocrit (volume fraction) 33 % 35-52 Automated erythrocyte mean corpuscular volume 84 [ foz_us] 80-99 Automated erythrocyte mean corpuscular h emoglobin (mass per erythrocyte) 24 pg 25-34 Automated erythrocyte mean corpuscular h emoglobin concentration measurement (mass/volume) 29 g/dL 32-36 Automated erythrocyte distribution width ratio 15. 5 % 10.0- 14.5 Automated blood platelet count (count/volume) 183 10*3/uL 130-400 Automated blood platelet mean volume measurement 9.8 [foz_us] 7.4-10.4 Automated blood neutrophils/100 leukocytes 62 % 42-75 Automated blood lymphocytes/100 leukocytes 27 % 12-44 Blood monocytes/100 leukocytes 9 % 0-12 Automated blood eosinophils/100 leukocytes 1 % 0-10 Automated blood basophils/100 leukocytes 0 % 0-10 Blood neutrophils automated count (number/volume) 4.0 10*3 1.8-7.8 Blood lymphocytes automated count (number/volume) 1.7 10*3 1.0-4.0 Blood monocytes automated count (number/volume) 0. 6 10*3 0.0-1.0 Automated eosinophil count 0.1 10*3/uL 0 .0-0.3 Automated blood basophil count (count/volume) 0.0 10*3/uL 0.0-0.1 Whole blood basic metabolic panel - 06/21 04:00 Serum or plasma sodium measurement (moles/volume) 141 mmol/L 135-145 Serum or plasma potassium measurement (moles/volume) 4.4 mmol/L 3.6-5.0 Serum or plasma chloride measurement (moles/volume) 111 mmol/L 98-107 Carbon dioxide 20 mmol/L 21-32 Serum or plasma anion gap determination (moles/volume) 10 mmol/L 5-14 Serum or plasma urea nitrogen measurement (mass/volume ) 17 mg/dL 7-18 Serum or plasma creatinine measurement (mass/volume) 1.40 mg/dL 0.60-1.30 Serum or plasma urea nitrogen/creatinine mass ratio 12 NRG Serum or plasma creatinine measurement w ith calculation of estimated glomerular filtration rate 37 NRG Serum or plasma glucose measurement (mass/volume) 100 mg/dL 70-105 Serum or plasma calcium measurement (mass/volume) 9.7 mg/dL 8.5-10.1 Serum or plasma phosphate measurement (m ass/volume) - 07/18/18 04:00 Serum or plasma phosphate measurement (mass/volume) 3.9 mg/dL 2.3-4.7 Magnesium - 07/18/18 04:00 Magnesium 1.8 mg/dL 1.8-2.4 Complete blood count (CBC) with automate d white blood cell (WBC) differential - 07/19/18 04:15 Blood leukocytes automated count (number/volume) 5.1 10*3/uL 4.3-11.0 Blood erythrocytes automated count (number/volume) 4.03 10*6/uL 4.35-5.85 Venous blood hemoglobin measurement (mass/volume) 9.9 g/dL 11.5-16.0 Blood hematocrit (volume fraction) 34 % 35-52 Automated erythrocyte mean corpuscular volume 85 [ foz_us] 80-99 Automated erythrocyte mean corpuscular h emoglobin (mass per erythrocyte) 25 pg 25-34 Automated erythrocyte mean corpuscular h emoglobin concentration measurement (mass/volume) 29 g/dL 32-36 Automated erythrocyte distribution width ratio 15. 4 % 10.0- 14.5 Automated blood platelet count (count/volume) 166 10*3/uL 130-400 Automated blood platelet mean volume measurement 10.7 [foz_us] 7.4-10.4 Automated blood neutrophils/100 leukocytes 49 % 42-75 Automated blood lymphocytes/100 leukocytes 36 % 12-44 Blood monocytes/100 leukocytes 10 % 0-12 Automated blood eosinophils/100 leukocytes 4 % 0-10 Automated blood basophils/100 leukocytes 1 % 0-10 Blood neutrophils automated count (number/volume) 2.5 10*3 1.8-7.8 Blood lymphocytes automated count (number/volume) 1.8 10*3 1.0-4.0 Blood monocytes automated count (number/volume) 0. 5 10*3 0.0-1.0 Automated eosinophil count 0.2 10*3/uL 0 .0-0.3 Automated blood basophil count (count/volume) 0.0 10*3/uL 0.0-0.1 Whole blood basic metabolic panel - 04/08 04:15 Serum or plasma sodium measurement (moles/volume) 143 mmol/L 135-145 Serum or plasma potassium measurement (moles/volume) 3.9 mmol/L 3.6-5.0 Serum or plasma chloride measurement (moles/volume) 113 mmol/L 98-107 Carbon dioxide 20 mmol/L 21-32 Serum or plasma anion gap determination (moles/volume) 10 mmol/L 5-14 Serum or plasma urea nitrogen measurement (mass/volume ) 14 mg/dL 7-18 Serum or plasma creatinine measurement (mass/volume) 1.27 mg/dL 0.60-1.30 Serum or plasma urea nitrogen/creatinine mass ratio 11 NRG Serum or plasma creatinine measurement w ith calculation of estimated glomerular filtration rate 41 NRG Serum or plasma glucose measurement (mass/volume) 105 mg/dL 70-105 Serum or plasma calcium measurement (mass/volume) 9.8 mg/dL 8.5-10.1 Serum or plasma phosphate measurement (m ass/volume) - 07/19/18 04:15 Serum or plasma phosphate measurement (mass/volume) 3.8 mg/dL 2.3-4.7 Magnesium - 07/19/18 04:15 Magnesium 1.7 mg/dL 1.8-2.4 Complete urinalysis with reflex to cultu re - 09/21/18 07:35 Urine color determination YELLOW NRG Urine clarity determination CLEAR NR G Urine pH measurement by test strip 7 5-9 Specific gravity of urine by test strip 1.005 1.016-1.022 Urine protein assay by test strip, semi-quantitative 2+ NEGATIVE Urine glucose detection by automated test strip NE GATIVE NEGATIVE Erythrocytes detection in urine sediment by light micr oscopy NEGATIVE NEGATIVE Urine ketones detection by automated test strip NE GATIVE NEGATIVE Urine nitrite detection by test strip NEGATIVE NEGATIVE Urine total bilirubin detection by test strip NEGA TIVE NEGATIVE Urine urobilinogen measurement by automated test strip (mass/volume) NORMAL NORMAL Urine leukocyte esterase detection by dipstick NEG ATIVE NEGATIVE Automated urine sediment erythrocyte cou nt by microscopy (number/high power field) NONE NRG Automated urine sediment leukocyte count by microscopy (number/high power field) NONE NRG Bacteria detection in urine sediment by light microsco py NEGATIVE NRG Squamous epithelial cells detection in u rine sediment by light microscopy RARE NRG Crystals detection in urine sediment by light microsco py NONE NRG Casts detection in urine sediment by light microscopy NONE NRG Mucus detection in urine sediment by light microscopy NEGATIVE NRG Complete urinalysis with reflex to culture NO NRG Complete blood count (CBC) with automate d white blood cell (WBC) differential - 09/21/18 07:50 Blood leukocytes automated count (number/volume) 6.3 10*3/uL 4.3-11.0 Blood erythrocytes automated count (number/volume) 4.77 10*6/uL 4.35-5.85 Venous blood hemoglobin measurement (mass/volume) 10.8 g/dL 11.5-16.0 Blood hematocrit (volume fraction) 38 % 35-52 Automated erythrocyte mean corpuscular volume 79 [ foz_us] 80-99 Automated erythrocyte mean corpuscular h emoglobin (mass per erythrocyte) 23 pg 25-34 Automated erythrocyte mean corpuscular h emoglobin concentration measurement (mass/volume) 29 g/dL 32-36 Automated erythrocyte distribution width ratio 16. 5 % 10.0- 14.5 Automated blood platelet count (count/volume) 188 10*3/uL 130-400 Automated blood platelet mean volume measurement 10.3 [foz_us] 7.4-10.4 Automated blood neutrophils/100 leukocytes 72 % 42-75 Automated blood lymphocytes/100 leukocytes 19 % 12-44 Blood monocytes/100 leukocytes 7 % 0-12 Automated blood eosinophils/100 leukocytes 2 % 0-10 Automated blood basophils/100 leukocytes 1 % 0-10 Blood neutrophils automated count (number/volume) 4.6 10*3 1.8-7.8 Blood lymphocytes automated count (number/volume) 1.2 10*3 1.0-4.0 Blood monocytes automated count (number/volume) 0. 4 10*3 0.0-1.0 Automated eosinophil count 0.1 10*3/uL 0 .0-0.3 Automated blood basophil count (count/volume) 0.0 10*3/uL 0.0-0.1 Comprehensive metabolic panel - 09/21/18 07:50 Serum or plasma sodium measurement (moles/volume) 141 mmol/L 135-145 Serum or plasma potassium measurement (moles/volume) 4.6 mmol/L 3.6-5.0 Serum or plasma chloride measurement (moles/volume) 109 mmol/L 98-107 Carbon dioxide 23 mmol/L 21-32 Serum or plasma anion gap determination (moles/volume) 9 mmol/L 5-14 Serum or plasma urea nitrogen measurement (mass/volume ) 16 mg/dL 7-18 Serum or plasma creatinine measurement (mass/volume) 1.58 mg/dL 0.60-1.30 Serum or plasma urea nitrogen/creatinine mass ratio 10 NRG Serum or plasma creatinine measurement w ith calculation of estimated glomerular filtration rate 32 NRG Serum or plasma glucose measurement (mass/volume) 113 mg/dL 70-105 Serum or plasma calcium measurement (mass/volume) 10.6 mg/dL 8.5-10.1 Serum or plasma total bilirubin measurement (mass/volu me) 0.5 mg/dL 0.1-1.0 Serum or plasma alkaline phosphatase buddy surement (enzymatic activity/volume) 143 U/L 40-136 Serum or plasma aspartate aminotransfera se measurement (enzymatic activity/volume) 23 U/L 5-34 Serum or plasma alanine aminotransferase measurement (enzymatic activity/volume) 14 U/L 0-55 Serum or plasma protein measurement (mass/volume) 7.1 g/dL 6.4-8.2 Serum or plasma albumin measurement (mass/volume) 4.4 g/dL 3.2-4.5 CALCIUM CORRECTED 10.3 mg/dL 8.5-10.1 Magnesium - 09/21/18 07:50 Magnesium 2.1 mg/dL 1.8-2.4 Serum iron and total iron binding capaci ty panel - 09/21/18 07:50 TIBC 299 % 280-380 Serum or plasma iron measurement (mass/volume) 27 % 35-180 Total iron binding capacity and transferrin saturation measurement 9 % 15-50 UIBC (unsaturated iron binding capacity) 272 % 55-450 Serum or plasma ferritin measurement (mass/volume) 11.6 % 20.0-177.0 Complete blood count (CBC) with automate d white blood cell (WBC) differential - 10/20/18 06:50 Blood leukocytes automated count (number/volume) 5.4 10*3/uL 4.3-11.0 Blood erythrocytes automated count (number/volume) 4.52 10*6/uL 4.35-5.85 Venous blood hemoglobin measurement (mass/volume) 10.2 g/dL 11.5-16.0 Blood hematocrit (volume fraction) 36 % 35-52 Automated erythrocyte mean corpuscular volume 79 [ foz_us] 80-99 Automated erythrocyte mean corpuscular h emoglobin (mass per erythrocyte) 23 pg 25-34 Automated erythrocyte mean corpuscular h emoglobin concentration measurement (mass/volume) 29 g/dL 32-36 Automated erythrocyte distribution width ratio 17. 2 % 10.0- 14.5 Automated blood platelet count (count/volume) 147 10*3/uL 130-400 Automated blood platelet mean volume measurement 10.8 [foz_us] 7.4-10.4 Automated blood neutrophils/100 leukocytes 53 % 42-75 Automated blood lymphocytes/100 leukocytes 32 % 12-44 Blood monocytes/100 leukocytes 9 % 0-12 Automated blood eosinophils/100 leukocytes 5 % 0-10 Automated blood basophils/100 leukocytes 1 % 0-10 Blood neutrophils automated count (number/volume) 2.9 10*3 1.8-7.8 Blood lymphocytes automated count (number/volume) 1.8 10*3 1.0-4.0 Blood monocytes automated count (number/volume) 0. 5 10*3 0.0-1.0 Automated eosinophil count 0.3 10*3/uL 0 .0-0.3 Automated blood basophil count (count/volume) 0.0 10*3/uL 0.0-0.1 PT panel in platelet poor plasma by coag ulation assay - 10/20/18 06:50 Prothrombin time (PT) in platelet poor plasma by coagu lation assay 20.4 s 12.2-14.7 INR in platelet poor plasma or blood by coagulation as say 1.7 0.8-1.4 Activated partial thromboplastin time (a PTT) in platelet poor plasma bycoagulation assay - 10/20/18 06:50 Activated partial thromboplastin time (a PTT) in platelet poor plasma bycoagulation assay 33 s 24-35 Comprehensive metabolic panel - 10/20/18 06:50 Serum or plasma sodium measurement (moles/volume) 142 mmol/L 135-145 Serum or plasma potassium measurement (moles/volume) 4.3 mmol/L 3.6-5.0 Serum or plasma chloride measurement (moles/volume) 113 mmol/L 98-107 Carbon dioxide 20 mmol/L 21-32 Serum or plasma anion gap determination (moles/volume) 9 mmol/L 5-14 Serum or plasma urea nitrogen measurement (mass/volume ) 18 mg/dL 7-18 Serum or plasma creatinine measurement (mass/volume) 1.55 mg/dL 0.60-1.30 Serum or plasma urea nitrogen/creatinine mass ratio 12 NRG Serum or plasma creatinine measurement w ith calculation of estimated glomerular filtration rate 33 NRG Serum or plasma glucose measurement (mass/volume) 98 mg/dL 70-105 Serum or plasma calcium measurement (mass/volume) 9.5 mg/dL 8.5-10.1 Serum or plasma total bilirubin measurement (mass/volu me) 0.4 mg/dL 0.1-1.0 Serum or plasma alkaline phosphatase buddy surement (enzymatic activity/volume) 95 U/L 40-136 Serum or plasma aspartate aminotransfera se measurement (enzymatic activity/volume) 18 U/L 5-34 Serum or plasma alanine aminotransferase measurement (enzymatic activity/volume) 13 U/L 0-55 Serum or plasma protein measurement (mass/volume) 6.0 g/dL 6.4-8.2 Serum or plasma albumin measurement (mass/volume) 3.8 g/dL 3.2-4.5 CALCIUM CORRECTED 9.7 mg/dL 8.5-10.1 Magnesium - 10/20/18 06:50 Magnesium 2.2 mg/dL 1.8-2.4 Serum or plasma creatine kinase measurem ent (enzymatic activity/volume) - 10/20/18 06:50 Serum or plasma creatine kinase measurem ent (enzymatic activity/volume) 87 U/L 29-168 Serum or plasma creatine kinase MB measu rement (enzymatic activity/volume) - 10/20/18 06:50 Serum or plasma creatine kinase MB measu rement (enzymatic activity/volume) 1.7 ng/mL <6.6 Myoglobin, serum - 10/20/18 06:50 Myoglobin, serum 61.7 ng/mL 10.0-92.0 Serum or plasma thyrotropin measurement by detection limit <=0.05 miu/l (units/volume) - 10/20/18 06:50 Serum or plasma thyrotropin measurement by detection limit <=0.05 miu/l (units/volume) 1.60 u[iU]/mL 0.35-4.94 Complete urinalysis with reflex to cultu re - 10/20/18 07:05 Urine color determination YELLOW NRG Urine clarity determination CLEAR NR G Urine pH measurement by test strip 8 5-9 Specific gravity of urine by test strip 1.010 1.016-1.022 Urine protein assay by test strip, semi-quantitative NEGATIVE NEGATIVE Urine glucose detection by automated test strip NE GATIVE NEGATIVE Erythrocytes detection in urine sediment by light micr oscopy NEGATIVE NEGATIVE Urine ketones detection by automated test strip NE GATIVE NEGATIVE Urine nitrite detection by test strip NEGATIVE NEGATIVE Urine total bilirubin detection by test strip NEGA TIVE NEGATIVE Urine urobilinogen measurement by automated test strip (mass/volume) NORMAL NORMAL Urine leukocyte esterase detection by dipstick NEG ATIVE NEGATIVE Automated urine sediment erythrocyte cou nt by microscopy (number/high power field) NONE NRG Automated urine sediment leukocyte count by microscopy (number/high power field) [HPF] NRG Bacteria detection in urine sediment by light microsco py NEGATIVE NRG Squamous epithelial cells detection in u rine sediment by light microscopy 2-5 NRG Crystals detection in urine sediment by light microsco py NONE NRG Casts detection in urine sediment by light microscopy NONE NRG Mucus detection in urine sediment by light microscopy NEGATIVE NRG Complete urinalysis with reflex to culture NO NRG CBC - 11/23/18 15:56 WHITE BLOOD CELL COUNT 5.4 Thousand/uL 3 .8-10.8 RED BLOOD CELL COUNT 4.65 Million/uL 3.8 0-5.10 HEMOGLOBIN 11.9 g/dL 11.7-15.5 HEMATOCRIT 39.1 % 35.0-45.0 MCV 84.1 fL 80.0-100.0 MCH 25.6 pg 27.0-33.0 MCHC 30.4 g/dL 32.0-36.0 RDW 22.3 % 11.0-15.0 PLATELET COUNT 147 Thousand/uL 140-400 MPV 10.6 fL 7.5-12.5 ABSOLUTE NEUTROPHILS 2797 cells/uL 1500- 7800 ABSOLUTE LYMPHOCYTES 1928 cells/uL 850-3 900 ABSOLUTE MONOCYTES 470 cells/uL 200-950 ABSOLUTE EOSINOPHILS 173 cells/uL 15-500 ABSOLUTE BASOPHILS 32 cells/uL 0-200 NEUTROPHILS 51.8 % NRG LYMPHOCYTES 35.7 % NRG MONOCYTES 8.7 % NRG EOSINOPHILS 3.2 % NRG BASOPHILS 0.6 % NRG CMP - 12/18/18 17:30 GLUCOSE 84 mg/dL 65-99 UREA NITROGEN (BUN) 23 mg/dL 7-25 CREATININE 1.73 mg/dL 0.60-0.93 eGFR NON-AFR. ERITREAN 29 mL/min/1.73m2 > OR = 60 eGFR 33 mL/min/1.73m2 > OR = 60 BUN/CREATININE RATIO 13 (calc) 6-22 SODIUM 142 mmol/L 135-146 POTASSIUM 4.7 mmol/L 3.5-5.3 CHLORIDE 110 mmol/L 98-110 CARBON DIOXIDE 24 mmol/L 20-32 CALCIUM 10.0 mg/dL 8.6-10.4 PROTEIN, TOTAL 6.2 g/dL 6.1-8.1 ALBUMIN 4.1 g/dL 3.6-5.1 GLOBULIN 2.1 g/dL (calc) 1.9-3.7 ALBUMIN/GLOBULIN RATIO 2.0 (calc) 1.0-2. 5 BILIRUBIN, TOTAL 0.4 mg/dL 0.2-1.2 ALKALINE PHOSPHATASE 91 U/L 33-130 AST 20 U/L 10-35 ALT 16 U/L 6-29 TSH - 12/18/18 17:30 TSH 1.53 mIU/L 0.40-4.50 Complete blood count (CBC) with automate d white blood cell (WBC) differential - 12/31/18 15:18 Blood leukocytes automated count (number/volume) 8.9 10*3/uL 4.3-11.0 Blood erythrocytes automated count (number/volume) 4.57 10*6/uL 4.35-5.85 Venous blood hemoglobin measurement (mass/volume) 13.1 g/dL 11.5-16.0 Blood hematocrit (volume fraction) 42 % 35-52 Automated erythrocyte mean corpuscular volume 92 [ foz_us] 80-99 Automated erythrocyte mean corpuscular h emoglobin (mass per erythrocyte) 29 pg 25-34 Automated erythrocyte mean corpuscular h emoglobin concentration measurement (mass/volume) 31 g/dL 32-36 Automated erythrocyte distribution width ratio 20. 5 % 10.0- 14.5 Automated blood platelet count (count/volume) 113 10*3/uL 130-400 Automated blood platelet mean volume measurement 10.5 [foz_us] 7.4-10.4 Automated blood neutrophils/100 leukocytes 74 % 42-75 Automated blood lymphocytes/100 leukocytes 16 % 12-44 Blood monocytes/100 leukocytes 9 % 0-12 Automated blood eosinophils/100 leukocytes 2 % 0-10 Automated blood basophils/100 leukocytes 0 % 0-10 Blood neutrophils automated count (number/volume) 6.6 10*3 1.8-7.8 Blood lymphocytes automated count (number/volume) 1.4 10*3 1.0-4.0 Blood monocytes automated count (number/volume) 0. 8 10*3 0.0-1.0 Automated eosinophil count 0.1 10*3/uL 0 .0-0.3 Automated blood basophil count (count/volume) 0.0 10*3/uL 0.0-0.1 Complete urinalysis with reflex to cultu re - 12/31/18 15:18 Urine color determination YELLOW NRG Urine clarity determination CLEAR NR G Urine pH measurement by test strip 7 5-9 Specific gravity of urine by test strip 1.010 1.016-1.022 Urine protein assay by test strip, semi-quantitative 1+ NEGATIVE Urine glucose detection by automated test strip NE GATIVE NEGATIVE Erythrocytes detection in urine sediment by light micr oscopy NEGATIVE NEGATIVE Urine ketones detection by automated test strip NE GATIVE NEGATIVE Urine nitrite detection by test strip NEGATIVE NEGATIVE Urine total bilirubin detection by test strip NEGA TIVE NEGATIVE Urine urobilinogen measurement by automated test strip (mass/volume) NORMAL NORMAL Urine leukocyte esterase detection by dipstick NEG ATIVE NEGATIVE Automated urine sediment erythrocyte cou nt by microscopy (number/high power field) NONE NRG Automated urine sediment leukocyte count by microscopy (number/high power field) NONE NRG Bacteria detection in urine sediment by light microsco py NEGATIVE NRG Squamous epithelial cells detection in u rine sediment by light microscopy NONE NRG Crystals detection in urine sediment by light microsco py NONE NRG Casts detection in urine sediment by light microscopy NONE NRG Mucus detection in urine sediment by light microscopy NEGATIVE NRG Complete urinalysis with reflex to culture NO NRG Comprehensive metabolic panel - 12/31/18 15:18 Serum or plasma sodium measurement (moles/volume) 140 mmol/L 135-145 Serum or plasma potassium measurement (moles/volume) 4.2 mmol/L 3.6-5.0 Serum or plasma chloride measurement (moles/volume) 109 mmol/L 98-107 Carbon dioxide 21 mmol/L 21-32 Serum or plasma anion gap determination (moles/volume) 10 mmol/L 5-14 Serum or plasma urea nitrogen measurement (mass/volume ) 17 mg/dL 7-18 Serum or plasma creatinine measurement (mass/volume) 1.55 mg/dL 0.60-1.30 Serum or plasma urea nitrogen/creatinine mass ratio 11 NRG Serum or plasma creatinine measurement w ith calculation of estimated glomerular filtration rate 33 NRG Serum or plasma glucose measurement (mass/volume) 112 mg/dL 70-105 Serum or plasma calcium measurement (mass/volume) 9.6 mg/dL 8.5-10.1 Serum or plasma total bilirubin measurement (mass/volu me) 0.5 mg/dL 0.1-1.0 Serum or plasma alkaline phosphatase buddy surement (enzymatic activity/volume) 114 U/L 40-136 Serum or plasma aspartate aminotransfera se measurement (enzymatic activity/volume) 20 U/L 5-34 Serum or plasma alanine aminotransferase measurement (enzymatic activity/volume) 21 U/L 0-55 Serum or plasma protein measurement (mass/volume) 6.3 g/dL 6.4-8.2 Serum or plasma albumin measurement (mass/volume) 3.9 g/dL 3.2-4.5 CALCIUM CORRECTED 9.7 mg/dL 8.5-10.1 PT panel in platelet poor plasma by coag ulation assay - 12/31/18 15:18 Prothrombin time (PT) in platelet poor plasma by coagu lation assay 17.6 s 12.2-14.7 INR in platelet poor plasma or blood by coagulation as say 1.4 0.8-1.4 Activated partial thromboplastin time (a PTT) in platelet poor plasma bycoagulation assay - 12/31/18 15:18 Activated partial thromboplastin time (a PTT) in platelet poor plasma bycoagulation assay 31 s 24-35 Fibrin D-dimer FEU measurement in platel et poor plasma (mass/volume) - 12/31/18 15:18 Fibrin D-dimer FEU measurement in platelet poor plasma (mass/volume) 0.27 ug/mL 0.00-0.49 Serum or plasma troponin i.cardiac measu rement (mass/volume) - 12/31/18 15:18 Serum or plasma troponin i.cardiac measurement (mass/v olume) < ng/mL <0.028 Complete blood count (CBC) with automate d white blood cell (WBC) differential - 01/01/19 03:00 Blood leukocytes automated count (number/volume) 6.8 10*3/uL 4.3-11.0 Blood erythrocytes automated count (number/volume) 4.54 10*6/uL 4.35-5.85 Venous blood hemoglobin measurement (mass/volume) 12.6 g/dL 11.5-16.0 Blood hematocrit (volume fraction) 42 % 35-52 Automated erythrocyte mean corpuscular volume 92 [ foz_us] 80-99 Automated erythrocyte mean corpuscular h emoglobin (mass per erythrocyte) 28 pg 25-34 Automated erythrocyte mean corpuscular h emoglobin concentration measurement (mass/volume) 30 g/dL 32-36 Automated erythrocyte distribution width ratio 20. 8 % 10.0- 14.5 Automated blood platelet count (count/volume) 131 10*3/uL 130-400 Automated blood platelet mean volume measurement 10.9 [foz_us] 7.4-10.4 Automated blood neutrophils/100 leukocytes 57 % 42-75 Automated blood lymphocytes/100 leukocytes 31 % 12-44 Blood monocytes/100 leukocytes 9 % 0-12 Automated blood eosinophils/100 leukocytes 3 % 0-10 Automated blood basophils/100 leukocytes 0 % 0-10 Blood neutrophils automated count (number/volume) 3.9 10*3 1.8-7.8 Blood lymphocytes automated count (number/volume) 2.1 10*3 1.0-4.0 Blood monocytes automated count (number/volume) 0. 6 10*3 0.0-1.0 Automated eosinophil count 0.2 10*3/uL 0 .0-0.3 Automated blood basophil count (count/volume) 0.0 10*3/uL 0.0-0.1 Comprehensive metabolic panel - 01/01/19 03:00 Serum or plasma sodium measurement (moles/volume) 142 mmol/L 135-145 Serum or plasma potassium measurement (moles/volume) 4.3 mmol/L 3.6-5.0 Serum or plasma chloride measurement (moles/volume) 109 mmol/L 98-107 Carbon dioxide 22 mmol/L 21-32 Serum or plasma anion gap determination (moles/volume) 11 mmol/L 5-14 Serum or plasma urea nitrogen measurement (mass/volume ) 15 mg/dL 7-18 Serum or plasma creatinine measurement (mass/volume) 1.43 mg/dL 0.60-1.30 Serum or plasma urea nitrogen/creatinine mass ratio 10 NRG Serum or plasma creatinine measurement w ith calculation of estimated glomerular filtration rate 36 NRG Serum or plasma glucose measurement (mass/volume) 113 mg/dL 70-105 Serum or plasma calcium measurement (mass/volume) 9.8 mg/dL 8.5-10.1 Serum or plasma total bilirubin measurement (mass/volu me) 0.3 mg/dL 0.1-1.0 Serum or plasma alkaline phosphatase buddy surement (enzymatic activity/volume) 97 U/L 40-136 Serum or plasma aspartate aminotransfera se measurement (enzymatic activity/volume) 17 U/L 5-34 Serum or plasma alanine aminotransferase measurement (enzymatic activity/volume) 15 U/L 0-55 Serum or plasma protein measurement (mass/volume) 5.7 g/dL 6.4-8.2 Serum or plasma albumin measurement (mass/volume) 3.4 g/dL 3.2-4.5 CALCIUM CORRECTED 10.3 mg/dL 8.5-10.1 Lipid 1996 panel - 01/01/19 03:00 Serum or plasma triglyceride measurement (mass/volume) 116 mg/dL <150 Serum or plasma cholesterol measurement (mass/volume) 117 mg/dL < 200 Serum or plasma cholesterol in HDL measurement (mass/v olume) 44 mg/dL 40-60 Cholesterol in LDL [mass/volume] in serum or plasma by direct assay 51 mg/dL 1-129 Serum or plasma cholesterol in VLDL measurement (mass/ volume) 23 mg/dL 5-40 Whole blood basic metabolic panel - 12/19 08/06 03:00 Serum or plasma sodium measurement (moles/volume) 142 mmol/L 135-145 Serum or plasma potassium measurement (moles/volume) 4.3 mmol/L 3.6-5.0 Serum or plasma chloride measurement (moles/volume) 111 mmol/L 98-107 Carbon dioxide 22 mmol/L 21-32 Serum or plasma anion gap determination (moles/volume) 9 mmol/L 5-14 Serum or plasma urea nitrogen measurement (mass/volume ) 18 mg/dL 7-18 Serum or plasma creatinine measurement (mass/volume) 1.59 mg/dL 0.60-1.30 Serum or plasma urea nitrogen/creatinine mass ratio 11 NRG Serum or plasma creatinine measurement w ith calculation of estimated glomerular filtration rate 32 NRG Serum or plasma glucose measurement (mass/volume) 108 mg/dL 70-105 Serum or plasma calcium measurement (mass/volume) 9.5 mg/dL 8.5-10.1 CBC - 03/19/19 15:45 WHITE BLOOD CELL COUNT 6.5 Thousand/uL 3 .8-10.8 RED BLOOD CELL COUNT 4.37 Million/uL 3.8 0-5.10 HEMOGLOBIN 13.1 g/dL 11.7-15.5 HEMATOCRIT 41.2 % 35.0-45.0 MCV 94.3 fL 80.0-100.0 MCH 30.0 pg 27.0-33.0 MCHC 31.8 g/dL 32.0-36.0 RDW 12.4 % 11.0-15.0 PLATELET COUNT 133 Thousand/uL 140-400 MPV 11.0 fL 7.5-12.5 ABSOLUTE NEUTROPHILS 4017 cells/uL 1500- 7800 ABSOLUTE LYMPHOCYTES 1833 cells/uL 850-3 900 ABSOLUTE MONOCYTES 449 cells/uL 200-950 ABSOLUTE EOSINOPHILS 163 cells/uL 15-500 ABSOLUTE BASOPHILS 39 cells/uL 0-200 NEUTROPHILS 61.8 % NRG LYMPHOCYTES 28.2 % NRG MONOCYTES 6.9 % NRG EOSINOPHILS 2.5 % NRG BASOPHILS 0.6 % NRG Complete blood count (CBC) with automate d white blood cell (WBC) differential - 03/22/19 21:30 Blood leukocytes automated count (number/volume) 8.3 10*3/uL 4.3-11.0 Blood erythrocytes automated count (number/volume) 4.59 10*6/uL 4.35-5.85 Venous blood hemoglobin measurement (mass/volume) 14.0 g/dL 11.5-16.0 Blood hematocrit (volume fraction) 45 % 35-52 Automated erythrocyte mean corpuscular volume 97 [ foz_us] 80-99 Automated erythrocyte mean corpuscular h emoglobin (mass per erythrocyte) 31 pg 25-34 Automated erythrocyte mean corpuscular h emoglobin concentration measurement (mass/volume) 31 g/dL 32-36 Automated erythrocyte distribution width ratio 14. 4 % 10.0- 14.5 Automated blood platelet count (count/volume) 129 10*3/uL 130-400 Automated blood platelet mean volume measurement 10.5 [foz_us] 7.4-10.4 Automated blood neutrophils/100 leukocytes 71 % 42-75 Automated blood lymphocytes/100 leukocytes 19 % 12-44 Blood monocytes/100 leukocytes 8 % 0-12 Automated blood eosinophils/100 leukocytes 1 % 0-10 Automated blood basophils/100 leukocytes 1 % 0-10 Blood neutrophils automated count (number/volume) 5.9 10*3 1.8-7.8 Blood lymphocytes automated count (number/volume) 1.6 10*3 1.0-4.0 Blood monocytes automated count (number/volume) 0. 7 10*3 0.0-1.0 Automated eosinophil count 0.1 10*3/uL 0 .0-0.3 Automated blood basophil count (count/volume) 0.0 10*3/uL 0.0-0.1 Comprehensive metabolic panel - 03/22/19 21:30 Serum or plasma sodium measurement (moles/volume) 143 mmol/L 135-145 Serum or plasma potassium measurement (moles/volume) 4.4 mmol/L 3.6-5.0 Serum or plasma chloride measurement (moles/volume) 112 mmol/L 98-107 Carbon dioxide 18 mmol/L 21-32 Serum or plasma anion gap determination (moles/volume) 13 mmol/L 5-14 Serum or plasma urea nitrogen measurement (mass/volume ) 20 mg/dL 7-18 Serum or plasma creatinine measurement (mass/volume) 1.74 mg/dL 0.60-1.30 Serum or plasma urea nitrogen/creatinine mass ratio 11 NRG Serum or plasma creatinine measurement w ith calculation of estimated glomerular filtration rate 29 NRG Serum or plasma glucose measurement (mass/volume) 107 mg/dL 70-105 Serum or plasma calcium measurement (mass/volume) 10.7 mg/dL 8.5-10.1 Serum or plasma total bilirubin measurement (mass/volu me) 0.6 mg/dL 0.1-1.0 Serum or plasma alkaline phosphatase buddy surement (enzymatic activity/volume) 127 U/L 40-136 Serum or plasma aspartate aminotransfera se measurement (enzymatic activity/volume) 27 U/L 5-34 Serum or plasma alanine aminotransferase measurement (enzymatic activity/volume) 25 U/L 0-55 Serum or plasma protein measurement (mass/volume) 7.3 g/dL 6.4-8.2 Serum or plasma albumin measurement (mass/volume) 4.5 g/dL 3.2-4.5 CALCIUM CORRECTED 10.3 mg/dL 8.5-10.1 Serum or plasma creatine kinase measurem ent (enzymatic activity/volume) - 03/22/19 21:30 Serum or plasma creatine kinase measurem ent (enzymatic activity/volume) 143 U/L 29-168 Serum or plasma troponin i.cardiac measu rement (mass/volume) - 03/22/19 21:30 Serum or plasma troponin i.cardiac measurement (mass/v olume) 0.036 ng/mL <0.028 Serum or plasma lithium measurement (mol es/volume) - 03/22/19 21:30 BNP PT 93.2 pg/mL <100.0 Complete blood count (CBC) with automate d white blood cell (WBC) differential - 03/23/19 04:19 Blood leukocytes automated count (number/volume) 7.0 10*3/uL 4.3-11.0 Blood erythrocytes automated count (number/volume) 3.97 10*6/uL 4.35-5.85 Venous blood hemoglobin measurement (mass/volume) 12.1 g/dL 11.5-16.0 Blood hematocrit (volume fraction) 39 % 35-52 Automated erythrocyte mean corpuscular volume 98 [ foz_us] 80-99 Automated erythrocyte mean corpuscular h emoglobin (mass per erythrocyte) 31 pg 25-34 Automated erythrocyte mean corpuscular h emoglobin concentration measurement (mass/volume) 31 g/dL 32-36 Automated erythrocyte distribution width ratio 14. 3 % 10.0- 14.5 Automated blood platelet count (count/volume) 119 10*3/uL 130-400 Automated blood platelet mean volume measurement 10.4 [foz_us] 7.4-10.4 Automated blood neutrophils/100 leukocytes 62 % 42-75 Automated blood lymphocytes/100 leukocytes 28 % 12-44 Blood monocytes/100 leukocytes 9 % 0-12 Automated blood eosinophils/100 leukocytes 1 % 0-10 Automated blood basophils/100 leukocytes 0 % 0-10 Blood neutrophils automated count (number/volume) 4.3 10*3 1.8-7.8 Blood lymphocytes automated count (number/volume) 2.0 10*3 1.0-4.0 Blood monocytes automated count (number/volume) 0. 7 10*3 0.0-1.0 Automated eosinophil count 0.1 10*3/uL 0 .0-0.3 Automated blood basophil count (count/volume) 0.0 10*3/uL 0.0-0.1 Serum or plasma troponin i.cardiac measu rement (mass/volume) - 03/23/19 04:19 Serum or plasma troponin i.cardiac measurement (mass/v olume) 0.068 ng/mL <0.028 Complete blood count (CBC) with automate d white blood cell (WBC) differential - 03/25/19 04:35 Blood leukocytes automated count (number/volume) 5.8 10*3/uL 4.3-11.0 Blood erythrocytes automated count (number/volume) 4.16 10*6/uL 4.35-5.85 Venous blood hemoglobin measurement (mass/volume) 12.6 g/dL 11.5-16.0 Blood hematocrit (volume fraction) 41 % 35-52 Automated erythrocyte mean corpuscular volume 98 [ foz_us] 80-99 Automated erythrocyte mean corpuscular h emoglobin (mass per erythrocyte) 30 pg 25-34 Automated erythrocyte mean corpuscular h emoglobin concentration measurement (mass/volume) 31 g/dL 32-36 Automated erythrocyte distribution width ratio 14. 1 % 10.0- 14.5 Automated blood platelet count (count/volume) 135 10*3/uL 130-400 Automated blood platelet mean volume measurement 10.7 [foz_us] 7.4-10.4 Automated blood neutrophils/100 leukocytes 48 % 42-75 Automated blood lymphocytes/100 leukocytes 39 % 12-44 Blood monocytes/100 leukocytes 10 % 0-12 Automated blood eosinophils/100 leukocytes 3 % 0-10 Automated blood basophils/100 leukocytes 0 % 0-10 Blood neutrophils automated count (number/volume) 2.8 10*3 1.8-7.8 Blood lymphocytes automated count (number/volume) 2.2 10*3 1.0-4.0 Blood monocytes automated count (number/volume) 0. 6 10*3 0.0-1.0 Automated eosinophil count 0.2 10*3/uL 0 .0-0.3 Automated blood basophil count (count/volume) 0.0 10*3/uL 0.0-0.1 Comprehensive metabolic panel - 03/25/19 04:35 Serum or plasma sodium measurement (moles/volume) 140 mmol/L 135-145 Serum or plasma potassium measurement (moles/volume) 4.1 mmol/L 3.6-5.0 Serum or plasma chloride measurement (moles/volume) 112 mmol/L 98-107 Carbon dioxide 18 mmol/L 21-32 Serum or plasma anion gap determination (moles/volume) 10 mmol/L 5-14 Serum or plasma urea nitrogen measurement (mass/volume ) 14 mg/dL 7-18 Serum or plasma creatinine measurement (mass/volume) 1.35 mg/dL 0.60-1.30 Serum or plasma urea nitrogen/creatinine mass ratio 10 NRG Serum or plasma creatinine measurement w ith calculation of estimated glomerular filtration rate 38 NRG Serum or plasma glucose measurement (mass/volume) 93 mg/dL 70-105 Serum or plasma calcium measurement (mass/volume) 9.5 mg/dL 8.5-10.1 Serum or plasma total bilirubin measurement (mass/volu me) 0.5 mg/dL 0.1-1.0 Serum or plasma alkaline phosphatase buddy surement (enzymatic activity/volume) 100 U/L 40-136 Serum or plasma aspartate aminotransfera se measurement (enzymatic activity/volume) 21 U/L 5-34 Serum or plasma alanine aminotransferase measurement (enzymatic activity/volume) 18 U/L 0-55 Serum or plasma protein measurement (mass/volume) 6.1 g/dL 6.4-8.2 Serum or plasma albumin measurement (mass/volume) 3.7 g/dL 3.2-4.5 CALCIUM CORRECTED 9.7 mg/dL 8.5-10.1 Capillary blood glucose measurement by g lucometer (mass/volume) - 03/26/19 06:02 Capillary blood glucose measurement by glucometer (mas s/volume) 98 mg/dL 70-110 Whole blood basic metabolic panel - 09/07 12:01 Serum or plasma sodium measurement (moles/volume) 138 mmol/L 135-145 Serum or plasma potassium measurement (moles/volume) 4.5 mmol/L 3.6-5.0 Serum or plasma chloride measurement (moles/volume) 111 mmol/L 98-107 Carbon dioxide 19 mmol/L 21-32 Serum or plasma anion gap determination (moles/volume) 8 mmol/L 5-14 Serum or plasma urea nitrogen measurement (mass/volume ) 18 mg/dL 7-18 Serum or plasma creatinine measurement (mass/volume) 1.69 mg/dL 0.60-1.30 Serum or plasma urea nitrogen/creatinine mass ratio 11 NRG Serum or plasma creatinine measurement w ith calculation of estimated glomerular filtration rate 30 NRG Serum or plasma glucose measurement (mass/volume) 157 mg/dL 70-105 Serum or plasma calcium measurement (mass/volume) 9.3 mg/dL 8.5-10.1 Complete blood count (CBC) with automate d white blood cell (WBC) differential - 03/29/19 10:17 Blood leukocytes automated count (number/volume) 6.5 10*3/uL 4.3-11.0 Blood erythrocytes automated count (number/volume) 4.41 10*6/uL 4.35-5.85 Venous blood hemoglobin measurement (mass/volume) 13.4 g/dL 11.5-16.0 Blood hematocrit (volume fraction) 44 % 35-52 Automated erythrocyte mean corpuscular volume 99 [ foz_us] 80-99 Automated erythrocyte mean corpuscular h emoglobin (mass per erythrocyte) 30 pg 25-34 Automated erythrocyte mean corpuscular h emoglobin concentration measurement (mass/volume) 31 g/dL 32-36 Automated erythrocyte distribution width ratio 14. 6 % 10.0- 14.5 Automated blood platelet count (count/volume) 162 10*3/uL 130-400 Automated blood platelet mean volume measurement 10.3 [foz_us] 7.4-10.4 Automated blood neutrophils/100 leukocytes 59 % 42-75 Automated blood lymphocytes/100 leukocytes 28 % 12-44 Blood monocytes/100 leukocytes 10 % 0-12 Automated blood eosinophils/100 leukocytes 2 % 0-10 Automated blood basophils/100 leukocytes 1 % 0-10 Blood neutrophils automated count (number/volume) 3.8 10*3 1.8-7.8 Blood lymphocytes automated count (number/volume) 1.8 10*3 1.0-4.0 Blood monocytes automated count (number/volume) 0. 7 10*3 0.0-1.0 Automated eosinophil count 0.2 10*3/uL 0 .0-0.3 Automated blood basophil count (count/volume) 0.0 10*3/uL 0.0-0.1 Comprehensive metabolic panel - 03/29/19 10:17 Serum or plasma sodium measurement (moles/volume) 142 mmol/L 135-145 Serum or plasma potassium measurement (moles/volume) 4.4 mmol/L 3.6-5.0 Serum or plasma chloride measurement (moles/volume) 110 mmol/L 98-107 Carbon dioxide 23 mmol/L 21-32 Serum or plasma anion gap determination (moles/volume) 9 mmol/L 5-14 Serum or plasma urea nitrogen measurement (mass/volume ) 22 mg/dL 7-18 Serum or plasma creatinine measurement (mass/volume) 1.73 mg/dL 0.60-1.30 Serum or plasma urea nitrogen/creatinine mass ratio 13 NRG Serum or plasma creatinine measurement w ith calculation of estimated glomerular filtration rate 29 NRG Serum or plasma glucose measurement (mass/volume) 109 mg/dL 70-105 Serum or plasma calcium measurement (mass/volume) 10.1 mg/dL 8.5-10.1 Serum or plasma total bilirubin measurement (mass/volu me) 0.6 mg/dL 0.1-1.0 Serum or plasma alkaline phosphatase buddy surement (enzymatic activity/volume) 118 U/L 40-136 Serum or plasma aspartate aminotransfera se measurement (enzymatic activity/volume) 19 U/L 5-34 Serum or plasma alanine aminotransferase measurement (enzymatic activity/volume) 17 U/L 0-55 Serum or plasma protein measurement (mass/volume) 6.6 g/dL 6.4-8.2 Serum or plasma albumin measurement (mass/volume) 4.0 g/dL 3.2-4.5 CALCIUM CORRECTED 10.1 mg/dL 8.5-10.1 Serum or plasma troponin i.cardiac measu rement (mass/volume) - 03/29/19 10:17 Serum or plasma troponin i.cardiac measurement (mass/v olume) 0.062 ng/mL <0.028 PT panel in platelet poor plasma by coag ulation assay - 03/29/19 10:17 Prothrombin time (PT) in platelet poor plasma by coagu lation assay 12.9 s 12.2-14.7 INR in platelet poor plasma or blood by coagulation as say 0.9 0.8-1.4 Activated partial thromboplastin time (a PTT) in platelet poor plasma bycoagulation assay - 03/29/19 10:17 Activated partial thromboplastin time (a PTT) in platelet poor plasma bycoagulation assay 27 s 24-35 Fibrin D-dimer FEU measurement in platel et poor plasma (mass/volume) - 03/29/19 10:17 Fibrin D-dimer FEU measurement in platelet poor plasma (mass/volume) 0.84 ug/mL 0.00-0.49 Complete urinalysis with reflex to cultu re - 03/29/19 12:15 Urine color determination YELLOW NRG Urine clarity determination CLEAR NR G Urine pH measurement by test strip 7.0 5-9 Specific gravity of urine by test strip 1.015 1.016-1.022 Urine protein assay by test strip, semi-quantitative NEGATIVE NEGATIVE Urine glucose detection by automated test strip NE GATIVE NEGATIVE Erythrocytes detection in urine sediment by light micr oscopy NEGATIVE NEGATIVE Urine ketones detection by automated test strip NE GATIVE NEGATIVE Urine nitrite detection by test strip NEGATIVE NEGATIVE Urine total bilirubin detection by test strip NEGA TIVE NEGATIVE Urine urobilinogen measurement by automated test strip (mass/volume) 0.2 mg/dL < = 1.0 Urine leukocyte esterase detection by dipstick NEG ATIVE NEGATIVE Automated urine sediment erythrocyte cou nt by microscopy (number/high power field) NONE NRG Automated urine sediment leukocyte count by microscopy (number/high power field) NONE NRG Bacteria detection in urine sediment by light microsco py NEGATIVE NRG Crystals detection in urine sediment by light microsco py NONE NRG Casts detection in urine sediment by light microscopy NONE NRG Mucus detection in urine sediment by light microscopy NEGATIVE NRG Complete urinalysis with reflex to culture NO NRG PTH, Intact - 07/13/19 13:30 PTH, Intact 88 pg/mL 15-65 Urine Protein/Creat - 07/13/19 13:30 MTP 15 mg/dL 0-20 Urine Creatinine 65.6 mg/dl 0.0-50.0 Urine Protein/Creat Ratio 0.22 mg/dL PTH, Intact - 07/13/19 13:30 PTH, INTACT 88 PG/ML 15-65 Comprehensive metabolic panel - 08/10/19 17:30 Serum or plasma sodium measurement (moles/volume) 142 mmol/L 135-145 Serum or plasma potassium measurement (moles/volume) 5.1 mmol/L 3.6-5.0 Serum or plasma chloride measurement (moles/volume) 110 mmol/L 98-107 Carbon dioxide 20 mmol/L 21-32 Serum or plasma anion gap determination (moles/volume) 12 mmol/L 5-14 Serum or plasma urea nitrogen measurement (mass/volume ) 30 mg/dL 7-18 Serum or plasma creatinine measurement (mass/volume) 1.75 mg/dL 0.60-1.30 Serum or plasma urea nitrogen/creatinine mass ratio 17 NRG Serum or plasma creatinine measurement w ith calculation of estimated glomerular filtration rate 28 NRG Serum or plasma glucose measurement (mass/volume) 112 mg/dL 70-105 Serum or plasma calcium measurement (mass/volume) 9.8 mg/dL 8.5-10.1 Serum or plasma total bilirubin measurement (mass/volu me) 0.4 mg/dL 0.1-1.0 Serum or plasma alkaline phosphatase buddy surement (enzymatic activity/volume) 113 U/L 40-136 Serum or plasma aspartate aminotransfera se measurement (enzymatic activity/volume) 26 U/L 5-34 Serum or plasma alanine aminotransferase measurement (enzymatic activity/volume) 23 U/L 0-55 Serum or plasma protein measurement (mass/volume) 6.7 g/dL 6.4-8.2 Serum or plasma albumin measurement (mass/volume) 4.0 g/dL 3.2-4.5 CALCIUM CORRECTED 9.8 mg/dL 8.5-10.1 Complete blood count (CBC) with automate d white blood cell (WBC) differential - 08/10/19 17:30 Blood leukocytes automated count (number/volume) 7.7 10*3/uL 4.3-11.0 Blood erythrocytes automated count (number/volume) 4.48 10*6/uL 4.35-5.85 Venous blood hemoglobin measurement (mass/volume) 13.3 g/dL 11.5-16.0 Blood hematocrit (volume fraction) 42 % 35-52 Automated erythrocyte mean corpuscular volume 94 [ foz_us] 80-99 Automated erythrocyte mean corpuscular h emoglobin (mass per erythrocyte) 30 pg 25-34 Automated erythrocyte mean corpuscular h emoglobin concentration measurement (mass/volume) 32 g/dL 32-36 Automated erythrocyte distribution width ratio 13. 8 % 10.0- 14.5 Automated blood platelet count (count/volume) 143 10*3/uL 130-400 Automated blood platelet mean volume measurement 10.5 [foz_us] 7.4-10.4 Automated blood neutrophils/100 leukocytes 60 % 42-75 Automated blood lymphocytes/100 leukocytes 26 % 12-44 Blood monocytes/100 leukocytes 10 % 0-12 Automated blood eosinophils/100 leukocytes 3 % 0-10 Automated blood basophils/100 leukocytes 0 % 0-10 Blood neutrophils automated count (number/volume) 4.6 10*3 1.8-7.8 Blood lymphocytes automated count (number/volume) 2.0 10*3 1.0-4.0 Blood monocytes automated count (number/volume) 0. 8 10*3 0.0-1.0 Automated eosinophil count 0.2 10*3/uL 0 .0-0.3 Automated blood basophil count (count/volume) 0.0 10*3/uL 0.0-0.1 Magnesium - 08/10/19 17:30 Magnesium 2.9 mg/dL 1.6-2.4 Encounters ACCT No. Visit Date/Time Discharge Status Pt. Type Provider Facility Loc./Unit Complaint [id number] 07/15/2019 09:08:00 Document Registration [id number] 07/31/2019 13:09:00 23:59:59 CLS Outpatient DARIO RUSSO DO [facility] RAD CHRONIC KIDNEY DISEASE STAGE 3,RENAL FAILURE [id number] 03/29/2019 09:44:00 13:02:00 DIS Emergency BOBO LINN DO [facility] ER DOUBLE VISION [id number] 03/22/2019 21:21:00 14:16:00 DIS Inpatient ALLISON WOODS, KENZIE Ortiz [facility] 4TH ELEVATED TROPONIN,CLOSE D L CLAVICAL FX,FALL, [id number] 03/20/2019 13:23:00 15:02:00 DIS Outpatient JUHI LACY MD [facility] 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 [id number] 02/21/2019 13:47:00 00:01:00 DIS Outpatient JUHI LACY MD [facility] 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 [id number] 12/31/2018 18:50:00 11:11:00 DIS Inpatient SANDY WILLIS DO [facility] ICU CVA VS TIA [id number] 11/24/2018 10:01:00 00:01:00 DIS Outpatient JUHI LACY MD [facility] 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 L SIDED WEAKNESS [id number] 06/14/2018 08:59:00 23:59:59 CLS Outpatient MAYURI GARAY [facility] LAB HYPOGLYCEMIA [id number] 05/03/2018 11:30:00 13:40:00 DIS Inpatient SANDY WILLIS DO [facility] IRF CVA [id number] 04/29/2018 11:55:00 019 10:19:00 DIS Inpatient LAZARO ALEXANDER, SANDY Smith [facility] 4TH STROKE [id number] 04/05/2018 08:26:00 019 23:59:59 CLS Preadmit DAPHNIE ODELL [facility] CARD CVA,CAROTID AR BLANCA STENOSIS [id number] 03/01/2018 09:37:00 018 23:59:59 CLS Outpatient NIKOS MAZARIEGOS [facility] RAD LOW BACK PAIN,B OWEL INCONT [id number] 02/27/2018 10:00:00 23:59:59 CLS Outpatient NIKOS MAZARIEGOS [facility] RAD DIARRHEA [id number] 01/27/2018 16:58:00 018 23:59:59 CLS Outpatient SALAS MENDOZA MD [facility] LAB DIARRHEA [id number] 01/24/2018 06:05:00 018 08:37:00 DIS Emergency ROXANNE WODOS, KANDY Munoz [facility] ER DIARRHEA [id number] 12/19/2017 14:14:00 018 15:56:00 DIS Outpatient EDILMA BROWNING APRN [facility] REHAB LBP;BALANCE/GAIT ABNOR MALITIES [id number] 12/14/2017 09:32:00 018 00:01:00 DIS Outpatient EDILMA BROWNING APRN [facility] REHAB LBP;BALANCE/GAIT ABNOR MALITIES [id number] 11/26/2017 08:39:00 018 10:48:00 DIS Emergency ERIK MENDEZ MD [facility] ER SEVERE BACK PAIN X1 WEE K [id number] 05/18/2017 10:03:00 23:59:59 CLS Outpatient DOMI MARTINEZ MD [facility] CATH CRYPTOGENIC STROBE [id number] 03/16/2017 08:00:00 017 23:59:59 CLS Outpatient TELLO WILKINSON MD [facility] RAD HTN [id number] 01/02/2017 16:08:00 017 14:15:00 DIS Inpatient WILLIS DO, SANDY V [facility] ICU COMPLETE LEFT HEMIANOPS IA,HEADACHE [id number] 09/05/2016 23:25:00 017 15:45:00 DIS Inpatient WILLIS DO, SANDY V [facility] 4TH GENERALIZED WEAKNESS; A LTERED MENTAL STATUS; UTI [id number] 08/13/2016 10:34:00 017 13:18:00 DIS Outpatient NADIA BARTHOLOMEW MD [facility] ENDO WEIGHT LOSS/HX POLYPS [id number] 08/11/2016 05:49:00 017 14:46:00 DIS Outpatient NADIA BARTHOLOMEW MD [facility] PREOP WEIGHT LOSS/HX POLYPS [id number] 06/25/2015 09:00:00 016 23:59:59 CLS Outpatient DOMI MARTINEZ MD [facility] CARD CAD,CLAUDICATIONS, HTN HLP CVA [id number] 04/11/2014 14:55:00 015 10:55:00 DIS Outpatient TELLO WILKINSON MD [facility] REHAB CVA [id number] 04/16/2014 14:19:00 015 15:13:00 DIS Outpatient TELLO WILKINSON MD [facility] REHAB CVA [id number] 04/10/2014 07:45:00 015 12:42:00 DIS Outpatient DOMI MARTINEZ MD [facility] CATH CVA,CAROTID STENOSIS,HT N,HLP [id number] 03/22/2014 11:32:00 015 11:45:00 DIS Inpatient JERICA GILLIAM MD [facility] IRF IRF-CVA [id number] 03/20/2014 14:40:00 015 11:00:00 DIS Inpatient FRANCISCO WOODS, IWONA Faye [facility] ICU CVA RIGHT SIDED WEAKNESS [id number] 12/12/2013 08:09:00 014 23:59:59 CLS Outpatient TELLO WILKINSON MD [facility] RAD CKD 3 [id number] 11/07/2013 10:45:00 23:59:59 CLS Outpatient TINO ODELL [facility] CARD CAROTID ART ALONZO STENOSIS,HTN,HLP,DYSPNEA [id number] 07/19/2013 07:02:00 23:59:59 CLS Outpatient ERNESTO FRITZ MD [facility] GERD [id number] 07/11/2013 07:29:00 23:59:59 CLS Outpatient ERNESTO FRITZ MD [facility] PREOP GERD [id number] 12/28/2012 08:03:00 23:59:59 CLS Outpatient ERNESTO FRITZ MD [facility] REFLUX [id number] 12/27/2012 07:12:00 23:59:59 CLS Outpatient ERNESTO FRITZ MD [facility] PREOP REFLUX [id number] 10/26/2012 07:07:00 11:35:00 DIS Outpatient ERNESTO FRITZ MD [facility] GERD [id number] 10/25/2012 07:22:00 23:59:59 CLS Outpatient ERNESTO FRIZT MD [facility] PREOP GERD [id number] 09/13/2012 07:30:00 17:27:00 DIS Outpatient ERNESTO FRITZ MD [facility] GASTROESOPHAGEAL REFLU X DISEASE [id number] 09/08/2012 12:15:00 23:59:59 CLS Outpatient ERNESTO FRITZ MD [facility] PREOP GERD [id number] 08/31/2012 07:17:00 013 23:59:59 CLS Outpatient ERNESTO FRITZ MD [facility] SDC GERD [id number] 08/30/2012 07:17:00 013 23:59:59 CLS Outpatient ERNESTO FRITZ MD [facility] PREOP GERD [id number] 08/10/2019 17:52:00 Document Registration [id number] 08/02/2018 06:56:00 Document Registration [id number] 08/02/2018 06:56:00 Document Registration [id number] 08/02/2018 06:56:00 Document Registration [id number] 03/22/2014 15:43:00 Document Registration [id number] 03/22/2014 15:43:00 Document Registration [id number] 03/22/2014 15:43:00 Document Registration [id number] 03/22/2014 15:43:00 Document Registration [id number] 06/22/2012 08:16:00 Document Registration [id number] 06/21/2012 08:10:00 Document Registration [id number] 02/16/2012 13:08:00 Document Registration [id number] 12/29/2011 10:50:00 Document Registration [id number] 11/25/2011 11:45:00 Document Registration [id number] 12/18/2010 10:24:00 Document Registration [id number] 10/20/2010 13:35:00 Document Registration [id number] 09/28/2010 10:33:00 Document Registration [id number] 09/24/2010 13:48:00 Document Registration [id number] 06/18/2010 12:28:00 Document Registration [id number] 04/21/2010 00:00:00 Document Registration [id number] 04/14/2010 13:40:00 Document Registration [id number] 03/30/2010 13:42:00 Document Registration [id number] 03/27/2010 10:20:00 Document Registration [id number] 03/17/2010 19:50:00 Document Registration [id number] 01/14/2010 19:10:00 Document Registration [id number] 12/18/2009 10:20:00 Document Registration [id number] 12/16/2009 09:23:00 Document Registration [id number] 09/22/2009 10:14:00 Document Registration [id number] 09/11/2009 09:36:00 Document Registration [id number] 08/25/2009 09:20:00 Document Registration [id number] 07/30/2009 11:44:00 Document Registration [id number] 02/26/2009 11:04:00 Document Registration [id number] 01/22/2009 16:12:00 Document Registration [id number] 12/28/2008 16:48:00 Document Registration [id number] 10/16/2008 09:11:00 Document Registration [id number] 09/09/2008 13:26:00 Document Registration [id number] 12/22/2006 12:05:00 Document Registration [id number] 07/29/2006 13:17:00 Document Registration [id number] 11/09/2017 14:35:31 11/09/2017 23:59:5 9 [facility] Outpatient [id number] 12/02/2016 09:50:00 Document Registration [id number] 07/13/2019 13:57:00 07/13/2019 23:59 :00 DIS Outpatient Juhi Lacy [id number] 03/07/2017 14:11:00 03/07/2017 23:59: 00 DIS Outpatient TELLO WILKINSON [id number] 12/02/2016 09:50:00 12/02/2016 23:59: 00 DIS Outpatient TELLO WILKINSON [id number] 11/30/2016 17:50:00 11/30/2016 23:59: 00 DIS Outpatient TELLO WILKINSON [id number] 07/21/2016 13:51:00 07/21/2016 23:59: 00 DIS Outpatient TELLO WILKINSON [id number] 07/01/2016 16:30:00 07/01/2016 23:59: 00 DIS Outpatient TELLO WILKINSON [id number] 02/05/2016 16:48:00 02/05/2016 23:59: 00 DIS Outpatient TELLO WILKINSON [id number] 07/09/2019 14:47:38 Document Registration [id number] 03/07/2017 10:30:00 Document Registration [id number] 01/03/2017 11:00:00 Document Registration [id number] 11/30/2016 17:00:00 Document Registration [id number] 12/03/2016 10:16:00 Document Registration [id number] 12/02/2016 12:18:00 Document Registration [id number] 04/26/2019 13:00:00 04/26/2019 23:59: 59 [facility] Outpatient [facility] [id number] 03/19/2019 15:00:00 Document Registration [id number] 12/18/2018 16:20:00 Document Registration [id number] 11/23/2018 15:00:00 Document Registration [id number] 12/02/2016 11:16:00 Document Registration
[2019-08-10] MEDS ORDERED: VENlafaxine XR 37.5 MG (EFFEXOR XR) CAP PO ONE (20:27)
[2019-08-10] MEDS ORDERED: DESV50TA8 PO (20:28)
[2019-08-10] MEDS ORDERED: VENlafaxine 75 MG (EFFEXOR) TAB PO ONE (20:30)
[2019-08-10] MEDS ORDERED: LEVETIRACETAM 500 MG (KEPPRA) TAB PO ONE (20:30)
[2019-08-10 21:06] VITALS: BP 120/85
== END 2019-08-10 21:07 | disposition home or self-care (01) ==
LOC: EDUNIT# 17:28 → ER 17:30
DX: R56.9 Unspecified convulsions (principal); F19.239 Other psychoactive substance dependence with withdrawal, unspecified; I48.91 Unspecified atrial fibrillation; I25.10 Atherosclerotic heart disease of native coronary artery without angina pectoris; I12.9 Hypertensive chronic kidney disease with stage 1 through stage 4 chronic kidney disease, or unspecified chronic kidney disease; N18.9 Chronic kidney disease, unspecified; E78.00 Pure hypercholesterolemia, unspecified; I73.9 Peripheral vascular disease, unspecified; K21.9 Gastro-esophageal reflux disease without esophagitis; F41.9 Anxiety disorder, unspecified; F32.9 Major depressive disorder, single episode, unspecified; Z86.010 Personal history of colon polyps; Z91.14 Patient's other noncompliance with medication regimen; Z86.73 Personal history of transient ischemic attack (TIA), and cerebral infarction without residual deficits; Z80.3 Family history of malignant neoplasm of breast; Z82.49 Family history of ischemic heart disease and other diseases of the circulatory system; Z88.8 Allergy status to other drugs, medicaments and biological substances; Z79.82 Long term (current) use of aspirin
CPT/HCPCS: 36415; 51701; 70450; 80053; 81000; 83735; 85025

== ENCOUNTER 2019-08-31 16:28 | Inpatient (IN) | payer MEDICARE ==
[~2019-08-31] VITALS: Ht 162 cm; Wt 74.5 kg
[2019-08-31] VITALS (11 sets, daily range): BP systolic 90–139; BP diastolic 67–93
[~2019-08-31 16:28] MED LIST changes: +DESV50TA8 PO
[2019-08-31] MEDS ORDERED: LACTATED RINGERS 1,000 ML IV ONE ×2 (16:57→19:32)
[2019-08-31 17:17] LABS: BASOPHILS % (AUTO) 1 % (0-10); EOSINOPHILS % (AUTO) 1 % (0-10); HEMATOCRIT 42 % (35-52); HEMOGLOBIN 13.4 G/DL (11.5-16.0); LYMPHOCYTES # (AUTO) 0.6 X 10^3 (1.0-4.0); LYMPHOCYTES % (AUTO) 15 % (12-44); MEAN CORPUSCULAR HEMOGLOBIN 30 PG (25-34); MEAN CORPUSCULAR HGB CONC 32 G/DL (32-36); MEAN CORPUSCULAR VOLUME 94 FL (80-99); MEAN PLATELET VOLUME 10.4 FL (7.4-10.4); MONOCYTES # (AUTO) 0.4 X 10^3 (0.0-1.0); MONOCYTES % (AUTO) 10 % (0-12); NEUTROPHILS # (AUTO) 3.3 X 10^3 (1.8-7.8); NEUTROPHILS % (AUTO) 74 % (42-75); RED CELL DISTRIBUTION WIDTH 14.4 % (10.0-14.5); WHITE BLOOD COUNT 4.4 10^3/uL (4.3-11.0)
[2019-08-31 17:21] LABS: PLATELET COUNT 94 10^3/uL (130-400)
--- NOTE | 2019-08-31 17:25 | ED General ---
General Chief Complaint: Fever-Adult/Adol Stated Complaint: DIARRHEA 4-5 DAYS/FEVER/CONFUSION Nursing Triage Note: pt presents to ED with c/o diarrhea, weakness, and fevers x 4-5 days. pt is a&o x 3. pt usually gets around with walker but has had increased difficulty since sx began. Nursing Sepsis Screen: No Definite Risk Source of Information: Patient Exam Limitations: Physical Impairments (ANNY MERA MD) History of Present Illness Date Seen by Provider: Aug 31, 2019 Time Seen by Provider: 16:46 Initial Comments Here with report of diarrhea over the last few days, weakness and fevers. Has been increasingly weak since onset of symptoms. Patient is poor historian and does have history of multiple strokes in the past as well as seizure disorder. Unsure of exposure. Denies sore throat or runny nose but does admit to weakness. Timing/Duration: 4-5 Days, Getting Worse Severity: Moderate Associated Systoms: No Chest Pain, No Cough; Fever/Chills; No Nausea/Vomiting, No Seizure, No Shortness of Air; Weakness (ANNY MERA MD) Allergies and Home Medications Allergies Coded Allergies: donepezil (Verified Allergy, Unknown, disoriented, stroke like symptoms, 03/23/19) fentanyl (Verified Adverse Reaction, Mild, 03/23/19) MAKES HER HALLUCINATE Home Medications Acetaminophen 325 Mg Tablet, 650 MG PO Q4H PRN for PAIN-MILD, (Reported) Amlodipine Besylate 5 Mg Tablet, 5 MG PO DAILY, (Reported) Aspirin 81 Mg Tablet.dr, 81 MG PO DAILY, (Reported) Atorvastatin Calcium 20 Mg Tablet, 20 MG PO HS Prescribed by: SALAS GALEANO on 03/27/19 141 Brimonidine Tartrate 5 Ml Btl, 1 DROP OU BID, (Reported) Bupropion HCl 300 Mg Tab.er.24h, 300 MG PO DAILY, (Reported) Desvenlafaxine 50 Mg Tab.er.24h, 50 MG PO DAILY Prescribed by: ANNY MERA on 08/10/192027 Diclofenac Sodium 100 Gm Gel..gram., 2 GM TOP QID PRN for JOINT PAIN, (Reported) Dronedarone HCl 400 Mg Tablet, 400 MG PO BID Prescribed by: SALAS GALEANO on 03/27/19 141 Gabapentin 300 Mg Capsule, 300 MG PO BID, (Reported) Hydrocodone Bit/Acetaminophen 1 Tab Tab, 1 TAB PO Q4H PRN for PAIN-MODERATE (5- 7) Prescribed by: SALAS GALEANO on 03/27/191418 Latanoprost 2.5 Ml Drops, 1 DROP OU HS, (Reported) Magnesium Oxide 400 Mg Tablet, 400 MG PO BID, (Reported) Metoprolol Succinate 100 Mg Tab.er.24h, 100 MG PO DAILY, (Reported) Pantoprazole Sodium 40 Mg Tablet.dr, 40 MG PO DAILY Prescribed by: SALAS GALEANO on 03/27/191418 Polyethylene Glycol 3350 17 Gm Powd.pack, 17 GM PO BID Prescribed by: SALAS GALEANO on 03/27/191418 Patient Home Medication List Home Medication List Reviewed: Yes (ANNY MERA MD) Review of Systems Review of Systems Constitutional: see HPI; No chills, No fever EENTM: no symptoms reported Respiratory: no symptoms reported Gastrointestinal: abdominal pain, diarrhea, nausea Genitourinary: no symptoms reported Musculoskeletal: No back pain; muscle weakness Skin: no symptoms reported Psychiatric/Neurological: See HPI, Pre-Existing Deficit, Weakness (ANNY MERA MD) All Other Systems Reviewed Negative Unless Noted: Yes (ANNY MERA MD) Past Ijhmtng-Vtddgt-Phcohm Hx Past Med/Social Hx: Reviewed Nursing Past Med/Soc Hx (ANNY MERA MD) Patient Social History Alcohol Use: Denies Use Recreational Drug Use: No Smoking Status: Former Smoker Type Used: Cigarettes Former Smoker, Quit: Dec 19, 1986 2nd Hand Smoke Exposure: No Recent Foreign Travel: No Contact w/Someone Who Travel: No Recent Infectious Disease Expo: No Recent Hopitalizations: Yes (ANNY MERA MD) Immunizations Up To Date Tetanus Booster (TDap): Unknown PED Vaccines UTD: Yes Date of Pneumonia Vaccine: Mar 23, 2016 Date of Influenza Vaccine: Dec 21, 2018 (ANNY MERA MD) Seasonal Allergies Seasonal Allergies: Yes (ANNY MERA MD) Past Medical History Surgeries: Yes (LOOP RECORDER; JAW SURGERY; HIATAL HERNIA REPAIR X 2;BILAT CATARACTS;DENTAL) Abdominal, Appendectomy, Eye Surgery, Tonsillectomy Respiratory: Yes (CHRONIC DYSPNEA ON EXERTION) Currently Using CPAP: No Currently Using BIPAP: No Cardiac: Yes (LOOP RECORDER IN PLACE;PERIPHERAL VASCULAR DZ;CAROTID DZ;CLAUDICATION) Atrial Fibrillation, Coronary Artery Disease, Heart Murmur, High Cholesterol, Hypertension, Peripheral Vascular, Valvular Heart Disease Neurological: Yes (MULTIPLE CVA'S--AT LEAST 5 OR 6 CVA'S WITH LEFT SIDE WEAKNESS) Stroke, TIA 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 Disorders: No Female 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 Disorders: Denies 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 Sexually Transmitted Disease: No HIV/AIDS: No Genitourinary: Yes (BLADDER CONTROL PROBLEMS; CHRONIC RENAL FAILURE/INSUFFICIENCY) Renal Failure Gastrointestinal: Yes (HIATAL HERNIA SURGERY X 2; EGD/COLONOSCOPY) Gastroesophageal Reflux, Polyps, Hiatal Hernia, Ulcer Musculoskeletal: Yes Arthritis, Fibromyalgia, Rheumatoid Arthritis Endocrine: No HEENT: Yes (BILATERAL CATARACT SURGERY) Cataract, Glaucoma Hearing Impairment: Denies Cancer: No Did You Recieve Any Treatments: No Psychosocial: Yes Anxiety, Depression Integumentary: No Blood Disorders: Yes (ANEMIA) Adverse Reaction/Blood Tranf: No (ANNY MERA MD) Family Medical History Reviewed Nursing Family Hx (ANNY MERA MD) FH: CVA (cerebrovascular accident) G8 BROTHER G8 SISTER FH: breast cancer 19 MOTHER FH: cancer 19 FATHER Hypertension 19 MOTHER Physical Exam-Suspected Sepsis Physical Exam Vital Signs Vital Signs - First Documented 08/31/19 08/31/19 16:54 17:17 Temp 37.9 Pulse 53 Resp 20 B/P (MAP) 126/62 (83) Pulse Ox 100 O2 Delivery Nasal Cannula O2 Flow Rate 2.00 FiO2 100 (ANDRE FREIRE APRN) Vital Signs Capillary Refill : Less Than 3 Seconds (ANNY MERA MD) Blood Pressure Mean: 89 Height, Weight, BMI Height: 5'4.00" Weight: 170lbs. 1.6oz. 77.024035ih; 27.00 BMI Method:Stated General Appearance: No Apparent Distress, Chronically ill HEENT: PERRL/EOMI, Pharynx Normal Neck: Full Range of Motion, Supple Respiratory: Lungs Clear, Normal Breath Sounds Cardiovascular: No Murmur, Bradycardia Gastrointestinal: Non Tender, Soft, Abnormal Bowel Sounds (quiet sounds but obese) Back: Normal Inspection, No Vertebral Tenderness Extremity: Normal Range of Motion, Non Tender Neurologic/Psychiatric: Alert, Other (Drowsy. knows self and situation) Skin: normal color, warm/dry (ANNY MERA MD) Focused Exam Lactate Level 08/31/19 17:00: Lactic Acid Level 1.06 (ANDRE FREIRE APRN) Lactic Acid Level Laboratory Tests Test 08/31/19 17:00 Lactic Acid Level 1.06 MMOL/L (0.50-2.00) (ANDRE FREIRE APRN) Progress/Results/Core Measures Suspected Sepsis Recent Fever Within 48 Hours: Yes Infection Criteria Present: Suspected New Infection New/Unexplained Altered Menta: Yes Sepsis Screen: No Definite Risk SIRS Temperature: Pulse: 52 Respiratory Rate: 21 Laboratory Tests 08/31/19 17:00: White Blood Count 4.4 Blood Pressure 125 /72 Mean: 89 08/31/19 17:00: Laboratory Tests 08/31/19 17:00: Platelet Count 94L (ANNY MERA MD) Results/Orders Lab Results Laboratory Tests Test 08/31/19 17:00 08/31/19 17:47 Range/Units White Blood Count 4.4 4.3-11.0 10^3/uL Red Blood Count 4.48 4.35-5.85 10^6/uL Hemoglobin 13.4 11.5-16.0 G/DL Hematocrit 42 35-52 % Mean Corpuscular Volume 94 80-99 FL Mean Corpuscular Hemoglobin 30 25-34 PG Mean Corpuscular Hemoglobin Concent 32 32-36 G/DL Red Cell Distribution Width 14.4 10.0-14.5 % Platelet Count 94 L 130-400 10^3/uL Mean Platelet Volume 10.4 7.4-10.4 FL Neutrophils (%) (Auto) 74 42-75 % Lymphocytes (%) (Auto) 15 12-44 % Monocytes (%) (Auto) 10 0-12 % Eosinophils (%) (Auto) 1 0-10 % Basophils (%) (Auto) 1 0-10 % Neutrophils # (Auto) 3.3 1.8-7.8 X 10^3 Lymphocytes # (Auto) 0.6 L 1.0-4.0 X 10^3 Monocytes # (Auto) 0.4 0.0-1.0 X 10^3 Eosinophils # (Auto) 0.0 0.0-0.3 10^3/uL Basophils # (Auto) 0.0 0.0-0.1 10^3/uL Erythrocyte Sedimentation Rate 8 0-30 MM/HR Prothrombin Time 13.1 12.2-14.7 SEC INR Comment 1.0 0.8-1.4 Activated Partial Thromboplast Time 22 L 24-35 SEC D-Dimer 1.31 H 0.00-0.49 UG/ML Sodium Level 138 135-145 MMOL/L Potassium Level 4.9 3.6-5.0 MMOL/L Chloride Level 106 98-107 MMOL/L Carbon Dioxide Level 21 21-32 MMOL/L Anion Gap 11 5-14 MMOL/L Blood Urea Nitrogen 26 H 7-18 MG/DL Creatinine 1.74 H 0.60-1.30 MG/DL Estimat Glomerular Filtration Rate 29 BUN/Creatinine Ratio 15 Glucose Level 107 H 70-105 MG/DL Lactic Acid Level 1.06 0.50-2.00 MMOL/L Calcium Level 9.9 8.5-10.1 MG/DL Corrected Calcium 9.7 8.5-10.1 MG/DL Total Bilirubin 0.8 0.1-1.0 MG/DL Aspartate Amino Transf (AST/SGOT) 85 H 5-34 U/L Alanine Aminotransferase (ALT/SGPT) 62 H 0-55 U/L Alkaline Phosphatase 137 H 40-136 U/L Lactate Dehydrogenase 482 H 125-220 U/L C-Reactive Protein High Sensitivity 2.16 H 0.00-0.50 MG/DL Total Protein 7.4 6.4-8.2 GM/DL Albumin 4.2 3.2-4.5 GM/DL Procalcitonin 0.43 H <0.10 NG/ML Urine Color YELLOW Urine Clarity SL CLOUDY Urine pH 7.5 5-9 Urine Specific [place] 1.020 1.016-1.022 Urine Protein 2+ H NEGATIVE Urine Glucose (UA) NEGATIVE NEGATIVE Urine Ketones NEGATIVE NEGATIVE Urine Nitrite NEGATIVE NEGATIVE Urine Bilirubin NEGATIVE NEGATIVE Urine Urobilinogen 0.2 < = 1.0 MG/DL Urine Leukocyte Esterase 1+ H NEGATIVE Urine RBC (Auto) NEGATIVE NEGATIVE Urine RBC NONE /HPF Urine WBC 10-25 H /HPF Urine Crystals PRESENT H /LPF Urine Amorphous Sediment FEW RADHA PHOSPHATE H /LPF Urine Bacteria TRACE /HPF Urine Casts NONE /LPF Urine Mucus SMALL H /LPF Urine Culture Indicated CULTURE PENDING (ANDRE FREIRE APRN) My Orders Orders - ANDRE FREIRE APRN Hepatitis Panel Acute (08/31/19 18:04) BNP (08/31/19 18:26) Chest 1 View, Ap/Pa Only (08/31/19 ) (ANDRE FREIRE APRN) Medications Given in ED Current Medications Medications Dose Ordered Sig/[place] Route Start Time Stop Time Status Last Admin Dose Admin Lactated Ringer's 1,000 ml @ 0 mls/hr Q0M ONCE IV 08/31/19 16:57 08/31/19 16:59 DC 08/31/19 17:12 1,000 MLS/HR (ANDRE FREIRE APRN) Vital Signs/I&O 08/31/19 08/31/19 08/31/19 08/31/19 16:54 17:17 17:17 17:17 Temp 37.9 37.9 37.9 Pulse 53 52 52 Resp 20 20 21 B/P (MAP) 126/62 (83) 125/72 125/72 (89) Pulse Ox 100 100 100 O2 Delivery Nasal Cannula Nasal Cannula Nasal Cannula Nasal Cannula O2 Flow Rate 2.00 2.00 2.00 2.00 FiO2 100 08/31/19 08/31/19 17:54 18:17 Pulse 62 59 Resp 16 18 B/P (MAP) 139/69 139/67 (91) Pulse Ox 96 96 O2 Delivery Room Air Room Air (ANDRE FREIRE APRN) Vital Signs/I&O Capillary Refill : Less Than 3 Seconds (ANNY MERA MD) Blood Pressure Mean: 89 Progress Note : Progress Note Seen and evaluated. IV, labs, UA, blood cultures, lactic acid, chest x-ray and COVID-19 testing initiated. LR 1 L bolus. Monitor patient. (ANNY MERA MD) Departure Communication (Admissions) Time/Spoke to Admitting Phy: 18:35 1833-patient was reportedly about 86-90% on room air, she was given 2 L via nasal cannula and subsequent increase in SPO2 to 100%. At this time she is 93% on room air. Oxygen was discontinued. Her d-dimer was elevated but so was her cr eatinine so we'll use. Protocol. We'll consult Dr. Rasmussen, Dr. Spaulding and Dr. Fields's. She does have some tenderness and nodularity to the lateral aspect of the left thigh with some yellowish-colored bruising which she states is from a seizure that she had a few weeks ago, she was evaluated here in the emergency room at that time. This could certainly account for her elevated d-dimer. (ANDRE FREIRE APRN) Impression Primary Impression: transient hypoxia Additional Impression: Nausea vomiting and diarrhea Disposition: ADMITTED INPATIENT Condition: Stable Admissions Decision to Admit Reason: Admit from ER (General) Decision to Admit/Date: Aug 31, 2019 Time/Decision to Admit Time: 18:35 (ANDRE FREIRE APRN) Departure-Patient Inst. Referrals: JUHI LACY MD (PCP/Family) Primary Care Physician ANNY MERA MD Aug 31, 2019 17:25 ANDRE FREIRE APRN Aug 31, 2019 18:36
[2019-08-31 17:42] LABS: FIBRIN DEGRADATION PRODUCTS 1.31 UG/ML (0.00-0.49); PROTHROMBIN TIME PATIENT 13.1 SEC (12.2-14.7)
[2019-08-31 17:51] LABS: CREATININE SERUM 1.74 MG/DL (0.60-1.30); POTASSIUM 4.9 MMOL/L (3.6-5.0)
[2019-08-31 17:52] LABS: ALBUMIN 4.2 GM/DL (3.2-4.5); BILIRUBIN,TOTAL 0.8 MG/DL (0.1-1.0); CALCIUM 9.9 MG/DL (8.5-10.1); TOTAL PROTEIN 7.4 GM/DL (6.4-8.2)
[2019-08-31 17:55] LABS: ERYTHROCYTE SEDIMENTATION RATE 8 MM/HR (0-30)
--- NOTE | 2019-08-31 17:55 | NUR ---
pt removed from O2 per NC at 1747 d/t pt having saturations at 99%-100%. after re-eval, pt has O2 sat of 96% on room air. will continue to monitor.
[2019-08-31 17:59] LABS: BILIRUBIN,URINE NEGATIVE (NEGATIVE); CLARITY,URINE SL CLOUDY; COLOR,URINE YELLOW; GLUCOSE, URINE (UA) NEGATIVE (NEGATIVE); KETONES,URINE NEGATIVE (NEGATIVE); LEUKOCYTE ESTERASE ,URINE 1+ (NEGATIVE); NITRITE,URINE NEGATIVE (NEGATIVE); PH,URINE 7.5 (5-9); PROTEIN,URINE 2+ (NEGATIVE)
[2019-08-31 18:16] LABS: BACTERIA,URINE TRACE /HPF
[2019-08-31 18:17] LABS: AMORPHOUS SEDIMENT,UR FEW AMOR PHOSPHATE /LPF
--- NOTE | 2019-08-31 18:34 | Diagnostic Imaging Report ---
INDICATION: FEVER COMPARISON: 03/29/2019. FINDINGS: Single frontal view of the chest demonstrates mild cardiomegaly. Pulmonary vasculature is within normal limits. Note is made of calcified aortic atherosclerosis. The lungs are well aerated and clear. No large pleural effusion or pneumothorax is seen. The visualized osseous structures show no acute abnormalities. IMPRESSION: 1. Mild cardiomegaly, but no evidence of failure or focal infiltrate. Dictated by: Dictated on workstation # [id number]
[2019-08-31 19:45] LABS: ABG BASE EXCESS -0.8 MMOL/L (-2.5-2.5); ABG OXYGEN SATURATION 93 % (94-100); ABG PCO2 41 MMHG (35-45); ABG PH 7.38 (7.37-7.43); ABG PO2 72 MMHG (79-93); ABG TCO2 24.6 MMOL/L (21.0-31.0); ALLENS TEST YES-POS; INSPIRED O2 ROOM AIR; PATIENT TEMP 100.4; VENTILATOR NO
[2019-08-31] MEDS ORDERED: LOPERAMIDE 2 MG (IMODIUM) TABLET PO PRN (20:15)
[2019-08-31] MEDS ORDERED: ONDANSETRON 4 MG/2 ML (SDV) Z0FRAN IV PRN (20:15)
[2019-08-31] MEDS ORDERED: CATHETER FLUSH 10 ML SYR IV PRN (20:15)
--- NOTE | 2019-08-31 22:00 | NUR ---
PT IS ASKING FOR HER CELL PHONE "THAT SHE BROUGHT WITH HER." THIS RN SPOKE WITH PT'S DAUGHTER AND PT'S DAUGHTER HAS HER CELL PHONE AT THIS TIME. NECKLACE AND PT'S MED LIST LOCKED IN CABINET OUTSIDE OF ROOM.
[2019-08-31] MEDS: CEFEPIME 2,000 MG/SWFI 20 ML IV PUSH IV SCH ×2 (22:24)
[2019-08-31] MEDS: LACTATED RINGERS 1,000 ML IV SCH (22:25)
[2019-08-31] MEDS: HEParin 1000 UNIT/ML (10ML VIAL) FOR BOLUS IV SCH (22:27)
--- OUTSIDE RECORDS SUMMARY | 2019-08-31 22:32 | XMS REPORT | Clinical Summary ---
Author Author [facility] Organization [facility] Address Unknown Phone Unavailable Care Team Providers Care Facilities Maintenance Assistant Name Role Phone Hellen Tomas RN Unavailable Unavailable Oriana Watts MD PCP Source Comments Some departments are not documenting in the electronic medical record. If you d o not see the information that you expected, contact Release of Information in [facility] [employer] Information Management department at [phone] for further assistan ce in locating additional records.[facility] Allergies Not on File Medications Not [...]
--- OUTSIDE RECORDS SUMMARY | 2019-08-31 22:39 | XMS REPORT | Continuity of Care Document ---
Demographics Preferred Language Unknown Marital Status Unknown Confucianism Affiliation Unknown Race Unknown Ethnic Group Unknown Author Organization Unknown Address Unknown Phone Unavailable Allergies Active Description Code Type Severity Reaction Onset Reported/Identified Relationship to Patient Clinical Status Yes NO KNOWN DRUG ALLERGIES UNKNOWN NO KNOWN DRUG ALLERG Yes NO KNOWN DRUG ALLERGIES UNKNOWN UNKNOWN Yes NKDA NKDA Mild N/A 09/01/2008 Yes No Known Drug Allergies [id number] Drug Allergy Unknown N/A 08/13/2016 Yes fentanyl [id number] Drug Allergy Mild N/A 03/23/2019 Yes donepezil [id number] Drug Allergy Unknown disoriented, st 03/23/2019 Yes donepezil [id number] Drug Allergy Unknown N/A 03/23/2019 Medications There [...] ERNESTO S Ot 429.3 06/25/2015 CATRINA WOODS, ENRESTO S Ot 530.81 06/25/2015 CATRINA WOODS, ERNESTO [...] 9 PERIPHERAL VASCULAR DISEASE, UNSPECIFIED 08/11/2016 NADIA BARTHOLOMEW [...] EXAMINATION 09/06/2016 ERNESTO FRITZ MD Ot V72.81 [id number] CARDIOVASCULAR 09/06/2016 ERNESTO FRITZ MD Ot V72.83 [...] LOSS 09/07/2016 SANDY WILLIS DO Ot Z79.82 SENIOR CARE (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 OF ASPIRIN 09/07/2016 SANDY WILLIS DO Ot Z79.89 9 OTHER STROKE COORDINATOR (CURRENT) DRUG THERAPY 09/07/2016 SANDY WILLIS DO [...] 01/03/2017 W 414.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 01/03/2017 W E78.5 HYPE RLIPIDEMIA, UNSPECIFIED 01/03/2017 W I10 ESSENT IAL (PRIMARY) HYPERTENSION 01/03/2017 W 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 01/03/2017 A [...] 2 01/04/2017 SANDY WILLIS DO Ot Z79.02 SENIOR CARE (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 OF ANTITHROMBOTI 01/04/2017 SANDY WILLIS [...] A HEALTH CARE FACILITY 03/07/2017 A Z00.01 [facility] WITH ABNORMAL [...] EXAMINATION 05/17/2017 ERNESTO FRITZ MD Ot V72.81 [id number] CARDIOVASCULAR 05/17/2017 ERNESTO FRITZ MD Ot V72.83 [...] 05/19/2017 DOMI MARTINEZ MD Ot Z79.899 OTHER SENIOR CARE (CURRENT) DRUG THERAPY 05/19/2017 DOMI MARTINEZ MD [...] 05/24/2017 DOMI MARTINEZ MD Ot Z79.899 OTHER SENIOR CARE (CURRENT) DRUG THERAPY 05/24/2017 DOMI MARTINEZ MD [...] 06/08/2017 DOMI MARTINEZ MD Ot Z79.899 OTHER SENIOR CARE (CURRENT) DRUG THERAPY 06/08/2017 DOMI MARTINEZ MD [...] SPINE 11/26/2017 ERIK MENDEZ MD Ot Z79.02 SENIOR CARE (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 OF ANTITHROMBOTI 11/26/2017 ERIK MENDEZ MD Ot Z79.82 SENIOR CARE (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 OF ASPIRIN 11/26/2017 ERIK MEDNEZ MD Ot Z80 .3 FAMILY HISTORY OF [...] Ot D64 .9 ANEMIA, UNSPECIFIED 11/29/2017 ERIK MENDEZ MD Ot F41 .9 ANXIETY DISORDER, UNSPECIFIED 11/29/2017 ERIK MENDEZ MD Ot I10 ESSENTIAL (PRIMARY) HYPERTENSION 11/29/2017 ERIK MENDEZ MD Ot M41.86 OTHER FORMS OF SCOLIOSIS, LUMBAR REGION 11/29/2017 ERIK MENDEZ MD Ot M54 .5 LOW BACK PAIN 11/29/2017 ERIK MENDEZ MD Ot M54 .6 PAIN IN THORACIC SPINE 11/29/2017 ERIK MENDEZ MD Ot Z79.02 SENIOR CARE (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 OF ANTITHROMBOTI 11/29/2017 ERIK MENDEZ MD Ot Z79.82 SENIOR CARE (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 OF ASPIRIN 11/29/2017 ERIK MENDEZ [...] SPINE 12/02/2017 ERIK MENDEZ MD Ot Z79.02 SENIOR CARE (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 OF ANTITHROMBOTI 12/02/2017 ERIK MENDEZ MD Ot Z79.82 SENIOR CARE (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 OF ASPIRIN 12/02/2017 ERIK MENDEZ [...] M54.5 LOW BACK PAIN 12/16/2017 EDILMA BROWNING DIRECTOR OF ROOMS Ot R26.89 OTHER ABNORMALITIES OF GAIT AND MOBILITY 12/18/2017 EDILMA BROWNING DIRECTOR OF ROOMS Ot M54.5 LOW BACK PAIN 12/18/2017 EDILMA BROWNING DIRECTOR OF ROOMS Ot R26.89 OTHER ABNORMALITIES OF GAIT AND MOBILITY 12/19/2017 EDILMA BROWNING DIRECTOR OF ROOMS Ot M54.5 LOW BACK PAIN 12/19/2017 EDILMA BROWNING DIRECTOR OF ROOMS Ot R26.89 OTHER ABNORMALITIES OF GAIT AND MOBILITY 12/21/2017 EDILMA BROWNING DIRECTOR OF ROOMS Ot M54.5 LOW BACK PAIN 12/21/2017 EDILMA BROWNING DIRECTOR OF ROOMS Ot R26.89 OTHER ABNORMALITIES OF GAIT AND MOBILITY 12/23/2017 EDILMA BROWNING APRN Ot M54.5 LOW BACK PAIN 12/23/2017 EDILMA BROWNING DIRECTOR OF ROOMS Ot R26.89 OTHER ABNORMALITIES OF GAIT AND MOBILITY 01/19/2018 EDILMA BROWNING DIRECTOR OF ROOMS Ot M54.5 LOW BACK PAIN 01/19/2018 NAM EDILMA Faye DIRECTOR OF ROOMS Ot R26.89 OTHER ABNORMALITIES OF GAIT AND MOBILITY 01/24/2018 KANDY OLIVEIRA MD Ot F41. 9 ANXIETY DISORDER, UNSPECIFIED 01/24/2018 KANDY OLIVEIRA MD Ot I10 ESSENTIAL (PRIMARY) HYPERTENSION 01/24/2018 KANDY OLIVEIRA MD Ot R19. 7 DIARRHEA, UNSPECIFIED 01/24/2018 KANDY OLIVEIRA MD Ot Z79. 01 STROKE COORDINATOR (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 OF ANTICOAGULANT 01/24/2018 KANDY OLIVEIRA MD Ot Z79. 02 STROKE COORDINATOR (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 OF ANTITHROMBOTI 01/24/2018 KANDY OLIVEIRA MD Ot Z79. 82 SENIOR CARE (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 OF ASPIRIN 01/24/2018 KANDY OLIVEIRA [...] SPECIFIED PART 01/24/2018 KANDY OLIVEIRA MD Ot Z90. 89 ACQUIRED ABSENCE OF OTHER ORGANS 01/27/2018 KANDY OLIVEIRA MD Ot F41. 9 ANXIETY DISORDER, UNSPECIFIED 01/27/2018 KANDY OLIVEIRA MD Ot I10 ESSENTIAL (PRIMARY) HYPERTENSION 01/27/2018 KANDY OLIVEIRA MD Ot R19. 7 DIARRHEA, UNSPECIFIED 01/27/2018 KANDY OLIVEIRA MD Ot Z79. 01 SENIOR CARE (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 OF ANTICOAGULANT 01/27/2018 KANDY OLIVEIRA MD Ot Z79. 02 STROKE COORDINATOR (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 OF ANTITHROMBOTI 01/27/2018 KANDY OLIVEIRA MD Ot Z79. 82 SENIOR CARE (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 OF ASPIRIN 01/27/2018 KANDY OLIVEIRA [...] EXAMINATION 02/28/2018 ERNESTO FRITZ MD Ot V72.81 [id number] CARDIOVASCULAR 02/28/2018 ERNESTO FRITZ MD Ot V72.83 [...] 02/28/2018 DOMI MARTINEZ MD Ot Z79.899 OTHER STROKE COORDINATOR (CURRENT) DRUG THERAPY 02/28/2018 DOMI MARTINEZ MD Ot Z87.891 PERSONAL HISTORY OF NICOTINE DEPENDENCE 02/28/2018 REJI WOODS, SALAS Katz Ot R19.7 DIARRHEA, UNSPECIFIED 03/01/2018 NIKOS MAZARIEGOSP Ot R19.7 DIARRHEA, UNSPECIFIED 03/01/2018 NIKOS MAZARIEGOSP Ot R63.5 ABNORMAL WEIGHT GAIN 03/02/2018 NIKOS MAZARIEGOS CITY CLERK Ot M41.86 OTHER FORMS OF SCOLIOSIS, LUMBAR REGION 03/02/2018 NIKOS MAZARIEGOS CITY CLERK Ot M43.16 SPONDYLOLISTHESIS, LUMBAR REGION 03/02/2018 NIKOS MAZARIEGOSP Ot M46.87 OTH INFLAMMATORY SPONDYLOPATHIES, LUMBOS 03/02/2018 NIKOS MAZARIEGOS CITY CLERK Ot M48.07 SPINAL STENOSIS, LUMBOSACRAL REGION 03/02/2018 NIKOS MAZARIEGOS [place] CLERK Ot M51.27 OTHER INTERVERTEBRAL DISC DISPLACEMENT, 03/02/2018 NIKOS MAZARIEGOS [place] CLERK Ot M51.36 OTHER INTERVERTEBRAL DISC DEGENERATION, 03/02/2018 NIKOS MAZARIEGOS CITY CLERK Ot R15.9 FULL INCONTINENCE OF FECES 03/10/2018 NIKOS MAZARIEGOS [place] CLERK Ot M41.86 OTHER FORMS OF SCOLIOSIS, LUMBAR REGION 03/10/2018 YAIRNIKOS [place] CLERK Ot M43.16 SPONDYLOLISTHESIS, LUMBAR REGION 03/10/2018 MAZARIEGOSNIKOS [place] CLERK Ot M46.87 OTH INFLAMMATORY SPONDYLOPATHIES, LUMBOS 03/10/2018 MA[place]ARIEGOSNIKOS [place] CLERK Ot M48.07 SPINAL STENOSIS, LUMBOSACRAL REGION 03/10/2018 NIKOS MAZARIEGOS [place] CLERK Ot M51.27 OTHER INTERVERTEBRAL DISC DISPLACEMENT, 03/10/2018 NIKOS MAZARIEGOS [place] CLERK Ot M51.36 OTHER INTERVERTEBRAL DISC DEGENERATION, 03/10/2018 NIKOS MAZARIEGOS [place] CLERK Ot R15.9 FULL INCONTINENCE OF FECES 03/10/2018 [place]IEGOSNIKOS [place] CLERK Ot R19.7 DIARRHEA, UNSPECIFIED 03/10/2018 [place]ARIEGOSNIKOS [place] CLERK Ot R63.5 ABNORMAL WEIGHT GAIN 05/01/2018 CATRINA [...] 05/01/2018 DOMI MARTINEZ MD Ot Z79.899 OTHER STROKE COORDINATOR (CURRENT) DRUG THERAPY 05/01/2018 DOMI MARTINEZ MD [...] OTHER INTERVERTEBRAL DISC DEGENERATION, 05/01/2018 NIKOS MAZARIEGOS [place] CLERK Ot R15.9 FULL INCONTINENCE OF FECES 05/01/2018 NIKOS MAZARIEGOS [place] CLERK Ot R19.7 DIARRHEA, UNSPECIFIED 05/01/2018 NIKOS MAZARIEGOS [place] CLERK Ot R63.5 ABNORMAL WEIGHT GAIN 05/01/2018 LAZARO [...] Ot M19.91 PRIMARY OSTEOARTHRITIS, UNSPECIFIED SITE 05/01/2018 LZAARO ALEXANDER SANDY Ot M54.9 DORSALGIA, UNSPECIFIED 05/01/2018 LAZARO ALEXANDER SANDY Ot M62.83 8 OTHER MUSCLE SPASM 05/01/2018 LAZARO ALEXANDER SANDY Ot M79.7 FIBROMYALGIA 05/01/2018 LAZARO ALEXANDER SANDY Ot N18.9 CHRONIC KIDNEY DISEASE, UNSPECIFIED 05/01/2018 LAZARO ALEXANDER SANDY Ot Q21.1 ATRIAL SEPTAL DEFECT 05/01/2018 LAZARO ALEXANDER SANDY Ot R29.70 5 NIHSS SCORE 5 05/01/2018 LAZARO ALEXANDER SANDY Ot Z79.01 STROKE COORDINATOR (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 OF ANTICOAGULANT 05/01/2018 SANDY WILLIS [...] OCCLUSION AND STENOSIS OF BILATERAL [place] 05/01/2018 EWDIN WILLIS DOI Ot I69.39 2 FACIAL WEAKNESS [...] 5 05/01/2018 SANDY WILLIS DO Ot Z79.01 SENIOR CARE (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 OF ANTICOAGULANT 05/01/2018 SANDY WILLIS [...] 5 05/01/2018 SANDY WILLIS DO Ot Z79.01 SENIOR CARE (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 OF ANTICOAGULANT 05/01/2018 SANDY WILLIS [...] 5 05/02/2018 SANDY WILLIS DO Ot Z79.01 STROKE COORDINATOR (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 OF ANTICOAGULANT 05/02/2018 SANDY WILLIS [...] Ot H40.9 UNSPECIFIED GLAUCOMA 05/03/2018 LAZARO ALEXANDER ASNDY Ot I10 ESSENTIAL (PRIMARY) HYPERTENSION 05/03/2018 LAZARO [...] INCONTINENCE 05/03/2018 EDWIN WILLIS DOI Ot Z79.01 STROKE COORDINATOR (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 OF ANTICOAGULANT 05/03/2018 SANDY WILLIS [...] CHRONIC KIDNEY DISEASE, UNSPECIFIED 05/05/2018 WILLIS DO SADNY Ot R32 UNSPECIFIED URINARY INCONTINENCE 05/05/2018 LAZARO DO SANDY Ot Z79.01 STROKE COORDINATOR (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 OF ANTICOAGULANT 05/05/2018 LAZARO ALEXANDER [...] DIAPHRAGMATIC HERNIA WITHOUT OBSTRUCTION 05/08/2018 LAZARO DO SADNY Ot M06.9 RHEUMATOID ARTHRITIS, UNSPECIFIED 05/08/2018 WILLIS DO SANDY Ot M19.90 UNSPECIFIED OSTEOARTHRITIS, UNSPECIFIED 05/08/2018 LAZARO DO SANDY Ot N18.9 CHRONIC KIDNEY DISEASE, UNSPECIFIED 05/08/2018 WILLIS DO SANDY Ot R32 UNSPECIFIED URINARY INCONTINENCE 05/08/2018 LAZARO ALEXANDER SANDY Ot Z79.01 SENIOR CARE (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 OF ANTICOAGULANT 05/08/2018 LAZARO ALEXANDER [...] INCONTINENCE 05/08/2018 LAZARO ALEXANDER SANDY Ot Z79.01 SENIOR CARE (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 OF ANTICOAGULANT 05/08/2018 LAZARO ALEXANDER [...] INCONTINENCE 05/09/2018 WILLIS DO SANDY Ot Z79.01 SENIOR CARE (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 OF ANTICOAGULANT 05/09/2018 LAZARO ALEXANDER [...] INCONTINENCE 05/15/2018 LAZARO ALEXANDER SANDY Ot Z79.01 STROKE COORDINATOR (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 OF ANTICOAGULANT 05/15/2018 LAZARO ALEXANDER [...] DIAPHRAGMATIC HERNIA WITHOUT OBSTRUCTION 05/18/2018 WILLIS DO SADNY Ot M06.9 RHEUMATOID ARTHRITIS, UNSPECIFIED 05/18/2018 WILLIS [...] SYNDROME 05/18/2018 WILLISSUNI ALEXANDER SANDY Ot Z79.01 SENIOR CARE (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 OF ANTICOAGULANT 05/18/2018 WILLISSUNI ALEXANDER [...] 06/14/2018 DOMI MARTINEZ MD Ot Z79.899 OTHER SENIOR CARE (CURRENT) DRUG THERAPY 06/14/2018 DOMI MARTINEZ MD [...] INCONTINENCE OF FECES 06/14/2018 MAZARIEGOS, NIKOS M CITY CLERK Ot R19.7 DIARRHEA, UNSPECIFIED 06/14/2018 NIKOS MAZARIEGOS CITY CLERK Ot R63.5 ABNORMAL WEIGHT GAIN 06/15/2018 TANISHA [place] CLERK Ot E16.2 HYPOGLYCEMIA, UNSPECIFIED 06/20/2018 MAYURI GARAY [place] CLERK Ot E16.2 HYPOGLYCEMIA, UNSPECIFIED 07/17/2018 CATRINA WOODS, [...] 07/17/2018 DOMI MARTINEZ MD Ot Z79.899 OTHER STROKE COORDINATOR (CURRENT) DRUG THERAPY 07/17/2018 DOMI MARTINEZ MD Ot Z87.891 PERSONAL HISTORY OF NICOTINE DEPENDENCE 07/17/2018 REJI WOODS, SALAS Katz Ot R19.7 DIARRHEA, UNSPECIFIED 07/17/2018 NIKOS MAZARIEGOS [place] CLERK Ot M41.86 OTHER FORMS OF SCOLIOSIS, LUMBAR REGION 07/17/2018 NIKOS MAZARIEGOS [place] CLERK Ot M43.16 SPONDYLOLISTHESIS, LUMBAR REGION 07/17/2018 NIKOS MAZARIEGOS [place] CLERK Ot M46.87 OTH INFLAMMATORY SPONDYLOPATHIES, LUMBOS 07/17/2018 NIKOS MAZARIEGOS [place] CLERK Ot M48.07 SPINAL STENOSIS, LUMBOSACRAL REGION 07/17/2018 NIKOS MAZARIEGOS [place] CLERK Ot M51.27 OTHER INTERVERTEBRAL DISC DISPLACEMENT, 07/17/2018 NIKOS MAZARIEGOS [place] CLERK Ot M51.36 OTHER INTERVERTEBRAL DISC DEGENERATION, 07/17/2018 NIKOS MAZARIEGOS [place] CLERK Ot R15.9 FULL INCONTINENCE OF FECES 07/17/2018 NIKOS MAZARIEGOS [place] CLERK Ot R19.7 DIARRHEA, UNSPECIFIED 07/17/2018 NIKOS MAZARIEGOS [place] CLERK Ot R63.5 ABNORMAL WEIGHT GAIN 07/17/2018 MAYURI GARAY [place] CLERK Ot E16.2 HYPOGLYCEMIA, UNSPECIFIED 07/19/2018 KENZIE COOPER [...] NARCOT 07/19/2018 KENZIE COOPER MD, Ot Z79.01 STROKE COORDINATOR (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 OF ANTICOAGULANT 07/19/2018 KENZIE COOPER MD, Ot Z79.82 STROKE COORDINATOR (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 OF ASPIRIN 07/19/2018 KENZIE COOPER [...] NARCOT 07/19/2018 KENZIE COOPER MD Ot Z79.01 SENIOR CARE (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 OF ANTICOAGULANT 07/19/2018 KENZIE COOPER MD Ot Z79.82 SENIOR CARE (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 OF ASPIRIN 07/19/2018 KENZIE COOPER [...] 08/31/2018 DOMI MARTINEZ MD Ot Z79.899 OTHER SENIOR CARE (CURRENT) DRUG THERAPY 08/31/2018 DOMI MARTINEZ MD Ot Z87.891 PERSONAL HISTORY OF NICOTINE DEPENDENCE 08/31/2018 REJI WOODS, SALAS Katz Ot R19.7 DIARRHEA, UNSPECIFIED 08/31/2018 MAZARIEGOS, NIKOS M CITY CLERK Ot M41.86 OTHER FORMS OF SCOLIOSIS, LUMBAR REGION 08/31/2018 YAIR NIKOS M CITY CLERK Ot M43.16 SPONDYLOLISTHESIS, LUMBAR REGION 08/31/2018 NIKOS MAZARIEGOS [place] CLERK Ot M46.87 OTH INFLAMMATORY SPONDYLOPATHIES, LUMBOS 08/31/2018 NIKOS MAZARIEGOS [place] CLERK Ot M48.07 SPINAL STENOSIS, LUMBOSACRAL REGION 08/31/2018 NIKOS MAZARIEGOS [place] CLERK Ot M51.27 OTHER INTERVERTEBRAL DISC DISPLACEMENT, 08/31/2018 YAIR NIKOS M CITY CLERK Ot M51.36 OTHER INTERVERTEBRAL DISC DEGENERATION, 08/31/2018 YAIR NIKOS M CITY CLERK Ot R15.9 FULL INCONTINENCE OF FECES 08/31/2018 NIKOS MAZAIREGOS [place] CLERK Ot R19.7 DIARRHEA, UNSPECIFIED 08/31/2018 NIKOS MAZARIEGOS CITY CLERK Ot R63.5 ABNORMAL WEIGHT GAIN 08/31/2018 MAYURI GARAYP Ot E16.2 HYPOGLYCEMIA, UNSPECIFIED 08/31/2018 BAMBI WOODS, JUHI Ponce Ot I69.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 09/21/2018 DOE WOODS, ROZ Tnieo Ot D64.9 ANEMIA, UNSPECIFIED 09/21/2018 DOE WOODS, [...] 09/21/2018 DOE WOODS, ROZ Tineo Ot Z79.01 STROKE COORDINATOR (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 OF ANTICOAGULANT 09/21/2018 ROZ AZAR MD, Ot Z79.82 SENIOR CARE (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 OF ASPIRIN 09/21/2018 ROZ AZAR [...] UNSPECIFIED 09/26/2018 ROZ AZAR MD, Ot Z79.01 STROKE COORDINATOR (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 OF ANTICOAGULANT 09/26/2018 ROZ AZAR MD, Ot Z79.82 SENIOR CARE (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 OF ASPIRIN 09/26/2018 ROZ AZAR [...] 10/20/2018 DOMI MARTINEZ MD Ot Z79.899 OTHER SENIOR CARE (CURRENT) DRUG THERAPY 10/20/2018 DOMI MARTINEZ MD, Ot Z87.891 PERSONAL HISTORY OF NICOTINE DEPENDENCE 10/20/2018 REJI WOODS, SALAS Katz Ot R19.7 DIARRHEA, UNSPECIFIED 10/20/2018 NIKOS MAZARIEGOSP Ot M41.86 OTHER FORMS OF SCOLIOSIS, LUMBAR REGION 10/20/2018 NIKOS MAZARIEGOS [place] CLERK Ot M43.16 SPONDYLOLISTHESIS, LUMBAR REGION 10/20/2018 NIKOS MAZARIEGOSP Ot M46.87 OTH INFLAMMATORY SPONDYLOPATHIES, LUMBOS 10/20/2018 NIKOS MAZARIEGOSP Ot M48.07 SPINAL STENOSIS, LUMBOSACRAL REGION 10/20/2018 NIKOS MAZARIEGOS [place] CLERK Ot M51.27 OTHER INTERVERTEBRAL DISC DISPLACEMENT, 10/20/2018 NIKOS MAZARIEGOS [place] CLERK Ot M51.36 OTHER INTERVERTEBRAL DISC DEGENERATION, 10/20/2018 NIKOS MAZARIEGOS [place] CLERK Ot R15.9 FULL INCONTINENCE OF FECES 10/20/2018 NIKOS MAZARIEGOS [place] CLERK Ot R19.7 DIARRHEA, UNSPECIFIED 10/20/2018 NIKOS MAZARIEGOSP [...] 10/20/2018 DOMI MARTINEZ MD Ot Z79.899 OTHER STROKE COORDINATOR (CURRENT) DRUG THERAPY 10/20/2018 DOMI MARTINEZ MD Ot Z87.891 PERSONAL HISTORY OF NICOTINE DEPENDENCE 10/20/2018 REJI WOODS, SALAS Katz Ot R19.7 DIARRHEA, UNSPECIFIED 10/20/2018 NIKOS MAZARIEGOS Ot M41.86 OTHER FORMS OF SCOLIOSIS, LUMBAR REGION 10/20/2018 NIKOS MAZARIEGOS [place] CLERK Ot M43.16 SPONDYLOLISTHESIS, LUMBAR REGION 10/20/2018 NIKOS MAZARIEGOS [place] CLERK Ot M46.87 OTH INFLAMMATORY SPONDYLOPATHIES, LUMBOS 10/20/2018 NIKOS MAZARIEGOS [place] CLERK Ot M48.07 SPINAL STENOSIS, LUMBOSACRAL REGION 10/20/2018 MAZARIEGOSNIKOS [place] CLERK Ot M51.27 OTHER INTERVERTEBRAL DISC DISPLACEMENT, 10/20/2018 MAZARIEGOSNIKOS [place] CLERK Ot M51.36 OTHER INTERVERTEBRAL DISC DEGENERATION, 10/20/2018 MAZARIEGOSNIKOS [place] CLERK Ot R15.9 FULL INCONTINENCE OF FECES 10/20/2018 NIKOS MAZARIEGOS [place] CLERK Ot R19.7 DIARRHEA, UNSPECIFIED 10/20/2018 NIKOS MAZARIEGOS [place] CLERK Ot R63.5 ABNORMAL WEIGHT GAIN 10/20/2018 MAYURI GARAY [place] CLERK Ot E16.2 HYPOGLYCEMIA, UNSPECIFIED 10/20/2018 BAMBI WOODS, [...] 10/20/2018 TEMITOPE PATRICIA ALEXANDERA K Ot Z79.01 STROKE COORDINATOR (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 OF ANTICOAGULANT 10/20/2018 TEMITOPE ALEXANDERBOBO Ot Z79.82 STROKE COORDINATOR (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 OF ASPIRIN 10/20/2018 BOBO LINN [...] WEAKNESS 10/24/2018 BOBO LINN DO Ot Z79.01 STROKE COORDINATOR (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 OF ANTICOAGULANT 10/24/2018 BOBO LINN DO Ot Z79.82 STROKE COORDINATOR (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 OF ASPIRIN 10/24/2018 BOBO LINN [...] LAZARO ALEXANDER SANDY Ot Z79.89 9 OTHER SENIOR CARE (CURRENT) DRUG THERAPY 01/02/2019 EDWIN WILLIS DOI [...] LAZARO ALEXANDER SANDY Ot Z79.89 9 OTHER SENIOR CARE (CURRENT) DRUG THERAPY 01/02/2019 EDWIN WILLIS DOI [...] LAZARO ALEXANDER SANDY Ot Z79.89 9 OTHER STROKE COORDINATOR (CURRENT) DRUG THERAPY 01/10/2019 EDWIN WILLIS DOI [...] OTHER SPECIFIED ANXIETY DISORDERS 01/10/2019 LAZARO ALEXANDER SNADY Ot I11.9 HYPERTENSIVE HEART DISEASE WITHOUT HEART [...] LAZARO ALEXANDER SANDY Ot Z79.89 9 OTHER STROKE COORDINATOR (CURRENT) DRUG THERAPY 01/10/2019 WILLIS SANDY ALEXANDER [...] MD, Ot I25.10 ATHSCL HEART DISEASE OF [place] CORONARY 03/27/2019 KENZIE COOPER MD, Ot I48 [...] ENCOUNTER 03/27/2019 KENZIE COOPER MD, Ot Z79.01 SENIOR CARE (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 OF ANTICOAGULANT 03/27/2019 KENZIE COOPER MD, Ot Z79.82 STROKE COORDINATOR (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 OF ASPIRIN 03/27/2019 KENZIE COOPER MD, Ot Z79.891 SENIOR CARE (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 OF OPIATE ANALGE 03/27/2019 KENZIE COOPER MD, Ot Z79.899 OTHER STROKE COORDINATOR (CURRENT) DRUG THERAPY 03/27/2019 KENZIE COOPER MD, [...] MD, Ot I25.10 ATHSCL HEART DISEASE OF [place] CORONARY 03/27/2019 KENZIE COOPER MD, Ot I48 [...] ENCOUNTER 03/27/2019 KENZIE COOPER MD, Ot Z79.01 STROKE COORDINATOR (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 OF ANTICOAGULANT 03/27/2019 KENZIE COOPER MD, Ot Z79.82 SENIOR CARE (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 OF ASPIRIN 03/27/2019 KENZIE COOPER MD, Ot Z79.891 SENIOR CARE (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 OF OPIATE ANALGE 03/27/2019 KENZIE COOPER MD, Ot Z79.899 OTHER SENIOR CARE (CURRENT) DRUG THERAPY 03/27/2019 KENZIE COOPER MD, [...] MD, Ot Z88 .8 ALLERGY STATUS TO [facility] DRUG/MEDS/BIOL SUB 03/29/2019 TEMITOPE DO, BOBO K Ot E78.00 PURE HYPERCHOLESTEROLEMIA, UNSPECIFIED 03/29/2019 TEMITOPE DO, BOBO K Ot F32.9 MAJOR DEPRESSIVE DISORDER, SINGLE EPISOD 03/29/2019 TEMITOPE DO, BOBO K Ot F41.9 ANXIETY DISORDER, UNSPECIFIED 03/29/2019 TEMITOPE DO, BOBO K Ot H53.8 OTHER VISUAL DISTURBANCES 03/29/2019 TEMITOPE DO BOBO K Ot I10 ESSENTIAL (PRIMARY) HYPERTENSION 03/29/2019 TEMITOPE DO, BOBO K Ot I25.10 ATHSCL HEART DISEASE OF [place] CORONARY 03/29/2019 TEMITOPE DO, BOBO K Ot [...] 03/29/2019 TEMITOPE DO BOBO K Ot Z79.01 SENIOR CARE (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 OF ANTICOAGULANT 03/29/2019 TEMITOPE DO BOBO K Ot Z79.82 SENIOR CARE (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 OF ASPIRIN 03/29/2019 TEMITOPE DO BOBO K Ot Z80.3 FAMILY HISTORY OF MALIGNANT NEOPLASM OF 03/29/2019 TEMITOPE DOPATRICIAA K Ot Z82.49 FAMILY HX OF ISCHEM HEART DIS AND OTH DI 03/29/2019 TEMITOPE DOPATRICIAA K Ot Z86.73 PRSNL HX OF TIA (TIA), AND CEREB INFRC W 03/29/2019 TEMITOPE DO, BOBO Ericka Ot Z87.891 PERSONAL HISTORY OF NICOTINE DEPENDENCE 03/29/2019 [facility].5 ALLERGY STATUS TO [...] K Ot H53.8 OTHER VISUAL DISTURBANCES 04/03/2019 DUVALL DOPATRICIAA K Ot I10 ESSENTIAL (PRIMARY) HYPERTENSION 04/03/2019 TEMITOPE DO, BOBO K Ot I25.10 ATHSCL HEART DISEASE OF [place] CORONARY 04/03/2019 DUVALL DOPATRICIAA K Ot I48.0 PAROXYSMAL ATRIAL FIBRILLATION 04/03/2019 DUVALL DO, BOBO K Ot I73.9 PERIPHERAL VASCULAR DISEASE, UNSPECIFIED 04/03/2019 TEMITOPE DO, BOBO K Ot K21.9 GASTRO-ESOPHAGEAL REFLUX DISEASE WITHOUT 04/03/2019 TEMITOPE DO BOBO K Ot M06.9 RHEUMATOID ARTHRITIS, UNSPECIFIED 04/03/2019 TEIMTOPE DOPATRICIAA K Ot M79.7 FIBROMYALGIA 04/03/2019 TEMITOPE DOPATRICIAA K Ot R53.1 WEAKNESS 04/03/2019 TEMITOPE DO BOBO K Ot Z79.01 SENIOR CARE (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 OF ANTICOAGULANT 04/03/2019 DUVALL DOPATRICIAA K Ot Z79.82 SENIOR CARE (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 OF ASPIRIN 04/03/2019 TEMITOPE DO BOBO K Ot Z80.3 FAMILY HISTORY OF MALIGNANT NEOPLASM OF 04/03/2019 DUVALL DOPATRICIAA K Ot Z82.49 FAMILY HX OF ISCHEM HEART DIS AND OTH DI 04/03/2019 TEMITOPE DOBOBO Ot Z86.73 PRSNL HX OF TIA (TIA), AND CEREB INFRC W 04/03/2019 TEMITOPE DO, BOBO Barnett Ot Z87.891 PERSONAL HISTORY OF NICOTINE DEPENDENCE 04/03/2019 DUVALL DO, BOBO Barnett Ot Z88.5 ALLERGY STATUS TO NARCOTIC AGENT STATUS 04/03/2019 TEMITOPE DO, BOBO Ericka Ot Z88.8 ALLERGY STATUS TO OTH DRUG/MEDS/BIOL SUB 04/03/2019 DUVALL DOPATRICIAA Ericka Ot Z90.49 ACQUIRED ABSENCE OF OTHER SPECIFIED PART 04/03/2019 DUVALL DO, BOBO Ericka Ot Z90.89 ACQUIRED ABSENCE OF OTHER ORGANS 04/05/2019 DUVALL DO, BOBO Barnett Ot E78.00 PURE HYPERCHOLESTEROLEMIA, UNSPECIFIED 04/05/2019 DUVALL DO, BOBO Ericka Ot F32.9 MAJOR DEPRESSIVE DISORDER, SINGLE EPISOD 04/05/2019 DUVALL DO, BOBO Ericka Ot F41.9 ANXIETY DISORDER, UNSPECIFIED 04/05/2019 DUVALL DO, BOBO Ericka Ot H53.8 OTHER VISUAL DISTURBANCES 04/05/2019 DUVALL DO, BOBO K Ot I10 ESSENTIAL (PRIMARY) HYPERTENSION 04/05/2019 [facility], BOBO K Ot I25.10 ATHSCL HEART DISEASE OF [place] CORONARY 04/05/2019 [facility] Ericka Ot I48.0 PAROXYSMAL ATRIAL FIBRILLATION 04/05/2019 [facility], BOBO K Ot I73.9 PERIPHERAL VASCULAR DISEASE, UNSPECIFIED 04/05/2019 [facility] Ot K21.9 GASTRO-ESOPHAGEAL REFLUX DISEASE WITHOUT 04/05/2019 DUVALL DOPATRICIAA K Ot M06.9 RHEUMATOID ARTHRITIS, UNSPECIFIED 04/05/2019 DUVALL DOPATRICIAA K Ot M79.7 FIBROMYALGIA 04/05/2019 DUVALL DOPATRICIAA K Ot R53.1 WEAKNESS 04/05/2019 DUVALL DOPATRICIAA K Ot Z79.01 STROKE COORDINATOR (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 OF ANTICOAGULANT 04/05/2019 DUVALL DOPATRICIAA K Ot Z79.82 SENIOR CARE (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 OF ASPIRIN 04/05/2019 DUVALL DOPATRICIAA K Ot Z80.3 FAMILY HISTORY OF MALIGNANT NEOPLASM OF 04/05/2019 [facility] Ericka Ot Z82.49 FAMILY HX [...] INFARCTION, UNSPECIFIED 07/18/2019 DOMI MARTINEZ MD Ot I73. 9 PERIPHERAL [...] 07/18/2019 DOMI MARTINEZ MD Ot Z79.899 OTHER SENIOR CARE (CURRENT) DRUG THERAPY 07/18/2019 DOMI MARTINEZ MD Ot Z87.891 PERSONAL HISTORY OF NICOTINE DEPENDENCE 07/18/2019 REJI WOODS, SALAS Katz Ot R19.7 DIARRHEA, UNSPECIFIED 07/18/2019 NIKOS MAZARIEGOS Ot M41.86 OTHER FORMS OF SCOLIOSIS, LUMBAR REGION 07/18/2019 MAZARIEGOS, NIKOS M CITY CLERK Ot M43.16 SPONDYLOLISTHESIS, LUMBAR REGION 07/18/2019 NIKOS MAZARIEGOS CITY CLERK Ot M46.87 OTH INFLAMMATORY SPONDYLOPATHIES, LUMBOS 07/18/2019 NIKOS MAZARIEGOS CITY CLERK Ot M48.07 SPINAL STENOSIS, LUMBOSACRAL REGION 07/18/2019 NIKOS MAZARIEGOS [employer] CLERK Ot M51.27 OTHER INTERVERTEBRAL DISC DISPLACEMENT, 07/18/2019 NIKOS MAZARIEGOS [employer] CLERK Ot M51.36 OTHER INTERVERTEBRAL DISC DEGENERATION, 07/18/2019 NIKOS MAZARIEGOS [employer] CLERK Ot R15.9 FULL INCONTINENCE OF FECES 07/18/2019 NIKOS MAZARIEGOS [employer] CLERK Ot R19.7 DIARRHEA, UNSPECIFIED 07/18/2019 NIKOS MAZARIEGOS [employer] CLERK Ot R63.5 ABNORMAL WEIGHT GAIN 07/18/2019 TANISHAMAYURI LINARES [place] CLERK Ot E16.2 HYPOGLYCEMIA, UNSPECIFIED 08/01/2019 KARAN DODARIO Ot 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, NOT ELSEW 08/01/2019 KARAN DODARIO Ot E53.8 DEFICIENCY OF OTHER SPECIFIED B GROUP 08/01/2019 KARAN DODARIO Ot I12.9 HYPERTENSIVE CHRONIC KIDNEY DISEASE W ST 08/01/2019 KARAN DODARIO Ot N17.8 OTHER ACUTE KIDNEY FAILURE 08/01/2019 KARAN DODARIO Ot N18.3 CHRONIC KIDNEY DISEASE, STAGE 3 (MODERAT 08/01/2019 KARAN DOMAYURE Faye Ot N26.1 ATROPHY OF KIDNEY (TERMINAL) 08/10/2019 DOMI MARTINEZ MD Ot E78. 5 HYPERLIPIDEMIA, UNSPECIFIED 08/10/2019 DOMI MARTINEZ MD Ot I10 ESSENTIAL (PRIMARY) HYPERTENSION 08/10/2019 DOMI MARTINEZ MD Ot I63. 9 CEREBRAL INFARCTION, UNSPECIFIED 08/10/2019 DOMI MARTINEZ MD Ot I73. 9 PERIPHERAL VASCULAR DISEASE, UNSPECIFIED 08/10/2019 TELLO WILKINSON MD Ot I12.9 HYPERTENSIVE CHRONIC KIDNEY DISEASE W ST 08/10/2019 TELLO WILKINSON MD Ot N18.9 CHRONIC KIDNEY DISEASE, UNSPECIFIED 08/10/2019 DOMI MARTINEZ MD Ot E78. 5 HYPERLIPIDEMIA, UNSPECIFIED 08/10/2019 DOMI MARTINEZ MD Ot F32. 9 MAJOR DEPRESSIVE DISORDER, SINGLE EPISOD 08/10/2019 DOMI MARTINEZ MD Ot I10 ESSENTIAL (PRIMARY) HYPERTENSION 08/10/2019 DOMI MARTINEZ MD Ot I63. 9 CEREBRAL INFARCTION, UNSPECIFIED 08/10/2019 DOMI MARTINEZ MD Ot I65. 23 OCCLUSION AND STENOSIS OF BILATERAL [place] 08/10/2019 DOMI MARTINEZ MD Ot Z79.899 OTHER STROKE COORDINATOR (CURRENT) DRUG THERAPY 08/10/2019 DOMI MARTINEZ MD, Ot Z87.891 PERSONAL HISTORY OF NICOTINE DEPENDENCE 08/10/2019 REJI WOODS, SALAS Katz Ot R19.7 DIARRHEA, UNSPECIFIED 08/10/2019 NIKOS [place] CLERK Ot M41.86 OTHER FORMS OF SCOLIOSIS, LUMBAR REGION 08/10/2019 NIKOS MAZARIEGOSP Ot M43.16 SPONDYLOLISTHESIS, LUMBAR REGION 08/10/2019 NIKOS MAZARIEGOSP Ot M46.87 OTH INFLAMMATORY SPONDYLOPATHIES, LUMBOS 08/10/2019 NIKOS [place] CLERK Ot M48.07 SPINAL STENOSIS, LUMBOSACRAL REGION 08/10/2019 NIKOS [place] CLERK Ot M51.27 OTHER INTERVERTEBRAL DISC DISPLACEMENT, 08/10/2019 NIKOS [place] CLERK Ot M51.36 OTHER INTERVERTEBRAL DISC DEGENERATION, 08/10/2019 NIKOS [place] CLERK Ot R15.9 FULL INCONTINENCE OF FECES 08/10/2019 NIKOS MAZARIEGOSP Ot R19.7 DIARRHEA, UNSPECIFIED 08/10/2019 NIKOS MAZARIEGOSP Ot R63.5 ABNORMAL WEIGHT GAIN 08/10/2019 MAYURI GARAYP Ot E16.2 HYPOGLYCEMIA, UNSPECIFIED 08/10/2019 DARIO RUSSO DO Ot 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, NOT ELSEW 08/10/2019 DARIO RUSSO DO Ot E53.8 DEFICIENCY OF OTHER SPECIFIED B GROUP 08/10/2019 DARIO RUSSO DO Ot I12.9 HYPERTENSIVE CHRONIC KIDNEY DISEASE W ST 08/10/2019 DARIO RUSSO DO Ot N17.8 OTHER ACUTE KIDNEY FAILURE 08/10/2019 KARAN DO, DARIO M Ot N18.3 CHRONIC KIDNEY DISEASE, STAGE 3 (MODERAT 08/10/2019 KARAN ALEXANDERDARIO Ot N26.1 ATROPHY OF KIDNEY (TERMINAL) 08/10/2019 DOMI MARTINEZ MD Ot E78. 5 HYPERLIPIDEMIA, UNSPECIFIED 08/10/2019 DOMI MARTINEZ MD Ot I10 ESSENTIAL (PRIMARY) HYPERTENSION 08/10/2019 DOMI MARTINEZ MD Ot I63. 9 CEREBRAL INFARCTION, UNSPECIFIED 08/10/2019 DOMI MARTINEZ MD Ot I73. 9 PERIPHERAL VASCULAR DISEASE, UNSPECIFIED 08/10/2019 MINH WOODS, TELLO Razo Ot I12.9 HYPERTENSIVE CHRONIC KIDNEY DISEASE W ST 08/10/2019 MINH WOODS, TELLO Razo Ot N18.9 CHRONIC KIDNEY DISEASE, UNSPECIFIED 08/10/2019 DOMI MARTINEZ MD Ot E78. 5 HYPERLIPIDEMIA, UNSPECIFIED 08/10/2019 DOMI MARTINEZ MD Ot F32. 9 MAJOR DEPRESSIVE DISORDER, SINGLE EPISOD 08/10/2019 DOMI MARTINEZ MD Ot I10 ESSENTIAL (PRIMARY) HYPERTENSION 08/10/2019 DOMI MARTINEZ MD Ot I63. 9 CEREBRAL INFARCTION, UNSPECIFIED 08/10/2019 DOMI MARTINEZ MD Ot I65. 23 OCCLUSION AND STENOSIS OF BILATERAL SENA 08/10/2019 DOMI MARTINEZ MD Ot Z79.899 OTHER SENIOR CARE (CURRENT) DRUG THERAPY 08/10/2019 DOMI MARTINEZ MD Ot Z87.891 PERSONAL HISTORY OF NICOTINE DEPENDENCE 08/10/2019 REIJ WOODS, SALAS Katz Ot R19.7 DIARRHEA, UNSPECIFIED 08/10/2019 NIKOS MAZARIEGOSP Ot M41.86 OTHER FORMS OF SCOLIOSIS, LUMBAR REGION 08/10/2019 NIKOS MAZARIEGOSP Ot M43.16 SPONDYLOLISTHESIS, LUMBAR REGION 08/10/2019 NIKOS MAZARIEGOSP Ot M46.87 OTH INFLAMMATORY SPONDYLOPATHIES, LUMBOS 08/10/2019 NIKOS MAZARIEGOSP Ot M48.07 SPINAL STENOSIS, LUMBOSACRAL REGION 08/10/2019 NIKOS [place] CLERK Ot M51.27 OTHER INTERVERTEBRAL DISC DISPLACEMENT, 08/10/2019 NIKOS MAZARIEGOSP Ot M51.36 OTHER INTERVERTEBRAL DISC DEGENERATION, 08/10/2019 [place] CITY CLERK Ot R15.9 FULL INCONTINENCE OF FECES 08/10/2019 YAIR NIKOS [place] CITY CLERK Ot R19.7 DIARRHEA, UNSPECIFIED 08/10/2019 YAIR NIKOS [place] CITY CLERK Ot R63.5 ABNORMAL WEIGHT GAIN 08/10/2019 MAYURI GARAY CITY CLERK Ot E16.2 HYPOGLYCEMIA, UNSPECIFIED 08/10/2019 KARAN DO, DRAIO Mckinney Ot 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, NOT ELSEW 08/10/2019 KARAN DO, DARIO Mckinney Ot E53.8 DEFICIENCY OF OTHER SPECIFIED B GROUP 08/10/2019 KARAN DO, DARIO Mckinney Ot I12.9 HYPERTENSIVE CHRONIC KIDNEY DISEASE W ST 08/10/2019 KARAN DO, DARIO Mckinney Ot N17.8 OTHER ACUTE KIDNEY FAILURE 08/10/2019 [facility] DO, DARIO Mckinney Ot N18.3 CHRONIC KIDNEY DISEASE, STAGE 3 (MODERAT 08/10/2019 [facility] DO, DARIO Mckinney Ot N26.1 ATROPHY OF KIDNEY (TERMINAL) 08/10/2019 ANNY MERA MD Ot E78.00 PURE HYPERCHOLESTEROLEMIA, UNSPECIFIED 08/10/2019 ANNY MERA MD Ot F19.239 OTH PSYCHOACTIVE SUBSTANCE DEPENDENCE WI 08/10/2019 ANNY MERA MD Ot F32.9 MAJOR DEPRESSIVE DISORDER, SINGLE EPISOD 08/10/2019 ANNY MERA MD Ot F41.9 ANXIETY DISORDER, UNSPECIFIED 08/10/2019 ANNY MERA MD Ot I12.9 HYPERTENSIVE CHRONIC KIDNEY DISEASE W ST 08/10/2019 ANNY MERA MD Ot I25.10 ATHSCL HEART DISEASE OF [place] CORONARY 08/10/2019 ANNY MERA MD Ot I48.91 UNSPECIFIED ATRIAL FIBRILLATION 08/10/2019 ANNY MERA MD Ot I73.9 PERIPHERAL VASCULAR DISEASE, UNSPECIFIED 08/10/2019 ANNY MERA MD Ot K21.9 GASTRO-ESOPHAGEAL REFLUX DISEASE WITHOUT 08/10/2019 ANNY MERA MD Ot M06.9 RHEUMATOID ARTHRITIS, UNSPECIFIED 08/10/2019 ANNY MERA MD Ot M79.7 FIBROMYALGIA 08/10/2019 ANNY MERA MD Ot N18.9 CHRONIC KIDNEY DISEASE, UNSPECIFIED 08/10/2019 ANNY MERA MD, Ot R56.9 UNSPECIFIED CONVULSIONS 08/10/2019 ANNY MERA MD, Ot Z79.82 STROKE COORDINATOR (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 OF ASPIRIN 08/10/2019 ANNY MERA MD, Ot Z80.3 FAMILY HISTORY OF MALIGNANT NEOPLASM OF 08/10/2019 ANNY MERA MD, Ot Z82.49 FAMILY HX OF ISCHEM HEART DIS AND OTH DI 08/10/2019 ANNY MERA MD, Ot Z86.010 PERSONAL HISTORY OF COLONIC POLYPS 08/10/2019 ANNY MERA MD, Ot Z86.73 PRSNL HX OF TIA (TIA), AND CEREB INFRC W 08/10/2019 ANNY MERA MD, Ot Z88.8 ALLERGY STATUS TO [facility] DRUG/MEDS/BIOL SUB 08/10/2019 ANNY MERA MD, Ot Z91.14 PATIENT'S OTHER NONCOMPLIANCE WITH MEDIC 08/14/2019 DARIO RUSSO DO, Ot 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, NOT ELSEW 08/14/2019 DARIO RUSSO DO, Ot E53.8 DEFICIENCY OF OTHER SPECIFIED B GROUP 08/14/2019 KARANDARIO BURNETT DO, Ot I12.9 HYPERTENSIVE CHRONIC KIDNEY DISEASE W ST 08/14/2019 DARIO RUSSO DO, Ot N17.8 OTHER ACUTE KIDNEY FAILURE 08/14/2019 DARIO RUSSO DO, Ot N18.3 CHRONIC KIDNEY DISEASE, STAGE 3 (MODERAT 08/14/2019 [facility] DARIO ALEXANDER Ot R93.421 ABNORMAL RADIOLOGIC FINDINGS ON DX IMAGI Procedures Code Description Performed By Per formed On 45.16 ESOP HAGOGASTRODUODENOSCOPY [EGD] W/CLOSE 01/03/2009 45.23 COLO NOSCOPY 01/03/2009 45.13 OTHE R ENDOSCOPY OF SM INTEST 01/15/[address]/INFUSE THROMBOLYTIC AGENT 03/20/2014 [id number] IN TRODUCE OTH THROMBOLYTIC IN PERIPH VEI [...] culture - 05/07/18 20:15 Bacterial urine culture [id number] NRG COLONY COUNT >100,000/ML NRG FTX;REPORTABLE SENSITIVITY [...] mg/dL 8.5-10.1 Automated blood complete blood count (he mogram) panel - 05/17/18 17:46 Blood leukocytes [...] total iron binding capaci ty panel - 07/04/19 07:50 TIBC 299 % 280-380 Serum or [...] 7-25 CREATININE 1.73 mg/dL 0.60-0.93 eGFR NON-AFR. URUGUAYAN 29 mL/min/1.73m2 > OR = 60 eGFR [...] - 08/10/19 17:30 Magnesium 2.9 mg/dL 1.6-2.4 Complete urinalysis with reflex to cultu re - 08/10/19 18:39 Urine color determination YELLOW NRG Urine clarity [...] detection in urine sediment by light microscopy PRESENT NRG Mucus detection in urine sediment by light microscopy SMALL NRG Complete urinalysis with reflex to culture NO NRG Hyaline casts detection in urine sediment by light steve roscopy 2-5 NRG Complete blood count (CBC) with automate d white blood cell (WBC) differential - 08/31/19 17:00 Blood leukocytes automated count (number/volume) 4.4 10*3/uL 4.3-11.0 Blood erythrocytes automated count (number/volume) 4.48 10*6/uL 4.35-5.85 Venous blood hemoglobin measurement (mass/volume) 13.4 g/dL 11.5-16.0 Blood hematocrit (volume fraction) 42 % 35-52 Automated erythrocyte mean corpuscular volume 94 [ foz_us] 80-99 Automated erythrocyte mean corpuscular h emoglobin (mass per erythrocyte) 30 pg 25-34 Automated erythrocyte mean corpuscular h emoglobin concentration measurement (mass/volume) 32 g/dL 32-36 Automated erythrocyte distribution width ratio 14. 4 % 10.0- 14.5 Automated blood platelet count (count/volume) 94 1 0*3/uL 130-400 Automated blood platelet mean volume measurement 10.4 [foz_us] 7.4-10.4 Automated blood neutrophils/100 leukocytes 74 % 42-75 Automated blood lymphocytes/100 leukocytes 15 % 12-44 Blood monocytes/100 leukocytes 10 % 0-12 Automated blood eosinophils/100 leukocytes 1 % 0-10 Automated blood basophils/100 leukocytes 1 % 0-10 Blood neutrophils automated count (number/volume) 3.3 10*3 1.8-7.8 Blood lymphocytes automated count (number/volume) 0.6 10*3 1.0-4.0 Blood monocytes automated count (number/volume) 0. 4 10*3 0.0-1.0 Automated eosinophil count 0.0 10*3/uL 0 .0-0.3 Automated blood basophil count (count/volume) 0.0 10*3/uL 0.0-0.1 Blood lactic acid measurement (moles/vol ume) - 08/31/19 17:00 Blood lactic acid measurement (moles/volume) 1.06 mmol/L 0.50-2.00 Comprehensive metabolic panel - 08/31/19 17:00 Serum or plasma sodium measurement (moles/volume) 138 mmol/L 135-145 Serum or plasma potassium measurement (moles/volume) 4.9 mmol/L 3.6-5.0 Serum or plasma chloride measurement (moles/volume) 106 mmol/L 98-107 Carbon dioxide 21 mmol/L 21-32 [...] 70-105 Serum or plasma calcium measurement (mass/volume) 9.9 mg/dL 8.5-10.1 Serum or plasma total bilirubin measurement (mass/volu me) 0.8 mg/dL 0.1-1.0 Serum or plasma alkaline phosphatase buddy surement (enzymatic activity/volume) 137 U/L 40-136 Serum or plasma aspartate aminotransfera se measurement (enzymatic activity/volume) 85 U/L 5-34 Serum or plasma alanine aminotransferase measurement (enzymatic activity/volume) 62 U/L 0-55 Serum or plasma protein measurement (mass/volume) 7.4 g/dL 6.4-8.2 Serum or plasma albumin measurement (mass/volume) 4.2 g/dL 3.2-4.5 CALCIUM CORRECTED 9.7 mg/dL 8.5-10.1 Serum ragweed IgE antibody assay - 08/30 17:00 Serum ragweed IgE antibody assay 482 U/L 125-220 PROCALCITONIN (PCT) - 08/31/19 17:00 PROCALCITONIN (PCT) 0.43 ng/mL <0.10 PT panel in platelet poor plasma by coag ulation assay - 08/31/19 17:00 Prothrombin time (PT) in platelet poor plasma by coagu lation assay 13.1 s 12.2-14.7 INR in platelet poor plasma or blood by coagulation as say 1.0 0.8-1.4 Activated partial thromboplastin time (a PTT) in platelet poor plasma bycoagulation assay - 08/31/19 17:00 Activated partial thromboplastin time (a PTT) in platelet poor plasma bycoagulation assay 22 s 24-35 Fibrin D-dimer FEU measurement in platel et poor plasma (mass/volume) - 08/31/19 17:00 Fibrin D-dimer FEU measurement in platelet poor plasma (mass/volume) 1.31 ug/mL 0.00-0.49 Erythrocyte sedimentation rate by mayco gren method - 08/31/19 17:00 Erythrocyte sedimentation rate by westergren method 8 mm 0- 30 Serum or plasma C reactive protein measu rement (mass/volume) - 08/31/19 17:00 Serum or plasma C reactive protein measurement (mass/v olume) 2.16 mg/dL 0.00-0.50 Serum or plasma lithium measurement (mol es/volume) - 08/31/19 17:00 BNP PT 284.3 pg/mL <100.0 Complete urinalysis with reflex to cultu re - 08/31/19 17:47 Urine color determination YELLOW NRG Urine clarity determination SL CLOUDY N RG Urine pH measurement by test strip 7.5 5-9 Specific gravity of urine by test [...] 1.0 Urine leukocyte esterase detection by dipstick 1+ NEGATIVE Automated urine sediment erythrocyte cou nt by microscopy (number/high power field) NONE NRG Automated urine sediment leukocyte count by microscopy (number/high power field) [HPF] NRG Bacteria detection in urine sediment by light microsco py TRACE NRG Crystals detection in urine sediment by light microsco py PRESENT NRG Casts detection in urine sediment by light microscopy NONE NRG Mucus detection in urine sediment by light microscopy SMALL NRG Complete urinalysis with reflex to culture CULTURE PENDING NRG Amorphous sediment detection in urine sediment by ligh t microscopy FEW RADHA PHOSPHATE NRG Arterial blood gas measurement - 0 19:42 Blood pCO2 41 mm[Hg] 35-45 Blood pO2 72 mm[Hg] 79-93 Arterial blood bicarbonate measurement (moles/volume) 23 mmol/L 23-27 Arterial blood base excess by calculation -0.8 mmo l/L -2.5-2.5 Arterial blood oxygen saturation measurement 93 % 94-100 * Inhaled oxygen flow rate ROOM AIR NRG Arterial blood pH measurement with patient temperature correction 7.38 7.37-7.43 Arterial blood carbon dioxide, total measurement (mole s/volume) 24.6 mmol/L 21.0-31.0 Body site RIGHT RADIAL NRG Assessment of wrist artery patency prior to arterial p uncture YES-POS NRG Setting of ventilation mode NO NR G Measurement of body temperature 100.4 NRG Encounters ACCT No. Visit Date/Time Discharge Status Pt. Type Provider Facility Loc./Unit Complaint [id number] 07/15/2019 09:08:00 Document Registration [id number] 08/10/2019 17:30:00 21:07:00 DIS Emergency ANNY MERA MD [facility] ER SEIZURE [id number] 07/31/2019 13:09:00 020 23:59:59 CLS Outpatient DARIO RUSSO DO [facility] RAD CHRONIC KIDNEY DISEASE STAGE 3,RENAL FAILURE [id number] 03/29/2019 09:44:00 13:02:00 DIS Emergency BOBO LINN DO [facility] ER DOUBLE VISION [id number] 03/22/2019 21:21:00 14:16:00 DIS Outpatient KENZIE COOPER MD [facility] 4TH ELEVATED TROPONIN,CLOSE D L CLAVICAL FX,FALL, [id number] 03/20/2019 13:23:00 15:02:00 DIS Outpatient JUHI LACY MD [facility] 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 [id number] 02/21/2019 13:47:00 00:01:00 DIS Outpatient JUHI LACY MD [facility] 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 [id number] 12/31/2018 18:50:00 11:11:00 DIS Inpatient SANDY WILLIS DO, V [facility] ICU CVA VS TIA [id number] 11/24/2018 10:01:00 00:01:00 DIS Outpatient JUHI LACY MD [facility] 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 [id number] 10/20/2018 06:48:00 08:40:00 DIS Emergency BOBO LINN DO a [facility] ER LEG CRAMPS [id number] 09/21/2018 06:50:00 09:30:00 DIS Emergency DOE WOODS, ROZ Tineo [facility] ER PAIN BACK OF RT LEG, INCONTINENCE [id number] 07/17/2018 14:36:00 15:00:00 DIS Inpatient ALLISON WOODS, KENZIE Ortiz [facility] 4TH CVA? L SIDED WEAKNESS [id number] 06/14/2018 08:59:00 23:59:59 CLS Outpatient MAYURI GARAY [facility] LAB HYPOGLYCEMIA [id number] 05/03/2018 11:30:00 13:40:00 DIS Inpatient LAZARO ALEXANDER SANDY [facility] IRF CVA [id number] 04/29/2018 11:55:00 10:19:00 DIS Inpatient LAZARO ALEXANDER SANDY [facility] 4TH STROKE [id number] 04/05/2018 08:26:00 019 23:59:59 CLS Preadmit DAPHNIE ODELL [facility] CARD CVA,CAROTID AR BLANCA STENOSIS [id number] 03/01/2018 09:37:00 018 23:59:59 CLS Outpatient NIKOS MAZARIEGOS [facility] RAD LOW BACK PAIN,B OWEL INCONT [id number] 02/27/2018 10:00:00 018 23:59:59 CLS Outpatient NIKOS MAZARIEGOSP [facility] RAD DIARRHEA [id number] 01/27/2018 16:58:00 018 23:59:59 CLS Outpatient SALAS MENDOZA MD [facility] LAB DIARRHEA [id number] [id number] 01/24/2018 06:05:00 018 08:37:00 DIS Emergency ROXANNE WOODS, KANDY Munoz [facility] ER DIARRHEA [id number] 12/19/2017 14:14:00 018 15:56:00 DIS Outpatient EDILMA BROWNING APRN [facility] REHAB LBP;BALANCE/GAIT ABNOR MALITIES [id number] 12/14/2017 09:32:00 018 00:01:00 DIS Outpatient EDILMA BROWNING APRN [facility] REHAB LBP;BALANCE/GAIT ABNOR MALITIES [id number] 11/26/2017 08:39:00 018 10:48:00 DIS Emergency VANESSA WOODS, ERIK Barnett [facility] ER SEVERE BACK PAIN X1 WEE K [id number] 05/18/2017 10:03:00 018 23:59:59 CLS Outpatient MICHELLE WOODS, DOMI Munoz [facility] CATH CRYPTOGENIC STROBE [id number] 03/16/2017 08:00:00 017 23:59:59 CLS Outpatient TELLO WILKINSON MD [facility] RAD HTN [id number] 01/02/2017 16:08:00 017 14:15:00 DIS Inpatient WILLIS DO, SANDY [facility] ICU COMPLETE LEFT HEMIANOPS IA,HEADACHE [id number] 09/05/2016 23:25:00 017 15:45:00 DIS Inpatient WILLIS DO, SANDY [facility] 4TH GENERALIZED WEAKNESS; A LTERED MENTAL STATUS; UTI [id number] 08/13/2016 10:34:00 017 13:18:00 DIS Outpatient NADIA BARTHOLOMEW MD [facility] ENDO WEIGHT LOSS/HX POLYPS [id number] 08/11/2016 05:49:00 017 14:46:00 DIS Outpatient NADIA BARTHOLOMEW MD [facility] PREOP WEIGHT LOSS/HX POLYPS [id number] 06/25/2015 09:00:00 016 23:59:59 CLS Outpatient DOMI MARTINEZ MD [facility] CARD CAD,CLAUDICATIONS, HTN HLP CVA [id number] 04/11/2014 14:55:00 015 10:55:00 DIS Outpatient TELLO WILKINSON MD [facility] REHAB CVA [id number] 04/16/2014 14:19:00 015 15:13:00 DIS Outpatient TELLO WILKINSON MD [facility] REHAB CVA [id number] 04/10/2014 07:45:00 015 12:42:00 DIS Outpatient DOMI MARTINEZ MD [facility] CATH CVA,CAROTID STENOSIS,HT N,HLP [id number] 03/22/2014 11:32:00 015 11:45:00 DIS Inpatient JERICA GILLIAM MD [facility] IRF IRF-CVA [id number] 03/20/2014 14:40:00 015 11:00:00 DIS Inpatient IWONA SINGH MD [facility] ICU CVA RIGHT SIDED WEAKNESS [id number] 12/12/2013 08:09:00 014 23:59:59 CLS Outpatient TELLO WILKINSON MD [facility] RAD CKD 3 [id number] 11/07/2013 10:45:00 23:59:59 CLS Outpatient TINO ODELL [facility] CARD CAROTID ART ALONZO STENOSIS,HTN,HLP,DYSPNEA [id number] 07/19/2013 07:02:00 23:59:59 CLS Outpatient ERNESTO FRITZ MD [facility] GERD [id number] 07/11/2013 07:29:00 23:59:59 CLS Outpatient ERNESTO FRITZ MD [facility] PREOP GERD [id number] 12/28/2012 08:03:00 23:59:59 CLS [facility] [id number] 12/27/2012 07:12:00 23:59:59 CLS Outpatient ERNESTO FRITZ MD [facility] PREOP REFLUX [id number] 10/26/2012 07:07:00 11:35:00 DIS Outpatient ERNESTO FRITZ MD [facility] GERD [id number] 10/25/2012 07:22:00 23:59:59 CLS Outpatient ERNESTO FRITZ MD [facility] PREOP GERD [id number] 09/13/2012 07:30:00 17:27:00 DIS Outpatient ERNESTO FRITZ MD [facility] GASTROESOPHAGEAL REFLU X DISEASE [id number] 09/08/2012 12:15:00 23:59:59 CLS Outpatient ERNESTO FRITZ MD [facility] PREOP GERD [id number] 08/31/2012 07:17:00 23:59:59 CLS Outpatient ERNESTO FRITZ MD [facility] SDC GERD [id number] 08/30/2012 07:17:00 013 23:59:59 CLS Outpatient ERNESTO FRITZ MD [facility] PREOP GERD [id number] 08/31/2019 19:00:[address] Inpatient SANDY WILLIS DO [facility] HYPOXIA;N/V/D [id number] 08/02/2018 06:56:00 Document Registration [id number] 08/02/2018 06:56:00 Document Registration [id number] 08/02/2018 06:56:00 Document Registration [id number] 03/22/2014 15:43:00 Document Registration [id number] 03/22/2014 15:43:00 Document Registration [id number] 03/22/2014 15:43:00 Document Registration [id number] 03/22/2014 15:43:00 Document Registration [id number] 06/22/2012 08:16:00 Document Registration [id number] 06/21/2012 08:10:00 Document Registration [id number] 02/16/2012 13:08:00 Document Registration [id number] 12/29/2011 10:50:00 Document Registration [id number] 11/25/2011 11:45:00 Document Registration [id number] 12/18/2010 10:24:00 Document Registration [id number] 10/20/2010 13:35:00 Document Registration [id number] 09/28/2010 10:33:00 Document Registration [id number] 09/24/2010 13:48:00 Document Registration [id number] 06/18/2010 12:28:00 Document Registration [id number] 04/21/2010 00:00:00 Document Registration [id number] 04/14/2010 13:40:00 Document Registration [id number] 03/30/2010 13:42:00 Document Registration [id number] 03/27/2010 10:20:00 Document Registration [id number] 03/17/2010 19:50:00 Document Registration [id number] 01/14/2010 19:10:00 Document Registration [id number] 12/18/2009 10:20:00 Document Registration [id number] 12/16/2009 09:23:00 Document Registration [id number] 09/22/2009 10:14:00 Document Registration [id number] 09/11/2009 09:36:00 Document Registration [id number] 08/25/2009 09:20:00 Document Registration [id number] 07/30/2009 11:44:00 Document Registration [id number] 02/26/2009 11:04:00 Document Registration [id number] 01/22/2009 16:12:00 Document Registration [id number] 12/28/2008 16:48:00 Document Registration [id number] 10/16/2008 09:11:00 Document Registration [id number] 09/09/2008 13:26:00 Document Registration [id number] 12/22/2006 12:05:00 Document Registration [id number] 07/29/2006 13:17:00 Document Registration [id number] 11/09/2017 14:35:31 11/09/2017 23:59:5 9 [facility] Outpatient [id number] 12/02/2016 09:50:00 Document Registration [id number] 07/09/2019 14:46:00 08/07/2019 08:37 :00 DIS Outpatient Juhi Lacy [id number] 07/13/2019 13:57:00 07/13/2019 23:59 :00 DIS Outpatient Juhi Lacy [id number] 03/07/2017 14:11:00 03/07/2017 23:59: 00 DIS Outpatient TELLO WILKINSON [id number] 12/02/2016 09:50:00 12/02/2016 23:59: 00 DIS Outpatient TELLO WILKINSON [id number] 11/30/2016 17:50:00 11/30/2016 23:59: 00 DIS Outpatient TELLO WILKINSON [id number] 07/21/2016 13:51:00 07/21/2016 23:59: 00 DIS Outpatient TELLO WILKINSON [id number] 07/01/2016 16:30:00 07/01/2016 23:59: 00 DIS Outpatient TELLO WILKINSON [id number] 02/05/2016 16:48:00 02/05/2016 23:59: 00 DIS Outpatient TELLO WILKINSON [id number] 03/07/2017 10:30:00 Document Registration [id number] 01/03/2017 11:00:00 Document Registration [id number] 11/30/2016 17:00:00 Document Registration [id number] 12/03/2016 10:16:00 Document Registration [id number] 12/02/2016 12:18:00 Document Registration [id number] 08/27/2019 17:50:00 08/27/2019 23:59: 59 [facility] Outpatient [facility] [id number] 03/19/2019 15:00:00 Document Registration [id number] 12/18/2018 16:20:00 Document Registration [id number] 11/23/2018 15:00:00 Document Registration [id number] 12/02/2016 11:16:00 Document Registration
[2019-08-31] MEDS: HEParin DRIP 25000 UNIT/500ML 500 ML IV SCH (22:55)
[2019-09-01] VITALS (12 sets, daily range): BP systolic 87–145; BP diastolic 54–96
[2019-09-01 02:23] LABS: BASOPHILS % (AUTO) 1 % (0-10); EOSINOPHILS % (AUTO) 1 % (0-10); HEMATOCRIT 37 % (35-52); HEMOGLOBIN 11.8 G/DL (11.5-16.0); LYMPHOCYTES # (AUTO) 0.7 X 10^3 (1.0-4.0); LYMPHOCYTES % (AUTO) 19 % (12-44); MEAN CORPUSCULAR HEMOGLOBIN 30 PG (25-34); MEAN CORPUSCULAR HGB CONC 32 G/DL (32-36); MEAN CORPUSCULAR VOLUME 94 FL (80-99); MEAN PLATELET VOLUME 11.4 FL (7.4-10.4); MONOCYTES # (AUTO) 0.5 X 10^3 (0.0-1.0); MONOCYTES % (AUTO) 14 % (0-12); NEUTROPHILS # (AUTO) 2.5 X 10^3 (1.8-7.8); NEUTROPHILS % (AUTO) 66 % (42-75); PLATELET COUNT 87 10^3/uL (130-400); RED CELL DISTRIBUTION WIDTH 14.2 % (10.0-14.5); WHITE BLOOD COUNT 3.8 10^3/uL (4.3-11.0)
[2019-09-01 02:27] LABS: ALBUMIN 3.4 GM/DL (3.2-4.5); POTASSIUM 4.3 MMOL/L (3.6-5.0)
[2019-09-01 02:31] LABS: BILIRUBIN,TOTAL 0.7 MG/DL (0.1-1.0)
[2019-09-01 02:32] LABS: PHOSPHORUS 2.6 MG/DL (2.3-4.7)
[2019-09-01 02:33] LABS: CREATININE SERUM 1.55 MG/DL (0.60-1.30)
--- NOTE | 2019-09-01 06:48 | Pulmonary Consultation ---
History of Present Illness History of Present Illness Date Seen by Provider: Sep 01, 2019 Time Seen by Provider: 06:43 Date of Admission Allergies and Home Medications Allergies Coded Allergies: donepezil (Verified Allergy, Unknown, disoriented, stroke like symptoms, 03/23/19) fentanyl (Verified Adverse Reaction, Mild, 03/23/19) MAKES HER HALLUCINATE Home Medications Acetaminophen 325 Mg Tablet, 650 MG PO Q4H PRN for PAIN-MILD, (Reported) Amlodipine Besylate 5 Mg Tablet, 5 MG PO DAILY, (Reported) Aspirin 81 Mg Tablet.dr, 81 MG PO DAILY, (Reported) Atorvastatin Calcium 20 Mg Tablet, 20 MG PO HS Prescribed by: SALAS GALEANO on 03/27/191418 Brimonidine Tartrate 5 Ml Btl, 1 DROP OU BID, (Reported) Bupropion HCl 300 Mg Tab.er.24h, 300 MG PO DAILY, (Reported) Desvenlafaxine 50 Mg Tab.er.24h, 50 MG PO DAILY Prescribed by: ANNY MERA on 08/10/192027 Diclofenac Sodium 100 Gm Gel..gram., 2 GM TOP QID PRN for JOINT PAIN, (Reported) Dronedarone HCl 400 Mg Tablet, 400 MG PO BID Prescribed by: SALAS GALEANO on 03/27/191418 Gabapentin 300 Mg Capsule, 300 MG PO BID, (Reported) Hydrocodone Bit/Acetaminophen 1 Tab Tab, 1 TAB PO Q4H PRN for PAIN-MODERATE (5- 7) Prescribed by: SALAS GALEANO on 03/27/191418 Latanoprost 2.5 Ml Drops, 1 DROP OU HS, (Reported) Magnesium Oxide 400 Mg Tablet, 400 MG PO BID, (Reported) Metoprolol Succinate 100 Mg Tab.er.24h, 100 MG PO DAILY, (Reported) Pantoprazole Sodium 40 Mg Tablet.dr, 40 MG PO DAILY Prescribed by: SALAS GALEANO on 03/27/191418 Polyethylene Glycol 3350 17 Gm Powd.pack, 17 GM PO BID Prescribed by: SALAS GALEANO on 03/27/191418 Past Kvfvefp-Sjiqyb-Sxdoyp Hx Past Med/Social Hx: Reviewed Nursing Past Med/Soc Hx Patient Social History Alcohol Use: Denies Use Recreational Drug Use: No Smoking Status: Former Smoker Type Used: Cigarettes Former Smoker, Quit: Dec 19, 1986 2nd Hand Smoke Exposure: No Recent Foreign Travel: No Contact w/Someone Who Travel: No Recent Infectious Disease Expo: No Recent Hopitalizations: Yes Immunizations Up To Date Tetanus Booster (TDap): Unknown PED Vaccines UTD: Yes Date of Pneumonia Vaccine: Mar 23, 2016 Date of Influenza Vaccine: Dec 21, 2018 Seasonal Allergies Seasonal Allergies: Yes Past Medical History Surgeries: Yes (LOOP RECORDER; JAW SURGERY; HIATAL HERNIA REPAIR X 2;BILAT CATARACTS;DENTAL) Abdominal, Appendectomy, Eye Surgery, Tonsillectomy Respiratory: Yes (CHRONIC DYSPNEA ON EXERTION) Currently Using CPAP: No Currently Using BIPAP: No Cardiac: Yes (LOOP RECORDER IN PLACE;PERIPHERAL VASCULAR DZ;CAROTID DZ;CLAUDICATION) Atrial Fibrillation, Coronary Artery Disease, Heart Murmur, High Cholesterol, Hypertension, Peripheral Vascular, Valvular Heart Disease Neurological: Yes (MULTIPLE CVA'S--AT LEAST 5 OR 6 CVA'S WITH LEFT SIDE WEAKNESS) Stroke, TIA 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 Disorders: No Female 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 Disorders: Denies 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 Sexually Transmitted Disease: No HIV/AIDS: No Genitourinary: Yes (BLADDER CONTROL PROBLEMS; CHRONIC RENAL FAILURE/INSUFFICIENCY) Renal Failure Gastrointestinal: Yes (HIATAL HERNIA SURGERY X 2; EGD/COLONOSCOPY) Gastroesophageal Reflux, Polyps, Hiatal Hernia, Ulcer Musculoskeletal: Yes Arthritis, Fibromyalgia, Rheumatoid Arthritis Endocrine: No HEENT: Yes (BILATERAL CATARACT SURGERY) Cataract, Glaucoma Hearing Impairment: Denies Cancer: No Did You Recieve Any Treatments: No Psychosocial: Yes Anxiety, Depression Integumentary: No Blood Disorders: Yes (ANEMIA) Adverse Reaction/Blood Tranf: No Family Medical History Reviewed Nursing Family Hx FH: CVA (cerebrovascular accident) G8 BROTHER G8 SISTER FH: breast cancer 19 MOTHER FH: cancer 19 FATHER Hypertension 19 MOTHER Sepsis Event Evaluation Height, Weight, BMI Height: 5'4.00" Weight: 170lbs. 1.6oz. 77.439083wv; 29.72 BMI Method:Stated Exam Exam Vital Signs Date Time Temp Pulse Resp B/P (MAP) Pulse Ox O2 Delivery O2 Flow Rate FiO2 09/01/19 06:00 67 21 145/74 (97) 92 Room Air 09/01/19 05:00 70 19 136/70 (92) 94 Room Air 09/01/19 04:00 67 17 128/90 (103) 93 Room Air 09/01/19 04:00 Room Air 09/01/19 03:00 64 20 134/68 (90) 94 Room Air 09/01/19 02:00 66 20 134/73 (93) 94 Room Air 09/01/19 01:45 37.8 09/01/19 01:00 65 09/01/19 01:00 65 21 125/62 (83) 93 Room Air 09/01/19 00:00 61 20 118/96 (103) 92 Room Air 09/01/19 00:00 Room Air 08/31/19 23:00 61 16 90/76 (81) 94 Room Air 08/31/19 22:00 60 17 113/81 (92) 99 Room Air 08/31/19 21:30 65 17 112/93 (99) 95 Room Air 08/31/19 21:00 60 16 110/77 (88) 97 Room Air 08/31/19 20:45 64 15 126/73 (90) 92 Room Air 08/31/19 20:30 61 18 123/69 (87) 95 Room Air 08/31/19 20:15 60 20 127/75 (92) 95 Room Air 08/31/19 20:00 Room Air 08/31/19 19:55 37.6 59 16 117/74 (88) 97 Room Air 08/31/19 19:55 37.6 59 16 117/74 (88) 97 Room Air 08/31/19 19:29 59 19 140/67 94 Room Air 08/31/19 19:20 58 19 134/85 (101) 94 Room Air 08/31/19 19:00 61 08/31/19 18:17 59 18 139/67 (91) 96 Room Air 08/31/19 17:54 62 16 139/69 96 Room Air 08/31/19 17:17 Nasal Cannula 2.00 100 08/31/19 17:17 37.9 52 21 125/72 (89) 100 Nasal Cannula 2.00 08/31/19 17:17 37.9 52 20 125/72 100 Nasal Cannula 2.00 08/31/19 16:54 37.9 53 20 126/62 (83) 100 Nasal Cannula 2.00 I & O 09/01/19 07:00 Intake Total 450 ml Output Total 1150 ml Balance -700 ml Height & Weight Height: 5'4.00" Weight: 170lbs. 1.6oz. 77.294695eu; 29.72 BMI Method:Stated General Appearance: No Apparent Distress, Chronically ill HEENT: PERRL/EOMI, Pharynx Normal Neck: Full Range of Motion, Supple Respiratory: Lungs Clear, Normal Breath Sounds Cardiovascular: No Murmur, Bradycardia Capillary Refill: Less Than 3 Seconds Extremity: Normal Range of Motion, Non Tender Neurologic/Psychiatric: Alert, Other (Drowsy. knows self and situation) Results Lab Laboratory Tests 08/31/19 17:00 09/01/19 02:00 Assessment/Plan Assessment/Plan Mild hypoxia -COVID is pending -Elevated Ddimer on admission -- Doubt PE -Check V/Q scan and dopplers bilateral on Tuesday -Currently on Hep gtt. -No on RA UTI -Ceron cultures -Cefepime Renal failure -IVF LR 75cc/hr chronic dementia -Lives at home Pt is doing well. will transfer to 4th floor. AMELIA YI DO Sep 01, 2019 06:48
[2019-09-01] MEDS ORDERED: ATOR80TA76 PO (07:53)
[2019-09-01] MEDS ORDERED: DESV50TA PO (07:53)
[2019-09-01] MEDS ORDERED: AMLO10TA7 PO (07:53)
--- NOTE | 2019-09-01 08:23 | History & Physical-Hospitalist ---
History of Present Illness HPI/Chief Complaint CC: Hypoxia HPI: This is a 74yoWF clinic patient of [facility] known to me from prior CVA admit who lives with granddaughter at home who presented to the ER yesterday after 4 days of N/V. Hypoxia was noted and dehydration on labs and exam so she was swabbed for COVID and admitted to ICU due to elevated d-dimer and unable to evaluate with CT angiogram due to baseline creatinine 1.8. Patient Source: patient, RN/MD Exam Limitations: clinical condition (confused at baseline por recall) Date Seen 09/01/19 Time Seen by a Provider: 11:00 Attending Physician Lindsay You DO PCP Augie Weaver MD Referring Physician Date of Admission Aug 31, 2019 at 19:00 Home Medications & Allergies Home Medications Reviewed patient Home Medication Reconciliation performed by pharmacy medication reconciliations imaging technician and/or nursing. Patients Allergies have been reviewed. Allergies Allergies Coded Allergies donepezil (Verified Allergy, Unknown, disoriented, stroke like symptoms, 03/23/19) fentanyl (Verified Adverse Reaction, Mild, 03/23/19) MAKES HER HALLUCINATE Past Zotassz-Qmgqtm-Sigdum Hx Past Med/Social Hx: Reviewed Nursing Past Med/Soc Hx, Reviewed and Corrections made Patient Social History Marrital Status: single Employed/Student: retired Alcohol Use: Denies Use Recreational Drug Use: No Smoking Status: Former Smoker Former Smoker, Quit: Dec 19, 1986 Type Used: Cigarettes 2nd Hand Smoke Exposure: No Recent Foreign Travel: No Contact w/other who traveled: No Recent Hopitalizations: Yes Recent Infectious Disease Expo: No Immunizations Up To Date Tetanus Booster (TDap): Unknown Pediatric: Yes Date of Pneumonia Vaccine: Mar 23, 2016 Date of Influenza Vaccine: Dec 21, 2018 Seasonal Allergies Seasonal Allergies: Yes Past Medical History Surgeries: Abdominal, Appendectomy, Eye Surgery, Tonsillectomy Currently Using CPAP: No Currently Using BIPAP: No Cardiac: Atrial Fibrillation, Coronary Artery Disease, Heart Murmur, High Cholesterol, Hypertension, Peripheral Vascular, Valvular Heart Disease Hyperlipidemia Neurological: Stroke, TIA 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: No Sexually Transmitted Disease: No HIV/AIDS: No Female 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 Disorders: Denies Menopausal Genitourinary: Renal Failure Gastrointestinal: Gastroesophageal Reflux, Polyps, Hiatal Hernia, Ulcer Musculoskeletal: Arthritis, Fibromyalgia, Rheumatoid Arthritis HEENT: Cataract, Glaucoma Hearing Impairment: Denies Did You Recieve Any Treatments: No Psychosocial: Anxiety, Depression History of Blood Disorders: Yes (ANEMIA) Adverse Reaction to Blood Quevedo: No Family History Reviewed Nursing Family Hx FH: CVA (cerebrovascular accident) G8 BROTHER G8 SISTER FH: breast cancer 19 MOTHER FH: cancer 19 FATHER Hypertension 19 MOTHER Review of Systems Constitutional: see HPI, weakness Respiratory: dyspnea on exertion Psychiatric/Neurological: Other (confusion) Physical Exam Physical Exam Vital Signs Vital Signs - First Documented 08/31/19 08/31/19 16:54 17:17 Temp 37.9 Pulse 53 Resp 20 B/P (MAP) 126/62 (83) Pulse Ox 100 O2 Delivery Nasal Cannula O2 Flow Rate 2.00 FiO2 100 Capillary Refill : Less Than 3 Seconds Height, Weight, BMI Height: 5'4.00" Weight: 170lbs. 1.6oz. 77.548217cu; 29.72 BMI Method:Stated General Appearance: No Apparent Distress, WD/WN, Anxious, Chronically ill Neurologic/Psychiatric: Alert, Oriented x3, No Motor/Sensory Deficits (left sided weakness), Normal Mood/Affect Results Results/Procedures Labs Laboratory Tests 08/31/19 17:00 09/01/19 02:00 Patient resulted labs reviewed. Assessment/Plan Admission Diagnosis Assessment: Hypoxia Elevated d-dimer on Heparin until VQ scan performed Bronchitis acute bacterial type placed on Cefepime empirically Acute on chronic renal failure h/o CVA with left sided weakness s/p rehab 04/2018 PAF Depression Anxiety Former smoker Loop recorder in place Plan: Appreciate Pulmo and Cards Home meds O2 Nebs COVID-19 negative Admission Status: Inpatient Order (span 2 midnights) Reason for Inpatient Admission: hypoxia with elevated d-dimer and COVID-19 swabbed Diagnosis/Problems Diagnosis/Problems (1) Hypoxia (2) Bronchitis (3) Cerebrovascular accident (CVA) with left hemiparesis Status: Chronic (4) Hypertension Status: Chronic (5) Paroxysmal atrial fibrillation Status: Chronic (6) Hyperlipidemia Status: Chronic (7) Depression Status: Chronic (8) CVA, old, facial weakness Status: Chronic Clinical Quality Measures DVT/VTE Risk/Contraindication: Risk Factor Score Per Nursin RFS Level Per Nursing on Admit: 4+=Very High LINDSAY YOU DO Sep 01, 2019 08:23
[2019-09-01] MEDS: LACTATED RINGERS 1,000 ML IV SCH ×2 (11:32→22:03)
--- NOTE | 2019-09-01 13:58 | Consultation - Surgery ---
History of Present Illness History of Present Illness Patient Consulted On(cris/time) 09/01/19 13:53 Time Seen by Provider: 12:29 History of Present Illness Surgery asked to consult regarding Abdominal pain and Diarrhea. HPI per ED: pt presents to ED with c/o diarrhea, weakness, and fevers x 4-5 days. pt is a&o x 3. pt usually gets around with walker but has had increased difficulty since sx began. Here with report of diarrhea over the last few days, weakness and fevers. Has been increasingly weak since onset of symptoms. Patient is poor historian and does have history of multiple strokes in the past as well as seizure disorder. Unsure of exposure. Denies sore throat or runny nose but does admit to weakness. Timing/Duration: 4-5 Days, Getting Worse Severity: Moderate Associated Systoms: No Chest Pain, No Cough; Fever/Chills; No Nausea/Vomiting, No Seizure, No Shortness of Air; Weakness When I spoke to pt she states she has no abdominal pain and hasn't had any more BM's. She does state she is hungry and asked why she didn't get a tray (aide said it was on the way up). Pt also said "I don't know, maybe my stomach will hurt after I eat". Pt rated the pain as 6 out of 10 when it was at its worst. She is not sure if anything make is better or worse. Allergies and Home Medications Allergies Coded Allergies: donepezil (Verified Allergy, Unknown, disoriented, stroke like symptoms, 03/23/19) fentanyl (Verified Adverse Reaction, Mild, 03/23/19) MAKES HER HALLUCINATE Home Medications Acetaminophen 325 Mg Tablet, 650 MG PO Q4H PRN for PAIN-MILD, (Reported) Amlodipine Besylate 10 Mg Tablet, 10 MG PO DAILY, (Reported) Aspirin 81 Mg Tablet.dr, 81 MG PO DAILY, (Reported) Brimonidine Tartrate 5 Ml Btl, 1 DROP OU BID, (Reported) Bupropion HCl 300 Mg Tab.er.24h, 300 MG PO DAILY, (Reported) Desvenlafaxine Succinate 50 Mg Tab.er.24h, 50 MG PO DAILY, (Reported) Diclofenac Sodium 100 Gm Gel..gram., 2 GM TOP QID PRN for JOINT PAIN, (Reported) Dronedarone HCl 400 Mg Tablet, 400 MG PO BID Prescribed by: SALAS GALEANO on 03/27/19 141 Gabapentin 300 Mg Capsule, 300 MG PO BID, (Reported) Latanoprost 2.5 Ml Drops, 1 DROP OU HS, (Reported) Magnesium Oxide 400 Mg Tablet, 400 MG PO BID, (Reported) Metoprolol Succinate 100 Mg Tab.er.24h, 100 MG PO DAILY, (Reported) Pantoprazole Sodium 40 Mg Tablet.dr, 40 MG PO DAILY Prescribed by: SALAS GALEANO on 03/27/19 141 Patient Home Medication List Home Medication List Reviewed: Yes Past Uqemioy-Azumwy-Bfylsk Hx Patient Social History Alcohol Use: Denies Use Recreational Drug Use: No Smoking Status: Former Smoker Former Smoker, Quit: Dec 19, 1986 Type Used: Cigarettes 2nd Hand Smoke Exposure: No Recent Foreign Travel: No Contact w/Someone Who Travel: No Recent Infectious Disease Expo: No Recent Hopitalizations: Yes Immunizations Up To Date Tetanus Booster (TDap): Unknown PED Vaccines UTD: Yes Date of Pneumonia Vaccine: Mar 23, 2016 Date of Influenza Vaccine: Dec 21, 2018 Seasonal Allergies Seasonal Allergies: Yes Surgeries History of Surgeries: Yes (LOOP RECORDER; JAW SURGERY; HIATAL HERNIA REPAIR X 2;BILAT CATARACTS;DENTAL) Surgeries: Abdominal, Appendectomy, Eye Surgery, Tonsillectomy Respiratory History of Respiratory Disorde: Yes (CHRONIC DYSPNEA ON EXERTION) Cardiovascular History of Cardiac Disorders: Yes (LOOP RECORDER IN PLACE;PERIPHERAL VASCULAR DZ;CAROTID DZ;CLAUDICATION) Cardiac Disorders: Atrial Fibrillation, Coronary Artery Disease, Heart Murmur, High Cholesterol, Hypertension, Peripheral Vascular, Valvular Heart Disease Neurological History of Neurological Disord: Yes (MULTIPLE CVA'S--AT LEAST 5 OR 6 CVA'S WITH LEFT SIDE WEAKNESS) Neurological Disorders: Stroke, TIA 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 System Hx 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 Disorders: No Sexually Transmitted Disease: No HIV/AIDS: No Female 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 Disorders: Denies 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 Genitourinary History of Genitourinary Disor: Yes (BLADDER CONTROL PROBLEMS; CHRONIC RENAL FAILURE/INSUFFICIENCY) Genitourinary Disorders: Renal Failure Gastrointestinal History of Gastrointestinal Di: Yes (HIATAL HERNIA SURGERY X 2; EGD/COLONOSCOPY) Gastrointestinal Disorders: Gastroesophageal Reflux, Polyps, Hiatal Hernia, Ulcer Musculoskeletal History of Musculoskeletal Dis: Yes Musculoskeletal Disorders: Arthritis, Fibromyalgia, Rheumatoid Arthritis Endocrine History of Endocrine Disorders: No HEENT History of HEENT Disorders: Yes (BILATERAL CATARACT SURGERY) HEENT Disorders: Cataract, Glaucoma Hearing Impairment: Denies Cancer History of Cancer: No Psychosocial History of Psychiatric Problem: Yes Behavioral Health Disorders: Anxiety, Depression Integumentary History of Skin or Integumenta: No Blood Transfusions History of Blood Disorders: Yes (ANEMIA) Adverse Reaction to a Blood Tr: No Family Medical History Significant Family History: Cancer, Hypertension, Stroke Family Medial History: FH: CVA (cerebrovascular accident) G8 BROTHER G8 SISTER FH: breast cancer 19 MOTHER FH: cancer 19 FATHER Hypertension 19 MOTHER Review of Systems-General Constitutional: malaise, weakness EENTM: blurred vision, vision loss; No mouth swelling, No epistaxis Respiratory: No cough, No dyspnea on exertion, No short of breath Cardiovascular: No chest pain, No edema Gastrointestinal: abdominal pain, diarrhea; No nausea, No vomiting Genitourinary: No dysuria; frequency; No hematuria Musculoskeletal: joint pain, joint swelling, muscle stiffness Skin: No change in color, No change in hair/nails Psychiatric/Neurological: Anxiety, Depressed, Seizure, Other (hx of strokes) Other pt denies any hx of abnormal bleeding or bruising Physical Exam-General Problems Physical Exam Vital Signs Vital Signs - First Documented 08/31/19 08/31/19 16:54 17:17 Temp 37.9 Pulse 53 Resp 20 B/P (MAP) 126/62 (83) Pulse Ox 100 O2 Delivery Nasal Cannula O2 Flow Rate 2.00 FiO2 100 Capillary Refill : Less Than 3 Seconds General Appearance: WD/WN, mild distress Eyes: Bilateral Eye PERRL, Bilateral Eye EOMI HEENT: pharynx normal; No scleral icterus (R), No scleral icterus (L) Neck: non-tender, supple Respiratory: lungs clear, normal breath sounds, no respiratory distress, no accessory muscle use Cardiovascular: no murmur, bradycardia Gastrointestinal: soft, no organomegaly; No distended; tenderness (mild diffusely) Extremities: no pedal edema, no calf tenderness, normal capillary refill Neurologic/Psychiatric: environmental tech II-XII nml as tested, alert, normal mood/affect, oriented x 3 Skin: normal color, warm/dry Lymphatic: no adenopathy (neck, axilla or groin) Data Review Labs Laboratory Tests 08/31/19 17:00: White Blood Count 4.4, Red Blood Count 4.48, Hemoglobin 13.4, Hematocrit 42, Mean Corpuscular Volume 94, Mean Corpuscular Hemoglobin 30, Mean Corpuscular Hemoglobin Concent 32, Red Cell Distribution Width 14.4, Platelet Count 94L, Mean Platelet Volume 10.4, Neutrophils (%) (Auto) 74, Lymphocytes (%) (Auto) 15, Monocytes (%) (Auto) 10, Eosinophils (%) (Auto) 1, Basophils (%) (Auto) 1, Neutrophils # (Auto) 3.3, Lymphocytes # (Auto) 0.6L, Monocytes # (Auto) 0.4, Eosinophils # (Auto) 0.0, Basophils # (Auto) 0.0, Erythrocyte Sedimentation Rate 8, Prothrombin Time 13.1, INR Comment 1.0, Activated Partial Thromboplast Time 22L, D-Dimer 1.31H, Sodium Level 138, Potassium Level 4.9, Chloride Level 106, Carbon Dioxide Level 21, Anion Gap 11, Blood Urea Nitrogen 26H, Creatinine 1.74H , Estimat Glomerular Filtration Rate 29, BUN/Creatinine Ratio 15, Glucose Level 107H, Lactic Acid Level 1.06, Calcium Level 9.9, Corrected Calcium 9.7, Total B ilirubin 0.8, Aspartate Amino Transf (AST/SGOT) 85H, Alanine Aminotransferase (ALT/SGPT) 62H, Alkaline Phosphatase 137H, Lactate Dehydrogenase 482H, C- Reactive Protein High Sensitivity 2.16H, B-Type Natriuretic Peptide 284.3H, Total Protein 7.4, Albumin 4.2, Procalcitonin 0.43H 08/31/19 17:47: Urine Color YELLOW, Urine Clarity SL CLOUDY, Urine pH 7.5, Urine Specific Mobile 1.020, Urine Protein 2+H, Urine Glucose (UA) NEGATIVE, Urine Ketones NEGATIVE, Urine Nitrite NEGATIVE, Urine Bilirubin NEGATIVE, Urine Urobilinogen 0.2, Urine Leukocyte Esterase 1+H, Urine RBC (Auto) NEGATIVE, Urine RBC NONE, Urine WBC 10-25H, Urine Crystals PRESENTH, Urine Amorphous Sediment FEW RADHA PHOSPHATEH, Urine Bacteria TRACE, Urine Casts NONE, Urine Mucus SMALLH, Urine Culture Indicated CULTURE PENDING 08/31/19 19:42: Blood Gas Puncture Site RIGHT RADIAL, Blood Gas Patient Temperature 100.4, Arterial Blood pH 7.38, Arterial Blood Partial Pressure CO2 41, Arterial Blood Partial Pressure O2 72L, Arterial Blood HCO3 23, Arterial Blood Total CO2 24.6, Arterial Blood Oxygen Saturation 93L, Arterial Blood Base Excess -0.8, Claudy Test YES-POS, Blood Gas Ventilator Setting NO, Blood Gas Inspired Oxygen ROOM AIR 08/31/19 22:19: Lactic Acid Level 1.91 09/01/19 02:00: White Blood Count 3.8L, Red Blood Count 3.89L, Hemoglobin 11.8, Hematocrit 37, Mean Corpuscular Volume 94, Mean Corpuscular Hemoglobin 30, Mean Corpuscular Hemoglobin Concent 32, Red Cell Distribution Width 14.2, Platelet Count 87L, M usha Platelet Volume 11.4H, Neutrophils (%) (Auto) 66, Lymphocytes (%) (Auto) 19, Monocytes (%) (Auto) 14H, Eosinophils (%) (Auto) 1, Basophils (%) (Auto) 1, Neutrophils # (Auto) 2.5, Lymphocytes # (Auto) 0.7L, Monocytes # (Auto) 0.5, Eosinophils # (Auto) 0.0, Basophils # (Auto) 0.0, Activated Partial Thromboplast Time 187*H, Sodium Level 138, Potassium Level 4.3, Chloride Level 107, Carbon Dioxide Level 22, Anion Gap 9, Blood Urea Nitrogen 22H, Creatinine 1.55H, Estimat Glomerular Filtration Rate 33, BUN/Creatinine Ratio 14, Glucose Level 96, Calcium Level 9.0, Corrected Calcium 9.5, Phosphorus Level 2.6, Magnesium Level 2.0, Total Bilirubin 0.7, Aspartate Amino Transf (AST/SGOT) 71H, Alanine Aminotransferase (ALT/SGPT) 48, Alkaline Phosphatase 110, Total Protein 6.0L, Albumin 3.4 09/01/19 09:55: Activated Partial Thromboplast Time 168*H 09/01/19 12:30: Activated Partial Thromboplast Time 104H Assessment/Plan Assessment/Plan Assessment/Plan Abdominal Pain Diarrhea Transient Hypoxia Pt is admitted and being treated for sepsis; will order stool studies and monitor her abdominal pain. Diet as tolerated and max medical care. Clinical Quality Measures DVT/VTE Risk/Contraindication: Risk Factor Score Per Nursin RFS Level Per Nursing on Admit: 4+=Very High JERICA CONTRERAS DO Sep 01, 2019 13:58
--- NOTE | 2019-09-01 18:20 | NUR ---
REPORT RECEIVED FROM JORGE MAURICIO. PATIENT TRANSFERRED BY WHEELCHAIR TO ROOM 418. PATIENT IS SITTING IN CHAIR. PATIENT ASKING IF i KNOW WHERE HER MOTHER IS... WHEN ASKED HER MOTHER'S NAME SHE SAID LOVELY. WHEN PROMPTED THAT LOVELY IS HER DAUGHTER, THE PATIENT AGREES. SHE IS ASKING FOR HER PHONE. DENIES ANY OTHER NEEDS AT THIS TIME.
[2019-09-01] MEDS ORDERED: CEFEPIME 2 GM (MAXIPIME) VIAL ONE (19:58)
[2019-09-01] MEDS ORDERED: WATER (STERILE) FOR INJECTION 20 ML ONE (19:58)
[2019-09-01] MEDS: CEFEPIME 2,000 MG/SWFI 20 ML IV PUSH IV SCH ×2 (20:47)
[2019-09-01] MEDS ORDERED: NON-FORMULARY MEDICATION 1 EA EA (Magnesium Oxide (Magnesium) 400 MG) PO SCH (21:00)
--- NOTE | 2019-09-01 21:20 | Consultation-Cardiology ---
HPI-Cardiology Cardiology Consultation: Date of Consultation 09/01/19 Date of Admission Attending Physician Lindsay Willis DO Admitting Physician Augie Weaver MD Consulting Physician Faye FIELDS MD HPI: Time Seen by a Provider: 16:00 This is a 74-year-old lady who is a patient of Dr. Aponte. She has previous history of strokes and seizure disorder. She is a poor historian. She presented with weakness and fever. She was found to be hypoxic in the ER. Elevated d-dimer. Therefore she will be ruled out for COVID-19. Review of Systems-Cardiology Review of Systems Constitutional: As described under HPI; No As described under HPI, No no symptoms reported, No chills, No fever, No lightheadedness Eyes: No As described under HPI, No no symptoms reported, No blindness, No blurred vision, No contact lenses, No drainage, No decreased acuity, No foreign body sensation, No pain, No vision change Ears/Nose/Throat: No As described under HPI, No no symptoms reported, No chronic hearing loss, No ear discharge, No ear pain, No nasal drainage, No ulcerations Respiratory: No no symptoms reported; As described under HPI; No As described under HPI, No cough, No orthopnea; shortness of breath; No SOB with excertion Cardiovascular: No no symptoms reported; As described under HPI; No As described under HPI, No chest pain, No edema, No irregular heart rate, No lightheadedness, No palpitations Gastrointestinal: No no symptoms reported, No As described under HPI, No abdomen distended, No abdominal pain, No blood streaked bowels, No constipation, No diarrhea, No nausea, No vomiting, No stool coloration changes Genitourinary: No As described under HPI, No burning, No dysuria, No discharge, No frequency, No flank pain, No hematuria, No urgency : Yes : No Skin: No rash, No skin related problems, No ulcerations Psychiatric/Neurological: No anxiety, No depression, No seizure, No focal weakness, No syncope Hematologic: No bleeding abnormalities All Other Systems Reviewed Negative Unless Noted: Yes CJC-Eydvan-Ptlmmd Hx Patient Social History Marrital Status: single Employed/Student: retired Alcohol Use: Denies Use Recreational Drug Use: No Smoking Status: Former Smoker Type Used: Cigarettes 2nd Hand Smoke Exposure: No Recent Foreign Travel: No Recent Infectious Disease Expo: No Immunizations Up To Date Tetanus Booster (TDap): Unknown Date of Pneumonia Vaccine: Mar 23, 2016 Date of Influenza Vaccine: Dec 21, 2018 Past Medical History PMH As described under Assessment. Family Medical History Family History: FH: CVA (cerebrovascular accident) G8 BROTHER G8 SISTER FH: breast cancer 19 MOTHER FH: cancer 19 FATHER Hypertension 19 MOTHER Allergies and Home Medications Allergies Coded Allergies: donepezil (Verified Allergy, Unknown, disoriented, stroke like symptoms, 03/23/19) fentanyl (Verified Adverse Reaction, Mild, 03/23/19) MAKES HER HALLUCINATE Home Medications Acetaminophen 325 Mg Tablet, 650 MG PO Q4H PRN for PAIN-MILD, (Reported) Amlodipine Besylate 10 Mg Tablet, 10 MG PO DAILY, (Reported) Atorvastatin Calcium 80 Mg Tablet, 80 MG PO DAILY, (Reported) Brimonidine Tartrate 5 Ml Btl, 1 DROP OU BID, (Reported) Bupropion HCl 300 Mg Tab.er.24h, 300 MG PO DAILY, (Reported) LAST FILLED 07-05-2019 #30 Cefdinir 300 Mg Capsule, 300 MG PO BID Prescribed by: LINDSAY WILLIS on 09/04/19 1052 Desvenlafaxine Succinate 50 Mg Tab.er.24h, 50 MG PO HS, (Reported) Diclofenac Sodium 100 Gm Gel..gram., 2 GM TOP QID PRN for JOINT PAIN, (Reported) Dronedarone HCl 400 Mg Tablet, 400 MG PO BID Prescribed by: SALAS GALEANO on 03/27/19 1419 Gabapentin 300 Mg Capsule, 300 MG PO BID, (Reported) Latanoprost 2.5 Ml Drops, 1 DROP OU HS, (Reported) Magnesium Oxide 400 Mg Tablet, 400 MG PO BID, (Reported) Metoprolol Succinate 100 Mg Tab.er.24h, 100 MG PO DAILY, (Reported) LAST FILLED 07-05-2019 #30 Pantoprazole Sodium 40 Mg Tablet.dr, 40 MG PO DAILY, (Reported) LAST FILLED 03-30-2019 #90 Rivaroxaban 20 Mg Tablet, 20 MG PO DAILY Prescribed by: DAPHNIE CALDERÓN on 09/04/19 1225 Patient Home Medication List Home Medication List Reviewed: Yes Physical Exam-Cardiology Physical Exam Vital Signs/I&O 09/04/19 09/04/19 09/04/19 09/04/19 04:00 07:45 08:00 08:35 Temp 36.9 37.1 Pulse 62 57 64 Resp 16 20 B/P (MAP) 137/73 (94) 147/74 (98) Pulse Ox 93 95 O2 Delivery Room Air Room Air Room Air 09/04/19 09/04/19 11:37 11:42 Temp 36.4 Pulse 51 56 Resp 18 B/P (MAP) 105/66 (79) Pulse Ox 100 O2 Delivery Room Air 09/04/19 00:00 Intake Total 1342 ml Output Total 350 ml Balance 992 ml Capillary Refill : Less Than 3 Seconds Constitutional: appears stated age, AAO x 3; No apparent distress; well- developed, well-nourished HEENT: PERRL; No discharge; hearing is well preserved, oral hygience is good; No ulceration, No xanthelasmas are seen Neck: No carotid bruit; carotid pulses are 2 + bilaterally Respiratory: chest is bilaterally symmetric, lungs clear to auscultation Cardiovascular: regular rate-rhythm, S1 and S2; No diastolic murmur, No systolic murmur Gastrointestinal: soft, audible bowel sounds; No spleenomegaly Rectal: deferred Extremities: normal range of motion, non-tender, normal inspection; No clubbing, No cyanosis; no lower extremity edema bilateral; No significant edema Neurologic/Psychiatric: no motor/sensory deficits, alert, normal mood/affect, oriented x 3, power is 5/5 both on sides Skin: normal color, warm/dry Lymphatic: no adenopathy (neck, axilla or groin) Data Review Labs Laboratory Tests 09/04/19 04:02: White Blood Count 2.8L, Red Blood Count 3.77L, Hemoglobin 10.9L, Hematocrit 36, Mean Corpuscular Volume 94, Mean Corpuscular Hemoglobin 29, Mean Corpuscular Hemoglobin Concent 31L, Red Cell Distribution Width 14.9H, Platelet Count 74L, Mean Platelet Volume 11.2H, Neutrophils (%) (Auto) 34L, Lymphocytes (%) (Auto) 46H, Monocytes (%) (Auto) 18H, Eosinophils (%) (Auto) 2, Basophils (%) (Auto) 1, Neutrophils # (Auto) 0.9L, Lymphocytes # (Auto) 1.3, Monocytes # (Auto) 0.5, Eosinophils # (Auto) 0.1, Basophils # (Auto) 0.0, Activated Partial Thromboplast Time 66H, Sodium Level 143, Potassium Level 3.4L, Chloride Level 110H, Carbon Dioxide Level 22, Anion Gap 11, Blood Urea Nitrogen 13, Creatinine 1.55H, Estimat Glomerular Filtration Rate 33, BUN/Creatinine Ratio 8, Glucose Level 85, Calcium Level 9.0, Phosphorus Level 2.6, Magnesium Level 1.8 Microbiology 08/31/19 Blood Culture - Preliminary, Resulted No growth 08/31/19 Urine Culture - Final, Complete NO GROWTH A/P-Cardiology Assessment/Admission Diagnosis Hypoxemia UTI PAF HTN Plan Transient hypoxemia, improved. Currently on room air. Patient with elevated d- dimer. Currently on heparin gtt. COVID-19 pending UTI- presented with fever, vomiting, diarrhea. Currently on antibiotics, improving, continue to monitor. peripheral arterial disease, last ALYSA was done in May 2015 and was within normal limits. Continue to monitor. History of multiple CVA, last episode occurred on December 2016. Maintained on aspirin and Plavix. Hypercoagulable state workup has been negative, patient had normal protein C, protein S and, antithrombin III. Her factor V Leiden was normal, in a was less than 1-80, anticardiolipin antibody were negative, factor II mutant was also negative. 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 Most recent 2-D echocardiogram revealed normal EF with dilated left atrium. Atrial fibrillation detected on Linq implantation. Was maintained on Xarelto as outpatient until recently. Patient unsure why she is off medication. Paroxysmal atrial fibrillation- mainly short episodes of atrial fibrillation per Linq interrogation. No recent afib on loop recorder. Not on oral anticoag ulation Hypertension, continue to monitor blood pressure. Hyperlipidemia, lipid profile done in March 2018 showing total cholesterol 166, HDL 60, triglyceride 110, LDL 85. Continue to monitor [id number] showed intermediate metabolizer. Mild bilateral carotid stenosis, last ultrasound was done in December 2017, continue to monitor History of syncope, reporting improvement. No further syncopal episodes were reported History of single kidney with chronic renal insufficiency, followed and monitored by Dr. Travis. History of osteoarthritis, rheumatoid arthritis. History of fibromyalgia. History of depression. Thank you for your consultation. Please call me if you have any questions. Arthur Fields MD, FACP, FACC, FSCAI, FHRS, CCDS Interventional Cardiology Cardiac Electrophysiology Vascular Medicine and Endovascular Interventions Clinical Quality Measures DVT/VTE Risk/Contraindication: Risk Factor Score Per Nursin RFS Level Per Nursing on Admit: 4+=Very High Faye FIELDS MD Sep 01, 2019 21:20
[2019-09-01] MEDS ORDERED: MAGNESIUM OXIDE (MAG-OX)400 MG TAB ONE (21:57)
[2019-09-01] MEDS: BRIMONIDINE 0.2% (ALPHAGAN) OPHTH SOLN 5 ML BTL OU SCH (22:01)
[2019-09-01] MEDS: LATANOPROST 0.005% (XALATAN) OPHTH SOLN 2.5 ML OU SCH (22:01)
[2019-09-01] MEDS: GABAPENTIN 300 MG (NEURONTIN) CAP PO SCH (22:02)
[2019-09-01] MEDS: DRONEDARONE TABLET 400 MG TABLET PO SCH (22:02)
[2019-09-01] MEDS: ACETAMINOPHEN 325 MG TABLET PO PRN (22:02)
[2019-09-02 04:00] VITALS: BP 129/70
[2019-09-02] MEDS: HEParin DRIP 25000 UNIT/500ML 500 ML IV SCH (04:08)
[2019-09-02 05:47] LABS: BASOPHILS % (AUTO) 1 % (0-10); EOSINOPHILS % (AUTO) 1 % (0-10); HEMATOCRIT 38 % (35-52); HEMOGLOBIN 11.9 G/DL (11.5-16.0); LYMPHOCYTES # (AUTO) 0.6 X 10^3 (1.0-4.0); LYMPHOCYTES % (AUTO) 26 % (12-44); MEAN CORPUSCULAR HEMOGLOBIN 29 PG (25-34); MEAN CORPUSCULAR HGB CONC 31 G/DL (32-36); MEAN CORPUSCULAR VOLUME 94 FL (80-99); MONOCYTES # (AUTO) 0.3 X 10^3 (0.0-1.0); MONOCYTES % (AUTO) 15 % (0-12); NEUTROPHILS # (AUTO) 1.3 X 10^3 (1.8-7.8); NEUTROPHILS % (AUTO) 58 % (42-75); PLATELET COUNT 89 10^3/uL (130-400); RED CELL DISTRIBUTION WIDTH 14.6 % (10.0-14.5); WHITE BLOOD COUNT 2.3 10^3/uL (4.3-11.0)
[2019-09-02 05:53] LABS: POTASSIUM 3.6 MMOL/L (3.6-5.0)
[2019-09-02 05:55] LABS: CALCIUM 9.3 MG/DL (8.5-10.1)
[2019-09-02 05:59] LABS: CREATININE SERUM 1.38 MG/DL (0.60-1.30); PHOSPHORUS 3.1 MG/DL (2.3-4.7)
[2019-09-02 06:01] LABS: MAGNESIUM 1.9 MG/DL (1.6-2.4)
--- NOTE | 2019-09-02 06:14 | Progress Note - Hospitalist ---
Subjective HPI/CC On Admission Date Seen by Provider: Sep 02, 2019 Time Seen by Provider: 09:30 CC: Hypoxia HPI: This is a 74yoWF clinic patient of [facility] known to me from prior CVA admit who lives with granddaughter at home who presented to the ER yesterday after 4 days of N/V. Hypoxia was noted and dehydration on labs and exam so she was swabbed for COVID and admitted to ICU due to elevated d-dimer and unable to evaluate with CT angiogram due to baseline creatinine 1.8. Patient Subjective/Events-last exam Patient doing well Sitting in chair No pain reported O2 off IV Abx tolerated Hep gtts maintained PT OT tomorrow Review of Systems General: Fatigue Pulmonary: Dyspnea Focused Exam Lactate Level 08/31/19 17:00: Lactic Acid Level 1.06 08/31/19 22:19: Lactic Acid Level 1.91 Objective Exam Vital Signs Vital Signs Date Time Temp Pulse Resp B/P (MAP) Pulse Ox O2 Delivery O2 Flow Rate FiO2 09/02/19 09:00 99 Room Air 2.00 100 09/02/19 08:00 36.1 66 18 160/87 (111) Capillary Refill : Less Than 3 Seconds General Appearance: No Apparent Distress, WD/WN, Chronically ill Respiratory: Chest Non Tender, Lungs Clear, Normal Breath Sounds, No Accessory Muscle Use, No Respiratory Distress Cardiovascular: Regular Rate, Rhythm, No Edema, No Gallop, No JVD, No Murmur, Normal Peripheral Pulses Neurologic/Psychiatric: Alert, Oriented x3, Disoriented, Motor Weakness (left) Results/Procedures Lab Laboratory Tests 09/02/19 05:24 Patient resulted labs reviewed. Assessment/Plan Assessment and Plan Assess & Plan/Chief Complaint Assessment: Hypoxia Elevated d-dimer on Heparin until VQ scan performed Bronchitis acute bacterial type placed on Cefepime empirically Acute on chronic renal failure h/o CVA with left sided weakness s/p rehab 04/2018 PAF Depression Anxiety Former smoker Loop recorder in place Plan: Appreciate Pulmo and Cards Home meds O2 Nebs COVID-19 negative VQ and USG Tuesday Hep gtts Diagnosis/Problems Diagnosis/Problems (1) Hypoxia (2) Bronchitis (3) Cerebrovascular accident (CVA) with left hemiparesis Status: Chronic (4) Hypertension Status: Chronic (5) Paroxysmal atrial fibrillation Status: Chronic (6) Hyperlipidemia Status: Chronic (7) Depression Status: Chronic (8) CVA, old, facial weakness Status: Chronic Clinical Quality Measures DVT/VTE Risk/Contraindication: Risk Factor Score Per Nursin RFS Level Per Nursing on Admit: 4+=Very High SANDY WILLIS DO Sep 02, 2019 06:13
[2019-09-02 08:00] VITALS: BP 160/87
[2019-09-02] MEDS: ASPIRIN E.C. 81 MG (ECOTRIN) TAB PO SCH (08:53)
[2019-09-02] MEDS: BRIMONIDINE 0.2% (ALPHAGAN) OPHTH SOLN 5 ML BTL OU SCH ×3 (08:53→20:13)
[2019-09-02] MEDS: DRONEDARONE TABLET 400 MG TABLET PO SCH ×2 (08:53→20:13)
[2019-09-02] MEDS: PANTOPRAZOLE 40 MG (PROTONIX) TAB PO SCH (08:53)
[2019-09-02] MEDS: buPROPion SR 150 MG (WELLBUTRIN SR) TAB PO SCH ×2 (08:53→20:13)
[2019-09-02] MEDS: meTOprolol SUCCINATE 100 MG (TOPROL XL) TAB PO SCH (08:53)
[2019-09-02] MEDS: MAGNESIUM OXIDE (MAG-OX)400 MG TAB PO SCH ×2 (08:53→20:13)
[2019-09-02] MEDS: GABAPENTIN 300 MG (NEURONTIN) CAP PO SCH ×2 (08:53→20:13)
[2019-09-02] MEDS: LACTATED RINGERS 1,000 ML IV SCH (09:00)
--- NOTE | 2019-09-02 11:00 | NUR ---
PATIENT TO OR AT THIS TIME VIA CART ACCOMPANIED BY OR STAFF. THIS RN WILL ASSUME CARE OF THIS PATIENT WHEN SHE ARRIVES BACK TO ROOM 416-1.
[2019-09-02 12:00] VITALS: BP 136/76
--- NOTE | 2019-09-02 13:20 | Progress Note - Surgery ---
Subjective Time Seen by a Provider: 11:37 Subjective/Events-last exam Pt seen and examined, states her belly is "achey" and reports BM. However, nurse states no BM's have been recorded and doesn't look like material for culture has been obtained. Review of Systems General: Fatigue, Malaise Pulmonary: No Dyspnea, No Cough Cardiovascular: No: Chest Pain, Palpitations Gastrointestinal: Abdominal Pain; No: Nausea, Vomiting Focused Exam Lactate Level 08/31/19 17:00: Lactic Acid Level 1.06 08/31/19 22:19: Lactic Acid Level 1.91 Objective Exam Vital Signs Date Time Temp Pulse Resp B/P (MAP) Pulse Ox O2 Delivery O2 Flow Rate FiO2 09/02/19 09:00 99 Room Air 2.00 100 09/02/19 08:00 36.1 66 18 160/87 (111) 99 Room Air 09/02/19 04:00 36.7 56 20 129/70 (89) 95 Room Air 09/01/19 23:54 36.5 65 20 131/75 (93) 91 Room Air 09/01/19 21:00 Room Air 09/01/19 20:04 37.1 75 20 141/67 (91) 95 Room Air I & O 09/02/19 07:00 Intake Total 2110 ml Output Total 800 ml Balance 1310 ml Capillary Refill : Less Than 3 Seconds General Appearance: No Apparent Distress, Chronically ill HEENT: PERRL/EOMI, Pharynx Normal Respiratory: Lungs Clear, Normal Breath Sounds Cardiovascular: Regular Rate, Rhythm, No Murmur Gastrointestinal: soft, no organomegaly; No distended; tenderness (mild diffusely) Neurologic/Psychiatric: No Motor/Sensory Deficits (left sided weakness) Results Lab Laboratory Tests 09/01/19 18:51: Activated Partial Thromboplast Time 73H 09/02/19 05:24: Activated Partial Thromboplast Time 120*H, White Blood Count 2.3L, Red Blood Count 4.05L, Hemoglobin 11.9, Hematocrit 38, Mean Corpuscular Volume 94, Mean Corpuscular Hemoglobin 29, Mean Corpuscular Hemoglobin Concent 31L, Red Cell Distribution Width 14.6H, Platelet Count 89L, Mean Platelet Volume 11.0H, Neutrophils (%) (Auto) 58, Lymphocytes (%) (Auto) 26, Monocytes (%) (Auto) 15H, Eosinophils (%) (Auto) 1, Basophils (%) (Auto) 1, Neutrophils # (Auto) 1.3L, Lymphocytes # (Auto) 0.6L, Monocytes # (Auto) 0.3, Eosinophils # (Auto) 0.0, Basophils # (Auto) 0.0, Sodium Level 142, Potassium Level 3.6, Chloride Level 111H, Carbon Dioxide Level 20L, Anion Gap 11, Blood Urea Nitrogen 16, Creatinine 1.38H, Estimat Glomerular Filtration Rate 37, BUN/Creatinine Ratio 12, Glucose Level 80, Calcium Level 9.3, Phosphorus Level 3.1, Magnesium Level 1.9 09/02/19 10:50: Activated Partial Thromboplast Time 97H Microbiology 08/31/19 Blood Culture - Preliminary, Resulted No growth 08/31/19 Urine Culture - Final, Complete NO GROWTH Assessment/Plan Assessment/Plan Assessment/Plan Abdominal Pain Diarrhea Transient Hypoxia Pt still has not had a BM and therefore unable to obtain sample for stool studies. Will continue to monitor her abdominal pain. Diet as tolerated and max medical care. Clinical Quality Measures DVT/VTE Risk/Contraindication: Risk Factor Score Per Nursin RFS Level Per Nursing on Admit: 4+=Very High JERICA CONTRERAS DO Sep 02, 2019 13:20
--- NOTE | 2019-09-02 13:57 | Cardiology Progress Note ---
Cardiology SOAP Progress Note Subjective: Feeling better today. Objective: I&O/Vital Signs 09/04/19 09/04/19 09/04/19 09/04/19 04:00 07:45 08:00 08:35 Temp 36.9 37.1 Pulse 62 57 64 Resp 16 20 B/P (MAP) 137/73 (94) 147/74 (98) Pulse Ox 93 95 O2 Delivery Room Air Room Air Room Air 09/04/19 09/04/19 11:37 11:42 Temp 36.4 Pulse 51 56 Resp 18 B/P (MAP) 105/66 (79) Pulse Ox 100 O2 Delivery Room Air 09/04/19 00:00 Intake Total 1342 ml Output Total 350 ml Balance 992 ml Weight (Pounds): 170 Weight (Ounces): 1.6 Weight (Calculated Kilograms): 77.065013 Constitutional: AAO x 3 Respiratory: chest is bilaterally symmetric, lungs clear to auscultation Cardiovascular: regular rate-rhythm, S1 and S2 Gastrointestional: soft, audible bowel sounds Extremities: no lower extremity edema bilateral Neurologic/Psychiatric: no motor/sensory deficits, alert, normal mood/affect, oriented x 3 Skin: normal color, warm/dry Results/Procedures: Labs Laboratory Tests 09/04/19 04:02: White Blood Count 2.8L, Red Blood Count 3.77L, Hemoglobin 10.9L, Hematocrit 36, Mean Corpuscular Volume 94, Mean Corpuscular Hemoglobin 29, Mean Corpuscular Hemoglobin Concent 31L, Red Cell Distribution Width 14.9H, Platelet Count 74L, Mean Platelet Volume 11.2H, Neutrophils (%) (Auto) 34L, Lymphocytes (%) (Auto) 46H, Monocytes (%) (Auto) 18H, Eosinophils (%) (Auto) 2, Basophils (%) (Auto) 1, Neutrophils # (Auto) 0.9L, Lymphocytes # (Auto) 1.3, Monocytes # (Auto) 0.5, Eosinophils # (Auto) 0.1, Basophils # (Auto) 0.0, Activated Partial Thromboplast Time 66H, Sodium Level 143, Potassium Level 3.4L, Chloride Level 110H, Carbon Dioxide Level 22, Anion Gap 11, Blood Urea Nitrogen 13, Creatinine 1.55H, Estimat Glomerular Filtration Rate 33, BUN/Creatinine Ratio 8, Glucose Level 85, Calcium Level 9.0, Phosphorus Level 2.6, Magnesium Level 1.8 Microbiology 08/31/19 Blood Culture - Preliminary, Resulted No growth 08/31/19 Urine Culture - Final, Complete NO GROWTH A/P: Assessment/Dx: Acute respiratory failure, Paroxysmal atrial fibrillation, Previous history of multiple strokes, Seizure disorder. Plan: Transient hypoxemia, improved. Currently on room air. Patient with elevated d- dimer. Defer to the primary team. Currently on heparin gtt. COVID-19 negative. UTI- presented with fever, vomiting, diarrhea. Currently on antibiotics, improving, continue to monitor. peripheral arterial disease, last ALYSA was done in May 2015 and was within normal limits. Continue to monitor. History of multiple CVA, last episode occurred on December 2016. Maintained on aspirin and Plavix. Hypercoagulable state workup has been negative, patient had normal protein C, protein S and, antithrombin III. Her factor V Leiden was normal, in a was less than 1-80, anticardiolipin antibody were negative, factor II mutant was also negative. 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 Most recent 2-D echocardiogram revealed normal EF with dilated left atrium. Atrial fibrillation detected on Linq implantation. Was maintained on Xarelto as outpatient until recently. Patient unsure why she is off medication. Paroxysmal atrial fibrillation- mainly short episodes of atrial fibrillation per Linq interrogation. No recent afib on loop recorder. Not on oral anticoagulation. Hypertension, continue to monitor blood pressure. Hyperlipidemia, lipid profile done in March 2018 showing total cholesterol 166, HDL 60, triglyceride 110, LDL 85. Continue to monitor [id number] showed intermediate metabolizer. Mild bilateral carotid stenosis, last ultrasound was done in December 2017, continue to monitor History of syncope, reporting improvement. No further syncopal episodes were reported History of single kidney with chronic renal insufficiency, followed and monitored by Dr. Travis. History of osteoarthritis, rheumatoid arthritis. History of fibromyalgia. History of depression. Thank you for your consultation. Please call me if you have any questions. Arthur Fields MD, FACP, FACC, FSCAI, FHRS, CCDS Interventional Cardiology Cardiac Electrophysiology Vascular Medicine and Endovascular Interventions Focused Exam Lactate Level Faye FIELDS MD Sep 02, 2019 13:57
[2019-09-02] MEDS: ACETAMINOPHEN 325 MG TABLET PO PRN ×2 (15:28→20:13)
[2019-09-02 16:09] VITALS: BP 102/64
[2019-09-02] MEDS ORDERED: CEFEPIME 2 GM (MAXIPIME) VIAL ONE (19:40)
[2019-09-02] MEDS ORDERED: WATER (STERILE) FOR INJECTION 20 ML ONE (19:40)
[2019-09-02 19:57] VITALS: BP 125/73
[2019-09-02] MEDS: CEFEPIME 2,000 MG/SWFI 20 ML IV PUSH IV SCH ×2 (20:13)
[2019-09-02] MEDS: LATANOPROST 0.005% (XALATAN) OPHTH SOLN 2.5 ML OU SCH (20:13)
[2019-09-03] VITALS: BP 148/70
[2019-09-03] MEDS: LACTATED RINGERS 1,000 ML IV SCH ×2 (00:38→14:25)
[2019-09-03 04:00] VITALS: BP 151/82
[2019-09-03 05:54] LABS: BASOPHILS % (AUTO) 2 % (0-10); EOSINOPHILS # (AUTO) 0.1 10^3/uL (0.0-0.3); EOSINOPHILS % (AUTO) 3 % (0-10); HEMATOCRIT 36 % (35-52); HEMOGLOBIN 11.2 G/DL (11.5-16.0); LYMPHOCYTES # (AUTO) 0.9 X 10^3 (1.0-4.0); LYMPHOCYTES % (AUTO) 36 % (12-44); MEAN CORPUSCULAR HEMOGLOBIN 30 PG (25-34); MEAN CORPUSCULAR HGB CONC 31 G/DL (32-36); MEAN CORPUSCULAR VOLUME 94 FL (80-99); MEAN PLATELET VOLUME 11.1 FL (7.4-10.4); MONOCYTES # (AUTO) 0.4 X 10^3 (0.0-1.0); MONOCYTES % (AUTO) 17 % (0-12); NEUTROPHILS % (AUTO) 42 % (42-75); PLATELET COUNT 68 10^3/uL (130-400); RED CELL DISTRIBUTION WIDTH 14.6 % (10.0-14.5); WHITE BLOOD COUNT 2.4 10^3/uL (4.3-11.0)
[2019-09-03 06:17] LABS: CREATININE SERUM 1.63 MG/DL (0.60-1.30); MAGNESIUM 1.9 MG/DL (1.6-2.4); PHOSPHORUS 2.6 MG/DL (2.3-4.7); POTASSIUM 3.7 MMOL/L (3.6-5.0)
--- NOTE | 2019-09-03 07:12 | Pulmonary Progress Note ---
Subjective Time Seen by a Provider: 07:11 Sepsis Event Evaluation Height, Weight, BMI Height: 5'4.00" Weight: 170lbs. 1.6oz. 77.792840io; 29.72 BMI Method:Stated Focused Exam Lactate Level 08/31/19 17:00: Lactic Acid Level 1.06 08/31/19 22:19: Lactic Acid Level 1.91 Exam Exam Vital Signs Date Time Temp Pulse Resp B/P (MAP) Pulse Ox O2 Delivery O2 Flow Rate FiO2 09/03/19 04:00 36.8 52 18 151/82 (105) 97 Room Air 09/03/19 00:00 36.3 56 18 148/70 (96) 95 Room Air 09/02/19 20:10 Room Air 09/02/19 19:57 36.6 55 18 125/73 (90) 97 Room Air 09/02/19 16:09 36.9 57 18 102/64 (77) 94 Room Air 09/02/19 12:00 36.1 56 16 136/76 (96) 93 Room Air 09/02/19 09:00 99 Room Air 2.00 100 09/02/19 08:00 36.1 66 18 160/87 (111) 99 Room Air I & O 09/03/19 07:00 Intake Total 3242 ml Output Total 1000 ml Balance 2242 ml Height & Weight Height: 5'4.00" Weight: 170lbs. 1.6oz. 77.768990xt; 29.72 BMI Method:Stated General Appearance: No Apparent Distress, WD/WN, Chronically ill HEENT: PERRL/EOMI, Pharynx Normal Respiratory: Chest Non Tender, Lungs Clear, Normal Breath Sounds, No Accessory Muscle Use, No Respiratory Distress Cardiovascular: Regular Rate, Rhythm, No Edema, No Gallop, No JVD, No Murmur, Normal Peripheral Pulses Capillary Refill: Less Than 3 Seconds Gastrointestinal: soft, no organomegaly; No distended; tenderness (mild diffusely) Neurologic/Psychiatric: Alert, Oriented x3, Disoriented, Motor Weakness (left) Results Lab Laboratory Tests 09/02/19 05:24 09/03/19 05:22 Assessment/Plan Assessment/Plan Mild hypoxia -COVID is pending -Elevated Ddimer on admission -- Doubt PE -Check V/Q scan and dopplers bilateral today -Currently on Hep gtt. -No on RA UTI -Ceron cultures -Cefepime Renal failure -IVF LR 75cc/hr chronic dementia -Lives at home Pt is doing well. will transfer to 4th floor. AMELIA YI DO Sep 03, 2019 07:12
[2019-09-03 08:08] VITALS: BP 157/86
[2019-09-03] MEDS ORDERED: GABA300C PO (09:20)
[2019-09-03] MEDS ORDERED: PANT40TA2 PO (09:22)
--- NOTE | 2019-09-03 09:23 | NUR ---
SPOKE WITH THE PT- SHE WANTED ME TO CALL HER DAUGHTER [facility] AND SPEAK WITH HER ABOUT HER MEDICATIONS SINCE SHE TAKES CARE OF THEM. I CALLED [facility] AND WENT THRU THE EXT MED HISTORY TO COMPLETE THE MED REC WELLBUTRIN 30MG (LAST FILLED 07-05-2019 #30) GABAPENTIN 300MG (LAST FILLED 07-05-2019 #30) METOPROLOL ER 100MG (LAST FILLED 07-05-2019 #30) PROTONIX 40MF ( LAST FILLED 03-30-2019 #90) AND AMLODIPINE 10MG (LAST FILLED 04-29-2019) ARE ALL PAST DUE ON FILLS AND I DID DOCUMENT THIS ON THE MED REC- HOWEVER THE [facility] SAID THE PT HAD EXTRA MEDICATION AT HOME DUE TO THE PT BEING IN A [place] FOR 3 MONTHS. OTC MEDS: ASPIRIN 81 TYLENOL MAGNESIUM
--- NOTE | 2019-09-03 09:51 | Physical Therapy Evaluation ---
PT Evaluation-General Medical Diagnosis Admission Date Aug 31, 2019 at 19:00 Medical Diagnosis: hypoxia/N/V/D Onset Date: Aug 31, 2019 Therapy Diagnosis Therapy Diagnosis: debility/weakness Height/Weight Height (Feet): 5 Height (Inches): 4.00 Weight (Pounds): 170 Weight (Ounces): 1.6 Precautions Precautions/Isolations: Fall Prevention, Standard Precautions Referral Physician: Kenyatta Reason for Referral: Evaluation/Treatment Medical History Pertinent Medical History: Atrial Fib, Arthritis, CAD, CVA, GERD, HTN, PVD, Renal Insufficiency Current History ED secondary to diarrhea/weakness and fever Reviewed History: Yes Social History Home: Single Level Current Living Status: Other Family Prior Prior Level of Function SCALE: Activities may be completed with or without assistive devices. 8-Cpvxlwjfpg-hnfnqhm completes the activity by him/herself with no assistance from a helper. 5-Set-up or Clean-up Assistance-helper sets up or cleans up; patient completes activity. [place] assists only prior to or following the activity. 4-Supervision or Touching Assistance-helper provides verbal cues and/or touching/steadying and/or contact guard assistance as patient completes activity. Assistance may be provided throughout the activity or intermittently. 3-Partial/Moderate Assistance-helper does LESS THAN HALF the effort. [place] lifts, holds or supports trunk or limbs, but provides less than half the effort. 2-Substantial/Maximal Assistance-helper does MORE THAN HALF the effort. [place] lifts or holds trunk or limbs and provides more than half the effort. 6-Lojmhcliw-jvplrw does ALL the effort. Patient does none of the effort to complete the activity. Or, the assistance of 2 or more helpers is required for the patient to complete the activity. If activity was not attempted, code reason: 7-Patient Refused. 9-Not Applicable-not attempted and the patient did not perform the activity before the current illness, exacerbation or injury. 10-Not Attempted due to Environmental Limitations-(lack of equipment, weather restraints, etc.). 88-Not Attempted due to Medical Conditions or Safety Concerns. Bed Mobility: 5 Transfers (B,C,W/C): 5 Gait: 5 Indoor Mobility (Ambulation): Needed Some Help Prior Devices Use: Walker PT Evaluation-Current Subjective Patient agrees to PT. No c/o. Pain Numeric Pain Scale: 0-No Pain Location: No Pain Reported Objective Patient Orientation: Confused Attachments: IV ROM/Strength ROM Lower Extremities bilateral LE WFL Strength Lower Extremities left LE 3+/5 grossly/right LE 4/5 grossly Integumentary/Posture Integumentary refer to nursing notes Bowel Incontinence: No Bladder Incontinence: No Posture trunk flexed posture due to inactivity PLOF. Neuromuscular (Tone, Coordination, Reflexes) grossly intact Sensory Vision: Functional Hearing: Functional Sensation Right Lower Extremit: Intact Sensation Left Lower Extremity: Intact Transfers Roll Left to Right (QC): 5 Lying to Sitting/Side of Bed(Q: 5 Sit to Stand (QC): 5 Chair/Hbv-pn-Ljamm Xfer(QC): 5 Gait Does the Patient Walk?: Yes Mode of Locomotion: Walk Anticipated Mode of Locomotion: Walk Walk 10 feet (QC): 5 Walk 50 ft with 2 Turns(QC): 5 Walk 150 ft (QC): 5 Gait Assistive Device: FWW Comments/Gait Description extended UE's with FWW use/diminished safety awareness and shuffle gait sequence Balance Sitting Static: Normal Sitting Dynamic: Normal Standing Static: Fair Standing Dynamic: Fair Assessment/Needs 74 y.o. female, will benefit from skilled PT to address functional strength and mobility to improve current LOF to safely return to home with family at maximum LOF. Rehab Potential: Fair PT Half-Way Goals Half-Way Goals PT Half-Way Goals Time Frame: Sep 15, 2019 Roll Left & Right (QC): 5 Sit to Lying (QC): 5 Lying-Sitting on Side/Bed(QC): 5 Sit to Stand (QC): 5 Chair/Rhs-ar-Ggrer Xfer(QC): 5 Toilet Transfer (QC): 5 Does the Patient Walk: Yes Walk 10 feet (QC): 5 Walk 50ft with 2 Turns (QC): 5 Walk 150 ft (QC): 5 PT Plan Problem List Problem List: Activity Tolerance, Functional Strength, Safety, Gait Treatment/Plan Treatment Plan: Continue Plan of Care Treatment Plan: Bed Mobility, Education, Functional Activity Sarah, Functional Strength, Gait, Safety, Therapeutic Exercise, Transfers Treatment Duration: Sep 15, 2019 Frequency: 6 times per week Estimated Hrs Per Day: .25 hour per day Patient and/or Family Agrees t: Yes Time/GCodes Time In: 835 Time Out: 847 Total Billed Treatment Time: 12 Total Billed Treatment 1 visit EVModC 12 min FELICITA SINGH PT Sep 03, 2019 09:51
[2019-09-03] MEDS: buPROPion SR 150 MG (WELLBUTRIN SR) TAB PO SCH ×2 (10:00→20:00)
[2019-09-03] MEDS: PANTOPRAZOLE 40 MG (PROTONIX) TAB PO SCH (10:00)
[2019-09-03] MEDS: GABAPENTIN 300 MG (NEURONTIN) CAP PO SCH ×2 (10:00→20:00)
[2019-09-03] MEDS: DRONEDARONE TABLET 400 MG TABLET PO SCH ×2 (10:00→20:00)
[2019-09-03] MEDS: MAGNESIUM OXIDE (MAG-OX)400 MG TAB PO SCH ×2 (10:00→20:00)
[2019-09-03] MEDS: ASPIRIN E.C. 81 MG (ECOTRIN) TAB PO SCH (10:00)
[2019-09-03] MEDS: meTOprolol SUCCINATE 100 MG (TOPROL XL) TAB PO SCH (10:00)
[2019-09-03] MEDS: BRIMONIDINE 0.2% (ALPHAGAN) OPHTH SOLN 5 ML BTL OU SCH ×2 (10:01→20:01)
--- NOTE | 2019-09-03 10:17 | Occupational Therapy Eval ---
OT Evaluation-General/PLF Medical Diagnosis Admission Date Aug 31, 2019 at 19:00 Medical Diagnosis: hypoxia/N/V/D Onset Date: Aug 31, 2019 Therapy Diagnosis Therapy Diagnosis: Decreased ADL fx Height/Weight Height (Feet): 5 Height (Inches): 4.00 Weight (Pounds): 170 Weight (Ounces): 1.6 Precautions Precautions/Isolations: Fall Prevention, Standard Precautions Referral Physician: Kenyatta Referral Reason: Activity Tolerance, Self Care, Evaluation/Treatment, Strengthening/ROM Medical History Pertinent Medical History: Atrial Fib, Arthritis, CAD, CVA, GERD, HTN, PVD, Renal Insufficiency Current History ER for 4 days of nausea/ vomiting, hypoxic and dehydrated. Reviewed History: Yes Social History Home: Single Level Current Living Status: Other Family (daughter's assist with granddaughter support during day) Entry Into Home: Stairs With Railing Steps Into Home: 3 ADL-Prior Level of Function SCALE: Activities may be completed with or without assistive devices. 8-Kjhyttodgj-ybbluzb completes the activity by him/herself with no assistance from a helper. 5-Set-up or Clean-up Assistance-helper sets up or cleans up; patient completes activity. [place] assists only prior to or following the activity. 4-Supervision or Touching Assistance-helper provides verbal cues and/or touching/steadying and/or contact guard assistance as patient completes activity. Assistance may be provided throughout the activity or intermittently. 3-Partial/Moderate Assistance-helper does LESS THAN HALF the effort. [place] lifts, holds or supports trunk or limbs, but provides less than half the effort. 2-Substantial/Maximal Assistance-helper does MORE THAN HALF the effort. [place] lifts or holds trunk or limbs and provides more than half the effort. 0-Szplelbdf-pbvdxl does ALL the effort. Patient does none of the effort to complete the activity. Or, the assistance of 2 or more helpers is required for the patient to complete the activity. If activity was not attempted, code reason: 7-Patient Refused. 9-Not Applicable-not attempted and the patient did not perform the activity before the current illness, exacerbation or injury. 10-Not Attempted due to Environmental Limitations-(lack of equipment, weather restraints, etc.). 88-Not Attempted due to Medical Conditions or Safety Concerns. ADL PLOF Comments Pt states use of walker through home, assist needed with bathing/ toileting and IADL tasks from daughter. Self Care: Independent Functional Cognition: Independent DME/Equipment: Bath Chair, Grab Bars, Shower, Tall Toilet DME/Equipment Comments [employer] Occupation: retired OT Current Status Subjective Pt seen in recliner post-BM. Pt denies pain, agrees to OT eval/ treat. Pt and nursing home manager state assist with toilet hygiene. Mental Status/Objective Patient Orientation: Person, Place, Situation Attachments: IV Current Dentures/Partials: Yes Hand Dominance: Right Upper Extremity ROM WFL BUE L slightly less AROM due to previous CVA/ TIA Upper Extremity Coordination WFL BUE (delayed LUE) Upper Extremity Sensation WFL per pt. Upper Extremity Strength WFL BUE Edema: none noted. ADL-Treatment Eating (QC): 6 Toileting Hygiene (QC): 2 Other Treatments Per pt, pt completed BM, requires CGA to commode and max A for bottom hygiene. Pt states at home daughter comes to assist with BM hygiene and showering tasks. Pt states ability to dress self, daughter assists with meal/ med/ laundry prep. Pt states granddaughter (11 y/o) is there through day when she babysits, states she assists with some tasks. Pt completes sit to stand with SBA, stands at walker level to complete UB balance/ ROM activities. Pt able to maintain balance while alternating shoulder flexion BUE. Pt sits, education provided on UE strengthening tasks, pt completes 2/2 exercises with min cues/ assist. Pt educated on continuation of therapy while here to address strength/ balance and ADL fx. Pt agrees. All needs met, call light in reach, nursing present end of session. Education OT Patient Education: Correct positioning, Exercise program, Home exercise program, Modified ADL techniques, Purpose of tx/functional activities, Safety issues Teaching Recipient: Patient Teaching Methods: Demonstration, Discussion Response to Teaching: Verbalize Understanding, Return Demonstration OT Mcfp Goals Decorative Greens Cutter Goals Time Frame: Sep 10, 2019 Eating (QC): 6 Oral Hygiene (QC): 6 Toileting Hygiene (QC): 3 Shower/Bathe Self (QC): 3 Upper Body Dressing (QC): 6 Lower Body Dressing (QC): 6 On/Off Footwear (QC): 6 Additional Goals: 1-Demonstrate ADL Tasks, 2-Verbalize Understanding, 3-ImproveStrength/Sarah 1=Demonstrate adherence to instructed precautions during ADL tasks. 2=Patient will verbalize/demonstrate understanding of assistive devices/modifications for ADL. 3=Patient will improve strength/tolerance for activity to enable patient to perform ADL's. OT Education/Plan Problem List/Assessment Assessment: Decreased Activ Tolerance, Decreased UE Strength, Impaired I ADL's, Impaired Self-Care Skills Discharge Recommendations Plan/Recommendations: Continue POC Therapy Discharge Recommendati: Scheduled Assistance, Home & Family Treatment Plan/Plan of Care Treatment,Training & Education: Yes Patient would benefit from OT for education, treatment and training to promote independence in ADL's, mobility, safety and/or upper extremity function for ADL's. Plan of Care: ADL Retraining, Functional Mobility, UE Funct Exercise/Act Treatment Duration: Sep 10, 2019 Frequency: 5 times per week Estimated Hrs Per Day: .25 hour per day Agreement: Yes Rehab Potential: Fair Time/GCodes Start Time: 09:42 Stop Time: 10:00 Total Time Billed (hr/min): 18 Billed Treatment Time KATERINA Elder (18) HUE EAGLE OTR Sep 03, 2019 10:17
--- NOTE | 2019-09-03 10:23 | Progress Note - Hospitalist ---
Subjective HPI/CC On Admission Date Seen by Provider: Sep 03, 2019 Time Seen by Provider: 10:00 CC: Hypoxia HPI: This is a 74yoWF clinic patient of [facility] known to me from prior CVA admit who lives with granddaughter at home who presented to the ER yesterday after 4 days of N/V. Hypoxia was noted and dehydration on labs and exam so she was swabbed for COVID and admitted to ICU due to elevated d-dimer and unable to evaluate with CT angiogram due to baseline creatinine 1.8. Patient Subjective/Events-last exam Pt working with OT VQ scan will be performed today and B/L lower extremity ultrasounds Bowels are really moving well now Creatinine 1.63, WBC 2.4 Low platelets noted Likely DC tomorrow as long as everything goes well Review of Systems General: Fatigue Neurological: Weakness Focused Exam Lactate Level Objective Exam Vital Signs Vital Signs Date Time Temp Pulse Resp B/P (MAP) Pulse Ox O2 Delivery O2 Flow Rate FiO2 09/04/19 04:00 36.9 62 16 137/73 (94) 93 Room Air 09/02/19 09:00 2.00 100 Capillary Refill : Less Than 3 Seconds General Appearance: No Apparent Distress, WD/WN, Chronically ill Respiratory: Chest Non Tender, Lungs Clear, Normal Breath Sounds, No Accessory Muscle Use, No Respiratory Distress Cardiovascular: Regular Rate, Rhythm, No Edema, No Gallop, No JVD, No Murmur, Normal Peripheral Pulses Neurologic/Psychiatric: Alert, Oriented x3, Normal Mood/Affect, Motor Weakness Results/Procedures Lab Laboratory Tests 09/04/19 04:02 Patient resulted labs reviewed. Assessment/Plan Assessment and Plan Assess & Plan/Chief Complaint Assessment: Hypoxia Elevated d-dimer on Heparin until VQ scan performed Bronchitis acute bacterial type placed on Cefepime empirically Acute on chronic renal failure h/o CVA with left sided weakness s/p rehab 04/2018 PAF Depression Anxiety Former smoker Loop recorder in place Plan: Appreciate Pulmo and Cards Home meds O2 Nebs COVID-19 negative VQ and USG today Hep gtts Diagnosis/Problems Diagnosis/Problems (1) Hypoxia (2) Bronchitis (3) Cerebrovascular accident (CVA) with left hemiparesis Status: Chronic (4) Hypertension Status: Chronic (5) Paroxysmal atrial fibrillation Status: Chronic (6) Hyperlipidemia Status: Chronic (7) Depression Status: Chronic (8) CVA, old, facial weakness Status: Chronic Clinical Quality Measures DVT/VTE Risk/Contraindication: Risk Factor Score Per Nursin RFS Level Per Nursing on Admit: 4+=Very High SANDY WILLIS DO Sep 03, 2019 10:23
--- NOTE | 2019-09-03 10:54 | Cardiology Progress Note ---
Subjective Date Seen by Provider: Sep 03, 2019 Time Seen by Provider: 10:50 Subjective/Events-last exam Patient sitting up in chair, reports feeling well. Denies any chest pain or dyspnea. Focused Exam Lactate Level 08/31/19 17:00: Lactic Acid Level 1.06 08/31/19 22:19: Lactic Acid Level 1.91 Objective-Cardiology Exam Last Set of Vital Signs Vital Signs 09/02/19 09/03/19 09:00 11:31 Temp 36.7 Pulse 66 Resp 18 B/P (MAP) 120/72 (88) Pulse Ox 95 O2 Delivery Room Air O2 Flow Rate 2.00 FiO2 100 Capillary Refill : Less Than 3 Seconds I&O l Intake and Output 09/03/19 00:00 Intake Total 1792 ml Output Total 600 ml Balance 1192 ml Intake Oral 1772 ml IV Total 20 ml Output Urine Total 600 ml # Voids 7 Daily Weight Change No General: Alert, Cooperative, No Acute Distress HEENT: Atraumatic, PERRLA Neck: Supple, No JVD, +2 Carotid Pulse No Bruit Lungs: Clear to Auscultation, Normal Air Movement Heart: Regular Rate, Normal S1, Normal S2 Abdomen: Normal Bowel Sounds, Soft Extremities: No Clubbing, No Cyanosis, No Edema Skin: No Rashes, No Significant Lesion Neuro: Normal Gait, Normal Speech Results Lab Laboratory Tests 09/03/19 05:22 A/P-Cardiology Admission Diagnosis Hypoxemia UTI PAF HTN Assessment/Plan Transient hypoxemia, improved. Currently on room air. Patient with elevated d- dimer. Planning for V/Q scan today. Currently on heparin gtt. COVID-19 negative. UTI- presented with fever, vomiting, diarrhea. Currently on antibiotics, improving, continue to monitor. peripheral arterial disease, last ALYSA was done in May 2015 and was within normal limits. Continue to monitor. History of multiple CVA, last episode occurred on December 2016. Maintained on aspirin and Plavix. Hypercoagulable state workup has been negative, patient had normal protein C, protein S and, antithrombin III. Her factor V Leiden was normal, in a was less than 1-80, anticardiolipin antibody were negative, factor II mutant was also negative. 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 Most recent 2-D echocardiogram revealed normal EF with dilated left atrium. Atrial fibrillation detected on Linq implantation. Was maintained on Xarelto as outpatient until recently. Patient unsure why she is off medication. Paroxysmal atrial fibrillation- mainly short episodes of atrial fibrillation per Linq interrogation. No recent afib on loop recorder. Consider restarting Xarelto. Hypertension, continue to monitor blood pressure. Hyperlipidemia, lipid profile done in March 2018 showing total cholesterol 166, HDL 60, triglyceride 110, LDL 85. Continue to monitor [id number] showed intermediate metabolizer. Mild bilateral carotid stenosis, last ultrasound was done in December 2017, continue to monitor History of syncope, reporting improvement. No further syncopal episodes were reported History of single kidney with chronic renal insufficiency, followed and monitored by Dr. Travis. History of osteoarthritis, rheumatoid arthritis. History of fibromyalgia. History of depression. Patient was seen and evaluated with Liz, examination performed, management plan was discussed, agree with the current scribed note, I made few changes to the note using Italic font Patient is feeling better today, sitting in bed. Lungs were clear to auscultation Continue on current medication and monitor, no changes are recommended Clinical Quality Measures DVT/VTE Risk/Contraindication: Risk Factor Score Per Nursin RFS Level Per Nursing on Admit: 4+=Very High LIZ FORREST Sep 03, 2019 10:54 am DOMI MARTINEZ MD Sep 03, 2019 1:38 pm
[2019-09-03 11:31] VITALS: BP 120/72
[2019-09-03 14:06] LABS: HEPATITIS C ANTIBODY C Non-Reactive (Non-Reactive)
--- NOTE | 2019-09-03 14:15 | Diagnostic Imaging Report ---
INDICATION: Elevated d-dimer and hypoxia. TECHNIQUE: The patient was administered 5.3 mCi of technetium 99m MAA intravenously and imaging over the chest was performed in multiple obliquities. COMPARISON: Correlation is made with the chest radiograph from 08/31/2019. Ventilation imaging was not performed. FINDINGS: There is homogeneous perfusion of both lungs. No pleural-based perfusion defects are seen. IMPRESSION: Normal perfusion study. Dictated by: Dictated on workstation # [id number]
--- NOTE | 2019-09-03 14:20 | Progress Note - Surgery ---
Subjective Time Seen by a Provider: 11:30 Subjective/Events-last exam Pt seen and examined, sleeping in chair but easily arousable. Nurse states she had 2 formed BM today; but mixed in with urine. Pt denies abdominal pain. Review of Systems Pulmonary: No Dyspnea, No Cough Cardiovascular: No: Chest Pain Gastrointestinal: No: Nausea, Vomiting, Abdominal Pain Focused Exam Lactate Level 08/31/19 17:00: Lactic Acid Level 1.06 08/31/19 22:19: Lactic Acid Level 1.91 Objective Exam Vital Signs Date Time Temp Pulse Resp B/P (MAP) Pulse Ox O2 Delivery O2 Flow Rate FiO2 09/03/19 11:31 36.7 66 18 120/72 (88) 95 Room Air 09/03/19 09:00 Room Air 09/03/19 08:08 37.2 63 20 157/86 (109) 94 Room Air 09/03/19 04:00 36.8 52 18 151/82 (105) 97 Room Air 09/03/19 00:00 36.3 56 18 148/70 (96) 95 Room Air 09/02/19 20:10 Room Air 09/02/19 19:57 36.6 55 18 125/73 (90) 97 Room Air 09/02/19 16:09 36.9 57 18 102/64 (77) 94 Room Air I & O 09/03/19 07:00 Intake Total 3242 ml Output Total 1000 ml Balance 2242 ml Capillary Refill : Less Than 3 Seconds General Appearance: No Apparent Distress, WD/WN HEENT: PERRL/EOMI, Moist Mucous Membranes Respiratory: Chest Non Tender, Lungs Clear, Normal Breath Sounds, No Accessory Muscle Use, No Respiratory Distress Cardiovascular: Regular Rate, Rhythm, No Murmur Gastrointestinal: soft, no organomegaly; No distended; tenderness (mild with deep palpation) Neurologic/Psychiatric: Alert, Motor Weakness (left) Results Lab Laboratory Tests 09/02/19 17:15: Activated Partial Thromboplast Time 87H 09/03/19 05:22: Activated Partial Thromboplast Time 91H, White Blood Count 2.4L, Red Blood Count 3.80L, Hemoglobin 11.2L, Hematocrit 36, Mean Corpuscular Volume 94, Mean Corpuscular Hemoglobin 30, Mean Corpuscular Hemoglobin Concent 31L, Red Cell Distribution Width 14.6H, Platelet Count 68L, Mean Platelet Volume 11.1H, Neutrophils (%) (Auto) 42, Lymphocytes (%) (Auto) 36, Monocytes (%) (Auto) 17H, Eosinophils (%) (Auto) 3, Basophils (%) (Auto) 2, Neutrophils # (Auto) 1.0L, Lymphocytes # (Auto) 0.9L, Monocytes # (Auto) 0.4, Eosinophils # (Auto) 0.1, Basophils # (Auto) 0.0, Sodium Level 143, Potassium Level 3.7, Chloride Level 112H, Carbon Dioxide Level 20L, Anion Gap 11, Blood Urea Nitrogen 16, Creatinine 1.63H, Estimat Glomerular Filtration Rate 31, BUN/Creatinine Ratio 10, Glucose Level 76, Calcium Level 9.0, Phosphorus Level 2.6, Magnesium Level 1.9 Microbiology 08/31/19 Blood Culture - Preliminary, Resulted No growth 08/31/19 Urine Culture - Final, Complete NO GROWTH Assessment/Plan Assessment/Plan Assessment/Plan Abdominal Pain - resolved Diarrhea - resolved Transient Hypoxia Unfortunately have still been unable to obtain sample for stool studies; however BM's are formed now (per nurse). Pt can follow up as an outpt if she would like. I will sign off. Clinical Quality Measures DVT/VTE Risk/Contraindication: Risk Factor Score Per Nursin RFS Level Per Nursing on Admit: 4+=Very High JERICA CONTRERAS DO Sep 03, 2019 14:20
[2019-09-03] MEDS: ACETAMINOPHEN 325 MG TABLET PO PRN (15:32)
[2019-09-03] MEDS: DICLOFENAC 1% GEL 100 GM (VOLTAREN) TUBE TOP PRN (15:32)
--- NOTE | 2019-09-03 15:59 | NUR ---
CM/SS visited with the patient for discharge planning. The community health nurse supervisor gave this ss a message that the patient's daughter wanted to talk with this social worker psychiatric. CM/SS contacted the patients daughter Gómez. She reports that the patient usually has a child care giver in the home; however, they do not currently have a caregiver in the home. LOBITO/SS discussed the different caregiving agencies in [place]. She reports she has a few numbers that she will call and check with today. LOBITO/SS informed her about [facility]. Gómez stated that she is concerned for her mothers safety and is unsure if she would need a facility. Gómez reports she will call the patient and discuss with her. The patients daughter is sole caregiver. Gómez also handles the patients finances. The patient states that she lives alone and currently does not have a caregiver. She does not feel that she needs a senior care and states "they were a bad experience". The patient reports that she will not go to one again. Her preference would be home with home health and caregivers. The patient new the year (read off white board), president, and where she was at but thought it was November. CM/SS unclear if this is baseline. CM/SS will continue to follow and assist with discharge planning.
--- NOTE | 2019-09-03 16:02 | NUR ---
Pastoral care visit.
[2019-09-03 16:10] VITALS: BP 127/72
--- NOTE | 2019-09-03 16:59 | Diagnostic Imaging Report ---
INDICATION: Elevated d-dimer. Bilateral lower extremity venous Doppler study was performed in the routine fashion with color flow Doppler and waveform analysis. FINDINGS: The common femoral veins, superficial femoral veins, popliteal veins and visualized portion of the tibial veins show normal compressibility and venous flow patterns. There is normal augmentation. IMPRESSION: No evidence of deep vein thrombosis in the major veins of both legs. Dictated by: Dictated on workstation # [id number]
[2019-09-03] MEDS ORDERED: WATER (STERILE) FOR INJECTION 20 ML ONE (19:45)
[2019-09-03] MEDS ORDERED: CEFEPIME 2 GM (MAXIPIME) VIAL ONE (19:45)
[2019-09-03 19:54] VITALS: BP 116/68
[2019-09-03] MEDS: CEFEPIME 2,000 MG/SWFI 20 ML IV PUSH IV SCH ×2 (19:54)
[2019-09-03] MEDS: LATANOPROST 0.005% (XALATAN) OPHTH SOLN 2.5 ML OU SCH (20:01)
[2019-09-04] VITALS: BP 115/63
[2019-09-04 04:00] VITALS: BP 137/73
[2019-09-04] MEDS: LACTATED RINGERS 1,000 ML IV SCH (04:44)
[2019-09-04 04:47] LABS: BASOPHILS % (AUTO) 1 % (0-10); EOSINOPHILS # (AUTO) 0.1 10^3/uL (0.0-0.3); EOSINOPHILS % (AUTO) 2 % (0-10); HEMATOCRIT 36 % (35-52); HEMOGLOBIN 10.9 G/DL (11.5-16.0); LYMPHOCYTES # (AUTO) 1.3 X 10^3 (1.0-4.0); LYMPHOCYTES % (AUTO) 46 % (12-44); MEAN CORPUSCULAR HEMOGLOBIN 29 PG (25-34); MEAN CORPUSCULAR HGB CONC 31 G/DL (32-36); MEAN CORPUSCULAR VOLUME 94 FL (80-99); MEAN PLATELET VOLUME 11.2 FL (7.4-10.4); MONOCYTES # (AUTO) 0.5 X 10^3 (0.0-1.0); MONOCYTES % (AUTO) 18 % (0-12); NEUTROPHILS # (AUTO) 0.9 X 10^3 (1.8-7.8); NEUTROPHILS % (AUTO) 34 % (42-75); PLATELET COUNT 74 10^3/uL (130-400); RED CELL DISTRIBUTION WIDTH 14.9 % (10.0-14.5); WHITE BLOOD COUNT 2.8 10^3/uL (4.3-11.0)
[2019-09-04 05:04] LABS: CREATININE SERUM 1.55 MG/DL (0.60-1.30); MAGNESIUM 1.8 MG/DL (1.6-2.4); PHOSPHORUS 2.6 MG/DL (2.3-4.7); POTASSIUM 3.4 MMOL/L (3.6-5.0)
[2019-09-04] MEDS: HEParin 1000 UNIT/ML (10ML VIAL) FOR BOLUS IV SCH (05:41)
--- NOTE | 2019-09-04 07:22 | Pulmonary Progress Note ---
Subjective Time Seen by a Provider: 07:20 Subjective/Events-last exam Pt appears to be doing better. Sepsis Event Evaluation Height, Weight, BMI Height: 5'4.00" Weight: 170lbs. 1.6oz. [id number]; 29.72 BMI Method:Stated Exam Exam Vital Signs Date Time Temp Pulse Resp B/P (MAP) Pulse Ox O2 Delivery O2 Flow Rate FiO2 09/04/19 04:00 36.9 62 16 137/73 (94) 93 Room Air 09/04/19 00:00 36.8 59 16 115/63 (80) 89 Room Air 09/03/19 21:00 Room Air 09/03/19 19:54 36.4 57 16 116/68 (84) 97 Room Air 09/03/19 16:10 36.6 52 16 127/72 (90) 92 Room Air 09/03/19 11:31 36.7 66 18 120/72 (88) 95 Room Air 09/03/19 09:00 Room Air 09/03/19 08:08 37.2 63 20 157/86 (109) 94 Room Air I & O 09/04/19 07:00 Intake Total 2562 ml Output Total 350 ml Balance 2212 ml Height & Weight Height: 5'4.00" Weight: 170lbs. 1.6oz. 77.166603ce; 29.72 BMI Method:Stated General Appearance: No Apparent Distress, WD/WN, Chronically ill HEENT: PERRL/EOMI, Moist Mucous Membranes Respiratory: Chest Non Tender, Lungs Clear, Normal Breath Sounds, No Accessory Muscle Use, No Respiratory Distress Cardiovascular: Regular Rate, Rhythm, No Edema, No Gallop, No JVD, No Murmur, Normal Peripheral Pulses Capillary Refill: Less Than 3 Seconds Gastrointestinal: soft, no organomegaly; No distended; tenderness (mild with deep palpation) Neurologic/Psychiatric: Alert, Oriented x3, Normal Mood/Affect, Motor Weakness Results Lab Laboratory Tests 09/03/19 05:22 09/04/19 04:02 Assessment/Plan Assessment/Plan Mild hypoxia -- improved -V/Q is negative, Bilateral dopplers are negative. -D/C Hep gtt -Start PPX Lovenox UTI -Ceron cultures -Cefepime Renal failure -Monitor chronic dementia -Lives at home AMELIA YI DO Sep 04, 2019 07:22
[2019-09-04] MEDS ORDERED: ENOXAPARIN 40 MG/0.4 ML (LOVENOX) SYR SC SCH (07:30)
[2019-09-04 07:45] VITALS: BP 147/74
[2019-09-04] MEDS: ASPIRIN E.C. 81 MG (ECOTRIN) TAB PO SCH (08:24)
[2019-09-04] MEDS: buPROPion SR 150 MG (WELLBUTRIN SR) TAB PO SCH (08:24)
[2019-09-04] MEDS: GABAPENTIN 300 MG (NEURONTIN) CAP PO SCH (08:24)
[2019-09-04] MEDS: PANTOPRAZOLE 40 MG (PROTONIX) TAB PO SCH (08:24)
[2019-09-04] MEDS: DRONEDARONE TABLET 400 MG TABLET PO SCH (08:24)
[2019-09-04] MEDS: meTOprolol SUCCINATE 100 MG (TOPROL XL) TAB PO SCH (08:24)
[2019-09-04] MEDS: MAGNESIUM OXIDE (MAG-OX)400 MG TAB PO SCH (08:24)
[2019-09-04] MEDS: BRIMONIDINE 0.2% (ALPHAGAN) OPHTH SOLN 5 ML BTL OU SCH (08:25)
--- NOTE | 2019-09-04 08:33 | Cardiology Progress Note ---
Subjective Date Seen by Provider: Sep 04, 2019 Time Seen by Provider: 08:31 Subjective/Events-last exam Patient is laying down in bed, feeling well. No new complaint. No chest pain. Review of Systems General: No Chills, No Night Sweats; Fatigue; No Malaise, No Appetite, No Other HEENT: No Head Aches, No Visual Changes, No Eye Pain, No Ear Pain, No Dysphasia, No Sinus Congestion, No Post Nasal Drip, No Sore Throat, No Other Pulmonary: No Dyspnea, No Cough, No Pleuritic Chest Pain, No Other Cardiovascular: No: Chest Pain, Palpitations, Orthopnea, Paroxysmal Noc. Dyspnea, Edema, Lt Headedness, Other Objective-Cardiology Exam Last Set of Vital Signs Vital Signs 09/02/19 09/04/19 09:00 07:45 Temp 37.1 Pulse 57 Resp 20 B/P (MAP) 147/74 (98) Pulse Ox 95 O2 Delivery Room Air O2 Flow Rate 2.00 FiO2 100 Capillary Refill : Less Than 3 Seconds I&O Intake and Output 09/04/19 00:00 Intake Total 3142 ml Output Total 750 ml Balance 2392 ml Intake Oral 2142 ml IV Total 1000 ml Output Urine Total 750 ml # Voids 4 # Bowel Movements 2 General: Alert, Cooperative, No Acute Distress HEENT: Atraumatic, PERRLA Neck: Supple, No JVD, +2 Carotid Pulse No Bruit Lungs: Clear to Auscultation, Normal Air Movement Heart: Regular Rate, Normal S1, Normal S2 Abdomen: Normal Bowel Sounds, Soft Extremities: No Clubbing, No Cyanosis, No Edema Skin: No Rashes, No Significant Lesion Neuro: Normal Gait, Normal Speech Results Lab Laboratory Tests 09/04/19 04:02 A/P-Cardiology Admission Diagnosis Hypoxemia UTI PAF HTN Assessment/Plan Transient hypoxemia, improved. Currently on room air. Patient with elevated d- dimer. VQ scan was negative, venous Doppler was negative. COVID testing negative. Better at this time. Managed by primary care team UTI- presented with fever, vomiting, diarrhea. Currently on antibiotics, improving, continue to monitor. Peripheral arterial disease, last ALYSA was done in May 2015 and was within normal limits. Continue to monitor. History of multiple CVA, last episode occurred on December 2016. Maintained on aspirin and Plavix. Hypercoagulable state workup has been negative, patient had normal protein C, protein S and, antithrombin III. Her factor V Leiden was normal, in a was less than 1-80, anticardiolipin antibody were negative, factor II mutant was also negative. 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 Most recent 2-D echocardiogram revealed normal EF with dilated left atrium. Atrial fibrillation detected on Linq implantation. Was maintained on Xarelto as outpatient until recently. Patient unsure why she is off medication. Restarting Xarelto Paroxysmal atrial fibrillation- mainly short episodes of atrial fibrillation per Linq interrogation. No recent afib on loop recorder. Restarting Xarelto. Hypertension, continue to monitor blood pressure. Hyperlipidemia, lipid profile done in March 2018 showing total cholesterol 166, HDL 60, triglyceride 110, LDL 85. Continue to monitor [id number] showed intermediate metabolizer. Mild bilateral carotid stenosis, last ultrasound was done in December 2017, continue to monitor History of syncope, reporting improvement. No further syncopal episodes were reported History of single kidney with chronic renal insufficiency, followed and monitored by Dr. Travis. History of osteoarthritis, rheumatoid arthritis. History of fibromyalgia. History of depression. Clinical Quality Measures DVT/VTE Risk/Contraindication: Risk Factor Score Per Nursin RFS Level Per Nursing on Admit: 4+=Very High DOMI MARTINEZ MD Sep 04, 2019 08:33
[2019-09-04] MEDS: DICLOFENAC 1% GEL 100 GM (VOLTAREN) TUBE TOP PRN (08:38)
--- NOTE | 2019-09-04 10:00 | Occupational Ther Daily Note ---
OT Current Status-Daily Note Subjective Pt sleeping in recliner, wakes to name. Pt agrees to therapy. No c/o pain. Mental Status/Objective Patient Orientation: Person Attachments: IV ADL-Treatment Pt stated that nrsg will be giving her a shower later, declined OT assist. Pt declined need to toilet or oral care. Therapy Code Descriptions/Definitions Functional [place] Measure: 0=Not Assessed/NA 4=Minimal Assistance 1=Total Assistance 5=Supervision or Setup 2=Maximal Assistance 6=Modified [place] 3=Moderate Assistance 7=Complete IndependenceSCALE: Activities may be completed with or without assistive devices. 9-Vihfhcxyxx-wdfcinv completes the activity by him/herself with no assistance from a helper. 5-Set-up or Clean-up Assistance-helper sets up or cleans up; patient completes activity. [place] assists only prior to or following the activity. 4-Supervision or Touching Assistance-helper provides verbal cues and/or touching/steadying and/or contact guard assistance as patient completes activity. Assistance may be provided throughout the activity or intermittently. 3-Partial/Moderate Assistance-helper does LESS THAN HALF the effort. [place] lifts, holds or supports trunk or limbs, but provides less than half the effort. 2-Substantial/Maximal Assistance-helper does MORE THAN HALF the effort. [place] lifts or holds trunk or limbs and provides more than half the effort. 6-Tyqizxixv-jfyfsh does ALL the effort. Patient does none of the effort to complete the activity. Or, the assistance of 2 or more helpers is required for the patient to complete the activity. If activity was not attempted, code reason: 7-Patient Refused. 9-Not Applicable-not attempted and the patient did not perform the activity before the current illness, exacerbation or injury. 10-Not Attempted due to Environmental Limitations-(lack of equipment, weather restraints, etc.). 88-Not Attempted due to Medical Conditions or Safety Concerns. Other Treatment Pt agrees to complete B UE exercises with medium resistance theraband to increase strength and activity tolerance for daily functional tasks. Skilled instruction required for technique, positioning and counting. Pt has limited ROM of L UE though has movement throughout L UE. WNL for R UE. With assistance, pt completes 3 exercises 10 reps with each arm. Sit to stand with CGA 5x's. After session, pt sitting in recliner with call light/phone in reach. Nrsg in room. OT Grinding Room Supervisor Goals Fdc Goals Time Frame: Sep 10, 2019 Eating (QC): 6 Oral Hygiene (QC): 6 Toileting Hygiene (QC): 3 Shower/Bathe Self (QC): 3 Upper Body Dressing (QC): 6 Lower Body Dressing (QC): 6 On/Off Footwear (QC): 6 Additional Goals: 1-Demonstrate ADL Tasks, 2-Verbalize Understanding, 3- ImproveStrength/Sarah 1=Demonstrate adherence to instructed precautions during ADL tasks. 2=Patient will verbalize/demonstrate understanding of assistive devices/modifications for ADL. 3=Patient will improve strength/tolerance for activity to enable patient to perform ADL's. OT Education/Plan Problem List/Assessment Assessment: Decreased Activ Tolerance, Decreased Safety Aware, Decreased UE Strength, Impaired Cognition, Impaired Coordination, Impaired Funct Balance, Impaired Self-Care Skills, Restricted Funct UE ROM Discharge Recommendations Plan/Recommendations: Continue POC Treatment Plan/Plan of Care Patient would benefit from OT for education, treatment and training to promote independence in ADL's, mobility, safety and/or upper extremity function for ADL's. Plan of Care: ADL Retraining, Functional Mobility, UE Funct Exercise/Act Treatment Duration: Sep 10, 2019 Frequency: 5 times per week Estimated Hrs Per Day: .25 hour per day Agreement: Yes Rehab Potential: Fair Time/GCodes Start Time: 09:27 Stop Time: 09:42 Total Time Billed (hr/min): 15 Billed Treatment Time 1 visit-EX 1 (15 min) SAMMI BELL Sep 04, 2019 10:00
[2019-09-04] MEDS ORDERED: CEFD300C3 PO (10:52)
--- NOTE | 2019-09-04 10:54 | D/C HH Face to Face Order ---
D/C Face to Face Orders Reconcile Patient Problems Problems Reviewed?: Yes Instructions for Patient Via [facility], Patient Instructions/FollowUp: [facility] 1 week Physician to follow Patient: [facility] Discharge Diet for Home: No Restrictions Patient Problems: Bronchitis Previous CVA HTN Goals for Patient: [place] Patient Data-Allergies,Ht & Wt Patient Allergies: Coded Allergies: donepezil (Verified Allergy, Unknown, disoriented, stroke like symptoms, 03/23/19) fentanyl (Verified Adverse Reaction, Mild, 03/23/19) MAKES HER HALLUCINATE Height (Feet): 5 Height (Inches): 4.00 Weight (Pounds): 170 Weight (Ounces): 1.6 Home Health Need/Face to Face Date of Face to Face: Sep 04, 2019 Clinical Findings: Generalized weakness and fatigue, Instability, Muscle weakness, Unsteady gait I have seen Pt [id number]: Yes Discharged To: Home Diagnosis/Conditions: Bronchitis Previous CVA HTN Patient is Homebound due to: CognItive deficits, William fall risk due to instabilty, Muscle weakness Homebound Status Due to the above stated illness, injury or surgical procedure (medical condition or diagnosis) and associated clinical findings, the patient is homebound because of his/her inability to leave home except with aid of a supportive device and/or person AND leaving the home requires a considerable and taxing effort or is medically contraindicated. Pt req the following assistanc: [facility] Nursing Orders Home Health Services Order: Nursing Services, Head Inspector And Center Marker-Evaluate & Treat, Physical Therapy-Evaluate & Treat Home Health Infusion Therapy Line Start Date: Aug 31, 2019 Certify Stmt I certify that this patient is under my care and that I, a nurse practitioner or a physician; a executive personal assistant working with me, had a face to face encounter that - meets the physician face to face encounter requirements with this patient as dated. SANDY WILLIS DO Sep 04, 2019 10:54
[2019-09-04] MEDS ORDERED: BISACODYL 10 MG SUPP (DULCOLAX) PR NR (11:00)
[2019-09-04 11:37] VITALS: BP 105/66
[2019-09-04] MEDS ORDERED: RIVA20TA PO (12:25)
--- NOTE | 2019-09-04 13:00 | NUR ---
PT HR 51-56. Arthur CALDERÓN NOTIFIED VIA PHONE OF ORDERS TO DISCHARGE AND HRArthur TO PLACE NEW MEDICATIONS CHANGES IN DISCHARGE. PT DAUGHTER WILL BE COMING TO GET PT AROUND 5PM.
--- NOTE | 2019-09-04 14:50 | NUR ---
CM/SS follow up. Plan: The patient will return home with home health. The patients daughter will supervisor opening and picking patient today 09/03 at 5:00 p.m. Home Health: The patient was provided with a patient preference form and she did not want to pick, she asked this ss to call her daughter Daniella to make the decision. Daniella stated that the patient had [facility] a couple of weeks ago and they would like to continue using them. CM/SS contacted [facility] and made the referral. CM/SS informed them that the patient will possibly move to [facility] within the next couple of days. They verbalized understanding. [facility]: Daniella contacted this ss first thing in the morning stating she has contacted [facility] to set up a visitation time and would like to get the patient in there. CM/SS informed Daniella that this ss would speak with the patient about this. She verbalized understanding. The patient reports that she is fine with this ss sending a referral to [facility] due to it being a assisted living not skilled facility. She reports she is doing it to "appease" her daughter. CM/SS contacted Sakshi from [facility] and made the referral. CM/SS faxed clinical. They contacted Daniella to inform her of acceptance. Sakshi asked this ss to get an order for admission to facility. CM/SS contacted [facility] and asked for Meg's nurse Anila. She reports they will write for the admission. This ss informed her what the order should say. "admit order to [facility] with all medications, with today's date". Anila verbalized understanding. CM/SS informed Sakshi that the order should be sent and home health orders were faxed. No further questions or needs at this time.
[2019-09-04] MEDS: ACETAMINOPHEN 325 MG TABLET PO PRN (16:53)
[2019-09-04 17:10] VITALS: BP 105/66
== END 2019-09-04 17:10 | disposition home health service (06) | DRG 206 ==
LOC: EDUNIT# 16:28 → ER 16:30 → ICU 19:00 → 4TH 09-01 09:56
PROVIDERS: ADMIT Internal Medicine; ATTEND Internal Medicine
DX: R09.02 Hypoxemia (principal); N17.9 Acute kidney failure, unspecified; I69.354 Hemiplegia and hemiparesis following cerebral infarction affecting left non-dominant side; N39.0 Urinary tract infection, site not specified; J20.9 Acute bronchitis, unspecified; N18.9 Chronic kidney disease, unspecified; I48.0 Paroxysmal atrial fibrillation; F32.9 Major depressive disorder, single episode, unspecified; F41.9 Anxiety disorder, unspecified; Z20.828 Contact with and (suspected) exposure to other viral communicable diseases; I73.9 Peripheral vascular disease, unspecified; I12.9 Hypertensive chronic kidney disease with stage 1 through stage 4 chronic kidney disease, or unspecified chronic kidney disease; I65.23 Occlusion and stenosis of bilateral carotid arteries; M06.9 Rheumatoid arthritis, unspecified; F03.90 Unspecified dementia, unspecified severity, without behavioral disturbance, psychotic disturbance, mood disturbance, and anxiety; Z79.82 Long term (current) use of aspirin; Z88.8 Allergy status to other drugs, medicaments and biological substances; Z87.891 Personal history of nicotine dependence
CPT/HCPCS: 36415; 71045; 80048; 80053; 80074; 81000; 82805; 83605; 83615; 83735; 83880; 84100; 84145; 85025; 85379; 85610; 85652; 85730; 86141; 87040; 87077; 87088; 87186; 87635; 93970; 96360

== ENCOUNTER 2019-09-06 09:23 | Observation (INO) | payer MEDICARE ==
[2019-09-06] VITALS (10 sets, daily range): BP systolic 118–161; BP diastolic 58–95
[~2019-09-06] VITALS: Ht 162.5 cm; Wt 72.7 kg
[~2019-09-06 09:23] MED LIST changes: +AMLO10TA7 PO; +DESV50TA PO; +GABA300C PO; +PANT40TA2 PO
[2019-09-06 09:41] LABS: BASOPHILS # (AUTO) 0.1 10^3/uL (0.0-0.1); BASOPHILS % (AUTO) 1 % (0-10); EOSINOPHILS # (AUTO) 0.1 10^3/uL (0.0-0.3); EOSINOPHILS % (AUTO) 1 % (0-10); HEMATOCRIT 39 % (35-52); HEMOGLOBIN 12.1 G/DL (11.5-16.0); LYMPHOCYTES # (AUTO) 4.6 X 10^3 (1.0-4.0); LYMPHOCYTES % (AUTO) 58 % (12-44); MEAN CORPUSCULAR HEMOGLOBIN 30 PG (25-34); MEAN CORPUSCULAR HGB CONC 31 G/DL (32-36); MEAN CORPUSCULAR VOLUME 95 FL (80-99); MEAN PLATELET VOLUME 11.2 FL (7.4-10.4); MONOCYTES # (AUTO) 0.4 X 10^3 (0.0-1.0); MONOCYTES % (AUTO) 5 % (0-12); NEUTROPHILS # (AUTO) 2.8 X 10^3 (1.8-7.8); NEUTROPHILS % (AUTO) 34 % (42-75); PLATELET COUNT 116 10^3/uL (130-400); RED CELL DISTRIBUTION WIDTH 14.7 % (10.0-14.5)
--- NOTE | 2019-09-06 09:41 | ED Fall/Injury ---
General Chief Complaint: Neurological Problems Stated Complaint: POSSIBLE FALL/WEAKNESS Source: patient Exam Limitations: no limitations History of Present Illness Date Seen by Provider: Sep 06, 2019 Time Seen by Provider: 09:24 Initial Comments Pt to ER from [facility] with Chief C/O sliding out of bed just prior to arrival. She denies passing out or striking her head. She's not having any pain anywhere. No shortness of breath but she has had a cough for the past several days. She does not rely on oxygen nor she have history of smoking. She recently finished antibiotics for UTI yesterday. She has a history of seizures as well as strokes related to paroxysmal atrial fibrillation. She is on Xarelto, metoprolol and dronedarone. 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 She does not feel it's any different now than usual. She is in physical therapy and says she has been improving recently. Yesterday she was tested negative for COVID-19 because she is a new admit to the assisted living home. She denies dysuria diarrhea or abdominal pain chest pain, shortness of breath or headache. Patient of Dr Valles. After the patient was to be observed in the hospital nursing staff was called alf and they relayed that they witnessed her having seizure-like activity at the time she was sliding out of bed. This did not get mentioned to us either in report or to EMS. Allergies and Home Medications Allergies Coded Allergies: donepezil (Verified Allergy, Unknown, disoriented, stroke like symptoms, 03/23/19) fentanyl (Verified Adverse Reaction, Mild, 03/23/19) MAKES HER HALLUCINATE Home Medications Acetaminophen 325 Mg Tablet, 650 MG PO Q4H PRN for PAIN-MILD, (Reported) Amlodipine Besylate 10 Mg Tablet, 10 MG PO DAILY, (Reported) Atorvastatin Calcium 80 Mg Tablet, 80 MG PO DAILY, (Reported) Brimonidine Tartrate 5 Ml Btl, 1 DROP OU BID, (Reported) Bupropion HCl 300 Mg Tab.er.24h, 300 MG PO DAILY, (Reported) LAST FILLED 07-05-2019 #30 Cefdinir 300 Mg Capsule, 300 MG PO BID Prescribed by: SANDY WILLIS on 09/04/19 1052 Desvenlafaxine Succinate 50 Mg Tab.er.24h, 50 MG PO HS, (Reported) Diclofenac Sodium 100 Gm Gel..gram., 2 GM TOP QID PRN for JOINT PAIN, (Reported) Dronedarone HCl 400 Mg Tablet, 400 MG PO BID Prescribed by: SALAS GALEANO on 03/27/19 1419 Gabapentin 300 Mg Capsule, 300 MG PO BID, (Reported) Latanoprost 2.5 Ml Drops, 1 DROP OU HS, (Reported) Magnesium Oxide 400 Mg Tablet, 400 MG PO BID, (Reported) Metoprolol Succinate 100 Mg Tab.er.24h, 100 MG PO DAILY, (Reported) LAST FILLED 07-05-2019 #30 Pantoprazole Sodium 40 Mg Tablet.dr, 40 MG PO DAILY, (Reported) LAST FILLED 03-30-2019 #90 Rivaroxaban 20 Mg Tablet, 20 MG PO DAILY Prescribed by: DAPHNIE CALDERÓN on 09/04/19 1225 Patient Home Medication List Home Medication List Reviewed: Yes Review of Systems Review of Systems Constitutional: No chills, No fever, No malaise Eyes: Denies Blindness, Denies Blurred Vision Ears, Nose, Mouth, Throat: denies ear pain, denies ear discharge Respiratory: No cough, No short of breath Cardiovascular: No chest pain, No edema Gastrointestinal: No abdominal pain, No nausea, No vomiting Genitourinary: No discharge, No dysuria Musculoskeletal: No back pain, No joint pain All Other Systems Reviewed Negative Unless Noted: Yes Past Wadfrcz-Carptz-Txbxtn Hx Patient Social History Alcohol Use: Denies Use Recreational Drug Use: No Smoking Status: Former Smoker Type Used: Cigarettes Former Smoker, Quit: Dec 19, 1986 2nd Hand Smoke Exposure: No Recent Hopitalizations: Yes Immunizations Up To Date Tetanus Booster (TDap): Unknown PED Vaccines UTD: Yes Date of Pneumonia Vaccine: Mar 23, 2016 Date of Influenza Vaccine: Dec 21, 2018 Seasonal Allergies Seasonal Allergies: Yes Past Medical History Surgeries: Yes (LOOP RECORDER; JAW SURGERY; HIATAL HERNIA REPAIR X 2;BILAT CATARACTS;DENTAL) Abdominal, Appendectomy, Eye Surgery, Tonsillectomy Respiratory: Yes (CHRONIC DYSPNEA ON EXERTION) Currently Using CPAP: No Currently Using BIPAP: No Cardiac: Yes (LOOP RECORDER IN PLACE;PERIPHERAL VASCULAR DZ;CAROTID D Z;CLAUDICATION) Atrial Fibrillation, Coronary Artery Disease, Heart Murmur, High Cholesterol, Hypertension, Peripheral Vascular, Valvular Heart Disease Neurological: Yes (MULTIPLE CVA'S--AT LEAST 5 OR 6 CVA'S WITH LEFT SIDE WEAKNESS) Stroke, TIA 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 Disorders: No Female 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 Disorders: Denies [employer]URE [employer] History: Menopausal Sexually Transmitted Disease: No HIV/AIDS: No Genitourinary: Yes (BLADDER CONTROL PROBLEMS; CHRONIC RENAL FAILURE/INSUFFICIENCY) Renal Failure Gastrointestinal: Yes (HIATAL HERNIA SURGERY X 2; EGD/COLONOSCOPY) Gastroesophageal Reflux, Polyps, Hiatal Hernia, Ulcer Musculoskeletal: Yes Arthritis, Fibromyalgia, Rheumatoid Arthritis Endocrine: No HEENT: Yes (BILATERAL CATARACT SURGERY) Cataract, Glaucoma Hearing Impairment: Denies Cancer: No Did You Recieve Any Treatments: No Psychosocial: Yes Anxiety, Depression Integumentary: No Blood Disorders: Yes (ANEMIA) Adverse Reaction/Blood Tranf: No Family Medical History FH: CVA (cerebrovascular accident) G8 BROTHER G8 SISTER FH: breast cancer 19 MOTHER FH: cancer 19 FATHER Hypertension 19 MOTHER Cancer, Hypertension, Stroke Physical Exam Vital Signs Vital Signs - First Documented 09/06/19 09/06/19 09:25 11:29 Temp 36.8 Pulse 71 Resp 18 B/P (MAP) 118/75 (89) Pulse Ox 98 O2 Delivery Room Air Capillary Refill : Height, Weight, BMI Height: 5'4.00" Weight: 170lbs. 1.6oz. 77.201306ru; 29.72 BMI Method:Stated General Appearance: WD/WN, no apparent distress HEENT: PERRL/EOMI, normal ENT inspection, TMs normal, pharynx normal Neck: non-tender, full range of motion, supple, normal inspection Cardiovascular: normal peripheral pulses, regular rate, rhythm Respiratory: chest non-tender, lungs clear, normal breath sounds, no respiratory distress, no accessory muscle use Peripheral Pulses: 2+ Radial Pulses (R), 2+ Radial Pulses (L) Gastrointestinal: normal bowel sounds, non tender, soft Extremities: normal range of motion, non-tender, normal capillary refill Neurologic/Psychiatric: alert, normal mood/affect, oriented x 3, other (Baseline left upper and lower extremity deficits) Skin: normal color, warm/dry Steedman Coma Score Best Eye Response: (4) Open Spontaneously Best Verbal Response: (5) Oriented Best Motor Response: (6) Obeys Commands [place] Total: 15 NIH Stroke Scale Assessment Select: Initial Level of Consciousness: 0=Alert (0), Level of Consciousness- Questions: 0=Answers both month/age (0), LOC Commands: 0=Performs both tasks (0), Gaze: Normal (0), Visual Wright: 0=No visual loss (0), Facial Movement (Facial Paresis): 0=Normal symmetrical mnt (0), Motor Function-Arms Right: 0=No drift (0), Motor Function-Arms Left: 1=Drift (1), Motor Function-Legs Right: 0=No drift (0), Motor Function-Legs Left: 1=Drift (1), Limb Ataxia: 0=Absent (0), Sensory: 0=Normal:no loss (0), Best Language: 0=No aphasia (0), Dysarthria: 0=Normal (0), Extinction & Inattention: 0=No abnormality (0), Total: 2 Stroke Thrombolytic Exclusion Age 18 or Over: Yes Acute intenal hemorrhage: No History of CVA: Yes Uncontrolled Coagulation Defec: No Intracranial Hemorrhage: No Severe Hypertension: No GI or Bleed: No Subarachnoid Hemorrhage: No Intracranial Neoplasm/Aneurysm: No Oral Anticoagulants: Yes Surgery or Trauma: No Puncture of Non-Compressible V: No Recent CPR: No Diabetic Hemorrhagic Retinopat: No Organ Biopsy: No Recent Obstetric Delivery: No Glucose: No Significant Hepatic Dysfunctio: No NIH Stoke Scale >22: No Bacterial Endocarditis: No Pericarditis: No Improving Symptoms: No Platelets: No TPA Contraindication: Yes (Unknown last well time, no new symptoms beyond baseline deficits.) IV - TPa Received IV - TPa Procedure Performed?: No Progress/Results/Core Measures Results/Orders Lab Results Laboratory Tests Test 09/06/19 09:25 09/06/19 10:36 09/06/19 11:47 Range/Units White Blood Count 8.0 4.3-11.0 10^3/uL Red Blood Count 4.10 L 4.35-5.85 10^6/uL Hemoglobin 12.1 11.5-16.0 G/DL Hematocrit 39 35-52 % Mean Corpuscular Volume 95 80-99 FL Mean Corpuscular Hemoglobin 30 25-34 PG Mean Corpuscular Hemoglobin Concent 31 L 32-36 G/DL Red Cell Distribution Width 14.7 H 10.0-14.5 % Platelet Count 116 L 130-400 10^3/uL Mean Platelet Volume 11.2 H 7.4-10.4 FL Neutrophils (%) (Auto) 34 L 42-75 % Lymphocytes (%) (Auto) 58 H 12-44 % Monocytes (%) (Auto) 5 0-12 % Eosinophils (%) (Auto) 1 0-10 % Basophils (%) (Auto) 1 0-10 % Neutrophils # (Auto) 2.8 1.8-7.8 X 10^3 Lymphocytes # (Auto) 4.6 H 1.0-4.0 X 10^3 Monocytes # (Auto) 0.4 0.0-1.0 X 10^3 Eosinophils # (Auto) 0.1 0.0-0.3 10^3/uL Basophils # (Auto) 0.1 0.0-0.1 10^3/uL Sodium Level 144 135-145 MMOL/L Potassium Level 3.9 3.6-5.0 MMOL/L Chloride Level 109 H 98-107 MMOL/L Carbon Dioxide Level 21 21-32 MMOL/L Anion Gap 14 5-14 MMOL/L Blood Urea Nitrogen 16 7-18 MG/DL Creatinine 1.54 H 0.60-1.30 MG/DL Estimat Glomerular Filtration Rate 33 BUN/Creatinine Ratio 10 Glucose Level 105 70-105 MG/DL Calcium Level 9.6 8.5-10.1 MG/DL Corrected Calcium 9.8 8.5-10.1 MG/DL Total Bilirubin 0.5 0.1-1.0 MG/DL Aspartate Amino Transf (AST/SGOT) 78 H 5-34 U/L Alanine Aminotransferase (ALT/SGPT) 73 H 0-55 U/L Alkaline Phosphatase 156 H 40-136 U/L Troponin I 0.042 H <0.028 NG/ML B-Type Natriuretic Peptide 475.9 H <100.0 PG/ML Total Protein 6.7 6.4-8.2 GM/DL Albumin 3.8 3.2-4.5 GM/DL Procalcitonin 0.14 H <0.10 NG/ML Urine Color YELLOW Urine Clarity CLEAR Urine pH 8.0 5-9 Urine Specific [place] 1.020 1.016-1.022 Urine Protein 2+ H NEGATIVE Urine Glucose (UA) NEGATIVE NEGATIVE Urine Ketones NEGATIVE NEGATIVE Urine Nitrite NEGATIVE NEGATIVE Urine Bilirubin NEGATIVE NEGATIVE Urine Urobilinogen 0.2 < = 1.0 MG/DL Urine Leukocyte Esterase TRACE H NEGATIVE Urine RBC (Auto) NEGATIVE NEGATIVE Urine RBC NONE /HPF Urine WBC 2-5 /HPF Urine Squamous Epithelial Cells 2-5 /HPF Urine Crystals PRESENT H /LPF Urine Amorphous Sediment RARE RADHA PHOSPHATE H /LPF Urine Bacteria TRACE /HPF Urine Casts NONE /LPF Urine Mucus NEGATIVE /LPF Urine Culture Indicated YES Lactic Acid Level 1.34 0.50-2.00 MMOL/L My Orders Orders - KANDY OLIVEIRA Ct Head/Cervical Spine Wo (09/06/19 09:35) Chest 1 View, Ap/Pa Only (09/06/19 09:35) Cbc With Automated Diff (09/06/19 09:35) Ua Culture If Indicated (09/06/19 09:35) Continuous Ekg Monitoring (09/06/19 09:35) Ekg Tracing (09/06/19 09:35) Urine Culture (09/06/19 10:36) Comprehensive Metabolic Panel (09/06/19 11:23) Troponin I (09/06/19 11:23) BNP (09/06/19 11:23) Blood Culture (09/06/19 11:36) Procalcitonin (Pct) (09/06/19 11:36) Lactic Acid Analyzer (09/06/19 11:36) Vital Signs/I&O 09/06/19 09/06/19 09:25 11:29 Temp 36.8 Pulse 71 54 Resp 18 18 B/P (MAP) 118/75 (89) 152/75 (100) Pulse Ox 98 O2 Delivery Room Air Progress Progress Note : Time: 14:44 Progress Note No new neurologic deficits. While patient was here she did have a few episodes where her heart rate did slow down for about 2-3 minutes into the 30s. We did capture one episode her heart rate was 30 and printed this out multiple including her chart. She's not having any chest pain nausea or other anginal symptoms. 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 She did not trigger any episodes either. Diagnostic Imaging Diagonstic Imaging: Xray Plain Films/CT/US/NM/MRI: chest (1v) Comments [facility] [place], [place] NAME: DANIELA WORLEY MED REC#: [id number] PT STATUS: REG ER : 1945 PHYSICIAN: KANDY OLIVEIRA MD ADMIT DATE: 09/06/19/ER Draft Date of Exam:09/06/19 CHEST 1 VIEW, AP/PA ONLY HISTORY: Weakness, decreased heart rate. COMPARISON: 08/31/2019 TECHNIQUE: Frontal view of the chest. FINDINGS: Airspace opacities are seen at the right lung base. No pleural effusion or pneumothorax is seen. The cardiac silhouette is mildly prominent. There is an old left midclavicular fracture. There is calcific atherosclerosis. IMPRESSION: 1. Right basilar airspace opacities may represent atelectasis or infiltrate. 2. Mild cardiomegaly. Dictated on workstation # [id number] Dict: 09/06/19 1025 Trans: 09/06/19 [facility]7 [id number] Interpreted by: RUBENS TEJADA MD Electronically signed by: Reviewed: Reviewed by Dc Diagonstic Imaging: CT Plain Films/CT/US/NM/MRI: c-spine, head Comments [facility] [place] [place] NAME: DANIELA WORLEY MED REC#: [id number] PT STATUS: REG ER : 1945 PHYSICIAN: KANDY OLIVEIRA MD ADMIT DATE: 09/06/19/ER Draft Date of Exam:09/06/19 CT HEAD/CERVICAL SPINE WO PROCEDURE: CT head and CT cervical spine without contrast. TECHNIQUE: Multiple contiguous axial images were obtained through the brain and cervical spine without the use of intravenous contrast. Sagittal and coronal reformations through the cervical spine were then performed. Auto Exposure Controls were utilized during the CT exam to meet ALARA standards for radiation dose reduction. INDICATION: Found down, possible fall. COMPARISON: The study is compared with CT head of 08/10/2019. FINDINGS: Old left greater than right parieto-occipital cortical encephalomalacia as the sequelae of old insult, likely old infarct, is redemonstrated. Right frontal subcortical and cortical infarct, also chronic and unchanged. Old lacunar infarcts in the thalami and basal ganglia showed no change. No findings of focal or generalized cerebral edema. No evidence for elevated pressures and no intracerebral hemorrhage. There are substantial intracranial atherosclerotic vascular calcifications and a mild degree of background cerebrocortical atrophy without overt hydrocephalus, unchanged. No new abnormality. No calvarial deformity. No paranasal sinus air-fluid level. Cervical spine is compared to 03/22/2019. FINDINGS: Degenerative changes, most advanced at C5-C6 disc space level, are accompanied by slight grade 1 degenerative C5 on C6 retrolisthesis and grade 1 C4 on C5 anterolisthesis, unchanged. No new malalignment. No traumatic malalignment. Advanced degenerative changes to the facets, left greater than right throughout the cervical spine, are greatest at the C4-C5 level. No cervical fracture. No evidence for paravertebral hematoma. The bony skull base appeared intact. IMPRESSION: 1. CT head: Old multifocal ischemic sequelae, unchanged from our previous exam. No hemorrhage, edema, or acute finding. Background atrophy, stable. 2. Cervical spine: Stable multilevel grade 1 degenerative listhesis with moran-cervical spondylosis and facet arthrosis, stable. No fracture. Dictated on workstation # [id number] Dict: 09/06/19 1041 Trans: 09/06/19 1053 [id number] Interpreted by: COLIN SANTOS Electronically signed by: Reviewed: Reviewed by Me Focused Exam Lactate Level 09/06/19 11:47: Lactic Acid Level 1.34 Lactic Acid Level Laboratory Tests Test 09/06/19 11:47 Lactic Acid Level 1.34 MMOL/L (0.50-2.00) Departure Communication (Admissions) Time/Spoke to Admitting Phy: 11:35 Discussed the case with Dr. Willis and she agrees with cardiac stepdown Time/Spoke to Consulting Phy: 11:30 Discussed the case with Dr. Aponte who is familiar with the patient. He says she has a loop recorder and he will query it. Impression Primary Impression: Symptomatic sinus bradycardia Additional Impressions: Fall Qualified Codes: W19.XXXA - Unspecified fall, initial encounter Bronchitis Disposition: ADMITTED INPATIENT Condition: Stable Admissions Decision to Admit Reason: Admit from ER (General) Decision to Admit/Date: Sep 06, 2019 Time/Decision to Admit Time: 11:30 Departure-Patient Inst. Referrals: JUHI LACY MD (PCP/Family) Primary Care Physician KANDY OLIVEIRA Sep 06, 2019 09:41
--- NOTE | 2019-09-06 09:50 | NUR ---
HR DOWN TO LOW 40"S AND HIGH 50'S DR OLIVEIRA GAVE ORDER TO PLACE ON PACER PATCHES CRASH CART TO ROOM PLACED ON PATCHES. PATIENT HAVING NO SYMPTOMS.
--- NOTE | 2019-09-06 10:27 | Diagnostic Imaging Report ---
HISTORY: Weakness, decreased heart rate. COMPARISON: 08/31/2019 TECHNIQUE: Frontal view of the chest. FINDINGS: Airspace opacities are seen at the right lung base. No pleural effusion or pneumothorax is seen. The cardiac silhouette is mildly prominent. There is an old left midclavicular fracture. There is calcific atherosclerosis. IMPRESSION: 1. Right basilar airspace opacities may represent atelectasis or infiltrate. 2. Mild cardiomegaly. Dictated by: Dictated on workstation # [id number]
[2019-09-06 10:42] LABS: BILIRUBIN,URINE NEGATIVE (NEGATIVE); CLARITY,URINE CLEAR; COLOR,URINE YELLOW; GLUCOSE, URINE (UA) NEGATIVE (NEGATIVE); KETONES,URINE NEGATIVE (NEGATIVE); LEUKOCYTE ESTERASE ,URINE TRACE (NEGATIVE); NITRITE,URINE NEGATIVE (NEGATIVE); PROTEIN,URINE 2+ (NEGATIVE)
[2019-09-06 10:52] LABS: BACTERIA,URINE TRACE /HPF
[2019-09-06 10:53] LABS: AMORPHOUS SEDIMENT,UR RARE AMOR PHOSPHATE /LPF
--- NOTE | 2019-09-06 10:54 | Diagnostic Imaging Report ---
PROCEDURE: CT head and CT cervical spine without contrast. TECHNIQUE: Multiple contiguous axial images were obtained through the brain and cervical spine without the use of intravenous contrast. Sagittal and coronal reformations through the cervical spine were then performed. Auto Exposure Controls were utilized during the CT exam to meet ALARA standards for radiation dose reduction. INDICATION: Found down, possible fall. COMPARISON: The study is compared with CT head of 08/10/2019. FINDINGS: Old left greater than right parieto-occipital cortical encephalomalacia as the sequelae of old insult, likely old infarct, is redemonstrated. Right frontal subcortical and cortical infarct, also chronic and unchanged. Old lacunar infarcts in the thalami and basal ganglia showed no change. No findings of focal or generalized cerebral edema. No evidence for elevated pressures and no intracerebral hemorrhage. There are substantial intracranial atherosclerotic vascular calcifications and a mild degree of background cerebrocortical atrophy without overt hydrocephalus, unchanged. No new abnormality. No calvarial deformity. No paranasal sinus air-fluid level. Cervical spine is compared to 03/22/2019. FINDINGS: Degenerative changes, most advanced at C5-C6 disc space level, are accompanied by slight grade 1 degenerative C5 on C6 retrolisthesis and grade 1 C4 on C5 anterolisthesis, unchanged. No new malalignment. No traumatic malalignment. Advanced degenerative changes to the facets, left greater than right throughout the cervical spine, are greatest at the C4-C5 level. No cervical fracture. No evidence for paravertebral hematoma. The bony skull base appeared intact. IMPRESSION: 1. CT head: Old multifocal ischemic sequelae, unchanged from our previous exam. No hemorrhage, edema, or acute finding. Background atrophy, stable. 2. Cervical spine: Stable multilevel grade 1 degenerative listhesis with moran-cervical spondylosis and facet arthrosis, stable. No fracture. Dictated by: Dictated on workstation # [id number]
--- NOTE | 2019-09-06 11:14 | NUR ---
PATIENT HAS A LOOP RECORDER INTERGRATION DONE.
--- NOTE | 2019-09-06 11:15 | NUR ---
Pastoral care visit.
[2019-09-06 11:32] LABS: ALBUMIN 3.8 GM/DL (3.2-4.5); POTASSIUM 3.9 MMOL/L (3.6-5.0)
[2019-09-06 11:33] LABS: CALCIUM 9.6 MG/DL (8.5-10.1)
[2019-09-06 11:34] LABS: TOTAL PROTEIN 6.7 GM/DL (6.4-8.2)
[2019-09-06 11:36] LABS: BILIRUBIN,TOTAL 0.5 MG/DL (0.1-1.0)
[2019-09-06 11:38] LABS: CREATININE SERUM 1.54 MG/DL (0.60-1.30)
--- NOTE | 2019-09-06 12:00 | NUR ---
LAB HERE TO DRAW 2ND BLOOD CULTURE.
--- NOTE | 2019-09-06 12:15 | NUR ---
TALKED WITH DAUGHTER SHE REPORTS THAT SHE HAS ANALISA HAVING SEIZURES WAS IN ED 2 WEEKS AGO FOR AND STAFF CALLED HER AND SAID SHE HAD ANOTHER ONE AT 4AM EMS CALLED BY PATIENT REFUSED TRANSPORT. ON ARRIVAL TODAY PATIENT ALERT ANSWERS ALL QUESTION. BUT STAFF AT [facility] REPORT SHE HAD ANOTHER SEIZURE.
--- NOTE | 2019-09-06 12:30 | NUR ---
REPORT CALLED WILL CALL WHEN BED READY
--- NOTE | 2019-09-06 12:38 | NUR ---
CALLED AND GAVE UPDATE TO DAUGHTER
--- NOTE | 2019-09-06 12:46 | NUR ---
DR HEATON HERE
--- NOTE | 2019-09-06 13:13 | Consultation-Cardiology ---
HPI-Cardiology Cardiology Consultation Date of Consultation 09/06/19 Date of Admission Time Seen by Provider: 12:50 Indication: Bradycardia HPI Patient is a 74 y/o female with history of CVA, PAF, HTN. Presented to the ER after falling out of bed this morning. Denies any syncope or LOC. Denies any chest pain, dyspnea, dizziness or lightheadedness. Noted to be mildly bradycardic in the ER with HR in the 50's, is asymptomatic at the time. Home Medications & Allergies Allergies: Coded Allergies: donepezil (Verified Allergy, Unknown, disoriented, stroke like symptoms, 03/23/19) fentanyl (Verified Adverse Reaction, Mild, 03/23/19) MAKES HER HALLUCINATE Home Medication List Reviewed: Yes SUY-Jkwgje-Qopysz Hx Patient Social History Employed/Student: retired Alcohol Use: Denies Use Recreational Drug Use: No Type Used: Cigarettes 2nd Hand Smoke Exposure: No Recent Foreign Travel: No Recent Infectious Disease Expo: No Recent Hopitalizations: Yes Immunizations Up To Date Tetanus Booster (TDap): Unknown Date of Pneumonia Vaccine: Mar 23, 2016 Date of Influenza Vaccine: Dec 21, 2018 Past Medical History PAF, HTN, CVA Family Medical History Significant Family History: Cancer, Hypertension, Stroke Family History: FH: CVA (cerebrovascular accident) G8 BROTHER G8 SISTER FH: breast cancer 19 MOTHER FH: cancer 19 FATHER Hypertension 19 MOTHER Review of Systems-General Review of Systems Constitutional: see HPI; No chills, No dizziness, No fever, No malaise, No weakness EENTM: see HPI; No blurred vision, No double vision, No vision loss Respiratory: see HPI; No cough, No dyspnea on exertion, No short of breath Cardiovascular: No chest pain, No edema, No palpitations Gastrointestinal: No abdominal pain, No constipation Musculoskeletal: No back pain, No joint pain Reviewed Test Results Reviewed Test Results Lab Laboratory Tests 09/06/19 09:25: White Blood Count 8.0, Red Blood Count 4.10L, Hemoglobin 12.1, Hematocrit 39, Mean Corpuscular Volume 95, Mean Corpuscular Hemoglobin 30, Mean Corpuscular Hemoglobin Concent 31L, Red Cell Distribution Width 14.7H, Platelet Count 116L, Mean Platelet Volume 11.2H, Neutrophils (%) (Auto) 34L, Lymphocytes (%) (Auto) 58H, Monocytes (%) (Auto) 5, Eosinophils (%) (Auto) 1, Basophils (%) (Auto) 1, Neutrophils # (Auto) 2.8, Lymphocytes # (Auto) 4.6H, Monocytes # (Auto) 0.4, Eosinophils # (Auto) 0.1, Basophils # (Auto) 0.1, Sodium Level 144, Potassium Level 3.9, Chloride Level 109H, Carbon Dioxide Level 21, Anion Gap 14, Blood Urea Nitrogen 16, Creatinine 1.54H, Estimat Glomerular Filtration Rate 33, BUN/Creatinine Ratio 10, Glucose Level 105, Calcium Level 9.6, Corrected Calcium 9.8, Total Bilirubin 0.5, Aspartate Amino Transf (AST/SGOT) 78H, Alanine Aminotransferase (ALT/SGPT) 73H, Alkaline Phosphatase 156H, Troponin I 0.042H, B-Type Natriuretic Peptide 475.9H, Total Protein 6.7, Albumin 3.8, Procalcitonin 0.14H 09/06/19 10:36: Urine Color YELLOW, Urine Clarity CLEAR, Urine pH 8.0, Urine Specific Lula 1.020, Urine Protein 2+H, Urine Glucose (UA) NEGATIVE, Urine Ketones NEGATIVE, Urine Nitrite NEGATIVE, Urine Bilirubin NEGATIVE, Urine Urobilinogen 0.2, Urine Leukocyte Esterase TRACEH, Urine RBC (Auto) NEGATIVE, Urine RBC NONE, Urine WBC 2-5, Urine Squamous Epithelial Cells 2-5, Urine Crystals PRESENTH, Urine Amorphous Sediment RARE RADHA PHOSPHATEH, Urine Bacteria TRACE, Urine Casts NONE, Urine Mucus NEGATIVE, Urine Culture Indicated YES 09/06/19 11:47: Lactic Acid Level 1.34 ECG Impression ECG Initial ECG Rhythm: S.Aprth Physical Exam Physical Exam Vital Signs Vital Signs - First Documented 09/06/19 09/06/19 09/06/19 09:25 11:29 12:30 Temp 36.8 Pulse 71 Resp 18 B/P (MAP) 118/75 (89) Pulse Ox 98 O2 Delivery Room Air O2 Flow Rate 2.00 Capillary Refill : Less Than 3 Seconds Height, Weight, BMI Height: 5'4.00" Weight: 170lbs. 1.6oz. [id number]; 27.00 BMI Method:Stated General Appearance: No Apparent Distress, WD/WN HEENT: PERRL/EOMI, Normal ENT Inspection Neck: Non Tender, Supple Respiratory: Chest Non Tender, Lungs Clear, Normal Breath Sounds, No Accessory Muscle Use, No Respiratory Distress Cardiovascular: Regular Rate, Rhythm, No Edema, No Murmur, Normal Peripheral Pulses Gastrointestinal: Non Tender, Soft A/P-Cardiology Admission Diagnosis s/p fall Bradycardia PAF HTN Assessment/Plan s/p fall out of bed this morning- denies any syncope. Continue to monitor. Bradycardia- LINq interrogation done at bedside reveals no episodes of bradycardia this morning. HR currently in the 50's, currently asymptomatic. I will decrease Toprol XL to 50mg daily, continue to monitor. UTI- management per PCP Peripheral arterial disease, last ALYSA was done in May 2015 and was within normal limits. Continue to monitor. History of multiple CVA, last episode occurred on December 2016. Maintained on aspirin and Plavix. Hypercoagulable state workup has been negative, patient had normal protein C, protein S and, antithrombin III. Her factor V Leiden was normal, in a was less than 1-80, anticardiolipin antibody were negative, factor II mutant was also negative. 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 Most recent 2-D echocardiogram revealed normal EF with dilated left atrium. Atrial fibrillation detected on Linq implantation. Maintained on Xarelto. Paroxysmal atrial fibrillation- mainly short episodes of atrial fibrillation per Linq interrogation. No recent afib on loop recorder. Continue to monitor. Hypertension, restart blood pressure medications and continue to monitor. Hyperlipidemia, lipid profile done in March 2018 showing total cholesterol 166, HDL 60, triglyceride 110, LDL 85. Continue to monitor [id number] showed intermediate metabolizer. Mild bilateral carotid stenosis, last ultrasound was done in December 2017, continue to monitor History of syncope, reporting improvement. No further syncopal episodes were reported History of single kidney with chronic renal insufficiency, followed and monitored by Dr. Travis. History of osteoarthritis, rheumatoid arthritis. History of fibromyalgia. History of depression. Thank you for allowing us to participate in the management of Ms. Welsh. This is Liz Orourke PA-C, as a scribe for Dr. Aponte. Patient was seen and evaluated with Liz, no new complaint, on examination lungs were clear to auscultation bilaterally, heart is regular rate and rhythm. I will continue on current medication, monitor blood pressure and lipids This is a 74-year-old lady with history of CVA, paroxysmal atrial fibrillation and sinus node dysfunction, has been having generalized weakness and loss of energy. Into the emergency room with extreme weakness, questionable seizure activity. It was reported that she had transient episode of bradycardia, review of her telemetry and her loop recorder monitoring showing under sensing of small QRSs which is underestimating the heart rate. Her heart rate is in the range of 50s. Currently heart rate 50s and she is asymptomatic. She is maintained on Toprol-XL 100 mg daily. I will decrease the dose to 50 mg daily. Continue to monitor, monitor blood pressure, monitor her tolerance and response She was noted to have slight elevation in troponin level which could be secondary to underlying coronary artery disease. No previous history of coronary artery disease. We'll consider evaluating stress test as an outpatient. LIZ FORREST Sep 06, 2019 13:13 DOMI APONTE MD Sep 06, 2019 14:55
--- NOTE | 2019-09-06 13:40 | NUR ---
Pt to room at 1320. This RN speaking with pt when pt appeared to have a seizure. This RN protected pt head, timed, and called for help. Seizure lasted 3 minutes. After seizure this RN contacted while two other RNs did an NIH scale. NIH scale of 19. Dr. You ordered CT.
[2019-09-06] MEDS ORDERED: LORazepam INJ 2 MG/ML (ATIVAN) VIAL IVP PRN (14:00)
[2019-09-06] MEDS ORDERED: CATHETER FLUSH 10 ML SYR IV PRN (14:15)
[2019-09-06] MEDS ORDERED: RIVA20TA PO (15:05)
[2019-09-06] MEDS ORDERED: DRON400T2 PO (15:05)
[2019-09-06] MEDS ORDERED: CEFD300C3 PO (15:12)
--- NOTE | 2019-09-06 15:13 | NUR ---
I ENTERED THE MED REC USING THE MAR FROM ANDREW DAMON
[2019-09-06] MEDS ORDERED: ONDANSETRON 4 MG/2 ML (SDV) Z0FRAN IV PRN (15:15)
--- NOTE | 2019-09-06 15:35 | Diagnostic Imaging Report ---
PROCEDURE: CT head wo r/o stroke. TECHNIQUE: Multiple contiguous axial images were obtained through the brain without the use of intravenous contrast. Auto Exposure Controls were utilized during the CT exam to meet ALARA standards for radiation dose reduction. INDICATION: Seizure and confusion. COMPARISON: Correlation is made with prior CT earlier the same day. FINDINGS: Areas of encephalomalacia in left and right parietal occipital lobes and right frontal lobe appears similar to prior exam. Extensive periventricular hypodensities noted consistent with chronic microvascular ischemia. There is no sulcal effacement or midline shift. No acute intra-axial or extra-axial hemorrhage is detected. Cisterns are patent. Visualized paranasal sinuses are clear. IMPRESSION: Stable chronic changes when compared with earlier today. No acute intracranial process is detected. Dictated by: Dictated on workstation # [id number]
[2019-09-06] MEDS: NS IV 1000 ML 1,000 ML IV SCH (16:42)
[2019-09-06] MEDS: LEVETIRACETAM INJECTION 500 MG in NS (IVPB) 100 ML IV SCH ×2 (16:42→20:02)
[2019-09-06] MEDS ORDERED: RIVAROXABAN 20 MG TABLET (XARELTO) PO SCH (17:00)
[2019-09-06] MEDS: ACETAMINOPHEN 500 MG TAB (TYLENOL) PO PRN (18:00)
[2019-09-06] MEDS: GABAPENTIN 300 MG (NEURONTIN) CAP PO SCH (20:01)
[2019-09-06] MEDS: DRONEDARONE TABLET 400 MG TABLET PO SCH (20:01)
--- NOTE | 2019-09-06 21:03 | History & Physical-Hospitalist ---
History of Present Illness HPI/Chief Complaint Chief complaint: New onset seizure History of present illness: This is a 74-year-old white female known to me from multiple hospital stays including stroke with residual hemiparesis who presented after a fall at [facility] where she was just discharged a few days ago from my service in order to obtain more help and 24/7 nursing care. Upon evaluation there were no lab abnormalities or CT scan abnormalities so she was placed in observation but upon arrival to the floor the ICU nurse on cardiac stepdown reported that she became unresponsive and post ictal with severe left-sided weakness more than before. Stat CT scan was repeated no change postictal state resolved and patient was placed on Keppra 500 mg IV every 12 hours to empirically treat a new onset seizure disorder. Daughter at the bedside updated with the plan. Apparently she had had a seizure at [facility] that was witnessed so she was sent to the ER thought it was from weaning off the Effexor that could cause seizure-like activity. It is now clear she now has chronic seizure disorder. Source: family, RN/MD Exam Limitations: clinical condition Date Seen 09/06/19 Time Seen by a Provider: 18:00 Attending Physician Lindsay You DO PCP Augie Weaver MD Referring Physician Date of Admission Sep 06, 2019 at 12:14 Home Medications & Allergies Home Medications Reviewed patient Home Medication Reconciliation performed by pharmacy medication reconciliations it support technician and/or nursing. Patients Allergies have been reviewed. Allergies Allergies Coded Allergies donepezil (Verified Allergy, Unknown, disoriented, stroke like symptoms, 03/23/19) fentanyl (Verified Adverse Reaction, Mild, 03/23/19) MAKES HER HALLUCINATE Past Kqzqqzl-Umjshf-Dgjqla Hx Past Med/Social Hx: Reviewed Nursing Past Med/Soc Hx, Reviewed and Corrections made Patient Social History Marrital Status: single Employed/Student: retired Alcohol Use: Denies Use Recreational Drug Use: No Smoking Status: Former Smoker Former Smoker, Quit: Dec 19, 1986 Type Used: Cigarettes 2nd Hand Smoke Exposure: No Recent Foreign Travel: No Contact w/other who traveled: No Recent Hopitalizations: Yes Recent Infectious Disease Expo: No Immunizations Up To Date Tetanus Booster (TDap): Unknown Pediatric: Yes Date of Pneumonia Vaccine: Mar 23, 2016 Date of Influenza Vaccine: Dec 21, 2018 Seasonal Allergies Seasonal Allergies: Yes Past Medical History Surgeries: Abdominal, Appendectomy, Eye Surgery, Tonsillectomy Currently Using CPAP: No Currently Using BIPAP: No Cardiac: Atrial Fibrillation, Coronary Artery Disease, Heart Murmur, High Cholesterol, Hypertension, Peripheral Vascular, Valvular Heart Disease Hyperlipidemia Neurological: Stroke, TIA 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: No Sexually Transmitted Disease: No HIV/AIDS: No Female 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 Disorders: Denies Menopausal Genitourinary: Renal Failure Gastrointestinal: Gastroesophageal Reflux, Polyps, Hiatal Hernia, Ulcer Musculoskeletal: Arthritis, Fibromyalgia, Rheumatoid Arthritis HEENT: Cataract, Glaucoma Hearing Impairment: Denies Did You Recieve Any Treatments: No Psychosocial: Anxiety, Depression History of Blood Disorders: Yes (ANEMIA) Adverse Reaction to Blood Que[place]o: No Family History FH: CVA (cerebrovascular accident) G8 BROTHER G8 SISTER FH: breast cancer 19 MOTHER FH: cancer 19 FATHER Hypertension 19 MOTHER Cancer, Hypertension, Stroke Review of Systems Constitutional: see HPI, weakness Psychiatric/Neurological: Seizure Physical Exam Physical Exam Vital Signs Vital Signs - First Documented 09/06/19 09/06/19 09/06/19 09:25 11:29 12:30 Temp 36.8 Pulse 71 Resp 18 B/P (MAP) 118/75 (89) Pulse Ox 98 O2 Delivery Room Air O2 Flow Rate 2.00 Capillary Refill : Less Than 3 Seconds Height, Weight, BMI Height: 5'4.00" Weight: 170lbs. 1.6oz. 77.179130ef; 27.53 BMI Method:Stated General Appearance: No Apparent Distress, Chronically ill Eyes: Right Eye Normal Inspection, Right Eye PERRL HEENT: PERRL/EOMI, Normal ENT Inspection, Pharynx Normal, Moist Mucous Membranes Neck: Full Range of Motion, Normal Inspection, Non Tender Respiratory: Chest Non Tender, Lungs Clear, Normal Breath Sounds, No Accessory Muscle Use, No Respiratory Distress Cardiovascular: Regular Rate, Rhythm, No Edema, No Gallop, No JVD, No Murmur, Normal Peripheral Pulses Gastrointestinal: Normal Bowel Sounds, No Organomegaly, No Pulsatile Mass, Non Tender, Soft Back: Normal Inspection, No CVA Tenderness, No Vertebral Tenderness Extremity: Normal Capillary Refill, Normal Inspection, Normal Range of Motion, Non Tender, No Calf Tenderness, No Pedal Edema Neurologic/Psychiatric: Alert, Oriented x3, No Motor/Sensory Deficits (left sided weakness), Normal Mood/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 Assessment/Plan Admission Diagnosis Assessment: New onset seizure Left sided weakness Plan: [facility] Home meds Admission Status: Observation Diagnosis/Problems Diagnosis/Problems (1) Fall Status: Acute Qualifiers: Encounter type: initial encounter Qualified Codes: W19.XXXA - Unspecified fall, initial encounter (2) Seizure Status: Acute Clinical Quality Measures DVT/VTE Risk/Contraindication: Risk Factor Score Per Nursin RFS Level Per Nursing on Admit: 4+=Very High LINDSAY YOU DO Sep 06, 2019 21:03
[2019-09-07] VITALS (12 sets, daily range): BP systolic 123–159; BP diastolic 55–97
[2019-09-07] MEDS: NS IV 1000 ML 1,000 ML IV SCH ×2 (02:39→06:07)
[2019-09-07 03:22] LABS: BASOPHILS % (AUTO) 1 % (0-10); EOSINOPHILS # (AUTO) 0.1 10^3/uL (0.0-0.3); EOSINOPHILS % (AUTO) 1 % (0-10); HEMATOCRIT 34 % (35-52); HEMOGLOBIN 10.6 G/DL (11.5-16.0); LYMPHOCYTES # (AUTO) 4.4 X 10^3 (1.0-4.0); LYMPHOCYTES % (AUTO) 62 % (12-44); MEAN CORPUSCULAR HEMOGLOBIN 30 PG (25-34); MEAN CORPUSCULAR HGB CONC 31 G/DL (32-36); MEAN CORPUSCULAR VOLUME 95 FL (80-99); MEAN PLATELET VOLUME 11.3 FL (7.4-10.4); MONOCYTES # (AUTO) 0.4 X 10^3 (0.0-1.0); MONOCYTES % (AUTO) 5 % (0-12); NEUTROPHILS # (AUTO) 2.2 X 10^3 (1.8-7.8); NEUTROPHILS % (AUTO) 32 % (42-75); PLATELET COUNT 115 10^3/uL (130-400); RED CELL DISTRIBUTION WIDTH 14.6 % (10.0-14.5); WHITE BLOOD COUNT 7.1 10^3/uL (4.3-11.0)
[2019-09-07 03:34] LABS: POTASSIUM 3.7 MMOL/L (3.6-5.0)
[2019-09-07 03:35] LABS: CALCIUM 8.7 MG/DL (8.5-10.1)
[2019-09-07 03:40] LABS: CREATININE SERUM 1.23 MG/DL (0.60-1.30)
[2019-09-07 03:42] LABS: MAGNESIUM 1.9 MG/DL (1.6-2.4)
[2019-09-07 03:55] LABS: PHOSPHORUS 2.6 MG/DL (2.3-4.7)
--- NOTE | 2019-09-07 07:39 | Diagnostic Imaging Report ---
EXAMINATION: Chest radiograph, portable AP view. DATE: 09/07/2019 4:34 AM hours. INDICATION: 74-year-old female, dyspnea. COMPARISON: September 06, 2019. FINDINGS: Heart size and mediastinal contours are unchanged. There are aortic calcifications. There is no identified pneumothorax. There is no large pleural effusion. There is no identified focal airspace consolidation. There is a redemonstrated fracture deformity of the left clavicle. IMPRESSION: 1. No identified acute cardiopulmonary abnormality. Dictated by: Dictated on workstation # [id number]
[2019-09-07] MEDS: DRONEDARONE TABLET 400 MG TABLET PO SCH (08:43)
[2019-09-07] MEDS: LEVETIRACETAM INJECTION 500 MG in NS (IVPB) 100 ML IV SCH (08:43)
[2019-09-07] MEDS: ACETAMINOPHEN 500 MG TAB (TYLENOL) PO PRN (08:44)
[2019-09-07] MEDS: GABAPENTIN 300 MG (NEURONTIN) CAP PO SCH (08:44)
--- NOTE | 2019-09-07 09:38 | Occupational Therapy Eval ---
OT Evaluation-General/PLF Medical Diagnosis Admission Date Sep 06, 2019 at 12:14 Medical Diagnosis: seizures Onset Date: Sep 06, 2019 Therapy Diagnosis Therapy Diagnosis: impaired ADLs/functional mobility Height/Weight Height (Feet): 5 Height (Inches): 4.00 Weight (Pounds): 170 Weight (Ounces): 1.6 Precautions Precautions/Isolations: Seizure, Fall Prevention, Standard Precautions Referral Physician: Kenyatta Referral Reason: Evaluation/Treatment Medical History Pertinent Medical History: Atrial Fib, Arthritis, CAD, CVA, GERD, HTN, PVD, Renal Insufficiency Additional Medical History heart murmur, high cholesterol, peripheral vascular, hyperlipidemia, TIA, RA, fibromyalgia, cataracts/glaucoma, anxiety/depression, anemia Current History Pt to ED due to falling out of bed at [facility] with reports of seizure-like activity. Reviewed History: Yes Social History Home: Assisted Living ([facility]) ADL-Prior Level of Function SCALE: Activities may be completed with or without assistive devices. 9-Adduxrunwv-kvforrf completes the activity by him/herself with no assistance from a helper. 5-Set-up or Clean-up Assistance-helper sets up or cleans up; patient completes activity. [place] assists only prior to or following the activity. 4-Supervision or Touching Assistance-helper provides verbal cues and/or touching/steadying and/or contact guard assistance as patient completes activity. Assistance may be provided throughout the activity or intermittently. 3-Partial/Moderate Assistance-helper does LESS THAN HALF the effort. [place] lifts, holds or supports trunk or limbs, but provides less than half the effort. 2-Substantial/Maximal Assistance-helper does MORE THAN HALF the effort. [place] lifts or holds trunk or limbs and provides more than half the effort. 6-Cqvhtqgcg-ctusaf does ALL the effort. Patient does none of the effort to complete the activity. Or, the assistance of 2 or more helpers is required for the patient to complete the activity. If activity was not attempted, code reason: 7-Patient Refused. 9-Not Applicable-not attempted and the patient did not perform the activity before the current illness, exacerbation or injury. 10-Not Attempted due to Environmental Limitations-(lack of equipment, weather restraints, etc.). 88-Not Attempted due to Medical Conditions or Safety Concerns. ADL PLOF Comments Pt initally reports requiring assistance with all ADLs, but with conversations states she is able to complete all parts of dressing and showering without assistance. The assistance level pt requires is currently unknown at this time. Self Care: Needed Some Help Functional Cognition: Independent DME/Equipment Comments walker OT Current Status Subjective Pt laying in bed, agreeable to OT evaluation. She did not verbalize any pain. Mental Status/Objective Patient Orientation: Person Current Glasses/Contacts: Yes Hearing Aids: No Dentures/Partials: Yes Hand Dominance: Right Upper Extremity Coordination decreased Upper Extremity Sensation intact Upper Extremity Strength decreased ADL-Treatment Eating (QC): 5 (Pt required assistance opening banana) Other Treatments Pt laying in bed. OT educated pt about purpose and benefit of OT, she verbalized understanding. Pt then provided information about PLOF and home set up. Pt lives at the [facility], she initially states she has assistance with all ADLs but with conversation pt reports being able to complete all parts of dressing and bathing without assistance. The assistance level pt requires is currently unknown. Pt's breakfast tray set up at tray table but pt had not ate any prior to session. OT asked pt if she would like any of her breakfast, pt agrees to banana but denies pancakes. OT handed pt the banana but pt reports needing assistance to open it, she states she can open it when she is at home but has to use a knife. OT handed pt the opened banana and pt able to bring it to her mouth and eat. Post OT session, pt laying in bed with HOB slightly elevated, call light in reach and all needs met. Education OT Patient Education: Correct positioning, Energy conservation, Modified ADL te chniques, Progress toward Goal/Update tx plan, Purpose of tx/functional activities Teaching Recipient: Patient Teaching Methods: Discussion Response to Teaching: Verbalize Understanding OT Halfway Goals Cellophane Wrapping Examiner Goals Time Frame: Sep 21, 2019 Eating (QC): 6 Oral Hygiene (QC): 5 Toileting Hygiene (QC): 4 Shower/Bathe Self (QC): 4 Upper Body Dressing (QC): 4 Lower Body Dressing (QC): 4 On/Off Footwear (QC): 4 1=Demonstrate adherence to instructed precautions during ADL tasks. 2=Patient will verbalize/demonstrate understanding of assistive devices/modifications for ADL. 3=Patient will improve strength/tolerance for activity to enable patient to perform ADL's. OT Education/Plan Problem List/Assessment Assessment: Decreased Activ Tolerance, Decreased UE Strength, Impaired I ADL's, Impaired Self-Care Skills Discharge Recommendations Plan/Recommendations: Continue POC Treatment Plan/Plan of Care Treatment,Training & Education: Yes Patient would benefit from OT for education, treatment and training to promote independence in ADL's, mobility, safety and/or upper extremity function for ADL's. Plan of Care: ADL Retraining, Functional Mobility, UE Funct Exercise/Act Treatment Duration: Sep 21, 2019 Frequency: 5 times per week Estimated Hrs Per Day: .25 hour per day Agreement: Yes Rehab Potential: Fair Time/GCodes Start Time: 09:10 Stop Time: 09:18 Total Time Billed (hr/min): 8 Billed Treatment Time 1, KATHERIN ALVAREZ OT Sep 07, 2019 09:38
[2019-09-07] MEDS ORDERED: LEVE500T99 PO (10:29)
[2019-09-07] MEDS ORDERED: ACETAMINOPHEN 325 MG TABLET PO PRN (10:30)
[2019-09-07] MEDS ORDERED: DICLOFENAC 1% GEL 100 GM (VOLTAREN) TUBE TOP PRN (10:30)
--- NOTE | 2019-09-07 10:31 | D/C HH Face to Face Order ---
D/C Face to Face Orders Reconcile Patient Problems Problems Reviewed?: Yes Instructions for Patient Home Health Patient Instructions/FollowUp: [facility] 1 week Physician to follow Patient: [facility] Discharge Diet for Home: Cardiac Diet Patient Problems: New onset seziures CVA hx Goals for Patient: [place] Patient Data-Allergies,Ht & Wt Patient Allergies: Coded Allergies: donepezil (Verified Allergy, Unknown, disoriented, stroke like symptoms, 03/23/19) fentanyl (Verified Adverse Reaction, Mild, 03/23/19) MAKES HER HALLUCINATE Height (Feet): 5 Height (Inches): 4.00 Weight (Pounds): 170 Weight (Ounces): 1.6 Home Health Need/Face to Face Date of Face to Face: Sep 07, 2019 Clinical Findings: Generalized weakness and fatigue, Muscle weakness, Unsteady gait I have seen Pt [id number]: Yes Discharged To: Home Diagnosis/Conditions: New onset seziures CVA hx Patient is Homebound due to: CognItive deficits, William fall risk due to ins tabilty, Muscle weakness Homebound Status Due to the above stated illness, injury or surgical procedure (medical condition or diagnosis) and associated clinical findings, the patient is homebound because of his/her inability to leave home except with aid of a supportive device and/or person AND leaving the home requires a considerable and taxing effort or is medically contraindicated. Pt req the following assistanc: Walker Home Health Nursing Orders Home Health Services Order: Nursing Services, Data Entry-Evaluate & Treat, Physical Therapy-Evaluate & Treat Certify Stmt I certify that this patient is under my care and that I, a nurse practitioner or a physician; a server service assistant working with me, had a face to face encounter that - meets the physician face to face encounter requirements with this patient as dated. SANDY WILLIS DO Sep 07, 2019 10:31
--- NOTE | 2019-09-07 10:33 | Discharge Summary ---
Discharge Summary Hospital Course Was the Problem List Reviewed?: Yes Hospital Course Date of Admission: Sep 06, 2019 at 12:14 Admission Diagnosis : Family Physician/Provider: Augie Weaver MD Date of Discharge: 09/07/19 Discharge Diagnosis: New onset seizure d/o, CVA hx left sided weakness, HTN Hospital Course: Patient had an uneventful hospital course after she was admitted for fall then had a witnessed seizure then confirmed ER visit of a recent seizure thought to be from weaning off Effexor so Keppra was started IV transition to oral therapy patient was deemed stable for discharge to [facility] and all were in agreement with the plan. Labs and Pending Lab Test: Laboratory Tests 09/06/19 10:36: Urine Color YELLOW, Urine Clarity CLEAR, Urine pH 8.0, Urine Specific [place] 1.020, Urine Protein 2+H, Urine Glucose (UA) NEGATIVE, Urine Ketones NEGATIVE, Urine Nitrite NEGATIVE, Urine Bilirubin NEGATIVE, Urine Urobilinogen 0.2, Urine Leukocyte Esterase TRACEH, Urine RBC (Auto) NEGATIVE, Urine RBC NONE, Urine WBC 2-5, Urine Squamous Epithelial Cells 2-5, Urine Crystals PRESENTH, Urine Amorphous Sediment RARE RADHA PHOSPHATEH, Urine Bacteria TRACE, Urine Casts NONE, Urine Mucus NEGATIVE, Urine Culture Indicated YES 09/06/19 11:47: Lactic Acid Level 1.34 09/07/19 03:01: White Blood Count 7.1, Red Blood Count 3.58L, Hemoglobin 10.6L, Hematocrit 34L, Mean Corpuscular Volume 95, Mean Corpuscular Hemoglobin 30, Mean Corpuscular Hemoglobin Concent 31L, Red Cell Distribution Width 14.6H, Platelet Count 115L, Mean Platelet Volume 11.3H, Neutrophils (%) (Auto) 32L, Lymphocytes (%) (Auto) 62H, Monocytes (%) (Auto) 5, Eosinophils (%) (Auto) 1, Basophils (%) (Auto) 1, Neutrophils # (Auto) 2.2, Lymphocytes # (Auto) 4.4H, Monocytes # (Auto) 0.4, Eosinophils # (Auto) 0.1, Basophils # (Auto) 0.0, Sodium Level 143, Potassium Level 3.7, Chloride Level 112H, Carbon Dioxide Level 22, Anion Gap 9, Blood Urea Nitrogen 13, Creatinine 1.23, Estimat Glomerular Filtration Rate 43, BUN/Creatinine Ratio 11, Glucose Level 82, Calcium Level 8.7, Phosphorus Level 2.6, Magnesium Level 1.9 Home Meds Active Keppra (Levetiracetam) 500 Mg Tablet 500 Mg PO BID Reported Cefdinir 300 Mg Capsule 300 Mg PO BID 8 Days FILLED 09-04-2019 #8/4 DAY SUPPLY Multaq (Dronedarone HCl) 400 Mg Tablet 400 Mg PO BID Xarelto (Rivaroxaban) 20 Mg Tablet 20 Mg PO DAILY Protonix (Pantoprazole Sodium) 40 Mg Tablet.dr 40 Mg PO DAILY Neurontin (Gabapentin) 300 Mg Capsule 300 Mg PO BID Pristiq ER (Desvenlafaxine Succinate) 50 Mg Tab.er.24h 50 Mg PO HS Atorvastatin Calcium 80 Mg Tablet 80 Mg PO DAILY Bupropion Xl (Bupropion HCl) 300 Mg Tab.er.24h 300 Mg PO DAILY Diclofenac Sodium 100 Gm Gel..gram. 2 Gm TOP QID PRN Tylenol (Acetaminophen) 325 Mg Tablet 650 Mg PO Q4H PRN Magnesium (Magnesium Oxide) 400 Mg Tablet 400 Mg PO BID Brimonidine Tartrate 5 Ml Btl 1 Drop OU BID Latanoprost 2.5 Ml Drops 1 Drop OU HS Assessment/Pt Instructions [facility] 1 week Discharge Planning: <30 minutes discharge planning Discharge Instructions Discharge Diet: No Restrictions Discharge Physical Examination Vital Signs Vital Signs Date Time Temp Pulse Resp B/P (MAP) Pulse Ox O2 Delivery O2 Flow Rate FiO2 09/07/19 10:00 57 11 125/62 (83) 96 Room Air 09/07/19 07:13 37.1 09/06/19 16:00 2.00 General Appearance: No Apparent Distress, WD/WN, Chronically ill Allergies: Coded Allergies: donepezil (Verified Allergy, Unknown, disoriented, stroke like symptoms, 03/23/19) fentanyl (Verified Adverse Reaction, Mild, 03/23/19) MAKES HER HALLUCINATE Discharge Summary Date of Admission Sep 06, 2019 at 12:14 Date of Discharge Discharge Date: Sep 07, 2019 Clinical Quality Measures DVT/VTE Risk/Contraindication: Risk Factor Score Per Nursin RFS Level Per Nursing on Admit: 4+=Very High SANDY WILLIS DO Sep 07, 2019 10:33
--- NOTE | 2019-09-07 11:02 | Cardiology Progress Note ---
Subjective Date Seen by Provider: Sep 07, 2019 Time Seen by Provider: 11:00 Subjective/Events-last exam Patient is laying down in bed, feeling better, had 3 seizures yesterday and her heart rate has not changed during the seizure or afterward, still in the 50s with stable blood pressure Review of Systems General: No Chills, No Night Sweats; Fatigue, Malaise; No Appetite, No Other HEENT: No Head Aches, No Visual Changes, No Eye Pain, No Ear Pain, No Dysphasia, No Sinus Congestion, No Post Nasal Drip, No Sore Throat, No Other Pulmonary: No Dyspnea, No Cough, No Pleuritic Chest Pain, No Other Cardiovascular: No: Chest Pain, Palpitations, Orthopnea, Paroxysmal Noc. Dyspnea, Edema, Lt Headedness, Other Focused Exam Lactate Level 09/06/19 11:47: Lactic Acid Level 1.34 Objective-Cardiology Exam Last Set of Vital Signs Vital Signs 09/07/19 09/07/19 07:13 10:00 Temp 37.1 Pulse 57 Resp 11 B/P (MAP) 125/62 (83) Pulse Ox 96 O2 Delivery Room Air Capillary Refill : Less Than 3 Seconds I&O Intake and Output 09/07/19 00:00 Intake Total 275 ml Output Total 775 ml Balance -500 ml Intake Oral 175 ml IV Total 100 ml Output Urine Total 775 ml # Bowel Movements 1 Daily Weight Change No General: Alert, Oriented X3, Cooperative HEENT: Atraumatic, PERRLA Neck: Supple, No JVD, No Thyromegaly Lungs: Clear to Auscultation, Normal Air Movement Heart: Regular Rate, Normal S1, Normal S2, No Murmurs Abdomen: Normal Bowel Sounds, Soft, No Tenderness, No Hepatosplenomegaly, No Masses Extremities: No Clubbing, No Cyanosis, No Edema, Normal Pulses, No Tenderness/Swelling Skin: No Rashes, No Breakdown, No Significant Lesion Neuro: Normal Gait, Normal Speech, Strength at 5/5 X4 Ext, Normal Tone, Sensation Intact Psych/Mental Status: Mental Status NL, Mood NL Results Lab Laboratory Tests 09/07/19 03:01 A/P-Cardiology Admission Diagnosis s/p fall Bradycardia PAF HTN Assessment/Plan Recurrent seizure activity, witnessed in the ICU with stable heart rate. Managed by primary care team Bradycardia- LINq interrogation done at bedside reveals no episodes of bradycardia this morning. HR currently in the 50's, currently asymptomatic. I have decrease Toprol to 25 mg daily. Continue to monitor as an outpatient UTI- management per PCP Peripheral arterial disease, last ALYSA was done in May 2015 and was within normal limits. Continue to monitor. History of multiple CVA, last episode occurred on December 2016. Maintained on aspirin and Plavix. Hypercoagulable state workup has been negative, patient had normal protein C, protein S and, antithrombin III. Her factor V Leiden was normal, in a was less than 1-80, anticardiolipin antibody were negative, factor II mutant was also negative. 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 Most recent 2-D echocardiogram revealed normal EF with dilated left atrium. Atrial fibrillation detected on Linq implantation. Maintained on Xarelto. Paroxysmal atrial fibrillation- mainly short episodes of atrial fibrillation per Linq interrogation. No recent afib on loop recorder. Continue to monitor. Hypertension, restart blood pressure medications and continue to monitor. Hyperlipidemia, lipid profile done in March 2018 showing total cholesterol 166, HDL 60, triglyceride 110, LDL 85. Continue to monitor [id number] showed intermediate metabolizer. Mild bilateral carotid stenosis, last ultrasound was done in December 2017, continue to monitor History of syncope, reporting improvement. No further syncopal episodes were reported History of single kidney with chronic renal insufficiency, followed and monitored by Dr. Travis. History of osteoarthritis, rheumatoid arthritis. History of fibromyalgia. History of depression. Clinical Quality Measures DVT/VTE Risk/Contraindication: Risk Factor Score Per Nursin RFS Level Per Nursing on Admit: 4+=Very High DOMI MARTINEZ MD Sep 07, 2019 11:01 am
--- NOTE | 2019-09-07 11:34 | Physical Therapy Evaluation ---
PT Evaluation-General Medical Diagnosis Admission Date Sep 06, 2019 at 12:14 Medical Diagnosis: seizures Onset Date: Sep 06, 2019 Therapy Diagnosis Therapy Diagnosis: debility Height/Weight Height (Feet): 5 Height (Inches): 4.00 Weight (Pounds): 170 Weight (Ounces): 1.6 Precautions Precautions/Isolations: Seizure, Fall Prevention, Standard Precautions Weight Bear Status Right Lower Extremity: Right Weight Bearing/Tolerated Left Lower Extremity: Left Weight Bearing/Tolerated Referral Physician: Kenyatta Reason for Referral: Evaluation/Treatment Medical History Pertinent Medical History: Atrial Fib, Arthritis, CAD, CVA, GERD, HTN, PVD, Renal Insufficiency Current History EMS from [place] secondary to seizure like activity Reviewed History: Yes Social History Home: Assisted Living ([facility]) Prior Prior Level of Function SCALE: Activities may be completed with or without assistive devices. 8-Oimpzyukff-[id number] completes the activity by him/herself with no assistance from a helper. 5-Set-up or Clean-up Assistance-helper sets up or cleans up; patient completes activity. Cassoday assists only prior to or following the activity. 4-Supervision or Touching Assistance-helper provides verbal cues and/or touching/steadying and/or contact guard assistance as patient completes activity. Assistance may be provided throughout the activity or intermittently. 3-Partial/Moderate Assistance-helper does LESS THAN HALF the effort. Cassoday lifts, holds or supports trunk or limbs, but provides less than half the effort. 2-Substantial/Maximal Assistance-helper does MORE THAN HALF the effort. Cassoday lifts or holds trunk or limbs and provides more than half the effort. 7-Mztuamlje-qhhlwp does ALL the effort. Patient does none of the effort to complete the activity. Or, the assistance of 2 or more helpers is required for the patient to complete the activity. If activity was not attempted, code reason: 7-Patient Refused. 9-Not Applicable-not attempted and the patient did not perform the activity before the current illness, exacerbation or injury. 10-Not Attempted due to Environmental Limitations-(lack of equipment, weather restraints, etc.). 88-Not Attempted due to Medical Conditions or Safety Concerns. Bed Mobility: 4 Transfers (B,C,W/C): 4 Gait: 4 Stairs: 9 Indoor Mobility (Ambulation): Needed Some Help Stairs: Not Applicalbe Prior Devices Use: Walker PT Evaluation-Current Subjective Patient agrees to PT. No c/o. Objective Patient Orientation: Confused ROM/Strength ROM Lower Extremities bilateral LE WFL Strength Lower Extremities 3/5 grossly bilateral LE Integumentary/Posture Integumentary refer to nursing notes Bladder Incontinence: Roland Cath Posture slightly kyphotic Neuromuscular (Tone, Coordination, Reflexes) diminished with all Sensory Vision: Functional Hearing: Impaired Hand Dominance: Right Sensation Right Lower Extremit: Intact Sensation Left Lower Extremity: Intact Transfers Roll Left to Right (QC): 3 Lying to Sitting/Side of Bed(Q: 3 Sit to Stand (QC): 3 Chair/Thx-ky-Euwmy Xfer(QC): 3 Gait Does the Patient Walk?: No and Walking Goal IS indicated Mode of Locomotion: Both Anticipated Mode of Locomotion: Both Gait Assistive Device: FWW Balance Sitting Static: Normal Sitting Dynamic: Normal Standing Static: Fair Standing Dynamic: Fair Assessment/Needs 74 y.o. female, upon completing evaluation, will dismiss to [place] on this date with home health PT to address functional strength and mobility. Rehab Potential: Fair PT Plan Treatment/Plan Treatment Plan: Discontinue PT, goals met Treatment Duration: Sep 07, 2019 Frequency: 1 time per week Estimated Hrs Per Day: .25 hour per day Time/GCodes Time In: 1035 Time Out: 1049 Total Billed Treatment Time: 14 Total Billed Treatment 1 visit EVModC 14 min FELICITA SINGH PT Sep 07, 2019 11:34
--- NOTE | 2019-09-07 15:58 | NUR ---
CM/SS for discharge planning. Plan: The patient returned to [facility] with a resumption of home health. Home Health: [facility]. CM/SS contacted them to inform them of patients discharge and a resume on home health orders. CM/SS faxed discharge orders to agency. CM/SS contacted [facility] to inform them of patients planned discharge. She requested this ss to contact the patients daughter for transportation. CM/SS contacted Daniella and informed her of discharge. She verbalized understanding and patient had a garbage pick up man time for 2:00 p.m. CM/SS faxed over discharge to [facility]. No further needs at this time.
[2019-09-07] MEDS ORDERED: LATANOPROST 0.005% (XALATAN) OPHTH SOLN 2.5 ML OU SCH (21:00)
[2019-09-07] MEDS ORDERED: NON-FORMULARY MEDICATION 1 EA EA (Magnesium Oxide (Magnesium) 400 MG) PO SCH (21:00)
[2019-09-07] MEDS ORDERED: BRIMONIDINE 0.2% (ALPHAGAN) OPHTH SOLN 5 ML BTL OU SCH (21:00)
[2019-09-07] MEDS ORDERED: DESVENLAFAXINE SUCC 50 MG (PRISTIQ) TAB NON-FORMULARY PO SCH (21:00)
[2019-09-07] MEDS ORDERED: DRONEDARONE TABLET 400 MG TABLET PO SCH (21:00)
[2019-09-07] MEDS ORDERED: CEFDINIR 300 MG (OMNICEF) CAP PO SCH (21:00)
[2019-09-07] MEDS ORDERED: GABAPENTIN 300 MG (NEURONTIN) CAP PO SCH (21:00)
[2019-09-08] MEDS ORDERED: NON-FORMULARY MEDICATION 1 EA EA (Bupropion HCl (Bupropion Xl) 300 MG) PO SCH (09:00)
[2019-09-08] MEDS ORDERED: PANTOPRAZOLE 40 MG (PROTONIX) TAB PO SCH (09:00)
[2019-09-08] MEDS ORDERED: RIVAROXABAN 20 MG TABLET (XARELTO) PO SCH (09:00)
== END 2019-09-07 15:00 ==
LOC: EDUNIT# 09:23 → ER 09:24 → ICU 12:14 → UNDOADMOB 12:14 → CSD 12:30 → ICU 12:30 → CSD 14:13 → UNDODISOB 09-07 14:45
PROVIDERS: ADMIT Internal Medicine; ATTEND Internal Medicine
DX: R56.9 Unspecified convulsions (principal); I63.9 Cerebral infarction, unspecified; G81.94 Hemiplegia, unspecified affecting left nondominant side; E78.00 Pure hypercholesterolemia, unspecified; I48.0 Paroxysmal atrial fibrillation; I73.9 Peripheral vascular disease, unspecified; K21.9 Gastro-esophageal reflux disease without esophagitis; M06.9 Rheumatoid arthritis, unspecified; F32.9 Major depressive disorder, single episode, unspecified; F41.9 Anxiety disorder, unspecified; D64.9 Anemia, unspecified; I12.9 Hypertensive chronic kidney disease with stage 1 through stage 4 chronic kidney disease, or unspecified chronic kidney disease; N18.9 Chronic kidney disease, unspecified; Z79.02 Long term (current) use of antithrombotics/antiplatelets; Z79.891 Long term (current) use of opiate analgesic; Z79.899 Other long term (current) drug therapy; Z88.8 Allergy status to other drugs, medicaments and biological substances; Z79.01 Long term (current) use of anticoagulants; Z87.891 Personal history of nicotine dependence
CPT/HCPCS: 36415; 70450; 71045; 72125; 80048; 80053; 81000; 83605; 83735; 83880; 84100; 84145; 84484; 85025; 87040; 87081; 87088; 93005; G0378

== ENCOUNTER → 2020-03-24 | Outpatient (CLI) | payer MEDICARE ==
[~2020-03-24] MED LIST changes: +ALPR.25T PO; -ALPR0.254 PO; +AMLO-250 PO; +AMLO-251 PO; -AMLO10TA7 PO; -AMLO5TAB9 PO; +ASPI-1238 PO; -ASPI-983 PO; +BAMLANIVIMAB 700 MG in NS 200 ML IV ONE; +EPINEPHrine INJECTION 1 MG/ML AMP IM PRN; +LEVE500T99 PO; -MONT10TA26 PO; +MONT10TA97 PO; -PANT40TA3 PO; +PANT40TA52 PO; +diphenhydrAMINE 50 MG/ML INJ (BENADRYL) IV PRN
[2020-03-24 13:49] VITALS: BP 118/70
[2020-03-24 14:58] VITALS: BP 130/55
[2020-03-24 15:53] VITALS: BP 137/60
== END ==
LOC: INFUSION 13:43
PROVIDERS: ATTEND Nurse Practitioner Community Health
DX: U07.1 COVID-19 (principal)

== ENCOUNTER 2020-07-06 14:27 | Emergency (ER) | payer MEDICARE ==
[~2020-07-06] VITALS: Ht 162 cm; Wt 74.0 kg
[~2020-07-06 14:27] MED LIST changes: -BAMLANIVIMAB 700 MG in NS 200 ML IV ONE; -EPINEPHrine INJECTION 1 MG/ML AMP IM PRN; +MONT10TA32 PO; -MONT10TA97 PO; -POLY17PO31 PO; +POLY17PO54 PO; -diphenhydrAMINE 50 MG/ML INJ (BENADRYL) IV PRN
--- NOTE | 2020-07-06 14:58 | ED Fall/Injury ---
General Chief Complaint: Trauma-Non Activation Stated Complaint: FALL Nursing Triage Note: FELL TRYING TO GET TO THIS AM AT APPX 1130. NO LOC. DAUGHTER THINKS HER PUPILS ARE NOT REACTING THE WAY SHE SHOULD. Source: patient Exam Limitations: no limitations History of Present Illness Date Seen by Provider: Jul 06, 2020 Time Seen by Provider: 14:42 Initial Comments Patient presents ER by private conveyance with her daughter with chief complaint that she had a unwitnessed fall at the assisted living home where she lives. She was trying to get up out of her chair which is a constant issue with her since she has dementia with some hallucinations. She states she did strike her head and had a little bit of tenderness on her left frontal scalp at the hairline however there is no knot there and she said her pain is better. She is having some tenderness in her neck as well and was given some Voltaren gel and since then her pain has gone away. She took some Tylenol earlier today. The fall was about an hour or so ago. She is not having cough fever chills nausea vomiting shortness of air loss of consciousness dysuria diarrhea or constipation. She is on Xarelto. Allergies and Home Medications Allergies Coded Allergies: donepezil (Verified Allergy, Unknown, disoriented, stroke like symptoms, 03/23/19) fentanyl (Verified Adverse Reaction, Mild, 03/23/19) MAKES HER HALLUCINATE Home Medications Acetaminophen 325 Mg Tablet, 650 MG PO Q4H PRN for PAIN-MILD, (Reported) Atorvastatin Calcium 80 Mg Tablet, 80 MG PO DAILY, (Reported) Brimonidine Tartrate 5 Ml Btl, 1 DROP OU BID, (Reported) Bupropion HCl 300 Mg Tab.er.24h, 300 MG PO DAILY, (Reported) Cefdinir 300 Mg Capsule, 300 MG PO BID, (Reported) FILLED 09-04-2019 #8/4 DAY SUPPLY Desvenlafaxine Succinate 50 Mg Tab.er.24h, 50 MG PO HS, (Reported) Diclofenac Sodium 100 Gm Gel..gram., 2 GM TOP QID PRN for JOINT PAIN, (Reported) Dronedarone HCl 400 Mg Tablet, 400 MG PO BID, (Reported) Gabapentin 300 Mg Capsule, 300 MG PO BID, (Reported) Latanoprost 2.5 Ml Drops, 1 DROP OU HS, (Reported) Levetiracetam 500 Mg Tablet, 500 MG PO BID Prescribed by: SANDY WILLIS on 09/07/19 1029 Magnesium Oxide 400 Mg Tablet, 400 MG PO BID, (Reported) Pantoprazole Sodium 40 Mg Tablet.dr, 40 MG PO DAILY, (Reported) Rivaroxaban 20 Mg Tablet, 20 MG PO DAILY, (Reported) Patient Home Medication List Home Medication List Reviewed: Yes Review of Systems Review of Systems Constitutional: No chills, No diaphoresis Eyes: Denies Blindness, Denies Drainage, Denies Decreased Acuity Ears, Nose, Mouth, Throat: denies ear pain, denies ear discharge Respiratory: No cough, No short of breath Cardiovascular: No edema, No Hx of Intervention Gastrointestinal: No abdominal pain, No nausea, No vomiting Musculoskeletal: No back pain, No joint pain All Other Systems Reviewed Negative Unless Noted: Yes Past Cxjuifw-Hvgftn-Sudjfa Hx Patient Social History Alcohol Use: Denies Use Smoking Status: Former Smoker Type Used: Cigarettes Former Smoker, Quit: Dec 19, 1986 2nd Hand Smoke Exposure: No Recent Infectious Disease Expo: No Recent Hopitalizations: Yes Immunizations Up To Date Tetanus Booster (TDap): Unknown PED Vaccines UTD: Yes Date of Pneumonia Vaccine: Mar 23, 2016 Date of Influenza Vaccine: Dec 21, 2018 Seasonal Allergies Seasonal Allergies: Yes Past Medical History Surgeries: Yes (LOOP RECORDER; JAW SURGERY; HIATAL HERNIA REPAIR X 2;BILAT CATARACTS;DENTAL) Abdominal, Appendectomy, Eye Surgery, Tonsillectomy Respiratory: Yes (CHRONIC DYSPNEA ON EXERTION) Currently Using CPAP: No Currently Using BIPAP: No Cardiac: Yes (LOOP RECORDER IN PLACE;PERIPHERAL VASCULAR DZ;CAROTID DZ;CLAUDICATION) Atrial Fibrillation, Coronary Artery Disease, Heart Murmur, High Cholesterol, Hypertension, Peripheral Vascular, Valvular Heart Disease Neurological: Yes (MULTIPLE CVA'S--AT LEAST 5 OR 6 CVA'S WITH LEFT SIDE WEAKNESS) Stroke, TIA 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 Disorders: No Female 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 Disorders: 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: Menopausal Sexually Transmitted Disease: No HIV/AIDS: No Genitourinary: Yes (BLADDER CONTROL PROBLEMS; CHRONIC RENAL FAILUR E/INSUFFICIENCY) Renal Failure Gastrointestinal: Yes (HIATAL HERNIA SURGERY X 2; EGD/COLONOSCOPY) Gastroesophageal Reflux, Polyps, Hiatal Hernia, Ulcer Musculoskeletal: Yes Arthritis, Fibromyalgia, Rheumatoid Arthritis Endocrine: No HEENT: Yes (BILATERAL CATARACT SURGERY) Cataract, Glaucoma Hearing Impairment: Denies Cancer: No Did You Recieve Any Treatments: No Psychosocial: Yes Anxiety, Depression Integumentary: No Blood Disorders: Yes (ANEMIA) Adverse Reaction/Blood Tranf: No Family Medical History FH: CVA (cerebrovascular accident) G8 BROTHER G8 SISTER FH: breast cancer 19 MOTHER FH: cancer 19 FATHER Hypertension 19 MOTHER Cancer, Hypertension, Stroke Physical Exam Vital Signs Vital Signs - First Documented 07/06/20 14:40 Temp 35.7 Pulse 80 Resp 16 Pulse Ox 96 O2 Delivery Room Air Capillary Refill : Less Than 3 Seconds Height, Weight, BMI Height: 5'4.00" Weight: 170lbs. 1.6oz. [id number]; 28.00 BMI Method:Stated General Appearance: no apparent distress, other (Left-sided chronic deficits with kyphosis) HEENT: PERRL/EOMI (2 mm reactive), normal ENT inspection (Negative for forde sign or hemotympanum. Negative for raccoon eyes or overt trauma mild tenderness at the hairline on the left frontal scalp), TMs normal, pharynx normal Neck: full range of motion, normal inspection Cardiovascular: normal peripheral pulses, regular rate, rhythm Respiratory: no respiratory distress, no accessory muscle use Gastrointestinal: normal bowel sounds, non tender, soft Neurologic/Psychiatric: alert, normal mood/affect, oriented x 3 Skin: normal color, warm/dry George Coma Score Best Eye Response: (4) Open Spontaneously Best Verbal Response: (5) Oriented Best Motor Response: (6) Obeys Commands [place] Total: 15 Progress/Results/Core Measures Results/Orders Lab Results Laboratory Tests Test 07/06/20 15:45 07/06/20 17:32 Range/Units White Blood Count 8.2 4.3-11.0 10^3/uL Red Blood Count 4.51 3.80-5.11 10^6/uL Hemoglobin 13.5 11.5-16.0 g/dL Hematocrit 42 35-52 % Mean Corpuscular Volume 94 80-99 fL Mean Corpuscular Hemoglobin 30 25-34 pg Mean Corpuscular Hemoglobin Concent 32 32-36 g/dL Red Cell Distribution Width 13.5 10.0-14.5 % Platelet Count 113 L 130-400 10^3/uL Mean Platelet Volume 10.0 9.0-12.2 fL Immature Granulocyte % (Auto) 0 % Neutrophils (%) (Auto) 59 42-75 % Lymphocytes (%) (Auto) 32 12-44 % Monocytes (%) (Auto) 7 0-12 % Eosinophils (%) (Auto) 2 0-10 % Basophils (%) (Auto) 0 0-10 % Neutrophils # (Auto) 4.8 1.8-7.8 X 10^3 Lymphocytes # (Auto) 2.6 1.0-4.0 X 10^3 Monocytes # (Auto) 0.6 0.0-1.0 X 10^3 Eosinophils # (Auto) 0.1 0.0-0.3 10^3/uL Basophils # (Auto) 0.0 0.0-0.1 10^3/uL Immature Granulocyte # (Auto) 0.0 0.0-0.1 10^3/uL Sodium Level 141 135-145 MMOL/L Potassium Level 4.3 3.6-5.0 MMOL/L Chloride Level 109 H 98-107 MMOL/L Carbon Dioxide Level 22 21-32 MMOL/L Anion Gap 10 5-14 MMOL/L Blood Urea Nitrogen 28 H 7-18 MG/DL Creatinine 2.38 H 0.60-1.30 MG/DL Estimat Glomerular Filtration Rate 20 BUN/Creatinine Ratio 12 Glucose Level 93 70-105 MG/DL Calcium Level 9.8 8.5-10.1 MG/DL Corrected Calcium 9.6 8.5-10.1 MG/DL Total Bilirubin 0.5 0.1-1.0 MG/DL Aspartate Amino Transf (AST/SGOT) 38 H 5-34 U/L Alanine Aminotransferase (ALT/SGPT) 48 0-55 U/L Alkaline Phosphatase 117 40-136 U/L Total Protein 7.2 6.4-8.2 GM/DL Albumin 4.2 3.2-4.5 GM/DL Urine Color YELLOW Urine Clarity CLEAR Urine pH 7.5 5-9 Urine Specific [place] 1.010 L 1.016-1.022 Urine Protein NEGATIVE NEGATIVE Urine Glucose (UA) NEGATIVE NEGATIVE Urine Ketones NEGATIVE NEGATIVE Urine Nitrite NEGATIVE NEGATIVE Urine Bilirubin NEGATIVE NEGATIVE Urine Urobilinogen 0.2 < = 1.0 MG/DL Urine Leukocyte Esterase 1+ H NEGATIVE Urine RBC (Auto) TRACE-I NEGATIVE Urine RBC RARE /HPF Urine WBC 0-2 /HPF Urine Squamous Epithelial Cells RARE /HPF Urine Crystals NONE /LPF Urine Bacteria NEGATIVE /HPF Urine Casts NONE /LPF Urine Mucus NEGATIVE /LPF Urine Culture Indicated NO My Orders Orders - KANDY OLIVEIRA Cbc With Automated Diff (07/06/20 14:51) Comprehensive Metabolic Panel (07/06/20 14:51) Ua Culture If Indicated (07/06/20 14:51) Ct Head/Cervical Spine Wo (07/06/20 14:51) Ed Iv/Invasive Line Start (07/06/20 16:28) Ns Iv 1000 Ml (Sodium Chloride 0.9%) (07/06/20 16:30) Ns Iv 1000 Ml (Sodium Chloride 0.9%) (07/06/20 16:21) Vital Signs/I&O 07/06/20 14:40 Temp 35.7 Pulse 80 Resp 16 B/P (MAP) Pulse Ox 96 O2 Delivery Room Air Progress Progress Note #1: Time: 15:[address] of the head and C-spine some basic labs and urinalysis. No overt trauma. Mentation seems to be at baseline with her chronic residual left-sided deficits from a stroke. Progress Note #2: Time: 16:25 Progress Note The patient still comfortable however her creatinine has doubled BUN is 28 she looks dry. Stage 1 DARY based on +50% over baseline 1.5 Cr. She is taking oral fluids. She was not able to urinate she said she urinated before coming in. We did a straight cath and there is nothing in her bladder. Like to give her a liter of IV fluids improved she can produce urine. Suspect that she is just dehydrated due to having a residual deficits from a stroke and being wheelchair- bound and probably poor access to drinking water. Progress Note #3: Time: 17:51 Progress Note Straight cath produced 300 cc of urine after a liter of fluids. Patient is comfortable and ready to go home. We will have her follow-up with primary care for labs later in the week. Diagnostic Imaging Diagonstic Imaging: CT Plain Films/CT/US/NM/MRI: c-spine, head Comments NAME: DANIELA WORLEY MED REC#: [id number] PT STATUS: REG ER : 1945 PHYSICIAN: KANDY OLIVEIRA MD ADMIT DATE: 07/06/20/ER Signed Date of Exam:07/06/20 CT HEAD/CERVICAL SPINE WO EXAMINATION: CT head and CT cervical spine without contrast. TECHNIQUE: Multiple contiguous axial images were obtained through the brain and cervical spine without the use of intravenous contrast. Sagittal and coronal reformations through the cervical spine were then performed. All CT scans use one or more of the following dose optimizing techniques: automated exposure control, MA and/or KvP adjustment based on a patient size and exam type, or iterative reconstruction. HISTORY: Fall onto head and neck with pain. COMPARISON: CT head from 09/06/2019, CT cervical spine from 09/06/2019. FINDINGS: HEAD: Mild diffuse cerebral volume loss with proportional enlargement of the ventricles and sulci. Moderate hypodensities throughout the supratentorial white matter posterior hemispheres. Chronic infarcts of the right frontal, left temporoparietal, and right parietal lobes compared to 09/06/2019. No acute intracranial hemorrhage or abnormal extra-axial fluid collections are present. Calcification of the intracranial ICAs. No hyperdense vessel. The calvarium is intact. The mastoid air cells are clear. The visualized paranasal sinuses are clear. Surgical changes from bilateral cataract repair. C-SPINE: There is mild anterolisthesis of C4 on C5. Vertebral body heights are maintained. No acute fracture, dislocation, or destructive osseous process. Multilevel facet hypertrophy. No perched facets. There is multilevel cervical spondylosis. The paraspinous soft tissues are normal. The visualized thyroid gland is normal. The visualized lung apices are normal. IMPRESSION: 1. No acute intracranial abnormality. Multifocal chronic infarcts and background chronic microangiopathy and volume loss, unchanged from 09/06/2019. 2. Multilevel degenerative changes of the cervical spine without acute osseous abnormality. Dictated by: Dictated on workstation # [id number] Dict: 07/06/20 1537 Trans: 07/06/20 1608 [id number] [id number] Interpreted by: DAVID GAMING DO Electronically signed by: DAVID GAMING DO 07/06/20 1608 Reviewed: Reviewed by Me Departure Impression Primary Impression: Fall Qualified Codes: W19.XXXA - Unspecified fall, initial encounter Additional Impressions: Dehydration DARY (acute kidney injury) Disposition: 01 HOME, SELF-CARE Condition: Stable Departure-Patient Inst. Decision time for Depature: 17:45 Referrals: JUHI LACY MD (PCP/Family) Primary Care Physician Patient Instructions: Dehydration, Adult (DC) Add. Discharge Instructions: Encourage extra fluid intake. Follow-up in the next 1 to 2 weeks for repeat labs with primary care. Return to ER for further worsening symptoms. All discharge instructions reviewed with patient and/or family. Voiced underst anding. Copy Copies To 1: JUHI LACY MD, TITUS J Jul 06, 2020 14:58
[2020-07-06 15:53] LABS: BASOPHILS % (AUTO) 0 % (0-10); EOSINOPHILS # (AUTO) 0.1 10^3/uL (0.0-0.3); EOSINOPHILS % (AUTO) 2 % (0-10); HEMATOCRIT 42 % (35-52); HEMOGLOBIN 13.5 g/dL (11.5-16.0); LYMPHOCYTES # (AUTO) 2.6 X 10^3 (1.0-4.0); LYMPHOCYTES % (AUTO) 32 % (12-44); MEAN CORPUSCULAR HEMOGLOBIN 30 pg (25-34); MEAN CORPUSCULAR HGB CONC 32 g/dL (32-36); MEAN CORPUSCULAR VOLUME 94 fL (80-99); MONOCYTES # (AUTO) 0.6 X 10^3 (0.0-1.0); MONOCYTES % (AUTO) 7 % (0-12); NEUTROPHILS # (AUTO) 4.8 X 10^3 (1.8-7.8); NEUTROPHILS % (AUTO) 59 % (42-75); PLATELET COUNT 113 10^3/uL (130-400); WHITE BLOOD COUNT 8.2 10^3/uL (4.3-11.0)
--- NOTE | 2020-07-06 15:59 | Diagnostic Imaging Report ---
EXAMINATION: CT head and CT cervical spine without contrast. TECHNIQUE: Multiple contiguous axial images were obtained through the brain and cervical spine without the use of intravenous contrast. Sagittal and coronal reformations through the cervical spine were then performed. All CT scans use one or more of the following dose optimizing techniques: automated exposure control, MA and/or KvP adjustment based on a patient size and exam type, or iterative reconstruction. HISTORY: Fall onto head and neck with pain. COMPARISON: CT head from 09/06/2019, CT cervical spine from 09/06/2019. FINDINGS: HEAD: Mild diffuse cerebral volume loss with proportional enlargement of the ventricles and sulci. Moderate hypodensities throughout the supratentorial white matter posterior hemispheres. Chronic infarcts of the right frontal, left temporoparietal, and right parietal lobes compared to 09/06/2019. No acute intracranial hemorrhage or abnormal extra-axial fluid collections are present. Calcification of the intracranial ICAs. No hyperdense vessel. The calvarium is intact. The mastoid air cells are clear. The visualized paranasal sinuses are clear. Surgical changes from bilateral cataract repair. C-SPINE: There is mild anterolisthesis of C4 on C5. Vertebral body heights are maintained. No acute fracture, dislocation, or destructive osseous process. Multilevel facet hypertrophy. No perched facets. There is multilevel cervical spondylosis. The paraspinous soft tissues are normal. The visualized thyroid gland is normal. The visualized lung apices are normal. IMPRESSION: 1. No acute intracranial abnormality. Multifocal chronic infarcts and background chronic microangiopathy and volume loss, unchanged from 09/06/2019. 2. Multilevel degenerative changes of the cervical spine without acute osseous abnormality. Dictated by: Dictated on workstation # [id number]
[2020-07-06 16:03] LABS: ALBUMIN 4.2 GM/DL (3.2-4.5); POTASSIUM 4.3 MMOL/L (3.6-5.0)
[2020-07-06 16:04] LABS: CALCIUM 9.8 MG/DL (8.5-10.1)
[2020-07-06 16:06] LABS: TOTAL PROTEIN 7.2 GM/DL (6.4-8.2)
[2020-07-06 16:07] LABS: BILIRUBIN,TOTAL 0.5 MG/DL (0.1-1.0)
[2020-07-06 16:09] LABS: CREATININE SERUM 2.38 MG/DL (0.60-1.30)
[2020-07-06] MEDS ORDERED: NS IV 1000 ML 1,000 ML ONE (16:21)
[2020-07-06] MEDS ORDERED: NS IV 1000 ML 1,000 ML IV SCH (16:30)
[2020-07-06 17:40] LABS: BILIRUBIN,URINE NEGATIVE (NEGATIVE); CLARITY,URINE CLEAR; COLOR,URINE YELLOW; GLUCOSE, URINE (UA) NEGATIVE (NEGATIVE); KETONES,URINE NEGATIVE (NEGATIVE); LEUKOCYTE ESTERASE ,URINE 1+ (NEGATIVE); NITRITE,URINE NEGATIVE (NEGATIVE); PH,URINE 7.5 (5-9); PROTEIN,URINE NEGATIVE (NEGATIVE)
[2020-07-06 17:49] LABS: BACTERIA,URINE NEGATIVE /HPF; RBC,URINE RARE /HPF; SQUAMOUS EPITHELIAL CELL,UR RARE /HPF; WBC,URINE 0-2 /HPF
[2020-07-06] MEDS ORDERED: ACETAMINOPHEN 325 MG TABLET ONE (17:54)
[2020-07-06 18:07] VITALS: BP 148/74
[2020-07-06] MEDS ORDERED: ACETAMINOPHEN 325 MG TABLET PO ONE (18:15)
== END 2020-07-06 18:07 | disposition home or self-care (01) ==
LOC: EDUNIT# 14:27 → ER 14:29
DX: N17.9 Acute kidney failure, unspecified (principal); E86.0 Dehydration; R51.9 Headache, unspecified; M40.209 Unspecified kyphosis, site unspecified; I12.9 Hypertensive chronic kidney disease with stage 1 through stage 4 chronic kidney disease, or unspecified chronic kidney disease; N18.9 Chronic kidney disease, unspecified; I48.91 Unspecified atrial fibrillation; I25.10 Atherosclerotic heart disease of native coronary artery without angina pectoris; F03.90 Unspecified dementia, unspecified severity, without behavioral disturbance, psychotic disturbance, mood disturbance, and anxiety; F41.9 Anxiety disorder, unspecified; F32.9 Major depressive disorder, single episode, unspecified; E78.00 Pure hypercholesterolemia, unspecified; K21.9 Gastro-esophageal reflux disease without esophagitis; Z87.891 Personal history of nicotine dependence; Z86.73 Personal history of transient ischemic attack (TIA), and cerebral infarction without residual deficits; Z79.01 Long term (current) use of anticoagulants; Z95.810 Presence of automatic (implantable) cardiac defibrillator; Z88.5 Allergy status to narcotic agent; Z88.8 Allergy status to other drugs, medicaments and biological substances; W18.30XA Fall on same level, unspecified, initial encounter; Y92.219 Unspecified school as the place of occurrence of the external cause
CPT/HCPCS: 36415; 51701; 70450; 72125; 80053; 81000; 85025

== ENCOUNTER → 2020-08-08 | Outpatient (CLI) | payer MEDICARE ==
[~2020-08-08] MED LIST changes: -DRON400T2 PO; +DRON400T6 PO
--- NOTE | 2020-08-08 15:05 | Diagnostic Imaging Report ---
PROCEDURE: US Renal Bilateral. TECHNIQUE: Multiple real-time grayscale images were obtained over the kidneys in various projections bilaterally. INDICATION: Chronic kidney disease stage IV. FINDINGS: Right kidney measures 8.0 x 4.3 x 3.2 cm and left kidney measures 8.4 x 3.7 x 4.7 cm. Renal cortices show some increased echogenicity consistent with medical renal disease. There is a small cyst versus a slightly dilated calyx in the midportion of the right kidney. No definite hydronephrosis is seen on either side. There are no calculi. Right ureteral jet in the urinary bladder was visualized. Left ureteral jet was not visualized. IMPRESSION: Findings consistent with medical renal disease. There is no evidence of hydronephrosis. Dictated by: Dictated on workstation # [id number]
== END ==
LOC: RAD 13:06
PROVIDERS: ATTEND Internal Medicine Nephrology
DX: N18.4 Chronic kidney disease, stage 4 (severe) (principal)
CPT/HCPCS: 76770

== ENCOUNTER 2022-02-19 18:05 | Emergency (ER) | payer MEDICARE ==
[~2022-02-19] VITALS: Ht 165.1 cm; Wt 68.0 kg
[~2022-02-19 18:05] MED LIST changes: -BETH25TA PO; +BETH25TA2 PO; +BUPR-105 PO; -BUPR150T14 PO; +DICL100G13 TOP; -DICL100G31 TOP; +MONT-40 PO; -MONT10TA32 PO; +TIZA-186 PO; -TIZA4TAB4 PO
[2022-02-19 18:33] LABS: BILIRUBIN,URINE NEGATIVE (NEGATIVE); CLARITY,URINE CLEAR; COLOR,URINE YELLOW; GLUCOSE, URINE (UA) NEGATIVE (NEGATIVE); KETONES,URINE NEGATIVE (NEGATIVE); LEUKOCYTE ESTERASE ,URINE NEGATIVE (NEGATIVE); NITRITE,URINE NEGATIVE (NEGATIVE); PH,URINE 5.5 (5-9); PROTEIN,URINE NEGATIVE (NEGATIVE)
[2022-02-19 18:41] LABS: BASOPHILS % (AUTO) 0 % (0-10); EOSINOPHILS # (AUTO) 0.2 10^3/uL (0.0-0.3); EOSINOPHILS % (AUTO) 2 % (0-10); HEMATOCRIT 45 % (35-52); HEMOGLOBIN 14.7 g/dL (11.5-16.0); LYMPHOCYTES # (AUTO) 2.9 10^3/uL (1.0-4.0); LYMPHOCYTES % (AUTO) 34 % (12-44); MEAN CORPUSCULAR HEMOGLOBIN 30 pg (25-34); MEAN CORPUSCULAR HGB CONC 33 g/dL (32-36); MEAN CORPUSCULAR VOLUME 93 fL (80-99); MEAN PLATELET VOLUME 10.8 fL (9.0-12.2); MONOCYTES # (AUTO) 0.5 10^3/uL (0.0-1.0); MONOCYTES % (AUTO) 6 % (0-12); NEUTROPHILS # (AUTO) 4.9 10^3/uL (1.8-7.8); NEUTROPHILS % (AUTO) 58 % (42-75); PLATELET COUNT 104 10^3/uL (130-400); WHITE BLOOD COUNT 8.5 10^3/uL (4.3-11.0)
--- NOTE | 2022-02-19 18:42 | ED General ---
General Chief Complaint: General Problems/Pain Stated Complaint: GENERAL COMPLAINTS Nursing Triage Note: PT TO ROOM 10 VIA [facility] WITH NO C/O OF ANY PROBLEM. PT SENT FROM ASSISTED LIVING FACILITY BY FAMILY. PT HAD STATED THAT PT HAD NOT BEEN URINATING. PT STATES SHE HAS BEEN URINATING PER HER NORMAL. FAMILY STATES PT BLOOD PRESSURE IS LOW. PT BLOOD PRESSURE PER EMS OF 109/59. PT BLOOD PRESSURE UPON ARRIVAL OF 100/60. PT STATES SHE IS UNSURE WHY FAMILY WANTED HER TO COME TO ED. Source of Information: Patient, EMS, [facility] Records, RN/MD Exam Limitations: No Limitations History of Present Illness Date Seen by Provider: Feb 19, 2022 Time Seen by Provider: 18:11 Initial Comments 77yoF with PMH of chronic respiratory failure on 2L O2, CKD, CVA with residual left sided weakness, pAfib on Eliquis, anxiety, depression coming in via EMS from her assisted living facility due to her being COVID-positive as of today with some cough and urinary retention. The patient states she is urinated twice today and has no complaints at this time. Per the residential, the patient sometimes is lucid, sometimes does not, but they just wanted to get her checked out. She denies any chest pain, shortness of breath, abdominal pain, nausea, vomiting, diarrhea, new focal weakness or numbness, headache, vision changes, or any other concerns. She states she has been eating and drinking normally. Allergies and Home Medications Allergies Coded Allergies: donepezil (Verified Allergy, Unknown, disoriented, stroke like symptoms, 03/23/19) fentanyl (Verified Adverse Reaction, Mild, 03/23/19) MAKES HER HALLUCINATE Patient Home Medication List Home Medication List Reviewed: Yes Acetaminophen (Tylenol) 325 Mg Tablet, 650 MG PO Q4H PRN for PAIN-MILD, (Reported) Entered as Reported by: SAIRA RENEE on 07/17/18 1609 Atorvastatin Calcium (Atorvastatin Calcium) 80 Mg Tablet, 80 MG PO DAILY, (Reported) Entered as Reported by: ARON ALVARADO on 09/01/19 0753 Brimonidine Tartrate (Brimonidine Tartrate) 5 Ml Btl, 1 DROP OU BID, (Reported) Entered as Reported by: SELENE BROWNING on 04/30/18 0920 Bupropion HCl (Bupropion Xl) 300 Mg Tab.er.24h, 300 MG PO DAILY, (Reported) Entered as Reported by: SAIRA RENEE on 03/23/19 1145 Cefdinir (Cefdinir) 300 Mg Capsule, 300 MG PO BID, (Reported) Entered as Reported by: SAMINA PARHAM on 09/06/19 1512 Desvenlafaxine Succinate (Pristiq ER) 50 Mg Tab.er.24h, 50 MG PO HS, (Reported) Entered as Reported by: ARON ALVARADO on 09/01/19 0753 Diclofenac Sodium (Diclofenac Sodium) 100 Gm Gel..gram., 2 GM TOP QID PRN for JOINT PAIN, (Reported) Entered as Reported by: SAIRA RENEE on 01/01/19 0940 Dronedarone HCl (Multaq) 400 Mg Tablet, 400 MG PO BID, (Reported) Entered as Reported by: SAMINA PARHAM on 09/06/19 1505 Gabapentin (Neurontin) 300 Mg Capsule, 300 MG PO BID, (Reported) Entered as Reported by: SAMINA PARHAM on 09/03/19 0920 Latanoprost (Latanoprost) 2.5 Ml Drops, 1 DROP OU HS, (Reported) Entered as Reported by: BRYNN POLLARD on 04/29/18 1250 Levetiracetam (Keppra) 500 Mg Tablet, 500 MG PO BID Prescribed by: SANDY WILLIS on 09/07/19 1029 Magnesium Oxide (Magnesium) 400 Mg Tablet, 400 MG PO BID, (Reported) Entered as Reported by: SAIRA RENEE on 05/01/18 0921 Pantoprazole Sodium (Protonix) 40 Mg Tablet.dr, 40 MG PO DAILY, (Reported) Entered as Reported by: SAMINA PARHAM on 09/03/19 0922 Rivaroxaban (Xarelto) 20 Mg Tablet, 20 MG PO DAILY, (Reported) Entered as Reported by: SAMINA PARHAM on 09/06/19 1505 Review of Systems Review of Systems Constitutional: No fever EENTM: No nose congestion Respiratory: cough Cardiovascular: No chest pain Gastrointestinal: No abdominal pain Genitourinary: see HPI Musculoskeletal: no symptoms reported Skin: no symptoms reported Psychiatric/Neurological: No Symptoms Reported Hematologic/Lymphatic: No Symptoms Reported Immunological/Allergic: no symptoms reported All Other Systems Reviewed Negative Unless Noted: Yes Past Jimqbwj-Jtexok-Vblwzv Hx Patient Social History Tobacco Use?: No Smoking Status: Never a Smoker Smokeless Tobacco Frequency: Never a User Use of E-Cig and/or Vaping dev: No Use of E-Cig and/or Vaping Rashi: Never a User Substance use?: No Alcohol Use?: No Pt feels they are or have been: No Immunizations Up To Date Tetanus Booster (TDap): Unknown PED Vaccines UTD: Yes COVID19 Vaccine Foreclosure Field Inspector: femeninasA Seasonal Allergies Seasonal Allergies: Yes Past Medical History Surgeries: Yes (LOOP RECORDER; JAW SURGERY; HIATAL HERNIA REPAIR X 2;BILAT CATARACTS;DENTAL) Abdominal, Appendectomy, Eye Surgery, Tonsillectomy Respiratory: Yes (CHRONIC DYSPNEA ON EXERTION) Currently Using CPAP: No Currently Using BIPAP: No Cardiac: Yes (LOOP RECORDER IN PLACE;PERIPHERAL VASCULAR DZ;CAROTID DZ;CLAUDICATION) Atrial Fibrillation, Coronary Artery Disease, Heart Murmur, High Cholesterol, Hypertension, Peripheral Vascular, Valvular Heart Disease Neurological: Yes (MULTIPLE CVA'S--AT LEAST 5 OR 6 CVA'S WITH LEFT SIDE WEAKNESS) Stroke, TIA 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 Disorders: No Female 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 Disorders: Denies 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 Sexually Transmitted Disease: No HIV/AIDS: No Genitourinary: Yes (BLADDER CONTROL PROBLEMS; CHRONIC RENAL FAILURE/INSUFFICIENCY) Renal Failure Gastrointestinal: Yes (HIATAL HERNIA SURGERY X 2; EGD/COLONOSCOPY) Gastroesophageal Reflux, Polyps, Hiatal Hernia, Ulcer Musculoskeletal: Yes Arthritis, Fibromyalgia, Rheumatoid Arthritis Endocrine: No HEENT: Yes (BILATERAL CATARACT SURGERY) Cataract, Glaucoma Hearing Impairment: Denies Cancer: No Did You Recieve Any Treatments: No Psychosocial: Yes Anxiety, Depression Integumentary: No Blood Disorders: Yes (ANEMIA) Adverse Reaction/Blood Tranf: No Family Medical History FH: CVA (cerebrovascular accident) G8 BROTHER G8 SISTER FH: breast cancer 19 MOTHER FH: cancer 19 FATHER Hypertension 19 MOTHER Cancer, Hypertension, Stroke Physical Exam Vital Signs Vital Signs - First Documented 02/19/22 18:05 Temp 36.5 Pulse 50 Resp 15 B/P (MAP) 100/60 (73) O2 Delivery Room Air Capillary Refill : Less Than 3 Seconds Height, Weight, BMI Height: 5'4.00" Weight: 170lbs. 1.6oz. [id number]; 24.00 BMI Method:Stated General Appearance: No Apparent Distress, WD/WN Eyes: Bilateral Eye Normal Inspection HEENT: PERRL/EOMI, Normal ENT Inspection, Pharynx Normal Neck: Full Range of Motion, Normal Inspection, Non Tender, Supple Respiratory: Chest Non Tender, Lungs Clear, Normal Breath Sounds, No Accessory Muscle Use, No Respiratory Distress Cardiovascular: Regular Rate, Rhythm, No Edema, Normal Peripheral Pulses Gastrointestinal: Normal Bowel Sounds, Non Tender, Soft; No Distended, No Guarding Back: Normal Inspection, No CVA Tenderness Extremity: Normal Capillary Refill, Normal Inspection, Normal Range of Motion, Non Tender, No Calf Tenderness, No Pedal Edema Neurologic/Psychiatric: Alert, Oriented x3, Normal Mood/Affect, Other (left sided weakness at baseline) Skin: Normal Color, Warm/Dry Lymphatic: No Adenopathy Progress/Results/Core Measures Suspected Sepsis SIRS Temperature: Pulse: 50 Respiratory Rate: 15 Laboratory Tests 02/19/22 18:31: White Blood Count 8.5 Blood Pressure 100 /60 Mean: 73 Laboratory Tests 02/19/22 18:31: Creatinine 2.69H, Platelet Count 104L, Total Bilirubin 0.6 Results/Orders Lab Results Laboratory Tests Test 02/19/22 18:27 02/19/22 18:31 Range/Units Urine Color YELLOW Urine Clarity CLEAR Urine pH 5.5 5-9 Urine Specific Stryker 1.020 1.016-1.022 Urine Protein NEGATIVE NEGATIVE Urine Glucose (UA) NEGATIVE NEGATIVE Urine Ketones NEGATIVE NEGATIVE Urine Nitrite NEGATIVE NEGATIVE Urine Bilirubin NEGATIVE NEGATIVE Urine Urobilinogen 0.2 < = 1.0 MG/DL Urine Leukocyte Esterase NEGATIVE NEGATIVE Urine RBC (Auto) NEGATIVE NEGATIVE Urine RBC NONE /HPF Urine WBC RARE /HPF Urine Squamous Epithelial Cells 0-2 /HPF Urine Crystals NONE /LPF Urine Bacteria NEGATIVE /HPF Urine Casts NONE /LPF Urine Mucus NEGATIVE /LPF Urine Culture Indicated NO White Blood Count 8.5 4.3-11.0 10^3/uL Red Blood Count 4.87 3.80-5.11 10^6/uL Hemoglobin 14.7 11.5-16.0 g/dL Hematocrit 45 35-52 % Mean Corpuscular Volume 93 80-99 fL Mean Corpuscular Hemoglobin 30 25-34 pg Mean Corpuscular Hemoglobin Concent 33 32-36 g/dL Red Cell Distribution Width 12.4 10.0-14.5 % Platelet Count 104 L 130-400 10^3/uL Mean Platelet Volume 10.8 9.0-12.2 fL Immature Granulocyte % (Auto) 0 % Neutrophils (%) (Auto) 58 42-75 % Lymphocytes (%) (Auto) 34 12-44 % Monocytes (%) (Auto) 6 0-12 % Eosinophils (%) (Auto) 2 0-10 % Basophils (%) (Auto) 0 0-10 % Neutrophils # (Auto) 4.9 1.8-7.8 10^3/uL Lymphocytes # (Auto) 2.9 1.0-4.0 10^3/uL Monocytes # (Auto) 0.5 0.0-1.0 10^3/uL Eosinophils # (Auto) 0.2 0.0-0.3 10^3/uL Basophils # (Auto) 0.0 0.0-0.1 10^3/uL Immature Granulocyte # (Auto) 0.0 0.0-0.1 10^3/uL Sodium Level 137 135-145 MMOL/L Potassium Level 4.1 3.6-5.0 MMOL/L Chloride Level 107 98-107 MMOL/L Carbon Dioxide Level 18 L 21-32 MMOL/L Anion Gap 12 5-14 MMOL/L Blood Urea Nitrogen 29 H 7-18 MG/DL Creatinine 2.69 H 0.60-1.30 MG/DL Estimat Glomerular Filtration Rate 18 BUN/Creatinine Ratio 11 Glucose Level 206 H 70-105 MG/DL Calcium Level 9.0 8.5-10.1 MG/DL Corrected Calcium 9.3 8.5-10.1 MG/DL Total Bilirubin 0.6 0.1-1.0 MG/DL Aspartate Amino Transf (AST/SGOT) 21 5-34 U/L Alanine Aminotransferase (ALT/SGPT) 14 0-55 U/L Alkaline Phosphatase 95 40-136 U/L Total Protein 6.5 6.4-8.2 GM/DL Albumin 3.6 3.2-4.5 GM/DL My Orders Orders - DYLAN MAKI MD Cbc With Automated Diff (02/19/22 18:21) Comprehensive Metabolic Panel (02/19/22 18:21) Ua Culture If Indicated (02/19/22 18:21) Chest 1 View, Ap/Pa Only (02/19/22 18:21) Ed Iv/Invasive Line Start (02/19/22 18:32) Ns Iv 500 Ml (Sodium Chloride 0.9%) (02/19/22 19:07) Vital Signs/I&O 02/19/22 02/19/22 18:05 18:05 Temp 36.5 Pulse 50 Resp 15 B/P (MAP) 100/60 (73) O2 Delivery Room Air Room Air Capillary Refill : Less Than 3 Seconds Blood Pressure Mean: 73 Progress Note : Progress Note 77-year-old female with above history coming in for a checkup from the residential due to their concerns for less urination. Patient states she is urinated a couple times today, its always possible they just were unaware of this. We did a straight cath when she arrived here and she had good urine output as well with no signs of infection. Chest x-ray with potential infiltrate, she does have COVID, and in the absence of fever and any respiratory complaints at this time, we will forego antibiotic treatment at this time. She does have a mild DAYR on her CKD. We will gently give her some IV fluids. She is otherwise tolerating p.o. She is already on Paxlovid for COVID. I believe she stable for discharge with outpatient follow-up. She was sent home with strict return precautions. Of note, I contacted the patient's daughter who is the patient's documented DPOA and discussed the case with her as well. Diagnostic Imaging Diagonstic Imaging: Xray (chest) Comments NAME: DANIELA [facility]LEY [facility] REC#: [id number] PT STATUS: REG ER : 1945 PHYSICIAN: DYLAN MAKI MD ADMIT DATE: 02/19/22/ER Draft Date of Exam:02/19/22 CHEST 1 VIEW, AP/PA ONLY HISTORY: Shortness of breath and COVID positive. TECHNIQUE: Frontal view of the chest. COMPARISON: 09/07/2019. FINDINGS: Lung volumes are mildly low. There is hazy airspace opacity in the right upper lobe. There is no pleural effusion or pneumothorax. There is stable mild cardiomegaly with a residential monitor device. There is aortic atherosclerosis. IMPRESSION: 1. Hazy airspace opacity in the right upper lobe may be due to infection. Dictated on workstation # [id number] Dict: 02/19/22 1841 Trans: 02/19/22 1845 [id number] Interpreted by: RUBENS TEJADA MD Electronically signed by: Departure Impression Primary Impression: Acute kidney injury superimposed on CKD Additional Impression: COVID-19 Disposition: 01 HOME, SELF-CARE Condition: Stable Departure-Patient Inst. Decision time for Depature: 19:40 Referrals: JUHI LACY MD (PCP/Family) Primary Care Physician Patient Instructions: COVID-19 ED, Chronic Kidney Disease Add. Discharge Instructions: Her kidney function today is very similar to prior, only slightly worse. She got some IV fluids in the ER to help with this. She was making urine in the ER and it does not appear infected. DYLAN MAKI MD Feb 19, 2022 18:41
[2022-02-19 18:43] LABS: BACTERIA,URINE NEGATIVE /HPF; SQUAMOUS EPITHELIAL CELL,UR 0-2 /HPF; WBC,URINE RARE /HPF
--- NOTE | 2022-02-19 18:46 | Diagnostic Imaging Report ---
HISTORY: Shortness of breath and COVID positive. TECHNIQUE: Frontal view of the chest. COMPARISON: 09/07/2019. FINDINGS: Lung volumes are mildly low. There is hazy airspace opacity in the right upper lobe. There is no pleural effusion or pneumothorax. There is stable mild cardiomegaly with a quality assurance monitor final device. There is aortic atherosclerosis. IMPRESSION: 1. Hazy airspace opacity in the right upper lobe may be due to infection. Dictated by: Dictated on workstation # [id number]
[2022-02-19 18:48] LABS: ALBUMIN 3.6 GM/DL (3.2-4.5); POTASSIUM 4.1 MMOL/L (3.6-5.0)
[2022-02-19 18:50] LABS: TOTAL PROTEIN 6.5 GM/DL (6.4-8.2)
[2022-02-19 18:52] LABS: BILIRUBIN,TOTAL 0.6 MG/DL (0.1-1.0)
[2022-02-19 18:54] LABS: CREATININE SERUM 2.69 MG/DL (0.60-1.30)
[2022-02-19] MEDS ORDERED: NS IV 500 ML 500 ML IV STA (19:07)
[2022-02-19 19:43] VITALS: BP 102/61
== END 2022-02-19 19:43 | disposition home or self-care (01) ==
LOC: EDUNIT# 18:05 → ER 18:06
DX: U07.1 COVID-19 (principal); N17.9 Acute kidney failure, unspecified; I12.9 Hypertensive chronic kidney disease with stage 1 through stage 4 chronic kidney disease, or unspecified chronic kidney disease; N18.9 Chronic kidney disease, unspecified; J96.10 Chronic respiratory failure, unspecified whether with hypoxia or hypercapnia; I48.0 Paroxysmal atrial fibrillation; Z79.01 Long term (current) use of anticoagulants; Z99.81 Dependence on supplemental oxygen
CPT/HCPCS: 36415; 71045; 80053; 81000; 85025

== ENCOUNTER 2022-12-10 09:53 | Emergency (ER) | payer MEDICARE ==
[~2022-12-10] VITALS: Ht 155 cm; Wt 50.0 kg
[~2022-12-10 09:53] MED LIST changes: +BRIM5DRO3 OU; -BRIMON0.2 OU; -DICL100G13 TOP; +DICL100G60 TOP
--- NOTE | 2022-12-10 10:00 | ED Head Injury ---
General Chief Complaint: Head/Cervical Problems Stated Complaint: FALL | HEAD INJ Nursing Triage Note: PT TO [facility] BY [facility] WITH CC OF FALLING OUT OF BED, HIT HER HEAD, LARGE HEMATOMA ABOVE RT EYE, HX OF DEMENTIA, PT IS AT BASELINE, DAUGHTER ON HER WAY History of Present Illness Date Seen by Provider: Dec 10, 2022 Time Seen by Provider: 09:58 Initial Comments 77-year-old female fell out of bed this morning. She has a history of dementia and is at her baseline. She has a hematoma over her forehead/frontal scalp. Patient is on Eliquis. Patient daughter wanted her sent out to be evaluated due to the Eliquis and head injury. Allergies and Home Medications Allergies Coded Allergies: donepezil (Verified Allergy, Unknown, disoriented, stroke like symptoms, 03/23/19) fentanyl (Verified Adverse Reaction, Mild, 03/23/19) MAKES HER HALLUCINATE Patient Home Medication List Home Medication List Reviewed: Yes Acetaminophen (Tylenol) 325 Mg Tablet, 650 MG PO Q4H PRN for PAIN-MILD, (Reported) Entered as Reported by: SAIRA RENEE on 07/17/18 1609 Atorvastatin Calcium (Atorvastatin Calcium) 80 Mg Tablet, 80 MG PO DAILY, (Reported) Entered as Reported by: ARON ALVARADO on 09/01/19 0753 Brimonidine Tartrate (Brimonidine Tartrate) 5 Ml Btl, 1 DROP OU BID, (Reported) Entered as Reported by: SELENE BROWNING on 04/30/18 0920 Bupropion HCl (Bupropion Xl) 300 Mg Tab.er.24h, 300 MG PO DAILY, (Reported) Entered as Reported by: SAIRA RENEE on 03/23/19 1145 Cefdinir (Cefdinir) 300 Mg Capsule, 300 MG PO BID, (Reported) Entered as Reported by: SAMINA PARHAM on 09/06/19 1512 Desvenlafaxine Succinate (Pristiq ER) 50 Mg Tab.er.24h, 50 MG PO HS, (Reported) Entered as Reported by: ARON ALVARADO on 09/01/19 0753 Diclofenac Sodium (Diclofenac Sodium) 100 Gm Gel..gram., 2 GM TOP QID PRN for JOINT PAIN, (Reported) Entered as Reported by: SAIRA RENEE on 01/01/19 0940 Dronedarone HCl (Multaq) 400 Mg Tablet, 400 MG PO BID, (Reported) Entered as Reported by: SAMINA PARHAM on 09/06/19 1505 Gabapentin (Neurontin) 300 Mg Capsule, 300 MG PO BID, (Reported) Entered as Reported by: SAMINA PARHAM on 09/03/19 0920 Latanoprost (Latanoprost) 2.5 Ml Drops, 1 DROP OU HS, (Reported) Entered as Reported by: BRYNN POLLARD on 04/29/18 1250 Levetiracetam (Keppra) 500 Mg Tablet, 500 MG PO BID Prescribed by: SANDY WILLIS on 09/07/19 1029 Magnesium Oxide (Magnesium) 400 Mg Tablet, 400 MG PO BID, (Reported) Entered as Reported by: SAIRA RENEE on 05/01/18 0921 Pantoprazole Sodium (Protonix) 40 Mg Tablet.dr, 40 MG PO DAILY, (Reported) Entered as Reported by: SAMINA PARHAM on 09/03/19 0922 Rivaroxaban (Xarelto) 20 Mg Tablet, 20 MG PO DAILY, (Reported) Entered as Reported by: SAMINA PARHAM on 09/06/19 1505 Review of Systems Review of Systems Constitutional: no symptoms reported Eyes: No Symptoms Reported Respiratory: no symptoms reported Cardiovascular: no symptoms reported Genitourinary: no symptoms reported Skin: see HPI Psychiatric/Neurological: No Symptoms Reported Past Tnvoidf-Jvaqiq-Jncsff Hx Immunizations Up To Date Tetanus Booster (TDap): Unknown PED Vaccines UTD: Yes Seasonal Allergies Seasonal Allergies: Yes Past Medical History Surgeries: Yes (LOOP RECORDER; JAW SURGERY; HIATAL HERNIA REPAIR X 2;BILAT CATARACTS;DENTAL) Abdominal, Appendectomy, Eye Surgery, Tonsillectomy Respiratory: Yes (CHRONIC DYSPNEA ON EXERTION) Currently Using CPAP: No Currently Using BIPAP: No Cardiac: Yes (LOOP RECORDER IN PLACE;PERIPHERAL VASCULAR DZ;CAROTID DZ;JEFFRY ICATION) Atrial Fibrillation, Coronary Artery Disease, Heart Murmur, High Cholesterol, Hypertension, Peripheral Vascular, Valvular Heart Disease Neurological: Yes (MULTIPLE CVA'S--AT LEAST 5 OR 6 CVA'S WITH LEFT SIDE WEAKNESS) Stroke, TIA 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 Disorders: No Female 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 Disorders: Denies 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 Sexually Transmitted Disease: No HIV/AIDS: No Genitourinary: Yes (BLADDER CONTROL PROBLEMS; CHRONIC RENAL FAILURE/INSUFFICIENCY) Renal Failure Gastrointestinal: Yes (HIATAL HERNIA SURGERY X 2; EGD/COLONOSCOPY) Gastroesophageal Reflux, Polyps, Hiatal Hernia, Ulcer Musculoskeletal: Yes Arthritis, Fibromyalgia, Rheumatoid Arthritis Endocrine: No HEENT: Yes (BILATERAL CATARACT SURGERY) Cataract, Glaucoma Hearing Impairment: Denies Cancer: No Did You Recieve Any Treatments: No Psychosocial: Yes Anxiety, Depression Integumentary: No Blood Disorders: Yes (ANEMIA) Adverse Reaction/Blood Tranf: No Family Medical History FH: CVA (cerebrovascular accident) G8 BROTHER G8 SISTER FH: breast cancer 19 MOTHER FH: cancer 19 FATHER Hypertension 19 MOTHER Cancer, Hypertension, Stroke Physical Exam Vital Signs Vital Signs - First Documented 12/10/22 09:54 Temp 36.9 Pulse 84 Resp 18 B/P (MAP) 194/104 (134) Pulse Ox 97 O2 Delivery Room Air Capillary Refill : Height, Weight, BMI Height: 5'4.00" Weight: 170lbs. 1.6oz. 77.111225ct; 20.00 BMI Method:Stated General Appearance: WD/WN, no apparent distress HEENT: PERRL/EOMI Cardiovascular: normal peripheral pulses, regular rate, rhythm Respiratory: lungs clear, normal breath sounds Extremities: normal range of motion Psychiatric: alert, other (At baseline) Crainal Nerves: normal hearing, normal speech Skin: other (Frontal hematoma) Progress/Results/Core Measures Results/Orders My Orders Orders - CECI DIAZ DO Ct Head Wo (12/10/22 10:00) Vital Signs/I&O 12/10/22 09:54 Temp 36.9 Pulse 84 Resp 18 B/P (MAP) 194/104 (134) Pulse Ox 97 O2 Delivery Room Air Blood Pressure Mean: 134 Progress Progress Note : Progress Note Patient's patient's imaging was ordered by me and discussed critical findings with radiologist Dr. Renee. Patient has a small subdural hematoma. She is on Eliquis. Patient will require further monitoring in the hospital. Patient to be transferred to [facility] with accepting neurologist Dr. De Santiago and accepting ER physician Dr. Shore. Patient has no focal deficits and is at her baseline. Patient to be transferred in stable condition by EMS. Diagnostic Imaging Diagonstic Imaging: CT Plain Films/CT/US/NM/MRI: head Comments Date of Exam:12/10/22 CT HEAD WO PROCEDURE: CT head without contrast. TECHNIQUE: Multiple contiguous axial images were obtained through the brain without the use of intravenous contrast. Auto Exposure Controls were utilized during the CT exam to meet ALARA standards for radiation dose reduction. INDICATION: Trauma to the head. Hematoma. Dementia. Anticoagulated patient. COMPARISON: 07/06/2020. FINDINGS: There is small focus of subdural hemorrhage along the inferior margins of the anterior falx. There is no significant associated mass effect or midline shift. Ventricles and cortical sulci are otherwise moderately diffusely prominent consistent with underlying age-related parenchymal volume loss. Scattered old infarcts are also noted, greatest involving the left parieto-occipital lobe. There is also involvement of the right parietal lobe and convexity of the posterior right frontal lobe. There is no new large area of loss of moore-white matter junction differentiation to suggest new evolving acute territorial infarct. Background chronic small vessel ischemic changes are also noted. Moderate-sized supraorbital hematoma is noted on the right. Underlying bony calvarium is intact. Paranasal sinuses and mastoid air cells are clear. IMPRESSION: 1. Small focus of acute subdural hemorrhage as above. No significant mass effect or midline shift. 2. Redemonstration of background age-related parenchymal volume loss, chronic small vessel ischemic changes, and multiple old infarcts. 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 Shore excepting ER and Dr. De Santiago excepting neurosurgery Transfer Facility: [facility] Method of Transfer: EMS Departure-Patient Inst. Referrals: JUHI LACY MD (PCP/Family) Primary Care Physician CECI DIAZ DO Dec 10, 2022 10:00
--- NOTE | 2022-12-10 10:54 | Diagnostic Imaging Report ---
PROCEDURE: CT head without contrast. TECHNIQUE: Multiple contiguous axial images were obtained through the brain without the use of intravenous contrast. Auto Exposure Controls were utilized during the CT exam to meet ALARA standards for radiation dose reduction. INDICATION: Trauma to the head. Hematoma. Dementia. Anticoagulated patient. COMPARISON: 07/06/2020. FINDINGS: There is small focus of subdural hemorrhage along the inferior margins of the anterior falx. There is no significant associated mass effect or midline shift. Ventricles and cortical sulci are otherwise moderately diffusely prominent consistent with underlying age-related parenchymal volume loss. Scattered old infarcts are also noted, greatest involving the left parieto-occipital lobe. There is also involvement of the right parietal lobe and convexity of the posterior right frontal lobe. There is no new large area of loss of moore-white matter junction differentiation to suggest new evolving acute territorial infarct. Background chronic small vessel ischemic changes are also noted. Moderate-sized supraorbital hematoma is noted on the right. Underlying bony calvarium is intact. Paranasal sinuses and mastoid air cells are clear. IMPRESSION: 1. Small focus of acute subdural hemorrhage as above. No significant mass effect or midline shift. 2. Redemonstration of background age-related parenchymal volume loss, chronic small vessel ischemic changes, and multiple old infarcts. Results were called to Dr. West by Dr. Renee at 1045 hours on 12/10/2022. Dictated by: Dictated on workstation # [id number]
[2022-12-10 16:23] VITALS: BP 164/87
== END 2022-12-10 16:14 | disposition short-term general hospital (02) ==
LOC: EDUNIT# 09:53 → ER 09:54
DX: S06.5XAA Traumatic subdural hemorrhage with loss of consciousness status unknown, initial encounter (principal); Z79.01 Long term (current) use of anticoagulants; W06.XXXA Fall from bed, initial encounter; W22.8XXA Striking against or struck by other objects, initial encounter
CPT/HCPCS: 70450